=== PATIENT | female | born 1940 | race Caucasian/White ===

== ENCOUNTER 2020-03-03 14:09 | Outpatient (REF) | payer MEDICARE, OTHER, SELFPAY ==
[2020-03-03 14:50] LABS: MANUAL DIFF FLAG NO
[2020-03-03 14:52] LABS: Basophils Percent Auto 0.8 % (0-2); Eosinophils Absolute Auto 0.2 X10*3/uL (0.0-0.4); Eosinophils Percent Auto 4.6 % (0-4); Hematocrit 35.2 % (37-47); Imm Gran Abs Auto 0.02 X10*3/uL (0.00-0.03); Imm Gran Pct Auto 0.4 % (0.0-0.4); Immature Retic Fraction 12.9 % (3.0-15.9); Lymphocytes Absolute Auto 1.4 X10*3/uL (1.2-4.9); Lymphocytes Percent Auto 27.5 % (20-40); Mean Corpuscular HGB Conc 31.3 g/dl (31.0-35.0); Mean Corpuscular Hemoglobin 28.5 pg (27.0-33.0); Mean Corpuscular Volume 91.2 fL (80-98); Mean Platelet Volume 10.2 fL (9.4-12.3); Monocytes Absolute Auto 0.5 X10*3/uL (0.1-1.2); Monocytes Percent Auto 10.2 % (2-11); Neutrophils Absolute Auto 2.8 X10*3/uL (2.0-8.3); Neutrophils Percent Auto 56.5 % (45-73); Platelet Count 179 X10*3/uL (160-400); Red Blood Count 3.86 X10*6/uL (4.20-5.50); Red Cell Distribution Width 15.3 % (11.0-16.0); Retic HGB Equivalent 31.2 pg (30.0-35.0); Reticulocyte Percent 1.3 % (0.5-1.8); Reticulocytes Absolute 0.051 X10*6/uL (0.026-0.095)
[2020-03-03 15:17] LABS: Alanine Aminotransferase < 6 U/L (0-31); Albumin Level 3.6 g/dL (3.5-5.0); Alkaline Phosphatase 97 U/L (39-117); Anion Gap 12 (12-20); Aspartate Amino Transferase 11 U/L (5-31); Bilirubin Total 0.5 mg/dL (0.0-1.0); Blood Urea Nitrogen 18 mg/dL (9-16); Calcium 8.8 mg/dL (8.4-10.2); Carbon Dioxide 28 mmol/L (22-29); Chloride 105 mmol/L (96-108); Cholesterol 178 mg/dL; Estimated Glomerular Filt Rate > 60; Glucose Random 135 mg/dL (60-115); HDL Cholesterol 44 mg/dL; Iron 37 mcg/dL (30-160); LDL Cholesterol Calculated 94 mg/dl; Percent Iron Saturation 14 % (15-50); Potassium 4.1 mmol/l (3.3-5.1); Sodium 141 mmol/L (135-145); Total Iron Binding Capacity 259 mcg/dL (228-428); Total Protein 7.8 g/dL (6.5-8.0); Triglycerides 200 mg/dL; Unsaturated Iron Binding 222 ug/dL
[2020-03-03 15:23] LABS: Estimated Average Glucose 117 mg/dL; Hemoglobin A1c % 5.7 %
[2020-03-03 15:35] LABS: Ferritin 65 ng/mL (10-250); Free T4 (Free Thyroxine) 1.24 ng/dL (0.71-1.85); Thyroid Stimulating Hormone 0.93 uIU/mL (0.32-4.0); Vitamin D 25-OH Total 15.2 ng/mL (>30)
[2020-03-03 15:45] LABS: Folate 11.5 ng/mL (> or = 4.0); Vitamin B12 228 pg/mL (200-900)
== END 2020-03-03 14:10 | disposition home or self-care (01) ==
LOC: HO.LAB 14:09
PROVIDERS: PCP Internal Medicine; Visit Provider Internal Medicine
DX: E11.65 Type 2 diabetes mellitus with hyperglycemia (principal); D64.9 Anemia, unspecified; E78.00 Pure hypercholesterolemia, unspecified; I48.0 Paroxysmal atrial fibrillation
CPT/HCPCS: 36415; 80053; 80061; 82306; 82607; 82728; 82746; 83036; 83540; 84439; 84443; 85025; 85045

== ENCOUNTER 2020-05-16 20:56 | Inpatient (IN) | payer MEDICARE, OTHER, SELFPAY ==
--- NOTE | 2020-05-16 | ECG_ITS ---
Test Reason : SOB Blood Pressure : / mmHG Vent. Rate : 107 BPM Atrial Rate : 093 BPM P-R Int : 000 ms QRS Dur : 138 ms QT Int : 334 ms P-R-T Axes : 000 100 -42 degrees QTc Int : 445 ms Atrial fibrillation with rapid ventricular response Right bundle branch block T wave abnormality, consider inferior ischemia Abnormal ECG When compared with ECG of 09-SEP-2019 10:15, Vent. rate has increased BY 38 BPM Referred By: Moo Magaña Electronically Signed By:Carmelo Andrews
--- NOTE | ~2020-05-16 | XR_ITS ---
EXAMINATION: XR CHEST CLINICAL INFORMATION: Shortness of breath COMPARISON: 07/30/2018 TECHNIQUE: Frontal view of the chest was obtained. FINDINGS: Again seen is cardiomegaly. Central pulmonary vasculature remains prominent. There are increased interstitial markings compared with the prior exam and increased peribronchial cuffing. These may represent CHF with interstitial edema. However, I would suspect pleural effusions might be present which I do not see. Other findings such as infectious infiltrates may also be considered. Severe degenerative changes are once again seen in both shoulders as well as the spine. XR/XR chest 1V IMPRESSION: Cardiomegaly with prominent central pulmonary vasculature and interstitial thickening raising the question of CHF. Other causes of infiltrate such as infectious would be an alternate explanation.
[2020-05-16 21:19] VITALS: BP 160/118; BP 180/74; PULSE 106; PULSE 113; RESP 22; TEMP 37.1; O2SAT 94; O2SAT 97; BMI 34.7
[2020-05-16 21:26] VITALS: TEMP 38.8
[2020-05-16 21:30] VITALS: O2SAT 97
--- NOTE | 2020-05-16 21:32 | ED_ITS ---
HPI - General Adult General Chief complaint: Upper Respiratory Symptoms Stated complaint: SOB Time Seen by Provider: 05/16/20 21:25 Source: patient and EMS Mode of arrival: EMS Limitations: no limitations History of Present Illness HPI narrative: 80-year-old female came in by ambulance for evaluation of chills. Patient after eating her dinner cheeseburger, started feel freezing cold and chills, patient felt her forehead warm, slightly shortness of breath, no chest pain, no abdominal pain, no nausea, no vomiting, no diarrhea. Patient had 2 doses of vaccinations for COVID-19 about 2 weeks ago. Patient declined any sick contact, patient declined also any history of similar presentation in the past. Patient is known history of hyper tension/atrial fibrillation on Coumadin. Related Data Home Medications Medication Instructions Recorded Confirmed amlodipine 5 mg tablet 5 mg PO DAILY 11/27/19 03/03/20 atenolol 50 mg tablet 50 mg PO DAILY 11/27/19 03/03/20 hydroxychloroquine 200 mg tablet 200 mg PO BID 11/27/19 03/03/20 infliximab 100 mg intravenous 100 mg IV Q6W ea 11/27/19 03/03/20 solution lisinopril 40 mg tablet 40 mg PO DAILY 11/27/19 03/03/20 metformin 500 mg tablet 500 mg PO BID 11/27/19 03/03/20 methotrexate sodium 2.5 mg tablet 2.5 mg PO QWEEK 11/27/19 03/03/20 pravastatin 10 mg tablet 10 mg PO BEDTIME 11/27/19 03/03/20 sertraline 50 mg tablet 50 mg PO DAILY 11/27/19 03/03/20 Previous Rx's Medication Instructions Recorded warfarin 1 mg tablet 1 mg PO DAILY #30 tab 01/09/20 blood sugar diagnostic #250 ea 02/29/20 Allergies Allergy/AdvReac Type Severity Reaction Status Date / Time shellfish derived Allergy Unknown itchy Verified 11/27/19 11:56 procaine [From Novocain] AdvReac Unknown makes Verified 11/27/19 11:56 patient itchy,puffy Review of Systems Review of Systems: All other systems are reviewed and are negative Constitutional: Reports as per HPI and Reports no additional constitutional complaints Eyes: Reports as per HPI and Reports no additional eye complaints Reports system reviewed and no additional complaints, except as documented Cardiovascular: Reports as per HPI and Reports no additional cardiovascular c omplaints Respiratory: Reports as per HPI and Reports no additional respiratory complaints Gastrointestinal: Reports as per HPI and Reports no additional gastrointestinal complaints Genitourinary: Reports no additional female genitourinary complaints Musculoskeletal: Reports no additional musculoskeletal complaints Skin/Breast: Reports system reviewed and no additional complaints, except as docu Psychiatric: Reports no additional psychiatric complaints Endocrine: Reports no additional endocrine complaints Hematologic/Lymphatic: Reports no additional hematologic/lymphatic complaints Allergic/Immunologic: Reports no additional allergic/immunologic complaints Reports system reviewed and no additional complaints, except as documented and Reports Abnormal speech present [facility] Past Medical History Medical History Anxiety and depression Atrial fibrillation CVA (cerebral vascular accident) Hypercholesterolemia Hypertension Lumbar vertebral fracture Obesity (BMI 30-39.9) Rheumatoid arthritis TIA (transient ischemic attack) Type 2 diabetes mellitus with hyperglycemia Uterine cancer Surgical History History of appendectomy History of left knee replacement History of right knee joint replacement S/P ANTONIO-BSO Family History Family History Father Diabetes CAD (coronary artery disease) Mother Diabetes Hypertension Perforated ulcer Sister Diabetes Social History Social History Alcohol intake: never Smoking Status: Never smoker Advance Directives: No Advance Directives Information Provided: Yes Physical Exam Vital Signs: Vital Signs: Last Vital Signs Temp 101.9 F H 05/16/20 21:26 Pulse 106 H 05/16/20 21:19 Resp 22 H 05/16/20 21:19 BP 180/74 H 05/16/20 21:19 Pulse Ox 97 05/16/20 21:19 Body Mass Index 34.7 Vital signs have been reviewed as appeared to be correct. Blood pressure elevated. Heart rate is rapid. Respiration rate is elevated. With fever. Oxygen saturation normal. Appearance: Alert. Oriented X3. No acute distress. Head: Normal external exam. Normocephalic. Atraumatic. No Do signs noted. No raccoon eyes noted Eyes: PERRLA. EOMI. Conjunctiva and sclera normal. Eyelids normal. ENT: TM's Normal. Pharynx normal. Uvula midline. Moist mucous membranes. No trismus noted. No drooling noted. No muffled voice noted. Neck: Normal inspection. Neck supple. FROM. No adenopathy. Thyroid Normal. No meningeal signs. No neck mass noted. CVS: Normal heart rate and rhythm. Heart sound normal. No murmurs noted. Pulses normal throughout. Respiratory: No respiratory distress. Painless inspiration. Breath sounds normal. Mild bilateral expiratory wheezes fine basilar rales, no rhonchi noted. Chest nontender. No accessory muscle usage noted or decreased air movement noted. Abdomen: Soft and nontender. Bowel sounds normal in all 4 quadrants. No distention noted. No organomegaly noted. No visible injury noted. Back: No CVA tenderness. Full range of motion noted. Skin: Skin warm and dry. Normal skin color. Normal skin turgor. No rashes/lesions/lacerations noted. Extremities: +2 lower extremity edema. Extremities exhibit normal range of motion. Extremities nontender. Neuro: Oriented X 3. No motor deficit. No sensory deficit. Reflexes normal. Discharge Plan Discharge Prescriptions: No Action warfarin 1 mg tablet 1 mg PO DAILY Qty: 30 RF: 8 (DME) OneTouch Ultra Blue Test Strip Strip See Rx Instructions .ROUTE .MEDSUPPLY Qty: 250 RF: 3 atenolol 50 mg tablet 50 mg PO DAILY RF: 0 metformin 500 mg tablet 500 mg PO BID RF: 0 Remicade 100 mg recon soln 100 mg IV Q6W RF: 0 methotrexate sodium 2.5 mg tablet 2.5 mg PO QWEEK RF: 0 pravastatin 10 mg tablet 10 mg PO BEDTIME RF: 0 lisinopril 40 mg tablet 40 mg PO DAILY RF: 0 sertraline 50 mg tablet 50 mg PO DAILY RF: 0 hydroxychloroquine 200 mg tablet 200 mg PO BID RF: 0 amlodipine 5 mg tablet 5 mg PO DAILY RF: 0
[2020-05-16 22:00] VITALS: BP 176/89; PULSE 103; RESP 20; TEMP 38.6; O2SAT 98
--- NOTE | 2020-05-16 22:11 | PC.NURSE ---
PATIENT EKG ,PRUITT CATHETER ,BLOOD DRAW AND BLOOD CULTURE WAS DONE BY THIS PCT ,
[2020-05-16 22:12] LABS: Basophils Percent Auto 0.3 % (0-2); Eosinophils Absolute Auto 0.1 X10*3/uL (0.0-0.4); Eosinophils Percent Auto 0.6 % (0-4); Hematocrit 38.6 % (37-47); Hemoglobin 11.7 g/dl (12.0-16.0); Imm Gran Abs Auto 0.07 X10*3/uL (0.00-0.03); Imm Gran Pct Auto 0.5 % (0.0-0.4); Lymphocytes Absolute Auto 0.3 X10*3/uL (1.2-4.9); Lymphocytes Percent Auto 2.2 % (20-40); MANUAL DIFF FLAG SCAN; Mean Corpuscular HGB Conc 30.3 g/dl (31.0-35.0); Mean Corpuscular Hemoglobin 28.3 pg (27.0-33.0); Mean Corpuscular Volume 93.2 fL (80-98); Mean Platelet Volume 10.1 fL (9.4-12.3); Monocytes Absolute Auto 0.7 X10*3/uL (0.1-1.2); Monocytes Percent Auto 5.5 % (2-11); Neutrophils Absolute Auto 11.7 X10*3/uL (2.0-8.3); Neutrophils Percent Auto 90.9 % (45-73); Platelet Count 158 X10*3/uL (160-400); Red Blood Count 4.14 X10*6/uL (4.20-5.50); Red Cell Distribution Width 15.9 % (11.0-16.0); SCAN SMEAR FLAG 1; White Blood Count 12.9 X10*3/uL (4.8-10.8)
[2020-05-16 22:13] LABS: Glucose Urine UA NEG (NEG); Leukocyte Esterase Urine NEG (NEG); Nitrite Urine NEG (NEG); PH 7.5 (5.0-8.0); Specific Gravity - Urine 1.015 (1.005-1.025); Urine Blood 3+ (NEG); Urine Ketones NEG (NEG); Urine Protein NEG (NEG-TRACE)
[2020-05-16 22:16] LABS: Appearance Urine HAZY; Color Urine STRAW
[2020-05-16 22:25] LABS: Renal Epithelial Cells Urine TRACE /LPF; WBC Urine 0-2 /HPF (0-4)
[2020-05-16 22:26] LABS: Bacteria Urine 2+ /LPF
[2020-05-16 22:32] LABS: COVID-19 Test Negative (Negative); IDNOW Serial# 9DD0AD1C
[2020-05-16 22:34] LABS: SLIDE REVIEW VERIFIED
[2020-05-16] MEDS: cefTRIAXone sodium 1 GM in 0.9 % Sodium Chloride 50 ML IV (22:43)
[2020-05-16 22:44] LABS: Alanine Aminotransferase 13 U/L (0-31); Alkaline Phosphatase 120 U/L (39-117); Anion Gap 14 (12-20); Aspartate Amino Transferase 18 U/L (5-31); Bilirubin Direct 0.4 mg/dL (0.0-0.5); Bilirubin Total 0.9 mg/dL (0.0-1.0); Blood Urea Nitrogen 17 mg/dL (9-16); Calcium 8.9 mg/dL (8.4-10.2); Carbon Dioxide 26 mmol/L (22-29); Chloride 104 mmol/L (96-108); Estimated Glomerular Filt Rate > 60; Glucose Random 163 mg/dL (60-115); Lipase 34 U/L (8-78); Potassium 3.9 mmol/L (3.3-5.1); Sodium 140 mmol/L (135-145); Total Protein 8.6 g/dL (6.5-8.0)
[2020-05-16 22:47] LABS: B Type Natriuretic Peptide 298 pg/mL (<100); Troponin-I High Sensitivity 12.9 ng/L (<3.5-17.0)
--- NOTE | 2020-05-16 22:48 | PC.NURSE ---
IV ABX HUNG AND INFUSING WITHOUT DIFFICULTY. PT REPOSITIONED FOR COMFORT. VSS. AWAITING RESULTS AND MD REEVAL.
[2020-05-16 22:51] LABS: Lactic Acid 1.8 mmol/L (0.5-2.0)
[2020-05-16] MEDS: Furosemide 40 MG/4 ML VIAL IVPUSH (23:42)
[2020-05-16] MEDS: Nitroglycerin 2 % Oint 1 GM Packet 0.5 INCH TRANSDERMA (23:43)
[2020-05-17] VITALS (14 sets, daily range): BP systolic 102–138; BP diastolic 48–65; PULSE 60–100; RESP 12–20; TEMP 36.4–37.1; O2SAT 88–100
--- NOTE | 2020-05-17 00:24 | PC.NURSE ---
UNABLE TO OBTAIN MED LIST- PT DOES NOT HAVE LIST ON HER AND CANNOT RECALL ALL OF HOME MEDS.
--- NOTE | 2020-05-17 01:00 | P.HPHOSP_ITS ---
History of Present Illness Date of Service: 05/17/20 Chief Complaint: Chills and shortness of breath 80-year-old female with a past history of hypertension, diabetes AFib on Coumadin CVA, history of rheumatoid arthritis, obesity, history of perforated status post knee replacement presented to the hospital with a chief complaint of chills. Patient reports that with 2 days he has been having chills and shortness of breath and occasional cough. Presented to the hospital for further evaluation. Complains of increased shortness of breath on exertion. Denies any chest pain. Denies any numbness tingling. Review of all other systems negative except mentioned above ER course: Per ER team patient noted to have crackles on examination, chest x- ray showed findings consistent CHF possible pneumonia. Patient was given empiric antibiotics. INR pending. Initial troponin negative. EKG AFib and right bundle branch block. [facility] Medical History (Updated 05/21/20 @ 16:26 by Riccardo Page MD) (HFpEF) heart failure with preserved ejection fraction Anxiety and depression Atrial fibrillation CVA (cerebral vascular accident) Hypercholesterolemia Hypertension Lumbar vertebral fracture Obesity (BMI 30-39.9) Rheumatoid arthritis Sepsis TIA (transient ischemic attack) Type 2 diabetes mellitus with hyperglycemia Uterine cancer Family History Father Diabetes CAD (coronary artery disease) Mother Diabetes Hypertension Perforated ulcer Sister Diabetes Surgical History History of appendectomy History of left knee replacement History of right knee joint replacement S/P ANTONIO-BSO Social History Household Members: Spouse Housing: House Alcohol intake: never Smoking Status: Never smoker service: No Current occupational status: retired Meds Allergies Allergy/AdvReac Type Severity Reaction Status Date / Time shellfish derived Allergy Unknown itchy Verified 11/27/19 11:56 procaine [From Novocain] AdvReac Unknown makes Verified 11/27/19 11:56 patient itchy,puffy Active Medications: Current Medications Generic Name Dose Route Start Last Admin Trade Name Freq PRN Reason Stop Dose Admin Acetaminophen 650 mg 05/16/20 23:46 Acetaminophen 325 Mg Tablet PO Q6H PRN Pain, Mild (Pain Scale 1-3) Azithromycin 500 mg 05/17/20 01:00 Azithromycin 500 Mg Tablet PO Q24H [facility] Furosemide 40 mg 05/17/20 09:00 Furosemide 40 Mg/4 Ml Vial IVPUSH DAILY [facility] Protocol Ceftriaxone Sodium 1 gm/ 50 mls @ 100 mls/hr 05/17/20 01:00 Sodium Chloride IV Q24H [facility] Insulin Human Lispro 0 unit 05/17/20 07:30 Insulin Lispro 100 Unit/Ml 3 Ml Vial SUBCUT QIDACHS [facility] Protocol Insulin Human Lispro 0 unit 05/17/20 07:30 Insulin Lispro 100 Unit/Ml 3 Ml Vial SUBCUT QIDAS [facility] Protocol Sodium Chloride 3 ml 05/17/20 00:00 0.9 % Sodium Chloride Flush 3 Ml Syringe IVFLUSH QSHIFT [facility] Home Medications Medication Instructions Recorded Confirmed Last Taken Type atenolol 50 mg tablet 50 mg PO DAILY 11/27/19 05/18/20 Unknown History hydroxychloroquine 200 mg tablet 200 mg PO BID 11/27/19 05/18/20 05/17/20 History metformin 500 mg tablet 500 mg PO BID 11/27/19 05/18/20 Unknown History methotrexate sodium 2.5 mg tablet 2.5 mg PO QWEEK 11/27/19 05/18/20 05/17/20 History folic acid 1 mg PO DAILY 05/18/20 05/18/20 Unknown History Physical Exam Vital Signs and Narrative: Vital Signs: Last Vital Signs Temp 101.4 F H 05/16/20 22:00 Pulse 103 H 05/16/20 22:00 Resp 20 05/16/20 22:00 BP 176/89 H 05/16/20 22:00 Pulse Ox 98 05/16/20 22:00 Body Mass Index 34.7 Gen: Appears be in no acute distress; patient on supplemental oxygen. Breathing comfortably. HEENT: NCAT, Moist mucosa. Pulmonary: Course breath sounds, fair air entry; bilateral crackles at bases CVS: Normal S1-S2 Abdomen: BS+, Soft, Nontender Extremities: Warm well perfused; 1+ pitting edema Neuro: Alert and awake. Results Labs CBC and Chem 7: 05/21/20 06:28 05/21/20 06:28 Labs: Laboratory Results - last 24 hr 05/16/20 05/16/20 05/16/20 22:01 22:01 22:01 MCV MCH MCHC RDW Plt Count MPV Immature Gran % (Auto) Neut % (Auto) Lymph % (Auto) Andrew % (Auto) Eos % (Auto) Baso % (Auto) Lymph # (Auto) Andrew # (Auto) Eos # (Auto) Baso # (Auto) Abs Immat Gran (auto) Absolute Neuts (auto) Absolute Nucleated RBC Nucleated RBC % (auto) Smear Tech's Comments Anion Gap 14 Estim Creat Clear Calc 57.0 Estimated GFR > 60 Random Glucose 163 H Lactic Acid 1.8 Calcium 8.9 Total Bilirubin 0.9 Direct Bilirubin 0.4 AST 18 D ALT 13 Alkaline Phosphatase 120 H D Troponin I High Sens 12.9 B-Natriuretic Peptide 298 H Total Protein 8.6 H Albumin 4.0 Lipase 34 Urine Color Urine Appearance Urine pH Ur Specific Arnett Urine Protein Urine Glucose (UA) Urine Ketones Urine Blood Urine Nitrite Ur Leukocyte Esterase Urine RBC Urine WBC Ur Squamous Epith Cells Ur Renal Epithelial Cell Urine Bacteria COVID-19 ([facility]ORRAINE) COVID-19 Clin Com 05/16/20 05/16/20 05/16/20 22:01 22:02 22:02 MCV 93.2 MCH 28.3 MCHC 30.3 L RDW 15.9 Plt Count 158 L MPV 10.1 Immature Gran % (Auto) 0.5 H Neut % (Auto) 90.9 H Lymph % (Auto) 2.2 L Andrew % (Auto) 5.5 Eos % (Auto) 0.6 Baso % (Auto) 0.3 Lymph # (Auto) 0.3 L Andrew # (Auto) 0.7 Eos # (Auto) 0.1 Baso # (Auto) 0.0 Abs Immat Gran (auto) 0.07 H Absolute Neuts (auto) 11.7 H Absolute Nucleated RBC 0.000 Nucleated RBC % (auto) 0.0 Smear Tech's Comments VERIFIED Anion Gap Estim Creat Clear Calc Estimated GFR Random Glucose Lactic Acid Calcium Total Bilirubin Direct Bilirubin AST ALT Alkaline Phosphatase Troponin I High Sens B-Natriuretic Peptide Total Protein Albumin Lipase Urine Color STRAW Urine Appearance HAZY Urine pH 7.5 Ur Specific Arnett 1.015 Urine Protein NEG Urine Glucose (UA) NEG Urine Ketones NEG Urine Blood 3+ H Urine Nitrite NEG Ur Leukocyte Esterase NEG Urine RBC 76-150 H Urine WBC 0-2 Ur Squamous Epith Cells NONE Ur Renal Epithelial Cell TRACE Urine Bacteria 2+ COVID-19 (LORRAINE) Negative COVID-19 Clin Com See Note Imaging Radiologist's Impressions: Impressions Chest X-Ray 05/16/20 21:25 IMPRESSION: Cardiomegaly with prominent central pulmonary vasculature and interstitial thickening raising the question of CHF. Other causes of infiltrate such as infectious would be an alternate explanation. Assessment and Plan (1) CHF (congestive heart failure): Status: Inactive 80-year-old female with a past medical history of hypertension, hyperlipidemia, diabetes, AFib on Coumadin, CVA, rheumatoid arthritis, anxiety, depression, osteoarthritis status post knee replacement presented the chief complaint of chills/shortness of breath. Pneumonia: Continue ceftriaxone azithromycin. Follow up cultures. COVID-19 negative. Lactate within normal limits. Patient was mildly tachycardic and noted leukocytosis. CHF: Continue the patient on Lasix 40 IV. Daily weights and I's and O's. Cardiology consult. Echocardiogram. Negative follow-up troponin pending. ProBNP is 298. Patient is obese. History of AFib: Patient on Coumadin at home. Supratherapeutic INR: INR is 5.1 Denies any signs of bleeding. Hold Coumadin Diabetes: Insulin sliding scale. All chronic conditions including hypertension hyperlipidemia/rheumatoid arthritis; continue home medications. Medication Reconciliation: Patient unable to recall medications. Will defer to a.m. team to touch base with the patient's /PCP in the morning med reconciliation. DVT prophylaxis: Patient on Coumadin Code status: Full code
--- NOTE | 2020-05-17 01:48 | PC.NURSE ---
PT REPOSITIONED TO SIDE FOR COMFORT. VSS. AWAITING BED ASSIGNMENT FOR ADMISSION. AWARE OF PLAN OF CARE.
[2020-05-17 02:03] LABS: Prothrombin Time 61.2 SEC (10.8-13.0)
[2020-05-17 02:08] LABS: INTERNATIONAL NORM RATIO 5.1 (0.9-1.1)
[2020-05-17 02:30] LABS: Troponin-I High Sensitivity 21.5 ng/L (<3.5-17.0)
[2020-05-17] MEDS: Acetaminophen 325 MG TABLET 650 MG PO ×3 (02:46→21:29)
[2020-05-17] MEDS: Azithromycin 500 MG TABLET PO (02:46)
[2020-05-17] MEDS: 0.9 % Sodium Chloride Flush 3 ML SYRINGE IVFLUSH ×3 (02:53→16:16)
[2020-05-17 07:16] LABS: Basophils Percent Auto 0.3 % (0-2); Eosinophils Percent Auto 0.2 % (0-4); Hematocrit 31.9 % (37-47); Imm Gran Abs Auto 0.13 X10*3/uL (0.00-0.03); Imm Gran Pct Auto 0.9 % (0.0-0.4); Lymphocytes Absolute Auto 0.7 X10*3/uL (1.2-4.9); Lymphocytes Percent Auto 4.9 % (20-40); MANUAL DIFF FLAG SCAN; Mean Corpuscular HGB Conc 31.3 g/dl (31.0-35.0); Mean Corpuscular Hemoglobin 28.5 pg (27.0-33.0); Mean Corpuscular Volume 90.9 fL (80-98); Mean Platelet Volume 10.1 fL (9.4-12.3); Monocytes Absolute Auto 0.8 X10*3/uL (0.1-1.2); Monocytes Percent Auto 5.8 % (2-11); Neutrophils Absolute Auto 12.3 X10*3/uL (2.0-8.3); Neutrophils Percent Auto 87.9 % (45-73); Platelet Count 136 X10*3/uL (160-400); Red Blood Count 3.51 X10*6/uL (4.20-5.50); Red Cell Distribution Width 15.9 % (11.0-16.0); SCAN SMEAR FLAG 1
[2020-05-17 07:24] LABS: Glucose, Whole Blood 116 mg/dL (60-115)
--- NOTE | 2020-05-17 07:41 | PC.NURSE ---
pt alert and oriented x3. verbal response and eye contact appropriate for setting. pt speaks in full sentences and able to make needs known. fine crackles in lung bases bilaterally, respiratory rate is even and effort is unlabored. pt denies feeling short of breath and denies pain with respirations at this time. heart rate and sounds normal. bilateral +1 pitting edema in both ankles and feet with slight more swelling in left ankle/foot. pedal pulses present bilaterally. pt denies any pain at this time. morning POC is 116, no insulin coverage needed. pt aware of plan of care for admission. no questions or concerns at this time. call parra in reach.
[2020-05-17 07:57] LABS: Anion Gap 10 (12-20); Blood Urea Nitrogen 18 mg/dL (9-16); Calcium 8.1 mg/dL (8.4-10.2); Carbon Dioxide 31 mmol/L (22-29); Chloride 103 mmol/L (96-108); Creatinine Clr Calc Pharmacy 62.7; Estimated Glomerular Filt Rate > 60; Glucose Random 117 mg/dL (60-115); Potassium 3.6 mmol/L (3.3-5.1); Sodium 140 mmol/L (135-145)
[2020-05-17 08:01] LABS: SLIDE REVIEW VERIFIED
[2020-05-17] MEDS: Furosemide 40 MG/4 ML VIAL IVPUSH (09:20)
--- NOTE | 2020-05-17 09:20 | PC.NURSE ---
250 cc of clear yellow urine emptied from edge bag
--- NOTE | 2020-05-17 09:42 | PC.NURSE ---
PT DESAT TO 87-88% ON RA AT REST. PLACED ON 2L NC WITH RECOVERY TO 95%
--- NOTE | 2020-05-17 10:20 | PC.NURSE ---
Pts nitro patch (2% ointment, 0.5 inch) was found on her bedside table, MD was contacted to see if it should be reapplied, Dr. Negron said to d/c the nitro patch at this time. BP 111/57, HR 70. No new orders at this time.
--- NOTE | 2020-05-17 10:24 | PC.NURSE ---
pt complaining of 7/10 headache. 650mg prn Tylenol given.
--- NOTE | 2020-05-17 11:19 | HO.PM.IMPN ---
Subjective Subjective Date of Service: 05/17/20 Interval History: Short of breath, cough Cardiovascular Cardiovascular: Reports no additional cardiovascular complaints Gastrointestinal Gastrointestinal: Reports no additional gastrointestinal complaints Physical Exam Vital Signs: Vital Signs: Last Vital Signs Temp 97.6 F 05/17/20 10:07 Pulse 75 05/17/20 11:10 Resp 16 05/17/20 11:10 BP 111/57 L 05/17/20 10:07 Pulse Ox 97 05/17/20 10:07 Body Mass Index 34.7 General: lethargic O X 3, diaphoretic, weak appearing Resp: crackles CVS: S1,S2,irregular GI: soft, non tender, non distended Neuro: motor grossly weak Psych: appropriate affect Objective Data Current Medications Generic Name Dose Route Start Last Admin Trade Name Freq PRN Reason Stop Dose Admin Acetaminophen 650 mg 05/16/20 23:46 05/17/20 10:26 Acetaminophen 325 Mg Tablet PO 650 mg Q6H PRN Administration Pain, Mild (Pain Scale 1-3) Furosemide 40 mg 05/17/20 09:00 05/17/20 09:20 Furosemide 40 Mg/4 Ml Vial IVPUSH 40 mg DAILY [facility] Administration Protocol Ceftriaxone Sodium 1 gm/ 50 mls @ 100 mls/hr 05/17/20 23:00 Sodium Chloride IV Q24H [facility] Vancomycin HCl 1,000 mg/ 270 mls @ 270 mls/hr 05/17/20 11:30 Sodium Chloride IV Q12H [facility] Insulin Human Lispro 0 unit 05/17/20 07:30 05/17/20 07:24 Insulin Lispro 100 Unit/Ml 3 Ml Vial SUBCUT Not Given QIDAS [facility] Protocol Insulin Human Lispro 0 unit 05/17/20 07:30 05/17/20 07:26 Insulin Lispro 100 Unit/Ml 3 Ml Vial SUBCUT Not Given QIDACHS [facility] Protocol Pharmacy Consult 1 each 05/17/20 11:18 Consult Rx Vancomycin Dosing MISCELLANE DAILY PRN Consult order Sodium Chloride 3 ml 05/17/20 00:00 05/17/20 07:27 0.9 % Sodium Chloride Flush 3 Ml Syringe IVFLUSH 3 ml QSHIFT [facility] Administration Labs CBC & Chem 7: 05/17/20 06:55 05/17/20 06:55 Microbiology Microbiology Results: Microbiology 05/16/20 22:01 Blood - Venous Blood Culture - Preliminary Assessment and Plan (1) Sepsis: Status: Acute (2) Bacteremia: Status: Acute (3) Pneumonia: Status: Acute (4) Acute respiratory failure with hypoxia: Status: Acute Assessment and Plan: 80F presented with cough, fever, sob sepsis poa, acute hypoxic respiratory failure due to pneumonia with bacteremia and acute chf unspecified dc azithro start vanc continue rocephin follow up cultures iv lasix, echo, cardio DM insulin afib atenolol coumadin on hold due to supratherapeutic inr, no evidence of bleeding, restart when inr<3 monitor inr htn relative hypotension, hold amlodipine, lisinopril monitor RA plaquenil hold MTX, infliximab history of CVA on coumadin (to be restarted when inr<3)
--- NOTE | 2020-05-17 11:47 | PC.NURSE ---
pt's step-daughter jerome dias ([phone]) called for an updated.
[2020-05-17 12:03] LABS: Glucose, Whole Blood 99 mg/dL (60-115)
--- NOTE | 2020-05-17 13:07 | MHC.CM.PN ---
Attempted to meet with patient in regards to discharge planning. Tourist Guide currently with patient. Will attempt to meet again. Continue to monitor for d/c needs.
[2020-05-17] MEDS: atenoloL 50 MG TABLET PO (13:51)
[2020-05-17] MEDS: vancomycin HCL 1,250 MG in 0.9 % Sodium Chloride 250 ML 270 MG IV (13:51)
--- NOTE | 2020-05-17 15:46 | MHC.CM.PN ---
Met with patient in regards to discharge planning. Patient lives with her , ambulates with walker/cane and has a DESIGN CONSULTANT through [facility]. Patient does not feel any additional services will be needed at discharge. PCP verified. HCP verified to be on file. IMM explained and signed. Patient's family will transport her home when medically stable. Continue to monitor for d/c needs.
--- NOTE | 2020-05-17 15:55 | P.CONCA_ITS ---
History of Present Illness History of Present Illness Date of Service: 05/17/20 Requesting physician: Ronnie Martin Chief complaint: CHF Narrative: 80-year-old female with medical history significant for hypertension, diabetes anticoagulation, previous stroke, rheumatoid arthritis, obesity, is replacement and chronic dyspnea. She is saying that she has been short of breath 3 months and is unable to lay flat in bed and sleeps in a recliner. The last 2 days she has worsening shortness of breath, cough and chills. With these symptoms she presented to [facility]. She has been diagnosed with pneumonia. EKG showed AFib and right bundle-branch block. She has lower extremity edema. She has orthopnea. [facility] Past Medical History Medical History (Updated 05/17/20 @ 11:21 by Giles Negron MD) Anxiety and depression Atrial fibrillation CVA (cerebral vascular accident) Hypercholesterolemia Hypertension Lumbar vertebral fracture Obesity (BMI 30-39.9) Rheumatoid arthritis Sepsis TIA (transient ischemic attack) Type 2 diabetes mellitus with hyperglycemia Uterine cancer Family History Family History Father Diabetes CAD (coronary artery disease) Mother Diabetes Hypertension Perforated ulcer Sister Diabetes Surgical History Surgical History History of appendectomy History of left knee replacement History of right knee joint replacement S/P ANTONIO-BSO Social History Social History Alcohol intake: never Smoking Status: Never smoker Advance Directives: No Advance Directives Information Provided: Yes service: No Current occupational status: retired Meds Allergies Allergy/AdvReac Type Severity Reaction Status Date / Time shellfish derived Allergy Unknown itchy Verified 11/27/19 11:56 procaine [From Novocain] AdvReac Unknown makes Verified 11/27/19 11:56 patient itchy,puffy Active Medications: Current Medications Generic Name Dose Route Start Last Admin Trade Name Freq PRN Reason Stop Dose Admin Acetaminophen 650 mg 05/16/20 23:46 05/17/20 10:26 Acetaminophen 325 Mg Tablet PO 650 mg Q6H PRN Administration Pain, Mild (Pain Scale 1-3) Atenolol 50 mg 05/17/20 11:30 05/17/20 13:51 Atenolol 50 Mg Tablet PO 50 mg DAILY [facility] Administration Protocol Furosemide 40 mg 05/17/20 09:00 05/17/20 09:20 Furosemide 40 Mg/4 Ml Vial IVPUSH 40 mg DAILY [facility] Administration Protocol Hydroxychloroquine Sulfate 200 mg 05/17/20 21:00 Hydroxychloroquine Sulfate 200 Mg Tablet PO BID [facility] Ceftriaxone Sodium 1 gm/ 50 mls @ 100 mls/hr 05/17/20 23:00 Sodium Chloride IV Q24H [facility] Vancomycin HCl 1,250 mg/ 250 mls @ 270 mls/hr 05/17/20 12:00 05/17/20 13:51 Sodium Chloride IV 270 mls/hr Q24H [facility] Administration Insulin Human Lispro 0 unit 05/17/20 07:30 05/17/20 13:10 Insulin Lispro 100 Unit/Ml 3 Ml Vial SUBCUT Not Given QIDACHS [facility] Protocol Pharmacy Consult 1 each 05/17/20 11:18 Consult Rx Vancomycin Dosing MISCELLANE DAILY PRN Consult order Sodium Chloride 3 ml 05/17/20 00:00 05/17/20 07:27 0.9 % Sodium Chloride Flush 3 Ml Syringe IVFLUSH 3 ml QSHIFT [facility] Administration Home Medications Medication Instructions Recorded Confirmed Last Taken Type amlodipine 5 mg tablet 5 mg PO DAILY 11/27/19 03/03/20 Unknown History atenolol 50 mg tablet 50 mg PO DAILY 11/27/19 03/03/20 Unknown History hydroxychloroquine 200 mg tablet 200 mg PO BID 11/27/19 05/17/20 05/17/20 History infliximab 100 mg intravenous 100 mg IV Q6W ea 11/27/19 03/03/20 Unknown History solution lisinopril 40 mg tablet 40 mg PO DAILY 11/27/19 03/03/20 Unknown History metformin 500 mg tablet 500 mg PO BID 11/27/19 03/03/20 Unknown History methotrexate sodium 2.5 mg tablet 2.5 mg PO QWEEK 11/27/19 05/17/20 05/17/20 History pravastatin 10 mg tablet 10 mg PO BEDTIME 11/27/19 03/03/20 Unknown History sertraline 50 mg tablet 50 mg PO DAILY 11/27/19 03/03/20 Unknown History Physical Exam Vital Signs: Vital Signs: Last Vital Signs Temp 98.4 F 05/17/20 13:49 Pulse 63 05/17/20 13:51 Resp 12 05/17/20 13:49 BP 127/61 05/17/20 13:51 Pulse Ox 99 05/17/20 13:49 Body Mass Index 34.7 GENERAL APPEARANCE: in no acute distress. HEENT: unremarkable. HEAD: normocephalic, atraumatic. NECK/THYROID: no carotid bruit, +jugular venous distention. SKIN: no suspicious lesions, warm and dry. HEART: no murmurs, regular rate and rhythm, S1, S2 normal. LUNGS: Bibasilar crackles. ABDOMEN: normal, bowel sounds present, soft, nontender, nondistended. EXTREMITIES: no clubbing, cyanosis, or edema. PERIPHERAL PULSES: equal. NEUROLOGIC: nonfocal, alert and oriented. PSYCH: mood/affect full range. Results Labs and Meds Result diagrams: 05/17/20 06:55 05/17/20 06:55 Lab results: Laboratory Results - last 24 hr 05/16/20 05/16/20 05/16/20 22:01 22:01 22:01 WBC RBC Hgb Hct MCV MCH MCHC RDW Plt Count MPV Immature Gran % (Auto) Neut % (Auto) Lymph % (Auto) Faulk % (Auto) Eos % (Auto) Baso % (Auto) Lymph # (Auto) Faulk # (Auto) Eos # (Auto) Baso # (Auto) Abs Immat Gran (auto) Absolute Neuts (auto) Absolute Nucleated RBC Nucleated RBC % (auto) Smear Tech's Comments PT INR Sodium 140 Potassium 3.9 Chloride 104 Carbon Dioxide 26 Anion Gap 14 BUN 17 H Creatinine 0.77 Estim Creat Clear Calc 57.0 Estimated GFR > 60 POC Glucose Random Glucose 163 H Lactic Acid 1.8 Calcium 8.9 Total Bilirubin 0.9 Direct Bilirubin 0.4 AST 18 D ALT 13 Alkaline Phosphatase 120 H D Troponin I High Sens 12.9 B-Natriuretic Peptide 298 H Total Protein 8.6 H Albumin 4.0 Lipase 34 Urine Color Urine Appearance Urine pH Ur Specific [place] Urine Protein Urine Glucose (UA) Urine Ketones Urine Blood Urine Nitrite Ur Leukocyte Esterase Urine RBC Urine WBC Ur Squamous Epith Cells Ur Renal Epithelial Cell Urine Bacteria COVID-19 ([facility]) COVID-19 Clin Com 05/16/20 05/16/20 05/16/20 22:01 22:02 22:02 WBC 12.9 H RBC 4.14 L Hgb 11.7 L Hct 38.6 MCV 93.2 MCH 28.3 MCHC 30.3 L RDW 15.9 Plt Count 158 L MPV 10.1 Immature Gran % (Auto) 0.5 H Neut % (Auto) 90.9 H Lymph % (Auto) 2.2 L Faulk % (Auto) 5.5 Eos % (Auto) 0.6 Baso % (Auto) 0.3 Lymph # (Auto) 0.3 L Faulk # (Auto) 0.7 Eos # (Auto) 0.1 Baso # (Auto) 0.0 Abs Immat Gran (auto) 0.07 H Absolute Neuts (auto) 11.7 H Absolute Nucleated RBC 0.000 Nucleated RBC % (auto) 0.0 Smear Tech's Comments VERIFIED PT INR Sodium Potassium Chloride Carbon Dioxide Anion Gap BUN Creatinine Estim Creat Clear Calc Estimated GFR POC Glucose Random Glucose Lactic Acid Calcium Total Bilirubin Direct Bilirubin AST ALT Alkaline Phosphatase Troponin I High Sens B-Natriuretic Peptide Total Protein Albumin Lipase Urine Color STRAW Urine Appearance HAZY Urine pH 7.5 Ur Specific [place] 1.015 Urine Protein NEG Urine Glucose (UA) NEG Urine Ketones NEG Urine Blood 3+ H Urine Nitrite NEG Ur Leukocyte Esterase NEG Urine RBC 76-150 H Urine WBC 0-2 Ur Squamous Epith Cells NONE Ur Renal Epithelial Cell TRACE Urine Bacteria 2+ COVID-19 ([facility]) Negative COVID-19 Clin Com See Note 05/17/20 05/17/20 05/17/20 01:36 01:36 06:55 WBC 14.0 H RBC 3.51 L Hgb 10.0 L Hct 31.9 L MCV 90.9 MCH 28.5 MCHC 31.3 RDW 15.9 Plt Count 136 L MPV 10.1 Immature Gran % (Auto) 0.9 H Neut % (Auto) 87.9 H Lymph % (Auto) 4.9 L Faulk % (Auto) 5.8 Eos % (Auto) 0.2 Baso % (Auto) 0.3 Lymph # (Auto) 0.7 L Faulk # (Auto) 0.8 Eos # (Auto) 0.0 Baso # (Auto) 0.0 Abs Immat Gran (auto) 0.13 H Absolute Neuts (auto) 12.3 H Absolute Nucleated RBC 0.000 Nucleated RBC % (auto) 0.0 Smear Tech's Comments VERIFIED PT 61.2 H INR 5.1 H* Sodium Potassium Chloride Carbon Dioxide Anion Gap BUN Creatinine Estim Creat Clear Calc Estimated GFR POC Glucose Random Glucose Lactic Acid Calcium Total Bilirubin Direct Bilirubin AST ALT Alkaline Phosphatase Troponin I High Sens 21.5 H D B-Natriuretic Peptide Total Protein Albumin Lipase Urine Color Urine Appearance Urine pH Ur Specific [place] Urine Protein Urine Glucose (UA) Urine Ketones Urine Blood Urine Nitrite Ur Leukocyte Esterase Urine RBC Urine WBC Ur Squamous Epith Cells Ur Renal Epithelial Cell Urine Bacteria COVID-19 ([facility]) COVID-19 Clin Com 05/17/20 05/17/20 05/17/20 06:55 07:20 12:00 WBC RBC Hgb Hct MCV MCH MCHC RDW Plt Count MPV Immature Gran % (Auto) Neut % (Auto) Lymph % (Auto) Faulk % (Auto) Eos % (Auto) Baso % (Auto) Lymph # (Auto) Faulk # (Auto) Eos # (Auto) Baso # (Auto) Abs Immat Gran (auto) Absolute Neuts (auto) Absolute Nucleated RBC Nucleated RBC % (auto) Smear Tech's Comments PT INR Sodium 140 Potassium 3.6 Chloride 103 Carbon Dioxide 31 H Anion Gap 10 L BUN 18 H Creatinine 0.70 Estim Creat Clear Calc 62.7 Estimated GFR > 60 POC Glucose 116 H 99 Random Glucose 117 H Lactic Acid Calcium 8.1 L D Total Bilirubin Direct Bilirubin AST ALT Alkaline Phosphatase Troponin I High Sens B-Natriuretic Peptide Total Protein Albumin Lipase Urine Color Urine Appearance Urine pH Ur Specific [place] Urine Protein Urine Glucose (UA) Urine Ketones Urine Blood Urine Nitrite Ur Leukocyte Esterase Urine RBC Urine WBC Ur Squamous Epith Cells Ur Renal Epithelial Cell Urine Bacteria COVID-19 ([facility]) COVID-19 Clin Com Imaging Radiologist's impression: Impressions Chest X-Ray 05/16/20 21:25 IMPRESSION: Cardiomegaly with prominent central pulmonary vasculature and interstitial thickening raising the question of CHF. Other causes of infiltrate such as infectious would be an alternate explanation. Assessment and Plan (1) Pneumonia: Status: Acute (2) CHF (congestive heart failure): Status: Acute (3) Atrial fibrillation: Qualifiers: Atrial fibrillation type: paroxysmal Qualified Code(s): I48.0 - Paroxysmal atrial fibrillation Status: Acute 80-year-old female presenting with cough chills and worsening shortness of breath. She has been diagnosed with pneumonia and is on antibiotics. She has been experiencing approximately 3 months history of orthopnea and has been sleeping in recliner. Clinically volume overloaded. Agree with IV diuretics. She has chronic atrial fibrillation. She is on anticoagulation with Coumadin. Blood pressure control is good. She will need echocardiography on Tuesday. Thank you for allowing me to participate in the care of your patient. Please feel free to contact me if you have any questions.
[2020-05-17 16:22] LABS: Glucose, Whole Blood 96 mg/dL (60-115)
--- NOTE | 2020-05-17 17:19 | PC.NURSE ---
Pt moved into hospital bed and positioned to R lateral side. Pt is in no apparent distress, rr even and unlabored, offering no complaints. Slight redness on buttock. edge draining clear, yellow urine
[2020-05-17] MEDS: Hydroxychloroquine Sulfate 200 MG TABLET PO (21:29)
[2020-05-17 22:15] LABS: Glucose, Whole Blood 113 mg/dL (60-115)
[2020-05-17] MEDS: cefTRIAXone sodium 1 GM in 0.9 % Sodium Chloride 50 ML IV (23:03)
[2020-05-18] VITALS (8 sets, daily range): BP systolic 151–168; BP diastolic 69–86; PULSE 60–74; RESP 16–20; TEMP 36.3–36.6; O2SAT 96–99
[2020-05-18] MEDS: 0.9 % Sodium Chloride Flush 3 ML SYRINGE IVFLUSH ×4 (01:55→23:46)
[2020-05-18 07:09] LABS: MANUAL DIFF FLAG NO
[2020-05-18 07:18] LABS: Basophils Percent Auto 0.5 % (0-2); Eosinophils Absolute Auto 0.2 X10*3/uL (0.0-0.4); Eosinophils Percent Auto 3.8 % (0-4); Hematocrit 33.4 % (37-47); Hemoglobin 10.2 g/dl (12.0-16.0); Imm Gran Abs Auto 0.02 X10*3/uL (0.00-0.03); Imm Gran Pct Auto 0.4 % (0.0-0.4); Lymphocytes Percent Auto 17.2 % (20-40); Mean Corpuscular HGB Conc 30.5 g/dl (31.0-35.0); Mean Corpuscular Volume 91.8 fL (80-98); Mean Platelet Volume 10.3 fL (9.4-12.3); Monocytes Absolute Auto 0.6 X10*3/uL (0.1-1.2); Monocytes Percent Auto 11.3 % (2-11); Neutrophils Absolute Auto 3.7 X10*3/uL (2.0-8.3); Neutrophils Percent Auto 66.8 % (45-73); Platelet Count 120 X10*3/uL (160-400); Red Blood Count 3.64 X10*6/uL (4.20-5.50); Red Cell Distribution Width 15.6 % (11.0-16.0); White Blood Count 5.6 X10*3/uL (4.8-10.8)
--- NOTE | 2020-05-18 07:20 | PC.NURSE ---
pt resting in bed, on phone trying to call family. aware of plan of care and denied having any questions.
[2020-05-18 07:25] LABS: INTERNATIONAL NORM RATIO 3.5 (0.9-1.1); Prothrombin Time 41.8 SEC (10.8-13.0)
--- NOTE | 2020-05-18 07:33 | PC.NURSE ---
pt sitting up eating breakfast, pt reports poc was taken twice. no documentation of poc. poc 109
[2020-05-18 07:39] LABS: Glucose, Whole Blood 109 mg/dL (60-115)
[2020-05-18 07:51] LABS: Anion Gap 11 (12-20); Blood Urea Nitrogen 21 mg/dL (9-16); Calcium 8.9 mg/dL (8.4-10.2); Carbon Dioxide 31 mmol/L (22-29); Chloride 104 mmol/L (96-108); Creatinine Clr Calc Pharmacy 62.7; Estimated Glomerular Filt Rate > 60; Glucose Fasting 114 mg/dL (60-99); Magnesium 1.7 mg/dL (1.6-2.6); Potassium 3.8 mmol/L (3.3-5.1); Sodium 142 mmol/L (135-145)
[2020-05-18] MEDS: Hydroxychloroquine Sulfate 200 MG TABLET PO ×2 (08:24→20:21)
[2020-05-18] MEDS: atenoloL 50 MG TABLET PO (08:24)
[2020-05-18] MEDS: Furosemide 40 MG/4 ML VIAL IVPUSH (08:24)
[2020-05-18] MEDS: amLODIPine Besylate 5 MG TABLET PO (10:22)
--- NOTE | 2020-05-18 10:53 | PC.NURSE ---
lunch ordered for pt, resting comfortably in bed. aware of plan of care and denied having any questions.
--- NOTE | 2020-05-18 12:04 | P.PNCA_ITS ---
Subjective Subjective Date of Service: 05/18/20 Interval history: Breathing is improving. Blood cultures are positive for Streptococcus. Review of Systems Review of Systems Feeling better Yes all other systems are reviewed and are negative Physical Exam Vital Signs: Last Vital Signs Temp 97.8 F 05/18/20 04:00 Pulse 68 05/18/20 10:22 Resp 16 05/18/20 10:00 BP 164/74 H 05/18/20 10:22 Pulse Ox 99 05/18/20 04:00 Body Mass Index 34.7 GENERAL APPEARANCE: in no acute distress. HEENT: unremarkable. HEAD: normocephalic, atraumatic. NECK/THYROID: no carotid bruit, +jugular venous distention. SKIN: no suspicious lesions, warm and dry. HEART: no murmurs, regular rate and rhythm, S1, S2 normal. LUNGS: Bibasilar crackles. ABDOMEN: normal, bowel sounds present, soft, nontender, nondistended. EXTREMITIES: no clubbing, cyanosis, or edema. PERIPHERAL PULSES: equal. NEUROLOGIC: nonfocal, alert and oriented. PSYCH: mood/affect full range. Results Labs and Meds Result diagrams: 05/18/20 06:37 05/18/20 06:37 Lab results: Laboratory Results - last 24 hr 05/17/20 05/17/20 05/18/20 16:08 21:28 06:37 WBC 5.6 RBC 3.64 L Hgb 10.2 L Hct 33.4 L MCV 91.8 MCH 28.0 MCHC 30.5 L RDW 15.6 Plt Count 120 L MPV 10.3 Immature Gran % (Auto) 0.4 Neut % (Auto) 66.8 Lymph % (Auto) 17.2 L Crisp % (Auto) 11.3 H Eos % (Auto) 3.8 Baso % (Auto) 0.5 Lymph # (Auto) 1.0 L Crisp # (Auto) 0.6 Eos # (Auto) 0.2 Baso # (Auto) 0.0 Abs Immat Gran (auto) 0.02 Absolute Neuts (auto) 3.7 Absolute Nucleated RBC 0.000 Nucleated RBC % (auto) 0.0 PT INR Sodium Potassium Chloride Carbon Dioxide Anion Gap BUN Creatinine Estim Creat Clear Calc Estimated GFR POC Glucose 96 113 Fasting Glucose Calcium Magnesium 05/18/20 05/18/20 05/18/20 06:37 06:37 07:34 WBC RBC Hgb Hct MCV MCH MCHC RDW Plt Count MPV Immature Gran % (Auto) Neut % (Auto) Lymph % (Auto) Crisp % (Auto) Eos % (Auto) Baso % (Auto) Lymph # (Auto) Crisp # (Auto) Eos # (Auto) Baso # (Auto) Abs Immat Gran (auto) Absolute Neuts (auto) Absolute Nucleated RBC Nucleated RBC % (auto) PT 41.8 H D INR 3.5 H Sodium 142 Potassium 3.8 Chloride 104 Carbon Dioxide 31 H Anion Gap 11 L BUN 21 H Creatinine 0.70 Estim Creat Clear Calc 62.7 Estimated GFR > 60 POC Glucose 109 Fasting Glucose 114 H Calcium 8.9 D Magnesium 1.7 Progress Note: A&P Assessment and plan (1) Pneumonia: Status: Acute (2) Bacteremia: Status: Acute (3) CHF (congestive heart failure): Status: Acute Assessment and Plan: 80-year-old female with chronic atrial fibrillation on Coumadin. She is presenting with pneumonia. She has shortness of breath and orthopnea ongoing for 3 months. Clinically was volume overloaded. I am not sure if I's and O's correctly monitored or not. She is in a positive balance. She still has bibasilar crackles. I will continue 40 mg IV Lasix. If she does not improve then we may have to increase the Lasix to b.i.d.. Clinically she feels better. Her blood culture positive for group G Streptococcus. She is on antibiotics. We will echo tomorrow. Thank you for allowing me to participate in the care of your patient. Please feel free to contact me if you have any questions. Fall Risk Details Current Medications: Current Medications Generic Name Dose Route Start Last Admin Trade Name Freq PRN Reason Stop Dose Admin Acetaminophen 650 mg 05/16/20 23:46 05/17/20 21:29 Acetaminophen 325 Mg Tablet PO 650 mg Q6H PRN Administration Pain, Mild (Pain Scale 1-3) Amlodipine Besylate 5 mg 05/18/20 10:05 05/18/20 10:22 Amlodipine Besylate 5 Mg Tablet PO 5 mg DAILY [facility] Administration Protocol Atenolol 50 mg 05/17/20 11:30 05/18/20 08:24 Atenolol 50 Mg Tablet PO 50 mg DAILY [facility] Administration Protocol Furosemide 40 mg 05/17/20 09:00 05/18/20 08:24 Furosemide 40 Mg/4 Ml Vial IVPUSH 40 mg DAILY [facility] Administration Protocol Hydroxychloroquine Sulfate 200 mg 05/17/20 21:00 05/18/20 08:24 Hydroxychloroquine Sulfate 200 Mg Tablet PO 200 mg BID [facility] Administration Ceftriaxone Sodium 1 gm/ 50 mls @ 100 mls/hr 05/17/20 23:00 05/17/20 23:32 Sodium Chloride IV Infused Q24H [facility] Infusion Vancomycin HCl 1,250 mg/ 250 mls @ 270 mls/hr 05/17/20 12:00 05/17/20 15:00 Sodium Chloride IV Infused Q24H [facility] Infusion Insulin Human Lispro 0 unit 05/17/20 07:30 05/18/20 07:35 Insulin Lispro 100 Unit/Ml 3 Ml Vial SUBCUT Not Given Q[facility]ACHS [facility] Protocol Pharmacy Consult 1 each 05/17/20 11:18 Consult Rx Vancomycin Dosing MISCELLANE DAILY PRN Consult order Sodium Chloride 3 ml 05/17/20 00:00 05/18/20 07:36 0.9 % Sodium Chloride Flush 3 Ml Syringe IVFLUSH 3 ml QSHIFT [facility] Administration Time Spent With Patient Time: Total time spent is greater than 50% in coordination of care (as documented) at patient's floor/unit and/or counseling patient: Time with patient: 15 - 24 minutes
[2020-05-18 13:04] LABS: Glucose, Whole Blood 111 mg/dL (60-115)
[2020-05-18] MEDS: vancomycin HCL 1,250 MG in 0.9 % Sodium Chloride 250 ML 250 MG IV (13:50)
--- NOTE | 2020-05-18 13:53 | PC.NURSE ---
calling about med rec. pt has been admitted for almost 40 hours. call placed to pharmacy and states they cant send anyone now because there is only 2 pharmacists.
--- NOTE | 2020-05-18 14:24 | PC.NURSE ---
jerome updated about room #
--- NOTE | 2020-05-18 14:58 | HO.PM.IMPN ---
Subjective Subjective Date of Service: 05/18/20 Interval History: chf , bacteremia Review of Systems Shortness of breath, cough seems slowly improving. Denies any chest pain or palpitations. denies any fever or chills. Denies any nausea or vomiting Denies any diarrhea or abdominal pain. Physical Exam Vital Signs: Vital Signs: Last Vital Signs Temp 97.8 F 05/18/20 04:00 Pulse 68 05/18/20 10:22 Resp 16 05/18/20 10:00 BP 164/74 H 05/18/20 10:22 Pulse Ox 99 05/18/20 04:00 Body Mass Index 34.7 Physical exam: General: lethargic O X 3, somewhat sob but seems improving Resp: air entry seems improving, still has mild rales CVS: S1,S2,irregular GI: soft, non tender, non distended, bs present. Neuro: aox3 , nonfocal. Psych: appropriate affect Objective Data Current Medications Generic Name Dose Route Start Last Admin Trade Name Freq PRN Reason Stop Dose Admin Acetaminophen 650 mg 05/16/20 23:46 05/17/20 21:29 Acetaminophen 325 Mg Tablet PO 650 mg Q6H PRN Administration Pain, Mild (Pain Scale 1-3) Amlodipine Besylate 5 mg 05/18/20 10:05 05/18/20 10:22 Amlodipine Besylate 5 Mg Tablet PO 5 mg DAILY [facility] Administration Protocol Atenolol 50 mg 05/17/20 11:30 05/18/20 08:24 Atenolol 50 Mg Tablet PO 50 mg DAILY [facility] Administration Protocol Furosemide 40 mg 05/17/20 09:00 05/18/20 08:24 Furosemide 40 Mg/4 Ml Vial IVPUSH 40 mg DAILY [facility] Administration Protocol Hydroxychloroquine Sulfate 200 mg 05/17/20 21:00 05/18/20 08:24 Hydroxychloroquine Sulfate 200 Mg Tablet PO 200 mg BID [facility] Administration Ceftriaxone Sodium 1 gm/ 50 mls @ 100 mls/hr 05/17/20 23:00 05/17/20 23:32 Sodium Chloride IV Infused Q24H [facility] Infusion Vancomycin HCl 1,250 mg/ 250 mls @ 270 mls/hr 05/17/20 12:00 05/18/20 13:50 Sodium Chloride IV 250 mls/hr Q24H [facility] Administration Insulin Human Lispro 0 unit 05/17/20 07:30 05/18/20 13:05 Insulin Lispro 100 Unit/Ml 3 Ml Vial SUBCUT Not Given QIDACHS [facility] Protocol Pharmacy Consult 1 each 05/17/20 11:18 Consult Rx Vancomycin Dosing MISCELLANE DAILY PRN Consult order Sodium Chloride 3 ml 05/17/20 00:00 05/18/20 07:36 0.9 % Sodium Chloride Flush 3 Ml Syringe IVFLUSH 3 ml QSHIFT [facility] Administration Labs CBC & Chem 7: 05/18/20 06:37 05/18/20 06:37 Microbiology Microbiology Results: Microbiology 05/16/20 22:01 Blood - Venous Blood Culture - Preliminary Group g streptococcus 05/16/20 22:01 Blood - Venous Blood Culture - Preliminary No growth after 24 hours. Assessment and Plan (1) CHF (congestive heart failure): Status: Acute (2) Bacteremia: Status: Acute Assessment and Plan: 80F presented with cough, fever, sob 1.sepsis (poa) acute hypoxic respiratory failure due to pneumonia with bacteremia and acute chf unspecified bacteremia -? strep G bacteremia blood culturex1 ,2nd blood culture prelim neg intially started on vanco and ceftriaxone , will dc vanco since only strep -continue ceftraixone day2. follow up cultures 2.chf execerebation:ulclear systolic vs diastolic added echo iv lasix, echo, cardio eval Echo:in 2012 ef: 60-65% moderate lvh Modreate Mitral valve calcification. 3.DM: 110's range: Avoid insulin coverage below 200. Diabetic diet. Hemoglobin A1c. 4.afib atenolol coumadin on hold due to supratherapeutic inr(3.5), no evidence of bleeding, restart when inr<3 monitor inr 5.htn:relative hypotension, hold amlodipine, lisinopril monitor 6.RA plaquenil hold MTX, infliximab 7. history of CVA: on coumadin (to be restarted when inr<3)
[2020-05-18 16:45] LABS: Glucose, Whole Blood 135 mg/dL (60-115)
[2020-05-18] MEDS: Acetaminophen 325 MG TABLET 650 MG PO (20:21)
[2020-05-18 20:22] LABS: Glucose, Whole Blood 110 mg/dL (60-115)
[2020-05-18] MEDS: cefTRIAXone sodium 1 GM in 0.9 % Sodium Chloride 50 ML IV (23:46)
[2020-05-19] VITALS (7 sets, daily range): BP systolic 104–164; BP diastolic 55–83; PULSE 57–69; RESP 16–20; TEMP 36.3–37.1; O2SAT 93–97
[2020-05-19 06:50] LABS: Hematocrit 32.9 % (37-47); Hemoglobin 9.9 g/dl (12.0-16.0); INTERNATIONAL NORM RATIO 2.4 (0.9-1.1); Mean Corpuscular HGB Conc 30.1 g/dl (31.0-35.0); Mean Corpuscular Hemoglobin 27.9 pg (27.0-33.0); Mean Corpuscular Volume 92.7 fL (80-98); Platelet Count 122 X10*3/uL (160-400); Prothrombin Time 28.2 SEC (10.8-13.0); Red Blood Count 3.55 X10*6/uL (4.20-5.50); Red Cell Distribution Width 15.8 % (11.0-16.0); White Blood Count 5.6 X10*3/uL (4.8-10.8)
[2020-05-19 07:18] LABS: Anion Gap 10 (12-20); Blood Urea Nitrogen 21 mg/dL (9-16); Calcium 8.5 mg/dL (8.4-10.2); Carbon Dioxide 34 mmol/L (22-29); Chloride 103 mmol/L (96-108); Creatinine Clr Calc Pharmacy 68.7; Estimated Glomerular Filt Rate > 60; Glucose Random 110 mg/dL (60-115); Potassium 3.6 mmol/L (3.3-5.1); Sodium 143 mmol/L (135-145)
[2020-05-19 07:33] LABS: Estimated Average Glucose 111 mg/dL; Hemoglobin A1c % 5.5 %
--- NOTE | 2020-05-19 08:30 | CA_ITS ---
Transthoracic Echocardiogram Patient (Last, First, Middle): Yakelin Abreu E Gender: Female Date of : 1940 Age: 80 Procedure Date: 05/19/2020 Procedure Type: Transthoracic Echocardiogram Location: [facility] Height: 154.94 cm Weight: 83.46 kg BSA: 1.82 m2 Heart Rate: bpm BP: 150 / 81 mmHg Strip Roller: Referring MD: Willam Aquino MD Chain Forming Machine Operator: Scott Sandhu MD Symptoms: chf Study Quality: Fair ECG Rhythm: Atrial Fibrillation Conclusions: - 1. Normal LV systolic function with restrictive filling pattern 2. Moderately increased RV size with reduced systolic function 3. Moderate aortic stenosis 4. Severe mitral and calcification mild mitral regurgitation 5. Severely elevated right ventricular systolic pressure and right atrial pressures 6. No pericardial effusion Findings Left Ventricle Normal left ventricular size and systolic function. There is mildly increased left ventricular wall thickness. The visually estimated ejection fraction is between 60-65%. Spectral Doppler is indicative of a restrictive filling pattern. Elevated filling pressures. Evidence suggests grade III (severe) diastolic dysfunction. Right Ventricle Moderately increased right ventricular cavity size. There is mildly decreased right ventricular systolic function. Atria The left atrium is severely dilated. There is no evidence of interatrial shunt. The right atrium is severely dilated. Aortic Valve There is moderate calcification of the aortic valve. There is moderate aortic valve stenosis. The peak aortic gradient is 34 mmHg.The mean gradient is 22 mmHg. The aortic valve area is 1.20 cm2. There is no aortic valve regurgitation. Mitral Valve There is mild anterior and severe posterior mitral leaflet thickening. There is severe mitral annular calcification. There is mild mitral valve regurgitation. There is no mitral valve stenosis. Pulmonic Valve The pulmonic valve was not well visualized. Tricuspid Valve Likely normal tricuspid valve structure and function. There is mild to moderate tricuspid valve regurgitation. The right ventricular systolic pressure is 65 mmHg. Significantly elevated right atrial pressure. Severe pulmonary hypertension is present. Great Vessels All visible segments of the aorta are normal in size. The pulmonary artery was not well visualized. Venous The inferior vena cava is moderately dilated and does not collapse with inspiration. Pericardium/Pleural There is no evidence of pericardial effusion. Prior Study Comparison Changes noted compared to prior study. RV systolic pressure is significantly elevated with elevated right atrial pressures Aortic stenosis is worse Measurements 2D Linear Measurements IVSd: 1.28 0.6-0.9/0.6-1.0 cm LVIDd: 4.52 3.9-5.3/4.2-5.9 cm LVIDs: 2.76 2.0-3.6 cm LVPWd: 1.28 0.7-1.1 cm Ao Root: 3.28 2.1-3.5 cm LV Mass: 273.12 67-162/88-224 g LVOT Diam: 2.05 3.0+(-)1.3 cm Mitral Valve MV VTI: 0.46 MV Pk Samson: 1.78 MV Mn Samson: 0.79 MV Pk Grad: 12.68 MV Mn Grad: 3.39 E'Lateral: 0.10 E'Medial: 0.06 Aortic Valve AoV Pk Samson: 2.90 AoV Mn Samson: 2.23 AoV VTI: 0.72 AoV Pk Grad: 34.10 Aov Mn Grad: 21.84 HALI Cont.VTI: 1.20 LVOT LVOT Pk Samson: 0.99 LVOT Mn Samson: 0.77 LVOT VTI: 0.25 LVOT Pk Grad: 3.91 LVOT Mn Grad: 2.63 LVOT Diam: 2.05 LVOT Area: 3.29 Diastolic Function E'Medial: 0.06 E' Laterial: 0.10 Tricuspid Valve TR Pk Samson: 3.54 TR Pk Grad: 50.31 RA Press: 15.00 RVSP: 65.00 Great Vessels Aorta Ao Root-2D: 3.28 2.0-3.7 cm Pulmonary Valve PV Pk Samson: 1.02 Peak PV Grad: 4.19 Updated in Other Vendor System with Status of Final Scott Sandhu MD electronically signed on 05/19/2020 12:57:11 PM with status of Final
[2020-05-19 08:32] LABS: Glucose, Whole Blood 113 mg/dL (60-115)
[2020-05-19] MEDS: Hydroxychloroquine Sulfate 200 MG TABLET PO ×2 (08:38→21:18)
[2020-05-19] MEDS: Furosemide 40 MG/4 ML VIAL IVPUSH (08:38)
[2020-05-19] MEDS: amLODIPine Besylate 5 MG TABLET PO (08:38)
[2020-05-19] MEDS: 0.9 % Sodium Chloride Flush 3 ML SYRINGE IVFLUSH ×2 (08:38→17:06)
[2020-05-19] MEDS: atenoloL 50 MG TABLET PO (08:38)
--- NOTE | 2020-05-19 09:37 | P.CDIC_ITS ---
CDI Concurrent Query Service Date: 05/19/20 Documentation Clarification: Please clarify if you are treating a proba ble/suspected/likely or confirmed: Acute Diastolic CHF Acute Systolic CHF Acute Diastolic and Systolic CHF PLEASE DO NOT DELETE/MODIFY EXISTING CONTENT Additional information is needed in order to code to the highest accuracy and appropriate Severity of Illness (SOI). Please clarify the information noted below in your progress notes and discharge summary. Risk Factors/Clinical Indicators/Treatments 80 year old female admitted with Acute Sepsis, Acute CHF, Acute Pneumonia, Acute Respiratory Failure with Hypoxia, Supratherapeutic INR. Per MD progress note, CHF Exacerbation, unclear systolic vs diastolic No specificity documented in Cardiology consult note. CDS: Kandi Nava RN Contact Number: [phone] Please Review the information above and exercise your independent professional judgment in responding to the query. If you concur, pleas document in the PROGRESS NOTES and DISCHARGE SUMMARY. If you do not agree with the query, please document in the query above. THIS QUERY IS PART OF THE PERMANENT MEDICAL RECORD
--- NOTE | 2020-05-19 10:39 | P.PNIM_ITS ---
Subjective Subjective Date of Service: 05/19/20 Interval History: feeling better, less sob Cardiovascular Cardiovascular: Reports no additional cardiovascular complaints Gastrointestinal Gastrointestinal: Reports no additional gastrointestinal complaints Physical Exam Vital Signs: Vital Signs: Last Vital Signs Temp 98.7 F 05/19/20 08:00 Pulse 62 05/19/20 08:00 Resp 20 05/19/20 08:00 BP 104/55 L 05/19/20 08:00 Pulse Ox 93 05/19/20 08:00 Body Mass Index 34.7 General: alert O X 3, overall more energetic but still weak appearing Resp: crackles CVS: S1,S2,irregular GI: soft, non tender, non distended Neuro: motor grossly weak Psych: appropriate affect Objective Data Current Medications Generic Name Dose Route Start Last Admin Trade Name Freq PRN Reason Stop Dose Admin Acetaminophen 650 mg 05/16/20 23:46 05/18/20 20:21 Acetaminophen 325 Mg Tablet PO 650 mg Q6H PRN Administration Pain, Mild (Pain Scale 1-3) Amlodipine Besylate 5 mg 05/18/20 10:05 05/19/20 08:38 Amlodipine Besylate 5 Mg Tablet PO 5 mg DAILY KIKI Administration Protocol Atenolol 50 mg 05/17/20 11:30 05/19/20 08:38 Atenolol 50 Mg Tablet PO 50 mg DAILY [facility] Administration Protocol Furosemide 40 mg 05/17/20 09:00 05/19/20 08:38 Furosemide 40 Mg/4 Ml Vial IVPUSH 40 mg DAILY KIKI Administration Protocol Hydroxychloroquine Sulfate 200 mg 05/17/20 21:00 05/19/20 08:38 Hydroxychloroquine Sulfate 200 Mg Tablet PO 200 mg BID [facility]IKI Administration Ceftriaxone Sodium 1 gm/ 50 mls @ 100 mls/hr 05/17/20 23:00 05/19/20 00:15 Sodium Chloride IV Infused Q24H [facility] Infusion Insulin Human Lispro 0 unit 05/17/20 07:30 05/19/20 08:34 Insulin Lispro 100 Unit/Ml 3 Ml Vial SUBCUT Not Given QIDACHS [facility] Protocol Pharmacy Consult 1 each 05/17/20 11:18 Consult Rx Vancomycin Dosing MISCELLANE DAILY PRN Consult order Sodium Chloride 3 ml 05/17/20 00:00 05/19/20 08:38 0.9 % Sodium Chloride Flush 3 Ml Syringe IVFLUSH 3 ml QSHIFT [facility] Administration Labs CBC & Chem 7: 05/19/20 06:16 05/19/20 06:16 Microbiology Microbiology Results: Microbiology 05/16/20 22:01 Blood - Venous Blood Culture - Final Strep dysgalactiae ssp equisim 05/16/20 22:01 Blood - Venous Blood Culture - Preliminary No growth after 48 hours. Assessment and Plan (1) CHF (congestive heart failure): Status: Acute (2) Bacteremia: Status: Acute (3) Sepsis: Status: Acute (4) Pneumonia: Status: Acute (5) Acute respiratory failure with hypoxia: Status: Acute Assessment and Plan: 80F presented with cough, fever, sob sepsis poa, acute hypoxic respiratory failure due to pneumonia with bacteremia and acute chf unspecified (echo pending) blood cultures growing group g strep vanco dced, continue ceftriaxone IV for now continuie IV lasix, follow up echo DM insulin afib atenolol inr initialy supratherapeutic now below 3, will restart htn relative hypotension, hold amlodipine, lisinopril monitor RA plaquenil hold MTX, infliximab history of CVA on coumadin
[2020-05-19 11:23] LABS: Glucose, Whole Blood 113 mg/dL (60-115)
--- NOTE | 2020-05-19 15:50 | P.PNCA_ITS ---
Subjective Subjective Date of Service: 05/19/20 Principal diagnosis: CHF, bacteremia Interval history: Patient says she is breathing a lot better compared to when she came in. She is most bothered by the urinary catheter. She has diuresed overall of about 3 L. she continues to have some leg swelling. She continues to use oxygen. Echocardiogram shows normal LV systolic function with advanced diastolic dysfunction with RV enlargement and severely elevated RV systolic pressure and right atrial pressure. Review of Systems Constitutional: Reports no additional constitutional complaints Cardiovascular: Denies chest pain, Reports leg edema and Reports dyspnea Respiratory: Reports no additional respiratory complaints and Reports dyspnea Gastrointestinal: Reports no additional gastrointestinal complaints Genitourinary: Reports no additional female genitourinary complaints and Reports other Reports system reviewed and no additional complaints, except as documented Psychiatric: Reports no additional psychiatric complaints Endocrine: Reports no additional endocrine complaints Physical Exam Vital Signs: Last Vital Signs Temp 97.7 F 05/19/20 15:36 Pulse 67 05/19/20 15:36 Resp 19 05/19/20 15:36 BP 131/65 05/19/20 15:36 Pulse Ox 94 05/19/20 15:36 Body Mass Index 34.7 Const General: cooperative, comfortable, alert, awake and acute distress mild and respiratory Nutritional Appearance: obese Orientation/consciousness: patient oriented x3 Neck Neck: Yes trachea midline, Yes supple and Yes no JVD Resp Effort & Inspection: decreased respiratory effort Auscultation: rales and diminished lung sounds Cardio Rhythm: abnormal rhythm irregularly irregular Heart sounds: S1 normal heart sound present and Murmur heart sound present systolic mid GI Auscultation: normal bowel sounds Neuro General: patient oriented x3 Extrem General: No clubbing, No cyanosis and Yes edema Results Labs and Meds Result diagrams: 05/19/20 06:16 05/19/20 06:16 Lab results: Laboratory Results - last 24 hr 05/18/20 05/18/20 05/19/20 16:23 20:15 06:16 WBC RBC Hgb Hct MCV MCH MCHC RDW Plt Count MPV Absolute Nucleated RBC Nucleated RBC % (auto) PT 28.2 H D INR 2.4 H Sodium Potassium Chloride Carbon Dioxide Anion Gap BUN Creatinine Estim Creat Clear Calc Estimated GFR POC Glucose 135 H 110 Random Glucose Estimat Average Glucose Hemoglobin A1c % Calcium 05/19/20 05/19/20 05/19/20 06:16 06:16 06:16 WBC 5.6 RBC 3.55 L Hgb 9.9 L Hct 32.9 L MCV 92.7 MCH 27.9 MCHC 30.1 L RDW 15.8 Plt Count 122 L MPV 11.0 Absolute Nucleated RBC 0.000 Nucleated RBC % (auto) 0.0 PT INR Sodium 143 Potassium 3.6 Chloride 103 Carbon Dioxide 34 H Anion Gap 10 L BUN 21 H Creatinine 0.64 Estim Creat Clear Calc 68.7 Estimated GFR > 60 POC Glucose Random Glucose 110 Estimat Average Glucose 111 Hemoglobin A1c % 5.5 Calcium 8.5 05/19/20 05/19/20 08:07 11:14 WBC RBC Hgb Hct MCV MCH MCHC RDW Plt Count MPV Absolute Nucleated RBC Nucleated RBC % (auto) PT INR Sodium Potassium Chloride Carbon Dioxide Anion Gap BUN Creatinine Estim Creat Clear Calc Estimated GFR POC Glucose 113 113 Random Glucose Estimat Average Glucose Hemoglobin A1c % Calcium Progress Note: A&P Assessment and plan (1) CHF (congestive heart failure): Status: Acute Assessment and Plan: New onset congestive heart failure, diastolic in nature due to advanced diastolic dysfunction with atrial fibrillation and pulmonary hypertension. Clinically improving with IV diuresis. Continue IV diuresis for now. Strict intake and output chart needs to be provided. Add Aldactone 12.5 mg to her regimen. Continue to trend BMP and BNP. Continue supportive treatment for pneumonia as well as treatment of her bacteremia aggressively. (2) Atrial fibrillation: Status: Acute Assessment and Plan: Atrial fibrillation which is chronic. Currently adequately rate controlled. Continue rate control strategy. Continue anticoagulation warfarin with target INR between 2 and 3. Will follow with the patient. Fall Risk Details Current Medications: Current Medications Generic Name Dose Route Start Last Admin Trade Name Freq PRN Reason Stop Dose Admin Acetaminophen 650 mg 05/16/20 23:46 05/18/20 20:21 Acetaminophen 325 Mg Tablet PO 650 mg Q6H PRN Administration Pain, Mild (Pain Scale 1-3) Amlodipine Besylate 5 mg 05/18/20 10:05 05/19/20 08:38 Amlodipine Besylate 5 Mg Tablet PO 5 mg DAILY [facility] Administration Protocol Atenolol 50 mg 05/17/20 11:30 05/19/20 08:38 Atenolol 50 Mg Tablet PO 50 mg DAILY [facility] Administration Protocol Folic Acid 1 mg 05/20/20 09:00 Folic Acid 1 Mg Tablet PO DAILY [facility] Furosemide 40 mg 05/17/20 09:00 05/19/20 08:38 Furosemide 40 Mg/4 Ml Vial IVPUSH 40 mg DAILY [facility] Administration Protocol Hydroxychloroquine Sulfate 200 mg 05/17/20 21:00 05/19/20 08:38 Hydroxychloroquine Sulfate 200 Mg Tablet PO 200 mg BID [facility] Administration Ceftriaxone Sodium 1 gm/ 50 mls @ 100 mls/hr 05/17/20 23:00 05/19/20 00:15 Sodium Chloride IV Infused Q24H [facility] Infusion Insulin Human Lispro 0 unit 05/17/20 07:30 05/19/20 11:33 Insulin Lispro 100 Unit/Ml 3 Ml Vial SUBCUT Not Given QIDACHS [facility] Protocol Pharmacy Consult 1 each 05/17/20 11:18 Consult Rx Vancomycin Dosing MISCELLANE DAILY PRN Consult order Sodium Chloride 3 ml 05/17/20 00:00 05/19/20 08:38 0.9 % Sodium Chloride Flush 3 Ml Syringe IVFLUSH 3 ml QSHIFT [facility] Administration Warfarin Sodium 1 mg 05/20/20 09:00 Warfarin Sodium 1 Mg Tablet PO DAILY [facility] Time Spent With Patient Time: Total time spent is greater than 50% in coordination of care (as documented) at patient's floor/unit and/or counseling patient: Time with patient: 25 - 35 minutes
--- NOTE | 2020-05-19 15:59 | W.PM.IDCN ---
History of Present Illness Data of Consult Service Date: 05/19/20 Requesting physician: Giles Negron Primary Care Provider: Riccardo Page MD HPI Reason for consult: bacteremia She presents to hospital with fever and chills for a day She has no cough She has some shortness of breath but COVID negative and had vaccines two weeks ago No one else is ill Blood cultures strep dysgalactaie CXR diffuse peribronchial disease Review of Systems Review of Systems: Yes all other systems are reviewed and are negative [facility] Past Medical History Medical History Anxiety and depression Atrial fibrillation CVA (cerebral vascular accident) Hypercholesterolemia Hypertension Lumbar vertebral fracture Obesity (BMI 30-39.9) Rheumatoid arthritis Sepsis TIA (transient ischemic attack) Type 2 diabetes mellitus with hyperglycemia Uterine cancer Family History Family History Father Diabetes CAD (coronary artery disease) Mother Diabetes Hypertension Perforated ulcer Sister Diabetes Family history: reviewed and not pertinent Surgical History Surgical History History of appendectomy History of left knee replacement History of right knee joint replacement S/P ANTONIO-BSO Social History Social History Household Members: Spouse Housing: House Alcohol intake: never Smoking Status: Never smoker service: No Current occupational status: retired Meds Allergies Allergy/AdvReac Type Severity Reaction Status Date / Time shellfish derived Allergy Unknown itchy Verified 11/27/19 11:56 procaine [From Novocain] AdvReac Unknown makes Verified 11/27/19 11:56 patient itchy,puffy Active Medications: Current Medications Generic Name Dose Route Start Last Admin Trade Name Freq PRN Reason Stop Dose Admin Acetaminophen 650 mg 05/16/20 23:46 05/18/20 20:21 Acetaminophen 325 Mg Tablet PO 650 mg Q6H PRN Administration Pain, Mild (Pain Scale 1-3) Amlodipine Besylate 5 mg 05/18/20 10:05 05/19/20 08:38 Amlodipine Besylate 5 Mg Tablet PO 5 mg DAILY [facility] Administration Protocol Atenolol 50 mg 05/17/20 11:30 05/19/20 08:38 Atenolol 50 Mg Tablet PO 50 mg DAILY [facility] Administration Protocol Folic Acid 1 mg 05/20/20 09:00 Folic Acid 1 Mg Tablet PO DAILY [facility] Furosemide 40 mg 05/17/20 09:00 05/19/20 08:38 Furosemide 40 Mg/4 Ml Vial IVPUSH 40 mg DAILY [facility] Administration Protocol Hydroxychloroquine Sulfate 200 mg 05/17/20 21:00 05/19/20 08:38 Hydroxychloroquine Sulfate 200 Mg Tablet PO 200 mg BID [facility] Administration Ceftriaxone Sodium 1 gm/ 50 mls @ 100 mls/hr 05/17/20 23:00 05/19/20 00:15 Sodium Chloride IV Infused Q24H [facility] Infusion Insulin Human Lispro 0 unit 05/17/20 07:30 05/19/20 11:33 Insulin Lispro 100 Unit/Ml 3 Ml Vial SUBCUT Not Given QIDACHS [facility] Protocol Pharmacy Consult 1 each 05/17/20 11:18 Consult Rx Vancomycin Dosing MISCELLANE DAILY PRN Consult order Sodium Chloride 3 ml 05/17/20 00:00 05/19/20 08:38 0.9 % Sodium Chloride Flush 3 Ml Syringe IVFLUSH 3 ml QSHIFT [facility] Administration Warfarin Sodium 1 mg 05/20/20 09:00 Warfarin Sodium 1 Mg Tablet PO DAILY [facility] Home Medications Medication Instructions Recorded Confirmed Last Taken Type atenolol 50 mg tablet 50 mg PO DAILY 11/27/19 05/18/20 Unknown History hydroxychloroquine 200 mg tablet 200 mg PO BID 11/27/19 05/18/20 05/17/20 History metformin 500 mg tablet 500 mg PO BID 11/27/19 05/18/20 Unknown History methotrexate sodium 2.5 mg tablet 2.5 mg PO QWEEK 11/27/19 05/18/20 05/17/20 History folic acid 1 mg PO DAILY 05/18/20 05/18/20 Unknown History Physical Exam Vital Signs: Vital Signs: Last Vital Signs Temp 97.7 F 05/19/20 15:36 Pulse 67 05/19/20 15:36 Resp 19 05/19/20 15:36 BP 131/65 05/19/20 15:36 Pulse Ox 94 05/19/20 15:36 Body Mass Index 34.7 Const: General: cooperative HENMT: Head: Yes normal to inspection Mouth: Normal oral and palatal mucosa present Eyes: General: appearance normal, both eyes and all related structures Resp: Effort & Inspection: normal respiratory effort Cardio: Rate: regular rate GI: Palpation (GI): Soft to palpation and nontender : General: Yes no CVA tenderness Back/Spine/Pelvis: Back: no CVA tenderness Extrem: General: Yes normal to inspection Results Labs CBC & Chem 7: 05/19/20 06:16 05/19/20 06:16 Labs: Short CBC 05/19/20 Range/Units 06:16 WBC 5.6 (4.8-10.8) X10*3/uL Hgb 9.9 L (12.0-16.0) g/dl Hct 32.9 L (37-47) % Plt Count 122 L (160-400) X10*3/uL BMP 05/19/20 06:16 Sodium 143 Potassium 3.6 Chloride 103 Carbon Dioxide 34 H BUN 21 H Creatinine 0.64 Calcium 8.5 Microbiology Microbiology Results: Microbiology 05/16/20 22:01 Blood - Venous Blood Culture - Final Strep dysgalactiae ssp equisim 05/16/20 22:01 Blood - Venous Blood Culture - Preliminary No growth after 48 hours. Assessment and Plan (1) Pneumonia: Status: Acute (2) Bacteremia: Problem details: may be due likely due to pneumonia less likely contaminant less likely endocarditis Status: Acute Would check echo ,transthoracic Would continue Ceftriaxone Can give po Ceftin after afebrile 48 hours for total 14 days unless endocarditis suggested and then would check LEANN (3) Acute respiratory failure with hypoxia: Status: Acute
[2020-05-19 16:32] LABS: Glucose, Whole Blood 165 mg/dL (60-115)
[2020-05-19] MEDS: Insulin Lispro 100 UNIT/ML 3 ML VIAL SUBCUT (17:06)
[2020-05-19] MEDS: Acetaminophen 325 MG TABLET 650 MG PO (19:26)
[2020-05-19 20:25] LABS: Glucose, Whole Blood 119 mg/dL (60-115)
[2020-05-19] MEDS: cefTRIAXone sodium 1 GM in 0.9 % Sodium Chloride 50 ML IV (22:15)
[2020-05-20] MEDS: 0.9 % Sodium Chloride Flush 3 ML SYRINGE IVFLUSH ×4 (02:10→21:42)
[2020-05-20 03:21] VITALS: BP 155/78; PULSE 69; RESP 19; TEMP 36.4; O2SAT 97
[2020-05-20 06:38] LABS: MANUAL DIFF FLAG NO
[2020-05-20 06:57] LABS: Basophils Percent Auto 0.3 % (0-2); Eosinophils Absolute Auto 0.2 X10*3/uL (0.0-0.4); Eosinophils Percent Auto 3.5 % (0-4); Hematocrit 33.5 % (37-47); Hemoglobin 10.1 g/dl (12.0-16.0); Imm Gran Abs Auto 0.02 X10*3/uL (0.00-0.03); Imm Gran Pct Auto 0.3 % (0.0-0.4); Lymphocytes Absolute Auto 1.7 X10*3/uL (1.2-4.9); Lymphocytes Percent Auto 30.3 % (20-40); Mean Corpuscular HGB Conc 30.1 g/dl (31.0-35.0); Mean Corpuscular Hemoglobin 27.7 pg (27.0-33.0); Mean Corpuscular Volume 91.8 fL (80-98); Mean Platelet Volume 10.7 fL (9.4-12.3); Monocytes Absolute Auto 0.8 X10*3/uL (0.1-1.2); Monocytes Percent Auto 14.1 % (2-11); Neutrophils Percent Auto 51.5 % (45-73); Platelet Count 134 X10*3/uL (160-400); Red Blood Count 3.65 X10*6/uL (4.20-5.50); Red Cell Distribution Width 15.5 % (11.0-16.0); White Blood Count 5.7 X10*3/uL (4.8-10.8)
[2020-05-20 07:02] LABS: INTERNATIONAL NORM RATIO 2.1 (0.9-1.1); Prothrombin Time 25.1 SEC (10.8-13.0)
[2020-05-20 07:09] LABS: Anion Gap 12 (12-20); Blood Urea Nitrogen 22 mg/dL (9-16); Calcium 8.6 mg/dL (8.4-10.2); Carbon Dioxide 34 mmol/L (22-29); Chloride 100 mmol/L (96-108); Creatinine Clr Calc Pharmacy 63.7; Estimated Glomerular Filt Rate > 60; Glucose Fasting 102 mg/dL (60-99); Potassium 3.7 mmol/L (3.3-5.1); Sodium 142 mmol/L (135-145)
[2020-05-20 07:13] VITALS: BP 147/73; PULSE 97; RESP 18; TEMP 36.3; O2SAT 90
[2020-05-20 07:46] LABS: Glucose, Whole Blood 93 mg/dL (60-115)
[2020-05-20] MEDS: Warfarin Sodium 1 MG TABLET PO (07:56)
[2020-05-20] MEDS: Spironolactone 25 MG TABLET 12.5 MG PO (07:57)
[2020-05-20] MEDS: atenoloL 50 MG TABLET PO (07:57)
[2020-05-20] MEDS: amLODIPine Besylate 5 MG TABLET PO (07:57)
[2020-05-20] MEDS: Folic Acid 1 MG TABLET PO (07:57)
[2020-05-20] MEDS: Hydroxychloroquine Sulfate 200 MG TABLET PO ×2 (07:58→21:39)
[2020-05-20] MEDS: Furosemide 40 MG/4 ML VIAL IVPUSH (07:58)
--- NOTE | 2020-05-20 10:28 | HO.PM.IMPN ---
Subjective Subjective Date of Service: 05/20/20 Interval History: about the same as yesterday, still some shortness of breath, especially on exertion, but definite improvement from admission Cardiovascular Cardiovascular: Reports no additional cardiovascular complaints Gastrointestinal Gastrointestinal: Reports no additional gastrointestinal complaints Physical Exam Vital Signs: Vital Signs: Last Vital Signs Temp 97.3 F 05/20/20 07:13 Pulse 97 05/20/20 07:13 Resp 18 05/20/20 07:13 BP 147/73 H 05/20/20 07:13 Pulse Ox 90 L 05/20/20 07:13 Body Mass Index 34.7 General: alert O X 3, overall more energetic but still weak appearing, about the same as yesterday but less edema Resp: crackles CVS: S1,S2,irregular GI: soft, non tender, non distended Neuro: motor grossly weak Psych: appropriate affect skin: stage i buttocks (see pic) Objective Data Current Medications Generic Name Dose Route Start Last Admin Trade Name Freq PRN Reason Stop Dose Admin Acetaminophen 650 mg 05/16/20 23:46 05/19/20 19:26 Acetaminophen 325 Mg Tablet PO 650 mg Q6H PRN Administration Pain, Mild (Pain Scale 1-3) Amlodipine Besylate 5 mg 05/18/20 10:05 05/20/20 07:57 Amlodipine Besylate 5 Mg Tablet PO 5 mg DAILY [facility] Administration Protocol Atenolol 50 mg 05/17/20 11:30 05/20/20 07:57 Atenolol 50 Mg Tablet PO 50 mg DAILY [facility] Administration Protocol Folic Acid 1 mg 05/20/20 09:00 05/20/20 07:57 Folic Acid 1 Mg Tablet PO 1 mg DAILY [facility] Administration Furosemide 40 mg 05/17/20 09:00 05/20/20 07:58 Furosemide 40 Mg/4 Ml Vial IVPUSH 40 mg DAILY [facility] Administration Protocol Hydroxychloroquine Sulfate 200 mg 05/17/20 21:00 05/20/20 07:58 Hydroxychloroquine Sulfate 200 Mg Tablet PO 200 mg BID [facility] Administration Ceftriaxone Sodium 1 gm/ 50 mls @ 100 mls/hr 05/17/20 23:00 05/19/20 23:37 Sodium Chloride IV Infused Q24H [facility] Infusion Insulin Human Lispro 0 unit 05/17/20 07:30 05/20/20 07:51 Insulin Lispro 100 Unit/Ml 3 Ml Vial SUBCUT Not Given QIDACHS [facility] Protocol Pharmacy Consult 1 each 05/17/20 11:18 Consult Rx Vancomycin Dosing MISCELLANE DAILY PRN Consult order Sodium Chloride 3 ml 05/17/20 00:00 05/20/20 07:58 0.9 % Sodium Chloride Flush 3 Ml Syringe IVFLUSH 3 ml QSHIFT [facility] Administration Spironolactone 12.5 mg 05/20/20 09:00 05/20/20 07:57 Spironolactone 25 Mg Tablet PO 12.5 mg DAILY [facility] Administration Protocol Warfarin Sodium 1 mg 05/21/20 16:00 Warfarin Sodium 1 Mg Tablet PO DAILY@1600 [facility] Labs CBC & Chem 7: 05/20/20 06:16 05/20/20 06:16 Microbiology Microbiology Results: Microbiology 05/16/20 22:01 Blood - Venous Blood Culture - Final Strep dysgalactiae ssp equisim 05/16/20 22:01 Blood - Venous Blood Culture - Preliminary No growth after 48 hours. Assessment and Plan (1) CHF (congestive heart failure): Problem details: April 2020 Status: Acute (2) Bacteremia: Problem details: may be due likely due to pneumonia less likely contaminant less likely endocarditis Status: Acute (3) Sepsis: Status: Acute (4) Pneumonia: Status: Acute (5) Acute respiratory failure with hypoxia: Status: Acute Assessment and Plan: 80F presented with cough, fever, sob sepsis poa, acute hypoxic respiratory failure due to pneumonia with bacteremia and acute on chronic diastolic chf blood cultures growing group g strep continue ceftriaxone IV for now, can switch to ceftin for 2 week total on discharge continue IV lasix, added aldactone 12.5mg daily echo with normal LV function, restrictive filling pattern, grade 3 diastolic dysfunction, RV systolic dysfunction, moderate , severely increased RV and RA pressures DM insulin afib atenolol inr initialy supratherapeutic now below 3, restarted coumadin htn no longer relative hypotensive will restart amlodipine continue atenolol, aldactone monitor RA plaquenil hold MTX, infliximab history of CVA on coumadin
[2020-05-20 11:10] VITALS: BP 128/66; PULSE 85; RESP 18; TEMP 36.7; O2SAT 94
--- NOTE | 2020-05-20 11:26 | P.PNCA_ITS ---
Subjective Subjective Date of Service: 05/20/20 Principal diagnosis: CHF, bacteremia Interval history: Patient is feeling better. Has been diuresing well. Accumulated negative balance of as 6.8 L. She says that her leg edema is improving. Her breathing is improved but still short of breath. Denies any palpitations. Echocardiogram shows advanced diastolic dysfunction with severe pulmonary hypertension and significant left atrial enlargement given chronic atr ial fibrillation. Review of Systems Constitutional: Reports no additional constitutional complaints Cardiovascular: Denies chest pain, Denies palpitations and Reports dyspnea Respiratory: Reports no additional respiratory complaints and Reports dyspnea Gastrointestinal: Reports no additional gastrointestinal complaints Genitourinary: Reports no additional female genitourinary complaints Reports system reviewed and no additional complaints, except as documented Endocrine: Reports no additional endocrine complaints and Denies palpitations Hematologic/Lymphatic: Reports no additional hematologic/lymphatic complaints Physical Exam Vital Signs: Last Vital Signs Temp 98.0 F 05/20/20 11:10 Pulse 85 05/20/20 11:10 Resp 18 05/20/20 11:10 BP 128/66 05/20/20 11:10 Pulse Ox 94 05/20/20 11:10 Body Mass Index 34.7 Const General: cooperative, comfortable, alert, awake and acute distress mild and respiratory Nutritional Appearance: obese Orientation/consciousness: patient oriented x3 Neck Neck: Yes trachea midline, Yes supple and Yes JVD Resp Effort & Inspection: normal respiratory effort Auscultation: rales bilateral at the base Cardio Rhythm: abnormal rhythm irregularly irregular Heart sounds: S1 normal heart sound present, S2 normal heart sound present and Murmur heart sound present systolic mid GI Auscultation: normal bowel sounds Skin General skin exam: no rashes or lesions noted and ecchymosis Neuro General: patient oriented x3 and no focal motor deficits Extrem General: No clubbing, No cyanosis and Yes edema Results Labs and Meds Result diagrams: 05/20/20 06:16 05/20/20 06:16 Lab results: Laboratory Results - last 24 hr 05/19/20 05/19/20 05/20/20 16:08 20:19 06:16 WBC RBC Hgb Hct MCV MCH MCHC RDW Plt Count MPV Immature Gran % (Auto) Neut % (Auto) Lymph % (Auto) [place] % (Auto) Eos % (Auto) Baso % (Auto) Lymph # (Auto) [place] # (Auto) Eos # (Auto) Baso # (Auto) Abs Immat Gran (auto) Absolute Neuts (auto) Absolute Nucleated RBC Nucleated RBC % (auto) PT 25.1 H INR 2.1 H Sodium Potassium Chloride Carbon Dioxide Anion Gap BUN Creatinine Estim Creat Clear Calc Estimated GFR POC Glucose 165 H 119 H Fasting Glucose Calcium 05/20/20 05/20/20 05/20/20 06:16 06:16 07:10 WBC 5.7 RBC 3.65 L Hgb 10.1 L Hct 33.5 L MCV 91.8 MCH 27.7 MCHC 30.1 L RDW 15.5 Plt Count 134 L MPV 10.7 Immature Gran % (Auto) 0.3 Neut % (Auto) 51.5 Lymph % (Auto) 30.3 [place] % (Auto) 14.1 H Eos % (Auto) 3.5 Baso % (Auto) 0.3 Lymph # (Auto) 1.7 [place] # (Auto) 0.8 Eos # (Auto) 0.2 Baso # (Auto) 0.0 Abs Immat Gran (auto) 0.02 Absolute Neuts (auto) 3.0 Absolute Nucleated RBC 0.000 Nucleated RBC % (auto) 0.0 PT INR Sodium 142 Potassium 3.7 Chloride 100 Carbon Dioxide 34 H Anion Gap 12 BUN 22 H Creatinine 0.69 Estim Creat Clear Calc 63.7 Estimated GFR > 60 POC Glucose 93 Fasting Glucose 102 H Calcium 8.6 Progress Note: A&P Assessment and plan (1) (HFpEF) heart failure with preserved ejection fraction: Status: Acute Assessment and Plan: Heart failure preserved ejection fraction secondary to advanced diastolic dysfunction chronic atrial fibrillation with secondary pulmonary hypertension. Patient also has moderate aortic stenosis. Clinically improving but appears to be fluid overload and still has rales. Continue IV diuresis with Lasix. Aldactone was added this morning. Continue aggressive rate control. Continue strict intake and output chart. Continue to trend BMP and BNP. Heart failure education should be provided to the patient. Blood pressure is optimal at this point in time. (2) Atrial fibrillation: Status: Acute Assessment and Plan: Atrial fibrillation rate controlled. Continue rate control strategy. Continue full oral anticoagulation, currently on warfarin therapy. Maintain target INR between 2 and 3. CHADSVASc score of 7. Continue supportive care for underlying sepsis/bacteremia. Will follow with the patient. Fall Risk Details Current Medications: Current Medications Generic Name Dose Route Start Last Admin Trade Name Nelson PRN Reason Stop Dose Admin Acetaminophen 650 mg 05/16/20 23:46 05/19/20 19:26 Acetaminophen 325 Mg Tablet PO 650 mg Q6H PRN Administration Pain, Mild (Pain Scale 1-3) Amlodipine Besylate 5 mg 05/18/20 10:05 05/20/20 07:57 Amlodipine Besylate 5 Mg Tablet PO 5 mg DAILY KIKI Administration Protocol Atenolol 50 mg 05/17/20 11:30 05/20/20 07:57 Atenolol 50 Mg Tablet PO 50 mg DAILY KIKI Administration Protocol Folic Acid 1 mg 05/20/20 09:00 05/20/20 07:57 Folic Acid 1 Mg Tablet PO 1 mg DAILY KIKI Administration Furosemide 40 mg 05/17/20 09:00 05/20/20 07:58 Furosemide 40 Mg/4 Ml Vial IVPUSH 40 mg DAILY [facility] Administration Protocol Hydroxychloroquine Sulfate 200 mg 05/17/20 21:00 05/20/20 07:58 Hydroxychloroquine Sulfate 200 Mg Tablet PO 200 mg BID KIKI Administration Ceftriaxone Sodium 1 gm/ 50 mls @ 100 mls/hr 05/17/20 23:00 05/19/20 23:37 Sodium Chloride IV Infused Q24H KIKI Infusion Insulin Human Lispro 0 unit 05/17/20 07:30 05/20/20 07:51 Insulin Lispro 100 Unit/Ml 3 Ml Vial SUBCUT Not Given QIDACHS [facility] Protocol Pharmacy Consult 1 each 05/17/20 11:18 Consult Rx Vancomycin Dosing MISCELLANE DAILY PRN Consult order Sodium Chloride 3 ml 05/17/20 00:00 05/20/20 07:58 0.9 % Sodium Chloride Flush 3 Ml Syringe IVFLUSH 3 ml QSHIFT [facility] Administration Spironolactone 12.5 mg 05/20/20 09:00 05/20/20 07:57 Spironolactone 25 Mg Tablet PO 12.5 mg DAILY KIKI Administration Protocol Warfarin Sodium 1 mg 05/21/20 16:00 Warfarin Sodium 1 Mg Tablet PO DAILY@1600 KIKI Time Spent With Patient Time: Total time spent is greater than 50% in coordination of care (as documented) at patient's floor/unit and/or counseling patient: Time with patient: 25 - 35 minutes
[2020-05-20 11:41] LABS: Glucose, Whole Blood 115 mg/dL (60-115)
[2020-05-20 14:17] VITALS: BMI 34.7
[2020-05-20 15:19] VITALS: BP 115/62; PULSE 73; RESP 16; TEMP 36.3; O2SAT 93
[2020-05-20 16:25] LABS: Glucose, Whole Blood 151 mg/dL (60-115)
[2020-05-20 19:03] VITALS: BP 136/78; PULSE 70; RESP 17; TEMP 36.7; O2SAT 94
[2020-05-20 20:54] LABS: Glucose, Whole Blood 140 mg/dL (60-115)
[2020-05-20] MEDS: Acetaminophen 325 MG TABLET 650 MG PO (21:39)
[2020-05-20] MEDS: cefTRIAXone sodium 1 GM in 0.9 % Sodium Chloride 50 ML IV (22:45)
[2020-05-21] VITALS: BP 140/72; PULSE 63; RESP 18; TEMP 36.1; O2SAT 98
[2020-05-21 03:59] VITALS: BP 135/53; PULSE 62; RESP 16; TEMP 36.4; O2SAT 99
[2020-05-21] MEDS: Acetaminophen 325 MG TABLET 650 MG PO (04:06)
--- NOTE | 2020-05-21 06:18 | PC.NURSE ---
Addendum entered by Karishma Mcdaniel RN 05/21/20 06:29: Stat mag and BMP ordered Original Note: Patient had 13 beat of vtach. Pt assessed, asymptomatic. Dr. Millard notified via [employer]. No new orders at this time.
[2020-05-21 06:45] LABS: MANUAL DIFF FLAG NO
[2020-05-21 06:55] LABS: INTERNATIONAL NORM RATIO 1.8 (0.9-1.1); Prothrombin Time 21.5 SEC (10.8-13.0)
[2020-05-21 06:58] LABS: Basophils Percent Auto 0.5 % (0-2); Eosinophils Absolute Auto 0.2 X10*3/uL (0.0-0.4); Eosinophils Percent Auto 3.1 % (0-4); Hematocrit 34.3 % (37-47); Hemoglobin 10.5 g/dl (12.0-16.0); Imm Gran Abs Auto 0.03 X10*3/uL (0.00-0.03); Imm Gran Pct Auto 0.5 % (0.0-0.4); Lymphocytes Absolute Auto 1.6 X10*3/uL (1.2-4.9); Mean Corpuscular HGB Conc 30.6 g/dl (31.0-35.0); Mean Corpuscular Hemoglobin 27.8 pg (27.0-33.0); Mean Corpuscular Volume 90.7 fL (80-98); Mean Platelet Volume 10.6 fL (9.4-12.3); Monocytes Absolute Auto 0.7 X10*3/uL (0.1-1.2); Monocytes Percent Auto 11.4 % (2-11); Neutrophils Absolute Auto 3.8 X10*3/uL (2.0-8.3); Neutrophils Percent Auto 59.5 % (45-73); Platelet Count 153 X10*3/uL (160-400); Red Blood Count 3.78 X10*6/uL (4.20-5.50); Red Cell Distribution Width 15.3 % (11.0-16.0); White Blood Count 6.4 X10*3/uL (4.8-10.8)
[2020-05-21 07:23] LABS: Anion Gap 13 (12-20); Blood Urea Nitrogen 23 mg/dL (9-16); Calcium 8.6 mg/dL (8.4-10.2); Carbon Dioxide 32 mmol/L (22-29); Chloride 100 mmol/L (96-108); Creatinine Clr Calc Pharmacy 66.6; Estimated Glomerular Filt Rate > 60; Glucose Fasting 107 mg/dL (60-99); Magnesium 1.8 mg/dL (1.6-2.6); Potassium 3.9 mmol/L (3.3-5.1); Sodium 141 mmol/L (135-145)
[2020-05-21 07:24] VITALS: BP 140/73; PULSE 67; RESP 19; TEMP 36.5; O2SAT 94
[2020-05-21 07:29] LABS: Glucose, Whole Blood 103 mg/dL (60-115)
[2020-05-21 07:50] LABS: B Type Natriuretic Peptide 326 pg/mL (<100)
[2020-05-21] MEDS: atenoloL 50 MG TABLET PO (08:26)
[2020-05-21] MEDS: amLODIPine Besylate 5 MG TABLET PO (08:26)
[2020-05-21] MEDS: Spironolactone 25 MG TABLET 12.5 MG PO (08:26)
[2020-05-21] MEDS: Furosemide 40 MG/4 ML VIAL IVPUSH (08:26)
[2020-05-21] MEDS: Hydroxychloroquine Sulfate 200 MG TABLET PO (08:26)
[2020-05-21] MEDS: Folic Acid 1 MG TABLET PO (08:26)
[2020-05-21] MEDS: 0.9 % Sodium Chloride Flush 3 ML SYRINGE IVFLUSH (08:26)
--- NOTE | 2020-05-21 11:00 | P.DS_ITS ---
DS: Providers Provider Date of Service: 05/21/20 Date of admission: 05/16/20 23:45 Primary care physician: Riccardo Fletcher MD Consults: 05/17/20 00:54 Consult to Cardiology Routine Consulting Provider: Carmelo Andrews Reason for consultation: CHF 05/18/20 14:58 Consult to Infectious Diseases Routine Consulting Provider: Ayesha Peace Reason for consultation: strep grough G bacteremia Has provider been notified: No DS: Diagnosis Discharge Diagnosis (1) (HFpEF) heart failure with preserved ejection fraction: Status: Acute (2) Atrial fibrillation: Status: Acute (3) Sepsis: Status: Acute (4) Bacteremia: Status: Acute (5) Pneumonia: Status: Acute (6) Acute respiratory failure with hypoxia: Status: Acute (7) Type 2 diabetes mellitus with hyperglycemia: Status: Acute DS: Medications Discharge Medications Home Medications: Home Medications Medication Instructions Recorded Confirmed atenolol 50 mg tablet 50 mg PO DAILY 11/27/19 05/18/20 hydroxychloroquine 200 mg tablet 200 mg PO BID 11/27/19 05/18/20 metformin 500 mg tablet 500 mg PO BID 11/27/19 05/18/20 methotrexate sodium 2.5 mg tablet 2.5 mg PO QWEEK 11/27/19 05/18/20 folic acid 1 mg PO DAILY 05/18/20 05/18/20 Previous Rx's Medication Instructions Recorded warfarin 1 mg tablet 1 mg PO DAILY #30 tab 01/09/20 blood sugar diagnostic #250 ea 02/29/20 amlodipine 5 mg PO DAILY #30 tab 05/21/20 cefuroxime axetil 500 mg PO BID #18 tab 05/21/20 furosemide [Lasix] 40 mg PO QAM #30 tab 05/21/20 spironolactone 12.5 mg PO DAILY #30 tab 05/21/20 DS: Summary Hospital Course Hospital Course: Admission note HPI 80-year-old female with a past history of hypertension, diabetes AFib on Coumadin CVA, history of rheumatoid arthritis, obesity, history of perforated status post knee replacement presented to the hospital with a chief complaint of chills. Patient reports that with 2 days he has been having chills and shortness of breath and occasional cough. Presented to the hospital for further evaluation. Complains of increased shortness of breath on exertion. Denies any chest pain. Denies any numbness tingling. Review of all other systems negative except mentioned above ER course: Per ER team patient noted to have crackles on examination, chest x- ray showed findings consistent CHF possible pneumonia. Patient was given empiric antibiotics. INR pending. Initial troponin negative. EKG AFib and right bundle branch block. Hospital course Admitted to the hospital for evaluation of difficulty breathing. Found to be in acute hypoxic respiratory failure as a result of pneumonia and acute on chronic CHF exacerbation. X-ray of the chest was concerning for infiltrate along with fluid overload. Found to have elevated BNP. Treated with IV antibiotics of azithromycin and ceftriaxone. Blood cultures grew Streptococcus group G responsive to ceftriaxone. Evaluated by infectious disease specialist who recommended to finish total of 14 days of antibiotic and discharge the patient on Ceftin. She was treated as well for CHF exacerbation with IV Lasix as she was weaned off the oxygen during the hospital stay and was able to ambulate on room air with no significant complaints. Evaluated by cytology laboratory manager Dr. Sandhu who will follow her up as outpatient. Her blood pressure was noted to be on the higher end and she was started on amlodipine and spironolactone with fair response. To be followed outpatient by [facility]. To follow with Dr. Sandhu in the office. Time Spent with Patient Time attestation: Total time spent providing and/or coordinating discharge services: Discharge coordination time: Greater than 30 minutes Physical Exam Vital Signs: Vital Signs: Last Vital Signs Temp 97.7 F 05/21/20 07:24 Pulse 67 05/21/20 07:24 Resp 19 05/21/20 07:24 BP 140/73 H 05/21/20 07:24 Pulse Ox 94 05/21/20 07:24 Body Mass Index 34.7 Const: Other: Constitutional : Alert, oriented, not in distress Neck : Normal inspection, Supple Cardiovascular : RRR, S1 S2, no lower extremity edema Respiratory : Good bilateral air entry, no crackles, wheezes or rhonchi Gastrointestinal: soft, lax, Normal bowel sounds, Non tender Skin : Warm/Dry, No rash Neurological : Alert & oriented x3, No focal deficit DS: Data Data Completed and Pending Labs on day of discharge: Laboratory Results - last 24 hr 05/20/20 05/20/20 05/20/20 11:06 16:22 20:46 WBC RBC Hgb Hct MCV MCH MCHC RDW Plt Count MPV Immature Gran % (Auto) Neut % (Auto) Lymph % (Auto) [place] % (Auto) Eos % (Auto) Baso % (Auto) Lymph # (Auto) [place] # (Auto) Eos # (Auto) Baso # (Auto) Abs Immat Gran (auto) Absolute Neuts (auto) Absolute Nucleated RBC Nucleated RBC % (auto) PT INR Sodium Potassium Chloride Carbon Dioxide Anion Gap BUN Creatinine Estim Creat Clear Calc Estimated GFR POC Glucose 115 151 H 140 H Random Glucose Fasting Glucose Calcium Magnesium B-Natriuretic Peptide 05/21/20 05/21/20 05/21/20 06:28 06:28 06:28 WBC 6.4 RBC 3.78 L Hgb 10.5 L Hct 34.3 L MCV 90.7 MCH 27.8 MCHC 30.6 L RDW 15.3 Plt Count 153 L MPV 10.6 Immature Gran % (Auto) 0.5 H Neut % (Auto) 59.5 Lymph % (Auto) 25.0 [place] % (Auto) 11.4 H Eos % (Auto) 3.1 Baso % (Auto) 0.5 Lymph # (Auto) 1.6 [place] # (Auto) 0.7 Eos # (Auto) 0.2 Baso # (Auto) 0.0 Abs Immat Gran (auto) 0.03 Absolute Neuts (auto) 3.8 Absolute Nucleated RBC 0.000 Nucleated RBC % (auto) 0.0 PT 21.5 H INR 1.8 H Sodium 141 Potassium 3.9 Chloride 100 Carbon Dioxide 32 H Anion Gap 13 BUN 23 H Creatinine 0.66 Estim Creat Clear Calc 66.6 Estimated GFR > 60 POC Glucose Random Glucose Fasting Glucose 107 H Calcium 8.6 Magnesium 1.8 B-Natriuretic Peptide 05/21/20 05/21/20 05/21/20 06:28 06:28 07:22 WBC RBC Hgb Hct MCV MCH MCHC RDW Plt Count MPV Immature Gran % (Auto) Neut % (Auto) Lymph % (Auto) [place] % (Auto) Eos % (Auto) Baso % (Auto) Lymph # (Auto) [place] # (Auto) Eos # (Auto) Baso # (Auto) Abs Immat Gran (auto) Absolute Neuts (auto) Absolute Nucleated RBC Nucleated RBC % (auto) PT INR Sodium Cancelled Potassium Cancelled Chloride Cancelled Carbon Dioxide Cancelled Anion Gap Cancelled BUN Cancelled Creatinine Cancelled Estim Creat Clear Calc Cancelled Estimated GFR Cancelled POC Glucose 103 Random Glucose Cancelled Fasting Glucose Calcium Cancelled Magnesium Cancelled B-Natriuretic Peptide 326 H Preliminary micro results at discharge 05/16/20 22:01 Blood Culture - Preliminary Blood - Venous No growth after 48 hours. Discharge Plan Discharge Patient Disposition: Home Health Service Referrals: [facility] [Outside] (DISCHARGED HOME WITH NEW REFERRAL TO THE [facility] FOR NURSING FOR DIAGNOISIS SIGHN /SYMPTOM MANAGEMENT AND REINFORCEMNENT OF TEACHING , MEDICATION RECONCILATION , AND DEVELOPEMENT OF ACTION PLAN WHO TO CALL ,FOR WHAT AND WH EN PCP DR FLETCHER PATIENT INSTRUCTED TO CALL FOR POST DISCHARGE FOLLOW UP TRANSPORTATION PATIENTS PARIENT WILL SELF RESUME HER [facility] VS HAVING THE A DRAW LABS) Riccardo Fletcher MD [Primary Care Provider] - Discharge Medications: New amlodipine 5 mg Tablet 5 mg PO DAILY Qty: 30 RF: 0 spironolactone 25 mg Tablet 12.5 mg PO DAILY Qty: 30 RF: 0 cefuroxime axetil 500 mg tablet 500 mg PO BID Qty: 18 RF: 0 furosemide [Lasix] 40 mg tablet 40 mg PO QAM Qty: 30 RF: 0 Continued warfarin 1 mg tablet 1 mg PO DAILY Qty: 30 RF: 8 (DME) OneTouch Ultra Blue Test Strip Strip See Rx Instructions .ROUTE .MEDSUPPLY Qty: 250 RF: 3 folic acid 1 mg Tablet 1 mg PO DAILY RF: 0 atenolol 50 mg tablet 50 mg PO DAILY RF: 0 metformin 500 mg tablet 500 mg PO BID RF: 0 methotrexate sodium 2.5 mg tablet 2.5 mg PO QWEEK RF: 0 hydroxychloroquine 200 mg tablet 200 mg PO BID RF: 0 Discharge Orders: Discharge Order (Routine); Ordered 05/21/20 Ordered By: Terri Lopez Diet: advance to usual diet Activity on Discharge: As tolerated Stand Alone Forms: Patient Portal Discharge page Other Ambulatory Orders: Basic Metabolic Panel (Routine) Timeframe: 1 Week Facility: [facility] - Location: Laboratory Ordered By: Terri Lopez Prothrombin Time INR (Routine) Timeframe: 1 Week Facility: [facility] - Location: Laboratory Ordered By: Terri Lopez Care Plan Goals: Read below Health Concerns: Read below Plan of Treatment: You were admitted to the hospital for evaluation of difficulty breathing. Images of your chest were concerning for pneumonia and heart failure. You were treated with IV antibiotics and water pills with good response over the course of hospital stay. Your blood cultures grew bacteria called Streptococcus. Will need to finish total of 14 days of antibiotics. To continue with Ceftin for 8 more days orally after discharge. You were evaluated by cytology laboratory manager Dr. Sandhu. Started on water pills and blood pressure medications. Start amlodipine, Lasix and spironolactone as prescribed to repeat blood work next week To follow-up with Dr. Sandhu as outpatient.
--- NOTE | 2020-05-21 11:02 | MHC.CM.PN ---
NURSE CARE MANGER NOTE ELECTRONIC MEDICAL RECORD REVIEWED ALONG WITH CASE DISCUSSED WITH HOSPITALIST AND STAFF NURSE , MET WITH PATIENT SHE WILL BE DISCHARGED HOME TODAY AND WILL HAVE NEW REFERRAL TO THE [facility] FOR NURSING FOR DIAGNOSIS Assessment development of action plan of when to call ,for what , and whom to call and medication reconcilation. patient will either have the [facility] nurse draw inr labs or resumption of her [facility] cou[facility] discharge plan home with new referral to the [facility] for nursing dx assessment (see above) pcp dr virk patient to call for follow up transportation-family per discharge instructions either resumption of her [facility] coumadin clinic or the [facility] nurse will draw inr labs medicare imm updated .
--- NOTE | 2020-05-21 11:06 | W.MHC.F2F ---
Service Date Service Date: 05/21/20 Encounter Date of encounter: 05/21/20 Reasons for Services Reason for senior living: medication treatment, teach disease management and other Reason for physical therapy: home safety and mobility and therapeutic exercises Overseeing Care: Riccardo Page Homebound: Leaving the home is medically contraindicated at this time without the asist of a device and/or another person due th the listed conditions above and below. Certification: Based on the above findings, I certify that this patient is confined to the home and needs intermittent senior living care, physical therapy and/or speech therapy, or continues to need occupational therapy. The patient is under my care, and I have initiated the establishment of the plan of care. The patient will be followed by a physician who will periodically review the plan of care.
[2020-05-21 11:37] LABS: Glucose, Whole Blood 104 mg/dL (60-115)
[2020-05-21 11:50] VITALS: BP 134/71; PULSE 63; RESP 17; TEMP 37; O2SAT 95
== END 2020-05-21 13:50 | disposition home health service (06) | DRG 871 ==
LOC: HO.ED 21:20 → HO.EDOVER 05-17 00:37 → HO.S3 05-18 14:06
PROVIDERS: Internal Medicine; Admitting Provider Hospitalist; Emergency Provider Emergency Medicine; PCP Internal Medicine; Visit Provider Student in an Organized Health Care Education/Training Program
DX: A40.8 Other streptococcal sepsis (principal); J18.9 Pneumonia, unspecified organism; J96.01 Acute respiratory failure with hypoxia; I50.33 Acute on chronic diastolic (congestive) heart failure; I48.20 Chronic atrial fibrillation, unspecified; I11.0 Hypertensive heart disease with heart failure; E66.9 Obesity, unspecified; M06.9 Rheumatoid arthritis, unspecified; E11.65 Type 2 diabetes mellitus with hyperglycemia; L89.301 Pressure ulcer of unspecified buttock, stage 1; R79.1 Abnormal coagulation profile; E78.5 Hyperlipidemia, unspecified; Z68.34 Body mass index [BMI] 34.0-34.9, adult; Z86.73 Personal history of transient ischemic attack (TIA), and cerebral infarction without residual deficits; Z20.822 Contact with and (suspected) exposure to COVID-19; Z79.01 Long term (current) use of anticoagulants; Z79.84 Long term (current) use of oral hypoglycemic drugs; Z79.899 Other long term (current) drug therapy
CPT/HCPCS: 11104; 36415; 71045; 80048; 80076; 81001; 82947; 83036; 83605; 83690; 83735; 83880; 84484; 85025; 85027; 85610; 87040; 87077; 87186; 87205; 87635; 93005; 93306; 96374; 99285; J0696; J1940; J3370

== ENCOUNTER 2020-05-27 12:24 | Outpatient (REF) | payer MEDICARE, OTHER, SELFPAY ==
[2020-05-27 12:45] LABS: Prothrombin Time 77.7 SEC (10.8-13.0)
[2020-05-27 12:54] LABS: Anion Gap 15 (12-20); Blood Urea Nitrogen 33 mg/dL (9-16); Calcium 8.9 mg/dL (8.4-10.2); Carbon Dioxide 27 mmol/L (22-29); Chloride 102 mmol/L (96-108); Estimated Glomerular Filt Rate > 60; Glucose Random 110 mg/dL (60-115); Sodium 140 mmol/L (135-145)
[2020-05-27 13:16] LABS: INTERNATIONAL NORM RATIO 6.4 (0.9-1.1)
== END 2020-05-27 12:25 | disposition home or self-care (01) ==
LOC: HO.LNP 12:24
PROVIDERS: Visit Provider Internal Medicine
DX: J96.01 Acute respiratory failure with hypoxia (principal)
CPT/HCPCS: 80048; 85610

== ENCOUNTER → 2020-06-09 09:27 | Outpatient (BNVA) | payer MEDICARE, OTHER, SELFPAY | PROVIDERS: PCP Internal Medicine; Visit Provider Nurse Practitioner Family | DX: I48.0 Paroxysmal atrial fibrillation (principal); I11.0 Hypertensive heart disease with heart failure; I50.32 Chronic diastolic (congestive) heart failure; Z79.01 Long term (current) use of anticoagulants | CPT/HCPCS: 99212 ==

== ENCOUNTER 2020-07-13 12:07 | Inpatient (IN) | payer MEDICARE, OTHER, SELFPAY ==
--- NOTE | 2020-07-13 | ECG_ITS ---
Test Reason : CHEST PAIN Blood Pressure : / mmHG Vent. Rate : 090 BPM Atrial Rate : 107 BPM P-R Int : 000 ms QRS Dur : 144 ms QT Int : 438 ms P-R-T Axes : 000 095 -26 degrees QTc Int : 535 ms Atrial fibrillation Right bundle branch block T wave abnormality, consider inferior ischemia Abnormal ECG When compared with ECG of 16-MAY-2020 21:16, No significant changes seen Referred By: Generic ED Physician Electronically Signed By:CARLOS NIX
--- NOTE | ~2020-07-13 | XR_ITS ---
EXAMINATION: XR CHEST CLINICAL INFORMATION: Fever and dyspnea COMPARISON: 05/16/2020 TECHNIQUE: 2 views of the chest were obtained. FINDINGS: Stable prominence of the cardiac silhouette. Calcifications of the thoracic aorta. Prominent interstitial markings are again visualized. No large focal consolidation. No definite pleural effusion or pneumothorax. No acute osseous abnormality. Severe degenerative changes of the bilateral shoulders. Multilevel degenerative changes of the spine. XR/XR chest 2V IMPRESSION: Stable prominence of the cardiac silhouette and interstitium, that may represent mild CHF. No large focal consolidation.
--- NOTE | ~2020-07-13 | CT_ITS ---
EXAMINATION: CT ABDOMEN AND PELVIS WITH CONTRAST CLINICAL INFORMATION: Fever, left flank pain COMPARISON: 10/15/2012 TECHNIQUE: Multidetector volumetric images were obtained from the superior aspect of the liver through the pubic symphysis following administration 85 mL of Omnipaque 350 intravenous contrast. Sagittal and coronal reformatted images were obtained on the technologist's workstation. Oral contrast: No This CT examination was performed using dose optimization techniques as appropriate, variously including the following: *Automated exposure control *Adjustment of mA and/or kV according to patient size (this includes techniques or standardized protocols for targeted exams where dose is matched to indication/reason for exam; i.e. extremities or head) *Use of iterative reconstruction technique DLP: 612 mGy-cm FINDINGS: LUNG BASES: Cardiomegaly. Coronary artery calcifications. Mitral and aortic calcifications. Aortic valve calcifications. Dependent changes. LIVER, GALLBLADDER, AND BILIARY TREE: The liver is normal in size, shape, and attenuation. No focal hepatic lesion or biliary ductal dilatation is present. Cholelithiasis. No pericholecystic fluid or inflammatory change. The gallbladder wall is normal. PANCREAS: Unremarkable. SPLEEN: Increased size of an ill-defined hypodense lesion in the subcapsular lower portion of the spleen now measuring 1.5 cm. On the prior study, this was more well-defined and measuring 0.7 cm. Similar to slightly decreased splenomegaly. ADRENAL GLANDS: Stable 1.1 cm nodule probably left adrenal gland. The right adrenal gland is unremarkable. KIDNEYS AND URETERS: The kidneys are normal in size, shape, and attenuation. No hydronephrosis, hydroureter. No perinephric stranding. Decreasing size of a left lower pole cyst. Few nonobstructing right renal calculi, the largest of which measures 0.6 cm within the lower pole. Ureters are normal in course and caliber. BLADDER: Unremarkable. GASTROINTESTINAL TRACT: Diverticulosis without CT evidence of diverticulitis. The appendix was not seen; however, there are no inflammatory changes around the cecum to suggest acute appendicitis. No bowel obstruction. ABDOMINAL WALL: No significant abdominal wall hernia. LYMPH NODES: No retroperitoneal lymphadenopathy along the aorta and iliac chains bilaterally many of the lymph nodes maintaining normal morphology but are greater than 1 cm in size. VASCULAR: Atherosclerosis and tortuosity of the abdominal aorta and its branches. No abdominal aortic aneurysm. The IVC is singular and right-sided. PELVIC VISCERA: Cystectomy. OSSEOUS STRUCTURES: Chronic-appearing compression fracture L2. Degenerative changes of the spine. CT/CT abdomen pelvis w con IMPRESSION: 1. No CT evidence of acute abnormality within the abdomen or pelvis. 2. New retroperitoneal lymphadenopathy. 3. Nonobstructing right renal calculi. 4. Other chronic and nonacute findings as above.
[2020-07-13 12:09] VITALS: BP 130/61; BP 151/67; PULSE 80; PULSE 87; RESP 14; TEMP 38.7; O2SAT 97; BMI 34.9
[2020-07-13 12:24] LABS: Glucose, Whole Blood 95 mg/dL (60-115)
[2020-07-13] MEDS: Acetaminophen 325 MG TABLET 975 MG PO (13:10)
--- NOTE | 2020-07-13 13:10 | ED.FEVER ---
HPI - Fever General Chief Complaint: Fever Stated Complaint: ?uti Time Seen by Provider: 07/13/20 12:41 Source: patient and EMS Mode of arrival: EMS History of Present Illness HPI Narrative: 80-year-old female past medical history of heart failure, atrial fibrillation on Coumadin, diabetes, hypertension, hyperlipidemia, obesity, anxiety, depression presenting to the emergency department for concerns of a fever. She states over the past couple days she has felt unwell. Endorsing chills. She states she feels cold. She endorses increased urinary frequency with dysuria. She endorses shortness of breath. She does not have an associated productive cough. She also states she has intermittent left-sided chest pain that is described as a heaviness and when this pain comes on she feels short of breath. She has had this pain in the past. She endorses nausea and some episodes of diarrhea she were to eat vegetables denies associated abdominal pain. MD elicited complaint: fever Related Data Home Medications Medication Instructions Recorded Confirmed atenolol 50 mg tablet 50 mg PO DAILY 11/27/19 06/09/20 hydroxychloroquine 200 mg tablet 200 mg PO BID 11/27/19 06/09/20 metformin 500 mg tablet 500 mg PO BID 11/27/19 06/09/20 methotrexate sodium 2.5 mg tablet 2.5 mg PO QWEEK 11/27/19 06/09/20 folic acid 1 mg PO DAILY 05/18/20 06/09/20 Previous Rx's Medication Instructions Recorded blood sugar diagnostic #250 ea 02/29/20 amlodipine 5 mg PO DAILY #30 tab 05/21/20 cefuroxime axetil 500 mg PO BID #18 tab 05/21/20 furosemide [Lasix] 40 mg PO QAM #30 tab 05/21/20 spironolactone 12.5 mg PO DAILY #30 tab 05/21/20 warfarin 1 mg tablet 1 mg PO DAILY #30 tab 06/04/20 Allergies Allergy/AdvReac Type Severity Reaction Status Date / Time shellfish derived Allergy Unknown itchy Verified 06/09/20 10:21 procaine [From Novocain] AdvReac Unknown makes Verified 06/09/20 10:21 patient itchy,puffy Review of Systems Constitutional: Constitutional: Reports chills, Reports fatigue and Reports fever(s) Eyes: Eyes: Reports no additional eye complaints ENT: Denies nasal congestion and Denies sore throat Cardiovascular: Cardiovascular: Reports chest pain and Reports dyspnea Respiratory: Respiratory: Reports dyspnea Gastrointestinal: Gastrointestinal: Denies abdominal pain, Reports nausea and Denies vomiting Genitourinary: Comments: Dysuria, increased urinary frequency Musculoskeletal: Musculoskeletal: Denies back pain Neurologic: Denies confusion Psychiatric: Psychiatric: Denies confusion Endocrine: Endocrine: Reports fatigue Hematologic/Lymphatic: Hematologic/Lymphatic: Reports easy bleeding PMFSH Past Medical History Medical History (HFpEF) heart failure with preserved ejection fraction Anxiety and depression Atrial fibrillation Chronic anticoagulation CVA (cerebral vascular accident) Hypercholesterolemia Hypertension Lumbar vertebral fracture Obesity (BMI 30-39.9) Rheumatoid arthritis Sepsis TIA (transient ischemic attack) Type 2 diabetes mellitus with hyperglycemia Uterine cancer Surgical History History of appendectomy History of left knee replacement History of right knee joint replacement S/P ANTONIO-BSO Family History Family History Father Diabetes CAD (coronary artery disease) Mother Diabetes Hypertension Perforated ulcer Sister Diabetes Social History Social History Household Members: Spouse Housing: House Do you presently have visiting nurse or other home services: Yes Alcohol intake: never Patient Tobacco Use Status: Never used Tobacco Use of substances other than those prescribed or required for medical reasons: No Advance Directives: No Advance Directives Information Provided: Yes service: No Current occupational status: retired Physical Exam Vital Signs: Vital Signs: Last Vital Signs Temp 100.1 F 07/13/20 14:00 Pulse 76 07/13/20 16:00 Resp 15 07/13/20 16:00 BP 121/73 07/13/20 16:00 Pulse Ox 95 07/13/20 16:00 Body Mass Index 34.9 Const: Other: Sitting upright in the stretcher General: No confusion Orientation/consciousness: patient oriented x3 and No confusion HENMT: Head: Yes atraumatic Eyes: Pupils: Equal, round and reactive pupils present EOM: EOMs intact bilaterally Neck: Neck: Yes full ROM, Yes no meningeal signs, Yes trachea midline and Yes supple Chest: Other: No rash Chest palpation & inspection: normal inspection of the chest Resp: Effort & Inspection: able to speak in complete sentences Auscultation: clear to auscultation bilaterally Cardio: Rate: regular rate Rhythm: abnormal rhythm irregularly irregular GI: Other: Left CVA tenderness Palpation (GI): Soft to palpation Neuro: General: patient oriented x3, no meningeal signs and No confusion Cranial nerves: Yes Equal, round and reactive pupils present Extrem: Other: Peripheral edema noted, nonpitting, left lower extremity appears warm and erythematous in her tib-fib region, compartments soft, no calf tenderness, pulses intact General: Yes full ROM Psych: Appearance: grossly normal Mental Status: mental status grossly normal Course Course Course Narrative: Labs reveal elevated leukocytosis and with her symptoms concern for sepsis. IV levofloxacin was initially ordered and less than 100 cc of antibiotics when in. Her QTC is prolonged at 05:35. Levofloxacin was discontinued. IV cefepime was ordered for her pyelonephritis and left leg cellulitis. Will give her 2 g of Mag as well for her QTC prolongation. Awaiting on CT. Reevaluation(s) Reevaluation #1: CT of the abdomen does not show an acute surgical process. Her LFTs resulted that were unremarkable, total bili 1.2, AST 16, ALT 9, alk-phos 76, total protein 7.5. Her BNP was elevated at 665 with her chest x-ray showing mild CHF IV dose of Lasix was given. INR is 1.7. Lactic acid 1.2. Will plan to admit her for her left leg cellulitis and pyelonephritis.COVID negative. Will need tele monitoring. Time: 16:03 MDM - Fever MDM Narrative Medical decision making narrative: 80-year-old female presenting to the emergency department feeling on all times several days Vital significant for fever, otherwise blood pressure stable, no tachycardia Will plan for blood cultures x2. Will check basic labs to assess for leukocytosis, anemia, renal dysfunction. Will check UA for signs of infection given her dysuria and urinary frequency. Given her left CVA tenderness I am concerned for pyelonephritis with her fever, which had abdominal CT. Will check chest x-ray to RO underlying pneumonia given her report of shortness of breath. Pleural effusions could also be contributing to her shortness of breath as she does have peripheral edema and is on Lasix. Will check troponin EKG for signs of ischemia given her report of intermittent chest pain. PE is less likely as she is already anticoagulated, no tachycardia, no hypoxia. Patient is not requiring any additional respiratory support. CHF exacerbation is on the differential, we will check BNP level. Will check LFTs for hepatobiliary disease. Patient also seems to have a left lower leg cellulitis because the leg is warm and red, will treat for this as well. Her compartments are otherwise soft. No evidence of foreign bodies. No trauma to suggest underlying fracture. Lower suspicion for DVT since she is already anticoagulated and does not have calf tenderness. Will give her fever control. We will hold off on fluids since pt. has CHF and has increased risk for volume overload. Lab Data Result diagrams: 07/13/20 13:04 07/13/20 13:43 Labs: Lab Results 07/13/20 07/13/20 07/13/20 Range/Units 12:20 13:04 13:04 WBC 11.5 H (4.8-10.8) X10*3/uL RBC 4.11 L (4.20-5.50) X10*6/uL Hgb 11.9 L (12.0-16.0) g/dl Hct 37.1 (37-47) % MCV 90.3 (80-98) fL MCH 29.0 (27.0-33.0) pg MCHC 32.1 (31.0-35.0) g/dl RDW 15.7 (11.0-16.0) % Plt Count 146 L (160-400) X10*3/uL MPV 10.4 (9.4-12.3) fL Immature Gran % (Auto) 0.5 H (0.0-0.4) % Neut % (Auto) 91.2 H (45-73) % Lymph % (Auto) 3.0 L (20-40) % [place] % (Auto) 4.9 (2-11) % Eos % (Auto) 0.2 (0-4) % Baso % (Auto) 0.2 (0-2) % Lymph # (Auto) 0.3 L (1.2-4.9) X10*3/uL [place] # (Auto) 0.6 (0.1-1.2) X10*3/uL Eos # (Auto) 0.0 (0.0-0.4) X10*3/uL Baso # (Auto) 0.0 (0.0-0.2) X10*3/uL Abs Immat Gran (auto) 0.06 H (0.00-0.03) X10*3/uL Absolute Neuts (auto) 10.5 H (2.0-8.3) X10*3/uL Absolute Nucleated RBC 0.000 (0.0-0.012) X10*3/uL Nucleated RBC % (auto) 0.0 (0.0-0.2) /100WBC Smear Tech's Comments VERIFIED PT (10.8-13.0) SEC INR (0.9-1.1) Sodium (135-145) mmol/L Potassium (3.3-5.1) mmol/L Chloride (96-108) mmol/L Carbon Dioxide (22-29) mmol/L Anion Gap (12-20) BUN (9-16) mg/dL Creatinine (0.5-1.4) mg/dL Estim Creat Clear Calc Estimated GFR POC Glucose 95 (60-115) mg/dL Random Glucose (60-115) mg/dL Lactic Acid 1.2 (0.5-2.0) mmol/L Calcium (8.4-10.2) mg/dL Total Bilirubin (0.0-1.0) mg/dL Direct Bilirubin (0.0-0.5) mg/dL AST (5-31) U/L ALT (0-31) U/L Alkaline Phosphatase (39-117) U/L Troponin I High Sens (<3.5-17.0) ng/L B-Natriuretic Peptide (<100) pg/mL Total Protein (6.5-8.0) g/dL Albumin (3.5-5.0) g/dL Urine Color Urine Appearance Urine pH (5.0-8.0) Ur Specific [place] (1.005-1.025) Urine Protein (NEG-TRACE) MG/DL Urine Glucose (UA) (NEG) MG/DL Urine Ketones (NEG) MG/DL Urine Blood (NEG) Urine Nitrite (NEG) Ur Leukocyte Esterase (NEG) Urine RBC (0) /HPF Urine WBC (0-4) /HPF Ur Squamous Epith Cells /LPF Ur Renal Epithelial Cell /LPF Urine Bacteria /LPF COVID-19 ([facility]) (Negative) COVID-19 Clin Com 07/13/20 07/13/20 07/13/20 Range/Units 13:04 13:04 13:06 WBC (4.8-10.8) X10*3/uL RBC (4.20-5.50) X10*6/uL Hgb (12.0-16.0) g/dl Hct (37-47) % MCV (80-98) fL MCH (27.0-33.0) pg MCHC (31.0-35.0) g/dl RDW (11.0-16.0) % Plt Count (160-400) X10*3/uL MPV (9.4-12.3) fL Immature Gran % (Auto) (0.0-0.4) % Neut % (Auto) (45-73) % Lymph % (Auto) (20-40) % [place] % (Auto) (2-11) % Eos % (Auto) (0-4) % Baso % (Auto) (0-2) % Lymph # (Auto) (1.2-4.9) X10*3/uL [place] # (Auto) (0.1-1.2) X10*3/uL Eos # (Auto) (0.0-0.4) X10*3/uL Baso # (Auto) (0.0-0.2) X10*3/uL Abs Immat Gran (auto) (0.00-0.03) X10*3/uL Absolute Neuts (auto) (2.0-8.3) X10*3/uL Absolute Nucleated RBC (0.0-0.012) X10*3/uL Nucleated RBC % (auto) (0.0-0.2) /100WBC Smear Tech's Comments PT (10.8-13.0) SEC INR (0.9-1.1) Sodium (135-145) mmol/L Potassium (3.3-5.1) mmol/L Chloride (96-108) mmol/L Carbon Dioxide (22-29) mmol/L Anion Gap (12-20) BUN (9-16) mg/dL Creatinine (0.5-1.4) mg/dL Estim Creat Clear Calc Estimated GFR POC Glucose (60-115) mg/dL Random Glucose (60-115) mg/dL Lactic Acid (0.5-2.0) mmol/L Calcium (8.4-10.2) mg/dL Total Bilirubin (0.0-1.0) mg/dL Direct Bilirubin (0.0-0.5) mg/dL AST (5-31) U/L ALT (0-31) U/L Alkaline Phosphatase (39-117) U/L Troponin I High Sens 12.8 (<3.5-17.0) ng/L B-Natriuretic Peptide 665 H (<100) pg/mL Total Protein (6.5-8.0) g/dL Albumin (3.5-5.0) g/dL Urine Color Urine Appearance Urine pH (5.0-8.0) Ur Specific [place] (1.005-1.025) Urine Protein (NEG-TRACE) MG/DL Urine Glucose (UA) (NEG) MG/DL Urine Ketones (NEG) MG/DL Urine Blood (NEG) Urine Nitrite (NEG) Ur Leukocyte Esterase (NEG) Urine RBC (0) /HPF Urine WBC (0-4) /HPF Ur Squamous Epith Cells /LPF Ur Renal Epithelial Cell /LPF Urine Bacteria /LPF COVID-19 ([facility]) Negative (Negative) COVID-19 Clin Com See Note 07/13/20 07/13/20 07/13/20 Range/Units 13:29 13:33 13:43 WBC (4.8-10.8) X10*3/uL RBC (4.20-5.50) X10*6/uL Hgb (12.0-16.0) g/dl Hct (37-47) % MCV (80-98) fL MCH (27.0-33.0) pg MCHC (31.0-35.0) g/dl RDW (11.0-16.0) % Plt Count (160-400) X10*3/uL MPV (9.4-12.3) fL Immature Gran % (Auto) (0.0-0.4) % Neut % (Auto) (45-73) % Lymph % (Auto) (20-40) % [place] % (Auto) (2-11) % Eos % (Auto) (0-4) % Baso % (Auto) (0-2) % Lymph # (Auto) (1.2-4.9) X10*3/uL [place] # (Auto) (0.1-1.2) X10*3/uL Eos # (Auto) (0.0-0.4) X10*3/uL Baso # (Auto) (0.0-0.2) X10*3/uL Abs Immat Gran (auto) (0.00-0.03) X10*3/uL Absolute Neuts (auto) (2.0-8.3) X10*3/uL Absolute Nucleated RBC (0.0-0.012) X10*3/uL Nucleated RBC % (auto) (0.0-0.2) /100WBC Smear Tech's Comments PT 20.6 H D (10.8-13.0) SEC INR 1.7 H (0.9-1.1) Sodium 141 (135-145) mmol/L Potassium 4.5 (3.3-5.1) mmol/L Chloride 106 (96-108) mmol/L Carbon Dioxide 22 (22-29) mmol/L Anion Gap 18 (12-20) BUN 22 H (9-16) mg/dL Creatinine 0.75 (0.5-1.4) mg/dL Estim Creat Clear Calc 58.7 Estimated GFR > 60 POC Glucose (60-115) mg/dL Random Glucose 93 (60-115) mg/dL Lactic Acid (0.5-2.0) mmol/L Calcium 8.9 (8.4-10.2) mg/dL Total Bilirubin 1.2 H (0.0-1.0) mg/dL Direct Bilirubin 0.6 H (0.0-0.5) mg/dL AST 16 (5-31) U/L ALT 9 (0-31) U/L Alkaline Phosphatase 76 D (39-117) U/L Troponin I High Sens (<3.5-17.0) ng/L B-Natriuretic Peptide (<100) pg/mL Total Protein 7.5 (6.5-8.0) g/dL Albumin 3.6 (3.5-5.0) g/dL Urine Color YELLOW Urine Appearance CLEAR Urine pH 6.0 (5.0-8.0) Ur Specific [place] 1.025 (1.005-1.025) Urine Protein NEG (NEG-TRACE) MG/DL Urine Glucose (UA) NEG (NEG) MG/DL Urine Ketones 40 (NEG) MG/DL Urine Blood 2+ H (NEG) Urine Nitrite POS H (NEG) Ur Leukocyte Esterase NEG (NEG) Urine RBC 5-9 H (0) /HPF Urine WBC 5-9 H (0-4) /HPF Ur Squamous Epith Cells 1+ /LPF Ur Renal Epithelial Cell 1+ /LPF Urine Bacteria 4+ /LPF COVID-19 ([facility]) (Negative) COVID-19 Clin Com 07/13/20 Range/Units 13:43 WBC (4.8-10.8) X10*3/uL RBC (4.20-5.50) X10*6/uL Hgb (12.0-16.0) g/dl Hct (37-47) % MCV (80-98) fL MCH (27.0-33.0) pg MCHC (31.0-35.0) g/dl RDW (11.0-16.0) % Plt Count (160-400) X10*3/uL MPV (9.4-12.3) fL Immature Gran % (Auto) (0.0-0.4) % Neut % (Auto) (45-73) % Lymph % (Auto) (20-40) % [place] % (Auto) (2-11) % Eos % (Auto) (0-4) % Baso % (Auto) (0-2) % Lymph # (Auto) (1.2-4.9) X10*3/uL [place] # (Auto) (0.1-1.2) X10*3/uL Eos # (Auto) (0.0-0.4) X10*3/uL Baso # (Auto) (0.0-0.2) X10*3/uL Abs Immat Gran (auto) (0.00-0.03) X10*3/uL Absolute Neuts (auto) (2.0-8.3) X10*3/uL Absolute Nucleated RBC (0.0-0.012) X10*3/uL Nucleated RBC % (auto) (0.0-0.2) /100WBC Smear Tech's Comments PT (10.8-13.0) SEC INR (0.9-1.1) Sodium (135-145) mmol/L Potassium (3.3-5.1) mmol/L Chloride (96-108) mmol/L Carbon Dioxide (22-29) mmol/L Anion Gap (12-20) BUN (9-16) mg/dL Creatinine (0.5-1.4) mg/dL Estim Creat Clear Calc Estimated GFR POC Glucose (60-115) mg/dL Random Glucose (60-115) mg/dL Lactic Acid (0.5-2.0) mmol/L Calcium (8.4-10.2) mg/dL Total Bilirubin Cancelled (0.0-1.0) mg/dL Direct Bilirubin Cancelled (0.0-0.5) mg/dL AST Cancelled (5-31) U/L ALT Cancelled (0-31) U/L Alkaline Phosphatase Cancelled (39-117) U/L Troponin I High Sens (<3.5-17.0) ng/L B-Natriuretic Peptide (<100) pg/mL Total Protein Cancelled (6.5-8.0) g/dL Albumin Cancelled (3.5-5.0) g/dL Urine Color Urine Appearance Urine pH (5.0-8.0) Ur Specific [place] (1.005-1.025) Urine Protein (NEG-TRACE) MG/DL Urine Glucose (UA) (NEG) MG/DL Urine Ketones (NEG) MG/DL Urine Blood (NEG) Urine Nitrite (NEG) Ur Leukocyte Esterase (NEG) Urine RBC (0) /HPF Urine WBC (0-4) /HPF Ur Squamous Epith Cells /LPF Ur Renal Epithelial Cell /LPF Urine Bacteria /LPF COVID-19 ([facility]) (Negative) COVID-19 Clin Com ECG Data ECG #1: ECG interpretation date: 07/13/20 Interpretation: Atrial fibrillation, irreguarly irregular QTC prolonged 535 RBBB no STEMI Discharge Plan Discharge Clinical Impression: Acute pyelonephritis, Fever, CHF exacerbation, Cellulitis of left lower leg Patient Disposition: Admitted As Inpatient
[2020-07-13 13:14] LABS: Basophils Percent Auto 0.2 % (0-2); Eosinophils Percent Auto 0.2 % (0-4); Hematocrit 37.1 % (37-47); Hemoglobin 11.9 g/dl (12.0-16.0); Imm Gran Abs Auto 0.06 X10*3/uL (0.00-0.03); Imm Gran Pct Auto 0.5 % (0.0-0.4); Lymphocytes Absolute Auto 0.3 X10*3/uL (1.2-4.9); MANUAL DIFF FLAG SCAN; Mean Corpuscular HGB Conc 32.1 g/dl (31.0-35.0); Mean Corpuscular Volume 90.3 fL (80-98); Mean Platelet Volume 10.4 fL (9.4-12.3); Monocytes Absolute Auto 0.6 X10*3/uL (0.1-1.2); Monocytes Percent Auto 4.9 % (2-11); Neutrophils Absolute Auto 10.5 X10*3/uL (2.0-8.3); Neutrophils Percent Auto 91.2 % (45-73); Platelet Count 146 X10*3/uL (160-400); Red Blood Count 4.11 X10*6/uL (4.20-5.50); Red Cell Distribution Width 15.7 % (11.0-16.0); SCAN SMEAR FLAG 1; White Blood Count 11.5 X10*3/uL (4.8-10.8)
[2020-07-13 13:29] LABS: COVID-19 Test Negative (Negative)
[2020-07-13 13:34] LABS: Lactic Acid 1.2 mmol/L (0.5-2.0)
[2020-07-13 13:39] LABS: SLIDE REVIEW VERIFIED
[2020-07-13 13:43] LABS: Troponin-I High Sensitivity 12.8 ng/L (<3.5-17.0)
[2020-07-13 13:44] LABS: B Type Natriuretic Peptide 665 pg/mL (<100)
[2020-07-13 13:46] LABS: INTERNATIONAL NORM RATIO 1.7 (0.9-1.1); Prothrombin Time 20.6 SEC (10.8-13.0)
[2020-07-13 13:52] LABS: Glucose Urine UA NEG (NEG); Leukocyte Esterase Urine NEG (NEG); Nitrite Urine POS (NEG); Specific Gravity - Urine 1.025 (1.005-1.025); UACC Culture Trigger YES; Urine Blood 2+ (NEG); Urine Ketones 40 MG/DL (NEG); Urine Protein NEG (NEG-TRACE)
[2020-07-13 13:57] LABS: Appearance Urine CLEAR; Color Urine YELLOW
[2020-07-13 14:00] VITALS: PULSE 88; TEMP 37.8
[2020-07-13] MEDS: levoFLOXacin/D5W 750 MG/150 ML PIGGYBACK 100 MG IV (14:12)
[2020-07-13 14:29] LABS: Bacteria Urine 4+ /LPF; Renal Epithelial Cells Urine 1+ /LPF; Squamous Epithelial Cell Urine 1+ /LPF; UACC CULT YES
[2020-07-13 14:39] LABS: Alanine Aminotransferase 9 U/L (0-31); Albumin Level 3.6 g/dL (3.5-5.0); Alkaline Phosphatase 76 U/L (39-117); Anion Gap 18 (12-20); Aspartate Amino Transferase 16 U/L (5-31); Bilirubin Direct 0.6 mg/dL (0.0-0.5); Bilirubin Total 1.2 mg/dL (0.0-1.0); Blood Urea Nitrogen 22 mg/dL (9-16); Calcium 8.9 mg/dL (8.4-10.2); Carbon Dioxide 22 mmol/L (22-29); Chloride 106 mmol/L (96-108); Creatinine Clr Calc Pharmacy 58.7; Estimated Glomerular Filt Rate > 60; Glucose Random 93 mg/dL (60-115); Potassium 4.5 mmol/L (3.3-5.1); Sodium 141 mmol/L (135-145); Total Protein 7.5 g/dL (6.5-8.0)
[2020-07-13] MEDS: Furosemide 40 MG/4 ML VIAL IVPUSH (15:02)
[2020-07-13] MEDS: cefEPime HCl 2 GM in 0.9 % Sodium Chloride 50 ML IV (15:06)
[2020-07-13] MEDS: iohexoL 350 MG/ML 100 ML INFUS..BTL IV (15:38)
[2020-07-13] MEDS: Magnesium Sulfate/H2O 2 GM/50 ML PIGGYBACK IV (15:47)
[2020-07-13 16:00] VITALS: BP 121/73; PULSE 76; RESP 15; O2SAT 95
--- NOTE | 2020-07-13 16:41 | P.HPHOSP_ITS ---
History of Present Illness Date of Service: 07/13/20 <Luciana Starks NP - Last Filed: 07/13/20 16:56> Chief Complaint: fever <Luciana Starks NP - Last Filed: 07/13/20 16:56> 80-year-old woman presented to the ER with complaints of fever, flank pain, general malaise and achiness. This is been ongoing over the last 4 days. She reported some nausea, no vomiting, increased urination and diarrhea. She did report some chronic shortness of breath especially with ambulation she denied chest pain. She has history of congestive heart failure but appears euvolemic at this time. She did have a fever of 101.6, BNP 665, urinalysis positive, COVID negative, abdominal CT negative for any acute abnormality, chest x-ray shows no large focal consolidation. In the ER she received IV Levaquin, magnesium, Lasix, cefepime and Tylenol. She will be admitted for further management and treatment of acute pyelonephritis. <Luciana Starks NP - Last Filed: 07/13/20 16:56> Review of Systems Review of Systems: Denies any recent fever chills or decrease in appetite respiratory denies any shortness of breath coverage production cardiovascular denies chest pain gastrointestinal denies any dysphagia abdominal pain nausea vomiting or diarrhea genitourinary denies any dysuria frequency or hematuria musculoskeletal denies any joint pain or swelling neuropsych denies any weakness or seizures all other systems reviewed are negative <Luciana Starks NP - Last Filed: 07/13/20 16:56> [facility] Medical History: Medical History (HFpEF) heart failure with preserved ejection fraction Anxiety and depression Atrial fibrillation Chronic anticoagulation CVA (cerebral vascular accident) Hypercholesterolemia Hypertension Lumbar vertebral fracture Obesity (BMI 30-39.9) Rheumatoid arthritis Sepsis TIA (transient ischemic attack) Type 2 diabetes mellitus with hyperglycemia Uterine cancer <Luciana Starks NP - Last Filed: 07/13/20 16:56> Family History: Family History Father Diabetes CAD (coronary artery disease) Mother Diabetes Hypertension Perforated ulcer Sister Diabetes <Luciana Starks NP - Last Filed: 07/13/20 16:56> Surgical History: Surgical History History of appendectomy History of left knee replacement History of right knee joint replacement S/P ANTONIO-BSO <Luciana Starks NP - Last Filed: 07/13/20 16:56> Social History: Social History Household Members: Spouse Housing: House Do you presently have visiting nurse or other home services: Yes Alcohol intake: never Patient Tobacco Use Status: Never used Tobacco Use of substances other than those prescribed or required for medical reasons: No Advance Directives: No Advance Directives Information Provided: Yes service: No Current occupational status: retired <Luciana Starks NP - Last Filed: 07/13/20 16:56> Meds Allergies/Adverse reactions: Allergies Allergy/AdvReac Type Severity Reaction Status Date / Time shellfish derived Allergy Unknown itchy Verified 06/09/20 10:21 procaine [From Novocain] AdvReac Unknown makes Verified 06/09/20 10:21 patient itchy,puffy <Luciana Starks NP - Last Filed: 07/13/20 16:56> Active Medications: Current Medications Generic Name Dose Route Start Last Admin Trade Name Nelson PRN Reason Stop Dose Admin Magnesium Sulfate 2 gm in 50 mls @ 25 mls/hr 07/13/20 14:46 07/13/20 15:47 IV 07/13/20 16:45 25 mls/hr ONCE ONE Administration <Luciana Starks NP - Last Filed: 07/13/20 16:56> Home medications: Home Medications Medication Instructions Recorded Confirmed Last Taken Type atenolol 50 mg tablet 50 mg PO DAILY 11/27/19 07/13/20 07/12/20 History hydroxychloroquine 200 mg tablet 200 mg PO BID 11/27/19 07/13/20 07/12/20 History metformin 500 mg tablet 500 mg PO BID 11/27/19 07/13/20 07/12/20 History methotrexate sodium 2.5 mg tablet 2.5 mg PO QWEEK 11/27/19 07/13/20 05/17/20 History folic acid 1 mg PO DAILY 05/18/20 07/13/20 07/12/20 History atorvastatin 07/13/20 Unknown History <Luciana Starks NP - Last Filed: 07/13/20 16:56> Physical Exam Vital Signs and Narrative: Vital Signs: Last Vital Signs Temp 100.1 F 07/13/20 14:00 Pulse 76 07/13/20 16:00 Resp 15 07/13/20 16:00 BP 121/73 07/13/20 16:00 Pulse Ox 95 07/13/20 16:00 Body Mass Index 34.9 <Luciana Starks NP - Last Filed: 07/13/20 16:56> Appearing in no acute distress head is normocephalic atraumatic eyes pupils are PERRLA sclera is anicteric mouth throat mucous membranes are intact and moist neck is supple no lymphadenopathy, no JVD noted lung sounds are clear to auscultation heart IRIR, clear S1, S2, left leg edema, chronic, dry, wrinkled skin around ankles positive bowel sounds, abdomen is soft, nontender neuro patient is alert x3, no focal deficits <Luciana Starks NP - Last Filed: 07/13/20 16:56> Results Labs CBC and Chem 7: : 07/13/20 13:04 07/13/20 13:43 <Luciana Starks NP - Last Filed: 07/13/20 16:56> Labs: Laboratory Results - last 24 hr 07/13/20 07/13/20 07/13/20 12:20 13:04 13:04 MCV 90.3 MCH 29.0 MCHC 32.1 RDW 15.7 Plt Count 146 L MPV 10.4 Immature Gran % (Auto) 0.5 H Neut % (Auto) 91.2 H Lymph % (Auto) 3.0 L Waller % (Auto) 4.9 Eos % (Auto) 0.2 Baso % (Auto) 0.2 Lymph # (Auto) 0.3 L Waller # (Auto) 0.6 Eos # (Auto) 0.0 Baso # (Auto) 0.0 Abs Immat Gran (auto) 0.06 H Absolute Neuts (auto) 10.5 H Absolute Nucleated RBC 0.000 Nucleated RBC % (auto) 0.0 Smear Tech's Comments VERIFIED PT INR Anion Gap Estim Creat Clear Calc Estimated GFR POC Glucose 95 Random Glucose Lactic Acid 1.2 Calcium Total Bilirubin Direct Bilirubin AST ALT Alkaline Phosphatase Troponin I High Sens B-Natriuretic Peptide Total Protein Albumin Urine Color Urine Appearance Urine pH Ur Specific [place] Urine Protein Urine Glucose (UA) Urine Ketones Urine Blood Urine Nitrite Ur Leukocyte Esterase Urine RBC Urine WBC Ur Squamous Epith Cells Ur Renal Epithelial Cell Urine Bacteria COVID-19 ([facility]) COVID-19 Clin Com 07/13/20 07/13/20 07/13/20 13:04 13:04 13:06 MCV MCH MCHC RDW Plt Count MPV Immature Gran % (Auto) Neut % (Auto) Lymph % (Auto) Waller % (Auto) Eos % (Auto) Baso % (Auto) Lymph # (Auto) Waller # (Auto) Eos # (Auto) Baso # (Auto) Abs Immat Gran (auto) Absolute Neuts (auto) Absolute Nucleated RBC Nucleated RBC % (auto) Smear Tech's Comments PT INR Anion Gap Estim Creat Clear Calc Estimated GFR POC Glucose Random Glucose Lactic Acid Calcium Total Bilirubin Direct Bilirubin AST ALT Alkaline Phosphatase Troponin I High Sens 12.8 B-Natriuretic Peptide 665 H Total Protein Albumin Urine Color Urine Appearance Urine pH Ur Specific [place] Urine Protein Urine Glucose (UA) Urine Ketones Urine Blood Urine Nitrite Ur Leukocyte Esterase Urine RBC Urine WBC Ur Squamous Epith Cells Ur Renal Epithelial Cell Urine Bacteria COVID-19 ([facility]) Negative COVID-19 Clin Com See Note 07/13/20 07/13/20 07/13/20 13:29 13:33 13:43 MCV MCH MCHC RDW Plt Count MPV Immature Gran % (Auto) Neut % (Auto) Lymph % (Auto) Waller % (Auto) Eos % (Auto) Baso % (Auto) Lymph # (Auto) Waller # (Auto) Eos # (Auto) Baso # (Auto) Abs Immat Gran (auto) Absolute Neuts (auto) Absolute Nucleated RBC Nucleated RBC % (auto) Smear Tech's Comments PT 20.6 H D INR 1.7 H Anion Gap 18 Estim Creat Clear Calc 58.7 Estimated GFR > 60 POC Glucose Random Glucose 93 Lactic Acid Calcium 8.9 Total Bilirubin 1.2 H Direct Bilirubin 0.6 H AST 16 ALT 9 Alkaline Phosphatase 76 D Troponin I High Sens B-Natriuretic Peptide Total Protein 7.5 Albumin 3.6 Urine Color YELLOW Urine Appearance CLEAR Urine pH 6.0 Ur Specific [place] 1.025 Urine Protein NEG Urine Glucose (UA) NEG Urine Ketones 40 Urine Blood 2+ H Urine Nitrite POS H Ur Leukocyte Esterase NEG Urine RBC 5-9 H Urine WBC 5-9 H Ur Squamous Epith Cells 1+ Ur Renal Epithelial Cell 1+ Urine Bacteria 4+ COVID-19 ([facility]) COVID-19 Clin Com 07/13/20 13:43 MCV MCH MCHC RDW Plt Count MPV Immature Gran % (Auto) Neut % (Auto) Lymph % (Auto) Waller % (Auto) Eos % (Auto) Baso % (Auto) Lymph # (Auto) Waller # (Auto) Eos # (Auto) Baso # (Auto) Abs Immat Gran (auto) Absolute Neuts (auto) Absolute Nucleated RBC Nucleated RBC % (auto) Smear Tech's Comments PT INR Anion Gap Estim Creat Clear Calc Estimated GFR POC Glucose Random Glucose Lactic Acid Calcium Total Bilirubin Cancelled Direct Bilirubin Cancelled AST Cancelled ALT Cancelled Alkaline Phosphatase Cancelled Troponin I High Sens B-Natriuretic Peptide Total Protein Cancelled Albumin Cancelled Urine Color Urine Appearance Urine pH Ur Specific [place] Urine Protein Urine Glucose (UA) Urine Ketones Urine Blood Urine Nitrite Ur Leukocyte Esterase Urine RBC Urine WBC Ur Squamous Epith Cells Ur Renal Epithelial Cell Urine Bacteria COVID-19 ([facility]) COVID-19 Clin Com <Luciana Starks NP - Last Filed: 07/13/20 16:56> Imaging Radiologist's Impressions: Impressions Chest X-Ray 07/13/20 12:48 IMPRESSION: Stable prominence of the cardiac silhouette and interstitium, that may represent mild CHF. No large focal consolidation. Abdomen/Pelvis CT 07/13/20 12:53 IMPRESSION: 1. No CT evidence of acute abnormality within the abdomen or pelvis. 2. New retroperitoneal lymphadenopathy. 3. Nonobstructing right renal calculi. 4. Other chronic and nonacute findings as above. <Luciana Starks NP - Last Filed: 07/13/20 16:56> Assessment and Plan (1) Acute pyelonephritis: Status: Acute <Luciana Starks NP - Last Filed: 07/13/20 16:56> 80-year-old woman admitted acute pyelonephritis with fever, flank pain and nausea. No overt heart failure noted although BNP is elevated legs are dry and wrinkly. Pyelonephritis. flank pain, nausea, fever -Rocephin -follow urine culture -antiemetics as needed Heart failure with preserved ejection fraction. No overt failure noted No rales Some edema to left lower extremity with dryness and wrinkling -continue home dose of Lasix -cardiology to follow -daily weights -intake and output Atrial fibrillation. Stable heart rate. -continue warfarin and atenolol. Diarrhea. Likely secondary to UTI -Check stool studies and cdiff Pancytopenia. Chronic. Likely secondary to RA treatment Diabetes mellitus. -sliding scale -ADA diet -hold metformin for now Hypertension. Stable pressure. -continue amlodipine Rheumatoid arthritis. -on monthly infusions of Remicade and methotrexate DVT prophylaxis with warfarin Full code Attending: Dr. Loza <Luciana Starks NP - Last Filed: 07/13/20 16:56> Addendum to documentation by midlevel I saw and examined the patient and participated in the crandall portion of the E/M service. I agree with the history and exman as stated above. Patient presents with flank pain, fever and positive UA and clinical presentation c/w with acute Pyelonephritis, CT shows no abscess. BNP is moderately high, she has no sob, there is slight leg edema, no JVD. Will admit for IV antibiotics, follow cultures. and plan as mentioned above. Otherwise, I agree with assessment and plan as outlined above. <Parvez Loza MD - Last Filed: 07/13/20 17:11>
[2020-07-13 17:01] VITALS: TEMP 37.2
--- NOTE | 2020-07-13 17:46 | PC.NURSE ---
Attempted to call report, RN will call back when ready
--- NOTE | 2020-07-13 18:03 | PC.NURSE ---
rN TO RN WITH [facility]. PT BACK ON COMMODE.
[2020-07-13 18:42] VITALS: BMI 34.7
[2020-07-13] MEDS: Warfarin Sodium 3 MG TABLET PO (18:48)
[2020-07-13] MEDS: 0.9 % Sodium Chloride Flush 3 ML SYRINGE IVFLUSH (20:04)
[2020-07-13 20:41] LABS: Glucose, Whole Blood 130 mg/dL (60-115)
[2020-07-13] MEDS: Hydroxychloroquine Sulfate 200 MG TABLET PO (21:16)
[2020-07-13] MEDS: Acetaminophen 325 MG TABLET 650 MG PO (21:16)
[2020-07-13 23:36] VITALS: BP 122/58; PULSE 84; RESP 18; TEMP 36.6; O2SAT 96
[2020-07-14] VITALS (8 sets, daily range): BP systolic 105–130; BP diastolic 55–68; PULSE 56–73; RESP 18–20; TEMP 36.1–37; O2SAT 93–96; BMI 34.2
[2020-07-14] MEDS: Acetaminophen 325 MG TABLET 650 MG PO ×3 (03:48→22:24)
[2020-07-14 05:49] LABS: MANUAL DIFF FLAG NO
[2020-07-14 06:11] LABS: Basophils Percent Auto 0.3 % (0-2); Eosinophils Absolute Auto 0.1 X10*3/uL (0.0-0.4); Eosinophils Percent Auto 1.8 % (0-4); Hematocrit 32.8 % (37-47); Hemoglobin 10.5 g/dl (12.0-16.0); Imm Gran Abs Auto 0.03 X10*3/uL (0.00-0.03); Imm Gran Pct Auto 0.5 % (0.0-0.4); Lymphocytes Absolute Auto 0.8 X10*3/uL (1.2-4.9); Lymphocytes Percent Auto 13.1 % (20-40); Mean Corpuscular Hemoglobin 28.5 pg (27.0-33.0); Mean Corpuscular Volume 89.1 fL (80-98); Mean Platelet Volume 10.3 fL (9.4-12.3); Monocytes Absolute Auto 0.6 X10*3/uL (0.1-1.2); Monocytes Percent Auto 9.9 % (2-11); Neutrophils Absolute Auto 4.7 X10*3/uL (2.0-8.3); Neutrophils Percent Auto 74.4 % (45-73); Platelet Count 129 X10*3/uL (160-400); Red Blood Count 3.68 X10*6/uL (4.20-5.50); White Blood Count 6.3 X10*3/uL (4.8-10.8)
[2020-07-14 06:18] LABS: Anion Gap 15 (12-20); Blood Urea Nitrogen 24 mg/dL (9-16); Calcium 8.8 mg/dL (8.4-10.2); Carbon Dioxide 25 mmol/L (22-29); Chloride 103 mmol/L (96-108); Creatinine Clr Calc Pharmacy 51.3; Estimated Glomerular Filt Rate > 60; Glucose Random 92 mg/dL (60-115); Potassium 3.8 mmol/L (3.3-5.1); Sodium 139 mmol/L (135-145)
[2020-07-14 06:23] LABS: INTERNATIONAL NORM RATIO 2.1 (0.9-1.1); Prothrombin Time 25.6 SEC (10.8-13.0)
[2020-07-14 07:14] LABS: Glucose, Whole Blood 94 mg/dL (60-115)
[2020-07-14] MEDS: Furosemide 40 MG TABLET PO (07:50)
[2020-07-14] MEDS: amLODIPine Besylate 5 MG TABLET PO (07:50)
[2020-07-14] MEDS: Spironolactone 25 MG TABLET 12.5 MG PO (07:51)
[2020-07-14] MEDS: Hydroxychloroquine Sulfate 200 MG TABLET PO ×2 (07:51→20:41)
[2020-07-14] MEDS: 0.9 % Sodium Chloride Flush 3 ML SYRINGE IVFLUSH ×3 (07:51→20:41)
[2020-07-14] MEDS: atenoloL 50 MG TABLET PO (07:51)
[2020-07-14] MEDS: Folic Acid 1 MG TABLET PO (07:51)
--- NOTE | 2020-07-14 11:07 | PM.CNCAR ---
History of Present Illness History of Present Illness Date of Service: 07/14/20 Consult reason: congestive heart failure Chief complaint: Pyelonephritis Narrative: This is a cardiology consultation regarding congestive heart failure. She presents to the ER with fever, flank pain and some generalized malaise. She also had a mechanical fall. In this context, we have been asked to see her for cardiac standpoint. She seems to have had chronic shortness of breath, slight worsening recently. She also has chronic leg swelling. It seems she got some Lasix upon arrival and she states she urinated a lot. Otherwise she had another admission few weeks ago for respiratory failure/heart failure when she again underwent aggressive diuresis and was negative more than 6 L. Review of Systems Review of Systems: Yes all other systems are reviewed and are negative Cardiovascular: Cardiovascular: Reports as per HPI, Reports no additional cardiovascular complaints, Denies acrocyanosis, Denies cool extremities, Denies painful fingertips, Denies chest pain, Denies chest pain at rest, Denies diaphoresis, Denies syncope, Denies irregular heart rhythm, Denies claudication, Reports leg edema, Denies lightheadedness, Denies palpitations and Reports dyspnea Respiratory: Respiratory: Reports dyspnea Neurologic: Denies syncope Endocrine: Endocrine: Denies palpitations [facility] Past Medical History Medical History (HFpEF) heart failure with preserved ejection fraction Anxiety and depression Atrial fibrillation Chronic anticoagulation CVA (cerebral vascular accident) Hypercholesterolemia Hypertension Lumbar vertebral fracture Obesity (BMI 30-39.9) Rheumatoid arthritis Sepsis TIA (transient ischemic attack) Type 2 diabetes mellitus with hyperglycemia Uterine cancer Family History Family History Father Diabetes CAD (coronary artery disease) Mother Diabetes Hypertension Perforated ulcer Sister Diabetes Surgical History Surgical History History of appendectomy History of left knee replacement History of right knee joint replacement S/P ANTONIO-BSO Social History Social History Household Members: Spouse Housing: House Do you presently have visiting nurse or other home services: Yes Alcohol intake: never Patient Tobacco Use Status: Never used Tobacco Use of substances other than those prescribed or required for medical reasons: No Currently Displaying Signs/Symptoms of Drug Intoxication Withdrawal: No Have you been hit, kicked, punched, or otherwise hurt by someone within the past year? If so, by whom?: No Do you feel safe in your current relationship?: Yes Is there a partner from a previous relationship who is making you feel unsafe now?: No Are you made to feel afraid or neglected: No Advance Directives: No Advance Directives Information Provided: Yes Do you have thoughts of harming others: None Do you have a plan to hurt others: No Plan Recently lost weight without trying: Yes How much weight loss: 34pounds or more Eating poorly because of decreased appetite: No Nutrition screen score: 6 Nutrition Risks: No Nutritional Risk Patient : No : No Poor oral hygiene: No service: No Current occupational status: retired [employer] Allergies Allergy/AdvReac Type Severity Reaction Status Date / Time shellfish derived Allergy Unknown itchy Verified 06/09/20 10:21 procaine [From Novocain] AdvReac Unknown makes Verified 06/09/20 10:21 patient itchy,puffy Active Medications: Current Medications Generic Name Dose Route Start Last Admin Trade Name Freq PRN Reason Stop Dose Admin Acetaminophen 650 mg 07/13/20 17:01 07/14/20 03:48 Acetaminophen 325 Mg Tablet PO 650 mg Q6H PRN Administration Pain, Mild (Pain Scale 1-3) Amlodipine Besylate 5 mg 07/14/20 09:00 07/14/20 07:50 Amlodipine Besylate 5 Mg Tablet PO 5 mg DAILY KIKI Administration Protocol Atenolol 50 mg 07/14/20 09:00 07/14/20 07:51 Atenolol 50 Mg Tablet PO 50 mg DAILY KIKI Administration Protocol Folic Acid 1 mg 07/14/20 09:00 07/14/20 07:51 Folic Acid 1 Mg Tablet PO 1 mg DAILY KIKI Administration Furosemide 40 mg 07/14/20 09:00 07/14/20 07:50 Furosemide 40 Mg Tablet PO 40 mg DAILY KIKI Administration Protocol Hydroxychloroquine Sulfate 200 mg 07/13/20 21:00 07/14/20 07:51 Hydroxychloroquine Sulfate 200 Mg Tablet PO 200 mg BID KIKI Administration Ceftriaxone Sodium 1 gm/ 50 mls @ 100 mls/hr 07/14/20 14:00 Sodium Chloride IV Q24H KIKI Insulin Human Lispro 0 unit 07/13/20 21:00 07/14/20 07:16 Insulin Lispro 100 Unit/Ml 3 Ml Vial SUBCUT Not Given QIDACHS [facility] Protocol Ondansetron HCl 4 mg 07/13/20 17:01 Ondansetron Hcl 4 Mg/2 Ml Vial IVPUSH Q8H PRN Nausea and Vomiting Sodium Chloride 3 ml 07/14/20 00:00 07/14/20 07:51 0.9 % Sodium Chloride Flush 3 Ml Syringe IVFLUSH 3 ml QSHIFT [facility] Administration Spironolactone 12.5 mg 07/14/20 09:00 07/14/20 07:51 Spironolactone 25 Mg Tablet PO 12.5 mg DAILY [facility] Administration Protocol Warfarin Sodium 3 mg 07/13/20 18:00 07/13/20 18:48 Warfarin Sodium 3 Mg Tablet PO 3 mg DAILY@1800 [facility] Administration Home Medications Medication Instructions Recorded Confirmed Last Taken Type atenolol 50 mg tablet 50 mg PO DAILY 11/27/19 07/13/20 07/12/20 History hydroxychloroquine 200 mg tablet 200 mg PO BID 11/27/19 07/13/20 07/12/20 History metformin 500 mg tablet 500 mg PO BID 11/27/19 07/13/20 07/12/20 History methotrexate sodium 2.5 mg tablet 2.5 mg PO QWEEK 11/27/19 07/13/20 05/17/20 History folic acid 1 mg PO DAILY 05/18/20 07/13/20 07/12/20 History atorvastatin 07/13/20 Unknown History Physical Exam Vital Signs: Vital Signs: Last Vital Signs Temp 98.0 F 07/14/20 07:49 Pulse 72 07/14/20 07:51 Resp 18 07/14/20 07:49 BP 130/56 L 07/14/20 07:51 Pulse Ox 95 07/14/20 07:49 Body Mass Index 34.2 Const: General: cooperative, comfortable and no acute distress Orientation/consciousness: patient oriented x3 HENMT: Other: Unremarkable Neck: Neck: Yes normal visual inspection Chest: Chest palpation & inspection: normal inspection of the chest Resp: Other: few basal crackles Cardio: Jugular venous distension: no JVD Palpation: normal PMI Heart sounds: S1 normal heart sound present, S2 normal heart sound present, no gallops, Murmur heart sound present systolic II/ and at the right sternal border and no rubs GI: Palpation (GI): Soft to palpation Back/Spine/Pelvis: Other: unremarkable Skin: General skin exam: no rashes or lesions noted Neuro: General: patient oriented x3 Extrem: General: Yes pedal edema (1+ L>R) Psych: Mental Status: mental status grossly normal Results Labs and Meds Result diagrams: 07/14/20 05:07/14/20 05:30 Lab results: Laboratory Results - last 24 hr 07/13/20 07/13/20 07/13/20 12:20 13:04 13:04 WBC 11.5 H RBC 4.11 L Hgb 11.9 L Hct 37.1 MCV 90.3 MCH 29.0 MCHC 32.1 RDW 15.7 Plt Count 146 L MPV 10.4 Immature Gran % (Auto) 0.5 H Neut % (Auto) 91.2 H Lymph % (Auto) 3.0 L Craig % (Auto) 4.9 Eos % (Auto) 0.2 Baso % (Auto) 0.2 Lymph # (Auto) 0.3 L Craig # (Auto) 0.6 Eos # (Auto) 0.0 Baso # (Auto) 0.0 Abs Immat Gran (auto) 0.06 H Absolute Neuts (auto) 10.5 H Absolute Nucleated RBC 0.000 Nucleated RBC % (auto) 0.0 Smear Tech's Comments VERIFIED PT INR Sodium Potassium Chloride Carbon Dioxide Anion Gap BUN Creatinine Estim Creat Clear Calc Estimated GFR POC Glucose 95 Random Glucose Lactic Acid 1.2 Calcium Total Bilirubin Direct Bilirubin AST ALT Alkaline Phosphatase Troponin I High Sens B-Natriuretic Peptide Total Protein Albumin Urine Color Urine Appearance Urine pH Ur Specific [place] Urine Protein Urine Glucose (UA) Urine Ketones Urine Blood Urine Nitrite Ur Leukocyte Esterase Urine RBC Urine WBC Ur Squamous Epith Cells Ur Renal Epithelial Cell Urine Bacteria COVID-19 ([facility]) COVID-19 Clin Com 07/13/20 07/13/20 07/13/20 13:04 13:04 13:06 WBC RBC Hgb Hct MCV MCH MCHC RDW Plt Count MPV Immature Gran % (Auto) Neut % (Auto) Lymph % (Auto) Craig % (Auto) Eos % (Auto) Baso % (Auto) Lymph # (Auto) Craig # (Auto) Eos # (Auto) Baso # (Auto) Abs Immat Gran (auto) Absolute Neuts (auto) Absolute Nucleated RBC Nucleated RBC % (auto) Smear Tech's Comments PT INR Sodium Potassium Chloride Carbon Dioxide Anion Gap BUN Creatinine Estim Creat Clear Calc Estimated GFR POC Glucose Random Glucose Lactic Acid Calcium Total Bilirubin Direct Bilirubin AST ALT Alkaline Phosphatase Troponin I High Sens 12.8 B-Natriuretic Peptide 665 H Total Protein Albumin Urine Color Urine Appearance Urine pH Ur Specific [place] Urine Protein Urine Glucose (UA) Urine Ketones Urine Blood Urine Nitrite Ur Leukocyte Esterase Urine RBC Urine WBC Ur Squamous Epith Cells Ur Renal Epithelial Cell Urine Bacteria COVID-19 ([facility]) Negative COVID-[employer] See Note 07/13/20 07/13/20 07/13/20 13:29 13:33 13:43 WBC RBC Hgb Hct MCV MCH MCHC RDW Plt Count MPV Immature Gran % (Auto) Neut % (Auto) Lymph % (Auto) Craig % (Auto) Eos % (Auto) Baso % (Auto) Lymph # (Auto) Craig # (Auto) Eos # (Auto) Baso # (Auto) Abs Immat Gran (auto) Absolute Neuts (auto) Absolute Nucleated RBC Nucleated RBC % (auto) Smear Tech's Comments PT 20.6 H D INR 1.7 H Sodium 141 Potassium 4.5 Chloride 106 Carbon Dioxide 22 Anion Gap 18 BUN 22 H Creatinine 0.75 Estim Creat Clear Calc 58.7 Estimated GFR > 60 POC Glucose Random Glucose 93 Lactic Acid Calcium 8.9 Total Bilirubin 1.2 H Direct Bilirubin 0.6 H AST 16 ALT 9 Alkaline Phosphatase 76 D Troponin I High Sens B-Natriuretic Peptide Total Protein 7.5 Albumin 3.6 Urine Color YELLOW Urine Appearance CLEAR Urine pH 6.0 Ur Specific [place] 1.025 Urine Protein NEG Urine Glucose (UA) NEG Urine Ketones 40 Urine Blood 2+ H Urine Nitrite POS H Ur Leukocyte Esterase NEG Urine RBC 5-9 H Urine WBC 5-9 H Ur Squamous Epith Cells 1+ Ur Renal Epithelial Cell 1+ Urine Bacteria 4+ COVID-19 ([facility]) [employer] 07/13/20 07/13/20 07/14/20 13:43 20:34 05:30 WBC 6.3 RBC 3.68 L Hgb 10.5 L Hct 32.8 L MCV 89.1 MCH 28.5 MCHC 32.0 RDW 16.0 Plt Count 129 L MPV 10.3 Immature Gran % (Auto) 0.5 H Neut % (Auto) 74.4 H Lymph % (Auto) 13.1 L Craig % (Auto) 9.9 Eos % (Auto) 1.8 Baso % (Auto) 0.3 Lymph # (Auto) 0.8 L Craig # (Auto) 0.6 Eos # (Auto) 0.1 Baso # (Auto) 0.0 Abs Immat Gran (auto) 0.03 Absolute Neuts (auto) 4.7 Absolute Nucleated RBC 0.000 Nucleated RBC % (auto) 0.0 Smear Tech's Comments PT INR Sodium Potassium Chloride Carbon Dioxide Anion Gap BUN Creatinine Estim Creat Clear Calc Estimated GFR POC Glucose 130 H Random Glucose Lactic Acid Calcium Total Bilirubin Cancelled Direct Bilirubin Cancelled AST Cancelled ALT Cancelled Alkaline Phosphatase Cancelled Troponin I High Sens B-Natriuretic Peptide Total Protein Cancelled Albumin Cancelled Urine Color Urine Appearance Urine pH Ur Specific [place] Urine Protein Urine Glucose (UA) Urine Ketones Urine Blood Urine Nitrite Ur Leukocyte Esterase Urine RBC Urine WBC Ur Squamous Epith Cells Ur Renal Epithelial Cell Urine Bacteria COVID-19 ([facility]) COVID-19 [employer] 07/14/20 07/14/20 07/14/20 05:30 05:31 07:08 WBC RBC Hgb Hct MCV MCH MCHC RDW Plt Count MPV Immature Gran % (Auto) Neut % (Auto) Lymph % (Auto) Craig % (Auto) Eos % (Auto) Baso % (Auto) Lymph # (Auto) Craig # (Auto) Eos # (Auto) Baso # (Auto) Abs Immat Gran (auto) Absolute Neuts (auto) Absolute Nucleated RBC Nucleated RBC % (auto) Smear Tech's Comments PT 25.6 H D INR 2.1 H Sodium 139 Potassium 3.8 Chloride 103 Carbon Dioxide 25 Anion Gap 15 BUN 24 H Creatinine 0.85 Estim Creat Clear Calc 51.3 Estimated GFR > 60 POC Glucose 94 Random Glucose 92 Lactic Acid Calcium 8.8 Total Bilirubin Direct Bilirubin AST ALT Alkaline Phosphatase Troponin I High Sens B-Natriuretic Peptide Total Protein Albumin Urine Color Urine Appearance Urine pH Ur Specific [place] Urine Protein Urine Glucose (UA) Urine Ketones Urine Blood Urine Nitrite Ur Leukocyte Esterase Urine RBC Urine WBC Ur Squamous Epith Cells Ur Renal Epithelial Cell Urine Bacteria COVID-19 ([facility]) COVID-19 Clin Com ECG Attestation: I personally reviewed and interpreted this ECG as follows: Interpretation: EKG shows atrial fibrillation at 90/Min with an underlying right bundle-branch block pattern. On telemetry, she is in atrial fibrillation at about 60/Min. Imaging Radiologist's impression: Impressions Chest X-Ray 07/13/20 12:48 IMPRESSION: Stable prominence of the cardiac silhouette and interstitium, that may represent mild CHF. No large focal consolidation. Abdomen/Pelvis CT 07/13/20 12:53 IMPRESSION: 1. No CT evidence of acute abnormality within the abdomen or pelvis. 2. New retroperitoneal lymphadenopathy. 3. Nonobstructing right renal calculi. 4. Other chronic and nonacute findings as above. Assessment and Plan (1) Acute on chronic diastolic (congestive) heart failure: Status: Acute (2) Nonrheumatic aortic valve stenosis: Status: Acute (3) Pulmonary hypertension: Status: Acute (4) Persistent atrial fibrillation: Status: Acute Recent echocardiogram reviewed. LVEF 60-65%; advanced diastolic dysfunction; moderate aortic stenosis; severe mitral annular calcification; severe pulmonary hypertension. Labs reviewed. Hemoglobin is 10.5. White cells 6.3. Platelets 129. INR 2.1. BUN is 24. Creatinine 0.85. Sodium 139. Potassium 3.8. Carbon dioxide 25. High sensitivity troponins at 12.8 cardiac BNP 665 which is higher than her prior value of 326 in May. Since admission, she has already put out 2375 mL and negative -1.8L. Blood pressure seems stable. She probably had some heart failure symptoms upon arrival but mostly seems improved. Probably another dose of IV Lasix today and then switch back to p.o. tomorrow. No need for any further cardiac workup at this time. Procedures Date of Service Date of Service: 07/14/20
[2020-07-14 11:13] LABS: Glucose, Whole Blood 111 mg/dL (60-115)
--- NOTE | 2020-07-14 11:33 | P.PNIM_ITS ---
Subjective Subjective Date of Service: 07/14/20 <Luciana Starks NP - Last Filed: 07/14/20 11:39> 07/14/20 <Parvez Loza MD - Last Filed: 07/14/20 13:37> Interval History: Follow up Pyelo and CHF Still with some back pain No SOB <Luciana Starks NP - Last Filed: 07/14/20 11:39> Physical Exam Vital Signs: Vital Signs: Last Vital Signs Temp 98.0 F 07/14/20 07:49 Pulse 72 07/14/20 07:51 Resp 18 07/14/20 07:49 BP 130/56 L 07/14/20 07:51 Pulse Ox 95 07/14/20 07:49 Body Mass Index 34.2 <Luciana Starks NP - Last Filed: 07/14/20 11:39> Appearing in no acute distress lung sounds are clear to auscultation heart regular rate rhythm, clear S1, S2, right LE edema positive bowel sounds, abdomen is soft, nontender neuro patient is alert x3, no focal deficits <Luciana Starks NP - Last Filed: 07/14/20 11:39> Objective Data Current Medications Generic Name Dose Route Start Last Admin Trade Name Freq PRN Reason Stop Dose Admin Acetaminophen 650 mg 07/13/20 17:01 07/14/20 03:48 Acetaminophen 325 Mg Tablet PO 650 mg Q6H PRN Administration Pain, Mild (Pain Scale 1-3) Amlodipine Besylate 5 mg 07/14/20 09:00 07/14/20 07:50 Amlodipine Besylate 5 Mg Tablet PO 5 mg DAILY KIKI Administration Protocol Atenolol 50 mg 07/14/20 09:00 07/14/20 07:51 Atenolol 50 Mg Tablet PO 50 mg DAILY KIKI Administration Protocol Folic Acid 1 mg 07/14/20 09:00 07/14/20 07:51 Folic Acid 1 Mg Tablet PO 1 mg DAILY KIKI Administration Furosemide 40 mg 07/14/20 09:00 07/14/20 07:50 Furosemide 40 Mg Tablet PO 40 mg DAILY KIKI Administration Protocol Hydroxychloroquine Sulfate 200 mg 07/13/20 21:00 07/14/20 07:51 Hydroxychloroquine Sulfate 200 Mg Tablet PO 200 mg BID KIKI Administration Ceftriaxone Sodium 1 gm/ 50 mls @ 100 mls/hr 07/14/20 14:00 Sodium Chloride IV Q24H [facility] Insulin Human Lispro 0 unit 07/13/20 21:00 07/14/20 11:21 Insulin Lispro 100 Unit/Ml 3 Ml Vial SUBCUT Not Given QIDACHS [facility] Protocol Ondansetron HCl 4 mg 07/13/20 17:01 Ondansetron Hcl 4 Mg/2 Ml Vial IVPUSH Q8H PRN Nausea and Vomiting Sodium Chloride 3 ml 07/14/20 00:00 07/14/20 07:51 0.9 % Sodium Chloride Flush 3 Ml Syringe IVFLUSH 3 ml QSHIFT [facility] Administration Spironolactone 12.5 mg 07/14/20 09:00 07/14/20 07:51 Spironolactone 25 Mg Tablet PO 12.5 mg DAILY [facility] Administration Protocol Warfarin Sodium 3 mg 07/13/20 18:00 07/13/20 18:48 Warfarin Sodium 3 Mg Tablet PO 3 mg DAILY@1800 [facility] Administration <Luciana Starks NP - Last Filed: 07/14/20 11:39> Labs CBC & Chem 7: : 07/14/20 05:30 07/14/20 05:30 <Luciana Starks NP - Last Filed: 07/14/20 11:39> Microbiology Microbiology Results: Microbiology 07/13/20 Unknown Urine clean catch - Clean Catch Midstream Urine Culture - Preliminary Culture in progress. <Luciana Starks NP - Last Filed: 07/14/20 11:39> Assessment and Plan (1) Pulmonary hypertension: Status: Acute <Luciana Starks NP - Last Filed: 07/14/20 11:39> Assessment and Plan: 80-year-old woman admitted acute pyelonephritis with fever, flank pain and nausea. No overt heart failure noted although BNP is elevated legs are dry and wrinkly. Pyelonephritis. flank pain, nausea, fever -Rocephin -follow urine culture -antiemetics as needed Heart failure with preserved ejection fraction. No overt failure noted, No rales but BNP higher Some edema to left lower extremity with dryness and wrinkling -Add Lasix IV 40mg bid and then change to po -cardiology following -daily weights -intake and output Atrial fibrillation. Stable heart rate. -continue warfarin and atenolol. Diarrhea. Likely secondary to UTI -Check stool studies and cdiff Pancytopenia. Chronic. Likely secondary to RA treatment Diabetes mellitus. -sliding scale -ADA diet -hold metformin for now Hypertension. Stable pressure. -continue amlodipine Rheumatoid arthritis. -on monthly infusions of Remicade and methotrexate DVT prophylaxis with warfarin Full code Attending: Dr. Loza <Luciana Starks NP - Last Filed: 07/14/20 11:39> (2) Acute pyelonephritis: Status: Acute <Luciana Starks NP - Last Filed: 07/14/20 11:39> Assessment and Plan: I examined the patient and discussed treatment plan with SURGICAL PATHOLOGIST and I agree with exa, Assessment and plan as above <Parvez Loza MD - Last Filed: 07/14/20 13:37>
[2020-07-14] MEDS: cefTRIAXone sodium 1 GM in 0.9 % Sodium Chloride 50 ML IV (13:12)
--- NOTE | 2020-07-14 15:13 | MHC.CM.PN ---
CM MET WITH PT WHO REPORTS SHE LIVES AT HOME WITH HER WHO HAS EARLY STAGES OF DEMENTIA. PT REPORTS SHE LIVES ON THE FIRST FLOOR AND HE LIVES UPSTAIRS. PT STATES SHE HAS A RECORDS MANAGEMENT ASSISTANT THAT COMES IN 2X/WEEK TO DO HEAVY CLEANING. PT REPORTS BEING INDEPENDENT WITH SELF CARE. PT DENIES BEING ACTIVE WITH SERVICES OTHER THAN A RECORDS MANAGEMENT ASSISTANT, HOWEVER IT APPEARS SHE MAY BE ACTIVE WITH [facility]. AWAITING CONFIRMATION. PT STATES SHE USES A WALKER PRIMARILY, BUT SOMETIMES USES TWO CANES IF THE WALKER DOES NOT FIT IN THE SPACE SHE IS NAVIGATING. PT CONFIRMS HER PCP IS GEMINI FLETCHER AND SHE HAS A HCP ON FILE. . IMM DELIVERED CURRENT DC PLAN IS HOME WITH RESUMPTION OF SERVICES FAMILY WILL TRANSPORT
[2020-07-14 16:30] LABS: Glucose, Whole Blood 100 mg/dL (60-115)
[2020-07-14] MEDS: Warfarin Sodium 3 MG TABLET PO (17:22)
[2020-07-14 20:00] LABS: Glucose, Whole Blood 101 mg/dL (60-115)
[2020-07-15] VITALS (7 sets, daily range): BP systolic 110–131; BP diastolic 60–76; PULSE 56–82; RESP 16–19; TEMP 35.8–36.8; O2SAT 94–97; BMI 34.5
[2020-07-15 06:31] LABS: Hematocrit 33.6 % (37-47); Hemoglobin 10.8 g/dl (12.0-16.0); Mean Corpuscular HGB Conc 32.1 g/dl (31.0-35.0); Mean Corpuscular Volume 90.1 fL (80-98); Mean Platelet Volume 10.4 fL (9.4-12.3); Platelet Count 142 X10*3/uL (160-400); Red Blood Count 3.73 X10*6/uL (4.20-5.50); White Blood Count 5.4 X10*3/uL (4.8-10.8)
[2020-07-15 06:45] LABS: Anion Gap 11 (12-20); Blood Urea Nitrogen 27 mg/dL (9-16); Calcium 8.9 mg/dL (8.4-10.2); Carbon Dioxide 29 mmol/L (22-29); Chloride 105 mmol/L (96-108); Creatinine Clr Calc Pharmacy 50.3; Estimated Glomerular Filt Rate > 60; Glucose Random 106 mg/dL (60-115); Potassium 4.1 mmol/L (3.3-5.1); Sodium 141 mmol/L (135-145)
[2020-07-15 06:57] LABS: INTERNATIONAL NORM RATIO 1.8 (0.9-1.1)
[2020-07-15 07:44] LABS: Glucose, Whole Blood 97 mg/dL (60-115)
[2020-07-15] MEDS: Hydroxychloroquine Sulfate 200 MG TABLET PO ×2 (09:03→20:48)
[2020-07-15] MEDS: Spironolactone 25 MG TABLET 12.5 MG PO (09:03)
[2020-07-15] MEDS: atenoloL 50 MG TABLET PO (09:05)
[2020-07-15] MEDS: amLODIPine Besylate 5 MG TABLET PO (09:05)
[2020-07-15] MEDS: Folic Acid 1 MG TABLET PO (09:05)
[2020-07-15] MEDS: 0.9 % Sodium Chloride Flush 3 ML SYRINGE IVFLUSH ×3 (09:06→23:31)
[2020-07-15] MEDS: Furosemide 40 MG/4 ML VIAL IVPUSH (10:05)
--- NOTE | 2020-07-15 10:15 | P.PNIM_ITS ---
Subjective Subjective Date of Service: 07/15/20 <Luciana Starks NP - Last Filed: 07/15/20 10:18> 07/15/20 <Parvez Loza MD - Last Filed: 07/15/20 17:07> Interval History: Follow up Pyelo and CHF No back pain or sob oob to chair eating breakfast <Luciana Starks NP - Last Filed: 07/15/20 10:18> Physical Exam Vital Signs: Vital Signs: Last Vital Signs Temp 97.8 F 07/15/20 07:30 Pulse 59 07/15/20 09:05 Resp 16 07/15/20 07:30 BP 110/62 07/15/20 09:05 Pulse Ox 96 07/15/20 07:30 Body Mass Index 34.5 <Luciana Starks NP - Last Filed: 07/15/20 10:18> Appearing in no acute distress lung sounds are clear to auscultation heart regular rate rhythm, clear S1, S2 positive bowel sounds, abdomen is soft, nontender neuro patient is alert x3, no focal deficits <Luciana Starks NP - Last Filed: 07/15/20 10:18> Objective Data Current Medications Generic Name Dose Route Start Last Admin Trade Name Freq PRN Reason Stop Dose Admin Acetaminophen 650 mg 07/13/20 17:01 07/14/20 22:24 Acetaminophen 325 Mg Tablet PO 325 mg Q6H PRN Administration Pain, Mild (Pain Scale 1-3) Amlodipine Besylate 5 mg 07/14/20 09:00 07/15/20 09:05 Amlodipine Besylate 5 Mg Tablet PO 5 mg DAILY KIKI Administration Protocol Atenolol 50 mg 07/14/20 09:00 07/15/20 09:05 Atenolol 50 Mg Tablet PO 50 mg DAILY KIKI Administration Protocol Folic Acid 1 mg 07/14/20 09:00 07/15/20 09:05 Folic Acid 1 Mg Tablet PO 1 mg DAILY KIKI Administration Furosemide 40 mg 07/14/20 09:00 07/14/20 07:50 Furosemide 40 Mg Tablet PO 40 mg DAILY [facility]IKI Administration Protocol Hydroxychloroquine Sulfate 200 mg 07/13/20 21:00 07/15/20 09:03 Hydroxychloroquine Sulfate 200 Mg Tablet PO 200 mg BID KIKI Administration Ceftriaxone Sodium 1 gm/ 50 mls @ 100 mls/hr 07/14/20 14:00 07/14/20 14:18 Sodium Chloride IV Infused Q24H [facility] Infusion Insulin Human Lispro 0 unit 07/13/20 21:00 07/15/20 09:05 Insulin Lispro 100 Unit/Ml 3 Ml Vial SUBCUT Not Given QIDACHS [facility] Protocol Ondansetron HCl 4 mg 07/13/20 17:01 Ondansetron Hcl 4 Mg/2 Ml Vial IVPUSH Q8H PRN Nausea and Vomiting Sodium Chloride 3 ml 07/14/20 00:00 07/15/20 09:06 0.9 % Sodium Chloride Flush 3 Ml Syringe IVFLUSH 3 ml QSHIFT [facility] Administration Spironolactone 12.5 mg 07/14/20 09:00 07/15/20 09:03 Spironolactone 25 Mg Tablet PO 12.5 mg DAILY [facility] Administration Protocol Warfarin Sodium 3 mg 07/13/20 18:00 07/14/20 17:22 Warfarin Sodium 3 Mg Tablet PO 3 mg DAILY@1800 [facility] Administration <Luciana Starks NP - Last Filed: 07/15/20 10:18> Labs CBC & Chem 7: : 07/15/20 05:44 07/15/20 05:44 <Luciana Starks NP - Last Filed: 07/15/20 10:18> Microbiology Microbiology Results: Microbiology 07/13/20 Unknown Urine clean catch - Clean Catch Midstream Urine Culture - Final 07/13/20 13:33 Blood - Venous Blood Culture - Preliminary No growth after 24 hours. 07/13/20 13:04 Blood - Venous Blood Culture - Preliminary No growth after 24 hours. <Luciana Starks NP - Last Filed: 07/15/20 10:18> Assessment and Plan (1) Acute pyelonephritis: Status: Acute <Luciana Starks NP - Last Filed: 07/15/20 10:18> Assessment and Plan: 80-year-old woman admitted acute pyelonephritis with fever, flank pain and nausea. No overt heart failure noted although BNP is elevated legs are dry and wrinkly. Pyelonephritis. flank pain, nausea, fever urine cx mixed monisha blood cx neg after 24 hrs -Rocephin -antiemetics as needed Heart failure with preserved ejection fraction. No overt failure noted, No rales but BNP higher Some edema to left lower extremity with dryness and wrinkling -Add Lasix IV 40mg bid and then change to po -cardiology following -daily weights -intake and output Atrial fibrillation. Stable heart rate. -continue warfarin and atenolol. Diarrhea. Likely secondary to UTI -Check stool studies and cdiff Pancytopenia. Chronic. Likely secondary to RA treatment Diabetes mellitus. -sliding scale -ADA diet -hold metformin for now Hypertension. Stable pressure. -continue amlodipine Rheumatoid arthritis. -on monthly infusions of Remicade and methotrexate DISPO: Likely home tomorrow, PT consult DVT prophylaxis with warfarin Full code Attending: Dr. Loza <Luciana Starks NP - Last Filed: 07/15/20 10:18> I have seen and evaluated this patient. I have discussed the case and its management with the WAXER and I agree with the findings and plan as documented in the WAXER?s note. Change to oral Abx ad discharge tomorrow <Parvez Loza MD - Last Filed: 07/15/20 17:07>
[2020-07-15 11:30] LABS: Glucose, Whole Blood 120 mg/dL (60-115)
[2020-07-15] MEDS: cefTRIAXone sodium 1 GM in 0.9 % Sodium Chloride 50 ML IV (14:32)
[2020-07-15] MEDS: Acetaminophen 325 MG TABLET 650 MG PO (14:37)
[2020-07-15 16:02] LABS: Glucose, Whole Blood 95 mg/dL (60-115)
--- NOTE | 2020-07-15 18:32 | PM.DS ---
DS: Providers Provider Date of Service: 07/16/20 <JUSTEN Valles - Last Filed: 07/16/20 12:02> Date of admission: 07/13/20 17:01 <Luciana Starks NP - Last Filed: 07/15/20 19:00> Primary care physician: Riccardo Page MD <Luciana Starks NP - Last Filed: 07/15/20 19:00> Consults: 07/13/20 17:01 Consult to Cardiology Routine Consulting Provider: Alfie Jarvis Reason for consultation: ? chf Has provider been notified: No <Luciana Starks NP - Last Filed: 07/15/20 19:00> DS: Diagnosis Discharge Diagnosis (1) Acute pyelonephritis: Status: Acute <Luciana Starks NP - Last Filed: 07/15/20 19:00> (2) (HFpEF) heart failure with preserved ejection fraction: Status: Acute <Luciana Starks NP - Last Filed: 07/15/20 19:00> Problem details: May 2020 <Luciana Starks NP - Last Filed: 07/15/20 19:00> DS: Medications Discharge Medications Home Medications: Home Medications Medication Instructions Recorded Confirmed atenolol 50 mg tablet 50 mg PO DAILY 11/27/19 07/13/20 hydroxychloroquine 200 mg tablet 200 mg PO BID 11/27/19 07/13/20 metformin 500 mg tablet 500 mg PO BID 11/27/19 07/13/20 methotrexate sodium 2.5 mg tablet 2.5 mg PO QWEEK 11/27/19 07/13/20 folic acid 1 mg PO DAILY 05/18/20 07/13/20 atorvastatin 07/13/20 Previous Rx's Medication Instructions Recorded blood sugar diagnostic #250 ea 02/29/20 amlodipine 5 mg PO DAILY #30 tab 05/21/20 cefuroxime axetil 500 mg PO BID #18 tab 05/21/20 furosemide [Lasix] 40 mg PO QAM #30 tab 05/21/20 spironolactone 12.5 mg PO DAILY #30 tab 05/21/20 warfarin 1 mg tablet 1 mg PO DAILY #30 tab 06/04/20 <Luciana Starks NP - Last Filed: 07/15/20 19:00> DS: Summary Hospital Course Hospital Course: From H&P on admission 80-year-old woman presented to the ER with complaints of fever, flank pain, general malaise and achiness. This is been ongoing over the last 4 days. She reported some nausea, no vomiting, increased urination and diarrhea. She did report some chronic shortness of breath especially with ambulation she denied chest pain. She has history of congestive heart failure but appears euvolemic at this time. She did have a fever of 101.6, BNP 665, urinalysis positive, COVID negative, abdominal CT negative for any acute abnormality, chest x-ray shows no large focal consolidation. In the ER she received IV Levaquin, magnesium, Lasix, cefepime and Tylenol. She will be admitted for further management and treatment of acute pyelonephritis. Pyelonephritis. Initially treated with Rocephin, blood cx negative after 48 hours. No back pain. Will discharge home with Ceftin for total of 7 days. HFpEF. Mild exacerbation. Chronic left lower extremity edema. Treated with one dose of IV lasix. Can continue oral lasix at home. No respiratory symptoms and not requiring any supplemental oxygen. She is stable for discharge home to resume VNA services. INR on day of discharge is 1.7. Will increase dose of Coumadin to 4 mg today only. Should repeat INR on Tuesday. Further Coumadin dosing based on outcome of Tuesday's INR per coumadin clinic. New retroperitoneal lymphadenopathy incidentally seen on CT scan. Recommend outpatient follow-up with PCP for further workup as clinically indicated <Luciana Starks NP - Last Filed: 07/15/20 19:00> Time Spent with Patient Time attestation: Total time spent providing and/or coordinating discharge services: <Luciana Starks NP - Last Filed: 07/15/20 19:00> Discharge coordination time: Greater than 30 minutes <JUSTEN Valles - Last Filed: 07/16/20 12:02> Quality: Stroke Does the patient have a stroke diagnosis?: No <JUSTEN Valles - Last Filed: 07/16/20 12:02> Physical Exam Vital Signs: Vital Signs: Last Vital Signs Temp 97.7 F 07/15/20 15:42 Pulse 61 07/15/20 15:42 Resp 19 07/15/20 15:42 BP 122/76 06/01/21 15:42 Pulse Ox 94 07/15/20 15:42 Body Mass Index 34.5 <Luciana Starks NP - Last Filed: 07/15/20 19:00> Const: Nutritional Appearance: well nourished <JUSTEN Valles - Last Filed: 07/16/20 12:02> Orientation/consciousness: patient oriented x3 <JUSTEN Valles - Last Filed: 07/16/20 12:02> HENMT: Head: Yes normocephalic and Yes atraumatic <JUSTEN Valles - Last Filed: 07/16/20 12:02> Eyes: Sclerae: sclerae normal <JUSTEN Valles - Last Filed: 07/16/20 12:02> Chest: Chest palpation & inspection: normal inspection of the chest <JUSTEN Valles - Last Filed: 07/16/20 12:02> Resp: Effort & Inspection: normal respiratory effort and no respiratory distress <JUSTEN Valles - Last Filed: 07/16/20 12:02> Auscultation: clear to auscultation bilaterally <JUSTEN Valles - Last Filed: 07/16/20 12:02> Cardio: Rate: regular rate <JUSTEN Valles - Last Filed: 07/16/20 12:02> GI: Palpation (GI): Soft to palpation and nontender <JUSTEN Valles - Last Filed: 07/16/20 12:02> Neuro: General: patient oriented x3 <JUSTEN Valles - Last Filed: 07/16/20 12:02> Cranial nerves: Yes CN's II-XII intact bilaterally and Yes Bilaterally intact EOM present <JUSTEN Valles - Last Filed: 07/16/20 12:02> DS: Data Data Completed and Pending Labs on day of discharge: Laboratory Results - last 24 hr 07/14/20 07/15/20 07/15/20 19:52 05:44 05:44 WBC 5.4 RBC 3.73 L Hgb 10.8 L Hct 33.6 L MCV 90.1 MCH 29.0 MCHC 32.1 RDW 16.0 Plt Count 142 L MPV 10.4 Absolute Nucleated RBC 0.000 Nucleated RBC % (auto) 0.0 PT 21.0 H INR 1.8 H Sodium Potassium Chloride Carbon Dioxide Anion Gap BUN Creatinine Estim Creat Clear Calc Estimated GFR POC Glucose 101 Random Glucose Calcium 07/15/20 07/15/20 07/15/20 05:44 07:29 11:03 WBC RBC Hgb Hct MCV MCH MCHC RDW Plt Count MPV Absolute Nucleated RBC Nucleated RBC % (auto) PT INR Sodium 141 Potassium 4.1 Chloride 105 Carbon Dioxide 29 Anion Gap 11 L BUN 27 H Creatinine 0.87 Estim Creat Clear Calc 50.3 Estimated GFR > 60 POC Glucose 97 120 H Random Glucose 106 Calcium 8.9 07/15/20 15:48 WBC RBC Hgb Hct MCV MCH MCHC RDW Plt Count MPV Absolute Nucleated RBC Nucleated RBC % (auto) PT INR Sodium Potassium Chloride Carbon Dioxide Anion Gap BUN Creatinine Estim Creat Clear Calc Estimated GFR POC Glucose 95 Random Glucose Calcium Preliminary micro results at discharge 07/13/20 13:33 Blood Culture - Preliminary Blood - Venous No growth after 48 hours. 07/13/20 13:04 Blood Culture - Preliminary Blood - Venous No growth after 48 hours. <Luciana Starks NP - Last Filed: 07/15/20 19:00> Discharge Plan Discharge Patient Disposition: Home Health Service <Luciana Starks NP - Last Filed: 07/15/20 19:00> Discharge Diagnosis: Pyelonephritis HFpEF <Luciana Starks NP - Last Filed: 07/15/20 19:00> Pyelonephritis HFpEF <JUSTEN Valles - Last Filed: 07/16/20 12:02> Pyelonephritis HFpEF <Parvez Loza MD - Last Filed: 07/16/20 17:57> Referrals: CONG VISITING NURSE [Other] - 1 Week Po,Riccardo Oropeza MD [Primary Care Provider] - 1 Week <Luciana Starks NP - Last Filed: 07/15/20 19:00> Discharge Medications: New cefuroxime axetil 250 mg tablet 250 mg PO BID Qty: 10 RF: 0 Continued (DME) [employer] Ultra Blue Test Strip Strip See Rx Instructions .ROUTE .MEDSUPPLY Qty: 250 RF: 3 warfarin 1 mg tablet 1 mg PO DAILY Qty: 30 RF: 8 folic acid 1 mg Tablet 1 mg PO DAILY RF: 0 amlodipine 5 mg Tablet 5 mg PO DAILY Qty: 30 RF: 0 spironolactone 25 mg Tablet 12.5 mg PO DAILY Qty: 30 RF: 0 furosemide [Lasix] 40 mg tablet 40 mg PO QAM Qty: 30 RF: 0 atorvastatin RF: 0 atenolol 50 mg tablet 50 mg PO DAILY RF: 0 metformin 500 mg tablet 500 mg PO BID RF: 0 methotrexate sodium 2.5 mg tablet 2.5 mg PO QWEEK RF: 0 hydroxychloroquine 200 mg tablet 200 mg PO BID RF: 0 Discontinued cefuroxime axetil 500 mg tablet 500 mg PO BID Qty: 18 RF: 0 <Luciana Starks NP - Last Filed: 07/15/20 19:00> Discharge Orders: Discharge Order (Routine); Ordered 07/16/20 Ordered By: Allegra Desir <Luciana Starks NP - Last Filed: 07/15/20 19:00> Diet: advance to usual diet <Luciana Starks NP - Last Filed: 07/15/20 19:00> advance to usual diet <JUSTEN Valles - Last Filed: 07/16/20 12:02> advance to usual diet <Parvez Loza MD - Last Filed: 07/16/20 17:57> Activity on Discharge: As tolerated <Luciana Starks NP - Last Filed: 07/15/20 19:00> As tolerated <JUSTEN Valles - Last Filed: 07/16/20 12:02> As tolerated <Parvez Loza MD - Last Filed: 07/16/20 17:57> Stand Alone Forms: Patient Portal Discharge page <Luciana Starks NP - Last Filed: 07/15/20 19:00> Other Ambulatory Orders: Prothrombin Time INR (Routine) Timeframe: 20200718 Facility: [facility] - Location: Laboratory Ordered By: Allegra Desir <Luciana Starks NP - Last Filed: 07/15/20 19:00> Care Plan Goals: Resolution of urinary symptoms <Luciana Starks NP - Last Filed: 07/15/20 19:00> Health Concerns: Pyelonephritis HFpEF <Luciana Starks NP - Last Filed: 07/15/20 19:00> Plan of Treatment: Call to schedule Follow up with primary care provider INR today is 1.4. Take 4mg of coumadin today and get INR checked on Tuesday. Further dosing based on INR on Tuesday. Take antibiotic as prescribed. <Luciana Starks NP - Last Filed: 07/15/20 19:00> Assessment: See discharge summary I have seen and evaluated this patient. I have discussed the case and its management with the REHAB THERAPY MANAGER and I agree with the findings and plan as documented in the PA?s note. -Parvez Loza MD <Luciana Starks NP - Last Filed: 07/15/20 19:00> Discharge Date/Time: 07/16/20 13:08 <Luciana Starks NP - Last Filed: 07/15/20 19:00>
[2020-07-15] MEDS: Warfarin Sodium 3 MG TABLET PO (19:05)
[2020-07-15 19:56] LABS: Glucose, Whole Blood 128 mg/dL (60-115)
[2020-07-16] VITALS: BP 126/68; PULSE 68; RESP 18; TEMP 36.4; O2SAT 95
[2020-07-16 04:00] VITALS: BP 112/64; PULSE 70; RESP 18; TEMP 36.6; O2SAT 96
[2020-07-16 05:21] VITALS: BMI 33.9
[2020-07-16 06:00] LABS: INTERNATIONAL NORM RATIO 1.7 (0.9-1.1); Prothrombin Time 20.6 SEC (10.8-13.0)
[2020-07-16 07:30] LABS: Glucose, Whole Blood 100 mg/dL (60-115)
[2020-07-16 07:55] VITALS: BP 136/72; PULSE 59; RESP 20; TEMP 35.9; O2SAT 97
[2020-07-16] MEDS: Folic Acid 1 MG TABLET PO (09:19)
[2020-07-16] MEDS: Hydroxychloroquine Sulfate 200 MG TABLET PO (09:19)
[2020-07-16] MEDS: atenoloL 50 MG TABLET PO (09:19)
[2020-07-16] MEDS: Furosemide 40 MG TABLET PO (09:19)
[2020-07-16] MEDS: amLODIPine Besylate 5 MG TABLET PO (09:20)
[2020-07-16] MEDS: Spironolactone 25 MG TABLET 12.5 MG PO (09:20)
[2020-07-16] MEDS: 0.9 % Sodium Chloride Flush 3 ML SYRINGE IVFLUSH (09:21)
[2020-07-16 10:55] LABS: Glucose, Whole Blood 128 mg/dL (60-115)
[2020-07-16 10:57] VITALS: PULSE 73; RESP 18; TEMP 36.1; O2SAT 95
[2020-07-16 10:58] VITALS: BP 99/59
[2020-07-16 11:30] VITALS: BP 120/58; PULSE 58; RESP 20
== END 2020-07-16 13:08 | disposition home health service (06) | DRG 689 ==
LOC: HO.ED 16:30 → HO.EDOVER 17:10 → HO.IMC 17:14
PROVIDERS: Nurse Practitioner Acute Care; Physician Assistant Medical; Admitting Provider Internal Medicine; Emergency Provider Emergency Medicine Emergency Medical Services; PCP Internal Medicine; Visit Provider Internal Medicine
DX: N10 Acute pyelonephritis (principal); I50.33 Acute on chronic diastolic (congestive) heart failure; L03.116 Cellulitis of left lower limb; D61.818 Other pancytopenia; I48.19 Other persistent atrial fibrillation; I11.0 Hypertensive heart disease with heart failure; M06.9 Rheumatoid arthritis, unspecified; R59.0 Localized enlarged lymph nodes; I27.20 Pulmonary hypertension, unspecified; Z20.822 Contact with and (suspected) exposure to COVID-19; Z86.73 Personal history of transient ischemic attack (TIA), and cerebral infarction without residual deficits; Z79.01 Long term (current) use of anticoagulants; Z79.84 Long term (current) use of oral hypoglycemic drugs; Z79.899 Other long term (current) drug therapy
CPT/HCPCS: 36415; 71046; 74177; 80048; 80076; 81001; 82947; 83605; 83880; 84484; 85025; 85027; 85610; 87040; 87086; 87635; 93005; 96365; 96366; 96368; 96375; 99285; J0692; J0696; J1940; J1956; J3475; Q9967

== ENCOUNTER 2020-09-22 07:28 | Outpatient (REF) | payer MEDICARE, OTHER, SELFPAY ==
[2020-09-22 10:07] LABS: INTERNATIONAL NORM RATIO 1.9 (0.9-1.1); Prothrombin Time 22.2 SEC (9.9-13.0)
== END 2020-09-22 07:29 | disposition home or self-care (01) ==
LOC: HO.LHD 07:28
PROVIDERS: Visit Provider Internal Medicine
DX: I48.0 Paroxysmal atrial fibrillation (principal)
CPT/HCPCS: 36415; 85610

== ENCOUNTER 2020-09-29 06:34 | Outpatient (REF) | payer MEDICARE, OTHER, SELFPAY ==
[2020-09-29 11:24] LABS: INTERNATIONAL NORM RATIO 2.2 (0.9-1.1); Prothrombin Time 25.1 SEC (9.9-13.0)
== END 2020-09-29 06:35 | disposition home or self-care (01) ==
LOC: HO.LHD 06:34
PROVIDERS: Visit Provider Internal Medicine
DX: I48.0 Paroxysmal atrial fibrillation (principal)
CPT/HCPCS: 36415; 85610

== ENCOUNTER 2020-10-06 07:47 | Outpatient (REF) | payer MEDICARE, OTHER, SELFPAY ==
[2020-10-06 10:05] LABS: INTERNATIONAL NORM RATIO 1.7 (0.9-1.1); Prothrombin Time 20.1 SEC (9.9-13.0)
== END 2020-10-06 07:48 | disposition home or self-care (01) ==
LOC: HO.LHD 07:47
PROVIDERS: Visit Provider Internal Medicine
DX: I48.0 Paroxysmal atrial fibrillation (principal)
CPT/HCPCS: 36415; 85610

== ENCOUNTER 2020-10-13 00:52 | Outpatient (REF) | payer MEDICARE, OTHER, SELFPAY ==
[2020-10-13 10:50] LABS: INTERNATIONAL NORM RATIO 2.2 (0.9-1.1); Prothrombin Time 25.8 SEC (9.9-13.0)
== END 2020-10-13 00:53 | disposition home or self-care (01) ==
LOC: HO.LHD 00:52
PROVIDERS: Visit Provider Internal Medicine
DX: I48.0 Paroxysmal atrial fibrillation (principal)
CPT/HCPCS: 36415; 85610

== ENCOUNTER 2020-10-21 06:29 | Outpatient (REF) | payer MEDICARE, OTHER, SELFPAY ==
[2020-10-21 11:05] LABS: INTERNATIONAL NORM RATIO 2.6 (0.9-1.1); Prothrombin Time 30.2 SEC (9.9-13.0)
== END 2020-10-21 06:30 | disposition home or self-care (01) ==
LOC: HO.LHD 06:29
PROVIDERS: Visit Provider Internal Medicine
DX: I48.19 Other persistent atrial fibrillation (principal)
CPT/HCPCS: 36415; 85610

== ENCOUNTER 2020-10-27 08:15 | Outpatient (REF) | payer MEDICARE, OTHER, SELFPAY ==
[2020-10-27 11:05] LABS: INTERNATIONAL NORM RATIO 2.9 (0.9-1.1); Prothrombin Time 34.2 SEC (9.9-13.0)
== END 2020-10-27 08:16 | disposition home or self-care (01) ==
LOC: HO.LHD 08:15
PROVIDERS: Visit Provider Internal Medicine
DX: I48.0 Paroxysmal atrial fibrillation (principal)
CPT/HCPCS: 36415; 85610

== ENCOUNTER 2020-11-03 05:59 | Outpatient (REF) | payer MEDICARE, OTHER, SELFPAY ==
[2020-11-03 10:07] LABS: INTERNATIONAL NORM RATIO 2.9 (0.9-1.1); Prothrombin Time 33.2 SEC (9.9-13.0)
== END 2020-11-03 06:00 | disposition home or self-care (01) ==
LOC: HO.LHD 05:59
PROVIDERS: Visit Provider Internal Medicine
DX: I48.0 Paroxysmal atrial fibrillation (principal)
CPT/HCPCS: 36415; 85610

== ENCOUNTER 2020-11-05 16:55 | Emergency (ER) | payer MEDICARE, OTHER, SELFPAY ==
--- NOTE | ~2020-11-05 | US_ITS ---
EXAMINATION: US VENOUS ULTRASOUND WITH DOPPLER LOWER EXTREMITY, LEFT CLINICAL INFORMATION: Pain and edema COMPARISON: None TECHNIQUE: Ultrasound of the deep veins is performed from the hip to the calf with compression sonography and color and pulse Doppler assessment. Spectral analysis with color-flow imaging is performed. FINDINGS: There is normal venous compression and respiratory variation and augmented flow. The visualized common femoral vein, superficial femoral vein, profunda femoral vein, popliteal vein, and the trifurcation region shows no evidence of deep venous thrombosis. The left peroneal veins are not visualized. There is no significant popliteal fossa cyst. If the patient's symptoms persist, followup ultrasound in 5 days 7 days might be of value to exclude proximal propagation from a non-visualized calf vein. US/US venous duplex LE IMPRESSION: No DVT demonstrated in the left lower extremity.
--- NOTE | ~2020-11-05 | XR_ITS ---
EXAMINATION: PORTABLE CHEST 1 VIEW CLINICAL INFORMATION: LE edema, rule out chf . COMPARISON: 07/13/2020. TECHNIQUE: Portable frontal view of the chest was obtained. FINDINGS: Lungs well-expanded. Chronic appearing coarsened reticular markings are again seen bilaterally. There is central vascular prominence which is similar to prior study. Right hilar prominence is been unchanged from 2015. I cannot exclude a component of underlying pulmonary arterial hypertension. No superimposed focal infiltrate, edema, or pneumothorax. Linear scarring or atelectasis bilaterally. Right external what is prominent with vascular calcification in the aorta. Degenerative changes in the shoulders. XR/XR chest 1V IMPRESSION: Chronic appearing changes similar to recent prior studies without acute superimposed process. There is central vascular prominence but this is chronic appearing finding when compared to the studies.
[2020-11-05 17:22] VITALS: BP 168/90; PULSE 78; O2SAT 97; BMI 36.3
--- NOTE | 2020-11-05 17:30 | ED_ITS ---
HPI - Extremity Problem General Chief complaint: Extremity Problem Stated complaint: low left leg edema Time Seen by Provider: 11/05/20 17:28 Source: patient and EMS Mode of arrival: EMS Limitations: no limitations History of Present Illness HPI Narrative: 80-year-old female came in for evaluation of left lower extremity edema. Swelling in the left lower extremity started 5 days ago, declined any trauma or fall to the left lower extremity, patient started to develop blisters on the top of the left foot, de shortness of breath only with exertion which is normal for the patient. Patient declined chest pain, no fever, no chills. Patient with history of atrial fibrillation on Coumadin for anticoagulation. Patient declined recent traveling or prolonged immobilization. Related Data Home Medications Medication Instructions Recorded Confirmed atenolol 50 mg tablet 50 mg PO DAILY 11/27/19 11/05/20 hydroxychloroquine 200 mg tablet 200 mg PO BID 11/27/19 11/05/20 metformin 500 mg tablet 500 mg PO BID 11/27/19 11/05/20 methotrexate sodium 2.5 mg tablet 2.5 mg PO QWEEK 11/27/19 07/13/20 folic acid 1 mg tablet 1 mg PO DAILY 05/18/20 11/05/20 atorvastatin DAILY 07/13/20 sertraline 25 mg tablet (Zoloft) 25 mg PO DAILY 09/01/20 11/05/20 warfarin 1 mg tablet 2 mg PO DAILY 09/01/20 11/05/20 Previous Rx's Medication Instructions Recorded blood sugar diagnostic (OneTouch #250 ea 02/29/20 Ultra Blue Test Strip) amlodipine 5 mg tablet 5 mg PO DAILY #30 tab 05/21/20 furosemide 40 mg tablet (Lasix) 40 mg PO QAM #30 tab 05/21/20 spironolactone 25 mg tablet 12.5 mg PO DAILY #30 tab 05/21/20 cefuroxime axetil 250 mg tablet 250 mg PO BID #10 tab 07/15/20 Allergies Allergy/AdvReac Type Severity Reaction Status Date / Time shellfish derived Allergy Unknown itchy Verified 06/09/20 10:21 procaine [From Novocain] AdvReac Unknown makes Verified 06/09/20 10:21 patient itchy,puffy Review of Systems Review of Systems: All other systems are reviewed and are negative Constitutional: Reports as per HPI and Reports no additional constitutional complaints Eyes: Reports as per HPI and Reports no additional eye complaints Reports system reviewed and no additional complaints, except as documented Cardiovascular: Reports as per HPI and Reports no additional cardiovascular complaints Respiratory: Reports as per HPI and Reports no additional respiratory complaints Gastrointestinal: Reports as per HPI and Reports no additional gastrointestinal complaints Genitourinary: Reports no additional female genitourinary complaints Musculoskeletal: Reports no additional musculoskeletal complaints Skin/Breast: Reports system reviewed and no additional complaints, except as docu Psychiatric: Reports no additional psychiatric complaints Endocrine: Reports no additional endocrine complaints Hematologic/Lymphatic: Reports no additional hematologic/lymphatic complaints Allergic/Immunologic: Reports no additional allergic/immunologic complaints Reports system reviewed and no additional complaints, except as documented and Reports Abnormal speech present [facility] Past Medical History Medical History (HFpEF) heart failure with preserved ejection fraction Anxiety and depression Atrial fibrillation Chronic anticoagulation CVA (cerebral vascular accident) Hypercholesterolemia Hypertension Lumbar vertebral fracture Obesity (BMI 30-39.9) Rheumatoid arthritis Sepsis TIA (transient ischemic attack) Type 2 diabetes mellitus with hyperglycemia Uterine cancer Surgical History History of appendectomy History of left knee replacement History of right knee joint replacement S/P ANTONIO-BSO Family History Family History Father Diabetes CAD (coronary artery disease) Mother Diabetes Hypertension Perforated ulcer Sister Diabetes Social History Social History Household Members: Spouse Housing: House Do you presently have visiting nurse or other home services: Yes Alcohol intake: never Patient Tobacco Use Status: Never used Tobacco Advance Directives: No Advance Directives Information Provided: No service: No Current occupational status: retired Physical Exam Vital Signs: Vital Signs: Body Mass Index 36.3 Vital signs have been reviewed as appeared to be correct. Blood pressure normal. Heart rate normal. Respiration rate normal. Temperature normal. Oxygen saturation normal. Appearance: Alert. Oriented X3. No acute distress. Head: Normal external exam. Normocephalic. Atraumatic. No Do signs noted. No raccoon eyes noted Eyes: PERRLA. EOMI. Conjunctiva and sclera normal. Eyelids normal. ENT: TM's Normal. Pharynx normal. Uvula midline. Moist mucous membranes. No trismus noted. No drooling noted. No muffled voice noted. Neck: Normal inspection. Neck supple. FROM. No adenopathy. Thyroid Normal. No meningeal signs. No neck mass noted. CVS: Normal heart rate and rhythm. Heart sound normal. No murmurs noted. Pulses normal throughout. Respiratory: No respiratory distress. Painless inspiration. Breath sounds normal. No wheezes/rales/rhonchi noted. Chest nontender. No accessory muscle usage noted or decreased air movement noted. Abdomen: Soft and nontender. Bowel sounds normal in all 4 quadrants. No distention noted. No organomegaly noted. No visible injury noted. Back: No CVA tenderness. Full range of motion noted. Skin: Skin warm and dry. Normal skin color. Normal skin turgor. No rashes/lesions/lacerations noted. Extremities: Bilateral lower extremity edema,+1 on the right and +2 on the left with tenderness in the lower leg, few blisters on top of the left foot. Neuro: Oriented X 3. Cranial nerve exam: II-XII are grossly intact No motor deficit. No sensory deficit. Reflexes normal. Course Course Course Narrative: Assessment and plan. 80-year-old female came in with left leg swelling, patient had ultrasound in the emergency department no DVT, no active congestive heart failure at this point. Patient was given Lasix in the emergency department. Patient was instructed to follow up with her PCP, or return if increased shortness of breath. Patient also was offered placement to rehab but patient rather to go home for her . MDM - Extremity (Nontraumatic) Lab Data Attestation: I reviewed the patient's lab results. Result diagrams: 11/05/20 18:08 11/05/20 18:08 Labs: Lab Results 11/05/20 11/05/20 11/05/20 Range/Units 18:08 18:08 18:08 WBC 5.0 (4.8-10.8) X10*3/uL RBC 3.53 L (4.20-5.50) X10*6/uL Hgb 10.9 L (12.0-16.0) g/dl Hct 34.3 L (37-47) % MCV 97.2 (80-98) fL MCH 30.9 (27.0-33.0) pg MCHC 31.8 (31.0-35.0) g/dl RDW 14.7 (11.0-16.0) % Plt Count 151 L (160-400) X10*3/uL MPV 10.2 (9.4-12.3) fL Immature Gran % (Auto) 0.2 (0.0-0.4) % Neut % (Auto) 61.6 (45-73) % Lymph % (Auto) 24.8 (20-40) % [place] % (Auto) 9.8 (2-11) % Eos % (Auto) 3.2 (0-4) % Baso % (Auto) 0.4 (0-2) % Lymph # (Auto) 1.2 (1.2-4.9) X10*3/uL [place] # (Auto) 0.5 (0.1-1.2) X10*3/uL Eos # (Auto) 0.2 (0.0-0.4) X10*3/uL Baso # (Auto) 0.0 (0.0-0.2) X10*3/uL Abs Immat Gran (auto) 0.01 (0.00-0.03) X10*3/uL Absolute Neuts (auto) 3.1 (2.0-8.3) X10*3/uL Absolute Nucleated RBC 0.000 (0.0-0.012) X10*3/uL Nucleated RBC % (auto) 0.0 (0.0-0.2) /100WBC PT (9.9-13.0) SEC INR (0.9-1.1) APTT (24.1-38.0) SEC Sodium 142 (135-145) mmol/L Potassium 4.2 (3.3-5.1) mmol/L Chloride 107 (96-108) mmol/L Carbon Dioxide 26 (22-29) mmol/L Anion Gap 13 (12-20) BUN 15 (9-16) mg/dL Creatinine 0.72 (0.5-1.4) mg/dL Estim Creat Clear Calc 60.0 Estimated GFR > 60 Random Glucose 94 (60-115) mg/dL Calcium 9.3 (8.4-10.2) mg/dL B-Natriuretic Peptide 609 H (<100) pg/mL Urine Color Urine Appearance Urine pH (5.0-8.0) Ur Specific [place] (1.005-1.025) Urine Protein (NEG-TRACE) MG/DL Urine Glucose (UA) (NEG) MG/DL Urine Ketones (NEG) MG/DL Urine Blood (NEG) Urine Nitrite (NEG) Ur Leukocyte Esterase (NEG) Urine RBC (0) /HPF Urine WBC (0-4) /HPF Ur Squamous Epith Cells /LPF Urine Bacteria /LPF Urine Mucus /LPF 11/05/20 11/05/20 Range/Units 18:08 18:44 WBC (4.8-10.8) X10*3/uL RBC (4.20-5.50) X10*6/uL Hgb (12.0-16.0) g/dl Hct (37-47) % MCV (80-98) fL MCH (27.0-33.0) pg MCHC (31.0-35.0) g/dl RDW (11.0-16.0) % Plt Count (160-400) X10*3/uL MPV (9.4-12.3) fL Immature Gran % (Auto) (0.0-0.4) % Neut % (Auto) (45-73) % Lymph % (Auto) (20-40) % [place] % (Auto) (2-11) % Eos % (Auto) (0-4) % Baso % (Auto) (0-2) % Lymph # (Auto) (1.2-4.9) X10*3/uL [place] # (Auto) (0.1-1.2) X10*3/uL Eos # (Auto) (0.0-0.4) X10*3/uL Baso # (Auto) (0.0-0.2) X10*3/uL Abs Immat Gran (auto) (0.00-0.03) X10*3/uL Absolute Neuts (auto) (2.0-8.3) X10*3/uL Absolute Nucleated RBC (0.0-0.012) X10*3/uL Nucleated RBC % (auto) (0.0-0.2) /100WBC PT 33.0 H (9.9-13.0) SEC INR 2.8 H (0.9-1.1) APTT 50.0 H (24.1-38.0) SEC Sodium (135-145) mmol/L Potassium (3.3-5.1) mmol/L Chloride (96-108) mmol/L Carbon Dioxide (22-29) mmol/L Anion Gap (12-20) BUN (9-16) mg/dL Creatinine (0.5-1.4) mg/dL Estim Creat Clear Calc Estimated GFR Random Glucose (60-115) mg/dL Calcium (8.4-10.2) mg/dL B-Natriuretic Peptide (<100) pg/mL Urine Color YELLOW Urine Appearance CLEAR Urine pH 6.0 (5.0-8.0) Ur Specific [place] 1.020 (1.005-1.025) Urine Protein NEG (NEG-TRACE) MG/DL Urine Glucose (UA) NEG (NEG) MG/DL Urine Ketones NEG (NEG) MG/DL Urine Blood 1+ H (NEG) Urine Nitrite NEG (NEG) Ur Leukocyte Esterase NEG (NEG) Urine RBC 1-4 (0) /HPF Urine WBC 0 (0-4) /HPF Ur Squamous Epith Cells 1+ /LPF Urine Bacteria 2+ /LPF Urine Mucus 2+ /LPF Imaging Data Chest x-ray: Radiologist's impression: Chronic appearing changes similar to recent prior studies without acute superimposed process. There is central vascular prominence but this is chronic appearing finding when compared to the studies. ? Left lower extremities venous ultrasound.: Radiologist's impression: No DVT in the left lower extremity. Discharge Plan Discharge Clinical Impression: Leg edema, left Patient Disposition: Home, Self-Care Instructions: Edema (ED) Prescriptions: No [facility] (DME) OneTouch Ultra Blue Test Strip Strip See Rx Instructions .ROUTE .MEDSUPPLY Qty: 250 RF: 3 sertraline [Zoloft] 25 mg Tablet 25 mg PO DAILY RF: 0 warfarin 1 mg tablet 2 mg PO DAILY RF: 0 folic acid 1 mg Tablet 1 mg PO DAILY RF: 0 amlodipine 5 mg Tablet 5 mg PO DAILY Qty: 30 RF: 0 spironolactone 25 mg Tablet 12.5 mg PO DAILY Qty: 30 RF: 0 furosemide [Lasix] 40 mg tablet 40 mg PO QAM Qty: 30 RF: 0 atorvastatin DAILY RF: 0 cefuroxime axetil 250 mg tablet 250 mg PO BID Qty: 10 RF: 0 atenolol 50 mg tablet 50 mg PO DAILY RF: 0 metformin 500 mg tablet 500 mg PO BID RF: 0 methotrexate sodium 2.5 mg tablet 2.5 mg PO QWEEK RF: 0 hydroxychloroquine 200 mg tablet 200 mg PO BID RF: 0 Referrals: Po,Riccardo Oropeza MD [Primary Care Provider] - 2 days
[2020-11-05 18:13] LABS: MANUAL DIFF FLAG NO
--- NOTE | 2020-11-05 18:17 | PC.NURSE ---
patient arrives to with c/o LLE pain. States has been on going for 5 days. Patient A+Ox4. Labs drawn and sent. IV placed and flushed. Resting safely.
[2020-11-05 18:23] LABS: Basophils Percent Auto 0.4 % (0-2); Eosinophils Absolute Auto 0.2 X10*3/uL (0.0-0.4); Eosinophils Percent Auto 3.2 % (0-4); Hematocrit 34.3 % (37-47); Hemoglobin 10.9 g/dl (12.0-16.0); Imm Gran Abs Auto 0.01 X10*3/uL (0.00-0.03); Imm Gran Pct Auto 0.2 % (0.0-0.4); Lymphocytes Absolute Auto 1.2 X10*3/uL (1.2-4.9); Lymphocytes Percent Auto 24.8 % (20-40); Mean Corpuscular HGB Conc 31.8 g/dl (31.0-35.0); Mean Corpuscular Hemoglobin 30.9 pg (27.0-33.0); Mean Corpuscular Volume 97.2 fL (80-98); Mean Platelet Volume 10.2 fL (9.4-12.3); Monocytes Absolute Auto 0.5 X10*3/uL (0.1-1.2); Monocytes Percent Auto 9.8 % (2-11); Neutrophils Absolute Auto 3.1 X10*3/uL (2.0-8.3); Neutrophils Percent Auto 61.6 % (45-73); Platelet Count 151 X10*3/uL (160-400); Red Blood Count 3.53 X10*6/uL (4.20-5.50); Red Cell Distribution Width 14.7 % (11.0-16.0)
[2020-11-05 18:24] LABS: INTERNATIONAL NORM RATIO 2.8 (0.9-1.1)
[2020-11-05 18:34] LABS: B Type Natriuretic Peptide 609 pg/mL (<100)
[2020-11-05 18:36] LABS: Anion Gap 13 (12-20); Blood Urea Nitrogen 15 mg/dL (9-16); Calcium 9.3 mg/dL (8.4-10.2); Carbon Dioxide 26 mmol/L (22-29); Chloride 107 mmol/L (96-108); Estimated Glomerular Filt Rate > 60; Glucose Random 94 mg/dL (60-115); Potassium 4.2 mmol/L (3.3-5.1); Sodium 142 mmol/L (135-145)
[2020-11-05 18:49] LABS: Appearance Urine CLEAR; Color Urine YELLOW; Glucose Urine UA NEG (NEG); Leukocyte Esterase Urine NEG (NEG); Nitrite Urine NEG (NEG); UACC Culture Trigger NO; Urine Blood 1+ (NEG); Urine Ketones NEG (NEG); Urine Protein NEG (NEG-TRACE)
[2020-11-05 18:57] LABS: Bacteria Urine 2+ /LPF; Mucus Urine 2+ /LPF; Squamous Epithelial Cell Urine 1+ /LPF; WBC Urine 0 /HPF (0-4)
[2020-11-05] MEDS: Furosemide 20 MG TABLET PO (19:06)
--- NOTE | 2020-11-05 22:08 | MHC.CM.ED ---
CM was asked to arrange a wheelchair van for this patient for transportation back home. As paperwork was being completed, pt's arrived to drive her home. CM called [facility] to cancel the transport.
== END 2020-11-05 22:08 | disposition home or self-care (01) ==
PROVIDERS: Emergency Provider Emergency Medicine; PCP Internal Medicine
DX: R60.0 Localized edema (principal); M79.605 Pain in left leg; Z79.899 Other long term (current) drug therapy
CPT/HCPCS: 36415; 71045; 80048; 81001; 83880; 85025; 85610; 85730; 93971; 99282; 99283; 99284

== ENCOUNTER 2020-11-10 06:53 | Outpatient (REF) | payer MEDICARE, OTHER, SELFPAY ==
[2020-11-10 09:30] LABS: INTERNATIONAL NORM RATIO 2.9 (0.9-1.1); Prothrombin Time 33.6 SEC (9.9-13.0)
== END 2020-11-10 06:54 | disposition home or self-care (01) ==
LOC: HO.LHD 06:53
PROVIDERS: Visit Provider Internal Medicine
DX: I48.0 Paroxysmal atrial fibrillation (principal)
CPT/HCPCS: 36415; 85610

== ENCOUNTER 2020-11-17 08:12 | Outpatient (REF) | payer MEDICARE, OTHER, SELFPAY ==
[2020-11-17 10:32] LABS: Prothrombin Time 34.5 SEC (9.9-13.0)
[2020-11-17 11:02] LABS: Cholesterol 204 mg/dL; HDL Cholesterol 43 mg/dL; LDL Cholesterol Calculated 128 mg/dl; Triglycerides 167 mg/dL
== END 2020-11-17 08:13 | disposition home or self-care (01) ==
LOC: HO.LHD 08:12
PROVIDERS: Nurse Practitioner Family; Visit Provider Internal Medicine
DX: I48.0 Paroxysmal atrial fibrillation (principal); E78.00 Pure hypercholesterolemia, unspecified
CPT/HCPCS: 36415; 80061; 85610

== ENCOUNTER 2020-11-24 06:57 | Outpatient (REF) | payer MEDICARE, OTHER, SELFPAY ==
[2020-11-24 10:18] LABS: INTERNATIONAL NORM RATIO 3.2 (0.9-1.1); Prothrombin Time 36.8 SEC (9.9-13.0)
== END 2020-11-24 06:58 | disposition home or self-care (01) ==
LOC: HO.LHD 06:57
PROVIDERS: Visit Provider Internal Medicine
DX: I48.0 Paroxysmal atrial fibrillation (principal)
CPT/HCPCS: 36415; 85610

== ENCOUNTER 2020-12-01 08:05 | Outpatient (REF) | payer MEDICARE, OTHER, SELFPAY ==
[2020-12-01 10:41] LABS: INTERNATIONAL NORM RATIO 4.9 (0.9-1.1); Prothrombin Time 58.1 SEC (9.9-13.0)
== END 2020-12-01 08:06 | disposition home or self-care (01) ==
LOC: HO.LHD 08:05
PROVIDERS: Visit Provider Internal Medicine
DX: I48.0 Paroxysmal atrial fibrillation (principal)
CPT/HCPCS: 36415; 85610

== ENCOUNTER 2020-12-08 07:32 | Outpatient (REF) | payer MEDICARE, OTHER, SELFPAY ==
[2020-12-08 09:43] LABS: INTERNATIONAL NORM RATIO 4.5 (0.9-1.1); Prothrombin Time 53.2 SEC (9.9-13.0)
== END 2020-12-08 07:33 | disposition home or self-care (01) ==
LOC: HO.LHD 07:32
PROVIDERS: Visit Provider Internal Medicine
DX: I48.0 Paroxysmal atrial fibrillation (principal)
CPT/HCPCS: 36415; 85610

== ENCOUNTER 2020-12-15 10:38 | Outpatient (REF) | payer MEDICARE, OTHER, SELFPAY ==
[2020-12-15 11:12] LABS: INTERNATIONAL NORM RATIO 3.3 (0.9-1.1); Prothrombin Time 38.2 SEC (9.9-13.0)
== END 2020-12-15 10:39 | disposition home or self-care (01) ==
LOC: HO.LHD 10:38
PROVIDERS: Visit Provider Internal Medicine
DX: I48.0 Paroxysmal atrial fibrillation (principal)
CPT/HCPCS: 36415; 85610

== ENCOUNTER 2020-12-22 06:34 | Outpatient (REF) | payer MEDICARE, OTHER, SELFPAY ==
[2020-12-22 09:42] LABS: INTERNATIONAL NORM RATIO 3.8 (0.9-1.1); Prothrombin Time 44.1 SEC (9.9-13.0)
== END 2020-12-22 06:35 | disposition home or self-care (01) ==
LOC: HO.LHD 06:34
PROVIDERS: Visit Provider Internal Medicine
DX: I48.0 Paroxysmal atrial fibrillation (principal)
CPT/HCPCS: 36415; 85610

== ENCOUNTER 2020-12-29 07:38 | Outpatient (REF) | payer MEDICARE, OTHER, SELFPAY ==
[2020-12-29 11:56] LABS: INTERNATIONAL NORM RATIO 3.5 (0.9-1.1); Prothrombin Time 40.7 SEC (9.9-13.0)
== END 2020-12-29 07:39 | disposition home or self-care (01) ==
LOC: HO.LHD 07:38
PROVIDERS: Visit Provider Internal Medicine
DX: I48.0 Paroxysmal atrial fibrillation (principal)
CPT/HCPCS: 36415; 85610

== ENCOUNTER 2020-12-29 11:37 | Emergency (ER) | payer MEDICARE, OTHER, SELFPAY ==
--- NOTE | ~2020-12-29 | XR_ITS ---
EXAMINATION: XR HUMERUS, LEFT CLINICAL INFORMATION: Fall, trauma, pain COMPARISON: Chest radiographs 12/29/2020 TECHNIQUE: The left humerus is imaged in 3 views. FINDINGS: No fracture or anterior dislocation. No destructive process. There are degenerative changes glenohumeral joint. Acromioclavicular alignment is normal. XR/XR humerus LT IMPRESSION: No fracture.
--- NOTE | ~2020-12-29 | XR_ITS ---
EXAMINATION: XR CHEST CLINICAL INFORMATION: Fall, trauma, chest pain. COMPARISON: Chest radiographs 11/05/2020, 07/13/2020 TECHNIQUE: Sitting AP view of the chest was obtained. FINDINGS: There is mild coarsening of the bronchovascular markings similar to prior exam 11/05/2020. There is no pneumothorax, airspace consolidation, or definite effusion. The cardiac and hilar and mediastinal contours are stable. There are degenerative changes involving the thoracic spine and bilateral shoulders. XR/XR chest 1V IMPRESSION: No acute intrathoracic disease.
[2020-12-29 11:47] VITALS: BP 220/100; PULSE 56; O2SAT 99
[2020-12-29 11:56] VITALS: BP 218/91; PULSE 69; RESP 18; TEMP 36.5; O2SAT 93; BMI 35.2
--- NOTE | 2020-12-29 12:06 | ED_ITS ---
HPI - Fall General Chief Complaint: Fall Stated Complaint: L CP S/P FALL OUT OF CHAIR AT 5AM Time Seen by Provider: 12/29/20 12:04 Source: patient Mode of arrival: EMS Limitations: no limitations History of Present Illness HPI Narrative: Early this morning patient slid out of the recliner. Patient with left arm pain and left side pain since sliding out of the recliner. She is concerned that this pain is her heart and not due to slipping out of the chair. MD complaint: fall Onset (ago): hour(s) Fall from: chair Fall witnessed: no Place fall occurred: home Loss of consciousness: none Location of injury: chest Severity: mild Associated symptoms (after fall): denies Related Data Home Medications Medication Instructions Recorded Confirmed atenolol 50 mg tablet 50 mg PO DAILY 11/27/19 11/07/20 metformin 500 mg tablet 500 mg PO BID 11/27/19 11/07/20 methotrexate sodium 2.5 mg tablet 2.5 mg PO QWEEK 11/27/19 11/07/20 folic acid 1 mg tablet 1 mg PO DAILY 05/18/20 11/07/20 warfarin 1 mg tablet 2 mg PO DAILY 09/01/20 11/07/20 atorvastatin 10 mg tablet 10 mg PO DAILY 11/07/20 11/07/20 Previous Rx's Medication Instructions Recorded blood sugar diagnostic (OneTouch #250 ea 02/29/20 Ultra Blue Test Strip) spironolactone 25 mg tablet 12.5 mg PO DAILY #30 tab 05/21/20 amlodipine 5 mg tablet 5 mg PO DAILY #30 tab 11/07/20 cholecalciferol (vitamin D3) 1,250 1,250 mcg PO QWEEK 49 Days #7 cap 11/07/20 mcg (50,000 unit) capsule sertraline 50 mg tablet 50 mg PO DAILY 30 Days #30 tab 11/07/20 Allergies Allergy/AdvReac Type Severity Reaction Status Date / Time shellfish derived Allergy Unknown itchy Verified 11/07/20 15:11 procaine [From Novocain] AdvReac Unknown makes Verified 11/07/20 15:11 patient itchy,puffy Review of Systems Constitutional: Constitutional: Reports no additional constitutional complaints Eyes: Eyes: Reports no additional eye complaints ENT: Denies dizziness Cardiovascular: Cardiovascular: Reports no additional cardiovascular complaints Respiratory: Respiratory: Reports as per HPI Gastrointestinal: Gastrointestinal: Reports no additional gastrointestinal complaints Genitourinary: Genitourinary: Reports no additional female genitourinary complaints Musculoskeletal: Musculoskeletal: Reports no additional musculoskeletal complaints Integumentary/Breasts: Skin/Breast: Denies rash Neurologic: Reports system reviewed and no additional complaints, except as documented, Denies dizziness and Denies Sensory deficit (Neuro) Psychiatric: Psychiatric: Denies anxiety [facility] Past Medical History Medical History (HFpEF) heart failure with preserved ejection fraction Acute pyelonephritis Anxiety and depression Atrial fibrillation CHF exacerbation Chronic anticoagulation CVA (cerebral vascular accident) Hypercholesterolemia Hypertension Lumbar vertebral fracture Obesity (BMI 30-39.9) Pneumonia Rheumatoid arthritis Sepsis TIA (transient ischemic attack) Type 2 diabetes mellitus with hyperglycemia Uterine cancer Surgical History History of appendectomy History of colonoscopy History of left knee replacement History of right knee joint replacement S/P ANTONIO-BSO Family History Family History Father Diabetes CAD (coronary artery disease) Mother Diabetes Hypertension Perforated ulcer Sister Diabetes Social History Social History Household Members: Spouse Housing: House Do you presently have visiting nurse or other home services: Yes Alcohol intake: never Patient Tobacco Use Status: Never used Tobacco e-Cigarette/Vaping Use: Never Used Second Hand Smoke Exposure: No Advance Directives: No Advance Directives Information Provided: Yes service: No Current occupational status: retired Physical Exam Vital Signs: Vital Signs: Last Vital Signs Temp 97.7 F 12/29/20 11:56 Pulse 69 12/29/20 11:56 Resp 18 12/29/20 11:56 BP 218/91 H 12/29/20 11:56 Pulse Ox 93 12/29/20 11:56 Body Mass Index 35.2 Const: Other: elderly female , frail appearing Nutritional Appearance: obese Orientation/consciousness: oriented to person and patient oriented x3 Limitations: no limitations HENMT: Head: Yes normal to inspection Ears: external ears normal General nose exam: Normal external nose present Mouth: Normal oral and palatal mucosa present and oropharynx normal Throat: Yes posterior oropharynx normal Eyes: General: appearance normal, both eyes and all related structures Neck: Other: supple Neck: Yes normal visual inspection Chest: Other: left ribs with reproducible pain Resp: Auscultation: clear to auscultation bilaterally Cardio: Jugular venous distension: no JVD Rate: regular rate Rhythm: regular rhythm Heart sounds: S1 normal heart sound present and S2 normal heart sound present GI: Inspection: Yes normal to inspection Palpation (GI): Soft to palpation, nontender and No hepatosplenomegaly present Auscultation: normal bowel sounds : Other: rectal heme negative Skin: General skin exam: no rashes or lesions noted Neuro: General: oriented to person and patient oriented x3 Cranial nerves: Yes CN's II-XII intact bilaterally Motor exam (neuro): 5/5 motor strength present throughout Sensory Exam: No Sensory deficit (Neuro) Extrem: Other: left arm with pain to humerous and bicep, bilateral lower extemity 3+ edema chronic with chronic changes Psych: Appearance: grossly normal Course Reevaluation(s) Reevaluation #1: Patient with normal xrays, physical exam with significant pain to left arm and left chest, doubt cardiac patient with anemia prior, rectal heme negative. patient with prior anemia with HCT to 28, no evidence of active bleeding, she is on coumadin. Will dc on tylenol for her pain Time: 15:08 - Fall Lab Data Result diagrams: 12/29/20 12:55 12/29/20 12:55 Labs: Lab Results 12/29/20 12/29/20 12/29/20 Range/Units 12:55 12:55 12:55 WBC 3.3 L (4.8-10.8) X10*3/uL RBC 2.55 L (4.20-5.50) X10*6/uL Hgb 8.5 L (12.0-16.0) g/dl Hct 27.0 L (37.0-47.0) % MCV 105.9 H (80.0-98.0) fL MCH 33.3 H (27.0-33.0) pg MCHC 31.5 (31.0-35.0) g/dl RDW 21.3 H (11.0-16.0) % Plt Count 65 L (160-400) X10*3/uL MPV 10.6 (9.4-12.3) fL Immature Gran % (Auto) 0.3 (0.0-0.4) % Neut % (Auto) 58.6 (45-73) % Lymph % (Auto) 22.8 (20-40) % [place] % (Auto) 13.5 H (2-11) % Eos % (Auto) 4.5 H (0-4) % Baso % (Auto) 0.3 (0-2) % Lymph # (Auto) 0.8 L (1.2-4.9) X10*3/uL [place] # (Auto) 0.5 (0.1-1.2) X10*3/uL Eos # (Auto) 0.2 (0.0-0.4) X10*3/uL Baso # (Auto) 0.0 (0.0-0.2) X10*3/uL Abs Immat Gran (auto) 0.01 (0.00-0.03) X10*3/uL Absolute Neuts (auto) 2.0 (2.0-8.3) x10*3/uL Absolute Nucleated RBC 0.000 (0.0-0.012) X10*3/uL Nucleated RBC % (auto) 0.0 (0.0-0.2) /100WBC PT (9.9-13.0) SEC INR (0.9-1.1) Sodium 144 (135-145) mmol/L Potassium 3.8 (3.3-5.1) mmol/L Chloride 111 H (96-108) mmol/L Carbon Dioxide 23 (22-29) mmol/L Anion Gap 14 (12-20) BUN 17 H (9-16) mg/dL Creatinine 0.68 (0.5-1.4) mg/dL Estim Creat Clear Calc 62.4 Estimated GFR > 60 Random Glucose 86 (60-115) mg/dL Calcium 8.4 D (8.4-10.2) mg/dL Troponin I High Sens 8.2 (<3.5-17.0) ng/L B-Natriuretic Peptide 563 H (<100) pg/mL 12/29/20 Range/Units 14:45 WBC (4.8-10.8) X10*3/uL RBC (4.20-5.50) X10*6/uL Hgb (12.0-16.0) g/dl Hct (37.0-47.0) % MCV (80.0-98.0) fL MCH (27.0-33.0) pg MCHC (31.0-35.0) g/dl RDW (11.0-16.0) % Plt Count (160-400) X10*3/uL MPV (9.4-12.3) fL Immature Gran % (Auto) (0.0-0.4) % Neut % (Auto) (45-73) % Lymph % (Auto) (20-40) % [place] % (Auto) (2-11) % Eos % (Auto) (0-4) % Baso % (Auto) (0-2) % Lymph # (Auto) (1.2-4.9) X10*3/uL [place] # (Auto) (0.1-1.2) X10*3/uL Eos # (Auto) (0.0-0.4) X10*3/uL Baso # (Auto) (0.0-0.2) X10*3/uL Abs Immat Gran (auto) (0.00-0.03) X10*3/uL Absolute Neuts (auto) (2.0-8.3) x10*3/uL Absolute Nucleated RBC (0.0-0.012) X10*3/uL Nucleated RBC % (auto) (0.0-0.2) /100WBC PT 39.8 H (9.9-13.0) SEC INR 3.4 H (0.9-1.1) Sodium (135-145) mmol/L Potassium (3.3-5.1) mmol/L Chloride (96-108) mmol/L Carbon Dioxide (22-29) mmol/L Anion Gap (12-20) BUN (9-16) mg/dL Creatinine (0.5-1.4) mg/dL Estim Creat Clear Calc Estimated GFR Random Glucose (60-115) mg/dL Calcium (8.4-10.2) mg/dL Troponin I High Sens (<3.5-17.0) ng/L B-Natriuretic Peptide (<100) pg/mL Imaging Data Chest x-ray: Radiologist's impression: There is mild coarsening of the bronchovascular markings similar to prior exam 11/05/2020. There is no pneumothorax, airspace consolidation, or definite effusion. The cardiac and hilar and mediastinal contours are stable. There are degenerative changes involving the thoracic spine and bilateral shoulders. XR/XR chest 1V IMPRESSION: No acute intrathoracic disease. Humerus left: Radiologist's impression: FINDINGS: No fracture or anterior dislocation. No destructive process. There are degenerative changes glenohumeral joint. Acromioclavicular alignment is normal.? XR/XR humerus LT IMPRESSION: No fracture. ECG Data Attestation: I personally reviewed and interpreted this ECG as follows: Interpretation: atrial fibrillation, rate 56, RBBB, no st or twave changes Discharge Plan Discharge Clinical Impression: Chest pain Qualifiers: Chest pain type: unspecified Qualified Code(s): R07.9 - Chest pain, unspecified Arm pain Qualifiers: Laterality: left Qualified Code(s): M79.602 - Pain in left arm Patient Disposition: Home, Self-Care Instructions: Chest Wall Pain (ED), Arm Pain (ED) Additional Instructions: tylenol for pain Prescriptions: No [facility] (DME) OneTouch Ultra Blue Test Strip Strip See Rx Instructions .ROUTE .MEDSUPPLY Qty: 250 RF: 3 warfarin 1 mg tablet 2 mg PO DAILY RF: 0 folic acid 1 mg Tablet 1 mg PO DAILY RF: 0 spironolactone 25 mg Tablet 12.5 mg PO DAILY Qty: 30 RF: 0 atenolol 50 mg tablet 50 mg PO DAILY RF: 0 metformin 500 mg tablet 500 mg PO BID RF: 0 methotrexate sodium 2.5 mg tablet 2.5 mg PO QWEEK RF: 0 sertraline 50 mg tablet 50 mg PO DAILY 30 Days Qty: 30 RF: 0 amlodipine 5 mg tablet 5 mg PO DAILY Qty: 30 RF: 0 cholecalciferol (vitamin D3) 1,250 mcg (50,000 unit) capsule 1,250 mcg PO QWEEK 49 Days Qty: 7 RF: 0 atorvastatin 10 mg tablet 10 mg PO DAILY RF: 0 Referrals: Physician,Unknown J [Primary Care Provider] - 5 days
--- NOTE | 2020-12-29 12:13 | ECG_ITS ---
Test Reason : FALL Blood Pressure : / mmHG Vent. Rate : 056 BPM Atrial Rate : 000 BPM P-R Int : 000 ms QRS Dur : 142 ms QT Int : 512 ms P-R-T Axes : 000 066 -35 degrees QTc Int : 494 ms Atrial fibrillation with slow ventricular response Right bundle branch block T wave abnormality, consider inferior ischemia Abnormal ECG When compared with ECG of 13-JUL-2020 12:22, Vent. rate has decreased BY 34 BPM Referred By: Derik Santos Electronically Signed By:YVES BARRAZA MD
[2020-12-29 13:00] LABS: MANUAL DIFF FLAG NO
[2020-12-29 13:02] LABS: Basophils Percent Auto 0.3 % (0-2); Eosinophils Absolute Auto 0.2 X10*3/uL (0.0-0.4); Eosinophils Percent Auto 4.5 % (0-4); Hemoglobin 8.5 g/dl (12.0-16.0); Imm Gran Abs Auto 0.01 X10*3/uL (0.00-0.03); Imm Gran Pct Auto 0.3 % (0.0-0.4); Lymphocytes Absolute Auto 0.8 X10*3/uL (1.2-4.9); Lymphocytes Percent Auto 22.8 % (20-40); Mean Corpuscular HGB Conc 31.5 g/dl (31.0-35.0); Mean Corpuscular Hemoglobin 33.3 pg (27.0-33.0); Mean Corpuscular Volume 105.9 fL (80.0-98.0); Mean Platelet Volume 10.6 fL (9.4-12.3); Monocytes Absolute Auto 0.5 X10*3/uL (0.1-1.2); Monocytes Percent Auto 13.5 % (2-11); Neutrophils Percent Auto 58.6 % (45-73); Red Blood Count 2.55 X10*6/uL (4.20-5.50); Red Cell Distribution Width 21.3 % (11.0-16.0); White Blood Count 3.3 X10*3/uL (4.8-10.8)
[2020-12-29 13:05] LABS: Platelet Count 65 X10*3/uL (160-400)
[2020-12-29] MEDS: Acetaminophen 325 MG TABLET 650 MG PO (13:09)
[2020-12-29 13:18] LABS: Anion Gap 14 (12-20); Blood Urea Nitrogen 17 mg/dL (9-16); Calcium 8.4 mg/dL (8.4-10.2); Carbon Dioxide 23 mmol/L (22-29); Chloride 111 mmol/L (96-108); Creatinine Clr Calc Pharmacy 62.4; Estimated Glomerular Filt Rate > 60; Glucose Random 86 mg/dL (60-115); Potassium 3.8 mmol/L (3.3-5.1); Sodium 144 mmol/L (135-145)
[2020-12-29 13:27] LABS: B Type Natriuretic Peptide 563 pg/mL (<100); Troponin-I High Sensitivity 8.2 ng/L (<3.5-17.0)
[2020-12-29 14:59] LABS: INTERNATIONAL NORM RATIO 3.4 (0.9-1.1); Prothrombin Time 39.8 SEC (9.9-13.0)
== END 2020-12-29 16:14 | disposition home or self-care (01) ==
PROVIDERS: Emergency Provider Emergency Medicine
DX: M79.602 Pain in left arm (principal); R07.9 Chest pain, unspecified; I11.0 Hypertensive heart disease with heart failure; I50.30 Unspecified diastolic (congestive) heart failure; I48.91 Unspecified atrial fibrillation; E11.9 Type 2 diabetes mellitus without complications; Z86.73 Personal history of transient ischemic attack (TIA), and cerebral infarction without residual deficits; Z91.81 History of falling
CPT/HCPCS: 36415; 71045; 73060; 80048; 83880; 84484; 85025; 85610; 93005; 99283; 99285

== ENCOUNTER 2021-01-01 16:25 | Inpatient (IN) | payer MEDICARE, OTHER, SELFPAY ==
--- NOTE | ~2021-01-01 | US_ITS ---
EXAMINATION: US VENOUS ULTRASOUND WITH DOPPLER LOWER EXTREMITY, BILATERAL CLINICAL INFORMATION: Pain and edema. COMPARISON: Left lower extremity ultrasound 11/05/2020. TECHNIQUE: Ultrasound of the deep veins is performed from the hip to the calf with compression sonography and color and pulse Doppler assessment. Spectral analysis with color-flow imaging is performed. FINDINGS: RIGHT: There is normal venous compression and respiratory variation and augmented flow with the caveat of suboptimal assessment of compression within the distal femoral vein which appears however patent on color Doppler. The visualized common femoral vein, superficial femoral vein, profunda femoral vein, popliteal vein, and the trifurcation region shows no evidence of deep venous thrombosis. There is no significant popliteal fossa cyst. LEFT: There is normal venous compression and respiratory variation and augmented flow with the caveat of suboptimal assessment of compression within the distal femoral vein which appears however patent on color Doppler. The visualized common femoral vein, superficial femoral vein, profunda femoral vein, popliteal vein, and the trifurcation region shows no evidence of deep venous thrombosis. There is no significant popliteal fossa cyst. If the patient's symptoms persist, followup ultrasound in 5 days 7 days might be of value to exclude proximal propagation from a non-visualized calf vein. US/US venous duplex LE BI IMPRESSION: No DVT demonstrated in the bilateral lower extremity with the caveat of suboptimal evaluation of compressibility in the distal femoral veins bilaterally and suboptimal evaluation of the peroneal veins in the calf.
--- NOTE | ~2021-01-01 | US_ITS ---
EXAMINATION: US ABDOMEN COMPLETE CLINICAL INFORMATION: Pancytopenia. Rule out cirrhosis.. COMPARISON: CT abdomen and pelvis 07/13/2020, ultrasound 10/27/2012 TECHNIQUE: Real-time imaging of the abdominal viscera. FINDINGS: PANCREAS: Visualized pancreatic head and body are unremarkable. The distal body and tail are obscured by bowel gas. ABDOMINAL AORTA: The proximal, mid, and distal segments are normal in caliber. INFERIOR VENA CAVA: Visualized portions are normal. LIVER: Normal. The liver is normal in size. The liver contour is normal. Liver echotexture is equivocally slightly coarsened, though I suspect this is possibly secondary to technical factors. Parenchymal echogenicity is otherwise normal. No focal hepatic lesion. There is no intrahepatic biliary duct dilatation seen. GALLBLADDER: The gallbladder is physiologically distended. Multiple mobile gallstones are present. No evidence of gallbladder wall thickening or pericholecystic fluid. COMMON BILE DUCT: Normal in caliber measuring 0.3 cm in diameter. RIGHT KIDNEY: At the upper pole the right kidney there is a 1.3 x 0.9 x 1.5 cm anechoic cyst. At the midpole there is a 0.4 x 0.2 x 0.4 cm cyst. At the lower pole there is a 3 mm nonobstructing calculus. No hydronephrosis The kidney measures 11.5 cm in maximum dimension. LEFT KIDNEY: The kidney is somewhat difficult to visualize. At the lower pole there is a 1.9 x 1.5 x 2 cm simple cyst with milk of calcium. There is an additional cyst at the mid to lower pole which measures 0.7 x 0.4 x 0.8 cm. No hydronephrosis or renal calculi. The kidney measures 12.1 cm in maximum dimension. SPLEEN: The spleen is mildly enlarged and measures 13.1 cm. FREE FLUID: None. US/US abdomen complete IMPRESSION: There is mild splenomegaly. There is an equivocally coarsened appearance of the liver echotexture which is likely secondary to technical factors. No definite evidence of cirrhosis. Cholelithiasis. Bilateral simple renal cysts and a 3 mm nonobstructing calculus at the lower pole the right kidney.
--- NOTE | ~2021-01-01 | XR_ITS ---
EXAMINATION: XR CHEST CLINICAL INFORMATION: SOB. COMPARISON: Chest 01/01/2021. TECHNIQUE: Frontal view of the chest was obtained. FINDINGS: Patient is rotated to the right side. The lungs are well-expanded without acute pneumonic process. Prominent right hilar structures with end on vessels simulating nodules. The findings are similar previous study. Bilateral parahilar bronchial wall thickening is seen. Heart size is enlarged. Pulmonary vascularity is normal. Mild degenerative changes right shoulder joint. XR/XR chest 1V IMPRESSION: Mild cardiomegaly. Bilateral parahilar bronchial wall thickening likely bronchial inflammatory changes or asthma. There is no acute pneumonic process. No change from 01/01/2021
--- NOTE | ~2021-01-01 | XR_ITS ---
EXAMINATION: XR CHEST CLINICAL INFORMATION: Shortness of breath. COMPARISON: Chest radiograph dated from 12/29/2020. TECHNIQUE: AP view of the chest was obtained. FINDINGS: Unchanged appearance of the cardiomediastinal silhouette including asymmetric fullness of the right hilar region. Increased bronchovascular coarsening. No significant pleural effusion. No pneumothorax. No acute osseous findings. 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 XR/XR chest 1V IMPRESSION: Increased interstitial markings of uncertain etiology. This could be potentially artifactual related with bronchovascular crowding and differences in technique. However, bronchial wall thickening in the setting of an atypical infection or reactive airways disease could appear similarly. Correlate clinically.
[2021-01-01 16:44] VITALS: BP 149/129; BP 172/95; PULSE 60; PULSE 68; RESP 28; TEMP 36.9; O2SAT 95; O2SAT 97; BMI 36.0
--- NOTE | 2021-01-01 17:32 | ECG_ITS ---
Test Reason : SHORTNESS OF BREATH Blood Pressure : / mmHG Vent. Rate : 063 BPM Atrial Rate : 000 BPM P-R Int : 000 ms QRS Dur : 146 ms QT Int : 502 ms P-R-T Axes : 000 071 -31 degrees QTc Int : 513 ms Atrial fibrillation Right bundle branch block T wave abnormality, consider inferior ischemia Abnormal ECG When compared with ECG of 29-DEC-2020 15:10, No significant change was found Referred By: Moo Magaña Electronically Signed By:YVES BARRAZA MD
--- NOTE | 2021-01-01 17:38 | ED_ITS ---
HPI - SOB/Dyspnea General Chief Complaint: Dyspnea Stated Complaint: sob Time Seen by Provider: 01/01/21 17:18 Source: patient and EMS Mode of arrival: EMS Limitations: no limitations History of Present Illness HPI Narrative: 80-year-old female history of hypertension, diabetes, obesity, chronic AFib, aortic stenosis, diastolic congestive heart failure and pulmonary hypertension patient came in for worsening of difficulty breathing that started 2 days ago, patient is on the recliner with bilateral lower extremities elevated, patient was just discharged from the hospital 2 days ago for similar symptoms. Patient stated that the recliner right in front of the bathroom at home but she cannot walk this few steps to the bathroom because of her shortness of breath. Related Data Home Medications Medication Instructions Recorded Confirmed atenolol 50 mg tablet 50 mg PO DAILY 11/27/19 11/07/20 metformin 500 mg tablet 500 mg PO BID 11/27/19 11/07/20 methotrexate sodium 2.5 mg tablet 2.5 mg PO QWEEK 11/27/19 11/07/20 folic acid 1 mg tablet 1 mg PO DAILY 05/18/20 11/07/20 warfarin 1 mg tablet 2 mg PO DAILY 09/01/20 11/07/20 atorvastatin 10 mg tablet 10 mg PO DAILY 11/07/20 11/07/20 Previous Rx's Medication Instructions Recorded blood sugar diagnostic ([employer] #250 ea 02/29/20 Ultra Blue Test Strip) spironolactone 25 mg tablet 12.5 mg PO DAILY #30 tab 05/21/20 amlodipine 5 mg tablet 5 mg PO DAILY #30 tab 11/07/20 cholecalciferol (vitamin D3) 1,250 1,250 mcg PO QWEEK 49 Days #7 cap 11/07/20 mcg (50,000 unit) capsule sertraline 50 mg tablet 50 mg PO DAILY 30 Days #30 tab 11/07/20 Allergies Allergy/AdvReac Type Severity Reaction Status Date / Time shellfish derived Allergy Unknown itchy Verified 11/07/20 15:11 procaine [From Novocain] AdvReac Unknown makes Verified 11/07/20 15:11 patient itchy,puffy Review of Systems Review of Systems: All other systems are reviewed and are negative Constitutional: Reports as per HPI and Reports no additional constitutional complaints Eyes: Reports as per HPI and Reports no additional eye complaints Reports system reviewed and no additional complaints, except as documented Cardiovascular: Reports as per HPI and Reports no additional cardiovascular complaints Respiratory: Reports as per HPI and Reports no additional respiratory complaints Gastrointestinal: Reports as per HPI and Reports no additional gastrointestinal complaints Genitourinary: Reports no additional female genitourinary complaints Musculoskeletal: Reports no additional musculoskeletal complaints Skin/Breast: Reports system reviewed and no additional complaints, except as docu Psychiatric: Reports no additional psychiatric complaints Endocrine: Reports no additional endocrine complaints Hematologic/Lymphatic: Reports no additional hematologic/lymphatic complaints Allergic/Immunologic: Reports no additional allergic/immunologic complaints Reports system reviewed and no additional complaints, except as documented and Reports Abnormal speech present [facility] Past Medical History Medical History (HFpEF) heart failure with preserved ejection fraction Acute pyelonephritis Anxiety and depression Atrial fibrillation CHF exacerbation Chronic anticoagulation CVA (cerebral vascular accident) Hypercholesterolemia Hypertension Lumbar vertebral fracture Obesity (BMI 30-39.9) Pneumonia Rheumatoid arthritis Sepsis TIA (transient ischemic attack) Type 2 diabetes mellitus with hyperglycemia Uterine cancer Surgical History History of appendectomy History of colonoscopy History of left knee replacement History of right knee joint replacement S/P ANTONIO-BSO Family History Family History Father Diabetes CAD (coronary artery disease) Mother Diabetes Hypertension Perforated ulcer Sister Diabetes Social History Social History Household Members: Spouse Housing: House Do you presently have visiting nurse or other home services: Yes Alcohol intake: never Patient Tobacco Use Status: Never used Tobacco e-Cigarette/Vaping Use: Never Used Second Hand Smoke Exposure: No Advance Directives: Yes Advance Directives on File: Yes Advance Directives Date on File: 05/17/20 service: No Current occupational status: retired Physical Exam Vital Signs: Vital Signs: Last Vital Signs Temp 98.4 F 01/01/21 16:44 Pulse 68 01/01/21 16:44 Resp 28 H 01/01/21 16:44 BP 172/95 H 01/01/21 16:44 Pulse Ox 95 01/01/21 16:44 Body Mass Index 36.0 Vital signs have been reviewed as appeared to be correct. Blood pressure elevated, Heart rate normal. Respiration rate elevated. Temperature normal. Oxygen saturation normal. Appearance: Alert. Oriented X3. No acute distress. Head: Normal external exam. Normocephalic. Atraumatic. No Do signs noted. No raccoon eyes noted Eyes: PERRLA. EOMI. Conjunctiva and sclera normal. Eyelids normal. ENT: TM's Normal. Pharynx normal. Uvula midline. Moist mucous membranes. No trismus noted. No drooling noted. No muffled voice noted. Neck: Normal inspection. Neck supple. FROM. No adenopathy. Thyroid Normal. No meningeal signs. No neck mass noted. CVS: Normal heart rate and rhythm. Heart sound normal. No murmurs noted. Pulses normal throughout. Respiratory: No respiratory distress. Painless inspiration. Breath sounds normal. Bilateral basilar rales, Chest nontender. No accessory muscle usage noted or decreased air movement noted. Abdomen: Soft and nontender. Bowel sounds normal in all 4 quadrants. No disten tion noted. No organomegaly noted. No visible injury noted. Back: No CVA tenderness. Full range of motion noted. Skin: Skin warm and dry. Normal skin color. Normal skin turgor. No rashes/lesions/lacerations noted. Extremities: +2 lower extremity edema. Extremities exhibit normal range of mo tion. Extremities nontender. Neuro: Oriented X 3. Cranial nerve exam: II-XII are grossly intact No motor deficit. No sensory deficit. Reflexes normal. Course Course Course Narrative: Assessment and plan. 80-year-old female with history of diastolic congestive heart failure came in with worsening of symptoms of shortness of breath. Will continue with diuresis and admit the patient for further cardiology monitoring and consultation. MDM - SOB/Dyspnea Lab Data Attestation: I reviewed the patient's lab results. Result diagrams: 01/01/21 18:01/01/21 18:17 Labs: Lab Results 01/01/21 01/01/21 01/01/21 Range/Units 18:17 18:17 18:17 WBC 3.3 L (4.8-10.8) X10*3/uL RBC 2.44 L (4.20-5.50) X10*6/uL Hgb 8.5 L (12.0-16.0) g/dl Hct 25.9 L (37.0-47.0) % MCV 106.1 H (80.0-98.0) fL MCH 34.8 H (27.0-33.0) pg MCHC 32.8 (31.0-35.0) g/dl RDW 20.9 H (11.0-16.0) % Plt Count 111 L D (160-400) X10*3/uL MPV 11.1 (9.4-12.3) fL Immature Gran % (Auto) 0.9 H (0.0-0.4) % Neut % (Auto) 67.3 (45-73) % Lymph % (Auto) 23.1 (20-40) % [place] % (Auto) 4.2 (2-11) % Eos % (Auto) 3.9 (0-4) % Baso % (Auto) 0.6 (0-2) % Lymph # (Auto) 0.8 L (1.2-4.9) X10*3/uL [place] # (Auto) 0.1 (0.1-1.2) X10*3/uL Eos # (Auto) 0.1 (0.0-0.4) X10*3/uL Baso # (Auto) 0.0 (0.0-0.2) X10*3/uL Abs Immat Gran (auto) 0.03 (0.00-0.03) X10*3/uL Absolute Neuts (auto) 2.2 (2.0-8.3) x10*3/uL Absolute Nucleated RBC 0.000 (0.0-0.012) X10*3/uL Nucleated RBC % (auto) 0.0 (0.0-0.2) /100WBC Sodium 142 (135-145) mmol/L Potassium 4.1 (3.3-5.1) mmol/L Chloride 109 H (96-108) mmol/L Carbon Dioxide 26 (22-29) mmol/L Anion Gap 11 L (12-20) BUN 17 H (9-16) mg/dL Creatinine 0.69 (0.5-1.4) mg/dL Estim Creat Clear Calc 62.4 Estimated GFR > 60 Random Glucose 97 (60-115) mg/dL Calcium 8.8 (8.4-10.2) mg/dL Total Bilirubin 1.2 H (0.0-1.0) mg/dL Direct Bilirubin 0.5 (0.0-0.5) mg/dL AST 29 D (5-31) U/L ALT 19 (0-31) U/L Alkaline Phosphatase 59 D (39-117) U/L Troponin I High Sens 9.3 (<3.5-17.0) ng/L B-Natriuretic Peptide 746 H (<100) pg/mL Total Protein 6.5 (6.5-8.0) g/dL Albumin 3.6 (3.5-5.0) g/dL Lipase 16 (8-78) U/L COVID-19 ([facility]) (Negative) COVID-19 Clin Com 01/01/21 Range/Units 18:17 WBC (4.8-10.8) X10*3/uL RBC (4.20-5.50) X10*6/uL Hgb (12.0-16.0) g/dl Hct (37.0-47.0) % MCV (80.0-98.0) fL MCH (27.0-33.0) pg MCHC (31.0-35.0) g/dl RDW (11.0-16.0) % Plt Count (160-400) X10*3/uL MPV (9.4-12.3) fL Immature Gran % (Auto) (0.0-0.4) % Neut % (Auto) (45-73) % Lymph % (Auto) (20-40) % [place] % (Auto) (2-11) % Eos % (Auto) (0-4) % Baso % (Auto) (0-2) % Lymph # (Auto) (1.2-4.9) X10*3/uL [place] # (Auto) (0.1-1.2) X10*3/uL Eos # (Auto) (0.0-0.4) X10*3/uL Baso # (Auto) (0.0-0.2) X10*3/uL Abs Immat Gran (auto) (0.00-0.03) X10*3/uL Absolute Neuts (auto) (2.0-8.3) x10*3/uL Absolute Nucleated RBC (0.0-0.012) X10*3/uL Nucleated RBC % (auto) (0.0-0.2) /100WBC Sodium (135-145) mmol/L Potassium (3.3-5.1) mmol/L Chloride (96-108) mmol/L Carbon Dioxide (22-29) mmol/L Anion Gap (12-20) BUN (9-16) mg/dL Creatinine (0.5-1.4) mg/dL Estim Creat Clear Calc Estimated GFR Random Glucose (60-115) mg/dL Calcium (8.4-10.2) mg/dL Total Bilirubin (0.0-1.0) mg/dL Direct Bilirubin (0.0-0.5) mg/dL AST (5-31) U/L ALT (0-31) U/L Alkaline Phosphatase (39-117) U/L Troponin I High Sens (<3.5-17.0) ng/L B-Natriuretic Peptide (<100) pg/mL Total Protein (6.5-8.0) g/dL Albumin (3.5-5.0) g/dL Lipase (8-78) U/L COVID-19 ([facility]) Negative (Negative) COVID-19 Clin Com See Note Imaging Data Chest x-ray: Radiologist's impression: Increased interstitial markings of uncertain etiology. This could be potentially artifactual related with bronchovascular crowding and differences in technique. However, bronchial wall thickening in the setting of an atypical infection or reactive airways disease could appear similarly. Correlate clinically. ? ECG Data Attestation: I personally reviewed and interpreted this ECG as follows: Interpretation: Atrial fibrillation at 63 beats per minute, right bundle-branch block. Discharge Plan Discharge Clinical Impression: Congestive heart failure Patient Disposition: Admitted As Inpatient Prescriptions: No Action (DME) OneTouch Ultra Blue Test Strip Strip See Rx Instructions .ROUTE .MEDSUPPLY Qty: 250 RF: 3 warfarin 1 mg tablet 2 mg PO DAILY RF: 0 folic acid 1 mg Tablet 1 mg PO DAILY RF: 0 spironolactone 25 mg Tablet 12.5 mg PO DAILY Qty: 30 RF: 0 atenolol 50 mg tablet 50 mg PO DAILY RF: 0 metformin 500 mg tablet 500 mg PO BID RF: 0 methotrexate sodium 2.5 mg tablet 2.5 mg PO QWEEK RF: 0 sertraline 50 mg tablet 50 mg PO DAILY 30 Days Qty: 30 RF: 0 amlodipine 5 mg tablet 5 mg PO DAILY Qty: 30 RF: 0 cholecalciferol (vitamin D3) 1,250 mcg (50,000 unit) capsule 1,250 mcg PO QWEEK 49 Days Qty: 7 RF: 0 atorvastatin 10 mg tablet 10 mg PO DAILY RF: 0
[2021-01-01] MEDS: Furosemide 20 MG TABLET PO (18:13)
[2021-01-01 18:23] LABS: MANUAL DIFF FLAG NO
[2021-01-01 18:42] LABS: Basophils Percent Auto 0.6 % (0-2); Eosinophils Absolute Auto 0.1 X10*3/uL (0.0-0.4); Eosinophils Percent Auto 3.9 % (0-4); Hematocrit 25.9 % (37.0-47.0); Hemoglobin 8.5 g/dl (12.0-16.0); Imm Gran Abs Auto 0.03 X10*3/uL (0.00-0.03); Imm Gran Pct Auto 0.9 % (0.0-0.4); Lymphocytes Absolute Auto 0.8 X10*3/uL (1.2-4.9); Lymphocytes Percent Auto 23.1 % (20-40); Mean Corpuscular HGB Conc 32.8 g/dl (31.0-35.0); Mean Corpuscular Hemoglobin 34.8 pg (27.0-33.0); Mean Corpuscular Volume 106.1 fL (80.0-98.0); Mean Platelet Volume 11.1 fL (9.4-12.3); Monocytes Absolute Auto 0.1 X10*3/uL (0.1-1.2); Monocytes Percent Auto 4.2 % (2-11); Neutrophils Absolute Auto 2.2 x10*3/uL (2.0-8.3); Neutrophils Percent Auto 67.3 % (45-73); Platelet Count 111 X10*3/uL (160-400); Red Blood Count 2.44 X10*6/uL (4.20-5.50); Red Cell Distribution Width 20.9 % (11.0-16.0); White Blood Count 3.3 X10*3/uL (4.8-10.8)
[2021-01-01 18:44] LABS: Alanine Aminotransferase 19 U/L (0-31); Albumin Level 3.6 g/dL (3.5-5.0); Alkaline Phosphatase 59 U/L (39-117); Anion Gap 11 (12-20); Aspartate Amino Transferase 29 U/L (5-31); Bilirubin Direct 0.5 mg/dL (0.0-0.5); Bilirubin Total 1.2 mg/dL (0.0-1.0); Blood Urea Nitrogen 17 mg/dL (9-16); Calcium 8.8 mg/dL (8.4-10.2); Carbon Dioxide 26 mmol/L (22-29); Chloride 109 mmol/L (96-108); Creatinine Clr Calc Pharmacy 62.4; Estimated Glomerular Filt Rate > 60; Glucose Random 97 mg/dL (60-115); Lipase 16 U/L (8-78); Potassium 4.1 mmol/L (3.3-5.1); Sodium 142 mmol/L (135-145); Total Protein 6.5 g/dL (6.5-8.0)
[2021-01-01 18:46] LABS: B Type Natriuretic Peptide 746 pg/mL (<100); Troponin-I High Sensitivity 9.3 ng/L (<3.5-17.0)
[2021-01-01 18:51] LABS: COVID-19 Test Negative (Negative); IDNOW Serial# 9DD0AD1C
[2021-01-01 20:19] LABS: Appearance Urine CLEAR; Color Urine YELLOW; Glucose Urine UA NEG (NEG); Leukocyte Esterase Urine 1+ (NEG); Nitrite Urine POS (NEG); PH 5.5 (5.0-8.0); UACC Culture Trigger YES; Urine Blood TRACE (NEG); Urine Ketones NEG (NEG); Urine Protein TRACE MG/DL (NEG-TRACE)
[2021-01-01 20:28] LABS: Bacteria Urine 3+ /LPF; RBC Urine 0-2 /HPF (0); Squamous Epithelial Cell Urine TRACE /LPF
[2021-01-01 21:05] VITALS: BP 168/85; PULSE 83; RESP 16; TEMP 36.9; O2SAT 93
--- NOTE | 2021-01-01 21:54 | PM.IMHP ---
History of Present Illness Date of Service: 01/01/21 Chief Complaint: difficulty breathing 80-year-old female with past medical history of diastolic heart failure with preserved ejection fraction, anxiety and depression, AFib, CVA, HTN, HLD, rheumatoid arthritis, type 2 diabetes who presents to the hospital with complaints of worsening shortness of breath. Patient reports that she has been having shortness of breath for the past several days, worsened over the last 2 days, has no cough or phlegm production, has orthopnea PND, lower extremity edema for the same amount of time. She is short of breath with minimal activity/exertion. She has no fever or chills, no chest pain, no palpitations, no abdominal pain nausea or vomiting, no diarrhea constipation, no urinary symptoms. No numbness tingling or weakness. On arrival to the ED patient hemodynamically stable with no significant abnormal vitals except a slightly elevated blood pressure Labs are significant for leukopenia of 3.3, hemoglobin of 8.5 that dropped from 10.9 in October, platelets of 111 BNP of 746, troponin of 9.3, UA that is positive for nitrites, leukocyte Estrace, and some WBC Chest x-ray shows increased interstitial markings Venous duplex of bilateral lower extremity shows no DVT with the caveats of suboptimal evaluation of come past ability in the distal femoral veins. Patient will be admitted for management of CHF Review of Systems Review of Systems: Yes all other systems are reviewed and are negative [facility] Medical History (HFpEF) heart failure with preserved ejection fraction Acute pyelonephritis Anxiety and depression Atrial fibrillation CHF exacerbation Chronic anticoagulation CVA (cerebral vascular accident) Hypercholesterolemia Hypertension Lumbar vertebral fracture Obesity (BMI 30-39.9) Pneumonia Rheumatoid arthritis Sepsis TIA (transient ischemic attack) Type 2 diabetes mellitus with hyperglycemia Uterine cancer Family History Father Diabetes CAD (coronary artery disease) Mother Diabetes Hypertension Perforated ulcer Sister Diabetes Surgical History History of appendectomy History of colonoscopy History of left knee replacement History of right knee joint replacement S/P ANTONIO-BSO Social History Household Members: Spouse Housing: House Do you presently have visiting nurse or other home services: Yes Alcohol intake: never Patient Tobacco Use Status: Never used Tobacco e-Cigarette/Vaping Use: Never Used Second Hand Smoke Exposure: No Advance Directives: Yes Advance Directives on File: Yes Advance Directives Date on File: 05/17/20 service: No Current occupational status: retired Meds Allergies Allergy/AdvReac Type Severity Reaction Status Date / Time shellfish derived Allergy Unknown itchy Verified 11/07/20 15:11 procaine [From Novocain] AdvReac Unknown makes Verified 11/07/20 15:11 patient itchy,puffy Active Medications: Current Medications Pharmacy Consult (Consult Rx Perform Med Rec) 1 each MISCELLANE ONCE STA Stop: 01/01/21 21:55 Home Medications Medication Instructions Recorded Confirmed Last Taken Type atenolol 50 mg tablet 50 mg PO DAILY 11/27/19 11/07/20 11/05/20 History metformin 500 mg tablet 500 mg PO BID 11/27/19 11/07/20 11/05/20 History methotrexate sodium 2.5 mg tablet 2.5 mg PO QWEEK 11/27/19 11/07/20 05/17/20 History folic acid 1 mg tablet 1 mg PO DAILY 05/18/20 11/07/20 11/05/20 History warfarin 1 mg tablet 2 mg PO DAILY 09/01/20 11/07/20 11/05/20 History atorvastatin 10 mg tablet 10 mg PO DAILY 11/07/20 11/07/20 Unknown History furosemide 40 mg tablet 1 tab PO QAM 01/01/21 Unknown History Physical Exam Vital Signs and Narrative: Vital Signs: Last Vital Signs Temp 98.4 F 01/01/21 21:05 Pulse 83 01/01/21 21:05 Resp 16 01/01/21 21:05 BP 168/85 H 01/01/21 21:05 Pulse Ox 93 01/01/21 21:05 Body Mass Index 36.0 Const: General: cooperative and no acute distress Orientation/consciousness: patient oriented x3 Eyes: General: appearance normal, both eyes and all related structures Pupils: Equal, round and reactive pupils present Resp: Effort & Inspection: normal respiratory effort Auscultation: clear to auscultation bilaterally Cardio: Rate: regular rate Rhythm: regular rhythm GI: Palpation (GI): Soft to palpation Auscultation: normal bowel sounds Skin: Other: Has significant skin tightness in her calves General skin exam: no rashes or lesions noted Neuro: General: patient oriented x3 Cranial nerves: Yes Equal, round and reactive pupils present Cognition (Neuro): normal cognition Extrem: Other: Lower extremity 3+ pitting edema General: Yes normal to inspection Results Labs CBC and Chem 7: 01/01/21 18:17 01/01/21 18:17 Labs: Laboratory Results - last 24 hr 01/01/21 01/01/21 01/01/21 18:17 18:17 18:17 Hgb 8.5 L MCV 106.1 H MCH 34.8 H MCHC 32.8 RDW 20.9 H Plt Count 111 L D MPV 11.1 Immature Gran % (Auto) 0.9 H Neut % (Auto) 67.3 Lymph % (Auto) 23.1 [place] % (Auto) 4.2 Eos % (Auto) 3.9 Baso % (Auto) 0.6 Lymph # (Auto) 0.8 L [place] # (Auto) 0.1 Eos # (Auto) 0.1 Baso # (Auto) 0.0 Abs Immat Gran (auto) 0.03 Absolute Neuts (auto) 2.2 Absolute Nucleated RBC 0.000 Nucleated RBC % (auto) 0.0 Anion Gap 11 L Estim Creat Clear Calc 62.4 Estimated GFR > 60 Random Glucose 97 Calcium 8.8 Total Bilirubin 1.2 H Direct Bilirubin 0.5 AST 29 D ALT 19 Alkaline Phosphatase 59 D Troponin I High Sens 9.3 B-Natriuretic Peptide 746 H Total Protein 6.5 Albumin 3.6 Lipase 16 Urine Color Urine Appearance Urine pH Ur Specific [place] Urine Protein Urine Glucose (UA) Urine Ketones Urine Blood Urine Nitrite Ur Leukocyte Esterase Urine RBC Urine WBC Ur Squamous Epith Cells Urine Bacteria COVID-19 ([facility]) COVID-19 Clin Com 01/01/21 01/01/21 18:17 20:06 Hgb MCV MCH MCHC RDW Plt Count MPV Immature Gran % (Auto) Neut % (Auto) Lymph % (Auto) [place] % (Auto) Eos % (Auto) Baso % (Auto) Lymph # (Auto) [place] # (Auto) Eos # (Auto) Baso # (Auto) Abs Immat Gran (auto) Absolute Neuts (auto) Absolute Nucleated RBC Nucleated RBC % (auto) Anion Gap Estim Creat Clear Calc Estimated GFR Random Glucose Calcium Total Bilirubin Direct Bilirubin AST ALT Alkaline Phosphatase Troponin I High Sens B-Natriuretic Peptide Total Protein Albumin Lipase Urine Color YELLOW Urine Appearance CLEAR Urine pH 5.5 Ur Specific [place] 1.020 Urine Protein TRACE Urine Glucose (UA) NEG Urine Ketones NEG Urine Blood TRACE Urine Nitrite POS H Ur Leukocyte Esterase 1+ H Urine RBC 0-2 Urine WBC 1-4 Ur Squamous Epith Cells TRACE Urine Bacteria 3+ COVID-19 ([facility]) Negative COVID-19 Clin Com See Note Imaging Radiologist's Impressions: Impressions Chest X-Ray 01/01/21 17:32 IMPRESSION: Increased interstitial markings of uncertain etiology. This could be potentially artifactual related with bronchovascular crowding and differences in technique. However, bronchial wall thickening in the setting of an atypical infection or reactive airways disease could appear similarly. Correlate clinically. Assessment and Plan (1) CHF exacerbation: Status: Acute (2) Acute on chronic anemia: Status: Acute (3) UTI (urinary tract infection): Status: Acute 80-year-old female with extensive past medical history as mentioned above who presents to the hospital with complaints of difficulty breathing found to have CHF exacerbation UTI as well as acute on chronic anemia # acute CHF exacerbation - has orthopnea, PND, dyspnea, as well as lower extremity edema - chest x-ray shows interstitial markings - patient had an echo done this year that showed ejection fraction of 60-65% with grade 3 diastolic dysfunction - will start patient on IV Lasix, low-dose sodium diet, daily weight, strict I&O - cardiology consult - repeat echocardiogram # acute on chronic anemia - macrocytic - hemoglobin dropped from more than 10-8.5 - no active occult bleed - denies any melena, no hematemesis hemoptysis or hematochezia - will obtain stool occult, B12, folic acid and ferritin - threshold for transfusion hemoglobin less than 7 # UTI -asymptomatic - given her age and other comorbidities will treat with IV antibiotics - follow cultures Patient's medications need a consultation but pharmacy, patient does not know her meds, her sleeping, and pharmacy attempted but was not successful, they will attempt in the morning. Quality Stroke Does the patient have a stroke diagnosis?: No VTE Prior VTE?: No VTE Risk Level:: Medical - moderate - high VTE Device Contraindication: Treatment Not Indicated VTE Drug Contraindication: N/A - Med Ordered
[2021-01-02] VITALS (7 sets, daily range): BP systolic 125–172; BP diastolic 60–86; PULSE 61–67; RESP 18–21; TEMP 36.6–37.1; O2SAT 92–100
[2021-01-02] MEDS: 0.9 % Sodium Chloride Flush 3 ML SYRINGE IVFLUSH ×3 (01:12→21:31)
[2021-01-02] MEDS: Furosemide 40 MG/4 ML VIAL IVPUSH ×2 (01:13→12:47)
[2021-01-02] MEDS: cefTRIAXone sodium 1 GM in 0.9 % Sodium Chloride 50 ML IV (06:15)
[2021-01-02 06:52] LABS: MANUAL DIFF FLAG NO
[2021-01-02 07:01] LABS: Basophils Percent Auto 0.6 % (0-2); Eosinophils Absolute Auto 0.2 X10*3/uL (0.0-0.4); Eosinophils Percent Auto 4.6 % (0-4); Hematocrit 21.6 % (37.0-47.0); Imm Gran Abs Auto 0.02 X10*3/uL (0.00-0.03); Imm Gran Pct Auto 0.6 % (0.0-0.4); Lymphocytes Percent Auto 30.3 % (20-40); Mean Corpuscular Volume 105.4 fL (80.0-98.0); Mean Platelet Volume 11.1 fL (9.4-12.3); Monocytes Absolute Auto 0.2 X10*3/uL (0.1-1.2); Monocytes Percent Auto 5.3 % (2-11); Neutrophils Absolute Auto 1.9 x10*3/uL (2.0-8.3); Neutrophils Percent Auto 58.6 % (45-73); Platelet Count 108 X10*3/uL (160-400); Red Blood Count 2.05 X10*6/uL (4.20-5.50); Red Cell Distribution Width 20.5 % (11.0-16.0); White Blood Count 3.2 X10*3/uL (4.8-10.8)
[2021-01-02 07:15] LABS: Anion Gap 14 (12-20); Blood Urea Nitrogen 16 mg/dL (9-16); Calcium 8.6 mg/dL (8.4-10.2); Carbon Dioxide 25 mmol/L (22-29); Chloride 108 mmol/L (96-108); Creatinine Clr Calc Pharmacy 63.3; Estimated Glomerular Filt Rate > 60; Glucose Random 90 mg/dL (60-115); Potassium 3.6 mmol/L (3.3-5.1); Sodium 143 mmol/L (135-145)
[2021-01-02 07:33] LABS: Ferritin 109 ng/mL (10-250)
--- NOTE | 2021-01-02 08:30 | PHA.MEDREC ---
Pharmacy Consult ? Medication Reconciliation Pharmacy has completed the medication reconciliation. Patient is unsure of her medications, reported medications that have not been filled in a long time. Reports pulls medications out for her. She also reported has early dementia. Patient was a poor historian. And reported that methotrexate has not been filled since 2016 and another medication in 1920. He confirmed he gave her 2 mg of warfarin daily. I contacted pharmacy to get a detailed fill history. Atorvastatin has never been filled, atenolol last filled november 2019, and metformin last filled november 2019, and methotrexate last filled in april 2020. Denise Lyons, PharmD
[2021-01-02 08:47] LABS: Folate > 20.0 ng/mL (> or = 4.0); Vitamin B12 264 pg/mL (200-900)
--- NOTE | 2021-01-02 09:24 | MHC.CM.PN ---
Addendum entered by Jennifer David 01/02/21 10:37: [facility] DOES NOT OFFER SERVICES. [facility] TO BE CONTACTED TO FIND OUT WHO DOES Original Note: PATIENT LIVES WITH HER SPOUSE. SHE USES TWO CANES AND A WALKER NEEDED. HER SPOUSE AND FRIENDS PROVIDE TRANSPORT WHERE NEEDED. HCP ON FILE AND VERIFIED. SHE HAS A DIRECTOR PROSPECT ON TUESDAYS AND THURSDAYS THAT ASSISTS WITH HOME CLEANING AND CHORES MODESTO HAS SERVICES IN THE HOME 2X/WEEK FOR COUMADIN CHECKS. 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 SHE IS HOPING TO BE ABLE TO RETURN HOME AT DISCHARGE SHE PREFERS TO BE ABLE TO COME TO THE COUMADIN CLINIC HERE AT [facility] [place], IT GETS ME OUT OF THE HOUSE SHE REPORTS THAT SHE ONCE USED THE SERVICES OF OUR CLINIC AND ASKS FOR ASSISTANCE WITH POSSIBLY RE-SECURING THIS. REFERRALS PLACED TO [facility] AND [facility] TO FOLLOW. IMM 01/02 IN CHART.
--- NOTE | 2021-01-02 09:30 | MHC.CM.PN ---
PATIENT HAS BEEN VACCINATED AGAINST COVID-19 (PFIZER SERIES) FIRST DOSE WAS 03/05/20. SHE REPORTS THAT SHE AND HER SPOUSE RECEIVED THE VACCINES HERE IN THE OLD E.D. BUT DOES NOT REMEMBER THE DATE OF THE SECOND DOSE.
[2021-01-02 09:50] LABS: INTERNATIONAL NORM RATIO 4.4 (0.9-1.1); Prothrombin Time 52.1 SEC (9.9-13.0)
--- NOTE | 2021-01-02 10:32 | P.CONCA_ITS ---
History of Present Illness History of Present Illness Date of Service: 01/02/21 Requesting physician: Reyes Cee Chief complaint: CHF exacerbation Narrative: 80-year-old female with background history of hypertension, hyperlipidemia, rheumatoid arthritis, anemia, atrial fibrillation on Coumadin, pulmonary hypertension and history of history of heart failure. She is presenting for shortness of breath which is worsening. She said she was unable to walk to the bathroom in her house without getting out of breath and had to call her to help her back to bed. She also is complaining of some pressure-like feeling on the left side of chest along with left arm numbness. She has noticed to be anemic with hemoglobin of 8 compared to 10 in October. Sleeping in a recliner. Complaining of lower extremity edema. Clinically in heart failure. Elevated BNP. Blood pressures have been elevated. [facility] Past Medical History Medical History (HFpEF) heart failure with preserved ejection fraction Acute pyelonephritis Anxiety and depression Atrial fibrillation CHF exacerbation Chronic anticoagulation CVA (cerebral vascular accident) Hypercholesterolemia Hypertension Lumbar vertebral fracture Obesity (BMI 30-39.9) Pneumonia Rheumatoid arthritis Sepsis TIA (transient ischemic attack) Type 2 diabetes mellitus with hyperglycemia Uterine cancer Family History Family History Father Diabetes CAD (coronary artery disease) Mother Diabetes Hypertension Perforated ulcer Sister Diabetes Surgical History Surgical History History of appendectomy History of colonoscopy History of left knee replacement History of right knee joint replacement S/P ANTONIO-BSO Social History Social History Household Members: Spouse Housing: House Do you presently have visiting nurse or other home services: Yes Alcohol intake: never Patient Tobacco Use Status: Never used Tobacco e-Cigarette/Vaping Use: Never Used Second Hand Smoke Exposure: No Advance Directives: Yes Advance Directives on File: Yes Advance Directives Date on File: 05/17/20 service: No Current occupational status: retired Meds Allergies Allergy/AdvReac Type Severity Reaction Status Date / Time shellfish derived Allergy Unknown itchy Verified 11/07/20 15:11 procaine [From Novocain] AdvReac Unknown makes Verified 11/07/20 15:11 patient itchy,puffy Active Medications: Current Medications Acetaminophen (Acetaminophen 325 Mg Tablet) 650 mg PO Q6H PRN PRN Reason: Pain, Mild (Pain Scale 1-3) Furosemide (Furosemide 40 Mg/4 Ml Vial) 40 mg IVPUSH Q12H [facility]; Protocol Last Admin: 01/02/21 01:13 Dose: 40 mg Documented by: Ceftriaxone Sodium 1 gm/ (Sodium Chloride) 50 mls @ 100 mls/hr IV Q24H [facility] Last Infusion: 01/02/21 06:41 Dose: Infused Documented by: Ondansetron HCl (Ondansetron Hcl 4 Mg/2 Ml Vial) 4 mg IVPUSH Q8H PRN PRN Reason: Nausea and Vomiting Pharmacy Consult (Consult Rx Perform Med Rec) 1 each MISCELLANE ONCE PRN PRN Reason: Consult order Sodium Chloride (0.9 % Sodium Chloride Flush 3 Ml Syringe) 3 ml IVFLUSH QSHIFT [facility] Last Admin: 01/02/21 09:45 Dose: 3 ml Documented by: Home Medications Medication Instructions Recorded Confirmed Last Taken Type folic acid 1 mg tablet 1 mg PO DAILY 05/18/20 01/02/21 11/05/20 History warfarin 1 mg tablet 2 mg PO DAILY 09/01/20 01/02/21 11/05/20 History furosemide 40 mg tablet 1 tab PO QAM 01/01/21 01/02/21 Unknown History acetaminophen 500 mg tablet 500 mg PO BEDTIME 01/02/21 01/02/21 Unknown History cholecalciferol (vitamin D3) 1,250 1,250 mcg PO PICKARD 01/02/21 01/02/21 Unknown History mcg (50,000 unit) capsule Physical Exam Vital Signs: Vital Signs: Last Vital Signs Temp 98.4 F 01/01/21 21:05 Pulse 63 01/02/21 07:22 Resp 18 01/02/21 07:22 BP 161/72 H 01/02/21 07:22 Pulse Ox 92 01/02/21 07:22 Body Mass Index 36.0 GENERAL APPEARANCE: in no acute distress, pleasant. NECK: no carotid bruit, + jugular venous distention. SKIN: no suspicious lesions, warm and dry. HEART: Systolic murmur, irregular rate and rhythm. LUNGS: clear to auscultation bilaterally. ABDOMEN: soft, nontender. EXTREMITIES: 1+ edema. PERIPHERAL PULSES: equal. NEUROLOGIC: No gross deficits, AAO X 3 Objective Labs and Meds Result diagrams: 01/02/21 06:18 01/02/21 06:18 Lab results: Laboratory Results - last 24 hr 01/01/21 01/01/21 01/01/21 18:17 18:17 18:17 WBC 3.3 L RBC 2.44 L Hgb 8.5 L Hct 25.9 L MCV 106.1 H MCH 34.8 H MCHC 32.8 RDW 20.9 H Plt Count 111 L D MPV 11.1 Immature Gran % (Auto) 0.9 H Neut % (Auto) 67.3 Lymph % (Auto) 23.1 [place] % (Auto) 4.2 Eos % (Auto) 3.9 Baso % (Auto) 0.6 Lymph # (Auto) 0.8 L [place] # (Auto) 0.1 Eos # (Auto) 0.1 Baso # (Auto) 0.0 Abs Immat Gran (auto) 0.03 Absolute Neuts (auto) 2.2 Absolute Nucleated RBC 0.000 Nucleated RBC % (auto) 0.0 PT INR Sodium 142 Potassium 4.1 Chloride 109 H Carbon Dioxide 26 Anion Gap 11 L BUN 17 H Creatinine 0.69 Estim Creat Clear Calc 62.4 Estimated GFR > 60 Random Glucose 97 Calcium 8.8 Ferritin Total Bilirubin 1.2 H Direct Bilirubin 0.5 AST 29 D ALT 19 Alkaline Phosphatase 59 D Troponin I High Sens 9.3 B-Natriuretic Peptide 746 H Total Protein 6.5 Albumin 3.6 Lipase 16 Vitamin B12 Folate Urine Color Urine Appearance Urine pH Ur Specific [place] Urine Protein Urine Glucose (UA) Urine Ketones Urine Blood Urine Nitrite Ur Leukocyte Esterase Urine RBC Urine WBC Ur Squamous Epith Cells Urine Bacteria COVID-19 ([facility]OR[facility]INE) COVID-19 Clin Com 01/01/21 01/01/21 01/02/21 18:17 20:06 06:18 WBC 3.2 L RBC 2.05 L Hgb 8.0 L Hct 21.6 L MCV 105.4 H MCH 39.0 H MCHC 37.0 H RDW 20.5 H Plt Count 108 L MPV 11.1 Immature Gran % (Auto) 0.6 H Neut % (Auto) 58.6 Lymph % (Auto) 30.3 [place] % (Auto) 5.3 Eos % (Auto) 4.6 H Baso % (Auto) 0.6 Lymph # (Auto) 1.0 L [place] # (Auto) 0.2 Eos # (Auto) 0.2 Baso # (Auto) 0.0 Abs Immat Gran (auto) 0.02 Absolute Neuts (auto) 1.9 L Absolute Nucleated RBC 0.000 Nucleated RBC % (auto) 0.0 PT INR Sodium Potassium Chloride Carbon Dioxide Anion Gap BUN Creatinine Estim Creat Clear Calc Estimated GFR Random Glucose Calcium Ferritin Total Bilirubin Direct Bilirubin AST ALT Alkaline Phosphatase Troponin I High Sens B-Natriuretic Peptide Total Protein Albumin Lipase Vitamin B12 Folate Urine Color YELLOW Urine Appearance CLEAR Urine pH 5.5 Ur Specific [place] 1.020 Urine Protein TRACE Urine Glucose (UA) NEG Urine Ketones NEG Urine Blood TRACE Urine Nitrite POS H Ur Leukocyte Esterase 1+ H Urine RBC 0-2 Urine WBC 1-4 Ur Squamous Epith Cells TRACE Urine Bacteria 3+ COVID-19 ([place]OR[place]INE) Negative COVID-19 [employer] Com See Note 01/02/21 01/02/21 01/02/21 06:18 06:18 06:18 WBC RBC Hgb Hct MCV MCH MCHC RDW Plt Count MPV Immature Gran % (Auto) Neut % (Auto) Lymph % (Auto) [place] % (Auto) Eos % (Auto) Baso % (Auto) Lymph # (Auto) [place] # (Auto) Eos # (Auto) Baso # (Auto) Abs Immat Gran (auto) Absolute Neuts (auto) Absolute Nucleated RBC Nucleated RBC % (auto) PT INR Sodium 143 Potassium 3.6 Chloride 108 Carbon Dioxide 25 Anion Gap 14 BUN 16 Creatinine 0.68 Estim Creat Clear Calc 63.3 Estimated GFR > 60 Random Glucose 90 Calcium 8.6 Ferritin 109 Total Bilirubin Direct Bilirubin AST ALT Alkaline Phosphatase Troponin I High Sens B-Natriuretic Peptide Total Protein Albumin Lipase Vitamin B12 264 Folate > 20.0 Urine Color Urine Appearance Urine pH Ur Specific [place] Urine Protein Urine Glucose (UA) Urine Ketones Urine Blood Urine Nitrite Ur Leukocyte Esterase Urine RBC Urine WBC Ur Squamous Epith Cells Urine Bacteria COVID-19 ([facility]ORRAINE) COVID-19 Clin Com 01/02/21 09:31 WBC RBC Hgb Hct MCV MCH MCHC RDW Plt Count MPV Immature Gran % (Auto) Neut % (Auto) Lymph % (Auto) [place] % (Auto) Eos % (Auto) Baso % (Auto) Lymph # (Auto) [place] # (Auto) Eos # (Auto) Baso # (Auto) Abs Immat Gran (auto) Absolute Neuts (auto) Absolute Nucleated RBC Nucleated RBC % (auto) PT 52.1 H INR 4.4 H Sodium Potassium Chloride Carbon Dioxide Anion Gap BUN Creatinine Estim Creat Clear Calc Estimated GFR Random Glucose Calcium Ferritin Total Bilirubin Direct Bilirubin AST ALT Alkaline Phosphatase Troponin I High Sens B-Natriuretic Peptide Total Protein Albumin Lipase Vitamin B12 Folate Urine Color Urine Appearance Urine pH Ur Specific [place] Urine Protein Urine Glucose (UA) Urine Ketones Urine Blood Urine Nitrite Ur Leukocyte Esterase Urine RBC Urine WBC Ur Squamous Epith Cells Urine Bacteria COVID-19 (LORRAINE) COVID-19 Clin Com Imaging Radiologist's impression: Impressions Chest X-Ray 01/01/21 17:32 IMPRESSION: Increased interstitial markings of uncertain etiology. This could be potentially artifactual related with bronchovascular crowding and differences in technique. However, bronchial wall thickening in the setting of an atypical infection or reactive airways disease could appear similarly. Correlate clinically. Venous Duplex 01/01/21 21:54 IMPRESSION: No DVT demonstrated in the bilateral lower extremity with the caveat of suboptimal evaluation of compressibility in the distal femoral veins bilaterally and suboptimal evaluation of the peroneal veins in the calf. Assessment and Plan (1) Acute on chronic anemia: Status: Acute (2) CHF exacerbation: Status: Acute (3) Persistent atrial fibrillation: Status: Acute 80-year-old female who is presenting for shortness of breath. Clinically she is in heart failure. She was started on IV diuretics and she is in a negative balance at this point. Continue diuretics at the same dose. Blood pressure is elevated. I am resuming her amlodipine 5 mg and adding Imdur 15 mg which we can titrate to 30 if she tolerates this dose. This will help improve her filling pressures. Likely reason for exacerbation of her congestive heart failure is elevated blood pressure as well as anemia. She has a pretty high MCV appears all her cell lines are low. She may have some mild dysplastic process. If she drops further then I think she may need blood transfusion. Chest discomfort is likely due to high blood pressure and anemia. Currently biomarkers are negative. Thank you for allowing me to participate in the care of your patient. Please feel free to contact me if you have any questions. Procedures Date of Service Date of Service: 01/02/21
--- NOTE | 2021-01-02 10:46 | P.PNIM_ITS ---
Subjective Subjective Date of Service: 01/12/21 Interval History: seen and examined this AM she reports SOB and leg swelling Review of Systems negative for interval history Physical Exam Vital Signs: Vital Signs: Last Vital Signs Temp 98.4 F 01/01/21 21:05 Pulse 63 01/02/21 07:22 Resp 18 01/02/21 07:22 BP 161/72 H 01/02/21 07:22 Pulse Ox 92 01/02/21 07:22 Body Mass Index 36.0 Const: Other: General - no acute distress, appears comfortable Cardiovascular - IRR; +JVD; 1-2+ pitting edema Lungs - normal respiratory effort, clear to auscultation bilaterally, no wheezing Abdomen - soft, nontender, no rebound or guarding Extremities - bilateral pitting edema Neuro - awake and alert, no focal deficits Objective Data Active Medications Acetaminophen (Acetaminophen 325 Mg Tablet) 650 mg PO Q6H PRN PRN Reason: Pain, Mild (Pain Scale 1-3) Amlodipine Besylate (Amlodipine Besylate 5 Mg Tablet) 5 mg PO DAILY [facility]; Protocol Folic Acid (Folic Acid 1 Mg Tablet) 1 mg PO DAILY [facility] Furosemide (Furosemide 40 Mg/4 Ml Vial) 40 mg IVPUSH Q12H [facility]; Protocol Last Admin: 01/02/21 01:13 Dose: 40 mg Documented by: BALA Ceftriaxone Sodium 1 gm/ (Sodium Chloride) 50 mls @ 100 mls/hr IV Q24H [facility] Last Infusion: 01/02/21 06:41 Dose: 0 mls/hr Documented by: BALA Isosorbide Mononitrate (Isosorbide Mononitrate 30 Mg Tab.Er.24h) 15 mg PO DAILY [facility]; Protocol Ondansetron HCl (Ondansetron Hcl 4 Mg/2 Ml Vial) 4 mg IVPUSH Q8H PRN PRN Reason: Nausea and Vomiting Pharmacy Consult (Consult Rx Perform Med Rec) 1 each MISCELLANE ONCE PRN PRN Reason: Consult order Sertraline HCl (Sertraline Hcl 50 Mg Tablet) 50 mg PO DAILY [facility] Sodium Chloride (0.9 % Sodium Chloride Flush 3 Ml Syringe) 3 ml IVFLUSH QSHIFT [facility] Last Admin: 01/02/21 09:45 Dose: 3 ml Documented by: MAG Labs CBC & Chem 7: 01/08/21 06:33 01/08/21 06:33 Labs: Laboratory Results - last 24 hr 01/01/21 01/01/21 01/01/21 18:17 18:17 18:17 MCV 106.1 H MCH 34.8 H MCHC 32.8 RDW 20.9 H Plt Count 111 L D MPV 11.1 Immature Gran % (Auto) 0.9 H Neut % (Auto) 67.3 Lymph % (Auto) 23.1 [place] % (Auto) 4.2 Eos % (Auto) 3.9 Baso % (Auto) 0.6 Lymph # (Auto) 0.8 L [place] # (Auto) 0.1 Eos # (Auto) 0.1 Baso # (Auto) 0.0 Abs Immat Gran (auto) 0.03 Absolute Neuts (auto) 2.2 Absolute Nucleated RBC 0.000 Nucleated RBC % (auto) 0.0 PT INR Anion Gap 11 L Estim Creat Clear Calc 62.4 Estimated GFR > 60 Random Glucose 97 Calcium 8.8 Ferritin Total Bilirubin 1.2 H Direct Bilirubin 0.5 AST 29 D ALT 19 Alkaline Phosphatase 59 D Troponin I High Sens 9.3 B-Natriuretic Peptide 746 H Total Protein 6.5 Albumin 3.6 Lipase 16 Vitamin B12 Folate Urine Color Urine Appearance Urine pH Ur Specific [place] Urine Protein Urine Glucose (UA) Urine Ketones Urine Blood Urine Nitrite Ur Leukocyte Esterase Urine RBC Urine WBC Ur Squamous Epith Cells Urine Bacteria COVID-19 ([place]OR[place]INE) COVID-19 Clin Com 01/01/21 01/01/21 01/02/21 18:17 20:06 06:18 MCV 105.4 H MCH 39.0 H MCHC 37.0 H RDW 20.5 H Plt Count 108 L MPV 11.1 Immature Gran % (Auto) 0.6 H Neut % (Auto) 58.6 Lymph % (Auto) 30.3 [place] % (Auto) 5.3 Eos % (Auto) 4.6 H Baso % (Auto) 0.6 Lymph # (Auto) 1.0 L [place] # (Auto) 0.2 Eos # (Auto) 0.2 Baso # (Auto) 0.0 Abs Immat Gran (auto) 0.02 Absolute Neuts (auto) 1.9 L Absolute Nucleated RBC 0.000 Nucleated RBC % (auto) 0.0 PT INR Anion Gap Estim Creat Clear Calc Estimated GFR Random Glucose Calcium Ferritin Total Bilirubin Direct Bilirubin AST ALT Alkaline Phosphatase Troponin I High Sens B-Natriuretic Peptide Total Protein Albumin Lipase Vitamin B12 Folate Urine Color YELLOW Urine Appearance CLEAR Urine pH 5.5 Ur Specific [place] 1.020 Urine Protein TRACE Urine Glucose (UA) NEG Urine Ketones NEG Urine Blood TRACE Urine Nitrite POS H Ur Leukocyte Esterase 1+ H Urine RBC 0-2 Urine WBC 1-4 Ur Squamous Epith Cells TRACE Urine Bacteria 3+ COVID-19 ([place]) Negative COVID-19 Clin Com See Note 01/02/21 01/02/21 01/02/21 06:18 06:18 06:18 MCV MCH MCHC RDW Plt Count MPV Immature Gran % (Auto) Neut % (Auto) Lymph % (Auto) [place] % (Auto) Eos % (Auto) Baso % (Auto) Lymph # (Auto) [place] # (Auto) Eos # (Auto) Baso # (Auto) Abs Immat Gran (auto) Absolute Neuts (auto) Absolute Nucleated RBC Nucleated RBC % (auto) PT INR Anion Gap 14 Estim Creat Clear Calc 63.3 Estimated GFR > 60 Random Glucose 90 Calcium 8.6 Ferritin 109 Total Bilirubin Direct Bilirubin AST ALT Alkaline Phosphatase Troponin I High Sens B-Natriuretic Peptide Total Protein Albumin Lipase Vitamin B12 264 Folate > 20.0 Urine Color Urine Appearance Urine pH Ur Specific [place] Urine Protein Urine Glucose (UA) Urine Ketones Urine Blood Urine Nitrite Ur Leukocyte Esterase Urine RBC Urine WBC Ur Squamous Epith Cells Urine Bacteria COVID-19 ([place]) COVID-19 Clin Com 01/02/21 09:31 MCV MCH MCHC RDW Plt Count MPV Immature Gran % (Auto) Neut % (Auto) Lymph % (Auto) [place] % (Auto) Eos % (Auto) Baso % (Auto) Lymph # (Auto) [place] # (Auto) Eos # (Auto) Baso # (Auto) Abs Immat Gran (auto) Absolute Neuts (auto) Absolute Nucleated RBC Nucleated RBC % (auto) PT 52.1 H INR 4.4 H Anion Gap Estim Creat Clear Calc Estimated GFR Random Glucose Calcium Ferritin Total Bilirubin Direct Bilirubin AST ALT Alkaline Phosphatase Troponin I High Sens B-Natriuretic Peptide Total Protein Albumin Lipase Vitamin B12 Folate Urine Color Urine Appearance Urine pH Ur Specific [place] Urine Protein Urine Glucose (UA) Urine Ketones Urine Blood Urine Nitrite Ur Leukocyte Esterase Urine RBC Urine WBC Ur Squamous Epith Cells Urine Bacteria COVID-19 ([facility]) COVID-19 Clin Com Assessment and Plan (1) UTI (urinary tract infection): Status: Acute Assessment and Plan: 80-year-old female with extensive past medical history as mentioned above who presents to the hospital with complaints of difficulty breathing found to have CHF exacerbation UTI as well as acute on chronic anemia # acute on chronic diastolic chf IV lasix, i/o, weights, low salt diet - cardiology consult - repeat echocardiogram # acute on chronic anemia work up ordered # UTI rocephin Quality Stroke Does the patient have a stroke diagnosis?: No VTE Prior VTE?: No VTE Risk Level:: Medical - moderate - high VTE Device Contraindication: Treatment Not Indicated VTE Drug Contraindication: N/A - Med Ordered
--- NOTE | 2021-01-02 11:10 | MHC.CM.PN ---
INFO RECEIVED FROM [facility] RELIABILITY ENGINEER IS BALA ([phone]) MESSAGE LEFT FOR CALL BACK TO ASK ABOUT [facility] AND ADDITIONAL INFO THAT MAY BE NEEDED
[2021-01-02 11:35] LABS: Glucose, Whole Blood 100 mg/dL (60-115)
[2021-01-02] MEDS: Isosorbide Mononitrate 30 MG TAB.ER.24H 15 MG PO (12:47)
[2021-01-02] MEDS: amLODIPine Besylate 5 MG TABLET PO (12:47)
[2021-01-02 16:25] LABS: Glucose, Whole Blood 132 mg/dL (60-115)
[2021-01-02 20:37] LABS: Glucose, Whole Blood 115 mg/dL (60-115)
[2021-01-02] MEDS: Acetaminophen 325 MG TABLET 650 MG PO (21:31)
[2021-01-03] VITALS (8 sets, daily range): BP systolic 133–150; BP diastolic 60–76; PULSE 56–67; RESP 15–67; TEMP 36.4–37.2; O2SAT 92–96; BMI 37.5
[2021-01-03 00:58] LABS: Glucose, Whole Blood 107 mg/dL (60-115)
[2021-01-03] MEDS: Furosemide 40 MG/4 ML VIAL IVPUSH ×2 (01:35→12:03)
[2021-01-03] MEDS: cefTRIAXone sodium 1 GM in 0.9 % Sodium Chloride 50 ML IV (06:20)
[2021-01-03] MEDS: 0.9 % Sodium Chloride Flush 3 ML SYRINGE IVFLUSH (07:42)
[2021-01-03] MEDS: Isosorbide Mononitrate 30 MG TAB.ER.24H 15 MG PO (07:42)
[2021-01-03] MEDS: amLODIPine Besylate 5 MG TABLET PO (07:43)
[2021-01-03] MEDS: Folic Acid 1 MG TABLET PO (07:43)
[2021-01-03] MEDS: Sertraline HCL 50 MG TABLET PO (07:43)
[2021-01-03 07:48] LABS: Hemoglobin 7.7 g/dl (12.0-16.0); Mean Corpuscular HGB Conc 33.5 g/dl (31.0-35.0); Mean Corpuscular Hemoglobin 35.3 pg (27.0-33.0); Mean Corpuscular Volume 105.5 fL (80.0-98.0); Mean Platelet Volume 10.5 fL (9.4-12.3); Platelet Count 111 X10*3/uL (160-400); Red Blood Count 2.18 X10*6/uL (4.20-5.50); Red Cell Distribution Width 20.2 % (11.0-16.0); White Blood Count 3.6 X10*3/uL (4.8-10.8)
--- NOTE | 2021-01-03 08:29 | HO.PM.IMPN ---
Subjective Subjective Date of Service: 01/03/21 Interval History: Seen in f/u heart failure exacerbation, overall feels better, leg swelling is beter, still unable to lay down flat Review of Systems HAWKINS leg swelling Physical Exam Vital Signs: Vital Signs: Last Vital Signs Temp 98 F 01/03/21 07:00 Pulse 63 01/03/21 07:43 Resp 19 01/03/21 07:00 BP 150/67 H 01/03/21 07:43 Pulse Ox 94 01/03/21 07:00 Body Mass Index 37.5 Const: Other: General - no acute distress, appears comfortable Cardiovascular - IRR; _-JVD; 1-2+ pitting edema Lungs - normal respiratory effort, clear to auscultation bilaterally, no wheezing Abdomen - soft, nontender, no rebound or guarding Extremities - bilateral pitting edema Neuro - awake and alert, no focal deficits Objective Data Active Medications Acetaminophen (Acetaminophen 325 Mg Tablet) 650 mg PO Q6H PRN PRN Reason: Pain, Mild (Pain Scale 1-3) Last Admin: 01/02/21 21:31 Dose: 650 mg Documented by: NATASHA Amlodipine Besylate (Amlodipine Besylate 5 Mg Tablet) 5 mg PO DAILY [facility]; Protocol Last Admin: 01/03/21 07:43 Dose: 5 mg Documented by: MARCELLA Folic Acid (Folic Acid 1 Mg Tablet) 1 mg PO DAILY [facility] Last Admin: 01/03/21 07:43 Dose: 1 mg Documented by: MARCELLA Furosemide (Furosemide 40 Mg/4 Ml Vial) 40 mg IVPUSH Q12H [facility]; Protocol Last Admin: 01/03/21 01:35 Dose: 40 mg Documented by: NATASHA Ceftriaxone Sodium 1 gm/ (Sodium Chloride) 50 mls @ 100 mls/hr IV Q24H [facility] Last Infusion: 01/03/21 06:50 Dose: 0 mls/hr Documented by: NATASHA Isosorbide Mononitrate (Isosorbide Mononitrate 30 Mg Tab.Er.24h) 15 mg PO DAILY [facility]; Protocol Last Admin: 01/03/21 07:42 Dose: 15 mg Documented by: MARCELLA Ondansetron HCl (Ondansetron Hcl 4 Mg/2 Ml Vial) 4 mg IVPUSH Q8H PRN PRN Reason: Nausea and Vomiting Pharmacy Consult (Consult Rx Perform Med Rec) 1 each MISCELLANE ONCE PRN PRN Reason: Consult order Sertraline HCl (Sertraline Hcl 50 Mg Tablet) 50 mg PO DAILY [facility] Last Admin: 01/03/21 07:43 Dose: 50 mg Documented by: MARCELLA Sodium Chloride (0.9 % Sodium Chloride Flush 3 Ml Syringe) 3 ml IVFLUSH QSHIFT [facility] Last Admin: 01/03/21 07:42 Dose: 3 ml Documented by: MARCELLA Labs CBC & Chem 7: 01/03/21 07:10 01/02/21 06:18 Labs: Laboratory Results - last 24 hr 01/01/21 01/02/21 01/02/21 18:17 06:18 06:18 Hgb 8.5 L 8.0 L Hct 25.9 L 21.6 L MCV MCH MCHC RDW Plt Count MPV Absolute Nucleated RBC Nucleated RBC % (auto) PT INR POC Glucose Vitamin B12 264 Folate > 20.0 Blood Type Antibody Screen 01/02/21 01/02/21 01/02/21 09:31 11:26 15:50 Hgb Hct MCV MCH MCHC RDW Plt Count MPV Absolute Nucleated RBC Nucleated RBC % (auto) PT 52.1 H INR 4.4 H POC Glucose 100 132 H Vitamin B12 Folate Blood Type Antibody Screen 01/02/21 01/03/21 01/03/21 20:16 00:49 07:10 Hgb 7.7 L Hct 23.0 L MCV 105.5 H MCH 35.3 H MCHC 33.5 RDW 20.2 H Plt Count 111 L MPV 10.5 Absolute Nucleated RBC 0.000 Nucleated RBC % (auto) 0.0 PT INR POC Glucose 115 107 Vitamin B12 Folate Blood Type Antibody Screen 01/03/21 07:10 Hgb Hct MCV MCH MCHC RDW Plt Count MPV Absolute Nucleated RBC Nucleated RBC % (auto) PT INR POC Glucose Vitamin B12 Folate Blood Type O Positive Antibody Screen NEGATIVE Microbiology Microbiology Results: Microbiology 01/01/21 20:25 Urine Culture - Preliminary Urine clean catch - Urine gamboa top Culture in progress. Assessment and Plan (1) UTI (urinary tract infection): Status: Acute (2) Acute on chronic anemia: Status: Acute (3) CHF exacerbation: Status: Acute Assessment and Plan: 80-year-old female with extensive past medical history as mentioned above who presents to the hospital with complaints of difficulty breathing found to have CHF exacerbation UTI as well as acute on chronic anemia # acute CHF exacerbation, likely diastolic type - has orthopnea, PND, dyspnea, as well as lower extremity edema - chest x-ray shows interstitial markings - patient had an echo done this year that showed ejection fraction of 60-65% with grade 3 diastolic dysfunction - continue IV Lasix, low sodium diet, monitor ins and out - cardiology following - repeat echocardiogram # acute on chronic anemia, macrocytic with normal B12 and folate level, hematocrit has droped from 37 to 21 since August, component of GI loss needs to be ruled out as such consulting GI, check occult blood, check iron - threshold for transfusion hemoglobin less than 7 # UTI -asymptomatic - given her age and other comorbidities will treat with IV antibiotics - follow cultures HTN--BP is bit higher, continue Norvasc, increase indur to 30 AFIB rate is cotnrolled, INR is 4, hold coumadin and recheck tomorrow Quality Stroke Does the patient have a stroke diagnosis?: No VTE Prior VTE?: No VTE Risk Level:: Medical - moderate - high VTE Device Contraindication: Treatment Not Indicated VTE Drug Contraindication: N/A - Med Ordered
[2021-01-03] MEDS: Acetaminophen 325 MG TABLET 650 MG PO ×2 (10:00→21:37)
--- NOTE | 2021-01-03 11:05 | P.CNGI_ITS ---
History of Present Illness Data of Consult Service Date: 01/03/21 Requesting physician: Parvez Loza Primary Care Provider: Riccardo Page MD [facility] Reason for consult: acute on chronic anemia, suspected GIB 80 YF with history of diastolic heart failure with preserved ejection fraction, anxiety and depression, AFib, CVA, HTN, HLD, rheumatoid arthritis, type 2 diabetes seen at [facility] on 01/01/21 with worsening shortness of breath.? Pt reported that she has been having SOB with minimal activity/exertion for the past several days. Her symptoms became worse over the last 2 days. Pt denied cough or phlegm production, has orthopnea PND, lower extremity edema for the same amount of time.? Pt denied fever or chills, no chest pain, no palpitations, no abdominal pain nausea or vomiting, no diarrhea constipation, no urinary symptoms.? No numbness tingling or weakness. On arrival to the ED patient was hemodynamically stable except for a slightly elevated blood pressure Labs are significant for leukopenia of 3.3, hemoglobin of 8.5 that dropped from 10.9 in October, platelets of 111 BNP of 746, troponin of 9.3, UA that is positive for nitrites, leukocyte Estrace, and some WBC Chest x-ray shows increased interstitial markings Venous duplex of bilateral lower extremity shows no DVT with the caveats of suboptimal evaluation of come past ability in the distal femoral veins. Patient was admitted for management of CHF Patient gives a history of chronic anemia for the past several years. She complains of nocturnal heartburn and postprandial regurgitation (food goes down OK and if she coughs the food comes up into the chest) Pt admits to weight loss from 225 to 184 lbs over several months. She complains of chronic diarrhea with 3-4 loose BMs a day for several months with fecal incontinence at times. She denies black stools or rectal bleeding. Patient has difficulty sleeping and denies loud snoring or sleep apnea - she sleeps in a recliner with feet elevated Pt is on chronic anticoagulation with warfarin for chronic atrial fibrillation and denies use of nonsteroidals. Patient is lives with her and has 3 children and 32 grand and great grand kids. 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 Family hx is positive for GERD in several family members and pt denies known family history of colon polyps, colon cancer or other GI malignancies. IMAGING STUDIES: 06/2009 UGI showed a small sliding hiatal hernia. ENDOSCOPIC STUDIES: 2002 colonoscopy was performed by Dr. Musa and was negative. Exam was limited due to moderate amount of liquid stool coating the mucosa. Pt denies having an EGD in the past. Review of Systems Constitutional: Constitutional: Denies fever(s), Denies headache(s) and Reports weight loss Eyes: Eyes: Denies eye discharge and Denies irritation ENT: Reports Normal hearing present, Denies dysphagia, Denies dizziness and Denies headache(s) Cardiovascular: Cardiovascular: Denies chest pain, Reports leg edema and Reports dyspnea on exertion Respiratory: Respiratory: Denies cough, Reports dyspnea on exertion and Denies wheezing Gastrointestinal: Gastrointestinal: Denies abdominal pain, Denies change in bowel habits, Denies dysphagia, Reports heartburn and Reports diarrhea Genitourinary: Genitourinary: Denies difficulty voiding and Denies dysuria Musculoskeletal: Musculoskeletal: Denies back pain and Denies arthralgias Integumentary/Breasts: Skin/Breast: Denies pruritus, Denies rash and Denies jaundice Neurologic: Reports Normal hearing present, Denies Abnormal speech present, Denies dizziness, Denies headache(s) and Denies seizure-like activity Psychiatric: Psychiatric: Denies anxiety, Denies depression and Denies panic attacks Endocrine: Endocrine: Denies cold intolerance, Denies flushing and Denies heat intolerance Hematologic/Lymphatic: Hematologic/Lymphatic: Denies easy bleeding and Denies easy bruising Allergic/Immunologic: Allergic/Immunologic: Denies wheezing PMFSH Past Medical History Medical History (HFpEF) heart failure with preserved ejection fraction Acute pyelonephritis Anxiety and depression Atrial fibrillation CHF exacerbation Chronic anticoagulation CVA (cerebral vascular accident) Hypercholesterolemia Hypertension Lumbar vertebral fracture Obesity (BMI 30-39.9) Pneumonia Rheumatoid arthritis Sepsis TIA (transient ischemic attack) Type 2 diabetes mellitus with hyperglycemia Uterine cancer Family History Family History Father Diabetes CAD (coronary artery disease) Mother Diabetes Hypertension Perforated ulcer Sister Diabetes Surgical History Surgical History History of appendectomy History of colonoscopy History of left knee replacement History of right knee joint replacement S/P ANTONIO-O Social History Social History Household Members: Spouse Housing: House Do you presently have visiting nurse or other home services: Yes Alcohol intake: never Patient Tobacco Use Status: Never used Tobacco e-Cigarette/Vaping Use: Never Used Second Hand Smoke Exposure: No Advance Directives Date on File: 05/17/20 service: No Current occupational status: retired Meds Allergies Allergy/AdvReac Type Severity Reaction Status Date / Time shellfish derived Allergy Unknown itchy Verified 11/07/20 15:11 procaine [From Novocain] AdvReac Unknown makes Verified 11/07/20 15:11 patient itchy,puffy Active Medications: Current Medications Acetaminophen (Acetaminophen 325 Mg Tablet) 650 mg PO Q6H PRN PRN Reason: Pain, Mild (Pain Scale 1-3) Last Admin: 01/03/21 10:00 Dose: 650 mg Documented by: Amlodipine Besylate (Amlodipine Besylate 5 Mg Tablet) 5 mg PO DAILY [facility]; Protocol Last Admin: 01/03/21 07:43 Dose: 5 mg Documented by: Folic Acid (Folic Acid 1 Mg Tablet) 1 mg PO DAILY [facility] Last Admin: 01/03/21 07:43 Dose: 1 mg Documented by: Furosemide (Furosemide 40 Mg/4 Ml Vial) 40 mg IVPUSH Q12H [facility]; Protocol Last Admin: 01/03/21 01:35 Dose: 40 mg Documented by: Ceftriaxone Sodium 1 gm/ (Sodium Chloride) 50 mls @ 100 mls/hr IV Q24H [facility] Last Infusion: 01/03/21 06:50 Dose: Infused Documented by: Isosorbide Mononitrate (Isosorbide Mononitrate 30 Mg Tab.Er.24h) 15 mg PO DAILY [facility]; Protocol Last Admin: 01/03/21 07:42 Dose: 15 mg Documented by: Ondansetron HCl (Ondansetron Hcl 4 Mg/2 Ml Vial) 4 mg IVPUSH Q8H PRN PRN Reason: Nausea and Vomiting Pharmacy Consult (Consult Rx Perform Med Rec) 1 each MISCELLANE ONCE PRN PRN Reason: Consult order Sertraline HCl (Sertraline Hcl 50 Mg Tablet) 50 mg PO DAILY [facility] Last Admin: 01/03/21 07:43 Dose: 50 mg Documented by: Sodium Chloride (0.9 % Sodium Chloride Flush 3 Ml Syringe) [facility] Last Admin: 01/03/21 07:42 Dose: 3 ml Documented by: Home Medications Medication Instructions Recorded Confirmed Last Taken Type folic acid 1 mg tablet 1 mg PO DAILY 05/18/20 01/02/21 11/05/20 History warfarin 1 mg tablet 2 mg PO DAILY 09/01/20 01/02/21 11/05/20 History furosemide 40 mg tablet 1 tab PO QAM 01/01/21 01/02/21 Unknown History acetaminophen 500 mg tablet 500 mg PO BEDTIME 01/02/21 01/02/21 Unknown History cholecalciferol (vitamin D3) 1,250 1,250 mcg PO PICKARD 01/02/21 01/02/21 Unknown History mcg (50,000 unit) capsule Physical Exam Vital Signs: Vital Signs: Last Vital Signs Temp 98 F 01/03/21 07:00 Pulse 63 01/03/21 07:43 Resp 19 01/03/21 07:00 BP 150/67 H 01/03/21 07:43 Pulse Ox 94 01/03/21 07:00 Body Mass Index 37.5 Const: General: no acute distress and ill appearing Nutritional Appearance: obese Orientation/consciousness: patient oriented x3 Limitations: no limitations HENMT: Head: Yes normal to inspection Ears: hearing grossly normal bilaterally Mouth: Normal oral and palatal mucosa present Eyes: Sclerae: sclerae normal Pupils: Equal, round and reactive pupils present Neck: Neck: Yes normal visual inspection Chest: Chest palpation & inspection: normal inspection of the chest Resp: Effort & Inspection: normal respiratory effort Auscultation: rales (bibasilar rales) Cardio: Palpation: normal PMI Rate: regular rate Rhythm: abnormal rhythm (Irregularly irregular) Heart sounds: S1 normal heart sound present, S2 normal heart sound present and Murmur heart sound present (systolic murmur at LSB) GI: Palpation (GI): Soft to palpation, nontender and No hepatosplenomegaly present Auscultation: normal bowel sounds Rectal Exam - Female: deferred Skin: General skin exam: no rashes or lesions noted Neuro: General: patient oriented x3, gait normal and moves all extremities Cranial nerves: Yes Equal, round and reactive pupils present and Yes Normal hearing present Speech: No Abnormal speech present Extrem: General: Yes pedal edema (1 + edema bilaterally) Psych: Appearance: grossly normal Mental Status: mental status grossly normal Results Labs CBC & Chem 7: 01/08/21 06:33 01/08/21 06:33 Labs: Short CBC 01/03/21 Range/Units 07:10 WBC 3.6 L (4.8-10.8) X10*3/uL Hgb 7.7 L (12.0-16.0) g/dl Hct 23.0 L (37.0-47.0) % Plt Count 111 L (160-400) X10*3/uL Microbiology Microbiology Results: Microbiology 01/01/21 20:25 Urine clean catch - Urine gamboa top Urine Culture - Preliminary Culture in progress. Assessment and Plan (1) Acute on chronic anemia: Status: Acute (2) Chronic anticoagulation: Status: Acute (3) Type 2 diabetes mellitus with hyperglycemia: Qualifiers: Diabetes mellitus residential insulin use: without residential use Qualified Code(s): E11.65 - Type 2 diabetes mellitus with hyperglycemia Status: Acute 80 YF with history of diastolic heart failure with preserved ejection fraction, anxiety and depression, AFib, CVA, HTN, HLD, rheumatoid arthritis, type 2 diabetes admitted with worsening SOB due to heartfailure and acute on chr onic macrocytic anemia/pancytopenia. Pt complains of nocturnal heartburn and post prandial regurgitation. UGI in the past showed a sliding hiatal hernia. Anemia is likely multifactorial - possibly hypoproliferative BM versus Upper or Lower GI blood loss. RECOMMENDATIONS: 1. Agree with proceeding with blood transfusion 2. Stool hemoccults x 3, reticulocyte count, examination of peripheral smear, LDH, uric acid levels 3. Abdominal US to rule out cirrhosis (pt had fatty infilteration on past abd US) 3. Hematology consult. 4. If above workup is suggestive of a GI source, I will schedule her for an EGD and Colonoscopy. Procedures Date of Service Date of Service: 01/03/21
--- NOTE | 2021-01-03 12:49 | PM.PNCARD ---
Subjective Subjective Date of Service: 01/03/21 Interval history: Complaining of a severe headache today. She was started on isosorbide yesterday. Physical Exam Vital Signs: Last Vital Signs Temp 97.6 F 01/03/21 11:36 Pulse 67 01/03/21 11:36 Resp 67 H 01/03/21 11:36 BP 133/60 01/03/21 11:36 Pulse Ox 95 01/03/21 11:36 Body Mass Index 37.5 GENERAL APPEARANCE: in no acute distress, pleasant. NECK: no carotid bruit, + jugular venous distention. SKIN: no suspicious lesions, warm and dry. HEART:? Systolic murmur, irregular rate and rhythm. LUNGS: clear to auscultation bilaterally. ABDOMEN: soft, nontender. EXTREMITIES: 1+ edema. PERIPHERAL PULSES: equal. NEUROLOGIC: No gross deficits, AAO X 3 Objective Labs and Meds Result diagrams: 01/03/21 07:10 01/02/21 06:18 Lab results: Laboratory Results - last 24 hr 01/02/21 01/02/21 01/03/21 15:50 20:16 00:49 WBC RBC Hgb Hct MCV MCH MCHC RDW Plt Count MPV Absolute Nucleated RBC Nucleated RBC % (auto) POC Glucose 132 H 115 107 Blood Type Antibody Screen 01/03/21 01/03/21 07:10 07:10 WBC 3.6 L RBC 2.18 L Hgb 7.7 L Hct 23.0 L MCV 105.5 H MCH 35.3 H MCHC 33.5 RDW 20.2 H Plt Count 111 L MPV 10.5 Absolute Nucleated RBC 0.000 Nucleated RBC % (auto) 0.0 POC Glucose Blood Type O Positive Antibody Screen NEGATIVE Progress Note: A&P Assessment and plan (1) Acute on chronic anemia: Status: Acute (2) CHF exacerbation: Status: Acute Assessment and Plan: 80-year-old female who is presenting with shortness of breath. She is also complaining of exertional left arm discomfort. She was given isosorbide to help with filling pressures but it appears she is getting significant headaches with that and I think we should not continue it. She is clinically volume overloaded. Continue IV diuretics at this stage. I think she is anemic and potentially that is also playing a role in her symptoms. I think she will benefit from blood transfusion. She also is complaining of some exertional arm discomfort which can be an ischemic symptoms in her but right now due to anemia she is not even on aspirin. I think we transfuse and control blood pressure and reassess these symptoms. We will follow along with you. Fall Risk Details Current Medications: Current Medications Acetaminophen (Acetaminophen 325 Mg Tablet) 650 mg PO Q6H PRN PRN Reason: Pain, Mild (Pain Scale 1-3) Last Admin: 01/03/21 10:00 Dose: 650 mg Documented by: Amlodipine Besylate (Amlodipine Besylate 5 Mg Tablet) 5 mg PO DAILY [facility]; Protocol Last Admin: 01/03/21 07:43 Dose: 5 mg Documented by: Folic Acid (Folic Acid 1 Mg Tablet) 1 mg PO DAILY [facility] Last Admin: 01/03/21 07:43 Dose: 1 mg Documented by: Furosemide (Furosemide 40 Mg/4 Ml Vial) 40 mg IVPUSH Q12H [facility]; Protocol Last Admin: 01/03/21 12:03 Dose: 40 mg Documented by: Ceftriaxone Sodium 1 gm/ (Sodium Chloride) 50 mls @ 100 mls/hr IV Q24H [facility] Last Infusion: 01/03/21 06:50 Dose: Infused Documented by: Ondansetron HCl (Ondansetron Hcl 4 Mg/2 Ml Vial) 4 mg IVPUSH Q8H PRN PRN Reason: Nausea and Vomiting Pharmacy Consult (Consult Rx Perform Med Rec) 1 each MISCELLANE ONCE PRN PRN Reason: Consult order Sertraline HCl (Sertraline Hcl 50 Mg Tablet) 50 mg PO DAILY [facility] Last Admin: 01/03/21 07:43 Dose: 50 mg Documented by: Sodium Chloride (0.9 % Sodium Chloride Flush 3 Ml Syringe) 3 ml IVFLUSH QSHIFT [facility] Last Admin: 01/03/21 07:42 Dose: 3 ml Documented by: Time Spent With Patient Time: Total time spent is greater than 50% in coordination of care (as documented) at patient's floor/unit and/or counseling patient: Time with patient: 15 - 24 minutes Progress Note: Quality Stroke Does the patient have a stroke diagnosis?: No Procedures Date of Service Date of Service: 01/03/21
[2021-01-03 14:23] LABS: Iron 33 mcg/dL (30-160); Lactate Dehydrogenase 491 U/L (122-220); Percent Iron Saturation 13 % (15-50); Total Iron Binding Capacity 252 mcg/dL (228-428); Unsaturated Iron Binding 219 ug/dL; Uric Acid 11.6 mg/dL (2.4-5.7)
[2021-01-03 14:27] LABS: Immature Retic Fraction 4.4 % (3.0-15.9); Retic HGB Equivalent 39.4 pg (30.0-35.0); Reticulocyte Percent 0.9 % (0.5-1.8); Reticulocytes Absolute 0.019 X10*6/uL (0.026-0.095)
[2021-01-04] VITALS (11 sets, daily range): BP systolic 122–160; BP diastolic 63–82; PULSE 61–80; RESP 14–20; TEMP 36–37.2; O2SAT 91–95; BMI 37.6
[2021-01-04] MEDS: Furosemide 40 MG/4 ML VIAL IVPUSH ×2 (00:25→17:01)
[2021-01-04] MEDS: 0.9 % Sodium Chloride Flush 3 ML SYRINGE IVFLUSH ×4 (00:26→20:34)
[2021-01-04] MEDS: Acetaminophen 325 MG TABLET 650 MG PO ×2 (03:47→21:35)
[2021-01-04] MEDS: cefTRIAXone sodium 1 GM in 0.9 % Sodium Chloride 50 ML IV (05:39)
[2021-01-04] MEDS: amLODIPine Besylate 5 MG TABLET PO (07:39)
[2021-01-04] MEDS: Sertraline HCL 50 MG TABLET PO (07:39)
[2021-01-04] MEDS: Folic Acid 1 MG TABLET PO (07:39)
--- NOTE | 2021-01-04 10:26 | HO.PM.IMPN ---
Subjective Subjective Date of Service: 01/04/21 Interval History: still c/o REYES + weakness dyspnea improved but still has orthopnea no chest pain legs less swollen Review of Systems Review of Systems: Yes all other systems are reviewed and are negative Physical Exam Vital Signs: Vital Signs: Last Vital Signs Temp 98.4 F 01/04/21 08:00 Pulse 78 01/04/21 08:00 Resp 20 01/04/21 08:00 BP 135/63 01/04/21 08:00 Pulse Ox 95 01/04/21 08:00 Body Mass Index 37.6 Gen: in no acute distress HEENT: sclera anicteric, moist mucus membranes Neck: supple Lungs: clear to auscultation bilaterally Heart: regular rate and rhythm, no murmurs Abd: soft, non-tender, non-distended Ext: 1+ bilateral edema of legs Skin: warm/well-perfused Neuro: alert and oriented x3, no focal findings Psych: appropriate affect Objective Data Active Medications Acetaminophen (Acetaminophen 325 Mg Tablet) 650 mg PO Q6H PRN PRN Reason: Pain, Mild (Pain Scale 1-3) Last Admin: 01/04/21 03:47 Dose: 650 mg Documented by: NATASHA Amlodipine Besylate (Amlodipine Besylate 10 Mg Tablet) 10 mg PO DAILY [facility]; Protocol Folic Acid (Folic Acid 1 Mg Tablet) 1 mg PO DAILY [facility] Last Admin: 01/04/21 07:39 Dose: 1 mg Documented by: ANALIA Furosemide (Furosemide 40 Mg/4 Ml Vial) 40 mg IVPUSH Q12H [facility]; Protocol Last Admin: 01/04/21 00:25 Dose: 40 mg Documented by: TJ Ceftriaxone Sodium 1 gm/ (Sodium Chloride) 50 mls @ 100 mls/hr IV Q24H [facility] Last Infusion: 01/04/21 06:12 Dose: 0 mls/hr Documented by: TJ Nystatin (Nystatin Powder 15 Gm Bottle) 1 appl TOPICAL BID [facility]; Protocol Ondansetron HCl (Ondansetron Hcl 4 Mg/2 Ml Vial) 4 mg IVPUSH Q8H PRN PRN Reason: Nausea and Vomiting Pharmacy Consult (Consult Rx Perform Med Rec) 1 each MISCELLANE ONCE PRN PRN Reason: Consult order Sertraline HCl (Sertraline Hcl 50 Mg Tablet) 50 mg PO DAILY [facility] Last Admin: 01/04/21 07:39 Dose: 50 mg Documented by: ANALIA Sodium Chloride (0.9 % Sodium Chloride Flush 3 Ml Syringe) 3 ml IVFLUSH QSHIFT [facility] Last Admin: 01/04/21 07:40 Dose: 3 ml Documented by: ANALIA Labs CBC & Chem 7: 01/03/21 07:10 01/02/21 06:18 Labs: Laboratory Results - last 24 hr 01/03/21 01/03/21 01/03/21 07:10 13:51 13:51 Absolute Retic 0.019 L Percent Retic 0.9 Immature Retic Fraction 4.4 Retic Hgb Equivalent 39.4 H Uric Acid 11.6 H Iron 33 TIBC 252 % Saturation 13 L Unsat Iron Binding 219 Lactate Dehydrogenase 491 H Blood Type O Positive Antibody Screen NEGATIVE Crossmatch See Detail Crossmatch (AHG) See Detail Microbiology Microbiology Results: Microbiology 01/01/21 20:25 Urine Culture - Final Urine clean catch - Urine gamboa top Klebsiella pneumoniae Assessment and Plan (1) UTI (urinary tract infection): Status: Acute (2) Acute on chronic anemia: Status: Acute (3) CHF exacerbation: Status: Acute Assessment and Plan: hospital d#4 80yo F with HFpEF, AF on warfarin, hx CVA, HTN, HLD, obesity, RA presented with dyspnea + admitted for CHF exacerbation oned above who presents to the hospital with complaints of difficulty breathing found to have CHF exacerbation UTI as well as acute on chronic anemia # acute/chronic HFpEF - continue IV furosemide - monitor BNP, I/O (negative 3.3L thus far) - repeat TTE pending - BP control # HTN - increase amlodipine dose # AF - rate is controlled, hold warfarin for INR 4.4 # macrocytic anemia # pancytopenia - will transfuse 1u pRBCs as symptomatic; give slowly given CHF and diureses afterwards - GI consulted, FOBT pending, abd US to r/o cirrhosis pending - previously attributed to Remicade for RA - check SPEP, DESTINEY, peripheral smear # acute on chronic anemia, macrocytic with normal B12 and folate level, hematocrit has droped from 37 to 21 since August, component of GI loss needs to be ruled out as such consulting GI, check occult blood, check iron - threshold for transfusion hemoglobin less than 7 # Klebsiella pneumoniae UTI - R to ampicillin + SMX/TMP - d#3 ceftriaxone # mood disorder - sertraline # dispo - PT consult Quality Stroke Does the patient have a stroke diagnosis?: No VTE Prior VTE?: No VTE Risk Level:: Medical - moderate - high VTE Device Contraindication: Treatment Not Indicated VTE Drug Contraindication: N/A - Med Ordered
--- NOTE | 2021-01-04 11:24 | PM.PNCARD ---
Subjective Subjective Date of Service: 01/04/21 Interval history: Headache is improving after stopping isosorbide. Physical Exam Vital Signs: Last Vital Signs Temp 98.9 F 01/04/21 10:51 Pulse 61 01/04/21 10:51 Resp 18 01/04/21 10:51 BP 142/65 H 01/04/21 10:51 Pulse Ox 94 01/04/21 10:51 Body Mass Index 37.6 GENERAL APPEARANCE: in no acute distress, pleasant. NECK: no carotid bruit, + jugular venous distention. SKIN: no suspicious lesions, warm and dry. HEART:? Systolic murmur with preserved 2nd heart sound irregular rate and rhythm. LUNGS: clear to auscultation bilaterally. ABDOMEN: soft, nontender. EXTREMITIES: No significant edema.. PERIPHERAL PULSES: equal. NEUROLOGIC: No gross deficits, AAO X 3 Objective Labs and Meds Result diagrams: 01/03/21 07:10 01/02/21 06:18 Lab results: Laboratory Results - last 24 hr 01/03/21 01/03/21 01/03/21 07:10 13:51 13:51 Absolute Retic 0.019 L Percent Retic 0.9 Immature Retic Fraction 4.4 Retic Hgb Equivalent 39.4 H Uric Acid 11.6 H Iron 33 TIBC 252 % Saturation 13 L Unsat Iron Binding 219 Lactate Dehydrogenase 491 H Blood Type O Positive Antibody Screen NEGATIVE Crossmatch See Detail Crossmatch ([facility]) See Detail Progress Note: A&P Assessment and plan (1) Acute on chronic anemia: Status: Acute (2) CHF exacerbation: Status: Acute Assessment and Plan: 80-year-old female who is presenting with shortness of breath.? She is also complaining of exertional left arm discomfort.? She was given isosorbide to help with filling pressures but it appears she is getting significant headaches with that so it was discontinued. Volume status is improving. I think we will even IV diuretics today and change her to p.o. Lasix tomorrow. I think she should be on 40 mg p.o. b.i.d. Lasix from tomorrow. She has anemia and is being worked up for that. As blood pressure improves I think we should reassess her arm discomfort. She continues to have discomfort then we may have to do ischemic evaluation but with ongoing anemia she will be medically managed for now in case he is found to have coronary disease. INR was 4 on Jan 02. She needs endoscopy. She has chronic atrial fibrillation as thing best that we let her drift down on her own. Please avoid giving vitamin K. Thank you for allowing me to participate in the care of your patient. Please feel free to contact me if you have any questions. Fall Risk Details Current Medications: Current Medications Acetaminophen (Acetaminophen 325 Mg Tablet) 650 mg PO Q6H PRN PRN Reason: Pain, Mild (Pain Scale 1-3) Last Admin: 01/04/21 03:47 Dose: 650 mg Documented by: Amlodipine Besylate (Amlodipine Besylate 10 Mg Tablet) 10 mg PO DAILY [facility]IKI; Protocol Folic Acid (Folic Acid 1 Mg Tablet) 1 mg PO DAILY KIKI Last Admin: 01/04/21 07:39 Dose: 1 mg Documented by: Furosemide (Furosemide 40 Mg/4 Ml Vial) 40 mg IVPUSH Q12H [facility]; Protocol Last Admin: 01/04/21 00:25 Dose: 40 mg Documented by: Ceftriaxone Sodium 1 gm/ (Sodium Chloride) 50 mls @ 100 mls/hr IV Q24H [facility] Last Infusion: 01/04/21 06:12 Dose: Infused Documented by: Nystatin (Nystatin Powder 15 Gm Bottle) 1 appl TOPICAL BID [facility]I; Protocol Ondansetron HCl (Ondansetron Hcl 4 Mg/2 Ml Vial) 4 mg IVPUSH Q8H PRN PRN Reason: Nausea and Vomiting Pharmacy Consult (Consult Rx Perform Med Rec) 1 each MISCELLANE ONCE PRN PRN Reason: Consult order Sertraline HCl (Sertraline Hcl 50 Mg Tablet) 50 mg PO DAILY [facility] Last Admin: 01/04/21 07:39 Dose: 50 mg Documented by: Sodium Chloride (0.9 % Sodium Chloride Flush 3 Ml Syringe) 3 ml IVFLUSH QSHIFT [facility] Last Admin: 01/04/21 07:40 Dose: 3 ml Documented by: Time Spent With Patient Time: Total time spent is greater than 50% in coordination of care (as documented) at patient's floor/unit and/or counseling patient: Time with patient: 15 - 24 minutes Progress Note: Quality Stroke Does the patient have a stroke diagnosis?: No Procedures Date of Service Date of Service: 01/04/21
--- NOTE | 2021-01-04 11:39 | PM.HEMONCCN ---
Subjective - Subjective Chief complaint: pancytopenia Patient: known to practice within the last 3 years Consult date: 01/04/21 Primary Care Provider: Riccardo Page MD HPI - Consult Narrative Narrative: Yakelin Abreu is a 80 year old female well known to Dr. Eisenberg for thrombocytopenia. She has severe anemia and leucopenia and thrombocytopenia now with no sign of bleedintg. Her lMCV is elevated as is the LDG. she was recently ;found to have new retroperitoneal adenopathy. 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 She is hemodynamically stable at present. Two past bone marrow biopsies have not shown a neoplasm. Review of Systems - Constitutional Reports weakness - Cardiovascular Reports foot swelling, Reports irregular heart rhythm - Respiratory Reports dyspnea on exertion - Gastrointestinal Reports other - Neurologic Reports hearing normal, Denies abnormal speech, Denies headache(s), Denies seizure-like activity - Hematologic/Lymphatic Reports enlarged lymph nodes PMFSH Medical History: Medical History (Last Reviewed 01/02/21 @ 06:11 by Josh Millard MD) (HFpEF) heart failure with preserved ejection fraction Acute pyelonephritis Anxiety and depression Atrial fibrillation CHF exacerbation Chronic anticoagulation CVA (cerebral vascular accident) Hypercholesterolemia Hypertension Lumbar vertebral fracture Obesity (BMI 30-39.9) Pneumonia Rheumatoid arthritis Sepsis TIA (transient ischemic attack) Type 2 diabetes mellitus with hyperglycemia Uterine cancer Family History: Family History (Last Reviewed 01/02/21 @ 06:11 by Josh Millard MD) Father Diabetes CAD (coronary artery disease) Mother Diabetes Hypertension Perforated ulcer Sister Diabetes Surgical History: Surgical History (Last Reviewed 01/02/21 @ 06:11 by Josh Millard MD) History of appendectomy History of colonoscopy History of left knee replacement History of right knee joint replacement S/P ANTONIO-BSO Social History: Social History (Last Reviewed 01/02/21 @ 06:11 by Josh Millard MD) Living Situation History: Household Members: Spouse Housing: House Do you presently have visiting nurse or other home services: Yes Alcohol History: Alcohol intake: never Tobacco History: Patient Tobacco Use Status: Never used Tobacco e-Cigarette/Vaping Use: Never Used Second Hand Smoke Exposure: No Advance Directives: Advance Directives Date on File: 05/17/20 Occupation Assessmet: service: No Current occupational status: retired Home Medications and Allergies Current Medications: Current Medications Acetaminophen (Acetaminophen 325 Mg Tablet) 650 mg PO Q6H PRN PRN Reason: Pain, Mild (Pain Scale 1-3) Last Admin: 01/04/21 03:47 Dose: 650 mg Documented by: Amlodipine Besylate (Amlodipine Besylate 10 Mg Tablet) 10 mg PO DAILY [facility]; Protocol Folic Acid (Folic Acid 1 Mg Tablet) 1 mg PO DAILY [facility] Last Admin: 01/04/21 07:39 Dose: 1 mg Documented by: Furosemide (Furosemide 40 Mg/4 Ml Vial) 40 mg IVPUSH Q12H [facility]; Protocol Last Admin: 01/04/21 00:25 Dose: 40 mg Documented by: Ceftriaxone Sodium 1 gm/ (Sodium Chloride) 50 mls @ 100 mls/hr IV Q24H [facility] Last Infusion: 01/04/21 06:12 Dose: Infused Documented by: Nystatin (Nystatin Powder 15 Gm Bottle) 1 appl TOPICAL BID [facility]; Protocol Ondansetron HCl (Ondansetron Hcl 4 Mg/2 Ml Vial) 4 mg IVPUSH Q8H PRN PRN Reason: Nausea and Vomiting Pharmacy Consult (Consult Rx Perform Med Rec) 1 each MISCELLANE ONCE PRN PRN Reason: Consult order Sertraline HCl (Sertraline Hcl 50 Mg Tablet) 50 mg PO DAILY [facility] Last Admin: 01/04/21 07:39 Dose: 50 mg Documented by: Sodium Chloride (0.9 % Sodium Chloride Flush 3 Ml Syringe) 3 ml IVFLUSH QSHIFT [facility] Last Admin: 01/04/21 07:40 Dose: 3 ml Documented by: Home Medications Medication Instructions Recorded Confirmed Type folic acid 1 mg tablet 1 mg PO DAILY 05/18/20 01/02/21 History warfarin 1 mg tablet 2 mg PO DAILY 09/01/20 01/02/21 History furosemide 40 mg tablet 1 tab PO QAM 01/01/21 01/02/21 History acetaminophen 500 mg tablet 500 mg PO BEDTIME 01/02/21 01/02/21 History cholecalciferol (vitamin D3) 1,250 1,250 mcg PO PICKARD 01/02/21 01/02/21 History mcg (50,000 unit) capsule Allergies Allergy/AdvReac Type Severity Reaction Status Date / Time shellfish derived Allergy Unknown itchy Verified 11/07/20 15:11 procaine [From Novocain] AdvReac Unknown makes Verified 11/07/20 15:11 patient itchy,puffy Physical Exam Vital signs: Vital Signs Temp 98.9 F 01/04/21 10:51 Pulse 61 01/04/21 10:51 Resp 18 01/04/21 10:51 BP 142/65 H 01/04/21 10:51 Pulse Ox 94 01/04/21 10:51 Intake & Output 01/03/21 01/04/21 01/04/21 18:59 06:59 18:59 Intake Total 170 / 170 Output Total 150 / 1600 1450 / 1600 Balance -150 / -1430 -1280 / -1430 Urine Output (Average ml/kg/hr) 0.14 1.38 Intake: Intake, Oral Amount 120 / 120 Intake, IV Amount 50 / 50 cefTRIAXone sodium 1 gm In 0.9 50 / 50 % Sodium Chloride 50 ml @ 100 mls/hr IV Q24H [facility] Rx#: [id number] Output: Output, Urine Amount 150 / 1600 1450 / 1600 Other: Breakfast % Eaten 50% Lunch % Eaten 25% Urine Bedside Commode Bedside Commode Urine Color Yellow Yellow Weight 87.4 kg [place] Weight in Grams 46717 Weight 87.4 kg - Routine HEENT Exam Head: Present: normal inspection - Routine Neck Exam Present: supple - Routine Respiratory Exam Present: decreased breath sounds - Routine Cardiovascular Exam Cardiovascular: Present: irregular rhythm - Routine Abdominal Exam Present: normal bowel sounds - Routine Extremities Exam Present: pedal edema Hem/Onc Consult Result - Labs CBC & Chem 7: 01/03/21 07:10 01/02/21 06:18 Assessment and Plan Patient Active problem list reviewed?: Yes (1) Acute on chronic anemia Status: Acute - Time Spent With Patient Time Spent with Patient (in minutes): 20 Comment: I recommend transfusion of two units of red cells. Rule out bleeding. Consult Dr. Eisenberg tomorrow. Will cover this weekend.
[2021-01-04 15:14] LABS: OBS Int Ctl Valid YES; OBS1 NEGATIVE (NEGATIVE)
[2021-01-04] MEDS: Nystatin Powder 15 GM BOTTLE 1 APPL TOPICAL ×2 (17:01→20:34)
[2021-01-04 19:01] LABS: Mean Corpuscular HGB Conc 32.3 g/dl (31.0-35.0); Mean Corpuscular Hemoglobin 32.5 pg (27.0-33.0); Mean Corpuscular Volume 100.6 fL (80.0-98.0); Mean Platelet Volume 10.6 fL (9.4-12.3); NRBC Pct Auto 0.7 /100WBC (0.0-0.2); Platelet Count 127 X10*3/uL (160-400); Red Blood Count 3.08 X10*6/uL (4.20-5.50); Red Cell Distribution Width 21.8 % (11.0-16.0); White Blood Count 4.6 X10*3/uL (4.8-10.8)
[2021-01-04 19:07] LABS: INTERNATIONAL NORM RATIO 2.3 (0.9-1.1); Prothrombin Time 26.2 SEC (9.9-13.0)
[2021-01-05] VITALS (10 sets, daily range): BP systolic 117–186; BP diastolic 65–87; PULSE 65–86; RESP 17–20; TEMP 36.3–37.3; O2SAT 92–96; BMI 35.7
[2021-01-05] MEDS: Furosemide 40 MG/4 ML VIAL IVPUSH ×2 (01:07→18:22)
[2021-01-05] MEDS: cefTRIAXone sodium 1 GM in 0.9 % Sodium Chloride 50 ML IV (05:45)
[2021-01-05 07:15] LABS: Hematocrit 30.1 % (37.0-47.0); Hemoglobin 10.2 g/dl (12.0-16.0); Mean Corpuscular HGB Conc 33.9 g/dl (31.0-35.0); Mean Corpuscular Hemoglobin 34.1 pg (27.0-33.0); Mean Corpuscular Volume 100.7 fL (80.0-98.0); Mean Platelet Volume 10.3 fL (9.4-12.3); Platelet Count 130 X10*3/uL (160-400); Red Blood Count 2.99 X10*6/uL (4.20-5.50); Red Cell Distribution Width 21.7 % (11.0-16.0); White Blood Count 3.8 X10*3/uL (4.8-10.8)
[2021-01-05 07:43] LABS: B Type Natriuretic Peptide 271 pg/mL (<100)
[2021-01-05 07:45] LABS: Alanine Aminotransferase 11 U/L (0-31); Albumin Level 3.6 g/dL (3.5-5.0); Alkaline Phosphatase 61 U/L (39-117); Anion Gap 12 (12-20); Aspartate Amino Transferase 17 U/L (5-31); Blood Urea Nitrogen 14 mg/dL (9-16); Calcium 8.9 mg/dL (8.4-10.2); Carbon Dioxide 36 mmol/L (22-29); Chloride 101 mmol/L (96-108); Creatinine Clr Calc Pharmacy 61.2; Estimated Glomerular Filt Rate > 60; Glucose Random 98 mg/dL (60-115); Magnesium 1.5 mg/dL (1.6-2.6); Potassium 3.5 mmol/L (3.3-5.1); Sodium 145 mmol/L (135-145); Total Protein 6.7 g/dL (6.5-8.0)
--- NOTE | 2021-01-05 08:30 | CA_ITS ---
Transthoracic Echocardiogram Patient (Last, First, Middle): Yakelin Abreu E Gender: Female Date of : 1940 Age: 80 Procedure Date: 01/05/2021 Procedure Type: Transthoracic Echocardiogram Location: [facility] [place] Height: 152.4 cm Weight: 82.56 kg BSA: 1.79 m2 Heart Rate: bpm BP: 139 / 65 mmHg Import/Export Specialist: Referring MD: Tania Gusman MD Photo Specialist: Scott Sandhu MD Symptoms: chf Study Quality: Fair ECG Rhythm: Sinus Conclusions: - 1. Normal LV systolic function with mild LVH with elevated filling pressures 2. At least moderately dilated left atrium 3. Severe aortic stenosis 4. Moderately elevated right ventricular systolic pressure with severely elevated right atrial pressures 5. No gross pericardial effusion Findings Left Ventricle Normal left ventricular cavity size. There is mildly increased left ventricular wall thickness. The left ventricular systolic function is normal. The visually estimated ejection fraction is between 60-65%. Elevated filling pressures. E/E prime ratio is >15, consistent with elevated filling pressures. Right Ventricle Mildly increased right ventricular cavity size. There is low normal right ventricular systolic function. There is mildly increased right ventricular wall thickness. Atria The left atrium is moderately dilated. Interatrial shunt cannot be excluded. The right atrium is mildly dilated. Aortic Valve There is moderate calcification of the aortic valve. There is severe aortic valve stenosis. The peak aortic gradient is 50 mmHg.The mean gradient is 30 mmHg. The aortic valve area is 0.77 cm2. There is no aortic valve regurgitation. Calculated mean gradient of 30 mmHg, dimensionless index is 0.23. Calculated valve area 0.8 centimeters sq. Overall consistent with severe aortic stenosis, Paradoxical low-flow Mitral Valve There is moderate anterior and severe posterior mitral leaflet thickening. There is severe mitral annular calcification. There is mild mitral valve regurgitation. There is mild mitral valve stenosis. Pulmonic Valve The pulmonic valve was not well visualized. Tricuspid Valve Likely normal tricuspid valve structure and function. There is mild tricuspid valve regurgitation. Significantly elevated right atrial pressure. Moderate pulmonary hypertension is present. Great Vessels All visible segments of the aorta are normal in size. The pulmonary artery was not well visualized. Venous The inferior vena cava is moderately dilated and does not collapse with inspiration. Pericardium/Pleural There is no evidence of pericardial effusion. Prior Study Comparison Changes noted compared to prior study dated: 05/19/2020. RV systolic pressure measured on this study is lower, could be underestimated. Right atrial pressures are significantly elevated. Aortic stenosis appears to be worse Measurements 2D Linear Measurements IVSd: 1.31 0.6-0.9/0.6-1.0 cm LVIDd: 4.90 3.9-5.3/4.2-5.9 cm LVIDd Index: 2.74 2.4-3.2/2.2-3.1 cm/m2 LVIDs: 3.01 2.0-3.6 cm LVPWd: 1.31 0.7-1.1 cm Ao Root: 2.70 2.1-3.5 cm LA Diam: 4.60 2.7-3.8/3.0-4.0 cm LAIDs Index: 2.57 1.5-2.3 cm/m2 LV Mass: 319.91 67-162/88-224 g LV Mass Index: 178.72 43-95/49-115 g/m2 LVOT Diam: 2.00 3.0+(-)1.3 cm 2D Systolic Function EF 4C: 60.60 >55% EF 2C: 64.90 >55% EF BiP: 61.80 >55% Mitral Valve MV VTI: 0.41 MV Pk Samson: 1.61 MV Mn Samson: 0.90 MV Pk Grad: 10.00 MV Mn Grad: 4.00 MV Pk E: 1.41 MV Decel Time: 222.00 E'Lateral: 9.14 E'Medial: 6.53 E/E' Med: 21.60 E/E' Lat: 15.40 PHT: 65.00 MVA PHT: 3.38 MVA Continuity: 1.53 Decel Desha: 6.32 Aortic Valve AoV Pk Samson: 3.55 AoV Mn Samson: 2.58 AoV VTI: 0.81 AoV Pk Grad: 50.00 Aov Mn Grad: 30.00 HALI Cont.VTI: 0.77 LVOT LVOT Pk Samson: 0.83 LVOT Mn Samson: 0.54 LVOT VTI: 0.20 LVOT Pk Grad: 3.00 LVOT Mn Grad: 1.00 LVOT Diam: 2.00 LVOT Area: 3.14 Diastolic Function MV Pk E: 1.41 E'Medial: 6.53 E/E' Med: 21.60 E' Laterial: 9.14 E/E' Lat: 15.40 Tricuspid Valve TR Pk Samson: 2.95 TR Pk Grad: 40.00 RA Press: 15.00 RVSP: 55.00 Great Vessels Aorta Ao Root-2D: 2.70 2.0-3.7 cm Ao Asc: 3.10 2.1-3.4 cm Pulmonary Valve PV Pk Samson: 2.56 Peak PV Grad: 26.00 Updated in Other Vendor System with Status of Final Scott Sandhu MD electronically signed on 01/05/2021 4:55:36 PM with status of Final
[2021-01-05] MEDS: Folic Acid 1 MG TABLET PO (09:41)
[2021-01-05] MEDS: Sertraline HCL 50 MG TABLET PO (09:41)
[2021-01-05] MEDS: Furosemide 40 MG TABLET PO (09:41)
[2021-01-05] MEDS: amLODIPine Besylate 10 MG TABLET PO (09:41)
[2021-01-05] MEDS: Magnesium Sulfate/H2O 2 GM/50 ML PIGGYBACK IV (09:42)
[2021-01-05] MEDS: 0.9 % Sodium Chloride Flush 3 ML SYRINGE IVFLUSH ×2 (09:42→18:22)
[2021-01-05] MEDS: Nystatin Powder 15 GM BOTTLE 1 APPL TOPICAL ×2 (09:51→22:07)
--- NOTE | 2021-01-05 11:06 | PM.PNCARD ---
Subjective Subjective Date of Service: 01/05/21 Principal diagnosis: CHF,AF Interval history: Patient not having any significant left arm or precordial chest discomfort. Anemia is improved and stable. No overt bleeding. Her shortness of breath is improved. She has diuresed about 4.4 L since hospitalization. Review of Systems Constitutional: Reports no additional constitutional complaints Cardiovascular: Denies chest pain and Reports dyspnea on exertion Respiratory: Reports no additional respiratory complaints and Reports dyspnea on exertion Gastrointestinal: Reports no additional gastrointestinal complaints Genitourinary: Reports no additional female genitourinary complaints Musculoskeletal: Reports no additional musculoskeletal complaints Reports system reviewed and no additional complaints, except as documented Physical Exam Vital Signs: Last Vital Signs Temp 97.8 F 01/05/21 08:00 Pulse 86 01/05/21 08:03 Resp 20 01/05/21 08:00 BP 139/65 01/05/21 09:41 Pulse Ox 92 01/05/21 08:03 Body Mass Index 35.7 Const General: cooperative, comfortable and no acute distress Nutritional Appearance: overweight Orientation/consciousness: patient oriented x3 Neck Neck: Yes trachea midline, Yes supple and Yes no JVD Resp Effort & Inspection: normal respiratory effort Auscultation: no rales, no wheezes and diminished lung sounds Cardio Jugular venous distension: no JVD Rate: regular rate Rhythm: abnormal rhythm irregularly irregular Heart sounds: S1 normal heart sound present and Murmur heart sound present systolic late, decrescendo and crescendo GI Auscultation: normal bowel sounds Skin General skin exam: no rashes or lesions noted Neuro General: patient oriented x3 and no focal motor deficits Extrem General: Yes no clubbing, cyanosis or edema Objective Labs and Meds Result diagrams: 01/05/21 06:46 01/05/21 06:46 Lab results: Laboratory Results - last 24 hr 01/03/21 01/04/21 01/04/21 07:10 14:46 18:54 WBC 4.6 L RBC 3.08 L D Hgb 10.0 L D Hct 31.0 L D MCV 100.6 H MCH 32.5 MCHC 32.3 RDW 21.8 H Plt Count 127 L MPV 10.6 Absolute Nucleated RBC 0.030 H Nucleated RBC % (auto) 0.7 H PT INR Sodium Potassium Chloride Carbon Dioxide Anion Gap BUN Creatinine Estim Creat Clear Calc Estimated GFR Random Glucose Calcium Magnesium Total Bilirubin AST ALT Alkaline Phosphatase B-Natriuretic Peptide Total Protein Albumin Stool Occult Blood NEGATIVE Blood Type O Positive Antibody Screen NEGATIVE HERNAN, Polyspecific Positive HERNAN Work-up Crossmatch See Detail Crossmatch ([facility]) See Detail 01/04/21 01/05/21 01/05/21 18:54 06:46 06:46 WBC RBC Hgb Hct MCV MCH MCHC RDW Plt Count MPV Absolute Nucleated RBC Nucleated RBC % (auto) PT 26.2 H INR 2.3 H D Sodium 145 Potassium 3.5 Chloride 101 Carbon Dioxide 36 H Anion Gap 12 BUN 14 Creatinine 0.70 Estim Creat Clear Calc 61.2 Estimated GFR > 60 Random Glucose 98 Calcium 8.9 Magnesium 1.5 L Total Bilirubin 1.0 AST 17 D ALT 11 Alkaline Phosphatase 61 B-Natriuretic Peptide 271 H Total Protein 6.7 Albumin 3.6 Stool Occult Blood Blood Type Antibody Screen HERNAN, Polyspecific Positive HERNAN Work-up Crossmatch Crossmatch ([facility]) 01/05/21 01/05/21 06:46 06:46 WBC 3.8 L RBC 2.99 L Hgb 10.2 L Hct 30.1 L MCV 100.7 H MCH 34.1 H MCHC 33.9 RDW 21.7 H Plt Count 130 L MPV 10.3 Absolute Nucleated RBC 0.000 Nucleated RBC % (auto) 0.0 PT INR Sodium Potassium Chloride Carbon Dioxide Anion Gap BUN Creatinine Estim Creat Clear Calc Estimated GFR Random Glucose Calcium Magnesium Total Bilirubin AST ALT Alkaline Phosphatase B-Natriuretic Peptide Total Protein Albumin Stool Occult Blood Blood Type Antibody Screen HERNAN, Polyspecific NEGATIVE Positive HERNAN Work-up TNP Crossmatch Crossmatch ([facility]) Imaging Radiologist's impression: Impressions Abdomen Ultrasound 01/04/21 08:45 IMPRESSION: There is mild splenomegaly. There is an equivocally coarsened appearance of the liver echotexture which is likely secondary to technical factors. No definite evidence of cirrhosis. Cholelithiasis. Bilateral simple renal cysts and a 3 mm nonobstructing calculus at the lower pole the right kidney. Progress Note: A&P Assessment and plan (1) CHF exacerbation: Status: Acute Assessment and Plan: CHF exacerbation which appears to be doing well since diuresis and transfusion. Continue to maintain hematocrit above 30. Need for diagnosis anemia as vital to prevent recurrent anemia and recurrent hospitalization related to CHF. Agree with p.o. Lasix transition. Strict intake and output chart needs to be pursued. CHF education needs to be provided. High likelihood of underlying ischemia as well as progressive aortic stenosis. Outpatient workup will be pursued for the same. Good blood pressure control should be pursued. Currently on amlodipine therapy. Blood pressure better optimized. Would add Lopressor 25 mg b.i.d. to her regimen as well. Consider addition of Aldactone 12.5 mg to her regimen as well. (2) Persistent atrial fibrillation: Status: Acute Assessment and Plan: Persistent atrial fibrillation. Currently rate control. Start metoprolol as above. Also continue warfarin therapy with target INR between 2 and 3. (3) Nonrheumatic aortic valve stenosis: Status: Acute Assessment and Plan: Aortic stenosis which appears to be moderate to moderately severe. Follow-up echocardiogram as outpatient. Will follow as outpatient. Will plan to sign off. Will schedule follow-up patient stress test as well as repeat echocardiogram and follow up in the clinic with . Thank you for allowing me to partake in the care Fall Risk Details Current Medications: Current Medications Acetaminophen (Acetaminophen 325 Mg Tablet) 650 mg PO Q6H PRN PRN Reason: Pain, Mild (Pain Scale 1-3) Last Admin: 01/04/21 21:35 Dose: 650 mg Documented by: Amlodipine Besylate (Amlodipine Besylate 10 Mg Tablet) 10 mg PO DAILY [facility] [place]; Protocol Last Admin: 01/05/21 09:41 Dose: 10 mg Documented by: Bisacodyl (Bisacodyl 5 Mg Tablet.) 10 mg PO DAILY [facility] Folic Acid (Folic Acid 1 Mg Tablet) 1 mg PO DAILY [facility] [place] Last Admin: 01/05/21 09:41 Dose: 1 mg Documented by: Furosemide (Furosemide 40 Mg Tablet) 40 mg PO BID@0900,1800 [facility] [place]; Protocol Last Admin: 01/05/21 09:41 Dose: 40 mg Documented by: Ceftriaxone Sodium 1 gm/ (Sodium Chloride) 50 mls @ 100 mls/hr IV Q24H [facility] Last Infusion: 01/05/21 07:37 Dose: Infused Documented by: Nystatin (Nystatin Powder 15 Gm Bottle) 1 appl TOPICAL BID [facility]; Protocol Last Admin: 01/05/21 09:51 Dose: 1 appl Documented by: Ondansetron HCl (Ondansetron Hcl 4 Mg/2 Ml Vial) 4 mg IVPUSH Q8H PRN PRN Reason: Nausea and Vomiting Pharmacy Consult (Consult Rx Perform Med Rec) 1 each MISCELLANE ONCE PRN PRN Reason: Consult order Polyethylene Glycol/Electrolytes (Peg 3350/Na Sulf,Bicarb,Cl/Kcl 4,000 Ml Soln.Recon) 4,000 ml PO ONCE ONE Stop: 01/05/21 13:01 Sertraline HCl (Sertraline Hcl 50 Mg Tablet) 50 mg PO DAILY [facility] Last Admin: 01/05/21 09:41 Dose: 50 mg Documented by: Sodium Chloride (0.9 % Sodium Chloride Flush 3 Ml Syringe) 3 ml IVFLUSH QSHIFT [facility] Last Admin: 01/05/21 09:42 Dose: 3 ml Documented by: Time Spent With Patient Time: Total time spent is greater than 50% in coordination of care (as documented) at patient's floor/unit and/or counseling patient: Time with patient: 25 - 35 minutes Progress Note: Quality Stroke Does the patient have a stroke diagnosis?: No Procedures Date of Service Date of Service: 01/05/21
--- NOTE | 2021-01-05 11:59 | HO.PM.IMPN ---
Subjective Subjective Date of Service: 01/05/21 Interval History: Breathing improved Tolerated transfusion yesterday REYES resolved Gets occasional L arm discomfort and chest discomfort with activity Review of Systems Review of Systems: Yes all other systems are reviewed and are negative Physical Exam Vital Signs: Vital Signs: Last Vital Signs Temp 98.2 F 01/05/21 11:44 Pulse 73 01/05/21 11:44 Resp 19 01/05/21 11:44 BP 160/82 H 01/05/21 11:44 Pulse Ox 96 01/05/21 11:44 Body Mass Index 35.7 Gen: in no acute distress HEENT: sclera anicteric, moist mucus membranes Neck: supple Lungs: clear to auscultation bilaterally Heart: irregularly irregular, 2/6 systolic <> murmur at base Abd: soft, non-tender, non-distended Ext: 1+ bilateral edema of legs Skin: warm/well-perfused Neuro: alert and oriented x3, no focal findings Psych: appropriate affect Objective Data Active Medications Acetaminophen (Acetaminophen 325 Mg Tablet) 650 mg PO Q6H PRN PRN Reason: Pain, Mild (Pain Scale 1-3) Last Admin: 01/04/21 21:35 Dose: 650 mg Documented by: MAGDALENO Amlodipine Besylate (Amlodipine Besylate 10 Mg Tablet) 10 mg PO DAILY [facility]; Protocol Last Admin: 01/05/21 09:41 Dose: 10 mg Documented by: BRAD Bisacodyl (Bisacodyl 5 Mg Tablet.) 10 mg PO DAILY [facility] Folic Acid (Folic Acid 1 Mg Tablet) 1 mg PO DAILY [facility] Last Admin: 01/05/21 09:41 Dose: 1 mg Documented by: BRAD Furosemide (Furosemide 40 Mg Tablet) 40 mg PO BID@0900,1800 [facility]; Protocol Last Admin: 01/05/21 09:41 Dose: 40 mg Documented by: BRAD Ceftriaxone Sodium 1 gm/ (Sodium Chloride) 50 mls @ 100 mls/hr IV Q24H [facility] Last Infusion: 01/05/21 07:37 Dose: 0 mls/hr Documented by: BRAD Nystatin (Nystatin Powder 15 Gm Bottle) 1 appl TOPICAL BID [facility]; Protocol Last Admin: 01/05/21 09:51 Dose: 1 appl Documented by: BRAD Ondansetron HCl (Ondansetron Hcl 4 Mg/2 Ml Vial) 4 mg IVPUSH Q8H PRN PRN Reason: Nausea and Vomiting Pharmacy Consult (Consult Rx Perform Med Rec) 1 each MISCELLANE ONCE PRN PRN Reason: Consult order Polyethylene Glycol/Electrolytes (Peg 3350/Na Sulf,Bicarb,Cl/Kcl 4,000 Ml Soln.Recon) 4,000 ml PO ONCE ONE Stop: 01/05/21 13:01 Sertraline HCl (Sertraline Hcl 50 Mg Tablet) 50 mg PO DAILY [facility] Last Admin: 01/05/21 09:41 Dose: 50 mg Documented by: BRAD Sodium Chloride (0.9 % Sodium Chloride Flush 3 Ml Syringe) 3 ml IVFLUSH QSHIFT [facility] Last Admin: 01/05/21 09:42 Dose: 3 ml Documented by: BRAD Labs CBC & Chem 7: 01/05/21 06:46 01/05/21 06:46 Labs: Laboratory Results - last 24 hr 01/03/21 01/04/21 01/04/21 07:10 14:46 18:54 MCV 100.6 H MCH 32.5 MCHC 32.3 RDW 21.8 H Plt Count 127 L MPV 10.6 Absolute Nucleated RBC 0.030 H Nucleated RBC % (auto) 0.7 H PT INR Anion Gap Estim Creat Clear Calc Estimated GFR Random Glucose Calcium Magnesium Total Bilirubin AST ALT Alkaline Phosphatase B-Natriuretic Peptide Total Protein Albumin Stool Occult Blood NEGATIVE Blood Type O Positive Antibody Screen NEGATIVE HERNAN, Polyspecific Positive HERNAN Work-up Crossmatch See Detail Crossmatch ([facility]) See Detail 01/04/21 01/05/21 01/05/21 18:54 06:46 06:46 MCV MCH MCHC RDW Plt Count MPV Absolute Nucleated RBC Nucleated RBC % (auto) PT 26.2 H INR 2.3 H D Anion Gap 12 Estim Creat Clear Calc 61.2 Estimated GFR > 60 Random Glucose 98 Calcium 8.9 Magnesium 1.5 L Total Bilirubin 1.0 AST 17 D ALT 11 Alkaline Phosphatase 61 B-Natriuretic Peptide 271 H Total Protein 6.7 Albumin 3.6 Stool Occult Blood Blood Type Antibody Screen HERNAN, Polyspecific Positive HERNAN Work-up Crossmatch Crossmatch ([facility]) 01/05/21 01/05/21 06:46 06:46 MCV 100.7 H MCH 34.1 H MCHC 33.9 RDW 21.7 H Plt Count 130 L MPV 10.3 Absolute Nucleated RBC 0.000 Nucleated RBC % (auto) 0.0 PT INR Anion Gap Estim Creat Clear Calc Estimated GFR Random Glucose Calcium Magnesium Total Bilirubin AST ALT Alkaline Phosphatase B-Natriuretic Peptide Total Protein Albumin Stool Occult Blood Blood Type Antibody Screen HERNAN, Polyspecific NEGATIVE Positive HERNAN Work-up TNP Crossmatch Crossmatch ([facility]) Microbiology Microbiology Results: Microbiology 01/01/21 20:25 Urine Culture - Final Urine clean catch - Urine gamboa top Klebsiella pneumoniae Assessment and Plan (1) UTI (urinary tract infection): Status: Acute (2) Acute on chronic anemia: Status: Acute (3) CHF exacerbation: Status: Acute Assessment and Plan: hospital d#5 80yo F with HFpEF, AF on warfarin, hx CVA, HTN, HLD, obesity, RA presented with dyspnea + admitted for CHF exacerbation # acute/chronic HFpEF - negative 4.4L, appears close to euvolemic, change IV to PO furosemide - repeat TTE pending - BP control as be;pw # mod-sev aortic stenosis - outpt Cardiology f/u # chest discomfort - outpt ischemic workup per Cardiology # HTN - continue amlodipine, add metoprolol tartrate + spironolactone # hypoMg - replete, recheck in am # AF - metoprolol - resume warfarin, INR 2.3 today # macrocytic anemia # pancytopenia - transfused 1u pRBCs yesterday - FOBT negative - 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 pt has hx monoclonal IgM gammopathy + has retroperitoneal adenopathy. has declined LN bx in past # Klebsiella pneumoniae UTI - R to ampicillin + SMX/TMP - d#05/21 ceftriaxone # fatty liver disease - Fibrosure pending, outpt GI f/u # mood disorder - sertraline # dispo - PT consult: anticipate home with VNA in next 1-2d Quality Stroke Does the patient have a stroke diagnosis?: No VTE Prior VTE?: No VTE Risk Level:: Medical - moderate - high VTE Device Contraindication: Treatment Not Indicated VTE Drug Contraindication: N/A - Med Ordered
[2021-01-05] MEDS: Metoprolol Tartrate 25 MG TABLET PO ×2 (15:15→22:05)
[2021-01-05] MEDS: PEG 3350/Na Sulf,Bicarb,Cl/KCL 4,000 ML SOLN.RECON 4000 ML PO (15:15)
--- NOTE | 2021-01-05 16:49 | PM.HEMONCCN ---
Subjective - Subjective Chief complaint: Follow-up for: Anemia. Patient: known to practice within the last 3 years Consult date: 01/05/21 Requesting Physician: Naseem Primary Care Provider: Riccardo Page MD Medical Summary: DIAGNOSIS: ANEMIA. HPI - Consult Narrative Reason for consult: Consult for: Anemia. Narrative: Yakelin Abreu is a 80 year old lady, who presents to the hospital with complaints of worsening shortness of breath. Patient reports that she has been having shortness of breath for the past several days, worsened over the last 2 days, has no cough or phlegm production, has orthopnea PND, lower extremity edema for the same amount of time. She is short of breath with minimal activity/exertion. She has no fever or chills, no chest pain, no palpitations, no abdominal pain nausea or vomiting, no diarrhea constipation, no urinary symptoms. No numbness tingling or weakness. On arrival to the ED patient hemodynamically stable with no significant abnormal vitals except a slightly elevated blood pressure Labs are significant for leukopenia of 3.3, hemoglobin of 8.5 that dropped from 10.9 in October, platelets of 111. BNP of 746, troponin of 9.3, UA that is positive for nitrites, leukocyte Estrace, and some WBC. Chest x-ray shows increased interstitial markings Venous duplex of bilateral lower extremity shows no DVT with the caveats of suboptimal evaluation of come past ability in the distal femoral veins. Patient was admitted for management of CHF. Past medical history of: Diastolic heart failure with preserved ejection fraction. Anxiety and depression. AFib, CVA, HTN, HLD, Rheumatoid arthritis, Type 2 diabetes H/O Thrombocytopenia. She has severe anemia and leucopenia and thrombocytopenia. Now with no sign of bleedintg. Her MCV is elevated as is the LDG. She was recently ;found to have new retroperitoneal adenopathy. 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 She is hemodynamically stable at present. Two past bone marrow biopsies have not shown a neoplasm. Review of Systems - Constitutional Reports system reviewed and no additional complaints, except as documented, Reports lack of energy, Reports weakness, Reports weight loss - Eyes Reports system reviewed and no additional complaints, except as documented, Denies blurry vision - ENT Reports system reviewed and no additional complaints, except as documented - Cardiovascular Reports system reviewed and no additional complaints, except as documented, Denies chest pain at rest - Respiratory Reports no additional respiratory complaints, Denies change in phlegm color - Gastrointestinal Reports system reviewed and no additional complaints, except as documented, Reports nausea, Denies diarrhea, Denies vomiting - Genitourinary Reports no additional female genitourinary complaints, Denies abnormal periods - Musculoskeletal Reports system reviewed and no additional complaints, except as documented, Denies body aches - Integumentary/Breasts Skin/Breast: Reports no additional skin complaints, Denies bleeding lesions - Neurologic Reports system reviewed and no additional complaints, except as documented, Reports hearing normal, Reports weakness, Denies abnormal speech, Denies headache(s), Denies seizure-like activity - Psychiatric Reports system reviewed and no additional complaints, except as documented - Endocrine Reports no additional endocrine complaints - Hematologic/Lymphatic Reports system reviewed and no additional complaints, except as documented - Allergic/Immunologic Reports system reviewed and no additional complaints, except as documented Oncology Screenings - ECOG Performance Status ECOG Performance Status: 2 [facility] Medical History: Medical History (Last Reviewed 01/05/21 @ 08:03 by Renee Lorenzo, PT) (HFpEF) heart failure with preserved ejection fraction Acute pyelonephritis Anxiety and depression Atrial fibrillation CHF exacerbation Chronic anticoagulation CVA (cerebral vascular accident) Hypercholesterolemia Hypertension Lumbar vertebral fracture Obesity (BMI 30-39.9) Pneumonia Rheumatoid arthritis Sepsis TIA (transient ischemic attack) Type 2 diabetes mellitus with hyperglycemia Uterine cancer Functional capacity: uses cane/walker Patient : No Family History: Family History (Last Reviewed 01/02/21 @ 06:11 by Josh Millard MD) Father Diabetes CAD (coronary artery disease) Mother Diabetes Hypertension Perforated ulcer Sister Diabetes Surgical History: Surgical History (Last Reviewed 01/05/21 @ 08:03 by Renee Lorenzo, PT) History of appendectomy History of colonoscopy History of left knee replacement History of right knee joint replacement S/P ANTONIO-BSO Social History: Social History (Last Reviewed 01/02/21 @ 06:11 by Josh Millard MD) Living Situation History: Household Members: Spouse Housing: House Do you presently have visiting nurse or other home services: Yes Alcohol History: Alcohol intake: never Tobacco History: Patient Tobacco Use Status: Never used Tobacco e-Cigarette/Vaping Use: Never Used Second Hand Smoke Exposure: No Advance Directives: Advance Directives Date on File: 05/17/20 Occupation Assessmet: service: No Current occupational status: retired Home Medications and Allergies Current Medications: Current Medications Acetaminophen (Acetaminophen 325 Mg Tablet) 650 mg PO Q6H PRN PRN Reason: Pain, Mild (Pain Scale 1-3) Last Admin: 01/04/21 21:35 Dose: 650 mg Documented by: Amlodipine Besylate (Amlodipine Besylate 10 Mg Tablet) 10 mg PO DAILY [facility]; Protocol Last Admin: 01/05/21 09:41 Dose: 10 mg Documented by: Bisacodyl (Bisacodyl 5 Mg Tablet.Dr) 10 mg PO DAILY [facility] Folic Acid (Folic Acid 1 Mg Tablet) 1 mg PO DAILY [facility] Last Admin: 01/05/21 09:41 Dose: 1 mg Documented by: Furosemide (Furosemide 40 Mg Tablet) 40 mg PO BID@0900,1800 [facility]; Protocol Last Admin: 01/05/21 09:41 Dose: 40 mg Documented by: Ceftriaxone Sodium 1 gm/ (Sodium Chloride) 50 mls @ 100 mls/hr IV Q24H [facility] Last Infusion: 01/05/21 07:37 Dose: Infused Documented by: Metoprolol Tartrate (Metoprolol Tartrate 25 Mg Tablet) 25 mg PO BID [facility]; Protocol Last Admin: 01/05/21 15:15 Dose: 25 mg Documented by: Nystatin (Nystatin Powder 15 Gm Bottle) 1 appl TOPICAL BID [facility]; Protocol Last Admin: 01/05/21 09:51 Dose: 1 appl Documented by: Ondansetron HCl (Ondansetron Hcl 4 Mg/2 Ml Vial) 4 mg IVPUSH Q8H PRN PRN Reason: Nausea and Vomiting Pharmacy Consult (Consult Rx Perform Med Rec) 1 each MISCELLANE ONCE PRN PRN Reason: Consult order Sertraline HCl (Sertraline Hcl 50 Mg Tablet) 50 mg PO DAILY [facility] Last Admin: 01/05/21 09:41 Dose: 50 mg Documented by: Sodium Chloride (0.9 % Sodium Chloride Flush 3 Ml Syringe) 3 ml IVFLUSH QSHIFT [facility] Last Admin: 01/05/21 09:42 Dose: 3 ml Documented by: Spironolactone (Spironolactone 25 Mg Tablet) 12.5 mg PO DAILY [facility]; Protocol Warfarin Sodium (Warfarin Sodium 0.5 Mg Halftab) 1.5 mg PO DAILY@1800 [facility] Home Medications Medication Instructions Recorded Confirmed Type folic acid 1 mg tablet 1 mg PO DAILY 05/18/20 01/02/21 History warfarin 1 mg tablet 2 mg PO DAILY 09/01/20 01/02/21 History furosemide 40 mg tablet 1 tab PO QAM 01/01/21 01/02/21 History acetaminophen 500 mg tablet 500 mg PO BEDTIME 01/02/21 01/02/21 History cholecalciferol (vitamin D3) 1,250 1,250 mcg PO PICKARD 01/02/21 01/02/21 History mcg (50,000 unit) capsule Allergies Allergy/AdvReac Type Severity Reaction Status Date / Time shellfish derived Allergy Unknown itchy Verified 11/07/20 15:11 procaine [From Novocain] AdvReac Unknown makes Verified 11/07/20 15:11 patient itchy,puffy Physical Exam Vital signs: Vital Signs Temp 98.3 F 01/05/21 15:51 Pulse 65 01/05/21 15:51 Resp 18 01/05/21 15:51 BP 152/73 H 01/05/21 15:51 Pulse Ox 93 01/05/21 15:51 Intake & Output 01/04/21 01/05/21 01/05/21 18:59 06:59 18:59 Intake Total 830 / 1350 520 / 1350 340 / 340 Output Total 200 / 1300 1100 / 1300 2200 / 2200 Balance 630 / 50 -580 / 50 -1860 / -1860 Urine Output (Average ml/kg/hr) 0.19 1.10 2.21 Intake: Intake, Oral Amount 480 / 1000 520 / 1000 240 / 240 Intake (Blood Product) Amount 350 / 350 Red Blood Cells (E0336) Unit 350 / 350 [id number] Intake, IV Amount 100 / 100 Magnesium Sulfate/H2O 2 gm In 50 / 50 50 ml @ 25 mls/hr IV ONCE ONE Rx#:[id number] cefTRIAXone sodium 1 gm In 0.9 50 / 50 % Sodium Chloride 50 ml @ 100 mls/hr IV Q24H [facility] Rx#: [id number] Output: Output, Urine Amount 200 / 1300 1100 / 1300 2200 / 2200 Other: Breakfast % Eaten 100% Lunch % Eaten 100% Number of Unmeasured Voids 3 Urine Bedside Commode Bedside Commode Bedside Commode Urine Color Yellow Yellow Last Bowel Movement 01/04/21 Weight 83 kg Weight in Grams 28789 Weight 83 kg - Constitutional Present: moderate distress - Routine HEENT Exam Head: Present: normal inspection, normocephalic ENT: Present: mucous membranes moist - Routine Neck Exam Present: supple. Absent: JVD - Routine Cardiovascular Exam Cardiovascular: Present: RRR, S1, S2 - Routine Abdominal Exam Present: normal bowel sounds, soft, nontender Hem/Onc Consult Result - Labs CBC & Chem 7: 01/05/21 06:46 01/05/21 06:46 Labs: Short CBC 01/04/21 01/05/21 Range/Units 18:54 06:46 WBC 4.6 L 3.8 L (4.8-10.8) X10*3/uL Hgb 10.0 L D 10.2 L (12.0-16.0) g/dl Hct 31.0 L D 30.1 L (37.0-47.0) % Plt Count 127 L 130 L (160-400) X10*3/uL BMP 01/05/21 06:46 Sodium 145 Potassium 3.5 Chloride 101 Carbon Dioxide 36 H BUN 14 Creatinine 0.70 Calcium 8.9 Liver Function 01/05/21 Range/Units 06:46 Total Bilirubin 1.0 (0.0-1.0) mg/dL AST 17 D (5-31) U/L ALT 11 (0-31) U/L Alkaline Phosphatase 61 (39-117) U/L Albumin 3.6 (3.5-5.0) g/dL Assessment and Plan Patient Active problem list reviewed?: Yes (1) Pancytopenia Status: Acute Assessment and plan: 80 year-old lady, with history of Anemia of Chronic Disease, related to the Rheumatoid Arthritis, i.e. underlying collagen vascular disorder. In addition, she has a history of Thrombocytopenia. This is most likely related to the Remicade. Her hemoglobin was holding stable, as an outpatient. 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 CT scan of the abdomen from July 15: 1. No CT evidence of acute abnormality within the abdomen or pelvis. 2. New retroperitoneal lymphadenopathy. 3. Nonobstructing right renal calculi. 4. Other chronic and nonacute findings as above. I had discussed the findings with the patient. Gave her the option of proceeding me the lymph node biopsy. The patient preferred to follow these. She decided she would have another scan in few months time, simply for monitoring. She now presents with significant anemia. She has been evaluated by GI. PLAN: The plan is to proceed with further GI evaluation. She will have upper endoscopy and colonoscopy later today. Further plan will be made in light of the results. In the meantime she has received a couple of units of blood. She is to have repeat CT scan in 3 months time, follow-up on her adenopathy. Thank you, CC: Dr. Murray. Dr. Page. - Time Spent With Patient Time Spent with Patient (in minutes): 30
[2021-01-05] MEDS: Warfarin Sodium 0.5 MG HALFTAB 1.5 MG PO (18:20)
[2021-01-05] MEDS: Acetaminophen 325 MG TABLET 650 MG PO (22:05)
[2021-01-06] VITALS (9 sets, daily range): BP systolic 111–145; BP diastolic 60–80; PULSE 60–78; RESP 15–18; TEMP 36.5–37.1; O2SAT 91–95; BMI 36.5
[2021-01-06] MEDS: 0.9 % Sodium Chloride Flush 3 ML SYRINGE IVFLUSH ×4 (00:51→20:18)
[2021-01-06] MEDS: cefTRIAXone sodium 1 GM in 0.9 % Sodium Chloride 50 ML IV (06:32)
[2021-01-06 07:03] LABS: Anion Gap 13 (12-20); Blood Urea Nitrogen 17 mg/dL (9-16); Carbon Dioxide 33 mmol/L (22-29); Chloride 99 mmol/L (96-108); Creatinine Clr Calc Pharmacy 54.2; Estimated Glomerular Filt Rate > 60; Glucose Random 100 mg/dL (60-115); Magnesium 1.9 mg/dL (1.6-2.6); Potassium 3.6 mmol/L (3.3-5.1); Sodium 141 mmol/L (135-145)
[2021-01-06 07:11] LABS: B Type Natriuretic Peptide 260 pg/mL (<100)
--- NOTE | 2021-01-06 08:42 | MHC.CM.PN ---
at this time dc plan is home c w[facility]ec and vna. cm to cont. to follow.
[2021-01-06 08:43] LABS: INTERNATIONAL NORM RATIO 1.8 (0.9-1.1); Prothrombin Time 20.4 SEC (9.9-13.0)
[2021-01-06] MEDS: Spironolactone 25 MG TABLET 12.5 MG PO (08:53)
[2021-01-06] MEDS: Sertraline HCL 50 MG TABLET PO (08:54)
[2021-01-06] MEDS: Folic Acid 1 MG TABLET PO (08:54)
[2021-01-06] MEDS: Furosemide 40 MG/4 ML VIAL IVPUSH ×2 (08:54→18:33)
[2021-01-06] MEDS: Metoprolol Tartrate 25 MG TABLET PO ×2 (08:54→20:18)
[2021-01-06] MEDS: amLODIPine Besylate 10 MG TABLET PO (08:54)
[2021-01-06] MEDS: Nystatin Powder 15 GM BOTTLE 1 APPL TOPICAL ×2 (08:55→20:19)
--- NOTE | 2021-01-06 10:46 | HO.PM.IMPN ---
Subjective Subjective Date of Service: 01/06/21 Interval History: EGD/C-scope held due to TTE finding of plethoric IVC suggesting high RA pressures; pt placed back on IV furosemide pt states dyspnea improved but still gets dyspneic with any exertion Review of Systems Review of Systems: Yes all other systems are reviewed and are negative Physical Exam Vital Signs: Vital Signs: Last Vital Signs Temp 98.0 F 01/06/21 07:16 Pulse 78 01/06/21 10:28 Resp 18 01/06/21 07:16 BP 145/69 H 01/06/21 10:28 Pulse Ox 95 01/06/21 07:16 Body Mass Index 36.5 Gen: in no acute distress HEENT: sclera anicteric, moist mucus membranes Neck: supple Lungs: clear to auscultation bilaterally Heart: irregularly irregular, 2/6 systolic <> murmur at base Abd: soft, non-tender, non-distended Ext: 1+ bilateral edema of legs Skin: warm/well-perfused Neuro: alert and oriented x3, no focal findings Psych: appropriate affect Objective Data Active Medications Acetaminophen (Acetaminophen 325 Mg Tablet) 650 mg PO Q6H PRN PRN Reason: Pain, Mild (Pain Scale 1-3) Last Admin: 01/05/21 22:05 Dose: 650 mg Documented by: TANNA Amlodipine Besylate (Amlodipine Besylate 10 Mg Tablet) 10 mg PO DAILY [facility]; Protocol Last Admin: 01/06/21 08:54 Dose: 10 mg Documented by: JASBIR Bisacodyl (Bisacodyl 5 Mg Tablet.) 10 mg PO DAILY [facility] Folic Acid (Folic Acid 1 Mg Tablet) 1 mg PO DAILY [facility] Last Admin: 01/06/21 08:54 Dose: 1 mg Documented by: JASBIR Furosemide (Furosemide 40 Mg/4 Ml Vial) 40 mg IVPUSH BID@0900,1800 [facility]; Protocol Last Admin: 01/06/21 08:54 Dose: 40 mg Documented by: JASBIR Ceftriaxone Sodium 1 gm/ (Sodium Chloride) 50 mls @ 100 mls/hr IV Q24H [facility] Last Infusion: 01/06/21 07:40 Dose: 0 mls/hr Documented by: JASBIR Metoprolol Tartrate (Metoprolol Tartrate 25 Mg Tablet) 25 mg PO BID [facility]; Protocol Last Admin: 01/06/21 08:54 Dose: 25 mg Documented by: JASBIR Nystatin (Nystatin Powder 15 Gm Bottle) 1 appl TOPICAL BID [facility]; Protocol Last Admin: 01/06/21 08:55 Dose: 1 appl Documented by: JASBIR Ondansetron HCl (Ondansetron Hcl 4 Mg/2 Ml Vial) 4 mg IVPUSH Q8H PRN PRN Reason: Nausea and Vomiting Pharmacy Consult (Consult Rx Perform Med Rec) 1 each MISCELLANE ONCE PRN PRN Reason: Consult order Sertraline HCl (Sertraline Hcl 50 Mg Tablet) 50 mg PO DAILY [facility] Last Admin: 01/06/21 08:54 Dose: 50 mg Documented by: JASBIR Sodium Chloride (0.9 % Sodium Chloride Flush 3 Ml Syringe) 3 ml IVFLUSH QSHIFT [facility] Last Admin: 01/06/21 08:54 Dose: 3 ml Documented by: JASBIR Spironolactone (Spironolactone 25 Mg Tablet) 12.5 mg PO DAILY [facility]; Protocol Last Admin: 01/06/21 08:53 Dose: 12.5 mg Documented by: JASBIR Warfarin Sodium (Warfarin Sodium 0.5 Mg Halftab) 1.5 mg PO DAILY@1800 [facility] Last Admin: 01/05/21 18:20 Dose: 1.5 mg Documented by: BRAD Labs CBC & Chem 7: 01/05/21 06:46 01/06/21 06:18 Labs: Laboratory Results - last 24 hr 01/03/21 01/03/21 01/06/21 07:10 07:10 06:18 Smear Path Review PT INR Anion Gap 13 Estim Creat Clear Calc 54.2 Estimated GFR > 60 Random Glucose 100 Calcium 9.0 Magnesium 1.9 B-Natriuretic Peptide Crossmatch See Detail Crossmatch ([facility]) See Detail 01/06/21 01/06/21 01/06/21 06:18 08:18 08:18 Smear Path Review PT 20.4 H Cancelled INR 1.8 H Cancelled Anion Gap Estim Creat Clear Calc Estimated GFR Random Glucose Calcium Magnesium B-Natriuretic Peptide 260 H Crossmatch Crossmatch ([facility]) Echocardiogram Echocardiogram Results: TTE 01/05/21 1. Normal LV systolic function with mild LVH with elevated? ? filling pressures? 2.? At least moderately dilated left atrium? 3.? Severe aortic stenosis ? 4. Moderately elevated right ventricular systolic pressure with? severely elevated right atrial pressures ? 5.? No gross pericardial effusion? Assessment and Plan (1) UTI (urinary tract infection): Status: Acute (2) Acute on chronic anemia: Status: Acute (3) CHF exacerbation: Status: Acute Assessment and Plan: hospital d#6 80yo F with HFpEF, AF on warfarin, hx CVA, HTN, HLD, obesity, RA presented with dyspnea + admitted for CHF exacerbation # acute/chronic HFpEF - negative 4.9L, continue IV furosemide, monitor BNP/I+O and electrolytes - BP control as below # severe aortic stenosis # chest discomfort - outpatient Cardiology workup # HTN - continue amlodipine, added metoprolol tartrate + spironolactone yesterday # hypoMg - repleted # chronic AF - metoprolol - INR 1.8, increase warfarin back to home dose # macrocytic anemia # pancytopenia - transfused 1u pRBCs 01/04/21 - FOBT negative - GI evaluation with EGD/C-scope on hold pending further diuresis - 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 pt has hx monoclonal IgM gammopathy + has retroperitoneal adenopathy. has declined LN bx in past # Klebsiella pneumoniae UTI - R to ampicillin + SMX/TMP - d#06/20 ceftriaxone # fatty liver disease - Fibrosure pending, outpt GI f/u # mood disorder - sertraline # dispo - PT consult: anticipate home with VNA in next 1-2d Quality Stroke Does the patient have a stroke diagnosis?: No VTE Prior VTE?: No VTE Risk Level:: Medical - moderate - high VTE Device Contraindication: Treatment Not Indicated VTE Drug Contraindication: N/A - Med Ordered
--- NOTE | 2021-01-06 12:42 | P.PNCA_ITS ---
Subjective Subjective Date of Service: 01/06/21 Principal diagnosis: CHF,AF Interval history: Patient says she is breathing easier. No chest discomfort or arm discomfort. Hematocrit has remained stable. Echo from yesterday shows progressive aortic stenosis to severe range with elevated right atrial pressures. Review of Systems Review of Systems Yes all other systems are reviewed and are negative Physical Exam Vital Signs: Last Vital Signs Temp 98.8 F 01/06/21 11:13 Pulse 65 01/06/21 11:13 Resp 18 01/06/21 11:13 BP 111/63 01/06/21 11:13 Pulse Ox 94 01/06/21 11:13 Body Mass Index 36.5 Const General: cooperative, comfortable, alert and awake Nutritional Appearance: other (Frail elderly woman) Orientation/consciousness: patient oriented x3 Neck Neck: Yes trachea midline, Yes supple and Yes JVD Resp Effort & Inspection: normal respiratory effort Auscultation: no crackles, no rales, no wheezes and diminished lung sounds Cardio Rhythm: abnormal rhythm irregularly irregular Heart sounds: S1 normal heart sound present and Murmur heart sound present systolic late, decrescendo, crescendo and soft GI Auscultation: normal bowel sounds Neuro General: patient oriented x3 and no focal motor deficits Extrem General: Yes no clubbing, cyanosis or edema Objective Labs and Meds Result diagrams: 01/05/21 06:46 01/06/21 06:18 Lab results: Laboratory Results - last 24 hr 01/03/21 01/03/21 01/06/21 07:10 07:10 06:18 Smear Path Review PT INR Sodium 141 Potassium 3.6 Chloride 99 Carbon Dioxide 33 H Anion Gap 13 BUN 17 H Creatinine 0.80 Estim Creat Clear Calc 54.2 Estimated GFR > 60 Random Glucose 100 Calcium 9.0 Magnesium 1.9 B-Natriuretic Peptide Crossmatch See Detail Crossmatch (AHG) See Detail 01/06/21 01/06/21 01/06/21 06:18 08:18 08:18 Smear Path Review PT 20.4 H Cancelled INR 1.8 H Cancelled Sodium Potassium Chloride Carbon Dioxide Anion Gap BUN Creatinine Estim Creat Clear Calc Estimated GFR Random Glucose Calcium Magnesium B-Natriuretic Peptide 260 H Crossmatch Crossmatch (AHG) Progress Note: A&P Assessment and plan (1) CHF exacerbation: Status: Acute Assessment and Plan: Prior history of congestive heart failure and now symptoms suggestive angina as well as worsening heart failure in setting of anemia. Clinically appears to be doing better. Continue IV diuresis for 1 more day. Continue to trend BMP and BNP. Strict intake and output chart. She now is progressive aortic stenosis, contributing to her heart failure symptoms and possibly also causing angina in the setting of anemia. We discussed briefly about valve replacement, she was not very enthusiastic all interested in it. Will think about it. Continue diuretic regimen. Continue to trend BMP and replace electrolytes as needed. (2) Persistent atrial fibrillation: Status: Acute Assessment and Plan: Patient with persistent atrial fibrillation, rate controlled. Admitted with severe anemia question GI bleeding. However due to above condition, her endoscopies currently postpone. A recommended by GI as outpatient follow-up and workup. I think this is a reasonable option. If GI is okay, may resume warfarin therapy with target INR between 2 and 2.5. Will follow with you Fall Risk Details Current Medications: Current Medications Acetaminophen (Acetaminophen 325 Mg Tablet) 650 mg PO Q6H PRN PRN Reason: Pain, Mild (Pain Scale 1-3) Last Admin: 01/05/21 22:05 Dose: 650 mg Documented by: Amlodipine Besylate (Amlodipine Besylate 10 Mg Tablet) 10 mg PO DAILY [facility]; Protocol Last Admin: 01/06/21 08:54 Dose: 10 mg Documented by: Bisacodyl (Bisacodyl 5 Mg Tablet.) 10 mg PO DAILY [facility] Last Admin: 01/06/21 12:02 Dose: Not Given Documented by: Folic Acid (Folic Acid 1 Mg Tablet) 1 mg PO DAILY [facility] Last Admin: 01/06/21 08:54 Dose: 1 mg Documented by: Furosemide (Furosemide 40 Mg/4 Ml Vial) 40 mg IVPUSH BID@0900,1800 [facility]; Protocol Last Admin: 01/06/21 08:54 Dose: 40 mg Documented by: Ceftriaxone Sodium 1 gm/ (Sodium Chloride) 50 mls @ 100 mls/hr IV Q24H [facility] Last Infusion: 01/06/21 07:40 Dose: Infused Documented by: Metoprolol Tartrate (Metoprolol Tartrate 25 Mg Tablet) 25 mg PO BID [facility]; Protocol Last Admin: 01/06/21 08:54 Dose: 25 mg Documented by: Nystatin (Nystatin Powder 15 Gm Bottle) 1 appl TOPICAL BID [facility]; Protocol Last Admin: 01/06/21 08:55 Dose: 1 appl Documented by: Ondansetron HCl (Ondansetron Hcl 4 Mg/2 Ml Vial) 4 mg IVPUSH Q8H PRN PRN Reason: Nausea and Vomiting Pharmacy Consult (Consult Rx Perform Med Rec) 1 each MISCELLANE ONCE PRN PRN Reason: Consult order Sertraline HCl (Sertraline Hcl 50 Mg Tablet) 50 mg PO DAILY [facility] Last Admin: 01/06/21 08:54 Dose: 50 mg Documented by: Sodium Chloride (0.9 % Sodium Chloride Flush 3 Ml Syringe) 3 ml IVFLUSH QSHIFT [facility] Last Admin: 01/06/21 08:54 Dose: 3 ml Documented by: Spironolactone (Spironolactone 25 Mg Tablet) 12.5 mg PO DAILY [facility]; Protocol Last Admin: 01/06/21 08:53 Dose: 12.5 mg Documented by: Warfarin Sodium (Warfarin Sodium 0.5 Mg Halftab) 1.5 mg PO DAILY@1800 [facility] Last Admin: 01/05/21 18:20 Dose: 1.5 mg Documented by: Time Spent With Patient Time: Total time spent is greater than 50% in coordination of care (as documented) at patient's floor/unit and/or counseling patient: Time with patient: 15 - 24 minutes Progress Note: Quality Stroke Does the patient have a stroke diagnosis?: No Procedures Date of Service Date of Service: 01/06/21
[2021-01-06] MEDS: Acetaminophen 325 MG TABLET 650 MG PO (18:33)
[2021-01-06] MEDS: Warfarin Sodium 0.5 MG HALFTAB 1.5 MG PO (18:33)
[2021-01-07] VITALS (8 sets, daily range): BP systolic 113–148; BP diastolic 61–91; PULSE 52–77; RESP 17–20; TEMP 36.2–37.1; O2SAT 92–94; BMI 36.0
[2021-01-07] MEDS: cefTRIAXone sodium 1 GM in 0.9 % Sodium Chloride 50 ML IV (06:01)
[2021-01-07 06:55] LABS: Anion Gap 13 (12-20); Blood Urea Nitrogen 23 mg/dL (9-16); Calcium 9.3 mg/dL (8.4-10.2); Carbon Dioxide 33 mmol/L (22-29); Chloride 99 mmol/L (96-108); Creatinine Clr Calc Pharmacy 60.6; Estimated Glomerular Filt Rate > 60; Glucose Random 96 mg/dL (60-115); Hematocrit 29.7 % (37.0-47.0); Hemoglobin 10.4 g/dl (12.0-16.0); Magnesium 1.8 mg/dL (1.6-2.6); Mean Corpuscular Hemoglobin 35.9 pg (27.0-33.0); Mean Corpuscular Volume 102.4 fL (80.0-98.0); Mean Platelet Volume 10.3 fL (9.4-12.3); Platelet Count 151 X10*3/uL (160-400); Potassium 3.9 mmol/L (3.3-5.1); Red Cell Distribution Width 20.9 % (11.0-16.0); Sodium 141 mmol/L (135-145); White Blood Count 4.6 X10*3/uL (4.8-10.8)
[2021-01-07 06:58] LABS: B Type Natriuretic Peptide 301 pg/mL (<100)
[2021-01-07] MEDS: bisacodyL 5 MG TABLET.DR 10 MG PO (08:17)
[2021-01-07] MEDS: Metoprolol Tartrate 25 MG TABLET PO ×2 (08:17→19:01)
[2021-01-07] MEDS: amLODIPine Besylate 10 MG TABLET PO (08:17)
[2021-01-07] MEDS: Sertraline HCL 50 MG TABLET PO (08:17)
[2021-01-07] MEDS: Furosemide 40 MG/4 ML VIAL IVPUSH ×2 (08:18→18:59)
[2021-01-07] MEDS: Spironolactone 25 MG TABLET 12.5 MG PO (08:18)
[2021-01-07] MEDS: Cyanocobalamin (Vitamin B-12) 1,000 MCG TABLET 1000 MCG PO (08:18)
[2021-01-07] MEDS: Folic Acid 1 MG TABLET PO (08:18)
[2021-01-07] MEDS: 0.9 % Sodium Chloride Flush 3 ML SYRINGE IVFLUSH ×3 (08:19→23:25)
[2021-01-07] MEDS: Acetaminophen 325 MG TABLET 650 MG PO ×2 (08:22→19:02)
[2021-01-07] MEDS: Nystatin Powder 15 GM BOTTLE 1 APPL TOPICAL ×2 (08:25→19:03)
[2021-01-07 08:44] LABS: INTERNATIONAL NORM RATIO 1.6 (0.9-1.1); Prothrombin Time 18.2 SEC (9.9-13.0)
--- NOTE | 2021-01-07 10:45 | P.PNCA_ITS ---
Subjective Subjective Date of Service: 01/07/21 <JANIS Aguirre - Last Filed: 01/07/21 11:06> 01/07/21 <Scott Sandhu MD - Last Filed: 01/07/21 12:33> Principal diagnosis: CHF,AF <JANIS Aguirre - Last Filed: 01/07/21 11:06> Interval history: Cardiology follow up for CHF, afib. Seen at 0820. Today she reports still having sob when moving and getting up out of bed. She does add that she is Much better than admission but does not quite feel well enough to go home. No chest pains, palpitations, dizziness. Leg edema improved. <JANIS Aguirre - Last Filed: 01/07/21 11:06> Review of Systems Review of Systems as above <JANIS Aguirre - Last Filed: 01/07/21 11:06> Yes all other systems are reviewed and are negative <JANIS Aguirre - Last Filed: 01/07/21 11:06> Physical Exam Vital Signs: Last Vital Signs Temp 98.7 F 01/07/21 07:05 Pulse 67 01/07/21 09:13 Resp 20 01/07/21 07:05 BP 148/91 H 01/07/21 09:13 Pulse Ox 93 01/07/21 09:13 Body Mass Index 36.0 <JANIS Aguirre - Last Filed: 01/07/21 11:06> Const General: cooperative, no acute distress, alert and awake <JANIS Aguirre - Last Filed: 01/07/21 11:06> Orientation/consciousness: patient oriented x3 <JANIS Aguirre - Last Filed: 01/07/21 11:06> Neck Neck: Yes normal visual inspection and Yes no JVD <JANIS Aguirre - Last Filed: 01/07/21 11:06> Resp Effort & Inspection: normal respiratory effort, able to speak in complete sentences and not labored <JANIS Aguirre - Last Filed: 01/07/21 11:06> Auscultation: clear to auscultation bilaterally, rales (bases), no rhonchi and no wheezes <PREETI Aguirre - Last Filed: 01/07/21 11:06> Cardio Rate: regular rate <Zita Fajardo NP - Last Filed: 01/07/21 11:06> Rhythm: abnormal rhythm irregularly irregular <Zita Fajardo NP - Last Filed: 01/07/21 11:06> Heart sounds: S1 normal heart sound present and S2 normal heart sound present <Zita Fajardo NP - Last Filed: 01/07/21 11:06> Peripheral pulses: Peripheral pulses 2+ throughout <Zita Fajardo [facility] - Last Filed: 01/07/21 11:06> GI Inspection: Yes normal to inspection <Zita Fajardo NP - Last Filed: 01/07/21 11:06> Neuro General: patient oriented x3 <Zita Fajardo NP - Last Filed: 01/07/21 11:06> Extrem Other: +_1 lower leg edema <Zita Fajardo NP - Last Filed: 01/07/21 11:06> General: Yes normal to inspection <Zita Fajardo NP - Last Filed: 01/07/21 11:06> Objective Labs and Meds Result diagrams: : 01/07/21 06:04 01/07/21 06:04 <Zita Fajardo NP - Last Filed: 01/07/21 11:06> Lab results: Laboratory Results - last 24 hr 01/07/21 01/07/21 01/07/21 06:04 06:04 06:04 WBC 4.6 L RBC 2.90 L Hgb 10.4 L Hct 29.7 L MCV 102.4 H MCH 35.9 H MCHC 35.0 RDW 20.9 H Plt Count 151 L MPV 10.3 Absolute Nucleated RBC 0.000 Nucleated RBC % (auto) 0.0 PT 18.2 H INR 1.6 H Sodium 141 Potassium 3.9 Chloride 99 Carbon Dioxide 33 H Anion Gap 13 BUN 23 H Creatinine 0.71 Estim Creat Clear Calc 60.6 Estimated GFR > 60 Random Glucose 96 Calcium 9.3 Magnesium 1.8 B-Natriuretic Peptide 01/07/21 06:04 WBC RBC Hgb Hct MCV MCH MCHC RDW Plt Count MPV Absolute Nucleated RBC Nucleated RBC % (auto) PT INR Sodium Potassium Chloride Carbon Dioxide Anion Gap BUN Creatinine Estim Creat Clear Calc Estimated GFR Random Glucose Calcium Magnesium B-Natriuretic Peptide 301 H <JANIS Aguirre - Last Filed: 01/07/21 11:06> Progress Note: A&P Assessment and plan (1) Acute on chronic diastolic (congestive) heart failure: Status: Acute <JANIS Aguirre - Last Filed: 01/07/21 11:06> Assessment and Plan: Being treated for acute on chronic diastolic CHF which is likely related to anemia and severe . Echo done 01/05/21 shows EF 60-65%, mod dilated LA, severe , moderate increase in RVSP. Being diuresed with IV Lasix. Fluid balance neg 5.4 liters. Cr 0.71. BNP today 301, down from 746 11/18. Still reports sob with activity. Has few rales in bases and residual leg edema. Continue to diurese with IV Lasix. Strict I+O monitoring. Close monitoring of electrolyte and kidney function with electrolyte replacement as warranted. <JANIS Aguirre - Last Filed: 01/07/21 11:06> Being treated for acute on chronic diastolic CHF which is likely related to anemia and severe . Echo done 01/05/21 shows EF 60-65%, mod dilated LA, severe , moderate increase in RVSP. Being diuresed with IV Lasix. Fluid balance neg 5.4 liters. Cr 0.71. BNP today 301, down from 746 11/18. Still reports sob with activity. Has few rales in bases and residual leg edema. Continue to diurese with IV Lasix. Strict I+O monitoring. Close monitoring of electrolyte and kidney function with electrolyte replacement as warranted. Patient seen and examined. Case discussed with Zita Fajardo. Remains short of breath with activity. Continue IV diuresis as above. Continue to trend BMP and BNP. Most likely cause for her symptoms are worsening aortic stenosis is exacerbated by anemia. Will continue to follow with you <Scott Sandhu MD - Last Filed: 01/07/21 12:33> (2) Atrial fibrillation: Status: Acute <JANIS Aguirre - Last Filed: 01/07/21 11:06> Assessment and Plan: Hx of persistent afib that is treated with rate control. Tele shows afib with average rate in 60s. No report of palpitations. Continue Metoprolol. On Coumadin for anticoagulation. INR goal 2-3. INR 4.4 on admit and down to 1.6 today. Coumadin dosing as directed by hospitalist <JANIS Aguirre - Last Filed: 01/07/21 11:06> (3) Nonrheumatic aortic valve stenosis: Status: Acute <JANIS Aguirre - Last Filed: 01/07/21 11:06> Assessment and Plan: Hx of . Echo this admit showing severe , mean gradiant 30mmhg, HALI 0.77cm2. AVR has been discussed and pt unsure at this time. <JANIS Aguirre - Last Filed: 01/07/21 11:06> (4) Hypertension: Status: Acute <JANIS Aguirre - Last Filed: 01/07/21 11:06> Assessment and Plan: Mild elevation, this am 148/91. On Metoprolol, amlodipine and recieving IV lasix. Continue to follow <JANIS Aguirre - Last Filed: 01/07/21 11:06> Fall Risk Details Current Medications: Current Medications Acetaminophen (Acetaminophen 325 Mg Tablet) 650 mg PO Q6H PRN PRN Reason: Pain, Mild (Pain Scale 1-3) Last Admin: 01/07/21 08:22 Dose: 650 mg Documented by: Amlodipine Besylate (Amlodipine Besylate 10 Mg Tablet) 10 mg PO DAILY [facility]; Protocol Last Admin: 01/07/21 08:17 Dose: 10 mg Documented by: Bisacodyl (Bisacodyl 5 Mg Tablet.) 10 mg PO DAILY [facility] Last Admin: 01/07/21 08:17 Dose: 10 mg Documented by: Cyanocobalamin (Cyanocobalamin (Vitamin B-12) 1,000 Mcg Tablet) 1,000 mcg PO DAILY [facility] Last Admin: 01/07/21 08:18 Dose: 1,000 mcg Documented by: Folic Acid (Folic Acid 1 Mg Tablet) 1 mg PO DAILY [facility] Last Admin: 01/07/21 08:18 Dose: 1 mg Documented by: Furosemide (Furosemide 40 Mg/4 Ml Vial) 40 mg IVPUSH BID@0900,1800 [facility]; Protocol Last Admin: 01/07/21 08:18 Dose: 40 mg Documented by: Ceftriaxone Sodium 1 gm/ (Sodium Chloride) 50 mls @ 100 mls/hr IV Q24H [facility] Last Infusion: 01/07/21 06:47 Dose: Infused Documented by: Metoprolol Tartrate (Metoprolol Tartrate 25 Mg Tablet) 25 mg PO BID [facility]; Protocol Last Admin: 01/07/21 08:17 Dose: 25 mg Documented by: Nystatin (Nystatin Powder 15 Gm Bottle) 1 appl TOPICAL BID [facility]; Protocol Last Admin: 01/07/21 08:25 Dose: 1 appl Documented by: Ondansetron HCl (Ondansetron Hcl 4 Mg/2 Ml Vial) 4 mg IVPUSH Q8H PRN PRN Reason: Nausea and Vomiting Pharmacy Consult (Consult Rx Perform Med Rec) 1 each MISCELLANE ONCE PRN PRN Reason: Consult order Sertraline HCl (Sertraline Hcl 50 Mg Tablet) 50 mg PO DAILY [facility] Last Admin: 01/07/21 08:17 Dose: 50 mg Documented by: Sodium Chloride (0.9 % Sodium Chloride Flush 3 Ml Syringe) 3 ml IVFLUSH QSHIFT [facility] Last Admin: 01/07/21 08:19 Dose: 3 ml Documented by: Spironolactone (Spironolactone 25 Mg Tablet) 12.5 mg PO DAILY [facility]; Protocol Last Admin: 01/07/21 08:18 Dose: 12.5 mg Documented by: Warfarin Sodium (Warfarin Sodium 2 Mg Tablet) 2 mg PO DAILY@1800 [facility] <JANIS Aguirre - Last Filed: 01/07/21 11:06> Time Spent With Patient Time: Total time spent is greater than 50% in coordination of care (as documented) at patient's floor/unit and/or counseling patient: <JANIS Aguirre - Last Filed: 01/07/21 11:06> Time with patient: 25 - 35 minutes <JANIS Aguirre - Last Filed: 01/07/21 11:06> Progress Note: Quality Stroke Does the patient have a stroke diagnosis?: No <JANIS Aguirre - Last Filed: 01/07/21 11:06> Procedures Date of Service Date of Service: 01/07/21 <JANIS Aguirre - Last Filed: 01/07/21 11:06>
--- NOTE | 2021-01-07 11:02 | P.PNIM_ITS ---
Subjective Subjective Date of Service: 01/07/21 Interval History: cc: sob interval history: improved, walked around room this morning, but had significant sob Cardiovascular Cardiovascular: Reports no additional cardiovascular complaints Gastrointestinal Gastrointestinal: Reports no additional gastrointestinal complaints Physical Exam Vital Signs: Vital Signs: Last Vital Signs Temp 98.7 F 01/07/21 07:05 Pulse 67 01/07/21 09:13 Resp 20 01/07/21 07:05 BP 148/91 H 01/07/21 09:13 Pulse Ox 93 01/07/21 09:13 Body Mass Index 36.0 General: AO X 3, no acute distress Resp: basilar crackles, no accessory muscles used CVS: S1,S2,irregular ,murmur GI: soft, non tender, non distended Neuro: motor grossly intact, alert Psych: appropriate affect, appropriate insight Objective Data Active Medications Acetaminophen (Acetaminophen 325 Mg Tablet) 650 mg PO Q6H PRN PRN Reason: Pain, Mild (Pain Scale 1-3) Last Admin: 01/07/21 08:22 Dose: 650 mg Documented by: JAYME Amlodipine Besylate (Amlodipine Besylate 10 Mg Tablet) 10 mg PO DAILY [facility]; Protocol Last Admin: 01/07/21 08:17 Dose: 10 mg Documented by: JAYME Bisacodyl (Bisacodyl 5 Mg Tablet.) 10 mg PO DAILY [facility] Last Admin: 01/07/21 08:17 Dose: 10 mg Documented by: JAYME Cyanocobalamin (Cyanocobalamin (Vitamin B-12) 1,000 Mcg Tablet) 1,000 mcg PO DAILY [facility] Last Admin: 01/07/21 08:18 Dose: 1,000 mcg Documented by: JAYME Folic Acid (Folic Acid 1 Mg Tablet) 1 mg PO DAILY [facility] Last Admin: 01/07/21 08:18 Dose: 1 mg Documented by: JAYME Furosemide (Furosemide 40 Mg/4 Ml Vial) 40 mg IVPUSH BID@0900,1800 [facility]; Protocol Last Admin: 01/07/21 08:18 Dose: 40 mg Documented by: JAYME Ceftriaxone Sodium 1 gm/ (Sodium Chloride) 50 mls @ 100 mls/hr IV Q24H [facility] Last Infusion: 01/07/21 06:47 Dose: 0 mls/hr Documented by: NICOLE Metoprolol Tartrate (Metoprolol Tartrate 25 Mg Tablet) 25 mg PO BID [facility]; Protocol Last Admin: 01/07/21 08:17 Dose: 25 mg Documented by: JAYME Nystatin (Nystatin Powder 15 Gm Bottle) 1 appl TOPICAL BID [facility]; Protocol Last Admin: 01/07/21 08:25 Dose: 1 appl Documented by: JAYME Ondansetron HCl (Ondansetron Hcl 4 Mg/2 Ml Vial) 4 mg IVPUSH Q8H PRN PRN Reason: Nausea and Vomiting Pharmacy Consult (Consult Rx Perform Med Rec) 1 each MISCELLANE ONCE PRN PRN Reason: Consult order Sertraline HCl (Sertraline Hcl 50 Mg Tablet) 50 mg PO DAILY [facility] Last Admin: 01/07/21 08:17 Dose: 50 mg Documented by: JAYME Sodium Chloride (0.9 % Sodium Chloride Flush 3 Ml Syringe) 3 ml IVFLUSH QSHIFT [facility] Last Admin: 01/07/21 08:19 Dose: 3 ml Documented by: JAYME Spironolactone (Spironolactone 25 Mg Tablet) 12.5 mg PO DAILY [facility]; Protocol Last Admin: 01/07/21 08:18 Dose: 12.5 mg Documented by: JAYME Warfarin Sodium (Warfarin Sodium 2 Mg Tablet) 2 mg PO DAILY@1800 [facility] Labs CBC & Chem 7: 01/07/21 06:04 01/07/21 06:04 Labs: Laboratory Results - last 24 hr 01/07/21 01/07/21 01/07/21 06:04 06:04 06:04 MCV 102.4 H MCH 35.9 H MCHC 35.0 RDW 20.9 H Plt Count 151 L MPV 10.3 Absolute Nucleated RBC 0.000 Nucleated RBC % (auto) 0.0 PT 18.2 H INR 1.6 H Anion Gap 13 Estim Creat Clear Calc 60.6 Estimated GFR > 60 Random Glucose 96 Calcium 9.3 Magnesium 1.8 B-Natriuretic Peptide 01/07/21 06:04 MCV MCH MCHC RDW Plt Count MPV Absolute Nucleated RBC Nucleated RBC % (auto) PT INR Anion Gap Estim Creat Clear Calc Estimated GFR Random Glucose Calcium Magnesium B-Natriuretic Peptide 301 H Assessment and Plan Assessment and Plan: hospital d#7 80yo F with HFpEF, AF on warfarin, hx CVA, HTN, HLD, obesity, RA presented with dyspnea + admitted for CHF exacerbation acute/chronic HFpEF - continue IV furosemide, monitor BNP/I+O and electrolytes - cardio following severe aortic stenosis outpatient Cardiology workup HTN - continue amlodipine, added metoprolol tartrate + spironolactone 01/05 hypoMg - repleted chronic AF - metoprolol - INR 1.6, increased warfarin back to 2mg macrocytic anemia pancytopenia - transfused 1u pRBCs 01/04/21 - FOBT negative - GI evaluation with EGD/C-scope on hold pending further diuresis 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 pt has hx monoclonal IgM gammopathy + has retroperitoneal adenopathy. has declined LN bx in past boredline b12, will start supplement Klebsiella pneumoniae UTI - R to ampicillin + SMX/TMP - d#6/7 ceftriaxone fatty liver disease - Fibrosure pending, outpt GI f/u mood disorder - sertraline dispo - PT consult: anticipate home with [facility]NA in next 1-2d Quality Stroke Does the patient have a stroke diagnosis?: No VTE Prior VTE?: No VTE Risk Level:: Medical - moderate - high VTE Device Contraindication: Treatment Not Indicated VTE Drug Contraindication: N/A - Med Ordered
[2021-01-07 11:41] LABS: PES - Abn Protein Band 1 0.7 g/dL (NONE DETECTED); Prot Elec - Albumin 3.6 g/dL (3.8-4.8); Prot Elec - Alpha1 0.3 g/dL (0.2-0.3); Prot Elec - Alpha2 0.5 g/dL (0.5-0.9); Prot Elec - Beta 1 0.4 g/dL (0.4-0.6); Prot Elec - Beta 2 0.4 g/dL (0.2-0.5); Prot Elec - Gamma 1.4 g/dL (0.8-1.7); Prot Elec - Total Protein 6.6 g/dL (6.1-8.1)
[2021-01-07 16:37] LABS: Glucose, Whole Blood 137 mg/dL (60-115)
[2021-01-07] MEDS: Warfarin Sodium 2 MG TABLET PO (19:00)
[2021-01-08] VITALS (9 sets, daily range): BP systolic 100–148; BP diastolic 55–82; PULSE 60–93; RESP 18–20; TEMP 35.9–37.1; O2SAT 90–98
[2021-01-08] MEDS: cefTRIAXone sodium 1 GM in 0.9 % Sodium Chloride 50 ML IV (05:23)
[2021-01-08 07:11] LABS: Hematocrit 31.6 % (37.0-47.0); Hemoglobin 10.9 g/dl (12.0-16.0); Mean Corpuscular HGB Conc 34.5 g/dl (31.0-35.0); Mean Corpuscular Hemoglobin 35.2 pg (27.0-33.0); Mean Corpuscular Volume 101.9 fL (80.0-98.0); Mean Platelet Volume 10.5 fL (9.4-12.3); Platelet Count 167 X10*3/uL (160-400); Red Cell Distribution Width 20.6 % (11.0-16.0); White Blood Count 5.1 X10*3/uL (4.8-10.8)
[2021-01-08 07:13] LABS: INTERNATIONAL NORM RATIO 1.6 (0.9-1.1); Prothrombin Time 18.1 SEC (9.9-13.0)
[2021-01-08 07:40] LABS: B Type Natriuretic Peptide 221 pg/mL (<100)
[2021-01-08 07:45] LABS: Anion Gap 13 (12-20); Blood Urea Nitrogen 29 mg/dL (9-16); Calcium 9.2 mg/dL (8.4-10.2); Carbon Dioxide 33 mmol/L (22-29); Chloride 99 mmol/L (96-108); Creatinine Clr Calc Pharmacy 55.8; Estimated Glomerular Filt Rate > 60; Glucose Fasting 90 mg/dL (60-99); Potassium 3.8 mmol/L (3.3-5.1); Sodium 141 mmol/L (135-145)
[2021-01-08] MEDS: Spironolactone 25 MG TABLET 12.5 MG PO (08:15)
[2021-01-08] MEDS: Furosemide 40 MG/4 ML VIAL IVPUSH (08:15)
[2021-01-08] MEDS: amLODIPine Besylate 10 MG TABLET PO (08:15)
[2021-01-08] MEDS: 0.9 % Sodium Chloride Flush 3 ML SYRINGE IVFLUSH ×3 (08:16→23:18)
[2021-01-08] MEDS: Sertraline HCL 50 MG TABLET PO (08:16)
[2021-01-08] MEDS: bisacodyL 5 MG TABLET.DR 10 MG PO (08:16)
[2021-01-08] MEDS: Metoprolol Tartrate 25 MG TABLET PO (08:16)
[2021-01-08] MEDS: Cyanocobalamin (Vitamin B-12) 1,000 MCG TABLET 1000 MCG PO (08:16)
[2021-01-08] MEDS: Folic Acid 1 MG TABLET PO (08:16)
[2021-01-08] MEDS: Nystatin Powder 15 GM BOTTLE 1 APPL TOPICAL ×2 (08:17→20:41)
--- NOTE | 2021-01-08 12:14 | HO.PM.IMPN ---
Subjective Subjective Date of Service: 01/08/21 Interval History: cc: sob interval history: improved, walked around room again this morning, but had significant sob Cardiovascular Cardiovascular: Reports no additional cardiovascular complaints Gastrointestinal Gastrointestinal: Reports no additional gastrointestinal complaints Physical Exam Vital Signs: Vital Signs: Last Vital Signs Temp 97.7 F 01/08/21 11:26 Pulse 93 01/08/21 11:26 Resp 18 01/08/21 11:26 BP 148/82 H 01/08/21 11:26 Pulse Ox 92 01/08/21 11:26 Body Mass Index 36.0 General: AO X 3, no acute distress Resp:? basilar crackles, no accessory muscles used CVS: S1,S2,irregular ,murmur GI: soft, non tender, non distended Neuro:? motor grossly intact, alert Psych: appropriate affect, appropriate insight? Objective Data Active Medications Acetaminophen (Acetaminophen 325 Mg Tablet) 650 mg PO Q6H PRN PRN Reason: Pain, Mild (Pain Scale 1-3) Last Admin: 01/07/21 19:02 Dose: 650 mg Documented by: JAYME Amlodipine Besylate (Amlodipine Besylate 10 Mg Tablet) 10 mg PO DAILY [facility]; Protocol Last Admin: 01/08/21 08:15 Dose: 10 mg Documented by: RENETTA Bisacodyl (Bisacodyl 5 Mg Tablet.) 10 mg PO DAILY [facility] Last Admin: 01/08/21 08:16 Dose: 10 mg Documented by: RENETTA Cyanocobalamin (Cyanocobalamin (Vitamin B-12) 1,000 Mcg Tablet) 1,000 mcg PO DAILY [facility] Last Admin: 01/08/21 08:16 Dose: 1,000 mcg Documented by: RENETTA Folic Acid (Folic Acid 1 Mg Tablet) 1 mg PO DAILY [facility] Last Admin: 01/08/21 08:16 Dose: 1 mg Documented by: RENETTA Ceftriaxone Sodium 1 gm/ (Sodium Chloride) 50 mls @ 100 mls/hr IV Q24H [facility] Last Infusion: 01/08/21 05:56 Dose: 0 mls/hr Documented by: LAITH Metoprolol Tartrate (Metoprolol Tartrate 12.5 Mg Halftab) 12.5 mg PO BID [facility]; Protocol Nystatin (Nystatin Powder 15 Gm Bottle) 1 appl TOPICAL BID [facility]; Protocol Last Admin: 01/08/21 08:17 Dose: 1 appl Documented by: RENETTA Ondansetron HCl (Ondansetron Hcl 4 Mg/2 Ml Vial) 4 mg IVPUSH Q8H PRN PRN Reason: Nausea and Vomiting Pharmacy Consult (Consult Rx Perform Med Rec) 1 each MISCELLANE ONCE PRN PRN Reason: Consult order Sertraline HCl (Sertraline Hcl 50 Mg Tablet) 50 mg PO DAILY [facility] Last Admin: 01/08/21 08:16 Dose: 50 mg Documented by: RENETTA Sodium Chloride (0.9 % Sodium Chloride Flush 3 Ml Syringe) 3 ml IVFLUSH QSHIFT [facility] Last Admin: 01/08/21 08:16 Dose: 3 ml Documented by: RENETTA Spironolactone (Spironolactone 25 Mg Tablet) 12.5 mg PO DAILY [facility]; Protocol Last Admin: 01/08/21 08:15 Dose: 12.5 mg Documented by: RENETTA Warfarin Sodium (Warfarin Sodium 2 Mg Tablet) 2 mg PO DAILY@1800 [facility] Last Admin: 01/07/21 19:00 Dose: 2 mg Documented by: JAYME Labs CBC & Chem 7: 01/08/21 06:33 01/08/21 06:33 Labs: Laboratory Results - last 24 hr 01/07/21 01/08/21 01/08/21 16:34 06:33 06:33 MCV 101.9 H MCH 35.2 H MCHC 34.5 RDW 20.6 H Plt Count 167 MPV 10.5 Absolute Nucleated RBC 0.000 Nucleated RBC % (auto) 0.0 PT 18.1 H INR 1.6 H Anion Gap Estim Creat Clear Calc Estimated GFR POC Glucose 137 H Fasting Glucose Calcium B-Natriuretic Peptide 01/08/21 01/08/21 06:33 06:33 MCV MCH MCHC RDW Plt Count MPV Absolute Nucleated RBC Nucleated RBC % (auto) PT INR Anion Gap 13 Estim Creat Clear Calc 55.8 Estimated GFR > 60 POC Glucose Fasting Glucose 90 Calcium 9.2 B-Natriuretic Peptide 221 H Assessment and Plan (1) UTI (urinary tract infection): Status: Acute Assessment and Plan: hospital d#8 80yo F with HFpEF, AF on warfarin, hx CVA, HTN, HLD, obesity, RA presented with dyspnea + admitted for CHF exacerbation acute/chronic HFpEF - BNP improved, bun/cr ratio increased, borderline hypotensive this am, no jvd, edema improved, will hold iv lasix for now still with crackles, will check cxr - rule out atelectasis - cardio following severe aortic stenosis outpatient Cardiology workup HTN - continue amlodipine, added metoprolol tartrate + spironolactone 01/05 hypoMg - repleted chronic AF - metoprolol - INR 1.6, increase warfarin back to 2.5mg macrocytic anemia pancytopenia - transfused 1u pRBCs 01/04/21 - FOBT negative - GI evaluation with EGD/C-scope on hold pending further diuresis 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 pt has hx monoclonal IgM gammopathy + has retroperitoneal adenopathy. has declined LN bx in past boredline b12, started supplement Klebsiella pneumoniae UTI - R to ampicillin + SMX/TMP - d#7 ceftriaxone fatty liver disease - Fibrosure pending, outpt GI f/u mood disorder - sertraline dispo - PT consult: anticipate home with VNA in next 1-2d Quality Stroke Does the patient have a stroke diagnosis?: No VTE Prior VTE?: No VTE Risk Level:: Medical - moderate - high VTE Device Contraindication: Treatment Not Indicated VTE Drug Contraindication: N/A - Med Ordered
--- NOTE | 2021-01-08 12:29 | P.PNCA_ITS ---
Subjective Subjective Date of Service: 01/08/21 Principal diagnosis: CHF,AF Interval history: Patient continues to remain short of breath. She says with minimal activity like going to the commode she gets short of breath. Also has dizziness. Denies any palpitations. Heart rate remained well controlled. Blood pressure is controlled. BNP in the 200 range Review of Systems Constitutional: Reports fatigue Eyes: Reports no additional eye complaints Cardiovascular: Denies chest pain, Reports lightheadedness, Denies Loss of Consciousness, Reports dyspnea on exertion and Denies orthopnea Respiratory: Reports no additional respiratory complaints and Reports dyspnea on exertion Gastrointestinal: Reports no additional gastrointestinal complaints Genitourinary: Reports no additional female genitourinary complaints Musculoskeletal: Reports no additional musculoskeletal complaints Skin/Breast: Reports system reviewed and no additional complaints, except as docu Reports system reviewed and no additional complaints, except as documented Endocrine: Reports fatigue Physical Exam Vital Signs: Last Vital Signs Temp 97.7 F 01/08/21 11:26 Pulse 93 01/08/21 11:26 Resp 18 01/08/21 11:26 BP 148/82 H 01/08/21 11:26 Pulse Ox 92 01/08/21 11:26 Body Mass Index 36.0 Const General: cooperative, comfortable, alert, awake and in distress mild and respiratory Nutritional Appearance: overweight and other (Frail elderly woman) Orientation/consciousness: patient oriented x3 Neck Neck: Yes trachea midline, Yes supple and Yes no JVD Resp Effort & Inspection: normal respiratory effort Auscultation: crackles (Coarse at right base) Cardio Jugular venous distension: no JVD Rhythm: abnormal rhythm irregularly irregular Heart sounds: S1 normal heart sound present and Murmur heart sound present systolic late, decrescendo and crescendo Skin General skin exam: no rashes or lesions noted and ecchymosis Neuro General: patient oriented x3 and no focal motor deficits Extrem General: Yes no clubbing, cyanosis or edema Objective Labs and Meds Result diagrams: 01/08/21 06:33 01/08/21 06:33 Lab results: Laboratory Results - last 24 hr 01/07/21 01/08/21 01/08/21 16:34 06:33 06:33 WBC 5.1 RBC 3.10 L Hgb 10.9 L Hct 31.6 L MCV 101.9 H MCH 35.2 H MCHC 34.5 RDW 20.6 H Plt Count 167 MPV 10.5 Absolute Nucleated RBC 0.000 Nucleated RBC % (auto) 0.0 PT 18.1 H INR 1.6 H Sodium Potassium Chloride Carbon Dioxide Anion Gap BUN Creatinine Estim Creat Clear Calc Estimated GFR POC Glucose 137 H Fasting Glucose Calcium B-Natriuretic Peptide 01/08/21 01/08/21 06:33 06:33 WBC RBC Hgb Hct MCV MCH MCHC RDW Plt Count MPV Absolute Nucleated RBC Nucleated RBC % (auto) PT INR Sodium 141 Potassium 3.8 Chloride 99 Carbon Dioxide 33 H Anion Gap 13 BUN 29 H Creatinine 0.77 Estim Creat Clear Calc 55.8 Estimated GFR > 60 POC Glucose Fasting Glucose 90 Calcium 9.2 B-Natriuretic Peptide 221 H Progress Note: A&P Assessment and plan (1) CHF exacerbation: Status: Acute Assessment and Plan: CHF exacerbation recently due to severe anemia in the setting of underlying aortic stenosis. Also high likelihood of underlying coronary artery disease. Clinically appears today more euvolemic. BNP is significantly reduced from 800- 200. Can switch to p.o. Lasix. I suspect other cause for her shortness of breath this time appears to be may be pulmonary related question atelectasis. Would consider chest x-ray to evaluate for the same. Incentive spirometry. Continue spironolactone therapy. Continue rate control with metoprolol. May need to address for aortic stenosis is in the near future. See below. (2) Persistent atrial fibrillation: Status: Acute Assessment and Plan: Persistent atrial fibrillation, currently rate controlled. Continue rate control with Toprol. Continue full oral anticoagulation with warfarin. Target INR between 2 and 3. (3) Nonrheumatic aortic valve stenosis: Status: Acute Assessment and Plan: Aortic stenosis which appears to have worsened. She is not wanting to have any interventions performed 1 aortic stenosis. Will have to discuss this again in conjunction with the family for further treatment plan, will be done as outpatient. Continue to manage anemia and workup for anemia prior to considering coronary aortic valve intervention. Will follow with you Fall Risk Details Current Medications: Current Medications Acetaminophen (Acetaminophen 325 Mg Tablet) 650 mg PO Q6H PRN PRN Reason: Pain, Mild (Pain Scale 1-3) Last Admin: 01/07/21 19:02 Dose: 650 mg Documented by: Amlodipine Besylate (Amlodipine Besylate 10 Mg Tablet) 10 mg PO DAILY [facility]; Protocol Last Admin: 01/08/21 08:15 Dose: 10 mg Documented by: Bisacodyl (Bisacodyl 5 Mg Tablet.) 10 mg PO DAILY [facility] Last Admin: 01/08/21 08:16 Dose: 10 mg Documented by: Cyanocobalamin (Cyanocobalamin (Vitamin B-12) 1,000 Mcg Tablet) 1,000 mcg PO DAILY [facility] Last Admin: 01/08/21 08:16 Dose: 1,000 mcg Documented by: Folic Acid (Folic Acid 1 Mg Tablet) 1 mg PO DAILY [facility] Last Admin: 01/08/21 08:16 Dose: 1 mg Documented by: Ceftriaxone Sodium 1 gm/ (Sodium Chloride) 50 mls @ 100 mls/hr IV Q24H [facility] Last Infusion: 01/08/21 05:56 Dose: Infused Documented by: Metoprolol Tartrate (Metoprolol Tartrate 12.5 Mg Halftab) 12.5 mg PO BID [facility]; Protocol Nystatin (Nystatin Powder 15 Gm Bottle) 1 appl TOPICAL BID [facility]; Protocol Last Admin: 01/08/21 08:17 Dose: 1 appl Documented by: Ondansetron HCl (Ondansetron Hcl 4 Mg/2 Ml Vial) 4 mg IVPUSH Q8H PRN PRN Reason: Nausea and Vomiting Pharmacy Consult (Consult Rx Perform Med Rec) 1 each MISCELLANE ONCE PRN PRN Reason: Consult order Sertraline HCl (Sertraline Hcl 50 Mg Tablet) 50 mg PO DAILY [facility] Last Admin: 01/08/21 08:16 Dose: 50 mg Documented by: Sodium Chloride (0.9 % Sodium Chloride Flush 3 Ml Syringe) 3 ml IVFLUSH QSHIFT [facility] Last Admin: 01/08/21 08:16 Dose: 3 ml Documented by: Spironolactone (Spironolactone 25 Mg Tablet) 12.5 mg PO DAILY [facility]; Protocol Last Admin: 01/08/21 08:15 Dose: 12.5 mg Documented by: Warfarin Sodium (Warfarin Sodium 2.5 Mg Tablet) 2.5 mg PO DAILY@1800 [facility] Time Spent With Patient Time: Total time spent is greater than 50% in coordination of care (as documented) at patient's floor/unit and/or counseling patient: Time with patient: 25 - 35 minutes Progress Note: Quality Stroke Does the patient have a stroke diagnosis?: No Procedures Date of Service Date of Service: 01/08/21
[2021-01-08] MEDS: Warfarin Sodium 2.5 MG TABLET PO (17:14)
[2021-01-08] MEDS: Acetaminophen 325 MG TABLET 650 MG PO (20:40)
[2021-01-08] MEDS: Metoprolol Tartrate 12.5 MG HALFTAB PO (20:44)
[2021-01-09 03:08] VITALS: BP 105/58; PULSE 80; RESP 20; TEMP 35.9; O2SAT 94
[2021-01-09 07:08] LABS: INTERNATIONAL NORM RATIO 1.6 (0.9-1.1); Prothrombin Time 18.2 SEC (9.9-13.0)
[2021-01-09 07:26] VITALS: BP 127/69; PULSE 62; RESP 20; TEMP 36.3; O2SAT 90
[2021-01-09] MEDS: Cyanocobalamin (Vitamin B-12) 1,000 MCG TABLET 1000 MCG PO (10:23)
[2021-01-09] MEDS: Sertraline HCL 50 MG TABLET PO (10:23)
[2021-01-09] MEDS: Folic Acid 1 MG TABLET PO (10:23)
[2021-01-09] MEDS: amLODIPine Besylate 10 MG TABLET PO (10:23)
[2021-01-09] MEDS: Furosemide 40 MG TABLET PO (10:23)
[2021-01-09] MEDS: bisacodyL 5 MG TABLET.DR 10 MG PO (10:23)
[2021-01-09] MEDS: Spironolactone 25 MG TABLET 12.5 MG PO (10:24)
[2021-01-09] MEDS: Nystatin Powder 15 GM BOTTLE 1 APPL TOPICAL (10:24)
[2021-01-09] MEDS: Metoprolol Tartrate 12.5 MG HALFTAB PO (10:27)
[2021-01-09] MEDS: 0.9 % Sodium Chloride Flush 3 ML SYRINGE IVFLUSH (10:50)
--- NOTE | 2021-01-09 11:21 | PM.DS ---
DS: Providers Provider Date of Service: 01/09/21 Date of admission: 01/01/21 21:54 Primary care physician: Riccardo Page MD Consults: 01/02/21 00:25 Consult to Cardiology Routine Consulting Provider: Carmelo Andrews Reason for consultation: CHF Has provider been notified: No 01/03/21 08:28 Consult to Gastroenterology Routine Consulting Provider: Margarette Howe Reason for consultation: anemia, concern for gi bleed Has provider been notified: No 01/04/21 07:51 Consult to Hematology / Oncology Routine Consulting Provider: [facility] Oncology/Hematology Reason for consultation: pancytopenia 01/05/21 08:14 Consult to Hematology / Oncology Routine Consulting Provider: Farooq Eisenberg Reason for consultation: anemia f/u DS: Diagnosis Discharge Diagnosis (1) CHF exacerbation: Status: Acute (2) Persistent atrial fibrillation: Status: Acute (3) Nonrheumatic aortic valve stenosis: Status: Acute DS: Summary Hospital Course Hospital Course: patient was admitted for acute on chronic diastolic CHF. She was diuresed with IV Lasix, symptoms significantly improved. She does still have shortness of breath on exertion likely related to severe aortic stenosis, she will follow up outpatient for this. Her hypertension was poorly controlled, amlodipine was increased to 10 mg daily, metoprolol tartrate was added. Her chronic AFib she was continue metoprolol, her INR was subtherapeutic, Coumadin should be continued and dose adjusted appropriately. For her pancytopenia with macrocytic anemia, she was transfused 1 unit of PRBC and hemoglobin remained stable, FOBT was negative, she was seen by GI who recommended holding off on EGD / colonoscopy while inpatient, she can follow up with GI as outpatient. She was seen by Hematology Dr. Eisenberg who recommended outpatient follow-up, she was noted to have borderline B12 and was started on supplement. For her Klebsiella pneumoniae UTI she was treated with 7 days of ceftriaxone. Patient was noted to have fatty liver disease and will be undergoing FibroSure with GI as outpatient. Patient is now feeling better will be discharged home with VNA. Time Spent with Patient Time attestation: Total time spent providing and/or coordinating discharge services: Discharge coordination time: Greater than 30 minutes Quality: Stroke Does the patient have a stroke diagnosis?: No Physical Exam Vital Signs: Vital Signs: Last Vital Signs Temp 97.3 F 11/26/21 07:26 Pulse 62 01/09/21 07:26 Resp 20 01/09/21 07:26 BP 127/69 01/09/21 07:26 Pulse Ox 90 L 01/09/21 07:26 Body Mass Index 36.0 General: AO X 3, no acute distress Resp:? basilar crackles, no accessory muscles used CVS: S1,S2,irregular ,murmur GI: soft, non tender, non distended Neuro:? motor grossly intact, alert Psych: appropriate affect, appropriate insight? DS: Data Data Completed and Pending Labs on day of discharge: Laboratory Results - last 24 hr 01/09/21 06:18 PT 18.2 H INR 1.6 H Discharge Plan Discharge Patient Disposition: Home Health Service Discharge Diagnosis: chf Referrals: Po,Riccardo Oropeza MD [Primary Care Provider] - 1 Week Discharge Medications: New cyanocobalamin (vitamin B-12) [Vitamin B-12] 1,000 mcg Tablet 1,000 mcg PO DAILY Qty: 30 RF: 0 spironolactone 25 mg Tablet 12.5 mg PO DAILY Qty: 30 RF: 0 amlodipine 10 mg Tablet 10 mg PO DAILY Qty: 30 RF: 0 metoprolol tartrate 25 mg tablet 12.5 mg PO BID Qty: 60 RF: 0 Continued (DME) OneTouch Ultra Blue Test Strip Strip See Rx Instructions .ROUTE .MEDSUPPLY Qty: 250 RF: 3 warfarin 1 mg tablet 2 mg PO DAILY RF: 0 folic acid 1 mg Tablet 1 mg PO DAILY RF: 0 furosemide 40 mg tablet 1 tab PO QAM RF: 0 acetaminophen 500 mg Tablet 500 mg PO BEDTIME RF: 0 cholecalciferol (vitamin D3) 1,250 mcg (50,000 unit) capsule 1,250 mcg PO PICKARD RF: 0 sertraline 50 mg tablet 50 mg PO DAILY 30 Days Qty: 30 RF: 0 Discontinued amlodipine 5 mg tablet 5 mg PO DAILY Qty: 30 RF: 0 Discharge Orders: Discharge Order (Routine); Ordered 01/09/21 Ordered By: Giles Negron Diet: advance to usual diet Activity on Discharge: As tolerated Stand Alone Forms: Patient Portal Discharge page Care Plan Goals: Improve shortness of breath Health Concerns: CHF, severe aortic stenosis Plan of Treatment: medication changes as above, follow-up with Cardiology Assessment: see above
--- NOTE | 2021-01-09 11:55 | MHC.CM.PN ---
Patient has been medically cleared for dc to home today, with services.JOSE spoke with Jose Manuel at [facility] (Covering for Trisha today, at [phone], Ext.[phone])To inform him of today's dc.Jose Manuel indicated that [facility] services Patient.JOSE spoke with Karishma at [facility] @ [phone], and per her request, faxed dc summary to [phone](dc summary has also been uploaded into [employer]). JOSE addressed second IMM with Patient and the original has been given to her and a copy has been placed on the chart. Patient is aware of and pleased with the dc plan ( eager to get home and snuggle with the dog. )
[2021-01-09 12:00] VITALS: BP 106/56; PULSE 64; RESP 20; TEMP 36.6; O2SAT 92
--- NOTE | 2021-01-09 13:20 | PM.PNCARD ---
Subjective Subjective Date of Service: 01/09/21 Principal diagnosis: CHF,AF Interval history: Patient feeling better today. Denies palpitations. Short of breath but says improved compared to yesterday. Review of Systems Review of Systems Yes all other systems are reviewed and are negative Physical Exam Vital Signs: Last Vital Signs Temp 97.8 F 01/09/21 12:00 Pulse 64 01/09/21 12:00 Resp 20 01/09/21 12:00 BP 106/56 L 01/09/21 12:00 Pulse Ox 92 01/09/21 12:00 Body Mass Index 36.0 Const General: cooperative, comfortable, no acute distress, alert, awake and ill appearing Nutritional Appearance: obese Orientation/consciousness: patient oriented x3 Neck Neck: Yes trachea midline, Yes supple and Yes no JVD Chest Chest palpation & inspection: normal inspection of the chest Resp Effort & Inspection: normal respiratory effort Auscultation: crackles (Coarse) bilateral and diminished lung sounds Cardio Jugular venous distension: no JVD Rhythm: abnormal rhythm irregularly irregular Heart sounds: S1 normal heart sound present and Murmur heart sound present systolic late, decrescendo and crescendo Skin General skin exam: no rashes or lesions noted and ecchymosis Neuro General: patient oriented x3 and no focal motor deficits Extrem General: Yes no clubbing, cyanosis or edema Objective Labs and Meds Result diagrams: 01/08/21 06:33 01/08/21 06:33 Lab results: Laboratory Results - last 24 hr 01/09/21 06:18 PT 18.2 H INR 1.6 H Imaging Radiologist's impression: Impressions Chest X-Ray 01/08/21 14:00 IMPRESSION: Mild cardiomegaly. Bilateral parahilar bronchial wall thickening likely bronchial inflammatory changes or asthma. There is no acute pneumonic process. No change from 01/01/2021 Progress Note: A&P Assessment and plan (1) CHF exacerbation: Status: Acute Assessment and Plan: Acute CHF preceded by severe anemia most likely GI blood loss in the setting of known underlying significant aortic stenosis as well as atrial fibrillation. Likely doing well with oral diuretics and diuresis. Continue p.o. Lasix. Continue pulmonary optimization for underlying possible COPD. Oxygen desaturation study today. May discharge from cardiac perspective today if patient is willing. Outpatient follow-up with Pulmonary. Will follow up in the clinic in 7-10 days. CHF education to be provided. Additional diuretics at home if there are progressive heart failure symptoms was discussed. Anemia workup needs to be strongly pursued. (2) Persistent atrial fibrillation: Status: Acute Assessment and Plan: Persistent atrial fibrillation, currently rate controlled. Continue rate control strategy. Restarted on warfarin therapy. Target INR between 2 and 3. Follow-up GI workup for anemia to avoid recurrent hospitalization. Maintain hematocrit above 30. (3) Nonrheumatic aortic valve stenosis: Status: Acute Assessment and Plan: Aortic stenosis which seems to have progressed. Will follow up as outpatient. Need to discuss in details about potential future workup and treatment including transcatheter aortic valve replacement. Initially patient had decline. However will want to discuss more in the office. Will follow up with her as outpatient. Fall Risk Details Current Medications: Current Medications Acetaminophen (Acetaminophen 325 Mg Tablet) 650 mg PO Q6H PRN PRN Reason: Pain, Mild (Pain Scale 1-3) Last Admin: 01/08/21 20:40 Dose: 650 mg Documented by: Amlodipine Besylate (Amlodipine Besylate 10 Mg Tablet) 10 mg PO DAILY [facility]; Protocol Last Admin: 01/09/21 10:23 Dose: 10 mg Documented by: Bisacodyl (Bisacodyl 5 Mg Tablet.Dr) 10 mg PO DAILY [facility] Last Admin: 01/09/21 10:23 Dose: 10 mg Documented by: Cyanocobalamin (Cyanocobalamin (Vitamin B-12) 1,000 Mcg Tablet) 1,000 mcg PO DAILY [facility] Last Admin: 01/09/21 10:23 Dose: 1,000 mcg Documented by: Folic Acid (Folic Acid 1 Mg Tablet) 1 mg PO DAILY [facility] Last Admin: 01/09/21 10:23 Dose: 1 mg Documented by: Furosemide (Furosemide 40 Mg Tablet) 40 mg PO DAILY [facility]; Protocol Last Admin: 01/09/21 10:23 Dose: 40 mg Documented by: Metoprolol Tartrate (Metoprolol Tartrate 12.5 Mg Halftab) 12.5 mg PO BID [facility]; Protocol Last Admin: 01/09/21 10:27 Dose: 12.5 mg Documented by: Nystatin (Nystatin Powder 15 Gm Bottle) 1 appl TOPICAL BID [facility]; Protocol Last Admin: 01/09/21 10:24 Dose: 1 appl Documented by: Ondansetron HCl (Ondansetron Hcl 4 Mg/2 Ml Vial) 4 mg IVPUSH Q8H PRN PRN Reason: Nausea and Vomiting Pharmacy Consult (Consult Rx Perform Med Rec) 1 each MISCELLANE ONCE PRN PRN Reason: Consult order Sertraline HCl (Sertraline Hcl 50 Mg Tablet) 50 mg PO DAILY [facility] Last Admin: 01/09/21 10:23 Dose: 50 mg Documented by: Sodium Chloride (0.9 % Sodium Chloride Flush 3 Ml Syringe) 3 ml IVFLUSH QSHIFT [facility] Last Admin: 01/09/21 10:50 Dose: 3 ml Documented by: Spironolactone (Spironolactone 25 Mg Tablet) 12.5 mg PO DAILY [facility]; Protocol Last Admin: 01/09/21 10:24 Dose: 12.5 mg Documented by: Warfarin Sodium (Warfarin Sodium 2.5 Mg Tablet) 2.5 mg PO DAILY@1800 [facility] Last Admin: 01/08/21 17:14 Dose: 2.5 mg Documented by: Time Spent With Patient Time: Total time spent is greater than 50% in coordination of care (as documented) at patient's floor/unit and/or counseling patient: Time with patient: 25 - 35 minutes Progress Note: Quality Stroke Does the patient have a stroke diagnosis?: No Procedures Date of Service Date of Service: 01/09/21
[2021-01-09 14:52] LABS: IgA 361 mg/dL (70-320); IgG 1056 mg/dL (600-1540); IgM 803 mg/dL (50-300)
[2021-01-14 00:11] LABS: FIB-ALT 11 U/L (6-29); FIB-Alpha-2-Macroglobulin 200 mg/dL (106-279); FIB-Apolipoprotein A1 123 mg/dL (101-198); FIB-GGT 25 U/L (3-65); FIB-Haptoglobin <8 mg/dL (43-212); FIB-Total Bilirubin 0.8 mg/dL (0.2-1.2); Liver Fibrosis Score 0.82; Liver Fibrosis Stage F4; Nec Inflam Act Grade A0; Nec Inflam Act Score 0.06
[2021-01-14 00:37] LABS: Kappa, Serum 274 mg/dL (176-443); Kappa/Lambda Ratio, Serum 1.15 (1.29-2.55); Lambda, Serum 238 mg/dL (91-240)
== END 2021-01-09 16:11 | disposition home health service (06) | DRG 291 ==
LOC: HO.ED 20:12 → HO.EDOVER 22:00 → HO.IMC 01-02 07:45
PROVIDERS: Family Medicine; Internal Medicine; Internal Medicine Gastroenterology; Admitting Provider Internal Medicine; Emergency Provider Emergency Medicine; PCP Internal Medicine; Visit Provider Internal Medicine
DX: I11.0 Hypertensive heart disease with heart failure (principal); I50.33 Acute on chronic diastolic (congestive) heart failure; N39.0 Urinary tract infection, site not specified; I48.19 Other persistent atrial fibrillation; D61.818 Other pancytopenia; F39 Unspecified mood [affective] disorder; I35.0 Nonrheumatic aortic (valve) stenosis; E83.42 Hypomagnesemia; K76.0 Fatty (change of) liver, not elsewhere classified; E11.65 Type 2 diabetes mellitus with hyperglycemia; B96.1 Klebsiella pneumoniae [K. pneumoniae] as the cause of diseases classified elsewhere; D53.9 Nutritional anemia, unspecified; E78.5 Hyperlipidemia, unspecified; Z20.822 Contact with and (suspected) exposure to COVID-19; Z79.01 Long term (current) use of anticoagulants; Z79.899 Other long term (current) drug therapy
CPT/HCPCS: 36415; 71045; 73060; 76700; 80048; 80053; 80076; 81001; 81596; 82272; 82607; 82728; 82746; 82784; 82947; 83540; 83615; 83690; 83735; 83880; 83883; 84165; 84484; 84550; 85025; 85027; 85045; 85610; 86334; 86850; 86880; 86900; 86901; 86920; 86922; 87086; 87088; 87186; 87635; 93005; 93306; 93970; 97110; 97116; 97162; 99283; 99285; J0696; J1940; J3475; P9016

== ENCOUNTER 2021-01-12 12:43 | Outpatient (REF) | payer MEDICARE, OTHER, SELFPAY ==
[2021-01-12 09:28] LABS: MANUAL DIFF FLAG NO
[2021-01-12 09:35] LABS: INTERNATIONAL NORM RATIO 2.5 (0.9-1.1)
[2021-01-12 10:00] LABS: Basophils Percent Auto 0.7 % (0-2); Eosinophils Absolute Auto 0.3 X10*3/uL (0.0-0.4); Eosinophils Percent Auto 4.8 % (0-4); Hematocrit 36.4 % (37.0-47.0); Imm Gran Abs Auto 0.03 X10*3/uL (0.00-0.03); Imm Gran Pct Auto 0.5 % (0.0-0.4); Lymphocytes Absolute Auto 1.4 X10*3/uL (1.2-4.9); Lymphocytes Percent Auto 25.8 % (20-40); Mean Corpuscular Volume 102.5 fL (80.0-98.0); Mean Platelet Volume 10.8 fL (9.4-12.3); Monocytes Absolute Auto 0.9 X10*3/uL (0.1-1.2); Monocytes Percent Auto 15.6 % (2-11); Neutrophils Absolute Auto 2.9 x10*3/uL (2.0-8.3); Neutrophils Percent Auto 52.6 % (45-73); Platelet Count 215 X10*3/uL (160-400); Red Blood Count 3.55 X10*6/uL (4.20-5.50); Red Cell Distribution Width 19.1 % (11.0-16.0); White Blood Count 5.5 X10*3/uL (4.8-10.8)
[2021-01-12 10:01] LABS: Mean Corpuscular HGB Conc 30.2 g/dl (31.0-35.0)
[2021-01-12 10:05] LABS: Alanine Aminotransferase 13 U/L (0-31); Albumin Level 3.8 g/dL (3.5-5.0); Alkaline Phosphatase 73 U/L (39-117); Anion Gap 11 (12-20); Aspartate Amino Transferase 20 U/L (5-31); Bilirubin Total 0.8 mg/dL (0.0-1.0); Blood Urea Nitrogen 29 mg/dL (9-16); Calcium 9.4 mg/dL (8.4-10.2); Carbon Dioxide 31 mmol/L (22-29); Chloride 103 mmol/L (96-108); Cholesterol 178 mg/dL; Estimated Glomerular Filt Rate > 60; Glucose Random 109 mg/dL (60-115); HDL Cholesterol 35 mg/dL; LDL Cholesterol Calculated 113 mg/dl; Potassium 4.4 mmol/L (3.3-5.1); Sodium 141 mmol/L (135-145); Total Protein 7.2 g/dL (6.5-8.0); Triglycerides 150 mg/dL
[2021-01-12 10:27] LABS: Thyroid Stimulating Hormone 0.62 uIU/mL (0.32-4.0); Vitamin D 25-OH Total 48.8 ng/mL (>30)
== END 2021-01-12 12:44 | disposition home or self-care (01) ==
LOC: HO.LHD 12:43
PROVIDERS: Visit Provider Internal Medicine
DX: I48.0 Paroxysmal atrial fibrillation (principal); E78.00 Pure hypercholesterolemia, unspecified
CPT/HCPCS: 36415; 80053; 80061; 82306; 84443; 85025; 85610

== ENCOUNTER 2021-01-19 11:08 | Outpatient (REF) | payer MEDICARE, OTHER, SELFPAY ==
[2021-01-19 11:12] LABS: INTERNATIONAL NORM RATIO 1.6 (0.9-1.1); Prothrombin Time 18.4 SEC (9.9-13.0)
== END 2021-01-19 11:09 | disposition home or self-care (01) ==
LOC: HO.LHD 11:08
PROVIDERS: Visit Provider Internal Medicine
DX: I48.0 Paroxysmal atrial fibrillation (principal)
CPT/HCPCS: 36415; 85610

== ENCOUNTER 2021-01-26 07:18 | Outpatient (REF) | payer MEDICARE, OTHER, SELFPAY ==
[2021-01-26 10:43] LABS: INTERNATIONAL NORM RATIO 2.1 (0.9-1.1); Prothrombin Time 24.7 SEC (9.9-13.0)
== END 2021-01-26 07:19 | disposition home or self-care (01) ==
LOC: HO.LHD 07:18
PROVIDERS: Visit Provider Internal Medicine
DX: I48.0 Paroxysmal atrial fibrillation (principal)
CPT/HCPCS: 36415; 85610

== ENCOUNTER 2021-01-29 09:02 | Outpatient (REF) | payer MEDICARE, OTHER, SELFPAY ==
--- NOTE | ~2021-01-29 | CT_ITS ---
EXAMINATION: CT ABDOMEN AND PELVIS WITH CONTRAST CLINICAL INFORMATION: Follow-up on retroperitoneal lymphadenopathy. COMPARISON: CT abdomen and pelvis 07/13/2020 TECHNIQUE: Multidetector volumetric images were obtained from the superior aspect of the liver through the pubic symphysis following administration 85 mL of Omnipaque 350 intravenous contrast. Sagittal and coronal reformatted images were obtained on the technologist's workstation. Oral contrast: No This CT examination was performed using dose optimization techniques as appropriate, variously including the following: *Automated exposure control *Adjustment of mA and/or kV according to patient size (this includes techniques or standardized protocols for targeted exams where dose is matched to indication/reason for exam; i.e. extremities or head) *Use of iterative reconstruction technique DLP: 1024 mGy-cm FINDINGS: LUNG BASES: Mild atelectatic changes or scarring seen in the left lung base. The heart size is enlarged with mitral valve calcification. LIVER, GALLBLADDER, AND BILIARY TREE: The liver is normal in size, shape, and attenuation. No focal hepatic lesion or biliary ductal dilatation is present. There are multiple radiopaque gallstones in a contracted gallbladder. No wall thickening seen. PANCREAS: Unremarkable. SPLEEN: The spleen is normal size. There is a 1.30 cm lesion along the tip of the spleen likely a small cyst or hemangioma. ADRENAL GLANDS: Unremarkable. KIDNEYS AND URETERS: The kidneys are lobulated but normal size. There is diffuse thinning of the kidney cortex. There is a nonenhancing cyst upper pole right kidney and lower pole left kidney which appear stable. There are obstructive 2 mm radiopaque calculi mid pole right kidney and lower pole left kidney. No caliectasis or hydronephrosis seen. BLADDER: The bladder is nondistended. No bladder wall thickening seen. GASTROINTESTINAL TRACT: There is scattered stool, oral contrast, diverticuli and gas seen throughout the colon without distention. There is no diverticulitis or obstruction. The small bowel loops are normal caliber. Appendix is not visualized with certainty. ABDOMINAL WALL: No significant hernia is appreciated. LYMPH NODES: There are small para-aortic retroperitoneal lymph nodes measuring 1.7 cm and smaller, similar to previous study. VASCULAR: Unremarkable. PELVIC VISCERA: Mild arthroscopic calcification of abdominal aorta and common iliac vessels are present. OSSEOUS STRUCTURES: There are degenerative disc changes with vacuum disc phenomena L5-S1 and lower dorsal spine. There is moderate ventral spondylosis lower dorsal spine. There is mild compression fracture deformity L2 vertebra, stable. CT/CT abdomen pelvis w con IMPRESSION: Small shotty retroperitoneal lymphadenopathy is stable. Retroperitoneal lymph node measures 1.7 cm in the para-aortic space. Cholelithiasis with contracted gallbladder is stable. Colonic diverticulosis without diverticulitis and mild constipation is stable. Bilateral small 2 mm renal calculi and cysts are stable.
[2021-01-29] MEDS: iohexoL 350 MG/ML 100 ML INFUS..BTL IV (11:57)
[2021-01-29] MEDS: Barium Sulfate Oral (Mocha) 450 ML ORAL.SUSP 900 ML PO (12:00)
== END 2021-01-29 09:03 | disposition home or self-care (01) ==
LOC: HO.CT 09:02
PROVIDERS: PCP Internal Medicine; Visit Provider Internal Medicine Medical Oncology
DX: R59.9 Enlarged lymph nodes, unspecified (principal)
CPT/HCPCS: 74177; Q9967

== ENCOUNTER 2021-02-02 07:48 | Outpatient (REF) | payer MEDICARE, OTHER, SELFPAY ==
[2021-02-02 09:53] LABS: INTERNATIONAL NORM RATIO 1.2 (0.9-1.1); Prothrombin Time 13.6 SEC (9.9-13.0)
== END 2021-02-02 07:49 | disposition home or self-care (01) ==
LOC: HO.LHD 07:48
PROVIDERS: Visit Provider Internal Medicine
DX: I48.0 Paroxysmal atrial fibrillation (principal); Z79.01 Long term (current) use of anticoagulants
CPT/HCPCS: 36415; 85610

== ENCOUNTER 2021-02-09 07:26 | Outpatient (REF) | payer MEDICARE, OTHER, SELFPAY ==
[2021-02-09 09:56] LABS: INTERNATIONAL NORM RATIO 1.6 (0.9-1.1); Prothrombin Time 18.4 SEC (9.9-13.0)
== END 2021-02-09 07:27 | disposition home or self-care (01) ==
LOC: HO.LHD 07:26
PROVIDERS: Visit Provider Internal Medicine
DX: I48.0 Paroxysmal atrial fibrillation (principal)
CPT/HCPCS: 36415; 85610

== ENCOUNTER 2021-02-16 10:55 | Outpatient (REF) | payer MEDICARE, OTHER, SELFPAY ==
[2021-02-16 11:08] LABS: Appearance Urine CLEAR; Color Urine YELLOW; Glucose Urine UA NEG (NEG); Leukocyte Esterase Urine TRACE (NEG); Nitrite Urine POS (NEG); PH 5.5 (5.0-8.0); Specific Gravity - Urine 1.025 (1.005-1.025); Urine Blood TRACE (NEG); Urine Ketones NEG (NEG); Urine Protein TRACE MG/DL (NEG-TRACE)
[2021-02-16 11:09] LABS: INTERNATIONAL NORM RATIO 1.8 (0.9-1.1); Prothrombin Time 21.1 SEC (9.9-13.0)
[2021-02-16 11:13] LABS: Blood Urea Nitrogen 15 mg/dL (9-16); Chloride 108 mmol/L (96-108); Estimated Glomerular Filt Rate > 60
[2021-02-16 11:28] LABS: Bacteria Urine 4+ /LPF; RBC Urine 0-2 /HPF (0); Squamous Epithelial Cell Urine 1+ /LPF
[2021-02-16 14:06] LABS: Anion Gap 12 (12-20); Calcium 9.3 mg/dL (8.4-10.2); Carbon Dioxide 28 mmol/L (22-29); Glucose Random 131 mg/dL (60-115); Potassium 3.9 mmol/L (3.3-5.1); Sodium 144 mmol/L (135-145)
== END 2021-02-16 10:56 | disposition home or self-care (01) ==
LOC: HO.LHD 10:55
PROVIDERS: Absent Provider Student in an Organized Health Care Education/Training Program; Referring Provider Physician Assistant Medical; Visit Provider Internal Medicine
DX: I50.30 Unspecified diastolic (congestive) heart failure (principal); I48.0 Paroxysmal atrial fibrillation; I48.91 Unspecified atrial fibrillation; I48.19 Other persistent atrial fibrillation; Z79.01 Long term (current) use of anticoagulants
CPT/HCPCS: 36415; 80048; 81001; 85610

== ENCOUNTER 2021-02-23 10:33 | Outpatient (REF) | payer MEDICARE, OTHER, SELFPAY ==
[2021-02-23 10:21] LABS: INTERNATIONAL NORM RATIO 1.6 (0.9-1.1); Prothrombin Time 18.8 SEC (9.9-13.0)
== END 2021-02-23 10:34 | disposition home or self-care (01) ==
LOC: HO.LHD 10:33
PROVIDERS: Visit Provider Internal Medicine
DX: I48.0 Paroxysmal atrial fibrillation (principal)
CPT/HCPCS: 36415; 85610

== ENCOUNTER 2021-03-02 08:34 | Outpatient (REF) | payer MEDICARE, OTHER, SELFPAY ==
[2021-03-02 10:36] LABS: INTERNATIONAL NORM RATIO 1.6 (0.9-1.1); Prothrombin Time 18.1 SEC (9.9-13.0)
== END 2021-03-02 08:35 | disposition home or self-care (01) ==
LOC: HO.LHD 08:34
PROVIDERS: Visit Provider Internal Medicine
DX: I48.0 Paroxysmal atrial fibrillation (principal)
CPT/HCPCS: 36415; 85610

== ENCOUNTER 2021-03-09 11:47 | Outpatient (REF) | payer MEDICARE, OTHER, SELFPAY ==
[2021-03-09 10:29] LABS: MANUAL DIFF FLAG NO
[2021-03-09 10:39] LABS: Appearance Urine CLOUDY; Color Urine YELLOW; Glucose Urine UA NEG (NEG); Leukocyte Esterase Urine TRACE (NEG); Nitrite Urine NEG (NEG); PH 7.5 (5.0-8.0); Specific Gravity - Urine 1.015 (1.005-1.025); Urine Blood NEG (NEG); Urine Ketones NEG (NEG); Urine Protein TRACE MG/DL (NEG-TRACE)
[2021-03-09 10:45] LABS: INTERNATIONAL NORM RATIO 1.7 (0.9-1.1); Prothrombin Time 19.6 SEC (9.9-13.0)
[2021-03-09 11:09] LABS: Creatinine Urine 91.22 mg/dL; Microalbum/Creatinine Ratio Ur 121.6 ug/mg cr
[2021-03-09 11:09] LABS: Alanine Aminotransferase 12 U/L (0-31); Albumin Level 3.5 g/dL (3.5-5.0); Alkaline Phosphatase 75 U/L (39-117); Anion Gap 11 (12-20); Aspartate Amino Transferase 16 U/L (5-31); Bilirubin Total 0.8 mg/dL (0.0-1.0); Blood Urea Nitrogen 22 mg/dL (9-16); Calcium 9.1 mg/dL (8.4-10.2); Carbon Dioxide 30 mmol/L (22-29); Chloride 108 mmol/L (96-108); Estimated Glomerular Filt Rate > 60; Glucose Random 144 mg/dL (60-115); Potassium 4.1 mmol/L (3.3-5.1); Sodium 145 mmol/L (135-145); Total Protein 6.8 g/dL (6.5-8.0)
[2021-03-09 11:11] LABS: Basophils Percent Auto 0.5 % (0-2); Eosinophils Absolute Auto 0.2 X10*3/uL (0.0-0.4); Eosinophils Percent Auto 4.4 % (0-4); Hematocrit 33.5 % (37.0-47.0); Hemoglobin 10.1 g/dl (12.0-16.0); Imm Gran Abs Auto 0.01 X10*3/uL (0.00-0.03); Imm Gran Pct Auto 0.2 % (0.0-0.4); Lymphocytes Absolute Auto 0.8 X10*3/uL (1.2-4.9); Lymphocytes Percent Auto 20.4 % (20-40); Mean Corpuscular Hemoglobin 31.2 pg (27.0-33.0); Mean Corpuscular Volume 103.4 fL (80.0-98.0); Mean Platelet Volume 10.6 fL (9.4-12.3); Monocytes Absolute Auto 0.3 X10*3/uL (0.1-1.2); Monocytes Percent Auto 7.1 % (2-11); Neutrophils Absolute Auto 2.7 x10*3/uL (2.0-8.3); Neutrophils Percent Auto 67.4 % (45-73); Platelet Count 144 X10*3/uL (160-400); Red Blood Count 3.24 X10*6/uL (4.20-5.50); Red Cell Distribution Width 17.2 % (11.0-16.0); White Blood Count 4.1 X10*3/uL (4.8-10.8)
[2021-03-09 11:12] LABS: Mean Corpuscular HGB Conc 30.1 g/dl (31.0-35.0)
[2021-03-09 11:55] LABS: Bacteria Urine 4+ /LPF; Squamous Epithelial Cell Urine 2+ /LPF; Urine Talc Crystals 2+ /LPF
== END 2021-03-09 11:48 | disposition home or self-care (01) ==
LOC: HO.LHD 11:47
PROVIDERS: Internal Medicine Medical Oncology; Visit Provider Internal Medicine
DX: I48.0 Paroxysmal atrial fibrillation (principal); E11.65 Type 2 diabetes mellitus with hyperglycemia; D64.9 Anemia, unspecified
CPT/HCPCS: 36415; 80053; 81001; 82043; 85025; 85610

== ENCOUNTER 2021-03-16 08:39 | Outpatient (REF) | payer MEDICARE, OTHER, SELFPAY ==
[2021-03-16 11:52] LABS: INTERNATIONAL NORM RATIO 1.8 (0.9-1.1); Prothrombin Time 21.2 SEC (9.9-13.0)
== END 2021-03-16 08:40 | disposition home or self-care (01) ==
LOC: HO.LHD 08:39
PROVIDERS: Visit Provider Internal Medicine
DX: I48.0 Paroxysmal atrial fibrillation (principal)
CPT/HCPCS: 36415; 85610

== ENCOUNTER 2021-03-24 07:58 | Outpatient (REF) | payer MEDICARE, OTHER, SELFPAY ==
[2021-03-23 11:09] LABS: Appearance Urine HAZY; Color Urine YELLOW; Glucose Urine UA NEG (NEG); Leukocyte Esterase Urine NEG (NEG); Nitrite Urine POS (NEG); Urine Blood TRACE (NEG); Urine Ketones NEG (NEG); Urine Protein TRACE MG/DL (NEG-TRACE)
[2021-03-23 11:25] LABS: INTERNATIONAL NORM RATIO 1.7 (0.9-1.1)
[2021-03-23 11:44] LABS: Creatinine Urine 115.25 mg/dL
[2021-03-23 11:51] LABS: Urine Talc Crystals 3+ /LPF
[2021-03-23 11:52] LABS: Bacteria Urine 4+ /LPF; Squamous Epithelial Cell Urine 2+ /LPF
[2021-03-23 11:53] LABS: RBC Urine 0-2 /HPF (0); WBC Urine 0-2 /HPF (0-4)
== END 2021-03-24 07:59 | disposition home or self-care (01) ==
LOC: HO.LHD 07:58
PROVIDERS: Visit Provider Internal Medicine
DX: I48.0 Paroxysmal atrial fibrillation (principal)
CPT/HCPCS: 36415; 81001; 85610

== ENCOUNTER 2021-03-30 07:01 | Outpatient (REF) | payer MEDICARE, OTHER, SELFPAY ==
[2021-03-30 10:33] LABS: INTERNATIONAL NORM RATIO 1.6 (0.9-1.1)
[2021-03-30 10:58] LABS: Appearance Urine CLOUDY; Color Urine YELLOW; Glucose Urine UA NEG (NEG); Leukocyte Esterase Urine NEG (NEG); Nitrite Urine POS (NEG); Urine Blood NEG (NEG); Urine Ketones NEG (NEG); Urine Protein TRACE MG/DL (NEG-TRACE)
[2021-03-30 11:09] LABS: Bacteria Urine 4+ /LPF; RBC Urine 0-2 /HPF (0); Squamous Epithelial Cell Urine 1+ /LPF; Urine Talc Crystals 2+ /LPF
== END 2021-03-30 07:02 | disposition home or self-care (01) ==
LOC: HO.LHD 07:01
PROVIDERS: Visit Provider Internal Medicine
DX: I48.0 Paroxysmal atrial fibrillation (principal); N39.0 Urinary tract infection, site not specified
CPT/HCPCS: 36415; 81001; 85610

== ENCOUNTER 2021-04-06 07:54 | Outpatient (REF) | payer MEDICARE, OTHER, SELFPAY | END 2021-04-06 07:55 | disposition home or self-care (01) | LOC: HO.LHD 07:54 | PROVIDERS: Visit Provider Internal Medicine | DX: Z13.89 Encounter for screening for other disorder (principal) ==

== ENCOUNTER 2021-04-06 08:48 | Inpatient (IN) | payer MEDICARE, OTHER, SELFPAY ==
[2021-04-06] VITALS (7 sets, daily range): BP systolic 110–153; BP diastolic 46–88; PULSE 63–92; RESP 13–20; TEMP 36.6–37.3; O2SAT 97–99; BMI 42.5
--- NOTE | ~2021-04-06 | US_ITS ---
EXAMINATION: US VENOUS ULTRASOUND WITH DOPPLER LOWER EXTREMITY, BILATERAL CLINICAL INFORMATION: SOB and chest pain. Leg edema. COMPARISON: None TECHNIQUE: Ultrasound of the deep veins is performed from the hip to the calf with compression sonography and color and pulse Doppler assessment. Spectral analysis with color-flow imaging is performed. FINDINGS: RIGHT: There is normal venous compression and respiratory variation and augmented flow. The visualized common femoral vein, superficial femoral vein, profunda femoral vein, popliteal vein, and the trifurcation region shows no evidence of deep venous thrombosis. There is no significant popliteal fossa cyst. LEFT: There is normal venous compression and respiratory variation and augmented flow. The visualized common femoral vein, superficial femoral vein, profunda femoral vein, popliteal vein, and the trifurcation region shows no evidence of deep venous thrombosis. There is no significant popliteal fossa cyst. If the patient's symptoms persist, followup ultrasound in 5 days 7 days might be of value to exclude proximal propagation from a non-visualized calf vein. US/US venous duplex LE BI IMPRESSION: No DVT demonstrated in bilateral lower extremity.
--- NOTE | ~2021-04-06 | CT_ITS ---
EXAMINATION: CT ANGIOGRAM OF THE CHEST WITH AND WITHOUT CONTRAST (CT PULMONARY ANGIOGRAM FOR PE) CLINICAL INFORMATION: Reason for Exam hx of a fib INR low c sob/le edema ? pe COMPARISON: None TECHNIQUE: Prior to contrast administration, noncontrast localization images were obtained. Subsequently, multidetector volumetric imaging was performed from the thoracic inlet to below the diaphragms following the administration of 80 mL Omnipaque 350 intravenous contrast. No contrast reaction reported Sagittal, coronal, and MIP oblique sagittal reformatted images were obtained on the CT workstation, uploaded to PACS, and reviewed. This CT examination was performed using dose optimization techniques as appropriate, variously including the following: *Automated exposure control *Adjustment of mA and/or kV according to patient size (this includes techniques or standardized protocols for targeted exams where dose is matched to indication/reason for exam; i.e. extremities or head) *Use of iterative reconstruction technique Total exam dose-length product 423 mGy-cm FINDINGS: QUALITY OF STUDY/CONTRAST BOLUS: Satisfactory. PULMONARY ARTERIES: No central or segmental pulmonary emboli. THORACIC AORTA: No aneurysm or dissection. LUNG: The lungs are well-expanded with dependent atelectatic changes posterior segment right upper lobe, superior segment right lower lobe and bilateral basilar segments. No pulmonary nodule not, mass or consolidation seen. PLEURA: There is no evidence of pleural effusion or thickening. MEDIASTINUM: The heart size enlarged. There is no pericardial effusion. There are coronary artery calcifications present. Central trachea and the bronchi widely patent. There is a hypodense 2.4 cm nodule right thyroid lobe. The left thyroid lobe is unremarkable. No evidence of septal bowing or right heart strain. CHEST WALL/AXILLA: No axillary or internal mammary lymphadenopathy. OSSEOUS STRUCTURES: There is exaggerated thoracic kyphosis. The vertebral heights, alignment and disc heights is normal. There is mild ventral spondylosis. No lytic or sclerotic process. UPPER ABDOMEN: Visualized liver, spleen, pancreas and bilateral adrenal glands are unremarkable. No reflux of contrast into the hepatic veins to suggest elevated right heart pressures. CT/CT angio chest PE protocol IMPRESSION: No evidence of PE. No evidence aortic dissection or aneurysm. Mild cardiomegaly with bibasilar and right upper lobe posterior segmental dependent atelectatic changes. VTE: negative
--- NOTE | ~2021-04-06 | CT_ITS ---
EXAMINATION: XR CHEST CT BRAIN WITHOUT CONTRAST CLINICAL INFORMATION: SOB and chest pain. COMPARISON: None TECHNIQUE: Chest 2 views. 5 mm thin axial and reformatted 2 mm thin sagittal and coronal images of brain were obtained. DLP: 653 mGy-cm. FINDINGS: CHEST X-RAY: Both lungs are fairly well-expanded with increased bilateral parahilar markings likely interstitial edema or pneumonitis. Heart size enlarged. There is a soft tissue density overlying the right parahilar region. There is no pleural effusion. No gross bony abnormality seen. BRAIN: There is no acute intra-axial, extra-axial bleed, masses or midline shift. There is no acute infarction in evolution. There is no edema. The [place] to white matter differentiation is maintained normal. Bone windows reveal no calvarial abnormality. There is a small 7 mm soft tissue scalp lesion left frontal bone and a 1.5 cm right occipital lobe scalp lesion with central calcification. Differential diagnosis neurofibroma versus sebaceous cyst. Bilateral paranasal sinuses and mastoid air cells are well-aerated. CT/CT head/brain wo con IMPRESSION: Bilateral parahilar interstitial edema or pneumonitis. Prominent right parahilar soft tissue density question lesion. Mild cardiomegaly. No acute intracranial process seen. Sebaceous cyst versus neurofibroma lesions in the scalp.
--- NOTE | 2021-04-06 08:56 | ECG_ITS ---
Test Reason : SHORTNESS OF BREATH Blood Pressure : / mmHG Vent. Rate : 081 BPM Atrial Rate : 000 BPM P-R Int : 000 ms QRS Dur : 148 ms QT Int : 454 ms P-R-T Axes : 000 088 -30 degrees QTc Int : 527 ms Atrial fibrillation Right bundle branch block T wave abnormality, consider inferior ischemia Abnormal ECG When compared with ECG of 01-JAN-2021 18:07, No significant change was found Referred By: Izabela Olvera Electronically Signed By:CARLOS NIX
--- NOTE | 2021-04-06 09:30 | ED.SOB ---
HPI - SOB/Dyspnea General Chief Complaint: General Medical Stated Complaint: SUDDEN ONSET SOB,BODYACHES,CHEST PRESSURE Time Seen by Provider: 04/06/21 08:56 Source: patient and EMS Mode of arrival: EMS Limitations: no limitations History of Present Illness HPI Narrative: 80-year-old female with a PMHx of atrial fibrillation currently on warfarin reports she is taking daily as prescribed, CHF on Lasix, nonrheumatic aortic valve stenosis, diabetes type 2, pulmonary HTN, HTN, HLD, anemia, obesity, rheumatoid arthritis, anxiety, depression and urinary incontinence presenting to the ED via EMS with complaints of body aches, dizziness, headache, nasal congestion, cough, dyspnea on exertion, orthopnea, chest pressure and worsening lower extremity edema over the past 2 days. She denies any measured fevers, neck pain/stiffness, sore throat, hemoptysis, nausea/vomiting, abdominal pain, back pain, dysuria, hematuria, palpitations, calf tenderness, recent travel or sick contacts or any other symptoms complaints or concerns at this time. MD elicited complaint: shortness of breath, cough, pain with inspiration and chest pain Pertinent past history: congestive heart failure and diabetes Onset (ago): day(s) Context: occurred during exertion Timing: constant and progressively worsening Severity: moderate Exacerbating factors: lying flat, exertion, movement, coughing, inspiration and talking Relieving factors: oxygen Related Data Home Medications Medication Instructions Recorded Confirmed folic acid 1 mg tablet 1 mg PO DAILY 05/18/20 01/02/21 warfarin 1 mg tablet 2 mg PO DAILY 09/01/20 01/02/21 furosemide 40 mg tablet 1 tab PO QAM 01/01/21 01/02/21 acetaminophen 500 mg tablet 500 mg PO BEDTIME 01/02/21 01/02/21 cholecalciferol (vitamin D3) 1,250 1,250 mcg PO PICKARD 01/02/21 01/02/21 mcg (50,000 unit) capsule Previous Rx's Medication Instructions Recorded blood sugar diagnostic (OneTouch #250 ea 02/29/20 Ultra Blue Test Strip) sertraline 50 mg tablet 50 mg PO DAILY 30 Days #30 tab 11/07/20 amlodipine 10 mg tablet 10 mg PO DAILY #30 tab 01/09/21 cyanocobalamin (vitamin B-12) 1,000 mcg PO DAILY #30 tab 01/09/21 1,000 mcg tablet (Vitamin B-12) metoprolol tartrate 25 mg tablet 12.5 mg PO BID #60 tab 01/09/21 spironolactone 25 mg tablet 12.5 mg PO DAILY #30 tab 01/09/21 blood-glucose meter (OneTouch #1 ea 02/16/21 Ultra2 Meter) trazodone 50 mg tablet 25 mg PO BEDTIME PRN #90 tab 04/06/21 Allergies Allergy/AdvReac Type Severity Reaction Status Date / Time shellfish derived Allergy Unknown itchy Verified 11/07/20 15:11 procaine [From Novocain] AdvReac Unknown makes Verified 11/07/20 15:11 patient itchy,puffy Review of Systems Review of Systems: Constitutional : No Weight loss, No Fever, + Chills, No Night Sweats, + Fatigue, + Malaise ENT/Mouth : No Hearing loss, No Ear Pain, + Nasal Congestion, No Sinus Pain, No Hoarseness, No sore throat, No Rhinorrhea, No Swallowing Difficulty Eyes: No Eye Pain, No Swelling, No Redness, No Foreign Body, No Discharge, No Vision Changes Cardiovascular : + Chest Pain, + SOB, + Dyspnea on Exertion, + Orthopnea, + Edema, No Palpitations Respiratory : + Cough, No Sputum, No Wheezing, No Smoke Exposure, + Dyspnea Gastrointestinal : No Nausea, No Vomiting, No Diarrhea, No Constipation, No abdominal Pain, No Hematochezia, No Melena Genitourinary : no irregular bleeding, No Dysuria, No Urinary Frequency, No Hematuria, No Urinary Incontinence, No Urgency, No Flank Pain, No Urinary Flow Changes, No Hesitancy Musculoskeletal : No joint pain, No Myalgias, No Joint Swelling Skin : No Skin Lesions, No rash Neuro : No Weakness, No Numbness, No Paresthesias, No Loss of Consciousness, + Dizziness, + Headache Psych : No Anxiety/Panic, No Depression, No SI/HI/AH/VH, No Social Issues, Heme/Lymph: No Bruising, No Bleeding,No Lymphadenopathy Endocrine : No Polyuria, No Polydipsia, No Temperature Intolerance Yes all other systems are reviewed and are negative [facility] Past Medical History Attestation statement: The following information was validated with the patient. Medical History (HFpEF) heart failure with preserved ejection fraction Acute pyelonephritis Anxiety and depression Atrial fibrillation CHF exacerbation Chronic anticoagulation CVA (cerebral vascular accident) Hypercholesterolemia Hypertension Lumbar vertebral fracture Obesity (BMI 30-39.9) Pneumonia Rheumatoid arthritis Sepsis TIA (transient ischemic attack) Type 2 diabetes mellitus with hyperglycemia Uterine cancer Surgical History History of appendectomy History of colonoscopy History of left knee replacement History of right knee joint replacement S/P ANTONIO-BSO Family History Family History Father Diabetes CAD (coronary artery disease) Mother Diabetes Hypertension Perforated ulcer Sister Diabetes Social History Social History Household Members: Spouse Housing: House Do you presently have visiting nurse or other home services: Yes Alcohol intake: never Patient Tobacco Use Status: Never used Tobacco e-Cigarette/Vaping Use: Never Used Second Hand Smoke Exposure: No Use of substances other than those prescribed or required for medical reasons: No Advance Directives: Yes Advance Directives on File: Yes Advance Directives Date on File: 05/17/20 service: No Current occupational status: retired Physical Exam Vital Signs: Vital Signs: Last Vital Signs Temp 97.9 F 04/06/21 13:54 Pulse 74 04/06/21 13:54 Resp 17 04/06/21 13:54 BP 122/46 L 04/06/21 13:54 Pulse Ox 99 04/06/21 13:54 BMI result Body Mass Index 42.5 vital signs have been reviewed as normal and appeared to be correct. Blood pressure 153/79. Heart rate normal. Respiration rate normal. Temperature normal. Oxygen saturation 98 on 2L NC oxygen. Appearance: Alert. Oriented X3. No acute distress. Head: Normal external exam. Normocephalic. Atraumatic. Eyes: PERRLA. EOMI. Conjunctiva and sclera normal. Eyelids normal. ENT: EAC normal. TM's Normal. No septal hematoma noted. No hemotympanum noted. Pharynx normal. Uvula midline. Moist mucous membranes. No lesions/ulcerations or masses noted on the tongue. Normal voice. No trismus noted. No drooling noted. No muffled voice noted. Neck: Normal inspection. Neck supple. FROM. No adenopathy. Thyroid Normal. No tracheal deviation noted. No crepitus is noted. No meningeal signs. No neck mass noted. No signs of trauma noted. CVS: Normal heart rate and rhythm. Heart sound normal. Pulses normal throughout. No murmurs/rales/gallops. Respiratory: No respiratory distress. Painless inspiration. Breath sounds normal. No wheezes/rales/rhonchi noted. Chest nontender. No crepitus is noted. No signs of trauma noted. No accessory muscle usage noted or decreased air movement noted. No signs of trauma. Abdomen: Soft and nontender. Bowel sounds normal in all 4 quadrants. No distention noted. No organomegaly noted. No visible injury noted. Back: Full range of motion noted. Nontender. No signs of trauma. Patient neuro intact bilaterally and distally on all 4 extremities. Patient's reflexes intact bilaterally and distally on all 4 extremities. No rashes/lesion/induration/fluctuance or signs of infection noted. Skin: Skin warm and dry. Normal skin color. Normal skin turgor. No rashes/lesions/lacerations noted. Extremities: Patient has +3 lower extremity pitting edema. She reports calf tenderness bilaterally. Her bilateral lower extremities mildly erythematous. No streaking/induration/fluctuance noted. Extremities exhibit normal range of motion and nontender. Neuro: Oriented X 3. No motor deficit. No sensory deficit. Reflexes normal. Normal steady gait. No focal neuro deficits noted. CN's II-XII intact bilaterally? Vascular: + radial pulses/+ 2 distal pedal pulses/+2 dorsalis pedis b/l. Normal cap refill. No cyanosis noted to upper extremity nails and lower extremity toes nails. Course Course Course Narrative: 9am - 80-year-old female with a PMHx of atrial fibrillation currently on warfarin reports she is taking daily as prescribed, CHF on Lasix, nonrheumatic aortic valve stenosis, diabetes type 2, pulmonary HTN, HTN, HLD, anemia, obesity, rheumatoid arthritis, anxiety, depression and urinary incontinence presenting to the ED via EMS with complaints of body aches, dizziness, headache, nasal congestion, cough, dyspnea on exertion, orthopnea, chest pressure and worsening lower extremity edema over the past 2 days. She denies any measured fevers, neck pain/stiffness, sore throat, hemoptysis, nausea/vomiting, abdominal pain, back pain, dysuria, hematuria, palpitations, calf tenderness, recent travel or sick contacts or any other symptoms complaints or concerns at this time. Plan: Labs, EKG, regulatory auditor, CT scan of brain without contrast, chest x-ray, COVID swab, flu swab, UA. Provide a breathing treatment. Provide a L of IV fluids and re-evaluate. Reevaluation(s) Reevaluation #1: - labs reviewed and patient has the low white blood cell count at 3000 which is similar compared to priors/chronic. - Mild baseline anemia similar compared to prior. - PT INR 17.4/1.2 which is a little low although similar compared to prior P - anion gap 10. - Troponin 9.4. - BNP 423. - otherwise all other labs are within normal limits. - EKG shows atrial fibrillation with a ventricular rate of 81 no acute ischemic changes are noted and similar when compared to prior EKG. - therefore at this time awaiting CT scan of brain, chest x-ray results. - due to patient's BNP being only [address] of chest for possible PE and a venous duplex ultrasound of bilateral lower extremity for possible DVT then re-evaluate Time: 11:19 Reevaluation #2: - patient appears to have UTI will obtain blood cultures and lactate and provide 2 g of Rocephin and re-evaluate. Time: 12:53 Reevaluation #3: - CTA negative negative for PE. Revealed mild cardiomegaly with bibasilar and right upper lobe posterior segmental dependent atelectatic changes otherwise no other acute processes. - her repeat troponin is 8.7. - lactic acidosis 3.8 due to hypoxia and not infection or severe Sepsis she is fluid overloaded therefore will give Lasix hold off on fluids. - therefore at this time will admit for CHF exacerbation with UTI. I discussed this case with Dr. Vieyra and he is admitting at this time. Time: 14:17 MDM - SOB/Dyspnea Medical Records Attestation: I reviewed the patient's medical records. Lab Data Attestation: I reviewed the patient's lab results. Result diagrams: 04/06/21 10:33 04/06/21 10:33 Labs: Lab Results 04/06/21 04/06/21 04/06/21 Range/Units 10:33 10:33 10:33 WBC 3.0 L (4.8-10.8) X10*3/uL RBC 3.12 L (4.20-5.50) X10*6/uL Hgb 9.9 L (12.0-16.0) g/dl Hct 31.6 L (37.0-47.0) % MCV 101.3 H (80.0-98.0) fL MCH 31.7 (27.0-33.0) pg MCHC 31.3 (31.0-35.0) g/dl RDW 18.9 H (11.0-16.0) % Plt Count 184 D (160-400) X10*3/uL MPV 9.8 (9.4-12.3) fL Immature Gran % (Auto) 0.3 (0.0-0.4) % Neut % (Auto) 53.2 (45-73) % Lymph % (Auto) 22.6 (20-40) % Preston % (Auto) 17.6 H (2-11) % Eos % (Auto) 5.6 H (0-4) % Baso % (Auto) 0.7 (0-2) % Lymph # (Auto) 0.7 L (1.2-4.9) X10*3/uL Preston # (Auto) 0.5 (0.1-1.2) X10*3/uL Eos # (Auto) 0.2 (0.0-0.4) X10*3/uL Baso # (Auto) 0.0 (0.0-0.2) X10*3/uL Abs Immat Gran (auto) 0.01 (0.00-0.03) X10*3/uL Absolute Neuts (auto) 1.6 L (2.0-8.3) x10*3/uL Absolute Nucleated RBC 0.000 (0.0-0.012) X10*3/uL Nucleated RBC % (auto) 0.0 (0.0-0.2) /100WBC PT 17.4 H (9.9-13.0) SEC INR 1.5 H (0.9-1.1) Sodium 142 (135-145) mmol/L Potassium 4.3 (3.3-5.1) mmol/L Chloride 107 (96-108) mmol/L Carbon Dioxide 29 (22-29) mmol/L Anion Gap 10 L (12-20) BUN 15 (9-16) mg/dL Creatinine 0.67 (0.5-1.4) mg/dL Estim Creat Clear Calc 67.7 Estimated GFR > 60 POC Glucose (60-115) mg/dL Random Glucose 100 (60-115) mg/dL Lactic Acid (0.5-2.0) mmol/L Calcium 9.2 (8.4-10.2) mg/dL Magnesium 1.6 (1.6-2.6) mg/dL Total Bilirubin 0.9 (0.0-1.0) mg/dL AST 18 (5-31) U/L ALT 11 (0-31) U/L Alkaline Phosphatase 76 (39-117) U/L Troponin I High Sens (<3.5-17.0) ng/L B-Natriuretic Peptide (<100) pg/mL Total Protein 7.1 (6.5-8.0) g/dL Albumin 3.7 (3.5-5.0) g/dL Urine Color Urine Appearance Urine pH (5.0-8.0) Ur Specific [place] (1.005-1.025) Urine Protein (NEG-TRACE) MG/DL Urine Glucose (UA) (NEG) MG/DL Urine Ketones (NEG) MG/DL Urine Blood (NEG) Urine Nitrite (NEG) Ur Leukocyte Esterase (NEG) Urine RBC (0) /HPF Urine WBC (0-4) /HPF Ur Squamous Epith Cells /LPF Urine Bacteria /LPF COVID-19 (LORRAINE) (Negative) COVID-19 Clin Com Influenza Type A (CASIMIRO) (Negative) Influenza Type B (CASIMIRO) (Negative) Influenza A & B Note 04/06/21 04/06/21 04/06/21 Range/Units 10:33 10:33 10:33 WBC (4.8-10.8) X10*3/uL RBC (4.20-5.50) X10*6/uL Hgb (12.0-16.0) g/dl Hct (37.0-47.0) % MCV (80.0-98.0) fL MCH (27.0-33.0) pg MCHC (31.0-35.0) g/dl RDW (11.0-16.0) % Plt Count (160-400) X10*3/uL MPV (9.4-12.3) fL Immature Gran % (Auto) (0.0-0.4) % Neut % (Auto) (45-73) % Lymph % (Auto) (20-40) % Preston % (Auto) (2-11) % Eos % (Auto) (0-4) % Baso % (Auto) (0-2) % Lymph # (Auto) (1.2-4.9) X10*3/uL Preston # (Auto) (0.1-1.2) X10*3/uL Eos # (Auto) (0.0-0.4) X10*3/uL Baso # (Auto) (0.0-0.2) X10*3/uL Abs Immat Gran (auto) (0.00-0.03) X10*3/uL Absolute Neuts (auto) (2.0-8.3) x10*3/uL Absolute Nucleated RBC (0.0-0.012) X10*3/uL Nucleated RBC % (auto) (0.0-0.2) /100WBC PT (9.9-13.0) SEC INR (0.9-1.1) Sodium (135-145) mmol/L Potassium (3.3-5.1) mmol/L Chloride (96-108) mmol/L Carbon Dioxide (22-29) mmol/L Anion Gap (12-20) BUN (9-16) mg/dL Creatinine (0.5-1.4) mg/dL Estim Creat Clear Calc Estimated GFR POC Glucose (60-115) mg/dL Random Glucose (60-115) mg/dL Lactic Acid (0.5-2.0) mmol/L Calcium (8.4-10.2) mg/dL Magnesium (1.6-2.6) mg/dL Total Bilirubin (0.0-1.0) mg/dL AST (5-31) U/L ALT (0-31) U/L Alkaline Phosphatase (39-117) U/L Troponin I High Sens 9.4 (<3.5-17.0) ng/L B-Natriuretic Peptide 423 H (<100) pg/mL Total Protein (6.5-8.0) g/dL Albumin (3.5-5.0) g/dL Urine Color Urine Appearance Urine pH (5.0-8.0) Ur Specific [place] (1.005-1.025) Urine Protein (NEG-TRACE) MG/DL Urine Glucose (UA) (NEG) MG/DL Urine Ketones (NEG) MG/DL Urine Blood (NEG) Urine Nitrite (NEG) Ur Leukocyte Esterase (NEG) Urine RBC (0) /HPF Urine WBC (0-4) /HPF Ur Squamous Epith Cells /LPF Urine Bacteria /LPF COVID-19 (LORRAINE) Negative (Negative) COVID-19 Clin Com See Note Influenza Type A (CASIMIRO) Negative (Negative) Influenza Type B (CASIMIRO) Negative (Negative) Influenza A & B Note See Note 04/06/21 04/06/21 04/06/21 Range/Units 11:30 11:36 13:14 WBC (4.8-10.8) X10*3/uL RBC (4.20-5.50) X10*6/uL Hgb (12.0-16.0) g/dl Hct (37.0-47.0) % MCV (80.0-98.0) fL MCH (27.0-33.0) pg MCHC (31.0-35.0) g/dl RDW (11.0-16.0) % Plt Count (160-400) X10*3/uL MPV (9.4-12.3) fL Immature Gran % (Auto) (0.0-0.4) % Neut % (Auto) (45-73) % Lymph % (Auto) (20-40) % Preston % (Auto) (2-11) % Eos % (Auto) (0-4) % Baso % (Auto) (0-2) % Lymph # (Auto) (1.2-4.9) X10*3/uL Preston # (Auto) (0.1-1.2) X10*3/uL Eos # (Auto) (0.0-0.4) X10*3/uL Baso # (Auto) (0.0-0.2) X10*3/uL Abs Immat Gran (auto) (0.00-0.03) X10*3/uL Absolute Neuts (auto) (2.0-8.3) x10*3/uL Absolute Nucleated RBC (0.0-0.012) X10*3/uL Nucleated RBC % (auto) (0.0-0.2) /100WBC PT (9.9-13.0) SEC INR (0.9-1.1) Sodium (135-145) mmol/L Potassium (3.3-5.1) mmol/L Chloride (96-108) mmol/L Carbon Dioxide (22-29) mmol/L Anion Gap (12-20) BUN (9-16) mg/dL Creatinine (0.5-1.4) mg/dL Estim Creat Clear Calc Estimated GFR POC Glucose 114 (60-115) mg/dL Random Glucose (60-115) mg/dL Lactic Acid (0.5-2.0) mmol/L Calcium (8.4-10.2) mg/dL Magnesium (1.6-2.6) mg/dL Total Bilirubin (0.0-1.0) mg/dL AST (5-31) U/L ALT (0-31) U/L Alkaline Phosphatase (39-117) U/L Troponin I High Sens 8.7 (<3.5-17.0) ng/L B-Natriuretic Peptide (<100) pg/mL Total Protein (6.5-8.0) g/dL Albumin (3.5-5.0) g/dL Urine Color YELLOW Urine Appearance HAZY Urine pH 6.5 (5.0-8.0) Ur Specific [place] 1.015 (1.005-1.025) Urine Protein NEG (NEG-TRACE) MG/DL Urine Glucose (UA) NEG (NEG) MG/DL Urine Ketones NEG (NEG) MG/DL Urine Blood TRACE (NEG) Urine Nitrite POS H (NEG) Ur Leukocyte Esterase TRACE H (NEG) Urine RBC 1-4 (0) /HPF Urine WBC 1-4 (0-4) /HPF Ur Squamous Epith Cells 2+ /LPF Urine Bacteria 4+ /LPF COVID-19 (LORRAINE) (Negative) COVID-19 Clin Com Influenza Type A (CASIMIRO) (Negative) Influenza Type B (CASIMIRO) (Negative) Influenza A & B Note 04/06/21 Range/Units 13:14 WBC (4.8-10.8) X10*3/uL RBC (4.20-5.50) X10*6/uL Hgb (12.0-16.0) g/dl Hct (37.0-47.0) % MCV (80.0-98.0) fL MCH (27.0-33.0) pg MCHC (31.0-35.0) g/dl RDW (11.0-16.0) % Plt Count (160-400) X10*3/uL MPV (9.4-12.3) fL Immature Gran % (Auto) (0.0-0.4) % Neut % (Auto) (45-73) % Lymph % (Auto) (20-40) % Preston % (Auto) (2-11) % Eos % (Auto) (0-4) % Baso % (Auto) (0-2) % Lymph # (Auto) (1.2-4.9) X10*3/uL Preston # (Auto) (0.1-1.2) X10*3/uL Eos # (Auto) (0.0-0.4) X10*3/uL Baso # (Auto) (0.0-0.2) X10*3/uL Abs Immat Gran (auto) (0.00-0.03) X10*3/uL Absolute Neuts (auto) (2.0-8.3) x10*3/uL Absolute Nucleated RBC (0.0-0.012) X10*3/uL Nucleated RBC % (auto) (0.0-0.2) /100WBC PT (9.9-13.0) SEC INR (0.9-1.1) Sodium (135-145) mmol/L Potassium (3.3-5.1) mmol/L Chloride (96-108) mmol/L Carbon Dioxide (22-29) mmol/L Anion Gap (12-20) BUN (9-16) mg/dL Creatinine (0.5-1.4) mg/dL Estim Creat Clear Calc Estimated GFR POC Glucose (60-115) mg/dL Random Glucose (60-115) mg/dL Lactic Acid 3.8 H* (0.5-2.0) mmol/L Calcium (8.4-10.2) mg/dL Magnesium (1.6-2.6) mg/dL Total Bilirubin (0.0-1.0) mg/dL AST (5-31) U/L ALT (0-31) U/L Alkaline Phosphatase (39-117) U/L Troponin I High Sens (<3.5-17.0) ng/L B-Natriuretic Peptide (<100) pg/mL Total Protein (6.5-8.0) g/dL Albumin (3.5-5.0) g/dL Urine Color Urine Appearance Urine pH (5.0-8.0) Ur Specific [place] (1.005-1.025) Urine Protein (NEG-TRACE) MG/DL Urine Glucose (UA) (NEG) MG/DL Urine Ketones (NEG) MG/DL Urine Blood (NEG) Urine Nitrite (NEG) Ur Leukocyte Esterase (NEG) Urine RBC (0) /HPF Urine WBC (0-4) /HPF Ur Squamous Epith Cells /LPF Urine Bacteria /LPF COVID-19 (LORRAINE) (Negative) COVID-19 Clin Com Influenza Type A (CASIMIRO) (Negative) Influenza Type B (CASIMIRO) (Negative) Influenza A & B Note Imaging Data Chest x-ray and CT scan of brain without contrast: Attestation: I personally reviewed and interpreted this imaging study as follows: Radiologist's impression: FINDINGS: CHEST X-RAY: Both lungs are fairly well-expanded with increased bilateral parahilar markings likely interstitial edema or pneumonitis. Heart size enlarged. There is a soft tissue density overlying the right parahilar region. There is no pleural effusion. No gross bony abnormality seen. BRAIN: There is no acute intra-axial, extra-axial bleed, masses or midline shift. There is no acute infarction in evolution. There is no edema. The gamboa to white matter differentiation is maintained normal. Bone windows reveal no calvarial abnormality. There is a small 7 mm soft tissue scalp lesion left frontal bone and a 1.5 cm right occipital lobe scalp lesion with central calcification. Differential diagnosis neurofibroma versus sebaceous cyst. Bilateral paranasal sinuses and mastoid air cells are well-aerated. XR/XR chest 2V IMPRESSION: Bilateral parahilar interstitial edema or pneumonitis. ? Prominent right parahilar soft tissue density question lesion. ? Mild cardiomegaly. ? No acute intracranial process seen. ? Sebaceous cyst versus neurofibroma lesions in the scalp. Venous duplex ultrasound of bilateral lower extremity: Attestation: I personally reviewed and interpreted this imaging study as follows: Radiologist's impression: FINDINGS: RIGHT: There is normal venous compression and respiratory variation and augmented flow. The visualized common femoral vein, superficial femoral vein, profunda femoral vein, popliteal vein, and the trifurcation region shows no evidence of deep venous thrombosis. ? There is no significant popliteal fossa cyst. LEFT: There is normal venous compression and respiratory variation and augmented flow. The visualized common femoral vein, superficial femoral vein, profunda femoral vein, popliteal vein, and the trifurcation region shows no evidence of deep venous thrombosis. ? There is no significant popliteal fossa cyst. If the patient's symptoms persist, followup ultrasound in 5 days 7 days might be of value to exclude proximal propagation from a non-visualized calf vein. US/US venous duplex LE BI IMPRESSION: No DVT demonstrated in bilateral lower extremity. CTA chest for PE: Attestation: I personally reviewed and interpreted this imaging study as follows: Radiologist's impression: FINDINGS: QUALITY OF STUDY/CONTRAST BOLUS: Satisfactory. PULMONARY ARTERIES: No central or segmental pulmonary emboli.? THORACIC AORTA: No aneurysm or dissection. LUNG: The lungs are well-expanded with dependent atelectatic changes posterior segment right upper lobe, superior segment right lower lobe and bilateral basilar segments. No pulmonary nodule not, mass or consolidation seen. PLEURA: There is no evidence of pleural effusion or thickening. MEDIASTINUM: The heart size enlarged. There is no pericardial effusion. There are coronary artery calcifications present. Central trachea and the bronchi widely patent. There is a hypodense 2.4 cm nodule right thyroid lobe. The left thyroid lobe is unremarkable.? No evidence of septal bowing or right heart strain. CHEST WALL/AXILLA: No axillary or internal mammary lymphadenopathy. OSSEOUS STRUCTURES: There is exaggerated thoracic kyphosis. The vertebral heights, alignment and disc heights is normal. There is mild ventral spondylosis. No lytic or sclerotic process.? UPPER ABDOMEN: Visualized liver, spleen, pancreas and bilateral adrenal glands are unremarkable.? No reflux of contrast into the hepatic veins to suggest elevated right heart pressures. CT/CT angio chest PE protocol IMPRESSION: No evidence of PE. ? No evidence aortic dissection or aneurysm. ? Mild cardiomegaly with bibasilar and right upper lobe posterior segmental dependent atelectatic changes. ? VTE: negative ECG Data Attestation: I personally reviewed and interpreted this ECG as follows: ECG interpretation date: 04/06/21 ECG interpretation time: 10:43 Interpretation: Atrial fibrillation with competing junctional pacemaker with ventricular rate of 81 with right bundle-branch block with T-wave abnormalities no acute ischemic changes are noted. Similar compared to prior EKG on 01/01/2021. Critical Care Time Critical Care Time Critical Care Time: Yes Total Critical Care Time: 60 Attestation: I personally attest to this time spent taking care of the patient Discharge Plan Discharge Clinical Impression: UTI (urinary tract infection), CHF (congestive heart failure), Hypoxia Patient Disposition: Admitted As Inpatient
[2021-04-06] MEDS: Albuterol Sulfate (0.083%) 2.5 MG/3 ML VIAL.NEB 10 MG INHALE (10:04)
[2021-04-06 10:41] LABS: MANUAL DIFF FLAG NO
[2021-04-06 10:43] LABS: Basophils Percent Auto 0.7 % (0-2); Eosinophils Absolute Auto 0.2 X10*3/uL (0.0-0.4); Eosinophils Percent Auto 5.6 % (0-4); Hematocrit 31.6 % (37.0-47.0); Hemoglobin 9.9 g/dl (12.0-16.0); Imm Gran Abs Auto 0.01 X10*3/uL (0.00-0.03); Imm Gran Pct Auto 0.3 % (0.0-0.4); Lymphocytes Absolute Auto 0.7 X10*3/uL (1.2-4.9); Lymphocytes Percent Auto 22.6 % (20-40); Mean Corpuscular HGB Conc 31.3 g/dl (31.0-35.0); Mean Corpuscular Hemoglobin 31.7 pg (27.0-33.0); Mean Corpuscular Volume 101.3 fL (80.0-98.0); Mean Platelet Volume 9.8 fL (9.4-12.3); Monocytes Absolute Auto 0.5 X10*3/uL (0.1-1.2); Monocytes Percent Auto 17.6 % (2-11); Neutrophils Absolute Auto 1.6 x10*3/uL (2.0-8.3); Neutrophils Percent Auto 53.2 % (45-73); Platelet Count 184 X10*3/uL (160-400); Red Blood Count 3.12 X10*6/uL (4.20-5.50); Red Cell Distribution Width 18.9 % (11.0-16.0)
[2021-04-06 10:49] LABS: INTERNATIONAL NORM RATIO 1.5 (0.9-1.1); Prothrombin Time 17.4 SEC (9.9-13.0)
[2021-04-06 10:59] LABS: Alanine Aminotransferase 11 U/L (0-31); Albumin Level 3.7 g/dL (3.5-5.0); Alkaline Phosphatase 76 U/L (39-117); Anion Gap 10 (12-20); Aspartate Amino Transferase 18 U/L (5-31); Bilirubin Total 0.9 mg/dL (0.0-1.0); Blood Urea Nitrogen 15 mg/dL (9-16); Calcium 9.2 mg/dL (8.4-10.2); Carbon Dioxide 29 mmol/L (22-29); Chloride 107 mmol/L (96-108); Creatinine Clr Calc Pharmacy 67.7; Estimated Glomerular Filt Rate > 60; Glucose Random 100 mg/dL (60-115); Magnesium 1.6 mg/dL (1.6-2.6); Potassium 4.3 mmol/L (3.3-5.1); Sodium 142 mmol/L (135-145); Total Protein 7.1 g/dL (6.5-8.0)
[2021-04-06 11:01] LABS: COVID-19 Test Negative (Negative); IDNOW Serial# 55D5AD1C; Influenza A Negative (Negative); Influenza B2 Negative (Negative)
[2021-04-06 11:03] LABS: B Type Natriuretic Peptide 423 pg/mL (<100); Troponin-I High Sensitivity 9.4 ng/L (<3.5-17.0)
[2021-04-06 11:39] LABS: Appearance Urine HAZY; Color Urine YELLOW; Glucose Urine UA NEG (NEG); Leukocyte Esterase Urine TRACE (NEG); Nitrite Urine POS (NEG); PH 6.5 (5.0-8.0); Specific Gravity - Urine 1.015 (1.005-1.025); UACC Culture Trigger YES; Urine Blood TRACE (NEG); Urine Ketones NEG (NEG); Urine Protein NEG (NEG-TRACE)
--- NOTE | 2021-04-06 11:40 | PC.NURSE ---
pt desast to 88-89% on ra with head of bed down. hob up 93-94%on r/a. pt placed on at 2l/m via n/c, 02 sat 97%. aware.
[2021-04-06 11:44] LABS: Glucose, Whole Blood 114 mg/dL (60-115)
[2021-04-06] MEDS: iohexoL 350 MG/ML 100 ML INFUS..BTL IV (12:45)
[2021-04-06 13:26] LABS: Bacteria Urine 4+ /LPF; Squamous Epithelial Cell Urine 2+ /LPF
[2021-04-06 13:37] LABS: Lactic Acid 3.8 mmol/L (0.5-2.0)
[2021-04-06 13:42] LABS: Troponin-I High Sensitivity 8.7 ng/L (<3.5-17.0)
[2021-04-06] MEDS: cefTRIAXone sodium 2 GM in 0.9 % Sodium Chloride 50 ML IV (13:53)
--- NOTE | 2021-04-06 15:03 | P.HPHOSP_ITS ---
History of Present Illness Date of Service: 04/06/21 Chief Complaint: sob 80-year-old female with past medical history of chronic diastolic CHF with severe aortic stenosis and pulmonary hypertension presented with 1 day of shortness of breath. Patient states that she was feeling well on day prior to presentation. At 01:00 on day of presentation patient was doing laundry and began to feel extremely short of breath. She tried to rest but shortness of breath did not resolve so she called EMS. Patient does note worsening lower extremity edema over the past month, she reports having to sleep in her recliner. Denies chest pain, fever, chills, cough. In ED noted to be hypoxic on room air to 88%. CTA was unremarkable. Review of Systems Review of Systems: Constitutional: Denies fever, denies Chills Eyes: denies blurry vision ENT: denies sore throat CVS: denies chest pain Respiratory: dyspnea GI: no abdominal pain : denies dysuria MSK: denies neck pain Skin: denies rash Neuro: denies specific motor weakness Psych: denies suicidal ideation Endocrine: denies heat/cold intolerance Hematologic: denies easy bleeding Allergy: denies hives [facility] Medical History (HFpEF) heart failure with preserved ejection fraction Acute pyelonephritis Anxiety and depression Atrial fibrillation CHF exacerbation Chronic anticoagulation CVA (cerebral vascular accident) Hypercholesterolemia Hypertension Lumbar vertebral fracture Obesity (BMI 30-39.9) Pneumonia Rheumatoid arthritis Sepsis TIA (transient ischemic attack) Type 2 diabetes mellitus with hyperglycemia Uterine cancer Family History Father Diabetes CAD (coronary artery disease) Mother Diabetes Hypertension Perforated ulcer Sister Diabetes Surgical History History of appendectomy History of colonoscopy History of left knee replacement History of right knee joint replacement S/P ANTONIO-BSO Social History Household Members: Spouse Housing: House Do you presently have visiting nurse or other home services: Yes Alcohol intake: never Patient Tobacco Use Status: Never used Tobacco e-Cigarette/Vaping Use: Never Used Second Hand Smoke Exposure: No Use of substances other than those prescribed or required for medical reasons: No Advance Directives: Yes Advance Directives on File: Yes Advance Directives Date on File: 05/17/20 service: No Current occupational status: retired Meds Allergies Allergy/AdvReac Type Severity Reaction Status Date / Time shellfish derived Allergy Unknown itchy Verified 11/07/20 15:11 procaine [From Novocain] AdvReac Unknown makes Verified 11/07/20 15:11 patient itchy,puffy Active Medications: Current Medications Furosemide (Furosemide 40 Mg/4 Ml Vial) 40 mg IVPUSH BID@0900,1800 PENDING SALE TO [facility]; Protocol Ceftriaxone Sodium 1 gm/ (Sodium Chloride) 50 mls @ 100 mls/hr IV Q24H PENDING SALE TO [facility] Pharmacy Consult (Consult Rx Perform Med Rec) 1 each MISCELLANE ONCE PRN PRN Reason: Consult order Sodium Chloride (0.9 % Sodium Chloride Flush 3 Ml Syringe) 3 ml IVFLUSH QSHIFT PENDING SALE TO [facility] Home Medications Medication Instructions Recorded Confirmed Last Taken Type folic acid 1 mg tablet 1 mg PO DAILY 05/18/20 01/02/21 11/05/20 History warfarin 1 mg tablet 2 mg PO DAILY 09/01/20 01/02/21 11/05/20 History furosemide 40 mg tablet 1 tab PO QAM 01/01/21 01/02/21 Unknown History acetaminophen 500 mg tablet 500 mg PO BEDTIME 01/02/21 01/02/21 Unknown History cholecalciferol (vitamin D3) 1,250 1,250 mcg PO PICKARD 01/02/21 01/02/21 Unknown History mcg (50,000 unit) capsule Physical Exam Vital Signs and Narrative: Vital Signs: Last Vital Signs Temp 97.9 F 04/06/21 13:54 Pulse 74 04/06/21 13:54 Resp 17 04/06/21 13:54 BP 122/46 L 04/06/21 13:54 Pulse Ox 99 04/06/21 13:54 BMI result Body Mass Index 42.5 General: dyspneic HEENT: atraumatic Neck: normal to visual inspection CVS: S1, S2, RRR, murmur Resp: diminished Chest: non tender GI: soft, non tender, non distended : no CVA tenderness Skin: no rashes Extremities: 2+ bilateral edema Neuro: Oriented X3, grossly intact Psych: cooperative Results Labs CBC and Chem 7: 04/06/21 10:33 04/06/21 10:33 Labs: Laboratory Results - last 24 hr 04/06/21 04/06/21 04/06/21 10:33 10:33 10:33 MCV 101.3 H MCH 31.7 MCHC 31.3 RDW 18.9 H Plt Count 184 D MPV 9.8 Immature Gran % (Auto) 0.3 Neut % (Auto) 53.2 Lymph % (Auto) 22.6 [place] % (Auto) 17.6 H Eos % (Auto) 5.6 H Baso % (Auto) 0.7 Lymph # (Auto) 0.7 L [place] # (Auto) 0.5 Eos # (Auto) 0.2 Baso # (Auto) 0.0 Abs Immat Gran (auto) 0.01 Absolute Neuts (auto) 1.6 L Absolute Nucleated RBC 0.000 Nucleated RBC % (auto) 0.0 PT 17.4 H INR 1.5 H Anion Gap 10 L Estim Creat Clear Calc 67.7 Estimated GFR > 60 POC Glucose Random Glucose 100 Lactic Acid Calcium 9.2 Magnesium 1.6 Total Bilirubin 0.9 AST 18 ALT 11 Alkaline Phosphatase 76 B-Natriuretic Peptide Total Protein 7.1 Albumin 3.7 Urine Color Urine Appearance Urine pH Ur Specific [place] Urine Protein Urine Glucose (UA) Urine Ketones Urine Blood Urine Nitrite Ur Leukocyte Esterase Urine RBC Urine WBC Ur Squamous Epith Cells Urine Bacteria COVID-19 (LORRAINE) COVID-19 Clin Com Influenza Type A (CASIMIRO) Influenza Type B (CASIMIRO) Influenza A & B Note 04/06/21 04/06/21 04/06/21 10:33 10:33 10:33 MCV MCH MCHC RDW Plt Count MPV Immature Gran % (Auto) Neut % (Auto) Lymph % (Auto) [place] % (Auto) Eos % (Auto) Baso % (Auto) Lymph # (Auto) [place] # (Auto) Eos # (Auto) Baso # (Auto) Abs Immat Gran (auto) Absolute Neuts (auto) Absolute Nucleated RBC Nucleated RBC % (auto) PT INR Anion Gap Estim Creat Clear Calc Estimated GFR POC Glucose Random Glucose Lactic Acid Calcium Magnesium Total Bilirubin AST ALT Alkaline Phosphatase B-Natriuretic Peptide 423 H Total Protein Albumin Urine Color Urine Appearance Urine pH Ur Specific [place] Urine Protein Urine Glucose (UA) Urine Ketones Urine Blood Urine Nitrite Ur Leukocyte Esterase Urine RBC Urine WBC Ur Squamous Epith Cells Urine Bacteria COVID-19 (LORRAINE) Negative COVID-19 Clin Com See Note Influenza Type A (CASIMIRO) Negative Influenza Type B (CASIMIRO) Negative Influenza A & B Note See Note 04/06/21 04/06/21 04/06/21 11:30 11:36 13:14 MCV MCH MCHC RDW Plt Count MPV Immature Gran % (Auto) Neut % (Auto) Lymph % (Auto) [place] % (Auto) Eos % (Auto) Baso % (Auto) Lymph # (Auto) [place] # (Auto) Eos # (Auto) Baso # (Auto) Abs Immat Gran (auto) Absolute Neuts (auto) Absolute Nucleated RBC Nucleated RBC % (auto) PT INR Anion Gap Estim Creat Clear Calc Estimated GFR POC Glucose 114 Random Glucose Lactic Acid 3.8 H* Calcium Magnesium Total Bilirubin AST ALT Alkaline Phosphatase B-Natriuretic Peptide Total Protein Albumin Urine Color YELLOW Urine Appearance HAZY Urine pH 6.5 Ur Specific [place] 1.015 Urine Protein NEG Urine Glucose (UA) NEG Urine Ketones NEG Urine Blood TRACE Urine Nitrite POS H Ur Leukocyte Esterase TRACE H Urine RBC 1-4 Urine WBC 1-4 Ur Squamous Epith Cells 2+ Urine Bacteria 4+ COVID-19 (LORRAINE) COVID-19 Clin Com Influenza Type A (CASIMIRO) Influenza Type B (CASIMIRO) Influenza A & B Note Imaging Radiologist's Impressions: Impressions Chest X-Ray 04/06/21 09:10 IMPRESSION: Bilateral parahilar interstitial edema or pneumonitis. Prominent right parahilar soft tissue density question lesion. Mild cardiomegaly. No acute intracranial process seen. Sebaceous cyst versus neurofibroma lesions in the scalp. Head CT 04/06/21 10:05 IMPRESSION: Bilateral parahilar interstitial edema or pneumonitis. Prominent right parahilar soft tissue density question lesion. Mild cardiomegaly. No acute intracranial process seen. Sebaceous cyst versus neurofibroma lesions in the scalp. Venous Duplex 04/06/21 12:06 IMPRESSION: No DVT demonstrated in bilateral lower extremity. Chest CTA 04/06/21 12:51 IMPRESSION: No evidence of PE. No evidence aortic dissection or aneurysm. Mild cardiomegaly with bibasilar and right upper lobe posterior segmental dependent atelectatic changes. VTE: negative Assessment and Plan (1) Pancytopenia: Status: Acute Plan 80F presented with sob Acute hypoxic respiratory failure secondary to acute on chronic CHF with preserved ejection fraction and severe aortic stenosis IV Lasix, Cardiology eval Monitor electrolytes Bacteriuria Patient unreliable historian Will empirically treat with ceftriaxone, follow-up cultures Pancytopenia Multifactorial, has splenomegaly with lymph nodes is following with Hematology as outpatient B12 deficiency-continue supplement Chronic atrial fibrillation Coumadin and metoprolol Monitor INR Hypertension Lopressor, Aldactone, amlodipine Mood disorder Sertraline Full code Quality Stroke Does the patient have a stroke diagnosis?: No VTE Prior VTE?: No VTE Risk Level:: Medical - moderate - high VTE Device Contraindication: Treatment Not Indicated VTE Drug Contraindication: N/A - Med Ordered
--- NOTE | 2021-04-06 15:15 | PHA.MEDREC ---
Pharmacy Consult ? Medication Reconciliation Pharmacy has completed the medication reconciliation. Spoke to Dr. Negron, updated med rec based on old claim history/discharge summary from 01/09. Patient doesnt know her medication, pt wansn't 100% sure and reported patient doesnt take medications every day. did say her warfarin dose was 1 mg Dulce NascimentoD
[2021-04-06 15:20] LABS: Reflex Lactate? Lactic Acid Added
[2021-04-06 16:06] LABS: ~Lactic Acid-LAB USE ONLY 3.5 mmol/L (0.5-2.0)
[2021-04-06] MEDS: 0.9 % Sodium Chloride Flush 3 ML SYRINGE IVFLUSH (16:08)
[2021-04-06] MEDS: Furosemide 20 MG/2 ML VIAL IVPUSH (16:08)
--- NOTE | 2021-04-06 17:31 | PC.NURSE ---
pt saturated in urine. all linen changed. pt redressed and repositioned.
[2021-04-06 17:40] LABS: Reflex Lactate? 2 Y
[2021-04-06] MEDS: Furosemide 40 MG/4 ML VIAL IVPUSH (18:02)
[2021-04-06 18:13] LABS: ~Lactic Acid-LAB USE ONLY 2.8 mmol/L (0.5-2.0)
[2021-04-07 00:35] VITALS: BP 140/58; PULSE 72; RESP 16; TEMP 36.8; O2SAT 98
[2021-04-07 03:05] VITALS: BMI 37.8
[2021-04-07 04:00] VITALS: BP 146/69; PULSE 70; RESP 16; TEMP 36.5; O2SAT 97
--- NOTE | 2021-04-07 04:21 | PC.NURSE ---
Patient arrived from main ER to [facility], bed 3 at approx 0035. Patient alert and pleasant and cooperative. Patient denies pain, dyspnea on exertion, orthopnea - head of bed elevated. Kept on 2 liters nasal canula for comfort, 94% on room air. Patient up to commode x2 - 1 assist. High fall risk precaution in place - call parra within reach.
--- NOTE | 2021-04-07 04:26 | PC.NURSE ---
PATIENT WAS ASSISTED TO BEDSIDE COMMODE,PATIENT VOIDED 200 ML
[2021-04-07 06:34] LABS: Hematocrit 27.5 % (37.0-47.0); Hemoglobin 9.4 g/dl (12.0-16.0); Mean Corpuscular HGB Conc 34.2 g/dl (31.0-35.0); Mean Corpuscular Hemoglobin 35.9 pg (27.0-33.0); Mean Platelet Volume 10.4 fL (9.4-12.3); Platelet Count 186 X10*3/uL (160-400); Red Blood Count 2.62 X10*6/uL (4.20-5.50); White Blood Count 3.8 X10*3/uL (4.8-10.8)
[2021-04-07 07:12] LABS: Anion Gap 11 (12-20); Blood Urea Nitrogen 14 mg/dL (9-16); Calcium 9.2 mg/dL (8.4-10.2); Carbon Dioxide 31 mmol/L (22-29); Chloride 104 mmol/L (96-108); Creatinine Clr Calc Pharmacy 59.7; Estimated Glomerular Filt Rate > 60; Glucose Fasting 88 mg/dL (60-99); Magnesium 1.5 mg/dL (1.6-2.6); Potassium 4.1 mmol/L (3.3-5.1); Sodium 142 mmol/L (135-145)
[2021-04-07 07:48] LABS: Glucose, Whole Blood 105 mg/dL (60-115)
[2021-04-07 08:20] VITALS: BP 124/62; PULSE 73; RESP 16; O2SAT 98
[2021-04-07 08:27] VITALS: BP 124/62; PULSE 81; RESP 16; TEMP 37.2; O2SAT 94
--- NOTE | 2021-04-07 09:52 | P.CONCA_ITS ---
History of Present Illness History of Present Illness Date of Service: 04/07/21 Chief complaint: chf Narrative: This is a cardiology consultation regarding shortness of breath. Patient has a background of persistent atrial fibrillation. She also has a history of severe aortic stenosis. However, she does not seem to have any regular cardiology follow-up. She has been seen a lot as inpatient but states she does not really see any operator cavity pump as an outpatient. There is 1 office note from nurse practitioner from last year but nothing since then. Patient states that she is here because of increasing shortness of breath. She states that she does have shortness of breath at baseline but has been getting worse recently and hence she came to the ER. She was apparently found to be slightly hypoxic. Because of significant past cardiac history, she has been admitted for further evaluation. Review of Systems Review of Systems: Yes all other systems are reviewed and are negative Cardiovascular: Cardiovascular: Reports as per HPI, Reports no additional cardiovascular complaints, Denies acrocyanosis, Denies cool extremities, Denies chest pain, Denies diaphoresis, Denies syncope, Denies claudication, Denies leg edema, Denies lightheadedness, Denies palpitations and Reports dyspnea Respiratory: Respiratory: Reports dyspnea Neurologic: Denies syncope Endocrine: Endocrine: Denies palpitations [facility] Past Medical History Medical History (HFpEF) heart failure with preserved ejection fraction Acute pyelonephritis Anxiety and depression Atrial fibrillation CHF exacerbation Chronic anticoagulation CVA (cerebral vascular accident) Hypercholesterolemia Hypertension Lumbar vertebral fracture Obesity (BMI 30-39.9) Pneumonia Rheumatoid arthritis Sepsis TIA (transient ischemic attack) Type 2 diabetes mellitus with hyperglycemia Uterine cancer Family History Family History Father Diabetes CAD (coronary artery disease) Mother Diabetes Hypertension Perforated ulcer Sister Diabetes Surgical History Surgical History History of appendectomy History of colonoscopy History of left knee replacement History of right knee joint replacement S/P ANTONIO-BSO Social History Social History Household Members: Spouse Housing: House Do you presently have visiting nurse or other home services: Yes Alcohol intake: never Patient Tobacco Use Status: Never used Tobacco e-Cigarette/Vaping Use: Never Used Second Hand Smoke Exposure: No Use of substances other than those prescribed or required for medical reasons: No Advance Directives: Yes Advance Directives on File: Yes Advance Directives Date on File: 05/17/20 service: No Current occupational status: retired Meds Allergies Allergy/AdvReac Type Severity Reaction Status Date / Time shellfish derived Allergy Unknown itchy Verified 11/07/20 15:11 procaine [From Novocain] AdvReac Unknown makes Verified 11/07/20 15:11 patient itchy,puffy Active Medications: Current Medications Amlodipine Besylate (Amlodipine Besylate 10 Mg Tablet) 10 mg PO DAILY [facility]; Protocol Cyanocobalamin (Cyanocobalamin (Vitamin B-12) 1,000 Mcg Tablet) 1,000 mcg PO DAILY [facility] Folic Acid (Folic Acid 1 Mg Tablet) 1 mg PO DAILY [facility] Furosemide (Furosemide 40 Mg/4 Ml Vial) 40 mg IVPUSH BID@0900,1800 [facility]; Protocol Last Admin: 04/06/21 18:02 Dose: 40 mg Documented by: Ceftriaxone Sodium 1 gm/ (Sodium Chloride) 50 mls @ 100 mls/hr IV Q24H [facility] Magnesium Sulfate (Magnesium Sulfate/H2o) 2 gm in 50 mls @ 25 mls/hr IV ONCE ONE Stop: 04/07/21 10:29 Metoprolol Tartrate (Metoprolol Tartrate 12.5 Mg Halftab) 12.5 mg PO BID [facility]; Protocol Pharmacy Consult (Consult Rx Perform Med Rec) 1 each MISCELLANE ONCE PRN PRN Reason: Consult order Sertraline HCl (Sertraline Hcl 50 Mg Tablet) 50 mg PO DAILY [facility] Sodium Chloride (0.9 % Sodium Chloride Flush 3 Ml Syringe) 3 ml IVFLUSH QSHIFT [facility] Last Admin: 04/07/21 08:11 Dose: Not Given Documented by: Spironolactone (Spironolactone 25 Mg Tablet) 12.5 mg PO DAILY [facility]; Protocol Trazodone HCl (Trazodone Hcl 25 Mg Halftab) 25 mg PO BEDTIME PRN PRN Reason: sleep Warfarin Sodium (Warfarin Sodium 1 Mg Tablet) 1 mg PO DAILY@1800 [facility] Home Medications Medication Instructions Recorded Confirmed Last Taken Type folic acid 1 mg tablet 1 mg PO DAILY 05/18/20 04/06/21 11/05/20 History warfarin 1 mg tablet 1 mg PO DAILY 09/01/20 04/06/21 11/05/20 History furosemide 40 mg tablet 1 tab PO DAILY 01/01/21 04/06/21 Unknown History acetaminophen 500 mg tablet 500 mg PO BEDTIME 01/02/21 04/06/21 Unknown History cholecalciferol (vitamin D3) 1,250 1,250 mcg PO PICKARD 01/02/21 04/06/21 Unknown History mcg (50,000 unit) capsule Physical Exam Vital Signs: Vital Signs: Last Vital Signs Temp 98.9 F 04/07/21 08:27 Pulse 81 04/07/21 08:27 Resp 16 04/07/21 08:27 BP 124/62 04/07/21 08:27 Pulse Ox 94 04/07/21 08:27 BMI result Body Mass Index 37.8 Const: General: comfortable HENMT: Other: Unremarkable Neck: Neck: Yes normal visual inspection Chest: Chest palpation & inspection: normal inspection of the chest Resp: Other: crackles+ Cardio: Other: soft S2 Palpation: normal PMI Heart sounds: S1 normal heart sound present, no gallops, Murmur heart sound present (2/6 SHARAN aortic area) and no rubs GI: Palpation (GI): Soft to palpation Back/Spine/Pelvis: Other: unremarkable Skin: Lesions: other Neuro: General: other Extrem: Other: 1-2+ edema General: Yes other Psych: Mental Status: other Objective Labs and Meds Result diagrams: 04/07/21 05:32 04/07/21 05:32 Lab results: Laboratory Results - last 24 hr 04/06/21 04/06/21 04/06/21 10:33 10:33 10:33 WBC 3.0 L RBC 3.12 L Hgb 9.9 L Hct 31.6 L MCV 101.3 H MCH 31.7 MCHC 31.3 RDW 18.9 H Plt Count 184 D MPV 9.8 Immature Gran % (Auto) 0.3 Neut % (Auto) 53.2 Lymph % (Auto) 22.6 [place] % (Auto) 17.6 H Eos % (Auto) 5.6 H Baso % (Auto) 0.7 Lymph # (Auto) 0.7 L [place] # (Auto) 0.5 Eos # (Auto) 0.2 Baso # (Auto) 0.0 Abs Immat Gran (auto) 0.01 Absolute Neuts (auto) 1.6 L Absolute Nucleated RBC 0.000 Nucleated RBC % (auto) 0.0 PT 17.4 H INR 1.5 H Sodium 142 Potassium 4.3 Chloride 107 Carbon Dioxide 29 Anion Gap 10 L BUN 15 Creatinine 0.67 Estim Creat Clear Calc 67.7 Estimated GFR > 60 POC Glucose Random Glucose 100 Fasting Glucose Lactic Acid Lactic Acid F/U @ 2Hr Lactic Acid F/U @ 4Hr Calcium 9.2 Magnesium 1.6 Total Bilirubin 0.9 AST 18 ALT 11 Alkaline Phosphatase 76 Troponin I High Sens B-Natriuretic Peptide Total Protein 7.1 Albumin 3.7 Urine Color Urine Appearance Urine pH Ur Specific [place] Urine Protein Urine Glucose (UA) Urine Ketones Urine Blood Urine Nitrite Ur Leukocyte Esterase Urine RBC Urine WBC Ur Squamous Epith Cells Urine Bacteria COVID-19 (LORRAINE) COVID-19 Clin Com Influenza Type A (CASIMIRO) Influenza Type B (CASIMIRO) Influenza A & B Note 04/06/21 04/06/21 04/06/21 10:33 10:33 10:33 WBC RBC Hgb Hct MCV MCH MCHC RDW Plt Count MPV Immature Gran % (Auto) Neut % (Auto) Lymph % (Auto) [place] % (Auto) Eos % (Auto) Baso % (Auto) Lymph # (Auto) [place] # (Auto) Eos # (Auto) Baso # (Auto) Abs Immat Gran (auto) Absolute Neuts (auto) Absolute Nucleated RBC Nucleated RBC % (auto) PT INR Sodium Potassium Chloride Carbon Dioxide Anion Gap BUN Creatinine Estim Creat Clear Calc Estimated GFR POC Glucose Random Glucose Fasting Glucose Lactic Acid Lactic Acid F/U @ 2Hr Lactic Acid F/U @ 4Hr Calcium Magnesium Total Bilirubin AST ALT Alkaline Phosphatase Troponin I High Sens 9.4 B-Natriuretic Peptide 423 H Total Protein Albumin Urine Color Urine Appearance Urine pH Ur Specific [place] Urine Protein Urine Glucose (UA) Urine Ketones Urine Blood Urine Nitrite Ur Leukocyte Esterase Urine RBC Urine WBC Ur Squamous Epith Cells Urine Bacteria COVID-19 (LORRAINE) Negative COVID-19 Clin Com See Note Influenza Type A (CASIMIRO) Negative Influenza Type B (CASIMIRO) Negative Influenza A & B Note See Note 04/06/21 04/06/21 04/06/21 11:30 11:36 13:14 WBC RBC Hgb Hct MCV MCH MCHC RDW Plt Count MPV Immature Gran % (Auto) Neut % (Auto) Lymph % (Auto) [place] % (Auto) Eos % (Auto) Baso % (Auto) Lymph # (Auto) [place] # (Auto) Eos # (Auto) Baso # (Auto) Abs Immat Gran (auto) Absolute Neuts (auto) Absolute Nucleated RBC Nucleated RBC % (auto) PT INR Sodium Potassium Chloride Carbon Dioxide Anion Gap BUN Creatinine Estim Creat Clear Calc Estimated GFR POC Glucose 114 Random Glucose Fasting Glucose Lactic Acid Lactic Acid F/U @ 2Hr Lactic Acid F/U @ 4Hr Calcium Magnesium Total Bilirubin AST ALT Alkaline Phosphatase Troponin I High Sens 8.7 B-Natriuretic Peptide Total Protein Albumin Urine Color YELLOW Urine Appearance HAZY Urine pH 6.5 Ur Specific [place] 1.015 Urine Protein NEG Urine Glucose (UA) NEG Urine Ketones NEG Urine Blood TRACE Urine Nitrite POS H Ur Leukocyte Esterase TRACE H Urine RBC 1-4 Urine WBC 1-4 Ur Squamous Epith Cells 2+ Urine Bacteria 4+ COVID-19 (LORRAINE) COVID-19 Clin Com Influenza Type A (CASIMIRO) Influenza Type B (CASIMIRO) Influenza A & B Note 04/06/21 04/06/21 04/06/21 13:14 15:35 17:55 WBC RBC Hgb Hct MCV MCH MCHC RDW Plt Count MPV Immature Gran % (Auto) Neut % (Auto) Lymph % (Auto) [place] % (Auto) Eos % (Auto) Baso % (Auto) Lymph # (Auto) [place] # (Auto) Eos # (Auto) Baso # (Auto) Abs Immat Gran (auto) Absolute Neuts (auto) Absolute Nucleated RBC Nucleated RBC % (auto) PT INR Sodium Potassium Chloride Carbon Dioxide Anion Gap BUN Creatinine Estim Creat Clear Calc Estimated GFR POC Glucose Random Glucose Fasting Glucose Lactic Acid 3.8 H* Lactic Acid F/U @ 2Hr 3.5 H* Lactic Acid F/U @ 4Hr 2.8 H* Calcium Magnesium Total Bilirubin AST ALT Alkaline Phosphatase Troponin I High Sens B-Natriuretic Peptide Total Protein Albumin Urine Color Urine Appearance Urine pH Ur Specific [place] Urine Protein Urine Glucose (UA) Urine Ketones Urine Blood Urine Nitrite Ur Leukocyte Esterase Urine RBC Urine WBC Ur Squamous Epith Cells Urine Bacteria COVID-19 (LORRAINE) COVID-19 Clin Com Influenza Type A (CASIMIRO) Influenza Type B (CASIMIRO) Influenza A & B Note 04/07/21 04/07/21 04/07/21 05:32 05:32 07:27 WBC 3.8 L RBC 2.62 L Hgb 9.4 L Hct 27.5 L MCV 105.0 H MCH 35.9 H MCHC 34.2 RDW 19.0 H Plt Count 186 MPV 10.4 Immature Gran % (Auto) Neut % (Auto) Lymph % (Auto) [place] % (Auto) Eos % (Auto) Baso % (Auto) Lymph # (Auto) [place] # (Auto) Eos # (Auto) Baso # (Auto) Abs Immat Gran (auto) Absolute Neuts (auto) Absolute Nucleated RBC 0.000 Nucleated RBC % (auto) 0.0 PT INR Sodium 142 Potassium 4.1 Chloride 104 Carbon Dioxide 31 H Anion Gap 11 L BUN 14 Creatinine 0.71 Estim Creat Clear Calc 59.7 Estimated GFR > 60 POC Glucose 105 Random Glucose Fasting Glucose 88 Lactic Acid Lactic Acid F/U @ 2Hr Lactic Acid F/U @ 4Hr Calcium 9.2 Magnesium 1.5 L Total Bilirubin AST ALT Alkaline Phosphatase Troponin I High Sens B-Natriuretic Peptide Total Protein Albumin Urine Color Urine Appearance Urine pH Ur Specific [place] Urine Protein Urine Glucose (UA) Urine Ketones Urine Blood Urine Nitrite Ur Leukocyte Esterase Urine RBC Urine WBC Ur Squamous Epith Cells Urine Bacteria COVID-19 (LORRAINE) COVID-19 Clin Com Influenza Type A (CASIMIRO) Influenza Type B (CASIMIRO) Influenza A & B Note ECG Interpretation: EKG with atrial fibrillation at 81/Min with right bundle-branch block pattern. Inverted T-waves in the inferior leads as well as anterior leads. Have been noticed before. Imaging Radiologist's impression: Impressions Chest X-Ray 04/06/21 09:10 IMPRESSION: Bilateral parahilar interstitial edema or pneumonitis. Prominent right parahilar soft tissue density question lesion. Mild cardiomegaly. No acute intracranial process seen. Sebaceous cyst versus neurofibroma lesions in the scalp. Head CT 04/06/21 10:05 IMPRESSION: Bilateral parahilar interstitial edema or pneumonitis. Prominent right parahilar soft tissue density question lesion. Mild cardiomegaly. No acute intracranial process seen. Sebaceous cyst versus neurofibroma lesions in the scalp. Venous Duplex 04/06/21 12:06 IMPRESSION: No DVT demonstrated in bilateral lower extremity. Chest CTA 04/06/21 12:51 IMPRESSION: No evidence of PE. No evidence aortic dissection or aneurysm. Mild cardiomegaly with bibasilar and right upper lobe posterior segmental dependent atelectatic changes. VTE: negative Assessment and Plan (1) Acute on chronic diastolic (congestive) heart failure: Status: Acute (2) Nonrheumatic aortic valve stenosis: Status: Acute (3) Persistent atrial fibrillation: Status: Acute (4) Pulmonary hypertension: Status: Acute Plan Echocardiogram from last November reviewed. LVEF 60-65%. Paradoxical, low-flow severe aortic stenosis with a valve area of 0.77 sq cm and mean gradient of 30 mm Hg. There is also moderate pulmonary hypertension. Unremarkable troponins in this admission. Cardiac BNP 423. At this time, agree with empiric diuretics. Otherwise, with regard to the aortic stenosis itself, not clear if she understands this much at all. Ideally, will need further workup towards TAVR. Likely as outpatient. Procedures Date of Service Date of Service: 04/07/21
--- NOTE | 2021-04-07 10:37 | CA_ITS ---
Transthoracic Echocardiogram Patient (Last, First, Middle): Yakelin Abreu E Gender: Female Date of : 1940 Age: 80 Procedure Date: 04/07/2021 Procedure Type: Transthoracic Echocardiogram Location: ER Height: 149.86 cm Weight: 84.82 kg BSA: 1.79 m2 Heart Rate: bpm BP: 124 / 62 mmHg Passenger Rate Clerk: Referring MD: Alfie Jarvis MD Symptoms: Aortic stenosis, CHF Study Quality: Fair ECG Rhythm: Atrial Fibrillation Conclusions: - The left ventricular systolic function is normal. The calculated ejection fraction is 61% by biplane method. - Overall, low gradient, low flow severe aortic stenosis. - There is moderate mitral annular calcification. Mean gradient across the mitral valve 4mmHg at 88/min; cannot exclude mild mitral stenosis. - Moderate pulmonary hypertension is present. Findings Left Ventricle Normal left ventricular cavity size. There is severely increased left ventricular wall thickness. The left ventricular systolic function is normal. The calculated ejection fraction is 61% by biplane method. There is no evidence of regional wall motion abnormalities. E/E prime ratio is >15, consistent with elevated filling pressures. Evidence suggests grade I (mild) diastolic dysfunction. Right Ventricle Moderately increased right ventricular cavity size. There is normal right ventricular systolic function. Atria The left atrium is severely dilated. The right atrium is likely dilated. Aortic Valve There is moderate calcification of the aortic valve. The peak aortic velocity is 3.38 m/s with a calculated peak gradient of 46 mmHg. The mean gradient is 28 mmHg. The aortic valve area is 0.71 cm2. Dimensionless index 0.22. Stroke volume index 29ml. Overall, low gradient, low flow severe aortic stenosis. Mitral Valve There is moderate mitral annular calcification. There is trace mitral valve regurgitation. Mean gradient across the mitral valve 4mmHg at 88/min; cannot exclude mild mitral stenosis. Pulmonic Valve The pulmonic valve was not well visualized. Tricuspid Valve There is mild tricuspid valve regurgitation. The right ventricular systolic pressure is 54 mmHg. Moderate pulmonary hypertension is present. Great Vessels The aortic annulus, sinuses of valsalva, and asc aorta are normal in size. Venous The inferior vena cava is mildly dilated and collapses less than 50% with inspiration. Pericardium/Pleural There is no evidence of pericardial effusion. Prior Study Comparison No significant change compared to prior study dated: 01/05/2021. Measurements 2D Linear Measurements IVSd: 1.46 0.6-0.9/0.6-1.0 cm LVIDd: 4.69 3.9-5.3/4.2-5.9 cm LVIDd Index: 2.62 2.4-3.2/2.2-3.1 cm/m2 LVIDs: 3.23 2.0-3.6 cm LVPWd: 1.49 0.7-1.1 cm Ao Root: 2.70 2.1-3.5 cm LA Diam: 4.60 2.7-3.8/3.0-4.0 cm LAIDs Index: 2.57 1.5-2.3 cm/m2 LV Mass: 356.49 67-162/88-224 g LV Mass Index: 199.16 43-95/49-115 g/m2 LVOT Diam: 2.00 3.0+(-)1.3 cm 2D Systolic Function EF 4C: 65.60 >55% EF 2C: 56.80 >55% EF BiP: 60.90 >55% Mitral Valve MV VTI: 0.33 MV Pk Samson: 1.52 MV Mn Sams[place]: 0.86 MV Pk Grad: 9.00 MV Mn Grad: 4.00 MV Pk E: 1.38 MV Decel Time: 336.00 E'Lateral: 11.50 E'Medial: 6.64 E/E' Med: 20.80 E/E' Lat: 12.00 PHT: 98.00 MVA PHT: 2.24 MVA Continuity: 1.60 Decel [place]: 4.10 Aortic Valve AoV Pk Sams[place]: 3.38 AoV Mn [place]: 2.46 AoV VTI: 0.74 AoV Pk Grad: 46.00 Aov Mn Grad: 28.00 HALI Cont.VTI: 0.71 LVOT LVOT Pk [place]: 0.72 LVOT Mn [place]: 0.49 LVOT VTI: 0.17 LVOT Pk Grad: 2.00 LVOT Mn Grad: 1.00 LVOT Diam: 2.00 LVOT Area: 3.14 Diastolic Function MV Pk E: 1.38 E'Medial: 6.64 E/E' Med: 20.80 E' Laterial: 11.50 E/E' Lat: 12.00 Tricuspid Valve TR Pk Samson: 3.14 TR Pk Grad: 39.00 RA Press: 15.00 RVSP: 54.00 Great Vessels Aorta Ao Root-2D: 2.70 2.0-3.7 cm Ao Asc: 3.20 2.1-3.4 cm Pulmonary Valve PV Pk Samson: 0.95 Peak PV Grad: 4.00 Updated in Other Vendor System with Status of Final Alfie Jarvis MD electronically signed on 04/07/2021 4:55:32 PM with status of Final
[2021-04-07] MEDS: amLODIPine Besylate 10 MG TABLET PO (10:42)
[2021-04-07] MEDS: Furosemide 40 MG/4 ML VIAL IVPUSH ×2 (10:43→17:59)
[2021-04-07] MEDS: Folic Acid 1 MG TABLET PO (10:43)
[2021-04-07] MEDS: Metoprolol Tartrate 12.5 MG HALFTAB PO ×2 (10:43→20:50)
[2021-04-07] MEDS: Sertraline HCL 50 MG TABLET PO (10:43)
[2021-04-07] MEDS: Cyanocobalamin (Vitamin B-12) 1,000 MCG TABLET 1000 MCG PO (10:43)
[2021-04-07] MEDS: Spironolactone 25 MG TABLET 12.5 MG PO (10:44)
[2021-04-07] MEDS: Magnesium Sulfate/H2O 2 GM/50 ML PIGGYBACK IV (10:47)
--- NOTE | 2021-04-07 10:49 | P.CDIC_ITS ---
CDI Concurrent Query Documentation Clarification: PHYSICIAN'S DOCUMENTATION REQUEST Date of Query: 04/07/21 1050 Patient Name: Yakelin Abreu Admit Date: 04/06/21 Dear Doctor, A review of the medical record indicates additional documentation may be needed. Please review below and update the documentation accordingly. Risk Factors/Clinical Indicators/Treatments Lab findings: magnesium 1.5 L Magnesium sulfate 1x Based on the above, could you clarify in the Progress Notes the appropriate diagnosis, if significant, that supports the above abnormalities and additional evaluation, monitoring, and/or treatment rendered: * Hypomagnesemia or other etiology of lab findings * Labs indicate a diagnosis of (please specify) * Other (please specify) * Unable to determine Use of terms such as suspected, likely, concern for, or probable (associated with a specific diagnosis that is being evaluated, monitored, or treated as if it exists) are acceptable and can be coded in the inpatient setting, when docu mented at the time of discharge. Thank you, Kathleen Barreto [facility], CDIS Extension: [phone] Please use your independent medical judgment in providing your response. THIS QUERY IS PART OF THE PERMANENT MEDICAL RECORD Provider Response: Other Other Diagnosis: hypomagnesemia
--- NOTE | 2021-04-07 10:51 | HO.PM.IMPN ---
Subjective Subjective Date of Service: 04/07/21 Interval History: cc: sob interval history: a little bit better, still very sob, some improvement in le edema Cardiovascular Cardiovascular: Reports no additional cardiovascular complaints Gastrointestinal Gastrointestinal: Reports no additional gastrointestinal complaints Physical Exam Vital Signs: Vital Signs: Last Vital Signs Temp 98.9 F 04/07/21 08:27 Pulse 81 04/07/21 08:27 Resp 16 04/07/21 08:27 BP 124/62 04/07/21 08:27 Pulse Ox 94 04/07/21 08:27 BMI result Body Mass Index 37.8 General: AO X 3, was sitting at end of bed tripodding Resp: diminished bilateral, accessory muscles used CVS: S1,S2, irregular, murmur, 1-2+ bilateral edema (improved from yesterday) GI: soft, non tender, non distended Neuro: motor grossly intact, alert Psych: appropriate affect, appropriate insight Objective Data Active Medications Amlodipine Besylate (Amlodipine Besylate 10 Mg Tablet) 10 mg PO DAILY [facility]; Protocol Last Admin: 04/07/21 10:42 Dose: 10 mg Documented by: CHEVY Cyanocobalamin (Cyanocobalamin (Vitamin B-12) 1,000 Mcg Tablet) 1,000 mcg PO DAILY [facility] Last Admin: 04/07/21 10:43 Dose: 1,000 mcg Documented by: CHEVY Folic Acid (Folic Acid 1 Mg Tablet) 1 mg PO DAILY [facility] Last Admin: 04/07/21 10:43 Dose: 1 mg Documented by: CHEVY Furosemide (Furosemide 40 Mg/4 Ml Vial) 40 mg IVPUSH BID@0900,1800 [facility]; Protocol Last Admin: 04/07/21 10:43 Dose: 40 mg Documented by: CHEVY Ceftriaxone Sodium 1 gm/ (Sodium Chloride) 50 mls @ 100 mls/hr IV Q24H [facility] Metoprolol Tartrate (Metoprolol Tartrate 12.5 Mg Halftab) 12.5 mg PO BID [facility]; Protocol Last Admin: 04/07/21 10:43 Dose: 12.5 mg Documented by: CHEVY Pharmacy Consult (Consult Rx Perform Med Rec) 1 each MISCELLANE ONCE PRN PRN Reason: Consult order Sertraline HCl (Sertraline Hcl 50 Mg Tablet) 50 mg PO DAILY [facility] Last Admin: 04/07/21 10:43 Dose: 50 mg Documented by: CHEVY Sodium Chloride (0.9 % Sodium Chloride Flush 3 Ml Syringe) 3 ml IVFLUSH QSHIFT [facility] Last Admin: 04/07/21 08:11 Dose: Not Given Documented by: CHEVY Non-Admin Reason: IV Running Spironolactone (Spironolactone 25 Mg Tablet) 12.5 mg PO DAILY [facility]; Protocol Last Admin: 04/07/21 10:44 Dose: 12.5 mg Documented by: CHEVY Trazodone HCl (Trazodone Hcl 25 Mg Halftab) 25 mg PO BEDTIME PRN PRN Reason: sleep Warfarin Sodium (Warfarin Sodium 1 Mg Tablet) 1 mg PO DAILY@1800 [facility] Labs CBC & Chem 7: 04/07/21 05:32 04/07/21 05:32 Labs: Laboratory Results - last 24 hr 04/06/21 04/06/21 04/06/21 10:33 10:33 10:33 MCV MCH MCHC RDW Plt Count MPV Absolute Nucleated RBC Nucleated RBC % (auto) Anion Gap 10 L Estim Creat Clear Calc 67.7 Estimated GFR > 60 POC Glucose Random Glucose 100 Fasting Glucose Lactic Acid Lactic Acid F/U @ 2Hr Lactic Acid F/U @ 4Hr Calcium 9.2 Magnesium 1.6 Total Bilirubin 0.9 AST 18 ALT 11 Alkaline Phosphatase 76 B-Natriuretic Peptide 423 H Total Protein 7.1 Albumin 3.7 Urine Color Urine Appearance Urine pH Ur Specific [place] Urine Protein Urine Glucose (UA) Urine Ketones Urine Blood Urine Nitrite Ur Leukocyte Esterase Urine RBC Urine WBC Ur Squamous Epith Cells Urine Bacteria COVID-19 ([facility]) COVID-19 Clin Com Influenza Type A (CASIMIRO) Negative Influenza Type B (CASIMIRO) Negative Influenza A & B Note See Note 04/06/21 04/06/21 04/06/21 10:33 11:30 11:36 MCV MCH MCHC RDW Plt Count MPV Absolute Nucleated RBC Nucleated RBC % (auto) Anion Gap Estim Creat Clear Calc Estimated GFR POC Glucose 114 Random Glucose Fasting Glucose Lactic Acid Lactic Acid F/U @ 2Hr Lactic Acid F/U @ 4Hr Calcium Magnesium Total Bilirubin AST ALT Alkaline Phosphatase B-Natriuretic Peptide Total Protein Albumin Urine Color YELLOW Urine Appearance HAZY Urine pH 6.5 Ur Specific [place] 1.015 Urine Protein NEG Urine Glucose (UA) NEG Urine Ketones NEG Urine Blood TRACE Urine Nitrite POS H Ur Leukocyte Esterase TRACE H Urine RBC 1-4 Urine WBC 1-4 Ur Squamous Epith Cells 2+ Urine Bacteria 4+ COVID-19 ([facility]ORRAINE) Negative COVID-19 Clin Com See Note Influenza Type A (CASIMIRO) Influenza Type B (CASIMIRO) Influenza A & B Note 04/06/21 04/06/21 04/06/21 13:14 15:35 17:55 MCV MCH MCHC RDW Plt Count MPV Absolute Nucleated RBC Nucleated RBC % (auto) Anion Gap Estim Creat Clear Calc Estimated GFR POC Glucose Random Glucose Fasting Glucose Lactic Acid 3.8 H* Lactic Acid F/U @ 2Hr 3.5 H* Lactic Acid F/U @ 4Hr 2.8 H* Calcium Magnesium Total Bilirubin AST ALT Alkaline Phosphatase B-Natriuretic Peptide Total Protein Albumin Urine Color Urine Appearance Urine pH Ur Specific [place] Urine Protein Urine Glucose (UA) Urine Ketones Urine Blood Urine Nitrite Ur Leukocyte Esterase Urine RBC Urine WBC Ur Squamous Epith Cells Urine Bacteria COVID-19 ([facility]INE) COVID-19 Clin Com Influenza Type A (CASIMIRO) Influenza Type B (CASIMIRO) Influenza A & B Note 04/07/21 04/07/21 04/07/21 05:32 05:32 07:27 MCV 105.0 H MCH 35.9 H MCHC 34.2 RDW 19.0 H Plt Count 186 MPV 10.4 Absolute Nucleated RBC 0.000 Nucleated RBC % (auto) 0.0 Anion Gap 11 L Estim Creat Clear Calc 59.7 Estimated GFR > 60 POC Glucose 105 Random Glucose Fasting Glucose 88 Lactic Acid Lactic Acid F/U @ 2Hr Lactic Acid F/U @ 4Hr Calcium 9.2 Magnesium 1.5 L Total Bilirubin AST ALT Alkaline Phosphatase B-Natriuretic Peptide Total Protein Albumin Urine Color Urine Appearance Urine pH Ur Specific [place] Urine Protein Urine Glucose (UA) Urine Ketones Urine Blood Urine Nitrite Ur Leukocyte Esterase Urine RBC Urine WBC Ur Squamous Epith Cells Urine Bacteria COVID-19 ([facility]INE) COVID-19 Clin Com Influenza Type A (CASIMIRO) Influenza Type B (CASIMIRO) Influenza A & B Note Microbiology Microbiology Results: Microbiology 04/06/21 00:00 Urine Culture - Preliminary Urine clean catch - Urine gamboa top Gram negative beata Assessment and Plan (1) Congestive heart failure: Status: Acute Plan 80F presented with sob Acute hypoxic respiratory failure secondary to acute on chronic CHF with preserved ejection fraction, moderate pulm htn, and severe aortic stenosis IV Lasix Monitor electrolytes cardio appreciated, likely needs outpatient follow up for TAVR Bacturia Patient unreliable historian - possible UTI Will empirically treat with ceftriaxone, follow-up cultures - GNR in urine Pancytopenia Multifactorial, has splenomegaly with retroperitoneal lymph nodes is following with Hematology as outpatient B12 deficiency- continue supplement Chronic atrial fibrillation Coumadin and metoprolol Monitor INR, currently subtherapeutic - 1.5 Hypertension Lopressor, Aldactone, amlodipine Mood disorder Sertraline Full code Quality Stroke Does the patient have a stroke diagnosis?: No VTE Prior VTE?: No VTE Risk Level:: Medical - moderate - high VTE Device Contraindication: Treatment Not Indicated VTE Drug Contraindication: N/A - Med Ordered
--- NOTE | 2021-04-07 11:10 | PC.NURSE ---
Pt A&Ox3, no complaints of pain or SOB at this time. Pt ambulated with stand by assist. Medicated as per MAR orders, pt not happy about getting IV lasix because of the urinary frequency, explained why she gets it and why it is some important at this time. Pt NSR on monitor, call parra within reach, sitting in recliner at this time. Will continue to monitor.
[2021-04-07 12:37] LABS: Glucose, Whole Blood 107 mg/dL (60-115)
[2021-04-07 14:13] VITALS: BP 113/52; PULSE 70; RESP 18; TEMP 36.8; O2SAT 92
[2021-04-07] MEDS: Acetaminophen 325 MG TABLET 650 MG PO ×2 (14:43→20:50)
[2021-04-07] MEDS: cefTRIAXone sodium 1 GM in 0.9 % Sodium Chloride 50 ML IV (14:43)
[2021-04-07] MEDS: Warfarin Sodium 1 MG TABLET PO (17:59)
[2021-04-07 18:24] LABS: Glucose, Whole Blood 96 mg/dL (60-115)
[2021-04-07 18:49] VITALS: BP 130/71; PULSE 64; RESP 17; O2SAT 93
[2021-04-08] VITALS (7 sets, daily range): BP systolic 109–143; BP diastolic 57–72; PULSE 54–78; RESP 14–20; TEMP 36.8–37.1; O2SAT 90–96
--- NOTE | 2021-04-08 00:31 | PC.NURSE ---
Assist patient onto commode.
[2021-04-08 04:44] LABS: Hematocrit 31.8 % (37.0-47.0); Hemoglobin 10.5 g/dl (12.0-16.0); Mean Corpuscular Hemoglobin 33.8 pg (27.0-33.0); Mean Corpuscular Volume 102.3 fL (80.0-98.0); Platelet Count 207 X10*3/uL (160-400); Red Blood Count 3.11 X10*6/uL (4.20-5.50); Red Cell Distribution Width 19.7 % (11.0-16.0); White Blood Count 4.8 X10*3/uL (4.8-10.8)
[2021-04-08 04:50] LABS: INTERNATIONAL NORM RATIO 1.4 (0.9-1.1); Prothrombin Time 16.3 SEC (9.9-13.0)
[2021-04-08 05:10] LABS: Anion Gap 16 (12-20); Blood Urea Nitrogen 18 mg/dL (9-16); Calcium 9.6 mg/dL (8.4-10.2); Carbon Dioxide 28 mmol/L (22-29); Chloride 99 mmol/L (96-108); Creatinine Clr Calc Pharmacy 55.1; Estimated Glomerular Filt Rate > 60; Glucose Fasting 110 mg/dL (60-99); Magnesium 1.9 mg/dL (1.6-2.6); Potassium 4.1 mmol/L (3.3-5.1); Sodium 139 mmol/L (135-145)
[2021-04-08 05:17] LABS: B Type Natriuretic Peptide 440 pg/mL (<100)
--- NOTE | 2021-04-08 06:14 | PC.NURSE ---
This RN assumed care at 1900. Patient in and out of bed throughout the night, compliant with medication, able to make needs known. Will continue to monitor
[2021-04-08 08:10] LABS: Glucose, Whole Blood 116 mg/dL (60-115)
[2021-04-08] MEDS: Metoprolol Tartrate 12.5 MG HALFTAB PO ×2 (08:45→19:53)
[2021-04-08] MEDS: amLODIPine Besylate 10 MG TABLET PO (08:45)
[2021-04-08] MEDS: Sertraline HCL 50 MG TABLET PO (08:45)
[2021-04-08] MEDS: Folic Acid 1 MG TABLET PO (08:45)
[2021-04-08] MEDS: Spironolactone 25 MG TABLET 12.5 MG PO (08:45)
[2021-04-08] MEDS: Cyanocobalamin (Vitamin B-12) 1,000 MCG TABLET 1000 MCG PO (08:45)
--- NOTE | 2021-04-08 08:59 | PC.NURSE ---
Pt A&Ox3, Lungs dimisnihed in the bases, HR in the 70's on the monitor. No complaints of pain at this time. O2 sat checked, 95% on room air. Medicated as per MAR orders including IV lasix, pt is aware. Report given to Thi. Call parra within reach. Will continue to monitor.
--- NOTE | 2021-04-08 09:32 | P.PNCA_ITS ---
Subjective Subjective Date of Service: 04/08/21 Interval history: she states that she is feeling Ok. No new complaints. Review of Systems Review of Systems Yes all other systems are reviewed and are negative Cardiovascular: Reports as per HPI, Reports no additional cardiovascular complaints, Denies acrocyanosis, Denies cool extremities, Denies chest pain, Denies diaphoresis, Denies syncope, Denies claudication, Denies leg edema, Denies lightheadedness, Denies palpitations and Reports dyspnea Respiratory: Reports dyspnea Denies syncope Endocrine: Denies palpitations Physical Exam Vital Signs: Last Vital Signs Temp 98.8 F 04/08/21 07:25 Pulse 69 04/08/21 07:25 Resp 16 04/08/21 07:25 BP 136/65 04/08/21 07:25 Pulse Ox 95 04/08/21 08:49 BMI result Body Mass Index 37.8 Const General: comfortable HENMT Other: Unremarkable Neck Neck: Yes normal visual inspection Chest Chest palpation & inspection: normal inspection of the chest Resp Other: inspiratory crackles+ Cardio Other: soft S2 Palpation: normal PMI Heart sounds: S1 normal heart sound present, no gallops, Murmur heart sound present (2/6 SHARAN aortic area) and no rubs GI Palpation (GI): Soft to palpation Back/Spine/Pelvis Other: unremarkable Skin Lesions: other Neuro General: other Extrem Other: 1-2+ edema General: Yes other Psych Mental Status: other Objective Labs and Meds Result diagrams: 04/08/21 04:17 04/08/21 04:17 Lab results: Laboratory Results - last 24 hr 04/07/21 04/07/21 04/08/21 12:26 17:58 04:17 WBC RBC Hgb Hct MCV MCH MCHC RDW Plt Count MPV Absolute Nucleated RBC Nucleated RBC % (auto) PT 16.3 H INR 1.4 H Sodium Potassium Chloride Carbon Dioxide Anion Gap BUN Creatinine Estim Creat Clear Calc Estimated GFR POC Glucose 107 96 Fasting Glucose Calcium Magnesium B-Natriuretic Peptide 04/08/21 04/08/21 04/08/21 04:17 04:17 04:17 WBC 4.8 RBC 3.11 L Hgb 10.5 L Hct 31.8 L MCV 102.3 H MCH 33.8 H MCHC 33.0 RDW 19.7 H Plt Count 207 MPV 10.0 Absolute Nucleated RBC 0.000 Nucleated RBC % (auto) 0.0 PT INR Sodium 139 Potassium 4.1 Chloride 99 Carbon Dioxide 28 Anion Gap 16 BUN 18 H Creatinine 0.77 Estim Creat Clear Calc 55.1 Estimated GFR > 60 POC Glucose Fasting Glucose 110 H Calcium 9.6 Magnesium 1.9 B-Natriuretic Peptide 440 H 04/08/21 08:06 WBC RBC Hgb Hct MCV MCH MCHC RDW Plt Count MPV Absolute Nucleated RBC Nucleated RBC % (auto) PT INR Sodium Potassium Chloride Carbon Dioxide Anion Gap BUN Creatinine Estim Creat Clear Calc Estimated GFR POC Glucose 116 H Fasting Glucose Calcium Magnesium B-Natriuretic Peptide Progress Note: A&P Assessment and plan (1) Acute on chronic diastolic (congestive) heart failure: Status: Acute (2) Nonrheumatic aortic valve stenosis: Status: Acute (3) Persistent atrial fibrillation: Status: Acute (4) Pulmonary hypertension: Status: Acute Plan Echocardiogram completed as today with preserved LVEF of 61%. Mean gradient a cross aortic valve was 28 mm Hg with a calculated valve area of 0.7 sq cm. Dimensionless index was 0.22. Stroke volume index was diminished. Overall suggestive of low gradient low-flow severe aortic stenosis. This is somewhat similar to the study from few months ago. Unremarkable troponins in this admission. Cardiac BNP 423. Discussed with patient regarding findings on the echocardiogram and treatment options including a diagnostic catheterization and workup towards TAVR. She seems to possibly understand but it does not appear that she has much of support at home as the is also quite ill and children do not live nearby. Hence at this time we will diurese her and then probably need to get input from director social service regarding transport extra for further care including office a ppointments, catheterization extra. Atrial fibrillation seems rate controlled and she is also on anticoagulation. Discussed with Dr. Lopez. Fall Risk Details Current Medications: Current Medications Acetaminophen (Acetaminophen 325 Mg Tablet) 650 mg PO Q6H PRN PRN Reason: mild pain Last Admin: 04/07/21 20:50 Dose: 650 mg Documented by: Amlodipine Besylate (Amlodipine Besylate 10 Mg Tablet) 10 mg PO DAILY [facility]; Protocol Last Admin: 04/08/21 08:45 Dose: 10 mg Documented by: Cyanocobalamin (Cyanocobalamin (Vitamin B-12) 1,000 Mcg Tablet) 1,000 mcg PO DAILY [facility] Last Admin: 04/08/21 08:45 Dose: 1,000 mcg Documented by: Folic Acid (Folic Acid 1 Mg Tablet) 1 mg PO DAILY [facility] Last Admin: 04/08/21 08:45 Dose: 1 mg Documented by: Furosemide (Furosemide 40 Mg/4 Ml Vial) 40 mg IVPUSH BID@0900,1800 [facility]; Protocol Last Admin: 04/07/21 17:59 Dose: 40 mg Documented by: Ceftriaxone Sodium 1 gm/ (Sodium Chloride) 50 mls @ 100 mls/hr IV Q24H [facility] Last Infusion: 04/07/21 16:58 Dose: Infused Documented by: Metoprolol Tartrate (Metoprolol Tartrate 12.5 Mg Halftab) 12.5 mg PO BID [facility]; Protocol Last Admin: 04/08/21 08:45 Dose: 12.5 mg Documented by: Pharmacy Consult (Consult Rx Perform Med Rec) 1 each MISCELLANE ONCE PRN PRN Reason: Consult order Sertraline HCl (Sertraline Hcl 50 Mg Tablet) 50 mg PO DAILY [facility] Last Admin: 04/08/21 08:45 Dose: 50 mg Documented by: Sodium Chloride (0.9 % Sodium Chloride Flush 3 Ml Syringe) 3 ml IVFLUSH QSHIFT [facility] Last Admin: 04/08/21 01:17 Dose: Not Given Documented by: Spironolactone (Spironolactone 25 Mg Tablet) 12.5 mg PO DAILY [facility]; Protocol Last Admin: 04/08/21 08:45 Dose: 12.5 mg Documented by: Trazodone HCl (Trazodone Hcl 25 Mg Halftab) 25 mg PO BEDTIME PRN PRN Reason: sleep Warfarin Sodium (Warfarin Sodium 1 Mg Tablet) 1 mg PO DAILY@1800 [facility] Last Admin: 04/07/21 17:59 Dose: 1 mg Documented by: Time Spent With Patient Time: Total time spent is greater than 50% in coordination of care (as documented) at patient's floor/unit and/or counseling patient: Time with patient: less than 15 minutes Progress Note: Quality Stroke Does the patient have a stroke diagnosis?: No Procedures Date of Service Date of Service: 04/08/21
[2021-04-08] MEDS: 0.9 % Sodium Chloride Flush 3 ML SYRINGE IVFLUSH ×3 (09:40→19:54)
[2021-04-08] MEDS: Furosemide 40 MG/4 ML VIAL IVPUSH ×2 (09:40→17:23)
--- NOTE | 2021-04-08 10:58 | HO.PM.IMPN ---
Subjective Subjective Date of Service: 04/08/21 Interval History: the patient was seen and evaluated this morning Laying in bed, feels some improvement since yesterday Denies any fever, chills or chest pain No reported other overnight events. Systemic review: No fever, chills or weakness No chest pain, palpitation dyspnea on exertion, edema No abdominal pain, nausea or vomiting No urinary symptoms No any rash or wounds Physical Exam Vital Signs: Vital Signs: Last Vital Signs Temp 98.3 F 04/08/21 10:16 Pulse 66 04/08/21 10:16 Resp 20 04/08/21 10:16 BP 109/59 L 04/08/21 10:16 Pulse Ox 96 04/08/21 10:16 BMI result Body Mass Index 37.8 Const: Other: Constitutional : Alert, oriented, not in distress Neck : Normal inspection, Supple Cardiovascular : RRR, S1 S2, systolic murmur, +1 bilateral lower extremity edema Respiratory : Good bilateral air entry, basal bilateral fine crackles, wheezes or rhonchi Gastrointestinal: soft, lax, Normal bowel sounds, Non tender Skin : Warm, Dry Neurological : Alert & oriented x3, No focal deficit Objective Data Active Medications Acetaminophen (Acetaminophen 325 Mg Tablet) 650 mg PO Q6H PRN PRN Reason: mild pain Last Admin: 04/07/21 20:50 Dose: 650 mg Documented by: AKIKO Amlodipine Besylate (Amlodipine Besylate 10 Mg Tablet) 10 mg PO DAILY [facility]; Protocol Last Admin: 04/08/21 08:45 Dose: 10 mg Documented by: CHEVY Cyanocobalamin (Cyanocobalamin (Vitamin B-12) 1,000 Mcg Tablet) 1,000 mcg PO DAILY [facility] Last Admin: 04/08/21 08:45 Dose: 1,000 mcg Documented by: CHEVY Folic Acid (Folic Acid 1 Mg Tablet) 1 mg PO DAILY [facility] Last Admin: 04/08/21 08:45 Dose: 1 mg Documented by: UNA-NAN Furosemide (Furosemide 40 Mg/4 Ml Vial) 40 mg IVPUSH BID@0900,1800 [facility]; Protocol Last Admin: 04/08/21 09:40 Dose: 40 mg Documented by: UNA-NAN Ceftriaxone Sodium 1 gm/ (Sodium Chloride) 50 mls @ 100 mls/hr IV Q24H [facility] Last Infusion: 04/07/21 16:58 Dose: 0 mls/hr Documented by: CHEVY Metoprolol Tartrate (Metoprolol Tartrate 12.5 Mg Halftab) 12.5 mg PO BID [facility]; Protocol Last Admin: 04/08/21 08:45 Dose: 12.5 mg Documented by: CHEVY Pharmacy Consult (Consult Rx Perform Med Rec) 1 each MISCELLANE ONCE PRN PRN Reason: Consult order Sertraline HCl (Sertraline Hcl 50 Mg Tablet) 50 mg PO DAILY [facility] Last Admin: 04/08/21 08:45 Dose: 50 mg Documented by: CHEVY Sodium Chloride (0.9 % Sodium Chloride Flush 3 Ml Syringe) 3 ml IVFLUSH QSHIFT [facility] Last Admin: 04/08/21 09:40 Dose: 3 ml Documented by: CHEVY Spironolactone (Spironolactone 25 Mg Tablet) 12.5 mg PO DAILY [facility]; Protocol Last Admin: 04/08/21 08:45 Dose: 12.5 mg Documented by: CHEVY Trazodone HCl (Trazodone Hcl 25 Mg Halftab) 25 mg PO BEDTIME PRN PRN Reason: sleep Warfarin Sodium (Warfarin Sodium 1 Mg Tablet) 1 mg PO DAILY@1800 [facility] Last Admin: 04/07/21 17:59 Dose: 1 mg Documented by: CHEVY Labs CBC & Chem 7: 04/08/21 04:17 04/08/21 04:17 Labs: Laboratory Results - last 24 hr 04/07/21 04/07/21 04/08/21 12:26 17:58 04:17 MCV MCH MCHC RDW Plt Count MPV Absolute Nucleated RBC Nucleated RBC % (auto) PT 16.3 H INR 1.4 H Anion Gap Estim Creat Clear Calc Estimated GFR POC Glucose 107 96 Fasting Glucose Calcium Magnesium B-Natriuretic Peptide 04/08/21 04/08/21 04/08/21 04:17 04:17 04:17 MCV 102.3 H MCH 33.8 H MCHC 33.0 RDW 19.7 H Plt Count 207 MPV 10.0 Absolute Nucleated RBC 0.000 Nucleated RBC % (auto) 0.0 PT INR Anion Gap 16 Estim Creat Clear Calc 55.1 Estimated GFR > 60 POC Glucose Fasting Glucose 110 H Calcium 9.6 Magnesium 1.9 B-Natriuretic Peptide 440 H 04/08/21 08:06 MCV MCH MCHC RDW Plt Count MPV Absolute Nucleated RBC Nucleated RBC % (auto) PT INR Anion Gap Estim Creat Clear Calc Estimated GFR POC Glucose 116 H Fasting Glucose Calcium Magnesium B-Natriuretic Peptide Microbiology Microbiology Results: Microbiology 04/06/21 00:00 Urine Culture - Final Urine clean catch - Urine gamboa top Enterobacter aerogenes 04/06/21 13:14 Blood Culture - Preliminary Blood - Venous No growth after 24 hours. 04/06/21 13:14 Blood Culture - Preliminary Blood - Venous No growth after 24 hours. Assessment and Plan (1) CHF exacerbation: Status: Acute (2) UTI (urinary tract infection): Status: Acute (3) Pancytopenia: Status: Acute Plan 80F presented with sob Acute hypoxic respiratory failure secondary to acute on chronic CHF with preserved ejection fraction moderate pulm htn, and severe aortic stenosis improving continue IV Lasix Monitor electrolytes cardio appreciated, likely needs outpatient follow up for TAVR UTI treat with ceftriaxone, follow-up cultures - GNR in urine Pancytopenia Multifactorial, has splenomegaly with retroperitoneal lymph nodes is following with Hematology as outpatient B12 deficiency- continue supplement Chronic atrial fibrillation Coumadin and metoprolol Monitor INR, currently subtherapeutic - 1.4 Hypertension Lopressor, Aldactone, amlodipine Mood disorder Sertraline Full code Quality Stroke Does the patient have a stroke diagnosis?: No VTE Prior VTE?: No VTE Risk Level:: Medical - moderate - high VTE Device Contraindication: Treatment Not Indicated VTE Drug Contraindication: N/A - Med Ordered
[2021-04-08] MEDS: cefTRIAXone sodium 1 GM in 0.9 % Sodium Chloride 50 ML IV (14:24)
[2021-04-08 15:53] LABS: Glucose, Whole Blood 113 mg/dL (60-115)
[2021-04-08] MEDS: Warfarin Sodium 1 MG TABLET PO (17:23)
[2021-04-08 19:49] LABS: Glucose, Whole Blood 166 mg/dL (60-115)
[2021-04-08] MEDS: Acetaminophen 325 MG TABLET 650 MG PO (23:31)
[2021-04-09] VITALS (7 sets, daily range): BP systolic 97–144; BP diastolic 52–71; PULSE 63–94; RESP 16–20; TEMP 35.8–37; O2SAT 93–95
[2021-04-09 06:20] LABS: Hematocrit 32.3 % (37.0-47.0); Hemoglobin 10.5 g/dl (12.0-16.0); Mean Corpuscular HGB Conc 32.5 g/dl (31.0-35.0); Mean Corpuscular Hemoglobin 32.5 pg (27.0-33.0); Platelet Count 184 X10*3/uL (160-400); Red Blood Count 3.23 X10*6/uL (4.20-5.50); Red Cell Distribution Width 19.2 % (11.0-16.0); White Blood Count 4.4 X10*3/uL (4.8-10.8)
[2021-04-09 06:33] LABS: INTERNATIONAL NORM RATIO 1.5 (0.9-1.1); Prothrombin Time 16.7 SEC (9.9-13.0)
[2021-04-09 06:41] LABS: Anion Gap 13 (12-20); Blood Urea Nitrogen 21 mg/dL (9-16); Calcium 9.2 mg/dL (8.4-10.2); Carbon Dioxide 32 mmol/L (22-29); Chloride 98 mmol/L (96-108); Creatinine Clr Calc Pharmacy 58.1; Estimated Glomerular Filt Rate > 60; Glucose Random 103 mg/dL (60-115); Potassium 3.8 mmol/L (3.3-5.1); Sodium 139 mmol/L (135-145)
[2021-04-09 07:06] LABS: Glucose, Whole Blood 105 mg/dL (60-115)
[2021-04-09 09:02] LABS: B Type Natriuretic Peptide 359 pg/mL (<100)
[2021-04-09] MEDS: 0.9 % Sodium Chloride Flush 3 ML SYRINGE IVFLUSH ×2 (09:06→17:33)
[2021-04-09] MEDS: Folic Acid 1 MG TABLET PO (09:06)
[2021-04-09] MEDS: Metoprolol Tartrate 12.5 MG HALFTAB PO ×2 (09:07→20:08)
[2021-04-09] MEDS: Spironolactone 25 MG TABLET 12.5 MG PO (09:07)
[2021-04-09] MEDS: Cyanocobalamin (Vitamin B-12) 1,000 MCG TABLET 1000 MCG PO (09:07)
[2021-04-09] MEDS: Sertraline HCL 50 MG TABLET PO (09:07)
[2021-04-09] MEDS: amLODIPine Besylate 10 MG TABLET PO (09:07)
[2021-04-09] MEDS: Furosemide 40 MG/4 ML VIAL IVPUSH ×2 (09:09→17:30)
--- NOTE | 2021-04-09 10:47 | HO.PM.IMPN ---
Subjective Subjective Date of Service: 04/09/21 Interval History: The patient was seen and evaluated this morning Laying in bed, feels some improvement since yesterdayBut still having dyspnea upon ambulation and edema BNP still 350 Denies any fever, chills or chest pain No reported other overnight events. Systemic review: No fever, chills or weakness No chest pain, palpitation dyspnea on exertion, edema No abdominal pain, nausea or vomiting No urinary symptoms No any rash or wounds Physical Exam Vital Signs: Vital Signs: Last Vital Signs Temp 96.9 F 04/09/21 07:31 Pulse 75 04/09/21 10:05 Resp 20 04/09/21 07:31 BP 130/71 04/09/21 10:05 Pulse Ox 95 04/09/21 10:05 BMI result Body Mass Index 37.8 Const: Other: Constitutional : Alert, oriented, not in distress Neck : Normal inspection, Supple Cardiovascular : RRR, S1 S2, systolic murmur, +1 bilateral lower extremity edema Respiratory : Good bilateral air entry, basal bilateral fine crackles, wheezes or rhonchi Gastrointestinal: soft, lax, Normal bowel sounds, Non tender Skin : Warm, Dry Neurological : Alert & oriented x3, No focal deficit Objective Data Active Medications Acetaminophen (Acetaminophen 325 Mg Tablet) 650 mg PO Q6H PRN PRN Reason: mild pain Last Admin: 04/08/21 23:31 Dose: 650 mg Documented by: FILIBERTO Amlodipine Besylate (Amlodipine Besylate 10 Mg Tablet) 10 mg PO DAILY [facility]; Protocol Last Admin: 04/09/21 09:07 Dose: 10 mg Documented by: JUAN Cyanocobalamin (Cyanocobalamin (Vitamin B-12) 1,000 Mcg Tablet) 1,000 mcg PO DAILY [facility] Last Admin: 04/09/21 09:07 Dose: 1,000 mcg Documented by: JUAN Folic Acid (Folic Acid 1 Mg Tablet) 1 mg PO DAILY [facility] Last Admin: 04/09/21 09:06 Dose: 1 mg Documented by: JUAN Furosemide (Furosemide 40 Mg/4 Ml Vial) 40 mg IVPUSH BID@0900,1800 [facility]; Protocol Last Admin: 04/09/21 09:09 Dose: 40 mg Documented by: JUAN Ceftriaxone Sodium 1 gm/ (Sodium Chloride) 50 mls @ 100 mls/hr IV Q24H [facility] Last Infusion: 04/08/21 14:53 Dose: 0 mls/hr Documented by: EMILIA Insulin Human Lispro (Insulin Lispro 100 Unit/Ml 3 Ml Vial) 0 unit SUBCUT QIDACHS [facility]; Protocol Last Admin: 04/09/21 07:40 Dose: Not Given Documented by: JUAN Non-Admin Reason: bs 105 Metoprolol Tartrate (Metoprolol Tartrate 12.5 Mg Halftab) 12.5 mg PO BID [facility]; Protocol Last Admin: 04/09/21 09:07 Dose: 12.5 mg Documented by: JUAN Pharmacy Consult (Consult Rx Perform Med Rec) 1 each MISCELLANE ONCE PRN PRN Reason: Consult order Sertraline HCl (Sertraline Hcl 50 Mg Tablet) 50 mg PO DAILY [facility] Last Admin: 04/09/21 09:07 Dose: 50 mg Documented by: JUAN Sodium Chloride (0.9 % Sodium Chloride Flush 3 Ml Syringe) 3 ml IVFLUSH QSHIFT [facility] Last Admin: 04/09/21 09:06 Dose: 3 ml Documented by: JUAN Spironolactone (Spironolactone 25 Mg Tablet) 12.5 mg PO DAILY [facility]; Protocol Last Admin: 04/09/21 09:07 Dose: 12.5 mg Documented by: JUAN Trazodone HCl (Trazodone Hcl 25 Mg Halftab) 25 mg PO BEDTIME PRN PRN Reason: sleep Warfarin Sodium (Warfarin Sodium 2 Mg Tablet) 2 mg PO DAILY@1800 [facility] Labs CBC & Chem 7: 04/09/21 06:05 04/09/21 06:05 Labs: Laboratory Results - last 24 hr 04/08/21 04/08/21 04/09/21 15:16 19:19 06:05 MCV MCH MCHC RDW Plt Count MPV Absolute Nucleated RBC Nucleated RBC % (auto) PT 16.7 H INR 1.5 H Anion Gap Estim Creat Clear Calc Estimated GFR POC Glucose 113 166 H Random Glucose Calcium B-Natriuretic Peptide 04/09/21 04/09/21 04/09/21 06:05 06:05 06:05 MCV 100.0 H MCH 32.5 MCHC 32.5 RDW 19.2 H Plt Count 184 MPV 10.0 Absolute Nucleated RBC 0.000 Nucleated RBC % (auto) 0.0 PT INR Anion Gap 13 Estim Creat Clear Calc 58.1 Estimated GFR > 60 POC Glucose Random Glucose 103 Calcium 9.2 B-Natriuretic Peptide 359 H 04/09/21 06:59 MCV MCH MCHC RDW Plt Count MPV Absolute Nucleated RBC Nucleated RBC % (auto) PT INR Anion Gap Estim Creat Clear Calc Estimated GFR POC Glucose 105 Random Glucose Calcium B-Natriuretic Peptide Microbiology Microbiology Results: Microbiology 04/06/21 13:14 Blood Culture - Preliminary Blood - Venous No growth after 48 hours. 04/06/21 13:14 Blood Culture - Preliminary Blood - Venous No growth after 48 hours. 04/06/21 00:00 Urine Culture - Final Urine clean catch - Urine gamboa top Enterobacter aerogenes Assessment and Plan (1) Pancytopenia: Status: Acute (2) Acute on chronic anemia: Status: Acute (3) UTI (urinary tract infection): Status: Acute (4) CHF exacerbation: Status: Acute Plan 80F presented with sob Acute hypoxic respiratory failure, resolved secondary to acute on chronic CHF with preserved ejection fraction moderate pulm htn, and severe aortic stenosis improving continue IV Lasix Monitor electrolytes cardio appreciated, likely needs outpatient follow up for TAVR UTI treat with ceftriaxone follow-up cultures - Enterobacter in urine sensitive to ceftriaxone Pancytopenia Multifactorial, has splenomegaly with retroperitoneal lymph nodes is following with Hematology as outpatient B12 deficiency- continue supplement Chronic atrial fibrillation Coumadin and metoprolol Monitor INR, currently subtherapeutic - 1.5 increase warfarin to 2 mg today Hypertension Lopressor, Aldactone, amlodipine Mood disorder Sertraline Full code Quality Stroke Does the patient have a stroke diagnosis?: No VTE Prior VTE?: No VTE Risk Level:: Medical - moderate - high VTE Device Contraindication: Treatment Not Indicated VTE Drug Contraindication: N/A - Med Ordered
[2021-04-09 10:54] LABS: Glucose, Whole Blood 147 mg/dL (60-115)
--- NOTE | 2021-04-09 11:31 | PM.PNCARD ---
Subjective Subjective Date of Service: 04/09/21 Interval history: Feels better. But still gets short of breath with activity. Review of Systems Review of Systems Yes all other systems are reviewed and are negative Cardiovascular: Reports as per HPI, Reports no additional cardiovascular complaints, Denies acrocyanosis, Denies cool extremities, Denies chest pain, Denies diaphoresis, Denies syncope, Denies claudication, Denies leg edema, Denies lightheadedness, Denies palpitations and Reports dyspnea Respiratory: Reports dyspnea Denies syncope Endocrine: Denies palpitations Physical Exam Vital Signs: Last Vital Signs Temp 96.5 F L 04/09/21 11:07 Pulse 68 04/09/21 11:07 Resp 20 04/09/21 11:07 BP 97/52 L 04/09/21 11:07 Pulse Ox 94 04/09/21 11:07 BMI result Body Mass Index 37.8 Const General: comfortable HENMT Other: Unremarkable Neck Neck: Yes normal visual inspection Chest Chest palpation & inspection: normal inspection of the chest Resp Other: inspiratory crackles+ Cardio Other: soft S2 Palpation: normal PMI Heart sounds: S1 normal heart sound present, no gallops, Murmur heart sound present (2/6 SHARAN aortic area) and no rubs GI Palpation (GI): Soft to palpation Back/Spine/Pelvis Other: unremarkable Skin Lesions: other Neuro General: other Extrem Other: 1-2+ edema General: Yes other Psych Mental Status: other Objective Labs and Meds Result diagrams: 04/09/21 06:05 04/09/21 06:05 Lab results: Laboratory Results - last 24 hr 04/08/21 04/08/21 04/09/21 15:16 19:19 06:05 WBC RBC Hgb Hct MCV MCH MCHC RDW Plt Count MPV Absolute Nucleated RBC Nucleated RBC % (auto) PT 16.7 H INR 1.5 H Sodium Potassium Chloride Carbon Dioxide Anion Gap BUN Creatinine Estim Creat Clear Calc Estimated GFR POC Glucose 113 166 H Random Glucose Calcium B-Natriuretic Peptide 04/09/21 04/09/21 04/09/21 06:05 06:05 06:05 WBC 4.4 L RBC 3.23 L Hgb 10.5 L Hct 32.3 L MCV 100.0 H MCH 32.5 MCHC 32.5 RDW 19.2 H Plt Count 184 MPV 10.0 Absolute Nucleated RBC 0.000 Nucleated RBC % (auto) 0.0 PT INR Sodium 139 Potassium 3.8 Chloride 98 Carbon Dioxide 32 H Anion Gap 13 BUN 21 H Creatinine 0.73 Estim Creat Clear Calc 58.1 Estimated GFR > 60 POC Glucose Random Glucose 103 Calcium 9.2 B-Natriuretic Peptide 359 H 04/09/21 04/09/21 06:59 10:49 WBC RBC Hgb Hct MCV MCH MCHC RDW Plt Count MPV Absolute Nucleated RBC Nucleated RBC % (auto) PT INR Sodium Potassium Chloride Carbon Dioxide Anion Gap BUN Creatinine Estim Creat Clear Calc Estimated GFR POC Glucose 105 147 H Random Glucose Calcium B-Natriuretic Peptide Progress Note: A&P Assessment and plan (1) Acute on chronic diastolic (congestive) heart failure: Status: Acute (2) Nonrheumatic aortic valve stenosis: Status: Acute (3) Persistent atrial fibrillation: Status: Acute (4) Pulmonary hypertension: Status: Acute Plan Echocardiogram with preserved LVEF of 61%. Mean gradient across aortic valve was 28 mm Hg with a calculated valve area of 0.7 sq cm. Dimensionless index was 0.22. Stroke volume index was diminished. Overall suggestive of low gradient low-flow severe aortic stenosis. This is somewhat similar to the study from few months ago. Unremarkable troponins in this admission. Cardiac BNP 423. Discussed with patient regarding findings on the echocardiogram and treatment options including a diagnostic catheterization and workup towards TAVR. She seems to possibly understand but it does not appear that she has much of support at home as the is also quite ill and children do not live nearby. For now diurese. Atrial fibrillation seems rate controlled and she is also on anticoagulation. Will try to arrange office appt soon and address above issues. Discussed with Dr. Lopez. Fall Risk Details Current Medications: Current Medications Acetaminophen (Acetaminophen 325 Mg Tablet) 650 mg PO Q6H PRN PRN Reason: mild pain Last Admin: 04/08/21 23:31 Dose: 650 mg Documented by: Amlodipine Besylate (Amlodipine Besylate 10 Mg Tablet) 10 mg PO DAILY [facility]; Protocol Last Admin: 04/09/21 09:07 Dose: 10 mg Documented by: Cyanocobalamin (Cyanocobalamin (Vitamin B-12) 1,000 Mcg Tablet) 1,000 mcg PO DAILY [facility] Last Admin: 04/09/21 09:07 Dose: 1,000 mcg Documented by: Folic Acid (Folic Acid 1 Mg Tablet) 1 mg PO DAILY [facility] Last Admin: 04/09/21 09:06 Dose: 1 mg Documented by: Furosemide (Furosemide 40 Mg/4 Ml Vial) 40 mg IVPUSH BID@0900,1800 [facility]; Protocol Last Admin: 04/09/21 09:09 Dose: 40 mg Documented by: Ceftriaxone Sodium 1 gm/ (Sodium Chloride) 50 mls @ 100 mls/hr IV Q24H [facility] Last Infusion: 04/08/21 14:53 Dose: Infused Documented by: Insulin Human Lispro (Insulin Lispro 100 Unit/Ml 3 Ml Vial) 0 unit SUBCUT QIDACHS [facility]; Protocol Last Admin: 04/09/21 11:19 Dose: Not Given Documented by: Metoprolol Tartrate (Metoprolol Tartrate 12.5 Mg Halftab) 12.5 mg PO BID [facility]; Protocol Last Admin: 04/09/21 09:07 Dose: 12.5 mg Documented by: Pharmacy Consult (Consult Rx Perform Med Rec) 1 each MISCELLANE ONCE PRN PRN Reason: Consult order Sertraline HCl (Sertraline Hcl 50 Mg Tablet) 50 mg PO DAILY [facility] Last Admin: 04/09/21 09:07 Dose: 50 mg Documented by: Sodium Chloride (0.9 % Sodium Chloride Flush 3 Ml Syringe) [facility] Last Admin: 04/09/21 09:06 Dose: 3 ml Documented by: Spironolactone (Spironolactone 25 Mg Tablet) 12.5 mg PO DAILY [facility]; Protocol Last Admin: 04/09/21 09:07 Dose: 12.5 mg Documented by: Trazodone HCl (Trazodone Hcl 25 Mg Halftab) 25 mg PO BEDTIME PRN PRN Reason: sleep Warfarin Sodium (Warfarin Sodium 2 Mg Tablet) 2 mg PO DAILY@1800 [facility] Time Spent With Patient Time: Total time spent is greater than 50% in coordination of care (as documented) at patient's floor/unit and/or counseling patient: Time with patient: less than 15 minutes Progress Note: Quality Stroke Does the patient have a stroke diagnosis?: No Procedures Date of Service Date of Service: 04/09/21
[2021-04-09] MEDS: cefTRIAXone sodium 1 GM in 0.9 % Sodium Chloride 50 ML IV (14:22)
[2021-04-09 16:24] LABS: Glucose, Whole Blood 159 mg/dL (60-115)
[2021-04-09] MEDS: Insulin Lispro 100 UNIT/ML 3 ML VIAL SUBCUT (17:32)
[2021-04-09] MEDS: Warfarin Sodium 2 MG TABLET PO (17:34)
[2021-04-09] MEDS: traZODone HCL 25 MG HALFTAB PO (20:08)
[2021-04-09] MEDS: Acetaminophen 325 MG TABLET 650 MG PO (20:09)
[2021-04-09 20:30] LABS: Glucose, Whole Blood 131 mg/dL (60-115)
[2021-04-10 04:00] VITALS: BP 125/71; PULSE 71; RESP 18; TEMP 36.7; O2SAT 92
[2021-04-10 07:00] LABS: INTERNATIONAL NORM RATIO 1.4 (0.9-1.1); Prothrombin Time 15.8 SEC (9.9-13.0)
[2021-04-10 07:02] LABS: Anion Gap 13 (12-20); Blood Urea Nitrogen 24 mg/dL (9-16); Calcium 9.4 mg/dL (8.4-10.2); Carbon Dioxide 32 mmol/L (22-29); Chloride 98 mmol/L (96-108); Creatinine Clr Calc Pharmacy 57.3; Estimated Glomerular Filt Rate > 60; Glucose Random 109 mg/dL (60-115); Potassium 3.8 mmol/L (3.3-5.1); Sodium 139 mmol/L (135-145)
[2021-04-10 07:06] LABS: B Type Natriuretic Peptide 291 pg/mL (<100)
[2021-04-10 07:35] LABS: Glucose, Whole Blood 108 mg/dL (60-115)
[2021-04-10 08:00] VITALS: BP 125/73; PULSE 69; RESP 20; TEMP 36; O2SAT 93
[2021-04-10] MEDS: Metoprolol Tartrate 12.5 MG HALFTAB PO (08:28)
[2021-04-10] MEDS: Sertraline HCL 50 MG TABLET PO (08:28)
[2021-04-10] MEDS: amLODIPine Besylate 10 MG TABLET PO (08:29)
[2021-04-10] MEDS: Folic Acid 1 MG TABLET PO (08:29)
[2021-04-10] MEDS: Cyanocobalamin (Vitamin B-12) 1,000 MCG TABLET 1000 MCG PO (08:29)
[2021-04-10] MEDS: Spironolactone 25 MG TABLET 12.5 MG PO (08:29)
[2021-04-10] MEDS: Furosemide 40 MG/4 ML VIAL IVPUSH (08:31)
[2021-04-10] MEDS: 0.9 % Sodium Chloride Flush 3 ML SYRINGE IVFLUSH (08:31)
[2021-04-10 10:14] VITALS: BP 125/73; PULSE 69; O2SAT 93
--- NOTE | 2021-04-10 10:46 | PM.DS ---
DS: Providers Provider Date of Service: 04/10/21 Date of admission: 04/06/21 14:59 Primary care physician: Riccardo Page MD Consults: 04/06/21 14:52 Consult to Cardiology Routine Consulting Provider: Alfie Jarvis Reason for consultation: chf, DS: Diagnosis Discharge Diagnosis (1) Acute on chronic diastolic (congestive) heart failure: Status: Acute (2) Nonrheumatic aortic valve stenosis: Status: Acute (3) Pulmonary hypertension: Status: Acute (4) Pancytopenia: Status: Acute (5) UTI (urinary tract infection): Status: Acute DS: Summary Hospital Course Hospital Course: Admission note HPI 80-year-old female with past medical history of chronic diastolic CHF with severe aortic stenosis and pulmonary hypertension presented with 1 day of shortness of breath.? Patient states that she was feeling well on day prior to presentation.? At 01:00 on day of presentation patient was doing laundry and began to feel extremely short of breath.? She tried to rest but shortness of breath did not resolve so she called EMS.? Patient does note worsening lower extremity edema over the past month, she reports having to sleep in her recliner.? Denies chest pain, fever, chills, cough.? In ED noted to be hypoxic on room air to 88%.? CTA was unremarkable. Hospital course The patient was admitted to the hospital for evaluation of acute hypoxic respiratory failure secondary to acute on chronic CHF exacerbation as a result of severe aortic stenosis and moderate pulmonary hypertension that was evaluated by Cardiology team and treated with IV Lasix with good response as she was weaned off the oxygen. Cardiology recommended follow-up as outpatient for possible surgical intervention for TAVR. She was noted to have a UTI with urine growing sensitive in 0 bacteriuria. Received ceftriaxone and will be discharged on Ceftin. Time Spent with Patient Time attestation: Total time spent providing and/or coordinating discharge services: Discharge coordination time: Greater than 30 minutes Quality: Stroke Does the patient have a stroke diagnosis?: No Physical Exam Vital Signs: Vital Signs: Last Vital Signs Temp 96.8 F 04/10/21 08:00 Pulse 69 04/10/21 10:14 Resp 20 04/10/21 08:00 BP 125/73 04/10/21 10:14 Pulse Ox 93 04/10/21 10:14 BMI result Body Mass Index 37.8 Const: Other: Constitutional : Alert, oriented, not in distress Neck : Normal inspection, Supple Cardiovascular : RRR, S1 S2, systolic murmur, trace bilateral lower extremity edema Respiratory : Good bilateral air entry, basal bilateral fine crackles, wheezes or rhonchi Gastrointestinal: soft, lax, Normal bowel sounds, Non tender Skin : Warm, Dry Neurological : Alert & oriented x3, No focal deficit DS: Data Data Completed and Pending Completed studies during hospitalization [Text1]: Procedures Transfusion of Nonautologous Red Blood Cells into Peripheral Vein, Percutaneous Approach (01/01/21) Labs on day of discharge: Laboratory Results - last 24 hr 04/09/21 04/09/21 04/09/21 10:49 15:57 20:16 PT INR Sodium Potassium Chloride Carbon Dioxide Anion Gap BUN Creatinine Estim Creat Clear Calc Estimated GFR POC Glucose 147 H 159 H 131 H Random Glucose Calcium B-Natriuretic Peptide 04/10/21 04/10/21 04/10/21 06:17 06:17 06:17 PT 15.8 H INR 1.4 H Sodium 139 Potassium 3.8 Chloride 98 Carbon Dioxide 32 H Anion Gap 13 BUN 24 H Creatinine 0.74 Estim Creat Clear Calc 57.3 Estimated GFR > 60 POC Glucose Random Glucose 109 Calcium 9.4 B-Natriuretic Peptide 291 H 04/10/21 07:31 PT INR Sodium Potassium Chloride Carbon Dioxide Anion Gap BUN Creatinine Estim Creat Clear Calc Estimated GFR POC Glucose 108 Random Glucose Calcium B-Natriuretic Peptide Preliminary micro results at discharge 04/06/21 13:14 Blood Culture - Preliminary Blood - Venous No growth after 48 hours. 04/06/21 13:14 Blood Culture - Preliminary Blood - Venous No growth after 48 hours. Discharge Plan Discharge Patient Disposition: Home Health Service Discharge Diagnosis: Heart failure exacerbation Referrals: Riccardo Page MD [Primary Care Provider] - 1 Week Discharge Medications: New cefuroxime axetil 250 mg tablet 250 mg PO BID Qty: 4 0RF Continued (DME) OneTouch Ultra Blue Test Strip Strip See Rx Instructions .ROUTE .MEDSUPPLY Qty: 250 3RF Rx Instructions: Twice a day (DME) blood-glucose meter [OneTouch Ultra2 Meter] Kit See Rx Instructions .ROUTE .MEDSUPPLY Qty: 1 0RF Rx Instructions: As directed check the blood sugar once a day trazodone 50 mg tablet 25 mg PO BEDTIME PRN (Reason: sleep) Qty: 90 1RF warfarin 1 mg tablet 1 mg PO DAILY 0RF folic acid 1 mg Tablet 1 mg PO DAILY 0RF furosemide 40 mg tablet 1 tab PO DAILY 0RF acetaminophen 500 mg Tablet 500 mg PO BEDTIME 0RF cholecalciferol (vitamin D3) 1,250 mcg (50,000 unit) capsule 1,250 mcg PO PICKARD 0RF cyanocobalamin (vitamin B-12) [Vitamin B-12] 1,000 mcg Tablet 1,000 mcg PO DAILY Qty: 30 0RF spironolactone 25 mg Tablet 12.5 mg PO DAILY Qty: 30 0RF Protocol: Hold for SBP< HOLD for SBP < : 90 amlodipine 10 mg Tablet 10 mg PO DAILY Qty: 30 0RF Protocol: Hold for SBP< HOLD for SBP < : 90 metoprolol tartrate 25 mg tablet 12.5 mg PO BID Qty: 60 0RF sertraline 50 mg tablet 50 mg PO DAILY 30 Days Qty: 30 0RF Discharge Orders: Discharge Order (Routine); Ordered 04/10/21 Ordered By: Terri Lopez Diet: advance to usual diet Activity on Discharge: As tolerated Stand Alone Forms: Patient Portal Discharge page Care Plan Goals: Read below Health Concerns: Read below Plan of Treatment: Read below Assessment: You were admitted to the hospital for treatment of heart failure exacerbation. Evaluated by Cardiology team and received IV Lasix with good response. You were noted to have urinary tract infection treated with IV antibiotics. 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
--- NOTE | 2021-04-10 11:22 | MHC.CM.PN ---
PT CLEARED TO DC HOME TODAY WITH [facility] TO TRANSPORT [facility] WAS CONTACTED VIA T/C ([phone]) THEY DID NOT RESPOND IN ALLSCRIPTS. THEY WERE INFORMED OF PTS DC AND CONFIRMED PT IS ACTIVE AND THEY ARE ABLE TO RESUME SERVICES. PTS DC SUMMARY FAXED TO THEM AT [phone]
[2021-04-10 11:29] LABS: Glucose, Whole Blood 105 mg/dL (60-115)
[2021-04-10 12:00] VITALS: BP 117/52; PULSE 66; RESP 18; TEMP 37; O2SAT 93
--- NOTE | 2021-04-10 12:14 | P.PNCA_ITS ---
Subjective Subjective Date of Service: 04/10/21 Interval history: No symptoms at rest; short of breath with activity. Review of Systems Review of Systems Yes all other systems are reviewed and are negative Cardiovascular: Reports as per HPI, Reports no additional cardiovascular complaints, Denies acrocyanosis, Denies cool extremities, Denies chest pain, Denies diaphoresis, Denies syncope, Denies claudication, Denies leg edema, Denies lightheadedness, Denies palpitations and Reports dyspnea Respiratory: Reports dyspnea Denies syncope Endocrine: Denies palpitations Physical Exam Vital Signs: Last Vital Signs Temp 96.8 F 04/10/21 08:00 Pulse 69 04/10/21 10:14 Resp 20 04/10/21 08:00 BP 125/73 04/10/21 10:14 Pulse Ox 93 04/10/21 10:14 BMI result Body Mass Index 37.8 Const General: comfortable HENMT Other: Unremarkable Neck Neck: Yes normal visual inspection Chest Chest palpation & inspection: normal inspection of the chest Resp Other: inspiratory crackles+ Cardio Other: soft S2 Palpation: normal PMI Heart sounds: S1 normal heart sound present, no gallops, Murmur heart sound present (2/6 SHARAN aortic area) and no rubs GI Palpation (GI): Soft to palpation Back/Spine/Pelvis Other: unremarkable Skin Lesions: other Neuro General: other Extrem Other: 1-2+ edema General: Yes other Psych Mental Status: other Objective Labs and Meds Result diagrams: 04/09/21 06:05 04/10/21 06:17 Lab results: Laboratory Results - last 24 hr 04/09/21 04/09/21 04/10/21 15:57 20:16 06:17 PT 15.8 H INR 1.4 H Sodium Potassium Chloride Carbon Dioxide Anion Gap BUN Creatinine Estim Creat Clear Calc Estimated GFR POC Glucose 159 H 131 H Random Glucose Calcium B-Natriuretic Peptide 04/10/21 04/10/21 04/10/21 06:17 06:17 07:31 PT INR Sodium 139 Potassium 3.8 Chloride 98 Carbon Dioxide 32 H Anion Gap 13 BUN 24 H Creatinine 0.74 Estim Creat Clear Calc 57.3 Estimated GFR > 60 POC Glucose 108 Random Glucose 109 Calcium 9.4 B-Natriuretic Peptide 291 H 04/10/21 11:25 PT INR Sodium Potassium Chloride Carbon Dioxide Anion Gap BUN Creatinine Estim Creat Clear Calc Estimated GFR POC Glucose 105 Random Glucose Calcium B-Natriuretic Peptide Progress Note: A&P Assessment and plan (1) Acute on chronic diastolic (congestive) heart failure: Status: Acute (2) Nonrheumatic aortic valve stenosis: Status: Acute (3) Persistent atrial fibrillation: Status: Acute (4) Pulmonary hypertension: Status: Acute Plan Echocardiogram with preserved LVEF of 61%. Mean gradient across aortic valve was 28 mm Hg with a calculated valve area of 0.7 sq cm. Dimensionless index was 0.22. Stroke volume index was diminished. Overall suggestive of low gradient low-flow severe aortic stenosis. This is somewhat similar to the study from few months ago. Unremarkable troponins in this admission. Cardiac BNP 423. Discussed with patient regarding findings on the echocardiogram and treatment options including a diagnostic catheterization and workup towards TAVR. To be arranged through office. Empiric diuresis in hospital. Atrial fibrillation seems rate controlled and she is also on anticoagulation. Fall Risk Details Current Medications: Current Medications Acetaminophen (Acetaminophen 325 Mg Tablet) 650 mg PO Q6H PRN PRN Reason: mild pain Last Admin: 04/09/21 20:09 Dose: 650 mg Documented by: Amlodipine Besylate (Amlodipine Besylate 10 Mg Tablet) 10 mg PO DAILY [facility]; Protocol Last Admin: 04/10/21 08:29 Dose: 10 mg Documented by: Cyanocobalamin (Cyanocobalamin (Vitamin B-12) 1,000 Mcg Tablet) 1,000 mcg PO D AILY [facility] Last Admin: 04/10/21 08:29 Dose: 1,000 mcg Documented by: Folic Acid (Folic Acid 1 Mg Tablet) 1 mg PO DAILY [facility] Last Admin: 04/10/21 08:29 Dose: 1 mg Documented by: Furosemide (Furosemide 40 Mg/4 Ml Vial) 40 mg IVPUSH BID@0900,1800 [facility]; Protocol Last Admin: 04/10/21 08:31 Dose: 40 mg Documented by: Ceftriaxone Sodium 1 gm/ (Sodium Chloride) 50 mls @ 100 mls/hr IV Q24H [facility] Last Infusion: 04/09/21 15:21 Dose: Infused Documented by: Insulin Human Lispro (Insulin Lispro 100 Unit/Ml 3 Ml Vial) 0 unit SUBCUT QIDACHS [facility]; Protocol Last Admin: 04/10/21 11:33 Dose: Not Given Documented by: Metoprolol Tartrate (Metoprolol Tartrate 12.5 Mg Halftab) 12.5 mg PO BID [facility]; Protocol Last Admin: 04/10/21 08:28 Dose: 12.5 mg Documented by: Pharmacy Consult (Consult Rx Perform Med Rec) 1 each MISCELLANE ONCE PRN PRN Reason: Consult order Sertraline HCl (Sertraline Hcl 50 Mg Tablet) 50 mg PO DAILY [facility] Last Admin: 04/10/21 08:28 Dose: 50 mg Documented by: Sodium Chloride (0.9 % Sodium Chloride Flush 3 Ml Syringe) 3 ml IVFLUSH QSHIFT [facility] Last Admin: 04/10/21 08:31 Dose: 3 ml Documented by: Spironolactone (Spironolactone 25 Mg Tablet) 12.5 mg PO DAILY [facility]; Protocol Last Admin: 04/10/21 08:29 Dose: 12.5 mg Documented by: Trazodone HCl (Trazodone Hcl 25 Mg Halftab) 25 mg PO BEDTIME PRN PRN Reason: sleep Last Admin: 04/09/21 20:08 Dose: 25 mg Documented by: Warfarin Sodium (Warfarin Sodium 2 Mg Tablet) 2 mg PO DAILY@1800 [facility] Last Admin: 04/09/21 17:34 Dose: 2 mg Documented by: Time Spent With Patient Time: Total time spent is greater than 50% in coordination of care (as documented) at patient's floor/unit and/or counseling patient: Time with patient: less than 15 minutes Progress Note: Quality Stroke Does the patient have a stroke diagnosis?: No Procedures Date of Service Date of Service: 04/10/21
== END 2021-04-10 15:33 | disposition home health service (06) | DRG 291 ==
LOC: HO.ED 14:34 → HO.EDOVER 15:15 → HO.IMC 04-08 07:50
PROVIDERS: Physician Assistant Medical; Admitting Provider Internal Medicine; Emergency Provider Emergency Medicine; PCP Internal Medicine; Visit Provider Student in an Organized Health Care Education/Training Program
DX: I11.0 Hypertensive heart disease with heart failure (principal); I50.33 Acute on chronic diastolic (congestive) heart failure; J96.01 Acute respiratory failure with hypoxia; D61.818 Other pancytopenia; N39.0 Urinary tract infection, site not specified; I48.19 Other persistent atrial fibrillation; F39 Unspecified mood [affective] disorder; R79.1 Abnormal coagulation profile; E83.42 Hypomagnesemia; I35.0 Nonrheumatic aortic (valve) stenosis; I27.20 Pulmonary hypertension, unspecified; Z20.822 Contact with and (suspected) exposure to COVID-19; Z79.01 Long term (current) use of anticoagulants; Z79.899 Other long term (current) drug therapy
CPT/HCPCS: 36415; 70450; 71046; 71275; 80048; 80053; 81001; 81003; 82947; 83605; 83735; 83880; 84484; 85025; 85027; 85610; 87040; 87086; 87088; 87186; 87502; 87635; 93005; 93306; 93970; 94640; 94644; 96365; 96375; 97110; 97116; 97162; 99285; 99291; J0696; J1940; J3475; Q9967

== ENCOUNTER 2021-04-13 07:22 | Outpatient (REF) | payer MEDICARE, OTHER, SELFPAY ==
[2021-04-13 11:07] LABS: MANUAL DIFF FLAG NO
[2021-04-13 11:18] LABS: INTERNATIONAL NORM RATIO 1.4 (0.9-1.1); Prothrombin Time 15.5 SEC (9.9-13.0)
[2021-04-13 11:50] LABS: Alanine Aminotransferase 11 U/L (0-31); Albumin Level 3.9 g/dL (3.5-5.0); Alkaline Phosphatase 76 U/L (39-117); Anion Gap 14 (12-20); Aspartate Amino Transferase 23 U/L (5-31); Blood Urea Nitrogen 34 mg/dL (9-16); Calcium 9.6 mg/dL (8.4-10.2); Carbon Dioxide 31 mmol/L (22-29); Chloride 99 mmol/L (96-108); Estimated Glomerular Filt Rate > 60; Glucose Random 105 mg/dL (60-115); Potassium 4.4 mmol/L (3.3-5.1); Sodium 140 mmol/L (135-145); Total Protein 7.6 g/dL (6.5-8.0)
[2021-04-13 11:51] LABS: Basophils Absolute Auto 0.1 X10*3/uL (0.0-0.2); Basophils Percent Auto 1.3 % (0-2); Eosinophils Absolute Auto 0.2 X10*3/uL (0.0-0.4); Eosinophils Percent Auto 4.6 % (0-4); Hematocrit 36.3 % (37.0-47.0); Hemoglobin 11.2 g/dl (12.0-16.0); Imm Gran Abs Auto 0.02 X10*3/uL (0.00-0.03); Imm Gran Pct Auto 0.4 % (0.0-0.4); Lymphocytes Percent Auto 20.7 % (20-40); Mean Corpuscular HGB Conc 30.9 g/dl (31.0-35.0); Mean Corpuscular Hemoglobin 31.2 pg (27.0-33.0); Mean Corpuscular Volume 101.1 fL (80.0-98.0); Mean Platelet Volume 10.8 fL (9.4-12.3); Monocytes Absolute Auto 0.6 X10*3/uL (0.1-1.2); Monocytes Percent Auto 12.6 % (2-11); Neutrophils Absolute Auto 2.9 x10*3/uL (2.0-8.3); Neutrophils Percent Auto 60.4 % (45-73); Platelet Count 199 X10*3/uL (160-400); Red Blood Count 3.59 X10*6/uL (4.20-5.50); Red Cell Distribution Width 18.2 % (11.0-16.0); White Blood Count 4.8 X10*3/uL (4.8-10.8)
== END 2021-04-13 07:23 | disposition home or self-care (01) ==
LOC: HO.LHD 07:22
PROVIDERS: Internal Medicine Medical Oncology; Visit Provider Internal Medicine
DX: I48.0 Paroxysmal atrial fibrillation (principal); D64.9 Anemia, unspecified
CPT/HCPCS: 36415; 80053; 85025; 85610

== ENCOUNTER 2021-04-20 14:42 | Outpatient (REF) | payer MEDICARE, OTHER, SELFPAY ==
[2021-04-20 12:14] LABS: INTERNATIONAL NORM RATIO 1.3 (0.9-1.1); Prothrombin Time 15.4 SEC (9.9-13.0)
[2021-04-20 13:08] LABS: Appearance Urine HAZY; Color Urine YELLOW; Glucose Urine UA NEG (NEG); Leukocyte Esterase Urine NEG (NEG); Nitrite Urine NEG (NEG); PH 5.5 (5.0-8.0); Specific Gravity - Urine >= 1.030 (1.005-1.025); Urine Blood 2+ (NEG); Urine Ketones NEG (NEG); Urine Protein TRACE MG/DL (NEG-TRACE)
[2021-04-20 13:47] LABS: Bacteria Urine TRACE /LPF; Renal Epithelial Cells Urine 1+ /LPF; Squamous Epithelial Cell Urine 2+ /LPF
== END 2021-04-20 14:43 | disposition home or self-care (01) ==
LOC: HO.LHD 14:42
PROVIDERS: Visit Provider Internal Medicine
DX: I48.0 Paroxysmal atrial fibrillation (principal); N39.0 Urinary tract infection, site not specified
CPT/HCPCS: 36415; 81001; 85610

== ENCOUNTER 2021-05-04 | Outpatient (REF) | payer MEDICARE, OTHER, SELFPAY ==
[2021-05-04 12:26] LABS: INTERNATIONAL NORM RATIO 1.3 (0.9-1.1); Prothrombin Time 15.2 SEC (9.9-13.0)
== END 2021-05-04 00:01 ==
LOC: HO.LHD
PROVIDERS: Visit Provider Internal Medicine
DX: I48.0 Paroxysmal atrial fibrillation (principal)
CPT/HCPCS: 36415; 85610

== ENCOUNTER 2021-05-11 11:27 | Outpatient (REF) | payer MEDICARE, OTHER, SELFPAY ==
[2021-05-11 10:47] LABS: INTERNATIONAL NORM RATIO 1.4 (0.9-1.1); Prothrombin Time 16.2 SEC (9.9-13.0)
[2021-05-11 11:05] LABS: Appearance Urine HAZY; Color Urine YELLOW; Glucose Urine UA NEG (NEG); Leukocyte Esterase Urine NEG (NEG); Nitrite Urine POS (NEG); Specific Gravity - Urine 1.025 (1.005-1.025); Urine Blood TRACE (NEG); Urine Ketones NEG (NEG); Urine Protein NEG (NEG-TRACE)
[2021-05-11 11:14] LABS: Bacteria Urine 4+ /LPF; RBC Urine 0-2 /HPF (0); Squamous Epithelial Cell Urine 1+ /LPF; Urine Talc Crystals 1+ /LPF; WBC Urine 0-2 /HPF (0-4)
== END 2021-05-11 11:28 | disposition home or self-care (01) ==
LOC: HO.LHD 11:27
PROVIDERS: Visit Provider Internal Medicine
DX: I48.0 Paroxysmal atrial fibrillation (principal)
CPT/HCPCS: 36415; 81001; 85610

== ENCOUNTER 2021-05-18 08:45 | Outpatient (REF) | payer MEDICARE, OTHER, SELFPAY ==
[2021-05-18 13:06] LABS: INTERNATIONAL NORM RATIO 1.5 (0.9-1.1); Prothrombin Time 17.7 SEC (9.9-13.0)
== END 2021-05-18 08:46 | disposition home or self-care (01) ==
LOC: HO.LHD 08:45
PROVIDERS: Visit Provider Internal Medicine
DX: I48.0 Paroxysmal atrial fibrillation (principal)
CPT/HCPCS: 36415; 85610

== ENCOUNTER → 2021-05-19 12:51 | Outpatient (BNVA) | payer MEDICARE, OTHER, SELFPAY | PROVIDERS: PCP Internal Medicine; Referring Provider Internal Medicine; Visit Provider Internal Medicine | DX: I35.0 Nonrheumatic aortic (valve) stenosis (principal); I48.19 Other persistent atrial fibrillation; I50.32 Chronic diastolic (congestive) heart failure | CPT/HCPCS: 99212 ==

== ENCOUNTER 2021-05-25 11:59 | Outpatient (REF) | payer MEDICARE, OTHER, SELFPAY ==
[2021-05-25 10:35] LABS: INTERNATIONAL NORM RATIO 1.5 (0.9-1.1); Prothrombin Time 16.6 SEC (9.9-13.0)
[2021-05-25 10:47] LABS: Anion Gap 13 (12-20); Blood Urea Nitrogen 18 mg/dL (9-16); Calcium 9.3 mg/dL (8.4-10.2); Carbon Dioxide 27 mmol/L (22-29); Chloride 109 mmol/L (96-108); Estimated Glomerular Filt Rate > 60; Glucose Random 89 mg/dL (60-115); Sodium 145 mmol/L (135-145)
[2021-05-25 10:51] LABS: Hematocrit 34.3 % (37.0-47.0); Hemoglobin 10.6 g/dl (12.0-16.0); Mean Corpuscular HGB Conc 30.9 g/dl (31.0-35.0); Mean Corpuscular Hemoglobin 32.1 pg (27.0-33.0); Mean Corpuscular Volume 103.9 fL (80.0-98.0); Mean Platelet Volume 10.7 fL (9.4-12.3); Platelet Count 127 X10*3/uL (160-400); White Blood Count 3.2 X10*3/uL (4.8-10.8)
[2021-05-25 11:17] LABS: Appearance Urine HAZY; Color Urine YELLOW; Glucose Urine UA NEG (NEG); Leukocyte Esterase Urine NEG (NEG); Nitrite Urine POS (NEG); PH 5.5 (5.0-8.0); Specific Gravity - Urine >= 1.030 (1.005-1.025); Urine Blood 2+ (NEG); Urine Ketones NEG (NEG); Urine Protein 1+ MG/DL (NEG-TRACE)
[2021-05-25 11:34] LABS: Bacteria Urine 3+ /LPF; Squamous Epithelial Cell Urine 2+ /LPF
== END 2021-05-25 12:00 | disposition home or self-care (01) ==
LOC: HO.LHD 11:59
PROVIDERS: Absent Provider Internal Medicine; Visit Provider Internal Medicine
DX: I48.0 Paroxysmal atrial fibrillation (principal); I35.0 Nonrheumatic aortic (valve) stenosis
CPT/HCPCS: 36415; 80048; 81001; 85027; 85610

== ENCOUNTER 2021-05-27 09:24 | Outpatient (REF) | payer MEDICARE, OTHER, SELFPAY | END 2021-05-27 09:25 | disposition home or self-care (01) | LOC: HO.LAB 09:24 | PROVIDERS: PCP Internal Medicine; Visit Provider Internal Medicine | DX: Z13.89 Encounter for screening for other disorder (principal) ==

== ENCOUNTER 2021-06-01 07:07 | Outpatient (REF) | payer MEDICARE, OTHER, SELFPAY ==
[2021-06-01 11:56] LABS: INTERNATIONAL NORM RATIO 1.5 (0.9-1.1); Prothrombin Time 16.6 SEC (9.9-13.0)
[2021-06-01 12:03] LABS: Appearance Urine HAZY; Color Urine YELLOW; Glucose Urine UA NEG (NEG); Leukocyte Esterase Urine NEG (NEG); Nitrite Urine POS (NEG); Specific Gravity - Urine 1.025 (1.005-1.025); Urine Blood TRACE (NEG); Urine Ketones NEG (NEG); Urine Protein 1+ MG/DL (NEG-TRACE)
[2021-06-01 12:15] LABS: Squamous Epithelial Cell Urine 1+ /LPF
[2021-06-01 12:16] LABS: Bacteria Urine 2+ /LPF; Mucus Urine 1+ /LPF
== END 2021-06-01 07:08 | disposition home or self-care (01) ==
LOC: HO.LHD 07:07
PROVIDERS: Visit Provider Internal Medicine
DX: I48.0 Paroxysmal atrial fibrillation (principal)
CPT/HCPCS: 36415; 81001; 85610

== ENCOUNTER → 2021-06-23 14:05 | Outpatient (BNVA) | payer MEDICARE, OTHER, SELFPAY | PROVIDERS: PCP Internal Medicine; Referring Provider Internal Medicine; Visit Provider Internal Medicine | DX: I48.19 Other persistent atrial fibrillation (principal); I50.32 Chronic diastolic (congestive) heart failure; Z95.2 Presence of prosthetic heart valve | CPT/HCPCS: 93005; 99212 ==

== ENCOUNTER 2021-08-21 09:52 | Emergency (ER) | payer MEDICARE, OTHER, SELFPAY ==
--- NOTE | ~2021-08-21 | CT_ITS ---
EXAMINATION: CT HEAD WITHOUT CONTRAST CLINICAL INFORMATION: Head strike, on anticoagulants. COMPARISON: Head CT scan dated 04/06/2021. TECHNIQUE: Contiguous axial imaging was performed from the skull base to vertex without intravenous administration of contrast. Coronal and sagittal reformatted images were obtained. This CT examination was performed using dose optimization techniques as appropriate, variously including the following: *Automated exposure control *Adjustment of mA and/or kV according to patient size (this includes techniques or standardized protocols for targeted exams where dose is matched to indication/reason for exam; i.e. extremities or head) *Use of iterative reconstruction technique DLP: 639.78 mGy-cm FINDINGS: There is mild widening of the cortical sulci and associated ventriculomegaly. The lateral ventricles are symmetrical. Mild periventricular microvascular changes are seen. The third and fourth ventricles are in their normal midline position. The basilar and prepontine cisterns are unremarkable. There is no acute intra or extracerebral abnormality. There is no mass effect or midline shift. Sections through the bony calvarium are unremarkable. The orbits are intact. The paranasal sinuses are clear. The mastoid air cells are clear. Coarsely calcified subcutaneous nodules are again noted in the left posterior parietal region and right occipital region without significant change. CT/CT head/brain wo con IMPRESSION: No acute intracranial pathology.
--- NOTE | ~2021-08-21 | XR_ITS ---
EXAMINATION: XR HUMERUS, LEFT CLINICAL INFORMATION: Left pain status post fall. COMPARISON: Left humerus radiographs dated 12/29/2020. TECHNIQUE: AP and lateral views of the left humerus. FINDINGS: Moderate left glenohumeral degenerative joint changes are seen with joint space narrowing, periarticular sclerosis and marginal osteophyte formation along the inferior margin. The left humerus is intact. There is no acute fracture or dislocation. The left elbow is intact. The soft tissues are unremarkable. XR/XR humerus LT IMPRESSION: Moderate left glenohumeral degenerative joint changes appear increased in the previous study. No acute fracture.
--- NOTE | ~2021-08-21 | XR_ITS ---
EXAMINATION: CR X-RAY LEFT FEMUR, TIBIA/FIBULA, ANKLE, FOOT CLINICAL INFORMATION: Pain status post fall. COMPARISON: Pelvic radiographs dated 09/09/2019. TECHNIQUE: 2 views of the left femur, 2 views of the left tibia/fibula, 3 views of the left ankle and 3 views of the left foot were obtained. FINDINGS: There is no acute fracture or dislocation. The patient is status post left knee arthroplasty without hardware abnormality. The ankle joint and mortise are intact with mild degenerative changes. The tarsal bones are normally aligned. There is a small plantar calcaneal spur. Mild intertarsal degenerative joint changes are seen. Mild first metatarsophalangeal and interphalangeal degenerative joint changes are seen as well. Moderate soft tissue swelling surrounds the left ankle and foot. Moderate to severe atherosclerosis is noted. XR/XR tibia fibula LT 2V IMPRESSION: Mild to moderate soft tissue swelling most pronounced in the left ankle and foot with degenerative joint changes. No overt fracture or left knee hardware abnormality. Moderate to severe atherosclerosis.
--- NOTE | ~2021-08-21 | XR_ITS ---
EXAMINATION: CR X-RAY LEFT FEMUR, TIBIA/FIBULA, ANKLE, FOOT CLINICAL INFORMATION: Pain status post fall. COMPARISON: Pelvic radiographs dated 09/09/2019. TECHNIQUE: 2 views of the left femur, 2 views of the left tibia/fibula, 3 views of the left ankle and 3 views of the left foot were obtained. FINDINGS: There is no acute fracture or dislocation. The patient is status post left knee arthroplasty without hardware abnormality. The ankle joint and mortise are intact with mild degenerative changes. The tarsal bones are normally aligned. There is a small plantar calcaneal spur. Mild intertarsal degenerative joint changes are seen. Mild first metatarsophalangeal and interphalangeal degenerative joint changes are seen as well. Moderate soft tissue swelling surrounds the left ankle and foot. Moderate to severe atherosclerosis is noted. XR/XR foot LT 2V IMPRESSION: Mild to moderate soft tissue swelling most pronounced in the left ankle and foot with degenerative joint changes. No overt fracture or left knee hardware abnormality. Moderate to severe atherosclerosis.
--- NOTE | ~2021-08-21 | CT_ITS ---
EXAMINATION: CT CHEST, ABDOMEN AND PELVIS WITHOUT CONTRAST CLINICAL INFORMATION: Reason for Exam fall, head strike, anticoag use COMPARISON: CT of the chest done on 04/06/2021. CT of the abdomen and pelvis done on 01/29/2021. TECHNIQUE: Multidetector volumetric imaging was performed from the thoracic inlet through the pubic symphysis without intravenous contrast. Oral contrast: No Sagittal and coronal reformatted images were obtained on the technologist workstation. This CT examination was performed using dose optimization techniques as appropriate, variously including the following: *Automated exposure control. *Adjustment of mA and/or kV according to patient size (this includes techniques or standardized protocols for targeted exams where dose is matched to indication/reason for exam; i.e. extremities or head). *Use of iterative reconstruction technique. Total exam dose-length product 1375 mGy-cm FINDINGS: LUNG: No focal consolidation, nodules or masses. PLEURA: No pleural effusion or pneumothorax. MEDIASTINUM: The heart is moderately enlarged but stable since 04/06/2021. No pericardial effusion. No hilar or mediastinal lymphadenopathy. There is no mediastinal hematoma present. VASCULAR: Diffuse atherosclerotic disease of the aorta and is branches without aneurysm formation, unchanged. CHEST WALL/AXILLA: No axillary or internal mammary lymphadenopathy. LIVER, GALLBLADDER AND BILIARY TREE: The liver is normal in size, shape, and attenuation. No focal hepatic lesion or biliary ductal dilatation is present. Multiple calcified gallstones are present. No evidence of any gallbladder wall thickening or pericholecystic fluid. PANCREAS: Normal; no mass or surrounding fluid. SPLEEN: Normal size. No focal lesion. ADRENAL GLANDS: Normal; no mass. KIDNEYS AND URETERS: Bilateral multiple radiopaque nonobstructing sub-5 mm calculi are present. No evidence of any urinary tract obstruction. No perinephric stranding. GASTROINTESTINAL TRACT: Stomach and small bowel non-dilated. No colonic wall thickening or pericolonic inflammatory changes. Nonvisualized appendix without any inflammatory changes around the cecum. ABDOMINAL WALL: No significant hernia is appreciated. LYMPHOVASCULAR STRUCTURES: Atherosclerotic disease of the aorta and is branches without aneurysm formation. BLADDER: No focal mass or wall thickening seen. No bladder calculi. PELVIC VISCERA: There is no pelvic mass present. No evidence of any free fluid and/or free air. OSSEOUS STRUCTURES: Persistent stable severe compression fracture of mid to anterior part of L2 vertebral body, unchanged since 01/29/2021. Marked diffuse osteopenia. CT/CT abdomen pelvis wo con IMPRESSION: 1. No CT evidence of any intrathoracic or intra-abdominal/pelvic soft tissue hematoma identified. Evaluation for solid visceral injury on this nonenhanced study, as you know, is technically limited. 2. No significant interval change since most recent prior CT of the chest dated 04/06/2021. 3. The CT of the abdomen and pelvis is remarkable for presence of cholelithiasis, bilateral renal calculi and persistent stable severe compression fracture of L2 vertebral body, unchanged since 01/29/2021.
--- NOTE | ~2021-08-21 | XR_ITS ---
EXAMINATION: CR X-RAY LEFT FEMUR, TIBIA/FIBULA, ANKLE, FOOT CLINICAL INFORMATION: Pain status post fall. COMPARISON: Pelvic radiographs dated 09/09/2019. TECHNIQUE: 2 views of the left femur, 2 views of the left tibia/fibula, 3 views of the left ankle and 3 views of the left foot were obtained. FINDINGS: There is no acute fracture or dislocation. The patient is status post left knee arthroplasty without hardware abnormality. The ankle joint and mortise are intact with mild degenerative changes. The tarsal bones are normally aligned. There is a small plantar calcaneal spur. Mild intertarsal degenerative joint changes are seen. Mild first metatarsophalangeal and interphalangeal degenerative joint changes are seen as well. Moderate soft tissue swelling surrounds the left ankle and foot. Moderate to severe atherosclerosis is noted. XR/XR ankle LT 2V IMPRESSION: Mild to moderate soft tissue swelling most pronounced in the left ankle and foot with degenerative joint changes. No overt fracture or left knee hardware abnormality. Moderate to severe atherosclerosis.
--- NOTE | ~2021-08-21 | XR_ITS ---
EXAMINATION: CR X-RAY LEFT FEMUR, TIBIA/FIBULA, ANKLE, FOOT CLINICAL INFORMATION: Pain status post fall. COMPARISON: Pelvic radiographs dated 09/09/2019. TECHNIQUE: 2 views of the left femur, 2 views of the left tibia/fibula, 3 views of the left ankle and 3 views of the left foot were obtained. FINDINGS: There is no acute fracture or dislocation. The patient is status post left knee arthroplasty without hardware abnormality. The ankle joint and mortise are intact with mild degenerative changes. The tarsal bones are normally aligned. There is a small plantar calcaneal spur. Mild intertarsal degenerative joint changes are seen. Mild first metatarsophalangeal and interphalangeal degenerative joint changes are seen as well. Moderate soft tissue swelling surrounds the left ankle and foot. Moderate to severe atherosclerosis is noted. XR/XR femur LT 2V IMPRESSION: Mild to moderate soft tissue swelling most pronounced in the left ankle and foot with degenerative joint changes. No overt fracture or left knee hardware abnormality. Moderate to severe atherosclerosis.
[2021-08-21 10:01] VITALS: BP 151/84; BP 164/75; PULSE 65; PULSE 67; RESP 14; O2SAT 97; BMI 36.6
--- NOTE | 2021-08-21 10:05 | ED.GENADULT ---
HPI - General Adult General Chief complaint: Fall Stated complaint: FALL LAST NIGHT,+HS,REFUSED COLLAR Time Seen by Provider: 08/21/21 10:05 Source: patient and EMS Mode of arrival: EMS Limitations: no limitations History of Present Illness HPI narrative: Patient is a 81 year old female presenting to the emergency department today with left sided pain after a fall yesterday. Patient states that last night, she fell and hit her head and her left side and now she is having pain. Patient denies any loss of consciousness with the fall. Patient denies any dizziness, lightheadedness, abdominal pain, nausea, vomiting, fever, chills, blurry vision, double vision, loss of vision, chest pain, difficulty breathing, shortness of breath, back pain, night sweats, pain with urination, increased urinary frequency, increased urinary urgency, blood in her urine or stool, syncope or a near syncopal episode, recent trauma or falls, bowel incontinence, bladder incontinence, bowel retention, bladder retention, or any other complaints at this time. Onset (ago): day(s) (1) Severity: mild Severity scale (1-10): 1 Quality: dull Pain Consistency: constant Relieving factors: none Exacerbating factors: none Associated symptoms: denies other symptoms Treatments prior to arrival: none Related Data Home Medications Medication Instructions Recorded Confirmed folic acid 1 mg tablet 1 mg PO DAILY 05/18/20 06/23/21 aspirin 81 mg tablet,delayed 81 mg PO DAILY 06/23/21 06/23/21 release methotrexate sodium 2.5 mg tablet 25 mg PO QWEEK 06/23/21 06/23/21 Previous Rx's Medication Instructions Recorded blood sugar diagnostic #250 ea 07/29/21 blood-glucose meter (OneTouch #1 ea 07/29/21 Ultra2 Meter) polyethylene glycol 3350 17 17 g PO DAILY PRN constipation 07/29/21 gram/dose oral powder (Miralax) #119 grams sennosides 8.6 mg-docusate sodium 2 tab-cap PO DAILY PRN 07/29/21 50 mg tablet (Senna with Docusate constipation #30 tabs Sodium) warfarin 2 mg tablet 2 mg PO DAILY 90 days #90 tabs 08/04/21 cholecalciferol (vitamin D3) 50 50 mcg PO DAILY 90 days #90 caps 08/12/21 mcg (2,000 unit) capsule cyanocobalamin (vitamin B-12) 1,000 mcg PO DAILY #90 tabs 08/12/21 1,000 mcg tablet (Vitamin B-12) furosemide 40 mg tablet 40 mg PO DAILY #90 tabs 08/12/21 metoprolol tartrate 25 mg tablet 12.5 mg PO BID 90 days #90 tabs 08/12/21 potassium chloride 20 mEq 20 meq PO DAILY 90 days #90 tabs 08/12/21 tablet,extended release simvastatin 20 mg tablet 20 mg PO DAILY 90 days #90 tabs 08/12/21 spironolactone 25 mg tablet 12.5 mg PO DAILY 90 days #45 tabs 08/12/21 trazodone 50 mg tablet 25 mg PO BEDTIME PRN sleep 90 days 08/12/21 #90 tabs Allergies Allergy/AdvReac Type Severity Reaction Status Date / Time shellfish derived Allergy Unknown itchy Verified 07/29/21 15:11 procaine [From Novocain] AdvReac Unknown makes Verified 07/29/21 15:11 patient itchy,puffy Review of Systems Constitutional: Constitutional: Reports no additional constitutional complaints, Denies chills, Denies fever(s) and Denies night sweats Eyes: Eyes: Reports no additional eye complaints, Denies blurry vision, Denies change in vision, Denies diplopia, Denies eye discharge, Denies loss of vision and Denies eye pain ENT: Denies dizziness Cardiovascular: Cardiovascular: Reports no additional cardiovascular complaints, Denies chest pain, Denies lightheadedness, Denies Loss of Consciousness and Denies dyspnea Respiratory: Respiratory: Reports no additional respiratory complaints and Denies dyspnea Gastrointestinal: Gastrointestinal: Reports no additional gastrointestinal complaints, Denies abdominal pain, Denies melena, Denies hematochezia, Denies change in bowel habits and Denies change in stool character Genitourinary: Genitourinary: Denies hematuria, Denies urinary frequency, Denies dysuria, Denies urinary incontinence, Denies urinary hesitancy and Denies urinary urgency Musculoskeletal: Musculoskeletal: Reports no additional musculoskeletal complaints, Denies numbness and Denies tingling Comments: generalized pain to the left side of the body Neurologic: Denies dizziness, Denies loss of vision, Denies numbness and Denies tingling Psychiatric: Psychiatric: Reports no additional psychiatric complaints Endocrine: Endocrine: Reports no additional endocrine complaints Hematologic/Lymphatic: Hematologic/Lymphatic: Reports no additional hematologic/lymphatic complaints Allergic/Immunologic: Allergic/Immunologic: Reports no additional allergic/immunologic complaints PMFSH Past Medical History Attestation statement: The following information was validated with the patient. Source: old records reviewed Medical History (HFpEF) heart failure with preserved ejection fraction Acute pyelonephritis Anxiety and depression Atrial fibrillation CHF exacerbation Chronic anticoagulation Congestive heart failure CVA (cerebral vascular accident) Hypercholesterolemia Hypertension Lumbar vertebral fracture Nonrheumatic aortic valve stenosis Obesity (BMI 30-39.9) Pancytopenia Persistent atrial fibrillation Pneumonia Pulmonary hypertension Rheumatoid arthritis Sepsis TIA (transient ischemic attack) Type 2 diabetes mellitus with hyperglycemia Uterine cancer Surgical History History of appendectomy History of colonoscopy History of left knee replacement History of right knee joint replacement History of transcatheter aortic valve replacement (TAVR) (~06/19/21) S/P ANTONIO-BSO Family History Family History Father Diabetes CAD (coronary artery disease) Mother Diabetes Hypertension Perforated ulcer Sister Diabetes Social History Social History Household Members: Spouse Housing: House Do you presently have visiting nurse or other home services: No Alcohol intake: never Patient Tobacco Use Status: Never used Tobacco e-Cigarette/Vaping Use: Never Used Second Hand Smoke Exposure: No Advance Directives: Yes Advance Directives on File: Yes Advance Directives Date on File: 05/17/20 service: No Current occupational status: retired Cognitive needs: Yes (cane, walker) Hearing needs: No Vision needs: Yes (glasses) Physical Exam ED Vital Signs: Vital Signs - 24 hr 08/21/21 10:01 Pulse Rate 67 Respiratory Rate 14 Blood Pressure 164/75 H Pulse Oximetry 97 Oxygen Delivery Method Room Air BMI result Body Mass Index 36.6 Const General: cooperative, no acute distress, alert and awake Nutritional Appearance: well nourished Orientation/consciousness: patient oriented x3 Limitations: no limitations HENMT Head: Yes normal to inspection and Yes atraumatic Ears: hearing grossly normal bilaterally and external ears normal General nose exam: Normal external nose present, no nasal discharge noted and no epistaxis Face and sinus: Yes normal facial exam, No abrasion and No laceration Mouth: Normal oral and palatal mucosa present, no drooling and no muffled voice Eyes General: appearance normal, both eyes and all related structures Periorbital: periorbital findings normal Eyelids: Yes eyelids normal Conjunctivae: conjunctivae normal Pupils: Equal, round and reactive pupils present EOM: EOMs intact bilaterally Neck Neck: Yes normal visual inspection, Yes full ROM and Yes no lymphadenopathy Chest Chest palpation & inspection: normal inspection of the chest Resp Effort & Inspection: normal respiratory effort and able to speak in complete sentences Auscultation: clear to auscultation bilaterally Cardio Rate: regular rate Rhythm: regular rhythm GI Inspection: Yes normal to inspection Neuro General: patient oriented x3 and moves all extremities Cranial nerves: Yes Equal, round and reactive pupils present Cognition (Neuro): normal cognition Motor exam (neuro): 5/5 motor strength present throughout Sensory Exam: Normal double simultaneous stimulation for sensation Coordination: [id number] test normal Extrem General: Yes normal to inspection, Yes full ROM and Yes capillary refill normal Psych Appearance: grossly normal Mental Status: mental status grossly normal Affect: normal affect Attitude: cooperative Thought process: Normal thought process present Thought content: Normal thought content present Insight: Good insight present (Psych) Medical Decision Making [facility] Narrative Medical decision making narrative: Patient is a 81 year old female presenting to the emergency department today after a fall. Patient's physical exam was unremarkable. Patient's blood work was unremarkable. Patient's left humerus, femur, tib/fib, ankle, and foot x-rays showed no acute process. Patient's head, chest, and abdominal CTs showed no acute process. I explained my physical exam findings as well as all test results to the patient. I answered all questions asked by the patient. I stressed the importance of the patient taking her medication as prescribed. I stressed the importance of the patient following up with her primary care provider. I stressed the importance of the patient returning to the emergency department immediately if her symptoms were to worsen or if she were to develop any dizziness, shortness of breath, difficulty breathing, chest pain, blurry vision, loss of vision, nausea, vomiting, abdominal pain, fever, chills, back pain, or any other complaints. Patient verbalized agreement and understanding with this treatment plan and discharge. Differential Diagnosis Differential Diagnosis: fall, left sided pain Medical Records Medical records reviewed: Yes I reviewed the patient's medical records. Lab Data Lab results reviewed: Yes I reviewed the patient's lab results. Result diagrams: 08/21/21 10:16 08/21/21 10:16 Labs: Lab Results 08/21/21 08/21/21 08/21/21 Range/Units 10:16 10:16 10:16 WBC 4.6 L (4.8-10.8) X10*3/uL RBC 3.54 L (4.20-5.50) X10*6/uL Hgb 10.2 L (12.0-16.0) g/dl Hct 33.7 L (37.0-47.0) % MCV 95.2 (80.0-98.0) fL MCH 28.8 (27.0-33.0) pg MCHC 30.3 L (31.0-35.0) g/dl RDW 14.3 (11.0-16.0) % Plt Count 142 L (160-400) X10*3/uL MPV 9.5 (9.4-12.3) fL Immature Gran % (Auto) 0.4 (0.0-0.4) % Neut % (Auto) 62.6 (45-73) % Lymph % (Auto) 21.9 (20-40) % [place] % (Auto) 10.8 (2-11) % Eos % (Auto) 3.9 (0-4) % Baso % (Auto) 0.4 (0-2) % Lymph # (Auto) 1.0 L (1.2-4.9) X10*3/uL [place] # (Auto) 0.5 (0.1-1.2) X10*3/uL Eos # (Auto) 0.2 (0.0-0.4) X10*3/uL Baso # (Auto) 0.0 (0.0-0.2) X10*3/uL Abs Immat Gran (auto) 0.02 (0.00-0.03) X10*3/uL Absolute Neuts (auto) 2.9 (2.0-8.3) x10*3/uL Absolute Nucleated RBC 0.000 (0.0-0.012) X10*3/uL Nucleated RBC % (auto) 0.0 (0.0-0.2) /100WBC PT 15.3 H (10.0-13.1) SEC INR 1.3 H (0.9-1.1) APTT 37.6 (24.1-38.0) SEC Sodium 141 (135-145) mmol/L Potassium 4.7 (3.3-5.1) mmol/L Chloride 104 (96-108) mmol/L Carbon Dioxide 31 H (22-29) mmol/L Anion Gap 11 L (12-20) BUN 24 H (9-16) mg/dL Creatinine 0.80 (0.5-1.4) mg/dL Estim Creat Clear Calc 53.4 Estimated GFR > 60 Random Glucose 109 (60-115) mg/dL Calcium 9.1 (8.4-10.2) mg/dL Magnesium 1.9 (1.6-2.6) mg/dL Total Bilirubin 0.3 (0.0-1.0) mg/dL AST 20 (5-31) U/L ALT 8 (0-31) U/L Alkaline Phosphatase 93 D (39-117) U/L Total Protein 7.6 (6.5-8.0) g/dL Albumin 3.4 L (3.5-5.0) g/dL Imaging Data Left femur, tib/fib, ankle, foot x-rays: Attestation: I personally reviewed and interpreted this imaging study as follows: My impression: No acute fracture. Radiologist's impression: EXAMINATION: CR X-RAY LEFT FEMUR, TIBIA/FIBULA, ANKLE, FOOT CLINICAL INFORMATION: Pain status post fall. COMPARISON: Pelvic radiographs dated 09/09/2019.? TECHNIQUE: 2 views of the left femur, 2 views of the left tibia/fibula, 3 views of the left ankle and 3 views of the left foot were obtained.? FINDINGS: There is no acute fracture or dislocation. The patient is status post left knee arthroplasty without hardware abnormality. The ankle joint and mortise are intact with mild degenerative changes. The tarsal bones are normally aligned. There is a small plantar calcaneal spur. Mild intertarsal degenerative joint changes are seen. Mild first metatarsophalangeal and interphalangeal degenerative joint changes are seen as well. Moderate soft tissue swelling surrounds the left ankle and foot. Moderate to severe atherosclerosis is noted.? XR/XR tibia fibula LT 2V IMPRESSION: Mild to moderate soft tissue swelling most pronounced in the left ankle and foot with degenerative joint changes. No overt fracture or left knee hardware abnormality. Moderate to severe atherosclerosis. Dictated By: Joshua Goldberg MD Signed By: Electronically signed by Joshua Goldberg MD 08/21/21 1234 Left humerus x-ray: Attestation: I personally reviewed and interpreted this imaging study as follows: My impression: No acute process. Radiologist's impression: EXAMINATION: XR HUMERUS, LEFT CLINICAL INFORMATION: Left pain status post fall.? COMPARISON: Left humerus radiographs dated 12/29/2020.? TECHNIQUE: AP and lateral views of the left humerus. FINDINGS: Moderate left glenohumeral degenerative joint changes are seen with joint space narrowing, periarticular sclerosis and marginal osteophyte formation along the inferior margin. The left humerus is intact. There is no acute fracture or dislocation. The left elbow is intact. The soft tissues are unremarkable.? XR/XR humerus LT IMPRESSION: Moderate left glenohumeral degenerative joint changes appear increased in the previous study. No acute fracture. Dictated By: Joshua Goldberg MD Signed By: Electronically signed by Joshua Goldberg MD 08/21/[address] scan - head: Attestation: I personally reviewed and interpreted this imaging study as follows: My impression: No acute process. Radiologist's impression: EXAMINATION: CT HEAD WITHOUT CONTRAST CLINICAL INFORMATION: Head strike, on anticoagulants.? COMPARISON: Head CT scan dated 04/06/2021. TECHNIQUE: Contiguous axial imaging was performed from the skull base to vertex without intravenous administration of contrast. Coronal and sagittal reformatted images were obtained. This CT examination was performed using dose optimization techniques as appropriate, variously including the following: *Automated exposure control *Adjustment of mA and/or kV according to patient size (this includes techniques or standardized protocols for targeted exams where dose is matched to indication/reason for exam; i.e. extremities or head) *Use of iterative reconstruction technique DLP: 639.78 mGy-cm FINDINGS: There is mild widening of the cortical sulci and associated ventriculomegaly. The lateral ventricles are symmetrical. Mild periventricular microvascular changes are seen. The third and fourth ventricles are in their normal midline position. The basilar and prepontine cisterns are unremarkable. There is no acute intra or extracerebral abnormality. There is no mass effect or midline shift. Sections through the bony calvarium are unremarkable. The orbits are intact. The paranasal sinuses are clear. The mastoid air cells are clear. Coarsely calcified subcutaneous nodules are again noted in the left posterior parietal region and right occipital region without significant change. CT/CT head/brain wo con IMPRESSION: No acute intracranial pathology. Dictated By: Joshua Goldberg MD Signed By: Electronically signed by Joshua Goldberg MD 08/21/[address] chest, abdomen, and pelvis: Attestation: I personally reviewed and interpreted this imaging study as follows: My impression: No acute fractures. Radiologist's impression: EXAMINATION: CT CHEST, ABDOMEN AND PELVIS WITHOUT CONTRAST CLINICAL INFORMATION: Reason for Exam fall, head strike, anticoag use COMPARISON: CT of the chest done on 04/06/2021. CT of the abdomen and pelvis done on 01/29/2021. TECHNIQUE: Multidetector volumetric imaging was performed from the thoracic inlet through the pubic symphysis without intravenous contrast. Oral contrast: No Sagittal and coronal reformatted images were obtained on the technologist workstation. This CT examination was performed using dose optimization techniques as appropriate, variously including the following: *Automated exposure control. *Adjustment of mA and/or kV according to patient size (this includes techniques or standardized protocols for targeted exams where dose is matched to indication/reason for exam; i.e. extremities or head). *Use of iterative reconstruction technique. Total exam dose-length product 1375 mGy-cm FINDINGS: LUNG: No focal consolidation, nodules or masses. PLEURA: No pleural effusion or pneumothorax. MEDIASTINUM: The heart is moderately enlarged but stable since 04/06/2021. No pericardial effusion.? No hilar or mediastinal lymphadenopathy. There is no mediastinal hematoma present. VASCULAR: Diffuse atherosclerotic disease of the aorta and is branches without aneurysm formation, unchanged. CHEST WALL/AXILLA: No axillary or internal mammary lymphadenopathy. LIVER, GALLBLADDER AND BILIARY TREE: The liver is normal in size, shape, and attenuation. No focal hepatic lesion or biliary ductal dilatation is present. Multiple calcified gallstones are present. No evidence of any gallbladder wall thickening or pericholecystic fluid.? PANCREAS: Normal; no mass or surrounding fluid.? SPLEEN: Normal size.? No focal lesion.? ADRENAL GLANDS: Normal; no mass.? KIDNEYS AND URETERS: Bilateral multiple radiopaque nonobstructing sub-5 mm calculi are present. No evidence of any urinary tract obstruction. No perinephric stranding. GASTROINTESTINAL TRACT: Stomach and small bowel non-dilated.? No colonic wall thickening or pericolonic inflammatory changes. Nonvisualized appendix without any inflammatory changes around the cecum. ABDOMINAL WALL: No significant hernia is appreciated.? LYMPHOVASCULAR STRUCTURES: Atherosclerotic disease of the aorta and is branches without aneurysm formation.? BLADDER: No focal mass or wall thickening seen.? No bladder calculi.? PELVIC VISCERA: There is no pelvic mass present. No evidence of any free fluid and/or free air. OSSEOUS STRUCTURES: Persistent stable severe compression fracture of mid to anterior part of L2 vertebral body, unchanged since 01/29/2021. Marked diffuse osteopenia.? CT/CT chest wo con IMPRESSION: ? 1. No CT evidence of any intrathoracic or intra-abdominal/pelvic soft tissue hematoma identified. Evaluation for solid visceral injury on this nonenhanced study, as you know, is technically limited. 2. No significant interval change since most recent prior CT of the chest dated 04/06/2021. 3. The CT of the abdomen and pelvis is remarkable for presence of cholelithiasis, bilateral renal calculi and persistent stable severe compression fracture of L2 vertebral body, unchanged since 01/29/2021. Dictated By: Liliana Dawson MD Signed By: Electronically signed by Liliana Dawson MD 08/21/21 2920 Discharge Plan Discharge Clinical Impression: Fall Patient Disposition: Home, Self-Care Instructions: Fall Prevention for Older Adults (ED) Additional Instructions: Follow up with your primary care provider. Return to the emergency department immediately if your symptoms worsen or if you develop any dizziness, shortness of breath, difficulty breathing, chest pain, blurry vision, loss of vision, nausea, vomiting, abdominal pain, fever, chills, back pain, or any other complaints. Prescriptions: No Action warfarin 2 mg tablet 2 mg PO DAILY 90 Days Qty: 90 0RF Rx Instructions: or as directed cholecalciferol (vitamin D3) 50 mcg (2,000 unit) capsule 50 mcg PO DAILY 90 Days Qty: 90 3RF cyanocobalamin (vitamin B-12) [Vitamin B-12] 1,000 mcg tablet 1,000 mcg PO DAILY Qty: 90 3RF furosemide 40 mg tablet 40 mg PO DAILY Qty: 90 3RF metoprolol tartrate 25 mg tablet 12.5 mg PO BID 90 Days Qty: 90 2RF simvastatin 20 mg tablet 20 mg PO DAILY 90 Days Qty: 90 2RF spironolactone 25 mg tablet 12.5 mg PO DAILY 90 Days Qty: 45 3RF Protocol: Hold for SBP< HOLD for SBP < : 90 trazodone 50 mg tablet 25 mg PO BEDTIME PRN (Reason: sleep) 90 Days Qty: 90 1RF potassium chloride 20 mEq tablet extended release 20 meq PO DAILY 90 Days Qty: 90 0RF folic acid 1 mg Tablet 1 mg PO DAILY sennosides-docusate sodium [Senna with Docusate Sodium] 8.6-50 mg tablet 2 tab-cap PO DAILY PRN (Reason: constipation) Qty: 30 0RF polyethylene glycol 3350 [Miralax] 17 gram/dose powder 17 g PO DAILY PRN (Reason: constipation) Qty: 119 0RF (DME) blood-glucose meter [OneTouch Ultra2 Meter] Kit See Rx Instructions .ROUTE .MEDSUPPLY Qty: 1 0RF Rx Instructions: As directed check the blood sugar once a day (DME) OneTouch Ultra Blue Test Strip Strip See Rx Instructions .ROUTE .MEDSUPPLY Qty: 250 3RF Rx Instructions: Twice a day aspirin 81 mg tablet,delayed release (DR/EC) 81 mg PO DAILY methotrexate sodium 2.5 mg tablet 25 mg PO QWEEK Referrals: Camilo,Riccardo Oropeza MD [Primary Care Provider] - (Follow up with your primary care provider. ) Interventions: ED Discharge Assessment Last Done: 08/21/21 13:58 Discharge Date/Time: 08/21/21 13:59 Print Language: Bruneian
[2021-08-21 10:21] LABS: MANUAL DIFF FLAG NO
[2021-08-21 10:24] LABS: Basophils Percent Auto 0.4 % (0-2); Eosinophils Absolute Auto 0.2 X10*3/uL (0.0-0.4); Eosinophils Percent Auto 3.9 % (0-4); Hematocrit 33.7 % (37.0-47.0); Hemoglobin 10.2 g/dl (12.0-16.0); Imm Gran Abs Auto 0.02 X10*3/uL (0.00-0.03); Imm Gran Pct Auto 0.4 % (0.0-0.4); Lymphocytes Percent Auto 21.9 % (20-40); Mean Corpuscular HGB Conc 30.3 g/dl (31.0-35.0); Mean Corpuscular Hemoglobin 28.8 pg (27.0-33.0); Mean Corpuscular Volume 95.2 fL (80.0-98.0); Mean Platelet Volume 9.5 fL (9.4-12.3); Monocytes Absolute Auto 0.5 X10*3/uL (0.1-1.2); Monocytes Percent Auto 10.8 % (2-11); Neutrophils Absolute Auto 2.9 x10*3/uL (2.0-8.3); Neutrophils Percent Auto 62.6 % (45-73); Platelet Count 142 X10*3/uL (160-400); Red Blood Count 3.54 X10*6/uL (4.20-5.50); Red Cell Distribution Width 14.3 % (11.0-16.0); White Blood Count 4.6 X10*3/uL (4.8-10.8)
[2021-08-21 10:34] LABS: INTERNATIONAL NORM RATIO 1.3 (0.9-1.1); Prothrombin Time 15.3 SEC (10.0-13.1)
[2021-08-21 10:37] LABS: Partial Thromboplastin Time 37.6 SEC (24.1-38.0)
[2021-08-21 10:45] LABS: Alanine Aminotransferase 8 U/L (0-31); Albumin Level 3.4 g/dL (3.5-5.0); Alkaline Phosphatase 93 U/L (39-117); Anion Gap 11 (12-20); Aspartate Amino Transferase 20 U/L (5-31); Bilirubin Total 0.3 mg/dL (0.0-1.0); Blood Urea Nitrogen 24 mg/dL (9-16); Calcium 9.1 mg/dL (8.4-10.2); Carbon Dioxide 31 mmol/L (22-29); Chloride 104 mmol/L (96-108); Creatinine Clr Calc Pharmacy 53.4; Estimated Glomerular Filt Rate > 60; Glucose Random 109 mg/dL (60-115); Magnesium 1.9 mg/dL (1.6-2.6); Potassium 4.7 mmol/L (3.3-5.1); Sodium 141 mmol/L (135-145); Total Protein 7.6 g/dL (6.5-8.0)
== END 2021-08-21 13:59 | disposition home or self-care (01) ==
PROVIDERS: Physician Assistant Medical; Emergency Provider Emergency Medicine; PCP Internal Medicine
DX: Z04.89 Encounter for examination and observation for other specified reasons (principal); Z91.81 History of falling; E11.9 Type 2 diabetes mellitus without complications; I11.0 Hypertensive heart disease with heart failure; I50.9 Heart failure, unspecified; I48.19 Other persistent atrial fibrillation; Z79.01 Long term (current) use of anticoagulants
CPT/HCPCS: 36415; 70450; 71250; 73060; 73552; 73590; 73600; 73620; 74176; 80053; 83735; 85025; 85610; 85730; 99282; 99284

== ENCOUNTER 2021-09-02 02:52 | Observation (INO) | payer MEDICARE, OTHER, SELFPAY ==
[2021-09-02 03:19] VITALS: BP 165/82; PULSE 89; RESP 16; TEMP 36.7; O2SAT 97
[2021-09-02 03:37] VITALS: BP 165/82; BP 170/90; PULSE 87; PULSE 89; RESP 15; TEMP 36.6; O2SAT 97; O2SAT 99; BMI 35.3
--- NOTE | 2021-09-02 04:29 | ED.GENADULT ---
HPI - General Adult General Chief complaint: Extremity Problem Stated complaint: leg pain Time Seen by Provider: 09/02/21 04:03 Source: patient and EMS Mode of arrival: EMS Limitations: no limitations History of Present Illness HPI narrative: Patient comes to the emergency room complaining of sudden onset of lower extremities painful rash patient states that she did not have any trauma. Patient developed a rash that started 2 days ago. Patient states that now she has the same rash in her upper extremities. Patient denies any medications. However, just before the rash started, patient changed pharmacy. Patient states that she used to take medications from [facility], never had any issues. Does not have any new medications, but they are packed by any pharmacy. Patient denies fever chills, no itching, no chest pain or shortness of breath. Patient states she is compliant with her medication. Related Data Home Medications Medication Instructions Recorded Confirmed methotrexate sodium 2.5 mg tablet 25 mg PO QWEEK 06/23/21 06/23/21 Previous Rx's Medication Instructions Recorded blood sugar diagnostic #250 ea 07/29/21 blood-glucose meter (OneTouch #1 ea 07/29/21 Ultra2 Meter kit) warfarin 2 mg tablet 2 mg PO DAILY 90 days #90 tabs 08/04/21 cholecalciferol (vitamin D3) 50 50 mcg PO DAILY 90 days #90 caps 08/12/21 mcg (2,000 unit) capsule cyanocobalamin (vitamin B-12) 1,000 mcg PO DAILY #90 tabs 08/12/21 1,000 mcg tablet (Vitamin B-12) furosemide 40 mg tablet 40 mg PO DAILY #90 tabs 08/12/21 metoprolol tartrate 25 mg tablet 12.5 mg PO BID 90 days #90 tabs 08/12/21 potassium chloride 20 mEq 20 meq PO DAILY 90 days #90 tabs 08/12/21 tablet,extended release simvastatin 20 mg tablet 20 mg PO DAILY 90 days #90 tabs 08/12/21 spironolactone 25 mg tablet 12.5 mg PO DAILY 90 days #45 tabs 08/12/21 trazodone 50 mg tablet 25 mg PO BEDTIME PRN sleep 90 days 08/12/21 #90 tabs aspirin 81 mg tablet,delayed 81 mg PO DAILY #90 tabs 08/21/21 release folic acid 1 mg tablet 1 mg PO DAILY 90 days #90 tabs 08/21/21 polyethylene glycol 3350 17 17 g PO DAILY PRN constipation 08/21/21 gram/dose oral powder (Miralax) #119 grams sennosides 8.6 mg-docusate sodium 2 tab-cap PO DAILY PRN 08/21/21 50 mg tablet (Senna with Docusate constipation 90 days #180 tabs Sodium) Allergies Allergy/AdvReac Type Severity Reaction Status Date / Time shellfish derived Allergy Unknown itchy Verified 07/29/21 15:11 procaine [From Novocain] AdvReac Unknown makes Verified 07/29/21 15:11 patient itchy,puffy Review of Systems Review of Systems: Constitutional : No Weight loss, No Fever, No Chills, No Night Sweats, No Fatigue, No Malaise ENT/Mouth : No Hearing loss, No Ear Pain, No Nasal Congestion, No Sinus Pain, No Hoarseness, No sore throat, No Rhinorrhea, No Swallowing Difficulty Eyes: No Eye Pain, No Swelling, No Redness, No Foreign Body, No Discharge, No Vision Changes Cardiovascular : No Chest Pain, No SOB, No Dyspnea on Exertion, No Orthopnea, No Edema, No Palpitations Respiratory : No Cough, No Sputum, No Wheezing, No Smoke Exposure, No Dyspnea Gastrointestinal : No Nausea, No Vomiting, No Diarrhea, No Constipation, No abdominal Pain, No Hematochezia, No Melena Genitourinary : no irregular bleeding, No Dysuria, No Urinary Frequency, No Hematuria, No Urinary Incontinence, No Urgency, No Flank Pain, No Urinary Flow Changes, No Hesitancy Musculoskeletal : Complaining of lower extremity pain and rash that is painful, not itchy Skin : See musculoskeletal above Neuro : No Weakness, No Numbness, No Paresthesias, No Loss of Consciousness, No Dizziness, No Headache Psych : No Anxiety/Panic, No Depression, No SI/HI/AH/VH, No Social Issues, Heme/Lymph: No Bruising, No Bleeding,No Lymphadenopathy Endocrine : No Polyuria, No Polydipsia, No Temperature Intolerance PMFSH Past Medical History Medical History (HFpEF) heart failure with preserved ejection fraction Acute pyelonephritis Anxiety and depression Atrial fibrillation CHF exacerbation Chronic anticoagulation Congestive heart failure CVA (cerebral vascular accident) Hypercholesterolemia Hypertension Lumbar vertebral fracture Nonrheumatic aortic valve stenosis Obesity (BMI 30-39.9) Pancytopenia Persistent atrial fibrillation Pneumonia Pulmonary hypertension Rheumatoid arthritis Sepsis TIA (transient ischemic attack) Type 2 diabetes mellitus with hyperglycemia Uterine cancer Surgical History History of appendectomy History of colonoscopy History of left knee replacement History of right knee joint replacement History of transcatheter aortic valve replacement (TAVR) (~06/19/21) S/P ANTONIO-BSO Family History Family History Father Diabetes CAD (coronary artery disease) Mother Diabetes Hypertension Perforated ulcer Sister Diabetes Social History Social History Household Members: Spouse Housing: House Do you presently have visiting nurse or other home services: No Alcohol intake: never Patient Tobacco Use Status: Never used Tobacco e-Cigarette/Vaping Use: Never Used Second Hand Smoke Exposure: No Use of substances other than those prescribed or required for medical reasons: No Advance Directives: Yes Advance Directives on File: Yes Advance Directives Date on File: 08/31/21 service: No Current occupational status: retired Cognitive needs: Yes (cane, walker) Hearing needs: No Vision needs: Yes (glasses) Physical Exam ED Vital Signs: Vital Signs - 24 hr 09/02/21 03:19 09/02/21 03:37 Temperature 98.0 F 98 F Pulse Rate 89 89 Respiratory Rate 16 15 Blood Pressure 165/82 H 165/82 H Pulse Oximetry 97 97 Oxygen Delivery Method Room Air Room Air BMI result Body Mass Index 35.3 Const Other: Appearance: Alert. Oriented X3. No acute distress. Eyes: Pupils equal, round and reactive to light. ENT: Pharynx normal. Neck: Normal inspection. Neck supple. No lymph nodes noted. No crepitus CVS: Normal heart rate and rhythm. Pulses normal. Normal S1 and S2 Respiratory: No respiratory distress. Breath sounds normal. No Wheezing. No rales Abdomen: Soft and nontender. No rigidity. No distention. Skin: Skin warm and dry. Patient has a vasculitis like rash, see pictures below Extremities: No lower extremity edema. Neuro: Oriented X 3. No motor deficit. No sensory deficit. Moving all extremities. No slurred speech. CN 2 through 12 grossly intact Psych: calm, cooperative, normal affect Course Course Course Narrative: All Of patient's labs are pending. Patient seems to have vasculitis. Etiology unclear at this time. Patient does have history of autoimmune disease such as rheumatoid arthritis. Patient was given 125 mg of Solu-Medrol and p.o. oxycodone for pain. Patient's platelets are slightly decreased, 155. Patient has chronic anemia, hemoglobin 9.8. I discussed the patient with Dr. Martin, patient being admitted Medical Decision Making Lab Data Result diagrams: 09/02/21 04:31 09/02/21 04:31 Labs: Lab Results 09/02/21 09/02/21 09/02/21 Range/Units 04:31 04:31 04:31 WBC 6.3 (4.8-10.8) X10*3/uL RBC 3.43 L (4.20-5.50) X10*6/uL Hgb 9.8 L (12.0-16.0) g/dl Hct 31.1 L (37.0-47.0) % MCV 90.7 (80.0-98.0) fL MCH 28.6 (27.0-33.0) pg MCHC 31.5 (31.0-35.0) g/dl RDW 14.5 (11.0-16.0) % Plt Count 155 L (160-400) X10*3/uL MPV 10.3 (9.4-12.3) fL Immature Gran % (Auto) 0.5 H (0.0-0.4) % Neut % (Auto) 72.4 (45-73) % Lymph % (Auto) 17.1 L (20-40) % Warrick % (Auto) 7.0 (2-11) % Eos % (Auto) 2.7 (0-4) % Baso % (Auto) 0.3 (0-2) % Lymph # (Auto) 1.1 L (1.2-4.9) X10*3/uL Warrick # (Auto) 0.4 (0.1-1.2) X10*3/uL Eos # (Auto) 0.2 (0.0-0.4) X10*3/uL Baso # (Auto) 0.0 (0.0-0.2) X10*3/uL Abs Immat Gran (auto) 0.03 (0.00-0.03) X10*3/uL Absolute Neuts (auto) 4.6 (2.0-8.3) x10*3/uL Absolute Nucleated RBC 0.000 (0.0-0.012) X10*3/uL Nucleated RBC % (auto) 0.0 (0.0-0.2) /100WBC PT 30.7 H (10.0-13.1) SEC INR 2.6 H (0.9-1.1) APTT 44.4 H (24.1-38.0) SEC Sodium 140 (135-145) mmol/L Potassium 3.5 D (3.3-5.1) mmol/L Chloride 104 (96-108) mmol/L Carbon Dioxide 27 (22-29) mmol/L Anion Gap 13 (12-20) BUN 31 H (9-16) mg/dL Creatinine 0.82 (0.5-1.4) mg/dL Estim Creat Clear Calc 51.0 Estimated GFR > 60 Random Glucose 117 H (60-115) mg/dL Calcium 8.6 (8.4-10.2) mg/dL Magnesium 1.6 (1.6-2.6) mg/dL Total Bilirubin 1.2 H (0.0-1.0) mg/dL Direct Bilirubin 0.5 (0.0-0.5) mg/dL AST 19 (5-31) U/L ALT 7 (0-31) U/L Alkaline Phosphatase 73 D (39-117) U/L Troponin I High Sens (<3.5-17.0) ng/L C-Reactive Protein 6.17 H (< or = 0.50) mg/dL Total Protein 7.4 (6.5-8.0) g/dL Albumin 3.2 L (3.5-5.0) g/dL COVID-19 ([facility]) (Negative) COVID-19 Clin Com 09/02/21 09/02/21 Range/Units 04:31 04:31 WBC (4.8-10.8) X10*3/uL RBC (4.20-5.50) X10*6/uL Hgb (12.0-16.0) g/dl Hct (37.0-47.0) % MCV (80.0-98.0) fL MCH (27.0-33.0) pg MCHC (31.0-35.0) g/dl RDW (11.0-16.0) % Plt Count (160-400) X10*3/uL MPV (9.4-12.3) fL Immature Gran % (Auto) (0.0-0.4) % Neut % (Auto) (45-73) % Lymph % (Auto) (20-40) % Warrick % (Auto) (2-11) % Eos % (Auto) (0-4) % Baso % (Auto) (0-2) % Lymph # (Auto) (1.2-4.9) X10*3/uL Warrick # (Auto) (0.1-1.2) X10*3/uL Eos # (Auto) (0.0-0.4) X10*3/uL Baso # (Auto) (0.0-0.2) X10*3/uL Abs Immat Gran (auto) (0.00-0.03) X10*3/uL Absolute Neuts (auto) (2.0-8.3) x10*3/uL Absolute Nucleated RBC (0.0-0.012) X10*3/uL Nucleated RBC % (auto) (0.0-0.2) /100WBC PT (10.0-13.1) SEC INR (0.9-1.1) APTT (24.1-38.0) SEC Sodium (135-145) mmol/L Potassium (3.3-5.1) mmol/L Chloride (96-108) mmol/L Carbon Dioxide (22-29) mmol/L Anion Gap (12-20) BUN (9-16) mg/dL Creatinine (0.5-1.4) mg/dL Estim Creat Clear Calc Estimated GFR Random Glucose (60-115) mg/dL Calcium (8.4-10.2) mg/dL Magnesium (1.6-2.6) mg/dL Total Bilirubin (0.0-1.0) mg/dL Direct Bilirubin (0.0-0.5) mg/dL AST (5-31) U/L ALT (0-31) U/L Alkaline Phosphatase (39-117) U/L Troponin I High Sens 17.4 H D (<3.5-17.0) ng/L C-Reactive Protein (< or = 0.50) mg/dL Total Protein (6.5-8.0) g/dL Albumin (3.5-5.0) g/dL COVID-19 ([facility]) Negative (Negative) COVID-19 Clin Com See Note Discharge Plan Discharge Clinical Impression: Vasculitis Patient Disposition: Admitted As Inpatient Prescriptions: No Action warfarin 2 mg tablet 2 mg PO DAILY 90 Days Qty: 90 0RF Rx Instructions: or as directed cholecalciferol (vitamin D3) 50 mcg (2,000 unit) capsule 50 mcg PO DAILY 90 Days Qty: 90 3RF cyanocobalamin (vitamin B-12) [Vitamin B-12] 1,000 mcg tablet 1,000 mcg PO DAILY Qty: 90 3RF furosemide 40 mg tablet 40 mg PO DAILY Qty: 90 3RF metoprolol tartrate 25 mg tablet 12.5 mg PO BID 90 Days Qty: 90 2RF simvastatin 20 mg tablet 20 mg PO DAILY 90 Days Qty: 90 2RF spironolactone 25 mg tablet 12.5 mg PO DAILY 90 Days Qty: 45 3RF Protocol: Hold for SBP< HOLD for SBP < : 90 trazodone 50 mg tablet 25 mg PO BEDTIME PRN (Reason: sleep) 90 Days Qty: 90 1RF potassium chloride 20 mEq tablet extended release 20 meq PO DAILY 90 Days Qty: 90 0RF aspirin 81 mg tablet,delayed release (DR/EC) 81 mg PO DAILY Qty: 90 3RF folic acid 1 mg tablet 1 mg PO DAILY 90 Days Qty: 90 3RF polyethylene glycol 3350 [Miralax] 17 gram/dose powder 17 g PO DAILY PRN (Reason: constipation) Qty: 119 0RF sennosides-docusate sodium [Senna with Docusate Sodium] 8.6-50 mg tablet 2 tab-cap PO DAILY PRN (Reason: constipation) 90 Days Qty: 180 0RF (DME) blood-glucose meter [[employer] Ultra2 Meter] Kit See Rx Instructions .ROUTE .MEDSUPPLY Qty: 1 0RF Rx Instructions: As directed check the blood sugar once a day (DME) OneTouch Ultra Blue Test Strip Strip See Rx Instructions .ROUTE .MEDSUPPLY Qty: 250 3RF Rx Instructions: Twice a day methotrexate sodium 2.5 mg tablet 25 mg PO QWEEK
[2021-09-02 04:42] LABS: MANUAL DIFF FLAG NO
[2021-09-02 04:43] LABS: Basophils Percent Auto 0.3 % (0-2); Eosinophils Absolute Auto 0.2 X10*3/uL (0.0-0.4); Eosinophils Percent Auto 2.7 % (0-4); Hematocrit 31.1 % (37.0-47.0); Hemoglobin 9.8 g/dl (12.0-16.0); Imm Gran Abs Auto 0.03 X10*3/uL (0.00-0.03); Imm Gran Pct Auto 0.5 % (0.0-0.4); Lymphocytes Absolute Auto 1.1 X10*3/uL (1.2-4.9); Lymphocytes Percent Auto 17.1 % (20-40); Mean Corpuscular HGB Conc 31.5 g/dl (31.0-35.0); Mean Corpuscular Hemoglobin 28.6 pg (27.0-33.0); Mean Corpuscular Volume 90.7 fL (80.0-98.0); Mean Platelet Volume 10.3 fL (9.4-12.3); Monocytes Absolute Auto 0.4 X10*3/uL (0.1-1.2); Neutrophils Absolute Auto 4.6 x10*3/uL (2.0-8.3); Neutrophils Percent Auto 72.4 % (45-73); Platelet Count 155 X10*3/uL (160-400); Red Blood Count 3.43 X10*6/uL (4.20-5.50); Red Cell Distribution Width 14.5 % (11.0-16.0); White Blood Count 6.3 X10*3/uL (4.8-10.8)
[2021-09-02] MEDS: methylPREDNISolone Sod Succ 125 MG/2 ML VIAL IVPUSH (04:47)
[2021-09-02] MEDS: oxyCODONE HCl Immed Release 5 MG TABLET PO (04:47)
[2021-09-02 04:52] LABS: INTERNATIONAL NORM RATIO 2.6 (0.9-1.1); Prothrombin Time 30.7 SEC (10.0-13.1)
[2021-09-02 04:55] LABS: Partial Thromboplastin Time 44.4 SEC (24.1-38.0)
[2021-09-02 04:57] LABS: COVID-19 Test Negative (Negative)
[2021-09-02 05:02] LABS: Troponin-I High Sensitivity 17.4 ng/L (<3.5-17.0)
--- NOTE | 2021-09-02 05:11 | ECG_ITS ---
Test Reason : weakness Blood Pressure : / mmHG Vent. Rate : 071 BPM Atrial Rate : 000 BPM P-R Int : 000 ms QRS Dur : 144 ms QT Int : 460 ms P-R-T Axes : 000 086 -47 degrees QTc Int : 499 ms Atrial fibrillation Right bundle branch block T wave abnormality, consider inferolateral ischemia Abnormal ECG When compared with ECG of 06-APR-2021 10:43, T wave inversion now evident in Lateral leads Referred By: oLr Rodas Electronically Signed By:Carmelo Andrews
[2021-09-02 05:15] LABS: Alanine Aminotransferase 7 U/L (0-31); Albumin Level 3.2 g/dL (3.5-5.0); Alkaline Phosphatase 73 U/L (39-117); Anion Gap 13 (12-20); Aspartate Amino Transferase 19 U/L (5-31); Bilirubin Direct 0.5 mg/dL (0.0-0.5); Bilirubin Total 1.2 mg/dL (0.0-1.0); Blood Urea Nitrogen 31 mg/dL (9-16); C Reactive Protein 6.17 mg/dL (< or = 0.50); Calcium 8.6 mg/dL (8.4-10.2); Carbon Dioxide 27 mmol/L (22-29); Chloride 104 mmol/L (96-108); Estimated Glomerular Filt Rate > 60; Glucose Random 117 mg/dL (60-115); Magnesium 1.6 mg/dL (1.6-2.6); Potassium 3.5 mmol/L (3.3-5.1); Sodium 140 mmol/L (135-145); Total Protein 7.4 g/dL (6.5-8.0)
[2021-09-02 05:38] LABS: Erythrocyte Sedimentation Rate 97 MM/HR (0-20)
--- NOTE | 2021-09-02 08:52 | PHA.MEDREC ---
Pharmacy Consult ? Medication Reconciliation Pharmacy has completed the medication reconciliation. [facility]s [facility] Per patient, she has a visiting nurse who takes INR every other day. The most current dose is 2mg. Patient fluctuates between 1 and 2 tablets (2 and 4 mg). Thanks Henrique
[2021-09-02 09:07] VITALS: BP 138/74; PULSE 87; RESP 20; TEMP 36.5; O2SAT 96
--- NOTE | 2021-09-02 09:27 | P.HPHOSP_ITS ---
History of Present Illness Date of Service: 09/02/21 Chief Complaint: foot pain This is an 81 year old female with a PMH of RA on methotrexate, HFpEF, s/p TAVR, PAF on coumadin who presents to the hospital with complaints of painful rash on the right foot which began several days ago. The patient reports a mult itude of symptoms for the last several days including fevers and chills, some nausea without vomiting. She reports no chest pain or shortness of breath. She denies any symptoms of frequency/urgency/dysuria. She reports no new medications, however she does report that her pharmacies have changed in the interim. Upon arrival to the ED, she was noted to have a significant rash on the RLE with some lesions on the lower back as well. She reports that the pain has subsided after being given treatment in the ED (Solu-medrol/oxycodone). Work up in the ED showed an elevated ESR (97), CRP, mildly low platelet count of 155. She was given a dose of IV solu-medrol 125mg, oxycodone 5 and admission was requested for suspected vasculitis. Review of Systems Review of Systems: negative except HPI [facility] Medical History (HFpEF) heart failure with preserved ejection fraction Acute pyelonephritis Anxiety and depression Atrial fibrillation CHF exacerbation Chronic anticoagulation Congestive heart failure CVA (cerebral vascular accident) Hypercholesterolemia Hypertension Lumbar vertebral fracture Nonrheumatic aortic valve stenosis Obesity (BMI 30-39.9) Pancytopenia Persistent atrial fibrillation Pneumonia Pulmonary hypertension Rheumatoid arthritis Sepsis TIA (transient ischemic attack) Type 2 diabetes mellitus with hyperglycemia Uterine cancer Family History Father Diabetes CAD (coronary artery disease) Mother Diabetes Hypertension Perforated ulcer Sister Diabetes Surgical History History of appendectomy History of colonoscopy History of left knee replacement History of right knee joint replacement History of transcatheter aortic valve replacement (TAVR) (~06/19/21) S/P ANTONIO-BSO Social History Household Members: Spouse Housing: House Do you presently have visiting nurse or other home services: No Alcohol intake: never Patient Tobacco Use Status: Never used Tobacco e-Cigarette/Vaping Use: Never Used Second Hand Smoke Exposure: No Use of substances other than those prescribed or required for medical reasons: No Advance Directives: Yes Advance Directives on File: Yes Advance Directives Date on File: 08/31/21 service: No Current occupational status: retired Cognitive needs: Yes (cane, walker) Hearing needs: No Vision needs: Yes (glasses) Meds Allergies Allergy/AdvReac Type Severity Reaction Status Date / Time shellfish derived Allergy Unknown itchy Verified 07/29/21 15:11 procaine [From Novocain] AdvReac Unknown makes Verified 07/29/21 15:11 patient itchy,puffy Active Medications: Current Medications Acetaminophen (Acetaminophen 325 Mg Tablet) 650 mg PO Q6H PRN PRN Reason: Pain, Mild (Pain Scale 1-3) Pharmacy Consult (Consult Rx Other Drug Dosing) 1 each MISCELLANE DAILY PRN PRN Reason: Consult order Sodium Chloride (0.9 % Sodium Chloride Flush 3 Ml Syringe) 3 ml IVFLUSH [facility] Home Medications Medication Instructions Recorded Confirmed Last Taken Type methotrexate sodium 2.5 mg tablet 25 mg PO QWEEK 06/23/21 09/02/21 09/01/21 History Physical Exam Vital Signs and Narrative: Vital Signs: Last Vital Signs Temp 98 F 09/02/21 03:37 Pulse 89 09/02/21 03:37 Resp 15 09/02/21 03:37 BP 165/82 H 09/02/21 03:37 Pulse Ox 97 09/02/21 03:37 O2 Del Method 09/02/21 03:37 BMI result Body Mass Index 35.3 Const: Other: Constitutional - Awake and Alert, No apparent distress Eyes - PERRLA, EOMI Cardiovascular - S1S2, IRR Respiratory - Normal lung expansion, Normal respiratory effort, No respiratory distress, CTA bilaterally Gastrointestinal - NT / ND; +BS; No rebound or guarding - No CVA tenderness Extremities - no calf tenderness bilaterally, no swelling Musculoskeletal - Normal inspection, normal ROM Skin - see picutres below Neurological - Alert & oriented x3, No focal deficit Psychological - Appropriate affect Results Labs CBC and Chem 7: 09/02/21 04:31 09/02/21 04:31 Labs: Laboratory Results - last 24 hr 0709/02/21 09/02/21 04:31 04:31 04:31 MCV 90.7 MCH 28.6 MCHC 31.5 RDW 14.5 Plt Count 155 L MPV 10.3 Immature Gran % (Auto) 0.5 H Neut % (Auto) 72.4 Lymph % (Auto) 17.1 L [place] % (Auto) 7.0 Eos % (Auto) 2.7 Baso % (Auto) 0.3 Lymph # (Auto) 1.1 L [place] # (Auto) 0.4 Eos # (Auto) 0.2 Baso # (Auto) 0.0 Abs Immat Gran (auto) 0.03 Absolute Neuts (auto) 4.6 Absolute Nucleated RBC 0.000 Nucleated RBC % (auto) 0.0 ESR PT 30.7 H INR 2.6 H APTT 44.4 H Anion Gap 13 Estim Creat Clear Calc 51.0 Estimated GFR > 60 Random Glucose 117 H Calcium 8.6 Magnesium 1.6 Total Bilirubin 1.2 H Direct Bilirubin 0.5 AST 19 ALT 7 Alkaline Phosphatase 73 D Troponin I High Sens C-Reactive Protein 6.17 H Total Protein 7.4 Albumin 3.2 L COVID-19 (LORRAINE) COVID-19 [employer] 09/02/21 09/02/21 09/02/21 04:31 04:31 04:31 MCV MCH MCHC RDW Plt Count MPV Immature Gran % (Auto) Neut % (Auto) Lymph % (Auto) [place] % (Auto) Eos % (Auto) Baso % (Auto) Lymph # (Auto) [place] # (Auto) Eos # (Auto) Baso # (Auto) Abs Immat Gran (auto) Absolute Neuts (auto) Absolute Nucleated RBC Nucleated RBC % (auto) ESR 97 H PT INR APTT Anion Gap Estim Creat Clear Calc Estimated GFR Random Glucose Calcium Magnesium Total Bilirubin Direct Bilirubin AST ALT Alkaline Phosphatase Troponin I High Sens 17.4 H D C-Reactive Protein Total Protein Albumin COVID-19 ([place]OR[place]INE) Negative COVID-19 Clin Com See Note Assessment and Plan (1) Vasculitis: Status: Acute Plan This is an 81 year old female with a PMH of RA on methotrexate, HFpEF, s/p TAVR, PAF on coumadin who presents to the hospital with complaints of painful rash on the right foot which began several days ago. Her presentation is concern ing for vasculitis. She will be admitted for further treatment. 1. Suspected vasculitis labs ordered (Hep B/C serologies, Complement levels, RF, IVANA, anti dsDNA, cryoglubulins, ACNA, HIV) given solu-medrol 125 this AM, will start prednisone tomorrow likely needs rheum referral, she does have a history of RA, so question is this is related 2. Elevated trop-I repeat now to eval for delta no chest pain reported; EKG shows t-wave inversions in lateral tito, appear present on prior EKG as well 3. Persistent A. Fib continue metoprolol + coumadin 4. Chronic HFpEF/ s/p TAVR continue diretics and baseline meds Full Code DVT pptx -- coumadin Quality Stroke Does the patient have a stroke diagnosis?: No VTE Prior VTE?: No VTE Risk Level:: Medical - moderate - high VTE Device Contraindication: Treatment Not Indicated VTE Drug Contraindication: N/A - Med Ordered
[2021-09-02 09:41] LABS: Glucose, Whole Blood 197 mg/dL (60-115)
[2021-09-02 11:37] LABS: Rheumatoid Factor < 15.0 IU/mL (<15.0)
[2021-09-02 12:29] LABS: HBsAGNum1 0.19 S/CO (0.00-0.99); HIV AB/AG Nonreactive (Nonreactive); Hepatitis A Antibody IgM 0.18 Index (0-0.79); Hepatitis B Core Antibody Nonreactive (Nonreactive); Hepatitis B Surface Antigen Negative (Negative); ~HepC Num1 0.08 S/CO (0.00-0.79); ~Hepatitis A Antibody IgM Nonreactive (Nonreactive); ~Hepatitis B Surface Antibody NONREACTIVE (Nonreactive); ~Hepatitis C Antibody Nonreactive (Nonreactive)
[2021-09-02] MEDS: Aspirin Enteric Coated 81 MG TABLET.DR PO (13:09)
[2021-09-02] MEDS: Metoprolol Tartrate 12.5 MG HALFTAB PO ×2 (13:10→23:37)
[2021-09-02 13:14] LABS: HIV Num 1 0.06 S/CO (0.00-0.99)
[2021-09-02 15:46] VITALS: BP 147/76; PULSE 100; RESP 17; O2SAT 92
[2021-09-02] MEDS: Warfarin Sodium 2 MG TABLET PO (18:21)
[2021-09-02] MEDS: Acetaminophen 325 MG TABLET 650 MG PO (20:02)
[2021-09-02 23:33] VITALS: BP 140/64; PULSE 64; RESP 18; TEMP 36.1; O2SAT 93
--- NOTE | 2021-09-03 02:35 | ECG_ITS ---
Test Reason : CHEST PAIN Blood Pressure : / mmHG Vent. Rate : 065 BPM Atrial Rate : 000 BPM P-R Int : 000 ms QRS Dur : 142 ms QT Int : 490 ms P-R-T Axes : 000 056 -44 degrees QTc Int : 509 ms Atrial fibrillation Right bundle branch block T wave abnormality, consider inferior ischemia Abnormal ECG When compared with ECG of 02-SEP-2021 05:53, No significant change was found Referred By: Lor Rodas Electronically Signed By:Carmelo Andrews
[2021-09-03] MEDS: Acetaminophen 325 MG TABLET 650 MG PO ×2 (03:19→20:43)
[2021-09-03] MEDS: traZODone HCL 25 MG HALFTAB PO ×2 (03:19→20:43)
--- NOTE | 2021-09-03 04:34 | PC.NURSE ---
I assumed nursing care of Yakelin at 1900. Since that time she has been resting quietly on stretcher in 22H. Yakelin is aware that she is admitted to the hospital due to suspected vasculitis and is awaiting a bed assignment. Yakelin has been sleeping, wakes to verbal stimuli at which time she is oriented x 3. She makes eye contact with staff is able to adequately verbalize her needs. She has requested Tylenol on two occasions to help induce sleep. Respirations are non-labored, room air sat's WNL, RR WNL. We will continue to monitor Yakelin.
[2021-09-03 05:13] LABS: MANUAL DIFF FLAG NO
[2021-09-03 05:14] LABS: Basophils Percent Auto 0.2 % (0-2); Hemoglobin 9.3 g/dl (12.0-16.0); Imm Gran Abs Auto 0.03 X10*3/uL (0.00-0.03); Imm Gran Pct Auto 0.5 % (0.0-0.4); Lymphocytes Absolute Auto 0.6 X10*3/uL (1.2-4.9); Lymphocytes Percent Auto 8.9 % (20-40); Mean Corpuscular HGB Conc 32.1 g/dl (31.0-35.0); Mean Corpuscular Hemoglobin 29.3 pg (27.0-33.0); Mean Corpuscular Volume 91.5 fL (80.0-98.0); Mean Platelet Volume 10.6 fL (9.4-12.3); Monocytes Absolute Auto 0.4 X10*3/uL (0.1-1.2); Monocytes Percent Auto 5.5 % (2-11); Neutrophils Absolute Auto 5.6 x10*3/uL (2.0-8.3); Neutrophils Percent Auto 84.9 % (45-73); Platelet Count 130 X10*3/uL (160-400); Red Blood Count 3.17 X10*6/uL (4.20-5.50); Red Cell Distribution Width 13.7 % (11.0-16.0); White Blood Count 6.5 X10*3/uL (4.8-10.8)
[2021-09-03 05:18] LABS: INTERNATIONAL NORM RATIO 2.9 (0.9-1.1); Prothrombin Time 34.5 SEC (10.0-13.1)
[2021-09-03 05:32] LABS: Anion Gap 10 (12-20); Blood Urea Nitrogen 30 mg/dL (9-16); Calcium 8.4 mg/dL (8.4-10.2); Carbon Dioxide 27 mmol/L (22-29); Chloride 103 mmol/L (96-108); Creatinine Clr Calc Pharmacy 55.1; Estimated Glomerular Filt Rate > 60; Glucose Random 167 mg/dL (60-115); Potassium 3.9 mmol/L (3.3-5.1); Sodium 136 mmol/L (135-145)
[2021-09-03 06:19] VITALS: BP 135/88; PULSE 72; RESP 16; TEMP 36.3; O2SAT 95
--- NOTE | 2021-09-03 07:00 | CA_ITS ---
Transthoracic Echocardiogram Patient (Last, First, Middle): Yakelin Abreu E Gender: Female Date of : 1940 Age: 81 Procedure Date: 09/03/2021 Procedure Type: Transthoracic Echocardiogram Location: ER Height: 157.48 cm Weight: 82.1 kg BSA: 1.83 m2 Heart Rate: 69 bpm BP: 138 / 74 mmHg Box Finisher: SB Referring MD: Reyes Cee MD Symptoms: painful/palpable/purpura, AVR, to eval for endocar Study Quality: Adequate/Contrast ECG Rhythm: Atrial Fibrillation Conclusions: - Normal left ventricular cavity size. There is mildly increased left ventricular wall thickness. The left ventricular systolic function is hyperdynamic. The visually estimated ejection fraction is >70%. - Normal right ventricular cavity size. There is moderately decreased right ventricular systolic function. - The left atrium is severely dilated. - The peak aortic velocity is 2.33 m/s. The mean gradient is 12 mmHg. There is a TAVR valve in aortic position. There is trace paravalvular aortic insufficiency. - Significantly elevated right atrial pressure. Mild pulmonary hypertension is present. Findings Procedure Information Contrast agent, definity, is being given per protocol without apparent complications. Left Ventricle Normal left ventricular cavity size. There is mildly increased left ventricular wall thickness. The left ventricular systolic function is hyperdynamic. The visually estimated ejection fraction is >70%. There is a flattened septum in systole and diastole consistent with right ventricular pressure and volume overload. Diastolic function is indeterminate on the basis of available data. There is severe septal asymmetric hypertrophy. Right Ventricle Normal right ventricular cavity size. There is moderately decreased right ventricular systolic function. Atria The left atrium is severely dilated. There is no evidence of interatrial shunt by color Doppler. The right atrium is mildly dilated. Aortic Valve The peak aortic velocity is 2.33 m/s. The mean gradient is 12 mmHg. There is a TAVR valve in aortic position. There is trace paravalvular aortic insufficiency. Mitral Valve There is severe mitral annular calcification. There is trace mitral valve regurgitation. There is no mitral valve stenosis. Mild gradient across the mitral valve noted again due to severe mitral annular calcification. Pulmonic Valve Normal pulmonic valve structure and function. There is trace pulmonic valve regurgitation. Tricuspid Valve Normal tricuspid valve structure and function. There is trace tricuspid valve regurgitation. Significantly elevated right atrial pressure. Mild pulmonary hypertension is present. Great Vessels All visible segments of the aorta are normal in size. The visualized portions of the pulmonary artery and branches are normal. Venous The inferior vena cava is dilated and collapses less than 50% with inspiration. Pericardium/Pleural There is no evidence of pericardial effusion. Prior Study Comparison Changes noted compared to prior study dated: 04/07/2021. RV function moderately reduced. Measurements 2D Linear Measurements IVSd: 1.37 0.6-0.9/0.6-1.0 cm LVIDd: 4.75 3.9-5.3/4.2-5.9 cm LVIDd Index: 2.60 2.4-3.2/2.2-3.1 cm/m2 LVIDs: 2.80 2.0-3.6 cm LVPWd: 0.98 0.7-1.1 cm LA Diam: 4.30 2.7-3.8/3.0-4.0 cm LAIDs Index: 2.35 1.5-2.3 cm/m2 LV Mass: 261.24 67-162/88-224 g LV Mass Index: 142.75 43-95/49-115 g/m2 LVOT Diam: 2.20 3.0+(-)1.3 cm 2D Systolic Function EF 4C: 74.80 >55% EF 2C: 84.80 >55% EF BiP: 80.50 >55% Mitral Valve MV VTI: 0.42 MV Pk Samson: 1.70 MV Mn Samson: 0.93 MV Pk Grad: 12.00 MV Mn Grad: 4.00 MVA Continuity: 1.49 Aortic Valve AoV Pk Samson: 2.33 AoV Mn Samson: 1.61 AoV VTI: 0.50 AoV Pk Grad: 22.00 Aov Mn Grad: 12.00 HALI Cont.VTI: 1.24 LVOT LVOT Pk Samson: 0.83 LVOT Mn Samson: 0.55 LVOT VTI: 0.16 LVOT Pk Grad: 3.00 LVOT Mn Grad: 2.00 LVOT Diam: 2.20 LVOT Area: 3.80 Right Ventricle TAPSE (mm): 13.90 TVS' Samson: 7.80 Tricuspid Valve TR Pk Samson: 2.59 TR Pk Grad: 27.00 RA Press: 15.00 RVSP: 42.00 Great Vessels Aorta Ao Asc: 3.10 2.1-3.4 cm Pulmonary Valve PV Pk Samson: 0.85 Peak PV Grad: 3.00 Updated in Other Vendor System with Status of Final Carmelo Andrews MD electronically signed on 09/03/2021 12:17:08 PM with status of Final
[2021-09-03] MEDS: Spironolactone 25 MG TABLET 12.5 MG PO (09:42)
[2021-09-03] MEDS: Potassium Chloride ER 20 MEQ TAB.ER.PRT PO (09:42)
[2021-09-03] MEDS: Metoprolol Tartrate 12.5 MG HALFTAB PO ×2 (09:42→20:43)
--- NOTE | 2021-09-03 09:44 | P.CONGS_ITS ---
History of Present Illness Consult details Consult date: 09/03/21 Narrative: 81F referred for a skin biopsy. She says she has had a rash on her right leg and right foot for over a week now. She describes pain on these areas. She has hx of RA, and is on Coumadin after TAVR. She has a hx of CHF with diastolic dysfunction Review of Systems Constitutional: Constitutional: Denies chills and Denies fever(s) Cardiovascular: Cardiovascular: Denies chest pain, Denies dyspnea and Reports dyspnea on exertion Respiratory: Respiratory: Denies cough, Denies dyspnea and Reports dyspnea on exertion Gastrointestinal: Gastrointestinal: Denies hematochezia and Denies change in bowel habits Genitourinary: Genitourinary: Denies hematuria Musculoskeletal: Musculoskeletal: Denies back pain and Denies limited range of motion Neurologic: Denies focal weakness and Denies convulsions Psychiatric: Psychiatric: Denies depression and Denies mood swings [facility] Past Medical History Medical History (Updated 09/03/21 @ 09:47 by Clement Urias MD) (HFpEF) heart failure with preserved ejection fraction Acute pyelonephritis Anxiety and depression Atrial fibrillation CHF exacerbation Chronic anticoagulation Congestive heart failure CVA (cerebral vascular accident) Hypercholesterolemia Hypertension Lumbar vertebral fracture Nonrheumatic aortic valve stenosis Obesity (BMI 30-39.9) Pancytopenia Persistent atrial fibrillation Pneumonia Pulmonary hypertension Rash Rheumatoid arthritis Sepsis TIA (transient ischemic attack) Type 2 diabetes mellitus with hyperglycemia Uterine cancer Family History Family History Father Diabetes CAD (coronary artery disease) Mother Diabetes Hypertension Perforated ulcer Sister Diabetes Surgical History Surgical History History of appendectomy History of colonoscopy History of left knee replacement History of right knee joint replacement History of transcatheter aortic valve replacement (TAVR) (~06/19/21) S/P ANTONIO-BSO Social History Social History Household Members: Spouse Housing: House Do you presently have visiting nurse or other home services: No Alcohol intake: never Patient Tobacco Use Status: Never used Tobacco e-Cigarette/Vaping Use: Never Used Second Hand Smoke Exposure: No Use of substances other than those prescribed or required for medical reasons: No Advance Directives: Yes Advance Directives on File: Yes Advance Directives Date on File: 08/31/21 service: No Current occupational status: retired Cognitive needs: Yes (cane, walker) Hearing needs: No Vision needs: Yes (glasses) Meds Allergies Allergy/AdvReac Type Severity Reaction Status Date / Time shellfish derived Allergy Unknown itchy Verified 07/29/21 15:11 procaine [From Novocain] AdvReac Unknown makes Verified 07/29/21 15:11 patient itchy,puffy Active Medications: Current Medications Acetaminophen (Acetaminophen 325 Mg Tablet) 650 mg PO Q6H PRN PRN Reason: Pain, Mild (Pain Scale 1-3) Last Admin: 09/03/21 03:19 Dose: 650 mg Aspirin (Aspirin Enteric Coated 81 Mg Tablet.Dr) 81 mg PO DAILY [facility] Last Admin: 09/02/21 13:09 Dose: 81 mg Atorvastatin Calcium (Atorvastatin Calcium 10 Mg Tablet) 10 mg PO BEDTIME [facility] Folic Acid (Folic Acid 1 Mg Tablet) 1 mg PO DAILY [facility] Furosemide (Furosemide 40 Mg Tablet) 40 mg PO DAILY [facility]; Protocol Metoprolol Tartrate (Metoprolol Tartrate 12.5 Mg Halftab) 12.5 mg PO BID [facility]; Protocol Last Admin: 09/02/21 23:37 Dose: 12.5 mg Pharmacy Consult (Consult Rx Other Drug Dosing) 1 each MISCELLANE DAILY PRN PRN Reason: Consult order Polyethylene Glycol (Polyethylene Glycol 3350 17 Gm Powd.Pack) 17 gm PO DAILY PRN PRN Reason: constipation Potassium Chloride (Potassium Chloride Er 20 Meq Tab.Er.Prt) 20 meq PO DAILY [facility] Prednisone (Prednisone 20 Mg Tablet) 60 mg PO DAILY [facility] Senna/Docusate Sodium (Sennosides/Docusate Sodium Tablet) 2 tab PO DAILY PRN PRN Reason: constipation Sodium Chloride (0.9 % Sodium Chloride Flush 3 Ml Syringe) 3 ml IVFLUSH QSHIFT [facility] Last Admin: 09/03/21 00:40 Dose: Not Given Spironolactone (Spironolactone 25 Mg Tablet) 12.5 mg PO DAILY [facility]; Protocol Trazodone HCl (Trazodone Hcl 25 Mg Halftab) 25 mg PO BEDTIME PRN PRN Reason: sleep Last Admin: 09/03/21 03:19 Dose: 25 mg Vitamin D (Cholecalciferol (Vitamin D3) 25 Mcg Tablet) 50 mcg PO DAILY [facility] Warfarin Sodium (Warfarin Sodium 2 Mg Tablet) 2 mg PO DAILY@1800 [facility] Last Admin: 09/02/21 18:21 Dose: 2 mg Home Medications Medication Instructions Recorded Confirmed Last Taken Type methotrexate sodium 2.5 mg tablet 25 mg PO QWEEK 06/23/21 09/02/21 09/01/21 History Physical Exam Vital Signs: Vital Signs: Last Vital Signs Temp 97.4 F 09/03/21 06:19 Pulse 72 09/03/21 06:19 Resp 16 09/03/21 06:19 BP 135/88 09/03/21 06:19 Pulse Ox 95 09/03/21 06:19 O2 Del Method 09/03/21 06:19 BMI result Body Mass Index 35.3 Const: General: comfortable and no acute distress Orientation/consciousness: patient oriented x3 Neck: Neck: Yes no lymphadenopathy Resp: Auscultation: clear to auscultation bilaterally Cardio: Rhythm: regular rhythm GI: Palpation (GI): Soft to palpation, nontender and no guarding Neuro: General: patient oriented x3 Extrem: Other: macular rash, right lower leg and foot Results Labs Result diagrams: 09/03/21 04:59 09/03/21 04:59 Labs: Abnormal lab results 09/03/21 09/03/21 09/03/21 Range/Units 04:59 04:59 04:59 RBC 3.17 L (4.20-5.50) X10*6/uL Hgb 9.3 L (12.0-16.0) g/dl Hct 29.0 L (37.0-47.0) % Plt Count 130 L (160-400) X10*3/uL Immature Gran % (Auto) 0.5 H (0.0-0.4) % Neut % (Auto) 84.9 H (45-73) % Lymph % (Auto) 8.9 L (20-40) % Lymph # (Auto) 0.6 L (1.2-4.9) X10*3/uL PT 34.5 H (10.0-13.1) SEC INR 2.9 H (0.9-1.1) Anion Gap 10 L (12-20) BUN 30 H (9-16) mg/dL Random Glucose 167 H (60-115) mg/dL Short CBC 09/03/21 Range/Units 04:59 WBC 6.5 (4.8-10.8) X10*3/uL Hgb 9.3 L (12.0-16.0) g/dl Hct 29.0 L (37.0-47.0) % Plt Count 130 L (160-400) X10*3/uL [facility] 09/03/21 04:59 Sodium 136 Potassium 3.9 Chloride 103 Carbon Dioxide 27 BUN 30 H Creatinine 0.76 Calcium 8.4 All other labs normal. Assessment and Plan (1) Rash: Status: Acute Plan I have been requested to do a skin biopsy for her rash on the right lower leg. I explained to her the technique of punch biopsy. I explained to her the risks, benefits and alternatives. She has given consent. An area of the right lower lleg with the rash was prepped. Lidocaine 1% was used for local anesthesia. I used a punch biopsy to remove a sample of the skin and subcutaneous tissue. there was good hemostasis. Dressings were applied. She tolerated the procedure well. Procedures Date of Service Date of Service: 09/03/21
[2021-09-03] MEDS: predniSONE 20 MG TABLET 60 MG PO (09:45)
[2021-09-03] MEDS: Aspirin Enteric Coated 81 MG TABLET.DR PO (09:45)
[2021-09-03] MEDS: Cholecalciferol (Vitamin D3) 25 MCG TABLET 50 MCG PO (09:46)
[2021-09-03] MEDS: Furosemide 40 MG TABLET PO (09:47)
[2021-09-03] MEDS: 0.9 % Sodium Chloride Flush 3 ML SYRINGE IVFLUSH ×2 (09:48→19:38)
[2021-09-03] MEDS: Folic Acid 1 MG TABLET PO (09:48)
[2021-09-03 09:49] VITALS: BP 147/62; PULSE 65; RESP 16; O2SAT 96
--- NOTE | 2021-09-03 11:03 | P.PNIM_ITS ---
Subjective Subjective Date of Service: 09/03/21 Interval History: cc: foot pain and rash interval history: less itching and pain Cardiovascular Cardiovascular: Reports no additional cardiovascular complaints Respiratory Respiratory: Reports no additional respiratory complaints Physical Exam Vital Signs: Vital Signs: Last Vital Signs Temp 97.4 F 09/03/21 06:19 Pulse 65 09/03/21 09:49 Resp 16 09/03/21 09:49 BP 147/62 H 09/03/21 09:49 Pulse Ox 96 09/03/21 09:49 O2 Del Method 09/03/21 09:49 BMI result Body Mass Index 35.3 General: AO X 3, no acute distress Resp: CTA bilateral, no accessory muscles used CVS: S1,S2,RRR, murmur GI: soft, non tender, non distended Neuro: motor grossly intact, alert Psych: appropriate affect, appropriate insight skin: palpable purpura, tender, ankles, petechia on upper extremities Objective Data Active Medications Acetaminophen (Acetaminophen 325 Mg Tablet) 650 mg PO Q6H PRN PRN Reason: Pain, Mild (Pain Scale 1-3) Last Admin: 09/03/21 03:19 Dose: 650 mg Documented By: BALA Aspirin (Aspirin Enteric Coated 81 Mg Tablet.Dr) 81 mg PO DAILY [facility] Last Admin: 09/03/21 09:45 Dose: 81 mg Documented By: MICHELLE Atorvastatin Calcium (Atorvastatin Calcium 10 Mg Tablet) 10 mg PO BEDTIME [facility] Folic Acid (Folic Acid 1 Mg Tablet) 1 mg PO DAILY [facility] Last Admin: 09/03/21 09:48 Dose: 1 mg Documented By: MICHELLE Furosemide (Furosemide 40 Mg Tablet) 40 mg PO DAILY [facility]; Protocol Last Admin: 09/03/21 09:47 Dose: 40 mg Documented By: MICHELLE Metoprolol Tartrate (Metoprolol Tartrate 12.5 Mg Halftab) 12.5 mg PO BID [facility]; Protocol Last Admin: 09/03/21 09:42 Dose: 12.5 mg Documented By: MICHELLE Pharmacy Consult (Consult Rx Other Drug Dosing) 1 each MISCELLANE DAILY PRN PRN Reason: Consult order Polyethylene Glycol (Polyethylene Glycol 3350 17 Gm Powd.Pack) 17 gm PO DAILY PRN PRN Reason: constipation Potassium Chloride (Potassium Chloride Er 20 Meq Tab.Er.Prt) 20 meq PO DAILY [facility] Last Admin: 09/03/21 09:42 Dose: 20 meq Documented By: MICHELLE Prednisone (Prednisone 20 Mg Tablet) 60 mg PO DAILY [facility] Last Admin: 09/03/21 09:45 Dose: 60 mg Documented By: MICHELLE Senna/Docusate Sodium (Sennosides/Docusate Sodium Tablet) 2 tab PO DAILY PRN PRN Reason: constipation Sodium Chloride (0.9 % Sodium Chloride Flush 3 Ml Syringe) 3 ml IVFLUSH QSHIFT [facility] Last Admin: 09/03/21 09:48 Dose: 3 ml Documented By: MICHELLE Spironolactone (Spironolactone 25 Mg Tablet) 12.5 mg PO DAILY [facility]; Protocol Last Admin: 09/03/21 09:42 Dose: 12.5 mg Documented By: MICHELLE Trazodone HCl (Trazodone Hcl 25 Mg Halftab) 25 mg PO BEDTIME PRN PRN Reason: sleep Last Admin: 09/03/21 03:19 Dose: 25 mg Documented By: BALA Vitamin D (Cholecalciferol (Vitamin D3) 25 Mcg Tablet) 50 mcg PO DAILY [facility] Last Admin: 09/03/21 09:46 Dose: 50 mcg Documented By: MICHELLE Warfarin Sodium (Warfarin Sodium 2 Mg Tablet) 2 mg PO DAILY@1800 [facility] Last Admin: 09/02/21 18:21 Dose: 2 mg Documented By: CHEVY Labs CBC & Chem 7: 09/03/21 04:59 09/03/21 04:59 Labs: Laboratory Results - last 24 hr 09/02/21 09/02/21 09/03/21 11:03 11:03 04:59 MCV 91.5 MCH 29.3 MCHC 32.1 RDW 13.7 Plt Count 130 L MPV 10.6 Immature Gran % (Auto) 0.5 H Neut % (Auto) 84.9 H Lymph % (Auto) 8.9 L [place] % (Auto) 5.5 Eos % (Auto) 0.0 Baso % (Auto) 0.2 Lymph # (Auto) 0.6 L [place] # (Auto) 0.4 Eos # (Auto) 0.0 Baso # (Auto) 0.0 Abs Immat Gran (auto) 0.03 Absolute Neuts (auto) 5.6 Absolute Nucleated RBC 0.000 Nucleated RBC % (auto) 0.0 PT INR Anion Gap Estim Creat Clear Calc Estimated GFR Random Glucose Calcium Rheumatoid Factor < 15.0 Hepatitis A IgM Ab Nonreactive Hep Bs Antigen Negative Hep Bs Antibody NONREACTIVE Hep B Core Total Ab Nonreactive Hepatitis C Ab (EIA) Nonreactive HIV 1&2 Ab/P24 Ag 4thGn Nonreactive 09/03/21 09/03/21 04:59 04:59 MCV MCH MCHC RDW Plt Count MPV Immature Gran % (Auto) Neut % (Auto) Lymph % (Auto) [place] % (Auto) Eos % (Auto) Baso % (Auto) Lymph # (Auto) [place] # (Auto) Eos # (Auto) Baso # (Auto) Abs Immat Gran (auto) Absolute Neuts (auto) Absolute Nucleated RBC Nucleated RBC % (auto) PT 34.5 H INR 2.9 H Anion Gap 10 L Estim Creat Clear Calc 55.1 Estimated GFR > 60 Random Glucose 167 H Calcium 8.4 Rheumatoid Factor Hepatitis A IgM Ab Hep Bs Antigen Hep Bs Antibody Hep B Core Total Ab Hepatitis C Ab (EIA) HIV 1&2 Ab/P24 Ag 4thGn Assessment and Plan (1) Rash: Status: Acute Plan 81F presented with painful rash and fevers suspected vasculitis in setting of RA prednisone s/p biopsy - follow up path follow up rheum as outpatient elevated trop hisotry of CAD follow up echo asa, coumadin chronic afib metoprolol, coumadin hfpef, continue lasix dvt prophylaxis - coumadin full code reason for continued hospitalization: monitoring for improvement of vasculitis on steroids Quality Stroke Does the patient have a stroke diagnosis?: No VTE Prior VTE?: No VTE Risk Level:: Medical - moderate - high VTE Device Contraindication: Treatment Not Indicated VTE Drug Contraindication: N/A - Med Ordered
--- NOTE | 2021-09-03 15:21 | MHC.CM.PN ---
Patient lives in a 2 family house on the first floor, with her and she uses both a cane and a walker to assist with mobility. Patient has [facility] from [facility] and she is active with [facility]. Home with resumption of said services is the goal and CM has initiated and will follow for dc planning. PCP is Dr. Riccardo Page and Patient has received Moderna/Covid vax X2and Pfizer X1.
[2021-09-03 16:00] VITALS: BP 170/82; PULSE 65; RESP 19; TEMP 36.6; O2SAT 95
[2021-09-03] MEDS: Warfarin Sodium 2 MG TABLET PO (16:58)
--- NOTE | 2021-09-03 18:00 | PC.NURSE ---
Pt arrived to unit in a wheel chair , pt screaming and yelling and demanding people to get out of her house , pt refusing to get out of wheelchair . security called for aggression. Pt non re-directable . at bedside . Nursing distribution center supervisor aware . new order for IM Zyprexa. This RN sat with pt and pt calmed down . pt still refusing to go in room , pt confused and also refusing to eat dinner , sitter at pt side for safety .
[2021-09-03 19:20] VITALS: BP 176/75; PULSE 64; RESP 19; TEMP 36.8; O2SAT 95
[2021-09-03] MEDS: OLANZapine 10 MG VIAL 5 MG IM (20:06)
[2021-09-03] MEDS: Atorvastatin Calcium 10 MG TABLET PO (20:43)
[2021-09-03 23:32] VITALS: BP 194/64; PULSE 63; RESP 17; TEMP 36.3; O2SAT 96
--- NOTE | 2021-09-04 02:33 | PC.NURSE ---
around 1945 pt became very agitated, pt was confused about where she was, stating she was in her house and wanted us out of it, wanting to go downstairs to her kitchen, pt was unable to be re-directed, she got aggressive with staff and started hitting, yelling and calling this RN and the sitter bitch . IM zyprexa given at 2006 with good effect, pt calmed down and was less agitated.
[2021-09-04] MEDS: Acetaminophen 325 MG TABLET 650 MG PO (03:46)
[2021-09-04 03:50] VITALS: BP 150/73; PULSE 80; RESP 18; TEMP 36.8; O2SAT 96
[2021-09-04 05:55] LABS: Hematocrit 32.5 % (37.0-47.0); Hemoglobin 10.2 g/dl (12.0-16.0); Mean Corpuscular HGB Conc 31.4 g/dl (31.0-35.0); Mean Corpuscular Hemoglobin 28.3 pg (27.0-33.0); Mean Corpuscular Volume 90.3 fL (80.0-98.0); Mean Platelet Volume 10.3 fL (9.4-12.3); Platelet Count 143 X10*3/uL (160-400); Red Cell Distribution Width 14.1 % (11.0-16.0); White Blood Count 8.1 X10*3/uL (4.8-10.8)
[2021-09-04 06:01] LABS: INTERNATIONAL NORM RATIO 3.5 (0.9-1.1)
[2021-09-04 06:08] LABS: Anion Gap 14 (12-20); Blood Urea Nitrogen 39 mg/dL (9-16); Calcium 9.2 mg/dL (8.4-10.2); Carbon Dioxide 27 mmol/L (22-29); Chloride 103 mmol/L (96-108); Estimated Glomerular Filt Rate 56; Glucose Fasting 178 mg/dL (60-99); Potassium 4.2 mmol/L (3.3-5.1); Sodium 140 mmol/L (135-145)
[2021-09-04 07:37] VITALS: BP 198/90; PULSE 70; RESP 14; TEMP 36.5; O2SAT 96
[2021-09-04] MEDS: Cholecalciferol (Vitamin D3) 25 MCG TABLET 50 MCG PO (07:55)
[2021-09-04] MEDS: Potassium Chloride ER 20 MEQ TAB.ER.PRT PO (07:55)
[2021-09-04] MEDS: Aspirin Enteric Coated 81 MG TABLET.DR PO (07:55)
[2021-09-04] MEDS: Metoprolol Tartrate 12.5 MG HALFTAB PO (07:55)
[2021-09-04] MEDS: Folic Acid 1 MG TABLET PO (07:56)
[2021-09-04] MEDS: predniSONE 20 MG TABLET 60 MG PO (07:56)
[2021-09-04] MEDS: Spironolactone 25 MG TABLET 12.5 MG PO (07:56)
[2021-09-04] MEDS: Furosemide 40 MG TABLET PO (07:56)
[2021-09-04] MEDS: 0.9 % Sodium Chloride Flush 3 ML SYRINGE IVFLUSH (07:57)
--- NOTE | 2021-09-04 10:55 | PM.DS ---
DS: Providers Provider Date of Service: 09/04/21 Date of admission: 09/02/21 09:07 Primary care physician: None Physician Consults: 09/02/21 15:24 Consult to General Surgery Routine Consulting Provider: Clement Urias Reason for consultation: presents with purpura, concern for vasculitis, need biopsy, on coumadin DS: Diagnosis Discharge Diagnosis (1) Rash: Status: Acute DS: Summary Hospital Course Hospital Course: from initial hpi: Chief Complaint: foot pain This is an 81 year old female with a PMH of RA on methotrexate, HFpEF, s/p TAVR, PAF on coumadin who presents to the hospital with complaints of painful rash on the right foot which began several days ago. The patient reports a multitude of symptoms for the last several days including fevers and chills, some nausea without vomiting. She reports no chest pain or shortness of breath. She denies any symptoms of frequency/urgency/dysuria. She reports no new medications, however she does report that her pharmacies have changed in the interim. Upon arrival to the ED, she was noted to have a significant rash on the RLE with some lesions on the lower? back as well. She reports that the pain has subsided after being given treatment in the ED (Solu-medrol/oxycodone). Work up in the ED showed an elevated ESR (97), CRP, mildly low platelet count of 155. She was given a dose of IV solu-medrol 125mg, oxycodone 5 and admission was requested for suspected vasculitis. hospital course: Patient was admitted for rash which was suspected of being vasculitis in the setting of rheumatoid arthritis. She was started on prednisone. 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 She did note improvement in her symptoms with the steroids, she will continue on prednisone 60 mg daily and follow up with Rheumatology for further treatment. Endocarditis was felt to be unlikely due to negative blood cultures and echo. Course was complicated by hospital delirium, she was given 1 dose of Zyprexa and symptoms improved. For coronary disease showed continue aspirin and Coumadin, for chronic atrial fibrillation show continue metoprolol and Coumadin. For her heart failure with preserved ejection fraction she will continue Lasix. Time Spent with Patient Time attestation: Total time spent providing and/or coordinating discharge services: Discharge coordination time: Greater than 30 minutes Quality: Safe Use of Opioids Does Pt have an Active Cancer Diagnosis on the Problem List?: No Quality: Stroke Does the patient have a stroke diagnosis?: No Physical Exam Vital Signs: Vital Signs: Last Vital Signs Temp 97.7 F 09/04/21 07:37 Pulse 70 09/04/21 07:37 Resp 14 09/04/21 07:37 BP 198/90 H 09/04/21 07:37 Pulse Ox 96 09/04/21 07:37 O2 Del Method 09/04/21 07:37 BMI result Body Mass Index 35.3 General: AO X 3, no acute distress Resp: CTA bilateral, no accessory muscles used CVS: S1,S2,RRR, murmur GI: soft, non tender, non distended Neuro: motor grossly intact, alert Psych: appropriate affect, impaired insight skin: palpable purpura, tender, ankles, petechia on upper extremities DS: Data Data Completed and Pending Completed studies during hospitalization [Text1]: Procedures Transfusion of Nonautologous Red Blood Cells into Peripheral Vein, Percutaneous Approach (01/01/21) Pending studies at discharge: Pending at discharge 09/03/21 09:43 Surgical [PTH] Routine Labs on day of discharge: Laboratory Results - last 24 hr 09/04/21 09/04/21 09/04/21 05:32 05:32 05:32 WBC 8.1 RBC 3.60 L Hgb 10.2 L Hct 32.5 L MCV 90.3 MCH 28.3 MCHC 31.4 RDW 14.1 Plt Count 143 L MPV 10.3 Absolute Nucleated RBC 0.000 Nucleated RBC % (auto) 0.0 PT 42.0 H INR 3.5 H Sodium 140 Potassium 4.2 Chloride 103 Carbon Dioxide 27 Anion Gap 14 BUN 39 H Creatinine 0.95 Estim Creat Clear Calc 44.0 Estimated GFR 56 Fasting Glucose 178 H Calcium 9.2 D Preliminary micro results at discharge 09/02/21 13:44 Blood Culture - Preliminary Blood - Venous No growth after 24 hours. 09/02/21 13:49 Blood Culture - Preliminary Blood - Venous No growth after 24 hours. Discharge Plan Discharge Patient Disposition: Home, Self-Care Discharge Diagnosis: vasculitis presumed Referrals: Physician,None [Primary Care Provider] - 1 Week Anthony Kwon MD [Physician] - 1 Week (suspected vasculitis) Discharge Medications: New prednisone 20 mg Tablet 60 mg PO DAILY Qty: 7 0RF Continued warfarin 2 mg tablet 2 mg PO DAILY 90 Days Qty: 90 0RF Rx Instructions: or as directed cholecalciferol (vitamin D3) 50 mcg (2,000 unit) capsule 50 mcg PO DAILY 90 Days Qty: 90 3RF furosemide 40 mg tablet 40 mg PO DAILY Qty: 90 3RF metoprolol tartrate 25 mg tablet 12.5 mg PO BID 90 Days Qty: 90 2RF simvastatin 20 mg tablet 20 mg PO DAILY 90 Days Qty: 90 2RF spironolactone 25 mg tablet 12.5 mg PO DAILY 90 Days Qty: 45 3RF Protocol: Hold for SBP< HOLD for SBP < : 90 trazodone 50 mg tablet 25 mg PO BEDTIME PRN (Reason: sleep) 90 Days Qty: 90 1RF potassium chloride 20 mEq tablet extended release 20 meq PO DAILY 90 Days Qty: 90 0RF aspirin 81 mg tablet,delayed release (DR/EC) 81 mg PO DAILY Qty: 90 3RF folic acid 1 mg tablet 1 mg PO DAILY 90 Days Qty: 90 3RF polyethylene glycol 3350 [Miralax] 17 gram/dose powder 17 g PO DAILY PRN (Reason: constipation) Qty: 119 0RF sennosides-docusate sodium [Senna with Docusate Sodium] 8.6-50 mg tablet 2 tab-cap PO DAILY PRN (Reason: constipation) 90 Days Qty: 180 0RF (DME) blood-glucose meter [OneTouch Ultra2 Meter] Kit See Rx Instructions .ROUTE .MEDSUPPLY Qty: 1 0RF Rx Instructions: As directed check the blood sugar once a day (DME) blood sugar diagnostic Strip See Rx Instructions .ROUTE .MEDSUPPLY Qty: 250 3RF Rx Instructions: Twice a day methotrexate sodium 2.5 mg tablet 25 mg PO QWEEK Discharge Orders: Discharge Order (Routine); Ordered 09/04/21 Ordered By: Giles Negron Diet: Advance to usual diet Activity on Discharge: As tolerated Stand Alone Forms: Patient Portal Discharge page Care Plan Goals: work up and treat skin rash Health Concerns: possible vasculitis Plan of Treatment: prednisone, follow up with rheumatology and pathology results Assessment: see above
--- NOTE | 2021-09-04 11:30 | MHC.CM.PN ---
Patient has been medically cleared for discharge today. Discharge to Home with resumption of home services. Family informed of discharge, Emily, daughter will provide transportation. Nurse has been informed of time patient will be pick-up.
[2021-09-04 11:40] VITALS: BP 148/67; PULSE 58; RESP 18; TEMP 36.4; O2SAT 96
[2021-09-04 14:33] LABS: Complement C3 139 mg/dL
[2021-09-04 20:02] LABS: Myeloperoxidase Antibody <1.0 AI; Proteinase 3 PR3 Antibodies <1.0 AI
[2021-09-06 14:26] LABS: Complement Total CH50 >60 U/mL (31-60)
[2021-09-07 13:43] LABS: Anti DNA DS Antibody <1 IU/mL
[2021-09-07 15:02] LABS: Anti Nuclear Antibody Screen NEGATIVE (NEGATIVE)
[2021-09-08 23:13] LABS: Smooth Muscle Antibody <20 U (<20)
[2021-09-11 17:30] LABS: Cryoglobulin, Qual NONE DETECTED ((NDT))
== END 2021-09-04 14:03 | disposition home or self-care (01) ==
LOC: HO.ED 05:25 → HO.EDOVER 09:15 → HO.S3 09-03 12:30
PROVIDERS: Admitting Provider Family Medicine; Emergency Provider Emergency Medicine; PCP Internal Medicine; Visit Provider Internal Medicine
DX: M31.0 Hypersensitivity angiitis (principal); D69.2 Other nonthrombocytopenic purpura; M06.9 Rheumatoid arthritis, unspecified; R41.0 Disorientation, unspecified; M79.662 Pain in left lower leg; M79.661 Pain in right lower leg; D69.1 Qualitative platelet defects; R77.8 Other specified abnormalities of plasma proteins; D64.9 Anemia, unspecified; R11.0 Nausea; Z20.822 Contact with and (suspected) exposure to COVID-19; E11.9 Type 2 diabetes mellitus without complications; I11.0 Hypertensive heart disease with heart failure; I50.32 Chronic diastolic (congestive) heart failure; E78.5 Hyperlipidemia, unspecified; F41.8 Other specified anxiety disorders; I48.19 Other persistent atrial fibrillation; E66.9 Obesity, unspecified; Z68.35 Body mass index [BMI] 35.0-35.9, adult; Z95.2 Presence of prosthetic heart valve; Z96.653 Presence of artificial knee joint, bilateral; Z87.01 Personal history of pneumonia (recurrent); Z86.73 Personal history of transient ischemic attack (TIA), and cerebral infarction without residual deficits; Z85.42 Personal history of malignant neoplasm of other parts of uterus; Z79.02 Long term (current) use of antithrombotics/antiplatelets; Z79.01 Long term (current) use of anticoagulants; Z79.82 Long term (current) use of aspirin; Z79.899 Other long term (current) drug therapy
CPT/HCPCS: 11104; 36415; 80048; 80076; 82595; 82947; 83735; 84484; 85025; 85027; 85610; 85652; 85730; 86015; 86021; 86038; 86039; 86140; 86160; 86162; 86225; 86431; 86704; 86706; 86709; 86803; 87040; 87340; 87389; 87635; 88305; 88312; 93005; 93306; 96372; 96374; 99218; 99285; J2930; Q9957

== ENCOUNTER → 2021-09-08 09:05 | Outpatient (REF) | payer MEDICARE, OTHER, SELFPAY | LOC: HO.CARD 09:05 | PROVIDERS: PCP Internal Medicine; Visit Provider Internal Medicine Interventional Cardiology | DX: Z13.89 Encounter for screening for other disorder (principal) ==

== ENCOUNTER 2021-09-13 21:16 | Emergency (ER) | payer MEDICARE, OTHER, SELFPAY ==
--- NOTE | ~2021-09-13 | XR_ITS ---
EXAMINATION: XR ANKLE, RIGHT CLINICAL INFORMATION: Heel wound COMPARISON: None TECHNIQUE: AP, lateral, and mortise views of the right ankle. FINDINGS: Soft tissue wound overlying the posterior calcaneal tuberosity. No underlying osseous erosive or destructive change. No periostitis. No fracture or dislocation. Mild ankle joint osteoarthritis with subchondral sclerosis and small osteophytes. Ankle mortise is congruent and intact. No ankle joint effusion. Additional osteoarthritic changes at the Chopart joint and midfoot. Extensive vascular and dermal calcifications. XR/XR ankle RT min 3V IMPRESSION: 1. No acute osseous injury or radiographic evidence of advanced osteomyelitis. 2. No tracking soft tissue gas. 3. Osteoarthritic changes at the ankle and Chopart joint.
--- NOTE | 2021-09-13 21:41 | ED_ITS ---
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 patient discharged on prednisone comes back as pain in the heel area is getting worse for last few days although rash on the foot is getting better no pus discharge no fever no chills Related Data Home Medications Medication Instructions Recorded Confirmed methotrexate sodium 2.5 mg tablet 25 mg PO QWEEK 06/23/21 09/02/21 Previous Rx's Medication Instructions Recorded blood sugar diagnostic #250 ea 07/29/21 blood-glucose meter (OneTouch #1 ea 07/29/21 Ultra2 Meter kit) warfarin 2 mg tablet 2 mg PO DAILY 90 days #90 tabs 08/04/21 cholecalciferol (vitamin D3) 50 50 mcg PO DAILY 90 days #90 caps 08/12/21 mcg (2,000 unit) capsule furosemide 40 mg tablet 40 mg PO DAILY #90 tabs 08/12/21 metoprolol tartrate 25 mg tablet 12.5 mg PO BID 90 days #90 tabs 08/12/21 potassium chloride 20 mEq 20 meq PO DAILY 90 days #90 tabs 08/12/21 tablet,extended release simvastatin 20 mg tablet 20 mg PO DAILY 90 days #90 tabs 08/12/21 spironolactone 25 mg tablet 12.5 mg PO DAILY 90 days #45 tabs 08/12/21 trazodone 50 mg tablet 25 mg PO BEDTIME PRN sleep 90 days 08/12/21 #90 tabs aspirin 81 mg tablet,delayed 81 mg PO DAILY #90 tabs 08/21/21 release folic acid 1 mg tablet 1 mg PO DAILY 90 days #90 tabs 08/21/21 polyethylene glycol 3350 17 17 g PO DAILY PRN constipation 08/21/21 gram/dose oral powder (Miralax) #119 grams sennosides 8.6 mg-docusate sodium 2 tab-cap PO DAILY PRN 08/21/21 50 mg tablet (Senna with Docusate constipation 90 days #180 tabs Sodium) prednisone 20 mg tablet 60 mg PO DAILY #7 tabs 09/04/21 Hospital bed #1 ea 09/09/21 doxycycline hyclate 100 mg tablet 100 mg PO BID #20 tabs 09/13/21 prednisone 10 mg tablets in a dose 10 mg PO DAILY #35 ea 09/13/21 pack Allergies Allergy/AdvReac Type Severity Reaction Status Date / Time shellfish derived Allergy Unknown itchy Verified 09/13/21 21:44 procaine [From Novocain] AdvReac Unknown makes Verified 09/13/21 21:44 patient itchy,puffy Review of Systems Review of Systems: Yes all other systems are reviewed and are negative [facility] Past Medical History Medical History (HFpEF) heart failure with preserved ejection fraction Acute pyelonephritis Anxiety and depression Atrial fibrillation CHF exacerbation Chronic anticoagulation Congestive heart failure CVA (cerebral vascular accident) Hypercholesterolemia Hypertension Lumbar vertebral fracture Nonrheumatic aortic valve stenosis Obesity (BMI 30-39.9) Pancytopenia Persistent atrial fibrillation Pneumonia Pulmonary hypertension Rash Rheumatoid arthritis Sepsis TIA (transient ischemic attack) Type 2 diabetes mellitus with hyperglycemia Uterine cancer Surgical History History of appendectomy History of colonoscopy History of left knee replacement History of right knee joint replacement History of transcatheter aortic valve replacement (TAVR) (~06/19/21) S/P ANTONIO-BSO Family History Family History Father Diabetes CAD (coronary artery disease) Mother Diabetes Hypertension Perforated ulcer Sister Diabetes Social History Social History Household Members: Spouse Housing: House Do you presently have visiting nurse or other home services: No Alcohol intake: never Patient Tobacco Use Status: Never used Tobacco e-Cigarette/Vaping Use: Never Used Second Hand Smoke Exposure: No Advance Directives: Yes Advance Directives on File: Yes Advance Directives Date on File: 08/31/21 service: No Current occupational status: retired Cognitive needs: Yes (cane, walker) Hearing needs: No Vision needs: Yes (glasses) Physical Exam Vital Signs: Vital Signs: Last Vital Signs Temp 97.4 F 09/13/21 22:40 Pulse 72 09/14/21 00:00 Resp 16 09/13/21 22:40 BP 121/57 L 09/14/21 00:00 Pulse Ox 98 09/13/21 22:40 O2 Del Method 09/13/21 22:40 BMI result Body Mass Index 33.9 Appearance: Alert. Oriented X3. No acute distress. ENT: Pharynx normal. Oral Mucosa moist Neck: Normal inspection. Neck supple. CVS: Normal heart rate and rhythm. Pulses normal. Respiratory: No respiratory distress. Equal air entry bilateral, no wheezing/rales/rhonchi Abdomen: Soft and nontender. Bowel sounds are present, no mass palpable, no CVA tenderness Neuro: Oriented X 3. No motor deficit. Extrem: Other: MDM - Wound/Laceration MDM Narrative Medical decision making narrative: Patient vasculitis right foot with surrounding inflammation mild cellulitis will discharge patient home on doxycycline. Patient received a course of 10 days prednisone is still has elevated CRP and sed rate will continue lower dose of prednisone for next 1 month. Will discharge patient home on prednisone and doxycycline Lab Data Attestation: I reviewed the patient's lab results. Result diagrams: 09/13/21 22:33 09/13/21 22:31 Labs: Lab Results 09/13/21 09/13/21 09/13/21 Range/Units 22:31 22:31 22:31 WBC (4.8-10.8) X10*3/uL RBC (4.20-5.50) X10*6/uL Hgb (12.0-16.0) g/dl Hct (37.0-47.0) % MCV (80.0-98.0) fL MCH (27.0-33.0) pg MCHC (31.0-35.0) g/dl RDW (11.0-16.0) % Plt Count (160-400) X10*3/uL MPV (9.4-12.3) fL Immature Gran % (Auto) (0.0-0.4) % Neut % (Auto) (45-73) % Lymph % (Auto) (20-40) % Mercer % (Auto) (2-11) % Eos % (Auto) (0-4) % Baso % (Auto) (0-2) % Lymph # (Auto) (1.2-4.9) X10*3/uL Mercer # (Auto) (0.1-1.2) X10*3/uL Eos # (Auto) (0.0-0.4) X10*3/uL Baso # (Auto) (0.0-0.2) X10*3/uL Abs Immat Gran (auto) (0.00-0.03) X10*3/uL Absolute Neuts (auto) (2.0-8.3) x10*3/uL Absolute Nucleated RBC (0.0-0.012) X10*3/uL Nucleated RBC % (auto) (0.0-0.2) /100WBC ESR 44 H (0-20) MM/HR PT (10.0-13.1) SEC INR (0.9-1.1) Sodium 140 (135-145) mmol/L Potassium 3.8 (3.3-5.1) mmol/L Chloride 101 (96-108) mmol/L Carbon Dioxide 28 (22-29) mmol/L Anion Gap 15 (12-20) BUN 33 H (9-16) mg/dL Creatinine 0.80 (0.5-1.4) mg/dL Estim Creat Clear Calc 51.2 Estimated GFR > 60 Random Glucose 140 H (60-115) mg/dL Lactic Acid (0.5-2.0) mmol/L Calcium 8.4 D (8.4-10.2) mg/dL Total Bilirubin 1.2 H (0.0-1.0) mg/dL AST 16 (5-31) U/L ALT 16 (0-31) U/L Alkaline Phosphatase 83 (39-117) U/L C-Reactive Protein 8.00 H (< or = 0.50) mg/dL Total Protein 6.2 L (6.5-8.0) g/dL Albumin 3.1 L (3.5-5.0) g/dL COVID-19 ([facility]) (Negative) COVID-19 Clin Com 09/13/21 09/13/21 09/13/21 Range/Units 22:32 22:32 22:32 WBC (4.8-10.8) X10*3/uL RBC (4.20-5.50) X10*6/uL Hgb (12.0-16.0) g/dl Hct (37.0-47.0) % MCV (80.0-98.0) fL MCH (27.0-33.0) pg MCHC (31.0-35.0) g/dl RDW (11.0-16.0) % Plt Count (160-400) X10*3/uL MPV (9.4-12.3) fL Immature Gran % (Auto) (0.0-0.4) % Neut % (Auto) (45-73) % Lymph % (Auto) (20-40) % Mercer % (Auto) (2-11) % Eos % (Auto) (0-4) % Baso % (Auto) (0-2) % Lymph # (Auto) (1.2-4.9) X10*3/uL Mercer # (Auto) (0.1-1.2) X10*3/uL Eos # (Auto) (0.0-0.4) X10*3/uL Baso # (Auto) (0.0-0.2) X10*3/uL Abs Immat Gran (auto) (0.00-0.03) X10*3/uL Absolute Neuts (auto) (2.0-8.3) x10*3/uL Absolute Nucleated RBC (0.0-0.012) X10*3/uL Nucleated RBC % (auto) (0.0-0.2) /100WBC ESR (0-20) MM/HR PT 28.4 H (10.0-13.1) SEC INR 2.4 H (0.9-1.1) Sodium (135-145) mmol/L Potassium (3.3-5.1) mmol/L Chloride (96-108) mmol/L Carbon Dioxide (22-29) mmol/L Anion Gap (12-20) BUN (9-16) mg/dL Creatinine (0.5-1.4) mg/dL Estim Creat Clear Calc Estimated GFR Random Glucose (60-115) mg/dL Lactic Acid 0.9 (0.5-2.0) mmol/L Calcium (8.4-10.2) mg/dL Total Bilirubin (0.0-1.0) mg/dL AST (5-31) U/L ALT (0-31) U/L Alkaline Phosphatase (39-117) U/L C-Reactive Protein (< or = 0.50) mg/dL Total Protein (6.5-8.0) g/dL Albumin (3.5-5.0) g/dL COVID-19 ([facility]) Negative (Negative) COVID-19 Clin Com See Note 09/13/21 Range/Units 22:33 WBC 10.7 (4.8-10.8) X10*3/uL RBC 3.72 L (4.20-5.50) X10*6/uL Hgb 10.7 L (12.0-16.0) g/dl Hct 34.2 L (37.0-47.0) % MCV 91.9 (80.0-98.0) fL MCH 28.8 (27.0-33.0) pg MCHC 31.3 (31.0-35.0) g/dl RDW 15.4 (11.0-16.0) % Plt Count 114 L (160-400) X10*3/uL MPV 10.7 (9.4-12.3) fL Immature Gran % (Auto) 1.2 H (0.0-0.4) % Neut % (Auto) 70.4 (45-73) % Lymph % (Auto) 16.6 L (20-40) % Mercer % (Auto) 9.6 (2-11) % Eos % (Auto) 2.1 (0-4) % Baso % (Auto) 0.1 (0-2) % Lymph # (Auto) 1.8 (1.2-4.9) X10*3/uL Mercer # (Auto) 1.0 (0.1-1.2) X10*3/uL Eos # (Auto) 0.2 (0.0-0.4) X10*3/uL Baso # (Auto) 0.0 (0.0-0.2) X10*3/uL Abs Immat Gran (auto) 0.13 H (0.00-0.03) X10*3/uL Absolute Neuts (auto) 7.5 (2.0-8.3) x10*3/uL Absolute Nucleated RBC 0.000 (0.0-0.012) X10*3/uL Nucleated RBC % (auto) 0.0 (0.0-0.2) /100WBC ESR (0-20) MM/HR PT (10.0-13.1) SEC INR (0.9-1.1) Sodium (135-145) mmol/L Potassium (3.3-5.1) mmol/L Chloride (96-108) mmol/L Carbon Dioxide (22-29) mmol/L Anion Gap (12-20) BUN (9-16) mg/dL Creatinine (0.5-1.4) mg/dL Estim Creat Clear Calc Estimated GFR Random Glucose (60-115) mg/dL Lactic Acid (0.5-2.0) mmol/L Calcium (8.4-10.2) mg/dL Total Bilirubin (0.0-1.0) mg/dL AST (5-31) U/L ALT (0-31) U/L Alkaline Phosphatase (39-117) U/L C-Reactive Protein (< or = 0.50) mg/dL Total Protein (6.5-8.0) g/dL Albumin (3.5-5.0) g/dL COVID-19 ([facility]) (Negative) COVID-19 Clin Com Discharge Plan Discharge Clinical Impression: Vasculitis, Cellulitis Patient Disposition: Home, Self-Care Instructions: Cellulitis (ED) Additional Instructions: Local care as advised You have a rash from vasculitis take antibiotics and prednisone as prescribed for surrounding infection Follow-up with your PCP if not better Prescriptions: New doxycycline hyclate 100 mg tablet 100 mg PO BID Qty: 20 0RF prednisone 10 mg tablets,dose pack 10 mg PO DAILY Qty: 35 0RF Rx Instructions: Take 2 tablets a day for 5 days then decrease to 1 tablet a day until finish No Action warfarin 2 mg tablet 2 mg PO DAILY 90 Days Qty: 90 0RF Rx Instructions: or as directed cholecalciferol (vitamin D3) 50 mcg (2,000 unit) capsule 50 mcg PO DAILY 90 Days Qty: 90 3RF furosemide 40 mg tablet 40 mg PO DAILY Qty: 90 3RF metoprolol tartrate 25 mg tablet 12.5 mg PO BID 90 Days Qty: 90 2RF simvastatin 20 mg tablet 20 mg PO DAILY 90 Days Qty: 90 2RF spironolactone 25 mg tablet 12.5 mg PO DAILY 90 Days Qty: 45 3RF Protocol: Hold for SBP< HOLD for SBP < : 90 trazodone 50 mg tablet 25 mg PO BEDTIME PRN (Reason: sleep) 90 Days Qty: 90 1RF potassium chloride 20 mEq tablet extended release 20 meq PO DAILY 90 Days Qty: 90 0RF aspirin 81 mg tablet,delayed release (DR/EC) 81 mg PO DAILY Qty: 90 3RF folic acid 1 mg tablet 1 mg PO DAILY 90 Days Qty: 90 3RF polyethylene glycol 3350 [Miralax] 17 gram/dose powder 17 g PO DAILY PRN (Reason: constipation) Qty: 119 0RF sennosides-docusate sodium [Senna with Docusate Sodium] 8.6-50 mg tablet 2 tab-cap PO DAILY PRN (Reason: constipation) 90 Days Qty: 180 0RF (DME) Hospital bed See Rx Instructions .Route .MEDSUPPLY Qty: 1 0RF Rx Instructions: As directed prednisone 20 mg Tablet 60 mg PO DAILY Qty: 7 0RF (DME) blood-glucose meter [OneTouch Ultra2 Meter] Kit See Rx Instructions .ROUTE .MEDSUPPLY Qty: 1 0RF Rx Instructions: As directed check the blood sugar once a day (DME) blood sugar diagnostic Strip See Rx Instructions .ROUTE .MEDSUPPLY Qty: 250 3RF Rx Instructions: Twice a day methotrexate sodium 2.5 mg tablet 25 mg PO QWEEK
[2021-09-13 21:44] VITALS: BP 128/84; BP 152/73; PULSE 59; PULSE 71; RESP 18; TEMP 36.7; O2SAT 100; O2SAT 95; BMI 33.9
--- NOTE | 2021-09-13 21:57 | PC.NURSE ---
patient came in had to use bed hartman ,voided large amount ,spinning doffer INTO HOSPITAL ATTIRE .
[2021-09-13 22:40] VITALS: BP 136/54; PULSE 64; RESP 16; TEMP 36.3; O2SAT 98
[2021-09-13 22:42] LABS: MANUAL DIFF FLAG NO
[2021-09-13 22:44] LABS: Basophils Percent Auto 0.1 % (0-2); Eosinophils Absolute Auto 0.2 X10*3/uL (0.0-0.4); Eosinophils Percent Auto 2.1 % (0-4); Hematocrit 34.2 % (37.0-47.0); Hemoglobin 10.7 g/dl (12.0-16.0); Imm Gran Abs Auto 0.13 X10*3/uL (0.00-0.03); Imm Gran Pct Auto 1.2 % (0.0-0.4); Lymphocytes Absolute Auto 1.8 X10*3/uL (1.2-4.9); Lymphocytes Percent Auto 16.6 % (20-40); Mean Corpuscular HGB Conc 31.3 g/dl (31.0-35.0); Mean Corpuscular Hemoglobin 28.8 pg (27.0-33.0); Mean Corpuscular Volume 91.9 fL (80.0-98.0); Mean Platelet Volume 10.7 fL (9.4-12.3); Monocytes Percent Auto 9.6 % (2-11); Neutrophils Absolute Auto 7.5 x10*3/uL (2.0-8.3); Neutrophils Percent Auto 70.4 % (45-73); Platelet Count 114 X10*3/uL (160-400); Red Blood Count 3.72 X10*6/uL (4.20-5.50); Red Cell Distribution Width 15.4 % (11.0-16.0); White Blood Count 10.7 X10*3/uL (4.8-10.8)
[2021-09-13 22:51] LABS: INTERNATIONAL NORM RATIO 2.4 (0.9-1.1); Prothrombin Time 28.4 SEC (10.0-13.1)
[2021-09-13 22:55] LABS: Lactic Acid 0.9 mmol/L (0.5-2.0)
[2021-09-13 22:57] LABS: COVID-19 Test Negative (Negative); IDNOW Serial# 16C4AD1C
[2021-09-13 23:01] LABS: Alanine Aminotransferase 16 U/L (0-31); Albumin Level 3.1 g/dL (3.5-5.0); Alkaline Phosphatase 83 U/L (39-117); Anion Gap 15 (12-20); Aspartate Amino Transferase 16 U/L (5-31); Bilirubin Total 1.2 mg/dL (0.0-1.0); Blood Urea Nitrogen 33 mg/dL (9-16); Calcium 8.4 mg/dL (8.4-10.2); Carbon Dioxide 28 mmol/L (22-29); Chloride 101 mmol/L (96-108); Creatinine Clr Calc Pharmacy 51.2; Estimated Glomerular Filt Rate > 60; Glucose Random 140 mg/dL (60-115); Potassium 3.8 mmol/L (3.3-5.1); Sodium 140 mmol/L (135-145); Total Protein 6.2 g/dL (6.5-8.0)
[2021-09-13 23:23] LABS: Erythrocyte Sedimentation Rate 44 MM/HR (0-20)
--- NOTE | 2021-09-13 23:52 | PC.NURSE ---
spoke jocelynn Diaz, will be coming from [facility] to p/u pt.
[2021-09-14] VITALS: BP 121/57; PULSE 72
--- NOTE | 2021-09-14 00:02 | PC.NURSE ---
vss, medicated per provider order.
[2021-09-14] MEDS: predniSONE 20 MG TABLET 40 MG PO (00:18)
== END 2021-09-14 01:39 | disposition home or self-care (01) ==
PROVIDERS: Emergency Provider Internal Medicine; PCP Internal Medicine
DX: L95.9 Vasculitis limited to the skin, unspecified (principal); L03.115 Cellulitis of right lower limb; M06.9 Rheumatoid arthritis, unspecified; M25.571 Pain in right ankle and joints of right foot; Z20.822 Contact with and (suspected) exposure to COVID-19; Z79.899 Other long term (current) drug therapy
CPT/HCPCS: 36415; 73610; 80053; 83605; 85025; 85610; 85652; 86140; 87040; 87635; 99283

== ENCOUNTER 2021-12-18 08:58 | Emergency (ER) | payer MEDICARE, OTHER, SELFPAY ==
[2021-12-18 09:07] VITALS: BP 150/80; PULSE 68; O2SAT 98
[2021-12-18 09:08] VITALS: BP 151/71; PULSE 80; RESP 12; TEMP 36.6; O2SAT 96
--- NOTE | 2021-12-18 09:08 | ED_ITS ---
HPI - Animal Bite General Chief Complaint: Allergic Reaction Stated Complaint: BEE STING R MIDDLE FINGER,NUMB @ SITE,NO SWELLING Time Seen by Provider: 12/18/21 09:00 Source: patient and old records reviewed Mode of arrival: EMS Limitations: no limitations History of Present Illness HPI narrative: 81 yo female with hx of DM, PAF, TAVR, CHF, HTN, HLD, anxiety on coumadin here with c/o yellow jacket stinging her R middle finger at the tip 30 min ago. Has had anxiety since. No other symptoms. EMS reports normal VS. patient feels very anxious MD complaint: other (yellow jacket bite) Onset (ago): minute(s) (30) Animal: other (yellow jacket) Description of animal: wild animal Mechanism: other (sting) Location: other (R middle finger tip) Pain description: dull Context: unprovoked Associated symptoms: none Related Data Home Medications Medication Instructions Recorded Confirmed methotrexate sodium 10 mg tablet 20 mg PO QWEEK 11/10/21 11/10/21 Previous Rx's Medication Instructions Recorded blood sugar diagnostic #250 ea 07/29/21 blood-glucose meter (OneTouch #1 ea 07/29/21 Ultra2 Meter kit) cholecalciferol (vitamin D3) 50 50 mcg PO DAILY 90 days #90 caps 08/12/21 mcg (2,000 unit) capsule furosemide 40 mg tablet 40 mg PO DAILY #90 tabs 08/12/21 metoprolol tartrate 25 mg tablet 12.5 mg PO BID 90 days #90 tabs 08/12/21 potassium chloride 20 mEq 20 meq PO DAILY 90 days #90 tabs 08/12/21 tablet,extended release simvastatin 20 mg tablet 20 mg PO DAILY 90 days #90 tabs 08/12/21 trazodone 50 mg tablet 25 mg PO BEDTIME PRN sleep 90 days 08/12/21 #90 tabs aspirin 81 mg tablet,delayed 81 mg PO DAILY #90 tabs 08/21/21 release folic acid 1 mg tablet 1 mg PO DAILY 90 days #90 tabs 08/21/21 polyethylene glycol 3350 17 17 g PO DAILY PRN constipation 08/21/21 gram/dose oral powder (Miralax) #119 grams sennosides 8.6 mg-docusate sodium 2 tab-cap PO DAILY PRN 08/21/21 50 mg tablet (Senna with Docusate constipation 90 days #180 tabs Sodium) Hospital bed #1 ea 09/16/21 warfarin 3 mg tablet 3 mg PO .QOD 90 days #45 tabs 11/20/21 warfarin 4 mg tablet 4 mg PO .QOD #45 tabs 11/20/21 nystatin 100,000 unit/gram topical 1 appl topical BID #30 grams 11/27/21 cream warfarin 1 mg tablet 3 mg PO DAILY #300 tabs 12/01/21 sertraline 25 mg tablet (Zoloft) 25 mg PO DAILY #30 tabs 12/08/21 Allergies Allergy/AdvReac Type Severity Reaction Status Date / Time shellfish derived Allergy Unknown itchy Verified 11/10/21 14:25 procaine [From Novocain] AdvReac Unknown makes Verified 11/10/21 14:25 patient itchy,puffy Review of Systems Review of Systems: Constitutional : No Fever, No Chills, Cardiovascular : No Chest Pain, No SOB Respiratory : No Dyspnea Gastrointestinal : No abdominal pain Musculoskeletal : No Joint Swelling Skin : No rash, positive skin puncture Neuro : No Weakness, No Numbness Psych : pos anxiety PMFSH Past Medical History Attestation statement: The following information was validated with the patient. Source: old records reviewed Medical History (HFpEF) heart failure with preserved ejection fraction Acute pyelonephritis Anxiety and depression Atrial fibrillation CHF exacerbation Chronic anticoagulation Congestive heart failure CVA (cerebral vascular accident) Hypercholesterolemia Hypertension Lumbar vertebral fracture Nonrheumatic aortic valve stenosis Obesity (BMI 30-39.9) Pancytopenia Persistent atrial fibrillation Pneumonia Pulmonary hypertension Rash Rheumatoid arthritis Sepsis TIA (transient ischemic attack) Type 2 diabetes mellitus with hyperglycemia Uterine cancer Surgical History History of appendectomy History of colonoscopy History of left knee replacement History of right knee joint replacement History of transcatheter aortic valve replacement (TAVR) (~06/19/21) S/P ANTONIO-BSO Family History Family History Father Diabetes CAD (coronary artery disease) Mother Diabetes Hypertension Perforated ulcer Sister Diabetes Social History Social History Household Members: Spouse Housing: House Do you presently have visiting nurse or other home services: No Alcohol intake: never Patient Tobacco Use Status: Never used Tobacco e-Cigarette/Vaping Use: Never Used Second Hand Smoke Exposure: No Advance Directives: Yes Advance Directives on File: Yes Advance Directives Date on File: 08/31/21 service: No Current occupational status: retired Cognitive needs: Yes (cane, walker) Hearing needs: No Vision needs: Yes (glasses) Physical Exam ED Vital Signs: Vital Signs - 24 hr 12/18/21 09:08 12/18/21 09:10 Temperature 97.8 F Pulse Rate 80 73 Respiratory Rate 12 18 Blood Pressure 151/71 H 151/71 H Pulse Oximetry 96 97 Oxygen Delivery Method Room Air Room Air BMI result Body Mass Index 34.9 Appearance: Alert. Oriented X3. No acute distress. Anxious Eyes: Pupils equal, round and reactive to light. ENT: Pharynx normal. no swelling Neck: Normal inspection. Neck supple. CVS: Normal heart rate and rhythm. Pulses normal. Respiratory: No respiratory distress. Breath sounds normal. no stridor Abdomen: Soft and nontender. Skin: Skin warm and dry. Normal skin color. Normal skin turgor. R middle tip of finger small red dot noted otherwise no swelling and normal appearance no hives Extremities: bilateral 1+ pitting lower extremity edema. Neuro: Oriented X 3. No motor deficit. No sensory deficit. Course Course Course Narrative: I believe nausea if from anxiety and not anaphylaxis observed 1 hour post sting no symptoms at site, stable for DC MDM - Animal Bite MDM Narrative Medical decision making narrative: 81 yo female with hx of DM, PAF, TAVR, CHF, HTN, HLD, anxiety on coumadin here with c/o yellow jacket stinging her R middle finger at this time - no signs of allergy or infection. Will observe feels anxiety and some nausea. Dispo per results and observation. Discharge Plan Discharge Clinical Impression: Yellow jacket sting Qualifiers: Encounter type: initial encounter Injury intent: accidental or unintentional Qu alified Code(s): T63.461A - Toxic effect of venom of wasps, accidental (unintentional), initial encounter Patient Disposition: Home, Self-Care Instructions: Insect Bite or Sting (ED) Additional Instructions: return to ED for any worsening symptoms or concerns monitor for increased redness, swelling, yellow drainage, fevers Prescriptions: No Action cholecalciferol (vitamin D3) 50 mcg (2,000 unit) capsule 50 mcg PO DAILY 90 Days Qty: 90 3RF furosemide 40 mg tablet 40 mg PO DAILY Qty: 90 3RF metoprolol tartrate 25 mg tablet 12.5 mg PO BID 90 Days Qty: 90 2RF simvastatin 20 mg tablet 20 mg PO DAILY 90 Days Qty: 90 2RF trazodone 50 mg tablet 25 mg PO BEDTIME PRN (Reason: sleep) 90 Days Qty: 90 1RF potassium chloride 20 mEq tablet extended release 20 meq PO DAILY 90 Days Qty: 90 0RF aspirin 81 mg tablet,delayed release (DR/EC) 81 mg PO DAILY Qty: 90 3RF folic acid 1 mg tablet 1 mg PO DAILY 90 Days Qty: 90 3RF polyethylene glycol 3350 [Miralax] 17 gram/dose powder 17 g PO DAILY PRN (Reason: constipation) Qty: 119 0RF sennosides-docusate sodium [Senna with Docusate Sodium] 8.6-50 mg tablet 2 tab-cap PO DAILY PRN (Reason: constipation) 90 Days Qty: 180 0RF (DME) Hospital bed See Rx Instructions .Route .MEDSUPPLY Qty: 1 0RF Rx Instructions: As directed warfarin 4 mg tablet 4 mg PO .QOD Qty: 45 3RF Rx Instructions: or as directed warfarin 3 mg tablet 3 mg PO .QOD 90 Days Qty: 45 1RF Rx Instructions: or as directed nystatin 100,000 unit/gram cream 1 appl topical BID Qty: 30 1RF warfarin 1 mg tablet 3 mg PO DAILY Qty: 300 1RF Rx Instructions: or as directed sertraline [Zoloft] 25 mg tablet 25 mg PO DAILY Qty: 30 2RF methotrexate sodium 10 mg tablet 20 mg PO QWEEK (DME) blood-glucose meter [[employer] Ultra2 Meter] Kit See Rx Instructions .ROUTE .MEDSUPPLY Qty: 1 0RF Rx Instructions: As directed check the blood sugar once a day ([facility] blood sugar diagnostic Strip See Rx Instructions .ROUTE .MEDSUPPLY Qty: 250 3RF Rx Instructions: Twice a day
[2021-12-18 09:10] VITALS: BP 151/71; PULSE 73; RESP 18; O2SAT 97; BMI 34.9
[2021-12-18] MEDS: Ondansetron ODT 4 MG TAB.RAPDIS TRANSLINGU (09:17)
--- NOTE | 2021-12-18 10:53 | MHC.CM.ED ---
Spoke with patient's daughter, Emily, about transportation home for patient. Patient's son, Brandin will transport patient home. Dr Jacque castañeda.
[2021-12-18 11:04] VITALS: BP 151/70; PULSE 81; RESP 14; TEMP 36.7; O2SAT 95
== END 2021-12-18 11:20 | disposition home or self-care (01) ==
PROVIDERS: Emergency Provider Emergency Medicine; PCP Internal Medicine
DX: M79.644 Pain in right finger(s) (principal); I10 Essential (primary) hypertension; F41.9 Anxiety disorder, unspecified; Z79.01 Long term (current) use of anticoagulants; Z79.899 Other long term (current) drug therapy
CPT/HCPCS: 99283

== ENCOUNTER 2021-12-28 09:20 | Emergency (ER) | payer MEDICARE, OTHER, SELFPAY ==
--- NOTE | ~2021-12-28 | XR_ITS ---
EXAMINATION: XR CHEST CLINICAL INFORMATION: Shortness of breath COMPARISON: Chest radiographs 04/06/2021, 01/08/2021; CT chest noncontrast 08/21/2021 TECHNIQUE: Portable upright AP x2 views of the chest are obtained. FINDINGS: There is mild cardiomegaly and prior TAVR graft seen. There is even distribution pulmonary vascularity which may suggest mild elevated pulmonary venous pressures. There are no curly lines and no lobar or segmental airspace consolidation or groundglass opacity. No effusion. The hilar and mediastinal contours and bony structures are similar to prior exams. XR/XR chest 1V IMPRESSION: 1. Mild cardiomegaly. Even distribution pulmonary vascularity which may suggest mild elevated pulmonary venous pressures. 2. No Dylon B lines, airspace consolidation, groundglass opacity, or effusion.
[2021-12-28 09:25] VITALS: BP 132/51; BP 180/97; PULSE 80; PULSE 83; RESP 16; TEMP 36.4; O2SAT 97; BMI 38.7
--- NOTE | 2021-12-28 10:15 | ECG_ITS ---
Test Reason : sob Blood Pressure : / mmHG Vent. Rate : 073 BPM Atrial Rate : 000 BPM P-R Int : 000 ms QRS Dur : 136 ms QT Int : 448 ms P-R-T Axes : 000 089 -21 degrees QTc Int : 493 ms Atrial fibrillation Right bundle branch block T wave abnormality, consider inferior ischemia Abnormal ECG When compared with ECG of 03-SEP-2021 02:38, No significant change was found Referred By: Joann Higgins Electronically Signed By:YVES BARRAZA MD
--- NOTE | 2021-12-28 10:30 | PC.NURSE ---
pt colt under breasts and groin area red and excoriated. md aware.
[2021-12-28 10:47] VITALS: BP 144/55; PULSE 80; RESP 22; TEMP 36.9; O2SAT 96
--- NOTE | 2021-12-28 10:52 | PC.NURSE ---
pt a/o x 4 no sob/melissa noted speaks in full sentences. lungs - cta. abd soft and n/t, bx + x 4 quads. pt aware of plan of care. c-collar applied by ems in place. heplock # 20 to r ac. pt states that she has l mastectomey, no b/p's.
--- NOTE | 2021-12-28 10:54 | PC.NURSE ---
pt is a/o x 4 no sob/melissa noted lungs -cta. speaks in full sentences. heart sounds - irregular. abd soft and non-tender. bs + x 4 quads. pt aware of plan of care. pt c/o 5/1o headache. md aware.
[2021-12-28 11:18] LABS: MANUAL DIFF FLAG NO
[2021-12-28 11:21] LABS: Basophils Percent Auto 0.6 % (0-2); Carbon Monoxide Refer to POC result; Eosinophils Absolute Auto 0.1 X10*3/uL (0.0-0.4); Eosinophils Percent Auto 1.3 % (0-4); Hematocrit 32.5 % (37.0-47.0); Hemoglobin 9.8 g/dl (12.0-16.0); Imm Gran Abs Auto 0.02 X10*3/uL (0.00-0.03); Imm Gran Pct Auto 0.3 % (0.0-0.4); Lymphocytes Absolute Auto 0.7 X10*3/uL (1.2-4.9); Lymphocytes Percent Auto 11.9 % (20-40); Mean Corpuscular HGB Conc 30.2 g/dl (31.0-35.0); Mean Corpuscular Hemoglobin 28.9 pg (27.0-33.0); Mean Corpuscular Volume 95.9 fL (80.0-98.0); Mean Platelet Volume 10.2 fL (9.4-12.3); Monocytes Absolute Auto 0.7 X10*3/uL (0.1-1.2); Monocytes Percent Auto 11.2 % (2-11); Neutrophils Absolute Auto 4.7 x10*3/uL (2.0-8.3); Neutrophils Percent Auto 74.7 % (45-73); Platelet Count 194 X10*3/uL (160-400); Red Blood Count 3.39 X10*6/uL (4.20-5.50); Red Cell Distribution Width 14.4 % (11.0-16.0); White Blood Count 6.2 X10*3/uL (4.8-10.8)
--- NOTE | 2021-12-28 11:31 | ED_ITS ---
HPI - SOB/Dyspnea General Chief Complaint: Dyspnea Stated Complaint: SOB 95% RA Time Seen by Provider: 12/28/21 09:25 History of Present Illness HPI Narrative: Patient is an 81-year-old female with a history of congestive heart failure. History of pulmonary hypertension. Patient presents today as there is no heat inside her house he feels cold. She feels slightly short of breath. Patient denies any diaphoresis. No fever no chills. No cough no congestion or upper respiratory symptoms. No diaphoresis. Baseline not on oxygen. Patient is on anticoagulation. Patient uses a pellet stove at home. Now have some diffuse body ache and some headache along with the shortness of breath. Related Data Home Medications Medication Instructions Recorded Confirmed methotrexate sodium 10 mg tablet 20 mg PO QWEEK 11/10/21 11/10/21 Previous Rx's Medication Instructions Recorded blood sugar diagnostic #250 ea 07/29/21 blood-glucose meter (OneTouch #1 ea 07/29/21 Ultra2 Meter kit) cholecalciferol (vitamin D3) 50 50 mcg PO DAILY 90 days #90 caps 08/12/21 mcg (2,000 unit) capsule furosemide 40 mg tablet 40 mg PO DAILY #90 tabs 08/12/21 metoprolol tartrate 25 mg tablet 12.5 mg PO BID 90 days #90 tabs 08/12/21 potassium chloride 20 mEq 20 meq PO DAILY 90 days #90 tabs 08/12/21 tablet,extended release simvastatin 20 mg tablet 20 mg PO DAILY 90 days #90 tabs 08/12/21 trazodone 50 mg tablet 25 mg PO BEDTIME PRN sleep 90 days 08/12/21 #90 tabs aspirin 81 mg tablet,delayed 81 mg PO DAILY #90 tabs 08/21/21 release folic acid 1 mg tablet 1 mg PO DAILY 90 days #90 tabs 08/21/21 polyethylene glycol 3350 17 17 g PO DAILY PRN constipation 08/21/21 gram/dose oral powder (Miralax) #119 grams sennosides 8.6 mg-docusate sodium 2 tab-cap PO DAILY PRN 08/21/21 50 mg tablet (Senna with Docusate constipation 90 days #180 tabs Sodium) Hospital bed #1 ea 09/16/21 warfarin 3 mg tablet 3 mg PO .QOD 90 days #45 tabs 10/07/22 warfarin 4 mg tablet 4 mg PO .QOD #45 tabs 11/20/21 warfarin 1 mg tablet 3 mg PO DAILY #300 tabs 12/01/21 sertraline 25 mg tablet (Zoloft) 25 mg PO DAILY #30 tabs 12/08/21 nystatin 100,000 unit/gram topical 1 appl topical BID #30 grams 12/24/21 cream nystatin 100,000 unit/gram topical 1 appl topical TID #5 tubes 12/24/21 ointment Allergies Allergy/AdvReac Type Severity Reaction Status Date / Time shellfish derived Allergy Unknown itchy Verified 11/10/21 14:25 procaine [From Novocain] AdvReac Unknown makes Verified 11/10/21 14:25 patient itchy,puffy Review of Systems Review of Systems: Positive generalized malaise weakness Yes all other systems are reviewed and are negative [facility] Past Medical History Medical History (HFpEF) heart failure with preserved ejection fraction Acute pyelonephritis Anxiety and depression Atrial fibrillation CHF exacerbation Chronic anticoagulation Congestive heart failure CVA (cerebral vascular accident) Hypercholesterolemia Hypertension Lumbar vertebral fracture Nonrheumatic aortic valve stenosis Obesity (BMI 30-39.9) Pancytopenia Persistent atrial fibrillation Pneumonia Pulmonary hypertension Rash Rheumatoid arthritis Sepsis TIA (transient ischemic attack) Type 2 diabetes mellitus with hyperglycemia Uterine cancer Surgical History History of appendectomy History of colonoscopy History of left knee replacement History of right knee joint replacement History of transcatheter aortic valve replacement (TAVR) (~06/19/21) S/P ANTONIO-BSO Family History Family History Father Diabetes CAD (coronary artery disease) Mother Diabetes Hypertension Perforated ulcer Sister Diabetes Social History Social History Household Members: Spouse Housing: House Do you presently have visiting nurse or other home services: No Alcohol intake: never Patient Tobacco Use Status: Never used Tobacco Smoked in Last 30 Days: No e-Cigarette/Vaping Use: Never Used Second Hand Smoke Exposure: No Use of substances other than those prescribed or required for medical reasons: No Advance Directives: Yes Advance Directives on File: Yes Advance Directives Date on File: 08/31/21 service: No Current occupational status: retired Cognitive needs: Yes (cane, walker) Hearing needs: No Vision needs: Yes (glasses) Physical Exam Vital Signs: Vital Signs: Last Vital Signs Temp 98.5 F 12/28/21 10:47 Pulse 67 12/28/21 14:35 Resp 20 12/28/21 14:35 BP 136/55 L 12/28/21 12:57 Pulse Ox 94 12/28/21 14:35 O2 Del Method 12/28/21 14:35 BMI result Body Mass Index 38.7 Appearance: Alert. Oriented X3. No acute distress. Eyes: Pupils equal, round and reactive to light. ENT: Pharynx normal. Neck: Normal inspection. Neck supple. No lymph nodes noted. No crepitus CVS: Normal heart rate and rhythm. Pulses normal. Normal S1 and S2 Respiratory: No respiratory distress. Breath sounds normal. No Wheezing. No rales Abdomen: Soft and nontender. No rigidity. No distention. good BS x4 Skin: Skin warm and dry. Normal skin color. Normal skin turgor. Extremities: No lower extremity edema. Neurovascular intact to all extremities. No Lacerations. No Rash Neuro: Oriented X 3. No motor deficit. No sensory deficit. Moving all extermities. No slurred speech Medications Administered Discontinued Medications Generic Name Dose Route Start Last Admin Trade Name Everetteq PRN Reason Stop Dose Admin Acetaminophen 975 mg 12/28/21 12:50 12/28/21 12:54 Acetaminophen 325 Mg Tablet PO 12/28/21 12:51 975 mg ONCE ONE Administration MDM - SOB/Dyspnea MDM Narrative Medical decision making narrative: Patient afebrile here in the emergency department. EKG showed an atrial fibrillation pattern heart rate is 70 there is a right bundle-branch block. There is no acute ST segment elevation. Patient's carbon monoxide level was 3%. No evidence for carbon monoxide poisoning. X-ray consistent with congestive heart failure but is not changed from prior. Patient's O2 sats 95% on room air. Patient's hemoglobin is 9.8 which is baseline. Patient's kidney function is normal. Well-appearing. Patient refused ambulate. On daughter's arrival patient claims she can not walk with no distress now wants to leave. Patient's case discussed with case management. Will optimize care for patient. Attempted to ambulate patient with physical therapy but patient refused. She is in stable condition with discharge home. Differential Diagnosis Differential diagnosis: Likely acute exacerbation of chronic obstructive airways disease Medical Records Attestation: I reviewed the patient's medical records. Lab Data Attestation: I reviewed the patient's lab results. Result diagrams: 12/28/21 11:11 12/28/21 11:11 Labs: Lab Results 12/28/21 12/28/21 12/28/21 Range/Units 11:03 11:11 11:11 WBC 6.2 (4.8-10.8) X10*3/uL RBC 3.39 L (4.20-5.50) X10*6/uL Hgb 9.8 L (12.0-16.0) g/dl Hct 32.5 L (37.0-47.0) % MCV 95.9 (80.0-98.0) fL MCH 28.9 (27.0-33.0) pg MCHC 30.2 L (31.0-35.0) g/dl RDW 14.4 (11.0-16.0) % Plt Count 194 (160-400) X10*3/uL MPV 10.2 (9.4-12.3) fL Immature Gran % (Auto) 0.3 (0.0-0.4) % Neut % (Auto) 74.7 H (45-73) % Lymph % (Auto) 11.9 L (20-40) % [place] % (Auto) 11.2 H (2-11) % Eos % (Auto) 1.3 (0-4) % Baso % (Auto) 0.6 (0-2) % Lymph # (Auto) 0.7 L (1.2-4.9) X10*3/uL [place] # (Auto) 0.7 (0.1-1.2) X10*3/uL Eos # (Auto) 0.1 (0.0-0.4) X10*3/uL Baso # (Auto) 0.0 (0.0-0.2) X10*3/uL Abs Immat Gran (auto) 0.02 (0.00-0.03) X10*3/uL Absolute Neuts (auto) 4.7 (2.0-8.3) x10*3/uL Absolute Nucleated RBC 0.000 (0.0-0.012) X10*3/uL Nucleated RBC % (auto) 0.0 (0.0-0.2) /100WBC PT (10.0-13.1) SEC INR (0.9-1.1) Carboxyhemoglobin % % Sodium 142 (135-145) mmol/L Potassium 4.8 (3.3-5.1) mmol/L Chloride 104 (96-108) mmol/L Carbon Dioxide 26 (22-29) mmol/L Anion Gap 17 (12-20) BUN 17 H (9-16) mg/dL Creatinine 0.73 (0.5-1.4) mg/dL Estim Creat Clear Calc 58.0 Estimated GFR > 60 POC Glucose (60-115) mg/dL Random Glucose 120 H (60-115) mg/dL Calcium 9.3 D (8.4-10.2) mg/dL Troponin I High Sens (<3.5-17.0) ng/L B-Natriuretic Peptide (<100) pg/mL Influenza Type A (PCR) NEGATIVE (Negative) Influenza Type B (PCR) NEGATIVE (Negative) RSV RNA Qual (PCR) NEGATIVE (Negative) SARS-CoV-2 RNA (RT-PCR) NEGATIVE (Negative) 12/28/21 12/28/21 12/28/21 Range/Units 11:11 11:11 11:16 WBC (4.8-10.8) X10*3/uL RBC (4.20-5.50) X10*6/uL Hgb (12.0-16.0) g/dl Hct (37.0-47.0) % MCV (80.0-98.0) fL MCH (27.0-33.0) pg MCHC (31.0-35.0) g/dl RDW (11.0-16.0) % Plt Count (160-400) X10*3/uL MPV (9.4-12.3) fL Immature Gran % (Auto) (0.0-0.4) % Neut % (Auto) (45-73) % Lymph % (Auto) (20-40) % [place] % (Auto) (2-11) % Eos % (Auto) (0-4) % Baso % (Auto) (0-2) % Lymph # (Auto) (1.2-4.9) X10*3/uL [place] # (Auto) (0.1-1.2) X10*3/uL Eos # (Auto) (0.0-0.4) X10*3/uL Baso # (Auto) (0.0-0.2) X10*3/uL Abs Immat Gran (auto) (0.00-0.03) X10*3/uL Absolute Neuts (auto) (2.0-8.3) x10*3/uL Absolute Nucleated RBC (0.0-0.012) X10*3/uL Nucleated RBC % (auto) (0.0-0.2) /100WBC PT (10.0-13.1) SEC INR (0.9-1.1) Carboxyhemoglobin % 3.0 % Sodium (135-145) mmol/L Potassium (3.3-5.1) mmol/L Chloride (96-108) mmol/L Carbon Dioxide (22-29) mmol/L Anion Gap (12-20) BUN (9-16) mg/dL Creatinine (0.5-1.4) mg/dL Estim Creat Clear Calc Estimated GFR POC Glucose (60-115) mg/dL Random Glucose (60-115) mg/dL Calcium (8.4-10.2) mg/dL Troponin I High Sens 11.3 (<3.5-17.0) ng/L B-Natriuretic Peptide 410 H (<100) pg/mL Influenza Type A (PCR) (Negative) Influenza Type B (PCR) (Negative) RSV RNA Qual (PCR) (Negative) SARS-CoV-2 RNA (RT-PCR) (Negative) 12/28/21 12/28/21 Range/Units 12:52 14:23 WBC (4.8-10.8) X10*3/uL RBC (4.20-5.50) X10*6/uL Hgb (12.0-16.0) g/dl Hct (37.0-47.0) % MCV (80.0-98.0) fL MCH (27.0-33.0) pg MCHC (31.0-35.0) g/dl RDW (11.0-16.0) % Plt Count (160-400) X10*3/uL MPV (9.4-12.3) fL Immature Gran % (Auto) (0.0-0.4) % Neut % (Auto) (45-73) % Lymph % (Auto) (20-40) % [place] % (Auto) (2-11) % Eos % (Auto) (0-4) % Baso % (Auto) (0-2) % Lymph # (Auto) (1.2-4.9) X10*3/uL [place] # (Auto) (0.1-1.2) X10*3/uL Eos # (Auto) (0.0-0.4) X10*3/uL Baso # (Auto) (0.0-0.2) X10*3/uL Abs Immat Gran (auto) (0.00-0.03) X10*3/uL Absolute Neuts (auto) (2.0-8.3) x10*3/uL Absolute Nucleated RBC (0.0-0.012) X10*3/uL Nucleated RBC % (auto) (0.0-0.2) /100WBC PT 49.7 H (10.0-13.1) SEC INR 4.1 H D (0.9-1.1) Carboxyhemoglobin % % Sodium (135-145) mmol/L Potassium (3.3-5.1) mmol/L Chloride (96-108) mmol/L Carbon Dioxide (22-29) mmol/L Anion Gap (12-20) BUN (9-16) mg/dL Creatinine (0.5-1.4) mg/dL Estim Creat Clear Calc Estimated GFR POC Glucose 113 (60-115) mg/dL Random Glucose (60-115) mg/dL Calcium (8.4-10.2) mg/dL Troponin I High Sens (<3.5-17.0) ng/L B-Natriuretic Peptide (<100) pg/mL Influenza Type A (PCR) (Negative) Influenza Type B (PCR) (Negative) RSV RNA Qual (PCR) (Negative) SARS-CoV-2 RNA (RT-PCR) (Negative) Discharge Plan Discharge Clinical Impression: Weakness Patient Disposition: Home, Self-Care Instructions: Weakness (ED) Prescriptions: No Action cholecalciferol (vitamin D3) 50 mcg (2,000 unit) capsule 50 mcg PO DAILY 90 Days Qty: 90 3RF furosemide 40 mg tablet 40 mg PO DAILY Qty: 90 3RF metoprolol tartrate 25 mg tablet 12.5 mg PO BID 90 Days Qty: 90 2RF simvastatin 20 mg tablet 20 mg PO DAILY 90 Days Qty: 90 2RF trazodone 50 mg tablet 25 mg PO BEDTIME PRN (Reason: sleep) 90 Days Qty: 90 1RF potassium chloride 20 mEq tablet extended release 20 meq PO DAILY 90 Days Qty: 90 0RF aspirin 81 mg tablet,delayed release (DR/EC) 81 mg PO DAILY Qty: 90 3RF folic acid 1 mg tablet 1 mg PO DAILY 90 Days Qty: 90 3RF polyethylene glycol 3350 [Miralax] 17 gram/dose powder 17 g PO DAILY PRN (Reason: constipation) Qty: 119 0RF sennosides-docusate sodium [Senna with Docusate Sodium] 8.6-50 mg tablet 2 tab-cap PO DAILY PRN (Reason: constipation) 90 Days Qty: 180 0RF (DME) Hospital bed See Rx Instructions .Route .MEDSUPPLY Qty: 1 0RF Rx Instructions: As directed warfarin 4 mg tablet 4 mg PO .QOD Qty: 45 3RF Rx Instructions: or as directed warfarin 3 mg tablet 3 mg PO .QOD 90 Days Qty: 45 1RF Rx Instructions: or as directed warfarin 1 mg tablet 3 mg PO DAILY Qty: 300 1RF Rx Instructions: or as directed sertraline [Zoloft] 25 mg tablet 25 mg PO DAILY Qty: 30 2RF nystatin 100,000 unit/gram ointment 1 appl topical TID Qty: 5 1RF nystatin 100,000 unit/gram cream 1 appl topical BID Qty: 30 1RF methotrexate sodium 10 mg tablet 20 mg PO QWEEK (DME) blood-glucose meter [OneTouch Ultra2 Meter] Kit See Rx Instructions .ROUTE .MEDSUPPLY Qty: 1 0RF Rx Instructions: As directed check the blood sugar once a day (DME) blood sugar diagnostic Strip See Rx Instructions .ROUTE .MEDSUPPLY Qty: 250 3RF Rx Instructions: Twice a day Referrals: Po,Lorenver O, MD [Primary Care Provider] -
[2021-12-28 11:50] LABS: Anion Gap 17 (12-20); Blood Urea Nitrogen 17 mg/dL (9-16); Calcium 9.3 mg/dL (8.4-10.2); Carbon Dioxide 26 mmol/L (22-29); Chloride 104 mmol/L (96-108); Estimated Glomerular Filt Rate > 60; Glucose Random 120 mg/dL (60-115); Potassium 4.8 mmol/L (3.3-5.1); Sodium 142 mmol/L (135-145)
[2021-12-28 11:52] LABS: B Type Natriuretic Peptide 410 pg/mL (<100); Troponin-I High Sensitivity 11.3 ng/L (<3.5-17.0)
[2021-12-28 12:06] LABS: Influenza A PCR NEGATIVE (Negative); Influenza B PCR NEGATIVE (Negative); Resp Syncy Virus RNA Qual PCR NEGATIVE (Negative); SARS COV2 PCR INHOUSE NEGATIVE (Negative)
[2021-12-28] MEDS: Acetaminophen 325 MG TABLET 975 MG PO (12:54)
[2021-12-28 12:56] LABS: Glucose, Whole Blood 113 mg/dL (60-115)
[2021-12-28 12:57] VITALS: BP 136/55; PULSE 74; RESP 14; O2SAT 96
--- NOTE | 2021-12-28 12:58 | PC.NURSE ---
Pt resting in bed, states she feels like her sugar is low. Leta, PCT checked POC, was 133. This RN explained to the pt that this is an acceptable POC. Pt states no, it is not a great sugar, I'm starving and I'm low. . Pt was provided with diet kaylie starr, saltines and applesuace.
--- NOTE | 2021-12-28 14:15 | MHC.CM.ED ---
Received case management consult from Dr Higgins. Patient came to the ER due to weakness. Patient told Dr Higgins she doesn't have heat in the home. Work up essentially negative. T/W spoke with patient's step-daughter, Emily, via telephone at [phone]. Patient lives with her and is active with [facility]. Patient has heat in the home. Patient will refuse to go to [facility] if offered. Emily will be in the ER around 3pm. T/W will meet with patient and Emily at that time to verify discharge plan, but anticipate patient will return home with and resumption of [facility]. Alyssa CARTY and Dr Higgins aware. Continue to monitor for d/c needs.
[2021-12-28 14:35] VITALS: PULSE 67; RESP 20; O2SAT 94
[2021-12-28 14:38] LABS: INTERNATIONAL NORM RATIO 4.1 (0.9-1.1); Prothrombin Time 49.7 SEC (10.0-13.1)
--- NOTE | 2021-12-28 15:41 | MHC.CM.ED ---
Patient's step daughter, Emily, bedside. Met with patient and Emily. Patient feels she can safely go home with resumption of services. Patient feels she will be able to ambulate. Patient, Alyssa Diaz RN and Dr Higgins aware. Continue to monitor for d/c needs.
== END 2021-12-28 16:06 | disposition home or self-care (01) ==
PROVIDERS: Emergency Provider Emergency Medicine Emergency Medical Services; PCP Internal Medicine
DX: R53.1 Weakness (principal); R06.02 Shortness of breath; Z20.822 Contact with and (suspected) exposure to COVID-19; I11.0 Hypertensive heart disease with heart failure; I50.30 Unspecified diastolic (congestive) heart failure; E11.9 Type 2 diabetes mellitus without complications; E78.00 Pure hypercholesterolemia, unspecified; I48.19 Other persistent atrial fibrillation; E66.9 Obesity, unspecified; Z68.38 Body mass index [BMI] 38.0-38.9, adult; Z95.2 Presence of prosthetic heart valve; Z79.01 Long term (current) use of anticoagulants; Z79.02 Long term (current) use of antithrombotics/antiplatelets; Z79.82 Long term (current) use of aspirin; Z79.899 Other long term (current) drug therapy
CPT/HCPCS: 0241U; 36415; 71045; 80048; 82375; 82947; 83880; 84484; 85025; 85610; 93005; 97162; 99284; 99285

== ENCOUNTER 2022-01-11 11:23 | Emergency (ER) | payer MEDICARE, OTHER, SELFPAY ==
--- NOTE | ~2022-01-11 | US_ITS ---
EXAMINATION: US VENOUS ULTRASOUND WITH DOPPLER LOWER EXTREMITY, LEFT CLINICAL INFORMATION: Left lower extremity swelling. COMPARISON: None TECHNIQUE: Ultrasound of the deep veins is performed from the hip to the calf with compression sonography and color and pulse Doppler assessment. Spectral analysis with color-flow imaging is performed. FINDINGS: There is normal venous compression and respiratory variation and augmented flow. The visualized common femoral vein, superficial femoral vein, profunda femoral vein, popliteal vein, and the trifurcation region shows no evidence of deep venous thrombosis. No left popliteal cyst. Mild to moderate subcutaneous edema in the left calf. US/US venous duplex LE LT IMPRESSION: No evidence for deep venous thrombosis in the visualized veins of the left lower extremity. Mild to moderate subcutaneous edema in the left calf.
--- NOTE | ~2022-01-11 | XR_ITS ---
EXAMINATION: XR CHEST CLINICAL INFORMATION: Chest pain COMPARISON: Previous chest x-ray most recent December 2013 TECHNIQUE: Frontal view of the chest was obtained. FINDINGS: The cardiac silhouette is enlarged but stable. There is an aortic valve stent graft. There is pulmonary venous redistribution. The lungs are otherwise clear. No pleural effusion or pneumothorax. Degenerative changes of the spine and shoulders. XR/XR chest 1V IMPRESSION: Enlarged cardiac silhouette and pulmonary venous redistribution.
[2022-01-11 11:50] VITALS: BMI 31.7
[2022-01-11 11:56] VITALS: BP 167/56; PULSE 77; RESP 19; TEMP 36.5; O2SAT 97
--- NOTE | 2022-01-11 12:14 | ED_ITS ---
HPI - Chest Pain General Chief Complaint: Chest Pain Stated Complaint: CP X'S 20 MIN PER EMS Time Seen by Provider: 01/11/22 11:59 Source: patient Mode of arrival: ambulatory Limitations: no limitations History of Present Illness HPI narrative: 81 yo female w/ PMHx significant for CAD s/p stent placement 6 mos ago, DM, HTN, hyperlipidemia, CHF, and a-fib on Coumadin presents to the ED c/o sudden onset substernal chest tgightness x1 hr. Describes pain as heaviness w/ radiation to the right shoulder. Patient was given ASA and sublingual nitroglycerin by EMS, now reports symptomatic improvement. She endorses associated SOB, worse w/ laying flat and on exertion, and worsening pedal edema. Denies fever, headache, dizziness, abd pain, n/v/d, or urinary symptoms. Reports that she has been taking daily medications as prescribed. Reports PO food and water intake per her normal baseline. MD complaint: chest heaviness Pertinent past history: coronary artery disease Onset (ago): hour(s) (1) Timing of current episode: constant (improving) Prior episodes: Yes Onset: during rest Pain location: substernal Pain radiation: right arm Severity: mild Pain scale (0-10): 3 Quality: heaviness Relieving factors: other (aspirin) Exacerbating factors: nothing Associated symptoms: nausea and dyspnea Treatment prior to arrival: aspirin and nitroglycerin Risk Factors Coronary artery disease risk factors: diabetes, hyperlipidemia and hypertension Related Data Home Medications Medication Instructions Recorded Confirmed methotrexate sodium 10 mg tablet 20 mg PO QWEEK 11/10/21 11/10/21 Previous Rx's Medication Instructions Recorded blood sugar diagnostic #250 ea 07/29/21 blood-glucose meter (OneTouch #1 ea 07/29/21 Ultra2 Meter kit) cholecalciferol (vitamin D3) 50 50 mcg PO DAILY 90 days #90 caps 08/12/21 mcg (2,000 unit) capsule potassium chloride 20 mEq 20 meq PO DAILY 90 days #90 tabs 08/12/21 tablet,extended release simvastatin 20 mg tablet 20 mg PO DAILY 90 days #90 tabs 08/12/21 trazodone 50 mg tablet 25 mg PO BEDTIME PRN sleep 90 days 08/12/21 #90 tabs aspirin 81 mg tablet,delayed 81 mg PO DAILY #90 tabs 08/21/21 release folic acid 1 mg tablet 1 mg PO DAILY 90 days #90 tabs 08/21/21 polyethylene glycol 3350 17 17 g PO DAILY PRN constipation 08/21/21 gram/dose oral powder (Miralax) #119 grams sennosides 8.6 mg-docusate sodium 2 tab-cap PO DAILY PRN 08/21/21 50 mg tablet (Senna with Docusate constipation 90 days #180 tabs Sodium) Hospital bed #1 ea 09/16/21 warfarin 3 mg tablet 3 mg PO .QOD 90 days #45 tabs 11/20/21 warfarin 4 mg tablet 4 mg PO .QOD #45 tabs 11/20/21 warfarin 1 mg tablet 3 mg PO DAILY #300 tabs 12/01/21 sertraline 25 mg tablet (Zoloft) 25 mg PO DAILY #30 tabs 12/08/21 nystatin 100,000 unit/gram topical 1 appl topical BID #30 grams 12/24/21 cream nystatin 100,000 unit/gram topical 1 appl topical TID #5 tubes 12/24/21 ointment furosemide 40 mg tablet 40 mg PO DAILY #90 tabs 12/31/21 metoprolol tartrate 25 mg tablet 12.5 mg PO BID 90 days #90 tabs 12/31/21 Allergies Allergy/AdvReac Type Severity Reaction Status Date / Time shellfish derived Allergy Unknown itchy Verified 11/10/21 14:25 procaine [From Novocain] AdvReac Unknown makes Verified 11/10/21 14:25 patient itchy,puffy Review of Systems Review of Systems: Constitutional: No Fever, No Chills, No Night Sweats, No Fatigue, No Malaise ENT/Mouth: No Ear Pain, No Nasal Congestion Eyes: No Eye Pain, No Swelling, No Redness, No Vision Changes Cardiovascular: + Chest Pain, + SOB, + Dyspnea on Exertion, + Orthopnea, + Edema, No Palpitations Respiratory: No Cough, No Sputum, No Wheezing Gastrointestinal: No Nausea, No Vomiting, No Diarrhea, No Constipation, No Abdominal pain Genitourinary: No irregular bleeding, No Dysuria, No Urinary Frequency, No Hematuria Musculoskeletal: + joint and muscle pain per baseline Skin: No Skin Lesions, No rash Neuro: No Weakness, No Numbness, No Dizziness, No Headache Yes all other systems are reviewed and are negative Constitutional: Constitutional: Reports as per HPI PMFSH Past Medical History Attestation statement: The following information was validated with the patient. Medical History (HFpEF) heart failure with preserved ejection fraction Acute pyelonephritis Anxiety and depression Atrial fibrillation CHF exacerbation Chronic anticoagulation Congestive heart failure CVA (cerebral vascular accident) Hypercholesterolemia Hypertension Lumbar vertebral fracture Nonrheumatic aortic valve stenosis Obesity (BMI 30-39.9) Pancytopenia Persistent atrial fibrillation Pneumonia Pulmonary hypertension Rash Rheumatoid arthritis Sepsis TIA (transient ischemic attack) Type 2 diabetes mellitus with hyperglycemia Uterine cancer Surgical History History of appendectomy History of colonoscopy History of left knee replacement History of right knee joint replacement History of transcatheter aortic valve replacement (TAVR) (~06/19/21) S/P ANTONIO-BSO Family History Family History Father Diabetes CAD (coronary artery disease) Mother Diabetes Hypertension Perforated ulcer Sister Diabetes Social History Social History Household Members: Spouse Housing: House Do you presently have visiting nurse or other home services: No Alcohol intake: never Patient Tobacco Use Status: Never used Tobacco e-Cigarette/Vaping Use: Never Used Second Hand Smoke Exposure: No Advance Directives: Yes Advance Directives on File: Yes Advance Directives Date on File: 08/31/21 service: No Current occupational status: retired Cognitive needs: Yes (cane, walker) Hearing needs: No Vision needs: Yes (glasses) Physical Exam Vital Signs: Vital Signs: Last Vital Signs Temp 97.8 F 01/11/22 14:35 Pulse 72 01/11/22 14:35 Resp 25 H 01/11/22 14:35 BP 158/62 H 01/11/22 14:35 Pulse Ox 95 01/11/22 14:35 O2 Del Method 01/11/22 14:35 BMI result Body Mass Index 31.7 Const: General: cooperative and no acute distress Orientation/consciou sness: patient oriented x3 Limitations: no limitations HEENT: Head: Yes normal to inspection Ears: hearing grossly normal bilaterally General nose exam: Normal external nose present Face and sinus: Yes normal facial exam Throat: Yes posterior oropharynx normal Eyes: General: appearance normal, both eyes and all related structures EOM: EOMs intact bilaterally Neck: Neck: Yes normal visual inspection, Yes trachea midline and Yes no JVD Chest: Chest palpation & inspection: normal inspection of the chest Resp: Effort & Inspection: able to speak in complete sentences, no audible wheezes and no cough Auscultation: no crackles, no rales, no wheezes and diminished lung sounds (mildly diminished bibasilarly) Cardio: Jugular venous distension: no JVD Rate: regular rate Rhythm: regular rhythm Heart sounds: S1 normal heart sound present and S2 normal heart sound present Peripheral pulses: Peripheral pulses 2+ throughout GI: Inspection: Yes normal to inspection Palpation (GI): Soft to palpation, not firm, nontender, no guarding and not rigid : General: Yes no CVA tenderness Back/Spine/Pelvis: Back: no CVA tenderness Skin: General skin exam: no rashes or lesions noted Rashes: no rashes Wounds: no wounds Neuro: General: patient oriented x3, tone normal and moves all extremities Extrem: Other: LE pedal edema mildly > LLE Right upper extremity: normal to inspection Left upper extremity: normal to inspection Right lower extremity: edema (lower leg/ankle) Details: pitting and 2+ Left lower extremity: edema (lower leg/ankle with mild erythema and warmth) Details: pitting and 2+ Course Course Course Narrative: -1443--mild leukopenia at 4.7. H&H at patient's baseline. INR therapeutic. Troponin 11.5 (elevated priors) > will obtain 3 hour repeat. -BNP chronically elevated XR chest 1V IMPRESSION: Enlarged cardiac silhouette and pulmonary venous redistribution. > appears to be patient's baseline > will give additional 40 mg dose of IV Lasix while in the ED -1638--repeat troponin without rise, mi unlikely US venous duplex LE LT IMPRESSION: No evidence for deep venous thrombosis in the visualized veins of the left lower extremity. ? Mild to moderate subcutaneous edema in the left calf. >> will discharge patient with Keflex for early suspected cellulitis to left lower extremity. will ambulate patient with pulse ox > patient maintain saturations of 96-97% on RA with exertion. Patient would like to be discharged home. Results discussed with patient including worrisome signs and symptoms and strict return precautions, and when to return to the em ergency department. They verbalized understanding and feel safe for discharge at this time. Medications Administered Discontinued Medications Generic Name Dose Route Start Last Admin Trade Name Nelson PRN Reason Stop Dose Admin Furosemide 40 mg 01/11/22 14:46 01/11/22 15:07 Furosemide 40 Mg/4 Ml Vial IVPUSH 01/11/22 14:47 40 mg ONCE ONE Administration Protocol MDM - Chest Pain MDM Narrative Medical decision making narrative: 81 yo female w/ PMHx significant for CAD s/p stent placement 6 mos ago, DM, HTN, hyperlipidemia, CHF, and a-fib on Coumadin presents to the ED c/o sudden onset substernal chest tgightness x1 hr. On exam vital signs stable, reports symptomatic improvement, lungs with diminished breath sounds bibasilar, abdomen soft/nontender, bilateral pitting edema noted slightly greater on the left with mild erythema and warmth. Concern for ACS vs CHF vs pneumonia vs viral syndrome vs ?DVT vs cellulitis. Lower suspicion for PE as patient is anticoagulated Plan: EKG, labs, CXR, venous duplex ultrasound, re-evaluate Medical Records Data Attestation: I reviewed the patient's medical records. Lab Data Attestation: I reviewed the patient's lab results. Result diagrams: 01/11/22 13:54 01/11/22 13:54 Labs: Lab Results 01/11/22 01/11/22 01/11/22 Range/Units 13:49 13:54 13:54 WBC 4.7 L (4.8-10.8) X10*3/uL RBC 3.32 L (4.20-5.50) X10*6/uL Hgb 9.4 L (12.0-16.0) g/dl Hct 30.8 L (37.0-47.0) % MCV 92.8 (80.0-98.0) fL MCH 28.3 (27.0-33.0) pg MCHC 30.5 L (31.0-35.0) g/dl RDW 14.8 (11.0-16.0) % Plt Count 179 (160-400) X10*3/uL MPV 10.3 (9.4-12.3) fL Immature Gran % (Auto) 0.4 (0.0-0.4) % Neut % (Auto) 68.8 (45-73) % Lymph % (Auto) 17.2 L (20-40) % Meagher % (Auto) 9.6 (2-11) % Eos % (Auto) 3.2 (0-4) % Baso % (Auto) 0.8 (0-2) % Lymph # (Auto) 0.8 L (1.2-4.9) X10*3/uL Meagher # (Auto) 0.5 (0.1-1.2) X10*3/uL Eos # (Auto) 0.2 (0.0-0.4) X10*3/uL Baso # (Auto) 0.0 (0.0-0.2) X10*3/uL Abs Immat Gran (auto) 0.02 (0.00-0.03) X10*3/uL Absolute Neuts (auto) 3.2 (2.0-8.3) x10*3/uL Absolute Nucleated RBC 0.000 (0.0-0.012) X10*3/uL Nucleated RBC % (auto) 0.0 (0.0-0.2) /100WBC PT (10.0-13.1) SEC INR (0.9-1.1) Sodium 139 (135-145) mmol/L Potassium 4.3 (3.3-5.1) mmol/L Chloride 104 (96-108) mmol/L Carbon Dioxide 26 (22-29) mmol/L Anion Gap 13 (12-20) BUN 15 (9-16) mg/dL Creatinine 0.70 (0.5-1.4) mg/dL Estim Creat Clear Calc 66.0 Estimated GFR > 60 Random Glucose 97 (60-115) mg/dL Calcium 9.4 (8.4-10.2) mg/dL Magnesium 1.7 (1.6-2.6) mg/dL Total Bilirubin 0.8 (0.0-1.0) mg/dL Direct Bilirubin 0.4 (0.0-0.5) mg/dL AST 15 (5-31) U/L ALT < 6 (0-31) U/L Alkaline Phosphatase 80 (39-117) U/L Troponin I High Sens (<3.5-17.0) ng/L B-Natriuretic Peptide (<100) pg/mL Total Protein 7.1 (6.5-8.0) g/dL Albumin 3.0 L (3.5-5.0) g/dL Influenza Type A (PCR) NEGATIVE (Negative) Influenza Type B (PCR) NEGATIVE (Negative) RSV RNA Qual (PCR) NEGATIVE (Negative) SARS-CoV-2 RNA (RT-PCR) NEGATIVE (Negative) 01/11/22 01/11/22 01/11/22 Range/Units 13:54 13:54 13:54 WBC (4.8-10.8) X10*3/uL RBC (4.20-5.50) X10*6/uL Hgb (12.0-16.0) g/dl Hct (37.0-47.0) % MCV (80.0-98.0) fL MCH (27.0-33.0) pg MCHC (31.0-35.0) g/dl RDW (11.0-16.0) % Plt Count (160-400) X10*3/uL MPV (9.4-12.3) fL Immature Gran % (Auto) (0.0-0.4) % Neut % (Auto) (45-73) % Lymph % (Auto) (20-40) % Meagher % (Auto) (2-11) % Eos % (Auto) (0-4) % Baso % (Auto) (0-2) % Lymph # (Auto) (1.2-4.9) X10*3/uL Meagher # (Auto) (0.1-1.2) X10*3/uL Eos # (Auto) (0.0-0.4) X10*3/uL Baso # (Auto) (0.0-0.2) X10*3/uL Abs Immat Gran (auto) (0.00-0.03) X10*3/uL Absolute Neuts (auto) (2.0-8.3) x10*3/uL Absolute Nucleated RBC (0.0-0.012) X10*3/uL Nucleated RBC % (auto) (0.0-0.2) /100WBC PT 30.9 H (10.0-13.1) SEC INR 2.6 H (0.9-1.1) Sodium (135-145) mmol/L Potassium (3.3-5.1) mmol/L Chloride (96-108) mmol/L Carbon Dioxide (22-29) mmol/L Anion Gap (12-20) BUN (9-16) mg/dL Creatinine (0.5-1.4) mg/dL Estim Creat Clear Calc Estimated GFR Random Glucose (60-115) mg/dL Calcium (8.4-10.2) mg/dL Magnesium (1.6-2.6) mg/dL Total Bilirubin (0.0-1.0) mg/dL Direct Bilirubin (0.0-0.5) mg/dL AST (5-31) U/L ALT (0-31) U/L Alkaline Phosphatase (39-117) U/L Troponin I High Sens 11.5 (<3.5-17.0) ng/L B-Natriuretic Peptide 353 H (<100) pg/mL Total Protein (6.5-8.0) g/dL Albumin (3.5-5.0) g/dL Influenza Type A (PCR) (Negative) Influenza Type B (PCR) (Negative) RSV RNA Qual (PCR) (Negative) SARS-CoV-2 RNA (RT-PCR) (Negative) 01/11/22 Range/Units 15:05 WBC (4.8-10.8) X10*3/uL RBC (4.20-5.50) X10*6/uL Hgb (12.0-16.0) g/dl Hct (37.0-47.0) % MCV (80.0-98.0) fL MCH (27.0-33.0) pg MCHC (31.0-35.0) g/dl RDW (11.0-16.0) % Plt Count (160-400) X10*3/uL MPV (9.4-12.3) fL Immature Gran % (Auto) (0.0-0.4) % Neut % (Auto) (45-73) % Lymph % (Auto) (20-40) % Meagher % (Auto) (2-11) % Eos % (Auto) (0-4) % Baso % (Auto) (0-2) % Lymph # (Auto) (1.2-4.9) X10*3/uL Meagher # (Auto) (0.1-1.2) X10*3/uL Eos # (Auto) (0.0-0.4) X10*3/uL Baso # (Auto) (0.0-0.2) X10*3/uL Abs Immat Gran (auto) (0.00-0.03) X10*3/uL Absolute Neuts (auto) (2.0-8.3) x10*3/uL Absolute Nucleated RBC (0.0-0.012) X10*3/uL Nucleated RBC % (auto) (0.0-0.2) /100WBC PT (10.0-13.1) SEC INR (0.9-1.1) Sodium (135-145) mmol/L Potassium (3.3-5.1) mmol/L Chloride (96-108) mmol/L Carbon Dioxide (22-29) mmol/L Anion Gap (12-20) BUN (9-16) mg/dL Creatinine (0.5-1.4) mg/dL Estim Creat Clear Calc Estimated GFR Random Glucose (60-115) mg/dL Calcium (8.4-10.2) mg/dL Magnesium (1.6-2.6) mg/dL Total Bilirubin (0.0-1.0) mg/dL Direct Bilirubin (0.0-0.5) mg/dL AST (5-31) U/L ALT (0-31) U/L Alkaline Phosphatase (39-117) U/L Troponin I High Sens 10.9 (<3.5-17.0) ng/L B-Natriuretic Peptide (<100) pg/mL Total Protein (6.5-8.0) g/dL Albumin (3.5-5.0) g/dL Influenza Type A (PCR) (Negative) Influenza Type B (PCR) (Negative) RSV RNA Qual (PCR) (Negative) SARS-CoV-2 RNA (RT-PCR) (Negative) Discharge Plan Discharge Clinical Impression: Congestive heart failure (CHF), Cellulitis Patient Disposition: Still a Patient Prescriptions: No Action cholecalciferol (vitamin D3) 50 mcg (2,000 unit) capsule 50 mcg PO DAILY 90 Days Qty: 90 3RF simvastatin 20 mg tablet 20 mg PO DAILY 90 Days Qty: 90 2RF trazodone 50 mg tablet 25 mg PO BEDTIME PRN (Reason: sleep) 90 Days Qty: 90 1RF potassium chloride 20 mEq tablet extended release 20 meq PO DAILY 90 Days Qty: 90 0RF aspirin 81 mg tablet,delayed release (DR/EC) 81 mg PO DAILY Qty: 90 3RF folic acid 1 mg tablet 1 mg PO DAILY 90 Days Qty: 90 3RF polyethylene glycol 3350 [Miralax] 17 gram/dose powder 17 g PO DAILY PRN (Reason: constipation) Qty: 119 0RF sennosides-docusate sodium [Senna with Docusate Sodium] 8.6-50 mg tablet 2 tab-cap PO DAILY PRN (Reason: constipation) 90 Days Qty: 180 0RF (DME) Hospital bed See Rx Instructions .Route .MEDSUPPLY Qty: 1 0RF Rx Instructions: As directed warfarin 4 mg tablet 4 mg PO .QOD Qty: 45 3RF Rx Instructions: or as directed warfarin 3 mg tablet 3 mg PO .QOD 90 Days Qty: 45 1RF Rx Instructions: or as directed warfarin 1 mg tablet 3 mg PO DAILY Qty: 300 1RF Rx Instructions: or as directed sertraline [Zoloft] 25 mg tablet 25 mg PO DAILY Qty: 30 2RF nystatin 100,000 unit/gram ointment 1 appl topical TID Qty: 5 1RF nystatin 100,000 unit/gram cream 1 appl topical BID Qty: 30 1RF furosemide 40 mg tablet 40 mg PO DAILY Qty: 90 3RF metoprolol tartrate 25 mg tablet 12.5 mg PO BID 90 Days Qty: 90 2RF methotrexate sodium 10 mg tablet 20 mg PO QWEEK (DME) blood-glucose meter [OneTouch Ultra2 Meter] Kit See Rx Instructions .ROUTE .MEDSUPPLY Qty: 1 0RF Rx Instructions: As directed check the blood sugar once a day (DME) blood sugar diagnostic Strip See Rx Instructions .ROUTE .MEDSUPPLY Qty: 250 3RF Rx Instructions: Twice a day
--- NOTE | 2022-01-11 12:35 | ECG_ITS ---
Test Reason : CP Blood Pressure : / mmHG Vent. Rate : 073 BPM Atrial Rate : 000 BPM P-R Int : 000 ms QRS Dur : 138 ms QT Int : 472 ms P-R-T Axes : 000 086 -31 degrees QTc Int : 519 ms Atrial fibrillation Right bundle branch block T wave abnormality, consider inferior ischemia Abnormal ECG When compared with ECG of 28-DEC-2021 10:42, No significant change was found Referred By: Marianna Mahan Electronically Signed By:YVES BARRAZA MD
[2022-01-11 14:02] LABS: MANUAL DIFF FLAG NO
[2022-01-11 14:03] LABS: Basophils Percent Auto 0.8 % (0-2); Eosinophils Absolute Auto 0.2 X10*3/uL (0.0-0.4); Eosinophils Percent Auto 3.2 % (0-4); Hematocrit 30.8 % (37.0-47.0); Hemoglobin 9.4 g/dl (12.0-16.0); Imm Gran Abs Auto 0.02 X10*3/uL (0.00-0.03); Imm Gran Pct Auto 0.4 % (0.0-0.4); Lymphocytes Absolute Auto 0.8 X10*3/uL (1.2-4.9); Lymphocytes Percent Auto 17.2 % (20-40); Mean Corpuscular HGB Conc 30.5 g/dl (31.0-35.0); Mean Corpuscular Hemoglobin 28.3 pg (27.0-33.0); Mean Corpuscular Volume 92.8 fL (80.0-98.0); Mean Platelet Volume 10.3 fL (9.4-12.3); Monocytes Absolute Auto 0.5 X10*3/uL (0.1-1.2); Monocytes Percent Auto 9.6 % (2-11); Neutrophils Absolute Auto 3.2 x10*3/uL (2.0-8.3); Neutrophils Percent Auto 68.8 % (45-73); Platelet Count 179 X10*3/uL (160-400); Red Blood Count 3.32 X10*6/uL (4.20-5.50); Red Cell Distribution Width 14.8 % (11.0-16.0); White Blood Count 4.7 X10*3/uL (4.8-10.8)
[2022-01-11 14:10] LABS: INTERNATIONAL NORM RATIO 2.6 (0.9-1.1); Prothrombin Time 30.9 SEC (10.0-13.1)
[2022-01-11 14:21] LABS: Alanine Aminotransferase < 6 U/L (0-31); Alkaline Phosphatase 80 U/L (39-117); Anion Gap 13 (12-20); Aspartate Amino Transferase 15 U/L (5-31); Bilirubin Direct 0.4 mg/dL (0.0-0.5); Bilirubin Total 0.8 mg/dL (0.0-1.0); Blood Urea Nitrogen 15 mg/dL (9-16); Calcium 9.4 mg/dL (8.4-10.2); Carbon Dioxide 26 mmol/L (22-29); Chloride 104 mmol/L (96-108); Estimated Glomerular Filt Rate > 60; Glucose Random 97 mg/dL (60-115); Magnesium 1.7 mg/dL (1.6-2.6); Potassium 4.3 mmol/L (3.3-5.1); Sodium 139 mmol/L (135-145); Total Protein 7.1 g/dL (6.5-8.0)
[2022-01-11 14:24] LABS: B Type Natriuretic Peptide 353 pg/mL (<100)
[2022-01-11 14:28] LABS: Troponin-I High Sensitivity 11.5 ng/L (<3.5-17.0)
[2022-01-11 14:35] VITALS: BP 158/62; PULSE 72; RESP 25; TEMP 36.6; O2SAT 95
[2022-01-11 14:46] LABS: Influenza A PCR NEGATIVE (Negative); Influenza B PCR NEGATIVE (Negative); Resp Syncy Virus RNA Qual PCR NEGATIVE (Negative); SARS COV2 PCR INHOUSE NEGATIVE (Negative)
[2022-01-11] MEDS: Furosemide 40 MG/4 ML VIAL IVPUSH (15:07)
--- NOTE | 2022-01-11 15:18 | PC.NURSE ---
PT a&ox3, states CP started this AM, reports pain was constant 10/24. Currently denies CP. Med given as documented.
[2022-01-11 15:42] LABS: Troponin-I High Sensitivity 10.9 ng/L (<3.5-17.0)
--- NOTE | 2022-01-11 17:04 | PC.NURSE ---
Addendum entered by Lexi Wilson RN 01/11/22 17:22: patient ambulated on room air not on 2L and was at 97% Original Note: patient ambulated with tech and walker, pt was 97% on 2L nc, hr 92, provider notified by tech
--- NOTE | 2022-01-11 18:00 | PC.NURSE ---
PT medically cleared for d/c. Emily (step daughter [phone]) was notified to picker packer patient. Per Emily she had to call someone for a vehicle and would return call for update. PT aware of plan.
--- NOTE | 2022-01-11 18:20 | PC.NURSE ---
Per Emily, son will be patient home.
== END 2022-01-11 18:42 | disposition home or self-care (01) ==
PROVIDERS: Physician Assistant; Emergency Provider Emergency Medicine; PCP Internal Medicine
DX: L03.116 Cellulitis of left lower limb (principal); I11.0 Hypertensive heart disease with heart failure; I50.9 Heart failure, unspecified; R60.0 Localized edema; Z20.822 Contact with and (suspected) exposure to COVID-19; E11.9 Type 2 diabetes mellitus without complications; E78.5 Hyperlipidemia, unspecified; I48.91 Unspecified atrial fibrillation; Z79.01 Long term (current) use of anticoagulants; Z79.82 Long term (current) use of aspirin; Z79.02 Long term (current) use of antithrombotics/antiplatelets; Z79.899 Other long term (current) drug therapy
CPT/HCPCS: 0241U; 36415; 71045; 80048; 80076; 83735; 83880; 84484; 85025; 85610; 93005; 93971; 96374; 99284; J1940

== ENCOUNTER 2022-01-13 04:55 | Emergency (ER) | payer MEDICARE, OTHER, SELFPAY ==
[2022-01-13] VITALS (8 sets, daily range): BP systolic 137–163; BP diastolic 52–83; PULSE 72–92; RESP 12–16; TEMP 37–37.7; O2SAT 90–96; BMI 35.7
--- NOTE | ~2022-01-13 | CT_ITS ---
EXAMINATION: CT ABDOMEN AND PELVIS WITHOUT CONTRAST CLINICAL INFORMATION: Left groin pain COMPARISON: 08/21/2021 TECHNIQUE: Multidetector volumetric imaging was performed from the superior aspect of the liver through the pubic symphysis. Sagittal and coronal reformatted images were obtained on the technologist's workstation. This CT examination was performed using dose optimization techniques as appropriate, variously including the following: *Automated exposure control *Adjustment of mA and/or kV according to patient size (this includes techniques or standardized protocols for targeted exams where dose is matched to indication/reason for exam; i.e. extremities or head) *Use of iterative reconstruction technique DLP: 930 mGy-cm FINDINGS: LUNG BASES: The visualized lung bases demonstrate mild atelectasis. Cardiomegaly noted. LIVER, GALLBLADDER, AND BILIARY TREE: The liver is normal in size, shape, and attenuation. No focal hepatic lesion or biliary ductal dilatation is identified. Cholelithiasis is noted without appreciable gallbladder wall thickening or surrounding inflammation. PANCREAS: Partial fatty atrophy noted. SPLEEN: Unremarkable. ADRENAL GLANDS: Unremarkable. KIDNEYS AND URETERS: Several bilateral renal calculi are noted measuring up to 5 mm. There is a 4 mm calculus in the mid right ureter with mild hydronephrosis. No left-sided hydronephrosis. Suspected small milk of calcium cyst in the lower left kidney. BLADDER: Unremarkable. GASTROINTESTINAL TRACT: No evidence of bowel obstruction or significant wall thickening. Colonic diverticulosis is noted. No free fluid or free air is seen. ABDOMINAL WALL: No significant hernia is appreciated. LYMPH NODES: Scattered mesenteric and retroperitoneal lymph nodes are present, some of which are borderline enlarged in the pelvis, overall similar to prior. VASCULAR: Scattered atherosclerotic calcifications. PELVIC VISCERA: Status post hysterectomy. OSSEOUS STRUCTURES: Redemonstrated L2 compression deformity. Multilevel degenerative changes noted in the spine. CT/CT abdomen pelvis wo IV con IMPRESSION: 1. Mid right ureteral calculus measuring 4 mm with mild hydronephrosis. 2. Several bilateral renal calculi. 3. Cholelithiasis. 4. Cardiomegaly.
--- NOTE | ~2022-01-13 | XR_ITS ---
EXAMINATION: XR CHEST CLINICAL INFORMATION: Shortness of breath COMPARISON: 01/11/2022 TECHNIQUE: Frontal view of the chest was obtained. FINDINGS: There is mild cardiomegaly with TAVR in place. Prominent pulmonary arteries suggesting pulmonary hypertension. There is no evidence of CHF. No infiltrates or effusions are seen. Severe degenerative changes are again noted in both shoulders as well as in the spine. XR/XR chest 1V IMPRESSION: No acute intrathoracic disease. Enlarged pulmonary arteries suggesting pulmonary hypertension.
[2022-01-13] MEDS: HYDROmorphone HCl 1 MG/ML SYRINGE IM (05:15)
--- NOTE | 2022-01-13 07:39 | PC.NURSE ---
SEE PAPER DOCUMENTATION FOR TRIAGE, PT RESTING COMFORTABLY ON STRETCHER, STATES 3/10 PAIN LEVEL AT THIS TIME
--- NOTE | 2022-01-13 08:16 | ED_ITS ---
HPI - Extremity Problem General Time Seen by Provider: 01/13/22 05:03 <Rajeev Pinto MD - Last Filed: 01/13/22 17:09> Source: patient <Rajeev Pinto MD - Last Filed: 01/13/22 17:09> Mode of arrival: EMS <Rajeev Pinto MD - Last Filed: 01/13/22 17:09> Limitations: no limitations <Rajeev Pinto MD - Last Filed: 01/13/22 17:09> History of Present Illness HPI Narrative: Patient seen here yesterday for chest pain workup was negative also had left leg venous Doppler which was negative for DVT comes here for pain in the left groin and left leg area which happened after she reached home. Patient denies any fall, no leg swelling noticed no abdominal pain or distension no nausea vomiting /fever <Rajeev Pinto MD - Last Filed: 01/13/22 17:09> Related Data Home medications: Home Medications Medication Instructions Recorded Confirmed methotrexate sodium 10 mg tablet 20 mg PO QWEEK 11/10/21 01/13/22 warfarin 1 mg tablet 1 mg PO Q2D 01/13/22 01/13/22 warfarin 1 mg tablet 2 tab PO Q2D 01/13/22 01/13/22 Previous Rx's Medication Instructions Recorded blood sugar diagnostic #250 ea 07/29/21 blood-glucose meter (OneTouch #1 ea 07/29/21 Ultra2 Meter kit) cholecalciferol (vitamin D3) 50 50 mcg PO DAILY 90 days #90 caps 08/12/21 mcg (2,000 unit) capsule simvastatin 20 mg tablet 20 mg PO DAILY 90 days #90 tabs 08/12/21 folic acid 1 mg tablet 1 mg PO DAILY 90 days #90 tabs 08/21/21 Hospital bed #1 ea 09/16/21 warfarin 3 mg tablet 3 mg PO .QOD 90 days #45 tabs 11/20/21 warfarin 4 mg tablet 4 mg PO .QOD #45 tabs 11/20/21 sertraline 25 mg tablet (Zoloft) 25 mg PO DAILY #30 tabs 12/08/21 furosemide 40 mg tablet 40 mg PO DAILY #90 tabs 12/31/21 metoprolol tartrate 25 mg tablet 12.5 mg PO BID 90 days #90 tabs 12/31/21 tramadol 50 mg tablet 50 mg PO Q6H PRN pain #20 tabs 01/13/22 <Rajeev Pinto MD - Last Filed: 01/13/22 17:09> Allergies/Adverse reactions: Allergies Allergy/AdvReac Type Severity Reaction Status Date / Time shellfish derived Allergy Unknown itchy Verified 11/10/21 14:25 procaine [From Novocain] AdvReac Unknown makes Verified 11/10/21 14:25 patient itchy,puffy <Rajeev Pinto MD - Last Filed: 01/13/22 17:09> Review of Systems Review of Systems: Yes all other systems are reviewed and are negative <Rajeev Pinto MD - Last Filed: 01/13/22 17:09> [facility] Past Medical History Medical History: Medical History (HFpEF) heart failure with preserved ejection fraction Acute pyelonephritis Anxiety and depression Atrial fibrillation CHF exacerbation Chronic anticoagulation Congestive heart failure CVA (cerebral vascular accident) Hypercholesterolemia Hypertension Lumbar vertebral fracture Nonrheumatic aortic valve stenosis Obesity (BMI 30-39.9) Pancytopenia Persistent atrial fibrillation Pneumonia Pulmonary hypertension Rash Rheumatoid arthritis Sepsis TIA (transient ischemic attack) Type 2 diabetes mellitus with hyperglycemia Uterine cancer <Rajeev Pinto MD - Last Filed: 01/13/22 17:09> Surgical History: Surgical History History of appendectomy History of colonoscopy History of left knee replacement History of right knee joint replacement History of transcatheter aortic valve replacement (TAVR) (~06/19/21) S/P ANTONIO-BSO <Rajeev Pinto MD - Last Filed: 01/13/22 17:09> Family History Family History: Family History Father Diabetes CAD (coronary artery disease) Mother Diabetes Hypertension Perforated ulcer Sister Diabetes <Rajeev Pinto MD - Last Filed: 01/13/22 17:09> Social History Social History: Social History Household Members: Spouse Housing: House Do you presently have visiting nurse or other home services: No Alcohol intake: never Patient Tobacco Use Status: Never used Tobacco e-Cigarette/Vaping Use: Never Used Second Hand Smoke Exposure: No Advance Directives: Yes Advance Directives on File: Yes Advance Directives Date on File: 08/31/21 service: No Current occupational status: retired Cognitive needs: Yes (cane, walker) Hearing needs: No Vision needs: Yes (glasses) <Rajeev Pinto MD - Last Filed: 01/13/22 17:09> Physical Exam Vital Signs: Vital Signs: Last Vital Signs Pulse 85 01/13/22 15:50 Resp 12 01/13/22 14:38 BP 145/52 H 01/13/22 15:50 Pulse Ox 96 01/13/22 10:02 O2 Del Method 01/13/22 10:02 BMI result Body Mass Index 35.7 <Rajeev Pinto MD - Last Filed: 01/13/22 17:09> Vital Signs: Last Vital Signs Pulse 85 01/13/22 15:50 Resp 12 01/13/22 14:38 BP 145/52 H 01/13/22 15:50 Pulse Ox 96 01/13/22 10:02 O2 Del Method 01/13/22 10:02 BMI result Body Mass Index 35.7 <JUSTEN Larose - Last Filed: 01/13/22 15:56> Appearance: Alert. Oriented X3. No acute distress. Eyes: PERRLA, No Nystagmus ENT: Pharynx normal. Oral Mucosa moist Neck: Normal inspection. Neck supple. CVS: Normal heart rate and rhythm. Pulses normal. Respiratory: No respiratory distress. Equal air entry bilateral, no w heezing/rales/rhonchi Abdomen: Soft and nontender. Bowel sounds are present, no mass palpable, no CVA tenderness Skin: Skin warm and dry. Normal skin color. Normal skin turgor. Extremities: No lower extremity edema. No calf tenderness diffuse muscular tenderness in groin area no deformity neurovascular intact pain increases on adduction and flexion of the left thigh Neuro: Oriented X 3. No motor deficit. No sensory deficit.No cerebellar signs , cranial nerves II-XII intact <Rajeev Pinto MD - Last Filed: 01/13/22 17:09> Course Course Course Narrative: 01/13/22--10:44 physician observation continued. Labs reviewed, CT revealed 4 mm mid right ureter calculus with mild hydro. Patient unable to ambulate secondary to pain. physical therapy evaluated patient recommended short-term rehab. Will consult Urology, Dr. Rios and obtain UA > case discussed with Urology, Dr. Rios. Patient's pain is on the opposite side of kidney stone. Stone should pass on its own. On re-evaluation patient reports 4/10 pain. Will continue with case management placement for STR <JUSTEN Larose - Last Filed: 01/13/22 15:56> Medications Administered Generic Name Dose Route Start Last Admin Trade Name Freq PRN Reason Stop Dose Admin Atorvastatin Calcium 10 mg 01/13/22 16:30 01/13/22 16:35 Atorvastatin Calcium 10 Mg Tablet PO 10 mg DAILY KIKI Administration Folic Acid 1 mg 01/13/22 16:15 01/13/22 16:35 Folic Acid 1 Mg Tablet PO 1 mg DAILY KIKI Administration Furosemide 40 mg 01/13/22 16:15 01/13/22 16:35 Furosemide 40 Mg Tablet PO 40 mg DAILY KIKI Administration Protocol Oxycodone HCl 5 mg 01/13/22 16:04 01/13/22 16:35 Oxycodone Hcl Immed Release 5 Mg Tablet PO 5 mg Q6H PRN Administration Pain, Moderate (Pain Scale 4-6 Sertraline HCl 25 mg 01/13/22 16:15 01/13/22 16:35 Sertraline Hcl 25 Mg Tablet PO 25 mg DAILY KIKI Administration Vitamin D 50 mcg 01/13/22 16:15 01/13/22 16:35 Cholecalciferol (Vitamin D3) 25 Mcg Tablet PO 50 mcg DAILY KIKI Administration Warfarin Sodium 2 mg 01/13/22 18:00 01/13/22 16:36 Warfarin Sodium 2 Mg Tablet PO 2 mg Q48H KIKI Administration Discontinued Medications Generic Name Dose Route Start Last Admin Trade Name Freq PRN Reason Stop Dose Admin Hydromorphone HCl 1 mg 01/13/22 05:00 01/13/22 05:15 Hydromorphone Hcl 1 Mg/Ml Syringe IM 01/13/22 05:01 1 mg ONCE ONE Administration Tamsulosin HCl 0.4 mg 01/13/22 10:42 01/13/22 11:32 Tamsulosin Hcl 0.4 Mg Capsule PO 01/13/22 10:43 0.4 mg ONCE ONE Administration <Rajeev Pinto MD - Last Filed: 01/13/22 17:09> Medications Administered Generic Name Dose Route Start Last Admin Trade Name Nelson PRN Reason Stop Dose Admin Atorvastatin Calcium 10 mg 01/13/22 16:30 01/13/22 16:35 Atorvastatin Calcium 10 Mg Tablet PO 10 mg DAILY KIKI Administration Folic Acid 1 mg 01/13/22 16:15 01/13/22 16:35 Folic Acid 1 Mg Tablet PO 1 mg DAILY KIKI Administration Furosemide 40 mg 01/13/22 16:15 01/13/22 16:35 Furosemide 40 Mg Tablet PO 40 mg DAILY KIKI Administration Protocol Oxycodone HCl 5 mg 01/13/22 16:04 01/13/22 16:35 Oxycodone Hcl Immed Release 5 Mg Tablet PO 5 mg Q6H PRN Administration Pain, Moderate (Pain Scale 4-6 Sertraline HCl 25 mg 01/13/22 16:15 01/13/22 16:35 Sertraline Hcl 25 Mg Tablet PO 25 mg DAILY KIKI Administration Vitamin D 50 mcg 01/13/22 16:15 01/13/22 16:35 Cholecalciferol (Vitamin D3) 25 Mcg Tablet PO 50 mcg DAILY KIKI Administration Warfarin Sodium 2 mg 01/13/22 18:00 01/13/22 16:36 Warfarin Sodium 2 Mg Tablet PO 2 mg Q48H KIKI Administration Discontinued Medications Generic Name Dose Route Start Last Admin Trade Name Nelson PRN Reason Stop Dose Admin Hydromorphone HCl 1 mg 01/13/22 05:00 01/13/22 05:15 Hydromorphone Hcl 1 Mg/Ml Syringe IM 01/13/22 05:01 1 mg ONCE ONE Administration Tamsulosin HCl 0.4 mg 01/13/22 10:42 01/13/22 11:32 Tamsulosin Hcl 0.4 Mg Capsule PO 01/13/22 10:43 0.4 mg ONCE ONE Administration <JUSTEN Larose - Last Filed: 01/13/22 15:56> MDM - Extremity (Nontraumatic) MDM Narrative Medical decision making narrative: Patient's left groin pain clinically groin strain CT scan of the abdomen pelvis done negative for any fracture showed 4 mm right ureteric stone with mild hydronephrosis patient does not have any pain in the right side , patient had stable labs yesterday patient unable to ambulate of her own without support, will get case management involved Patient urine showed wbc's without any bacteria or nitrites patient is symptomatic likely chronic colonization patient previous urine culture were negative <Rajeev Pinto MD - Last Filed: 01/13/22 17:09> Lab Data Attestation: I reviewed the patient's lab results. <Rajeev Pinto MD - Last Filed: 01/13/22 17:09> Labs: Lab Results 01/13/22 01/13/22 01/13/22 Range/Units 10:09 11: 11:39 POC Glucose 130 H (60-115) mg/dL Urine Color Yellow Urine Appearance Clear Urine pH 7.5 (5.0-9.0) Ur Specific [place] 1.020 (1.005-1.025) Urine Protein 30 (1+) H (Neg-Trace) mg/dL Urine Glucose (UA) Negative (Negative) mg/dL Urine Ketones Negative (Negative) mg/dL Urine Blood Negative (Negative) Urine Nitrite Negative (Negative) Ur Leukocyte Esterase Small (1+) H (Negative) Urine RBC 6-10 H (0-2) /HPF Urine WBC 21-50 H (0-5) /HPF Ur Squamous Epith Cells 3-5 (0-2) /HPF Urine Bacteria None Seen (None Seen) Hyaline Casts 0-2 (0-2) /LPF COVID-19 (LOR[place]INE) Negative (Negative) COVID-19 Clin Com See Note <Rajeev Pinto MD - Last Filed: 01/13/22 17:09> Lab Results 01/13/22 01/13/22 01/13/22 Range/Units 10:09 11: 11:39 POC Glucose 130 H (60-115) mg/dL Urine Color Yellow Urine Appearance Clear Urine pH 7.5 (5.0-9.0) Ur Specific [place] 1.020 (1.005-1.025) Urine Protein 30 (1+) H (Neg-Trace) mg/dL Urine Glucose (UA) Negative (Negative) mg/dL Urine Ketones Negative (Negative) mg/dL Urine Blood Negative (Negative) Urine Nitrite Negative (Negative) Ur Leukocyte Esterase Small (1+) H (Negative) Urine RBC 6-10 H (0-2) /HPF Urine WBC 21-50 H (0-5) /HPF Ur Squamous Epith Cells 3-5 (0-2) /HPF Urine Bacteria None Seen (None Seen) Hyaline Casts 0-2 (0-2) /LPF COVID-19 ([place]ORRAINE) Negative (Negative) COVID-19 Clin Com See Note <JUSTEN Larose - Last Filed: 01/13/22 15:56> Discharge Plan Discharge Clinical Impression: Strain of groin, Calculi, ureter <Rajeev Pinto MD - Last Filed: 01/13/22 17:09> Patient Disposition: Still a Patient <Rajeev Pinto MD - Last Filed: 01/13/22 17:09> Instructions: Groin Strain (ED) <Rajeev Pinto MD - Last Filed: 01/13/22 17:09> Additional Instructions: Take pain medication as prescribed and follow with PCP <Rajeev Pinto MD - Last Filed: 01/13/22 17:09> Prescriptions: New tramadol 50 mg tablet 50 mg PO Q6H PRN (Reason: pain) Qty: 20 0RF No Action cholecalciferol (vitamin D3) 50 mcg (2,000 unit) capsule 50 mcg PO DAILY 90 Days Qty: 90 3RF simvastatin 20 mg tablet 20 mg PO DAILY 90 Days Qty: 90 2RF folic acid 1 mg tablet 1 mg PO DAILY 90 Days Qty: 90 3RF (DME) Hospital bed See Rx Instructions .Route .MEDSUPPLY Qty: 1 0RF Rx Instructions: As directed warfarin 4 mg tablet 4 mg PO .QOD Qty: 45 3RF Rx Instructions: or as directed warfarin 3 mg tablet 3 mg PO .QOD 90 Days Qty: 45 1RF Rx Instructions: or as directed sertraline [Zoloft] 25 mg tablet 25 mg PO DAILY Qty: 30 2RF furosemide 40 mg tablet 40 mg PO DAILY Qty: 90 3RF metoprolol tartrate 25 mg tablet 12.5 mg PO BID 90 Days Qty: 90 2RF warfarin 1 mg tablet 2 tab PO Q2D warfarin 1 mg tablet 1 mg PO Q2D Rx Instructions: or as directed methotrexate sodium 10 mg tablet 20 mg PO QWEEK (DME) blood-glucose meter [OneTouch Ultra2 Meter] Kit See Rx Instructions .ROUTE .MEDSUPPLY Qty: 1 0RF Rx Instructions: As directed check the blood sugar once a day (DME) blood sugar diagnostic Strip See Rx Instructions .ROUTE .MEDSUPPLY Qty: 250 3RF Rx Instructions: Twice a day <Rajeev Pinto MD - Last Filed: 01/13/22 17:09>
--- NOTE | 2022-01-13 08:33 | PC.NURSE ---
attempt to amb pt with walker, pt unable to transfer self without assist, could barely walk with walker, provider aware. Will order PT/CM
[2022-01-13 10:30] LABS: COVID-19 Test Negative (Negative); IDNOW Serial# 9DB6401D
[2022-01-13] MEDS: Tamsulosin HCL 0.4 MG CAPSULE PO (11:32)
[2022-01-13 11:36] LABS: Appearance Urine Clear; Color Urine Yellow; Glucose Urine UA Negative (Negative); Leukocyte Esterase Urine Small (1+) (Negative); Nitrite Urine Negative (Negative); PH 7.5 (5.0-9.0); UMIC TRIGGER UACC YES; Urine Blood Negative (Negative); Urine Ketones Negative (Negative); Urine Protein 30 (1+) mg/dL (Neg-Trace)
[2022-01-13 11:42] LABS: Glucose, Whole Blood 130 mg/dL (60-115)
[2022-01-13 11:50] LABS: Bacteria Urine None Seen (None Seen); Hyaline Casts Urine 0-2 /LPF (0-2); UACC Culture Trigger YES; WBC Urine 21-50 /HPF (0-5)
--- NOTE | 2022-01-13 12:13 | PHA.MEDREC ---
Pharmacy Consult ? Medication Reconciliation Pharmacy has completed the medication reconciliation.
--- NOTE | 2022-01-13 12:16 | MHC.CM.ED ---
Received case management consult overnight from Dr Pinto. Patient came to the ER due to groin pain. Work up was negative at that time. Physical therapy eval completed. Short term rehab is recommended. Patient is well known to case management. T/W spoke with patient's step-daughter Emily via telephone at [phone]. Emily feels patient may need STR. T/w will meet with patient. However, abd CT indiciates hydronephrosis and multiple renal stones. Marianna CAMPUZANO aware. Will obtain UA and consult Dr Rios. Continue to monitor for d/c needs.
[2022-01-13] MEDS: oxyCODONE HCl Immed Release 5 MG TABLET PO (16:35)
[2022-01-13] MEDS: Folic Acid 1 MG TABLET PO (16:35)
[2022-01-13] MEDS: Furosemide 40 MG TABLET PO (16:35)
[2022-01-13] MEDS: Sertraline HCL 25 MG TABLET PO (16:35)
[2022-01-13] MEDS: Atorvastatin Calcium 10 MG TABLET PO (16:35)
[2022-01-13] MEDS: Cholecalciferol (Vitamin D3) 25 MCG TABLET 50 MCG PO (16:35)
[2022-01-13] MEDS: Warfarin Sodium 2 MG TABLET PO (16:36)
--- NOTE | 2022-01-13 17:13 | P.CNUR_ITS ---
History of Present Illness Consult details Consult date: 01/13/22 Narrative: CC: Right ureteric stone This is an 81 year old female patient who present to the ER with groin pain. Upon assessment of the patient she reports she came to the ER for chest pain however it appears she was here on 01/11 for chest pains and noted to have cellulitis of the leg and was given antibiotics and discharged home. 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 Urology consulted for right mid uteric stone on CT however patient denies flank pain, urinary urgency and or frequency. Will initate flomax and short course of prednisone. Will reassess patient tomorrow for possible OR stent placement. Imaging: CT KIDNEYS AND URETERS: Several bilateral renal calculi are noted measuring up to 5 mm. There is a 4 mm calculus in the mid right ureter with mild hydronephrosis. No left-sided hydronephrosis. Suspected small milk of calcium cyst in the lower left kidney. Labs: WBC 4.7, Cr 0.7, UA negative Review of Systems Constitutional: Constitutional: Reports as per HPI Genitourinary: Genitourinary: Denies difficulty voiding, Denies flank pain and Denies urinary urgency [facility] Past Medical History Medical History (HFpEF) heart failure with preserved ejection fraction Acute pyelonephritis Anxiety and depression Atrial fibrillation CHF exacerbation Chronic anticoagulation Congestive heart failure CVA (cerebral vascular accident) Hypercholesterolemia Hypertension Lumbar vertebral fracture Nonrheumatic aortic valve stenosis Obesity (BMI 30-39.9) Pancytopenia Persistent atrial fibrillation Pneumonia Pulmonary hypertension Rash Rheumatoid arthritis Sepsis TIA (transient ischemic attack) Type 2 diabetes mellitus with hyperglycemia Uterine cancer Family History Family History Father Diabetes CAD (coronary artery disease) Mother Diabetes Hypertension Perforated ulcer Sister Diabetes Surgical History Surgical History History of appendectomy History of colonoscopy History of left knee replacement History of right knee joint replacement History of transcatheter aortic valve replacement (TAVR) (~06/19/21) S/P ANTONIO-BSO Social History Social History Household Members: Spouse Housing: House Do you presently have visiting nurse or other home services: No Alcohol intake: never Patient Tobacco Use Status: Never used Tobacco e-Cigarette/Vaping Use: Never Used Second Hand Smoke Exposure: No Advance Directives: Yes Advance Directives on File: Yes Advance Directives Date on File: 08/31/21 service: No Current occupational status: retired Cognitive needs: Yes (cane, walker) Hearing needs: No Vision needs: Yes (glasses) Meds Allergies Allergy/AdvReac Type Severity Reaction Status Date / Time shellfish derived Allergy Unknown itchy Verified 11/10/21 14:25 procaine [From Novocain] AdvReac Unknown makes Verified 11/10/21 14:25 patient itchy,puffy Active Medications: Current Medications Atorvastatin Calcium (Atorvastatin Calcium 10 Mg Tablet) 10 mg PO DAILY [facility] Last Admin: 01/13/22 16:35 Dose: 10 mg Folic Acid (Folic Acid 1 Mg Tablet) 1 mg PO DAILY [facility] Last Admin: 01/13/22 16:35 Dose: 1 mg Furosemide (Furosemide 40 Mg Tablet) 40 mg PO DAILY [facility]; Protocol Last Admin: 01/13/22 16:35 Dose: 40 mg Metoprolol Tartrate (Metoprolol Tartrate 12.5 Mg Halftab) 12.5 mg PO BID [facility]; Protocol Non-Formulary Medication (Methotrexate Sodium) 20 mg PO QWEEK [facility] Oxycodone HCl (Oxycodone Hcl Immed Release 5 Mg Tablet) 5 mg PO Q6H PRN PRN Reason: Pain, Moderate (Pain Scale 4-6 Last Admin: 01/13/22 16:35 Dose: 5 mg Pharmacy Consult (Consult Rx Perform Med Rec) 1 each MISCELLANE ONCE PRN PRN Reason: Consult order Sertraline HCl (Sertraline Hcl 25 Mg Tablet) 25 mg PO DAILY [facility] Last Admin: 01/13/22 16:35 Dose: 25 mg Vitamin D (Cholecalciferol (Vitamin D3) 25 Mcg Tablet) 50 mcg PO DAILY [facility] Last Admin: 01/13/22 16:35 Dose: 50 mcg Warfarin Sodium (Warfarin Sodium 1 Mg Tablet) 1 mg PO Q48H [facility] Warfarin Sodium (Warfarin Sodium 2 Mg Tablet) 2 mg PO Q48H [facility] Last Admin: 01/13/22 16:36 Dose: 2 mg Home Medications Medication Instructions Recorded Confirmed Last Taken Type methotrexate sodium 10 mg tablet 20 mg PO QWEEK 11/10/21 01/13/22 01/12/22 History warfarin 1 mg tablet 1 mg PO Q2D 01/13/22 01/13/22 01/12/22 History warfarin 1 mg tablet 2 tab PO Q2D 01/13/22 01/13/22 01/11/22 History Physical Exam Vital Signs: Vital Signs: Last Vital Signs Pulse 85 01/13/22 15:50 Resp 12 01/13/22 14:38 BP 145/52 H 01/13/22 15:50 Pulse Ox 96 01/13/22 10:02 O2 Del Method 01/13/22 10:02 BMI result Body Mass Index 35.7 Results Labs Labs: Abnormal lab results 01/13/22 01/13/22 Range/Units 11: 11:39 POC Glucose 130 H (60-115) mg/dL Urine Protein 30 (1+) H (Neg-Trace) mg/dL Ur Leukocyte Esterase Small (1+) H (Negative) Urine RBC 6-10 H (0-2) /HPF Urine WBC 21-50 H (0-5) /HPF Urine 01/13/22 Range/Units 11:22 Urine Color Yellow Urine Appearance Clear Urine pH 7.5 (5.0-9.0) Ur Specific [place] 1.020 (1.005-1.025) Urine Protein 30 (1+) H (Neg-Trace) mg/dL Urine Glucose (UA) Negative (Negative) mg/dL All other labs normal. Imaging Abdomen CT scan report/results: report reviewed and image reviewed Assessment and Plan (1) Calculi, ureter: Status: Acute Plan as noted above. Procedures Date of Service Date of Service: 01/13/22
[2022-01-13 17:31] LABS: INTERNATIONAL NORM RATIO 2.5 (0.9-1.1); Prothrombin Time 30.2 SEC (10.0-13.1)
--- NOTE | 2022-01-13 17:55 | MHC.CM.ED ---
CM met with patient regarding discharge planning. PT recommends STR. Pt very teary, doesn't want to go, but knows she needs too. Says she cannot care for herself and needs rehab one minute and the next she says she needs to be home for her . is able to care for himself, but doesn't hear well. Pt is agreeable, reluctantly for referrals for STR, but does not want to go to [facility]. Will referral locally. Message left with step daughter, Emily Mathis ([phone]). Pt lives with . No DME. Has services with [facility] and [facility]. Fully vaccinated. Moderna x3 and Pfizer x1. PCP is Dr. Page. HCP on file. HCP/ Cody Abreu ([phone]). D/C plan: STR. Will need transportation. CM will follow for d/c planning.
--- NOTE | 2022-01-13 20:02 | PC.NURSE ---
2000 rounding done ,vs taken ,patient ate 75 % of meals ,drank 360 ml fluids ,purewick in place ,call parra within reach .
[2022-01-13] MEDS: Metoprolol Tartrate 12.5 MG HALFTAB PO (21:32)
--- NOTE | 2022-01-13 22:15 | PC.NURSE ---
2200 rounding done pt awake ,vs taken pt call parra within reach .
[2022-01-14 06:26] VITALS: BP 143/59; PULSE 78; RESP 16; TEMP 36.9; O2SAT 90
[2022-01-14 07:10] VITALS: BP 152/70; PULSE 79; RESP 20; O2SAT 92
[2022-01-14 07:28] LABS: Glucose, Whole Blood 110 mg/dL (60-115)
[2022-01-14 07:58] LABS: INTERNATIONAL NORM RATIO 2.3 (0.9-1.1); Prothrombin Time 27.6 SEC (10.0-13.1)
[2022-01-14 08:40] VITALS: BP 142/49; PULSE 78; RESP 20; TEMP 37.9; O2SAT 91
[2022-01-14] MEDS: Furosemide 40 MG TABLET PO (09:32)
[2022-01-14] MEDS: Cholecalciferol (Vitamin D3) 25 MCG TABLET 50 MCG PO (09:32)
[2022-01-14] MEDS: oxyCODONE HCl Immed Release 5 MG TABLET PO (09:32)
[2022-01-14] MEDS: Acetaminophen 325 MG TABLET 975 MG PO (09:32)
[2022-01-14] MEDS: Atorvastatin Calcium 10 MG TABLET PO (09:33)
[2022-01-14] MEDS: Sertraline HCL 25 MG TABLET PO (09:33)
[2022-01-14] MEDS: Tamsulosin HCL 0.4 MG CAPSULE PO (09:33)
[2022-01-14] MEDS: Folic Acid 1 MG TABLET PO (09:33)
[2022-01-14] MEDS: Metoprolol Tartrate 12.5 MG HALFTAB PO (09:35)
[2022-01-14 09:36] LABS: Appearance Urine Clear; Color Urine Yellow; Glucose Urine UA Negative (Negative); Leukocyte Esterase Urine Trace (Negative); Nitrite Urine Negative (Negative); PH 6.5 (5.0-9.0); Specific Gravity - Urine 1.015 (1.005-1.025); UMIC TRIGGER UACC YES; Urine Blood Negative (Negative); Urine Ketones Negative (Negative); Urine Protein Negative (Neg-Trace)
--- NOTE | 2022-01-14 09:36 | PC.NURSE ---
unable to scan metoprolol 12.5 mg in APR. med verified with second Nurse García CARTY
--- NOTE | 2022-01-14 09:50 | MHC.CM.ED ---
Patient remains in ER. Received notification from Tanya CARTY that patient will potentially be admitted. Continue to monitor for d/c needs.
[2022-01-14 09:55] LABS: Bacteria Urine None Seen (None Seen); Hyaline Casts Urine 0-2 /LPF (0-2); RBC Urine 0-2 /HPF (0-2); Squamous Epithelial Cell Urine 0-2 /HPF (0-2); WBC Urine 0-5 /HPF (0-5)
[2022-01-14 11:45] VITALS: BP 130/59; PULSE 79; RESP 18; TEMP 37.7; O2SAT 94
--- NOTE | 2022-01-14 12:54 | MHC.CM.ED ---
Addendum entered by Jane Hopkins 01/14/22 14:41: [facility] is able to offer a bed. Patient can leave after 330pm. Patient accepts bed. David BERNABE booked for 5pm. [facility] with chart. Patient, Candida CARTY and Shelbi CAMPUZANO aware. Patient's step daughter, Aria made aware via telephone. Original Note: Patient remains in ER. Received notification from Shelbi CAMPUZANO that patient will not be admitted. Met with patient in regards to discharge planning. [facility], [facility], [facility], and [facility] are willing to offer a bed. Patient has been to [facility] in the past and requested referral be made there. Referral made via [facility]. Continue to monitor for d/c needs.
[2022-01-14 15:54] VITALS: PULSE 74; RESP 16; TEMP 36.4; O2SAT 97
== END 2022-01-14 17:34 | disposition skilled nursing facility (03) ==
PROVIDERS: Physician Assistant; Emergency Provider Internal Medicine; PCP Internal Medicine
DX: N13.2 Hydronephrosis with renal and ureteral calculous obstruction (principal); S39.011A Strain of muscle, fascia and tendon of abdomen, initial encounter; X50.1XXA Overexertion from prolonged static or awkward postures, initial encounter; R50.9 Fever, unspecified; Z20.822 Contact with and (suspected) exposure to COVID-19; I48.91 Unspecified atrial fibrillation; I11.0 Hypertensive heart disease with heart failure; I50.9 Heart failure, unspecified; Z79.02 Long term (current) use of antithrombotics/antiplatelets; Z86.73 Personal history of transient ischemic attack (TIA), and cerebral infarction without residual deficits; Y93.9 Activity, unspecified; Y92.9 Unspecified place or not applicable; Y99.9 Unspecified external cause status
CPT/HCPCS: 36415; 51701; 71045; 74176; 81001; 82947; 85610; 87086; 87635; 97162; 99284; 99285; J1170

== ENCOUNTER 2022-01-28 16:13 | Emergency (ER) | payer MEDICARE, OTHER, SELFPAY ==
[2022-01-28 16:39] VITALS: BP 173/76; PULSE 90; RESP 16; TEMP 36.8; O2SAT 98; BMI 34.0
--- NOTE | 2022-01-28 16:52 | ED_ITS ---
HPI - General Adult General Chief complaint: General Medical Stated complaint: Flu Like Symptoms Time Seen by Provider: 01/28/22 16:40 Source: patient Mode of arrival: EMS Limitations: no limitations History of Present Illness HPI narrative: Patient with history of rheumatoid arthritis on methotrexate, HFpEF, status post TAVR, PAF on Coumadin, just came home from rehab 3 days ago been feeling very weak ,overall weakness with slight nausea no abdominal pain no fever no chills no cough patient refusing to go to intermediate no urinary complaints Related Data Home Medications Medication Instructions Recorded Confirmed methotrexate sodium 10 mg tablet 20 mg PO QWEEK 11/10/21 01/28/22 warfarin 1 mg tablet 1 mg PO Q2D 01/13/22 01/28/22 warfarin 1 mg tablet 2 tab PO Q2D 01/13/22 01/28/22 Previous Rx's Medication Instructions Recorded blood sugar diagnostic #250 ea 07/29/21 blood-glucose meter (OneTouch #1 ea 07/29/21 Ultra2 Meter kit) cholecalciferol (vitamin D3) 50 50 mcg PO DAILY 90 days #90 caps 08/12/21 mcg (2,000 unit) capsule simvastatin 20 mg tablet 20 mg PO DAILY 90 days #90 tabs 08/12/21 folic acid 1 mg tablet 1 mg PO DAILY 90 days #90 tabs 08/21/21 Hospital bed #1 ea 09/16/21 sertraline 25 mg tablet (Zoloft) 25 mg PO DAILY #30 tabs 12/08/21 furosemide 40 mg tablet 40 mg PO DAILY #90 tabs 12/31/21 metoprolol tartrate 25 mg tablet 12.5 mg PO BID 90 days #90 tabs 12/31/21 Allergies Allergy/AdvReac Type Severity Reaction Status Date / Time shellfish derived Allergy Unknown itchy Verified 11/10/21 14:25 procaine [From Novocain] AdvReac Unknown makes Verified 11/10/21 14:25 patient itchy,puffy Review of Systems Review of Systems: Yes all other systems are reviewed and are negative [facility] Past Medical History Medical History (HFpEF) heart failure with preserved ejection fraction Acute pyelonephritis Anxiety and depression Atrial fibrillation CHF exacerbation Chronic anticoagulation Congestive heart failure CVA (cerebral vascular accident) Hypercholesterolemia Hypertension Lumbar vertebral fracture Nonrheumatic aortic valve stenosis Obesity (BMI 30-39.9) Pancytopenia Persistent atrial fibrillation Pneumonia Pulmonary hypertension Rash Rheumatoid arthritis Sepsis TIA (transient ischemic attack) Type 2 diabetes mellitus with hyperglycemia Uterine cancer Surgical History History of appendectomy History of colonoscopy History of left knee replacement History of right knee joint replacement History of transcatheter aortic valve replacement (TAVR) (~06/19/21) S/P ANTONIO-BSO Family History Family History Father Diabetes CAD (coronary artery disease) Mother Diabetes Hypertension Perforated ulcer Sister Diabetes Social History Social History Household Members: Spouse Housing: House Do you presently have visiting nurse or other home services: No Alcohol intake: never Patient Tobacco Use Status: Never used Tobacco e-Cigarette/Vaping Use: Never Used Second Hand Smoke Exposure: No Advance Directives: Yes Advance Directives on File: Yes Advance Directives Date on File: 08/31/21 service: No Current occupational status: retired Cognitive needs: Yes (cane, walker) Hearing needs: No Vision needs: Yes (glasses) Physical Exam ED Vital Signs: Vital Signs - 24 hr 01/28/22 16:39 01/28/22 19:24 Temperature 98.3 F 98.2 F Pulse Rate 90 106 H Respiratory Rate 16 16 Blood Pressure 173/76 H 131/49 L Pulse Oximetry 98 94 Oxygen Delivery Method Room Air Room Air BMI result Body Mass Index 34.0 Appearance: Alert. Oriented X3. No acute distress. Eyes: PERRLA, No Nystagmus ENT: Pharynx normal. Oral Mucosa moist Neck: Normal inspection. Neck supple. CVS: Normal heart rate and rhythm. Pulses normal. Systolic ejection murmur Respiratory: No respiratory distress. Equal air entry bilateral, no wheezing/rales/rhonchi Abdomen: Soft and nontender. Bowel sounds are present, no mass palpable, no CVA tenderness Skin: Skin warm and dry. Normal skin color. Normal skin turgor. Extremities: ++ lower extremity edema. No calf tenderness Neuro: Oriented X 3. No motor deficit. No sensory deficit.No cerebellar signs , cranial nerves II-XII intact Course Course Course Narrative: Patient unsteady while ambulating using walker but still wants to go home does not want to go to intermediate. Will consult case management in a.m. for possible care at home Medications Administered Discontinued Medications Generic Name Dose Route Start Last Admin Trade Name Nelson PRN Reason Stop Dose Admin Acetaminophen 650 mg 01/28/22 20:20 01/28/22 20:41 Acetaminophen 325 Mg Tablet PO 01/28/22 20:21 650 mg ONCE ONE Administration Sodium Chloride 1,000 mls @ 999 mls/hr 01/28/22 16:41 01/28/22 18:05 Ns IV 01/28/22 17:41 Infused .Q1H1M ONE Infusion Ondansetron HCl 4 mg 01/28/22 17:00 01/28/22 17:10 Ondansetron Hcl 4 Mg/2 Ml Vial IVPUSH 01/28/22 17:01 4 mg ONCE ONE Administration Medical Decision Making Medical Decision Making [facility] Narrative: Patient with multiple comorbid condition unsteady on her feet with poor home situation been to rehab still unable to manage at home refusing to go to intermediate will consult case management. Lab Data [facility] Lab Attestation statement: I reviewed the patient's lab results. Result Diagrams: 01/28/22 18:22 01/28/22 18:22 Labs: Lab Results 01/28/22 01/28/22 01/28/22 Range/Units 18:22 18:22 18:22 WBC 12.1 H (4.8-10.8) X10*3/uL RBC 3.51 L (4.20-5.50) X10*6/uL Hgb 9.7 L (12.0-16.0) g/dl Hct 31.4 L (37.0-47.0) % MCV 89.5 (80.0-98.0) fL MCH 27.6 (27.0-33.0) pg MCHC 30.9 L (31.0-35.0) g/dl RDW 15.4 (11.0-16.0) % Plt Count 120 L D (160-400) X10*3/uL MPV 10.1 (9.4-12.3) fL Immature Gran % (Auto) 0.5 H (0.0-0.4) % Neut % (Auto) 81.5 H (45-73) % Lymph % (Auto) 10.7 L (20-40) % [place] % (Auto) 6.1 (2-11) % Eos % (Auto) 1.0 (0-4) % Baso % (Auto) 0.2 (0-2) % Lymph # (Auto) 1.3 (1.2-4.9) X10*3/uL [place] # (Auto) 0.7 (0.1-1.2) X10*3/uL Eos # (Auto) 0.1 (0.0-0.4) X10*3/uL Baso # (Auto) 0.0 (0.0-0.2) X10*3/uL Abs Immat Gran (auto) 0.06 H (0.00-0.03) X10*3/uL Absolute Neuts (auto) 9.9 H (2.0-8.3) x10*3/uL Absolute Nucleated RBC 0.000 (0.0-0.012) X10*3/uL Nucleated RBC % (auto) 0.0 (0.0-0.2) /100WBC PT (10.0-13.1) SEC INR (0.9-1.1) Sodium 139 (135-145) mmol/L Potassium 4.6 (3.3-5.1) mmol/L Chloride 106 (96-108) mmol/L Carbon Dioxide 27 (22-29) mmol/L Anion Gap 11 L (12-20) BUN 18 H (9-16) mg/dL Creatinine 0.69 (0.5-1.4) mg/dL Estim Creat Clear Calc 59.4 Estimated GFR > 60 POC Glucose (60-115) mg/dL Random Glucose 100 (60-115) mg/dL Calcium 8.6 D (8.4-10.2) mg/dL Total Bilirubin 0.8 (0.0-1.0) mg/dL AST 19 (5-31) U/L ALT 12 (0-31) U/L Alkaline Phosphatase 88 (39-117) U/L Total Protein 6.0 L (6.5-8.0) g/dL Albumin 3.0 L (3.5-5.0) g/dL Influenza Type A (PCR) NEGATIVE (Negative) Influenza Type B (PCR) NEGATIVE (Negative) RSV RNA Qual (PCR) NEGATIVE (Negative) SARS-CoV-2 RNA (RT-PCR) NEGATIVE (Negative) 01/28/22 01/29/22 Range/Units 21:33 00:04 WBC (4.8-10.8) X10*3/uL RBC (4.20-5.50) X10*6/uL Hgb (12.0-16.0) g/dl Hct (37.0-47.0) % MCV (80.0-98.0) fL MCH (27.0-33.0) pg MCHC (31.0-35.0) g/dl RDW (11.0-16.0) % Plt Count (160-400) X10*3/uL MPV (9.4-12.3) fL Immature Gran % (Auto) (0.0-0.4) % Neut % (Auto) (45-73) % Lymph % (Auto) (20-40) % [place] % (Auto) (2-11) % Eos % (Auto) (0-4) % Baso % (Auto) (0-2) % Lymph # (Auto) (1.2-4.9) X10*3/uL [place] # (Auto) (0.1-1.2) X10*3/uL Eos # (Auto) (0.0-0.4) X10*3/uL Baso # (Auto) (0.0-0.2) X10*3/uL Abs Immat Gran (auto) (0.00-0.03) X10*3/uL Absolute Neuts (auto) (2.0-8.3) x10*3/uL Absolute Nucleated RBC (0.0-0.012) X10*3/uL Nucleated RBC % (auto) (0.0-0.2) /100WBC PT 22.7 H (10.0-13.1) SEC INR 1.9 H (0.9-1.1) Sodium (135-145) mmol/L Potassium (3.3-5.1) mmol/L Chloride (96-108) mmol/L Carbon Dioxide (22-29) mmol/L Anion Gap (12-20) BUN (9-16) mg/dL Creatinine (0.5-1.4) mg/dL Estim Creat Clear Calc Estimated GFR POC Glucose 142 H (60-115) mg/dL Random Glucose (60-115) mg/dL Calcium (8.4-10.2) mg/dL Total Bilirubin (0.0-1.0) mg/dL AST (5-31) U/L ALT (0-31) U/L Alkaline Phosphatase (39-117) U/L Total Protein (6.5-8.0) g/dL Albumin (3.5-5.0) g/dL Influenza Type A (PCR) (Negative) Influenza Type B (PCR) (Negative) RSV RNA Qual (PCR) (Negative) SARS-CoV-2 RNA (RT-PCR) (Negative) Discharge Plan Discharge Clinical Impression: Weakness Patient Disposition: Still a Patient Prescriptions: No Action cholecalciferol (vitamin D3) 50 mcg (2,000 unit) capsule 50 mcg PO DAILY 90 Days Qty: 90 3RF simvastatin 20 mg tablet 20 mg PO DAILY 90 Days Qty: 90 2RF folic acid 1 mg tablet 1 mg PO DAILY 90 Days Qty: 90 3RF (DME) Hospital bed See Rx Instructions .Route .MEDSUPPLY Qty: 1 0RF Rx Instructions: As directed sertraline [Zoloft] 25 mg tablet 25 mg PO DAILY Qty: 30 2RF furosemide 40 mg tablet 40 mg PO DAILY Qty: 90 3RF metoprolol tartrate 25 mg tablet 12.5 mg PO BID 90 Days Qty: 90 2RF warfarin 1 mg tablet 2 tab PO Q2D warfarin 1 mg tablet 1 mg PO Q2D Rx Instructions: or as directed methotrexate sodium 10 mg tablet 20 mg PO QWEEK [place] blood-glucose [place] [OneTouch Ultra2 Meter] Kit See Rx Instructions .ROUTE .MEDSUPPLY Qty: 1 0RF Rx Instructions: As directed check the blood sugar once a day [place] blood sugar diagnostic Strip See Rx Instructions .ROUTE .MEDSUPPLY Qty: 250 3RF Rx Instructions: Twice a day
[2022-01-28] MEDS: 0.9 % Sodium Chloride 1,000 ML 999 ML IV (17:10)
[2022-01-28] MEDS: ondansetron HCL 4 MG/2 ML VIAL IVPUSH (17:10)
[2022-01-28 18:27] LABS: MANUAL DIFF FLAG NO
[2022-01-28 18:35] LABS: Basophils Percent Auto 0.2 % (0-2); Eosinophils Absolute Auto 0.1 X10*3/uL (0.0-0.4); Hematocrit 31.4 % (37.0-47.0); Hemoglobin 9.7 g/dl (12.0-16.0); Imm Gran Abs Auto 0.06 X10*3/uL (0.00-0.03); Imm Gran Pct Auto 0.5 % (0.0-0.4); Lymphocytes Absolute Auto 1.3 X10*3/uL (1.2-4.9); Lymphocytes Percent Auto 10.7 % (20-40); Mean Corpuscular HGB Conc 30.9 g/dl (31.0-35.0); Mean Corpuscular Hemoglobin 27.6 pg (27.0-33.0); Mean Corpuscular Volume 89.5 fL (80.0-98.0); Mean Platelet Volume 10.1 fL (9.4-12.3); Monocytes Absolute Auto 0.7 X10*3/uL (0.1-1.2); Monocytes Percent Auto 6.1 % (2-11); Neutrophils Absolute Auto 9.9 x10*3/uL (2.0-8.3); Neutrophils Percent Auto 81.5 % (45-73); Platelet Count 120 X10*3/uL (160-400); Red Blood Count 3.51 X10*6/uL (4.20-5.50); Red Cell Distribution Width 15.4 % (11.0-16.0); White Blood Count 12.1 X10*3/uL (4.8-10.8)
[2022-01-28 18:43] LABS: Alanine Aminotransferase 12 U/L (0-31); Alkaline Phosphatase 88 U/L (39-117); Anion Gap 11 (12-20); Aspartate Amino Transferase 19 U/L (5-31); Bilirubin Total 0.8 mg/dL (0.0-1.0); Blood Urea Nitrogen 18 mg/dL (9-16); Calcium 8.6 mg/dL (8.4-10.2); Carbon Dioxide 27 mmol/L (22-29); Chloride 106 mmol/L (96-108); Creatinine Clr Calc Pharmacy 59.4; Estimated Glomerular Filt Rate > 60; Glucose Random 100 mg/dL (60-115); Potassium 4.6 mmol/L (3.3-5.1); Sodium 139 mmol/L (135-145)
[2022-01-28 19:07] LABS: Influenza A PCR NEGATIVE (Negative); Influenza B PCR NEGATIVE (Negative); Resp Syncy Virus RNA Qual PCR NEGATIVE (Negative); SARS COV2 PCR INHOUSE NEGATIVE (Negative)
[2022-01-28 19:24] VITALS: BP 131/49; PULSE 106; RESP 16; TEMP 36.8; O2SAT 94
[2022-01-28] MEDS: Acetaminophen 325 MG TABLET 650 MG PO (20:41)
--- NOTE | 2022-01-28 20:45 | PC.NURSE ---
Assumed care of pt. at 1900. Pt. resting in bed at this time. Pt. reports having a headache at 09/23. Medicated with acetaminophen per MD. Pt. states that she is feeling much better since arriving.
[2022-01-28 21:38] LABS: Glucose, Whole Blood 142 mg/dL (60-115)
--- NOTE | 2022-01-28 22:58 | MHC.EDTECH ---
pt was given a sandwich and pudding with cranberry juice and kaylie starr
--- NOTE | 2022-01-28 23:20 | PC.NURSE ---
Pt. was trialed with walker for ambulation. Pt. still experiencing weakness and unable to ambulate out of her room. Will re-evaulate in the morning. Pt. just had a recent stay in [facility]. Pt. reports living at home with her who has recently been diagnosed with dementia.
[2022-01-29 00:18] LABS: INTERNATIONAL NORM RATIO 1.9 (0.9-1.1); Prothrombin Time 22.7 SEC (10.0-13.1)
--- NOTE | 2022-01-29 01:07 | PC.NURSE ---
Med rec complete. Pt. reports alternating between 1 and 2mg of warfarin. Pt. reported not taking warfarin today and that her next dose would be due at 0800 and she would take the 1mg today. Talked to pharmacy about which dose to enter for the morning. Overnight pharmacy will leave a note for the in-house pharmacy as the hospital policy is to schedule warfarin for 1800. In house pharmacy will then make the final decision on when they will order the warfarin. Pt. PT/INR was drawn this evening.
[2022-01-29 06:32] VITALS: BP 117/52; PULSE 78; RESP 16; TEMP 36.9
--- NOTE | 2022-01-29 06:34 | PC.NURSE ---
Emily, pt''s step-dtr called in to check on pt. Emily reported that pt's spouse doesn't have dementia as pt. claims. Emily reported being concerned about pt. being somewhat confused at home. Emily also reports that pt. isn't taking home medications as she is supposed to and having an excess of medications at home that haven't been taken. Family is questioning medication compliance. Emily also states that dtr, Cecy can be called for further information. Both Emily and Cecy are listed as contacts in pt's account.
[2022-01-29] MEDS: Acetaminophen 325 MG TABLET 975 MG PO (06:47)
--- NOTE | 2022-01-29 06:57 | PC.NURSE ---
Pt. awake, sitting up in bed, reports having a headache at a 5/10. Medicated with tylenol. Pt. states she didn't urinate throughout the night and denies needing to go now.
[2022-01-29 07:03] VITALS: BP 119/48; PULSE 62; RESP 14; TEMP 36.8; O2SAT 96
[2022-01-29 07:06] LABS: Glucose, Whole Blood 103 mg/dL (60-115)
--- NOTE | 2022-01-29 08:18 | PC.NURSE ---
bladder scan showed 229ml of urine. got patient up to commode to void, did well with 2 assist; per tech she voided at least 300ml of dark urine.
[2022-01-29 08:19] LABS: Appearance Urine Clear; Color Urine Yellow; Glucose Urine UA Negative (Negative); Leukocyte Esterase Urine Small (1+) (Negative); Nitrite Urine Negative (Negative); UMIC TRIGGER UACC YES; Urine Blood Negative (Negative); Urine Ketones Negative (Negative); Urine Protein Trace mg/dL (Neg-Trace)
[2022-01-29 08:29] LABS: Bacteria Urine None Seen (None Seen); Hyaline Casts Urine 0-2 /LPF (0-2); RBC Urine 0-2 /HPF (0-2); Squamous Epithelial Cell Urine 0-2 /HPF (0-2); UACC Culture Trigger YES
[2022-01-29] MEDS: Cholecalciferol (Vitamin D3) 25 MCG TABLET 50 MCG PO (08:40)
[2022-01-29] MEDS: Sertraline HCL 25 MG TABLET PO (08:40)
[2022-01-29] MEDS: Folic Acid 1 MG TABLET PO (08:40)
[2022-01-29] MEDS: Atorvastatin Calcium 10 MG TABLET PO (08:40)
[2022-01-29] MEDS: Furosemide 40 MG TABLET PO (08:40)
[2022-01-29] MEDS: Metoprolol Tartrate 12.5 MG HALFTAB PO (09:08)
[2022-01-29 09:36] VITALS: BP 119/48; PULSE 62; O2SAT 96
[2022-01-29 09:54] VITALS: BP 121/51; PULSE 73; RESP 14; TEMP 36.6; O2SAT 94
[2022-01-29 11:34] VITALS: BP 145/53; PULSE 72; RESP 14; TEMP 36.6; O2SAT 95
[2022-01-29 11:36] LABS: Glucose, Whole Blood 113 mg/dL (60-115)
--- NOTE | 2022-01-29 11:39 | MHC.CM.ED ---
Received case management consult overnight from Dr Pinto. Patient came to the ER due to weakness and flu like symptoms. Work up essentially negative. Physical therapy eval completed. Home therapy is recommended. Patient is well-known to case management for frequent ER visits. Patient was recently discharged from [facility]. Patient is active with [facility]. Spoke with patient's step-daughter, Emily. Emily has to take her father to a doctor's appointment. After that she has to return to work and will not be able to transport patient home from the ER. Emily agreeable to [facility] transport home when patient's , Cody has returned from his doctors appointment. Emily will contact when she brings her father home. Continue to monitor for d/c needs.
--- NOTE | 2022-01-29 12:05 | MHC.CM.ED ---
Cody is home from his doctor's appointment. David BERNABE booked for 1pm. Patient, Emily step daughter, La RN and Shelbi CAMPUZANO aware. Continue to monitor for d/c needs.
== END 2022-01-29 13:34 | disposition home or self-care (01) ==
PROVIDERS: Emergency Provider Internal Medicine; PCP Internal Medicine
DX: N39.0 Urinary tract infection, site not specified (principal); M79.10 Myalgia, unspecified site; R50.9 Fever, unspecified; R05.9 Cough, unspecified; R53.1 Weakness; R26.2 Difficulty in walking, not elsewhere classified; Z20.822 Contact with and (suspected) exposure to COVID-19; Z79.899 Other long term (current) drug therapy
CPT/HCPCS: 0241U; 36415; 51798; 80053; 81001; 82947; 85025; 85610; 87086; 96361; 96374; 97162; 99285; J2405

== ENCOUNTER 2022-06-07 12:34 | Emergency (ER) | payer MEDICARE, OTHER, SELFPAY ==
--- NOTE | ~2022-06-07 | CT_ITS ---
EXAMINATION: Head and cervical spine CT without IV contrast CLINICAL INFORMATION: Head trauma. Fall. COMPARISON: Previous cervical spine CT most recent August [address] most recent August 2021 TECHNIQUE: Axial images through the head and cervical spine without IV contrast. Sagittal and coronal reconstructions on the technologist workstation were performed. This CT examination was performed using dose optimization techniques as appropriate, variously including the following: *Automated exposure control *Adjustment of mA and/or kV according to patient size (this includes techniques or standardized protocols for targeted exams where dose is matched to indication/reason for exam; i.e. extremities or head) *Use of iterative reconstruction technique DLP 8 3 8 mg/cm FINDINGS: Head CT: There is no evidence of an extra-axial collection. There is no evidence of intra or extra-axial hemorrhage. The ventricles and extra-axial CSF spaces are prominent suggestive of mild generalized atrophy. There is nonspecific periventricular white matter disease. No mass, mass effect or infarct is seen. Review of bone windows is normal. No skull fracture. Visualized paranasal sinuses, mastoid air cells and middle ears are clear. Bilateral stable scalp lesions. Cervical spine CT: Bone alignment is normal. No fracture or dislocation. Degenerative spondylosis and degenerative disc disease at C2-C3 C3-C4 C5-C6 and C6-C7. Degenerative changes of the C1 dens articulation. Medial course of both carotid arteries. Right thyroid nodule. This is not completely imaged. This measures 1.7 cm and does not appear appreciably changed from 2020. Prevertebral soft tissues are otherwise normal. Peripheral or subpleural density in the superior segment of the left lower lobe near the pleural fissure axial image 55 series 4. This is similar to August [address]/CT cervical spine wo IV con IMPRESSION: Head CT: No acute findings Cervical spine: Degenerative changes. No fracture or dislocation.
--- NOTE | 2022-06-07 12:40 | ED_ITS ---
HPI - Fall General Chief Complaint: Fall Stated Complaint: FALL W/HEAD INJ,+THINNERS PER EMS Time Seen by Provider: 06/07/22 12:34 Source: patient, EMS and old records reviewed Mode of arrival: EMS Limitations: no limitations History of Present Illness HPI Narrative: 82 yo female with history of HFpEF, afib on Coumadin, aortic stenosis s/p aortic valve replacement, anxiety/depression, RA on MTX, HTN, HLD presents to the ER from home via EMS for evaluation of a mechanical fall with head strike. She states she was in her bathroom with her walker when she went to sit on the toilet she missed and fell onto her bottom and hit her head on the shower. She did not lose consciousness. She used [employer] to call 911. She reports some mild bilateral neck pain but denies headache. No other injuries or complaints on arrival. She declined a cervical collar. MD complaint: fall Onset (ago): minute(s) Fall from: standing Fall witnessed: no Place fall occurred: home Loss of consciousness: none Prolonged down time: no Symptoms prior to fall: none Context: tripped/slipped Location of injury: head Severity: mild Severity scale (1-10): 3 Quality: aching Associated symptoms (after fall): neck pain Related Data Home Medications Medication Instructions Recorded Confirmed methotrexate sodium 10 mg tablet 20 mg PO QWEEK 11/10/21 01/28/22 warfarin 1 mg tablet 1 mg PO Q2D 01/13/22 01/28/22 warfarin 1 mg tablet 2 tab PO Q2D 01/13/22 01/28/22 Previous Rx's Medication Instructions Recorded blood sugar diagnostic #250 ea 07/29/21 blood-glucose meter (OneTouch #1 ea 07/29/21 Ultra2 Meter kit) cholecalciferol (vitamin D3) 50 50 mcg PO DAILY 90 days #90 caps 08/12/21 mcg (2,000 unit) capsule simvastatin 20 mg tablet 20 mg PO DAILY 90 days #90 tabs 08/12/21 folic acid 1 mg tablet 1 mg PO DAILY 90 days #90 tabs 08/21/21 Hospital bed #1 ea 09/16/21 sertraline 25 mg tablet (Zoloft) 25 mg PO DAILY #30 tabs 12/08/21 furosemide 40 mg tablet 40 mg PO DAILY #90 tabs 12/31/21 metoprolol tartrate 25 mg tablet 12.5 mg PO BID 90 days #90 tabs 12/31/21 cefuroxime axetil 250 mg tablet 250 mg PO BID 7 days #14 tabs 01/29/22 enoxaparin 80 mg/0.8 mL 80 mg (0.8 mL) subcut Q12H #8 mL 04/28/22 subcutaneous syringe (Lovenox) rivaroxaban 20 mg tablet (Xarelto) 20 mg PO DAILY #30 tabs 05/06/22 Allergies Allergy/AdvReac Type Severity Reaction Status Date / Time shellfish derived Allergy Unknown itchy Verified 11/10/21 14:25 procaine [From Novocain] AdvReac Unknown makes Verified 11/10/21 14:25 patient itchy,puffy Review of Systems Review of Systems: Yes all other systems are reviewed and are negative [facility] Past Medical History Medical History (HFpEF) heart failure with preserved ejection fraction Acute pyelonephritis Anxiety and depression Atrial fibrillation CHF exacerbation Chronic anticoagulation Congestive heart failure CVA (cerebral vascular accident) Hypercholesterolemia Hypertension Lumbar vertebral fracture Nonrheumatic aortic valve stenosis Obesity (BMI 30-39.9) Pancytopenia Persistent atrial fibrillation Pneumonia Pulmonary hypertension Rash Rheumatoid arthritis Sepsis TIA (transient ischemic attack) Type 2 diabetes mellitus with hyperglycemia Uterine cancer Surgical History History of appendectomy History of colonoscopy History of left knee replacement History of right knee joint replacement History of transcatheter aortic valve replacement (TAVR) (~06/19/21) S/P ANTONIO-BSO Family History Family History Father Diabetes CAD (coronary artery disease) Mother Diabetes Hypertension Perforated ulcer Sister Diabetes Social History Social History Household Members: Spouse Housing: House Do you presently have visiting nurse or other home services: No Alcohol intake: never Patient Tobacco Use Status: Never used Tobacco Smoked in Last 30 Days: No e-Cigarette/Vaping Use: Never Used Second Hand Smoke Exposure: No Use of substances other than those prescribed or required for medical reasons: No Advance Directives: Yes Advance Directives on File: Yes Advance Directives Date on File: 08/31/21 service: No Current occupational status: retired Cognitive needs: Yes (cane, walker) Hearing needs: No Vision needs: Yes (glasses) Physical Exam Vital Signs: Vital Signs: Last Vital Signs Temp 98.4 F 06/07/22 14:23 Pulse 69 06/07/22 14:23 Resp 18 06/07/22 14:23 BP 182/76 H 06/07/22 14:23 Pulse Ox 97 06/07/22 14:23 O2 Del Method Room Air 06/07/22 14:23 BMI result Body Mass Index 31.3 Appearance: Alert. Oriented X3. No acute distress. Head: normocephalic, atraumatic. Eyes: Pupils equal, round and reactive to light. ENT: Pharynx normal. No tonsillar swelling or exudate. Neck: Normal inspection. Neck supple. Soft tissue tenderness bilaterally, no midline tenderness, normal ROM CVS: Normal heart rate and rhythm. Pulses normal. Respiratory: No respiratory distress. Breath sounds normal. Abdomen: Soft and nontender. +BS x4 Skin: Skin warm and dry. Normal skin color. Normal skin turgor. No rashes. Extremities: No lower extremity edema. No joint swelling. Neuro/psych: Oriented X 3. No motor deficit. No sensory deficit. CN II-XII intact. Normal speech and cognition. Course Reevaluation(s) Reevaluation #1: CT head and neck unremarkable. Pending PT evaluation. Will place patient in physician observation a this time pending PT evaluation. Time: 16:23 Medical Decision Making Medical Decision Making [facility] Narrative: 82 yo female presents to the ER for evaluation of mechanical fall in the bathroom today w/ headstrike, no LOC. c/o neck pain, has soft tissue tenderness but no midline tenderness. CT head/neck without acute traumatic injuries. PT consulted for evaluation - patient recently required acute rehab. Differential Diagnosis Differential Diagnoses: The differential diagnosis associated with the presentation includes concussion without LOC, closed head injury, cervical strain, doubt ICH/SAH, doubt traumatic neck injury Lab Data [facility] Lab Attestation statement: I reviewed the patient's lab results. 06/07/22 13:21 06/07/22 13:21 Labs: Lab Results 04/24/23 04/24/23 04/24/23 Range/Units 13:21 13:21 13:21 WBC 5.0 (4.8-10.8) X10*3/uL RBC 3.54 L (4.20-5.50) X10*6/uL Hgb 9.7 L (12.0-16.0) g/dl Hct 32.5 L (37.0-47.0) % MCV 91.8 (80.0-98.0) fL MCH 27.4 (27.0-33.0) pg MCHC 29.8 L (31.0-35.0) g/dl RDW 18.4 H (11.0-16.0) % Plt Count 188 D (160-400) X10*3/uL MPV 10.3 (9.4-12.3) fL Immature Gran % (Auto) 0.6 H (0.0-0.4) % Neut % (Auto) 71.4 (45-73) % Lymph % (Auto) 13.3 L (20-40) % [place] % (Auto) 10.3 (2-11) % Eos % (Auto) 3.4 (0-4) % Baso % (Auto) 1.0 (0-2) % Lymph # (Auto) 0.7 L (1.2-4.9) X10*3/uL [place] # (Auto) 0.5 (0.1-1.2) X10*3/uL Eos # (Auto) 0.2 (0.0-0.4) X10*3/uL Baso # (Auto) 0.1 (0.0-0.2) X10*3/uL Abs Immat Gran (auto) 0.03 (0.00-0.03) X10*3/uL Absolute Neuts (auto) 3.5 (2.0-8.3) x10*3/uL Absolute Nucleated RBC 0.000 (0.0-0.012) X10*3/uL Nucleated RBC % (auto) 0.0 (0.0-0.2) /100WBC PT 17.4 H (10.0-13.1) SEC INR 1.5 H (0.9-1.1) APTT 35.7 (26.0-36.4) SEC Sodium 141 (135-145) mmol/L Potassium 4.2 (3.3-5.1) mmol/L Chloride 103 (96-108) mmol/L Carbon Dioxide 30 H (22-29) mmol/L Anion Gap 12 (12-20) BUN 14 (9-16) mg/dL Creatinine 0.78 (0.5-1.4) mg/dL Estim Creat Clear Calc 47.4 Estimated GFR > 60 Random Glucose 118 H (60-115) mg/dL Calcium 8.9 (8.4-10.2) mg/dL Total Bilirubin 1.3 H (0.0-1.0) mg/dL Direct Bilirubin 0.5 (0.0-0.5) mg/dL AST 18 (5-31) U/L ALT 6 (0-31) U/L Alkaline Phosphatase 132 H (39-117) U/L Total Protein 7.1 (6.5-8.0) g/dL Albumin 3.4 L (3.5-5.0) g/dL Independent Interpretation I performed an independent interpretation of an: CT Scan Interpretation: CT without acute bleed or stroke Radiology Impression Discussion of test interpretation with radiology: I have reviewed the radiol ogist's reading. Radiologist Impression: ?CT/CT head/brain wo IV con IMPRESSION: Head CT: No acute findings ? Cervical spine: Degenerative changes. No fracture or dislocation. Independent Historian Clinical information obtained from an independent historian. History obtained from or confirmed by: EMS External Record Review External record reviewed: Office record, Outpatient record, Prior outpatient labs and Prior outpatient radiology Prescription Management I considered prescription management with: Pain Medication Chronic Conditions Patient?s care impacted by: Hypertension and Other (afib on anticoagulation) Critical Care Time Critical Care Time Critical Care Time: No Discharge Plan Discharge Clinical Impression: Accident due to mechanical fall without injury Patient Disposition: Still a Patient Instructions: Fall Prevention for Older Adults (ED) Additional Instructions: Your CT scans did not show any traumatic injuries. Your coumadin level (INR) was low at 1.5. Prescriptions: No Action cholecalciferol (vitamin D3) 50 mcg (2,000 unit) capsule 50 mcg PO DAILY 90 Days Qty: 90 3RF simvastatin 20 mg tablet 20 mg PO DAILY 90 Days Qty: 90 2RF folic acid 1 mg tablet 1 mg PO DAILY 90 Days Qty: 90 3RF (DME) Hospital bed See Rx Instructions .Route .MEDSUPPLY Qty: 1 0RF Rx Instructions: As directed sertraline [Zoloft] 25 mg tablet 25 mg PO DAILY Qty: 30 2RF furosemide 40 mg tablet 40 mg PO DAILY Qty: 90 3RF metoprolol tartrate 25 mg tablet 12.5 mg PO BID 90 Days Qty: 90 2RF enoxaparin [Lovenox] 80 mg/0.8 mL syringe 80 mg subcut Q12H Qty: 8 1RF Xarelto 20 mg tablet 20 mg PO DAILY Qty: 30 2RF Rx Instructions: must administer with evening meal warfarin 1 mg tablet 2 tab PO Q2D warfarin 1 mg tablet 1 mg PO Q2D Rx Instructions: or as directed cefuroxime axetil 250 mg tablet 250 mg PO BID 7 Days Qty: 14 0RF methotrexate sodium 10 mg tablet 20 mg PO QWEEK (DME) blood-glucose meter [OneTouch Ultra2 Meter] Kit See Rx Instructions .ROUTE .MEDSUPPLY Qty: 1 0RF Rx Instructions: As directed check the blood sugar once a day [place] [place] blood sugar diagnostic Strip See Rx Instructions .ROUTE .MEDSUPPLY Qty: 250 3RF Rx Instructions: Twice a day Referrals: Po,Riccardo Oropeza MD [Primary Care Provider] -
[2022-06-07 12:45] VITALS: BP 174/62; BP 199/108; PULSE 51; PULSE 69; RESP 18; O2SAT 96; O2SAT 99; BMI 31.3
[2022-06-07 12:53] VITALS: TEMP 36.7
--- NOTE | 2022-06-07 13:01 | PC.NURSE ---
pt coming from home after a fall. she reports tripping in her bathroom, hitting the back of her head. no lac, ecchimosis. reporting 3/10 discomfort. alert and oriented otherwise. reports being on warfaring for a.fib
[2022-06-07 13:29] LABS: MANUAL DIFF FLAG NO
[2022-06-07 13:32] LABS: Basophils Absolute Auto 0.1 X10*3/uL (0.0-0.2); Eosinophils Absolute Auto 0.2 X10*3/uL (0.0-0.4); Eosinophils Percent Auto 3.4 % (0-4); Hematocrit 32.5 % (37.0-47.0); Hemoglobin 9.7 g/dl (12.0-16.0); Imm Gran Abs Auto 0.03 X10*3/uL (0.00-0.03); Imm Gran Pct Auto 0.6 % (0.0-0.4); Lymphocytes Absolute Auto 0.7 X10*3/uL (1.2-4.9); Lymphocytes Percent Auto 13.3 % (20-40); Mean Corpuscular HGB Conc 29.8 g/dl (31.0-35.0); Mean Corpuscular Hemoglobin 27.4 pg (27.0-33.0); Mean Corpuscular Volume 91.8 fL (80.0-98.0); Mean Platelet Volume 10.3 fL (9.4-12.3); Monocytes Absolute Auto 0.5 X10*3/uL (0.1-1.2); Monocytes Percent Auto 10.3 % (2-11); Neutrophils Absolute Auto 3.5 x10*3/uL (2.0-8.3); Neutrophils Percent Auto 71.4 % (45-73); Platelet Count 188 X10*3/uL (160-400); Red Blood Count 3.54 X10*6/uL (4.20-5.50); Red Cell Distribution Width 18.4 % (11.0-16.0)
[2022-06-07 13:46] LABS: INTERNATIONAL NORM RATIO 1.5 (0.9-1.1); Prothrombin Time 17.4 SEC (10.0-13.1)
[2022-06-07 13:47] LABS: Alanine Aminotransferase 6 U/L (0-31); Albumin Level 3.4 g/dL (3.5-5.0); Alkaline Phosphatase 132 U/L (39-117); Anion Gap 12 (12-20); Aspartate Amino Transferase 18 U/L (5-31); Bilirubin Direct 0.5 mg/dL (0.0-0.5); Bilirubin Total 1.3 mg/dL (0.0-1.0); Blood Urea Nitrogen 14 mg/dL (9-16); Calcium 8.9 mg/dL (8.4-10.2); Carbon Dioxide 30 mmol/L (22-29); Chloride 103 mmol/L (96-108); Creatinine Clr Calc Pharmacy 47.4; Estimated Glomerular Filt Rate > 60; Glucose Random 118 mg/dL (60-115); Potassium 4.2 mmol/L (3.3-5.1); Sodium 141 mmol/L (135-145); Total Protein 7.1 g/dL (6.5-8.0)
[2022-06-07 13:48] LABS: Partial Thromboplastin Time 35.7 SEC (26.0-36.4)
[2022-06-07 14:23] VITALS: BP 182/76; PULSE 69; RESP 18; TEMP 36.9; O2SAT 97
[2022-06-07 16:17] VITALS: BP 182/76; PULSE 69; O2SAT 97
--- NOTE | 2022-06-07 17:55 | MHC.CM.ED ---
CM met with patient. PT is recommending home PT. Pt is medically cleared. Pt is A&Ox4. Lives with and dog. HCP on file. Uses a cane/walker. Has PROTECTION CONSULTANT services from [facility] 2 days/week/4 hours/day. Her also has PROTECTION CONSULTANT from [facility] twice a week. Pt currently has [facility] and tells CM they are coming to her home tomorrow. Pt feels safe at home and is happy to go home. CM will call her step daughter to pick her up. Referral to [facility] to continue with Home PT. Uploaded current PT evaluation. D/C plan: Home with current PT services.
== END 2022-06-07 17:48 | disposition home or self-care (01) ==
PROVIDERS: Physician Assistant; Emergency Provider Emergency Medicine; PCP Internal Medicine
DX: M54.2 Cervicalgia (principal); Z91.81 History of falling; E11.9 Type 2 diabetes mellitus without complications; I11.0 Hypertensive heart disease with heart failure; I50.32 Chronic diastolic (congestive) heart failure; E78.00 Pure hypercholesterolemia, unspecified; I48.19 Other persistent atrial fibrillation; Z95.2 Presence of prosthetic heart valve; Z79.01 Long term (current) use of anticoagulants
CPT/HCPCS: 36415; 70450; 72125; 80048; 80076; 85025; 85610; 85730; 97161; 99284

== ENCOUNTER 2022-09-01 09:59 | Outpatient (AMB) | payer MEDICARE, OTHER, SELFPAY ==
--- NOTE | 2022-09-01 10:32 | MHC.OFFVISCO ---
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 Allergies shellfish derived Allergy (Unknown, Verified 09/01/22 10:05) itchy procaine [From Novocain] Adverse Reaction (Unknown, Verified 09/01/22 10:05) makes patient itchy,puffy Medication List - Last Reconciled 09/01/22 by Marisol Joiner RN blood sugar diagnostic Twice a day blood-glucose meter (RatePointTouch Ultra2 Meter kit) As directed check the blood sugar once a day cholecalciferol (vitamin D3) 50 mcg PO DAILY 90 days folic acid 1 mg PO DAILY 90 days furosemide 40 mg PO DAILY [Hospital bed As directed] [hospital mattress As directed] methotrexate sodium 20 mg PO QWEEK metoprolol tartrate 12.5 mg (1/2 x 25 mg) PO BID 90 days sertraline (Zoloft) 25 mg PO DAILY simvastatin 20 mg PO DAILY 90 days warfarin 2 mg (2 x 1 mg) PO DAILY Is last menstrual period known: No Post menopausal: Yes Patient : No Nursing Note INR 1.9-?? out of therapeutic range Medications and supplements reviewed Patient status: pt longstanding warfarin usage- new admit to acs. Medications or supplements: reviewed Diet: appetite is good Denies any signs and symptoms of bleeding or clotting or unusual bruising Bleeding, bruising, clotting discussed including s/s Nutritional guidance given: food list provided and reviewed with pt, no greens today, have a red today Dose: pt states taking 2mg daily, instructed to take 3mg today then cont 2mg daily F/U INR Date : 1 week? Patient verbalizing understanding of instructions given. pt prev patient at [facility]. pt on warfarin for afib educational material provided and reviewed with pt. pt med list reviewed and pmh reviewed. pt to acs in wheelchair, states able to amb short distances with walker. pt inpatient at [facility] and pt states to snf for rehab today or tomm. pt to acs by pvta which she arranges. pt states last poc inr by vna approx 2-3 weeks ago was 2.0. 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 Illness/Depression: Yes (anxiety and depression) Is last menstrual period known: No Post menopausal: Yes Patient : No Surgeries: c-sections, bilat knee replacements, dental extractions Anti-Coag. Education Record Teaching Recipient: Patient What is the easiest way to learn: Reading, Listening, Demonstration and Education Packet Barriers to Learning Identified: Physical Physical: Memory and Mobility List any additional concerns (family/financial etc.): recent hospitalization- going to rehab today Significant other who can be involved in Teaching Process when Indicated: chinyere Sam If Barriers are identified, describe method to overcome: pt uses pvta for acs appt Research Chief Engineer Required: No Readiness To Learn: Good Teaching Methods: Discussion, Handout and Teach Back Response to Teaching: Reinforcement Needed Re-Education needs: Reinforce Content Education Intervention/Brief Description of Teaching 1. Able to state reason for taking Warfarin: Yes 2. Able to state Pain Management techniques: Yes 3. Able to state action of Warfarin.: Yes Able to state current dose, pill color, how and when Warfarin to be taken: Yes Able to identify signs of bleeding &/or clotting: Yes 4. Able to identify need to keep diet consistent in regard to vitamin K intake: Yes Able to state restriction on alcohol: Yes 5. Able to state need for compliance with PT/INR testing: Yes Describes rationale for carrying ID and wearing Medic Alert bracelet: Yes Patient instructed to monitor for excess bruising or signs/symptoms of clotting or bleeding: Yes 6. Able to state that there are drugs that interact with Warfin: Yes 7. Able to state the need to seek medical attention when illness/injury occur.: Yes Describes the need to avoid activities with high risk of injury: Yes 8. Able to state duration of treatment: Yes 9. Demonstrates understanding of notifying all providers of pending dental surgical, or other invasive procedures: Yes 10. Able to state Home Care instructions Questionnaires HAS-BLED Does the patient had uncontrolled Hypertension?: No Does the patient have renal disease?: No Does the patient have liver disease?: No Does the patient have a history of stroke?: No Has the patient had major bleeding or predisposition to bleeding?: No Does the patient have labile INRs?: Yes Is the patient over 65 years of age?: Yes Is the patient on medications that gives them a predisposition to bleeding?: Yes Does the patient use alcohol?: Yes HAS-BLED Score: 4 CHADSVASC Age: 75 or over Gender: Female Does the patient have a history of CHF?: Yes Does the patient have a history of Hypertension?: Yes Does the patient have a history of Stroke/TIA/Thromboembolism?: Yes Does the patient have a history of Vascular Disease (prior FL, PAD or aortic plaque)?: No Does the patient have a history of Diabetes?: Yes CHADS VACS Score: 8 Sha Prediction Score Rsk VTE Active Cancer: No Previous VTE, excluding superficial vein thrombosis: No Reduced mobility: Yes Already known Thrombophilic Condition: No With-in last month Trauma and/or Surgery: No Elderly 70 year or older: Yes Heart and/or Respiratory Failure: Yes Acute Myocardial infarction and/or Ischemic Stroke: No Acute Infection and/or Rheumatologic Disorder: Yes Obesity (BMI 30 or greater): Yes Ongoing Hormonal Treatment: No Score: 7 Sha Score less than 4; Low Risk of VTE Sha Score 4 or greater; High Risk of VTE Coding Level of Care Code New Patient Level 2 Diagnoses Current use of anticoagulant therapy Z79.01 Results AMB INR Fingerstick AMB INR Fingerstick 1.9 Last Edit by Marisol Joiner RN on 09/01/22 10:58 Assessment & Plan Assessment & Plan (1) Current use of anticoagulant therapy: Code(s): 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 Category: Medical Orders: Orders AMB INR Today Z79.01 - [facility]FP (current) use of anticoagulants Medications: Changed From warfarin or as directed 1 mg PO Q2D 30 tabs 0RF I48.0 - Paroxysmal atrial fibrillation, I48.19 - Other persistent atrial fibrillation, 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, Z95.2 - Presence of prosthetic heart valve To warfarin or as directed 2 mg See Protocol PO DAILY 30 tabs 0RF I48.0 - Paroxysmal atrial fibrillation, I48.19 - Other persistent atrial fibrillation, 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
[2022-09-01 10:57] LABS: Prothrombin Time Whole Bld POC 23.1 sec (11.1-13.5); ~PT, ~INR - Anti Coag Clinic 1.9 (0.9-1.1)
== END 2022-09-01 11:25 | disposition home or self-care (01) ==
LOC: HO.ACS 09:59
PROVIDERS: PCP Internal Medicine; Visit Provider Internal Medicine
DX: Z79.01 Long term (current) use of anticoagulants (principal)

== ENCOUNTER → 2022-09-01 09:59 | Outpatient (BNVA) | payer MEDICARE, OTHER, SELFPAY | PROVIDERS: PCP Internal Medicine; Visit Provider Internal Medicine | DX: I48.19 Other persistent atrial fibrillation (principal); Z79.01 Long term (current) use of anticoagulants; Z51.81 Encounter for therapeutic drug level monitoring | CPT/HCPCS: 85610; 99202 ==

== ENCOUNTER 2022-09-08 09:37 | Outpatient (AMB) | payer MEDICARE, OTHER, SELFPAY ==
[2022-09-08 09:44] LABS: Prothrombin Time Whole Bld POC 23.7 sec (11.1-13.5)
--- NOTE | 2022-09-08 09:55 | MHC.OFFVISCO ---
Intake Intake Visit Reasons: Anticoagulation Allergies shellfish derived Allergy (Unknown, Verified 09/08/22 09:39) itchy procaine [From Novocain] Adverse Reaction (Unknown, Verified 09/08/22 09:39) makes patient itchy,puffy Medication List - Last Reconciled 09/08/22 by Katherine Segura RN blood sugar diagnostic Twice a day blood-glucose meter (OneTouch Ultra2 Meter kit) As directed check the blood sugar once a day cholecalciferol (vitamin D3) 50 mcg PO DAILY 90 days folic acid 1 mg PO DAILY 90 days furosemide 40 mg PO DAILY [Hospital bed As directed] [hospital mattress As directed] methotrexate sodium 20 mg PO QWEEK metoprolol tartrate 12.5 mg (1/2 x 25 mg) PO BID 90 days sertraline (Zoloft) 25 mg PO DAILY simvastatin 20 mg PO DAILY 90 days warfarin 2 mg See Protocol PO DAILY Nursing Note NO CP,SOB,DIET/MED CHANGES,FALLS OR SX OF BLEEDING. INCREASE WEEKLY DOSE SLIGHTLY AND FOLLOW-UP IN 1 WEEK. GOOD UNDERSTANDING OF DOSIBNG INSTR. 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
== END 2022-09-08 09:58 | disposition home or self-care (01) ==
LOC: HO.ACS 09:37
PROVIDERS: PCP Internal Medicine; Visit Provider Internal Medicine
DX: Z79.01 Long term (current) use of anticoagulants (principal)

== ENCOUNTER → 2022-09-08 09:37 | Outpatient (BNVA) | payer MEDICARE, OTHER, SELFPAY | PROVIDERS: PCP Internal Medicine; Visit Provider Internal Medicine | DX: I48.0 Paroxysmal atrial fibrillation (principal); Z79.01 Long term (current) use of anticoagulants; Z51.81 Encounter for therapeutic drug level monitoring | CPT/HCPCS: 85610; 99211 ==

== ENCOUNTER 2022-09-15 10:09 | Outpatient (AMB) | payer MEDICARE, OTHER, SELFPAY ==
[2022-09-15 10:19] LABS: Prothrombin Time Whole Bld POC 26.9 sec (11.1-13.5); ~PT, ~INR - Anti Coag Clinic 2.2 (0.9-1.1)
--- NOTE | 2022-09-15 10:25 | MHC.OFFVISCO ---
Intake Intake Visit Reasons: Anticoagulation Allergies shellfish derived Allergy (Unknown, Verified 09/15/22 10:10) itchy procaine [From Novocain] Adverse Reaction (Unknown, Verified 09/15/22 10:10) makes patient itchy,puffy Medication List - Last Reconciled 09/15/22 by Tammy Baltazar RN blood sugar diagnostic Twice a day blood-glucose meter (OneTouch Ultra2 Meter kit) As directed check the blood sugar once a day cholecalciferol (vitamin D3) 50 mcg PO DAILY folic acid 1 mg PO DAILY furosemide 40 mg PO DAILY [Hospital bed As directed] [hospital mattress As directed] methotrexate sodium mg PO metoprolol tartrate 12.5 mg (1/2 x 25 mg) PO BID 90 days sertraline (Zoloft) 25 mg PO DAILY simvastatin 20 mg PO DAILY warfarin 2 mg See Protocol PO DAILY Nursing Note INR: 2.2 in therapeutic range Medications and supplements reviewed No changes in health, diet, medications, or supplements, Denies any signs and symptoms of bleeding or bruising or clotting. Bleeding, bruising, clotting discussed CHRONIC EDEMA IN EFFECTED LEG DISCUSSED ANKLE PUMPS TO HELP WITH EDEMA AND ROM EXERCISES THROUGH OUT THE DAY, ENC TO DISCUSS WITH MD ALSO Nutritional guidance given Dose: 3MG X 1 DAY/ 2MG X 6 DAYS F/U INR: 2 WEEKS Patient verbalizes understanding of instructions given DAUGHTER CALLED WITH PT RESULTS AND DOSING - AND NEXT APPT Anti-Coag Initial Assessment Social Hx Patient Tobacco Use Status: Never used Tobacco alcohol intake: current Alcohol intake frequency: other (very rarely) Cardiovascular Hx: HTN, CHF, Arrhythmias and Other (aortic valve replacement, afib, arotic valve stenosis) Lung Disease HX: Other (pulmonary hypertension) Endocrine Hx: Diabetes Musculoskeletal Hx: Arthritis (rheumatiod ) Blood Disorder Hx: Anemia and Hyperlipidemia GI Hx: Other (constipation) Hx: Other (urinary incont, dysuria, hx ureteral calculus) Neurological Hx: Stroke/TIA (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
== END 2022-09-15 10:38 | disposition home or self-care (01) ==
LOC: HO.ACS 10:09
PROVIDERS: PCP Internal Medicine; Visit Provider Internal Medicine
DX: Z79.01 Long term (current) use of anticoagulants (principal)

== ENCOUNTER → 2022-09-15 10:09 | Outpatient (BNVA) | payer MEDICARE, OTHER, SELFPAY | PROVIDERS: PCP Internal Medicine; Visit Provider Internal Medicine | DX: I48.19 Other persistent atrial fibrillation (principal); Z79.01 Long term (current) use of anticoagulants; Z51.81 Encounter for therapeutic drug level monitoring | CPT/HCPCS: 85610; 99211 ==

== ENCOUNTER 2022-09-25 02:39 | Inpatient (IN) | payer MEDICARE, OTHER, SELFPAY ==
[2022-09-25] VITALS (10 sets, daily range): BP systolic 108–199; BP diastolic 56–86; PULSE 65–80; RESP 15–22; TEMP -13.1–37; O2SAT 91–98; BMI 33.2
--- NOTE | ~2022-09-25 | XR_ITS ---
EXAMINATION: XR CHEST CLINICAL INFORMATION: Shortness of breath. COMPARISON: 09/25/2022 chest radiographs. TECHNIQUE: Frontal view of the chest was obtained. FINDINGS: The lungs are clear. The heart shows an aortic valve prosthesis in place. The mediastinal structures are unremarkable. Severe glenohumeral degenerative joint changes are seen. XR/XR chest 1V IMPRESSION: No acute cardiopulmonary process.
--- NOTE | ~2022-09-25 | XR_ITS ---
EXAMINATION: XR HIP, LEFT CLINICAL INFORMATION: Pain COMPARISON: None available. TECHNIQUE: Two views of the left hip. FINDINGS: No fracture. Alignment is anatomic. Hip joint space is maintained. Soft tissues are unremarkable. XR/XR hip LT min 2V IMPRESSION: No significant abnormality identified.
--- NOTE | ~2022-09-25 | XR_ITS ---
EXAMINATION: XR CHEST CLINICAL INFORMATION: Chest pain COMPARISON: 01/14/2022 TECHNIQUE: 2 views of the chest were obtained. FINDINGS: The lung volumes are low. The cardiomediastinal silhouette is stable. There is pulmonary vascular congestion. There is no focal consolidation or pleural fusion. There is bilateral glenohumeral degenerative change. The soft tissues are unremarkable XR/XR chest 2V IMPRESSION: Pulmonary vascular congestion which was seen previously. No focal consolidation or pleural effusion.
[2022-09-25 02:58] LABS: Glucose, Whole Blood 118 mg/dL (60-115)
[2022-09-25 03:41] LABS: MANUAL DIFF FLAG NO
[2022-09-25 03:42] LABS: Basophils Percent Auto 0.4 % (0-2); Eosinophils Absolute Auto 0.3 X10*3/uL (0.0-0.4); Eosinophils Percent Auto 3.7 % (0-4); Hematocrit 33.8 % (37.0-47.0); Hemoglobin 10.3 g/dl (12.0-16.0); Imm Gran Abs Auto 0.03 X10*3/uL (0.00-0.03); Imm Gran Pct Auto 0.4 % (0.0-0.4); Lymphocytes Absolute Auto 1.1 X10*3/uL (1.2-4.9); Lymphocytes Percent Auto 13.4 % (20-40); Mean Corpuscular HGB Conc 30.5 g/dl (31.0-35.0); Mean Corpuscular Hemoglobin 28.5 pg (27.0-33.0); Mean Corpuscular Volume 93.4 fL (80.0-98.0); Mean Platelet Volume 10.1 fL (9.4-12.3); Monocytes Absolute Auto 0.8 X10*3/uL (0.1-1.2); Monocytes Percent Auto 9.7 % (2-11); Neutrophils Absolute Auto 5.8 x10*3/uL (2.0-8.3); Neutrophils Percent Auto 72.4 % (45-73); Platelet Count 191 X10*3/uL (160-400); Red Blood Count 3.62 X10*6/uL (4.20-5.50); Red Cell Distribution Width 15.2 % (11.0-16.0); White Blood Count 7.9 X10*3/uL (4.8-10.8)
[2022-09-25 03:56] LABS: Alanine Aminotransferase < 5 U/L (0-31); Albumin Level 3.4 g/dL (3.5-5.0); Alkaline Phosphatase 111 U/L (39-117); Anion Gap 14 (12-20); Aspartate Amino Transferase 12 U/L (5-31); Blood Urea Nitrogen 17 mg/dL (9-16); Calcium 9.6 mg/dL (8.4-10.2); Carbon Dioxide 29 mmol/L (22-29); Chloride 103 mmol/L (96-108); Creatinine Clr Calc Pharmacy 53.7; Estimated Glomerular Filt Rate > 60; Glucose Random 118 mg/dL (60-115); Potassium 4.2 mmol/L (3.3-5.1); Sodium 142 mmol/L (135-145); Total Protein 8.1 g/dL (6.5-8.0)
[2022-09-25 04:04] LABS: Troponin-I High Sensitivity 13.4 ng/L (<3.5-17.0)
--- NOTE | 2022-09-25 04:46 | ED.GENADULT ---
HPI - General Adult General Chief complaint: General Medical Stated complaint: Weakness/ Heavy Chest Pain Time Seen by Provider: 09/25/22 04:15 Source: patient Mode of arrival: EMS Limitations: no limitations History of Present Illness HPI narrative: Patient comes to the emergency room complaining of acute on chronic swelling of the left lower extremity and unable to sit up. Patient states that she has had multiple episodes over the years of left lower extremity swelling. Patient has had ultrasounds in the past, last and December of 2021, negative for DVT. Patient states that she has no calf pain, only feels that her skin is tight and looks more red than usual. Patient states that she is feeling too weak and was unable to get up from the recliner. Patient had the phone by her and called 911 Related Data Home Medications Medication Instructions Recorded Confirmed acetaminophen 500 mg capsule 1,000 mg PO Q6H PRN Pain 09/15/22 11/25/22 warfarin 1 mg tablet 2 mg PO SUMOTUTHFRSA@1800 09/25/22 12/08/22 warfarin 1 mg tablet 3 mg PO WE@1800 09/25/22 12/08/22 Previous Rx's Medication Instructions Recorded blood sugar diagnostic #250 ea 07/29/21 blood-glucose meter (OneTouch #1 ea 07/29/21 Ultra2 Meter kit) Hospital bed #1 ea 09/16/21 metoprolol tartrate 25 mg tablet 12.5 mg (1/2 x 25 mg) PO BID 90 07/26/22 days #90 tabs hospital mattress #1 ea 08/10/22 oxycodone 5 mg tablet 2.5 mg (1/2 x 5 mg) PO BID PRN 10/07/22 pain (scale score 7-10) #10 tabs furosemide 40 mg tablet 40 mg PO BID 90 days #180 tabs 11/22/22 blood sugar diagnostic (OneTouch #100 ea 12/01/22 Ultra Test strips) blood-glucose meter #1 ea 12/01/22 lancets #100 ea 12/01/22 cholecalciferol (vitamin D3) 50 50 mcg PO DAILY #90 caps 12/08/22 mcg (2,000 unit) capsule folic acid 1 mg tablet 1 mg PO DAILY #90 tabs 12/08/22 sertraline 25 mg tablet (Zoloft) 25 mg PO DAILY #90 tabs 12/08/22 simvastatin 20 mg tablet 20 mg PO DAILY #90 tabs 12/08/22 Allergies Allergy/AdvReac Type Severity Reaction Status Date / Time shellfish derived Allergy Unknown itchy Verified 12/08/22 09:59 procaine [From Novocain] AdvReac Unknown makes Verified 12/08/22 09:59 patient itchy,puffy Review of Systems Review of Systems: Constitutional : No Weight loss, No Fever, No Chills, No Night Sweats, complaining of weakness, unable to stand by herself ENT/Mouth : No Hearing loss, No Ear Pain, No Nasal Congestion, No Sinus Pain, No Hoarseness, No sore throat, No Rhinorrhea, No Swallowing Difficulty Eyes: No Eye Pain, No Swelling, No Redness, No Foreign Body, No Discharge, No Vision Changes Cardiovascular : No Chest Pain, No SOB, No Dyspnea on Exertion, No Orthopnea, No Edema, No Palpitations Respiratory : No Cough, No Sputum, No Wheezing, No Smoke Exposure, No Dyspnea Gastrointestinal : No Nausea, No Vomiting, No Diarrhea, No Constipation, No abdominal Pain, No Hematochezia, No Melena Genitourinary : no irregular bleeding, No Dysuria, No Urinary Frequency, No Hematuria, No Urinary Incontinence, No Urgency, No Flank Pain, No Urinary Flow Changes, No Hesitancy Musculoskeletal : No joint pain, No Myalgias, No Joint Swelling Skin : Complaining of redness in the left lower extremity Neuro : No Weakness, No Numbness, No Paresthesias, No Loss of Consciousness, No Dizziness, No Headache Psych : No Anxiety/Panic, No Depression, No SI/HI/AH/VH, No Social Issues, Heme/Lymph: No Bruising, No Bleeding,No Lymphadenopathy Endocrine : No Polyuria, No Polydipsia, No Temperature Intolerance PMFSH Past Medical History Medical History Chronic hypoxemic respiratory failure Rash Constipation Impaired mobility and ADLs Pulmonary hypertension Chronic diastolic (congestive) heart failure Pancytopenia Congestive heart failure Persistent atrial fibrillation Pulmonary hypertension Nonrheumatic aortic valve stenosis CHF exacerbation Acute pyelonephritis Chronic anticoagulation Pneumonia (HFpEF) heart failure with preserved ejection fraction Sepsis Lumbar vertebral fracture CVA (cerebral vascular accident) TIA (transient ischemic attack) Uterine cancer Anxiety and depression Obesity (BMI 30-39.9) Rheumatoid arthritis Hypercholesterolemia Hypertension Atrial fibrillation Type 2 diabetes mellitus with hyperglycemia Surgical History Status post transcatheter aortic valve replacement History of transcatheter aortic valve replacement (TAVR) (~06/19/21) History of colonoscopy History of appendectomy History of right knee joint replacement History of left knee replacement S/P ANTONIO-BSO Family History Family History Father Diabetes CAD (coronary artery disease) Mother Diabetes Hypertension Perforated ulcer Sister Diabetes Social History Social History Household Members: Significant Other Housing: Group Home Housing Other:: lives with spouse Do you presently have visiting nurse or other home services: No Alcohol intake: never Patient Tobacco Use Status: Never used Tobacco e-Cigarette/Vaping Use: Never Used Second Hand Smoke Exposure: No Advance Directives Date on File: 09/03/21 service: No Current occupational status: retired 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[employer], [employer] Current occupational exposures/hazards: No Cognitive needs: Yes (cane, walker) Hearing needs: No Vision needs: Yes (glasses) Physical Exam ED Vital Signs: Vital Signs - 24 hr 09/25/22 02:40 09/25/22 03:44 09/25/22 05:22 Temperature 98.6 F 98.2 F 97.7 F Pulse Rate 74 79 76 Respiratory Rate 15 17 18 Blood Pressure 199/69 H 157/56 H 158/68 H Pulse Oximetry 96 93 93 Oxygen Delivery Method Room Air Room Air Room Air 09/25/22 08:28 Temperature 8.4 F L Pulse Rate 69 Respiratory Rate 21 H Blood Pressure 131/64 Pulse Oximetry 93 Oxygen Delivery Method Room Air BMI result Body Mass Index 33.2 Medications Administered Discontinued Medications Generic Name Dose Route Start Last Admin Trade Name Freq PRN Reason Stop Dose Admin Acetaminophen 975 mg 09/25/22 04:32 09/25/22 05:14 Acetaminophen 325 Mg Tablet PO 09/25/22 04:33 975 mg ONCE ONE Administration Acetaminophen 650 mg 09/25/22 12:48 09/29/22 05:20 Acetaminophen 325 Mg Tablet PO 650 mg Q6H PRN Administration Pain, Mild (Pain Scale 1-3) Albuterol Sulfate 2.5 mg 09/27/22 12:00 09/27/22 11:49 Albuterol Sulfate (0.083%) 2.5 Mg/3 Ml Vial.Neb INHALE 2.5 mg RQ4H WHILE AWAKE KIKI Administration Amlodipine Besylate 5 mg 09/25/22 16:50 09/29/22 09:18 Amlodipine Besylate 5 Mg Tablet PO 5 mg DAILY KIKI Administration Protocol Atorvastatin Calcium 10 mg 09/25/22 21:00 09/28/22 21:44 Atorvastatin Calcium 10 Mg Tablet PO 10 mg BEDTIME KIKI Administration Cephalexin HCl 500 mg 09/25/22 04:51 09/25/22 05:14 Cephalexin 500 Mg Capsule PO 09/25/22 04:52 500 mg ONCE ONE Administration Doxycycline Monohydrate 100 mg 09/25/22 04:53 09/25/22 05:14 Doxycycline Monohydrate 100 Mg Capsule PO 09/25/22 04:54 100 mg ONCE ONE Administration Folic Acid 1 mg 09/25/22 13:00 09/29/22 09:08 Folic Acid 1 Mg Tablet PO Not Given DAILY KIKI Furosemide 40 mg 09/25/22 13:00 09/28/22 09:27 Furosemide 40 Mg Tablet PO 40 mg DAILY KIKI Administration Protocol Furosemide 40 mg 09/27/22 11:24 09/27/22 11:32 Furosemide 40 Mg/4 Ml Vial IVPUSH 09/27/22 11:25 40 mg STAT STA Administration Protocol Furosemide 20 mg 09/28/22 18:00 09/29/22 09:06 Furosemide 20 Mg/2 Ml Vial IVPUSH 20 mg BID@0900,1800 KIKI Administration Protocol Ceftriaxone Sodium 1 gm/ 50 mls @ 100 mls/hr 09/25/22 09:12 09/25/22 10:18 Sodium Chloride IV 09/25/22 09:41 Infused ONCE ONE Infusion Sodium Chloride 1,000 mls @ 999 mls/hr 09/25/22 10:14 09/25/22 13:03 Ns IV 09/25/22 11:14 Infused .Q1H1M STA Infusion Ceftriaxone Sodium 1 gm/ 50 mls @ 100 mls/hr 09/26/22 09:00 09/29/22 10:15 Sodium Chloride IV Infused Q24H KIKI Infusion Metoprolol Tartrate 12.5 mg 09/25/22 13:00 09/29/22 09:18 Metoprolol Tartrate 12.5 Mg Halftab PO 12.5 mg BID [facility] Administration Protocol Multi-Ingred Cream/Lotion/Oil/Oint 1 appl 09/25/22 21:00 09/29/22 07:00 Mineral Oil/Petrolatum,White 106 Gm Tube TOPICAL Not Given BEDTIME [facility] Protocol Sertraline HCl 25 mg 09/25/22 13:00 09/29/22 09:18 Sertraline Hcl 25 Mg Tablet PO 25 mg DAILY [facility] Administration Sodium Chloride 3 ml 09/25/22 16:00 09/29/22 09:08 0.9 % Sodium Chloride Flush 3 Ml Syringe IVFLUSH 3 ml QSHIFT [facility] Administration Tramadol HCl 50 mg 09/25/22 22:04 09/25/22 22:43 Tramadol Hcl 50 Mg Tablet PO 09/25/22 22:05 50 mg ONCE ONE Administration Vitamin D 50 mcg 09/25/22 13:00 09/29/22 09:08 Cholecalciferol (Vitamin D3) 25 Mcg Tablet PO Not Given DAILY [facility] Warfarin Sodium 2 mg 09/25/22 18:00 09/25/22 17:34 Warfarin Sodium 2 Mg Tablet PO 2 mg SUMOTUTHFRSA@1800 [facility] Administration Warfarin Sodium 3 mg 09/26/22 18:00 09/26/22 17:35 Warfarin Sodium 3 Mg Tablet PO 3 mg DAILY@1800 [facility] Administration Warfarin Sodium 5 mg 09/27/22 18:00 09/27/22 17:33 Warfarin Sodium 5 Mg Tablet PO 09/27/22 18:01 5 mg ONCE@1800 ONE Administration Warfarin Sodium 5 mg 09/28/22 18:00 09/28/22 17:41 Warfarin Sodium 5 Mg Tablet PO 5 mg DAILY@1800 [facility] Administration Medical Decision Making Medical Decision Making [facility] Narrative: -patient has mild cellulitis, given Keflex and doxycycline p.o. -CT scan of the hip shows no significant abnormality -chest x-ray: No abnormality -UA pending -patient cannot get up, states she is too weak, PT case management pending 928: I assumed care of this patient from my colleague, Dr. Lor Rodas at 07:00 hours. I obtained the following history: 82-year-old female who states that she is not been eating for 3 days. She states that she was too weak to get up and feed herself she states she has been drinking orange juice. She states she felt hot and cold at home and had chills but did not take a temperature. She states that she has been constipated. She states that she is very weak, very fatigued and unable to stand secondary to her weakness. She states that she is incontinent of urine and she did notice that her urine was dark, she does not complain of dysuria. Patient states that her , stand just got home from rehab and she states that she was unable to care for him secondary to her weakness. My interpretation patient's laboratory evaluation is as follows: WBC was normal 7900, H&H consistent with mild chronic anemia 10 and 33. BUN elevated 17. Glucose elevated 118. Urinalysis was positive for nitrates and leukocyte esterase. Microscopic revealed 0-2 RBCs 21-50 WBCs, 3 squamous cells, 4+ bacteria. At this time a concerned the patient's weakness is secondary to a urinary tract infection. Patient did receive cephalexin and doxycycline orally for cellulitis. I ordered ceftriaxone 1 g IV. I will discuss admission with the covering hospitalist. Differential Diagnosis Differential Diagnoses: The differential diagnosis associated with the presentation includes 0929: Differential diagnosis includes but is not limited to Lab Data 09/26/22 06:07 09/26/22 06:07 Labs: Lab Results 09/25/22 09/25/22 09/25/22 Range/Units 02:54 03:37 05:28 WBC 7.9 (4.8-10.8) X10*3/uL RBC 3.62 L (4.20-5.50) X10*6/uL Hgb 10.3 L (12.0-16.0) g/dl Hct 33.8 L (37.0-47.0) % MCV 93.4 (80.0-98.0) fL MCH 28.5 (27.0-33.0) pg MCHC 30.5 L (31.0-35.0) g/dl RDW 15.2 (11.0-16.0) % Plt Count 191 (160-400) X10*3/uL MPV 10.1 (9.4-12.3) fL Immature Gran % (Auto) 0.4 (0.0-0.4) % Neut % (Auto) 72.4 (45-73) % Lymph % (Auto) 13.4 L (20-40) % [place] % (Auto) 9.7 (2-11) % Eos % (Auto) 3.7 (0-4) % Baso % (Auto) 0.4 (0-2) % Lymph # (Auto) 1.1 L (1.2-4.9) X10*3/uL [place] # (Auto) 0.8 (0.1-1.2) X10*3/uL Eos # (Auto) 0.3 (0.0-0.4) X10*3/uL Baso # (Auto) 0.0 (0.0-0.2) X10*3/uL Abs Immat Gran (auto) 0.03 (0.00-0.03) X10*3/uL Absolute Neuts (auto) 5.8 (2.0-8.3) x10*3/uL Absolute Nucleated RBC 0.000 (0.0-0.012) X10*3/uL Nucleated RBC % (auto) 0.0 (0.0-0.2) /100WBC PT 18.1 H (11.1-13.3) SEC INR 1.5 H (0.9-1.1) Sodium 142 (135-145) mmol/L Potassium 4.2 (3.3-5.1) mmol/L Chloride 103 (96-108) mmol/L Carbon Dioxide 29 (22-29) mmol/L Anion Gap 14 (12-20) BUN 17 H (9-16) mg/dL Creatinine 0.74 (0.5-1.4) mg/dL Estim Creat Clear Calc 53.7 Estimated GFR > 60 POC Glucose 118 H (60-115) mg/dL Random Glucose 118 H (60-115) mg/dL Calcium 9.6 D (8.4-10.2) mg/dL Total Bilirubin 1.0 (0.0-1.0) mg/dL AST 12 (5-31) U/L ALT < 5 (0-31) U/L Alkaline Phosphatase 111 (39-117) U/L Troponin I High Sens 13.4 (<3.5-17.0) ng/L Total Protein 8.1 H (6.5-8.0) g/dL Albumin 3.4 L (3.5-5.0) g/dL Urine Color Urine Appearance Urine pH (5.0-9.0) Ur Specific [place] (1.005-1.025) Urine Protein (Neg-Trace) mg/dL Urine Glucose (UA) (Negative) mg/dL Urine Ketones (Negative) mg/dL Urine Blood (Negative) Urine Nitrite (Negative) Ur Leukocyte Esterase (Negative) Urine RBC (0-2) /HPF Urine WBC (0-5) /HPF Ur Squamous Epith Cells (0-2) /HPF Urine Bacteria (None Seen) Hyaline Casts (0-2) /LPF 09/25/22 Range/Units 07:01 WBC (4.8-10.8) X10*3/uL RBC (4.20-5.50) X10*6/uL Hgb (12.0-16.0) g/dl Hct (37.0-47.0) % MCV (80.0-98.0) fL MCH (27.0-33.0) pg MCHC (31.0-35.0) g/dl RDW (11.0-16.0) % Plt Count (160-400) X10*3/uL MPV (9.4-12.3) fL Immature Gran % (Auto) (0.0-0.4) % Neut % (Auto) (45-73) % Lymph % (Auto) (20-40) % [place] % (Auto) (2-11) % Eos % (Auto) (0-4) % Baso % (Auto) (0-2) % Lymph # (Auto) (1.2-4.9) X10*3/uL [place] # (Auto) (0.1-1.2) X10*3/uL Eos # (Auto) (0.0-0.4) X10*3/uL Baso # (Auto) (0.0-0.2) X10*3/uL Abs Immat Gran (auto) (0.00-0.03) X10*3/uL Absolute Neuts (auto) (2.0-8.3) x10*3/uL Absolute Nucleated RBC (0.0-0.012) X10*3/uL Nucleated RBC % (auto) (0.0-0.2) /100WBC PT (11.1-13.3) SEC INR (0.9-1.1) Sodium (135-145) mmol/L Potassium (3.3-5.1) mmol/L Chloride (96-108) mmol/L Carbon Dioxide (22-29) mmol/L Anion Gap (12-20) BUN (9-16) mg/dL Creatinine (0.5-1.4) mg/dL Estim Creat Clear Calc Estimated GFR POC Glucose (60-115) mg/dL Random Glucose (60-115) mg/dL Calcium (8.4-10.2) mg/dL Total Bilirubin (0.0-1.0) mg/dL AST (5-31) U/L ALT (0-31) U/L Alkaline Phosphatase (39-117) U/L Troponin I High Sens (<3.5-17.0) ng/L Total Protein (6.5-8.0) g/dL Albumin (3.5-5.0) g/dL Urine Color Yellow Urine Appearance Cloudy Urine pH 7.0 (5.0-9.0) Ur Specific [place] 1.020 (1.005-1.025) Urine Protein 30 (1+) H (Neg-Trace) mg/dL Urine Glucose (UA) Negative (Negative) mg/dL Urine Ketones Negative (Negative) mg/dL Urine Blood Negative (Negative) Urine Nitrite Positive H (Negative) Ur Leukocyte Esterase Moderate (2+) H (Negative) Urine RBC 0-2 (0-2) /HPF Urine WBC 21-50 H (0-5) /HPF Ur Squamous Epith Cells 3-5 (0-2) /HPF Urine Bacteria 4+ (None Seen) Hyaline Casts 0-2 (0-2) /LPF Discharge Plan Discharge Clinical Impression: UTI (urinary tract infection) Patient Disposition: Admitted As Inpatient Interventions: Admission Worksheet (ED) Last Done: 09/25/22 14:37 Discharge Date/Time: 09/25/22 14:37
[2022-09-25] MEDS: Doxycycline Monohydrate 100 MG CAPSULE PO (05:14)
[2022-09-25] MEDS: cephALEXin 500 MG CAPSULE PO (05:14)
[2022-09-25] MEDS: Acetaminophen 325 MG TABLET 975 MG PO (05:14)
[2022-09-25 05:38] LABS: INTERNATIONAL NORM RATIO 1.5 (0.9-1.1); Prothrombin Time 18.1 SEC (11.1-13.3)
[2022-09-25 07:24] LABS: Appearance Urine Cloudy; Color Urine Yellow; Glucose Urine UA Negative (Negative); Leukocyte Esterase Urine Moderate (2+) (Negative); Nitrite Urine Positive (Negative); UMIC TRIGGER UACC YES; Urine Blood Negative (Negative); Urine Ketones Negative (Negative); Urine Protein 30 (1+) mg/dL (Neg-Trace)
[2022-09-25 07:29] LABS: Bacteria Urine 4+ (None Seen); Hyaline Casts Urine 0-2 /LPF (0-2); RBC Urine 0-2 /HPF (0-2); UACC Culture Trigger YES; WBC Urine 21-50 /HPF (0-5)
--- NOTE | 2022-09-25 07:49 | PC.NURSE ---
Alert and oriented, denies pain or discomfort. VSs, nsr on monitor
--- NOTE | 2022-09-25 08:23 | ECG_ITS ---
Test Reason : CHEST PAIN Blood Pressure : / mmHG Vent. Rate : 069 BPM Atrial Rate : 000 BPM P-R Int : 000 ms QRS Dur : 146 ms QT Int : 504 ms P-R-T Axes : 000 095 -24 degrees QTc Int : 540 ms Atrial fibrillation Right bundle branch block T wave abnormality, consider inferior ischemia Abnormal ECG When compared with ECG of 11-JAN-2022 12:57, No significant change was found Referred By: Cesar Gill Electronically Signed By:CYRIL ART MD
--- NOTE | 2022-09-25 08:42 | MHC.CM.PN ---
CM MET WITH PT AT BEDSIDE IN ED. PT LIVES WITH SPOUSE IN A 2 FAMILY HOME ON THE FIRST FLOOR. SPOUSE IS UNABLE TO ASSIST HER HE IS JUST OURT OF REHAB. PT IS NOT CURRENTLY ACTIVE WITH A [facility] BUT HAS BEEN WITH [facility] IN THE NEAR PAST AND IS FIRST CHOICE SHOULD P.T. REC HOME SERVICES. PT HAS [employer] SPECIALIST HELP THROUGH [facility] 3X/WEEK FOR 2-3 HOURS. +HCP ON FILE +COVID [facility] X2 CM WILL AWAIT P.T. EVAL AND FOLLOW FOR DC NEEDS/PLAN.
[2022-09-25] MEDS: cefTRIAXone sodium 1 GM in 0.9 % Sodium Chloride 50 ML IV (09:34)
--- NOTE | 2022-09-25 10:02 | PHA.MEDREC ---
Pharmacy Consult ? Medication Reconciliation Pharmacy has completed the medication reconciliation. Spoke to patient and pharmacy to confirm meds.
[2022-09-25] MEDS: 0.9 % Sodium Chloride 1,000 ML 999 ML IV (10:19)
--- NOTE | 2022-09-25 11:19 | P.HPHOSP_ITS ---
History of Present Illness Date of Service: 09/25/22 <JUSTEN Mcnamara - Last Filed: 09/25/22 13:28> Attending physician on admission: Glen Ozuna <JUSTEN Mcnamara - Last Filed: 09/25/22 13:28> Chief Complaint: Left lower leg swelling and redness <JUSTEN Mcnamara - Last Filed: 09/25/22 13:28> Pt is an 82-year-old female with a PMH significant for?HFpEF, aortic stenosis s/p TAVR, persistent AFib on warfarin, rheumatoid arthritis, hx of CVA, remote hx ovarian cancer, HTN, and HLD who presents to the ED with?generalized weakness and inability to stand earlier today. The patient sleeps in a recliner at baseline, and today when she attempted to stand with her walker was unable to do so. Patient rested for another hour before attempting to stand again, failed again. She is incontinent of urine at baseline butreports increased urinary frequency with dark-colored urine. Patient has a recent history of admissions both here and at [facility] with subsequent discharges to rehab. Patient lives with her who was recently hospitalized here and discharged from rehab two nights prior on night. She says he is now in worse condition than her. Has some limited family support and visits by home health aide 3 times a week for house cleaning and meal preparation. Patient reports decreased appetite and not eating anything except for or juice and crackers for the past 3 days. Also report chronic lower leg edema, worse on the left. Chronic SOB. No fever, chills, nausea, vomiting, diarrhea. In the ED patient was afebrile but tachypneic up to 22 and hypertensive of 199/69, satting at 98% O2 on RA. Labs were significant for subtherapeutic INR at 1.5 and initial troponin 13.4., otherwise unremarkable. Electrolytes WNL. Hepatic function and renal function baseline. UA positive for UTI. CXR showed no focal consolidation or pleural effusion but redemonstrated pulmonary vascular congestion. Left hip x-ray found no significant abnormalities. EKG demonstrated atrial fibrillation with nonspecific T-wave abnormalities with a slow questions were questions. Pt was treated with acetaminophen, cephalexin, doxy, ceftriaxone, and IVF. Pt will be admitted to the hospital for generalized weakness and deconditioning in the setting of UTI. <JUSTEN Mcnamara - Last Filed: 09/25/22 13:28> Pt is an 82-year-old female with a PMH significant for?HFpEF, aortic stenosis s/p TAVR, persistent AFib on warfarin, rheumatoid arthritis, hx of CVA, remote hx ovarian cancer, HTN, and HLD who presents to the ED with?generalized weakness and inability to stand earlier today. The patient sleeps in a recliner at baseline, and today when she attempted to stand with her walker was unable to do so. Patient rested for another hour before attempting to stand again, failed again. She is incontinent of urine at baseline but reports increased urinary frequency with dark-colored urine. Patient has a recent history of admissions both here and at [facility] with subsequent discharges to rehab. Patient lives with her who was recently hospitalized here and discharged from rehab two nights prior on night. She says he is now in worse condition than her. Has some limited family support and visits by home health aide 3 times a week for house cleaning and meal preparation. Patient reports decreased appetite and not eating anything except for or juice and crackers for the past 3 days. Also report chronic lower leg edema, worse on the left. Chronic SOB. No fever, chills, nausea, vomiting, diarrhea. In the ED patient was afebrile but tachypneic up to 22 and hypertensive of 199/69, satting at 98% O2 on RA. Labs were significant for subtherapeutic INR at 1.5 and initial troponin 13.4., otherwise unremarkable. Electrolytes WNL. Hepa tic function and renal function baseline. UA positive for UTI. CXR showed no focal consolidation or pleural effusion but redemonstrated pulmonary vascular congestion. Left hip x-ray found no significant abnormalities. EKG demonstrated atrial fibrillation with nonspecific T-wave abnormalities with a slow questions were questions. Pt was treated with acetaminophen, cephalexin, doxy, ceftriaxone, and IVF. Pt will be admitted to the hospital for generalized weakness and deconditioning in the setting of UTI. <Glen Ozuna DO - Last Filed: 09/25/22 13:36> Review of Systems Review of Systems: Generalized weakness, fatigue Polyuria Anorexia Chronic lower leg edema Chronic SOB No fever, chills, nausea, vomiting, diarrhea <JUSTEN Mcnamara - Last Filed: 09/25/22 13:28> Yes all other systems are reviewed and are negative <JUSTEN Mcnamara - Last Filed: 09/25/22 13:28> [facility] Medical History: Medical History (HFpEF) heart failure with preserved ejection fraction Acute pyelonephritis Anxiety and depression Atrial fibrillation CHF exacerbation Chronic anticoagulation Congestive heart failure CVA (cerebral vascular accident) Hypercholesterolemia Hypertension Lumbar vertebral fracture Nonrheumatic aortic valve stenosis Obesity (BMI 30-39.9) Pancytopenia Persistent atrial fibrillation Pneumonia Pulmonary hypertension Rash Rheumatoid arthritis Sepsis TIA (transient ischemic attack) Type 2 diabetes mellitus with hyperglycemia Uterine cancer <JUSTEN Mcnamara - Last Filed: 09/25/22 13:28> Family History: Family History Father Diabetes CAD (coronary artery disease) Mother Diabetes Hypertension Perforated ulcer Sister Diabetes <JUSTEN Mcnamara - Last Filed: 09/25/22 13:28> Surgical History: Surgical History History of appendectomy History of colonoscopy History of left knee replacement History of right knee joint replacement History of transcatheter aortic valve replacement (TAVR) (~06/19/21) S/P ANTONIO-BSO <JUSTEN Mcnamara - Last Filed: 09/25/22 13:28> Social History: Social History Household Members: Spouse Housing: House Housing Other:: lives with spouse Do you presently have visiting nurse or other home services: No Alcohol intake: current Alcohol intake frequency: other (very rarely) Patient Tobacco Use Status: Never used Tobacco e-Cigarette/Vaping Use: Never Used Second Hand Smoke Exposure: No Advance Directives: Yes Advance Directives on File: Yes Advance Directives Date on File: 09/03/21 service: No Current occupational status: retired 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, [employer] Current occupational exposures/hazards: No Cognitive needs: Yes (cane, walker) Hearing needs: No Vision needs: Yes (glasses) <JUSTEN Mcnamara - Last Filed: 09/25/22 13:28> Meds Allergies/Adverse reactions: Allergies Allergy/AdvReac Type Severity Reaction Status Date / Time shellfish derived Allergy Unknown itchy Verified 09/25/22 03:06 procaine [From Novocain] AdvReac Unknown makes Verified 09/25/22 03:06 patient itchy,puffy <JUSTEN Mcnamara - Last Filed: 09/25/22 13:28> Active Medications: Current Medications Pharmacy Consult (Consult Rx Perform Med Rec) 1 each MISCELLANE ONCE PRN PRN Reason: Consult order <JUSTEN Mcnamara - Last Filed: 09/25/22 13:28> Home medications: Home Medications Medication Instructions Recorded Confirmed Last Taken Type acetaminophen 500 mg capsule 1,000 mg PO Q6H PRN Pain 09/15/22 09/25/22 09/23/22 History simvastatin 20 mg tablet 20 mg PO BEDTIME 09/25/22 09/25/22 09/23/22 History warfarin 1 mg tablet 2 mg PO SUMOTUTHFRSA@1800 09/25/22 09/25/22 09/23/22 History warfarin 1 mg tablet 3 mg PO WE@1800 09/25/22 09/25/22 09/22/22 History <JUSTEN Mcnamara - Last Filed: 09/25/22 13:28> Physical Exam Vital Signs and Narrative: Vital Signs: Last Vital Signs Temp 8.4 F L 09/25/22 08:28 Pulse 72 09/25/22 10:20 Resp 22 H 09/25/22 10:20 BP 132/66 09/25/22 10:20 Pulse Ox 98 09/25/22 10:20 O2 Del Method Room Air 09/25/22 10:20 BMI result Body Mass Index 33.2 <JUSTEN Mcnamara - Last Filed: 09/25/22 13:28> Constitutional: Alert, in no acute distress. Mental Status: Oriented to person, place and time. Eyes: Pupils are equal, round, and reactive to light. Ear, Nose, and Throat: Oropharynx clear, mucous membranes moist. Ears and nose without deformities. Trachea midline. Respiratory: Clear to auscultation bilaterally. No wheezing, rales, or rhonchi. Cardiovascular: Irregularly irregular rhythm. No murmurs, rubs, or gallops. Gastrointestinal: Abdomen soft, non-tender, non-distended. Normal bowel sounds. Neurologic: Cranial nerves II-XII are grossly intact bilaterally. No focal neurological deficits. Moves all extremities spontaneously. Skin: Mild erythema lower left leg. Musculoskeletal: Diminished strength of legs bilaterally, 2/5. Extremities: Bilateral lower leg edema, left worse than right. Psychiatric: Normal mood and affect. <JUSTEN Mcnamara - Last Filed: 09/25/22 13:28> Results Labs CBC and Chem 7: 09/25/22 03:37 09/25/22 03:37 <JUSTEN Mcnamara - Last Filed: 09/25/22 13:28> Labs: Laboratory Results - last 24 hr 09/25/22 09/25/22 09/25/22 02:54 03:37 03:37 MCV 93.4 MCH 28.5 MCHC 30.5 L RDW 15.2 Plt Count 191 MPV 10.1 Immature Gran % (Auto) 0.4 Neut % (Auto) 72.4 Lymph % (Auto) 13.4 L [place] % (Auto) 9.7 Eos % (Auto) 3.7 Baso % (Auto) 0.4 Lymph # (Auto) 1.1 L [place] # (Auto) 0.8 Eos # (Auto) 0.3 Baso # (Auto) 0.0 Abs Immat Gran (auto) 0.03 Absolute Neuts (auto) 5.8 Absolute Nucleated RBC 0.000 Nucleated RBC % (auto) 0.0 PT INR Anion Gap 14 Estim Creat Clear Calc 53.7 Estimated GFR > 60 POC Glucose 118 H Random Glucose 118 H Calcium 9.6 D Total Bilirubin 1.0 AST 12 ALT < 5 Alkaline Phosphatase 111 Total Protein 8.1 H Albumin 3.4 L Urine Color Urine Appearance Urine pH Ur Specific [place] Urine Protein Urine Glucose (UA) Urine Ketones Urine Blood Urine Nitrite Ur Leukocyte Esterase Urine RBC Urine WBC Ur Squamous Epith Cells Urine Bacteria Hyaline Casts 09/25/22 09/25/22 05:28 07:01 MCV MCH MCHC RDW Plt Count MPV Immature Gran % (Auto) Neut % (Auto) Lymph % (Auto) [place] % (Auto) Eos % (Auto) Baso % (Auto) Lymph # (Auto) [place] # (Auto) Eos # (Auto) Baso # (Auto) Abs Immat Gran (auto) Absolute Neuts (auto) Absolute Nucleated RBC Nucleated RBC % (auto) PT 18.1 H INR 1.5 H Anion Gap Estim Creat Clear Calc Estimated GFR POC Glucose Random Glucose Calcium Total Bilirubin AST ALT Alkaline Phosphatase Total Protein Albumin Urine Color Yellow Urine Appearance Cloudy Urine pH 7.0 Ur Specific [place] 1.020 Urine Protein 30 (1+) H Urine Glucose (UA) Negative Urine Ketones Negative Urine Blood Negative Urine Nitrite Positive H Ur Leukocyte Esterase Moderate (2+) H Urine RBC 0-2 Urine WBC 21-50 H Ur Squamous Epith Cells 3-5 Urine Bacteria 4+ Hyaline Casts 0-2 <JUSTEN Mcnamara - Last Filed: 09/25/22 13:28> Imaging Radiologist's Impressions: Impressions Chest X-Ray 09/25/22 03:33 IMPRESSION: Pulmonary vascular congestion which was seen previously. No focal consolidation or pleural effusion. Hip X-Ray 09/25/22 03:33 IMPRESSION: No significant abnormality identified. <JUSTEN Mcnamara - Last Filed: 09/25/22 13:28> Assessment and Plan (1) UTI (urinary tract infection): Status: Inactive <JUSTEN Mcnamara - Last Filed: 09/25/22 13:28> (2) Generalized weakness: Status: Acute <JUSTEN Mcnamara - Last Filed: 09/25/22 13:28> Pt is an 82-year-old female with a PMH significant for?HFpEF, aortic stenosis s/p TAVR, persistent AFib on warfarin, rheumatoid arthritis, hx of CVA, remote hx ovarian cancer, HTN, and HLD who presents to the ED with?generalized weakness and inability to stand earlier today. Pt will be admitted to the hospital for generalized weakness and deconditioning in the setting of UTI. UTI UA positive for UTI, pt with polyuria Ceftriaxone, started 09/25/2022 Generalized weakness PT evaluation Question of lower left leg cellulitis Patient with mild erythema of lower left leg Pt given cephalexin and doxycycline in the ED Most likely venous stasis dermatitis, cellulitis less likely Will hold off on additional antibiotics for now Eucerin applied to lower legs bilaterally Subtherapeutic INR INR 1.5 Pt missed warfarin dose yesterday Continue warfarin Monitor INR Hx of HFpEF Does not appear to be in acute exacerbation Continue furosemide HLD Continue statin Mood disorder Continue sertraline Full Code Attending:?Dr. DVT Prophylaxis: Lovenox Pt will require a hospitalization of at least two nights for treatment of?genera lized weakness in the setting of UTI with IV antibiotics and PT. <JUSTEN Mcnamara - Last Filed: 09/25/22 13:28> Time Spent With Patient Time: Total time managing care of this patient today ____ minutes. <JUSTEN Mcnamara - Last Filed: 09/25/22 13:28> Quality Stroke Does the patient have a stroke diagnosis?: No <JUSTEN Mcnamara - Last Filed: 09/25/22 13:28> VTE Prior VTE?: No <JUSTEN Mcnamara - Last Filed: 09/25/22 13:28> VTE Risk Level:: Medical - moderate - high <JUSTEN Mcnamara - Last Filed: 09/25/22 13:28> VTE Device Contraindication: Treatment Not Indicated <JUSTEN Mcnamara - Last Filed: 09/25/22 13:28> VTE Drug Contraindication: N/A - Med Ordered <JUSTEN Mcnamara - Last Filed: 09/25/22 13:28>
[2022-09-25] MEDS: Sertraline HCL 25 MG TABLET PO (13:45)
[2022-09-25] MEDS: Cholecalciferol (Vitamin D3) 25 MCG TABLET 50 MCG PO (13:45)
[2022-09-25] MEDS: Furosemide 40 MG TABLET PO (13:45)
[2022-09-25] MEDS: Folic Acid 1 MG TABLET PO (13:45)
[2022-09-25] MEDS: Metoprolol Tartrate 12.5 MG HALFTAB PO ×2 (13:45→20:16)
--- NOTE | 2022-09-25 13:50 | PC.NURSE ---
pt a&ox4, vss, medicated per MAR, pt verbalizing need to urinate - 1 assist to bedside commode , PT at bedside for eval. pt pending bed assignment.
--- NOTE | 2022-09-25 14:12 | PC.NURSE ---
attempted to call in report to [facility], penelope sent to RN.
--- NOTE | 2022-09-25 14:30 | PC.NURSE ---
RN-RN report [place] [facility]
--- NOTE | 2022-09-25 16:33 | MHC.CM.PN ---
IMM delivered to patient in room. CM to follow.
[2022-09-25] MEDS: amLODIPine Besylate 5 MG TABLET PO (16:55)
[2022-09-25] MEDS: 0.9 % Sodium Chloride Flush 3 ML SYRINGE IVFLUSH ×2 (16:57→20:16)
[2022-09-25] MEDS: Warfarin Sodium 2 MG TABLET PO (17:34)
[2022-09-25] MEDS: Atorvastatin Calcium 10 MG TABLET PO (20:16)
[2022-09-25] MEDS: Acetaminophen 325 MG TABLET 650 MG PO (20:17)
[2022-09-25] MEDS: traMADoL HCL 50 MG TABLET PO (22:43)
--- NOTE | 2022-09-25 23:07 | PC.NURSE ---
Pt seen on bed complaining of generalized pain, PT was given PRN tylenol, 2 hours after Pt asked for more pain meds because her pain level increased to 6. Dr. Millard was notified.
[2022-09-26 03:51] VITALS: BP 138/65; PULSE 67; RESP 18; TEMP 36.6; O2SAT 93
[2022-09-26 07:17] LABS: INTERNATIONAL NORM RATIO 1.4 (0.9-1.1); Prothrombin Time 16.9 SEC (11.1-13.3)
[2022-09-26 07:20] LABS: Hemoglobin 9.7 g/dl (12.0-16.0); Mean Corpuscular HGB Conc 30.3 g/dl (31.0-35.0); Mean Corpuscular Hemoglobin 28.5 pg (27.0-33.0); Mean Corpuscular Volume 94.1 fL (80.0-98.0); Mean Platelet Volume 10.8 fL (9.4-12.3); Platelet Count 182 X10*3/uL (160-400); Red Cell Distribution Width 15.3 % (11.0-16.0); White Blood Count 5.5 X10*3/uL (4.8-10.8)
[2022-09-26 07:39] VITALS: BP 154/72; PULSE 75; RESP 20; TEMP 36.6; O2SAT 97
[2022-09-26 07:45] LABS: Anion Gap 11 (12-20); Blood Urea Nitrogen 17 mg/dL (9-16); Calcium 9.4 mg/dL (8.4-10.2); Carbon Dioxide 30 mmol/L (22-29); Chloride 103 mmol/L (96-108); Creatinine Clr Calc Pharmacy 56.9; Estimated Glomerular Filt Rate > 60; Glucose Random 93 mg/dL (60-115); Sodium 140 mmol/L (135-145)
[2022-09-26] MEDS: 0.9 % Sodium Chloride Flush 3 ML SYRINGE IVFLUSH ×3 (08:33→19:49)
[2022-09-26] MEDS: cefTRIAXone sodium 1 GM in 0.9 % Sodium Chloride 50 ML IV (08:35)
[2022-09-26] MEDS: Sertraline HCL 25 MG TABLET PO (08:35)
[2022-09-26] MEDS: Folic Acid 1 MG TABLET PO (08:35)
[2022-09-26] MEDS: Furosemide 40 MG TABLET PO (08:35)
[2022-09-26] MEDS: amLODIPine Besylate 5 MG TABLET PO (08:35)
[2022-09-26] MEDS: Cholecalciferol (Vitamin D3) 25 MCG TABLET 50 MCG PO (08:35)
[2022-09-26] MEDS: Metoprolol Tartrate 12.5 MG HALFTAB PO ×2 (08:35→19:49)
--- NOTE | 2022-09-26 12:01 | HO.PM.IMPN ---
Subjective Subjective Date of Service: 09/26/22 Interval History: Follow-up for patient with generalized weakness and deconditioning in the setting of UTI Patient reports no acute events overnight States she is feeling better, not as weak Denies dysuria Patient has been out of bed to the bathroom and back Continues to need assistance for transfer and ambulation Review of Systems Improving weakness, shortness of breath with exertion Polyuria No dysuria Denies chest pain/pressure, palpitations Denies leg pain No fever, chills Review of Systems: Yes all other systems are reviewed and are negative Physical Exam Vital Signs: Vital Signs: Last Vital Signs Temp 97.9 F 09/26/22 07:39 Pulse 75 09/26/22 07:39 Resp 20 09/26/22 07:39 BP 154/72 H 09/26/22 07:39 Pulse Ox 97 09/26/22 07:39 O2 Del Method Room Air 09/26/22 07:39 BMI result Body Mass Index 33.2 General: AOx3, no acute distress Resp: CTA bilaterally CVS: S1, S2, irregularly irregular rhythm GI: +BS, NT, no distention Skin: No rash Neuro: Cranial nerves II-XII grossly intact bilaterally. Motor grossly intact bilaterally Extremities: Nonpitting bilateral edema. Psych: Appropriate affect Objective Data Active Medications Acetaminophen (Acetaminophen 325 Mg Tablet) 650 mg PO Q6H PRN PRN Reason: Pain, Mild (Pain Scale 1-3) Last Admin: 09/25/22 20:17 Dose: 650 mg Documented By: WILLIAM Amlodipine Besylate (Amlodipine Besylate 5 Mg Tablet) 5 mg PO DAILY [facility]; Protocol Last Admin: 09/26/22 08:35 Dose: 5 mg Documented By: DAVID Atorvastatin Calcium (Atorvastatin Calcium 10 Mg Tablet) 10 mg PO BEDTIME [facility] Last Admin: 09/25/22 20:16 Dose: 10 mg Documented By: WILLIAM Docusate Sodium (Docusate Sodium 100 Mg Capsule) 100 mg PO DAILY PRN PRN Reason: Constipation Folic Acid (Folic Acid 1 Mg Tablet) 1 mg PO DAILY [facility] Last Admin: 09/26/22 08:35 Dose: 1 mg Documented By: DAVID Furosemide (Furosemide 40 Mg Tablet) 40 mg PO DAILY [facility]; Protocol Last Admin: 09/26/22 08:35 Dose: 40 mg Documented By: DAVID Ceftriaxone Sodium 1 gm/ (Sodium Chloride) 50 mls @ 100 mls/hr IV Q24H [facility] Last Infusion: 09/26/22 09:22 Dose: 0 mls/hr Documented By: DAVID Metoprolol Tartrate (Metoprolol Tartrate 12.5 Mg Halftab) 12.5 mg PO BID [facility]; Protocol Last Admin: 09/26/22 08:35 Dose: 12.5 mg Documented By: DAVID Multi-Ingred Cream/Lotion/Oil/Oint (Mineral Oil/Petrolatum,White 106 Gm Tube) 1 appl TOPICAL BEDTIME [facility]; Protocol Last Admin: 09/25/22 21:49 Dose: Not Given Documented By: DMITRY Non-Admin Reason: Med Not Available Ondansetron HCl (Ondansetron Hcl 4 Mg/2 Ml Vial) 4 mg IVPUSH Q8H PRN PRN Reason: Nausea and Vomiting Pharmacy Consult (Consult Rx Perform Med Rec) 1 each MISCELLANE ONCE PRN PRN Reason: Consult order Sertraline HCl (Sertraline Hcl 25 Mg Tablet) 25 mg PO DAILY [facility] Last Admin: 09/26/22 08:35 Dose: 25 mg Documented By: DAVID Sodium Chloride (0.9 % Sodium Chloride Flush 3 Ml Syringe) 3 ml IVFLUSH QSHIFT [facility] Last Admin: 09/26/22 08:33 Dose: 3 ml Documented By: DAVID Vitamin D (Cholecalciferol (Vitamin D3) 25 Mcg Tablet) 50 mcg PO DAILY [facility] Last Admin: 09/26/22 08:35 Dose: 50 mcg Documented By: DAVID Warfarin Sodium (Warfarin Sodium 2 Mg Tablet) 2 mg PO SUMOTUTHFRSA@1800 [facility] Last Admin: 09/25/22 17:34 Dose: 2 mg Documented By: DAVID Warfarin Sodium (Warfarin Sodium 3 Mg Tablet) 3 mg PO WE@1800 [facility] Labs 09/26/22 06:07 09/26/22 06:07 Labs: Laboratory Results - last 24 hr 09/26/22 09/26/22 09/26/22 06:07 06:07 06:07 MCV 94.1 MCH 28.5 MCHC 30.3 L RDW 15.3 Plt Count 182 MPV 10.8 Absolute Nucleated RBC 0.000 Nucleated RBC % (auto) 0.0 PT 16.9 H INR 1.4 H Anion Gap 11 L Estim Creat Clear Calc 56.9 Estimated GFR > 60 Random Glucose 93 Calcium 9.4 Microbiology Microbiology Results: Microbiology 09/25/22 Unknown Urine Culture - Preliminary Urine Catheterized - Straight Catheter Culture in progress. Assessment and Plan (1) UTI (urinary tract infection): Status: Acute (2) Generalized weakness: Status: Acute Plan Pt is an 82-year-old female with a PMH significant for?HFpEF, aortic stenosis s/p TAVR, persistent AFib on warfarin, rheumatoid arthritis, hx of CVA, remote hx ovarian cancer, HTN, and HLD who presents to the ED with?generalized weakness and inability to stand up at home.?UA was positive for UTI and pt admitted to the hospital for generalized weakness and deconditioning in the setting of UTI. UTI UA positive for UTI, pt with polyuria Continue ceftriaxone, started 09/25/2022 Generalized weakness Feeling better today, has ambulated with assistance PT evaluation Question of lower left leg cellulitis Patient presented with mild erythema of lower left leg Pt given cephalexin and doxycycline in the ED Most likely venous stasis dermatitis, cellulitis less likely Erythema improved with Eucerin Continue Eucerin to lower legs bilaterally Subtherapeutic INR INR 1.5 at presentation, today 1.4 Pt missed warfarin dose on Tuesday Will change warfarin to 3mg qd for now Monitor INR daily Hx of HFpEF Does not appear to be in acute exacerbation Continue furosemide HLD Continue statin Mood disorder Continue sertraline Pt will require continued hospitalization for treating UTI with IV antibiotics and getting PT evaluation for safe disposition home.? Time Spent With Patient Time: Total time managing care of this patient today ____ minutes. Quality Stroke Does the patient have a stroke diagnosis?: No VTE Prior VTE?: No VTE Risk Level:: Medical - moderate - high VTE Device Contraindication: Treatment Not Indicated VTE Drug Contraindication: N/A - Med Ordered
[2022-09-26 14:48] VITALS: BP 135/64; PULSE 62; RESP 20; TEMP 36.3; O2SAT 94
[2022-09-26] MEDS: Warfarin Sodium 3 MG TABLET PO (17:35)
[2022-09-26 19:32] VITALS: BP 142/69; PULSE 76; RESP 18; TEMP 36.4; O2SAT 96
[2022-09-26] MEDS: Acetaminophen 325 MG TABLET 650 MG PO (19:48)
[2022-09-26] MEDS: Atorvastatin Calcium 10 MG TABLET PO (19:49)
[2022-09-26 21:06] LABS: Glucose, Whole Blood 135 mg/dL (60-115)
--- NOTE | 2022-09-27 | ECG_ITS ---
Test Reason : chest pain Blood Pressure : / mmHG Vent. Rate : 063 BPM Atrial Rate : 000 BPM P-R Int : 000 ms QRS Dur : 146 ms QT Int : 512 ms P-R-T Axes : 000 107 -36 degrees QTc Int : 523 ms Atrial fibrillation Right bundle branch block T wave abnormality, consider inferior ischemia Abnormal ECG When compared with ECG of 25-SEP-2022 03:09, No significant change was found Referred By: Luciana Starks Electronically Signed By:CYRIL ART MD
[2022-09-27 03:34] VITALS: BP 124/65; PULSE 62; RESP 16; TEMP 36.6; O2SAT 93
[2022-09-27 07:16] VITALS: BP 160/67; PULSE 67; RESP 17; TEMP 36.2; O2SAT 93
[2022-09-27 07:22] LABS: INTERNATIONAL NORM RATIO 1.4 (0.9-1.1); Prothrombin Time 17.5 SEC (11.1-13.3)
[2022-09-27 10:07] LABS: B Type Natriuretic Peptide 553 pg/mL (<100)
[2022-09-27] MEDS: Acetaminophen 325 MG TABLET 650 MG PO ×2 (10:10→20:08)
[2022-09-27] MEDS: Metoprolol Tartrate 12.5 MG HALFTAB PO ×2 (10:10→20:09)
[2022-09-27] MEDS: Furosemide 40 MG TABLET PO (10:10)
[2022-09-27] MEDS: Cholecalciferol (Vitamin D3) 25 MCG TABLET 50 MCG PO (10:10)
[2022-09-27] MEDS: amLODIPine Besylate 5 MG TABLET PO (10:10)
[2022-09-27] MEDS: Sertraline HCL 25 MG TABLET PO (10:11)
[2022-09-27] MEDS: Folic Acid 1 MG TABLET PO (10:11)
[2022-09-27] MEDS: cefTRIAXone sodium 1 GM in 0.9 % Sodium Chloride 50 ML IV (10:12)
[2022-09-27] MEDS: 0.9 % Sodium Chloride Flush 3 ML SYRINGE IVFLUSH ×3 (10:12→20:09)
--- NOTE | 2022-09-27 11:08 | MHC.CM.PN ---
CM MET WITH PT TO DISCUSS DC PLANNING PT IS AWARE STR IS BEING RECOMMENDED HOWEVER REPORTS THERE IS NO ONE TO CARE FOR HER SHE SAYS SHE DOES NOT KNOW WHO IS WITH HIM NOW BUT HE HAS A PARKER THAT COMES IN SHE SAYS HE AND THE PARKER DO NOT GET ALONG WELL PT UNABLE TO DECIDE ON DCP TODAY SHE DID REQUEST TO END DISCUSSION SHE WAS FEELING SOB HOSPITALIST AND RN INFORMED [facility] [place]
--- NOTE | 2022-09-27 11:25 | P.PNIM_ITS ---
Subjective Subjective Date of Service: 09/27/22 Interval History: Follow-up for patient with generalized weakness and deconditioning in the setting of UTI Patient reports no acute events overnight States she is feeling better, not as weak reports sob and chest heaviness Review of Systems Review of Systems: Yes all other systems are reviewed and are negative Physical Exam Vital Signs: Vital Signs: Last Vital Signs Temp 97.2 F 09/27/22 07:16 Pulse 67 09/27/22 07:16 Resp 17 09/27/22 07:16 BP 160/67 H 09/27/22 07:16 Pulse Ox 93 09/27/22 07:16 O2 Del Method Room Air 09/27/22 07:16 BMI result Body Mass Index 33.2 Appearing in no acute distress lung sounds are clear to auscultation heart regular rate rhythm, clear S1, S2 positive bowel sounds, abdomen is soft, nontender neuro patient is alert x3, no focal deficits Objective Data Active Medications Acetaminophen (Acetaminophen 325 Mg Tablet) 650 mg PO Q6H PRN PRN Reason: Pain, Mild (Pain Scale 1-3) Last Admin: 09/27/22 10:10 Dose: 650 mg Documented By: SACHIN Amlodipine Besylate (Amlodipine Besylate 5 Mg Tablet) 5 mg PO DAILY [facility]; Protocol Last Admin: 09/27/22 10:10 Dose: 5 mg Documented By: SACHIN Atorvastatin Calcium (Atorvastatin Calcium 10 Mg Tablet) 10 mg PO BEDTIME KIKI Last Admin: 09/26/22 19:49 Dose: 10 mg Documented By: LEIGHA Docusate Sodium (Docusate Sodium 100 Mg Capsule) 100 mg PO DAILY PRN PRN Reason: Constipation Folic Acid (Folic Acid 1 Mg Tablet) 1 mg PO DAILY KIKI Last Admin: 09/27/22 10:11 Dose: 1 mg Documented By: SACHIN Furosemide (Furosemide 40 Mg Tablet) 40 mg PO DAILY [facility]IKI; Protocol Last Admin: 09/27/22 10:10 Dose: 40 mg Documented By: SACHIN Furosemide (Furosemide 40 Mg/4 Ml Vial) 40 mg IVPUSH STAT STA; Protocol Stop: 09/27/22 11:25 Ceftriaxone Sodium 1 gm/ (Sodium Chloride) 50 mls @ 100 mls/hr IV Q24H KIKI Last Admin: 09/27/22 10:12 Dose: 100 mls/hr Documented By: SACHIN Metoprolol Tartrate (Metoprolol Tartrate 12.5 Mg Halftab) 12.5 mg PO BID [facility]; Protocol Last Admin: 09/27/22 10:10 Dose: 12.5 mg Documented By: SACHIN Multi-Ingred Cream/Lotion/Oil/Oint (Mineral Oil/Petrolatum,White 106 Gm Tube) 1 appl TOPICAL BEDTIME [facility]; Protocol Last Admin: 09/26/22 19:56 Dose: Not Given Documented By: LEIGHA Non-Admin Reason: Med Not Available Ondansetron HCl (Ondansetron Hcl 4 Mg/2 Ml Vial) 4 mg IVPUSH Q8H PRN PRN Reason: Nausea and Vomiting Pharmacy Consult (Consult Rx Perform Med Rec) 1 each MISCELLANE ONCE PRN PRN Reason: Consult order Sertraline HCl (Sertraline Hcl 25 Mg Tablet) 25 mg PO DAILY [facility] Last Admin: 09/27/22 10:11 Dose: 25 mg Documented By: SACHIN Sodium Chloride (0.9 % Sodium Chloride Flush 3 Ml Syringe) 3 ml IVFLUSH QSHIFT [facility] Last Admin: 09/27/22 10:12 Dose: 3 ml Documented By: SACHIN Vitamin D (Cholecalciferol (Vitamin D3) 25 Mcg Tablet) 50 mcg PO DAILY [facility] Last Admin: 09/27/22 10:10 Dose: 50 mcg Documented By: SACHIN Warfarin Sodium (Warfarin Sodium 3 Mg Tablet) 3 mg PO DAILY@1800 [facility] Last Admin: 09/26/22 17:35 Dose: 3 mg Documented By: DAVID Warfarin Sodium (Warfarin Sodium 5 Mg Tablet) 5 mg PO ONCE@1800 ONE Stop: 09/27/22 18:01 Labs 09/26/22 06:07 09/26/22 06:07 Labs: Laboratory Results - last 24 hr 09/26/22 09/27/22 09/27/22 21:01 06:31 09:40 PT 17.5 H INR 1.4 H POC Glucose 135 H B-Natriuretic Peptide 553 H Microbiology Microbiology Results: Microbiology 09/25/22 Unknown Urine Culture - Preliminary Urine Catheterized - Straight Catheter Gram negative beata Proteus species Assessment and Plan (1) UTI (urinary tract infection): Status: Acute (2) Generalized weakness: Status: Acute Plan Pt is an 82-year-old female with a PMH significant for?HFpEF, aortic stenosis s/p TAVR, persistent AFib on warfarin, rheumatoid arthritis, hx of CVA, remote hx ovarian cancer, HTN, and HLD who presents to the ED with?generalized weakness and inability to stand up at home.?UA was positive for UTI and pt admitted to the hospital for generalized weakness and deconditioning in the setting of UTI. GNR, proteus UTI Continue ceftriaxone, started 09/25/2022 follow final cx Shortness of breath with chest heaviness cxr neg for acute abnormality elevated BNP 553 EKG no change from previous Troponin 11.4 one dose of IV lasix with good effect Chronic venous stasis dermatitis No cellulitis Left lower extremity May use them only and creams Subtherapeutic INR INR 1.4 increased warfarin dose to 5 mg today Recheck INR in the morning Hx of HFpEF Does not appear to be in acute exacerbation Continue oral furosemide HLD Continue statin Mood disorder Continue sertraline DVT prophylaxis with warfarin Full code Attending Dr. Cee Pt will require continued hospitalization for treating UTI with IV antibiotics and getting PT evaluation for safe disposition home.? Time Spent With Patient Time: Total time managing care of this patient today ____ minutes. Quality Stroke Does the patient have a stroke diagnosis?: No VTE Prior VTE?: No VTE Risk Level:: Medical - moderate - high VTE Device Contraindication: Treatment Not Indicated VTE Drug Contraindication: N/A - Med Ordered
[2022-09-27] MEDS: Furosemide 40 MG/4 ML VIAL IVPUSH (11:32)
[2022-09-27 11:49] VITALS: PULSE 61; RESP 18; O2SAT 95
[2022-09-27] MEDS: Albuterol Sulfate (0.083%) 2.5 MG/3 ML VIAL.NEB INHALE (11:49)
[2022-09-27 12:32] LABS: Troponin-I High Sensitivity 11.4 ng/L (<3.5-17.0)
[2022-09-27 12:36] VITALS: PULSE 61
[2022-09-27 16:00] VITALS: BP 111/53; PULSE 77; RESP 17; TEMP 36.9; O2SAT 92
[2022-09-27 16:14] LABS: Glucose, Whole Blood 155 mg/dL (60-115)
[2022-09-27] MEDS: Warfarin Sodium 5 MG TABLET PO (17:33)
[2022-09-27 19:49] VITALS: BP 141/60; PULSE 83; RESP 17; TEMP 35.9; O2SAT 95
[2022-09-27] MEDS: Atorvastatin Calcium 10 MG TABLET PO (20:09)
[2022-09-28 03:24] VITALS: BP 162/72; PULSE 75; RESP 20; TEMP 36.6; O2SAT 95
[2022-09-28] MEDS: Acetaminophen 325 MG TABLET 650 MG PO ×2 (04:58→21:44)
--- NOTE | 2022-09-28 07:00 | CA_ITS ---
Transthoracic Echocardiogram Patient (Last, First, Middle): Yakelin Abreu E Gender: Female Date of : 1940 Age: 82 Procedure Date: 09/28/2022 Procedure Type: Transthoracic Echocardiogram Location: [facility] – [place] Height: 152.4 cm Weight: 76.66 kg BSA: 1.74 m2 Heart Rate: 68 bpm BP: 127 / 58 mmHg Sports Umpire: SB Referring MD: Luciana Starks NP Topper Packer: Scott Sandhu MD Symptoms: hypoxia, HFpEF Study Quality: Adequate w contrast ECG Rhythm: Atrial Fibrillation Conclusions: - 1. Normal LV ejection fraction of 60 65% with mild LVH with elevated filling pressures 2. Moderately reduced RV systolic function by TAPSE 3. Severely enlarged left atrium 4. Bioprosthetic aortic valve present with mean gradient of 19 mmHg which is increased compared to prior study with trivial aortic regurgitation 5. Moderate to severe elevation right ventricular systolic pressure with significantly elevated right atrial pressures Findings Procedure Information Contrast agent, definity, is being given per protocol without apparent complications. The quality of the study was technically difficult. The study quality is limited by the patients inability to tolerate the test. Left Ventricle Normal left ventricular size and systolic function. There is mildly increased left ventricular wall thickness. The visually estimated ejection fraction is between 60-65%. There is no evidence of regional wall motion abnormalities. Diastolic function is indeterminate on the basis of available data. Elevated filling pressures. Right Ventricle The right ventricle was not well visualized. There is moderately decreased right ventricular systolic function. Atria The left atrium is severely dilated. Interatrial shunt cannot be excluded. The right atrium was not well visualized. Aortic Valve A bioprosthetic aortic valve is present. The aortic valve was not well visualized. The mean gradient is 19 mmHg. the bioprosthetic valve appears to be well seated without abnormal rocking motion Mitral Valve There is mild anterior and severe posterior mitral leaflet thickening. There is severe mitral annular calcification. There is no mitral valve stenosis. Pulmonic Valve The pulmonic valve was not well visualized. Tricuspid Valve There is mild tricuspid valve regurgitation. Significantly elevated right atrial pressure. Moderate to severe pulmonary hypertension is present. Great Vessels The aorta was not well visualized. The pulmonary artery was not well visualized. Venous The inferior vena cava is moderately dilated and does not collapse with inspiration. Pericardium/Pleural The pericardium was not well visualized. Prior Study Comparison Changes noted compared to prior study dated: 09/03/2021. the mean gradient across bioprosthetic valve is increased from 12 mm to 19 mm. Measurements 2D Linear Measurements IVSd: 1.40 0.6-0.9/0.6-1.0 cm LVIDd: 5.40 3.9-5.3/4.2-5.9 cm LVIDd Index: 3.10 2.4-3.2/2.2-3.1 cm/m2 LVIDs: 3.00 2.0-3.6 cm LVPWd: 1.20 0.7-1.1 cm LA Diam: 5.00 2.7-3.8/3.0-4.0 cm LAIDs Index: 2.87 1.5-2.3 cm/m2 LV Mass: 368.72 67-162/88-224 g LV Mass Index: 211.91 43-95/49-115 g/m2 LVOT Diam: 2.20 3.0+(-)1.3 cm 2D Systolic Function EF 4C: 70.50 >55% EF 2C: 61.10 >55% EF BiP: 65.70 >55% Mitral Valve MV VTI: 0.39 MV Pk Samson: 1.84 MV Mn Samson: 1.07 MV Pk Grad: 14.00 MV Mn Grad: 6.00 MV Pk E: 1.68 MV Decel Time: 214.00 E'Lateral: 5.91 E/E' Lat: 28.40 MVA Continuity: 2.06 Aortic Valve AoV Pk Samson: 2.83 AoV Mn Samson: 2.01 AoV VTI: 0.66 AoV Pk Grad: 32.00 Aov Mn Grad: 19.00 HALI Cont.VTI: 1.22 LVOT LVOT Pk Samson: 0.85 LVOT Mn Samson: 0.60 LVOT VTI: 0.21 LVOT Pk Grad: 3.00 LVOT Mn Grad: 2.00 LVOT Diam: 2.20 LVOT Area: 3.80 Diastolic Function MV Pk E: 1.68 E' Laterial: 5.91 E/E' Lat: 28.40 Right Ventricle TAPSE (mm): 12.60 TVS' Samson: 8.20 Tricuspid Valve TR Pk Samson: 3.51 TR Pk Grad: 49.00 RA Press: 15.00 RVSP: 64.00 Great Vessels Aorta Ao Asc: 3.10 2.1-3.4 cm Pulmonary Valve PV Pk Samson: 0.70 Peak PV Grad: 2.00 Updated in Other Vendor System with Status of Final Scott Sandhu MD electronically signed on 09/28/2022 4:07:40 PM with status of Final
[2022-09-28 07:45] VITALS: BP 144/63; PULSE 67; RESP 16; TEMP 36.4; O2SAT 97
[2022-09-28 08:51] LABS: INTERNATIONAL NORM RATIO 1.6 (0.9-1.1); Prothrombin Time 19.8 SEC (11.1-13.3)
[2022-09-28] MEDS: Cholecalciferol (Vitamin D3) 25 MCG TABLET 50 MCG PO (09:27)
[2022-09-28] MEDS: Folic Acid 1 MG TABLET PO (09:27)
[2022-09-28] MEDS: amLODIPine Besylate 5 MG TABLET PO (09:27)
[2022-09-28] MEDS: Furosemide 40 MG TABLET PO (09:27)
[2022-09-28] MEDS: Metoprolol Tartrate 12.5 MG HALFTAB PO ×2 (09:27→21:44)
[2022-09-28] MEDS: Sertraline HCL 25 MG TABLET PO (09:27)
[2022-09-28] MEDS: 0.9 % Sodium Chloride Flush 3 ML SYRINGE IVFLUSH ×3 (09:27→21:45)
[2022-09-28] MEDS: cefTRIAXone sodium 1 GM in 0.9 % Sodium Chloride 50 ML IV (09:28)
[2022-09-28 10:31] LABS: B Type Natriuretic Peptide 326 pg/mL (<100)
[2022-09-28 11:20] VITALS: BP 127/58; PULSE 56; RESP 16; TEMP 36.6; O2SAT 95
[2022-09-28 11:56] VITALS: O2SAT 86
--- NOTE | 2022-09-28 12:38 | MHC.CM.PN ---
Addendum entered by Kendra Daly 09/28/22 12:47: Per MD, pts D/C is cancelled at this time due to pt needing an Echo and labs drawn/monitored due to low INR. CM will continue to follow for D/C. Original Note: Pt medically cleared for D/C to [facility] for STR, transportation booked vi [facility] at 5pm today.
--- NOTE | 2022-09-28 12:42 | P.PNIM_ITS ---
Subjective Subjective Date of Service: 09/28/22 Interval History: Follow-up for patient with generalized weakness and deconditioning in the setting of UTI Patient reports no acute events overnight States she is feeling better, not as weak reports sob Review of Systems Review of Systems: Yes all other systems are reviewed and are negative Physical Exam Vital Signs: Vital Signs: Last Vital Signs Temp 97.8 F 09/28/22 11:20 Pulse 56 09/28/22 11:20 Resp 16 09/28/22 11:20 BP 127/58 L 09/28/22 11:20 Pulse Ox 86 L 09/28/22 11:56 O2 Del Method Nasal Cannula 09/28/22 11:20 O2 Flow Rate 2 09/28/22 11:20 BMI result Body Mass Index 33.2 Appearing in no acute distress lung sounds are clear to auscultation heart regular rate rhythm, clear S1, S2 positive bowel sounds, abdomen is soft, nontender neuro patient is alert x3, no focal deficits Objective Data Active Medications Acetaminophen (Acetaminophen 325 Mg Tablet) 650 mg PO Q6H PRN PRN Reason: Pain, Mild (Pain Scale 1-3) Last Admin: 09/28/22 04:58 Dose: 650 mg Documented By: VAZQUEZ Amlodipine Besylate (Amlodipine Besylate 5 Mg Tablet) 5 mg PO DAILY [facility]; Protocol Last Admin: 09/28/22 09:27 Dose: 5 mg Documented By: ANAT Atorvastatin Calcium (Atorvastatin Calcium 10 Mg Tablet) 10 mg PO BEDTIME [facility] Last Admin: 09/27/22 20:09 Dose: 10 mg Documented By: VAZQUEZ Docusate Sodium (Docusate Sodium 100 Mg Capsule) 100 mg PO DAILY PRN PRN Reason: Constipation Folic Acid (Folic Acid 1 Mg Tablet) 1 mg PO DAILY [facility] Last Admin: 09/28/22 09:27 Dose: 1 mg Documented By: ANAT Furosemide (Furosemide 40 Mg Tablet) 40 mg PO DAILY [facility]; Protocol Last Admin: 09/28/22 09:27 Dose: 40 mg Documented By: ANAT Furosemide (Furosemide 20 Mg/2 Ml Vial) 20 mg IVPUSH BID@0900,1800 [facility]; Protocol Ceftriaxone Sodium 1 gm/ (Sodium Chloride) 50 mls @ 100 mls/hr IV Q24H [facility] Last Infusion: 09/28/22 12:20 Dose: 0 mls/hr Documented By: ANAT Metoprolol Tartrate (Metoprolol Tartrate 12.5 Mg Halftab) 12.5 mg PO BID [facility]; Protocol Last Admin: 09/28/22 09:27 Dose: 12.5 mg Documented By: ANAT Multi-Ingred Cream/Lotion/Oil/Oint (Mineral Oil/Petrolatum,White 106 Gm Tube) 1 appl TOPICAL BEDTIME [facility]; Protocol Last Admin: 09/28/22 00:17 Dose: Not Given Documented By: VAZQUEZ Non-Admin Reason: not available Ondansetron HCl (Ondansetron Hcl 4 Mg/2 Ml Vial) 4 mg IVPUSH Q8H PRN PRN Reason: Nausea and Vomiting Pharmacy Consult (Consult Rx Perform Med Rec) 1 each MISCELLANE ONCE PRN PRN Reason: Consult order Sertraline HCl (Sertraline Hcl 25 Mg Tablet) 25 mg PO DAILY [facility] Last Admin: 09/28/22 09:27 Dose: 25 mg Documented By: ANAT Sodium Chloride (0.9 % Sodium Chloride Flush 3 Ml Syringe) 3 ml IVFLUSH QSHIFT [facility] Last Admin: 09/28/22 09:27 Dose: 3 ml Documented By: ANAT Vitamin D (Cholecalciferol (Vitamin D3) 25 Mcg Tablet) 50 mcg PO DAILY [facility] Last Admin: 09/28/22 09:27 Dose: 50 mcg Documented By: ANAT Warfarin Sodium (Warfarin Sodium 5 Mg Tablet) 5 mg PO DAILY@1800 [facility] Labs 09/26/22 06:07 09/26/22 06:07 Labs: Laboratory Results - last 24 hr 09/27/22 09/28/22 09/28/22 15:33 07:35 07:35 PT 19.8 H INR 1.6 H POC Glucose 155 H B-Natriuretic Peptide 326 H Microbiology Microbiology Results: Microbiology 09/25/22 Unknown Urine Culture - Final Urine Catheterized - Straight Catheter Escherichia coli Proteus mirabilis Assessment and Plan (1) UTI (urinary tract infection): Status: Acute (2) Generalized weakness: Status: Acute Plan Pt is an 82-year-old female with a PMH significant for?HFpEF, aortic stenosis s/p TAVR, persistent AFib on warfarin, rheumatoid arthritis, hx of CVA, remote hx ovarian cancer, HTN, and HLD who presents to the ED with?generalized weakness and inability to stand up at home.?UA was positive for UTI and pt admitted to the hospital for generalized weakness and deconditioning in the setting of UTI. Hx of HFpEF Does not appear to be in overt failure but still sob cxr negative for acute abnormality EKG similar to previous Trop 11.4 get echo lasix 20mg IV BID check BNP in the am ecoli, proteus UTI Continue ceftriaxone, started 09/25/2022 Chronic venous stasis dermatitis No cellulitis Left lower extremity May use them only and creams Subtherapeutic INR INR 1.6 increased warfarin dose to 5 mg daily for now Recheck INR in the morning HLD Continue statin Mood disorder Continue sertraline DVT prophylaxis with warfarin Full code Attending Dr. Coleman [facility] when medically clear Pt will require continued hospitalization for treating UTI with IV antibiotics and getting PT evaluation for safe disposition home.? Time Spent With Patient Time: Total time managing care of this patient today ____ minutes. Quality Stroke Does the patient have a stroke diagnosis?: No VTE Prior VTE?: No VTE Risk Level:: Medical - moderate - high VTE Device Contraindication: Treatment Not Indicated VTE Drug Contraindication: N/A - Med Ordered
[2022-09-28 15:52] VITALS: BP 150/69; PULSE 61; RESP 18; TEMP 35.9; O2SAT 93
[2022-09-28] MEDS: Furosemide 20 MG/2 ML VIAL IVPUSH (17:41)
[2022-09-28] MEDS: Warfarin Sodium 5 MG TABLET PO (17:41)
[2022-09-28 20:00] VITALS: BP 164/71; PULSE 67; RESP 18; TEMP 35.8; O2SAT 93
[2022-09-28] MEDS: Atorvastatin Calcium 10 MG TABLET PO (21:44)
[2022-09-29 03:39] VITALS: BP 146/65; PULSE 62; RESP 20; TEMP 36.4; O2SAT 94
[2022-09-29] MEDS: Acetaminophen 325 MG TABLET 650 MG PO (05:20)
[2022-09-29 07:17] LABS: INTERNATIONAL NORM RATIO 2.1 (0.9-1.1); Prothrombin Time 26.1 SEC (11.1-13.3)
--- NOTE | 2022-09-29 07:30 | P.DS_ITS ---
DS: Providers Provider Date of Service: 09/29/22 Date of admission: 09/25/22 12:48 Primary care physician: Riccardo Page MD DS: Diagnosis Discharge Diagnosis (1) UTI (urinary tract infection): Status: Acute (2) Generalized weakness: Status: Acute DS: Summary Hospital Course Hospital Course: History and physical as per admitting provider. Pt is an 82-year-old female with a PMH significant for?HFpEF, aortic stenosis s/p TAVR, persistent AFib on warfarin, rheumatoid arthritis, hx of CVA, remote hx ovarian cancer, HTN, and HLD who presents to the ED with?generalized weakness and inability to stand earlier today.? The patient sleeps in a recliner at baseline, and today when she attempted to stand with her walker was unable to do so.? Patient rested for another hour before attempting to stand again, failed again. She is incontinent of urine at baseline butreports increased urinary frequency with dark-colored urine.? Patient has a recent history of admissions both here and at [facility] with subsequent discharges to rehab.? Patient lives with her who was recently hospitalized here and discharged from rehab two nights prior on night. She says he is now in worse condition than her. Has some limited family support and visits by home health aide 3 times a week for house cleaning and meal preparation.? Patient reports decreased appetite and not eating anything except for or juice and crackers for the past 3 days. Also report chronic lower leg edema, worse on the left. Chronic SOB.? No fever, chills, nausea, vomiting, diarrhea. In the ED patient was afebrile but tachypneic up to 22 and hypertensive of 199/69, satting at 98% O2 on RA. Labs were significant for subtherapeutic INR at 1.5 and initial troponin 13.4., otherwise unremarkable.? Electrolytes WNL.? Hepatic function and renal function baseline. UA positive for UTI.? CXR showed no focal consolidation or pleural effusion but redemonstrated pulmonary vascular congestion.? Left hip x-ray found no significant abnormalities. EKG demonstrated atrial fibrillation with nonspecific T-wave abnormalities with a slow questions were questions. Pt was treated with acetaminophen, cephalexin, doxy, ceftriaxone, and IVF. Pt will be admitted to [facility] for generalized weakness and deconditioning in the setting of UTI. 82-year-old woman treated for E coli/Proteus UTI with IV Rocephin. Urinary symptoms of frequency subsided. Appetite increased. Patient will be discharged on 3 more days of Ceftin.. She also had some episodes of shortness of breath and chest heaviness. EKG was similar from previous did not show any acute abnormalities, she was treated with IV Lasix 20 mg b.i.d with down trend to BNP., troponin was flat at 11.4. Echocardiogram with preserved EF of 60-65% with mild LVH and elevated filling pressures with known history of pulmonary hypertension. Chest x-ray did not show any acute cardiopulmonary abnormalities and she has been on 2 L nasal cannula which she can continue at the rehab. She was noted to have a subtherapeutic INR with lowest reading of 1.4, her warfarin was increased to 5 mg daily with good effect, new reading 2.1. She may continue her pre-admission dose. Chronic venous stasis dermatitis. No cellulitis. may use emollient creams as needed HLD. Continue statin Mood disorder. Continue sertraline Time Spent with Patient Time attestation: Total time managing care of this patient today ____ minutes. Discharge coordination time: Greater than 30 minutes Quality: Safe Use of Opioids Does Pt have an Active Cancer Diagnosis on the Problem List?: No Quality: Stroke Does the patient have a stroke diagnosis?: No Physical Exam Vital Signs: Vital Signs: Last Vital Signs Temp 97.6 F 09/29/22 03:39 Pulse 62 09/29/22 03:39 Resp 20 09/29/22 03:39 BP 146/65 H 09/29/22 03:39 Pulse Ox 94 09/29/22 03:39 O2 Del Method Nasal Cannula 09/29/22 03:39 O2 Flow Rate 1 09/29/22 03:39 BMI result Body Mass Index 33.2 Appearing in no acute distress head is normocephalic atraumatic eyes pupils are PERRLA sclera is anicteric mouth throat mucous membranes are intact and moist neck is supple no lymphadenopathy, no JVD noted lung sounds are clear to auscultation heart regular rate rhythm, clear S1, S2 positive bowel sounds, abdomen is soft, nontender neuro patient is alert x3, no focal deficits DS: Data Data Completed and Pending Completed studies during hospitalization [Text1]: Procedures Transfusion of Nonautologous Red Blood Cells into Peripheral Vein, Percutaneous Approach (01/01/21) Labs on day of discharge: Laboratory Results - last 24 hr 09/28/22 09/28/22 09/29/22 07:35 07:35 06:38 PT 19.8 H 26.1 H D INR 1.6 H 2.1 H B-Natriuretic Peptide 326 H Discharge Plan Discharge Anticipated Discharge Date/Time: 09/29/22 10:26 Patient Disposition: Xfer Inpatient Rehab Fac Discharge Diagnosis: E coli, Proteus UTI Chronic venous stasis dermatitis Subtherapeutic INR Referrals: [facility] [Outside] - 1 Week Po,Riccardo Oropeza MD [Primary Care Provider] - 1 Week Discharge Medications: New amlodipine 5 mg Tablet 5 mg PO DAILY Qty: 30 0RF Protocol: Hold for SBP< HOLD for SBP < : 90 cefuroxime axetil 250 mg tablet 250 mg PO BID Qty: 6 0RF Continued ([facility] [place] Hospital bed See Rx Instructions .Route .MEDSUPPLY Qty: 1 0RF Rx Instructions: As directed furosemide 40 mg tablet 40 mg PO DAILY Qty: 90 3RF metoprolol tartrate 25 mg tablet 12.5 mg PO BID 90 Days Qty: 90 2RF sertraline [Zoloft] 25 mg tablet 25 mg PO DAILY Qty: 30 2RF ([facility] [facility] See Rx Instructions .Route .MEDSUPPLY Qty: 1 0RF Rx Instructions: As directed folic acid 1 mg tablet 1 mg PO DAILY Qty: 28 0RF cholecalciferol (vitamin D3) 50 mcg (2,000 unit) capsule 50 mcg PO DAILY Qty: 28 0RF warfarin 1 mg tablet 3 mg PO WE@1800 warfarin 1 mg tablet 2 mg PO SUMOTUTHFRSA@1800 Protocol: Dose Management Condition: Tuesday (Week One) Dose/Route: 2 mg Instruction: 2 x 1 mg tablets Condition: Tuesday Dose/Route: 2 mg Instruction: 2 x 1 mg tablets Condition: Tuesday Dose/Route: 2 mg Instruction: 2 x 1 mg tablets Condition: Tuesday Dose/Route: 3 mg Instruction: 3 x 1 mg tablets Condition: Dose/Route: 2 mg Instruction: 2 x 1 mg tablets Condition: Tuesday Dose/Route: 2 mg Instruction: 2 x 1 mg tablets Condition: Tuesday Dose/Route: 2 mg Instruction: 2 x 1 mg tablets Condition: Tuesday (Week Two) Dose/Route: 2 mg Instruction: 2 x 1 mg tablets Condition: Tuesday Dose/Route: 2 mg Instruction: 2 x 1 mg tablets Condition: Tuesday Dose/Route: 2 mg Instruction: 2 x 1 mg tablets Condition: Tuesday Dose/Route: 3 mg Instruction: 3 x 1 mg tablets Condition: Dose/Route: 2 mg Instruction: 2 x 1 mg tablets Condition: Tuesday Dose/Route: 2 mg Instruction: 2 x 1 mg tablets Condition: Tuesday Dose/Route: 2 mg Instruction: 2 x 1 mg tablets Protocol Text: Adjustment Start Date: Tuesday09/15/22 INR Value: 2.2 INR Date: 09/15/22 Recheck Date: 09/29/22 Additional Instructions: EAT A MIX OF FRUITS AND VEGETABLES Rx Instructions: or as directed simvastatin 20 mg tablet 20 mg PO BEDTIME (DME) blood-glucose meter [[employer] Ultra2 Meter] Kit See Rx Instructions .ROUTE .MEDSUPPLY Qty: 1 0RF Rx Instructions: As directed check the blood sugar once a day (DME) blood sugar diagnostic Strip See Rx Instructions .ROUTE .MEDSUPPLY Qty: 250 3RF Rx Instructions: Twice a day acetaminophen 500 mg capsule 1,000 mg PO Q6H PRN (Reason: Pain) Discharge Orders: Discharge Order (Routine); Ordered 09/29/22 Ordered By: Luciana Starks Diet: Advance to usual diet Activity on Discharge: As tolerated Stand Alone Forms: Patient Portal Discharge page Care Plan Goals: Complete resolution of symptoms Health Concerns: E coli, Proteus UTI Chronic venous stasis dermatitis Subtherapeutic INR Plan of Treatment: Follow-up with primary care provider as needed Take all medications as prescribed Assessment: See discharge summary
[2022-09-29 07:46] VITALS: BP 131/65; PULSE 63; RESP 20; TEMP 36.2; O2SAT 96
[2022-09-29 07:46] LABS: B Type Natriuretic Peptide 243 pg/mL (<100)
--- NOTE | 2022-09-29 08:46 | P.PNIM_ITS ---
Subjective Subjective Date of Service: 09/29/22 Interval History: Follow-up for patient with generalized weakness and deconditioning in the setting of UTI Patient reports no acute events overnight States she is feeling better, not as weak reports sob Review of Systems Review of Systems: Yes all other systems are reviewed and are negative Physical Exam Vital Signs: Vital Signs: Last Vital Signs Temp 97.2 F 09/29/22 07:46 Pulse 63 09/29/22 07:46 Resp 20 09/29/22 07:46 BP 131/65 09/29/22 07:46 Pulse Ox 96 09/29/22 07:46 O2 Del Method Nasal Cannula 09/29/22 07:46 O2 Flow Rate 2 09/29/22 07:46 BMI result Body Mass Index 33.2 Objective Data Active Medications Acetaminophen (Acetaminophen 325 Mg Tablet) 650 mg PO Q6H PRN PRN Reason: Pain, Mild (Pain Scale 1-3) Last Admin: 09/29/22 05:20 Dose: 650 mg Documented By: SHAQUILLE Amlodipine Besylate (Amlodipine Besylate 5 Mg Tablet) 5 mg PO DAILY [facility]; Protocol Last Admin: 09/28/22 09:27 Dose: 5 mg Documented By: ANAT Atorvastatin Calcium (Atorvastatin Calcium 10 Mg Tablet) 10 mg PO BEDTIME KIKI Last Admin: 09/28/22 21:44 Dose: 10 mg Documented By: VAZQUEZ Docusate Sodium (Docusate Sodium 100 Mg Capsule) 100 mg PO DAILY PRN PRN Reason: Constipation Folic Acid (Folic Acid 1 Mg Tablet) 1 mg PO DAILY [facility] Last Admin: 09/28/22 09:27 Dose: 1 mg Documented By: ANAT Furosemide (Furosemide 40 Mg Tablet) 40 mg PO DAILY [facility]; Protocol Last Admin: 09/28/22 09:27 Dose: 40 mg Documented By: ANAT Furosemide (Furosemide 20 Mg/2 Ml Vial) 20 mg IVPUSH BID@0900,1800 [facility]; Protocol Last Admin: 09/28/22 17:41 Dose: 20 mg Documented By: ANAT Ceftriaxone Sodium 1 gm/ (Sodium Chloride) 50 mls @ 100 mls/hr IV Q24H [facility] Last Infusion: 09/28/22 12:20 Dose: 0 mls/hr Documented By: ANAT Metoprolol Tartrate (Metoprolol Tartrate 12.5 Mg Halftab) 12.5 mg PO BID [facility]; Protocol Last Admin: 09/28/22 21:44 Dose: 12.5 mg Documented By: VAZQUEZ Multi-Ingred Cream/Lotion/Oil/Oint (Mineral Oil/Petrolatum,White 106 Gm Tube) 1 appl TOPICAL BEDTIME [facility]; Protocol Last Admin: 09/29/22 07:00 Dose: Not Given Documented By: VAZQUEZ Non-Admin Reason: Med Not Available Ondansetron HCl (Ondansetron Hcl 4 Mg/2 Ml Vial) 4 mg IVPUSH Q8H PRN PRN Reason: Nausea and Vomiting Pharmacy Consult (Consult Rx Perform Med Rec) 1 each MISCELLANE ONCE PRN PRN Reason: Consult order Sertraline HCl (Sertraline Hcl 25 Mg Tablet) 25 mg PO DAILY [facility] Last Admin: 09/28/22 09:27 Dose: 25 mg Documented By: ANAT Sodium Chloride (0.9 % Sodium Chloride Flush 3 Ml Syringe) 3 ml IVFLUSH QSHIFT [facility] Last Admin: 09/28/22 21:45 Dose: 3 ml Documented By: VAZQUEZ Vitamin D (Cholecalciferol (Vitamin D3) 25 Mcg Tablet) 50 mcg PO DAILY [facility] Last Admin: 09/28/22 09:27 Dose: 50 mcg Documented By: ANAT Warfarin Sodium (Warfarin Sodium 5 Mg Tablet) 5 mg PO DAILY@1800 [facility] Last Admin: 09/28/22 17:41 Dose: 5 mg Documented By: ANAT Labs 09/26/22 06:07 09/26/22 06:07 Labs: Laboratory Results - last 24 hr 09/28/22 09/28/22 09/29/22 07:35 07:35 06:38 PT 19.8 H 26.1 H D INR 1.6 H 2.1 H B-Natriuretic Peptide 326 H 09/29/22 06:38 PT INR B-Natriuretic Peptide 243 H Microbiology Microbiology Results: Microbiology 09/25/22 Unknown Urine Culture - Final Urine Catheterized - Straight Catheter Escherichia coli Proteus mirabilis Assessment and Plan (1) UTI (urinary tract infection): Status: Acute (2) Generalized weakness: Status: Acute Plan Pt is an 82-year-old female with a PMH significant for?HFpEF, aortic stenosis s/p TAVR, persistent AFib on warfarin, rheumatoid arthritis, hx of CVA, remote hx ovarian cancer, HTN, and HLD who presents to the ED with?generalized weakness and inability to stand up at home.?UA was positive for UTI and pt admitted to the hospital for generalized weakness and deconditioning in the setting of UTI. Hx of HFpEF Does not appear to be in overt failure but still sob cxr negative for acute abnormality EKG similar to previous Trop 11.4 get echo lasix 20mg IV BID check BNP in the am ecoli, proteus UTI Continue ceftriaxone, started 09/25/2022 Chronic venous stasis dermatitis No cellulitis Left lower extremity May use them only and creams Subtherapeutic INR. resolved INR 2.1 increased warfarin dose to 5 mg daily for now HLD Continue statin Mood disorder Continue sertraline DVT prophylaxis with warfarin Full code Attending Dr. Coleman [facility] STR when medically clear Pt will require continued hospitalization for treating UTI with IV antibiotics and getting PT evaluation for safe disposition home.? Time Spent With Patient Time: Total time managing care of this patient today ____ minutes. Quality Stroke Does the patient have a stroke diagnosis?: No VTE Prior VTE?: No VTE Risk Level:: Medical - moderate - high VTE Device Contraindication: Treatment Not Indicated VTE Drug Contraindication: N/A - Med Ordered
[2022-09-29] MEDS: Furosemide 20 MG/2 ML VIAL IVPUSH (09:06)
[2022-09-29] MEDS: 0.9 % Sodium Chloride Flush 3 ML SYRINGE IVFLUSH (09:08)
[2022-09-29] MEDS: cefTRIAXone sodium 1 GM in 0.9 % Sodium Chloride 50 ML IV (09:14)
[2022-09-29] MEDS: Metoprolol Tartrate 12.5 MG HALFTAB PO (09:18)
[2022-09-29] MEDS: Sertraline HCL 25 MG TABLET PO (09:18)
[2022-09-29] MEDS: amLODIPine Besylate 5 MG TABLET PO (09:18)
[2022-09-29 10:13] VITALS: BP 131/65; PULSE 63; O2SAT 96
--- NOTE | 2022-09-29 13:42 | MHC.CM.PN ---
Pt is medically cleared for D/C to [facility] for STR. Transportation booked via [facility].
--- NOTE | 2023-03-20 14:08 | ED.GENADULT ---
HPI - General Adult General Chief complaint: General Medical Stated complaint: Weakness/ Heavy Chest Pain Time Seen by Provider: 09/25/22 04:15 Source: patient Mode of arrival: EMS Limitations: no limitations Related Data Home Medications Medication Instructions Recorded Confirmed acetaminophen 500 mg capsule 1,000 mg PO Q6H PRN Pain 09/15/22 11/25/22 Previous Rx's Medication Instructions Recorded blood sugar diagnostic #250 ea 07/29/21 blood-glucose meter (OneTouch #1 ea 07/29/21 Ultra2 Meter kit) Hospital bed #1 ea 09/16/21 metoprolol tartrate 25 mg tablet 12.5 mg (1/2 x 25 mg) PO BID 90 07/26/22 days #90 tabs hospital mattress #1 ea 08/10/22 oxycodone 5 mg tablet 2.5 mg (1/2 x 5 mg) PO BID PRN 10/07/22 pain (scale score 7-10) #10 tabs furosemide 40 mg tablet 40 mg PO BID 90 days #180 tabs 11/22/22 blood sugar diagnostic (OneTouch #100 ea 12/01/22 Ultra Test strips) blood-glucose meter #1 ea 12/01/22 lancets #100 ea 12/01/22 cholecalciferol (vitamin D3) 50 50 mcg PO DAILY #90 caps 12/08/22 mcg (2,000 unit) capsule folic acid 1 mg tablet 1 mg PO DAILY #90 tabs 12/08/22 simvastatin 20 mg tablet 20 mg PO DAILY #90 tabs 12/08/22 warfarin 1 mg tablet 2 mg PO SUMOTUTHFRSA@1800 #100 tabs 02/11/23 warfarin 1 mg tablet 3 mg PO WE@1800 #60 tabs 02/11/23 sertraline 25 mg tablet (Zoloft) 25 mg PO DAILY #90 tabs 03/07/23 INR strips ACELIS #60 ea 03/11/23 prothrombin time test strips #48 ea 03/11/23 Allergies Allergy/AdvReac Type Severity Reaction Status Date / Time shellfish derived Allergy Unknown itchy Verified 01/25/23 05:21 procaine [From Novocain] AdvReac Unknown makes Verified 01/25/23 05:21 patient itchy,puffy PMFSH Past Medical History Medical History (Updated 03/11/23 @ 08:49 by Jeannie Willard RN) Persistent atrial fibrillation Chronic hypoxemic respiratory failure Rash Constipation Impaired mobility and ADLs Pulmonary hypertension Chronic diastolic (congestive) heart failure Pancytopenia Congestive heart failure Pulmonary hypertension Nonrheumatic aortic valve stenosis CHF exacerbation Acute pyelonephritis Chronic anticoagulation Pneumonia (HFpEF) heart failure with preserved ejection fraction Sepsis Lumbar vertebral fracture CVA (cerebral vascular accident) TIA (transient ischemic attack) Uterine cancer Anxiety and depression Obesity (BMI 30-39.9) Rheumatoid arthritis Hypercholesterolemia Hypertension Atrial fibrillation Type 2 diabetes mellitus with hyperglycemia Surgical History Status post transcatheter aortic valve replacement History of transcatheter aortic valve replacement (TAVR) (~06/19/21) History of colonoscopy History of appendectomy History of right knee joint replacement History of left knee replacement S/P ANTONIO-BSO Family History Family History Father Diabetes CAD (coronary artery disease) Mother Diabetes Hypertension Perforated ulcer Sister Diabetes Social History Social History Household Members: Significant Other Housing: Halfway Housing Other:: lives with spouse Do you presently have visiting nurse or other home services: No Alcohol intake: never Comment: 1:1 sitter Patient Tobacco Use Status: Never used Tobacco e-Cigarette/Vaping Use: Never Used Second Hand Smoke Exposure: No Advance Directives Date on File: 09/03/21 service: No Current occupational status: retired 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[employer], 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 [employer] Current occupational exposures/hazards: No Cognitive needs: Yes (cane, walker) Hearing needs: No Vision needs: Yes (glasses) Physical Exam ED Vital Signs: BMI result Body Mass Index 33.2 Medications Administered Discontinued Medications Generic Name Dose Route Start Last Admin Trade Name Freq PRN Reason Stop Dose Admin Acetaminophen 975 mg 09/25/22 04:32 09/25/22 05:14 Acetaminophen 325 Mg Tablet PO 09/25/22 04:33 975 mg ONCE ONE Administration Acetaminophen 650 mg 09/25/22 12:48 09/29/22 05:20 Acetaminophen 325 Mg Tablet PO 650 mg Q6H PRN Administration Pain, Mild (Pain Scale 1-3) Albuterol Sulfate 2.5 mg 09/27/22 12:00 09/27/22 11:49 Albuterol Sulfate (0.083%) 2.5 Mg/3 Ml Vial.Neb INHALE 2.5 mg RQ4H WHILE AWAKE KIKI Administration Amlodipine Besylate 5 mg 09/25/22 16:50 09/29/22 09:18 Amlodipine Besylate 5 Mg Tablet PO 5 mg DAILY KIKI Administration Protocol Atorvastatin Calcium 10 mg 09/25/22 21:00 09/28/22 21:44 Atorvastatin Calcium 10 Mg Tablet PO 10 mg BEDTIME KIKI Administration Cephalexin HCl 500 mg 09/25/22 04:51 09/25/22 05:14 Cephalexin 500 Mg Capsule PO 09/25/22 04:52 500 mg ONCE ONE Administration Doxycycline Monohydrate 100 mg 09/25/22 04:53 09/25/22 05:14 Doxycycline Monohydrate 100 Mg Capsule PO 09/25/22 04:54 100 mg ONCE ONE Administration Folic Acid 1 mg 09/25/22 13:00 09/29/22 09:08 Folic Acid 1 Mg Tablet PO Not Given DAILY KIKI Furosemide 40 mg 09/25/22 13:00 09/28/22 09:27 Furosemide 40 Mg Tablet PO 40 mg DAILY KIKI Administration Protocol Furosemide 40 mg 09/27/22 11:24 09/27/22 11:32 Furosemide 40 Mg/4 Ml Vial IVPUSH 09/27/22 11:25 40 mg STAT STA Administration Protocol Furosemide 20 mg 09/28/22 18:00 09/29/22 09:06 Furosemide 20 Mg/2 Ml Vial IVPUSH 20 mg BID@0900,1800 KIKI Administration Protocol Ceftriaxone Sodium 1 gm/ 50 mls @ 100 mls/hr 09/25/22 09:12 09/25/22 10:18 Sodium Chloride IV 09/25/22 09:41 Infused ONCE ONE Infusion Sodium Chloride 1,000 mls @ 999 mls/hr 09/25/22 10:14 09/25/22 13:03 Ns IV 09/25/22 11:14 Infused .Q1H1M STA Infusion Ceftriaxone Sodium 1 gm/ 50 mls @ 100 mls/hr 09/26/22 09:00 09/29/22 10:15 Sodium Chloride IV Infused Q24H KIKI Infusion Metoprolol Tartrate 12.5 mg 09/25/22 13:00 09/29/22 09:18 Metoprolol Tartrate 12.5 Mg Halftab PO 12.5 mg BID [facility] Administration Protocol Multi-Ingred Cream/Lotion/Oil/Oint 1 appl 09/25/22 21:00 09/29/22 07:00 Mineral Oil/Petrolatum,White 106 Gm Tube TOPICAL Not Given BEDTIME [facility] Protocol Sertraline HCl 25 mg 09/25/22 13:00 09/29/22 09:18 Sertraline Hcl 25 Mg Tablet PO 25 mg DAILY [facility] Administration Sodium Chloride 3 ml 09/25/22 16:00 09/29/22 09:08 0.9 % Sodium Chloride Flush 3 Ml Syringe IVFLUSH 3 ml QSHIFT [facility] Administration Tramadol HCl 50 mg 09/25/22 22:04 09/25/22 22:43 Tramadol Hcl 50 Mg Tablet PO 09/25/22 22:05 50 mg ONCE ONE Administration Vitamin D 50 mcg 09/25/22 13:00 09/29/22 09:08 Cholecalciferol (Vitamin D3) 25 Mcg Tablet PO Not Given DAILY [facility] Warfarin Sodium 2 mg 09/25/22 18:00 09/25/22 17:34 Warfarin Sodium 2 Mg Tablet PO 2 mg SUMOTUTHFRSA@1800 [facility] Administration Warfarin Sodium 3 mg 09/26/22 18:00 09/26/22 17:35 Warfarin Sodium 3 Mg Tablet PO 3 mg DAILY@1800 [facility] Administration Warfarin Sodium 5 mg 09/27/22 18:00 09/27/22 17:33 Warfarin Sodium 5 Mg Tablet PO 09/27/22 18:01 5 mg ONCE@1800 ONE Administration Warfarin Sodium 5 mg 09/28/22 18:00 09/28/22 17:41 Warfarin Sodium 5 Mg Tablet PO 5 mg DAILY@1800 [facility] Administration Medical Decision Making Lab Data 09/26/22 06:07 09/26/22 06:07 Labs: Lab Results 09/25/22 09/25/22 09/25/22 Range/Units 02:54 03:37 05:28 WBC 7.9 (4.8-10.8) X10*3/uL RBC 3.62 L (4.20-5.50) X10*6/uL Hgb 10.3 L (12.0-16.0) g/dl Hct 33.8 L (37.0-47.0) % MCV 93.4 (80.0-98.0) fL MCH 28.5 (27.0-33.0) pg MCHC 30.5 L (31.0-35.0) g/dl RDW 15.2 (11.0-16.0) % Plt Count 191 (160-400) X10*3/uL MPV 10.1 (9.4-12.3) fL Immature Gran % (Auto) 0.4 (0.0-0.4) % Neut % (Auto) 72.4 (45-73) % Lymph % (Auto) 13.4 L (20-40) % [place] % (Auto) 9.7 (2-11) % Eos % (Auto) 3.7 (0-4) % Baso % (Auto) 0.4 (0-2) % Lymph # (Auto) 1.1 L (1.2-4.9) X10*3/uL [place] # (Auto) 0.8 (0.1-1.2) X10*3/uL Eos # (Auto) 0.3 (0.0-0.4) X10*3/uL Baso # (Auto) 0.0 (0.0-0.2) X10*3/uL Abs Immat Gran (auto) 0.03 (0.00-0.03) X10*3/uL Absolute Neuts (auto) 5.8 (2.0-8.3) x10*3/uL Absolute Nucleated RBC 0.000 (0.0-0.012) X10*3/uL Nucleated RBC % (auto) 0.0 (0.0-0.2) /100WBC PT 18.1 H (11.1-13.3) SEC INR 1.5 H (0.9-1.1) Sodium 142 (135-145) mmol/L Potassium 4.2 (3.3-5.1) mmol/L Chloride 103 (96-108) mmol/L Carbon Dioxide 29 (22-29) mmol/L Anion Gap 14 (12-20) BUN 17 H (9-16) mg/dL Creatinine 0.74 (0.5-1.4) mg/dL Estim Creat Clear Calc 53.7 Estimated GFR > 60 POC Glucose 118 H (60-115) mg/dL Random Glucose 118 H (60-115) mg/dL Calcium 9.6 D (8.4-10.2) mg/dL Total Bilirubin 1.0 (0.0-1.0) mg/dL AST 12 (5-31) U/L ALT < 5 (0-31) U/L Alkaline Phosphatase 111 (39-117) U/L Troponin I High Sens 13.4 (<3.5-17.0) ng/L Total Protein 8.1 H (6.5-8.0) g/dL Albumin 3.4 L (3.5-5.0) g/dL Urine Color Urine Appearance Urine pH (5.0-9.0) Ur Specific [place] (1.005-1.025) Urine Protein (Neg-Trace) mg/dL Urine Glucose (UA) (Negative) mg/dL Urine Ketones (Negative) mg/dL Urine Blood (Negative) Urine Nitrite (Negative) Ur Leukocyte Esterase (Negative) Urine RBC (0-2) /HPF Urine WBC (0-5) /HPF Ur Squamous Epith Cells (0-2) /HPF Urine Bacteria (None Seen) Hyaline Casts (0-2) /LPF 09/25/22 Range/Units 07:01 WBC (4.8-10.8) X10*3/uL RBC (4.20-5.50) X10*6/uL Hgb (12.0-16.0) g/dl Hct (37.0-47.0) % MCV (80.0-98.0) fL MCH (27.0-33.0) pg MCHC (31.0-35.0) g/dl RDW (11.0-16.0) % Plt Count (160-400) X10*3/uL MPV (9.4-12.3) fL Immature Gran % (Auto) (0.0-0.4) % Neut % (Auto) (45-73) % Lymph % (Auto) (20-40) % [place] % (Auto) (2-11) % Eos % (Auto) (0-4) % Baso % (Auto) (0-2) % Lymph # (Auto) (1.2-4.9) X10*3/uL [place] # (Auto) (0.1-1.2) X10*3/uL Eos # (Auto) (0.0-0.4) X10*3/uL Baso # (Auto) (0.0-0.2) X10*3/uL Abs Immat Gran (auto) (0.00-0.03) X10*3/uL Absolute Neuts (auto) (2.0-8.3) x10*3/uL Absolute Nucleated RBC (0.0-0.012) X10*3/uL Nucleated RBC % (auto) (0.0-0.2) /100WBC PT (11.1-13.3) SEC INR (0.9-1.1) Sodium (135-145) mmol/L Potassium (3.3-5.1) mmol/L Chloride (96-108) mmol/L Carbon Dioxide (22-29) mmol/L Anion Gap (12-20) BUN (9-16) mg/dL Creatinine (0.5-1.4) mg/dL Estim Creat Clear Calc Estimated GFR POC Glucose (60-115) mg/dL Random Glucose (60-115) mg/dL Calcium (8.4-10.2) mg/dL Total Bilirubin (0.0-1.0) mg/dL AST (5-31) U/L ALT (0-31) U/L Alkaline Phosphatase (39-117) U/L Troponin I High Sens (<3.5-17.0) ng/L Total Protein (6.5-8.0) g/dL Albumin (3.5-5.0) g/dL Urine Color Yellow Urine Appearance Cloudy Urine pH 7.0 (5.0-9.0) Ur Specific [place] 1.020 (1.005-1.025) Urine Protein 30 (1+) H (Neg-Trace) mg/dL Urine Glucose (UA) Negative (Negative) mg/dL Urine Ketones Negative (Negative) mg/dL Urine Blood Negative (Negative) Urine Nitrite Positive H (Negative) Ur Leukocyte Esterase Moderate (2+) H (Negative) Urine RBC 0-2 (0-2) /HPF Urine WBC 21-50 H (0-5) /HPF Ur Squamous Epith Cells 3-5 (0-2) /HPF Urine Bacteria 4+ (None Seen) Hyaline Casts 0-2 (0-2) /LPF Discharge Plan Discharge Clinical Impression: UTI (urinary tract infection) Patient Disposition: Admitted As Inpatient Interventions: Admission Worksheet (ED) Last Done: 09/25/22 14:37 Discharge Date/Time: 09/25/22 14:37
== END 2022-09-29 13:54 | DRG 690 ==
LOC: HO.ED 09:08 → HO.EDOVER 13:18 → HO.IMC 13:58
PROVIDERS: Emergency Medicine; Admitting Provider Student in an Organized Health Care Education/Training Program; Emergency Provider Emergency Medicine Emergency Medical Services; PCP Internal Medicine; Visit Provider Nurse Practitioner Acute Care
DX: N39.0 Urinary tract infection, site not specified (principal); I50.32 Chronic diastolic (congestive) heart failure; I48.19 Other persistent atrial fibrillation; E11.9 Type 2 diabetes mellitus without complications; I11.0 Hypertensive heart disease with heart failure; F39 Unspecified mood [affective] disorder; E78.5 Hyperlipidemia, unspecified; R79.1 Abnormal coagulation profile; M06.9 Rheumatoid arthritis, unspecified; I87.2 Venous insufficiency (chronic) (peripheral); B96.20 Unspecified Escherichia coli [E. coli] as the cause of diseases classified elsewhere; B96.4 Proteus (mirabilis) (morganii) as the cause of diseases classified elsewhere; Z86.73 Personal history of transient ischemic attack (TIA), and cerebral infarction without residual deficits; Z85.43 Personal history of malignant neoplasm of ovary; Z79.01 Long term (current) use of anticoagulants; Z95.2 Presence of prosthetic heart valve; Z79.899 Other long term (current) drug therapy
CPT/HCPCS: 36415; 71045; 71046; 73502; 80048; 80053; 81001; 82947; 83880; 84484; 85025; 85027; 85610; 87086; 87088; 87186; 93005; 93306; 94640; 97116; 97161; 99285; J0696; J1940; Q9957

== ENCOUNTER → 2022-09-25 08:23 | Outpatient (BNV) | payer MEDICARE, OTHER, SELFPAY | PROVIDERS: Admitting Provider Student in an Organized Health Care Education/Training Program; Emergency Provider Emergency Medicine Emergency Medical Services; PCP Internal Medicine; Visit Provider Internal Medicine Cardiovascular Disease | DX: I48.91 Unspecified atrial fibrillation (principal) | CPT/HCPCS: 93010 ==

== ENCOUNTER 2022-09-25 12:48 | Outpatient (BNV) | payer MEDICARE, OTHER, SELFPAY | END 2022-09-27 11:15 | PROVIDERS: Admitting Provider Student in an Organized Health Care Education/Training Program; Emergency Provider Emergency Medicine Emergency Medical Services; PCP Internal Medicine; Visit Provider Internal Medicine Cardiovascular Disease | DX: I48.91 Unspecified atrial fibrillation (principal) | CPT/HCPCS: 93010 ==

== ENCOUNTER 2022-09-25 12:48 | Outpatient (BNV) | payer MEDICARE, OTHER, SELFPAY | END 2022-09-28 07:00 | PROVIDERS: Admitting Provider Student in an Organized Health Care Education/Training Program; Emergency Provider Emergency Medicine Emergency Medical Services; PCP Internal Medicine; Visit Provider Internal Medicine Cardiovascular Disease | DX: I27.20 Pulmonary hypertension, unspecified (principal); I34.81 Nonrheumatic mitral (valve) annulus calcification; Z95.2 Presence of prosthetic heart valve | CPT/HCPCS: 93306 ==

== ENCOUNTER → 2022-09-25 12:48 | Outpatient (BNV) | payer MEDICARE, OTHER, SELFPAY | PROVIDERS: Admitting Provider Student in an Organized Health Care Education/Training Program; Emergency Provider Emergency Medicine Emergency Medical Services; PCP Internal Medicine; Visit Provider Student in an Organized Health Care Education/Training Program | DX: N39.0 Urinary tract infection, site not specified (principal); R53.1 Weakness | CPT/HCPCS: 99223; 99232; 99239 ==

== ENCOUNTER 2022-10-02 16:46 | Inpatient (IN) | payer MEDICARE, OTHER, SELFPAY ==
--- NOTE | ~2022-10-02 | CT_ITS ---
EXAMINATION: CT ABDOMEN AND PELVIS WITH CONTRAST CLINICAL INFORMATION: Pain. COMPARISON: CT of the abdomen and pelvis done on 01/13/2022 and 01/29/2021. TECHNIQUE: Multidetector volumetric images were obtained from the superior aspect of the liver through the pubic symphysis following administration 85 mL of Omnipaque 350 intravenous contrast. Sagittal and coronal reformatted images were obtained on the technologist's workstation. Oral contrast: No This CT examination was performed using dose optimization techniques as appropriate, variously including the following: *Automated exposure control *Adjustment of mA and/or kV according to patient size (this includes techniques or standardized protocols for targeted exams where dose is matched to indication/reason for exam; i.e. extremities or head) *Use of iterative reconstruction technique DLP: 948 mGy-cm FINDINGS: LUNG BASES: Bibasilar airspace disease likely represent hypoventilatory changes, new since prior study. Moderate to severe cardiomegaly, unchanged. Postop changes of TAVR. LIVER, GALLBLADDER, AND BILIARY TREE: The liver shows subtle surface irregularity, may represent diffuse liver disease without evidence of any superimposed discrete focal lesion. Portal vein is patent. Multiple calcified gallstones without wall thickening or pericholecystic fluid. Biliary tree is decompressed. PANCREAS: Unremarkable. SPLEEN: Abnormal. Subcapsular hypodensity present along the anterior aspect of the mid part of the spleen, measures approximately 3.8 x 2.6 cm (209:4), new since 01/29/2021 and 01/13/2022. Additional subcapsular hypodensity seen along the posterior inferior outer cortex of the spleen measuring approximately 1.6 cm appear stable since 01/29/2021. ADRENAL GLANDS: Unremarkable. KIDNEYS AND URETERS: Nonobstructing bilateral subcentimeter radiopaque renal calculi are present within the inferior calyces, better visualized on prior noncontrast CT study done on 01/13/2022. Previously documented right ureteric calculus is no longer reproduced. BLADDER: Unremarkable. GASTROINTESTINAL TRACT: Small sliding hiatal hernia. The stomach, small and large bowel loops are decompressed. Significant fecal residual within the large bowel. ABDOMINAL WALL: No significant hernia is appreciated. LYMPH NODES: Solitary solitary bilateral external iliac (right greater than left) lymphadenopathy with maximum short axis dimension of 1.1 cm (584:4). VASCULAR: Calcific atherosclerotic disease of the aorta without aneurysm formation. PELVIC VISCERA: There is no pelvic mass present. No evidence of any free fluid and/or free air. OSSEOUS STRUCTURES: Persistent stable severe compression fracture of mid to anterior part of L2 vertebral body and moderate to severe diffuse osteopenia and multilevel moderate degenerative spondylosis, stable since 01/13/2022. CT/CT abdomen pelvis w IV con IMPRESSION: 1. Bilateral nonobstructing radiopaque calculi, better visualized on prior noncontrast study done on 01/13/2022. Previously documented right distal ureteric calculus is not reproduced in the current study. 2. Interval development of subcapsular 3.8 x 2.6 cm hypodense lesion along the anterior aspect of the mid part of the spleen, may represent splenic infarction versus laceration in this patient has any history of recent trauma. A second smaller subcapsular hypodense lesion appears stable since 01/29/2021. 3. The liver shows subtle surface nodularity, may represent underlying chronic diffuse liver disease. Please correlate clinically. 4. Bibasilar airspace disease at both lung bases likely represent hypoventilatory changes. 5. Moderate to severe cardiomegaly. 6. Solitary bilateral external iliac (right greater than left) lymphadenopathy with maximum short axis dimension of 1.1 cm. 7. Persistent stable severe compression fracture at mid to anterior part of L2 vertebral body with moderate to severe diffuse osteopenia and superimposed multilevel moderate degenerative spondylosis, unchanged since 01/13/2022. 8. Diffuse calcific atherosclerotic disease of the aorta and its branches. Fleischner guidelines were followed.
--- NOTE | ~2022-10-02 | CT_ITS ---
EXAMINATION: CT ABDOMEN AND PELVIS WITH CONTRAST CLINICAL INFORMATION: COMPARISON: Previous CT scans most recent 10/02/2022 TECHNIQUE: Multidetector volumetric images were obtained from the superior aspect of the liver through the pubic symphysis following administration 85 mL of Omnipaque 350 intravenous contrast. Sagittal and coronal reformatted images were obtained on the technologist's workstation. Oral contrast: Yes This CT examination was performed using dose optimization techniques as appropriate, variously including the following: *Automated exposure control *Adjustment of mA and/or kV according to patient size (this includes techniques or standardized protocols for targeted exams where dose is matched to indication/reason for exam; i.e. extremities or head) *Use of iterative reconstruction technique DLP: 713 mGy-cm FINDINGS: LUNG BASES: The heart is enlarged. There is an aortic valve stent graft. There is bilateral lower lobe subsegmental atelectasis and trace pleural effusions, left greater than right. LIVER, GALLBLADDER, AND BILIARY TREE: The liver is low in attenuation suggestive of fatty infiltration. Question mild cirrhotic changes of the liver. Gallstones. No biliary duct dilatation. PANCREAS: Atrophic changes. SPLEEN: Spleen is slightly enlarged measuring 14 cm in length. There is a wedge-shaped peripheral area in the anterior spleen measuring 2.5 x 3.2 cm. Similar to previous recent exam 10/02/2022. Differential would include infarcts and changes related to trauma. There is a 1 cm low-attenuation lesion in the inferior spleen axial image 38 series 3. This is similar to previous old contrast-enhanced CT and and probably represents a small benign hemangioma. No ascites adjacent to the spleen is seen. ADRENAL GLANDS: Unremarkable. KIDNEYS AND URETERS: Small bilateral renal stones. Areas of cortical thinning or scarring. Question small centimeter cyst in the lower pole of the left kidney. No imaging follow-up recommended. No hydronephrosis, ureteral dilatation or ureteral stone. BLADDER: Unremarkable. GASTROINTESTINAL TRACT: Severe constipation. Diverticulosis. Small and large bowel is otherwise normal. Normal stomach. ABDOMINAL WALL: No significant hernia is appreciated. LYMPH NODES: Stable upper normal-size pelvic retroperitoneal lymph nodes. No enlarged lymph nodes. No ascites. VASCULAR: Atherosclerotic disease. No aneurysm. PELVIC VISCERA: The uterus appears to have been removed. No pelvic mass. OSSEOUS STRUCTURES: Old L2 compression fracture unchanged. Osteopenia and degenerative changes of the spine and hip joints. CT/CT abdomen pelvis w IV con IMPRESSION: Slightly enlarged spleen. Stable wedge-shaped low-attenuation peripheral lesion in the anterior spleen probably representing an infarct from recent exam 10/02/2022.. Differential would include changes related to trauma. Stable 1 cm inferior splenic lesion probably representing a benign hemangioma. Question mild cirrhotic changes of the liver. Gallstones. Bilateral renal stones. Diverticulosis. Fleischner guidelines were followed.
--- NOTE | ~2022-10-02 | XR_ITS ---
EXAMINATION: XR CHEST CLINICAL INFORMATION: Shortness of breath. COMPARISON: Chest radiograph done on 09/27/2022. TECHNIQUE: Frontal view of the chest was obtained. FINDINGS: Mild pulmonary venous congestion is present. Postop changes of TAVR is noted. No evidence of any pleural effusion or pneumothorax. Persistent right infrahilar asymmetric soft tissue fullness, for indeterminate etiology. The visualized upper abdomen is unremarkable. XR/XR chest 1V IMPRESSION: 1. Mild pulmonary venous congestion. 2. Persistent right infrahilar asymmetric soft tissue fullness, indeterminate etiology.
[2022-10-02 16:53] VITALS: BP 138/53; BP 140/52; PULSE 54; PULSE 59; RESP 18; TEMP 36.8; O2SAT 96; BMI 33.4
--- NOTE | 2022-10-02 17:11 | ECG_ITS ---
Test Reason : CHEST PAIN Blood Pressure : / mmHG Vent. Rate : 055 BPM Atrial Rate : 000 BPM P-R Int : 000 ms QRS Dur : 148 ms QT Int : 540 ms P-R-T Axes : 000 091 -33 degrees QTc Int : 516 ms Atrial fibrillation with slow ventricular response Right bundle branch block T wave abnormality, consider inferior ischemia Abnormal ECG When compared with ECG of 27-SEP-2022 11:15, T wave inversion more evident in Anterior leads Referred By: Tony Brian Electronically Signed By:JESÚS TAYLOR
--- NOTE | 2022-10-02 17:39 | ED_ITS ---
HPI - Abdominal Pain General Chief Complaint: Abdominal Pain Stated Complaint: L sided abd pain x4hrs from SNF Time Seen by Provider: 10/02/22 17:01 Source: patient Mode of arrival: EMS Limitations: no limitations History of Present Illness HPI narrative: 82 year old female with past medical history of heart failure with preserved ejection fraction, atrial fibrillation, diabetes, hypertension, hypercholesterolemia, and TAVR presents to the ED with CC of left side abdominal pain that radiates to left arm. Pain started today around 12:30pm, shortly after eating a hamburger. Pain is intermittent, but is sharp and occurs simultaneously. Admits to shortness of breath, but denies chest pain. Denies fever, nausea, vomiting, constipation, diarrhea, and hematochezia. Denies ever experiencing these symptoms in the past. Reports surgical history of 3 sections. Of note, patient was discharged facility 3 days ago for UTI MD elicited complaint: abdominal pain Related Data Home Medications Medication Instructions Recorded Confirmed acetaminophen 500 mg capsule 1,000 mg PO Q6H PRN Pain 09/15/22 09/25/22 simvastatin 20 mg tablet 20 mg PO BEDTIME 09/25/22 09/25/22 warfarin 1 mg tablet 2 mg PO SUMOTUTHFRSA@1800 09/25/22 09/25/22 warfarin 1 mg tablet 3 mg PO WE@1800 09/25/22 09/25/22 Previous Rx's Medication Instructions Recorded blood sugar diagnostic #250 ea 07/29/21 blood-glucose meter (OneTouch #1 ea 07/29/21 Ultra2 Meter kit) Hospital bed #1 ea 09/16/21 furosemide 40 mg tablet 40 mg PO DAILY #90 tabs 12/31/21 metoprolol tartrate 25 mg tablet 12.5 mg PO BID 90 days #90 tabs 07/26/22 sertraline 25 mg tablet (Zoloft) 25 mg PO DAILY #30 tabs 07/26/22 hospital mattress #1 ea 08/10/22 cholecalciferol (vitamin D3) 50 50 mcg PO DAILY #28 caps 09/17/22 mcg (2,000 unit) capsule folic acid 1 mg tablet 1 mg PO DAILY #28 tabs 09/17/22 amlodipine 5 mg tablet 5 mg PO DAILY #30 tabs 09/29/22 cefuroxime axetil 250 mg tablet 250 mg PO BID #6 tabs 09/29/22 Allergies Allergy/AdvReac Type Severity Reaction Status Date / Time shellfish derived Allergy Unknown itchy Verified 09/25/22 03:06 procaine [From Novocain] AdvReac Unknown makes Verified 09/25/22 03:06 patient itchy,puffy Review of Systems Constitutional: Reports as per HPI, Denies chills and Denies fever(s) Cardiovascular: Denies chest pain, Denies leg edema, Reports radiating jaw, neck or arm pain (left arm) and Reports dyspnea Respiratory: Denies cough and Reports dyspnea Gastrointestinal: Reports abdominal pain (Left sided pain), Denies hematochezia, Denies change in bowel habits, Denies diarrhea, Denies nausea and Denies vomiting Genitourinary: Denies hematuria and Denies dysuria Musculoskeletal: Denies arthralgias and Denies muscle weakness Denies focal weakness and Denies Sensory deficit (Neuro) [facility] Past Medical History Medical History (HFpEF) heart failure with preserved ejection fraction Acute pyelonephritis Anxiety and depression Atrial fibrillation CHF exacerbation Chronic anticoagulation Congestive heart failure CVA (cerebral vascular accident) Hypercholesterolemia Hypertension Lumbar vertebral fracture Nonrheumatic aortic valve stenosis Obesity (BMI 30-39.9) Pancytopenia Persistent atrial fibrillation Pneumonia Pulmonary hypertension Rash Rheumatoid arthritis Sepsis TIA (transient ischemic attack) Type 2 diabetes mellitus with hyperglycemia Uterine cancer Surgical History History of appendectomy History of colonoscopy History of left knee replacement History of right knee joint replacement History of transcatheter aortic valve replacement (TAVR) (~06/19/21) S/P ANTONIO-BSO Family History Family History Father Diabetes CAD (coronary artery disease) Mother Diabetes Hypertension Perforated ulcer Sister Diabetes Social History Social History Household Members: Significant Other Housing: House Housing Other:: lives with spouse Do you presently have visiting nurse or other home services: No Alcohol intake: never Patient Tobacco Use Status: Never used Tobacco Smoked in Last 30 Days: No e-Cigarette/Vaping Use: Never Used Second Hand Smoke Exposure: No Use of substances other than those prescribed or required for medical reasons: No Advance Directives: Yes Advance Directives on File: Yes Advance Directives Date on File: 09/03/21 service: No Current occupational status: retired 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[employer], [employer] Current occupational exposures/hazards: No Cognitive needs: Yes (cane, walker) Hearing needs: No Vision needs: Yes (glasses) Physical Exam ED Vital Signs: Vital Signs - 24 hr 10/02/22 16:53 10/02/22 18:13 Temperature 98.3 F Pulse Rate 54 61 Respiratory Rate 18 13 Blood Pressure 140/52 H 150/61 H Pulse Oximetry 96 96 Oxygen Delivery Method Nasal Cannula Nasal Cannula Oxygen Flow Rate 2.5 BMI result Body Mass Index 33.4 Const General: healthy appearing and no acute distress Orientation/consciousness: patient oriented x3 Chest Chest palpation & inspection: normal inspection of the chest Resp Effort & Inspection: normal respiratory effort, able to speak in complete sentences, not labored and no nasal flaring Auscultation: clear to auscultation bilaterally Cardio Rate: regular rate Rhythm: regular rhythm GI Inspection: Yes normal to inspection, No abdominal wall ecchymosis and No distended Palpation (GI): Soft to palpation, Tenderness to palpation present (GI) in the LLQ and Guarding due to palpation present (GI) in the LLQ and in the LUQ General: No no CVA tenderness Back/Spine/Pelvis Back: No no CVA tenderness Skin General skin exam: no rashes or lesions noted Neuro General: patient oriented x3 and no focal motor deficits Sensory Exam: No Sensory deficit (Neuro) Course Reevaluation(s) Reevaluation #1: Patient's CT scan shows a splenic subscapular lesion concerning for infarct versus laceration. I did speak with the radiologist, as the patient's INR is 4.9. It could be a subacute hematoma but not an active bleed. The patient is still quite tender left upper quadrant. We will give vitamin K, 5 mg. Patient urine under some morphine and will discuss with the hospitalist for admission Time: 21:03 Reevaluation #2: Discussed with the general surgeon, Dr. Meek who recommends admission to the medical service, controlling of the INR and he will see the patient the morning. The patient admitted to the services of Dr. Yu Time: 21:30 Medical Decision Making Medical Decision Making MDM Narrative: 82-year-old female with complicated past medical history for evaluation of severe abdominal pain after eating. Her pain is an 8/10. She is tender and guarding on exam. Therefore CT scan abdomen pelvis was ordered. EKG shows AFib with bradycardia right bundle-branch block. No change when compared to previous from 09/27/2022 Differential Diagnosis Differential Diagnoses: The differential diagnosis associated with the presentation includes Diverticulitis Nephrolithiasis STEMI UTI Pancreatitis Constipation Enteritis bowel perforation less likely Lab Data 10/02/22 18:01 10/02/22 18:01 Labs: Lab Results 10/02/22 10/02/22 10/02/22 Range/Units 18:01 18:01 18:01 WBC 6.4 (4.8-10.8) X10*3/uL RBC 3.47 L (4.20-5.50) X10*6/uL Hgb 10.5 L (12.0-16.0) g/dl Hct 32.6 L (37.0-47.0) % MCV 93.9 (80.0-98.0) fL MCH 30.3 (27.0-33.0) pg MCHC 32.2 (31.0-35.0) g/dl RDW 15.1 (11.0-16.0) % Plt Count 190 (160-400) X10*3/uL MPV 10.7 (9.4-12.3) fL Immature Gran % (Auto) 0.5 H (0.0-0.4) % Neut % (Auto) 67.1 (45-73) % Lymph % (Auto) 19.2 L (20-40) % Talbot % (Auto) 9.0 (2-11) % Eos % (Auto) 3.4 (0-4) % Baso % (Auto) 0.8 (0-2) % Lymph # (Auto) 1.2 (1.2-4.9) X10*3/uL Talbot # (Auto) 0.6 (0.1-1.2) X10*3/uL Eos # (Auto) 0.2 (0.0-0.4) X10*3/uL Baso # (Auto) 0.1 (0.0-0.2) X10*3/uL Abs Immat Gran (auto) 0.03 (0.00-0.03) X10*3/uL Absolute Neuts (auto) 4.3 (2.0-8.3) x10*3/uL Absolute Nucleated RBC 0.000 (0.0-0.012) X10*3/uL Nucleated RBC % (auto) 0.0 (0.0-0.2) /100WBC PT (11.1-13.3) SEC INR (0.9-1.1) APTT (26.0-36.4) SEC Sodium 140 (135-145) mmol/L Potassium 4.2 (3.3-5.1) mmol/L Chloride 101 (96-108) mmol/L Carbon Dioxide 31 H (22-29) mmol/L Anion Gap 12 (12-20) BUN 33 H (9-16) mg/dL Creatinine 0.81 (0.5-1.4) mg/dL Estim Creat Clear Calc 49.2 Estimated GFR > 60 Random Glucose 110 (60-115) mg/dL Calcium 9.7 (8.4-10.2) mg/dL Total Bilirubin 0.4 (0.0-1.0) mg/dL AST 18 (5-31) U/L ALT 8 (0-31) U/L Alkaline Phosphatase 102 (39-117) U/L Troponin I High Sens 16.4 (<3.5-17.0) ng/L Total Protein 7.5 (6.5-8.0) g/dL Albumin 3.2 L (3.5-5.0) g/dL Lipase 24 (8-78) U/L 10/02/22 Range/Units 18:02 WBC (4.8-10.8) X10*3/uL RBC (4.20-5.50) X10*6/uL Hgb (12.0-16.0) g/dl Hct (37.0-47.0) % MCV (80.0-98.0) fL MCH (27.0-33.0) pg MCHC (31.0-35.0) g/dl RDW (11.0-16.0) % Plt Count (160-400) X10*3/uL MPV (9.4-12.3) fL Immature Gran % (Auto) (0.0-0.4) % Neut % (Auto) (45-73) % Lymph % (Auto) (20-40) % Talbot % (Auto) (2-11) % Eos % (Auto) (0-4) % Baso % (Auto) (0-2) % Lymph # (Auto) (1.2-4.9) X10*3/uL Talbot # (Auto) (0.1-1.2) X10*3/uL Eos # (Auto) (0.0-0.4) X10*3/uL Baso # (Auto) (0.0-0.2) X10*3/uL Abs Immat Gran (auto) (0.00-0.03) X10*3/uL Absolute Neuts (auto) (2.0-8.3) x10*3/uL Absolute Nucleated RBC (0.0-0.012) X10*3/uL Nucleated RBC % (auto) (0.0-0.2) /100WBC PT 59.3 H D (11.1-13.3) SEC INR 4.9 H D (0.9-1.1) APTT 50.4 H D (26.0-36.4) SEC Sodium (135-145) mmol/L Potassium (3.3-5.1) mmol/L Chloride (96-108) mmol/L Carbon Dioxide (22-29) mmol/L Anion Gap (12-20) BUN (9-16) mg/dL Creatinine (0.5-1.4) mg/dL Estim Creat Clear Calc Estimated GFR Random Glucose (60-115) mg/dL Calcium (8.4-10.2) mg/dL Total Bilirubin (0.0-1.0) mg/dL AST (5-31) U/L ALT (0-31) U/L Alkaline Phosphatase (39-117) U/L Troponin I High Sens (<3.5-17.0) ng/L Total Protein (6.5-8.0) g/dL Albumin (3.5-5.0) g/dL Lipase (8-78) U/L Medications Administered Discontinued Medications Generic Name Dose Route Start Last Admin Trade Name Freq PRN Reason Stop Dose Admin Iohexol 100 ml 10/02/22 19:14 10/02/22 19:15 Iohexol 350 Mg/Ml 100 Ml Infus..Btl IV 10/02/22 19:15 85 ml ONCE ONE Administration Morphine Sulfate 4 mg 10/02/22 18:21 10/02/22 18:37 Morphine Sulfate 4 Mg/Ml Cartridge IVPUSH 10/02/22 18:22 4 mg ONCE ONE Administration Protocol Morphine Sulfate 4 mg 10/02/22 21:02 10/02/22 21:23 Morphine Sulfate 4 Mg/Ml Cartridge IVPUSH 10/02/22 21:03 4 mg ONCE ONE Administration Protocol Ondansetron HCl 4 mg 10/02/22 18:21 10/02/22 18:37 Ondansetron Hcl 4 Mg/2 Ml Vial IVPUSH 10/02/22 18:22 4 mg ONCE ONE Administration Phytonadione 5 mg 10/02/22 20:50 10/02/22 21:23 Phytonadione (Vit K1) Oral 10 Mg/Ml Ampul PO 10/02/22 20:51 5 mg ONCE ONE Administration Discharge Plan Discharge Clinical Impression: Abdominal pain, Lesion of spleen Patient Disposition: Admitted As Inpatient Prescriptions: No Action (DME) Hospital bed See Rx Instructions .Route .MEDSUPPLY Qty: 1 0RF Rx Instructions: As directed furosemide 40 mg tablet 40 mg PO DAILY Qty: 90 3RF metoprolol tartrate 25 mg tablet 12.5 mg PO BID 90 Days Qty: 90 2RF sertraline [Zoloft] 25 mg tablet 25 mg PO DAILY Qty: 30 2RF (DME) [facility] See Rx Instructions .Route .MEDSUPPLY Qty: 1 0RF Rx Instructions: As directed folic acid 1 mg tablet 1 mg PO DAILY Qty: 28 0RF cholecalciferol (vitamin D3) 50 mcg (2,000 unit) capsule 50 mcg PO DAILY Qty: 28 0RF warfarin 1 mg tablet 3 mg PO WE@1800 warfarin 1 mg tablet 2 mg PO SUMOTUTHFRSA@1800 Protocol: Dose Management Condition: Tuesday (Week One) Dose/Route: 2 mg Instruction: 2 x 1 mg tablets Condition: Tuesday Dose/Route: 2 mg Instruction: 2 x 1 mg tablets Condition: Tuesday Dose/Route: 2 mg Instruction: 2 x 1 mg tablets Condition: Tuesday Dose/Route: 3 mg Instruction: 3 x 1 mg tablets Condition: Dose/Route: 2 mg Instruction: 2 x 1 mg tablets Condition: Tuesday Dose/Route: 2 mg Instruction: 2 x 1 mg tablets Condition: Tuesday Dose/Route: 2 mg Instruction: 2 x 1 mg tablets Condition: Tuesday (Week Two) Dose/Route: 2 mg Instruction: 2 x 1 mg tablets Condition: Tuesday Dose/Route: 2 mg Instruction: 2 x 1 mg tablets Condition: Tuesday Dose/Route: 2 mg Instruction: 2 x 1 mg tablets Condition: Tuesday Dose/Route: 3 mg Instruction: 3 x 1 mg tablets Condition: Dose/Route: 2 mg Instruction: 2 x 1 mg tablets Condition: Tuesday Dose/Route: 2 mg Instruction: 2 x 1 mg tablets Condition: Tuesday Dose/Route: 2 mg Instruction: 2 x 1 mg tablets Protocol Text: Adjustment Start Date: Tuesday09/15/22 INR Value: 2.2 INR Date: 09/15/22 Recheck Date: 09/29/22 Additional Instructions: EAT A MIX OF FRUITS AND VEGETABLES Rx Instructions: or as directed simvastatin 20 mg tablet 20 mg PO BEDTIME amlodipine 5 mg Tablet 5 mg PO DAILY Qty: 30 0RF Protocol: Hold for SBP< HOLD for SBP < : 90 cefuroxime axetil 250 mg tablet 250 mg PO BID Qty: 6 0RF (DME) blood-glucose meter [OneTouch Ultra2 Meter] Kit See Rx Instructions .ROUTE .MEDSUPPLY Qty: 1 0RF Rx Instructions: As directed check the blood sugar once a day (DME) blood sugar diagnostic Strip See Rx Instructions .ROUTE .MEDSUPPLY Qty: 250 3RF Rx Instructions: Twice a day acetaminophen 500 mg capsule 1,000 mg PO Q6H PRN (Reason: Pain)
[2022-10-02 18:13] VITALS: BP 150/61; PULSE 61; RESP 13; O2SAT 96
[2022-10-02 18:13] LABS: MANUAL DIFF FLAG NO
[2022-10-02 18:27] LABS: Alanine Aminotransferase 8 U/L (0-31); Albumin Level 3.2 g/dL (3.5-5.0); Alkaline Phosphatase 102 U/L (39-117); Anion Gap 12 (12-20); Aspartate Amino Transferase 18 U/L (5-31); Bilirubin Total 0.4 mg/dL (0.0-1.0); Blood Urea Nitrogen 33 mg/dL (9-16); Calcium 9.7 mg/dL (8.4-10.2); Carbon Dioxide 31 mmol/L (22-29); Chloride 101 mmol/L (96-108); Creatinine Clr Calc Pharmacy 49.2; Estimated Glomerular Filt Rate > 60; Glucose Random 110 mg/dL (60-115); Lipase 24 U/L (8-78); Potassium 4.2 mmol/L (3.3-5.1); Sodium 140 mmol/L (135-145); Total Protein 7.5 g/dL (6.5-8.0)
[2022-10-02 18:34] LABS: Troponin-I High Sensitivity 16.4 ng/L (<3.5-17.0)
[2022-10-02 18:37] LABS: INTERNATIONAL NORM RATIO 4.9 (0.9-1.1); Prothrombin Time 59.3 SEC (11.1-13.3)
[2022-10-02] MEDS: ondansetron HCL 4 MG/2 ML VIAL IVPUSH (18:37)
[2022-10-02] MEDS: Morphine Sulfate 4 MG/ML CARTRIDGE IVPUSH ×2 (18:37→21:23)
[2022-10-02 18:40] LABS: Partial Thromboplastin Time 50.4 SEC (26.0-36.4)
[2022-10-02 18:41] LABS: Basophils Absolute Auto 0.1 X10*3/uL (0.0-0.2); Basophils Percent Auto 0.8 % (0-2); Eosinophils Absolute Auto 0.2 X10*3/uL (0.0-0.4); Eosinophils Percent Auto 3.4 % (0-4); Hematocrit 32.6 % (37.0-47.0); Hemoglobin 10.5 g/dl (12.0-16.0); Imm Gran Abs Auto 0.03 X10*3/uL (0.00-0.03); Imm Gran Pct Auto 0.5 % (0.0-0.4); Lymphocytes Absolute Auto 1.2 X10*3/uL (1.2-4.9); Lymphocytes Percent Auto 19.2 % (20-40); Mean Corpuscular HGB Conc 32.2 g/dl (31.0-35.0); Mean Corpuscular Hemoglobin 30.3 pg (27.0-33.0); Mean Corpuscular Volume 93.9 fL (80.0-98.0); Mean Platelet Volume 10.7 fL (9.4-12.3); Monocytes Absolute Auto 0.6 X10*3/uL (0.1-1.2); Neutrophils Absolute Auto 4.3 x10*3/uL (2.0-8.3); Neutrophils Percent Auto 67.1 % (45-73); Platelet Count 190 X10*3/uL (160-400); Red Blood Count 3.47 X10*6/uL (4.20-5.50); Red Cell Distribution Width 15.1 % (11.0-16.0); White Blood Count 6.4 X10*3/uL (4.8-10.8)
[2022-10-02] MEDS: iohexoL 350 MG/ML 100 ML INFUS..BTL IV (19:15)
[2022-10-02] MEDS: Phytonadione (Vit K1) Oral 10 MG/ML AMPUL 5 MG PO (21:23)
--- NOTE | 2022-10-02 21:49 | P.HPHOSP_ITS ---
History of Present Illness Date of Service: 10/02/22 Attending physician on admission: Rik Yu Chief Complaint: abd pain 82-year-old female with history of heart failure with preserved ejection fraction, chronic hypoxic respiratory failure on 2 L supplemental O2 as needed, persistent atrial fibrillation anticoagulated with Coumadin, anxiety depression, history of CVA, hyperlipidemia, rheumatoid arthritis, pulmonary hypertension, [id number]-aegkwllyc type 2 diabetes, and history of uterine cancer s/p total hysterectomy presents to the ED earlier today from [facility] where she resides for evaluation of sudden-onset left upper quadrant pain that occurred about 20 minutes after eating dinner comprised of kelley and potato chips. She describes the pain as severe and radiated to left arm. She also had headache at that time. Denies any associated fevers, chills, nausea, vomiting, diarrhea, constipation, urinary symptoms, shortness of breath, palpitations, chest pain. On arrival to the ED, vital stable, no acute hypoxia or hypotension. There is no leukocytosis. There is stable normocytic anemia with H/H 10.5/32.6%. PTT 59.3, INR 4.9. Troponin 16.4. Chest x-ray showed mild pulmonary venous congestion and persistent right infrahilar asymmetric soft tissue fullness. CT the abdomen/pelvis showed interval development of subcapsular 3.8 x 2.6 cm hypodense lesion along the anterior aspect of the mid part of the spleen possibly representing splenic infarction versus laceration, No extravasation, among other findings. ED discussed case with General surgery recommending admission to manage INR and for pain management. In the ED, she received a total of 8 mg IV morphine, 5 mg vitamin K, and 4 mg ondansetron. She denies any trauma. Review of Systems Review of Systems: General: No fevers, malaise, unintentional weight loss Cardiovascular: No chest pain, palpitations, or leg edema Respiratory: No shortness of breath, wheezing, cough GI: +LUQ pain. No nausea, vomiting, diarrhea, constipation, melena, hematochezia : No dysuria, hematuria, increased urinary frequency, decreased urinary output MSK: No myalgia, back pain Neuro: No weakness, paresthesias. +headache Skin: No rashes or lesions [facility] Medical History (HFpEF) heart failure with preserved ejection fraction Acute pyelonephritis Anxiety and depression Atrial fibrillation CHF exacerbation Chronic anticoagulation Chronic hypoxemic respiratory failure Congestive heart failure CVA (cerebral vascular accident) Hypercholesterolemia Hypertension Lumbar vertebral fracture Nonrheumatic aortic valve stenosis Obesity (BMI 30-39.9) Pancytopenia Persistent atrial fibrillation Pneumonia Pulmonary hypertension Rash Rheumatoid arthritis Sepsis TIA (transient ischemic attack) Type 2 diabetes mellitus with hyperglycemia Uterine cancer Family History Father Diabetes CAD (coronary artery disease) Mother Diabetes Hypertension Perforated ulcer Sister Diabetes Surgical History History of appendectomy History of colonoscopy History of left knee replacement History of right knee joint replacement History of transcatheter aortic valve replacement (TAVR) (~06/19/21) S/P ANTONIO-BSO Social History Household Members: Significant Other Housing: House Housing Other:: lives with spouse Do you presently have visiting nurse or other home services: No Alcohol intake: never Patient Tobacco Use Status: Never used Tobacco Smoked in Last 30 Days: No e-Cigarette/Vaping Use: Never Used Second Hand Smoke Exposure: No Use of substances other than those prescribed or required for medical reasons: No Advance Directives: Yes Advance Directives on File: Yes Advance Directives Date on File: 09/03/21 service: No Current occupational status: retired 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[employer], [employer] Current occupational exposures/hazards: No Cognitive needs: Yes (cane, walker) Hearing needs: No Vision needs: Yes (glasses) Meds Allergies Allergy/AdvReac Type Severity Reaction Status Date / Time shellfish derived Allergy Unknown itchy Verified 09/25/22 03:06 procaine [From Novocain] AdvReac Unknown makes Verified 09/25/22 03:06 patient itchy,puffy Active Medications: Current Medications Sodium Chloride (0.9 % Sodium Chloride Flush 3 Ml Syringe) [facility] Medications Medication Instructions Recorded Confirmed Last Taken Type acetaminophen 500 mg capsule 1,000 mg PO Q6H PRN Pain 09/15/22 09/25/22 09/23/22 History simvastatin 20 mg tablet 20 mg PO BEDTIME 09/25/22 09/25/22 09/23/22 History warfarin 1 mg tablet 2 mg PO ALCIRA@1800 09/25/22 09/25/22 09/23/22 History warfarin 1 mg tablet 3 mg PO WE@1800 09/25/22 09/25/22 09/22/22 History Physical Exam Vital Signs and Narrative: Vital Signs: Last Vital Signs Temp 98.3 F 10/02/22 16:53 Pulse 61 10/02/22 18:13 Resp 13 10/02/22 18:13 BP 150/61 H 10/02/22 18:13 Pulse Ox 96 10/02/22 18:13 O2 Del Method Nasal Cannula 10/02/22 18:13 O2 Flow Rate 2.5 10/02/22 18:13 Oxygen Flow Rate 2 10/02/22 16:53 BMI result Body Mass Index 33.4 Constitutional - Awake and Alert, No apparent distress Eyes - PERRLA, EOMI Cardiovascular - S1S2, RRR, No edema Respiratory - Normal lung expansion, Normal respiratory effort, No respiratory distress, CTA bilaterally Gastrointestinal - severe left sided abd pain with voluntary guarding. ND; +BS; No rebound Extremities - no calf tenderness bilaterally, no swelling Skin - Warm/Dry Neurological - Alert & oriented x3 Psychological - Appropriate affect Results Labs 10/02/22 18:01 10/02/22 18:01 Labs: Laboratory Results - last 24 hr 10/02/22 10/02/22 10/02/22 18:01 18:01 18:02 MCV 93.9 MCH 30.3 MCHC 32.2 RDW 15.1 Plt Count 190 MPV 10.7 Immature Gran % (Auto) 0.5 H Neut % (Auto) 67.1 Lymph % (Auto) 19.2 L Hamilton % (Auto) 9.0 Eos % (Auto) 3.4 Baso % (Auto) 0.8 Lymph # (Auto) 1.2 Hamilton # (Auto) 0.6 Eos # (Auto) 0.2 Baso # (Auto) 0.1 Abs Immat Gran (auto) 0.03 Absolute Neuts (auto) 4.3 Absolute Nucleated RBC 0.000 Nucleated RBC % (auto) 0.0 PT 59.3 H D INR 4.9 H D APTT 50.4 H D Anion Gap 12 Estim Creat Clear Calc 49.2 Estimated GFR > 60 Random Glucose 110 Calcium 9.7 Total Bilirubin 0.4 AST 18 ALT 8 Alkaline Phosphatase 102 Total Protein 7.5 Albumin 3.2 L Lipase 24 Imaging Radiologist's Impressions: Impressions Chest X-Ray 10/02/22 17:40 IMPRESSION: 1. Mild pulmonary venous congestion. 2. Persistent right infrahilar asymmetric soft tissue fullness, indeterminate etiology. Abdomen/Pelvis CT 10/02/22 19:18 IMPRESSION: 1. Bilateral nonobstructing radiopaque calculi, better visualized on prior noncontrast study done on 01/13/2022. Previously documented right distal ureteric calculus is not reproduced in the current study. 2. Interval development of subcapsular 3.8 x 2.6 cm hypodense lesion along the anterior aspect of the mid part of the spleen, may represent splenic infarction versus laceration in this patient has any history of recent trauma. A second smaller subcapsular hypodense lesion appears stable since 01/29/2021. 3. The liver shows subtle surface nodularity, may represent underlying chronic diffuse liver disease. Please correlate clinically. 4. Bibasilar airspace disease at both lung bases likely represent hypoventilatory changes. 5. Moderate to severe cardiomegaly. 6. Solitary bilateral external iliac (right greater than left) lymphadenopathy with maximum short axis dimension of 1.1 cm. 7. Persistent stable severe compression fracture at mid to anterior part of L2 vertebral body with moderate to severe diffuse osteopenia and superimposed multilevel moderate degenerative spondylosis, unchanged since 01/13/2022. 8. Diffuse calcific atherosclerotic disease of the aorta and its branches. Fleischner guidelines were followed. Assessment and Plan (1) Abdominal pain: Status: Acute (2) Lesion of spleen: Status: Acute Plan 82-year-old female with history of heart failure with preserved ejection fracti on, chronic hypoxic respiratory failure on 2 L supplemental O2 as needed, persistent atrial fibrillation anticoagulated with Coumadin, anxiety depression, history of CVA, hyperlipidemia, rheumatoid arthritis, pulmonary hypertension, [id number]-[id number] type 2 diabetes, and history of uterine cancer s/p total hysterectomy to be observed for enlarging splenic lesion with elevated INR. #Splenic hematoma -CT abd/pelvis shows interval development of subcapsular 3.8 x 2.6 cm hyperdense lesion along the anterior aspect of the mid part of the spleen possibly representing infarction versus laceration. No extrication. Pt denies trauma -INR supratherapeutic at 4.9, hold Coumadin -per General surgery, admit for INR normalization and pain management -morphine p.r.n. for severe pain -general surgery consult -follow INR, CBC # supratherapeutic INR -INR 4.9, reports compliance with Coumadin (lives at [facility]) -given 5 mg vitamin K in the ED -follow INR, CBC # persistent atrial fibrillation-rate controlled -hold Coumadin as above -continue metoprolol # heart failure preserved ejection fraction -no acute exacerbation -continue oral diuretics # hypertension -blood pressure reasonably controlled -continue home antihypertensives # HLD -continue statin DVT prophylaxis- SCPs DNR/DNI per MOLST form Time Spent With Patient Time: Total time managing care of this patient today ____ minutes. Quality Stroke Does the patient have a stroke diagnosis?: No VTE Prior VTE?: No VTE Risk Level:: Medical - moderate - high VTE Device Contraindication: N/A - Device Ordered VTE Drug Contraindication: Treatment Not Indicated
--- NOTE | 2022-10-02 22:50 | PC.NURSE ---
Report given to RN Shakira in overflow, pt will be moved to bed 7
[2022-10-03] MEDS: 0.9 % Sodium Chloride Flush 3 ML SYRINGE IVFLUSH ×4 (00:53→20:20)
[2022-10-03] MEDS: Morphine Sulfate 2 MG/ML CARTRIDGE IVPUSH ×4 (05:18→23:23)
[2022-10-03 05:28] VITALS: BP 141/68; PULSE 71; RESP 18; TEMP 36.6; O2SAT 94
[2022-10-03 05:37] LABS: MANUAL DIFF FLAG NO
[2022-10-03 05:40] LABS: Basophils Absolute Auto 0.1 X10*3/uL (0.0-0.2); Basophils Percent Auto 0.9 % (0-2); Eosinophils Absolute Auto 0.2 X10*3/uL (0.0-0.4); Eosinophils Percent Auto 3.5 % (0-4); Hematocrit 34.9 % (37.0-47.0); Hemoglobin 10.7 g/dl (12.0-16.0); Imm Gran Abs Auto 0.03 X10*3/uL (0.00-0.03); Imm Gran Pct Auto 0.5 % (0.0-0.4); Lymphocytes Percent Auto 15.4 % (20-40); Mean Corpuscular HGB Conc 30.7 g/dl (31.0-35.0); Mean Corpuscular Hemoglobin 28.8 pg (27.0-33.0); Mean Corpuscular Volume 93.8 fL (80.0-98.0); Mean Platelet Volume 10.7 fL (9.4-12.3); Monocytes Absolute Auto 0.7 X10*3/uL (0.1-1.2); Monocytes Percent Auto 10.8 % (2-11); Neutrophils Absolute Auto 4.5 x10*3/uL (2.0-8.3); Neutrophils Percent Auto 68.9 % (45-73); Platelet Count 175 X10*3/uL (160-400); Red Blood Count 3.72 X10*6/uL (4.20-5.50); White Blood Count 6.6 X10*3/uL (4.8-10.8)
[2022-10-03 05:47] LABS: INTERNATIONAL NORM RATIO 3.3 (0.9-1.1); Prothrombin Time 40.7 SEC (11.1-13.3)
[2022-10-03 06:04] LABS: Anion Gap 14 (12-20); Blood Urea Nitrogen 30 mg/dL (9-16); Carbon Dioxide 28 mmol/L (22-29); Chloride 101 mmol/L (96-108); Creatinine Clr Calc Pharmacy 52.4; Estimated Glomerular Filt Rate > 60; Glucose Random 108 mg/dL (60-115); Potassium 4.5 mmol/L (3.3-5.1); Sodium 138 mmol/L (135-145)
--- NOTE | 2022-10-03 06:20 | PC.NURSE ---
PT ARRIVED AFTER 12 MN VIA STRETCHER. ALERT X3 SKIN INTACT some redness to buttocks, reposition for comfort. medicated with morphine 2 mg for pain pt fell to sleep not able to obtain urine spec.
--- NOTE | 2022-10-03 07:05 | PM.CNGS ---
History of Present Illness Consult details Consult date: 10/03/22 Reason for consult: abdominal pain Narrative: The patient is an 82-year-old woman who has a AVR placed via transcatheter replacement and is anticoagulated presenting with vague abdominal pain found to have a splenic infarct. The patient resides in a correction and states that her abdominal pain and left arm pain started 2 weeks ago after placement of a stent in her neck. While she insists the procedure was done here at [facility], I am unable to locate any records to corroborate her story. She notes that the left arm pain and left upper quadrant/left abdominal pain continued to worsen and she was brought to the emergency room last night. She continues to note pain, but is also interested in eating breakfast and placed in order while I was at bedside examining her. She notes that her difficulty breathing is at its baseline but that the abdominal pain is sometimes significant taking her breath away. She asked me to contact her daughter Cecy at [phone] to explain and update Cecy. By telephone, the patient's daughter notes that the patient has been going to both [facility] for interventional vascular procedures and [facility] for infusions. She notes that the last vascular procedure at [facility] was more than 2 weeks ago and possibly 2 months ago. Review of Systems Review of Systems: Yes all other systems are reviewed and are negative Constitutional: Constitutional: Reports as per [facility] Past Medical History Medical History (HFpEF) heart failure with preserved ejection fraction Acute pyelonephritis Anxiety and depression Atrial fibrillation CHF exacerbation Chronic anticoagulation Chronic hypoxemic respiratory failure Congestive heart failure CVA (cerebral vascular accident) Hypercholesterolemia Hypertension Lumbar vertebral fracture Nonrheumatic aortic valve stenosis Obesity (BMI 30-39.9) Pancytopenia Persistent atrial fibrillation Pneumonia Pulmonary hypertension Rash Rheumatoid arthritis Sepsis TIA (transient ischemic attack) Type 2 diabetes mellitus with hyperglycemia Uterine cancer Family History Family History Father Diabetes CAD (coronary artery disease) Mother Diabetes Hypertension Perforated ulcer Sister Diabetes Surgical History Surgical History History of appendectomy History of colonoscopy History of left knee replacement History of right knee joint replacement History of transcatheter aortic valve replacement (TAVR) (~06/19/21) S/P ANTONIOLEIDY Social History Social History Household Members: Significant Other Housing: House Housing Other:: lives with spouse Do you presently have visiting nurse or other home services: No Alcohol intake: never Patient Tobacco Use Status: Never used Tobacco Smoked in Last 30 Days: No e-Cigarette/Vaping Use: Never Used Second Hand Smoke Exposure: No Use of substances other than those prescribed or required for medical reasons: No Advance Directives: Yes Advance Directives on File: Yes Advance Directives Date on File: 09/03/21 service: No Current occupational status: retired 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[employer], 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 [employer] Current occupational exposures/hazards: No Cognitive needs: Yes (cane, walker) Hearing needs: No Vision needs: Yes (glasses) Meds Allergies Allergy/AdvReac Type Severity Reaction Status Date / Time shellfish derived Allergy Unknown itchy Verified 09/25/22 03:06 procaine [From Novocain] AdvReac Unknown makes Verified 09/25/22 03:06 patient itchy,puffy Active Medications: Current Medications Morphine Sulfate (Morphine Sulfate 2 Mg/Ml Cartridge) 2 mg IVPUSH Q4H PRN; Protocol PRN Reason: Pain, Severe (Pain Scale 7-10) Last Admin: 10/03/22 05:18 Dose: 2 mg Pharmacy Consult (Consult Rx Perform Med Rec) 1 each MISCELLANE ONCE PRN PRN Reason: Consult order Sodium Chloride (0.9 % Sodium Chloride Flush 3 Ml Syringe) 3 ml IVFLUSH [facility] Last Admin: 10/03/22 00:53 Dose: 3 ml Home Medications Medication Instructions Recorded Confirmed Last Taken Type acetaminophen 500 mg capsule 1,000 mg PO Q6H PRN Pain 09/15/22 10/03/22 09/23/22 History simvastatin 20 mg tablet 20 mg PO BEDTIME 09/25/22 10/03/22 09/23/22 History warfarin 1 mg tablet 2 mg PO SUMOTUTHFRSA@1800 09/25/22 10/03/22 09/23/22 History warfarin 1 mg tablet 3 mg PO WE@1800 09/25/22 10/03/22 09/22/22 History Physical Exam Vital Signs: Vital Signs: Last Vital Signs Temp 97.9 F 10/03/22 05:28 Pulse 71 10/03/22 05:28 Resp 18 10/03/22 05:28 BP 141/68 H 10/03/22 05:28 Pulse Ox 94 10/03/22 05:28 O2 Del Method Nasal Cannula 10/03/22 05:28 O2 Flow Rate 2 10/03/22 05:28 Oxygen Flow Rate 2 10/02/22 16:53 BMI result Body Mass Index 33.4 The patient is non-toxic & in good spirits NC/AT, PERRLA, EOMI Mood, affect & judgment all appear appropriate Sclera anicteric conjunctiva pink and moist Oropharynx is clear with no aphthous ulcers, Mallampati class 4, mucous membranes moist Neck is supple with no masses, adenopathy or bruits Heart is regular, normal S1-S2 no rubs or murmurs Lungs are clear and equal anteriorly with no audible wheezing, rubs or dullness to percussion Abdomen is obese with LUQ/left-sided tenderness and well-healed scars with no demonstrable hernias. No HSM is noted but the patient does have mild peritoneal irritation to percussion in her left upper quadrant. Rectal exam is deferred Skin has decreased turgor as to be expected with her age and is free of rashes Extremities free of cyanosis clubbing edema Results Labs 10/03/22 05:33 10/03/22 05:33 Labs: Abnormal lab results 10/02/22 10/02/22 10/02/22 Range/Units 18:01 18:01 18:02 RBC 3.47 L (4.20-5.50) X10*6/uL Hgb 10.5 L (12.0-16.0) g/dl Hct 32.6 L (37.0-47.0) % MCHC (31.0-35.0) g/dl Immature Gran % (Auto) 0.5 H (0.0-0.4) % Lymph % (Auto) 19.2 L (20-40) % Lymph # (Auto) (1.2-4.9) X10*3/uL PT 59.3 H D (11.1-13.3) SEC INR 4.9 H D (0.9-1.1) APTT 50.4 H D (26.0-36.4) SEC Carbon Dioxide 31 H (22-29) mmol/L BUN 33 H (9-16) mg/dL Albumin 3.2 L (3.5-5.0) g/dL 10/03/22 10/03/22 10/03/22 Range/Units 05:33 05:33 05:33 RBC 3.72 L (4.20-5.50) X10*6/uL Hgb 10.7 L (12.0-16.0) g/dl Hct 34.9 L (37.0-47.0) % MCHC 30.7 L (31.0-35.0) g/dl Immature Gran % (Auto) 0.5 H (0.0-0.4) % Lymph % (Auto) 15.4 L (20-40) % Lymph # (Auto) 1.0 L (1.2-4.9) X10*3/uL PT 40.7 H D (11.1-13.3) SEC INR 3.3 H (0.9-1.1) APTT (26.0-36.4) SEC Carbon Dioxide (22-29) mmol/L BUN 30 H (9-16) mg/dL Albumin (3.5-5.0) g/dL Short CBC 10/02/22 10/03/22 Range/Units 18:01 05:33 WBC 6.4 6.6 (4.8-10.8) X10*3/uL Hgb 10.5 L 10.7 L (12.0-16.0) g/dl Hct 32.6 L 34.9 L (37.0-47.0) % Plt Count 190 175 (160-400) X10*3/uL BMP 10/02/22 10/03/22 18:01 05:33 Sodium 140 138 Potassium 4.2 4.5 Chloride 101 101 Carbon Dioxide 31 H 28 BUN 33 H 30 H Creatinine 0.81 0.76 Calcium 9.7 10.0 Liver Function 10/02/22 Range/Units 18:01 Total Bilirubin 0.4 (0.0-1.0) mg/dL AST 18 (5-31) U/L ALT 8 (0-31) U/L Alkaline Phosphatase 102 (39-117) U/L Albumin 3.2 L (3.5-5.0) g/dL All other labs normal. Imaging Abdomen CT scan report/results: report reviewed and image reviewed CT scan - pelvis: report reviewed and image reviewed Assessment and Plan (1) Lesion of spleen: Status: Acute (2) Generalized weakness: Status: Acute (3) Current use of anticoagulant therapy: Status: Acute Plan Would address underlying coagulopathy and consult Cardiology for echo Splenic infarct are usually secondary to an embolic source. If possible, interventional radiology/interventional vascular procedure records from [facility] may help. Patient's daughter is unaware of the patient reporting left upper quadrant or left arm pain following the last interventional procedure but notes that she lives in [place] and only communicates with her mom by phone. Consider vascular surgery input and cardiology input Splenectomy is usually reserved for spontaneous rupture with hemoperitoneum which is unlikely. It is reasonable to continue some sort of anticoagulant that is reversible at this time. Antibiotics or typically endorsed to theoretically decrease the risk of splenic abscess. Will continue to follow with you. Time Spent With Patient Time: Total time managing care of this patient today ____ minutes. Procedures Date of Service Date of Service: 10/03/22
[2022-10-03 07:24] LABS: Appearance Urine Clear; Color Urine Yellow; Glucose Urine UA Negative (Negative); Leukocyte Esterase Urine Negative (Negative); Nitrite Urine Negative (Negative); Specific Gravity - Urine >= 1.030 (1.005-1.025); Urine Blood Negative (Negative); Urine Ketones Negative (Negative); Urine Protein Trace mg/dL (Neg-Trace)
[2022-10-03 07:27] LABS: Bacteria Urine None Seen (None Seen); Hyaline Casts Urine 0-2 /LPF (0-2); RBC Urine 0-2 /HPF (0-2); WBC Urine 0-5 /HPF (0-5)
--- NOTE | 2022-10-03 07:47 | PC.NURSE ---
Dr. breen at bedside pt is aware of plan of care.
[2022-10-03 07:55] LABS: Glucose, Whole Blood 102 mg/dL (60-115)
--- NOTE | 2022-10-03 08:55 | PHA.MEDREC ---
Pharmacy Consult ? Medication Reconciliation Pharmacy has completed the medication reconciliation. Spoke to patient said she hasnt taken anything in weeks
--- NOTE | 2022-10-03 10:30 | PC.NURSE ---
PT A/O NO SOB/SLOAN NOTED . PLEASANT, SPEAKS IN FULL SENTENCES. PT C/O 08/23 ABD PAIN. PT MED WITH MORPHINE 2MG IVP X 1.
--- NOTE | 2022-10-03 13:27 | HO.PM.IMPN ---
Subjective Subjective Date of Service: 10/03/22 Interval History: patient awake alert, finished all her breakfast denies nausea, vomiting, complaining of left upper quadrant abdominal pain but feels better after IV morphine, denies diarrhea, no lightheadedness, no dizziness, no chest pain, no shortness of breath.. Review of Systems All other system reviewed and negative. Physical Exam Vital Signs: Vital Signs: Last Vital Signs Temp 97.9 F 10/03/22 05:28 Pulse 71 10/03/22 05:28 Resp 18 10/03/22 05:28 BP 141/68 H 10/03/22 05:28 Pulse Ox 94 10/03/22 05:28 O2 Del Method Nasal Cannula 10/03/22 05:28 O2 Flow Rate 2 10/03/22 05:28 Oxygen Flow Rate 2 10/02/22 16:53 BMI result Body Mass Index 33.4 Const: Other: General awake alert, resting comfortably in no acute distress. Neck supple no JVD. CVS regular rate rhythm, Respiratory lungs clear to auscultation, no respiratory distress, no wheeze, no rhonchi. Gastrointestinal abdomen soft, obese, left upper quadrant tenderness to palpation, bowel sounds audible, no rigidity. Extremities no edema. Neuro nonfocal ,moving all 4 extremity speech clear. Skin no rash psych appropriate affect Objective Data Active Medications Morphine Sulfate (Morphine Sulfate 2 Mg/Ml Cartridge) 2 mg IVPUSH Q4H PRN; Protocol PRN Reason: Pain, Severe (Pain Scale 7-10) Last Admin: 10/03/22 10:00 Dose: 2 mg Documented By: HARVEY Pharmacy Consult (Consult Rx Perform Med Rec) 1 each MISCELLANE ONCE PRN PRN Reason: Consult order Sodium Chloride (0.9 % Sodium Chloride Flush 3 Ml Syringe) 3 ml IVFLUSH QSHIFT [facility] Last Admin: 10/03/22 09:48 Dose: 3 ml Documented By: HARVEY Labs 10/03/22 05:33 10/03/22 05:33 Labs: Laboratory Results - last 24 hr 10/02/22 10/02/22 10/02/22 18:01 18:01 18:02 MCV 93.9 MCH 30.3 MCHC 32.2 RDW 15.1 Plt Count 190 MPV 10.7 Immature Gran % (Auto) 0.5 H Neut % (Auto) 67.1 Lymph % (Auto) 19.2 L Worth % (Auto) 9.0 Eos % (Auto) 3.4 Baso % (Auto) 0.8 Lymph # (Auto) 1.2 Worth # (Auto) 0.6 Eos # (Auto) 0.2 Baso # (Auto) 0.1 Abs Immat Gran (auto) 0.03 Absolute Neuts (auto) 4.3 Absolute Nucleated RBC 0.000 Nucleated RBC % (auto) 0.0 PT 59.3 H D INR 4.9 H D APTT 50.4 H D Anion Gap 12 Estim Creat Clear Calc 49.2 Estimated GFR > 60 POC Glucose Random Glucose 110 Calcium 9.7 Total Bilirubin 0.4 AST 18 ALT 8 Alkaline Phosphatase 102 Total Protein 7.5 Albumin 3.2 L Lipase 24 Urine Color Urine Appearance Urine pH Ur Specific [place]born Urine Protein Urine Glucose (UA) Urine Ketones Urine Blood Urine Nitrite Ur Leukocyte Esterase Urine RBC Urine WBC Ur Squamous Epith Cells Urine Bacteria Hyaline Casts 10/03/22 10/03/22 10/03/22 05:33 05:33 05:33 MCV 93.8 MCH 28.8 MCHC 30.7 L RDW 15.0 Plt Count 175 MPV 10.7 Immature Gran % (Auto) 0.5 H Neut % (Auto) 68.9 Lymph % (Auto) 15.4 L Worth % (Auto) 10.8 Eos % (Auto) 3.5 Baso % (Auto) 0.9 Lymph # (Auto) 1.0 L Worth # (Auto) 0.7 Eos # (Auto) 0.2 Baso # (Auto) 0.1 Abs Immat Gran (auto) 0.03 Absolute Neuts (auto) 4.5 Absolute Nucleated RBC 0.000 Nucleated RBC % (auto) 0.0 PT 40.7 H D INR 3.3 H APTT Anion Gap 14 Estim Creat Clear Calc 52.4 Estimated GFR > 60 POC Glucose Random Glucose 108 Calcium 10.0 Total Bilirubin AST ALT Alkaline Phosphatase Total Protein Albumin Lipase Urine Color Urine Appearance Urine pH Ur Specific [place]born Urine Protein Urine Glucose (UA) Urine Ketones Urine Blood Urine Nitrite Ur Leukocyte Esterase Urine RBC Urine WBC Ur Squamous Epith Cells Urine Bacteria Hyaline Casts 10/03/22 10/03/22 06:55 07:51 MCV MCH MCHC RDW Plt Count MPV Immature Gran % (Auto) Neut % (Auto) Lymph % (Auto) Worth % (Auto) Eos % (Auto) Baso % (Auto) Lymph # (Auto) Worth # (Auto) Eos # (Auto) Baso # (Auto) Abs Immat Gran (auto) Absolute Neuts (auto) Absolute Nucleated RBC Nucleated RBC % (auto) PT INR APTT Anion Gap Estim Creat Clear Calc Estimated GFR POC Glucose 102 Random Glucose Calcium Total Bilirubin AST ALT Alkaline Phosphatase Total Protein Albumin Lipase Urine Color Yellow Urine Appearance Clear Urine pH 5.0 Ur Specific Sanborn >= 1.030 H Urine Protein Trace Urine Glucose (UA) Negative Urine Ketones Negative Urine Blood Negative Urine Nitrite Negative Ur Leukocyte Esterase Negative Urine RBC 0-2 Urine WBC 0-5 Ur Squamous Epith Cells 6-10 Urine Bacteria None Seen Hyaline Casts 0-2 Assessment and Plan (1) Abdominal pain: Status: Acute (2) Lesion of spleen: Status: Acute Plan 82-year-old female with history of heart failure with preserved ejection fraction, chronic hypoxic respiratory failure on 2 L supplemental O2 as needed, persistent atrial fibrillation anticoagulated with Coumadin, anxiety depression, history of CVA, hyperlipidemia, rheumatoid arthritis, pulmonary hypertension, [id number] type 2 diabetes, and history of uterine cancer s/p total hysterectomy to be observed for enlarging splenic lesion with elevated INR. #Splenic Lesion likley hematoma/ question infarction. abdominal pain better, tolerating diet - CT abd/pelvis shows interval development of subcapsular 3.8 x 2.6 cm hyperdense lesion along the anterior aspect of the mid part of the spleen possibly representing infarction versus laceration, no trauma? - elevated INR 4.9, Coumadin held INR trended down to 3.3 - seen by General surgery, due to concern for infarction they recommend vascular surgery and Cardiology consultation and echocardiogram as well as prophylactic IV antibiotic and anticoagulation - will follow surgical recommendation - continue morphine p.r.n. for severe pain, add Tylenol, follow PT INR and CBC closely, follow clinical course # supratherapeutic INR -INR 4.9, reports compliance with Coumadin ([facility] at [facility]) -s/p 5 mg vitamin K in the ED, INR down to 3.3 continue to hold Coumadin -follow INR, CBC # persistent atrial fibrillation-rate controlled -hold Coumadin as above -continue metoprolol # heart failure preserved ejection fraction -no acute exacerbation, hold diuretics today on Lasix 40 mg daily # hypertension -blood pressure reasonably controlled, continue amlodipine, metoprolol -continue home antihypertensives # HLD - on Zocor 20 mg daily, will change to Lipitor 10 mg DVT prophylaxis- SCPs DNR/DNI per [facility] [[email or web address]] form will change to inpatient, patient will need continued hospitalization for splenic lesion requiring expert opinion and further workup and IV antibiotics Time Spent With Patient Time: Total time managing care of this patient today ____ minutes. Quality Stroke Does the patient have a stroke diagnosis?: No VTE Prior VTE?: No VTE Risk Level:: Medical - moderate - high VTE Device Contraindication: N/A - Device Ordered VTE Drug Contraindication: Treatment Not Indicated
[2022-10-03] MEDS: cefTRIAXone sodium 1 GM in 0.9 % Sodium Chloride 50 ML IV (14:13)
[2022-10-03] MEDS: Acetaminophen 325 MG TABLET 650 MG PO ×2 (14:14→20:19)
[2022-10-03 14:26] VITALS: BP 133/51; PULSE 68; RESP 19; TEMP 36.9; O2SAT 96
--- NOTE | 2022-10-03 14:31 | PC.NURSE ---
called for report the rn is at lunch.
[2022-10-03 16:05] VITALS: BP 111/56; PULSE 55; RESP 18; TEMP 36.6; O2SAT 95
[2022-10-03 16:36] LABS: Glucose, Whole Blood 123 mg/dL (60-115)
[2022-10-03 19:33] VITALS: BP 129/61; PULSE 63; RESP 17; TEMP 36.6; O2SAT 96
[2022-10-03] MEDS: Metoprolol Tartrate 12.5 MG HALFTAB PO (20:19)
[2022-10-03 20:31] LABS: Glucose, Whole Blood 149 mg/dL (60-115)
[2022-10-04 00:25] VITALS: RESP 16
[2022-10-04 02:59] VITALS: BP 103/51; PULSE 84; RESP 18; TEMP 36.1; O2SAT 94
[2022-10-04 05:44] LABS: Hematocrit 29.7 % (37.0-47.0); Mean Corpuscular HGB Conc 30.3 g/dl (31.0-35.0); Mean Corpuscular Hemoglobin 27.8 pg (27.0-33.0); Mean Corpuscular Volume 91.7 fL (80.0-98.0); Mean Platelet Volume 10.3 fL (9.4-12.3); Platelet Count 179 X10*3/uL (160-400); Red Blood Count 3.24 X10*6/uL (4.20-5.50); Red Cell Distribution Width 14.9 % (11.0-16.0); White Blood Count 7.4 X10*3/uL (4.8-10.8)
[2022-10-04 05:59] LABS: Anion Gap 12 (12-20); Blood Urea Nitrogen 35 mg/dL (9-16); Calcium 9.2 mg/dL (8.4-10.2); Carbon Dioxide 30 mmol/L (22-29); Chloride 100 mmol/L (96-108); Estimated Glomerular Filt Rate > 60; Glucose Random 118 mg/dL (60-115); Potassium 4.7 mmol/L (3.3-5.1); Sodium 137 mmol/L (135-145)
[2022-10-04 06:33] LABS: INTERNATIONAL NORM RATIO 1.8 (0.9-1.1); Prothrombin Time 21.3 SEC (11.1-13.3)
[2022-10-04 07:34] VITALS: BP 120/60; PULSE 55; RESP 18; TEMP 36.7; O2SAT 96
--- NOTE | 2022-10-04 07:37 | PM.PNGS ---
Subjective Subjective Date of Service: 10/04/22 Patient reports: feels better and still having pain Interval history: The patient reports possible improvement in her abdominal pain and notes that is certainly not worse. She was sleeping when I evaluated her and easily arousable. She denies any localizing neurologic symptoms, difficulty breathing, shortness of breath. Physical Exam Vital Signs: Vital Signs: Last Vital Signs Temp 98.1 F 10/04/22 07:34 Pulse 55 10/04/22 07:34 Resp 18 10/04/22 07:34 BP 120/60 10/04/22 07:34 Pulse Ox 96 10/04/22 07:34 O2 Del Method Nasal Cannula 10/04/22 07:34 O2 Flow Rate 3 10/04/22 07:34 Oxygen Flow Rate 2 10/02/22 16:53 BMI result Body Mass Index 33.4 On exam she is nontoxic She is in no acute respiratory distress Her abdominal pain is a little less tender today. There is no pain to percussion as there was yesterday. There is no evidence of right or left lower quadrant pain suggestive of hemoperitoneum and there is no diffuse abdominal pain or peritoneal sign. Objective Data Active Medications Acetaminophen (Acetaminophen 325 Mg Tablet) 650 mg PO Q6H PRN PRN Reason: Pain, Mild (Pain Scale 1-3) Last Admin: 10/03/22 20:19 Dose: 650 mg Documented By: HOLLY Amlodipine Besylate (Amlodipine Besylate 5 Mg Tablet) 5 mg PO DAILY [facility]; Protocol Atorvastatin Calcium (Atorvastatin Calcium 10 Mg Tablet) 10 mg PO DAILY [facility] Folic Acid (Folic Acid 1 Mg Tablet) 1 mg PO DAILY [facility] Ceftriaxone Sodium 1 gm/ (Sodium Chloride) 50 mls @ 100 mls/hr IV Q24H [facility] Last Infusion: 10/03/22 15:01 Dose: 0 mls/hr Documented By: HARVEY Metoprolol Tartrate (Metoprolol Tartrate 12.5 Mg Halftab) 12.5 mg PO BID [facility]; Protocol Last Admin: 10/03/22 20:19 Dose: 12.5 mg Documented By: HOLLY Morphine Sulfate (Morphine Sulfate 2 Mg/Ml Cartridge) 2 mg IVPUSH Q4H PRN; Protocol PRN Reason: Pain, Severe (Pain Scale 7-10) Last Admin: 10/03/22 23:23 Dose: 2 mg Documented By: HOLLY Pharmacy Consult (Consult Rx Perform Med Rec) 1 each MISCELLANE ONCE PRN PRN Reason: Consult order Sertraline HCl (Sertraline Hcl 25 Mg Tablet) 25 mg PO DAILY [facility] Sodium Chloride (0.9 % Sodium Chloride Flush 3 Ml Syringe) 3 ml IVFLUSH QSHIFT [facility] Last Admin: 10/03/22 20:20 Dose: 3 ml Documented By: HOLLY Vitamin D (Cholecalciferol (Vitamin D3) 25 Mcg Tablet) 50 mcg PO DAILY [facility] Labs 10/04/22 05:27 10/04/22 05:27 Labs: Laboratory Results - last 24 hr 10/03/22 10/03/22 10/03/22 07:51 16:30 20:16 MCV MCH MCHC RDW Plt Count MPV Absolute Nucleated RBC Nucleated RBC % (auto) PT INR Anion Gap Estim Creat Clear Calc Estimated GFR POC Glucose 102 123 H 149 H Random Glucose Calcium 10/04/22 10/04/22 10/04/22 05:27 05:27 05:27 MCV 91.7 MCH 27.8 MCHC 30.3 L RDW 14.9 Plt Count 179 MPV 10.3 Absolute Nucleated RBC 0.000 Nucleated RBC % (auto) 0.0 PT 21.3 H D INR 1.8 H Anion Gap 12 Estim Creat Clear Calc 48.0 Estimated GFR > 60 POC Glucose Random Glucose 118 H Calcium 9.2 D Procedures Date of Service Date of Service: 10/04/22 Progress Note: A&P Assessment and plan (1) Lesion of spleen: Status: Acute (2) UTI (urinary tract infection): Status: Acute (3) Current use of anticoagulant therapy: Status: Acute (4) Abdominal pain: Status: Acute (5) Pulmonary hypertension: Status: Acute (6) Status post transcatheter aortic valve replacement: Status: Acute (7) Chronic diastolic (congestive) heart failure: Status: Acute (8) Persistent atrial fibrillation: Status: Acute (9) (HFpEF) heart failure with preserved ejection fraction: Status: Acute Plan There is a slight drift to the patient's hemoglobin, but she is persistently had anemia in her prior visits going back several years. She is having no severe abdominal pain to suggest hemoperitoneum. While she endorse acute onset of pain following a procedure, there are no recorded procedures to corroborate the story and the patient's daughter did not recall the patient ever mentioning left arm and abdominal pain. Given this, the patient may have an interest splenic hematoma or subcapsular hematoma related to over anticoagulation. Continue to trend her exam and labs. May need a repeat CT with IV contrast in the next few days but this can be considered at a later time. I should be contacted if she has severe abdominal pain or if her hemoglobin continues to fall. Will continue to follow Time Spent With Patient Time: Total time managing care of this patient today ____ minutes. Quality Stroke Does the patient have a stroke diagnosis?: No VTE Prior VTE?: No VTE Risk Level:: Medical - moderate - high VTE Device Contraindication: N/A - Device Ordered VTE Drug Contraindication: Treatment Not Indicated
[2022-10-04 07:40] LABS: Glucose, Whole Blood 99 mg/dL (60-115)
[2022-10-04] MEDS: 0.9 % Sodium Chloride Flush 3 ML SYRINGE IVFLUSH ×3 (08:03→20:13)
[2022-10-04] MEDS: Atorvastatin Calcium 10 MG TABLET PO (08:04)
[2022-10-04] MEDS: amLODIPine Besylate 5 MG TABLET PO (08:04)
[2022-10-04] MEDS: Folic Acid 1 MG TABLET PO (08:04)
[2022-10-04] MEDS: Cholecalciferol (Vitamin D3) 25 MCG TABLET 50 MCG PO (08:04)
[2022-10-04] MEDS: Sertraline HCL 25 MG TABLET PO (08:06)
[2022-10-04 11:13] LABS: Glucose, Whole Blood 112 mg/dL (60-115)
--- NOTE | 2022-10-04 11:21 | MHC.CLN ---
NUTRITION PATIENT WITH NO TEETH, NO DENTURES. DIET CONSISTENCY=REGULAR. REPORTED TO THIS DEVELOPMENT DIRECTOR THAT SHE DOES NOT HAVE A PROBLEM CHEWING REGULAR FOOD. MAY NEED ASSISTANCE CUTTING UP FOOD.
[2022-10-04] MEDS: Morphine Sulfate 2 MG/ML CARTRIDGE IVPUSH ×2 (12:51→20:12)
--- NOTE | 2022-10-04 12:54 | P.PNIM_ITS ---
Subjective Subjective Date of Service: 10/04/22 Interval History: feeling better less left upper quadrant abdominal pain, denies fever, no chills, tolerating diet, no vomiting, no diarrhea, no headache lightheadedness or dizziness no other acute issues overnight. Review of Systems All other system reviewed and negative. Physical Exam Vital Signs: Vital Signs: Last Vital Signs Temp 98.1 F 10/04/22 07:34 Pulse 55 10/04/22 07:34 Resp 18 10/04/22 07:34 BP 120/60 10/04/22 07:34 Pulse Ox 96 10/04/22 07:34 O2 Del Method Nasal Cannula 10/04/22 07:34 O2 Flow Rate 3 10/04/22 07:34 Oxygen Flow Rate 2 10/02/22 16:53 BMI result Body Mass Index 33.4 Const: Other: General? awake alert, resting comfortably in no acute distress.? Neck? supple no JVD. CVS? regular rate rhythm, Respiratory lungs clear to auscultation, no respiratory distress, no wheeze, no rhonchi. Gastrointestinal abdomen soft,? obese, left upper quadrant tender to palpation, no guarding, bowel sounds audible,? no rigidity. Extremities no? edema. Neuro nonfocal ,moving all 4 extremity speech clear. Skin no rash psych appropriate affect Objective Data Active Medications Acetaminophen (Acetaminophen 325 Mg Tablet) 650 mg PO Q6H PRN PRN Reason: Pain, Mild (Pain Scale 1-3) Last Admin: 10/03/22 20:19 Dose: 650 mg Documented By: JOSEORALB Amlodipine Besylate (Amlodipine Besylate 5 Mg Tablet) 5 mg PO DAILY [facility]LY [facility]; Pro tocol Last Admin: 10/04/22 08:04 Dose: 5 mg Documented By: PENG Atorvastatin Calcium (Atorvastatin Calcium 10 Mg Tablet) 10 mg PO DAILY [facility] Last Admin: 10/04/22 08:04 Dose: 10 mg Documented By: PENG Folic Acid (Folic Acid 1 Mg Tablet) 1 mg PO DAILY [facility] Last Admin: 10/04/22 08:04 Dose: 1 mg Documented By: PENG Ceftriaxone Sodium 1 gm/ (Sodium Chloride) 50 mls @ 100 mls/hr IV Q24H [facility] Last Infusion: 10/03/22 15:01 Dose: 0 mls/hr Documented By: HO.SCOC Metoprolol Tartrate (Metoprolol Tartrate 12.5 Mg Halftab) 12.5 mg PO BID [facility]; Protocol Last Admin: 10/04/22 08:04 Dose: Not Given Documented By: PENG Non-Admin Reason: Decreased Heart Rate Morphine Sulfate (Morphine Sulfate 2 Mg/Ml Cartridge) 2 mg IVPUSH Q4H PRN; Protocol PRN Reason: Pain, Severe (Pain Scale 7-10) Last Admin: 10/04/22 12:51 Dose: 2 mg Documented By: PENG Pharmacy Consult (Consult Rx Perform Med Rec) 1 each MISCELLANE ONCE PRN PRN Reason: Consult order Sertraline HCl (Sertraline Hcl 25 Mg Tablet) 25 mg PO DAILY [facility] Last Admin: 10/04/22 08:06 Dose: 25 mg Documented By: PENG Sodium Chloride (0.9 % Sodium Chloride Flush 3 Ml Syringe) 3 ml IVFLUSH QSHIFT [facility] Last Admin: 10/04/22 08:03 Dose: 3 ml Documented By: PENG Vitamin D (Cholecalciferol (Vitamin D3) 25 Mcg Tablet) 50 mcg PO DAILY [facility] Last Admin: 10/04/22 08:04 Dose: 50 mcg Documented By: PENG Labs 10/04/22 05:27 10/04/22 05:27 Labs: Laboratory Results - last 24 hr 10/03/22 10/03/22 10/04/22 16:30 20:16 05:27 MCV 91.7 MCH 27.8 MCHC 30.3 L RDW 14.9 Plt Count 179 MPV 10.3 Absolute Nucleated RBC 0.000 Nucleated RBC % (auto) 0.0 PT INR Anion Gap Estim Creat Clear Calc Estimated GFR POC Glucose 123 H 149 H Random Glucose Calcium 10/04/22 10/04/22 10/04/22 05:27 05:27 07:33 MCV MCH MCHC RDW Plt Count MPV Absolute Nucleated RBC Nucleated RBC % (auto) PT 21.3 H D INR 1.8 H Anion Gap 12 Estim Creat Clear Calc 48.0 Estimated GFR > 60 POC Glucose 99 Random Glucose 118 H Calcium 9.2 D 10/04/22 11:09 MCV MCH MCHC RDW Plt Count MPV Absolute Nucleated RBC Nucleated RBC % (auto) PT INR Anion Gap Estim Creat Clear Calc Estimated GFR POC Glucose 112 Random Glucose Calcium Assessment and Plan (1) Abdominal pain: Status: Acute (2) Lesion of spleen: Status: Acute Plan 82-year-old female with history of heart failure with preserved ejection fraction, chronic hypoxic respiratory failure on 2 L supplemental O2 as needed, persistent atrial fibrillation anticoagulated with Coumadin, anxiety depression, history of CVA, hyperlipidemia, rheumatoid arthritis, pulmonary hypertension, [id number] type 2 diabetes, and history of uterine cancer s/p total hysterectomy to be observed for enlarging splenic lesion with elevated INR. #Splenic Lesion most likely is splenic or subcapsular hematoma related to anticoagulation. abdominal pain better, tolerating diet - CT abd/pelvis shows interval development of subcapsular 3.8 x 2.6 cm hyperdense lesion along the anterior aspect of the mid part of the spleen possibly representing infarction versus laceration, no trauma? - elevated INR 4.9, on arrival improved to 1.8 no other sites of bleeding noted continue to hold Coumadin - less likely infarction will DC echo and cardiology consult, DC IV antibiotics - continue morphine p.r.n. for severe pain, and Tylenol hematocrit dropped but stable close to have baseline will follow CBC # supratherapeutic INR -INR 4.9, reports compliance with Coumadin (lives at [facility]) -s/p 5 mg vitamin K in the ED, INR down to 1.8 continue to hold Coumadin -follow INR, CBC # persistent atrial fibrillation-rate controlled -hold Coumadin as above -continue metoprolol # heart failure preserved ejection fraction -no acute exacerbation, hold diuretics on Lasix 40 mg daily, BP soft appears euvolemic follow clinical course # hypertension -blood pressure reasonably controlled, continue amlodipine, and metoprolol, diuretics on hold as above # HLD - on Zocor 20 mg daily, will change to Lipitor 10 mg DVT prophylaxis- SCPs DNR/DNI per [facility]OL[facility] form patient will need continued hospitalization for splenic lesion requiring close monitoring of CBC and INR Time Spent With Patient Time: Total time managing care of this patient today ____ minutes. Quality Stroke Does the patient have a stroke diagnosis?: No VTE Prior VTE?: No VTE Risk Level:: Medical - moderate - high VTE Device Contraindication: N/A - Device Ordered VTE Drug Contraindication: Treatment Not Indicated
--- NOTE | 2022-10-04 13:16 | MHC.CM.PN ---
[facility] return[facility] g when dcd she will need bls transport back
[2022-10-04 13:32] LABS: INTERNATIONAL NORM RATIO 1.7 (0.9-1.1); Prothrombin Time 20.4 SEC (11.1-13.3)
--- NOTE | 2022-10-04 14:01 | P.CONGS_ITS ---
History of Present Illness Consult details Consult date: 10/04/22 Reason for consult: other (Splenic infarct) Narrative: Very pleasant 82-year-old female presents for hospital evaluation regarding abdominal pain. Upon workup she was noted to actually have an INR as high as 4.9. She had unrelenting abdominal pain. She had undergone subsequent CT scan. There was a question of a splenic infarct verses trauma. Upon examination and workup she reports improvement of her abdominal pain she now presents for vascular evaluation. Review of Systems Review of Systems: Yes all other systems are reviewed and are negative Constitutional: Constitutional: Reports no additional constitutional complaints ENT: Reports Normal hearing present Cardiovascular: Cardiovascular: Denies chest pain, Denies chest pain at rest, Denies chest pain with activity and Denies pedal edema Respiratory: Respiratory: Denies cough Gastrointestinal: Gastrointestinal: Denies abdominal pain Musculoskeletal: Musculoskeletal: Denies abnormal gait, Denies muscle cramps and Denies radiating pain into limb Integumentary/Breasts: Skin/Breast: Denies skin ulcer and Denies wounds Neurologic: Reports Normal hearing present and Denies abnormal gait Psychiatric: Psychiatric: Reports no additional psychiatric complaints [facility] Past Medical History Medical History (Updated 10/04/22 @ 14:08 by Mateo Corado MD) (HFpEF) heart failure with preserved ejection fraction Acute pyelonephritis Anxiety and depression Atrial fibrillation CHF exacerbation Chronic anticoagulation Chronic hypoxemic respiratory failure Congestive heart failure CVA (cerebral vascular accident) Hypercholesterolemia Hypertension Lumbar vertebral fracture Nonrheumatic aortic valve stenosis Obesity (BMI 30-39.9) Pancytopenia Persistent atrial fibrillation Pneumonia Pulmonary hypertension Rash Rheumatoid arthritis Sepsis TIA (transient ischemic attack) Type 2 diabetes mellitus with hyperglycemia Uterine cancer Family History Family History Father Diabetes CAD (coronary artery disease) Mother Diabetes Hypertension Perforated ulcer Sister Diabetes Surgical History Surgical History (Updated 10/03/22 @ 14:34 by Parvez Loza MD) History of appendectomy History of colonoscopy History of left knee replacement History of right knee joint replacement History of transcatheter aortic valve replacement (TAVR) (~06/19/21) S/P ANTONIO-BSO Social History Social History Household Members: Significant Other Housing: Detention Housing Other:: lives with spouse Do you presently have visiting nurse or other home services: No Alcohol intake: never Patient Tobacco Use Status: Never used Tobacco Smoked in Last 30 Days: No e-Cigarette/Vaping Use: Never Used Second Hand Smoke Exposure: No Use of substances other than those prescribed or required for medical reasons: No Currently Displaying Signs/Symptoms of Drug Intoxication Withdrawal: No Have you been hit, kicked, punched, or otherwise hurt by someone within the past year? If so, by whom?: No Do you feel safe in your current relationship?: Yes Is there a partner from a previous relationship who is making you feel unsafe now?: No Are you made to feel afraid or neglected: No Advance Directives: Yes Advance Directives on File: Yes Advance Directives Date on File: 09/03/21 Do you have thoughts of harming others: None Do you have a plan to hurt others: No Plan Recently lost weight without trying: No Eating poorly because of decreased appetite: Yes Nutrition Risks: Dental problems Patient : No : No Poor oral hygiene: No (pt has no teeth) service: No Current occupational status: retired 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 Current occupational exposures/hazards: No Cognitive needs: Yes (cane, walker) Hearing needs: No Vision needs: Yes (glasses) Meds Allergies Allergy/AdvReac Type Severity Reaction Status Date / Time shellfish derived Allergy Unknown itchy Verified 09/25/22 03:06 procaine [From Novocain] AdvReac Unknown makes Verified 09/25/22 03:06 patient itchy,puffy Active Medications: Current Medications Acetaminophen (Acetaminophen 325 Mg Tablet) 650 mg PO Q6H PRN PRN Reason: Pain, Mild (Pain Scale 1-3) Last Admin: 10/03/22 20:19 Dose: 650 mg Amlodipine Besylate (Amlodipine Besylate 5 Mg Tablet) 5 mg PO DAILY REPLACED BY [facility]; Protocol Last Admin: 10/04/22 08:04 Dose: 5 mg Atorvastatin Calcium (Atorvastatin Calcium 10 Mg Tablet) 10 mg PO DAILY REPLACED BY [facility] Last Admin: 10/04/22 08:04 Dose: 10 mg Folic Acid (Folic Acid 1 Mg Tablet) 1 mg PO DAILY REPLACED BY [facility] Last Admin: 10/04/22 08:04 Dose: 1 mg Metoprolol Tartrate (Metoprolol Tartrate 12.5 Mg Halftab) 12.5 mg PO BID REPLACED BY [facility]; Protocol Last Admin: 10/04/22 08:04 Dose: Not Given Morphine Sulfate (Morphine Sulfate 2 Mg/Ml Cartridge) 2 mg IVPUSH Q4H PRN; Prot ocol PRN Reason: Pain, Severe (Pain Scale 7-10) Last Admin: 10/04/22 12:51 Dose: 2 mg Sertraline HCl (Sertraline Hcl 25 Mg Tablet) 25 mg PO DAILY REPLACED BY [facility] Last Admin: 10/04/22 08:06 Dose: 25 mg Sodium Chloride (0.9 % Sodium Chloride Flush 3 Ml Syringe) 3 ml IVFLUSH QSHIFT REPLACED BY [facility] Last Admin: 10/04/22 08:03 Dose: 3 ml Vitamin D (Cholecalciferol (Vitamin D3) 25 Mcg Tablet) 50 mcg PO DAILY REPLACED BY [facility] Last Admin: 10/04/22 08:04 Dose: 50 mcg Home Medications Medication Instructions Recorded Confirmed Last Taken Type acetaminophen 500 mg capsule 1,000 mg PO Q6H PRN Pain 09/15/22 10/03/22 09/23/22 History simvastatin 20 mg tablet 20 mg PO BEDTIME 09/25/22 10/03/22 09/23/22 History warfarin 1 mg tablet 2 mg PO SUMOTUTHFRSA@1800 09/25/22 10/03/22 09/23/22 History warfarin 1 mg tablet 3 mg PO WE@1800 09/25/22 10/03/22 09/22/22 History Physical Exam Vital Signs: Vital Signs: Last Vital Signs Temp 98.1 F 10/04/22 07:34 Pulse 55 10/04/22 07:34 Resp 18 10/04/22 07:34 BP 120/60 10/04/22 07:34 Pulse Ox 96 10/04/22 07:34 O2 Del Method Nasal Cannula 10/04/22 07:34 O2 Flow Rate 3 10/04/22 07:34 Oxygen Flow Rate 2 10/02/22 16:53 BMI result Body Mass Index 33.4 Const: General: cooperative, healthy appearing and comfortable Orientation/consciousness: oriented to person, oriented to place and oriented to time HEENT: Head: Yes normal to inspection Neck: Neck: Yes normal visual inspection Carotids: no bruits Chest: Chest palpation & inspection: normal inspection of the chest Resp: Effort & Inspection: normal respiratory effort and able to speak in complete sentences Auscultation: clear to auscultation bilaterally, no crackles, no rales, no rhonchi and no wheezes Cardio: Rate: regular rate Rhythm: regular rhythm Heart sounds: S1 normal heart sound present and S2 normal heart sound present Bruits: no carotid bruits Peripheral pulses: Peripheral pulses 2+ throughout GI: Other: Mild abdominal discomfort left upper quadrant Inspection: Yes normal to inspection Skin: Wounds: no wounds Hair: normal Neuro: General: oriented to person, oriented to place and oriented to time Cranial nerves: Yes CN's II-XII intact bilaterally and Yes Normal hearing present Cognition (Neuro): normal cognition Motor exam (neuro): 5/5 motor strength present throughout Extrem: Other: venous exam: No significant superficial varicosities or spider telangiectasias, minimal edema General: No clubbing, No cyanosis and No edema Psych: Appearance: grossly normal Mental Status: mental status grossly normal Speech and movement: Normal speech and movement present Results Labs 10/04/22 05:27 10/04/22 05:27 Labs: Abnormal lab results 10/03/22 10/03/22 10/04/22 Range/Units 16:30 20:16 05:27 RBC 3.24 L (4.20-5.50) X10*6/uL Hgb 9.0 L (12.0-16.0) g/dl Hct 29.7 L (37.0-47.0) % MCHC 30.3 L (31.0-35.0) g/dl PT (11.1-13.3) SEC INR (0.9-1.1) Carbon Dioxide (22-29) mmol/L BUN (9-16) mg/dL POC Glucose 123 H 149 H (60-115) mg/dL Random Glucose (60-115) mg/dL 10/04/22 10/04/22 10/04/22 Range/Units 05:27 05:27 13:18 RBC (4.20-5.50) X10*6/uL Hgb (12.0-16.0) g/dl Hct (37.0-47.0) % MCHC (31.0-35.0) g/dl PT 21.3 H D 20.4 H (11.1-13.3) SEC INR 1.8 H 1.7 H (0.9-1.1) Carbon Dioxide 30 H (22-29) mmol/L BUN 35 H (9-16) mg/dL POC Glucose (60-115) mg/dL Random Glucose 118 H (60-115) mg/dL Short CBC 10/04/22 Range/Units 05:27 WBC 7.4 (4.8-10.8) X10*3/uL Hgb 9.0 L (12.0-16.0) g/dl Hct 29.7 L (37.0-47.0) % Plt Count 179 (160-400) X10*3/uL BMP 10/04/22 05:27 Sodium 137 Potassium 4.7 Chloride 100 Carbon Dioxide 30 H BUN 35 H Creatinine 0.83 Calcium 9.2 D Urine 10/03/22 Range/Units 06:55 Urine Color Yellow Urine Appearance Clear Urine pH 5.0 (5.0-9.0) Ur Specific [place] >= 1.030 H (1.005-1.025) Urine Protein Trace (Neg-Trace) mg/dL Urine Glucose (UA) Negative (Negative) mg/dL All other labs normal. Imaging Additional studies: CT scan from 10/02/2022 was reviewed do appreciate left upper quadrant splenic contusion. Assessment and Plan (1) Spleen hematoma: Status: Acute Plan In short patient has a splenic hematoma. Her INR appears to be better controlled. In addition her abdominal pain appears to be improving. At the current time would manage conservatively. Would like to have INR within therapeutic range of 2-3. In addition should abdominal pain worsen would recommend repeat CT scan. At the current time no interventions are indicated. Thank you for allowing us to assist in her care we will follow with you. Time Spent With Patient Time: Total time managing care of this patient today ____ minutes. Procedures Date of Service Date of Service: 10/04/22
[2022-10-04 15:15] VITALS: BP 138/63; PULSE 69; RESP 20; TEMP 36.9; O2SAT 95
[2022-10-04 16:23] LABS: Glucose, Whole Blood 113 mg/dL (60-115)
[2022-10-04] MEDS: ALPRAZolam 0.25 MG TABLET PO (16:52)
[2022-10-04 19:29] VITALS: BP 120/55; PULSE 83; RESP 14; TEMP 36.9; O2SAT 95
[2022-10-04 19:51] LABS: Glucose, Whole Blood 151 mg/dL (60-115)
[2022-10-04] MEDS: Metoprolol Tartrate 12.5 MG HALFTAB PO (20:13)
[2022-10-04 21:01] VITALS: RESP 16
[2022-10-05 03:21] VITALS: BP 133/78; PULSE 84; RESP 16; TEMP 36.6; O2SAT 93
[2022-10-05 06:07] LABS: Hematocrit 29.4 % (37.0-47.0); Hemoglobin 9.1 g/dl (12.0-16.0); Mean Corpuscular Hemoglobin 28.2 pg (27.0-33.0); Platelet Count 170 X10*3/uL (160-400); Red Blood Count 3.23 X10*6/uL (4.20-5.50); Red Cell Distribution Width 14.7 % (11.0-16.0); White Blood Count 7.1 X10*3/uL (4.8-10.8)
[2022-10-05 07:23] VITALS: BP 145/65; PULSE 64; RESP 18; TEMP 36.2; O2SAT 92
[2022-10-05 07:39] LABS: Glucose, Whole Blood 106 mg/dL (60-115)
[2022-10-05] MEDS: Atorvastatin Calcium 10 MG TABLET PO (08:11)
[2022-10-05] MEDS: Sertraline HCL 25 MG TABLET PO (08:11)
[2022-10-05] MEDS: amLODIPine Besylate 5 MG TABLET PO (08:11)
[2022-10-05] MEDS: Cholecalciferol (Vitamin D3) 25 MCG TABLET 50 MCG PO (08:11)
[2022-10-05] MEDS: Folic Acid 1 MG TABLET PO (08:11)
[2022-10-05] MEDS: Metoprolol Tartrate 12.5 MG HALFTAB PO ×2 (08:11→20:44)
[2022-10-05] MEDS: 0.9 % Sodium Chloride Flush 3 ML SYRINGE IVFLUSH ×3 (08:12→19:47)
--- NOTE | 2022-10-05 08:26 | PM.PNGS ---
Subjective Subjective Date of Service: 10/05/22 Patient reports: no new complaints, feels better and still having pain Interval history: The patient is seen while she is eating breakfast. She notes that she feels better and denies any difficulty breathing, shortness of breath or new problems. She does note that she still has left-sided abdominal pain in asked if it would improve with an operation, I briefly discuss the inherent risks and that there is no acute need to operate. Physical Exam Vital Signs: Vital Signs: Last Vital Signs Temp 97.1 F 10/05/22 07:23 Pulse 64 10/05/22 07:23 Resp 18 10/05/22 07:23 BP 145/65 H 10/05/22 07:23 Pulse Ox 92 10/05/22 07:23 O2 Del Method Nasal Cannula 10/05/22 07:23 O2 Flow Rate 2 10/05/22 07:23 Oxygen Flow Rate 2 10/02/22 16:53 BMI result Body Mass Index 33.4 On exam she is nontoxic She is having no respiratory distress She is anicteric Her abdomen is unchanged from yesterday she has continued left-sided pain plus or minus peritoneal irritation to percussion but she does not have diffuse peritonitis concerning for hemoperitoneum Objective Data Active Medications Acetaminophen (Acetaminophen 325 Mg Tablet) 650 mg PO Q6H PRN PRN Reason: Pain, Mild (Pain Scale 1-3) Last Admin: 10/03/22 20:19 Dose: 650 mg Documented By: HOLLY Amlodipine Besylate (Amlodipine Besylate 5 Mg Tablet) 5 mg PO DAILY [facility]; Protocol Last Admin: 10/05/22 08:11 Dose: 5 mg Documented By: ISAURO Atorvastatin Calcium (Atorvastatin Calcium 10 Mg Tablet) 10 mg PO DAILY [facility] Last Admin: 10/05/22 08:11 Dose: 10 mg Documented By: ISAURO Folic Acid (Folic Acid 1 Mg Tablet) 1 mg PO DAILY [facility] Last Admin: 10/05/22 08:11 Dose: 1 mg Documented By: ISAURO Metoprolol Tartrate (Metoprolol Tartrate 12.5 Mg Halftab) 12.5 mg PO BID [facility]; Protocol Last Admin: 10/05/22 08:11 Dose: 12.5 mg Documented By: ISAURO Morphine Sulfate (Morphine Sulfate 2 Mg/Ml Cartridge) 2 mg IVPUSH Q4H PRN; Protocol PRN Reason: Pain, Severe (Pain Scale 7-10) Last Admin: 10/04/22 20:12 Dose: 2 mg Documented By: JOSEORALB Sertraline HCl (Sertraline Hcl 25 Mg Tablet) 25 mg PO DAILY [facility] Last Admin: 10/05/22 08:11 Dose: 25 mg Documented By: ISAURO Sodium Chloride (0.9 % Sodium Chloride Flush 3 Ml Syringe) 3 ml IVFLUSH QSHIFT [facility] Last Admin: 10/05/22 08:12 Dose: 3 ml Documented By: ISAURO Vitamin D (Cholecalciferol (Vitamin D3) 25 Mcg Tablet) 50 mcg PO DAILY [facility] Last Admin: 10/05/22 08:11 Dose: 50 mcg Documented By: ISAURO Labs 10/05/22 05:53 10/04/22 05:27 Labs: Laboratory Results - last 24 hr 10/04/22 10/04/22 10/04/22 11:09 13:18 16:09 MCV MCH MCHC RDW Plt Count MPV Absolute Nucleated RBC Nucleated RBC % (auto) PT 20.4 H INR 1.7 H POC Glucose 112 113 10/04/22 10/05/22 10/05/22 19:44 05:53 07:18 MCV 91.0 MCH 28.2 MCHC 31.0 RDW 14.7 Plt Count 170 MPV 10.0 Absolute Nucleated RBC 0.000 Nucleated RBC % (auto) 0.0 PT INR POC Glucose 151 H 106 Procedures Date of Service Date of Service: 10/05/22 Progress Note: A&P Assessment and plan (1) Lesion of spleen: Status: Acute (2) Spleen hematoma: Status: Acute (3) Abdominal pain: Status: Acute (4) Current use of anticoagulant therapy: Status: Acute (5) Constipation: Status: Acute (6) Pulmonary hypertension: Status: Acute (7) Status post transcatheter aortic valve replacement: Status: Acute (8) Chronic diastolic (congestive) heart failure: Status: Acute (9) Persistent atrial fibrillation: Status: Acute Plan The patient likely experienced some sort of interest splenic bleed due to being hypercoagulable rather than an actual infarct since there is no recent procedure that would have sent emboli to the spleen. Her hemoglobin has been stable, but given that she is an unreliable patient, a repeat CT of the abdomen with IV contrast either later today or tomorrow would be endorsed to better evaluate any progression of pathology prior to discharge. Will continue to follow. Please contact me with questions. Time Spent With Patient Time: Total time managing care of this patient today ____ minutes. Quality Stroke Does the patient have a stroke diagnosis?: No VTE Prior VTE?: No VTE Risk Level:: Medical - moderate - high VTE Device Contraindication: N/A - Device Ordered VTE Drug Contraindication: Treatment Not Indicated
--- NOTE | 2022-10-05 10:24 | HO.VASCPN ---
Subjective Subjective Date of Service: 10/05/22 Patient reports: no new complaints and feels better Interval history: Very pleasant 82-year-old female for follow-up regarding questionable splenic hematoma. Abdominal pain seems to have significantly improved over the last 2 days. Today denies any significant pain. Tolerating a diet. In general appears to be improving. Physical Exam Vital Signs: Vital Signs: Last Vital Signs Temp 97.1 F 10/05/22 07:23 Pulse 64 10/05/22 07:23 Resp 18 10/05/22 07:23 BP 145/65 H 10/05/22 07:23 Pulse Ox 92 10/05/22 07:23 O2 Del Method Nasal Cannula 10/05/22 07:23 O2 Flow Rate 2 10/05/22 07:23 Oxygen Flow Rate 2 10/02/22 16:53 BMI result Body Mass Index 33.4 Const: General: cooperative, healthy appearing and no acute distress Orientation/consciousness: oriented to person, oriented to place and oriented to time HEENT: Head: Yes normal to inspection Neck: Carotids: no bruits Chest: Chest palpation & inspection: normal inspection of the chest Resp: Effort & Inspection: normal respiratory effort and able to speak in complete sentences Auscultation: clear to auscultation bilaterally Cardio: Rate: regular rate Heart sounds: S1 normal heart sound present and S2 normal heart sound present GI: Inspection: Yes normal to inspection Skin: General skin exam: no rashes or lesions noted Wounds: no wounds Neuro: General: oriented to person, oriented to place, oriented to time and CN's II-XI intact bilaterally Extrem: General: Yes normal to inspection, Yes full ROM and Yes no clubbing, cyanosis or edema Psych: Appearance: grossly normal and well kempt Speech and movement: Normal speech and movement present Affect: normal affect Progress Note: A&P Assessment and plan (1) Spleen hematoma: Status: Acute Assessment and Plan: In short patient is doing well in terms what I believe is a splenic hematoma. Abdominal pain seems to be resolving. Stable from my perspective for discharge. Would hold off on any anticoagulants for about 2 weeks. Can follow up with us on an as-needed basis. Thank you for allowing us to assist in her care Time Spent With Patient Time: Total time managing care of this patient today ____ minutes. Procedures Date of Service Date of Service: 10/05/22 Quality Stroke Does the patient have a stroke diagnosis?: No VTE Prior VTE?: No VTE Risk Level:: Medical - moderate - high VTE Device Contraindication: N/A - Device Ordered VTE Drug Contraindication: Treatment Not Indicated
[2022-10-05 11:19] LABS: Glucose, Whole Blood 130 mg/dL (60-115)
[2022-10-05 13:58] VITALS: BP 145/65; PULSE 64; O2SAT 92
--- NOTE | 2022-10-05 14:04 | HO.PM.IMPN ---
Subjective Subjective Date of Service: 10/05/22 Interval History: resting comfortably, left upper quadrant abdominal pain is improving, denies nausea, vomiting, diarrhea denies fever, no chills, denies chest pain, no shortness of breath, no other acute issues overnight. Review of Systems all other system reviewed and negative Physical Exam Vital Signs: Vital Signs: Last Vital Signs Temp 97.1 F 10/05/22 07:23 Pulse 64 10/05/22 07:23 Resp 18 10/05/22 07:23 BP 145/65 H 10/05/22 07:23 Pulse Ox 92 10/05/22 07:23 O2 Del Method Nasal Cannula 10/05/22 07:23 O2 Flow Rate 2 10/05/22 07:23 Oxygen Flow Rate 2 10/02/22 16:53 BMI result Body Mass Index 33.4 Const: Other: General? awake alert, resting comfortably in no acute distress.? Neck? supple no JVD. CVS? regular rate rhythm, Respiratory lungs clear to auscultation, no respiratory distress, no wheeze, no rhonchi. Gastrointestinal abdomen soft,? obese, left upper quadrant tender to palpation, no guarding, bowel sounds audible,? no rigidity. Extremities no? edema. Neuro nonfocal ,moving all 4 extremity speech clear. Skin no rash psych appropriate affect Objective Data Active Medications Acetaminophen (Acetaminophen 325 Mg Tablet) 650 mg PO Q6H PRN PRN Reason: Pain, Mild (Pain Scale 1-3) Last Admin: 10/03/22 20:19 Dose: 650 mg Documented By: JOSEORALB Amlodipine Besylate (Amlodipine Besylate 5 Mg Tablet) 5 mg PO DAILY [facility]; Protocol Last Admin: 10/05/22 08:11 Dose: 5 mg Documented By: ISAURO Atorvastatin Calcium (Atorvastatin Calcium 10 Mg Tablet) 10 mg PO DAILY [facility] Last Admin: 10/05/22 08:11 Dose: 10 mg Documented By: ISAURO Folic Acid (Folic Acid 1 Mg Tablet) 1 mg PO DAILY [facility] Last Admin: 10/05/22 08:11 Dose: 1 mg Documented By: ISAURO Metoprolol Tartrate (Metoprolol Tartrate 12.5 Mg Halftab) 12.5 mg PO BID [facility]; Protocol Last Admin: 10/05/22 08:11 Dose: 12.5 mg Documented By: ISAURO Morphine Sulfate (Morphine Sulfate 2 Mg/Ml Cartridge) 2 mg IVPUSH Q4H PRN; Protocol PRN Reason: Pain, Severe (Pain Scale 7-10) Last Admin: 10/04/22 20:12 Dose: 2 mg Documented By: OZORALB Sertraline HCl (Sertraline Hcl 25 Mg Tablet) 25 mg PO DAILY [facility] Last Admin: 10/05/22 08:11 Dose: 25 mg Documented By: ISAURO Sodium Chloride (0.9 % Sodium Chloride Flush 3 Ml Syringe) 3 ml IVFLUSH QSHIFT [facility] Last Admin: 10/05/22 08:12 Dose: 3 ml Documented By: ISAURO Vitamin D (Cholecalciferol (Vitamin D3) 25 Mcg Tablet) 50 mcg PO DAILY [facility] Last Admin: 10/05/22 08:11 Dose: 50 mcg Documented By: ISAURO Labs 10/05/22 05:53 10/04/22 05:27 Labs: Laboratory Results - last 24 hr 10/04/22 10/04/22 10/05/22 16:09 19:44 05:53 MCV 91.0 MCH 28.2 MCHC 31.0 RDW 14.7 Plt Count 170 MPV 10.0 Absolute Nucleated RBC 0.000 Nucleated RBC % (auto) 0.0 POC Glucose 113 151 H 10/05/22 10/05/22 07:18 11:05 MCV MCH MCHC RDW Plt Count MPV Absolute Nucleated RBC Nucleated RBC % (auto) POC Glucose 106 130 H Assessment and Plan (1) Abdominal pain: Status: Acute (2) Lesion of spleen: Status: Acute Plan 82-year-old female with history of heart failure with preserved ejection fraction, chronic hypoxic respiratory failure on 2 L supplemental O2 as needed, persistent atrial fibrillation anticoagulated with Coumadin, anxiety depression, history of CVA, hyperlipidemia, rheumatoid arthritis, pulmonary hypertension, [id number] type 2 diabetes, and history of uterine cancer s/p total hysterectomy to be observed for enlarging splenic lesion with elevated INR. #Splenic Lesion most likely splenic or subcapsular hematoma related to anticoagulation. abdominal pain improving, tolerating diet, - CT abd/pelvis shows interval development of subcapsular 3.8 x 2.6 cm hyperdense lesion along the anterior aspect of the mid part of the spleen possibly representing infarction versus laceration, no trauma? - elevated INR 4.9, on arrival improved to 1.7 no other sites of bleeding noted continue to hold Coumadin x 2 weeks - less likely infarction - continue morphine p.r.n. for severe pain, and will schedule Tylenol and oxycodone hematocrit dropped but stable close to have baseline will follow CBC being followed by General surgery Dr. Meek he recommend repeat CT abdomen for follow-up, also being followed by vascular surgery Dr. Corado no vascular intervention recommended. Will obtain PT evaluation prior to return to rehab facility # supratherapeutic INR -INR 4.9, reports compliance with Coumadin (lives at [facility]) -s/p 5 mg vitamin K in the ED, INR down to 1.7 continue to hold Coumadin x 2 weeks # persistent atrial fibrillation-rate controlled -hold Coumadin as above -continue metoprolol # heart failure preserved ejection fraction -no acute exacerbation, hold diuretics on Lasix 40 mg daily, # hypertension -blood pressure reasonably controlled, continue amlodipine, and metoprolol, diuretics on hold as above # HLD - on Zocor 20 mg daily, will change to Lipitor 10 mg DVT prophylaxis- SCPs DNR/DNI per [facility] form patient will need continued hospitalization for splenic lesion requiring close monitoring of CBC and INR Time Spent With Patient Time: Total time managing care of this patient today ____ minutes. Quality Stroke Does the patient have a stroke diagnosis?: No VTE Prior VTE?: No VTE Risk Level:: Medical - moderate - high VTE Device Contraindication: N/A - Device Ordered VTE Drug Contraindication: Treatment Not Indicated
[2022-10-05] MEDS: Acetaminophen 325 MG TABLET 650 MG PO ×2 (14:26→20:44)
[2022-10-05 15:52] VITALS: BP 130/60; PULSE 58; RESP 18; TEMP 36; O2SAT 96
[2022-10-05 16:10] LABS: Glucose, Whole Blood 125 mg/dL (60-115)
[2022-10-05] MEDS: Morphine Sulfate 2 MG/ML CARTRIDGE IVPUSH (19:46)
[2022-10-05 20:00] VITALS: BP 131/62; PULSE 50; RESP 20; TEMP 36; O2SAT 94
[2022-10-05] MEDS: oxyCODONE HCl Immed Release 5 MG TABLET 2.5 MG PO (20:44)
[2022-10-05 20:53] LABS: Glucose, Whole Blood 116 mg/dL (60-115)
[2022-10-06 03:16] VITALS: BP 141/63; PULSE 75; RESP 16; TEMP 36.3; O2SAT 95
[2022-10-06 05:59] LABS: Hematocrit 31.2 % (37.0-47.0); Hemoglobin 9.7 g/dl (12.0-16.0); Mean Corpuscular HGB Conc 31.1 g/dl (31.0-35.0); Mean Corpuscular Hemoglobin 28.4 pg (27.0-33.0); Mean Corpuscular Volume 91.2 fL (80.0-98.0); Mean Platelet Volume 10.7 fL (9.4-12.3); Platelet Count 184 X10*3/uL (160-400); Red Blood Count 3.42 X10*6/uL (4.20-5.50); Red Cell Distribution Width 14.6 % (11.0-16.0)
[2022-10-06 06:55] LABS: INTERNATIONAL NORM RATIO 1.6 (0.9-1.1); Prothrombin Time 19.2 SEC (11.1-13.3)
--- NOTE | 2022-10-06 07:10 | P.PNGS_ITS ---
Subjective Subjective Date of Service: 10/06/22 Patient reports: feels better, tolerating a regular diet and flatus Interval history: The patient is resting comfortably. She reports her abdominal pain is improved but notes that she has significant left ear pain that is been impacting her ability to sleep. She otherwise denies chest pain, difficulty breathing, n ausea, vomiting, shortness of breath. Physical Exam Vital Signs: Vital Signs: Last Vital Signs Temp 97.3 F 10/06/22 03:16 Pulse 75 10/06/22 03:16 Resp 16 10/06/22 03:16 BP 141/63 H 10/06/22 03:16 Pulse Ox 95 10/06/22 03:16 O2 Del Method Nasal Cannula 10/06/22 03:16 O2 Flow Rate 2 10/06/22 03:16 Oxygen Flow Rate 2 10/02/22 16:53 BMI result Body Mass Index 33.4 On exam she is nontoxic She is in no acute respiratory distress Her abdomen is improved from yesterday with no peritoneal irritation to percussion and no tenderness. No diffuse abdominal pain/peritonitis is present on today's exam and I do not appreciate any hernias. Objective Data Active Medications Acetaminophen (Acetaminophen 325 Mg Tablet) 650 mg PO TID [facility] Last Admin: 10/05/22 20:44 Dose: 650 mg Documented By: FERNANDA Amlodipine Besylate (Amlodipine Besylate 5 Mg Tablet) 5 mg PO DAILY [facility]; Protocol Last Admin: 10/05/22 08:11 Dose: 5 mg Documented By: ISAURO Atorvastatin Calcium (Atorvastatin Calcium 10 Mg Tablet) 10 mg PO DAILY [facility] Last Admin: 10/05/22 08:11 Dose: 10 mg Documented By: ISAURO Folic Acid (Folic Acid 1 Mg Tablet) 1 mg PO DAILY [facility] Last Admin: 10/05/22 08:11 Dose: 1 mg Documented By: ISAURO Metoprolol Tartrate (Metoprolol Tartrate 12.5 Mg Halftab) 12.5 mg PO BID [facility]; Protocol Last Admin: 10/05/22 20:44 Dose: 12.5 mg Documented By: FERNANDA Morphine Sulfate (Morphine Sulfate 2 Mg/Ml Cartridge) 2 mg IVPUSH Q4H PRN; Protocol PRN Reason: Pain, Severe (Pain Scale 7-10) Last Admin: 10/05/22 19:46 Dose: 2 mg Documented By: FERNANDA Oxycodone HCl (Oxycodone Hcl Immed Release 5 Mg Tablet) 2.5 mg PO BID [facility] Last Admin: 10/05/22 20:44 Dose: 2.5 mg Documented By: FERNANDA Sertraline HCl (Sertraline Hcl 25 Mg Tablet) 25 mg PO DAILY [facility] Last Admin: 10/05/22 08:11 Dose: 25 mg Documented By: ISAURO Sodium Chloride (0.9 % Sodium Chloride Flush 3 Ml Syringe) 3 ml IVFLUSH QSHIFT [facility] Last Admin: 10/05/22 19:47 Dose: 3 ml Documented By: FERNANDA Vitamin D (Cholecalciferol (Vitamin D3) 25 Mcg Tablet) 50 mcg PO DAILY [facility] Last Admin: 10/05/22 08:11 Dose: 50 mcg Documented By: ISAURO Labs 10/06/22 05:22 10/04/22 05:27 Labs: Laboratory Results - last 24 hr 10/05/22 10/05/22 10/05/22 07:18 11:05 16:06 MCV MCH MCHC RDW Plt Count MPV Absolute Nucleated RBC Nucleated RBC % (auto) PT INR POC Glucose 106 130 H 125 H 10/05/22 10/06/22 10/06/22 20:48 05:22 05:22 MCV 91.2 MCH 28.4 MCHC 31.1 RDW 14.6 Plt Count 184 MPV 10.7 Absolute Nucleated RBC 0.000 Nucleated RBC % (auto) 0.0 PT 19.2 H INR 1.6 H POC Glucose [address] scan - abdomen: My impression: CT abdomen and pelvis with IV contrast to reassess the spleen is complete; official reading is pending, however in my interpretation, there is no hemo peritoneum, free air nor significant change from the admitting CT. Please note the patient does have a heavy stool burden in her colon. Radiologist's impression: Pending Procedures Date of Service Date of Service: 10/06/22 Progress Note: A&P Assessment and plan (1) Spleen hematoma: Status: Acute (2) Abdominal pain: Status: Acute (3) UTI (urinary tract infection): Status: Acute (4) Generalized weakness: Status: Acute (5) Current use of anticoagulant therapy: Status: Acute (6) Impaired mobility and ADLs: Status: Acute (7) Pulmonary hypertension: Status: Acute (8) Status post transcatheter aortic valve replacement: Status: Acute (9) Chronic diastolic (congestive) heart failure: Status: Acute (10) Persistent atrial fibrillation: Status: Acute Plan Check repeat CT abdomen and pelvis with IV contrast this morning. It was ordered yesterday by me Hemoglobin has remained stable and abdominal exam is improved. Would encourage discussion with Cardiology regarding anticoagulation and patient's risk for embolic stroke. While anticoagulation is typically held as long as possible, if the patient has significant risk, anticoagulation may need to be balanced with splenic hematoma. Addendum In my review of the CT scan in comparison with the admitting CT, there is no significant change; there is certainly no free air free fluid, however a fair: The stool burden is noted in the patient may benefit from a bowel regiment. CT/CT abdomen pelvis w IV con IMPRESSION: Slightly enlarged spleen. Stable wedge-shaped low-attenuation peripheral lesion in the anterior spleen probably representing an infarct from recent exam 10/02/2022.. Differential would include changes related to trauma. Stable 1 cm inferior splenic lesion probably representing a benign hemangioma. Question mild cirrhotic changes of the liver. Gallstones. Bilateral renal stones. Diverticulosis. Time Spent With Patient Time: Total time managing care of this patient today ____ minutes. Quality Stroke Does the patient have a stroke diagnosis?: No VTE Prior VTE?: No VTE Risk Level:: Medical - moderate - high VTE Device Contraindication: N/A - Device Ordered VTE Drug Contraindication: Treatment Not Indicated
[2022-10-06 07:20] VITALS: BP 165/72; PULSE 70; RESP 16; TEMP 36.3; O2SAT 96
[2022-10-06 07:40] LABS: Glucose, Whole Blood 118 mg/dL (60-115)
[2022-10-06] MEDS: Folic Acid 1 MG TABLET PO (08:02)
[2022-10-06] MEDS: Atorvastatin Calcium 10 MG TABLET PO (08:02)
[2022-10-06] MEDS: Metoprolol Tartrate 12.5 MG HALFTAB PO ×2 (08:02→20:24)
[2022-10-06] MEDS: Acetaminophen 325 MG TABLET 650 MG PO ×3 (08:02→20:24)
[2022-10-06] MEDS: oxyCODONE HCl Immed Release 5 MG TABLET 2.5 MG PO ×2 (08:02→20:25)
[2022-10-06] MEDS: amLODIPine Besylate 5 MG TABLET PO (08:02)
[2022-10-06] MEDS: Cholecalciferol (Vitamin D3) 25 MCG TABLET 50 MCG PO (08:02)
[2022-10-06] MEDS: Sertraline HCL 25 MG TABLET PO (08:02)
[2022-10-06] MEDS: 0.9 % Sodium Chloride Flush 3 ML SYRINGE IVFLUSH ×3 (08:04→20:24)
[2022-10-06 11:15] LABS: Glucose, Whole Blood 119 mg/dL (60-115)
[2022-10-06] MEDS: iohexoL 350 MG/ML 100 ML INFUS..BTL 85 ML IV (12:27)
[2022-10-06 14:14] VITALS: BP 165/72; PULSE 70; O2SAT 96
[2022-10-06 15:38] VITALS: BP 129/58; PULSE 59; RESP 20; TEMP 36; O2SAT 95
[2022-10-06 16:04] LABS: Glucose, Whole Blood 123 mg/dL (60-115)
[2022-10-06 19:23] VITALS: BP 110/58; PULSE 62; RESP 20; TEMP 36.2; O2SAT 96
[2022-10-06 19:25] VITALS: O2SAT 96
[2022-10-06 20:17] LABS: Glucose, Whole Blood 131 mg/dL (60-115)
[2022-10-07 04:00] VITALS: BP 137/65; PULSE 54; RESP 18; TEMP 36.1; O2SAT 97
[2022-10-07 07:02] VITALS: BP 129/60; PULSE 66; RESP 18; TEMP 36.1; O2SAT 96
--- NOTE | 2022-10-07 07:25 | PM.PNGS ---
Subjective Subjective Date of Service: 10/07/22 Patient reports: no new complaints, feels better, flatus and bowel movement Interval history: The patient reports that she has no abdominal pain but does have left ear pain and is now complaining of leg pain. She denies any chest pain, difficulty breathing or shortness of breath Physical Exam Vital Signs: Vital Signs: Last Vital Signs Temp 96.9 F 10/07/22 07:02 Pulse 66 10/07/22 07:02 Resp 18 10/07/22 07:02 BP 129/60 10/07/22 07:02 Pulse Ox 96 10/07/22 07:02 O2 Del Method Nasal Cannula 10/07/22 07:02 O2 Flow Rate 2 10/07/22 07:02 Oxygen Flow Rate 2 10/02/22 16:53 BMI result Body Mass Index 33.4 On exam she is nontoxic She is in no acute respiratory distress Her abdomen has minimal left-sided tenderness and no diffuse peritoneal sign Her left leg is soft and warm. There is no tenderness in the calf and there is no erythema Objective Data Active Medications Acetaminophen (Acetaminophen 325 Mg Tablet) 650 mg PO TID [facility] Last Admin: 10/06/22 20:24 Dose: 650 mg Documented By: FERNANDA Amlodipine Besylate (Amlodipine Besylate 5 Mg Tablet) 5 mg PO DAILY [facility]; Protocol Last Admin: 10/06/22 08:02 Dose: 5 mg Documented By: ISAURO Atorvastatin Calcium (Atorvastatin Calcium 10 Mg Tablet) 10 mg PO DAILY [facility] Last Admin: 10/06/22 08:02 Dose: 10 mg Documented By: ISAURO Folic Acid (Folic Acid 1 Mg Tablet) 1 mg PO DAILY [facility] Last Admin: 10/06/22 08:02 Dose: 1 mg Documented By: ISAURO Metoprolol Tartrate (Metoprolol Tartrate 12.5 Mg Halftab) 12.5 mg PO BID [facility]; Protocol Last Admin: 10/06/22 20:24 Dose: 12.5 mg Documented By: FERNANDA Morphine Sulfate (Morphine Sulfate 2 Mg/Ml Cartridge) 2 mg IVPUSH Q4H PRN; Protocol PRN Reason: Pain, Severe (Pain Scale 7-10) Last Admin: 10/05/22 19:46 Dose: 2 mg Documented By: FERNANDA Oxycodone HCl (Oxycodone Hcl Immed Release 5 Mg Tablet) 2.5 mg PO BID [facility] Last Admin: 10/06/22 20:25 Dose: 2.5 mg Documented By: FERNANDA Sertraline HCl (Sertraline Hcl 25 Mg Tablet) 25 mg PO DAILY [facility] Last Admin: 10/06/22 08:02 Dose: 25 mg Documented By: ISAURO Sodium Chloride (0.9 % Sodium Chloride Flush 3 Ml Syringe) 3 ml IVFLUSH QSHIFT [facility] Last Admin: 10/06/22 20:24 Dose: 3 ml Documented By: FERNANDA Vitamin D (Cholecalciferol (Vitamin D3) 25 Mcg Tablet) 50 mcg PO DAILY [facility] Last Admin: 10/06/22 08:02 Dose: 50 mcg Documented By: ISAURO Labs 10/06/22 05:22 10/04/22 05:27 Labs: Laboratory Results - last 24 hr 10/06/22 10/06/22 10/06/22 07:25 11:05 16:00 POC Glucose 118 H 119 H 123 H 10/06/22 20:09 POC Glucose 131 H 10/07/2022 labs are pending Procedures Date of Service Date of Service: 10/07/22 Progress Note: A&P Assessment and plan (1) Spleen hematoma: Status: Acute (2) Abdominal pain: Status: Acute (3) Lesion of spleen: Status: Acute (4) Current use of anticoagulant therapy: Status: Acute (5) Pulmonary hypertension: Status: Acute (6) Status post transcatheter aortic valve replacement: Status: Acute (7) Chronic diastolic (congestive) heart failure: Status: Acute (8) Persistent atrial fibrillation: Status: Acute Plan The patient is surgically stable at this time. Again recommend discussion regarding the patient's embolic risk. We typically try to keep the patient off of a blood thinner as long as possible in this situation, but if cardiology feels an embolic event outweighs the risks of anticoagulation which could contribute to hematoma rupture or bleeding, this needs to be considered. I will be away until 10/11/2022 at 07:00. Please call the on-call surgeon if there are any acute changes that need to be re-evaluated. Time Spent With Patient Time: Total time managing care of this patient today ____ minutes. Quality Stroke Does the patient have a stroke diagnosis?: No VTE Prior VTE?: No VTE Risk Level:: Medical - moderate - high VTE Device Contraindication: N/A - Device Ordered VTE Drug Contraindication: Treatment Not Indicated
[2022-10-07 07:32] LABS: Glucose, Whole Blood 93 mg/dL (60-115)
[2022-10-07] MEDS: Metoprolol Tartrate 12.5 MG HALFTAB PO (07:59)
[2022-10-07] MEDS: Atorvastatin Calcium 10 MG TABLET PO (07:59)
[2022-10-07] MEDS: Acetaminophen 325 MG TABLET 650 MG PO ×2 (07:59→14:02)
[2022-10-07] MEDS: amLODIPine Besylate 5 MG TABLET PO (07:59)
[2022-10-07] MEDS: Cholecalciferol (Vitamin D3) 25 MCG TABLET 50 MCG PO (08:00)
[2022-10-07] MEDS: Folic Acid 1 MG TABLET PO (08:00)
[2022-10-07] MEDS: oxyCODONE HCl Immed Release 5 MG TABLET 2.5 MG PO (08:00)
[2022-10-07] MEDS: Sertraline HCL 25 MG TABLET PO (08:00)
[2022-10-07] MEDS: 0.9 % Sodium Chloride Flush 3 ML SYRINGE IVFLUSH ×2 (08:06→15:04)
[2022-10-07 11:09] LABS: Glucose, Whole Blood 128 mg/dL (60-115)
[2022-10-07 13:44] VITALS: BP 129/60; PULSE 66; O2SAT 96
--- NOTE | 2022-10-07 15:17 | PM.DS ---
DS: Providers Provider Date of Service: 10/07/22 Date of admission: 10/03/22 13:40 Date of discharge: 10/07/22 Primary care physician: MING NAQVI Consults: 10/02/22 21:21 Consult to General Surgery Stat Consulting Provider: [facility] General Surgeons Reason for consultation: spleinc infarct vs hematoma Has provider been notified: Yes 10/03/22 13:33 Consult to Vascular Surgery Routine Consulting Provider: [facility] Vascular Services Reason for consultation: splenic infarct Has provider been notified: No Attending physician on discharge: Reyes Cee Discharging clinician: Allegra Desir DS: Diagnosis Discharge Diagnosis (1) Spleen hematoma: Status: Acute (2) Abdominal pain: Status: Acute (3) Lesion of spleen: Status: Acute (4) Current use of anticoagulant therapy: Status: Acute (5) Pulmonary hypertension: Status: Acute (6) Status post transcatheter aortic valve replacement: Status: Acute (7) Chronic diastolic (congestive) heart failure: Status: Acute (8) Persistent atrial fibrillation: Status: Acute DS: Summary Hospital Course Hospital Course: From H&P on the day of admission 82-year-old female with history of heart failure with preserved ejection fraction, chronic hypoxic respiratory failure on 2 L supplemental O2 as needed, persistent atrial fibrillation anticoagulated with Coumadin, anxiety depression, history of CVA, hyperlipidemia, rheumatoid arthritis, pulmonary hypertension, mlr-rrudezb-vscctutym type 2 diabetes, and history of uterine cancer s/p total hysterectomy presents to the ED earlier today from [facility] where she resides for evaluation of sudden-onset left upper quadrant pain that occurred about 20 minutes after eating dinner comprised of kelley and potato chips.? She describes the pain as severe and radiated to left arm.? She also had headache at that time.? Denies any associated fevers, chills, nausea, vomiting, diarrhea, constipation, urinary symptoms, shortness of breath, palpitations, chest pain.? On arrival to the ED, vital stable, no acute hypoxia or hypotension.? There is no leukocytosis.? There is stable normocytic anemia with H/H 10.5/32.6%.? PTT 59.3, INR 4.9.? Troponin 16.4.? Chest x-ray showed mild pulmonary venous congestion and persistent right infrahilar asymmetric soft tissue fullness.? CT the abdomen/pelvis showed interval development of subcapsular 3.8 x 2.6 cm hypodense lesion along the anterior aspect of the mid part of the spleen possibly representing splenic infarction versus laceration, No extravasation, among other findings.? ED discussed case with General surgery recommending admission to manage INR and for pain management.? In the ED, she received a total of 8 mg IV morphine, 5 mg vitamin K, and 4 mg ondansetron.? She denies any trauma. Splenic Lesion? most likely splenic or subcapsular hematoma related to anticoagulation/supratherapeutic INR. seen by general surgery and vascular surgery, no surgical intervention required. Repeat CT abdomen showed stable changes. H/H has remained stable. ? Abdominal pain improving, tolerating diet, has not received IV pain medication in two days. Per surgery recommend to hold AC for two weeks. PT recommend return to [facility]. supratherapeutic INR INR 4.9 on arrival. Received 5 mg vitamin K in the ED, INR down to 1.6. continue to hold Coumadin x 2 weeks persistent atrial fibrillation-rate controlled-hold Coumadin as above continue metoprolol heart failure preserved ejection fraction no acute exacerbation hypertension blood pressure reasonably controlled, continue amlodipine, and metoprolol chronic respiratory failure on 2L supplemental oxygen, continue as needed. Time Spent with Patient Time attestation: Total time managing care of this patient today ____ minutes. Discharge coordination time: Greater than 30 minutes Quality: Safe Use of Opioids Does Pt have an Active Cancer Diagnosis on the Problem List?: No Quality: Stroke Does the patient have a stroke diagnosis?: No Physical Exam Vital Signs: Vital Signs: Last Vital Signs Temp 96.9 F 10/07/22 07:02 Pulse 66 10/07/22 13:44 Resp 18 10/07/22 07:02 BP 129/60 10/07/22 13:44 Pulse Ox 96 10/07/22 13:44 O2 Del Method Nasal Cannula 10/07/22 07:02 O2 Flow Rate 2 10/07/22 07:02 Oxygen Flow Rate 2 10/02/22 16:53 BMI result Body Mass Index 33.4 Const: General: cooperative, comfortable, no acute distress, alert and awake Nutritional Appearance: average body habitus Orientation/consciousness: patient oriented x3 Resp: Effort & Inspection: normal respiratory effort, able to speak in complete sentences, no respiratory distress and no use of accessory muscles Cardio: Rate: regular rate GI: Inspection: No distended Palpation (GI): Soft to palpation and nontender Neuro: Other: grossly nonfocal General: patient oriented x3 and moves all extremities DS: Data Data Completed and Pending Completed studies during hospitalization [Text1]: Procedures Transfusion of Nonautologous Red Blood Cells into Peripheral Vein, Percutaneous Approach (01/01/21) Labs on day of discharge: Laboratory Results - last 24 hr 10/06/22 10/06/22 10/07/22 16:00 20:09 07:06 POC Glucose 123 H 131 H 93 10/07/22 11:01 POC Glucose 128 H Discharge Plan Discharge Anticipated Discharge Date/Time: 10/07/22 15:28 Patient Disposition: er SNF Discharge Diagnosis: splenic lesion likely representing splenic hematoma supratherapeutic INR persistent atrial fibrillation Referrals: [facility] [Outside] - 1 Week (RETURN TO [facility] FOR RESUMPTION OF CARE) MING NAQVI [Primary Care Provider] - 1 Week Discharge Medications: New oxycodone 5 mg tablet 2.5 mg PO BID PRN (Reason: pain (scale score 7-10)) Qty: 10 0RF Rx Instructions: Partial Fill upon patient request. Continued furosemide 40 mg tablet 40 mg PO DAILY Qty: 90 3RF metoprolol tartrate 25 mg tablet 12.5 mg PO BID 90 Days Qty: 90 2RF sertraline [Zoloft] 25 mg tablet 25 mg PO DAILY Qty: 30 2RF folic acid 1 mg tablet 1 mg PO DAILY Qty: 28 0RF cholecalciferol (vitamin D3) 50 mcg (2,000 unit) capsule 50 mcg PO DAILY Qty: 28 0RF simvastatin 20 mg tablet 20 mg PO BEDTIME amlodipine 5 mg Tablet 5 mg PO DAILY Qty: 30 0RF Protocol: Hold for SBP< HOLD for SBP < : 90 acetaminophen 500 mg capsule 1,000 mg PO Q6H PRN (Reason: Pain) Held warfarin 1 mg tablet 3 mg PO WE@1800 Hold Instructions: hold for two weeks, consider resuming 10/16. needs PCP eval warfarin 1 mg tablet 2 mg PO SUMOTUTHFRSA@1800 Hold Instructions: hold for splenic hematoma Protocol: Dose Management Condition: Tuesday (Week One) Dose/Route: 2 mg Instruction: 2 x 1 mg tablets Condition: Tuesday Dose/Route: 2 mg Instruction: 2 x 1 mg tablets Condition: Tuesday Dose/Route: 2 mg Instruction: 2 x 1 mg tablets Condition: Tuesday Dose/Route: 3 mg Instruction: 3 x 1 mg tablets Condition: Dose/Route: 2 mg Instruction: 2 x 1 mg tablets Condition: Tuesday Dose/Route: 2 mg Instruction: 2 x 1 mg tablets Condition: Tuesday Dose/Route: 2 mg Instruction: 2 x 1 mg tablets Condition: Tuesday (Week Two) Dose/Route: 2 mg Instruction: 2 x 1 mg tablets Condition: Tuesday Dose/Route: 2 mg Instruction: 2 x 1 mg tablets Condition: Tuesday Dose/Route: 2 mg Instruction: 2 x 1 mg tablets Condition: Tuesday Dose/Route: 3 mg Instruction: 3 x 1 mg tablets Condition: Dose/Route: 2 mg Instruction: 2 x 1 mg tablets Condition: Tuesday Dose/Route: 2 mg Instruction: 2 x 1 mg tablets Condition: Tuesday Dose/Route: 2 mg Instruction: 2 x 1 mg tablets Protocol Text: Adjustment Start Date: Tuesday09/15/22 INR Value: 2.2 INR Date: 09/15/22 Recheck Date: 09/29/22 Additional Instructions: EAT A MIX OF FRUITS AND VEGETABLES Rx Instructions: or as directed Discontinued cefuroxime axetil 250 mg tablet 250 mg PO BID Qty: 6 0RF No Action (DME) Hospital bed See Rx Instructions .Route .MEDSUPPLY Qty: 1 0RF Rx Instructions: As directed (DME) hospital mattress See Rx Instructions .Route .MEDSUPPLY Qty: 1 0RF Rx Instructions: As directed (DME) blood-glucose meter [OneTouch Ultra2 Meter] Kit See Rx Instructions .ROUTE .MEDSUPPLY Qty: 1 0RF Rx Instructions: As directed check the blood sugar once a day (DME) blood sugar diagnostic Strip See Rx Instructions .ROUTE .MEDSUPPLY Qty: 250 3RF Rx Instructions: Twice a day Discharge Orders: Discharge Order (Routine); Ordered 10/07/22 Ordered By: Allegra Desir Activity on Discharge: As tolerated Stand Alone Forms: Patient Portal Discharge page Care Plan Goals: see below Health Concerns: probable splenic hematoma atrial fibrillation Plan of Treatment: recommend to hold AC (coumadin) for two weeks, held on 10/02 recommend follow up with PCP prior to resuming coumadin Assessment: see discharge summary
--- NOTE | 2022-10-07 15:42 | MHC.CM.PN ---
Addendum entered by Paris Goldsmith 10/07/22 16:18: CM WAS UNABLE TO REACH HCP/SPOUSE VIA TELEPHONE. PT REQUESTED CM NOTIFY STEP-DAUGHTER JAMIL THAT SHE WOULD BE TRANSFERRING BACK TO [facility]. CM CALLED JAMIL AND SHE WILL NOTIFY HER FATHER OF HER RETURN TO SNF. Original Note: DP: PT HAS BEEN MEDICALLY CLEARED FOR DC BACK TO [facility] AT [facility]. CENTER NOTIFIED VIA [facility] AND SPOKE WITH [facility] IN ADMISSIONS. RN NOTIFIED. BLS TRANSPORT BOOKED FOR 4:30 PM [facility]IA [facility].
[2022-10-07 15:50] VITALS: BP 122/57; PULSE 56; RESP 20; TEMP 36.2; O2SAT 97
[2022-10-07 16:18] LABS: Glucose, Whole Blood 120 mg/dL (60-115)
== END 2022-10-07 16:48 | disposition skilled nursing facility (03) | DRG 813 ==
LOC: HO.ED 21:30 → HO.EDOVER 21:53 → HO.S3 10-03 14:15
PROVIDERS: Hospitalist; Internal Medicine; Physician Assistant; Admitting Provider Physician Assistant; Emergency Provider Emergency Medicine; PCP Emergency Medicine; Visit Provider Physician Assistant Medical
DX: D68.32 Hemorrhagic disorder due to extrinsic circulating anticoagulants (principal); I48.19 Other persistent atrial fibrillation; I50.32 Chronic diastolic (congestive) heart failure; J96.11 Chronic respiratory failure with hypoxia; D73.5 Infarction of spleen; I11.0 Hypertensive heart disease with heart failure; T45.515A Adverse effect of anticoagulants, initial encounter; I27.20 Pulmonary hypertension, unspecified; E78.00 Pure hypercholesterolemia, unspecified; Z66 Do not resuscitate; D64.9 Anemia, unspecified; M06.9 Rheumatoid arthritis, unspecified; Z95.2 Presence of prosthetic heart valve; Z99.81 Dependence on supplemental oxygen; Z79.01 Long term (current) use of anticoagulants; Z79.899 Other long term (current) drug therapy
CPT/HCPCS: 36415; 71045; 74177; 80048; 80053; 81001; 82947; 83690; 84484; 85025; 85027; 85610; 85730; 93005; 97110; 97116; 97162; 99221; 99285; J0696; J2270; J2405; Q9967

== ENCOUNTER → 2022-10-02 21:46 | Outpatient (BNV) | payer MEDICARE, OTHER, SELFPAY | PROVIDERS: Admitting Provider Physician Assistant; Emergency Provider Emergency Medicine; PCP Emergency Medicine; Visit Provider Physician Assistant | DX: I27.20 Pulmonary hypertension, unspecified (principal); Z79.01 Long term (current) use of anticoagulants; I50.32 Chronic diastolic (congestive) heart failure; I48.19 Other persistent atrial fibrillation; S36.029A Unspecified contusion of spleen, initial encounter; R10.9 Unspecified abdominal pain; D73.89 Other diseases of spleen; Z95.2 Presence of prosthetic heart valve | CPT/HCPCS: 99223; 99233; 99239 ==

== ENCOUNTER → 2022-10-02 21:46 | Outpatient (BNV) | payer MEDICARE, OTHER, SELFPAY | PROVIDERS: Admitting Provider Physician Assistant; Emergency Provider Emergency Medicine; PCP Emergency Medicine; Visit Provider Surgery | DX: S36.029A Unspecified contusion of spleen, initial encounter (principal); R10.9 Unspecified abdominal pain; D73.89 Other diseases of spleen; Z79.01 Long term (current) use of anticoagulants; I27.20 Pulmonary hypertension, unspecified; Z95.2 Presence of prosthetic heart valve; I50.32 Chronic diastolic (congestive) heart failure; I48.19 Other persistent atrial fibrillation | CPT/HCPCS: 99222; 99231; 99232 ==

== ENCOUNTER → 2022-10-03 13:40 | Outpatient (BNV) | payer MEDICARE, OTHER, SELFPAY | PROVIDERS: Admitting Provider Physician Assistant; Emergency Provider Emergency Medicine; PCP Emergency Medicine; Visit Provider Surgery Vascular Surgery | DX: S36.029A Unspecified contusion of spleen, initial encounter (principal); Z79.01 Long term (current) use of anticoagulants | CPT/HCPCS: 99221; 99231 ==

== ENCOUNTER 2022-11-09 02:46 | Emergency (ER) | payer MEDICARE, OTHER, SELFPAY ==
[2022-11-09] VITALS (8 sets, daily range): BP systolic 128–160; BP diastolic 49–90; PULSE 62–105; RESP 16–20; TEMP 36.3–37; O2SAT 93–96; BMI 33.7
--- NOTE | ~2022-11-09 | XR_ITS ---
EXAMINATION: XR FEMUR, LEFT CLINICAL INFORMATION: Pain COMPARISON: 08/21/2021 TECHNIQUE: AP and lateral views of the left femur were obtained. FINDINGS: Alignment at the hip is anatomic, and the joint space is relatively well-maintained. No acute fracture is seen. Vascular calcification is present. Status post total knee arthroplasty, which appears in anatomic alignment on these views. XR/XR femur LT 2V IMPRESSION: No acute findings in the left femur.
--- NOTE | ~2022-11-09 | CT_ITS ---
EXAMINATION: CT ABDOMEN AND PELVIS WITH CONTRAST CLINICAL INFORMATION: Abdominal pain. Nausea and vomiting. COMPARISON: None available. TECHNIQUE: Multidetector volumetric images were obtained from the superior aspect of the liver through the pubic symphysis following administration 85 mL of Omnipaque 350 intravenous contrast. Sagittal and coronal reformatted images were obtained on the technologist's workstation. Oral contrast: No This CT examination was performed using dose optimization techniques as appropriate, variously including the following: *Automated exposure control *Adjustment of mA and/or kV according to patient size (this includes techniques or standardized protocols for targeted exams where dose is matched to indication/reason for exam; i.e. extremities or head) *Use of iterative reconstruction technique DLP: 776 mGy-cm FINDINGS: LUNG BASES: The visualized lung bases are unremarkable. LIVER, GALLBLADDER, AND BILIARY TREE: The liver is irregular in contour. No focal liver lesions are seen. There is no intrahepatic biliary duct dilatation. Numerous gallstones are noted. PANCREAS: Unremarkable. SPLEEN: There is a nonspecific 1.5 cm hypodensity mid left spleen. Spleen is mildly enlarged measuring up to 15 cm. ADRENAL GLANDS: Unremarkable. KIDNEYS AND URETERS: The kidneys are normal in size, shape, and attenuation. There is a 4 mm nonobstructing calculus lower pole left kidney and three 3 to 4 mm calculi lower pole right kidney. There is scarring inferior left kidney and superior right kidney. There is no hydronephrosis. BLADDER: Unremarkable. GASTROINTESTINAL TRACT: Prominent fluid-filled small bowel loops throughout. There are a few diverticula of the distal descending/proximal sigmoid colon without diverticulitis. The appendix is within normal limits. ABDOMINAL WALL: No significant hernia is appreciated. LYMPH NODES: Normal. VASCULAR: Unremarkable. PELVIC VISCERA: Unremarkable. OSSEOUS STRUCTURES: There is significant L2 compression fracture which was seen previously. CT/CT abdomen pelvis w IV con IMPRESSION: Prominent fluid-filled small bowel loops is nonspecific but may be seen with a mild enteritis. Cholelithiasis. Irregular liver contour possibly hepatocellular disease. Mild splenomegaly. Nonobstructing renal calculi. Diverticula of the distal descending/proximal sigmoid colon without diverticulitis. Fleischner guidelines were followed.
--- NOTE | ~2022-11-09 | US_ITS ---
EXAMINATION: US VENOUS ULTRASOUND WITH DOPPLER LOWER EXTREMITY, LEFT CLINICAL INFORMATION: Pain and swelling left leg COMPARISON: 01/11/2022 TECHNIQUE: Ultrasound of the deep veins is performed from the hip to the calf with compression sonography and color and pulse Doppler assessment. Spectral analysis with color-flow imaging is performed. FINDINGS: There is normal venous compression and respiratory variation and augmented flow. The visualized common femoral vein, superficial femoral vein, profunda femoral vein, popliteal vein, and the trifurcation region shows no evidence of deep venous thrombosis. There is no significant popliteal fossa cyst. If the patient's symptoms persist, followup ultrasound in 5 days 7 days might be of value to exclude proximal propagation from a non-visualized calf vein. US/US venous duplex LE LT IMPRESSION: No DVT demonstrated in the left lower extremity.
[2022-11-09] MEDS: Acetaminophen 325 MG TABLET 650 MG PO (03:25)
[2022-11-09 03:34] LABS: Basophils Percent Auto 0.4 % (0-2); Eosinophils Absolute Auto 0.3 X10*3/uL (0.0-0.4); Eosinophils Percent Auto 3.5 % (0-4); Hematocrit 31.7 % (37.0-47.0); Hemoglobin 9.7 g/dl (12.0-16.0); Imm Gran Abs Auto 0.03 X10*3/uL (0.00-0.03); Imm Gran Pct Auto 0.4 % (0.0-0.4); Lymphocytes Absolute Auto 0.9 X10*3/uL (1.2-4.9); Lymphocytes Percent Auto 11.3 % (20-40); MANUAL DIFF FLAG NO; Mean Corpuscular HGB Conc 30.6 g/dl (31.0-35.0); Mean Corpuscular Hemoglobin 27.7 pg (27.0-33.0); Mean Corpuscular Volume 90.6 fL (80.0-98.0); Mean Platelet Volume 9.8 fL (9.4-12.3); Monocytes Absolute Auto 0.8 X10*3/uL (0.1-1.2); Monocytes Percent Auto 10.8 % (2-11); Neutrophils Absolute Auto 5.7 x10*3/uL (2.0-8.3); Neutrophils Percent Auto 73.6 % (45-73); Platelet Count 200 X10*3/uL (160-400); Red Cell Distribution Width 16.8 % (11.0-16.0); White Blood Count 7.7 X10*3/uL (4.8-10.8)
[2022-11-09 03:58] LABS: Anion Gap 15 (12-20); Blood Urea Nitrogen 19 mg/dL (9-16); Carbon Dioxide 25 mmol/L (22-29); Chloride 106 mmol/L (96-108); Creatinine Clr Calc Pharmacy 52.1; Estimated Glomerular Filt Rate > 60; Glucose Random 201 mg/dL (60-115); Magnesium 1.9 mg/dL (1.6-2.6); Potassium 3.3 mmol/L (3.3-5.1); Sodium 143 mmol/L (135-145)
--- NOTE | 2022-11-09 04:33 | ED_ITS ---
HPI - Extremity Problem General Chief complaint: Extremity Problem Stated complaint: leg and left hip pain Time Seen by Provider: 11/09/22 03:02 Source: patient and old records reviewed Mode of arrival: EMS Limitations: no limitations History of Present Illness HPI Narrative: 82 yo female with PMH of PAF was on afib and it seems her PCP wants her to resume after a recent fall, anxiety, depression, obesity, RA, HLD, HTN, anemia, DM, aortic stenosis here with c/o jsut getting out of rehab in [place] after fall and head injury was staying at a place in [place]. She was at home today when she went to get up and felt a shooting pain in L buttock into left thigh down the leg. NO trauma or falls no numbness/weakness no b/b incontinence no saddle anesthesia. She has had sciatica before and it reminds her of this. 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 Consistency: intermittent Location: left and lower extremity Quality: stabbing Radiation: distal Relieving factors: immobilization Exacerbating factors: weight bearing and walking Associated symptoms: denies other symptoms Related Data Home Medications Medication Instructions Recorded Confirmed acetaminophen 500 mg capsule 1,000 mg PO Q6H PRN Pain 09/15/22 10/03/22 warfarin 1 mg tablet 2 mg PO SUMOTUTHFRSA@1800 09/25/22 10/03/22 warfarin 1 mg tablet 3 mg PO WE@1800 09/25/22 10/03/22 Previous Rx's Medication Instructions Recorded blood sugar diagnostic #250 ea 07/29/21 blood-glucose meter (OneTouch #1 ea 07/29/21 Ultra2 Meter kit) Hospital bed #1 ea 09/16/21 furosemide 40 mg tablet 40 mg PO DAILY #90 tabs 12/31/21 metoprolol tartrate 25 mg tablet 12.5 mg (1/2 x 25 mg) PO BID 90 07/26/22 days #90 tabs hospital mattress #1 ea 08/10/22 amlodipine 5 mg tablet 5 mg PO DAILY #30 tabs 09/29/22 oxycodone 5 mg tablet 2.5 mg (1/2 x 5 mg) PO BID PRN 10/07/22 pain (scale score 7-10) #10 tabs cholecalciferol (vitamin D3) 50 50 mcg PO DAILY #28 caps 08/25/23 mcg (2,000 unit) capsule folic acid 1 mg tablet 1 mg PO DAILY #28 tabs 10/08/22 sertraline 25 mg tablet (Zoloft) 25 mg PO DAILY #30 tabs 10/08/22 simvastatin 20 mg tablet 20 mg PO DAILY #28 tabs 10/08/22 Allergies Allergy/AdvReac Type Severity Reaction Status Date / Time shellfish derived Allergy Unknown itchy Verified 09/25/22 03:06 procaine [From Novocain] AdvReac Unknown makes Verified 09/25/22 03:06 patient itchy,puffy Review of Systems 2 Review of Systems: Constitutional : No Weight loss, No Fever, No Chills, ENT/Mouth : No Hearing loss, No Ear Pain, No Nasal Congestion, No Sinus Pain, No Hoarseness, No sore throat, No Rhinorrhea, No Swallowing Difficulty Cardiovascular : No Chest Pain, No SOB Respiratory : No Cough, No Dyspnea Gastrointestinal : No Nausea, No Vomiting, No Diarrhea, No abdominal Pain, No Hematochezia, No Melena Genitourinary : No Dysuria, No Urinary Frequency, No Hematuria, No Urinary Incontinence, Musculoskeletal : positive back pain Skin : No Skin Lesions, No rash Neuro : No Weakness, No Numbness, No Paresthesias, no loss of bowel or bladder incontinence, no saddle anesthesia All other systems reviewed and are negative [facility] Past Medical History Attestation statement: The following information was validated with the patient. Medical History Chronic hypoxemic respiratory failure Rash Constipation Impaired mobility and ADLs Pulmonary hypertension Chronic diastolic (congestive) heart failure Pancytopenia Congestive heart failure Persistent atrial fibrillation Pulmonary hypertension Nonrheumatic aortic valve stenosis CHF exacerbation Acute pyelonephritis Chronic anticoagulation Pneumonia (HFpEF) heart failure with preserved ejection fraction Sepsis Lumbar vertebral fracture CVA (cerebral vascular accident) TIA (transient ischemic attack) Uterine cancer Anxiety and depression Obesity (BMI 30-39.9) Rheumatoid arthritis Hypercholesterolemia Hypertension Atrial fibrillation Type 2 diabetes mellitus with hyperglycemia Surgical History Status post transcatheter aortic valve replacement History of transcatheter aortic valve replacement (TAVR) (~06/19/21) History of colonoscopy History of appendectomy History of right knee joint replacement History of left knee replacement S/P ANTONIO-BSO Family History Family History Father Diabetes CAD (coronary artery disease) Mother Diabetes Hypertension Perforated ulcer Sister Diabetes Social History Social History Household Members: Significant Other Housing: [facility] Housing Other:: lives with spouse Do you presently have visiting nurse or other home services: No Alcohol intake: never Patient Tobacco Use Status: Never used Tobacco Smoked in Last 30 Days: No e-Cigarette/Vaping Use: Never Used Second Hand Smoke Exposure: No Use of substances other than those prescribed or required for medical reasons: No Advance Directives: Yes Advance Directives on File: Yes Advance Directives Date on File: 09/03/21 service: No Current occupational status: retired 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 Oriented X3. No acute distress. Eyes: Pupils equal, round and reactive to light. ENT: Pharynx normal. Neck: Normal inspection. Neck supple. CVS: Normal heart rate and rhythm. Pulses normal. Respiratory: No respiratory distress. Breath sounds normal. Abdomen: Soft and nontender. Skin: Skin warm and dry. Normal skin color. Normal skin turgor. Extremities: No lower extremity edema. ttp mid thigh but no mass or deformity distal NV intact no ttp along the hip region Neuro: Oriented X 3. No motor deficit. No sensory deficit. Course Course Course Narrative: Patient placed in physician observation at 649am. The indication for observation is that the patient needs more time to see PT and CM for safe disposition. At this time the patient is well developed well nourished, lungs clear, CV RRR, abd nontender, neuro is intact. Medications Administered Discontinued Medications Generic Name Dose Route Start Last Admin Trade Name Nelson PRN Reason Stop Dose Admin Acetaminophen 650 mg 11/09/22 03:03 11/09/22 03:25 Acetaminophen 325 Mg Tablet PO 11/09/22 03:04 650 mg ONCE ONE Administration Medical Decision Making Medical Decision Making [facility] Narrative: 82 yo female with PMH of PAF was on afib and it seems her PCP wants her to resume after a recent fall, anxiety, depression, obesity, RA, HLD, HTN, anemia, DM, aortic stenosis here with c/o L leg pain from buttock after getting up with b/b incontinence no saddle anesthesia no trauma reported. At this time labs, xray of femur given ttp, US to rule out DVT possible PT. Differential Diagnosis Differential Diagnoses: The differential diagnosis associated with the presentation includes strain, sciatica, lyte abnormality, DVT Admission/Observation Consideration of admission/observation: Escalation of care including admission/observation considered possible observation for PT Lab Data [facility] Lab Attestation statement: I reviewed the patient's lab results. 11/09/22 03:29 11/09/22 03:29 Labs: Lab Results 11/09/22 Range/Units 03:29 WBC 7.7 (4.8-10.8) X10*3/uL RBC 3.50 L (4.20-5.50) X10*6/uL Hgb 9.7 L (12.0-16.0) g/dl Hct 31.7 L (37.0-47.0) % MCV 90.6 (80.0-98.0) fL MCH 27.7 (27.0-33.0) pg MCHC 30.6 L (31.0-35.0) g/dl RDW 16.8 H (11.0-16.0) % Plt Count 200 (160-400) X10*3/uL MPV 9.8 (9.4-12.3) fL Immature Gran % (Auto) 0.4 (0.0-0.4) % Neut % (Auto) 73.6 H (45-73) % Lymph % (Auto) 11.3 L (20-40) % Morrow % (Auto) 10.8 (2-11) % Eos % (Auto) 3.5 (0-4) % Baso % (Auto) 0.4 (0-2) % Lymph # (Auto) 0.9 L (1.2-4.9) X10*3/uL Morrow # (Auto) 0.8 (0.1-1.2) X10*3/uL Eos # (Auto) 0.3 (0.0-0.4) X10*3/uL Baso # (Auto) 0.0 (0.0-0.2) X10*3/uL Abs Immat Gran (auto) 0.03 (0.00-0.03) X10*3/uL Absolute Neuts (auto) 5.7 (2.0-8.3) x10*3/uL Absolute Nucleated RBC 0.000 (0.0-0.012) X10*3/uL Nucleated RBC % (auto) 0.0 (0.0-0.2) /100WBC Sodium 143 (135-145) mmol/L Potassium 3.3 D (3.3-5.1) mmol/L Chloride 106 (96-108) mmol/L Carbon Dioxide 25 (22-29) mmol/L Anion Gap 15 (12-20) BUN 19 H (9-16) mg/dL Creatinine 0.77 (0.5-1.4) mg/dL Estim Creat Clear Calc 52.1 Estimated GFR > 60 Random Glucose 201 H (60-115) mg/dL Calcium 9.0 (8.4-10.2) mg/dL Magnesium 1.9 (1.6-2.6) mg/dL Independent Interpretation I performed an independent interpretation of an: Plain X-Ray (no fracture) and Ultrasound (no DVT) Radiology Impression Discussion of test interpretation with radiology: I have reviewed the radiologist's reading. Independent Historian Clinical information obtained from an independent historian. History obtained from or confirmed by: EMS External Record Review External record reviewed: Inpatient record Discharge Plan Discharge Clinical Impression: Sciatica Qualifiers: Laterality: left Qualified Code(s): M54.32 - Sciatica, left side Patient Disposition: Still a Patient Prescriptions: No Action (DME) Hospital bed See Rx Instructions .Route .MEDSUPPLY Qty: 1 0RF Rx Instructions: As directed furosemide 40 mg tablet 40 mg PO DAILY Qty: 90 3RF metoprolol tartrate 25 mg tablet 12.5 mg PO BID 90 Days Qty: 90 2RF ([facility] See Rx Instructions .Route .MEDSUPPLY Qty: 1 0RF Rx Instructions: As directed sertraline [Zoloft] 25 mg tablet 25 mg PO DAILY Qty: 30 0RF folic acid 1 mg tablet 1 mg PO DAILY Qty: 28 0RF simvastatin 20 mg tablet 20 mg PO DAILY Qty: 28 0RF cholecalciferol (vitamin D3) 50 mcg (2,000 unit) capsule 50 mcg PO DAILY Qty: 28 0RF oxycodone 5 mg tablet 2.5 mg PO BID PRN (Reason: pain (scale score 7-10)) Qty: 10 0RF Rx Instructions: Partial Fill upon patient request. warfarin 1 mg tablet 3 mg PO WE@1800 Hold Instructions: hold for two weeks, consider resuming 10/16. needs PCP eval warfarin 1 mg tablet 2 mg PO SUMOTUTHFRSA@1800 Hold Instructions: hold for splenic hematoma Protocol: Dose Management Condition: Tuesday (Week One) Dose/Route: 2 mg Instruction: 2 x 1 mg tablets Condition: Tuesday Dose/Route: 2 mg Instruction: 2 x 1 mg tablets Condition: Tuesday Dose/Route: 2 mg Instruction: 2 x 1 mg tablets Condition: Tuesday Dose/Route: 3 mg Instruction: 3 x 1 mg tablets Condition: Dose/Route: 2 mg Instruction: 2 x 1 mg tablets Condition: Tuesday Dose/Route: 2 mg Instruction: 2 x 1 mg tablets Condition: Tuesday Dose/Route: 2 mg Instruction: 2 x 1 mg tablets Condition: Tuesday (Week Two) Dose/Route: 2 mg Instruction: 2 x 1 mg tablets Condition: Tuesday Dose/Route: 2 mg Instruction: 2 x 1 mg tablets Condition: Tuesday Dose/Route: 2 mg Instruction: 2 x 1 mg tablets Condition: Tuesday Dose/Route: 3 mg Instruction: 3 x 1 mg tablets Condition: Dose/Route: 2 mg Instruction: 2 x 1 mg tablets Condition: Tuesday Dose/Route: 2 mg Instruction: 2 x 1 mg tablets Condition: Tuesday Dose/Route: 2 mg Instruction: 2 x 1 mg tablets Protocol Text: Adjustment Start Date: Tuesday09/15/22 INR Value: 2.2 INR Date: 09/15/22 Recheck Date: 09/29/22 Additional Instructions: EAT A MIX OF FRUITS AND VEGETABLES Rx Instructions: or as directed amlodipine 5 mg Tablet 5 mg PO DAILY Qty: 30 0RF Protocol: Hold for SBP< HOLD for SBP < : 90 (DME) blood-glucose meter [OneTouch Ultra2 Meter] Kit See Rx Instructions .ROUTE .MEDSUPPLY Qty: 1 0RF Rx Instructions: As directed check the blood sugar once a day (DME) blood sugar diagnostic Strip See Rx Instructions .ROUTE .MEDSUPPLY Qty: 250 3RF Rx Instructions: Twice a day acetaminophen 500 mg capsule 1,000 mg PO Q6H PRN (Reason: Pain)
--- NOTE | 2022-11-09 06:22 | MHC.EDTECH ---
Ambulated with patient Per MD. Patient stated she walks with a walker at home. Tech went and got a [facility] walker to assist the patient, as well as a gait belt. Patient tolerated it well, No Complaints of being lite head or pain. But would stop every 15-30 steps to catch her breath. we walked from RM 14 to RM19, and back to her room.
--- NOTE | 2022-11-09 10:41 | PC.NURSE ---
patient linens changed, patient stood at the side of bed with walker. patient sat up and ate breakfast this morning
--- NOTE | 2022-11-09 12:15 | MHC.CM.ED ---
Addendum entered by Jane Hopkins 11/09/22 16:37: Received notification that patient is experiencing vomiting. More testing has been ordered. [facility] put on hold at this time. Patient's daughter Emily made aware via telephone. Emily will let her dad know. Original Note: Received case management consult early this morning. Patient came to the ER around 3:30am due to left leg/hip pain. Work up essentially negative. Physical therapy eval completed. Home services are recommended. Patient is well known to due to multiple ER visits. T/W attempted to meet with patient in regards to discharge planning. Nursing care currently being provided. Spoke with patient's stepdaughter, Emily, via telephone at [phone]. Emily was not aware that patient was in ER. Information provided about visit. Patient was at [facility] for STR and was discharged home at 11/04 with [facility]. Patient's daughter, Marisol, was involved in the discharge plan from [facility]. Emily is not able to assist transport patient home today because she is working 2 of her jobs today. Emily agreeable to S transport. Spoke with Marisol via telephone at [phone]. Marisol lives in [place]. She was not aware that her mother was brought to the emergency room. Work up and findings discussed. Marisol agreeable to patient being transferred home with resumption of [facility]. [facility] booked for 330pm. Attempted to notify Jesus Manuel via telephone at [phone]. Jesus Manuel is very hard of hearing. Was able to verify he understood that patient would be transported home around 330pm. [facility] made aware. Patient, Shree CARTY and Marianna CAMPUZANO aware. Continue to monitor for d/c needs.
--- NOTE | 2022-11-09 12:45 | PC.NURSE ---
PT WITH SUPERVISED TRANSFER TO BEDSIDE COMMODE. SHE WAS STEADY AND OFFERS NO COMPLAINTS, PLAN IS FOR TRANSFER HOME AROUND 1530.
--- NOTE | 2022-11-09 13:35 | PC.NURSE ---
patient sitting up in bed eating lunch, shows no signs of distress.
--- NOTE | 2022-11-09 15:33 | PC.NURSE ---
patient asked to use bedside commode, patient sat up and felt nauseas and sob, patient had incident of small amount of vomiting. Zofran sub lingual given to patient to try and subside nausea and vomiting.
[2022-11-09] MEDS: Ondansetron ODT 4 MG TAB.RAPDIS TRANSLINGU (15:53)
--- NOTE | 2022-11-09 15:53 | PC.NURSE ---
patient had second episode of vomiting, small amount of bile. provider aware, CT scan and new orders provded
[2022-11-09] MEDS: iohexoL 350 MG/ML 100 ML INFUS..BTL 85 ML IV (16:21)
[2022-11-09 16:27] LABS: Alanine Aminotransferase < 5 U/L (0-31); Albumin Level 3.3 g/dL (3.5-5.0); Alkaline Phosphatase 109 U/L (39-117); Aspartate Amino Transferase 14 U/L (5-31); Bilirubin Direct 0.3 mg/dL (0.0-0.5); Bilirubin Total 0.6 mg/dL (0.0-1.0); Lipase 16 U/L (8-78); Total Protein 7.7 g/dL (6.5-8.0)
[2022-11-09 17:34] LABS: COVID-19 Test Negative (Negative); IDNOW Serial# 08D9AD1C
--- NOTE | 2022-11-09 17:34 | PC.NURSE ---
patient resting in bed, states she took a nap. patient states she still has an upset stomach and is attempting to rest.
--- NOTE | 2022-11-09 17:42 | PC.NURSE ---
pt was napping, she states she still has abd pain. CT resulted, awaiting provider for disposition. no further vomiting. she continues to decline rehab placement vs discharge home.
== END 2022-11-09 21:43 | disposition home or self-care (01) ==
PROVIDERS: Physician Assistant; Emergency Provider Emergency Medicine; PCP Internal Medicine
DX: M54.32 Sciatica, left side (principal); R10.2 Pelvic and perineal pain; M79.605 Pain in left leg; R60.0 Localized edema; R26.81 Unsteadiness on feet; Z20.822 Contact with and (suspected) exposure to COVID-19; Z20.828 Contact with and (suspected) exposure to other viral communicable diseases; Z79.899 Other long term (current) drug therapy
CPT/HCPCS: 36415; 73552; 74177; 80048; 80076; 83690; 83735; 85025; 87635; 93971; 97162; 99284; Q9967

== ENCOUNTER → 2022-11-17 14:00 | Outpatient (BNVA) | payer MEDICARE, OTHER, SELFPAY | PROVIDERS: PCP Internal Medicine; Visit Provider Internal Medicine ==

== ENCOUNTER → 2022-11-25 12:03 | Outpatient (BNVA) | payer MEDICARE, OTHER, SELFPAY | PROVIDERS: PCP Internal Medicine; Visit Provider Internal Medicine ==

== ENCOUNTER → 2022-12-01 12:03 | Outpatient (BNVA) | payer MEDICARE, OTHER, SELFPAY | PROVIDERS: PCP Internal Medicine; Visit Provider Internal Medicine ==

== ENCOUNTER → 2022-12-08 10:02 | Outpatient (BNVA) | payer MEDICARE, OTHER, SELFPAY | PROVIDERS: PCP Internal Medicine; Visit Provider Internal Medicine | DX: Z79.01 Long term (current) use of anticoagulants (principal) ==

== ENCOUNTER → 2022-12-15 10:27 | Outpatient (BNVA) | payer MEDICARE, OTHER, SELFPAY | PROVIDERS: PCP Internal Medicine; Visit Provider Internal Medicine ==

== ENCOUNTER → 2022-12-29 12:00 | Outpatient (BNVA) | payer MEDICARE, OTHER, SELFPAY | PROVIDERS: PCP Internal Medicine; Visit Provider Internal Medicine ==

== ENCOUNTER 2023-01-25 05:07 | Emergency (ER) | payer MEDICARE, OTHER, SELFPAY ==
[2023-01-25 05:21] VITALS: BP 168/82; PULSE 67; O2SAT 98; BMI 26.8
[2023-01-25 05:27] VITALS: BP 168/67; PULSE 61; RESP 18; TEMP 36.6; O2SAT 96
--- NOTE | 2023-01-25 05:54 | PC.NURSE ---
Per EMS patient has pellet stove that went out overnight. Patient reports being very cold and having bilateral 6/10 foot pain radiating up to her knees burning in nature. Pt has +1 pitting edema to LLE, pedal pulses present, feet warm, no evidence of frostbite. Pt's VSS, normothermic. MD at bedside to assess patient, awaiting new orders at this time.
--- NOTE | 2023-01-25 06:20 | ED.GENADULT ---
HPI - General Adult General Chief complaint: Extremity Problem Stated complaint: Bilateral Leg coldness Time Seen by Provider: 01/25/23 05:23 Source: patient Mode of arrival: EMS Limitations: no limitations History of Present Illness HPI narrative: Patient with history of diabetes, AFib on Coumadin, anxiety comes here as her pellet stove and and she was feeling cold in her feet. When she arrived her legs were feeling fine . Patient . Feet just felt coldinside with burning sensations Related Data Home Medications Medication Instructions Recorded Confirmed acetaminophen 500 mg capsule 1,000 mg PO Q6H PRN Pain 09/15/22 11/25/22 warfarin 1 mg tablet 2 mg PO SUMOTUTHFRSA@1800 09/25/22 12/29/22 warfarin 1 mg tablet 3 mg PO WE@1800 09/25/22 12/29/22 Previous Rx's Medication Instructions Recorded blood sugar diagnostic #250 ea 07/29/21 blood-glucose meter (OneTouch #1 ea 07/29/21 Ultra2 Meter kit) Hospital bed #1 ea 09/16/21 metoprolol tartrate 25 mg tablet 12.5 mg (1/2 x 25 mg) PO BID 90 07/26/22 days #90 tabs hospital mattress #1 ea 08/10/22 oxycodone 5 mg tablet 2.5 mg (1/2 x 5 mg) PO BID PRN 10/07/22 pain (scale score 7-10) #10 tabs furosemide 40 mg tablet 40 mg PO BID 90 days #180 tabs 11/22/22 blood sugar diagnostic (OneTouch #100 ea 12/01/22 Ultra Test strips) blood-glucose meter #1 ea 12/01/22 lancets #100 ea 12/01/22 cholecalciferol (vitamin D3) 50 50 mcg PO DAILY #90 caps 12/08/22 mcg (2,000 unit) capsule folic acid 1 mg tablet 1 mg PO DAILY #90 tabs 12/08/22 sertraline 25 mg tablet (Zoloft) 25 mg PO DAILY #90 tabs 12/08/22 simvastatin 20 mg tablet 20 mg PO DAILY #90 tabs 12/08/22 Allergies Allergy/AdvReac Type Severity Reaction Status Date / Time shellfish derived Allergy Unknown itchy Verified 01/25/23 05:21 procaine [From Novocain] AdvReac Unknown makes Verified 01/25/23 05:21 patient itchy,puffy Review of Systems Review of Systems: Yes all other systems are reviewed and are negative [facility] Past Medical History Medical History Chronic hypoxemic respiratory failure Rash Constipation Impaired mobility and ADLs Pulmonary hypertension Chronic diastolic (congestive) heart failure Pancytopenia Congestive heart failure Persistent atrial fibrillation Pulmonary hypertension Nonrheumatic aortic valve stenosis CHF exacerbation Acute pyelonephritis Chronic anticoagulation Pneumonia (HFpEF) heart failure with preserved ejection fraction Sepsis Lumbar vertebral fracture CVA (cerebral vascular accident) TIA (transient ischemic attack) Uterine cancer Anxiety and depression Obesity (BMI 30-39.9) Rheumatoid arthritis Hypercholesterolemia Hypertension Atrial fibrillation Type 2 diabetes mellitus with hyperglycemia Surgical History Status post transcatheter aortic valve replacement History of transcatheter aortic valve replacement (TAVR) (~06/19/21) History of colonoscopy History of appendectomy History of right knee joint replacement History of left knee replacement S/P ANTONIO-BSO Family History Family History Father Diabetes CAD (coronary artery disease) Mother Diabetes Hypertension Perforated ulcer Sister Diabetes Social History Social History Household Members: Significant Other Housing: Residential Housing Other:: lives with spouse Do you presently have visiting nurse or other home services: No Alcohol intake: never Comment: 1:1 sitter Patient Tobacco Use Status: Never used Tobacco Smoked in Last 30 Days: No e-Cigarette/Vaping Use: Never Used Second Hand Smoke Exposure: No Use of substances other than those prescribed or required for medical reasons: No Advance Directives: Yes Advance Directives on File: Yes Advance Directives Date on File: 09/03/21 service: No Current occupational status: retired 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 Oriented X3. No acute distress. Eyes: PERRLA, No Nystagmus ENT: Pharynx normal. Oral Mucosa moist Neck: Normal inspection. Neck supple. CVS: Normal heart rate and rhythm. Pulses normal. Respiratory: No respiratory distress. Equal air entry bilateral, no wheezing/rales/rhonchi Abdomen: Soft and nontender. Bowel sounds are present, no mass palpable, no CVA tenderness Skin: Skin warm and dry. Normal skin color. Normal skin turgor Extremities: No lower extremity edema. No calf tenderness, neurovascular intact. Normal temperature to touch in lower extremities trace leg edema Neuro: Oriented X 3. No motor deficit. No sensory deficit.No cerebellar signs , cranial nerves II-XII intact Medical Decision Making Medical Decision Making [facility] Narrative: Patient's social issues does not want to go to rehab or skilled nursing will be able to take care of her heater today discharge patient back home Lab Data [facility] Lab Attestation statement: I reviewed the patient's lab results. Labs: Lab Results 01/25/23 Range/Units 06:29 POC Glucose 120 H (60-115) mg/dL Discharge Plan Discharge Clinical Impression: Cold extremities Patient Disposition: Home, Self-Care Instructions: Paresthesia (ED) Additional Instructions: Keep your feet warm, wear socks Taking medication as prescribed Keep your house warm Prescriptions: No Action (DME) Hospital bed See Rx Instructions .Route .MEDSUPPLY Qty: 1 0RF Rx Instructions: As directed metoprolol tartrate 25 mg tablet 12.5 mg PO BID 90 Days Qty: 90 2RF (DME) hospital mattress See Rx Instructions .Route .MEDSUPPLY Qty: 1 0RF Rx Instructions: As directed furosemide 40 mg tablet 40 mg PO BID 90 Days Qty: 180 3RF Rx Instructions: or as directed (DME) blood-glucose meter Kit See Rx Instructions .ROUTE .MEDSUPPLY Qty: 1 0RF Rx Instructions: As directed check the blood sugar once a day (DME) OneTouch Ultra Test Strip See Rx Instructions .ROUTE .MEDSUPPLY Qty: 100 3RF Rx Instructions: As directed check the blood sugar once a day (DME) lancets Misc See Rx Instructions .ROUTE .MEDSUPPLY Qty: 100 0RF Rx Instructions: As directed check the blood sugar once a day sertraline [Zoloft] 25 mg tablet 25 mg PO DAILY Qty: 90 0RF folic acid 1 mg tablet 1 mg PO DAILY Qty: 90 3RF cholecalciferol (vitamin D3) 50 mcg (2,000 unit) capsule 50 mcg PO DAILY Qty: 90 2RF simvastatin 20 mg tablet 20 mg PO DAILY Qty: 90 3RF oxycodone 5 mg tablet 2.5 mg PO BID PRN (Reason: pain (scale score 7-10)) Qty: 10 0RF Rx Instructions: Partial Fill upon patient request. warfarin 1 mg tablet 3 mg PO WE@1800 Hold Instructions: hold for two weeks, consider resuming 10/16. needs PCP eval Protocol: Dose Management Condition: Tuesday (Week One) Dose/Route: 2 mg Instruction: 2 x 1 mg tablets Condition: Tuesday Dose/Route: 2 mg Instruction: 2 x 1 mg tablets Condition: Tuesday Dose/Route: 2 mg Instruction: 2 x 1 mg tablets Condition: Tuesday Dose/Route: 2 mg Instruction: 2 x 1 mg tablets Condition: Dose/Route: 3 mg Instruction: 3 x 1 mg tablets Condition: Tuesday Dose/Route: 2 mg Instruction: 2 x 1 mg tablets Condition: Tuesday Dose/Route: 2 mg Instruction: 2 x 1 mg tablets Condition: Tuesday (Week Two) Dose/Route: 2 mg Instruction: 2 x 1 mg tablets Condition: Tuesday Dose/Route: 2 mg Instruction: 2 x 1 mg tablets Condition: Tuesday Dose/Route: 2 mg Instruction: 2 x 1 mg tablets Condition: Tuesday Dose/Route: 2 mg Instruction: 2 x 1 mg tablets Condition: Dose/Route: 3 mg Instruction: 3 x 1 mg tablets Condition: Tuesday Dose/Route: 2 mg Instruction: 2 x 1 mg tablets Condition: Tuesday Dose/Route: 2 mg Instruction: 2 x 1 mg tablets Protocol Text: Adjustment Start Date: Tuesday12/29/22 INR Value: 2.5 INR Date: 12/29/22 Recheck Date: 01/13/23 warfarin 1 mg tablet 2 mg PO SUMOTUTHFRSA@1800 Hold Instructions: hold for splenic hematoma Protocol: Dose Management Condition: Tuesday (Week One) Dose/Route: 2 mg Instruction: 2 x 1 mg tablets Condition: Tuesday Dose/Route: 2 mg Instruction: 2 x 1 mg tablets Condition: Tuesday Dose/Route: 2 mg Instruction: 2 x 1 mg tablets Condition: Tuesday Dose/Route: 2 mg Instruction: 2 x 1 mg tablets Condition: Dose/Route: 3 mg Instruction: 3 x 1 mg tablets Condition: Tuesday Dose/Route: 2 mg Instruction: 2 x 1 mg tablets Condition: Tuesday Dose/Route: 2 mg Instruction: 2 x 1 mg tablets Condition: Tuesday (Week Two) Dose/Route: 2 mg Instruction: 2 x 1 mg tablets Condition: Tuesday Dose/Route: 2 mg Instruction: 2 x 1 mg tablets Condition: Tuesday Dose/Route: 2 mg Instruction: 2 x 1 mg tablets Condition: Tuesday Dose/Route: 2 mg Instruction: 2 x 1 mg tablets Condition: Dose/Route: 3 mg Instruction: 3 x 1 mg tablets Condition: Tuesday Dose/Route: 2 mg Instruction: 2 x 1 mg tablets Condition: Tuesday Dose/Route: 2 mg Instruction: 2 x 1 mg tablets Protocol Text: Adjustment Start Date: Tuesday12/29/22 INR Value: 2.5 INR Date: 12/29/22 Recheck Date: 01/13/23 Rx Instructions: or as directed (DME) blood-glucose meter [OneTouch Ultra2 Meter] Kit See Rx Instructions .ROUTE .MEDSUPPLY Qty: 1 0RF Rx Instructions: As directed check the blood sugar once a day (DME) blood sugar diagnostic Strip See Rx Instructions .ROUTE .MEDSUPPLY Qty: 250 3RF Rx Instructions: Twice a day acetaminophen 500 mg capsule 1,000 mg PO Q6H PRN (Reason: Pain)
[2023-01-25 06:33] LABS: Glucose, Whole Blood 120 mg/dL (60-115)
--- NOTE | 2023-01-25 06:33 | PC.NURSE ---
[id number], patient given saltines and gingerale per MD/ patient request
[2023-01-25 09:53] VITALS: BP 134/77; PULSE 76; RESP 18; O2SAT 96
--- NOTE | 2023-01-25 09:54 | PC.NURSE ---
ate breakfast, incontinent of urine and cleaned and changed, skin wpd, alert, pleasant, assist x 1 to wheelchair and assist x 2 [address] with daughter
== END 2023-01-25 09:56 | disposition home or self-care (01) ==
PROVIDERS: Emergency Provider Internal Medicine
DX: R20.2 Paresthesia of skin (principal); I48.91 Unspecified atrial fibrillation; Z79.01 Long term (current) use of anticoagulants; Z79.899 Other long term (current) drug therapy
CPT/HCPCS: 82947; 99282; 99284

== ENCOUNTER 2023-05-05 17:52 | Inpatient (IN) | payer MEDICARE, OTHER, SELFPAY ==
--- NOTE | ~2023-05-05 | XR_ITS ---
EXAMINATION: XR CHEST CLINICAL INFORMATION: SOB COMPARISON: Chest 10/02/2022. CT chest 08/21/2021 TECHNIQUE: Frontal view of the chest was obtained. FINDINGS: The lungs are well-expanded and clear of acute pneumonic process. Heart size is enlarged with aortic valve prosthesis. There is a prominent right hilar density similar previous study more obvious on the present exam. No gross bony abnormality seen. XR/XR chest 1V IMPRESSION: 1. Prominent right hilar density similar to previous study. Prominent right pulmonary artery was seen on previous CT chest exam 08/21/2021. 2. No acute pneumonic process seen. 3. Mild cardiomegaly with aortic valve prosthesis in place.
--- NOTE | 2023-05-05 18:07 | ECG_ITS ---
Test Reason : SOB Blood Pressure : / mmHG Vent. Rate : 057 BPM Atrial Rate : 000 BPM P-R Int : 000 ms QRS Dur : 152 ms QT Int : 490 ms P-R-T Axes : 000 072 -30 degrees QTc Int : 476 ms Atrial fibrillation with slow ventricular response Right bundle branch block T wave abnormality, consider inferior ischemia Abnormal ECG When compared with ECG of 02-OCT-2022 17:55, No significant change was found Referred By: Moo Magaña Electronically Signed By:CARLOS NIX
--- NOTE | 2023-05-05 18:08 | ED.SOB ---
HPI - SOB/Dyspnea General Chief Complaint: Dyspnea Stated Complaint: Diff Breathinhg Time Seen by Provider: 05/05/23 17:58 Source: patient and EMS Mode of arrival: EMS Limitations: no limitations History of Present Illness HPI Narrative: 82-year-old female with history of CHF with preserved ejection fraction, chronic hypoxic respiratory failure on 2 L of supplemental oxygen p.r.n., AFib on Coumadin, anxiety, depression, CVA, hyperlipidemia, pulmonary hypertension, DM, s/p hysterectomy secondary to uterine CA. Came in by ambulance for evaluation of shortness of breath started since yesterday, dyspnea is mostly with exertion, patient did not sleep last night due to dyspnea normally sleeps on a recliner, with chronic swelling of lower extremities left more than right that patient noticed it is worsening over the past 2 days. takes daily Lasix 40 mg, and Coumadin for atrial fibrillation, and metoprolol. During transporting by EMS to the hospital patient had a mid chest pain with no radiation that resolved on arrival to the ED. Related Data Home Medications Medication Instructions Recorded Confirmed acetaminophen 500 mg capsule 1,000 mg PO Q6H PRN Pain 09/15/22 11/25/22 Previous Rx's Medication Instructions Recorded blood sugar diagnostic #250 ea 07/29/21 blood-glucose meter (OneTouch #1 ea 07/29/21 Ultra2 Meter kit) Hospital bed #1 ea 09/16/21 metoprolol tartrate 25 mg tablet 12.5 mg (1/2 x 25 mg) PO BID 90 07/26/22 days #90 tabs hospital mattress #1 ea 08/10/22 oxycodone 5 mg tablet 2.5 mg (1/2 x 5 mg) PO BID PRN 10/07/22 pain (scale score 7-10) #10 tabs furosemide 40 mg tablet 40 mg PO BID 90 days #180 tabs 11/22/22 blood sugar diagnostic (OneTouch #100 ea 12/01/22 Ultra Test strips) blood-glucose meter #1 ea 12/01/22 lancets #100 ea 12/01/22 cholecalciferol (vitamin D3) 50 50 mcg PO DAILY #90 caps 12/08/22 mcg (2,000 unit) capsule folic acid 1 mg tablet 1 mg PO DAILY #90 tabs 12/08/22 simvastatin 20 mg tablet 20 mg PO DAILY #90 tabs 12/08/22 warfarin 1 mg tablet 2 mg PO KYRATMANJUFRSA@1800 #100 tabs 02/11/23 warfarin 1 mg tablet 3 mg PO WE@1800 #60 tabs 02/11/23 sertraline 25 mg tablet (Zoloft) 25 mg PO DAILY #90 tabs 03/07/23 INR strips ACELIS #60 ea 03/11/23 prothrombin time test strips #48 ea 03/11/23 Allergies Allergy/AdvReac Type Severity Reaction Status Date / Time shellfish derived Allergy Unknown itchy Verified 05/05/23 18:21 procaine [From Novocain] AdvReac Unknown makes Verified 05/05/23 18:21 patient itchy,puffy Review of Systems Review of Systems: All other systems are reviewed and are negative Constitutional: Reports as per HPI and Reports no additional constitutional complaints Eyes: Reports as per HPI and Reports no additional eye complaints Reports system reviewed and no additional complaints, except as documented Cardiovascular: Reports as per HPI and Reports no additional cardiovascular complaints Respiratory: Reports as per HPI and Reports no additional respiratory complaints Gastrointestinal: Reports as per HPI and Reports no additional gastrointestinal complaints Genitourinary: Reports no additional female genitourinary complaints Musculoskeletal: Reports no additional musculoskeletal complaints Skin/Breast: Reports system reviewed and no additional complaints, except as docu Psychiatric: Reports no additional psychiatric complaints Endocrine: Reports no additional endocrine complaints Hematologic/Lymphatic: Reports no additional hematologic/lymphatic complaints Allergic/Immunologic: Reports no additional allergic/immunologic complaints Reports system reviewed and no additional complaints, except as documented and Reports Abnormal speech present [facility] Past Medical History Medical History Persistent atrial fibrillation Chronic hypoxemic respiratory failure Rash Constipation Impaired mobility and ADLs Pulmonary hypertension Chronic diastolic (congestive) heart failure Pancytopenia Congestive heart failure Pulmonary hypertension Nonrheumatic aortic valve stenosis CHF exacerbation Acute pyelonephritis Chronic anticoagulation Pneumonia (HFpEF) heart failure with preserved ejection fraction Sepsis Lumbar vertebral fracture CVA (cerebral vascular accident) TIA (transient ischemic attack) Uterine cancer Anxiety and depression Obesity (BMI 30-39.9) Rheumatoid arthritis Hypercholesterolemia Hypertension Atrial fibrillation Type 2 diabetes mellitus with hyperglycemia Surgical History Status post transcatheter aortic valve replacement History of transcatheter aortic valve replacement (TAVR) (~06/19/21) History of colonoscopy History of appendectomy History of right knee joint replacement History of left knee replacement S/P ANTONIO-BSO Family History Family History Father Diabetes CAD (coronary artery disease) Mother Diabetes Hypertension Perforated ulcer Sister Diabetes Social History Social History Household Members: Significant Other Housing: Shelter Housing Other:: lives with spouse Do you presently have visiting nurse or other home services: No Alcohol intake: never Comment: 1:1 sitter Patient Tobacco Use Status: Never used Tobacco Smoked in Last 30 Days: No e-Cigarette/Vaping Use: Never Used Second Hand Smoke Exposure: No Use of substances other than those prescribed or required for medical reasons: No Advance Directives: Yes Advance Directives on File: Yes Advance Directives Date on File: 09/03/21 service: No Current occupational status: retired 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 Current occupational exposures/hazards: No Cognitive needs: Yes (cane, walker) Hearing needs: No Vision needs: Yes (glasses) Physical Exam Vital Signs: Vital Signs: Last Vital Signs Temp 98.1 F 05/05/23 19:03 Pulse 60 05/05/23 19:03 Resp 20 05/05/23 19:03 BP 136/46 L 05/05/23 19:03 Pulse Ox 97 05/05/23 19:03 O2 Del Method Room Air 05/05/23 19:03 BMI result Body Mass Index 33.3 Vital signs have been reviewed and appear to be correct. Blood pressure elevated. Heart rate normal. Respiratory rate normal. Temperature normal. Oxygen saturation normal. Appearance: Alert. Oriented X3. No acute distress. Head: Normal external exam. Normocephalic. Atraumatic. No Do signs noted. No raccoon eyes noted Eyes: PERRLA. EOMI. Conjunctiva and sclera normal. Eyelids normal. ENT: TM's Normal. Pharynx normal. Uvula midline. Moist mucous membranes. No trismus noted. No drooling noted. No muffled voice noted. Neck: Normal inspection. Neck supple. FROM. No adenopathy. Thyroid Normal. No meningeal signs. No neck mass noted. CVS: Normal heart rate and rhythm. Heart sound normal. No murmurs noted. Pulses normal throughout. Respiratory: No respiratory distress. Painless inspiration. Breath sounds normal. Bilateral fine rales to both lung field, Chest nontender. No accessory muscle usage noted or decreased air movement noted. Abdomen: Soft and nontender. Bowel sounds normal in all 4 quadrants. No distention noted. No organomegaly noted. No visible injury noted. Back: No CVA tenderness. Full range of motion noted. Skin: Skin warm and dry. Normal skin color. Normal skin turgor. No rashes/lesions/lacerations noted. Extremities: +2 lower extremity edema. Extremities exhibit normal range of motion. Extremities nontender. Neuro: Oriented X 3. Cranial nerve exam: II-XII are grossly intact No motor deficit. No sensory deficit. Reflexes normal. Course Reevaluation(s) Reevaluation #1: Exertional dyspnea with PND, exam is consistent with congestive heart failure received Lasix/nitro in the ED with improvement of patient's symptoms. Will admit for further diuresis and cardiac monitoring. INR is subtherapeutic patient admitted to not taking her Coumadin tonight will give 2 mg p.o. in the ED. Time: 20:12 Medications Administered Discontinued Medications Generic Name Dose Route Start Last Admin Trade Name Freq PRN Reason Stop Dose Admin Furosemide 40 mg 05/05/23 18:07 05/05/23 18:41 Furosemide 40 Mg/4 Ml Vial IVPUSH 05/05/23 18:08 40 mg ONCE ONE Administration Protocol Nitroglycerin 0.5 inch 05/05/23 18:07 05/05/23 18:41 Nitroglycerin 2 % Oint 1 Gm Packet TRANSDERMA 05/05/23 18:08 0.5 inch ONCE ONE Administration Medical Decision Making Differential Diagnosis Differential Diagnoses: The differential diagnosis associated with the presentation includes (CHF, pneumonia, pleural effusion, pneumothorax, ACS, AFib with RVR, hypercoagulability, electrolyte derangement, severe anemia.) Admission/Observation Consideration of admission/observation: Escalation of care including admission/observation considered Consult Healthcare Provider Management of the patient was discussed with: Hospitalist (Dr. Pradhan) Lab Data MDM Lab Attestation statement: I reviewed the patient's lab results. 05/05/23 18:33 05/05/23 18:33 Labs: Lab Results 03/21/24 03/21/24 Range/Units 18:32 18:33 WBC 5.5 (4.8-10.8) X10*3/uL RBC 3.64 L (4.20-5.50) X10*6/uL Hgb 9.9 L (12.0-16.0) g/dl Hct 32.2 L (37.0-47.0) % MCV 88.5 (80.0-98.0) fL MCH 27.2 (27.0-33.0) pg MCHC 30.7 L (31.0-35.0) g/dl RDW 15.7 (11.0-16.0) % Plt Count 173 (160-400) X10*3/uL MPV 9.6 (9.4-12.3) fL Immature Gran % (Auto) 0.2 (0.0-0.4) % Neut % (Auto) 70.9 (45-73) % Lymph % (Auto) 17.2 L (20-40) % [place] % (Auto) 8.1 (2-11) % Eos % (Auto) 2.9 (0-4) % Baso % (Auto) 0.7 (0-2) % Lymph # (Auto) 1.0 L (1.2-4.9) X10*3/uL [place] # (Auto) 0.5 (0.1-1.2) X10*3/uL Eos # (Auto) 0.2 (0.0-0.4) X10*3/uL Baso # (Auto) 0.0 (0.0-0.2) X10*3/uL Abs Immat Gran (auto) 0.01 (0.00-0.03) X10*3/uL Absolute Neuts (auto) 3.9 (2.0-8.3) x10*3/uL Absolute Nucleated RBC 0.000 (0.0-0.012) X10*3/uL Nucleated RBC % (auto) 0.0 (0.0-0.2) /100WBC PT 18.1 H (11.1-13.3) SEC INR 1.5 H (0.9-1.1) APTT 31.4 (26.0-36.8) SEC Sodium 144 (135-145) mmol/L Potassium 3.4 (3.3-5.1) mmol/L Chloride 102 (96-108) mmol/L Carbon Dioxide 33 H (22-29) mmol/L Anion Gap 12 (12-20) BUN 24 H (9-16) mg/dL Creatinine 0.75 (0.5-1.4) mg/dL Estim Creat Clear Calc 52.2 Estimated GFR > 60 Random Glucose 165 H (60-115) mg/dL Calcium 9.1 (8.4-10.2) mg/dL Total Bilirubin 0.5 (0.0-1.0) mg/dL Direct Bilirubin 0.3 (0.0-0.5) mg/dL AST 10 (5-31) U/L ALT < 5 (0-31) U/L Alkaline Phosphatase 115 (39-117) U/L Troponin I High Sens 11.5 (<3.5-17.0) ng/L B-Natriuretic Peptide 306 H (<100) pg/mL Total Protein 7.5 (6.5-8.0) g/dL Albumin 3.0 L (3.5-5.0) g/dL Lipase 19 (8-78) U/L Influenza Type A (PCR) NEGATIVE (Negative) Influenza Type B (PCR) NEGATIVE (Negative) RSV RNA Qual (PCR) NEGATIVE (Negative) SARS-CoV-2 RNA (RT-PCR) NEGATIVE (Negative) Independent Interpretation I performed an independent interpretation of an: Plain X-Ray (Chest:1. Prominent right hilar density similar to previous study. Prominent right pulmonary artery was seen on previous CT chest exam 08/21/2021. 2. No acute pneumonic process seen. 3. Mild cardiomegaly with aortic valve prosthesis in place. ) Radiology Impression Discussion of test interpretation with radiology: I have reviewed the radiologist's reading. Chronic Conditions Patient?s care impacted by: Hypertension and Other (CHF, atrial fibrillation.) Discharge Plan Discharge Clinical Impression: Congestive heart failure, Subtherapeutic international normalized ratio (INR) Patient Disposition: Admitted As Inpatient
[2023-05-05 18:14] VITALS: BP 147/60; BP 159/68; PULSE 71; PULSE 83; RESP 21; TEMP 36.6; O2SAT 96; O2SAT 98; BMI 33.3
[2023-05-05 18:39] LABS: MANUAL DIFF FLAG NO
[2023-05-05 18:40] LABS: Basophils Percent Auto 0.7 % (0-2); Eosinophils Absolute Auto 0.2 X10*3/uL (0.0-0.4); Eosinophils Percent Auto 2.9 % (0-4); Hematocrit 32.2 % (37.0-47.0); Hemoglobin 9.9 g/dl (12.0-16.0); Imm Gran Abs Auto 0.01 X10*3/uL (0.00-0.03); Imm Gran Pct Auto 0.2 % (0.0-0.4); Lymphocytes Percent Auto 17.2 % (20-40); Mean Corpuscular HGB Conc 30.7 g/dl (31.0-35.0); Mean Corpuscular Hemoglobin 27.2 pg (27.0-33.0); Mean Corpuscular Volume 88.5 fL (80.0-98.0); Mean Platelet Volume 9.6 fL (9.4-12.3); Monocytes Absolute Auto 0.5 X10*3/uL (0.1-1.2); Monocytes Percent Auto 8.1 % (2-11); Neutrophils Absolute Auto 3.9 x10*3/uL (2.0-8.3); Neutrophils Percent Auto 70.9 % (45-73); Platelet Count 173 X10*3/uL (160-400); Red Blood Count 3.64 X10*6/uL (4.20-5.50); Red Cell Distribution Width 15.7 % (11.0-16.0); White Blood Count 5.5 X10*3/uL (4.8-10.8)
[2023-05-05] MEDS: Furosemide 40 MG/4 ML VIAL IVPUSH (18:41)
[2023-05-05] MEDS: Nitroglycerin 2 % Oint 1 GM Packet 0.5 INCH TRANSDERMA (18:41)
[2023-05-05 18:52] LABS: Partial Thromboplastin Time 31.4 SEC (26.0-36.8)
[2023-05-05 18:55] LABS: Alanine Aminotransferase < 5 U/L (0-31); Alkaline Phosphatase 115 U/L (39-117); Anion Gap 12 (12-20); Aspartate Amino Transferase 10 U/L (5-31); Bilirubin Direct 0.3 mg/dL (0.0-0.5); Bilirubin Total 0.5 mg/dL (0.0-1.0); Blood Urea Nitrogen 24 mg/dL (9-16); Calcium 9.1 mg/dL (8.4-10.2); Carbon Dioxide 33 mmol/L (22-29); Chloride 102 mmol/L (96-108); Creatinine Clr Calc Pharmacy 52.2; Estimated Glomerular Filt Rate > 60; Glucose Random 165 mg/dL (60-115); Lipase 19 U/L (8-78); Potassium 3.4 mmol/L (3.3-5.1); Sodium 144 mmol/L (135-145); Total Protein 7.5 g/dL (6.5-8.0)
[2023-05-05 19:00] LABS: B Type Natriuretic Peptide 306 pg/mL (<100)
[2023-05-05 19:01] LABS: Troponin-I High Sensitivity 11.5 ng/L (<3.5-17.0)
[2023-05-05 19:03] VITALS: BP 136/46; PULSE 60; RESP 20; TEMP 36.7; O2SAT 97
--- NOTE | 2023-05-05 19:05 | PC.NURSE ---
this rn assumed care of pt. pt resting in stretcher, no acute distress noted. vss. pt sating 96% room air. pt normal sinus on tele 65-68bpm. pt lung sounds clear bilaterally. denies SOB and chest pain.
[2023-05-05 19:16] LABS: Influenza A PCR NEGATIVE (Negative); Influenza B PCR NEGATIVE (Negative); Resp Syncy Virus RNA Qual PCR NEGATIVE (Negative); SARS COV2 PCR INHOUSE NEGATIVE (Negative)
[2023-05-05 20:26] LABS: INTERNATIONAL NORM RATIO 1.5 (0.9-1.1); Prothrombin Time 18.1 SEC (11.1-13.3)
[2023-05-05 20:46] VITALS: BP 125/48; PULSE 71; RESP 17; TEMP 36.9; O2SAT 95
--- NOTE | 2023-05-05 20:57 | PHA.MEDREC ---
Pharmacy Consult ? Medication Reconciliation Pharmacy has completed the medication reconciliation. Patient reported medications. Reports the pee pill she takes three time a day. Report doctor took her off sertraline, but then told her she could take it again. Denise Lyons, PharmD
--- NOTE | 2023-05-05 21:32 | PM.IMHP ---
History of Present Illness Date of Service: 05/05/23 Attending physician on admission: Fallon Almeida Chief Complaint: SOB, HAWKINS Pt is an 83-year-old female with a PMH significant for?HFpEF, chronic hypoxic respiratory failure on prn home O2, pulmonary hypotension, persistent AFib on Coumadin, hx of CVA, aortic valve replacement, HLD, RA, ljp-ogajyzl-nauynzxko type 2 diabetes, hx of uterine cancer s/p total hysterectomy, and anxiety and depression who presents to the ED for evaluation of sudden onset SOB and left-sided chest pain. 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 She sleeps in a recliner and last night found she could not sleep or get comfortable. Today patient was talking to a friend and reported suddenly experiencing shortness of breath and difficulty speaking. Denies HAWKINS. At the same time also had left-sided, non radiating sharp chest pain/pressure that lasted approximately 1-1/2 hours. called EMT who brought her to ED for further evaluation. Patient reports still experiencing shortness of breath. Chronic cough approximately baseline. Has chronic lower leg edema with left leg always greater than right; reports increased swelling in left lower ankle and foot that she noticed today. Denies fever, chills, nausea, vomiting, abdominal pain. In the ED pt was tachypneic up to 21, with slightly soft BP of 125/48. Labs were significant for BUN 24, albumin 3.0, and BNP elevated at 306. Leukocytosis. Stable normocytic anemia 9.9/32.2. No significant electrolyte abnormalities. Initial troponin 11.5. Tested negative for influenza, RSV, COVID. CXR showed prominent right hilar density, similar to previous. Mild cardiomegaly with no acute pneumonic process seen. EKG demonstrated AFib with slow ventricular response, RBBB and T-wave inversions in inferior leads, similar to previous. Pt was treated with furosemide 40 mg IV and nitroglycerin transdermal patch. Pt will be admitted to the hospital under observation for treatment and further evaluation of SOB possibly secondary to acute CHF exacerbation. Review of Systems Review of Systems: SOB, difficulty breathing Increasing left lower leg edema Left-sided chest pain/pressure No fever, chills, N/V/D, abd pain [facility] Medical History Persistent atrial fibrillation Chronic hypoxemic respiratory failure Rash Constipation Impaired mobility and ADLs Pulmonary hypertension Chronic diastolic (congestive) heart failure Pancytopenia Congestive heart failure Pulmonary hypertension Nonrheumatic aortic valve stenosis CHF exacerbation Acute pyelonephritis Chronic anticoagulation Pneumonia (HFpEF) heart failure with preserved ejection fraction Sepsis Lumbar vertebral fracture CVA (cerebral vascular accident) TIA (transient ischemic attack) Uterine cancer Anxiety and depression Obesity (BMI 30-39.9) Rheumatoid arthritis Hypercholesterolemia Hypertension Atrial fibrillation Type 2 diabetes mellitus with hyperglycemia Family History Father Diabetes CAD (coronary artery disease) Mother Diabetes Hypertension Perforated ulcer Sister Diabetes Surgical History Status post transcatheter aortic valve replacement History of transcatheter aortic valve replacement (TAVR) (~06/19/21) History of colonoscopy History of appendectomy History of right knee joint replacement History of left knee replacement S/P ANTONIO-BSO Social History Household Members: Significant Other Housing: Skilled Nursing Housing Other:: lives with spouse Do you presently have visiting nurse or other home services: No Alcohol intake: never Comment: 1:1 sitter Patient Tobacco Use Status: Never used Tobacco Smoked in Last 30 Days: No e-Cigarette/Vaping Use: Never Used Second Hand Smoke Exposure: No Use of substances other than those prescribed or required for medical reasons: No Advance Directives: Yes Advance Directives on File: Yes Advance Directives Date on File: 09/03/21 service: No Current occupational status: retired 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[employer], [employer] Current occupational exposures/hazards: No Cognitive needs: Yes (cane, walker) Hearing needs: No Vision needs: Yes (glasses) Meds Allergies Allergy/AdvReac Type Severity Reaction Status Date / Time shellfish derived Allergy Unknown itchy Verified 05/05/23 18:21 procaine [From Novocain] AdvReac Unknown makes Verified 05/05/23 18:21 patient itchy,puffy Home Medications Medication Instructions Recorded Confirmed Last Taken Type acetaminophen 500 mg capsule 500 mg PO Q6H PRN Pain 09/15/22 05/05/23 09/23/22 History acetaminophen 500 mg tablet 500 mg PO BEDTIME 05/05/23 05/05/23 Unknown History cholecalciferol (vitamin D3) 125 125 mcg PO PICKARD 05/05/23 05/05/23 Unknown History mcg (5,000 unit) tablet furosemide 40 mg tablet 40 mg PO TID 05/05/23 05/05/23 Unknown History warfarin 1 mg tablet 2 mg PO DAILY@1800 05/05/23 05/05/23 Unknown History Physical Exam Vital Signs and Narrative: Vital Signs: Last Vital Signs Temp 98.4 F 05/05/23 20:46 Pulse 71 05/05/23 20:46 Resp 17 05/05/23 20:46 BP 125/48 L 05/05/23 20:46 Pulse Ox 95 05/05/23 20:46 O2 Del Method Room Air 05/05/23 20:46 BMI result Body Mass Index 33.3 Constitutional: Alert, in no acute distress. Mental Status: Oriented to person, place and time. Eyes: Pupils are equal, round, and reactive to light. Ear, Nose, and Throat: Oropharynx clear, mucous membranes moist. Ears and nose without deformities. Trachea midline. Respiratory: Clear to auscultation bilaterally. No wheezing, rales, or rhonchi. Speaking in full sentences though occasionally pausing in between. Some increased work of breathing. Cardiovascular: Irregularly irregular rhythm. Gastrointestinal: Abdomen soft, non-tender, non-distended. Normal bowel sounds. Neurologic: Cranial nerves II-XII are grossly intact bilaterally. No focal neurological deficits. Moves all extremities spontaneously. Skin: Warm, dry. Musculoskeletal: No cyanosis or clubbing. Extremities: 1+ pitting right lower leg edema. 2+ pitting left lower leg edema. Psychiatric: Normal mood and affect. Results Labs 05/05/23 18:33 05/05/23 18:33 Labs: Laboratory Results - last 24 hr 05/05/23 05/05/23 18:32 18:33 MCV 88.5 MCH 27.2 MCHC 30.7 L RDW 15.7 Plt Count 173 MPV 9.6 Immature Gran % (Auto) 0.2 Neut % (Auto) 70.9 Lymph % (Auto) 17.2 L [place] % (Auto) 8.1 Eos % (Auto) 2.9 Baso % (Auto) 0.7 Lymph # (Auto) 1.0 L [place] # (Auto) 0.5 Eos # (Auto) 0.2 Baso # (Auto) 0.0 Abs Immat Gran (auto) 0.01 Absolute Neuts (auto) 3.9 Absolute Nucleated RBC 0.000 Nucleated RBC % (auto) 0.0 PT 18.1 H INR 1.5 H APTT 31.4 Anion Gap 12 Estim Creat Clear Calc 52.2 Estimated GFR > 60 Random Glucose 165 H Calcium 9.1 Total Bilirubin 0.5 Direct Bilirubin 0.3 AST 10 ALT < 5 Alkaline Phosphatase 115 Troponin I High Sens 11.5 B-Natriuretic Peptide 306 H Total Protein 7.5 Albumin 3.0 L Lipase 19 Influenza Type A (PCR) NEGATIVE Influenza Type B (PCR) NEGATIVE RSV RNA Qual (PCR) NEGATIVE SARS-CoV-2 RNA (RT-PCR) NEGATIVE Imaging Radiologist's Impressions: Impressions Chest X-Ray 05/05/23 18:26 IMPRESSION: 1. Prominent right hilar density similar to previous study. Prominent right pulmonary artery was seen on previous CT chest exam 08/21/2021. 2. No acute pneumonic process seen. 3. Mild cardiomegaly with aortic valve prosthesis in place. Assessment and Plan (1) Shortness of breath: Status: Acute Plan Pt is an 83-year-old female with a PMH significant for?HFpEF, chronic hypoxic respiratory failure on prn home O2, pulmonary hypotension, persistent AFib on Coumadin, hx of CVA, aortic valve replacement, HLD, RA, bcp-pubdmyf-hwchhcluc type 2 diabetes, hx of uterine cancer s/p total hysterectomy, and anxiety and depression who presents to the ED for evaluation of sudden onset SOB and left-sided chest pain. Pt will be admitted to the hospital under observation for treatment and further evaluation of SOB possibly secondary to acute CHF exacerbation. Shortness of breath Patient with sudden SOB, difficulty breathing, and increased lower leg edema particularly in left ankle/foot since this morning Possibly secondary to HFpEF exacerbation, though BNP around baseline and no CHF evidence on X-Ray Pt given Lasix in ED Will treat with Lasix 40mg IV bid Echocardiogram Will get D-dimer Follow lytes, MG, I/O Daily weights, low-salt diet Monitor on telemetry Chest pain/pressure Pt experienced SOB and shartp, non-radiating left-sided chest pressure for 1 1/2 hours Initial tropoin 11.5, EKG without significant ischemic changes from prior Will check second troponin Monitor on telemetry Persistent AFib INR subtherapeutic at 1.5 Continue Coumadin, monitor INR Continue metoprolol HLD Continue statin Anxiety/depression Continue home meds DNR/DNI, verified with pt Attending:?Dr. Pradhan DVT Prophylaxis: On Coumadin Patient will be admitted to the hospital under observation for treatment and further evaluation of shortness of breath and difficulty breathing possibly secondary to CHF exacerbation. Quality Stroke Does the patient have a stroke diagnosis?: No VTE Prior VTE?: No VTE Risk Level:: Medical - moderate - high VTE Device Contraindication: Treatment Not Indicated VTE Drug Contraindication: N/A - Med Ordered
[2023-05-05] MEDS: Warfarin Sodium 2 MG TABLET PO (21:47)
--- NOTE | 2023-05-05 21:52 | PC.NURSE ---
Pt medicated per mar, pt tolerated well with water.
[2023-05-05 23:41] LABS: D Dimer High Sensitivity 403 NG/ML
[2023-05-05 23:59] LABS: Troponin-I High Sensitivity 13.5 ng/L (<3.5-17.0)
[2023-05-06] VITALS (8 sets, daily range): BP systolic 127–166; BP diastolic 53–88; PULSE 59–78; RESP 14–21; TEMP 36.8; O2SAT 88–99
[2023-05-06] MEDS: 0.9 % Sodium Chloride Flush 3 ML SYRINGE IVFLUSH ×4 (00:59→20:03)
--- NOTE | 2023-05-06 01:05 | PC.NURSE ---
pt given blankets per request at this time, respirations even and unlabored. no acute distress noted.
[2023-05-06] MEDS: Acetaminophen 325 MG TABLET 650 MG PO ×3 (03:27→18:35)
--- NOTE | 2023-05-06 03:34 | PC.NURSE ---
pt medicated per mar for 3/10 body pain, tolerated well with water.
--- NOTE | 2023-05-06 05:30 | PC.NURSE ---
pt placed in hospital bed for comfort at this time. pt reports pain is better.
[2023-05-06 05:52] LABS: INTERNATIONAL NORM RATIO 1.5 (0.9-1.1); Prothrombin Time 18.5 SEC (11.1-13.3)
[2023-05-06 05:55] LABS: Anion Gap 14 (12-20); Blood Urea Nitrogen 21 mg/dL (9-16); Calcium 8.9 mg/dL (8.4-10.2); Carbon Dioxide 30 mmol/L (22-29); Chloride 102 mmol/L (96-108); Creatinine Clr Calc Pharmacy 50.8; Estimated Glomerular Filt Rate > 60; Glucose Random 108 mg/dL (60-115); Potassium 3.5 mmol/L (3.3-5.1); Sodium 142 mmol/L (135-145)
--- NOTE | 2023-05-06 07:00 | CA_ITS ---
Transthoracic Echocardiogram Patient (Last, First, Middle): Yakelin Abreu E Gender: Female Date of : 1940 Age: 83 Procedure Date: 05/06/2023 Procedure Type: Transthoracic Echocardiogram Location: ER Height: 152.4 cm Weight: 77.11 kg BSA: 1.74 m2 Heart Rate: bpm BP: 137 / 56 mmHg Technical Solution Architect: Referring MD: Cristofer CAMPUZANO Symptoms: SOB, ?CHF exacerbation Study Quality: Fair ECG Rhythm: Atrial Fibrillation Conclusions: - The left ventricular systolic function is normal. The calculated ejection fraction is 66% by biplane method. - The left atrium is severely dilated. - A bioprosthetic aortic valve is present. The prosthetic aortic valve appears to be functioning normally. - There is severe mitral annular calcification. Suspect some degree of calcific mitral stenosis. Findings Left Ventricle Normal left ventricular cavity size. There is severely increased left ventricular wall thickness. The left ventricular systolic function is normal. The calculated ejection fraction is 66% by biplane method. There is no evidence of regional wall motion abnormalities. Diastolic function is indeterminate on the basis of available data. Right Ventricle Normal right ventricular cavity size. There is low normal right ventricular systolic function. Atria The left atrium is severely dilated. The right atrium is moderately dilated. Aortic Valve A bioprosthetic aortic valve is present. The prosthetic aortic valve appears to be functioning normally. Trace para-valvular regurgitation. Mitral Valve There is severe mitral annular calcification. There is no mitral valve regurgitation. Suspect some degree of calcific mitral stenosis. Pulmonic Valve The pulmonic valve is likely normal. Tricuspid Valve There is mild tricuspid valve regurgitation. There is no evidence of pulmonary hypertension. Great Vessels The asc aorta is normal in size. Venous The inferior vena cava is mildly dilated and collapses greater than 50% with inspiration. Pericardium/Pleural There is a trivial pericardial effusion. Prior Study Comparison Changes noted compared to prior study dated: 09/28/2022. Improved RVSP. Measurements 2D Linear Measurements IVSd: 1.56 0.6-0.9/0.6-1.0 cm LVIDd: 4.19 3.9-5.3/4.2-5.9 cm LVIDd Index: 2.41 2.4-3.2/2.2-3.1 cm/m2 LVIDs: 2.52 2.0-3.6 cm LVPWd: 1.58 0.7-1.1 cm LA Diam: 5.50 2.7-3.8/3.0-4.0 cm LAIDs Index: 3.16 1.5-2.3 cm/m2 LV Mass: 333.08 67-162/88-224 g LV Mass Index: 191.43 43-95/49-115 g/m2 LVOT Diam: 2.10 3.0+(-)1.3 cm 2D Systolic Function EF 4C: 72.90 >55% EF 2C: 60.80 >55% EF BiP: 66.20 >55% Mitral Valve MV VTI: 0.50 MV Pk Samson: 1.88 MV Mn Samson: 0.81 MV Pk Grad: 14.00 MV Mn Grad: 4.00 MV Pk E: 1.50 MV Decel Time: 323.00 E'Lateral: 8.81 E'Medial: 5.87 E/E' Med: 25.60 E/E' Lat: 17.00 PHT: 95.00 MVA PHT: 2.32 MVA Continuity: 1.44 Decel Frontier: 4.65 Aortic Valve AoV Pk Samson: 2.50 AoV Mn Samson: 1.72 AoV VTI: 0.47 AoV Pk Grad: 25.00 Aov Mn Grad: 14.00 HALI Cont.VTI: 1.54 LVOT LVOT Pk Samson: 0.91 LVOT Mn Samson: 0.60 LVOT VTI: 0.21 LVOT Pk Grad: 3.00 LVOT Mn Grad: 2.00 LVOT Diam: 2.10 LVOT Area: 3.46 Diastolic Function MV Pk E: 1.50 E'Medial: 5.87 E/E' Med: 25.60 E' Laterial: 8.81 E/E' Lat: 17.00 Right Ventricle TAPSE (mm): 19.10 TVS' Samson: 9.03 Tricuspid Valve TR Pk Samson: 2.79 TR Pk Grad: 31.00 Great Vessels Aorta Sinus of Valsalva: 3.10 2.0-3.5 cm Ao Asc: 3.70 2.1-3.4 cm Pulmonary Valve PV Pk Samson: 0.91 Peak PV Grad: 3.00 Updated in Other Vendor System with Status of Final Alfie Jarvis MD electronically signed on 05/07/2023 11:51:35 AM with status of Final
[2023-05-06] MEDS: Sertraline HCL 25 MG TABLET PO (09:14)
[2023-05-06] MEDS: Furosemide 40 MG/4 ML VIAL IVPUSH ×2 (09:14→18:36)
[2023-05-06] MEDS: Atorvastatin Calcium 10 MG TABLET PO (09:14)
[2023-05-06] MEDS: Metoprolol Tartrate 12.5 MG HALFTAB PO ×2 (09:14→20:01)
[2023-05-06] MEDS: ondansetron HCL 4 MG/2 ML VIAL IVPUSH (09:15)
--- NOTE | 2023-05-06 16:41 | HO.PM.IMPN ---
Subjective Subjective Date of Service: 05/06/23 Interval History: chf excerebation Review of Systems Patient still short of breath with minimal exertion, has leg edema, has some nausea. Finish Physical Exam Vital Signs: Vital Signs: Last Vital Signs Temp 98.3 F 05/06/23 06:20 Pulse 59 05/06/23 11:32 Resp 19 05/06/23 11:32 BP 143/54 H 05/06/23 11:32 Pulse Ox 92 05/06/23 11:32 O2 Del Method Room Air 05/06/23 11:32 BMI result Body Mass Index 33.3 Appearance: Alert.? Oriented X3.? sob cvs: rrr, [id number] . res: clear to auscultation ,no rhonchii or wheezing abd: no rebound or guarding ,nt, bs present. ext pulses present , no cyanosis ,2+ edema neuro: axo3 , nonfocal. Objective Data Active Medications Acetaminophen (Acetaminophen 325 Mg Tablet) 650 mg PO Q6H PRN PRN Reason: Pain, Mild (Pain Scale 1-3) Last Admin: 05/06/23 11:32 Dose: 650 mg Documented By: MAG Atorvastatin Calcium (Atorvastatin Calcium 10 Mg Tablet) 10 mg PO DAILY [facility] Last Admin: 05/06/23 09:14 Dose: 10 mg Documented By: MAG Benzonatate (Benzonatate 100 Mg Capsule) 100 mg PO TID PRN PRN Reason: Cough Furosemide (Furosemide 40 Mg/4 Ml Vial) 40 mg IVPUSH BID@0900,1800 [facility]; Protocol Last Admin: 05/06/23 09:14 Dose: 40 mg Documented By: MAG Guaifenesin (Guaifenesin 100 Mg/5 Ml Liquid) 5 ml PO Q4H [facility] Last Admin: 05/06/23 15:46 Dose: Not Given Documented By: MAG Non-Admin Reason: Patient Refused Melatonin (Melatonin 3 Mg Tablet) 6 mg PO BEDTIME PRN PRN Reason: Insomnia Metoprolol Tartrate (Metoprolol Tartrate 12.5 Mg Halftab) 12.5 mg PO BID [facility]; Protocol Last Admin: 05/06/23 09:14 Dose: 12.5 mg Documented By: MAG Ondansetron HCl (Ondansetron Hcl 4 Mg/2 Ml Vial) 4 mg IVPUSH Q8H PRN PRN Reason: Nausea and Vomiting Sertraline HCl (Sertraline Hcl 25 Mg Tablet) 25 mg PO DAILY [facility] Last Admin: 05/06/23 09:14 Dose: 25 mg Documented By: MAG Sodium Chloride (0.9 % Sodium Chloride Flush 3 Ml Syringe) 3 ml IVFLUSH QSHIFT [facility] Last Admin: 05/06/23 09:15 Dose: 3 ml Documented By: MAG Warfarin Sodium (Warfarin Sodium 2 Mg Tablet) 2 mg PO DAILY@1800 [facility] Labs 05/05/23 18:33 05/06/23 05:18 Labs: Laboratory Results - last 24 hr 05/05/23 05/05/23 05/05/23 18:32 18:33 23:26 MCV 88.5 MCH 27.2 MCHC 30.7 L RDW 15.7 Plt Count 173 MPV 9.6 Immature Gran % (Auto) 0.2 Neut % (Auto) 70.9 Lymph % (Auto) 17.2 L [place] % (Auto) 8.1 Eos % (Auto) 2.9 Baso % (Auto) 0.7 Lymph # (Auto) 1.0 L [place] # (Auto) 0.5 Eos # (Auto) 0.2 Baso # (Auto) 0.0 Abs Immat Gran (auto) 0.01 Absolute Neuts (auto) 3.9 Absolute Nucleated RBC 0.000 Nucleated RBC % (auto) 0.0 PT 18.1 H INR 1.5 H APTT 31.4 D-Dimer High Sensitivty 403 Anion Gap 12 Estim Creat Clear Calc 52.2 Estimated GFR > 60 Random Glucose 165 H Calcium 9.1 Total Bilirubin 0.5 Direct Bilirubin 0.3 AST 10 ALT < 5 Alkaline Phosphatase 115 Troponin I High Sens 11.5 13.5 B-Natriuretic Peptide 306 H Total Protein 7.5 Albumin 3.0 L Lipase 19 Influenza Type A (PCR) NEGATIVE Influenza Type B (PCR) NEGATIVE RSV RNA Qual (PCR) NEGATIVE SARS-CoV-2 RNA (RT-PCR) NEGATIVE 05/06/23 05:18 MCV MCH MCHC RDW Plt Count MPV Immature Gran % (Auto) Neut % (Auto) Lymph % (Auto) [place] % (Auto) Eos % (Auto) Baso % (Auto) Lymph # (Auto) [place] # (Auto) Eos # (Auto) Baso # (Auto) Abs Immat Gran (auto) Absolute Neuts (auto) Absolute Nucleated RBC Nucleated RBC % (auto) PT 18.5 H INR 1.5 H APTT D-Dimer High Sensitivty Anion Gap 14 Estim Creat Clear Calc 50.8 Estimated GFR > 60 Random Glucose 108 Calcium 8.9 Total Bilirubin Direct Bilirubin AST ALT Alkaline Phosphatase Troponin I High Sens B-Natriuretic Peptide Total Protein Albumin Lipase Influenza Type A (PCR) Influenza Type B (PCR) RSV RNA Qual (PCR) SARS-CoV-2 RNA (RT-PCR) Assessment and Plan (1) Shortness of breath: Status: Acute (2) Subtherapeutic international normalized ratio (INR): Status: Acute Plan 83-year-old female with a PMH significant for?HFpEF, chronic hypoxic respiratory failure on prn home O2, pulmonary hypotension, persistent AFib on Coumadin, hx of CVA, aortic valve replacement, HLD, RA, [id number] type 2 diabetes, hx of uterine cancer s/p total hysterectomy, and anxiety and depression who presents to the ED for evaluation of sudden onset SOB and left-sided chest pain. Pt will be admitted to the hospital under observation for treatment and further evaluation of SOB possibly secondary to acute CHF exacerbation. Possibly secondary to HFpEF exacerbation Patient with sudden SOB, difficulty breathing, and increased lower leg edema particularly in left ankle/foot since this morning BNP around baseline and no CHF evidence on X-Ray denies any chest pain trops neg Echocardiogram Follow lytes, MG, I/O neg 2.2 liter Daily weights, low-salt diet plan: Monitor on telemetry,continue iv lasix 40 mg bid Persistent AFib INR subtherapeutic at 1.5 Continue Coumadin,added additional 1 mg warfarin, monitor INR Continue metoprolol HLD Continue statin Anxiety/depression Continue home meds DNR/DNI, verified with pt DVT Prophylaxis: On Coumadin hospitalisation need for possible chf excerebatio-need iv diuresis , renal function/electrolytes as well as i/o monitering ,further evaluation of shortness of breath and difficulty breathing possibly secondary to CHF exacerbation Quality Stroke Does the patient have a stroke diagnosis?: No VTE Prior VTE?: No VTE Risk Level:: Medical - moderate - high VTE Device Contraindication: Treatment Not Indicated VTE Drug Contraindication: N/A - Med Ordered
[2023-05-06] MEDS: Omeprazole 20 MG CAPSULE.DR PO (18:35)
--- NOTE | 2023-05-06 18:39 | PC.NURSE ---
O2 NOTED TO BE AT 88% STARTED ON 2L NC
[2023-05-06] MEDS: Warfarin Sodium 1 MG TABLET PO (20:00)
[2023-05-06] MEDS: Warfarin Sodium 2 MG TABLET PO (20:01)
[2023-05-07] VITALS (8 sets, daily range): BP systolic 117–160; BP diastolic 37–72; PULSE 65–83; RESP 16–20; TEMP 36.2–36.9; O2SAT 91–95
[2023-05-07] MEDS: Acetaminophen 325 MG TABLET 650 MG PO ×2 (04:04→23:15)
[2023-05-07] MEDS: Omeprazole 20 MG CAPSULE.DR PO ×2 (04:04→17:09)
[2023-05-07 07:07] LABS: INTERNATIONAL NORM RATIO 1.6 (0.9-1.1); Prothrombin Time 19.4 SEC (11.1-13.3)
[2023-05-07 07:15] LABS: Anion Gap 16 (12-20); Blood Urea Nitrogen 20 mg/dL (9-16); Calcium 9.3 mg/dL (8.4-10.2); Carbon Dioxide 31 mmol/L (22-29); Chloride 99 mmol/L (96-108); Estimated Glomerular Filt Rate > 60; Glucose Random 111 mg/dL (60-115); Potassium 3.6 mmol/L (3.3-5.1); Sodium 142 mmol/L (135-145)
[2023-05-07] MEDS: Sertraline HCL 25 MG TABLET PO (10:00)
[2023-05-07] MEDS: Atorvastatin Calcium 10 MG TABLET PO (10:00)
[2023-05-07] MEDS: Metoprolol Tartrate 12.5 MG HALFTAB PO ×2 (10:00→21:09)
[2023-05-07] MEDS: Furosemide 40 MG/4 ML VIAL IVPUSH ×2 (10:00→17:10)
[2023-05-07] MEDS: 0.9 % Sodium Chloride Flush 3 ML SYRINGE IVFLUSH ×3 (10:00→21:10)
--- NOTE | 2023-05-07 12:22 | P.PNIM_ITS ---
Subjective Subjective Date of Service: 05/07/23 Interval History: chf execerbation Review of Systems sob with minimum excersion has 2+ leg swellin no fevers Physical Exam 2 Vital Signs: Vital Signs: Last Vital Signs Temp 97.2 F 05/07/23 11:49 Pulse 74 05/07/23 11:49 Resp 16 05/07/23 11:49 BP 129/64 05/07/23 11:49 Pulse Ox 95 05/07/23 11:49 O2 Del Method Room Air 05/07/23 11:49 O2 Flow Rate 2 05/07/23 00:00 BMI result Body Mass Index 33.3 Appearance: Alert.? Oriented X3.? sob cvs: rrr, [id number] . res: clear to auscultation ,no rhonchii or wheezing abd: no rebound or guarding ,nt, bs present. ext pulses present , no cyanosis ,2+ edema neuro: axo3 , nonfocal. Objective Data Active Medications Acetaminophen (Acetaminophen 325 Mg Tablet) 650 mg PO Q6H PRN PRN Reason: Pain, Mild (Pain Scale 1-3) Last Admin: 05/07/23 04:04 Dose: 650 mg Documented By: CARLOS ALBERTO Atorvastatin Calcium (Atorvastatin Calcium 10 Mg Tablet) 10 mg PO DAILY [facility] Last Admin: 05/07/23 10:00 Dose: 10 mg Documented By: DIALLO Benzonatate (Benzonatate 100 Mg Capsule) 100 mg PO TID PRN PRN Reason: Cough Furosemide (Furosemide 40 Mg/4 Ml Vial) 40 mg IVPUSH BID@0900,1800 [facility]; Protocol Last Admin: 05/07/23 10:00 Dose: 40 mg Documented By: DIALLO Guaifenesin (Guaifenesin 100 Mg/5 Ml Liquid) 5 ml PO Q4H [facility] Last Admin: 05/07/23 09:56 Dose: Not Given Documented By: DIALLO Non-Admin Reason: Patient Refused Melatonin (Melatonin 3 Mg Tablet) 6 mg PO BEDTIME PRN PRN Reason: Insomnia Metoprolol Tartrate (Metoprolol Tartrate 12.5 Mg Halftab) 12.5 mg PO BID [facility]; Protocol Last Admin: 05/07/23 10:00 Dose: 12.5 mg Documented By: DIALLO Omeprazole (Omeprazole 20 Mg Capsule.) 20 mg PO BID@0630,1630 [facility] Last Admin: 05/07/23 04:04 Dose: 20 mg Documented By: CARLOS ALBERTO Ondansetron HCl (Ondansetron Hcl 4 Mg/2 Ml Vial) 4 mg IVPUSH Q8H PRN PRN Reason: Nausea and Vomiting Sertraline HCl (Sertraline Hcl 25 Mg Tablet) 25 mg PO DAILY [facility] Last Admin: 05/07/23 10:00 Dose: 25 mg Documented By: DIALLO Sodium Chloride (0.9 % Sodium Chloride Flush 3 Ml Syringe) 3 ml IVFLUSH QSHIFT [facility] Last Admin: 05/07/23 10:00 Dose: 3 ml Documented By: DIALLO Warfarin Sodium (Warfarin Sodium 3 Mg Tablet) 3 mg PO DAILY@1800 [facility] Labs 05/05/23 18:33 05/07/23 06:18 Labs: Laboratory Results - last 24 hr 05/07/23 05/07/23 05/07/23 06:18 06:18 06:18 Hold Purple Top SEE NOTE PT 19.4 H Cancelled INR 1.6 H Cancelled Anion Gap Cancelled Estim Creat Clear Calc Estimated GFR Random Glucose Calcium 05/07/23 05/07/23 05/07/23 06:18 06:18 06:18 Hold Purple Top PT INR Anion Gap 16 Estim Creat Clear Calc Cancelled 49.0 Estimated GFR Cancelled > 60 Random Glucose Cancelled Calcium 05/07/23 05/07/23 06:18 06:18 Hold Purple Top PT INR Anion Gap Estim Creat Clear Calc Estimated GFR Random Glucose 111 Calcium Cancelled 9.3 Assessment and Plan (1) Shortness of breath: Status: Acute (2) Subtherapeutic international normalized ratio (INR): Status: Acute Plan 83-year-old female with a PMH significant for?HFpEF, chronic hypoxic respiratory failure on prn home O2, pulmonary hypotension, persistent AFib on Coumadin, hx of CVA, aortic valve replacement, HLD, RA, [id number] type 2 diabetes, hx of uterine cancer s/p total hysterectomy, and anxiety and depression who presents to the ED for evaluation of sudden onset SOB and left- sided chest pain. Pt will be admitted to the hospital under observation for treatment and further evaluation of SOB possibly secondary to acute CHF exacerbation. Possibly secondary to HFpEF exacerbation Patient with sudden SOB, difficulty breathing, and increased lower leg edema particularly in left ankle/foot since this morning BNP around baseline and no CHF evidence on X-Ray denies any chest pain trops neg Echocardiogram Follow lytes, MG, I/O neg 2.55 liter Daily weights, low-salt diet plan: Monitor on telemetry,continue iv lasix 40 mg bid Persistent AFib INR subtherapeutic at 1.6 adjusted Coumadin to 3 mg po daily,monitor INR Continue metoprolol HLD Continue statin Anxiety/depression Continue home meds DNR/DNI, verified with pt DVT Prophylaxis: On Coumadin hospitalisation need for possible chf excerebatio-need iv diuresis , renal function/electrolytes as well as i/o monitering ,further evaluation of shortness of breath and difficulty breathing possibly secondary to CHF exacerbation,also monitering for subtherapeutic inr. Quality Stroke Does the patient have a stroke diagnosis?: No VTE Prior VTE?: No VTE Risk Level:: Medical - moderate - high VTE Device Contraindication: Treatment Not Indicated VTE Drug Contraindication: N/A - Med Ordered
--- NOTE | 2023-05-07 15:05 | MHC.CM.PN ---
IMM 05/07/23, Pt lives with her , Cody, who is her HCP and this in on file. She has services in the home from [facility] which include M[employer] and [employer], for both herself and her . She is active with [facility]. PCP confirmed: Po. She uses a walker, and has a shower bench at home for medical equipment. Info to be sent to [facility] to follow and assist with DC plan. Pt will need assistance with transportation home.
[2023-05-07 16:22] LABS: Appearance Urine Turbid; Color Urine Yellow; Glucose Urine UA Negative (Negative); Leukocyte Esterase Urine Moderate (2+) (Negative); Nitrite Urine Negative (Negative); Specific Gravity - Urine 1.015 (1.005-1.025); UMIC TRIGGER UACC YES; Urine Blood Negative (Negative); Urine Ketones Negative (Negative); Urine Protein Trace mg/dL (Neg-Trace)
[2023-05-07 16:40] LABS: Bacteria Urine 4+ (None Seen); Other Crystals Urine Present; RBC Urine 0-2 /HPF (0-2); UACC Culture Trigger YES
[2023-05-07] MEDS: Warfarin Sodium 3 MG TABLET PO (17:09)
[2023-05-08 03:29] VITALS: BP 116/55; PULSE 78; RESP 18; TEMP 36.4; O2SAT 92
[2023-05-08] MEDS: Omeprazole 20 MG CAPSULE.DR PO ×2 (06:05→16:39)
[2023-05-08 06:32] LABS: INTERNATIONAL NORM RATIO 1.8 (0.9-1.1); Prothrombin Time 22.3 SEC (11.1-13.3)
[2023-05-08 06:56] LABS: Anion Gap 10 (12-20); Blood Urea Nitrogen 29 mg/dL (9-16); Calcium 9.2 mg/dL (8.4-10.2); Carbon Dioxide 35 mmol/L (22-29); Chloride 99 mmol/L (96-108); Creatinine Clr Calc Pharmacy 42.1; Estimated Glomerular Filt Rate 58; Glucose Random 112 mg/dL (60-115); Potassium 3.6 mmol/L (3.3-5.1); Sodium 140 mmol/L (135-145)
[2023-05-08 07:15] VITALS: BP 133/57; PULSE 72; RESP 20; TEMP 36.8; O2SAT 94
[2023-05-08] MEDS: Furosemide 40 MG TABLET PO ×2 (07:43→16:39)
[2023-05-08] MEDS: 0.9 % Sodium Chloride Flush 3 ML SYRINGE IVFLUSH ×2 (07:43→16:39)
[2023-05-08] MEDS: Sertraline HCL 25 MG TABLET PO (07:43)
[2023-05-08] MEDS: Metoprolol Tartrate 12.5 MG HALFTAB PO ×2 (07:43→20:15)
[2023-05-08] MEDS: Atorvastatin Calcium 10 MG TABLET PO (07:43)
[2023-05-08] MEDS: cefuroxime axetiL 250 MG TABLET PO ×2 (10:25→20:14)
[2023-05-08 10:58] VITALS: BP 124/76; PULSE 62; RESP 20; TEMP 36.5; O2SAT 94
--- NOTE | 2023-05-08 11:47 | P.PNIM_ITS ---
Subjective Subjective Date of Service: 05/08/23 Interval History: chf execerbation Review of Systems sob somwhat improving has 2+ leg swellin generlaised weak Physical Exam 2 Vital Signs: Vital Signs: Last Vital Signs Temp 97.7 F 05/08/23 10:58 Pulse 62 05/08/23 10:58 Resp 20 05/08/23 10:58 BP 124/76 05/08/23 10:58 Pulse Ox 94 05/08/23 10:58 O2 Del Method Room Air 05/08/23 10:58 O2 Flow Rate 2 05/07/23 00:00 BMI result Body Mass Index 33.3 Appearance: Alert.? Oriented X3.? sob cvs: rrr, [id number] . res: clear to auscultation ,no rhonchii or wheezing abd: no rebound or guarding ,nt, bs present. ext pulses present , no cyanosis ,2+ edema neuro: axo3 , nonfocal. Objective Data Active Medications Acetaminophen (Acetaminophen 325 Mg Tablet) 650 mg PO Q6H PRN PRN Reason: Pain, Mild (Pain Scale 1-3) Last Admin: 05/07/23 23:15 Dose: 650 mg Documented By: GERMAN Atorvastatin Calcium (Atorvastatin Calcium 10 Mg Tablet) 10 mg PO DAILY [facility] Last Admin: 05/08/23 07:43 Dose: 10 mg Documented By: DIALLO Benzonatate (Benzonatate 100 Mg Capsule) 100 mg PO TID PRN PRN Reason: Cough Cefuroxime Axetil (Cefuroxime Axetil 250 Mg Tablet) 250 mg PO Q12H [facility] Last Admin: 05/08/23 10:25 Dose: 250 mg Documented By: DIALLO Furosemide (Furosemide 40 Mg Tablet) 40 mg PO BID@0900,1800 [facility]; Protocol Last Admin: 05/08/23 07:43 Dose: 40 mg Documented By: DIALLO Guaifenesin (Guaifenesin 100 Mg/5 Ml Liquid) 5 ml PO Q4H [facility] Last Admin: 05/08/23 07:43 Dose: Not Given Documented By: DIALLO Non-Admin Reason: Patient Refused Melatonin (Melatonin 3 Mg Tablet) 6 mg PO BEDTIME PRN PRN Reason: Insomnia Metoprolol Tartrate (Metoprolol Tartrate 12.5 Mg Halftab) 12.5 mg PO BID [facility]; Protocol Last Admin: 05/08/23 07:43 Dose: 12.5 mg Documented By: DIALLO Omeprazole (Omeprazole 20 Mg Johnathon.) 20 mg PO BID@0630,1630 [facility] Last Admin: 05/08/23 06:05 Dose: 20 mg Documented By: CARLOS ALBERTO Ondansetron HCl (Ondansetron Hcl 4 Mg/2 Ml Vial) 4 mg IVPUSH Q8H PRN PRN Reason: Nausea and Vomiting Sertraline HCl (Sertraline Hcl 25 Mg Tablet) 25 mg PO DAILY [facility] Last Admin: 05/08/23 07:43 Dose: 25 mg Documented By: DIALLO Sodium Chloride (0.9 % Sodium Chloride Flush 3 Ml Syringe) 3 ml IVFLUSH QSHIFT [facility] Last Admin: 05/08/23 07:43 Dose: 3 ml Documented By: DIALLO Warfarin Sodium (Warfarin Sodium 3 Mg Tablet) 3 mg PO DAILY@1800 [facility] Last Admin: 05/07/23 17:09 Dose: 3 mg Documented By: DIALLO Labs 05/05/23 18:33 05/08/23 06:04 Labs: Laboratory Results - last 24 hr 05/07/23 05/08/23 15:50 06:04 Hold Purple Top SEE NOTE PT 22.3 H INR 1.8 H Anion Gap 10 L Estim Creat Clear Calc 42.1 Estimated GFR 58 Random Glucose 112 Calcium 9.2 Urine Color Yellow Urine Appearance Turbid Urine pH 8.0 Ur Specific [place] 1.015 Urine Protein Trace Urine Glucose (UA) Negative Urine Ketones Negative Urine Blood Negative Urine Nitrite Negative Ur Leukocyte Esterase Moderate (2+) H Urine RBC 0-2 Urine WBC 11-20 Ur Squamous Epith Cells 3-5 Other Crystals Present Urine Bacteria 4+ Hyaline Casts 11-20 Microbiology Microbiology Results: Microbiology 05/07/23 Unknown Urine Culture - Preliminary Urine clean catch - Urine gamboa top Gram negative beata Streptococcus viridans group Assessment and Plan (1) Subtherapeutic international normalized ratio (INR): Status: Acute (2) Congestive heart failure: Status: Acute Plan 83-year-old female with a PMH significant for?HFpEF, chronic hypoxic respiratory failure on prn home O2, pulmonary hypotension, persistent AFib on Coumadin, hx of CVA, aortic valve replacement, HLD, RA, [id number] type 2 diabetes, hx of uterine cancer s/p total hysterectomy, and anxiety and depression who presents to the ED for evaluation of sudden onset SOB and left- sided chest pain. Pt will be admitted to the hospital under observation for treatment and further evaluation of SOB possibly secondary to acute CHF exacerbation. Possibly secondary to HFpEF exacerbation Patient with sudden SOB, difficulty breathing, and increased lower leg edema particularly in left ankle/foot since this morning BNP around baseline and no CHF evidence on X-Ray denies any chest pain trops neg Echocardiogram Follow lytes, MG, I/O neg 2.5 liter Daily weights, low-salt diet plan: Monitor on telemetry,continue iv lasix 40 mg bid, will consider po lasix if feels better by tomorrow. Persistent AFib INR subtherapeutic at 1.8 continue Coumadin to 3 mg po daily,monitor INR Continue metoprolol HLD Continue statin Anxiety/depression Continue home meds Generlaised weak: Pt eval DNR/DNI, verified with pt DVT Prophylaxis: On Coumadin hospitalisation need for possible chf excerebatio-need iv diuresis , renal function/electrolytes as well as i/o monitering ,further evaluation of shortness of breath and difficulty breathing possibly secondary to CHF exacerbation,also monitering for subtherapeutic inr.generalsied weak- need Pt eval. Quality Stroke Does the patient have a stroke diagnosis?: No VTE Prior VTE?: No VTE Risk Level:: Medical - moderate - high VTE Device Contraindication: Treatment Not Indicated VTE Drug Contraindication: N/A - Med Ordered
--- NOTE | 2023-05-08 13:28 | P.DS_ITS ---
DS: Providers Provider Date of Service: 05/09/23 Date of admission: 05/06/23 15:09 Date of discharge: 05/09/23 Primary care physician: Riccardo Page MD Attending physician on discharge: Willam Aquino Discharging clinician: Willam Aquino DS: Diagnosis Discharge Diagnosis (1) Subtherapeutic international normalized ratio (INR): Status: Acute (2) Congestive heart failure: Status: Acute DS: Summary Hospital Course Hospital Course: date of service and discharge : 05/09/23. 83-year-old female with a PMH significant for?HFpEF, chronic hypoxic respiratory failure on prn home O2, pulmonary hypotension, persistent AFib on Coumadin, hx of CVA, aortic valve replacement, HLD, RA, [id number] type 2 diabetes, hx of uterine cancer s/p total hysterectomy, and anxiety and depression who presents to the ED for evaluation of sudden onset SOB and left- sided chest pain. 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 She sleeps in a recliner and last night found she could not sleep or get comfortable. Today patient was talking to a friend and reported suddenly experiencing shortness of breath and difficulty speaking. Denies HAWKINS. At the same time also had left-sided, non radiating sharp chest pain/pressure that lasted approximately 1-1/2 hours. called EMT who brought her to ED for further evaluation. Patient reports still experiencing shortness of breath. Chronic cough approximately baseline. Has chronic lower leg edema with left leg always greater than right; reports increased swelling in left lower ankle and foot that she noticed today. Denies fever, chills, nausea, vomiting, abdominal pain. In the ED pt was tachypneic up to 21, with slightly soft BP of 125/48. Labs were significant for BUN 24, albumin 3.0, and BNP elevated at 306. Leukocytosis. Stable normocytic anemia 9.9/32.2. No significant electrolyte abnormalities. Initial troponin 11.5. Tested negative for influenza, RSV, COVID. CXR showed prominent right hilar density, similar to previous. Mild cardiomegaly with no acute pneumonic process seen. EKG demonstrated AFib with slow ventricular response, RBBB and T-wave inversions in inferior leads, similar to previous. Pt was treated with furosemide 40 mg IV and nitroglycerin transdermal patch. Pt will be admitted to the hospital under observation for treatment and further evaluation of SOB possibly secondary to acute CHF exacerbation. Hospital course: Patient was admitted to the hospital because shortness of breath and some chest tightness, also leg swelling: Patient was admitted for acute hypoxemic respiratiry failure due to CHF exacerbation, troponin negative, BNP elevated : Started on IV diuretics, I&O monitored, was on supplement oxygen(sats were in 88% range intially ): Patient diuresed 2.5 L negative. Shortness of breath improving ,also leg swelling also improving. Off oxygen, Patient was switched to p.o. Lasix. Patient was given CHF education, monitor renal function electrolytes out patiently History of persistent AFib: INR is subtherapeutic today's 1.8, patient warfarin adjusted to 3 mg daily, monitor INR outpatient . Patient is generalized weak also has CHF exacerbation resolving: Seen by PT recommended home PT, patient will be going home with VNA and PT if agrees. plan: CHF education given Continue home Lasix 40 mg t.i.d. If weight gain 2 lb or more in a week consider out patiently Lasix adjustment and follow-up with PCP and Cardiology outpatient. Monitor renal function and electrolytes out patiently as well as INR as above. Above management discussed with the patient detail and she understand in agreement with the plan, time spent 40 minute. Time Attestation Total time managing care of this patient today: 40 mintues. Discharge Coordination Time (in mins): 40 min Quality: Safe Use of Opioids Does Pt have an Active Cancer Diagnosis on the Problem List?: No Quality: Stroke Does the patient have a stroke diagnosis?: No Physical Exam Vital Signs: Vital Signs: Last Vital BMI result Body Mass Index 33.3 vitals from 05/09/23 reviewed ,seems stable. Appearance: Alert.? Oriented X3.? cvs: rrr, [id number] , no murmur res: clear to auscultation ,no rhonchii or wheezing abd: no rebound or guarding ,nt, bs present. ext pulses present , no cyanosis ,trace edema . neuro: axo3 , nonfocal. DS: Data Data Completed and Pending Completed studies during hospitalization [Text1]: Procedures Transfusion of Nonautologous Red Blood Cells into Peripheral Vein, Percutaneous Approach (01/01/21) Labs on day of discharge: Laboratory Results - last 24 hr 05/07/23 05/08/23 15:50 06:04 Hold Purple Top SEE NOTE PT 22.3 H INR 1.8 H Sodium 140 Potassium 3.6 Chloride 99 Carbon Dioxide 35 H Anion Gap 10 L BUN 29 H Creatinine 0.93 Estim Creat Clear Calc 42.1 Estimated GFR 58 Random Glucose 112 Calcium 9.2 Urine Color Yellow Urine Appearance Turbid Urine pH 8.0 Ur Specific Healy 1.015 Urine Protein Trace Urine Glucose (UA) Negative Urine Ketones Negative Urine Blood Negative Urine Nitrite Negative Ur Leukocyte Esterase Moderate (2+) H Urine RBC 0-2 Urine WBC 11-20 Ur Squamous Epith Cells 3-5 Other Crystals Present Urine Bacteria 4+ Hyaline Casts 11-20 Preliminary micro results at discharge 05/07/23 Unknown Urine Culture - Preliminary Urine clean catch - Urine gamboa top Gram negative beata Streptococcus viridans group Imaging Chest x-ray: Radiologist's impression: ITS Impressions Chest X-Ray 05/05/23 18:26 IMPRESSION: 1. Prominent right hilar density similar to previous study. Prominent right pulmonary artery was seen on previous CT chest exam 08/21/2021. 2. No acute pneumonic process seen. 3. Mild cardiomegaly with aortic valve prosthesis in place. Discharge Plan Discharge Anticipated Discharge Date/Time: 05/08/23 13:20 Patient Disposition: Home Health Service Discharge Diagnosis: chf ,subtherapeutic inr Referrals: Po,Riccardo Oropeza MD [Primary Care Provider] - 1 Week Discharge Medications: New warfarin [Jantoven] 3 mg Tablet 3 mg PO DAILY@1800 Qty: 30 0RF Continued ([facility] [place]) Hospital bed See Rx Instructions .Route .MEDSUPPLY Qty: 1 0RF Rx Instructions: As directed metoprolol tartrate 25 mg tablet 12.5 mg PO BID 90 Days Qty: 90 2RF ([facility] [place]) hospital mattress See Rx Instructions .Route .MEDSUPPLY Qty: 1 0RF Rx Instructions: As directed ([facility] [place]) blood-glucose meter Kit See Rx Instructions .ROUTE .MEDSUPPLY Qty: 1 0RF Rx Instructions: As directed check the blood sugar once a day ([facility] [place]) OneTouch Ultra Test Strip See Rx Instructions .ROUTE .MEDSUPPLY Qty: 100 3RF Rx Instructions: As directed check the blood sugar once a day (DME) lancets Misc See Rx Instructions .ROUTE .MEDSUPPLY Qty: 100 0RF Rx Instructions: As directed check the blood sugar once a day simvastatin 20 mg tablet 20 mg PO DAILY Qty: 90 3RF sertraline [Zoloft] 25 mg tablet 25 mg PO DAILY Qty: 90 0RF (DME) prothrombin time test strips Strip See Rx Instructions .Route Qty: 48 12RF Rx Instructions: As directed (DME) INR strips ACELIS See Rx Instructions .Route .MEDSUPPLY Qty: 60 12RF Rx Instructions: As directed acetaminophen 500 mg Tablet 500 mg PO BEDTIME cholecalciferol (vitamin D3) 125 mcg (5,000 unit) Tablet 125 mcg PO PICKARD furosemide 40 mg tablet 40 mg PO TID Rx Instructions: or as directed (DME) blood-glucose meter [[employer] Ultra2 Meter] Kit See Rx Instructions .ROUTE .MEDSUPPLY Qty: 1 0RF Rx Instructions: As directed check the blood sugar once a day (DME) blood sugar diagnostic Strip See Rx Instructions .ROUTE .MEDSUPPLY Qty: 250 3RF Rx Instructions: Twice a day acetaminophen 500 mg capsule 500 mg PO Q6H PRN (Reason: Pain) Discontinued warfarin 1 mg tablet 2 mg PO DAILY@1800 Protocol: Dose Management Condition: Tuesday (Week One) Dose/Route: 2 mg Instruction: 2 x 1 mg tablets Condition: Tuesday Dose/Route: 2 mg Instruction: 2 x 1 mg tablets Condition: Tuesday Dose/Route: 2 mg Instruction: 2 x 1 mg tablets Condition: Tuesday Dose/Route: 2 mg Instruction: 2 x 1 mg tablets Condition: Dose/Route: 3 mg Instruction: 3 x 1 mg tablets Condition: Tuesday Dose/Route: 2 mg Instruction: 2 x 1 mg tablets Condition: Tuesday Dose/Route: 2 mg Instruction: 2 x 1 mg tablets Condition: Tuesday (Week Two) Dose/Route: 2 mg Instruction: 2 x 1 mg tablets Condition: Tuesday Dose/Route: 2 mg Instruction: 2 x 1 mg tablets Condition: Tuesday Dose/Route: 2 mg Instruction: 2 x 1 mg tablets Condition: Tuesday Dose/Route: 2 mg Instruction: 2 x 1 mg tablets Condition: Dose/Route: 3 mg Instruction: 3 x 1 mg tablets Condition: Tuesday Dose/Route: 2 mg Instruction: 2 x 1 mg tablets Condition: Tuesday Dose/Route: 2 mg Instruction: 2 x 1 mg tablets Protocol Text: Adjustment Start Date: Tuesday12/29/22 INR Value: 2.5 INR Date: 12/29/22 Recheck Date: 01/13/23 Rx Instructions: or as directed Discharge Orders: Discharge Order (Routine); Ordered 05/09/23 Ordered By: Willam Aquino Diet: Advance to usual diet Activity on Discharge: As tolerated Stand Alone Forms: Patient Portal Discharge page Other Ambulatory Orders: Prothrombin Time INR (Routine) Timeframe: 1 Week Facility: [facility] - Location: Laboratory Ordered By: Willam Aquino Care Plan Goals: Patient was admitted to the hospital because shortness of breath and some chest tightness, also leg swelling: Patient was admitted for CHF exacerbation, troponin negative, BNP elevated : Started on IV diuretics: Patient diuresed 2.5 L negative. Shortness of breath improving ,also leg swelling also improving. Patient was switched to p.o. Lasix. Patient was given CHF education, monitor renal function electrolytes out patiently History of persistent AFib: INR is subtherapeutic today's 1.8, patient warfarin adjusted to 3 mg daily, monitor INR outpatient . Patient is generalized weak also has CHF exacerbation resolving: Seen by PT recommended home PT, patient has VNA and will add PT if agrees. Health Concerns: As above. Plan of Treatment: CHF education given Continue home Lasix 40 mg t.i.d. If weight gain 2 lb or more in a week consider out patiently Lasix adjustment and follow-up with PCP and Cardiology outpatient. Monitor renal function and electrolytes out patiently as well as INR as above. Assessment: As above. Patient Instructions: Heart Failure (DC)
[2023-05-08] MEDS: Acetaminophen 325 MG TABLET 650 MG PO ×2 (13:43→22:21)
[2023-05-08 16:00] VITALS: BP 138/61; PULSE 78; RESP 20; TEMP 36.7; O2SAT 92
[2023-05-08] MEDS: Warfarin Sodium 3 MG TABLET PO (16:39)
[2023-05-08 19:24] VITALS: BP 116/62; PULSE 65; RESP 18; TEMP 36.6; O2SAT 95
[2023-05-08] MEDS: guaiFENesin 100 MG/5 ML LIQUID PO (20:14)
[2023-05-08] MEDS: Melatonin 3 MG TABLET 6 MG PO (22:21)
[2023-05-08 23:56] VITALS: BP 111/50; PULSE 83; RESP 18; TEMP 37.1; O2SAT 92
[2023-05-09] MEDS: 0.9 % Sodium Chloride Flush 3 ML SYRINGE IVFLUSH ×2 (00:11→09:43)
[2023-05-09] MEDS: guaiFENesin 100 MG/5 ML LIQUID PO ×2 (00:20→06:03)
[2023-05-09 03:46] VITALS: BP 140/60; PULSE 51; RESP 20; TEMP 37; O2SAT 93
[2023-05-09] MEDS: Omeprazole 20 MG CAPSULE.DR PO (06:03)
[2023-05-09] MEDS: Acetaminophen 325 MG TABLET 650 MG PO (06:04)
[2023-05-09 07:23] VITALS: BP 134/60; PULSE 98; RESP 18; TEMP 36.9; O2SAT 91
[2023-05-09 07:50] LABS: INTERNATIONAL NORM RATIO 2.5 (0.9-1.1); Prothrombin Time 29.9 SEC (11.1-13.3)
[2023-05-09] MEDS: Furosemide 40 MG TABLET PO ×2 (09:42)
[2023-05-09] MEDS: Sertraline HCL 25 MG TABLET PO (09:43)
[2023-05-09] MEDS: cefuroxime axetiL 250 MG TABLET PO (09:43)
[2023-05-09] MEDS: Metoprolol Tartrate 12.5 MG HALFTAB PO (09:43)
[2023-05-09] MEDS: Atorvastatin Calcium 10 MG TABLET PO (09:43)
--- NOTE | 2023-05-09 10:32 | P.F2F_ITS ---
Service Date Service Date: 05/09/23 Encounter Date of encounter: 05/09/23 Encounter: chf execerebation, Reasons for Services Signs and symptoms assessed: Shortness of breath or chest pain Reason for long-term: CV/CP assess and/or care, medication management, medication treatment and teach disease management Reason for physical therapy: home safety and mobility, therapeutic exercises, restore joint function, gait/transfer training, assess need for DME, ADL training, energy conservation and other MD Overseeing Care: Riccardo Page Homebound: Leaving the home is medically contraindicated at this time without the asist of a device and/or another person due th the listed conditions above and below. Reason homebound: weakness related to hospital stay Homebound supporting statement: Patient is generalized weak has multiple comorbidities including CHF exacerbation-need help go to appointments, lab draws, CHF education as well as home PT need. Certification: Based on the above findings, I certify that this patient is confined to the home and needs intermittent long-term care, physical therapy and/or speech therapy, or continues to need occupational therapy. The patient is under my care, and I have initiated the establishment of the plan of care. The patient will be followed by a physician who will periodically review the plan of care. Time Spent With Patient Time: Total time managing care of this patient today ____ minutes.
[2023-05-09 11:12] VITALS: BP 120/59; PULSE 74; RESP 18; TEMP 36.7; O2SAT 91
--- NOTE | 2023-05-09 13:56 | MHC.CM.PN ---
Pt is medically cleared for D/C home with yaneth CHRISTOPHER pt to be transported via ambulance at 2:30pm. Pts daughter Emily will meet ambulance at pts house to ensure she is able to get into the home. It came to this CM's attention that pts had been brought to the ED today and was not at home to help get her in as originally planned. Pt aware and in agreement with D/C plan.
== END 2023-05-09 14:53 | disposition home health service (06) | DRG 291 ==
LOC: HO.ED 20:29 → HO.EDOVER 23:08 → HO.IMC 05-06 17:52
PROVIDERS: Admitting Provider Student in an Organized Health Care Education/Training Program; Emergency Provider Emergency Medicine; PCP Internal Medicine; Visit Provider Internal Medicine
DX: I11.0 Hypertensive heart disease with heart failure (principal); I50.33 Acute on chronic diastolic (congestive) heart failure; I48.19 Other persistent atrial fibrillation; J96.11 Chronic respiratory failure with hypoxia; E78.5 Hyperlipidemia, unspecified; F41.9 Anxiety disorder, unspecified; F32.A Depression, unspecified; Z66 Do not resuscitate; D64.9 Anemia, unspecified; I27.20 Pulmonary hypertension, unspecified; R79.1 Abnormal coagulation profile; M06.9 Rheumatoid arthritis, unspecified; Z20.822 Contact with and (suspected) exposure to COVID-19; Z99.81 Dependence on supplemental oxygen; Z95.2 Presence of prosthetic heart valve; Z79.01 Long term (current) use of anticoagulants; Z79.899 Other long term (current) drug therapy
CPT/HCPCS: 0241U; 36415; 71045; 73521; 73560; 73600; 80048; 80076; 81001; 81003; 82947; 83605; 83690; 83735; 83880; 84484; 85025; 85379; 85610; 85730; 87040; 87086; 87088; 87186; 93005; 93306; 97161; 97162; 99222; 99285; J0696; J1940; J2405; Q9957

== ENCOUNTER → 2023-05-05 18:07 | Outpatient (BNV) | payer MEDICARE, OTHER, SELFPAY | PROVIDERS: Admitting Provider Student in an Organized Health Care Education/Training Program; Emergency Provider Emergency Medicine; PCP Internal Medicine; Visit Provider Internal Medicine | DX: R06.02 Shortness of breath (principal) | CPT/HCPCS: 93010 ==

== ENCOUNTER → 2023-05-06 07:00 | Outpatient (BNV) | payer MEDICARE, OTHER, SELFPAY | PROVIDERS: Admitting Provider Student in an Organized Health Care Education/Training Program; Emergency Provider Emergency Medicine; PCP Internal Medicine; Visit Provider Internal Medicine | DX: I34.81 Nonrheumatic mitral (valve) annulus calcification (principal); Z95.3 Presence of xenogenic heart valve | CPT/HCPCS: 93306 ==

== ENCOUNTER → 2023-05-06 15:09 | Outpatient (BNV) | payer MEDICARE, OTHER, SELFPAY | PROVIDERS: Admitting Provider Student in an Organized Health Care Education/Training Program; Emergency Provider Emergency Medicine; PCP Internal Medicine; Visit Provider Internal Medicine | DX: R06.02 Shortness of breath (principal); R79.1 Abnormal coagulation profile | CPT/HCPCS: 99222; 99231; 99232; 99239; G0180 ==

== ENCOUNTER 2023-05-10 12:49 | Inpatient (IN) | payer MEDICARE, OTHER, SELFPAY ==
[2023-05-10] VITALS (7 sets, daily range): BP systolic 125–168; BP diastolic 61–78; PULSE 64–81; RESP 15–20; TEMP 36.7–38; O2SAT 90–99; BMI 35.7
--- NOTE | ~2023-05-10 | XR_ITS ---
EXAMINATION: XR KNEE, LEFT CLINICAL INFORMATION: Pain. COMPARISON: None available. TECHNIQUE: Two views of the left knee. FINDINGS: Decreased bone mineralization. Total knee arthroplasty. No evidence of periprosthetic fractures or hardware complication. No fracture or subluxation. No joint effusion. Scattered vascular calcifications. XR/XR knee LT 2V IMPRESSION: 1. Total knee arthroplasty without evidence of hardware complication. 2. No fracture or malalignment.
--- NOTE | ~2023-05-10 | XR_ITS ---
EXAMINATION: XR ANKLE, LEFT CLINICAL INFORMATION: Fall, pain. COMPARISON: Radiograph left ankle 08/21/2021. TECHNIQUE: AP, lateral, and mortise views of the left ankle. FINDINGS: Very limited examination secondary to decreased bone mineralization, advanced degenerative arthrosis and significant soft tissue swelling. However, accounting for these limitations, no discrete displaced fractures or subluxations are seen. Severe multifocal joint space narrowing with bony productive changes and subcortical sclerosis. Extensive soft tissue swelling. Severe vascular calcifications. XR/XR ankle LT 2V IMPRESSION: Very limited examination secondary to decreased bone mineralization, advanced degenerative arthrosis and soft tissue swelling. However, no discrete displaced fractures or subluxations are seen. If the patient has persistent pain or a diminished ability to bear weight on short-term follow-up, consider obtaining an MRI without contrast to exclude a radiographically occult fracture.
--- NOTE | ~2023-05-10 | XR_ITS ---
EXAMINATION: XR CHEST CLINICAL INFORMATION: Cough. Shortness of breath. COMPARISON: 05/10/2023 TECHNIQUE: Frontal view of the chest was obtained. FINDINGS: Suspected left lower lobe consolidation with obscuration of the left hemidiaphragm. No pleural effusion. Cardiomediastinal contour is stable. Aortic valve stent is in place. Asymmetric widening of the right acromioclavicular joint is unchanged. Marked degenerative changes of bilateral shoulders. XR/XR chest 1V IMPRESSION: Suspected left lower lobe consolidation. Advise clinical correlation and short-term follow follow-up imaging.
--- NOTE | ~2023-05-10 | XR_ITS ---
EXAMINATION: XR BILATERAL HIPS WITH AP PELVIS CLINICAL INFORMATION: Fall, pain. COMPARISON: CT abdomen/pelvis 11/09/2022. TECHNIQUE: AP view of the pelvis and single views of each hip were obtained. FINDINGS: Decreased bone mineralization. No fractures or subluxation. Femoral heads are well-seated in their respective acetabula. Pubic symphysis is maintained. Pelvic ring is maintained. 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 Partially seen intramedullary beata overlying the distal right femoral shaft. Scattered moderate to severe vascular calcifications. XR/XR hip BI w PEL1V IMPRESSION: 1. No acute fractures or subluxation. 2. 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 If the patient has persistent pain or a diminished ability to bear weight on short-term follow-up, consider obtaining an MRI of the pelvis without contrast to exclude a radiographically occult fracture.
--- NOTE | ~2023-05-10 | XR_ITS ---
EXAMINATION: XR CHEST CLINICAL INFORMATION: Cough and fevers. COMPARISON: Chest 05/05/2023 TECHNIQUE: Frontal view of the chest was obtained. FINDINGS: There is moderate cardiomegaly with prominent right hilar density similar to previous study. Increased vascular markings seen in both lungs There is aortic valve stent in place. Lungs are expanded and clear acute pneumonic process. No gross bony abnormality. XR/XR chest 1V IMPRESSION: 1. Cardiomegaly with mild pulmonary vascular congestion suspected. No change from 05/05/2023. No change in right hilar density from previous study 2. Aortic valve stent in place.
--- NOTE | 2023-05-10 13:11 | PHA.MEDREC ---
Pharmacy Consult ? Medication Reconciliation Pharmacy has completed the medication reconciliation. Patient just discharge yesterday 05/09/23, from inpatient. Utilized discharge summary for med rec. Pily MartinD
--- NOTE | 2023-05-10 13:33 | ECG_ITS ---
Test Reason : chest tightness Blood Pressure : / mmHG Vent. Rate : 081 BPM Atrial Rate : 000 BPM P-R Int : 000 ms QRS Dur : 152 ms QT Int : 446 ms P-R-T Axes : 000 100 -33 degrees QTc Int : 518 ms Atrial fibrillation Right bundle branch block T wave abnormality, consider inferior ischemia Abnormal ECG When compared with ECG of 05-MAY-2023 18:25, No significant change was found Referred By: Sharmaine Santillan Electronically Signed By:Carmleo Andrews
[2023-05-10 13:39] LABS: Glucose, Whole Blood 105 mg/dL (60-115)
[2023-05-10 14:09] LABS: MANUAL DIFF FLAG NO
[2023-05-10 14:12] LABS: Basophils Percent Auto 0.3 % (0-2); Eosinophils Percent Auto 0.6 % (0-4); Hematocrit 31.3 % (37.0-47.0); Hemoglobin 9.8 g/dl (12.0-16.0); Imm Gran Abs Auto 0.01 X10*3/uL (0.00-0.03); Imm Gran Pct Auto 0.3 % (0.0-0.4); Lymphocytes Absolute Auto 0.5 X10*3/uL (1.2-4.9); Lymphocytes Percent Auto 13.9 % (20-40); Mean Corpuscular HGB Conc 31.3 g/dl (31.0-35.0); Mean Corpuscular Hemoglobin 27.4 pg (27.0-33.0); Mean Corpuscular Volume 87.4 fL (80.0-98.0); Mean Platelet Volume 9.3 fL (9.4-12.3); Monocytes Absolute Auto 0.5 X10*3/uL (0.1-1.2); Monocytes Percent Auto 14.5 % (2-11); Neutrophils Absolute Auto 2.3 x10*3/uL (2.0-8.3); Neutrophils Percent Auto 70.4 % (45-73); Platelet Count 140 X10*3/uL (160-400); Red Blood Count 3.58 X10*6/uL (4.20-5.50); Red Cell Distribution Width 15.8 % (11.0-16.0); White Blood Count 3.2 X10*3/uL (4.8-10.8)
[2023-05-10 14:16] LABS: INTERNATIONAL NORM RATIO 2.1 (0.9-1.1); Prothrombin Time 25.9 SEC (11.1-13.3)
[2023-05-10 14:21] LABS: Lactic Acid 0.9 mmol/L (0.5-2.0)
[2023-05-10 14:31] LABS: B Type Natriuretic Peptide 347 pg/mL (<100)
[2023-05-10 14:32] LABS: Troponin-I High Sensitivity 20.8 ng/L (<3.5-17.0)
[2023-05-10] MEDS: Acetaminophen 325 MG TABLET 650 MG PO ×2 (14:32→22:50)
[2023-05-10] MEDS: cefTRIAXone sodium 1 GM in 0.9 % Sodium Chloride 50 ML IV (14:32)
[2023-05-10 14:34] LABS: Alanine Aminotransferase 5 U/L (0-31); Albumin Level 3.2 g/dL (3.5-5.0); Alkaline Phosphatase 94 U/L (39-117); Anion Gap 16 (12-20); Aspartate Amino Transferase 13 U/L (5-31); Bilirubin Direct 0.3 mg/dL (0.0-0.5); Bilirubin Total 0.6 mg/dL (0.0-1.0); Blood Urea Nitrogen 24 mg/dL (9-16); Calcium 9.2 mg/dL (8.4-10.2); Carbon Dioxide 32 mmol/L (22-29); Chloride 95 mmol/L (96-108); Creatinine Clr Calc Pharmacy 48.8; Estimated Glomerular Filt Rate > 60; Glucose Random 108 mg/dL (60-115); Magnesium 1.9 mg/dL (1.6-2.6); Potassium 3.5 mmol/L (3.3-5.1); Sodium 139 mmol/L (135-145); Total Protein 7.8 g/dL (6.5-8.0)
--- NOTE | 2023-05-10 14:37 | ED_ITS ---
HPI - General Adult General Chief complaint: General Medical Stated complaint: SOB Time Seen by Provider: 05/10/23 13:07 Source: patient and old records reviewed Mode of arrival: EMS Limitations: no limitations History of Present Illness HPI narrative: 83 yo female with PMH of bilateral leg edema, CHF, afib on coumadin, DM2, RA, HLD, HTN, anxiety and depression here with c/o chills, leg rash, dyspnea chest tightness, cough with sputum production. She reports symptoms started this AM. She just left the hospital yesterday. She took no medications at home. No sick family members. Sats 90-91% on RA. EMS gave nitro no change in symptoms per patient still has cough and chills. MD complaint: leg rash, dyspnea, cough, chills Onset (ago): day(s) (this AM) Location: chest, left and lower extremity Radiation: non-radiation Severity: moderate Quality: dull Pain Consistency: intermittent Relieving factors: none Exacerbating factors: other (cough, movement) Associated symptoms: cough, fever/chills, headaches, loss of appetite, malaise, shortness of breath and weakness Treatments prior to arrival: other (nitro paste) Related Data Home Medications Medication Instructions Recorded Confirmed acetaminophen 500 mg capsule 500 mg PO Q6H PRN Pain 09/15/22 05/10/23 acetaminophen 500 mg tablet 500 mg PO BEDTIME 05/05/23 05/10/23 cholecalciferol (vitamin D3) 125 125 mcg PO PICKARD 05/05/23 05/10/23 mcg (5,000 unit) tablet furosemide 40 mg tablet 40 mg PO TID 05/05/23 05/10/23 Previous Rx's Medication Instructions Recorded blood sugar diagnostic #250 ea 07/29/21 blood-glucose meter (OneTouch #1 ea 07/29/21 Ultra2 Meter kit) Hospital bed #1 ea 09/16/21 metoprolol tartrate 25 mg tablet 12.5 mg (1/2 x 25 mg) PO BID 90 07/26/22 days #90 tabs hospital mattress #1 ea 08/10/22 blood sugar diagnostic (OneTouch #100 ea 12/01/22 Ultra Test strips) blood-glucose meter #1 ea 12/01/22 lancets #100 ea 12/01/22 simvastatin 20 mg tablet 20 mg PO DAILY #90 tabs 12/08/22 sertraline 25 mg tablet (Zoloft) 25 mg PO DAILY #90 tabs 03/07/23 INR strips ACELIS #60 ea 03/11/23 prothrombin time test strips #48 ea 03/11/23 warfarin 3 mg tablet (Jantoven) 3 mg PO DAILY@1800 #30 tabs 05/08/23 Allergies Allergy/AdvReac Type Severity Reaction Status Date / Time shellfish derived Allergy Unknown itchy Verified 05/05/23 18:21 procaine [From Novocain] AdvReac Unknown makes Verified 05/05/23 18:21 patient itchy,puffy Review of Systems 2 Review of Systems: Constitutional : No Fever, pos Chills ENT/Mouth : No sore throat, No Rhinorrhea, No Swallowing Difficulty Eyes: No Eye Pain, No Swelling, No Redness Cardiovascular : No Chest Pain, positive SOB, No Orthopnea, positive Edema Respiratory : pos Cough, No Sputum, No Wheezing, positive dyspnea Gastrointestinal : No Nausea, No Vomiting, No Diarrhea, No abdominal Pain, No Hematochezia, No Melena Genitourinary : No Dysuria, No Urinary Frequency, No Hematuria Musculoskeletal : No joint pain, No Myalgias Skin : No Skin Lesions, pos rash Neuro : No Weakness, No Numbness, No Dizziness, No Headache Psych : No Anxiety/Panic, No Depression Heme/Lymph: No Bruising, No Lymphadenopathy Endocrine : No Polyuria, No Polydipsia All other systems reviewed and are negative PMFSH Past Medical History Attestation statement: The following information was validated with the patient. Source: old records reviewed Medical History Persistent atrial fibrillation Chronic hypoxemic respiratory failure Rash Constipation Impaired mobility and ADLs Pulmonary hypertension Chronic diastolic (congestive) heart failure Pancytopenia Congestive heart failure Pulmonary hypertension Nonrheumatic aortic valve stenosis CHF exacerbation Acute pyelonephritis Chronic anticoagulation Pneumonia (HFpEF) heart failure with preserved ejection fraction Sepsis Lumbar vertebral fracture CVA (cerebral vascular accident) TIA (transient ischemic attack) Uterine cancer Anxiety and depression Obesity (BMI 30-39.9) Rheumatoid arthritis Hypercholesterolemia Hypertension Atrial fibrillation Type 2 diabetes mellitus with hyperglycemia Surgical History Status post transcatheter aortic valve replacement History of transcatheter aortic valve replacement (TAVR) (~06/19/21) History of colonoscopy History of appendectomy History of right knee joint replacement History of left knee replacement S/P ANTONIO-BSO Family History Family History Father Diabetes CAD (coronary artery disease) Mother Diabetes Hypertension Perforated ulcer Sister Diabetes Social History Social History Household Members: Significant Other Housing: House Housing Other:: lives with spouse Do you presently have visiting nurse or other home services: Yes Alcohol intake: never Comment: 1:1 sitter Patient Tobacco Use Status: Never used Tobacco Smoked in Last 30 Days: No e-Cigarette/Vaping Use: Never Used Second Hand Smoke Exposure: No Use of substances other than those prescribed or required for medical reasons: No Advance Directives: Yes Advance Directives on File: Yes Advance Directives Date on File: 09/03/21 service: No Current occupational status: retired 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 Oriented X3. No acute distress. Eyes: Pupils equal, round and reactive to light. ENT: Pharynx normal. Neck: Normal inspection. Neck supple. CVS: Normal heart rate and rhythm. Pulses normal. Respiratory: No respiratory distress. Breath sounds rales both bases Abdomen: Soft and nontender. Skin: Skin warm and dry. Normal skin color. Normal skin turgor. Extremities: 1+ pitting lower extremity edema. Left leg is red and hot to touch and painful no crepitus no abscess felt Neuro: Oriented X 3. No motor deficit. No sensory deficit. Medications Administered Discontinued Medications Generic Name Dose Route Start Last Admin Trade Name Freq PRN Reason Stop Dose Admin Acetaminophen 650 mg 05/10/23 13:49 05/10/23 14:32 Acetaminophen 325 Mg Tablet PO 05/10/23 13:50 650 mg ONCE ONE Administration Ceftriaxone Sodium 1 gm/ 50 mls @ 100 mls/hr 05/10/23 13:49 05/10/23 14:32 Sodium Chloride IV 05/10/23 14:18 100 mls/hr ONCE ONE Administration Medical Decision Making Medical Decision Making [facility] Narrative: 83 yo female with PMH of bilateral leg edema, CHF, afib on coumadin, DM2, RA, HLD, HTN, anxiety and depression here with c/o dyspnea, fevers, left leg redness and pain concerning for cellulitis all of her symptoms started today denies sick contacts - at this time will need labs cultures, IV ceftriaxone, CXR and viral panel she is slightly hypoxic - BNP and CXR ordered may need IV lasix. Reports compliance with coumadin doubt VTE. Has no CP to suggest ACS. Differential Diagnosis Differential Diagnoses: The differential diagnosis associated with the presentation includes cellulitis, viral syndrome, pneumonia Admission/Observation Consideration of admission/observation: Escalation of care including admission/observation considered admit for IV antibiotics for L leg celluitis NV intact doubt DVT started on tamiflu - 90-91% doing well on 2L NC IV lasix ordered Consult Healthcare Provider Management of the patient was discussed with: Hospitalist (will admit) Lab Data [facility] Lab Attestation statement: I reviewed the patient's lab results. 05/10/23 14:03 05/10/23 14:03 Labs: Lab Results 05/10/23 05/10/23 Range/Units 13:35 14:03 WBC 3.2 L (4.8-10.8) X10*3/uL RBC 3.58 L (4.20-5.50) X10*6/uL Hgb 9.8 L (12.0-16.0) g/dl Hct 31.3 L (37.0-47.0) % MCV 87.4 (80.0-98.0) fL MCH 27.4 (27.0-33.0) pg MCHC 31.3 (31.0-35.0) g/dl RDW 15.8 (11.0-16.0) % Plt Count 140 L (160-400) X10*3/uL MPV 9.3 L (9.4-12.3) fL Immature Gran % (Auto) 0.3 (0.0-0.4) % Neut % (Auto) 70.4 (45-73) % Lymph % (Auto) 13.9 L (20-40) % [place] % (Auto) 14.5 H (2-11) % Eos % (Auto) 0.6 (0-4) % Baso % (Auto) 0.3 (0-2) % Lymph # (Auto) 0.5 L (1.2-4.9) X10*3/uL [place] # (Auto) 0.5 (0.1-1.2) X10*3/uL Eos # (Auto) 0.0 (0.0-0.4) X10*3/uL Baso # (Auto) 0.0 (0.0-0.2) X10*3/uL Abs Immat Gran (auto) 0.01 (0.00-0.03) X10*3/uL Absolute Neuts (auto) 2.3 (2.0-8.3) x10*3/uL Absolute Nucleated RBC 0.000 (0.0-0.012) X10*3/uL Nucleated RBC % (auto) 0.0 (0.0-0.2) /100WBC PT 25.9 H (11.1-13.3) SEC INR 2.1 H (0.9-1.1) Sodium 139 (135-145) mmol/L Potassium 3.5 (3.3-5.1) mmol/L Chloride 95 L (96-108) mmol/L Carbon Dioxide 32 H (22-29) mmol/L Anion Gap 16 (12-20) BUN 24 H (9-16) mg/dL Creatinine 0.80 (0.5-1.4) mg/dL Estim Creat Clear Calc 48.8 Estimated GFR > 60 POC Glucose 105 (60-115) mg/dL Random Glucose 108 (60-115) mg/dL Lactic Acid 0.9 (0.5-2.0) mmol/L Calcium 9.2 (8.4-10.2) mg/dL Magnesium 1.9 (1.6-2.6) mg/dL Total Bilirubin 0.6 (0.0-1.0) mg/dL Direct Bilirubin 0.3 (0.0-0.5) mg/dL AST 13 (5-31) U/L ALT 5 (0-31) U/L Alkaline Phosphatase 94 (39-117) U/L Troponin I High Sens 20.8 H D (<3.5-17.0) ng/L B-Natriuretic Peptide 347 H (<100) pg/mL Total Protein 7.8 (6.5-8.0) g/dL Albumin 3.2 L (3.5-5.0) g/dL Influenza Type A (PCR) POSITIVE A (Negative) Influenza Type B (PCR) NEGATIVE (Negative) RSV RNA Qual (PCR) NEGATIVE (Negative) SARS-CoV-2 RNA (RT-PCR) NEGATIVE (Negative) Independent Interpretation I performed an independent interpretation of an: EKG and Plain X-Ray (edema noted) Interpretation: Rate: 81 Rhythm: afib [place]: right Normal P waves. Normal WANG. RBBB ST T wave : no TIANA inverted t waves V1-V3 along with inf leads qTC: 518 prior studies: no acute change The study has been interpreted contemporaneously by me. . Radiology Impression Discussion of test interpretation with radiology: I have reviewed the radiologist's reading. Independent Historian Clinical information obtained from an independent historian. History obtained from or confirmed by: EMS External Record Review External record reviewed: Inpatient record Discharge Plan Discharge Clinical Impression: Influenza A Cellulitis Qualifiers: Site of cellulitis: extremity Site of cellulitis of extremity: lower extremity Laterality: left Qualified Code(s): L03.116 - Cellulitis of left lower limb CHF (congestive heart failure) Qualifiers: Heart failure type: unspecified Heart failure chronicity: acute on chronic Q ualified Code(s): I50.9 - Heart failure, unspecified Patient Disposition: Admitted As Inpatient Prescriptions: No Action (DME) Hospital bed See Rx Instructions .Route .MEDSUPPLY Qty: 1 0RF Rx Instructions: As directed metoprolol tartrate 25 mg tablet 12.5 mg PO BID 90 Days Qty: 90 2RF ([facility]) hospital mattress See Rx Instructions .Route .MEDSUPPLY Qty: 1 0RF Rx Instructions: As directed ([facility]) blood-glucose meter Kit See Rx Instructions .ROUTE .MEDSUPPLY Qty: 1 0RF Rx Instructions: As directed check the blood sugar once a day ([facility]) OneTouch Ultra Test Strip See Rx Instructions .ROUTE .MEDSUPPLY Qty: 100 3RF Rx Instructions: As directed check the blood sugar once a day (DME) lancets Misc See Rx Instructions .ROUTE .MEDSUPPLY Qty: 100 0RF Rx Instructions: As directed check the blood sugar once a day simvastatin 20 mg tablet 20 mg PO DAILY Qty: 90 3RF sertraline [Zoloft] 25 mg tablet 25 mg PO DAILY Qty: 90 0RF (DME) prothrombin time test strips Strip See Rx Instructions .Route Qty: 48 12RF Rx Instructions: As directed (DME) INR strips ACELIS See Rx Instructions .Route .MEDSUPPLY Qty: 60 12RF Rx Instructions: As directed acetaminophen 500 mg Tablet 500 mg PO BEDTIME cholecalciferol (vitamin D3) 125 mcg (5,000 unit) Tablet 125 mcg PO PICKARD furosemide 40 mg tablet 40 mg PO TID Rx Instructions: or as directed warfarin [Jantoven] 3 mg Tablet 3 mg PO DAILY@1800 Qty: 30 0RF (DME) blood-glucose meter [OneTouch Ultra2 Meter] Kit See Rx Instructions .ROUTE .MEDSUPPLY Qty: 1 0RF Rx Instructions: As directed check the blood sugar once a day (DME) blood sugar diagnostic Strip See Rx Instructions .ROUTE .MEDSUPPLY Qty: 250 3RF Rx Instructions: Twice a day acetaminophen 500 mg capsule 500 mg PO Q6H PRN (Reason: Pain)
[2023-05-10 14:46] LABS: Influenza A PCR POSITIVE (Negative); Influenza B PCR NEGATIVE (Negative); Resp Syncy Virus RNA Qual PCR NEGATIVE (Negative); SARS COV2 PCR INHOUSE NEGATIVE (Negative)
--- NOTE | 2023-05-10 15:24 | PC.NURSE ---
nitropaste 1iinch d/c'd per dr. cabral.
[2023-05-10] MEDS: Oseltamivir Phosphate 75 MG CAPSULE PO (16:00)
[2023-05-10] MEDS: Furosemide 20 MG/2 ML VIAL IVPUSH (16:00)
--- NOTE | 2023-05-10 16:02 | P.HPHOSP_ITS ---
History of Present Illness Date of Service: 05/10/23 Chief Complaint: Shortness of breath Pt is an 83-year-old female with a PMH significant for?HFpEF, chronic hypoxic respiratory failure on prn home O2, pulmonary hypERtension, persistent AFib on Coumadin, hx of CVA, aortic valve replacement, HLD, RA, [id number] type 2 diabetes, hx of uterine cancer s/p total hysterectomy, and anxiety and depression who presents to the ED with shortness of breath. She was admitted to the hospital from 05/04 to 05/07 for management of CHF. She went home for less than 24 hours. She woke up this morning short of breath and having fever and chills. Work up has revealed positive influenza and heart failure. She is given IV Lasix and Tamiflu. She feels more comfortable now. She lives at home with who is currently hospitalized. Review of Systems 2 Review of Systems: Gen: +chills and fever Resp: n+ sob, + cough CV: no chest, _ [place], + leg edema GI: No n/v, no abd pain Neuro: No confusion Yes all other systems are reviewed and are negative [facility] Medical History Influenza A Persistent atrial fibrillation Chronic hypoxemic respiratory failure Rash Constipation Impaired mobility and ADLs Pulmonary hypertension Chronic diastolic (congestive) heart failure Pancytopenia Congestive heart failure Pulmonary hypertension Nonrheumatic aortic valve stenosis CHF exacerbation Acute pyelonephritis Chronic anticoagulation Pneumonia (HFpEF) heart failure with preserved ejection fraction Sepsis Lumbar vertebral fracture CVA (cerebral vascular accident) TIA (transient ischemic attack) Uterine cancer Anxiety and depression Obesity (BMI 30-39.9) Rheumatoid arthritis Hypercholesterolemia Hypertension Atrial fibrillation Type 2 diabetes mellitus with hyperglycemia Family History Father Diabetes CAD (coronary artery disease) Mother Diabetes Hypertension Perforated ulcer Sister Diabetes Surgical History Status post transcatheter aortic valve replacement History of transcatheter aortic valve replacement (TAVR) (~06/19/21) History of colonoscopy History of appendectomy History of right knee joint replacement History of left knee replacement S/P ANTONIO-BSO Social History Household Members: Spouse Housing: House Housing Other:: lives with spouse Do you presently have visiting nurse or other home services: Yes Alcohol intake: never Comment: 1:1 sitter Patient Tobacco Use Status: Never used Tobacco Smoked in Last 30 Days: No e-Cigarette/Vaping Use: Never Used Patient Interested in Nicotine Replacement: No Patient Given Instructions on How to Stop Smoking: No Second Hand Smoke Exposure: No Use of substances other than those prescribed or required for medical reasons: No Currently Displaying Signs/Symptoms of Drug Intoxication Withdrawal: No Have you been hit, kicked, punched, or otherwise hurt by someone within the past year? If so, by whom?: No Do you feel safe in your current relationship?: Yes Is there a partner from a previous relationship who is making you feel unsafe now?: No Are you made to feel afraid or neglected: No Advance Directives: Yes Advance Directives on File: Yes Advance Directives Date on File: 09/03/21 Do you have thoughts of harming others: None Recently lost weight without trying: Unsure How much weight loss: Unsure Eating poorly because of decreased appetite: Yes Nutrition screen score: 5 Nutrition Risks: Poor intake 0-25% >4 days Patient : No : No Poor oral hygiene: No service: No Current occupational status: retired 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, [employer] Current occupational exposures/hazards: No Cognitive needs: Yes (cane, walker) Hearing needs: No Vision needs: Yes (glasses) Meds Allergies Allergy/AdvReac Type Severity Reaction Status Date / Time shellfish derived Allergy Unknown itchy Verified 05/05/23 18:21 procaine [From Novocain] AdvReac Unknown makes Verified 05/05/23 18:21 patient itchy,puffy Home Medications Medication Instructions Recorded Confirmed Last Taken Type acetaminophen 500 mg capsule 500 mg PO Q6H PRN Pain 09/15/22 05/10/23 09/23/22 History acetaminophen 500 mg tablet 500 mg PO BEDTIME 05/05/23 05/10/23 Unknown History cholecalciferol (vitamin D3) 125 125 mcg PO PICKARD 05/05/23 05/10/23 Unknown History mcg (5,000 unit) tablet furosemide 40 mg tablet 40 mg PO TID 05/05/23 05/10/23 Unknown History Physical Exam 2 Vital Signs and Narrative: Vital Signs: Last Vital Signs Temp 98.7 F 05/10/23 14:38 Pulse 77 05/10/23 14:38 Resp 18 05/10/23 14:38 BP 161/61 H 05/10/23 14:38 Pulse Ox 97 05/10/23 14:38 O2 Del Method Nasal Cannula 05/10/23 14:38 O2 Flow Rate 1 05/10/23 14:38 BMI result Body Mass Index 35.7 Const: Other: Constitutional: Alert, in no distress, overweight. Mental Status: Oriented to person, place and time. Eyes: Pupils are equal, round and reactive to light. Ear, Nose and Throat: Oropharynx clear, mucous membranes moist. Ears and nose without deformities. Trachea midline. Respiratory: Clear to auscultation. No wheezing, rales or rhonchi. Cardiovascular: S1 S2 regular. No murmurs, rubs or gallops, 2+ leg edeam billaer Gastrointestinal: Abdomen soft, non-tender, non-distended. Normal bowel sounds.? Neurologic: Cranial nerves II-XII grossly intact. No focal neurological deficits. Moves all extremities spontaneously.? Skin: No rashes or lesions.? Musculoskeletal: No cyanosis or clubbing. Psychiatric: Normal mood and affect? Results Labs 05/10/23 14:03 05/11/23 06:34 Labs: Laboratory Results - last 24 hr 05/10/23 05/10/23 13:35 14:03 MCV 87.4 MCH 27.4 MCHC 31.3 RDW 15.8 Plt Count 140 L MPV 9.3 L Immature Gran % (Auto) 0.3 Neut % (Auto) 70.4 Lymph % (Auto) 13.9 L [place] % (Auto) 14.5 H Eos % (Auto) 0.6 Baso % (Auto) 0.3 Lymph # (Auto) 0.5 L [place] # (Auto) 0.5 Eos # (Auto) 0.0 Baso # (Auto) 0.0 Abs Immat Gran (auto) 0.01 Absolute Neuts (auto) 2.3 Absolute Nucleated RBC 0.000 Nucleated RBC % (auto) 0.0 PT 25.9 H INR 2.1 H Anion Gap 16 Estim Creat Clear Calc 48.8 Estimated GFR > 60 POC Glucose 105 Random Glucose 108 Lactic Acid 0.9 Calcium 9.2 Magnesium 1.9 Total Bilirubin 0.6 Direct Bilirubin 0.3 AST 13 ALT 5 Alkaline Phosphatase 94 Troponin I High Sens 20.8 H D B-Natriuretic Peptide 347 H Total Protein 7.8 Albumin 3.2 L Influenza Type A (PCR) POSITIVE A Influenza Type B (PCR) NEGATIVE RSV RNA Qual (PCR) NEGATIVE SARS-CoV-2 RNA (RT-PCR) NEGATIVE Imaging Radiologist's Impressions: Impressions Chest X-Ray 05/10/23 14:32 IMPRESSION: 1. Cardiomegaly with mild pulmonary vascular congestion suspected. No change from 05/05/2023. No change in right hilar density from previous study 2. Aortic valve stent in place. Assessment and Plan (1) Influenza A: Status: Acute (2) CHF (congestive heart failure): Qualifiers: Heart failure chronicity: acute on chronic Heart failure type: u nspecified Qualified Code(s): I50.9 - Heart failure, unspecified Status: Acute (3) Shortness of breath: Status: Acute Plan Pt is an 83-year-old female with a PMH significant for?HFpEF, chronic hypoxic respiratory failure on prn home O2, pulmonary hypotension, persistent AFib on Coumadin, hx of CVA, aortic valve replacement, HLD, RA, [id number] type 2 diabetes, hx of uterine cancer s/p total hysterectomy, and anxiety and depression here with acute respiratory failure due to unresolved heart failure and newly diagnosed influenza Acute hypoxic respiratory failure d/t heart failure and influenza -Treat underlying issues, O2 Influeanza--symptomatic treatment and Tamiflu for 5 days, resp isolation UTI--Urine culture from last hospitalization showed, Ecoli and strep viridan, sensitive to Ceftriaxone, started in ED and to be continued for 5 more days Acute on chronic HFpEF--restart IV diuretics and monitor I/O, low salt, monitor weight, continue metoprolol Persistent AFib, rate controlled on metoprolol and continue coumadin for stroke prevention, INR therapeutic Mild increasae in troponin likley from type 2 injury from flu and chf--repeat trop HLD Continue statin Anxiety/depression Continue home meds Type 2 diabetes without Hyperglycemia--Sliding scale insulin DVT Prophylaxis: On Coumadin Admission for at least 2 midnights for management of acute resp failure due to flu and heart failure PT eval before discharge DNR/DNI, verified with pt Quality Stroke Does the patient have a stroke diagnosis?: No VTE Prior VTE?: No VTE Risk Level:: Medical - moderate - high VTE Device Contraindication: Treatment Not Indicated VTE Drug Contraindication: N/A - Med Ordered
[2023-05-10 18:06] LABS: Glucose, Whole Blood 97 mg/dL (60-115)
[2023-05-10] MEDS: Warfarin Sodium 3 MG TABLET PO (18:29)
[2023-05-10 18:35] LABS: Appearance Urine Clear; Color Urine Yellow; Glucose Urine UA Negative (Negative); Leukocyte Esterase Urine Negative (Negative); Nitrite Urine Negative (Negative); Urine Blood Negative (Negative); Urine Ketones Negative (Negative); Urine Protein Trace mg/dL (Neg-Trace)
[2023-05-10 21:25] LABS: Glucose, Whole Blood 90 mg/dL (60-115)
[2023-05-10] MEDS: Melatonin 3 MG TABLET PO (22:44)
[2023-05-10] MEDS: Metoprolol Tartrate 12.5 MG HALFTAB PO (22:44)
[2023-05-10] MEDS: Benzonatate 100 MG CAPSULE 200 MG PO (22:44)
[2023-05-10] MEDS: 0.9 % Sodium Chloride Flush 3 ML SYRINGE IVFLUSH (22:45)
[2023-05-11] VITALS (7 sets, daily range): BP systolic 111–167; BP diastolic 53–60; PULSE 58–70; RESP 18–20; TEMP 36.2–36.8; O2SAT 94–99
[2023-05-11] MEDS: Acetaminophen 325 MG TABLET 650 MG PO ×3 (06:18→22:34)
[2023-05-11 07:20] LABS: Glucose, Whole Blood 124 mg/dL (60-115)
[2023-05-11 07:22] LABS: Anion Gap 9 (12-20); Blood Urea Nitrogen 22 mg/dL (9-16); Calcium 8.8 mg/dL (8.4-10.2); Carbon Dioxide 35 mmol/L (22-29); Chloride 99 mmol/L (96-108); Creatinine Clr Calc Pharmacy 44.9; Estimated Glomerular Filt Rate > 60; Glucose Random 109 mg/dL (60-115); Potassium 3.3 mmol/L (3.3-5.1); Sodium 140 mmol/L (135-145)
[2023-05-11 07:25] LABS: INTERNATIONAL NORM RATIO 2.3 (0.9-1.1); Prothrombin Time 27.6 SEC (11.1-13.3)
[2023-05-11] MEDS: 0.9 % Sodium Chloride Flush 3 ML SYRINGE IVFLUSH ×3 (09:02→21:45)
[2023-05-11] MEDS: Furosemide 40 MG/4 ML VIAL IVPUSH ×2 (09:02→17:28)
[2023-05-11] MEDS: Metoprolol Tartrate 12.5 MG HALFTAB PO ×2 (09:03→21:45)
[2023-05-11] MEDS: Oseltamivir Phosphate 30 MG CAPSULE PO ×2 (09:04→21:44)
[2023-05-11] MEDS: Sertraline HCL 25 MG TABLET PO (09:04)
[2023-05-11] MEDS: Atorvastatin Calcium 10 MG TABLET PO (09:04)
--- NOTE | 2023-05-11 10:46 | P.PNIM_ITS ---
Subjective Subjective Date of Service: 05/11/23 Interval History: f/u on shortness of breath due to influenza, she is feeling better today, no fever and shortness of breath is better. Physical Exam 2 Vital Signs: Vital Signs: Last Vital Signs Temp 97.1 F 05/11/23 07:39 Pulse 59 05/11/23 08:17 Resp 20 05/11/23 07:39 BP 132/57 L 05/11/23 08:17 Pulse Ox 98 05/11/23 08:17 O2 Del Method Nasal Cannula 05/11/23 07:39 O2 Flow Rate 3 05/11/23 07:39 BMI result Body Mass Index 35.7 Const: Other: General: AO X 3, no acute distress Resp: CTA bilateral CVS: S1,S2, Irregularly irregular, 1+ leg edema GI: +BS, NT, no distention Skin: No rash Neuro: motor grossly intact Psych: appropriate affect Objective Data Active Medications Acetaminophen (Acetaminophen 325 Mg Tablet) 650 mg PO Q6H PRN PRN Reason: Pain, Mild (Pain Scale 1-3) Last Admin: 05/10/23 22:50 Dose: 650 mg Documented By: GINGER Al Hydroxide/Mg Hydroxide (Magnesium Hydrox/Alum Hydrox 30 Ml Oral.Susp) 30 ml PO Q4H PRN PRN Reason: Heartburn/Nausea Atorvastatin Calcium (Atorvastatin Calcium 10 Mg Tablet) 10 mg PO DAILY [facility] Last Admin: 05/11/23 09:04 Dose: 10 mg Documented By: EARL Benzonatate (Benzonatate 100 Mg Capsule) 200 mg PO TID PRN PRN Reason: Cough Last Admin: 05/10/23 22:44 Dose: 200 mg Documented By: GINGER Dextrose (Dextrose 50 % 25 Gm/50 Ml Syringe) 25 gm IVPUSH Q15M PRN; Protocol PRN Reason: per Hypoglycemia Standing Ord. Furosemide (Furosemide 40 Mg/4 Ml Vial) 40 mg IVPUSH BID@0900,1800 [facility]; Protocol Last Admin: 05/11/23 09:02 Dose: 40 mg Documented By: EARL Glucose (Glucose Gel 15 Gm Gel..Gram.) 15 gm PO Q15M PRN; Protocol PRN Reason: per Hypoglycemia Standing Ord. Ceftriaxone Sodium 1 gm/ (Sodium Chloride) 50 mls @ 100 mls/hr IV Q24H [facility] Stop: 05/15/23 15:29 Insulin Human Lispro (Insulin Lispro 100 Unit/Ml 3 Ml Vial) 0 unit SUBCUT QIDACHS [facility]; Protocol Last Admin: 05/11/23 07:28 Dose: Not Given Documented By: EARL Non-Admin Reason: No Insulin Coverage Magnesium Hydroxide (Milk Of Magnesia 30 Ml Oral.Susp) 30 ml PO DAILY PRN PRN Reason: Constipation Melatonin (Melatonin 3 Mg Tablet) 3 mg PO BEDTIME PRN PRN Reason: Insomnia Last Admin: 05/10/23 22:44 Dose: 3 mg Documented By: GINGER Metoprolol Tartrate (Metoprolol Tartrate 12.5 Mg Halftab) 12.5 mg PO BID [facility]; Protocol Last Admin: 05/11/23 09:03 Dose: 12.5 mg Documented By: EARL Ondansetron HCl (Ondansetron Hcl 4 Mg/2 Ml Vial) 4 mg IVPUSH Q8H PRN PRN Reason: Nausea and Vomiting Oseltamivir Phosphate (Oseltamivir Phosphate 30 Mg Capsule) 30 mg PO BID [facility] Stop: 05/15/23 09:01 Last Admin: 05/11/23 09:04 Dose: 30 mg Documented By: EARL Sertraline HCl (Sertraline Hcl 25 Mg Tablet) 25 mg PO DAILY [facility] Last Admin: 05/11/23 09:04 Dose: 25 mg Documented By: EARL Sodium Chloride (0.9 % Sodium Chloride Flush 3 Ml Syringe) [facility] Last Admin: 05/11/23 09:02 Dose: 3 ml Documented By: EARL Vitamin D (Cholecalciferol (Vitamin D3) 25 Mcg Tablet) 125 mcg PO [facility] Warfarin Sodium (Warfarin Sodium 3 Mg Tablet) 3 mg PO DAILY@1800 [facility] Last Admin: 05/10/23 18:29 Dose: 3 mg Documented By: ELEANOR Labs 05/10/23 14:03 05/11/23 06:34 Labs: Laboratory Results - last 24 hr 05/10/23 05/10/23 05/10/23 13:35 14:03 17:52 MCV 87.4 MCH 27.4 MCHC 31.3 RDW 15.8 Plt Count 140 L MPV 9.3 L Immature Gran % (Auto) 0.3 Neut % (Auto) 70.4 Lymph % (Auto) 13.9 L [place] % (Auto) 14.5 H Eos % (Auto) 0.6 Baso % (Auto) 0.3 Lymph # (Auto) 0.5 L [place] # (Auto) 0.5 Eos # (Auto) 0.0 Baso # (Auto) 0.0 Abs Immat Gran (auto) 0.01 Absolute Neuts (auto) 2.3 Absolute Nucleated RBC 0.000 Nucleated RBC % (auto) 0.0 Hold Purple Top PT 25.9 H INR 2.1 H Anion Gap 16 Estim Creat Clear Calc 48.8 Estimated GFR > 60 POC Glucose 105 Random Glucose 108 Lactic Acid 0.9 Calcium 9.2 Magnesium 1.9 Total Bilirubin 0.6 Direct Bilirubin 0.3 AST 13 ALT 5 Alkaline Phosphatase 94 Troponin I High Sens 20.8 H D B-Natriuretic Peptide 347 H Total Protein 7.8 Albumin 3.2 L Urine Color Yellow Urine Appearance Clear Urine pH 6.0 Ur Specific [place] 1.020 Urine Protein Trace Urine Glucose (UA) Negative Urine Ketones Negative Urine Blood Negative Urine Nitrite Negative Ur Leukocyte Esterase Negative Influenza Type A (PCR) POSITIVE A Influenza Type B (PCR) NEGATIVE RSV RNA Qual (PCR) NEGATIVE SARS-CoV-2 RNA (RT-PCR) NEGATIVE 05/10/23 05/10/23 05/11/23 17:58 21:15 06:34 MCV MCH MCHC RDW Plt Count MPV Immature Gran % (Auto) Neut % (Auto) Lymph % (Auto) [place] % (Auto) Eos % (Auto) Baso % (Auto) Lymph # (Auto) [place] # (Auto) Eos # (Auto) Baso # (Auto) Abs Immat Gran (auto) Absolute Neuts (auto) Absolute Nucleated RBC Nucleated RBC % (auto) Hold Purple Top PT 27.6 H INR 2.3 H Anion Gap 9 L Estim Creat Clear Calc 44.9 Estimated GFR > 60 POC Glucose 97 90 Random Glucose 109 Lactic Acid Calcium 8.8 Magnesium Total Bilirubin Direct Bilirubin AST ALT Alkaline Phosphatase Troponin I High Sens B-Natriuretic Peptide Total Protein Albumin Urine Color Urine Appearance Urine pH Ur Specific [place] Urine Protein Urine Glucose (UA) Urine Ketones Urine Blood Urine Nitrite Ur Leukocyte Esterase Influenza Type A (PCR) Influenza Type B (PCR) RSV RNA Qual (PCR) SARS-CoV-2 RNA (RT-PCR) 05/11/23 05/11/23 06:58 07:13 MCV MCH MCHC RDW Plt Count MPV Immature Gran % (Auto) Neut % (Auto) Lymph % (Auto) [place] % (Auto) Eos % (Auto) Baso % (Auto) Lymph # (Auto) [place] # (Auto) Eos # (Auto) Baso # (Auto) Abs Immat Gran (auto) Absolute Neuts (auto) Absolute Nucleated RBC Nucleated RBC % (auto) Hold Purple Top SEE NOTE PT INR Anion Gap Estim Creat Clear Calc Estimated GFR POC Glucose 124 H Random Glucose Lactic Acid Calcium Magnesium Total Bilirubin Direct Bilirubin AST ALT Alkaline Phosphatase Troponin I High Sens B-Natriuretic Peptide Total Protein Albumin Urine Color Urine Appearance Urine pH Ur Specific [place] Urine Protein Urine Glucose (UA) Urine Ketones Urine Blood Urine Nitrite Ur Leukocyte Esterase Influenza Type A (PCR) Influenza Type B (PCR) RSV RNA Qual (PCR) SARS-CoV-2 RNA (RT-PCR) Assessment and Plan (1) Influenza A: Status: Acute (2) CHF (congestive heart failure): Status: Acute Plan Pt is an 83-year-old female with a PMH significant for?HFpEF, chronic hypoxic respiratory failure on prn home O2, pulmonary hypotension, persistent AFib on Coumadin, hx of CVA, aortic valve replacement, HLD, RA, [id number] type 2 diabetes, hx of uterine cancer s/p total hysterectomy, and anxiety and depression here with acute respiratory failure due to unresolved heart failure and newly diagnosed influenza Acute hypoxic respiratory failure d/t heart failure and influenza -Treat underlying issues, O2 and wean as colette Influeanza--symptomatic treatment and Tamiflu for 5 days, resp isolation UTI--Urine culture from last hospitalization showed, Ecoli and strep viridan, sensitive to Ceftriaxone, started in ED on 05/09 and to be continued for 5 more days Acute on chronic HFpEF--restart IV diuretics and monitor I/O, low salt, monitor weight, continue metoprolol Persistent AFib, rate controlled on metoprolol and continue coumadin for stroke prevention, INR therapeutic Mild increasae in troponin likley from type 2 injury from flu and chf--repeat trop HLD Continue statin Anxiety/depression Continue home meds Type 2 diabetes without Hyperglycemia--Sliding scale insulin DVT Prophylaxis: On Coumadin Admission for at least 2 midnights for management of acute resp failure due to flu and heart failure PT recommends home with services when ready DNR/DNI, verified with pt Quality Stroke Does the patient have a stroke diagnosis?: No VTE Prior VTE?: No VTE Risk Level:: Medical - moderate - high VTE Device Contraindication: Treatment Not Indicated VTE Drug Contraindication: N/A - Med Ordered
--- NOTE | 2023-05-11 11:06 | MHC.CM.PN ---
IMM 05/10. Pt was readmitted, she lives at home with her /HCP (who is also currently hospitalized). Pt uses a walker, and has a shower bench. Pt will need assistance with transport home. HCP on file and verified. DCP: Return home with new NA services. PCP: Dr. Gu Po
[2023-05-11 11:56] LABS: Glucose, Whole Blood 121 mg/dL (60-115)
[2023-05-11] MEDS: cefTRIAXone sodium 1 GM in 0.9 % Sodium Chloride 50 ML IV (15:09)
--- NOTE | 2023-05-11 15:38 | HO.WOUND ---
Wound Consult: Initial 83yr old?[place] admitted [place] [facility] [place] - See progress notes and H&P for detailed history.? Wound consult placed for BLE and Coccyx.? Patient agreeable to assessment and photo documentation.? Bilateral Legs assessed - evidence of previsou swelling - dry skin noted - no wounds noted at this time. Bilateral Heels assessed for intact blanchable redness patient reports tenderness - foam dressings applied and off loaded with pillows. bilateral buttock and posterior thighs and sacrum assessed for red pink light purple intact tissue - remains blanchable throughout - light purple coloring indicative of chronic moisture - recommend barrier cream and to off load pressure and frequent checks for incontinence care needs. Sacrum, Coccyx, Bilateral Buttock and Posterior thigh / ischial area Left Heel Right Heel Recommendations: 1. Turn and Reposition every 2 hours and as needed for patient comfort.? Use pillows or wedges to support off loading positions. 2. Off Load all bony prominences with use of pillows and heel boots if needed.? Apply Preventative foams where needed. ? 3. Monitor for incontinence and moisture control, use barrier creams when needed for prevention and treatment. 4. Provide adequate and supplemental nutrition.? 5. Order low air loss mattress. 6. Maintain blood glucose levels per Providers order. 7. Bilateral Heels - Apply foam dressing peel back and assess Q shift - change every 3 days and PRN. Off Load pressure with use of pillows. 8. Sacrum, Buttock and Perineal area - Cleanse with Ph balance wash dry well. Apply barrier cream to affected area, reapply after incontinence episodes. Re-consult wound care Nurse for wound deterioration or wound changes.
[2023-05-11 16:01] LABS: Glucose, Whole Blood 133 mg/dL (60-115)
[2023-05-11] MEDS: ondansetron HCL 4 MG/2 ML VIAL IVPUSH (16:22)
[2023-05-11] MEDS: Warfarin Sodium 3 MG TABLET PO (17:29)
[2023-05-11] MEDS: Melatonin 3 MG TABLET PO (21:45)
[2023-05-11 22:15] LABS: Glucose, Whole Blood 109 mg/dL (60-115)
[2023-05-12 04:00] VITALS: BP 147/68; PULSE 64; RESP 20; TEMP 36.2; O2SAT 95
[2023-05-12] MEDS: Acetaminophen 325 MG TABLET 650 MG PO ×3 (06:09→21:07)
[2023-05-12] MEDS: Benzonatate 100 MG CAPSULE 200 MG PO ×2 (06:09→21:06)
[2023-05-12 07:10] LABS: Glucose, Whole Blood 92 mg/dL (60-115)
[2023-05-12 07:16] LABS: INTERNATIONAL NORM RATIO 2.4 (0.9-1.1); Prothrombin Time 29.7 SEC (11.1-13.3)
[2023-05-12 07:23] LABS: Anion Gap 14 (12-20); Blood Urea Nitrogen 26 mg/dL (9-16); Calcium 8.5 mg/dL (8.4-10.2); Carbon Dioxide 33 mmol/L (22-29); Chloride 100 mmol/L (96-108); Creatinine Clr Calc Pharmacy 46.4; Estimated Glomerular Filt Rate > 60; Glucose Random 83 mg/dL (60-115); Potassium 3.5 mmol/L (3.3-5.1); Sodium 143 mmol/L (135-145)
[2023-05-12 07:54] VITALS: BP 139/68; PULSE 54; RESP 20; TEMP 36.3; O2SAT 96
[2023-05-12] MEDS: Oseltamivir Phosphate 30 MG CAPSULE PO ×2 (08:36→21:07)
[2023-05-12] MEDS: Atorvastatin Calcium 10 MG TABLET PO (08:36)
[2023-05-12] MEDS: Sertraline HCL 25 MG TABLET PO (08:36)
[2023-05-12] MEDS: Furosemide 40 MG/4 ML VIAL IVPUSH ×2 (08:36→17:04)
[2023-05-12] MEDS: Metoprolol Tartrate 12.5 MG HALFTAB PO ×2 (08:36→21:07)
[2023-05-12] MEDS: 0.9 % Sodium Chloride Flush 3 ML SYRINGE IVFLUSH ×3 (08:37→21:07)
[2023-05-12 11:01] LABS: Glucose, Whole Blood 117 mg/dL (60-115)
[2023-05-12 11:19] VITALS: BP 128/55; PULSE 59; RESP 20; TEMP 36.7; O2SAT 97
--- NOTE | 2023-05-12 11:27 | HO.PM.IMPN ---
Subjective Subjective Date of Service: 05/12/23 Interval History: f/u on shortness of breath due to influenza, her breathing is about the some, she is now complaining left ankle pain, radiating to the hip and further states that she slipped from a recliner the other day and only started having pain today.. She did fine with PT yesterday, and transfer Physical Exam Vital Signs: Vital Signs: Last Vital Signs Temp 98.0 F 05/12/23 11:19 Pulse 59 05/12/23 11:19 Resp 20 05/12/23 11:19 BP 128/55 L 05/12/23 11:19 Pulse Ox 97 05/12/23 11:19 O2 Del Method Room Air 05/12/23 11:19 O2 Flow Rate 3 05/12/23 07:54 BMI result Body Mass Index 35.7 Const: Other: General: AO X 3, no acute distress Resp: rales colt CVS: S1,S2, Irregularly irregular, 1+ leg edema GI: +BS, NT, no distention Skin: No rash Neuro: motor grossly intact Psych: appropriate affect Objective Data Active Medications Acetaminophen (Acetaminophen 325 Mg Tablet) 650 mg PO Q6H PRN PRN Reason: Pain, Mild (Pain Scale 1-3) Last Admin: 05/12/23 06:09 Dose: 650 mg Documented By: TAJ Al Hydroxide/Mg Hydroxide (Magnesium Hydrox/Alum Hydrox 30 Ml Oral.Susp) 30 ml PO Q4H PRN PRN Reason: Heartburn/Nausea Atorvastatin Calcium (Atorvastatin Calcium 10 Mg Tablet) 10 mg PO DAILY [facility] Last Admin: 05/12/23 08:36 Dose: 10 mg Documented By: EARL Benzonatate (Benzonatate 100 Mg Capsule) 200 mg PO TID PRN PRN Reason: Cough Last Admin: 05/12/23 06:09 Dose: 200 mg Documented By: TAJ Dextrose (Dextrose 50 % 25 Gm/50 Ml Syringe) 25 gm IVPUSH Q15M PRN; Protocol PRN Reason: per Hypoglycemia Standing Ord. Furosemide (Furosemide 40 Mg/4 Ml Vial) 40 mg IVPUSH BID@0900,1800 [facility]; Protocol Last Admin: 05/12/23 08:36 Dose: 40 mg Documented By: EARL Glucose (Glucose Gel 15 Gm Gel..Gram.) 15 gm PO Q15M PRN; Protocol PRN Reason: per Hypoglycemia Standing Ord. Ceftriaxone Sodium 1 gm/ (Sodium Chloride) 50 mls @ 100 mls/hr IV Q24H [facility] Stop: 05/15/23 15:29 Last Infusion: 05/11/23 16:23 Dose: Infused Documented By: EARL Insulin Human Lispro (Insulin Lispro 100 Unit/Ml 3 Ml Vial) 0 unit SUBCUT QIDACHS [facility]; Protocol Last Admin: 05/12/23 11:10 Dose: Not Given Documented By: EARL Non-Admin Reason: No Insulin Coverage Magnesium Hydroxide (Milk Of Magnesia 30 Ml Oral.Susp) 30 ml PO DAILY PRN PRN Reason: Constipation Melatonin (Melatonin 3 Mg Tablet) 3 mg PO BEDTIME PRN PRN Reason: Insomnia Last Admin: 05/11/23 21:45 Dose: 3 mg Documented By: TAJ Metoprolol Tartrate (Metoprolol Tartrate 12.5 Mg Halftab) 12.5 mg PO BID [facility]; Protocol Last Admin: 05/12/23 08:36 Dose: 12.5 mg Documented By: EARL Ondansetron HCl (Ondansetron Hcl 4 Mg/2 Ml Vial) 4 mg IVPUSH Q8H PRN PRN Reason: Nausea and Vomiting Last Admin: 05/11/23 16:22 Dose: 4 mg Documented By: EARL Oseltamivir Phosphate (Oseltamivir Phosphate 30 Mg Capsule) 30 mg PO BID [facility] Stop: 05/15/23 09:01 Last Admin: 05/12/23 08:36 Dose: 30 mg Documented By: EARL Sertraline HCl (Sertraline Hcl 25 Mg Tablet) 25 mg PO DAILY [facility] Last Admin: 05/12/23 08:36 Dose: 25 mg Documented By: EARL Sodium Chloride (0.9 % Sodium Chloride Flush 3 Ml Syringe) [address] [facility] Last Admin: 05/12/23 08:37 Dose: 3 ml Documented By: EARL Vitamin D (Cholecalciferol (Vitamin D3) 25 Mcg Tablet) 125 mcg PO [place] [facility] Warfarin Sodium (Warfarin Sodium 3 Mg Tablet) 3 mg PO DAILY@1800 [facility] Last Admin: 05/11/23 17:29 Dose: 3 mg Documented By: EARL Labs 05/10/23 14:03 05/12/23 05:40 Labs: Laboratory Results - last 24 hr 05/11/23 05/11/23 05/11/23 11:50 15:57 21:25 Hold Purple Top PT INR Anion Gap Estim Creat Clear Calc Estimated GFR POC Glucose 121 H 133 H 109 Random Glucose Calcium 05/12/23 05/12/23 05/12/23 05:40 07:06 10:57 Hold Purple Top SEE NOTE PT 29.7 H INR 2.4 H Anion Gap 14 Estim Creat Clear Calc 46.4 Estimated GFR > 60 POC Glucose 92 117 H Random Glucose 83 Calcium 8.5 Microbiology Microbiology Results: Microbiology 05/10/23 14:05 Blood Culture - Preliminary Blood - Venous No growth after 24 hours. 05/10/23 14:03 Blood Culture - Preliminary Blood - Venous No growth after 24 hours. Assessment and Plan (1) Influenza A: Status: Acute (2) CHF (congestive heart failure): Status: Acute Plan Pt is an 83-year-old female with a PMH significant for?HFpEF, chronic hypoxic respiratory failure on prn home O2, pulmonary hypotension, persistent AFib on Coumadin, hx of CVA, aortic valve replacement, HLD, RA, [id number] type 2 diabetes, hx of uterine cancer s/p total hysterectomy, and anxiety and depression here with acute respiratory failure due to unresolved heart failure and newly diagnosed influenza Acute hypoxic respiratory failure d/t heart failure and influenza -Treat underlying issues, O2 and wean as colette Influeanza--symptomatic treatment and Tamiflu for 5 days, resp isolation UTI--Urine culture from last hospitalization showed, Ecoli and strep viridan, sensitive to Ceftriaxone, started in ED on 05/09 and to be continued for 5 more days Acute on chronic HFpEF--continue IV diuretics and monitor I/O, low salt, monitor weight, continue metoprolol. Change to PO Lasix tomorrow Persistent AFib, rate controlled on metoprolol and continue coumadin for stroke prevention, INR therapeutic Mild increasae in troponin likley from type 2 injury from flu and chf--repeat trop HLD Continue statin Anxiety/depression Continue home meds Type 2 diabetes without Hyperglycemia--Sliding scale insulin Ankle, hip pain,--Xray, DVT Prophylaxis: On Coumadin Admission for at least 2 midnights for management of acute resp failure due to flu and heart failure PT to reassess DNR/DNI, verified with pt Quality Stroke Does the patient have a stroke diagnosis?: No VTE Prior VTE?: No VTE Risk Level:: Medical - moderate - high VTE Device Contraindication: Treatment Not Indicated VTE Drug Contraindication: N/A - Med Ordered
[2023-05-12] MEDS: cefTRIAXone sodium 1 GM in 0.9 % Sodium Chloride 50 ML IV (15:05)
[2023-05-12 15:11] VITALS: BP 140/65; PULSE 58; RESP 18; TEMP 36.8; O2SAT 99
[2023-05-12 15:40] LABS: Glucose, Whole Blood 169 mg/dL (60-115)
[2023-05-12] MEDS: Insulin Lispro 100 UNIT/ML 3 ML VIAL SUBCUT (17:04)
[2023-05-12] MEDS: Warfarin Sodium 3 MG TABLET PO (17:32)
[2023-05-12 18:52] VITALS: BP 150/67; PULSE 56; RESP 18; TEMP 36; O2SAT 99
[2023-05-12 19:53] LABS: Glucose, Whole Blood 86 mg/dL (60-115)
[2023-05-12] MEDS: Melatonin 3 MG TABLET PO (21:06)
[2023-05-12 23:26] VITALS: BP 149/64; PULSE 75; RESP 18; TEMP 36.4; O2SAT 97
[2023-05-13 03:22] VITALS: BP 141/71; PULSE 65; RESP 18; TEMP 36; O2SAT 98
[2023-05-13] MEDS: Acetaminophen 325 MG TABLET 650 MG PO ×3 (04:25→20:57)
[2023-05-13 06:00] VITALS: BMI 35.0
[2023-05-13 06:56] LABS: Glucose, Whole Blood 87 mg/dL (60-115)
[2023-05-13 07:20] VITALS: BP 139/63; PULSE 66; RESP 20; TEMP 36.3; O2SAT 96
[2023-05-13 07:22] LABS: INTERNATIONAL NORM RATIO 2.7 (0.9-1.1); Prothrombin Time 32.5 SEC (11.1-13.3)
[2023-05-13 07:39] LABS: Anion Gap 10 (12-20); Blood Urea Nitrogen 28 mg/dL (9-16); Calcium 8.8 mg/dL (8.4-10.2); Carbon Dioxide 37 mmol/L (22-29); Chloride 98 mmol/L (96-108); Creatinine Clr Calc Pharmacy 50.7; Estimated Glomerular Filt Rate > 60; Glucose Random 89 mg/dL (60-115); Potassium 3.9 mmol/L (3.3-5.1); Sodium 141 mmol/L (135-145)
[2023-05-13] MEDS: Sertraline HCL 25 MG TABLET PO (08:21)
[2023-05-13] MEDS: Furosemide 40 MG/4 ML VIAL IVPUSH ×2 (08:21→17:38)
[2023-05-13] MEDS: Atorvastatin Calcium 10 MG TABLET PO (08:21)
[2023-05-13] MEDS: Metoprolol Tartrate 12.5 MG HALFTAB PO ×2 (08:21→20:30)
[2023-05-13] MEDS: Oseltamivir Phosphate 30 MG CAPSULE PO ×2 (08:21→20:30)
[2023-05-13 08:48] VITALS: BP 139/63; PULSE 66; O2SAT 96
[2023-05-13 10:53] VITALS: BP 125/61; PULSE 65; RESP 20; TEMP 36.3; O2SAT 97
[2023-05-13 11:10] LABS: Glucose, Whole Blood 151 mg/dL (60-115)
[2023-05-13] MEDS: Insulin Lispro 100 UNIT/ML 3 ML VIAL SUBCUT (11:22)
--- NOTE | 2023-05-13 11:38 | P.DS_ITS ---
DS: Providers Provider Date of Service: 05/16/23 Date of admission: 05/10/23 16:35 Primary care physician: Riccardo Page MD Consults: 05/11/23 04:37 Consult to Wound Care Routine Reason for consultation: discoloration to BLE, and discoloration to coccyx DS: Diagnosis Discharge Diagnosis (1) Influenza A: Status: Acute (2) CHF (congestive heart failure): Status: Acute DS: Summary Hospital Course Hospital Course: admission HPI Chief Complaint: Shortness of breath Pt is an 83-year-old female with a PMH significant for HFpEF, chronic hypoxic respiratory failure on prn home O2, pulmonary hypERtension, persistent AFib on Coumadin, hx of CVA, aortic valve replacement, HLD, RA, [id number] type 2 diabetes, hx of uterine cancer s/p total hysterectomy, and anxiety and depression who presents to the ED with shortness of breath. She was admitted to the hospital from 05/04 to 05/07 for management of CHF. She went home for less than 24 hours. She woke up this morning short of breath and having fever and chills. Work up has revealed positive influenza and heart failure. She is given IV Lasix and Tamiflu. She feels more comfortable now. She lives at home with who is currently hospitalized. hospital course; patient presented to the hospital less than 24 hours after discharge following treatment for heart failure. She presented back with shortness of breath and fever and found to have influenza and evidence of residual CHF. Additionally, she was noted to have urinary tract infection based on a culture during the prior hospitalization. She was admitted and treated with IV antibiotics for the urinary tract infection. For the influenza she was treated with bronchodilators and Tamiflu oxygen. CHF was treated with IV Lasix. She no longer has fever and her breathing is comfortable. She reports that she has slipped out of recliner before coming to the hospital and was having some left ankle pain. X-ray of the ankle the knee and hip were unremarkable. Physical therapy saw her initially and recommended return to home with VNA services a on re-evaluation the patient was recommended for short term rehab and is now agreable. It is of note that she has completed course of antibiotics for UTI and Tamiflu for influenza, she presently has no fever, WBC within normal. CXR today ? LL infiltrate maybe residual from influeza, and has completed 5 days of Abx, no fever and normal WBC no further treatment Time Attestation Discharge Coordination Time (in mins): 45 minute Quality: Safe Use of Opioids Does Pt have an Active Cancer Diagnosis on the Problem List?: No Quality: Stroke Does the patient have a stroke diagnosis?: No Physical Exam Vital Signs: Vital Signs: Selected Entries 05/16/23 11:28 Temperature 97.1 F Pulse Rate 68 Respiratory Rate 20 Blood Pressure 142/71 H Pulse Oximetry 98 Oxygen Delivery Me thod Nasal Cannula Oxygen Flow Rate 3 General: AO X 3, no acute distress Resp: CTA bilateral CVS: S1,S2,RRR GI: +BS, NT, no distention Skin: No rash Neuro: motor grossly intact Psych: appropriate affect DS: Data Data Completed and Pending Completed studies during hospitalization [Text1]: Procedures Transfusion of Nonautologous Red Blood Cells into Peripheral Vein, Percutaneous Approach (01/01/21) Labs on day of discharge: Laboratory Results - last 24 hr 05/12/23 05/12/23 05/13/23 15:31 19:49 06:52 Hold Purple Top SEE NOTE PT 32.5 H INR 2.7 H Sodium 141 Potassium 3.9 Chloride 98 Carbon Dioxide 37 H Anion Gap 10 L BUN 28 H Creatinine 0.76 Estim Creat Clear Calc 50.7 Estimated GFR > 60 POC Glucose 169 H 86 87 Random Glucose 89 Calcium 8.8 05/13/23 11:06 Hold Purple Top PT INR Sodium Potassium Chloride Carbon Dioxide Anion Gap BUN Creatinine Estim Creat Clear Calc Estimated GFR POC Glucose 151 H Random Glucose Calcium Preliminary micro results at discharge 05/10/23 14:05 Blood Culture - Preliminary Blood - Venous No growth after 48 hours. 05/10/23 14:03 Blood Culture - Preliminary Blood - Venous No growth after 48 hours. Discharge Plan Discharge Anticipated Discharge Date/Time: 05/13/23 11:43 Patient Disposition: Xfer SNF Discharge Diagnosis: Influenza, UTI, heart failure Referrals: [facility] [Outside] - 1 Week Po,Riccardo Oropeza MD [Primary Care Provider] - 1 Week Discharge Medications: Continued (DME) Hospital bed See Rx Instructions .Route .MEDSUPPLY Qty: 1 0RF Rx Instructions: As directed metoprolol tartrate 25 mg tablet 12.5 mg PO BID 90 Days Qty: 90 2RF (DME) hospital mattress See Rx Instructions .Route .MEDSUPPLY Qty: 1 0RF Rx Instructions: As directed (DME) blood-glucose meter Kit See Rx Instructions .ROUTE .MEDSUPPLY Qty: 1 0RF Rx Instructions: As directed check the blood sugar once a day (DME) OneTouch Ultra Test Strip See Rx Instructions .ROUTE .MEDSUPPLY Qty: 100 3RF Rx Instructions: As directed check the blood sugar once a day (DME) lancets Misc See Rx Instructions .ROUTE .MEDSUPPLY Qty: 100 0RF Rx Instructions: As directed check the blood sugar once a day simvastatin 20 mg tablet 20 mg PO DAILY Qty: 90 3RF sertraline [Zoloft] 25 mg tablet 25 mg PO DAILY Qty: 90 0RF (DME) prothrombin time test strips Strip See Rx Instructions .Route Qty: 48 12RF Rx Instructions: As directed (DME) INR strips ACELIS See Rx Instructions .Route .MEDSUPPLY Qty: 60 12RF Rx Instructions: As directed acetaminophen 500 mg Tablet 500 mg PO BEDTIME cholecalciferol (vitamin D3) 125 mcg (5,000 unit) Tablet 125 mcg PO PICKARD warfarin [Jantoven] 3 mg Tablet 3 mg PO DAILY@1800 Qty: 30 0RF (DME) blood-glucose meter [OneTouch Ultra2 Meter] Kit See Rx Instructions .ROUTE .MEDSUPPLY Qty: 1 0RF Rx Instructions: As directed check the blood sugar once a day (DME) blood sugar diagnostic Strip See Rx Instructions .ROUTE .MEDSUPPLY Qty: 250 3RF Rx Instructions: Twice a day acetaminophen 500 mg capsule 500 mg PO Q6H PRN (Reason: Pain) Changed furosemide 40 mg tablet 40 mg PO DAILY Qty: 30 0RF Rx Instructions: or as directed Discharge Orders: Discharge Order (Routine); Ordered 05/13/23 Ordered By: [facility] Diet: Diabetic diet Activity on Discharge: As tolerated Stand Alone Forms: Patient Portal Discharge page Care Plan Goals: recovering from influenza and UTI. Health Concerns: influenza UTI high failure Plan of Treatment: You are to participate in rehab Assessment: see above
--- NOTE | 2023-05-13 14:49 | PC.RT ---
Order for RT home oxygen eval noted. Pt was placed on RA at rest in room from 2lpm n/c x 10 minutes. Beginning spo2 92%/ HR 58. Pt ambulated with walker and [employer] at side x 20 feet to door. Noted spo2 on ra 80%, rr 27, inc WOB noted. O2 was placed at 4 lpm, pt was able to rest and recover in 2-3 mins. Pt returned to bed on 4 lpm, repositioned by [employer] and weaned to 2 lpm n/c by RT. Dr. Loza made aware
[2023-05-13 15:56] VITALS: BP 144/65; PULSE 86; RESP 20; TEMP 36.2; O2SAT 98
--- NOTE | 2023-05-13 15:57 | MHC.CM.PN ---
Addendum entered by Kendra Daly 05/13/23 16:25: Call received from Emily who states pts Cecy is going to call Yakelin to discuss rehab with her, they will let us know rehab options after they talk with her. Original Note: Pt was going to D/C home today with yaneth Branden LINDAA, but pt was unable to be weaned from O2. This CM called pts step daughter Emily to inform. Pt would benefit from going to STR prior to discharging home. Pts family will discuss together and with Yakelin. Emily mentioned that [facility] would not be an option as Yakelin had a terrible experience there.
[2023-05-13 16:08] LABS: Glucose, Whole Blood 111 mg/dL (60-115)
--- NOTE | 2023-05-13 16:13 | P.PNIM_ITS ---
Subjective Subjective Date of Service: 05/14/23 Interval History: f/u on uti, influenza and heart failure. Her symptoms are far better, yet she desaturates easily with minimal effort Physical Exam 2 Vital Signs: Vital Signs: Last Vital Signs Temp 97.2 F 05/13/23 15:56 Pulse 86 05/13/23 15:56 Resp 20 05/13/23 15:56 BP 144/65 H 05/13/23 15:56 Pulse Ox 98 05/13/23 15:56 O2 Del Method Nasal Cannula 05/13/23 15:56 O2 Flow Rate 2 05/13/23 15:56 BMI result Body Mass Index 35.0 Objective Data Active Medications Acetaminophen (Acetaminophen 325 Mg Tablet) 650 mg PO Q6H PRN PRN Reason: Pain, Mild (Pain Scale 1-3) Last Admin: 05/13/23 15:36 Dose: 650 mg Documented By: RUSS Al Hydroxide/Mg Hydroxide (Magnesium Hydrox/Alum Hydrox 30 Ml Oral.Susp) 30 ml PO Q4H PRN PRN Reason: Heartburn/Nausea Atorvastatin Calcium (Atorvastatin Calcium 10 Mg Tablet) 10 mg PO DAILY [facility] Last Admin: 05/13/23 08:21 Dose: 10 mg Documented By: ANJEL Benzonatate (Benzonatate 100 Mg Capsule) 200 mg PO TID PRN PRN Reason: Cough Last Admin: 05/12/23 21:06 Dose: 200 mg Documented By: UNA-AGGIE Dextrose (Dextrose 50 % 25 Gm/50 Ml Syringe) 25 gm IVPUSH Q15M PRN; Protocol PRN Reason: per Hypoglycemia Standing Ord. Furosemide (Furosemide 40 Mg/4 Ml Vial) 40 mg IVPUSH BID@0900,1800 [facility]; Protocol Last Admin: 05/13/23 08:21 Dose: 40 mg Documented By: ANJEL Glucose (Glucose Gel 15 Gm Gel..Gram.) 15 gm PO Q15M PRN; Protocol PRN Reason: per Hypoglycemia Standing Ord. Ceftriaxone Sodium 1 gm/ (Sodium Chloride) 50 mls @ 100 mls/hr IV Q24H KIKI Stop: 05/15/23 15:29 Last Admin: 05/13/23 11:56 Dose: Not Given Documented By: ANJEL Non-Admin Reason: pt being d/c'ed home around 1400 Insulin Human Lispro (Insulin Lispro 100 Unit/Ml 3 Ml Vial) 0 unit SUBCUT QIDACHS [facility]; Protocol Last Admin: 05/13/23 11:22 Dose: 2 unit Documented By: ANJEL Magnesium Hydroxide (Milk Of Magnesia 30 Ml Oral.Susp) 30 ml PO DAILY PRN PRN Reason: Constipation Melatonin (Melatonin 3 Mg Tablet) 3 mg PO BEDTIME PRN PRN Reason: Insomnia Last Admin: 05/12/23 21:06 Dose: 3 mg Documented By: QUIANA Metoprolol Tartrate (Metoprolol Tartrate 12.5 Mg Halftab) 12.5 mg PO BID [facility]; Protocol Last Admin: 05/13/23 08:21 Dose: 12.5 mg Documented By: ANJEL Ondansetron HCl (Ondansetron Hcl 4 Mg/2 Ml Vial) 4 mg IVPUSH Q8H PRN PRN Reason: Nausea and Vomiting Last Admin: 05/11/23 16:22 Dose: 4 mg Documented By: EARL Oseltamivir Phosphate (Oseltamivir Phosphate 30 Mg Capsule) 30 mg PO BID [facility] Stop: 05/15/23 09:01 Last Admin: 05/13/23 08:21 Dose: 30 mg Documented By: ANJEL Sertraline HCl (Sertraline Hcl 25 Mg Tablet) 25 mg PO DAILY [facility] Last Admin: 05/13/23 08:21 Dose: 25 mg Documented By: ANJEL Sodium Chloride (0.9 % Sodium Chloride Flush 3 Ml Syringe) [facility] Last Admin: 05/13/23 13:25 Dose: Not Given Documented By: ANJEL Non-Admin Reason: See Note Vitamin D (Cholecalciferol (Vitamin D3) 25 Mcg Tablet) 125 mcg PO PICKARD [facility] Warfarin Sodium (Warfarin Sodium 3 Mg Tablet) 3 mg PO DAILY@1800 [facility] Last Admin: 05/12/23 17:32 Dose: 3 mg Documented By: EARL Labs 05/10/23 14:03 05/13/23 06:52 Labs: Laboratory Results - last 24 hr 05/12/23 05/13/23 05/13/23 19:49 06:52 11:06 Hold Purple Top SEE NOTE PT 32.5 H INR 2.7 H Anion Gap 10 L Estim Creat Clear Calc 50.7 Estimated GFR > 60 POC Glucose 86 87 151 H Random Glucose 89 Calcium 8.8 05/13/23 15:55 Hold Purple Top PT INR Anion Gap Estim Creat Clear Calc Estimated GFR POC Glucose 111 Random Glucose Calcium Microbiology Microbiology Results: Microbiology 05/10/23 14:05 Blood Culture - Preliminary Blood - Venous No growth after 48 hours. 05/10/23 14:03 Blood Culture - Preliminary Blood - Venous No growth after 48 hours. Assessment and Plan (1) Influenza A: Status: Acute (2) CHF (congestive heart failure): Status: Acute Plan Pt is an 83-year-old female with a PMH significant for?HFpEF, chronic hypoxic respiratory failure not on home O2, pulmonary hypertension, persistent AFib on Coumadin, hx of CVA, aortic valve replacement, HLD, RA, [id number] type 2 diabetes, hx of uterine cancer s/p total hysterectomy, and anxiety and depression here with acute respiratory failure due to unresolved heart failure and newly diagnosed influenza Acute hypoxic respiratory failure d/t heart failure and influenza -Treat underlying issues, O2 and wean as colette -home O2 eval Influeanza--symptomatic treatment and Tamiflu for 5 days, resp isolation UTI--Urine culture from last hospitalization showed, Ecoli and strep viridan, sensitive to Ceftriaxone, started in ED on 05/09 and to be continued for 5 more days Acute on chronic HFpEF--continue IV diuretics and monitor I/O, low salt, monitor weight, continue metoprolol. Change to PO Lasix tomorrow Persistent AFib, rate controlled on metoprolol and continue coumadin for stroke prevention, INR therapeutic Mild increasae in troponin likley from type 2 injury from flu and chf--repeat trop HLD Continue statin Anxiety/depression Continue home meds Type 2 diabetes without Hyperglycemia--Sliding scale insulin Ankle, hip pain,--Xrays no fracture DVT Prophylaxis: On Coumadin PT to reassess need for inpt: safe dispo, she is declining rehab, but we don't think it is safe for her to be home and likely to b readmitted DNR/DNI, verified with pt Quality Stroke Does the patient have a stroke diagnosis?: No VTE Prior VTE?: No VTE Risk Level:: Medical - moderate - high VTE Device Contraindication: Treatment Not Indicated VTE Drug Contraindication: N/A - Med Ordered
[2023-05-13] MEDS: Warfarin Sodium 3 MG TABLET PO (17:38)
[2023-05-13 20:00] VITALS: BP 134/61; PULSE 53; RESP 24; TEMP 36.6; O2SAT 97
[2023-05-13 20:31] LABS: Glucose, Whole Blood 136 mg/dL (60-115)
[2023-05-13] MEDS: Melatonin 3 MG TABLET PO (20:57)
[2023-05-13] MEDS: Benzonatate 100 MG CAPSULE 200 MG PO (20:57)
[2023-05-14] MEDS: 0.9 % Sodium Chloride Flush 3 ML SYRINGE IVFLUSH ×2 (00:52→08:47)
[2023-05-14 04:00] VITALS: BP 150/74; PULSE 68; RESP 20; TEMP 36.7; O2SAT 97
[2023-05-14 05:35] VITALS: BMI 34.4
[2023-05-14] MEDS: Acetaminophen 325 MG TABLET 650 MG PO ×3 (05:49→21:12)
[2023-05-14] MEDS: Benzonatate 100 MG CAPSULE 200 MG PO ×2 (05:49→13:20)
[2023-05-14 07:17] LABS: INTERNATIONAL NORM RATIO 3.3 (0.9-1.1)
[2023-05-14 08:00] VITALS: BP 176/79; PULSE 56; RESP 19; TEMP 36.7; O2SAT 99
[2023-05-14 08:04] LABS: Glucose, Whole Blood 104 mg/dL (60-115)
[2023-05-14] MEDS: Furosemide 40 MG/4 ML VIAL IVPUSH (08:47)
[2023-05-14] MEDS: Sertraline HCL 25 MG TABLET PO (10:06)
[2023-05-14] MEDS: Metoprolol Tartrate 12.5 MG HALFTAB PO ×2 (10:06→21:12)
[2023-05-14] MEDS: Atorvastatin Calcium 10 MG TABLET PO (10:06)
[2023-05-14] MEDS: Oseltamivir Phosphate 30 MG CAPSULE PO ×2 (10:06→21:13)
--- NOTE | 2023-05-14 11:05 | HO.PM.IMPN ---
Subjective Subjective Date of Service: 05/14/23 Interval History: f/u on uti, influenza and heart failure. Her symptoms are better, still on O2 She is still insisting on going home despite recommendation for rehab Physical Exam Vital Signs: Vital Signs: Last Vital Signs Temp 98.0 F 05/14/23 08:00 Pulse 56 05/14/23 08:00 Resp 19 05/14/23 08:00 BP 176/79 H 05/14/23 08:00 Pulse Ox 99 05/14/23 08:00 O2 Del Method Nasal Cannula 05/14/23 08:00 O2 Flow Rate 2 05/14/23 04:00 BMI result Body Mass Index 34.4 General: AO X 3, no acute distress Resp: CTA bilateral CVS: S1,S2,RRR, no leg edema at all GI: +BS, NT, no distention Skin: No rash Neuro: motor grossly intact Psych: appropriate affect Objective Data Active Medications Acetaminophen (Acetaminophen 325 Mg Tablet) 650 mg PO Q6H PRN PRN Reason: Pain, Mild (Pain Scale 1-3) Last Admin: 05/14/23 05:49 Dose: 650 mg Documented By: NICOLE Al Hydroxide/Mg Hydroxide (Magnesium Hydrox/Alum Hydrox 30 Ml Oral.Susp) 30 ml PO Q4H PRN PRN Reason: Heartburn/Nausea Atorvastatin Calcium (Atorvastatin Calcium 10 Mg Tablet) 10 mg PO DAILY [facility] Last Admin: 05/14/23 10:06 Dose: 10 mg Documented By: JASBIR Benzonatate (Benzonatate 100 Mg Capsule) 200 mg PO TID PRN PRN Reason: Cough Last Admin: 05/14/23 05:49 Dose: 200 mg Documented By: NICOLE Dextrose (Dextrose 50 % 25 Gm/50 Ml Syringe) 25 gm IVPUSH Q15M PRN; Protocol PRN Reason: per Hypoglycemia Standing Ord. Furosemide (Furosemide 40 Mg/4 Ml Vial) 40 mg IVPUSH BID@0900,1800 [facility]; Protocol Last Admin: 05/14/23 08:47 Dose: 40 mg Documented By: JASBIR Glucose (Glucose Gel 15 Gm Gel..Gram.) 15 gm PO Q15M PRN; Protocol PRN Reason: per Hypoglycemia Standing Ord. Ceftriaxone Sodium 1 gm/ (Sodium Chloride) 50 mls @ 100 mls/hr IV Q24H KIKI Stop: 05/15/23 15:29 Last Admin: 05/13/23 11:56 Dose: Not Given Documented By: ANJEL Non-Admin Reason: pt being d/c'ed home around 1400 Insulin Human Lispro (Insulin Lispro 100 Unit/Ml 3 Ml Vial) 0 unit SUBCUT QIDACHS [facility]; Protocol Last Admin: 05/14/23 08:10 Dose: Not Given Documented By: JASBIR Non-Admin Reason: No Insulin Coverage Magnesium Hydroxide (Milk Of Magnesia 30 Ml Oral.Susp) 30 ml PO DAILY PRN PRN Reason: Constipation Melatonin (Melatonin 3 Mg Tablet) 3 mg PO BEDTIME PRN PRN Reason: Insomnia Last Admin: 05/13/23 20:57 Dose: 3 mg Documented By: RUSS Metoprolol Tartrate (Metoprolol Tartrate 12.5 Mg Halftab) 12.5 mg PO BID [facility]; Protocol Last Admin: 05/14/23 10:06 Dose: 12.5 mg Documented By: JASBIR Ondansetron HCl (Ondansetron Hcl 4 Mg/2 Ml Vial) 4 mg IVPUSH Q8H PRN PRN Reason: Nausea and Vomiting Last Admin: 05/11/23 16:22 Dose: 4 mg Documented By: EARL Oseltamivir Phosphate (Oseltamivir Phosphate 30 Mg Capsule) 30 mg PO BID [facility] Stop: 05/15/23 09:01 Last Admin: 05/14/23 10:06 Dose: 30 mg Documented By: JASBIR Sertraline HCl (Sertraline Hcl 25 Mg Tablet) 25 mg PO DAILY [facility] Last Admin: 05/14/23 10:06 Dose: 25 mg Documented By: JASBIR Sodium Chloride (0.9 % Sodium Chloride Flush 3 Ml Syringe) 3 ml IVFLUSH QSHIFT [facility] Last Admin: 05/14/23 08:47 Dose: 3 ml Documented By: JASBIR Vitamin D (Cholecalciferol (Vitamin D3) 25 Mcg Tablet) 125 mcg PO PICKARD [facility] Warfarin Sodium (Warfarin Sodium 3 Mg Tablet) 3 mg PO DAILY@1800 [facility] Last Admin: 05/13/23 17:38 Dose: 3 mg Documented By: RUSS Labs 05/10/23 14:03 05/13/23 06:52 Labs: Laboratory Results - last 24 hr 0305/13/23 05/13/23 11:06 15:55 20:26 Hold Purple Top PT INR POC Glucose 151 H 111 136 H 05/14/23 05/14/23 06:10 07:47 Hold Purple Top SEE NOTE PT 40.0 H D INR 3.3 H POC Glucose 104 Assessment and Plan (1) Influenza A: Status: Acute (2) CHF (congestive heart failure): Status: Acute Plan Pt is an 83-year-old female with a PMH significant for?HFpEF, chronic hypoxic respiratory failure not on home O2, pulmonary hypertension, persistent AFib on Coumadin, hx of CVA, aortic valve replacement, HLD, RA, [id number] type 2 diabetes, hx of uterine cancer s/p total hysterectomy, and anxiety and depression here with acute respiratory failure due to unresolved heart failure and newly diagnosed influenza Acute hypoxic respiratory failure d/t heart failure and influenza -Treat underlying issues, O2 and wean as colette -home O2 eval Influeanza--symptomatic treatment and Tamiflu for 5 days, resp isolation UTI--Urine culture from last hospitalization showed, Ecoli and strep viridan, sensitive to Ceftriaxone, started in ED on 05/09 and to be continued for 5 more days Acute on chronic HFpEF--continue IV diuretics and monitor I/O, low salt, monitor weight, continue metoprolol. Change to PO Lasix today, check BMP Persistent AFib, rate controlled on metoprolol and continue coumadin for stroke prevention, INR is high, hold coumadin today Mild increasae in troponin likley from type 2 injury from flu and chf--repeat trop HLD Continue statin Anxiety/depression Continue home meds Type 2 diabetes without Hyperglycemia--Sliding scale insulin Ankle, hip pain,--Xrays no fracture DVT Prophylaxis: On Coumadin She is very decondition from recent multiple hospitalization , continue to recommend STR need for inpt: safe dispo, she is declining rehab, but we don't think it is safe for her to be home and likely to b readmitted DNR/DNI, verified with pt Quality Stroke Does the patient have a stroke diagnosis?: No VTE Prior VTE?: No VTE Risk Level:: Medical - moderate - high VTE Device Contraindication: Treatment Not Indicated VTE Drug Contraindication: N/A - Med Ordered
[2023-05-14 11:24] LABS: MANUAL DIFF FLAG NO
[2023-05-14 11:31] LABS: Basophils Percent Auto 0.2 % (0-2); Eosinophils Absolute Auto 0.2 X10*3/uL (0.0-0.4); Eosinophils Percent Auto 4.6 % (0-4); Hematocrit 29.1 % (37.0-47.0); Hemoglobin 9.4 g/dl (12.0-16.0); Imm Gran Abs Auto 0.01 X10*3/uL (0.00-0.03); Imm Gran Pct Auto 0.2 % (0.0-0.4); Lymphocytes Absolute Auto 1.1 X10*3/uL (1.2-4.9); Lymphocytes Percent Auto 22.8 % (20-40); Mean Corpuscular HGB Conc 32.3 g/dl (31.0-35.0); Mean Corpuscular Volume 89.8 fL (80.0-98.0); Mean Platelet Volume 10.3 fL (9.4-12.3); Monocytes Absolute Auto 0.4 X10*3/uL (0.1-1.2); Monocytes Percent Auto 8.7 % (2-11); Neutrophils Absolute Auto 2.9 x10*3/uL (2.0-8.3); Neutrophils Percent Auto 63.5 % (45-73); Platelet Count 130 X10*3/uL (160-400); Red Blood Count 3.24 X10*6/uL (4.20-5.50); Red Cell Distribution Width 15.5 % (11.0-16.0); White Blood Count 4.6 X10*3/uL (4.8-10.8)
[2023-05-14 11:35] LABS: Glucose, Whole Blood 114 mg/dL (60-115)
[2023-05-14 11:36] VITALS: BP 129/58; PULSE 57; RESP 19; TEMP 36.7; O2SAT 97
--- NOTE | 2023-05-14 11:55 | MHC.CM.PN ---
Per MD's request, JOSE called Daughter/Cecy @ [phone] to inquire if any decisions were reached regarding Patient/family's SNF choices but JOSE was only able to leave a detailed message. JOSE awaits a return call and will continue to follow.
[2023-05-14 12:32] LABS: Anion Gap 10 (12-20); Blood Urea Nitrogen 24 mg/dL (9-16); Carbon Dioxide 38 mmol/L (22-29); Chloride 97 mmol/L (96-108); Creatinine Clr Calc Pharmacy 55.3; Estimated Glomerular Filt Rate > 60; Glucose Random 108 mg/dL (60-115); Potassium 3.9 mmol/L (3.3-5.1); Sodium 141 mmol/L (135-145)
[2023-05-14] MEDS: cefTRIAXone sodium 1 GM in 0.9 % Sodium Chloride 50 ML IV (13:50)
[2023-05-14 16:00] VITALS: BP 142/65; PULSE 61; RESP 16; TEMP 36.7; O2SAT 98
[2023-05-14 16:13] LABS: Glucose, Whole Blood 114 mg/dL (60-115)
[2023-05-14 20:31] LABS: Glucose, Whole Blood 96 mg/dL (60-115)
[2023-05-14] MEDS: Melatonin 3 MG TABLET PO (21:16)
[2023-05-15 03:08] VITALS: BP 137/62; PULSE 59; RESP 20; TEMP 36.1; O2SAT 97
[2023-05-15] MEDS: traMADoL HCL 50 MG TABLET 25 MG PO (03:10)
[2023-05-15] MEDS: Acetaminophen 325 MG TABLET 650 MG PO ×2 (04:03→21:24)
[2023-05-15] MEDS: Benzonatate 100 MG CAPSULE 200 MG PO ×2 (04:04→18:07)
[2023-05-15 05:39] VITALS: BMI 35.2
[2023-05-15 07:12] LABS: INTERNATIONAL NORM RATIO 3.6 (0.9-1.1); Prothrombin Time 44.4 SEC (11.1-13.3)
[2023-05-15 07:33] VITALS: BP 135/64; PULSE 60; RESP 20; TEMP 36.1; O2SAT 99
[2023-05-15 07:46] LABS: Glucose, Whole Blood 94 mg/dL (60-115)
--- NOTE | 2023-05-15 09:08 | P.PNIM_ITS ---
Subjective Subjective Date of Service: 05/15/23 Interval History: f/u on uti, influenza and heart failure. Overall improve, however deconditioned Physical Exam 2 Vital Signs: Vital Signs: Last Vital Signs Temp 96.9 F 05/15/23 07:33 Pulse 60 05/15/23 07:33 Resp 20 05/15/23 07:33 BP 135/64 05/15/23 07:33 Pulse Ox 99 05/15/23 07:33 O2 Del Method Nasal Cannula 05/15/23 07:33 O2 Flow Rate 2 05/15/23 07:33 BMI result Body Mass Index 35.2 Const: Other: General: AO X 3, no acute distress Resp: rales colt CVS: S1,S2, Irregularly irregular, wrinkles/no edema GI: +BS, NT, no distention Skin: No rash Neuro: motor grossly intact Psych: appropriate affect Objective Data Active Medications Acetaminophen (Acetaminophen 325 Mg Tablet) 650 mg PO Q6H PRN PRN Reason: Pain, Mild (Pain Scale 1-3) Last Admin: 05/15/23 04:03 Dose: 650 mg Documented By: SHAQUILLE Al Hydroxide/Mg Hydroxide (Magnesium Hydrox/Alum Hydrox 30 Ml Oral.Susp) 30 ml PO Q4H PRN PRN Reason: Heartburn/Nausea Atorvastatin Calcium (Atorvastatin Calcium 10 Mg Tablet) 10 mg PO DAILY [facility] Last Admin: 05/14/23 10:06 Dose: 10 mg Documented By: JASBIR Benzonatate (Benzonatate 100 Mg Capsule) 200 mg PO TID PRN PRN Reason: Cough Last Admin: 05/15/23 04:04 Dose: 200 mg Documented By: SHAQUILLE Dextrose (Dextrose 50 % 25 Gm/50 Ml Syringe) 25 gm IVPUSH Q15M PRN; Protocol PRN Reason: per Hypoglycemia Standing Ord. Furosemide (Furosemide 40 Mg Tablet) 40 mg PO DAILY KIKI; Protocol Glucose (Glucose Gel 15 Gm Gel..Gram.) 15 gm PO Q15M PRN; Protocol PRN Reason: per Hypoglycemia Standing Ord. Ceftriaxone Sodium 1 gm/ (Sodium Chloride) 50 mls @ 100 mls/hr IV Q24H KIKI Stop: 05/15/23 15:29 Last Infusion: 05/14/23 14:21 Dose: Infused Documented By: JASBIR Insulin Human Lispro (Insulin Lispro 100 Unit/Ml 3 Ml Vial) 0 unit SUBCUT QIDACHS [facility]; Protocol Last Admin: 05/15/23 08:26 Dose: Not Given Documented By: BETITO Non-Admin Reason: No Insulin Coverage Magnesium Hydroxide (Milk Of Magnesia 30 Ml Oral.Susp) 30 ml PO DAILY PRN PRN Reason: Constipation Melatonin (Melatonin 3 Mg Tablet) 3 mg PO BEDTIME PRN PRN Reason: Insomnia Last Admin: 05/14/23 21:16 Dose: 3 mg Documented By: SHAQUILLE Metoprolol Tartrate (Metoprolol Tartrate 12.5 Mg Halftab) 12.5 mg PO BID [facility]; Protocol Last Admin: 05/14/23 21:12 Dose: 12.5 mg Documented By: SHAQUILLE Ondansetron HCl (Ondansetron Hcl 4 Mg/2 Ml Vial) 4 mg IVPUSH Q8H PRN PRN Reason: Nausea and Vomiting Last Admin: 05/11/23 16:22 Dose: 4 mg Documented By: EARL Sertraline HCl (Sertraline Hcl 25 Mg Tablet) 25 mg PO DAILY [facility] Last Admin: 05/14/23 10:06 Dose: 25 mg Documented By: JASBIR Sodium Chloride (0.9 % Sodium Chloride Flush 3 Ml Syringe) 3 ml IVFLUSH QSHIFT [facility] Last Admin: 05/15/23 03:11 Dose: Not Given Documented By: SHAQUILLE Non-Admin Reason: No Access Vitamin D (Cholecalciferol (Vitamin D3) 25 Mcg Tablet) 125 mcg PO [facility] Warfarin Sodium (Warfarin Sodium 3 Mg Tablet) 3 mg PO DAILY@1800 [facility] Last Admin: 05/13/23 17:38 Dose: 3 mg Documented By: RUSS Labs 05/14/23 06:10 05/14/23 11:41 Labs: Laboratory Results - last 24 hr 05/14/23 05/14/23 05/14/23 06:10 11:14 11:41 MCV 89.8 MCH 29.0 MCHC 32.3 RDW 15.5 Plt Count 130 L MPV 10.3 Immature Gran % (Auto) 0.2 Neut % (Auto) 63.5 Lymph % (Auto) 22.8 [place] % (Auto) 8.7 Eos % (Auto) 4.6 H Baso % (Auto) 0.2 Lymph # (Auto) 1.1 L [place] # (Auto) 0.4 Eos # (Auto) 0.2 Baso # (Auto) 0.0 Abs Immat Gran (auto) 0.01 Absolute Neuts (auto) 2.9 Absolute Nucleated RBC 0.000 Nucleated RBC % (auto) 0.0 Hold Purple Top PT INR Anion Gap 10 L Estim Creat Clear Calc 55.3 Estimated GFR > 60 POC Glucose 114 Random Glucose 108 Calcium 9.0 05/14/23 05/14/23 05/15/23 16:08 20:26 05:54 MCV MCH MCHC RDW Plt Count MPV Immature Gran % (Auto) Neut % (Auto) Lymph % (Auto) [place] % (Auto) Eos % (Auto) Baso % (Auto) Lymph # (Auto) [place] # (Auto) Eos # (Auto) Baso # (Auto) Abs Immat Gran (auto) Absolute Neuts (auto) Absolute Nucleated RBC Nucleated RBC % (auto) Hold Purple Top SEE NOTE PT 44.4 H INR 3.6 H Anion Gap Estim Creat Clear Calc Estimated GFR POC Glucose 114 96 Random Glucose Calcium 05/15/23 07:37 MCV MCH MCHC RDW Plt Count MPV Immature Gran % (Auto) Neut % (Auto) Lymph % (Auto) [place] % (Auto) Eos % (Auto) Baso % (Auto) Lymph # (Auto) [place] # (Auto) Eos # (Auto) Baso # (Auto) Abs Immat Gran (auto) Absolute Neuts (auto) Absolute Nucleated RBC Nucleated RBC % (auto) Hold Purple Top PT INR Anion Gap Estim Creat Clear Calc Estimated GFR POC Glucose 94 Random Glucose Calcium Assessment and Plan (1) Influenza A: Status: Acute (2) CHF (congestive heart failure): Status: Acute Plan Pt is an 83-year-old female with a PMH significant for?HFpEF, chronic hypoxic respiratory failure not on home O2, pulmonary hypertension, persistent AFib on Coumadin, hx of CVA, aortic valve replacement, HLD, RA, tgc-fbestmy-xhoaawmom type 2 diabetes, hx of uterine cancer s/p total hysterectomy, and anxiety and depression here with acute respiratory failure due to unresolved heart failure and newly diagnosed influenza Acute hypoxic respiratory failure d/t heart failure and influenza -Treat underlying issues, O2 and wean as colette -reassess for home O2 Influeanza--No symptoms, has completed 5 days of Tamiflu UTI--Urine culture from last hospitalization showed, Ecoli and strep viridan, sensitive to Ceftriaxone, started in ED on 05/09, stop after today Acute on chronic HFpEF-- now euvolemic, stopped IV Lasix, restart PO tomorrow. Persistent AFib, rate controlled on metoprolol and continue coumadin for stroke prevention, INR is high, hold coumadin today Mild increasae in troponin likley from type 2 injury from flu and chf--repeat trop HLD Continue statin Anxiety/depression Continue home meds Type 2 diabetes without Hyperglycemia--Sliding scale insulin Ankle, hip pain,--Xrays no fracture DVT Prophylaxis: On Coumadin She is very deconditioned from recent hospitalization and current hospitalization,, and I think she will do better at rehab and avoid another readmission, family (daughter) is trying to convince her need for inpt: safe dispo, she is declining rehab, but we don't think it is safe for her to be home and likely to b readmitted DNR/DNI, verified with pt Quality Stroke Does the patient have a stroke diagnosis?: No VTE Prior VTE?: No VTE Risk Level:: Medical - moderate - high VTE Device Contraindication: Treatment Not Indicated VTE Drug Contraindication: N/A - Med Ordered
[2023-05-15 10:29] VITALS: BP 127/62; PULSE 58; RESP 20; TEMP 36.3; O2SAT 97
[2023-05-15] MEDS: Sertraline HCL 25 MG TABLET PO (10:39)
[2023-05-15] MEDS: Oseltamivir Phosphate 30 MG CAPSULE PO (10:39)
[2023-05-15] MEDS: Atorvastatin Calcium 10 MG TABLET PO (10:40)
[2023-05-15] MEDS: Metoprolol Tartrate 12.5 MG HALFTAB PO ×2 (10:40→21:24)
[2023-05-15 10:41] LABS: Glucose, Whole Blood 140 mg/dL (60-115)
[2023-05-15] MEDS: Cholecalciferol (Vitamin D3) 25 MCG TABLET 125 MCG PO (10:42)
[2023-05-15] MEDS: 0.9 % Sodium Chloride Flush 3 ML SYRINGE IVFLUSH (10:46)
[2023-05-15] MEDS: cefTRIAXone sodium 1 GM in 0.9 % Sodium Chloride 50 ML IV (15:12)
[2023-05-15 15:28] VITALS: BP 140/62; PULSE 53; RESP 20; TEMP 36.8; O2SAT 97
[2023-05-15 16:07] LABS: Glucose, Whole Blood 112 mg/dL (60-115)
[2023-05-15 19:45] VITALS: BP 148/67; PULSE 67; RESP 18; TEMP 36.7; O2SAT 97
[2023-05-15 20:39] LABS: Glucose, Whole Blood 108 mg/dL (60-115)
[2023-05-15] MEDS: Melatonin 3 MG TABLET PO (21:25)
[2023-05-15 23:38] VITALS: BP 144/67; PULSE 66; RESP 18; TEMP 37.1; O2SAT 97
[2023-05-16] MEDS: 0.9 % Sodium Chloride Flush 3 ML SYRINGE IVFLUSH ×2 (00:26→09:22)
[2023-05-16 03:30] VITALS: BP 122/59; PULSE 53; RESP 20; TEMP 36.6; O2SAT 98
[2023-05-16] MEDS: Benzonatate 100 MG CAPSULE 200 MG PO (05:37)
[2023-05-16] MEDS: Acetaminophen 325 MG TABLET 650 MG PO ×2 (05:38→11:41)
[2023-05-16 06:00] VITALS: BMI 34.8
[2023-05-16 06:49] LABS: INTERNATIONAL NORM RATIO 3.6 (0.9-1.1); Prothrombin Time 43.6 SEC (11.1-13.3)
[2023-05-16 07:49] LABS: Glucose, Whole Blood 114 mg/dL (60-115)
[2023-05-16 08:00] VITALS: BP 89/40; PULSE 67; RESP 20; TEMP 36.3; O2SAT 98
--- NOTE | 2023-05-16 08:24 | MHC.CM.PN ---
Addendum entered by Kendra Daly 05/16/23 09:45: Multiple local bed offers received for STR, call placed to Emily to discuss, voicemail left, awaiting return call. Original Note: Call received from pts daughter Emily, per Emily the family agrees that STR is the best plan for Yakelin. Emily states that it is ok for us to place local STR referrals as they do not have any preferences, only preference is to not include [facility]. Local STR referrals placed in [facility].
[2023-05-16 08:59] VITALS: BP 118/58
[2023-05-16] MEDS: Atorvastatin Calcium 10 MG TABLET PO (09:20)
[2023-05-16] MEDS: Metoprolol Tartrate 12.5 MG HALFTAB PO (09:20)
[2023-05-16] MEDS: Sertraline HCL 25 MG TABLET PO (09:20)
[2023-05-16 09:26] VITALS: BP 118/58
[2023-05-16 09:27] LABS: Anion Gap 12 (12-20); Blood Urea Nitrogen 28 mg/dL (9-16); Carbon Dioxide 37 mmol/L (22-29); Chloride 97 mmol/L (96-108); Creatinine Clr Calc Pharmacy 57.4; Estimated Glomerular Filt Rate > 60; Glucose Random 86 mg/dL (60-115); Potassium 3.9 mmol/L (3.3-5.1); Sodium 142 mmol/L (135-145)
[2023-05-16 11:12] VITALS: BP 118/58
[2023-05-16 11:19] LABS: Glucose, Whole Blood 131 mg/dL (60-115)
[2023-05-16 11:28] VITALS: BP 142/71; PULSE 68; RESP 20; TEMP 36.2; O2SAT 98
--- NOTE | 2023-05-16 11:49 | MHC.CM.PN ---
Second IMM given 05/15. Pt is medically cleared for D/C to STR. This CM spoke with pts daughter Emily to review STR bed offers. Per Emily, [facility] would be the best in terms of location, and her dad had been there in the past and had a good experience. This CM met with pt to address IMM with her and discuss her going to [facility]. Per pt, she does not want to go to STR, but she admits that she cannot manage at home right now. Pt aware and in agreement with going to [facility] today at 1pm via BLS/David.
[2023-05-16 12:15] LABS: MANUAL DIFF FLAG NO
[2023-05-16 12:33] LABS: Anion Gap 11 (12-20); Blood Urea Nitrogen 26 mg/dL (9-16); Calcium 9.1 mg/dL (8.4-10.2); Carbon Dioxide 37 mmol/L (22-29); Chloride 97 mmol/L (96-108); Creatinine Clr Calc Pharmacy 56.5; Estimated Glomerular Filt Rate > 60; Glucose Random 103 mg/dL (60-115); Potassium 4.4 mmol/L (3.3-5.1); Sodium 141 mmol/L (135-145)
[2023-05-16 12:35] LABS: Basophils Percent Auto 0.4 % (0-2); Eosinophils Absolute Auto 0.1 X10*3/uL (0.0-0.4); Eosinophils Percent Auto 2.5 % (0-4); Hematocrit 25.7 % (37.0-47.0); Hemoglobin 9.5 g/dl (12.0-16.0); Imm Gran Abs Auto 0.01 X10*3/uL (0.00-0.03); Imm Gran Pct Auto 0.2 % (0.0-0.4); Lymphocytes Absolute Auto 1.1 X10*3/uL (1.2-4.9); Lymphocytes Percent Auto 20.5 % (20-40); Mean Corpuscular Hemoglobin 34.3 pg (27.0-33.0); Mean Corpuscular Volume 92.8 fL (80.0-98.0); Mean Platelet Volume 11.3 fL (9.4-12.3); Monocytes Absolute Auto 0.4 X10*3/uL (0.1-1.2); Neutrophils Absolute Auto 3.8 x10*3/uL (2.0-8.3); Neutrophils Percent Auto 68.4 % (45-73); Platelet Count 158 X10*3/uL (160-400); Red Blood Count 2.77 X10*6/uL (4.20-5.50); White Blood Count 5.5 X10*3/uL (4.8-10.8)
--- NOTE | 2023-05-16 15:02 | P.DS_ITS ---
DS: Providers Provider Date of Service: 05/16/23 Date of admission: 05/10/23 16:35 Primary care physician: Riccardo Page MD Consults: 05/11/23 04:37 Consult to Wound Care Routine Reason for consultation: discoloration to BLE, and discoloration to coccyx DS: Diagnosis Discharge Diagnosis (1) Influenza A: Status: Acute (2) CHF (congestive heart failure): Status: Acute DS: Summary Hospital Course Hospital Course: admission HPI Chief Complaint: Shortness of breath Pt is an 83-year-old female with a PMH significant for HFpEF, chronic hypoxic respiratory failure on prn home O2, pulmonary hypERtension, persistent AFib on Coumadin, hx of CVA, aortic valve replacement, HLD, RA, dei-ynbhucl-tzwacredg type 2 diabetes, hx of uterine cancer s/p total hysterectomy, and anxiety and depression who presents to the ED with shortness of breath. She was admitted to the hospital from 05/04 to 05/07 for management of CHF. She went home for less than 24 hours. She woke up this morning short of breath and having fever and chills. Work up has revealed positive influenza and heart failure. She is given IV Lasix and Tamiflu. She feels more comfortable now. She lives at home with who is currently hospitalized. hospital course; patient presented to the hospital less than 24 hours after discharge following treatment for heart failure. She presented back with shortness of breath and fever and found to have influenza and evidence of residual CHF. Additionally, she was noted to have urinary tract infection based on a culture during the prior hospitalization. She was admitted and treated with IV antibiotics for the urinary tract infection. For the influenza she was treated with bronchodilators and Tamiflu oxygen. CHF was treated with IV Lasix. She no longer has fever and her breathing is comfortable. She reports that she has slipped out of recliner before coming to the hospital and was having some left ankle pain. X-ray of the ankle the knee and hip were unremarkable. Physical therapy saw her initially and recommended return to home with VNA services a on re-evaluation the patient was recommended for short term rehab and is now agreable. It is of note that she has completed course of antibiotics for UTI and Tamiflu for influenza, she presently has no fever, WBC within normal. CXR today ? LL infiltrate maybe residual from influeza, and has completed 5 days of Abx, no fever and normal WBC no further treatment To Short term rehab for less than 30 days Time Attestation Discharge Coordination Time (in mins): 50 Quality: Safe Use of Opioids Does Pt have an Active Cancer Diagnosis on the Problem List?: No Quality: Stroke Does the patient have a stroke diagnosis?: No Physical Exam Vital Signs: Vital Signs: Last Vital Signs Temp 97.1 F 05/16/23 11:28 Pulse 68 05/16/23 11:28 Resp 20 05/16/23 11:28 BP 142/71 H 05/16/23 11:28 Pulse Ox 98 05/16/23 11:28 O2 Del Method Nasal Cannula 05/16/23 11:28 O2 Flow Rate 3 05/16/23 11:28 BMI result Body Mass Index 34.8 DS: Data Data Completed and Pending Completed studies during hospitalization [Text1]: Procedures Transfusion of Nonautologous Red Blood Cells into Peripheral Vein, Percutaneous Approach (01/01/21) Labs on day of discharge: Laboratory Results - last 24 hr 05/15/23 05/15/23 05/15/23 05:54 15:32 20:30 WBC RBC Hgb Hct MCV MCH MCHC RDW Plt Count MPV Immature Gran % (Auto) Neut % (Auto) Lymph % (Auto) [place]ar % (Auto) Eos % (Auto) Baso % (Auto) Lymph # (Auto) [place] # (Auto) Eos # (Auto) Baso # (Auto) Abs Immat Gran (auto) Absolute Neuts (auto) Absolute Nucleated RBC Nucleated RBC % (auto) Hold Purple Top PT INR Sodium 142 Potassium 3.9 Chloride 97 Carbon Dioxide 37 H Anion Gap 12 BUN 28 H Creatinine 0.67 Estim Creat Clear Calc 57.4 Estimated GFR > 60 POC Glucose 112 108 Random Glucose 86 Calcium 9.0 Hold Yellow Top 05/16/23 05/16/23 05/16/23 06:14 07:36 11:09 WBC 5.5 RBC 2.77 L Hgb 9.5 L Hct 25.7 L MCV 92.8 MCH 34.3 H MCHC 37.0 H RDW 16.0 Plt Count 158 L MPV 11.3 Immature Gran % (Auto) 0.2 Neut % (Auto) 68.4 Lymph % (Auto) 20.5 [place] % (Auto) 8.0 Eos % (Auto) 2.5 Baso % (Auto) 0.4 Lymph # (Auto) 1.1 L [place] # (Auto) 0.4 Eos # (Auto) 0.1 Baso # (Auto) 0.0 Abs Immat Gran (auto) 0.01 Absolute Neuts (auto) 3.8 Absolute Nucleated RBC 0.000 Nucleated RBC % (auto) 0.0 Hold Purple Top SEE NOTE PT 43.6 H INR 3.6 H Sodium 141 Potassium 4.4 Chloride 97 Carbon Dioxide 37 H Anion Gap 11 L BUN 26 H Creatinine 0.68 Estim Creat Clear Calc 56.5 Estimated GFR > 60 POC Glucose 114 131 H Random Glucose 103 Calcium 9.1 Hold Yellow Top See Note Discharge Plan Discharge Anticipated Discharge Date/Time: 05/13/23 11:43 Patient Disposition: Xfer SNF Discharge Diagnosis: Influenza, UTI, heart failure Referrals: [facility] [Outside] - 1 Week Po,Riccardo Oropeza MD [Primary Care Provider] - 1 Week Discharge Medications: Continued ([facility]) Hospital bed See Rx Instructions .Route .MEDSUPPLY Qty: 1 0RF Rx Instructions: As directed metoprolol tartrate 25 mg tablet 12.5 mg PO BID 90 Days Qty: 90 2RF ([facility]) hospital mattress See Rx Instructions .Route .MEDSUPPLY Qty: 1 0RF Rx Instructions: As directed ([facility]) blood-glucose meter Kit See Rx Instructions .ROUTE .MEDSUPPLY Qty: 1 0RF Rx Instructions: As directed check the blood sugar once a day ([facility]) OneTouch Ultra Test Strip See Rx Instructions .ROUTE .MEDSUPPLY Qty: 100 3RF Rx Instructions: As directed check the blood sugar once a day ([facility]) lancets Misc See Rx Instructions .ROUTE .MEDSUPPLY Qty: 100 0RF Rx Instructions: As directed check the blood sugar once a day simvastatin 20 mg tablet 20 mg PO DAILY Qty: 90 3RF sertraline [Zoloft] 25 mg tablet 25 mg PO DAILY Qty: 90 0RF ([facility]) prothrombin time test strips Strip See Rx Instructions .Route Qty: 48 12RF Rx Instructions: As directed ([facility]) INR strips ACELIS See Rx Instructions .Route .MEDSUPPLY Qty: 60 12RF Rx Instructions: As directed acetaminophen 500 mg Tablet 500 mg PO BEDTIME cholecalciferol (vitamin D3) 125 mcg (5,000 unit) Tablet 125 mcg PO PICKARD warfarin [Jantoven] 3 mg Tablet 3 mg PO DAILY@1800 Qty: 30 0RF (DME) blood-glucose meter [OneTouch Ultra2 Meter] Kit See Rx Instructions .ROUTE .MEDSUPPLY Qty: 1 0RF Rx Instructions: As directed check the blood sugar once a day (DME) blood sugar diagnostic Strip See Rx Instructions .ROUTE .MEDSUPPLY Qty: 250 3RF Rx Instructions: Twice a day acetaminophen 500 mg capsule 500 mg PO Q6H PRN (Reason: Pain) Changed furosemide 40 mg tablet 40 mg PO DAILY Qty: 30 0RF Rx Instructions: or as directed Discharge Orders: Discharge Order (Routine); Ordered 05/13/23 Ordered By: Parvez Loza Diet: Diabetic diet Activity on Discharge: As tolerated Stand Alone Forms: Patient Portal Discharge page Care Plan Goals: recovering from influenza and UTI. Health Concerns: influenza you have completed Tamiflu UTI--completed antibitiocs high failure--Heart continue Lasix at 40 mg daily, monitor water intake no more 1200 cc dequan To Short term rehab for less than 30 days Plan of Treatment: You are to participate in rehab Assessment: see above
[2023-05-16 16:02] LABS: Glucose, Whole Blood 106 mg/dL (60-115)
== END 2023-05-16 16:47 | disposition skilled nursing facility (03) | DRG 193 ==
LOC: HO.ED 15:23 → HO.EDOVER 16:41 → HO.IMC 19:32
PROVIDERS: Admitting Provider Internal Medicine; Emergency Provider Emergency Medicine; PCP Internal Medicine; Visit Provider Internal Medicine
DX: J10.1 Influenza due to other identified influenza virus with other respiratory manifestations (principal); I50.33 Acute on chronic diastolic (congestive) heart failure; J96.21 Acute and chronic respiratory failure with hypoxia; I48.19 Other persistent atrial fibrillation; N39.0 Urinary tract infection, site not specified; I11.0 Hypertensive heart disease with heart failure; Z66 Do not resuscitate; E11.9 Type 2 diabetes mellitus without complications; E78.5 Hyperlipidemia, unspecified; F32.A Depression, unspecified; F41.9 Anxiety disorder, unspecified; I27.20 Pulmonary hypertension, unspecified; M06.9 Rheumatoid arthritis, unspecified; Z99.81 Dependence on supplemental oxygen; Z95.2 Presence of prosthetic heart valve; Z79.01 Long term (current) use of anticoagulants; Z79.899 Other long term (current) drug therapy
CPT/HCPCS: 0241U; 36415; 71045; 73521; 73560; 73600; 80048; 80076; 81003; 82947; 83605; 83735; 83880; 84484; 85025; 85610; 87040; 93005; 97162; 99285; J0696; J1940; J2405

== ENCOUNTER → 2023-05-10 13:33 | Outpatient (BNV) | payer MEDICARE, OTHER, SELFPAY | PROVIDERS: Admitting Provider Internal Medicine; Emergency Provider Emergency Medicine; PCP Internal Medicine; Visit Provider Internal Medicine Cardiovascular Disease | DX: I48.91 Unspecified atrial fibrillation (principal) | CPT/HCPCS: 93010 ==

== ENCOUNTER → 2023-05-10 16:35 | Outpatient (BNV) | payer MEDICARE, OTHER, SELFPAY | PROVIDERS: Admitting Provider Internal Medicine; Emergency Provider Emergency Medicine; PCP Internal Medicine; Visit Provider Internal Medicine | DX: J10.1 Influenza due to other identified influenza virus with other respiratory manifestations (principal); I50.9 Heart failure, unspecified | CPT/HCPCS: 99223; 99232; 99239 ==

== ENCOUNTER 2023-06-26 16:08 | Emergency (ER) | payer MEDICARE, OTHER, SELFPAY ==
--- NOTE | ~2023-06-26 | XR_ITS ---
EXAMINATION: PORTABLE CHEST 1 VIEW CLINICAL INFORMATION: cough. COMPARISON: 05/16/2023. TECHNIQUE: Portable frontal view of the chest was obtained. FINDINGS: Mild asymmetric elevation of the right hemidiaphragm is again seen. There is central vascular prominence without overt edema when compared to the prior study. No significant effusion or pneumothorax. Cardiac silhouette is enlarged with vascular calcification aorta. TAVR stent is present. Degenerative changes in the shoulders and spine. XR/XR chest 1V IMPRESSION: Chronic appearing changes similar to the prior study. There is central vascular prominence but no overt edema when compared to the prior study.
--- NOTE | ~2023-06-26 | US_ITS ---
EXAMINATION: US VENOUS ULTRASOUND WITH DOPPLER LOWER EXTREMITY, BILATERAL CLINICAL INFORMATION: Pain COMPARISON: Left lower extremity duplex on 11/09/22 TECHNIQUE: Ultrasound of the deep veins is performed from the hip to the calf with compression sonography and color and pulse Doppler assessment. Spectral analysis with color-flow imaging is performed. FINDINGS: RIGHT: There is normal venous compression and respiratory variation and augmented flow. The visualized common femoral vein, superficial femoral vein, profunda femoral vein, popliteal vein, and the trifurcation region shows no evidence of deep venous thrombosis. There is no significant popliteal fossa cyst. Calf edema. LEFT: There is normal venous compression and respiratory variation and augmented flow. The visualized common femoral vein, superficial femoral vein, profunda femoral vein, popliteal vein, and the trifurcation region shows no evidence of deep venous thrombosis. There is no significant popliteal fossa cyst. Calf edema. If the patient's symptoms persist, followup ultrasound in 5 days 7 days might be of value to exclude proximal propagation from a non-visualized calf vein. US/US venous duplex LE BI IMPRESSION: No DVT demonstrated in the bilateral lower extremity.
[2023-06-26 16:20] VITALS: BP 138/88; BP 151/64; PULSE 103; PULSE 67; RESP 18; TEMP 36.7; O2SAT 94; O2SAT 95; BMI 32.5
--- NOTE | 2023-06-26 16:25 | ECG_ITS ---
Test Reason : WEAKNESS Blood Pressure : / mmHG Vent. Rate : 067 BPM Atrial Rate : 000 BPM P-R Int : 000 ms QRS Dur : 150 ms QT Int : 528 ms P-R-T Axes : 000 075 -31 degrees QTc Int : 557 ms Atrial fibrillation Right bundle branch block T wave abnormality, consider inferior ischemia Abnormal ECG When compared with ECG of 10-MAY-2023 13:32, No significant change was found Referred By: Generic ED Physician Electronically Signed By:CYRIL ART MD
[2023-06-26 16:51] LABS: MANUAL DIFF FLAG NO
[2023-06-26 16:58] LABS: Basophils Percent Auto 0.6 % (0-2); Eosinophils Absolute Auto 0.2 X10*3/uL (0.0-0.4); Eosinophils Percent Auto 3.2 % (0-4); Hematocrit 31.5 % (37.0-47.0); Hemoglobin 9.6 g/dl (12.0-16.0); Imm Gran Abs Auto 0.03 X10*3/uL (0.00-0.03); Imm Gran Pct Auto 0.4 % (0.0-0.4); Lymphocytes Absolute Auto 1.1 X10*3/uL (1.2-4.9); Lymphocytes Percent Auto 15.8 % (20-40); Mean Corpuscular HGB Conc 30.5 g/dl (31.0-35.0); Mean Corpuscular Volume 88.7 fL (80.0-98.0); Mean Platelet Volume 9.8 fL (9.4-12.3); Monocytes Absolute Auto 0.7 X10*3/uL (0.1-1.2); Monocytes Percent Auto 10.5 % (2-11); Neutrophils Absolute Auto 4.9 x10*3/uL (2.0-8.3); Neutrophils Percent Auto 69.5 % (45-73); Platelet Count 199 X10*3/uL (160-400); Red Blood Count 3.55 X10*6/uL (4.20-5.50); Red Cell Distribution Width 16.7 % (11.0-16.0); White Blood Count 7.1 X10*3/uL (4.8-10.8)
[2023-06-26 17:06] LABS: Alanine Aminotransferase 10 U/L (0-31); Albumin Level 3.4 g/dL (3.5-5.0); Alkaline Phosphatase 113 U/L (39-117); Anion Gap 19 (12-20); Aspartate Amino Transferase 23 U/L (5-31); Bilirubin Total 0.5 mg/dL (0.0-1.0); Blood Urea Nitrogen 29 mg/dL (9-16); Calcium 9.4 mg/dL (8.4-10.2); Carbon Dioxide 28 mmol/L (22-29); Chloride 100 mmol/L (96-108); Estimated Glomerular Filt Rate 58; Glucose Random 111 mg/dL (60-115); Potassium 3.6 mmol/L (3.3-5.1); Sodium 143 mmol/L (135-145); Total Protein 8.5 g/dL (6.5-8.0)
[2023-06-26 17:12] LABS: Troponin-I High Sensitivity 22.8 ng/L (<3.5-17.0)
[2023-06-26 17:29] LABS: Influenza A PCR NEGATIVE (Negative); Influenza B PCR NEGATIVE (Negative); Resp Syncy Virus RNA Qual PCR NEGATIVE (Negative); SARS COV2 PCR INHOUSE NEGATIVE (Negative)
[2023-06-26 18:33] VITALS: BP 141/59; PULSE 56; RESP 15; TEMP 36.5; O2SAT 88
--- NOTE | 2023-06-26 18:37 | PC.NURSE ---
pt desat to 88% - placed pt on 2L oxymask at this time. Jose Manuel CAMPUZANO made aware.
--- NOTE | 2023-06-26 19:39 | ED.GENADULT ---
HPI - General Adult General Chief complaint: Weakness Stated complaint: leg pain Time Seen by Provider: 06/26/23 17:46 Source: patient, RN notes reviewed and old records reviewed Mode of arrival: EMS Limitations: no limitations History of Present Illness HPI narrative: 83-year-old female with past medical history significant for congestive heart failure, AFib maintained on Coumadin, left leg edema, type 2 diabetes, obesity, rheumatoid arthritis, hypertension presents for evaluation of weakness. Patient reports that she was discharged home from rehab 2 days ago. She reports having increased cough in the last couple of days leading up to her discharge. She states that her cough and shortness of breath have worsened since going home 2 days ago She states that she was unable to get out of her recliner today due to weakness. She denies any fevers, chills. She does state that her cough is productive of green sputum. Denies any chest pain, abdominal pain, nausea vomiting Related Data Home Medications ?Medication ?Instructions ?Recorded ?Confirmed acetaminophen 500 mg capsule 500 mg PO Q6H PRN Pain 09/15/22 05/10/23 acetaminophen 500 mg tablet 500 mg PO BEDTIME 05/05/23 05/10/23 cholecalciferol (vitamin D3) 125 125 mcg PO PICKARD 05/05/23 05/10/23 mcg (5,000 unit) tablet Previous Rx's ?Medication ?Instructions ?Recorded blood sugar diagnostic #250 ea 07/29/21 blood-glucose meter (OneTouch #1 ea 07/29/21 Ultra2 Meter kit) Hospital bed #1 ea 09/16/21 metoprolol tartrate 25 mg tablet 12.5 mg (1/2 x 25 mg) PO BID 90 07/26/22 days #90 tabs hospital mattress #1 ea 08/10/22 blood sugar diagnostic (OneTouch #100 ea 12/01/22 Ultra Test strips) blood-glucose meter #1 ea 12/01/22 lancets #100 ea 12/01/22 simvastatin 20 mg tablet 20 mg PO DAILY #90 tabs 12/08/22 sertraline 25 mg tablet (Zoloft) 25 mg PO DAILY #90 tabs 03/07/23 INR strips ACELIS #60 ea 03/11/23 prothrombin time test strips #48 ea 03/11/23 warfarin 3 mg tablet (Jantoven) 3 mg PO DAILY@1800 #30 tabs 05/08/23 furosemide 40 mg tablet 40 mg PO DAILY #30 tabs 05/16/23 Allergies Allergy/AdvReac Type Severity Reaction Status Date / Time shellfish derived Allergy Unknown itchy Verified 06/26/23 16:23 procaine [From Novocain] AdvReac Unknown makes Verified 06/26/23 16:23 patient itchy,puffy Review of Systems Constitutional: Constitutional: Denies body ache(s), Denies chills, Denies fever(s), Reports malaise and Reports weakness Eyes: Eyes: Denies blurry vision ENT: Denies sore throat Cardiovascular: Cardiovascular: Denies chest pain and Reports dyspnea Respiratory: Respiratory: Reports change in phlegm color, Reports chest congestion, Reports cough and Reports dyspnea Gastrointestinal: Gastrointestinal: Denies abdominal pain, Denies nausea and Denies vomiting Musculoskeletal: Musculoskeletal: Denies back pain Integumentary/Breasts: Skin/Breast: Denies rash Neurologic: Reports weakness PMFSH Past Medical History Medical History Influenza A Persistent atrial fibrillation Chronic hypoxemic respiratory failure Rash Constipation Impaired mobility and ADLs Pulmonary hypertension Chronic diastolic (congestive) heart failure Pancytopenia Congestive heart failure Pulmonary hypertension Nonrheumatic aortic valve stenosis CHF exacerbation Acute pyelonephritis Chronic anticoagulation Pneumonia (HFpEF) heart failure with preserved ejection fraction Sepsis Lumbar vertebral fracture CVA (cerebral vascular accident) TIA (transient ischemic attack) Uterine cancer Anxiety and depression Obesity (BMI 30-39.9) Rheumatoid arthritis Hypercholesterolemia Hypertension Atrial fibrillation Type 2 diabetes mellitus with hyperglycemia Surgical History Status post transcatheter aortic valve replacement History of transcatheter aortic valve replacement (TAVR) (~06/19/21) History of colonoscopy History of appendectomy History of right knee joint replacement History of left knee replacement S/P ANTONIO-BSO Family History Family History Father Diabetes CAD (coronary artery disease) Mother Diabetes Hypertension Perforated ulcer Sister Diabetes Social History Social History Household Members: Spouse Housing: House Housing Other:: lives with spouse Do you presently have visiting nurse or other home services: Yes Alcohol intake: never Comment: 1:1 sitter Patient Tobacco Use Status: Never used Tobacco Smoked in Last 30 Days: No e-Cigarette/Vaping Use: Never Used Second Hand Smoke Exposure: No Use of substances other than those prescribed or required for medical reasons: No Advance Directives: Yes Advance Directives on File: Yes Advance Directives Date on File: 09/03/21 Do you have a plan to hurt others: No Plan service: No Current occupational status: retired 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[employer], [place] Current occupational exposures/hazards: No Cognitive needs: Yes (cane, walker) Hearing needs: No Vision needs: Yes (glasses) Physical Exam ED Vital Signs: Vital Signs - 24 hr 06/26/23 16:20 06/26/23 18:33 06/26/23 20:14 Temperature 98.1 F 97.7 F 97.3 F Pulse Rate 67 56 62 Respiratory Rate 18 15 18 Blood Pressure 151/64 H 141/59 H 168/66 H Pulse Oximetry 94 88 L 98 Oxygen Delivery Method Room Air Room Air Oxymask Oxygen Flow Rate 2 06/26/23 21:05 06/26/23 22:29 06/26/23 22:43 Temperature 98.0 F Pulse Rate 54 52 Respiratory Rate 18 14 Blood Pressure 177/69 H 182/68 H 154/57 H Pulse Oximetry 98 98 Oxygen Delivery Method Oxymask Oxymask Oxygen Flow Rate 2 2 06/27/23 02:20 06/27/23 05:57 06/27/23 07:17 Temperature 98.0 F 98.1 F Pulse Rate 65 77 85 Respiratory Rate 17 21 H Blood Pressure 167/61 H 175/62 H Pulse Oximetry 95 96 97 Oxygen Delivery Method Oxymask Nasal Cannula Oxygen Flow Rate 2 1 06/27/23 08:00 Temperature Pulse Rate 85 Respiratory Rate 18 Blood Pressure Pulse Oximetry 97 Oxygen Delivery Method Room Air Oxygen Flow Rate BMI result Body Mass Index 32.5 Const General: healthy appearing, comfortable, no acute distress, alert and awake Nutritional Appearance: well nourished Orientation/consciousness: patient oriented x3 HENMT Head: Yes normocephalic and Yes atraumatic Eyes Eyelids: Yes eyelids normal Conjunctivae: conjunctivae normal Sclerae: sclerae normal Corneas: corneas normal Pupils: Equal, round and reactive pupils present EOM: EOMs intact bilaterally Neck Neck: Yes full ROM Resp Other: Diminished breath sounds bilaterally, but otherwise clear to auscultation Effort & Inspection: normal respiratory effort, able to speak in complete sentences and not labored Auscultation: clear to auscultation bilaterally Cardio Other: 2-3+ bilateral pitting edema, left greater than right Rate: not tachycardic Rhythm: abnormal rhythm irregularly irregular GI Inspection: No distended Palpation (GI): Soft to palpation, not firm, nontender, no guarding and not rigid Skin General skin exam: elasticity normal Neuro General: patient oriented x3 Cranial nerves: Yes Equal, round and reactive pupils present and Yes Bilaterally intact EOM present Cognition (Neuro): normal cognition Course Course Course Narrative: 06/27/23 08:36 Physician observation continued, no overnight events reported by nursing. Patient complaining of hacking cough and requesting cough medicine, benzonatate ordered. PT/CM evaluations pending. 06/27/23 11:14 Per Jane from , patient will be going to [facility] via BLS at 14:00. Observation care revealed that patient does not meet medical necessity for hospitalization. Final disposition discussed with patient. The patient completed observation care at 14:00, total time in observation care was 15 hours. Reevaluation(s) Reevaluation #1: Patient's medical workup largely unremarkable, she would have 1 brief episode of hypoxia to 88% while she was sleeping. She was placed on p.r.n. oxygen. I will give her a dose of Lasix 40 mg IV. Patient's INR is critical at 5 0., she is not bleeding. Plan to hold Coumadin Time: 20:37 Reevaluation #2: Patient resting comfortably, she is too weak to be discharged home if she can not stand her own. Plan for physical therapy evaluation and case management in involvement. Physician observation started. Patient did test positive for UTI, she will be given Ceftin b.i.d. x5 days. This was started in the ER Time: 23:43 Medications Administered Generic Name Dose Route Start Last Admin Trade Name Freq PRN Reason Stop Dose Admin Cefuroxime Axetil 250 mg 06/27/23 00:15 06/27/23 08:58 Cefuroxime Axetil 250 Mg Tablet PO 07/01/23 09:01 250 mg BID KIKI Administration Discontinued Medications Generic Name Dose Route Start Last Admin Trade Name Nelson PRN Reason Stop Dose Admin Benzonatate 100 mg 06/27/23 04:29 06/27/23 04:34 Benzonatate 100 Mg Capsule PO 06/27/23 04:30 100 mg ONCE ONE Administration Benzonatate 100 mg 06/27/23 08:38 06/27/23 08:58 Benzonatate 100 Mg Capsule PO 06/27/23 08:39 100 mg ONCE ONE Administration Furosemide 40 mg 06/26/23 20:37 06/26/23 21:05 Furosemide 40 Mg/4 Ml Vial IVPUSH 06/26/23 20:38 40 mg STAT STA Administration Protocol Medical Decision Making Medical Decision Making [facility] Narrative: 83-year-old female presents for evaluation of weakness and shortness of breath. Patient reports her symptoms have started to worsen last couple of days. She has a long history of congestive heart failure. She does not have a history of COPD. Her lungs are clear to auscultation but diminished. Patient's chest x-ray shows chronic appearing changes. There is central vascular prominence but no overt edema or pleural effusions compared to previous studies. Patient is quite comfortable appearing. She has no leukocytosis. She does have a chronic anemia which is consistent with her baseline. There is no left shift. Patient's electrolytes are within normal limits, her troponin is slightly elevated 22.8 which is consistent with a rate was in April of 2023. She has no chest pain. Differential Diagnosis Differential Diagnoses: The differential diagnosis associated with the presentation includes Failure to thrive CHF Weakness DVT Dependent edema Pneumonia Admission/Observation Consideration of admission/observation: Escalation of care including admission/observation considered Consider observation due to leg swelling and shortness of breath the patient does not have overt signs of CHF on x-ray Lab Data [facility] Lab Attestation statement: I reviewed the patient's lab results. See above 06/26/23 16:47 06/26/23 16:47 Labs: Lab Results 06/26/23 06/26/23 06/26/23 Range/Units 16:43 16:47 20:54 WBC 7.1 (4.8-10.8) X10*3/uL RBC 3.55 L D (4.20-5.50) X10*6/uL Hgb 9.6 L (12.0-16.0) g/dl Hct 31.5 L D (37.0-47.0) % MCV 88.7 (80.0-98.0) fL MCH 27.0 (27.0-33.0) pg MCHC 30.5 L (31.0-35.0) g/dl RDW 16.7 H (11.0-16.0) % Plt Count 199 D (160-400) X10*3/uL MPV 9.8 (9.4-12.3) fL Immature Gran % (Auto) 0.4 (0.0-0.4) % Neut % (Auto) 69.5 (45-73) % Lymph % (Auto) 15.8 L (20-40) % [place] % (Auto) 10.5 (2-11) % Eos % (Auto) 3.2 (0-4) % Baso % (Auto) 0.6 (0-2) % Lymph # (Auto) 1.1 L (1.2-4.9) X10*3/uL [place] # (Auto) 0.7 (0.1-1.2) X10*3/uL Eos # (Auto) 0.2 (0.0-0.4) X10*3/uL Baso # (Auto) 0.0 (0.0-0.2) X10*3/uL Abs Immat Gran (auto) 0.03 (0.00-0.03) X10*3/uL Absolute Neuts (auto) 4.9 (2.0-8.3) x10*3/uL Absolute Nucleated RBC 0.000 (0.0-0.012) X10*3/uL Nucleated RBC % (auto) 0.0 (0.0-0.2) /100WBC PT 60.9 H D (11.1-13.3) SEC INR 5.0 H* (0.9-1.1) Sodium 143 (135-145) mmol/L Potassium 3.6 (3.3-5.1) mmol/L Chloride 100 (96-108) mmol/L Carbon Dioxide 28 (22-29) mmol/L Anion Gap 19 (12-20) BUN 29 H (9-16) mg/dL Creatinine 0.92 (0.5-1.4) mg/dL Estim Creat Clear Calc 42.0 Estimated GFR 58 Random Glucose 111 (60-115) mg/dL Calcium 9.4 (8.4-10.2) mg/dL Total Bilirubin 0.5 (0.0-1.0) mg/dL AST 23 (5-31) U/L ALT 10 (0-31) U/L Alkaline Phosphatase 113 (39-117) U/L Troponin I High Sens 22.8 H (<3.5-17.0) ng/L B-Natriuretic Peptide 343 H (<100) pg/mL Total Protein 8.5 H (6.5-8.0) g/dL Albumin 3.4 L (3.5-5.0) g/dL Urine Color Urine Appearance Urine pH (5.0-9.0) Ur Specific [place] (1.005-1.025) Urine Protein (Neg-Trace) mg/dL Urine Glucose (UA) (Negative) mg/dL Urine Ketones (Negative) mg/dL Urine Blood (Negative) Urine Nitrite (Negative) Ur Leukocyte Esterase (Negative) Urine RBC (0-2) /HPF Urine WBC (0-5) /HPF Ur Squamous Epith Cells (0-2) /HPF Urine Bacteria (None Seen) Hyaline Casts (0-2) /LPF Influenza Type A (PCR) NEGATIVE (Negative) Influenza Type B (PCR) NEGATIVE (Negative) RSV RNA Qual (PCR) NEGATIVE (Negative) SARS-CoV-2 RNA (RT-PCR) NEGATIVE (Negative) 06/26/23 Range/Units 23:30 WBC (4.8-10.8) X10*3/uL RBC (4.20-5.50) X10*6/uL Hgb (12.0-16.0) g/dl Hct (37.0-47.0) % MCV (80.0-98.0) fL MCH (27.0-33.0) pg MCHC (31.0-35.0) g/dl RDW (11.0-16.0) % Plt Count (160-400) X10*3/uL MPV (9.4-12.3) fL Immature Gran % (Auto) (0.0-0.4) % Neut % (Auto) (45-73) % Lymph % (Auto) (20-40) % [place] % (Auto) (2-11) % Eos % (Auto) (0-4) % Baso % (Auto) (0-2) % Lymph # (Auto) (1.2-4.9) X10*3/uL [place] # (Auto) (0.1-1.2) X10*3/uL Eos # (Auto) (0.0-0.4) X10*3/uL Baso # (Auto) (0.0-0.2) X10*3/uL Abs Immat Gran (auto) (0.00-0.03) X10*3/uL Absolute Neuts (auto) (2.0-8.3) x10*3/uL Absolute Nucleated RBC (0.0-0.012) X10*3/uL Nucleated RBC % (auto) (0.0-0.2) /100WBC PT (11.1-13.3) SEC INR (0.9-1.1) Sodium (135-145) mmol/L Potassium (3.3-5.1) mmol/L Chloride (96-108) mmol/L Carbon Dioxide (22-29) mmol/L Anion Gap (12-20) BUN (9-16) mg/dL Creatinine (0.5-1.4) mg/dL Estim Creat Clear Calc Estimated GFR Random Glucose (60-115) mg/dL Calcium (8.4-10.2) mg/dL Total Bilirubin (0.0-1.0) mg/dL AST (5-31) U/L ALT (0-31) U/L Alkaline Phosphatase (39-117) U/L Troponin I High Sens (<3.5-17.0) ng/L B-Natriuretic Peptide (<100) pg/mL Total Protein (6.5-8.0) g/dL Albumin (3.5-5.0) g/dL Urine Color Yellow Urine Appearance Cloudy Urine pH 5.5 (5.0-9.0) Ur Specific [place] 1.015 (1.005-1.025) Urine Protein Negative (Neg-Trace) mg/dL Urine Glucose (UA) Negative (Negative) mg/dL Urine Ketones Negative (Negative) mg/dL Urine Blood Negative (Negative) Urine Nitrite Positive H (Negative) Ur Leukocyte Esterase Large (3+) H (Negative) Urine RBC 0-2 (0-2) /HPF Urine WBC >50 H (0-5) /HPF Ur Squamous Epith Cells 6-10 (0-2) /HPF Urine Bacteria 4+ (None Seen) Hyaline Casts 3-5 (0-2) /LPF Influenza Type A (PCR) (Negative) Influenza Type B (PCR) (Negative) RSV RNA Qual (PCR) (Negative) SARS-CoV-2 RNA (RT-PCR) (Negative) Independent Interpretation I performed an independent interpretation of an: Plain X-Ray (No pleural effusions) Radiology Impression Discussion of test interpretation with radiology: I have reviewed the radiologist's reading. Radiologist Impression: IMPRESSION: Chronic appearing changes similar to the prior study. There is central vascular prominence but no overt edema when compared to the prior study. Discharge Plan Discharge Clinical Impression: Adult failure to thrive, Congestive heart failure, Acute UTI Patient Disposition: Still a Patient Prescriptions: No Action (DME) Hospital bed See Rx Instructions .Route .MEDSUPPLY Qty: 1 0RF Rx Instructions: As directed metoprolol tartrate 25 mg tablet 12.5 mg PO BID 90 Days Qty: 90 2RF (DME) hospital mattre See Rx Instructions .Route .MEDSUPPLY Qty: 1 0RF Rx Instructions: As directed ([facility] [place] blood-glucose meter Kit See Rx Instructions .ROUTE .MEDSUPPLY Qty: 1 0RF Rx Instructions: As directed check the blood sugar once a day (DME) OneTouch Ultra Test Strip See Rx Instructions .ROUTE .MEDSUPPLY Qty: 100 3RF Rx Instructions: As directed check the blood sugar once a day (DME) lancets Misc See Rx Instructions .ROUTE .MEDSUPPLY Qty: 100 0RF Rx Instructions: As directed check the blood sugar once a day simvastatin 20 mg tablet 20 mg PO DAILY Qty: 90 3RF sertraline [Zoloft] 25 mg tablet 25 mg PO DAILY Qty: 90 0RF (DME) prothrombin time test strips Strip See Rx Instructions .Route Qty: 48 12RF Rx Instructions: As directed (DME) INR strips ACELIS See Rx Instructions .Route .MEDSUPPLY Qty: 60 12RF Rx Instructions: As directed acetaminophen 500 mg Tablet 500 mg PO BEDTIME cholecalciferol (vitamin D3) 125 mcg (5,000 unit) Tablet 125 mcg PO PICKARD warfarin [Jantoven] 3 mg Tablet 3 mg PO DAILY@1800 Qty: 30 0RF furosemide 40 mg tablet 40 mg PO DAILY Qty: 30 0RF Rx Instructions: or as directed (DME) blood-glucose meter [[employer] Ultra2 Meter] Kit See Rx Instructions .ROUTE .MEDSUPPLY Qty: 1 0RF Rx Instructions: As directed check the blood sugar once a day (DME) blood sugar diagnostic Strip See Rx Instructions .ROUTE .MEDSUPPLY Qty: 250 3RF Rx Instructions: Twice a day acetaminophen 500 mg capsule 500 mg PO Q6H PRN (Reason: Pain) Referrals: [facility] [Outside] Print Language: Monegasque
[2023-06-26 20:14] VITALS: BP 168/66; PULSE 62; RESP 18; TEMP 36.3; O2SAT 98
[2023-06-26 20:29] LABS: B Type Natriuretic Peptide 343 pg/mL (<100)
[2023-06-26 21:05] VITALS: BP 177/69
[2023-06-26] MEDS: Furosemide 40 MG/4 ML VIAL IVPUSH (21:05)
[2023-06-26 21:09] LABS: Prothrombin Time 60.9 SEC (11.1-13.3)
--- NOTE | 2023-06-26 21:14 | MHC.EDTECH ---
Nurse is at bedside with Tech Venkatack was place Plan of care is ongoing
[2023-06-26 22:29] VITALS: BP 182/68; PULSE 54; RESP 18; TEMP 36.7; O2SAT 98
--- NOTE | 2023-06-26 22:30 | PC.NURSE ---
BP 182/68, P 54-61, O2 Sat 98% on oxymask at 2 LPM. Jose Manuel, ED provider informed of elevated BP, no new orders at this time.
[2023-06-26 22:43] VITALS: BP 154/57; PULSE 52; RESP 14; O2SAT 98
--- NOTE | 2023-06-26 23:42 | PC.NURSE ---
Patient requesting to take off oxymask, saturating 95-97% RA.
[2023-06-26 23:43] LABS: Appearance Urine Cloudy; Color Urine Yellow; Glucose Urine UA Negative (Negative); Leukocyte Esterase Urine Large (3+) (Negative); Nitrite Urine Positive (Negative); PH 5.5 (5.0-9.0); Specific Gravity - Urine 1.015 (1.005-1.025); UMIC TRIGGER UACC YES; Urine Blood Negative (Negative); Urine Ketones Negative (Negative); Urine Protein Negative (Neg-Trace)
[2023-06-27 00:03] LABS: Bacteria Urine 4+ (None Seen); RBC Urine 0-2 /HPF (0-2); UACC Culture Trigger YES; WBC Urine >50 /HPF (0-5)
[2023-06-27] MEDS: cefuroxime axetiL 250 MG TABLET PO ×2 (01:24→08:58)
--- NOTE | 2023-06-27 01:26 | PC.NURSE ---
O2 Sat 88-89% RA, Oxymask reapplied at 2 LPM, saturating 97-99%.
[2023-06-27 02:20] VITALS: BP 167/61; PULSE 65; RESP 17; TEMP 36.7; O2SAT 95
[2023-06-27] MEDS: Benzonatate 100 MG CAPSULE PO ×2 (04:34→08:58)
[2023-06-27 05:57] VITALS: BP 175/62; PULSE 77; RESP 21; TEMP 36.7; O2SAT 96
--- NOTE | 2023-06-27 07:06 | PC.NURSE ---
BP 183/78, P 74, O2 Sat 97% on O2 at [address] Higgins informed, no new orders at this time.
[2023-06-27 07:17] VITALS: PULSE 85; O2SAT 97
[2023-06-27 08:00] VITALS: PULSE 85; RESP 18; O2SAT 97
--- NOTE | 2023-06-27 08:59 | PC.NURSE ---
sating 97% on 1 l NC, o2 removed to trial titration
--- NOTE | 2023-06-27 09:56 | MHC.CM.ED ---
Addendum entered by Jane Hopkins 06/27/23 10:49: [facility] is able to offer a bed. David BERANBE booked for 2pm. Patient, Vanna RN and Kendra BARRIENTOS aware. Left voicemail for step-daughter, Emily. Original Note: Received case management consult overnight. Patient came to the ER due to leg pain. Patient received IV lasix. Otherwise, work up essentially negative. Physical therapy eval completed. Short term rehab is recommended. Attempted to meet with patient in regards to discahrge planning. Nursing care currently being provided. Spoke with patient's step-daughter, Emily, via telephone at [phone]. Emily verifies patient was discharged from [facility] on 06/23. Branden VAZQUEZ has seen patient 1 time since d/c. There are a lot of family dynamics in their family. It appears patient's daughter, Cecy, picked patient up from rehab. Patient was having difficulty breathing while ambulating so Emily and patient's son, Brandin, were questioning if patient was actually safe to d/c. Cecy felt patient was. Emily requesting referral to [facility]. Also requested T/W speak to Brandin. Attempted to speak to Brandin, via telephone at [phone]. Left message requesting return telephone call. Referral made to [facility]. Continue to monitor for d/c needs.
--- NOTE | 2023-06-27 13:10 | PC.NURSE ---
Multiple attempts to give report to [facility] unsuccessful
[2023-06-27 13:25] VITALS: BP 170/63; PULSE 71; RESP 16; TEMP 36.5; O2SAT 98
[2023-06-27 13:33] VITALS: BP 170/63; PULSE 71; RESP 16; TEMP 36.5; O2SAT 98
== END 2023-06-27 15:53 ==
PROVIDERS: Physician Assistant; Emergency Provider Emergency Medicine; PCP Internal Medicine
DX: N39.0 Urinary tract infection, site not specified (principal); R53.1 Weakness; R62.7 Adult failure to thrive; R60.0 Localized edema; E11.9 Type 2 diabetes mellitus without complications; I50.9 Heart failure, unspecified; I48.91 Unspecified atrial fibrillation; R05.9 Cough, unspecified; R26.81 Unsteadiness on feet; R06.02 Shortness of breath; Z11.52 Encounter for screening for COVID-19; Z20.822 Contact with and (suspected) exposure to COVID-19; Z79.01 Long term (current) use of anticoagulants; Z79.899 Other long term (current) drug therapy
CPT/HCPCS: 0241U; 36415; 71045; 80053; 81001; 83880; 84484; 85025; 85610; 87086; 87088; 87186; 93005; 93970; 96374; 97161; 99285; J1940

== ENCOUNTER → 2023-06-26 16:25 | Outpatient (BNV) | payer MEDICARE, OTHER, SELFPAY | PROVIDERS: Emergency Provider Emergency Medicine; Visit Provider Internal Medicine Cardiovascular Disease | DX: I48.91 Unspecified atrial fibrillation (principal) | CPT/HCPCS: 93010 ==

== ENCOUNTER 2023-09-29 11:23 | Inpatient (IN) | payer MEDICARE, OTHER, SELFPAY ==
[2023-09-29] VITALS (12 sets, daily range): BP systolic 102–126; BP diastolic 31–74; PULSE 71–86; RESP 16–24; TEMP 36.6–37.4; O2SAT 89–100; BMI 31.5
--- NOTE | ~2023-09-29 | US_ITS ---
EXAMINATION: US VENOUS ULTRASOUND WITH DOPPLER LOWER EXTREMITY, LEFT CLINICAL INFORMATION: Follow-up left femoral DVT COMPARISON: Prior ultrasound exams most recent June 2023 TECHNIQUE: Ultrasound of the deep veins is performed from the hip to the calf with compression sonography and color and pulse Doppler assessment. Spectral analysis with color-flow imaging is performed. FINDINGS: Exam is incomplete as the patient could not tolerate compression beginning at the level of the popliteal vein There is normal venous compression and respiratory variation and augmented flow. The visualized common femoral vein, superficial femoral vein, profunda femoral vein, and popliteal vein There is no significant popliteal fossa cyst. If the patient's symptoms persist, followup ultrasound in 5 days 7 days might be of value to exclude proximal propagation from a non-visualized calf vein. US/US venous duplex LE LT IMPRESSION: No DVT demonstrated in the left lower extremity. Exam is limited to the level of the popliteal vein. Patient could not tolerate examination of the calf veins
--- NOTE | ~2023-09-29 | CT_ITS ---
EXAMINATION: CT gi bleed abd pel wo/w IVcon CLINICAL INFORMATION: epigastric pain bright red stool COMPARISON: CT abdomen/pelvis 11/09/2022. TECHNIQUE: Multiphase multidetector volumetric imaging was performed through the abdomen and pelvis pre and post 85 mL of Omnipaque 350 intravenous contrast. Sagittal and coronal reformatted images were obtained on the technologist's workstation. Axial MIP volume rendering provided. This CT examination was performed using dose optimization techniques as appropriate, variously including the following: * Automated exposure control * Adjustment of mA and/or kV according to patient size (this includes techniques or standardized protocols for targeted exams where dose is matched to indication/reason for exam; i.e. extremities or head) Use of iterative reconstruction technique DLP: 1984 mGy-cm FINDINGS: CHEST: VISUALIZED CHEST: Right lower lobe calcified granulomas. No suspicious pulmonary nodule. Bibasilar atelectasis/fibrosis. No pleural effusion. Cardiomegaly without pericardial effusion. TAVR in place. Bulky mitral valve calcifications. Coronary arterial calcifications noted. LIVER, GALLBLADDER, BILIARY TREE: Diffusely heterogeneous liver attenuation can be seen with hepatocellular disease.. No suspicious focal hepatic lesion or biliary ductal dilatation is present. Cholelithiasis without gallbladder wall thickening or pericholecystic stranding. PANCREAS: Normal; no mass or surrounding fluid. SPLEEN: Mild splenomegaly measuring up to 12.5 cm maximum craniocaudal dimension (improved from 15 cm previously), with extensive arterial calcifications. Ill-defined hypodense lower pole lesion measuring approximately 1.5 cm (series #13 and coronal image 76). Lateral wedge-shaped scarring is favored to represent sequela of prior infarct. ADRENAL GLANDS: Normal; no mass. KIDNEYS AND URETERS: Multifocal cortical scarring again seen bilaterally. Symmetric nephrograms. Nonobstructing 0.3 and 0.4 cm right renal calculi. Left renal lower pole nonobstructing 0.3 cm calculus. No hydronephrosis or hydroureter. Bilateral low density lesions likely represent cysts. BLADDER: No focal mass or wall thickening seen. No bladder calculi. PELVIC VISCERA: Uterus is atrophic versus surgically absent. GASTROINTESTINAL TRACT: The lateral wall of the descending colon is out of [id number]. No visualized contrast extravasation to suggest active gastrointestinal bleeding. Moderate scattered colonic diverticulosis without evidence of acute diverticulitis. The colon and small bowel are nondilated. The appendix is unremarkable. PERITONEAL SPACE: No significant free air or free fluid identified. ABDOMINAL WALL: No significant hernia is appreciated. LYMPHOVASCULAR STRUCTURES: Lymph nodes: Retroperitoneal and bilateral iliac chain lymphadenopathy increased in size from prior, including a right-sided node measuring up to 1.6 cm in short axis (series #16 axial image 144), a left-sided now measuring up to 1.6 cm in short axis (axial image 125) and a retroperitoneal lymph node measuring up to 1.2 cm in short axis (axial image 113). Vascular: The aorta is nonaneurysmal with moderate scattered atheromatous calcifications. OSSEOUS STRUCTURES: No acute or suspicious osseous abnormality. Redemonstration of L2 compression deformity. Moderate multilevel thoracolumbar spondylosis. CT/CT gi bleed abd pel wo/w IVcon IMPRESSION: 1. No visualized contrast extravasation to suggest active gastrointestinal bleeding, though the lateral wall of the descending colon is out of [id number]. 2. Moderate scattered colonic diverticulosis without evidence of acute diverticulitis. 3. Retroperitoneal and bilateral iliac chain lymphadenopathy increased in size from prior. 4. Mild splenomegaly, decreased from prior. 5. Heterogeneous liver attenuation, which can be seen with hepatocellular disease. 6. Cholelithiasis without evidence for acute cholecystitis. 7. Bilateral nonobstructing renal calculi.
--- NOTE | ~2023-09-29 | US_ITS ---
EXAMINATION: US VENOUS ULTRASOUND WITH DOPPLER LOWER EXTREMITY, LEFT CLINICAL INFORMATION: Follow-up left femoral DVT. COMPARISON: Venous ultrasonography 10/01/2023. Venous ultrasonography bilateral lower extremity 06/26/2023. TECHNIQUE: Ultrasound of the deep veins is performed from the hip to the calf with compression sonography and color and pulse Doppler assessment. Spectral analysis with color-flow imaging is performed. FINDINGS: There is normal venous compression and respiratory variation and augmented flow. The visualized common femoral vein, superficial femoral vein, profunda femoral vein, popliteal vein, and the trifurcation region shows no evidence of deep venous thrombosis. There is no significant popliteal fossa cyst. If the patient's symptoms persist, followup ultrasound in 5 days 7 days might be of value to exclude proximal propagation from a non-visualized calf vein. US/US venous duplex LE LT IMPRESSION: No DVT demonstrated in the left lower extremity.
--- NOTE | ~2023-09-29 | XR_ITS ---
EXAMINATION: XR CHEST CLINICAL INFORMATION: SOB and chest pain. COMPARISON: Chest 06/26/2023 TECHNIQUE: Frontal view of the chest was obtained. FINDINGS: The lungs are expanded and clear of acute pneumonic process. Heart size is enlarged. Pulmonary vascularity is normal. There are mild degenerative changes in bilateral shoulder joints. XR/XR chest 1V IMPRESSION: Mild cardiomegaly otherwise no acute process seen.
--- NOTE | 2023-09-29 11:34 | ECG_ITS ---
Test Reason : CP Blood Pressure : / mmHG Vent. Rate : 068 BPM Atrial Rate : 000 BPM P-R Int : 000 ms QRS Dur : 148 ms QT Int : 484 ms P-R-T Axes : 000 051 -29 degrees QTc Int : 514 ms Atrial fibrillation Right bundle branch block T wave abnormality, consider inferolateral ischemia Abnormal ECG When compared with ECG of 26-JUN-2023 16:35, No significant change was found Referred By: Generic ED Physician Electronically Signed By:JESÚS TAYLOR
--- NOTE | 2023-09-29 11:41 | ED_ITS ---
HPI - GI Bleed General Chief complaint: GI Bleed Stated complaint: ABD PAIN,TARRY STOLS?GI BLEED Time Seen by Provider: 09/29/23 11:38 Source: patient Limitations: other (The patient lacks insight as to why she is) History of Present Illness ED Provider: Dr. Cesar Gill HPI Narrative: 83-year-old female with a history of rheumatoid arthritis, chronic atrial fibrillation on Eliquis hypertension, diabetes, CVA, prosthetic heart valve secondary to aortic stenosis-TAVR 06/2023, anxiety, depression, obesity, hyperlipidemia, chronic diastolic congestive heart failure with preserved EF, DVT who presents emergency department for evaluation of dark tarry stools times 3 days and upper abdominal pain. The patient lacks insight as to why she was here in this information was obtained from the nursing note. Note also states the patient's Eliquis was stopped 2 days prior. Patient is a DNR, DNI and do not transfer to hospital. Related Data Home Medications ?Medication ?Instructions ?Recorded ?Confirmed acetaminophen 500 mg capsule 500 mg PO Q6H PRN Pain 09/15/22 09/29/23 acetaminophen 500 mg tablet 500 mg PO BEDTIME 05/05/23 09/29/23 apixaban 5 mg tablet (Eliquis) 5 mg PO BID 09/29/23 09/29/23 bisacodyl 10 mg rectal suppository 10 mg TX DAILY PRN Constipation 09/29/23 09/29/23 ferrous sulfate 325 mg (65 mg 325 mg PO MOWEFR 09/29/23 09/29/23 iron) tablet furosemide 20 mg tablet 60 mg PO DAILY 09/29/23 09/29/23 glucagon HCl 1 mg solution for 1 mg subcut Q20M PRN Hypoglycemia 09/29/23 09/29/23 injection (Glucagon (HCl) Emergency Kit) guaifenesin 100 mg/5 mL oral liquid 200 mg PO Q6H PRN Cough 09/29/23 09/29/23 ipratropium 0.5 mg-albuterol 3 mg 3 ml inhalation BID 09/29/23 09/29/23 (2.5 mg base)/3 mL nebulization soln ipratropium 0.5 mg-albuterol 3 mg 3 ml inhalation Q6H PRN Shortness 09/29/23 09/29/23 (2.5 mg base)/3 mL nebulization Of Breath Or Wheezing soln magnesium hydroxide 400 mg/5 mL 30 ml PO DAILY PRN Constipation 09/29/23 09/29/23 oral suspension (Milk of Magnesia) methotrexate sodium 2.5 mg tablet 20 mg PO PICKARD 09/29/23 09/29/23 oxycodone 5 mg tablet 2.5 mg PO Q8H PRN Pain 09/29/23 09/29/23 sertraline 25 mg tablet (Zoloft) 50 mg PO DAILY 09/29/23 09/29/23 simvastatin 20 mg tablet 20 mg PO BEDTIME 09/29/23 09/29/23 sodium phosphates 19 gram-7 118 ml TX DAILY PRN Constipation 09/29/23 09/29/23 gram/118 mL enema (Fleet Enema) Previous Rx's ?Medication ?Instructions ?Recorded blood sugar diagnostic #250 ea 07/29/21 blood-glucose meter (OneTouch #1 ea 07/29/21 Ultra2 Meter kit) Hospital bed #1 ea 09/16/21 metoprolol tartrate 25 mg tablet 12.5 mg (1/2 x 25 mg) PO BID 90 07/26/22 days #90 tabs [facility] mattress #1 ea 08/10/22 blood sugar diagnostic (OneTouch #100 ea 12/01/22 Ultra Test strips) blood-glucose meter #1 ea 12/01/22 lancets #100 ea 12/01/22 INR strips ACELIS #60 ea 03/11/23 prothrombin time test strips #48 ea 03/11/23 Allergies Allergy/AdvReac Type Severity Reaction Status Date / Time shellfish derived Allergy Unknown itchy Verified 09/29/23 11:51 procaine [From Novocain] AdvReac Unknown makes Verified 09/29/23 11:51 patient itchy,puffy Review of Systems 2 Review of Systems: Yes all other systems are reviewed and are negative [facility] Past Medical History [facility] Narrative: Social history: Patient is a resident of [facility] Medical History CHF (congestive heart failure) Influenza A Persistent atrial fibrillation Chronic hypoxemic respiratory failure Rash Constipation Impaired mobility and ADLs Pulmonary hypertension Chronic diastolic (congestive) heart failure Pancytopenia Congestive heart failure Pulmonary hypertension Nonrheumatic aortic valve stenosis CHF exacerbation Acute pyelonephritis Chronic anticoagulation Pneumonia (HFpEF) heart failure with preserved ejection fraction Sepsis Lumbar vertebral fracture CVA (cerebral vascular accident) TIA (transient ischemic attack) Uterine cancer Anxiety and depression Obesity (BMI 30-39.9) Rheumatoid arthritis Hypercholesterolemia Hypertension Atrial fibrillation Type 2 diabetes mellitus with hyperglycemia Surgical History Status post transcatheter aortic valve replacement History of transcatheter aortic valve replacement (TAVR) (~06/19/21) History of colonoscopy History of appendectomy History of right knee joint replacement History of left knee replacement S/P ANTONIO-BSO Family History Family History Father Diabetes CAD (coronary artery disease) Mother Diabetes Hypertension Perforated ulcer Sister Diabetes Social History Social History Household Members: Spouse Housing: House Housing Other:: lives with spouse Do you presently have visiting nurse or other home services: Yes Alcohol intake: never Comment: 1:1 sitter Patient Tobacco Use Status: Never used Tobacco Smoked in Last 30 Days: No e-Cigarette/Vaping Use: Never Used Second Hand Smoke Exposure: No Use of substances other than those prescribed or required for medical reasons: No Advance Directives: Yes Advance Directives on File: Yes Advance Directives Date on File: 09/03/21 Do you have a plan to hurt others: No Plan Nutrition Risks: No Nutritional Risk service: No Current occupational status: retired 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 [employer] Current occupational exposures/hazards: No Cognitive needs: Yes (cane, walker) Hearing needs: No Vision needs: Yes (glasses) Physical Exam 2 Vital Signs: Vital Signs: Last Vital Signs Temp 97.8 F 09/29/23 20:09 Pulse 75 09/29/23 20:09 Resp 19 09/29/23 20:09 BP 113/55 L 09/29/23 20:09 Pulse Ox 96 09/29/23 16:19 O2 Del Method Nasal Cannula 09/29/23 16:19 O2 Flow Rate 2 09/29/23 16:19 BMI result Body Mass Index 31.5 Vital signs revealed an elevated respiratory rate of 22 otherwise unremarkable Exam: General: Awake, alert in no distress, patient lacks insight as to why she is here in the emergency department. She does not appear to be in distress Head: Normocephalic, atraumatic EENT: PERRL, Lids normal, sclera normal, conjunctiva normal, nose normal , ears normal, throat without erythema or exudates Neck: Supple, no adenopathy Lung: breath sounds symmetric, no wheezing, rales or rhonchi Chest: symmetric movement, nontender Heart: regular rate and rhythm, normal S1, S2 no murmurs or rubs Abdomen: soft, moderate epigastric tenderness and mild diffuse tenderness, no rebound, no voluntary or involuntary guarding nondistended, normal bowel sounds Rectal: Sphincter tone is normal, patient's stool is black and also is dark red. Back: no vertebral tenderness, no CVAT Extremities: no deformities, moves all extremities symmetrically Neuro: Awake, alert, oriented to person, lacks insight as to why she is here,, normal speech, cranial nerves intact, moves all extremities symmetrically Psych: Pleasant, cooperative Medications Administered Discontinued Medications Generic Name Dose Route Start Last Admin Trade Name Everetteq PRN Reason Stop Dose Admin Sodium Chloride 100 mls @ 100 mls/hr 09/29/23 12:08 09/29/23 17:00 Ns IV 09/29/23 13:07 Infused ONCE ONE Infusion Sodium Chloride 100 mls @ 100 mls/hr 09/29/23 12:08 09/29/23 21:00 Ns IV 09/29/23 13:07 Infused ONCE ONE Infusion Iohexol 100 ml 09/29/23 13:58 09/29/23 13:58 Iohexol 350 Mg/Ml 100 Ml Infus..Btl IV 09/29/23 13:59 80 ml ONCE ONE Administration Pantoprazole Sodium 80 mg 09/29/23 12:05 09/29/23 12:26 Pantoprazole Sodium 40 Mg/10 Ml Vial IVPUSH 09/29/23 12:06 80 mg ONCE ONE Administration Medical Decision Making Medical Decision Making MDM Narrative: 83-year-old female with a history of rheumatoid arthritis, chronic atrial fibrillation on Eliquis hypertension, diabetes, CVA, 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 Vital signs were normal. Physical examination revealed moderate epigastric tenderness as well as diffuse abdominal tenderness. Rectal exam revealed dark black stool with dark red stool as well. Differential diagnosis: ?Includes but is not limited to upper GI bleed, lower GI bleed, ischemic bowel, diverticular bleed, anemia, electrolyte abnormalities Following evaluation was ordered: CBC, BMP, liver panel, lipase, PT/INR PTT, occult stool testing, CT GI bleed abdomen pelvis with and without IV contrast Patient was initially treated with the following: Protonix 80 mg IV, IV insert, cardiac monitoring, pulse oximetry monitoring Course: 12:14 My interpretation patient's laboratory evaluation as follows: Patient had a critical H&H of 5.0116.7 and also an elevated lactic acid of 2.8. These values are consistent with GI bleed possibly ischemic bowel as well. Patient last H&H on 06/26/2023 was 7.6 and 31.5. I ordered 2 units of packed red blood cells to be transfused each over 2 hours. BUN was elevated 51 with a normal creatinine 0.88-this is highly suggestive of an upper GI bleed. LFTs were normal. I will discuss admission with the covering hospitalist and he raised issues with the patient's MOLST- do not hospitalize status and the issues with the patient healthcare proxy not being determined. He requested that I get a case management consult to assist with these issues. 15:37 Following information was obtained from our casework specialist. The patient is not competent to make decisions and her healthcare proxy was her . The patient's is now not capable of making his own decision for himself and his own healthcare proxy has been invoked. The patient's care facility has been working on getting a new guardian for the patient but this has not been accomplished yet. According to our casework specialist who states that the next of kin can not be invoked as the healthcare proxy at this time but the next of kin can make decision for this hospitalization if the next of kin agrees. I did speak to the patient's daughter, Marisol Abreu, regarding making decision for this hospitalization. Marisol agreed to be the decision maker for this hospitalization. She did agree with blood transfusions and hospitalization. She states she will make decisions based on any plan presented to her while the patient is hospitalized. Marisol can be reached at . I asked registration to update the patient's record and to make Cecy the primary contact I did discuss the situation with Dr. Ozuna and the patient will be admitted for further treatment Admission/Observation Consideration of admission/observation: Escalation of care including admission/observation considered Consult Healthcare Provider Management of the patient was discussed with: Hospitalist Lab Data MDM Lab Attestation statement: I reviewed the patient's lab results. 09/29/23 11:45 09/29/23 11:45 Labs: Lab Results 09/29/23 09/29/23 09/29/23 Range/Units 11:45 11:53 11:56 WBC 7.8 (4.8-10.8) X10*3/uL RBC 1.96 L D (4.20-5.50) X10*6/uL Hgb 5.0 L* D (12.0-16.0) g/dl Hct 16.7 L* D (37.0-47.0) % MCV 85.2 (80.0-98.0) fL MCH 25.5 L (27.0-33.0) pg MCHC 29.9 L (31.0-35.0) g/dl RDW 19.7 H (11.0-16.0) % Plt Count 214 (160-400) X10*3/uL MPV 9.9 (9.4-12.3) fL Immature Gran % (Auto) 0.8 H (0.0-0.4) % Neut % (Auto) 72.0 (45-73) % Lymph % (Auto) 13.2 L (20-40) % [place] % (Auto) 10.9 (2-11) % Eos % (Auto) 2.7 (0-4) % Baso % (Auto) 0.4 (0-2) % Lymph # (Auto) 1.0 L (1.2-4.9) X10*3/uL [place] # (Auto) 0.9 (0.1-1.2) X10*3/uL Eos # (Auto) 0.2 (0.0-0.4) X10*3/uL Baso # (Auto) 0.0 (0.0-0.2) X10*3/uL Abs Immat Gran (auto) 0.06 H (0.00-0.03) X10*3/uL Absolute Neuts (auto) 5.6 (2.0-8.3) x10*3/uL Absolute Nucleated RBC 0.000 (0.0-0.012) X10*3/uL Nucleated RBC % (auto) 0.0 (0.0-0.2) /100WBC PT 21.2 H D (11.1-13.3) SEC INR 1.7 H D (0.9-1.1) APTT 34.6 Cancelled (26.0-36.8) SEC Sodium 141 (135-145) mmol/L Potassium 4.2 (3.3-5.1) mmol/L Chloride 105 (96-108) mmol/L Carbon Dioxide 29 (22-29) mmol/L Anion Gap 11 L (12-20) BUN 51 H (9-16) mg/dL Creatinine 0.88 (0.5-1.4) mg/dL Estim Creat Clear Calc 41.4 Estimated GFR > 60 Random Glucose 124 H (60-115) mg/dL Lactic Acid 2.8 H* (0.5-2.0) mmol/L Lactic Acid F/U @ 2Hr (0.5-2.0) mmol/L Calcium 8.1 L D (8.4-10.2) mg/dL Total Bilirubin 0.3 (0.0-1.0) mg/dL Direct Bilirubin 0.2 (0.0-0.5) mg/dL AST 13 (5-31) U/L ALT 6 (0-31) U/L Alkaline Phosphatase 75 (39-117) U/L Total Protein 6.8 (6.5-8.0) g/dL Albumin 2.7 L (3.5-5.0) g/dL Lipase 16 (8-78) U/L Stool Occult Blood POSITIVE (NEGATIVE) Blood Type O Positive Antibody Screen NEGATIVE Crossmatch See Detail Crossmatch ([facility]) See Detail 09/29/23 Range/Units 14:54 WBC (4.8-10.8) X10*3/uL RBC (4.20-5.50) X10*6/uL Hgb (12.0-16.0) g/dl Hct (37.0-47.0) % MCV (80.0-98.0) fL MCH (27.0-33.0) pg MCHC (31.0-35.0) g/dl RDW (11.0-16.0) % Plt Count (160-400) X10*3/uL MPV (9.4-12.3) fL Immature Gran % (Auto) (0.0-0.4) % Neut % (Auto) (45-73) % Lymph % (Auto) (20-40) % [place] % (Auto) (2-11) % Eos % (Auto) (0-4) % Baso % (Auto) (0-2) % Lymph # (Auto) (1.2-4.9) X10*3/uL [place] # (Auto) (0.1-1.2) X10*3/uL Eos # (Auto) (0.0-0.4) X10*3/uL Baso # (Auto) (0.0-0.2) X10*3/uL Abs Immat Gran (auto) (0.00-0.03) X10*3/uL Absolute Neuts (auto) (2.0-8.3) x10*3/uL Absolute Nucleated RBC (0.0-0.012) X10*3/uL Nucleated RBC % (auto) (0.0-0.2) /100WBC PT (11.1-13.3) SEC INR (0.9-1.1) APTT (26.0-36.8) SEC Sodium (135-145) mmol/L Potassium (3.3-5.1) mmol/L Chloride (96-108) mmol/L Carbon Dioxide (22-29) mmol/L Anion Gap (12-20) BUN (9-16) mg/dL Creatinine (0.5-1.4) mg/dL Estim Creat Clear Calc Estimated GFR Random Glucose (60-115) mg/dL Lactic Acid (0.5-2.0) mmol/L Lactic Acid F/U @ 2Hr 1.7 (0.5-2.0) mmol/L Calcium (8.4-10.2) mg/dL Total Bilirubin (0.0-1.0) mg/dL Direct Bilirubin (0.0-0.5) mg/dL AST (5-31) U/L ALT (0-31) U/L Alkaline Phosphatase (39-117) U/L Total Protein (6.5-8.0) g/dL Albumin (3.5-5.0) g/dL Lipase (8-78) U/L Stool Occult Blood (NEGATIVE) Blood Type Antibody Screen Crossmatch Crossmatch ([facility]) Independent Interpretation I performed an independent interpretation of an: EKG Interpretation: My independent interpretation patient's 12 EKG done at 11:55 hours is as follows: Atrial fibrillation with a rate of 65, prolonged QRS duration of 148 milliseconds, prolonged QTC of 514 milliseconds, right bundle-branch block, no ST segment elevation, inverted T-waves 3, AVF, V1 through V4, no ST segment elevation, no ST segment depression EKG dated 06/26/2023 there were no significant changes, the right bundle-branch block and T-wave abnormalities were present on the previous EKG. Radiology Impression Discussion of test interpretation with radiology: I have reviewed the radiologist's reading. Radiologist Impression: CT gi bleed abd pel wo/w IVcon IMPRESSION: 1. No visualized contrast extravasation to suggest active gastrointestinal bleeding, though the lateral wall of the descending colon is out of [id number]. 2. Moderate scattered colonic diverticulosis without evidence of acute diverticulitis. 3. Retroperitoneal and bilateral iliac chain lymphadenopathy increased in size from prior. 4. Mild splenomegaly, decreased from prior. 5. Heterogeneous liver attenuation, which can be seen with hepatocellular disease. 6. Cholelithiasis without evidence for acute cholecystitis. 7. Bilateral nonobstructing renal calculi. Dictated By: Dorothy iRley Independent Historian Clinical information obtained from an independent historian. History obtained from or confirmed by: Other (Daughter) External Record Review External record reviewed: Inpatient record Chronic Conditions Patient?s care impacted by: Diabetes and Other (Atrial fibrillation, congestive heart failure) Critical Care Time Critical Care Time Critical Care Time: Yes Total Critical Care Time: 80 Attestation: Critical Care: The patient was critically ill with a high probability of imminent or life threatening deterioration. I spent greater than 30 minutes of discontinuous time evaluating the patient,delivering critical care at the bedside, discussing and evaluating pertinent data with consultants. Critical care time does not include time spent performing separately billable procedures or teaching. Total time spent performing critical care was 80 minutes. Discharge Plan Discharge Clinical Impression: Acute GI bleeding, Anemia Patient Disposition: Admitted As Inpatient
--- NOTE | 2023-09-29 11:52 | PC.NURSE ---
Rectal exam with MD Jairo alonso +
[2023-09-29 11:56] LABS: MANUAL DIFF FLAG NO
--- NOTE | 2023-09-29 11:58 | PC.NURSE ---
[facility], patient has been bleeding rectally x 2 days, eliquis has been held x 2 days, facility just got a call from their lab services for a critical H&H of 4.8/16.1. Patient is alert but forgetful, has HCP proxy invoked, HCP is her whom is also a resident there. also has HCP invoke, so facility has been starting to get guardianship for patient.
[2023-09-29 12:05] LABS: Basophils Percent Auto 0.4 % (0-2); Eosinophils Absolute Auto 0.2 X10*3/uL (0.0-0.4); Eosinophils Percent Auto 2.7 % (0-4); Imm Gran Abs Auto 0.06 X10*3/uL (0.00-0.03); Imm Gran Pct Auto 0.8 % (0.0-0.4); Lymphocytes Percent Auto 13.2 % (20-40); Mean Corpuscular HGB Conc 29.9 g/dl (31.0-35.0); Mean Corpuscular Hemoglobin 25.5 pg (27.0-33.0); Mean Corpuscular Volume 85.2 fL (80.0-98.0); Mean Platelet Volume 9.9 fL (9.4-12.3); Monocytes Absolute Auto 0.9 X10*3/uL (0.1-1.2); Monocytes Percent Auto 10.9 % (2-11); Neutrophils Absolute Auto 5.6 x10*3/uL (2.0-8.3); Platelet Count 214 X10*3/uL (160-400); Red Blood Count 1.96 X10*6/uL (4.20-5.50); Red Cell Distribution Width 19.7 % (11.0-16.0)
[2023-09-29 12:06] LABS: OBS Int Ctl Valid YES; OBS1 POSITIVE (NEGATIVE)
[2023-09-29 12:11] LABS: Hematocrit 16.7 % (37.0-47.0)
[2023-09-29 12:12] LABS: White Blood Count 7.8 X10*3/uL (4.8-10.8)
[2023-09-29 12:12] LABS: Lactic Acid 2.8 mmol/L (0.5-2.0)
[2023-09-29 12:14] LABS: Alanine Aminotransferase 6 U/L (0-31); Albumin Level 2.7 g/dL (3.5-5.0); Alkaline Phosphatase 75 U/L (39-117); Anion Gap 11 (12-20); Aspartate Amino Transferase 13 U/L (5-31); Bilirubin Direct 0.2 mg/dL (0.0-0.5); Bilirubin Total 0.3 mg/dL (0.0-1.0); Blood Urea Nitrogen 51 mg/dL (9-16); Calcium 8.1 mg/dL (8.4-10.2); Carbon Dioxide 29 mmol/L (22-29); Chloride 105 mmol/L (96-108); Creatinine Clr Calc Pharmacy 41.4; Estimated Glomerular Filt Rate > 60; Glucose Random 124 mg/dL (60-115); Lipase 16 U/L (8-78); Potassium 4.2 mmol/L (3.3-5.1); Sodium 141 mmol/L (135-145); Total Protein 6.8 g/dL (6.5-8.0)
[2023-09-29] MEDS: Pantoprazole Sodium 40 MG/10 ML VIAL 80 MG IVPUSH (12:26)
[2023-09-29 12:27] LABS: INTERNATIONAL NORM RATIO 1.7 (0.9-1.1); Prothrombin Time 21.2 SEC (11.1-13.3)
[2023-09-29 12:30] LABS: Partial Thromboplastin Time 34.6 SEC (26.0-36.8)
[2023-09-29 13:55] LABS: Reflex Lactate? Lactic Acid Added
[2023-09-29] MEDS: iohexoL 350 MG/ML 100 ML INFUS..BTL IV (13:58)
[2023-09-29 15:17] LABS: ~Lactic Acid-LAB USE ONLY 1.7 mmol/L (0.5-2.0)
--- NOTE | 2023-09-29 16:12 | P.HPHOSP_ITS ---
History of Present Illness Date of Service: 09/29/23 Chief Complaint: anemia 83F PMH hfpef, chronic hypoxic respiratory failure on 2L home o2, pulm hypertension, chronic afib, history of cva, history of AVR, rhuematoid arthritis, dm, history of DVT, mood disorder, history of uterine cancer, presented with blood in stool. several episodes over last few days, dark, tarry, a/w epigastric pain. eliquis was stopped in care home 2 days ptp. in ED hgb 5. cT abd pending. Review of Systems 2 Review of Systems: Yes all other systems are reviewed and are negative [facility] Medical History CHF (congestive heart failure) Influenza A Persistent atrial fibrillation Chronic hypoxemic respiratory failure Rash Constipation Impaired mobility and ADLs Pulmonary hypertension Chronic diastolic (congestive) heart failure Pancytopenia Congestive heart failure Pulmonary hypertension Nonrheumatic aortic valve stenosis CHF exacerbation Acute pyelonephritis Chronic anticoagulation Pneumonia (HFpEF) heart failure with preserved ejection fraction Sepsis Lumbar vertebral fracture CVA (cerebral vascular accident) TIA (transient ischemic attack) Uterine cancer Anxiety and depression Obesity (BMI 30-39.9) Rheumatoid arthritis Hypercholesterolemia Hypertension Atrial fibrillation Type 2 diabetes mellitus with hyperglycemia Family History Father Diabetes CAD (coronary artery disease) Mother Diabetes Hypertension Perforated ulcer Sister Diabetes Surgical History Status post transcatheter aortic valve replacement History of transcatheter aortic valve replacement (TAVR) (~06/19/21) History of colonoscopy History of appendectomy History of right knee joint replacement History of left knee replacement S/P ANTONIO-BSO Social History Household Members: Spouse Housing: House Housing Other:: lives with spouse Do you presently have visiting nurse or other home services: Yes Alcohol intake: never Comment: 1:1 sitter Patient Tobacco Use Status: Never used Tobacco Smoked in Last 30 Days: No e-Cigarette/Vaping Use: Never Used Second Hand Smoke Exposure: No Use of substances other than those prescribed or required for medical reasons: No Advance Directives: Yes Advance Directives on File: Yes Advance Directives Date on File: 09/03/21 Do you have a plan to hurt others: No Plan service: No Current occupational status: retired 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[employer], [employer] Current occupational exposures/hazards: No Cognitive needs: Yes (cane, walker) Hearing needs: No Vision needs: Yes (glasses) Meds Allergies Allergy/AdvReac Type Severity Reaction Status Date / Time shellfish derived Allergy Unknown itchy Verified 09/29/23 11:51 procaine [From Novocain] AdvReac Unknown makes Verified 09/29/23 11:51 patient itchy,puffy Active Medications: Current Medications Acetaminophen (Acetaminophen 325 Mg Tablet) 650 mg PO Q6H PRN PRN Reason: Pain, Mild (Pain Scale 1-3), fever or headache Calcium Carbonate (Calcium Carbonate 750 Mg Tab.Chew) 750 mg PO Q4H PRN PRN Reason: Heartburn Magnesium Hydroxide (Milk Of Magnesia 30 Ml Oral.Susp) 30 ml PO DAILY PRN PRN Reason: Constipation Melatonin (Melatonin 3 Mg Tablet) 6 mg PO BEDTIME PRN PRN Reason: Insomnia Pantoprazole Sodium (Pantoprazole Sodium 40 Mg/10 Ml Vial) 40 mg IVPUSH BID@0630,1630 [facility] Sodium Chloride (0.9 % Sodium Chloride Flush 3 Ml Syringe) 3 ml IVFLUSH QSHIFT [facility] Home Medications ?Medication ?Instructions ?Recorded ?Confirmed ?Last Taken ?Type acetaminophen 500 mg capsule 500 mg PO Q6H PRN Pain 09/15/22 05/10/23 09/23/22 History acetaminophen 500 mg tablet 500 mg PO BEDTIME 05/05/23 05/10/23 Unknown History cholecalciferol (vitamin D3) 125 125 mcg PO PICKARD 05/05/23 05/10/23 Unknown History mcg (5,000 unit) tablet Physical Exam 2 Vital Signs and Narrative: Vital Signs: Last Vital Signs Temp 97.9 F 09/29/23 14:41 Pulse 75 09/29/23 14:41 Resp 20 09/29/23 14:41 BP 111/43 L 09/29/23 14:41 Pulse Ox 100 09/29/23 12:42 O2 Del Method Nasal Cannula 09/29/23 12:42 O2 Flow Rate 2 09/29/23 12:42 BMI result Body Mass Index 31.5 alert oriented to pesron and place, pale, no acute distress, frail appearing lungs clear, able to give simple history on topic, but poor insight and tangental. Results Labs 09/29/23 11:45 09/29/23 11:45 Labs: Laboratory Results - last 24 hr 09/29/23 09/29/23 09/29/23 11:45 11:53 11:56 MCV 85.2 MCH 25.5 L MCHC 29.9 L RDW 19.7 H Plt Count 214 MPV 9.9 Immature Gran % (Auto) 0.8 H Neut % (Auto) 72.0 Lymph % (Auto) 13.2 L [place] % (Auto) 10.9 Eos % (Auto) 2.7 Baso % (Auto) 0.4 Lymph # (Auto) 1.0 L [place] # (Auto) 0.9 Eos # (Auto) 0.2 Baso # (Auto) 0.0 Abs Immat Gran (auto) 0.06 H Absolute Neuts (auto) 5.6 Absolute Nucleated RBC 0.000 Nucleated RBC % (auto) 0.0 PT 21.2 H D INR 1.7 H D APTT 34.6 Cancelled Anion Gap 11 L Estim Creat Clear Calc 41.4 Estimated GFR > 60 Random Glucose 124 H Lactic Acid 2.8 H* Lactic Acid F/U @ 2Hr Calcium 8.1 L D Total Bilirubin 0.3 Direct Bilirubin 0.2 AST 13 ALT 6 Alkaline Phosphatase 75 Total Protein 6.8 Albumin 2.7 L Lipase 16 Stool Occult Blood POSITIVE Blood Type O Positive Antibody Screen NEGATIVE Crossmatch See Detail Crossmatch ([facility]) See Detail 09/29/23 14:54 MCV MCH MCHC RDW Plt Count MPV Immature Gran % (Auto) Neut % (Auto) Lymph % (Auto) [place] % (Auto) Eos % (Auto) Baso % (Auto) Lymph # (Auto) [place] # (Auto) Eos # (Auto) Baso # (Auto) Abs Immat Gran (auto) Absolute Neuts (auto) Absolute Nucleated RBC Nucleated RBC % (auto) PT INR APTT Anion Gap Estim Creat Clear Calc Estimated GFR Random Glucose Lactic Acid Lactic Acid F/U @ 2Hr 1.7 Calcium Total Bilirubin Direct Bilirubin AST ALT Alkaline Phosphatase Total Protein Albumin Lipase Stool Occult Blood Blood Type Antibody Screen Crossmatch Crossmatch ([facility]) Assessment and Plan (1) Persistent atrial fibrillation: Status: Acute Plan 83F PMH hfpef, chronic hypoxic respiratory failure on 2L home o2, pulm hypertension, chronic afib, history of cva, history of AVR, rhuematoid arthritis, dm, history of DVT, mood disorder, history of uterine cancer, presented with blood in stool Acute blood loss anemia Due to GI bleed inpatient on Eliquis Hold Eliquis, IV ppi, follow-up GI, monitor CBC, transfusing 2 units in ED Follow-up CT abdomen Chronic hypoxic respiratory failure secondary to pulmonary hypertension and chronic diastolic CHF Stable Chronic atrial fibrillation, history of CVA, history of DVT Holding Eliquis DVT prophylaxis-mechanical due to GI bleed DNR/DNI Patient with severe anemia requiring transfusions and close monitoring due to ongoing GI bleed therefore expected require at least 2 midnights inpatient Quality Stroke Does the patient have a stroke diagnosis?: No VTE Prior VTE?: Yes VTE Risk Level:: Medical - moderate - high VTE Device Contraindication: N/A - Device Ordered VTE Drug Contraindication: Treatment Not Tolerated
--- NOTE | 2023-09-29 16:16 | MHC.CM.ED ---
Patient came to the ER due to GI bleed. Received notification from Dr Gill and Dr Ozuna that patient is [facility]. Has an invoked HCP that is her . Per facility, 's HCP is also invoked. T/W verified this information with [employer] reimbursement liaison. Patient's only HCP agent is her , Cody. Facility is working with Customer Development Representative Jackelin Angelelle to obtain a guardianship. There is no proposed guardian at this time. There is no court date scheduled at this time. Per Paris Childers CM director plan of care can be determined by next of kin. T/W spoke with patient's step-daughter, Emily. Emily is requesting to be the plan of care be directed by patient's daughter, Marisol. Marisol can be reached via telephone at [phone]. Patient's son, Brandin, can be reached via telephone at [phone]. Dr Gill spoke with [facility]. [facility] is willing to take on this role. Dr Ozuna aware and will admit patient. Anticipate patient will return to [facility] when medically stable. Continue to monitor for d/c needs.
--- NOTE | 2023-09-29 20:52 | PHA.MEDREC ---
Addendum entered by Finn Bales RPh 09/29/23 21:03: MED REC CHECKED BY [facility] Original Note: Pharmacy Consult ? Medication Reconciliation Pharmacy has completed the medication reconciliation. Utilized claims and med list from [facility] to confirm meds.
--- NOTE | 2023-09-29 21:12 | PC.NURSE ---
Patient has completed infusion of 2 units PRBCs, tolerated well, redraw ordered in AM. Patient on clears until midnight, VS stable, purewick in placed, continues to intermittently complain about bed/can be tearful at times, responds to redirection well.
[2023-09-29] MEDS: Melatonin 3 MG TABLET 6 MG PO (22:29)
[2023-09-29] MEDS: Acetaminophen 325 MG TABLET 650 MG PO (22:29)
[2023-09-30] VITALS (12 sets, daily range): BP systolic 120–171; BP diastolic 67–89; PULSE 68–90; RESP 15–22; TEMP 36.5–37.1; O2SAT 95–99
--- NOTE | 2023-09-30 00:45 | PC.NURSE ---
pt called rn reporting she is soiled. purewick displaced and urinary incontinence noted. bed linen/gown changed gasper care provided. pt helped to reposition in bed. now resting comfortably. call parra within reach.
--- NOTE | 2023-09-30 01:19 | PC.NURSE ---
pt now resting comfortably in stretcher with eyes closed resp even and unlabored. call parra within reach.
--- NOTE | 2023-09-30 05:04 | PC.NURSE ---
pt incontinent of urine gasper care provided bed linen changed pt repositioned and warm blanket given. call parra within reach. no BM during this RN shift, pt denies pain.
[2023-09-30] MEDS: Pantoprazole Sodium 40 MG/10 ML VIAL IVPUSH ×2 (06:38→16:54)
[2023-09-30 06:45] LABS: Mean Corpuscular HGB Conc 31.4 g/dl (31.0-35.0); Mean Corpuscular Hemoglobin 26.8 pg (27.0-33.0); Mean Corpuscular Volume 85.6 fL (80.0-98.0); Mean Platelet Volume 10.1 fL (9.4-12.3); Platelet Count 191 X10*3/uL (160-400); Red Blood Count 2.57 X10*6/uL (4.20-5.50); Red Cell Distribution Width 17.7 % (11.0-16.0); White Blood Count 7.3 X10*3/uL (4.8-10.8)
[2023-09-30 06:59] LABS: Hemoglobin 6.9 g/dl (12.0-16.0)
[2023-09-30 07:06] LABS: Anion Gap 12 (12-20); Blood Urea Nitrogen 45 mg/dL (9-16); Calcium 8.6 mg/dL (8.4-10.2); Carbon Dioxide 26 mmol/L (22-29); Chloride 107 mmol/L (96-108); Creatinine Clr Calc Pharmacy 42.8; Estimated Glomerular Filt Rate > 60; Glucose Fasting 105 mg/dL (60-99); Potassium 4.1 mmol/L (3.3-5.1); Sodium 141 mmol/L (135-145)
--- NOTE | 2023-09-30 08:55 | MHC.CM.PN ---
cm attempted to meet w/pt however pt still in ed, cm to revisit.
[2023-09-30] MEDS: Acetaminophen 325 MG TABLET 650 MG PO ×2 (08:56→21:38)
--- NOTE | 2023-09-30 09:02 | HO.PM.IMPN ---
Subjective Subjective Date of Service: 09/30/23 Interval History: no further complaints Physical Exam Vital Signs: Vital Signs: Last Vital Signs Temp 97.8 F 09/30/23 08:22 Pulse 78 09/30/23 08:22 Resp 15 09/30/23 08:22 BP 129/69 09/30/23 08:22 Pulse Ox 99 09/30/23 08:22 O2 Del Method Nasal Cannula 09/30/23 08:22 O2 Flow Rate 2 09/30/23 08:22 BMI result Body Mass Index 31.5 General: AO X 2, no acute distress Resp: CTA bilateral, no accessory muscles used CVS: S1,S2,RRR GI: soft, non tender, non distended Neuro: motor grossly intact, alert Objective Data Active Medications Acetaminophen (Acetaminophen 325 Mg Tablet) 650 mg PO Q6H PRN PRN Reason: Pain, Mild (Pain Scale 1-3), fever or headache Last Admin: 09/30/23 08:56 Dose: 650 mg Documented By: WILLIE Calcium Carbonate (Calcium Carbonate 750 Mg Tab.Chew) 750 mg PO Q4H PRN PRN Reason: Heartburn Magnesium Hydroxide (Milk Of Magnesia 30 Ml Oral.Susp) 30 ml PO DAILY PRN PRN Reason: Constipation Melatonin (Melatonin 3 Mg Tablet) 6 mg PO BEDTIME PRN PRN Reason: Insomnia Last Admin: 09/29/23 22:29 Dose: 6 mg Documented By: ZACHARY Pantoprazole Sodium (Pantoprazole Sodium 40 Mg/10 Ml Vial) 40 mg IVPUSH BID@0630,1630 [facility] Last Admin: 09/30/23 06:38 Dose: 40 mg Documented By: RAISA Sodium Chloride (0.9 % Sodium Chloride Flush 3 Ml Syringe) 3 ml IVFLUSH QSHIFT [facility] Last Admin: 09/30/23 01:18 Dose: Not Given Documented By: RAISA Non-Admin Reason: Patient Asleep Labs 09/30/23 06:04 09/30/23 06:04 Labs: Laboratory Results - last 24 hr 09/29/23 09/29/23 09/29/23 11:45 11:53 11:56 MCV 85.2 MCH 25.5 L MCHC 29.9 L RDW 19.7 H Plt Count 214 MPV 9.9 Immature Gran % (Auto) 0.8 H Neut % (Auto) 72.0 Lymph % (Auto) 13.2 L Page % (Auto) 10.9 Eos % (Auto) 2.7 Baso % (Auto) 0.4 Lymph # (Auto) 1.0 L Page # (Auto) 0.9 Eos # (Auto) 0.2 Baso # (Auto) 0.0 Abs Immat Gran (auto) 0.06 H Absolute Neuts (auto) 5.6 Absolute Nucleated RBC 0.000 Nucleated RBC % (auto) 0.0 PT 21.2 H D INR 1.7 H D APTT 34.6 Cancelled Anion Gap 11 L Estim Creat Clear Calc 41.4 Estimated GFR > 60 Random Glucose 124 H Fasting Glucose Lactic Acid 2.8 H* Lactic Acid F/U @ 2Hr Calcium 8.1 L D Total Bilirubin 0.3 Direct Bilirubin 0.2 AST 13 ALT 6 Alkaline Phosphatase 75 Total Protein 6.8 Albumin 2.7 L Lipase 16 Stool Occult Blood POSITIVE Blood Type O Positive Antibody Screen NEGATIVE Crossmatch See Detail Crossmatch ([facility]) See Detail 09/29/23 09/30/23 14:54 06:04 MCV 85.6 MCH 26.8 L MCHC 31.4 RDW 17.7 H Plt Count 191 MPV 10.1 Immature Gran % (Auto) Neut % (Auto) Lymph % (Auto) Page % (Auto) Eos % (Auto) Baso % (Auto) Lymph # (Auto) Page # (Auto) Eos # (Auto) Baso # (Auto) Abs Immat Gran (auto) Absolute Neuts (auto) Absolute Nucleated RBC 0.000 Nucleated RBC % (auto) 0.0 PT INR APTT Anion Gap 12 Estim Creat Clear Calc 42.8 Estimated GFR > 60 Random Glucose Fasting Glucose 105 H Lactic Acid Lactic Acid F/U @ 2Hr 1.7 Calcium 8.6 D Total Bilirubin Direct Bilirubin AST ALT Alkaline Phosphatase Total Protein Albumin Lipase Stool Occult Blood Blood Type Antibody Screen Crossmatch Crossmatch ([facility]) Assessment and Plan (1) Acute GI bleeding: Status: Acute Plan 83F PMH hfpef, chronic hypoxic respiratory failure on 2L home o2, pulm hypertension, chronic afib, history of cva, history of AVR, rhuematoid arthritis, dm, history of DVT, mood disorder, history of uterine cancer, presented with blood in stool Acute blood loss anemia Due to GI bleed in patient on Eliquis Holding Eliquis, IV ppi, follow-up GI, monitor CBC - improved appropriately after 2 units prbc on 09/29/23, now 6.9 will transfuse additional 1 unit today Chronic hypoxic respiratory failure secondary to pulmonary hypertension and chronic diastolic CHF Stable Chronic atrial fibrillation, history of CVA, history of DVT Holding Eliquis DVT prophylaxis-mechanical due to GI bleed DNR/DNI reason for continued hospitalization:transfusing, iv ppi, close monitoring for bleed Quality Stroke Does the patient have a stroke diagnosis?: No VTE Prior VTE?: Yes VTE Risk Level:: Medical - moderate - high VTE Device Contraindication: N/A - Device Ordered VTE Drug Contraindication: Treatment Not Tolerated
--- NOTE | 2023-09-30 10:14 | P.CNGI_ITS ---
History of Present Illness Data of Consult Service Date: 09/30/23 Requesting physician: Giles Negron Primary Care Provider: Rui Paz MD HPI Reason for consult: Anemia This is an 83y.o F with PMH of preserved ejection fraction, anxiety and depression, AFib, CVA, HTN, HLD, rheumatoid arthritis, type 2 diabetes, remote hx of ovarian ca who was brought to the hospital for ? melena GI consulted for possible GI bleeding. History was obtained from the chart due to patient's mental status. Reportedly, patient has had 2 days of black stools with reported abdominal pain. Subsequently, her blood thinner was stopped at the [facility] ago. Of note, her MOLST form has not transfer to hospital, but she was sent to the hospital for further evaluation and was found to have initial hemoglobin of 5. Her stool occult test was positive. She has had total of 3 units transfused since her arrival to the hospital. On collateral information from the nursing staff, patient has not complained of any abdominal pain. No bowel movements witnessed in the hospital. She has been started on IV Protonix b.i.d.. At bedside, patient strongly requests to be fed. Medical record from [facility] was also reviewed. She was discharged on 09/15 from [facility] after admission for heart failure exacerbation as well as L leg DVT - Coumadin was switched to Eliquis. CT abdomen and pelvis reviewed. Patient has had longstanding pelvic adenopathy. Most recent biopsy from [facility] reviewed, benign. Review of Systems 2 Review of Systems: Limited ROS obtained due to mental status PMFSH Past Medical History Medical History CHF (congestive heart failure) Influenza A Persistent atrial fibrillation Chronic hypoxemic respiratory failure Rash Constipation Impaired mobility and ADLs Pulmonary hypertension Chronic diastolic (congestive) heart failure Pancytopenia Congestive heart failure Pulmonary hypertension Nonrheumatic aortic valve stenosis CHF exacerbation Acute pyelonephritis Chronic anticoagulation Pneumonia (HFpEF) heart failure with preserved ejection fraction Sepsis Lumbar vertebral fracture CVA (cerebral vascular accident) TIA (transient ischemic attack) Uterine cancer Anxiety and depression Obesity (BMI 30-39.9) Rheumatoid arthritis Hypercholesterolemia Hypertension Atrial fibrillation Type 2 diabetes mellitus with hyperglycemia Family History Family History Father Diabetes CAD (coronary artery disease) Mother Diabetes Hypertension Perforated ulcer Sister Diabetes Surgical History Surgical History Status post transcatheter aortic valve replacement History of transcatheter aortic valve replacement (TAVR) (~06/19/21) History of colonoscopy History of appendectomy History of right knee joint replacement History of left knee replacement S/P ANTONIO-BSO Social History Social History Household Members: Other Housing: Group Home Housing Other:: lives with spouse Do you presently have visiting nurse or other home services: Yes Alcohol intake: never Comment: 1:1 sitter Patient Tobacco Use Status: Never used Tobacco Smoked in Last 30 Days: No e-Cigarette/Vaping Use: Never Used Second Hand Smoke Exposure: No Use of substances other than those prescribed or required for medical reasons: No Have you been hit, kicked, punched, or otherwise hurt by someone within the past year? 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 [employer] Current occupational exposures/hazards: No Cognitive needs: Yes (cane, walker) Hearing needs: No Vision needs: Yes (glasses) Meds Allergies Allergy/AdvReac Type Severity Reaction Status Date / Time shellfish derived Allergy Unknown itchy Verified 09/29/23 11:51 procaine [From Novocain] AdvReac Unknown makes Verified 09/29/23 11:51 patient itchy,puffy Active Medications: Current Medications Acetaminophen (Acetaminophen 325 Mg Tablet) 650 mg PO Q6H PRN PRN Reason: Pain, Mild (Pain Scale 1-3), fever or headache Last Admin: 09/30/23 08:56 Dose: 650 mg Albuterol/Ipratropium (Albuterol/Iprat 2.5/0.5mg 3 Ml Ampul.Neb) 3 ml INHALE BID [facility] Atorvastatin Calcium (Atorvastatin Calcium 10 Mg Tablet) 10 mg PO DAILY [facility] Calcium Carbonate (Calcium Carbonate 750 Mg Tab.Chew) 750 mg PO Q4H PRN PRN Reason: Heartburn Furosemide (Furosemide 20 Mg Tablet) 60 mg PO DAILY [facility]; Protocol Magnesium Hydroxide (Milk Of Magnesia 30 Ml Oral.Susp) 30 ml PO DAILY PRN PRN Reason: Constipation Melatonin (Melatonin 3 Mg Tablet) 6 mg PO BEDTIME PRN PRN Reason: Insomnia Last Admin: 09/29/23 22:29 Dose: 6 mg Metoprolol Tartrate (Metoprolol Tartrate 12.5 Mg Halftab) 12.5 mg PO BID [facility]; Protocol Pantoprazole Sodium (Pantoprazole Sodium 40 Mg/10 Ml Vial) 40 mg IVPUSH BID@0630,1630 [facility] Last Admin: 09/30/23 06:38 Dose: 40 mg Sertraline HCl (Sertraline Hcl 50 Mg Tablet) 50 mg PO DAILY [facility] Sodium Chloride (0.9 % Sodium Chloride Flush 3 Ml Syringe) 3 ml IVFLUSH QSHIFT [facility] Last Admin: 09/30/23 09:47 Dose: Not Given Home Medications ?Medication ?Instructions ?Recorded ?Confirmed ?Last Taken ?Type acetaminophen 500 mg capsule 500 mg PO Q6H PRN Pain 09/15/22 09/29/23 09/23/22 History acetaminophen 500 mg tablet 500 mg PO BEDTIME 05/05/23 09/29/23 Unknown History apixaban 5 mg tablet (Eliquis) 5 mg PO BID 09/29/23 09/29/23 Unknown History bisacodyl 10 mg rectal suppository 10 mg NC DAILY PRN Constipation 09/29/23 09/29/23 Unknown History ferrous sulfate 325 mg (65 mg 325 mg PO MOWEFR 09/29/23 09/29/23 Unknown History iron) tablet furosemide 20 mg tablet 60 mg PO DAILY 09/29/23 09/29/23 Unknown History glucagon HCl 1 mg solution for 1 mg subcut Q20M PRN Hypoglycemia 09/29/23 09/29/23 Unknown History injection (Glucagon (HCl) Emergency Kit) guaifenesin 100 mg/5 mL oral liquid 200 mg PO Q6H PRN Cough 09/29/23 09/29/23 Unknown History ipratropium 0.5 mg-albuterol 3 mg 3 ml inhalation BID 09/29/23 09/29/23 Unknown History (2.5 mg base)/3 mL nebulization soln ipratropium 0.5 mg-albuterol 3 mg 3 ml inhalation Q6H PRN Shortness 09/29/23 09/29/23 Unknown History (2.5 mg base)/3 mL nebulization Of Breath Or Wheezing soln magnesium hydroxide 400 mg/5 mL 30 ml PO DAILY PRN Constipation 09/29/23 09/29/23 Unknown History oral suspension (Milk of Magnesia) methotrexate sodium 2.5 mg tablet 20 mg PO PICKARD 09/29/23 09/29/23 Unknown History oxycodone 5 mg tablet 2.5 mg PO Q8H PRN Pain 09/29/23 09/29/23 Unknown History sertraline 25 mg tablet (Zoloft) 50 mg PO DAILY 09/29/23 09/29/23 Unknown History simvastatin 20 mg tablet 20 mg PO BEDTIME 09/29/23 09/29/23 Unknown History sodium phosphates 19 gram-7 118 ml NC DAILY PRN Constipation 09/29/23 09/29/23 Unknown History gram/118 mL enema (Fleet Enema) Physical Exam 2 Vital Signs: Vital Signs: Last Vital Signs Temp 97.7 F 09/30/23 10:00 Pulse 75 09/30/23 10:00 Resp 16 09/30/23 10:00 BP 171/78 H 09/30/23 10:00 Pulse Ox 98 09/30/23 10:00 O2 Del Method Nasal Cannula 09/30/23 10:00 O2 Flow Rate 2 09/30/23 10:00 BMI result Body Mass Index 31.5 Frail, elderly female Pale appearing abdomen soft, nontender, nondistended Rectal exam brown stool L ankle swelling noted Results Labs 09/30/23 06:04 09/30/23 06:04 Labs: Short CBC 09/29/23 09/30/23 Range/Units 11:45 06:04 WBC 7.8 7.3 (4.8-10.8) X10*3/uL Hgb 5.0 L* D 6.9 L* D (12.0-16.0) g/dl Hct 16.7 L* D 22.0 L D (37.0-47.0) % Plt Count 214 191 (160-400) X10*3/uL BMP 09/29/23 09/30/23 11:45 06:04 Sodium 141 141 Potassium 4.2 4.1 Chloride 105 107 Carbon Dioxide 29 26 BUN 51 H 45 H Creatinine 0.88 0.85 Calcium 8.1 L D 8.6 D Liver Function 09/29/23 Range/Units 11:45 Total Bilirubin 0.3 (0.0-1.0) mg/dL Direct Bilirubin 0.2 (0.0-0.5) mg/dL AST 13 (5-31) U/L ALT 6 (0-31) U/L Alkaline Phosphatase 75 (39-117) U/L Albumin 2.7 L (3.5-5.0) g/dL Assessment and Plan (1) Anemia: Status: Acute (2) Congestive heart failure: Status: Acute (3) Persistent atrial fibrillation: Status: Acute (4) Leg edema, left: Status: Acute (5) DVT (deep venous thrombosis): Status: Acute Plan No evidence of overt GI hemorrhage at the time of evaluation. Differentials include esophagitis/gastritis/duodenitis, AVM, PUD. Currently appears to be well controlled with interruption of anticoagulation and initiation of IV PPI. Appears that patient was recently switched to Eliquis for DVT despite taking Coumadin, for possible Coumadin failure and therefore will likely need some form of anticoagulation resumed. Therefore may need EGD this admission. HCP/guardianship is uncertain currently since reportedly her /previous HCP is not able to make medical decisions. Her goals of care are also unclear as despite DNR/DNI/DNH status pt has had multiple admissions to [facility] and [facility] since the beginning of 2023. Plan: - Ok to feed pt - liquids today and advance tmrw if CBC stable - Cont IV PPI - If CBC declines, will need clarification on who her HCP/guardian is, so that consent for EGD may be obtained. Pt HDS currently and therefore no indication for emergent EGD. - Consider repeat duplex to ascertain resumption of anticoagulation vs IVC filter Thank you for allowing me to participate in her care. Please do not hesitate to reach out for any questions or concerns. Procedures Date of Service Date of Service: 09/30/23
[2023-09-30] MEDS: Atorvastatin Calcium 10 MG TABLET PO (11:50)
--- NOTE | 2023-09-30 15:18 | MHC.CM.PN ---
IMM 09/30/23 DELIVERED TO PT'S DTR BRUNA AT [phone], PER DISCUSSION COPY EMAILED TO [email or web address], BRUNA REPORTS PT IS LTC AT [facility] WHO REPORT PT IS A BED HOLD, PT TYPICALLY IN WC OR IN BED, PLAN IS FOR PT TO RETURN TO [facility] ONCE MEDICALLY CLEARED, CM WILL CONT TO FOLLOW DC NEEDS.
[2023-09-30] MEDS: 0.9 % Sodium Chloride Flush 3 ML SYRINGE IVFLUSH ×2 (16:54→21:39)
[2023-09-30] MEDS: Albuterol/Iprat 2.5/0.5MG 3 ML AMPUL.NEB INHALE (18:51)
[2023-09-30] MEDS: Metoprolol Tartrate 12.5 MG HALFTAB PO (21:38)
[2023-10-01] VITALS (7 sets, daily range): BP systolic 111–140; BP diastolic 56–68; PULSE 57–81; RESP 18–20; TEMP 36.3–36.9; O2SAT 94–99
[2023-10-01] MEDS: Pantoprazole Sodium 40 MG/10 ML VIAL IVPUSH ×2 (06:31→15:55)
[2023-10-01 07:40] LABS: Hematocrit 21.2 % (37.0-47.0); Hemoglobin 7.8 g/dl (12.0-16.0); Mean Corpuscular HGB Conc 36.8 g/dl (31.0-35.0); Mean Corpuscular Hemoglobin 35.3 pg (27.0-33.0); Mean Corpuscular Volume 95.9 fL (80.0-98.0); Mean Platelet Volume 10.2 fL (9.4-12.3); Platelet Count 170 X10*3/uL (160-400); Red Blood Count 2.21 X10*6/uL (4.20-5.50); Red Cell Distribution Width 19.1 % (11.0-16.0)
[2023-10-01 07:50] LABS: Anion Gap 13 (12-20); Blood Urea Nitrogen 32 mg/dL (9-16); Calcium 8.7 mg/dL (8.4-10.2); Carbon Dioxide 25 mmol/L (22-29); Chloride 109 mmol/L (96-108); Creatinine Clr Calc Pharmacy 46.8; Estimated Glomerular Filt Rate > 60; Glucose Fasting 97 mg/dL (60-99); Potassium 4.1 mmol/L (3.3-5.1); Sodium 143 mmol/L (135-145)
[2023-10-01] MEDS: Albuterol/Iprat 2.5/0.5MG 3 ML AMPUL.NEB INHALE ×2 (07:57→19:38)
[2023-10-01] MEDS: Atorvastatin Calcium 10 MG TABLET PO (08:50)
[2023-10-01] MEDS: Metoprolol Tartrate 12.5 MG HALFTAB PO ×2 (08:50→21:54)
[2023-10-01] MEDS: 0.9 % Sodium Chloride Flush 3 ML SYRINGE IVFLUSH ×3 (08:50→21:55)
[2023-10-01] MEDS: Furosemide 20 MG TABLET 60 MG PO (08:50)
[2023-10-01] MEDS: Sertraline HCL 50 MG TABLET PO (08:50)
--- NOTE | 2023-10-01 10:04 | P.PNIM_ITS ---
Subjective Subjective Date of Service: 10/01/23 Interval History: no further complaints Physical Exam 2 Vital Signs: Vital Signs: Last Vital Signs Temp 97.4 F 10/01/23 07:55 Pulse 66 10/01/23 08:00 Resp 18 10/01/23 08:00 BP 140/68 H 10/01/23 07:55 Pulse Ox 99 10/01/23 07:55 O2 Del Method Nasal Cannula 10/01/23 07:55 O2 Flow Rate 2 10/01/23 07:55 BMI result Body Mass Index 31.5 Frail, elderly female Pale appearing abdomen soft, nontender, nondistended Rectal exam brown stool L ankle swelling noted Objective Data Active Medications Acetaminophen (Acetaminophen 325 Mg Tablet) 650 mg PO Q6H PRN PRN Reason: Pain, Mild (Pain Scale 1-3), fever or headache Last Admin: 09/30/23 21:38 Dose: 650 mg Documented By: [place] Albuterol/Ipratropium (Albuterol/Iprat 2.5/0.5mg 3 Ml Ampul.Neb) 3 ml INHALE BID [facility] Last Admin: 10/01/23 07:57 Dose: 3 ml Documented By: MARVIN Atorvastatin Calcium (Atorvastatin Calcium 10 Mg Tablet) 10 mg PO DAILY [facility] Last Admin: 10/01/23 08:50 Dose: 10 mg Documented By: CRISTY Calcium Carbonate (Calcium Carbonate 750 Mg Tab.Chew) 750 mg PO Q4H PRN PRN Reason: Heartburn Furosemide (Furosemide 20 Mg Tablet) 60 mg PO DAILY [facility]; Protocol Last Admin: 10/01/23 08:50 Dose: 60 mg Documented By: CRISTY Magnesium Hydroxide (Milk Of Magnesia 30 Ml Oral.Susp) 30 ml PO DAILY PRN PRN Reason: Constipation Melatonin (Melatonin 3 Mg Tablet) 6 mg PO BEDTIME PRN PRN Reason: Insomnia Last Admin: 09/29/23 22:29 Dose: 6 mg Documented By: ZACHARY Metoprolol Tartrate (Metoprolol Tartrate 12.5 Mg Halftab) 12.5 mg PO BID [facility]; Protocol Last Admin: 10/01/23 08:50 Dose: 12.5 mg Documented By: CRISTY Pantoprazole Sodium (Pantoprazole Sodium 40 Mg/10 Ml Vial) 40 mg IVPUSH BID@0630,1630 [facility] Last Admin: 10/01/23 06:31 Dose: 40 mg Documented By: [place] Sertraline HCl (Sertraline Hcl 50 Mg Tablet) 50 mg PO DAILY [facility] Last Admin: 10/01/23 08:50 Dose: 50 mg Documented By: CRISTY Sodium Chloride (0.9 % Sodium Chloride Flush 3 Ml Syringe) 3 ml IVFLUSH QSHIFT [facility] Last Admin: 10/01/23 08:50 Dose: 3 ml Documented By: CRISTY Labs 10/01/23 06:09 10/01/23 06:00 Labs: Laboratory Results - last 24 hr 09/29/23 10/01/23 10/01/23 11:45 06:00 06:09 MCV 95.9 D MCH 35.3 H MCHC 36.8 H RDW 19.1 H Plt Count 170 MPV 10.2 Absolute Nucleated RBC 0.000 Nucleated RBC % (auto) 0.0 Anion Gap 13 Estim Creat Clear Calc 46.8 Estimated GFR > 60 Fasting Glucose 97 Calcium 8.7 Crossmatch (AHG) See Detail Assessment and Plan (1) Acute GI bleeding: Status: Acute Plan 83F PMH hfpef, chronic hypoxic respiratory failure on 2L home o2, pulm hypertension, chronic afib, history of cva, history of AVR, rhuematoid arthritis, dm, history of DVT, mood disorder, history of uterine cancer, presented with blood in stool Acute blood loss anemia Due to GI bleed in patient on Eliquis Holding Eliquis, IV ppi day 3, monitor CBC - improved appropriately after 3 units prbc Chronic hypoxic respiratory failure secondary to pulmonary hypertension and chronic diastolic CHF Stable recent left femoral and popliteal vein DVT (09/09/23) follow up repeat US to determine risk/ need for ivc filter Chronic atrial fibrillation, history of CVA Holding Eliquis DVT prophylaxis-mechanical due to GI bleed DNR/DNI reason for continued hospitalization:iv ppi, close monitoring for bleed Quality Stroke Does the patient have a stroke diagnosis?: No VTE Prior VTE?: Yes VTE Risk Level:: Medical - moderate - high VTE Device Contraindication: N/A - Device Ordered VTE Drug Contraindication: Treatment Not Tolerated
[2023-10-01] MEDS: Acetaminophen 325 MG TABLET 650 MG PO (13:54)
[2023-10-01] MEDS: Melatonin 3 MG TABLET 6 MG PO (21:53)
[2023-10-01] MEDS: traMADoL HCL 50 MG TABLET 25 MG PO (22:41)
[2023-10-02] VITALS (9 sets, daily range): BP systolic 100–131; BP diastolic 52–74; PULSE 50–94; RESP 18–20; TEMP 36.1–36.7; O2SAT 88–100
[2023-10-02] MEDS: Morphine Sulfate Immed Release 15 MG TABLET PO (01:31)
[2023-10-02] MEDS: Pantoprazole Sodium 40 MG/10 ML VIAL IVPUSH ×2 (06:19→16:20)
[2023-10-02 07:01] LABS: Hematocrit 23.2 % (37.0-47.0); Hemoglobin 7.1 g/dl (12.0-16.0); Mean Corpuscular HGB Conc 30.6 g/dl (31.0-35.0); Mean Corpuscular Hemoglobin 27.8 pg (27.0-33.0); Platelet Count 180 X10*3/uL (160-400); Red Blood Count 2.55 X10*6/uL (4.20-5.50); Red Cell Distribution Width 20.1 % (11.0-16.0); White Blood Count 6.6 X10*3/uL (4.8-10.8)
[2023-10-02 07:07] LABS: Anion Gap 13 (12-20); Blood Urea Nitrogen 31 mg/dL (9-16); Calcium 8.4 mg/dL (8.4-10.2); Carbon Dioxide 28 mmol/L (22-29); Chloride 107 mmol/L (96-108); Creatinine Clr Calc Pharmacy 43.4; Estimated Glomerular Filt Rate > 60; Glucose Fasting 98 mg/dL (60-99); Potassium 3.8 mmol/L (3.3-5.1); Sodium 144 mmol/L (135-145)
[2023-10-02] MEDS: Albuterol/Iprat 2.5/0.5MG 3 ML AMPUL.NEB INHALE ×2 (08:07→18:51)
[2023-10-02] MEDS: Metoprolol Tartrate 12.5 MG HALFTAB PO ×2 (08:10→20:55)
[2023-10-02] MEDS: Atorvastatin Calcium 10 MG TABLET PO (08:10)
[2023-10-02] MEDS: Sertraline HCL 50 MG TABLET PO (08:10)
[2023-10-02] MEDS: Furosemide 20 MG TABLET 60 MG PO (08:10)
[2023-10-02] MEDS: 0.9 % Sodium Chloride Flush 3 ML SYRINGE IVFLUSH ×3 (08:18→20:54)
--- NOTE | 2023-10-02 16:42 | HO.PM.IMPN ---
Subjective Subjective Date of Service: 10/02/23 Interval History: Patient reports she feels ?pretty good? but ?over stuffed? from the food Has no acute medical complaints Denies hematochezia or melena, reports last bowel movement a day or 2 ago No lightheadedness or dizziness Physical Exam Vital Signs: Vital Signs: Last Vital Signs Temp 98.0 F 10/02/23 15:10 Pulse 50 10/02/23 15:10 Resp 20 10/02/23 15:10 BP 127/61 10/02/23 15:10 Pulse Ox 95 10/02/23 15:10 O2 Del Method Room Air 10/02/23 15:10 O2 Flow Rate 2 10/02/23 07:18 BMI result Body Mass Index 31.5 General: AOx2, no acute distress Resp: CTA bilaterally CVS: Irregularly irregular rhythm GI: +BS, NT, no distention Skin: Warm, dry Neuro: Cranial nerves II-XII grossly intact bilaterally. Motor grossly intact bilaterally Extremities: No edema Psych: Pleasantly confused Objective Data Active Medications Acetaminophen (Acetaminophen 325 Mg Tablet) 650 mg PO Q6H PRN PRN Reason: Pain, Mild (Pain Scale 1-3), fever or headache Last Admin: 10/01/23 13:54 Dose: 650 mg Documented By: CRISTY Albuterol/Ipratropium (Albuterol/Iprat 2.5/0.5mg 3 Ml Ampul.Neb) 3 ml INHALE BID [facility] Last Admin: 10/02/23 08:07 Dose: 3 ml Documented By: MARVIN Atorvastatin Calcium (Atorvastatin Calcium 10 Mg Tablet) 10 mg PO DAILY [facility] Last Admin: 10/02/23 08:10 Dose: 10 mg Documented By: JESUS Calcium Carbonate (Calcium Carbonate 750 Mg Tab.Chew) 750 mg PO Q4H PRN PRN Reason: Heartburn Furosemide (Furosemide 20 Mg Tablet) 60 mg PO DAILY [facility]; Protocol Last Admin: 10/02/23 08:10 Dose: 60 mg Documented By: JESUS Magnesium Hydroxide (Milk Of Magnesia 30 Ml Oral.Susp) 30 ml PO DAILY PRN PRN Reason: Constipation Melatonin (Melatonin 3 Mg Tablet) 6 mg PO BEDTIME PRN PRN Reason: Insomnia Last Admin: 10/01/23 21:53 Dose: 6 mg Documented By: JUDSON Metoprolol Tartrate (Metoprolol Tartrate 12.5 Mg Halftab) 12.5 mg PO BID [facility]; Protocol Last Admin: 10/02/23 08:10 Dose: 12.5 mg Documented By: JESUS Pantoprazole Sodium (Pantoprazole Sodium 40 Mg/10 Ml Vial) 40 mg IVPUSH BID@0630,1630 [facility] Last Admin: 10/02/23 16:20 Dose: 40 mg Documented By: JESUS Sertraline HCl (Sertraline Hcl 50 Mg Tablet) 50 mg PO DAILY [facility] Last Admin: 10/02/23 08:10 Dose: 50 mg Documented By: JESUS Sodium Chloride (0.9 % Sodium Chloride Flush 3 Ml Syringe) 3 ml IVFLUSH QSHIFT [facility] Last Admin: 10/02/23 16:20 Dose: 3 ml Documented By: JESUS Labs 10/02/23 06:31 10/02/23 06:31 Labs: Laboratory Results - last 24 hr 10/02/23 06:31 MCV 91.0 MCH 27.8 MCHC 30.6 L RDW 20.1 H Plt Count 180 MPV 10.0 Absolute Nucleated RBC 0.000 Nucleated RBC % (auto) 0.0 Anion Gap 13 Estim Creat Clear Calc 43.4 Estimated GFR > 60 Fasting Glucose 98 Calcium 8.4 Assessment and Plan (1) Acute GI bleeding: Status: Acute Plan 83F PMH hfpef, chronic hypoxic respiratory failure on 2L home o2, pulm hypertension, chronic afib, history of cva, history of AVR, rhuematoid arthritis, dm, history of DVT, mood disorder, history of uterine cancer, presented with blood in stool Acute blood loss anemia Due to GI bleed in patient on Eliquis Initial hemoglobin of 5, stool occult test was positive Transfused a total of 3 units since arrival to the hospital H&H relatively stable but close to transfusion threshold: 7.1/23.2 Continued Pronotix IV b.i.d., day 4 Will make NPO past midnight for possible EGD in the morning Pt's HCP situation unclear as her HCP is her who recently has his HCP invoked; will jack need physician consent if H&H drops in the morning Hold Eliquis Monitor CBC closely, transfuse as necessary Chronic hypoxic respiratory failure secondary to pulmonary hypertension chronic diastolic CHF Stable, not in acute exacerbation Recent left femoral and popliteal vein DVT on 09/09/2023 Repeat U/S limited due to patient intolerance to level of popliteal vein, but did not demonstrate DVT in left lower extremity Likely not a candidate for IVC filter follow up repeat US to determine risk/ need for ivc filter Chronic atrial fibrillation, history of CVA Holding Eliquis DVT prophylaxis-mechanical due to GI bleed DNR/DNI Attending: Dr. Wilson Reason for continued hospitalization: need for iv PPI, close monitoring of CBC for acute GI bleed Quality Stroke Does the patient have a stroke diagnosis?: No VTE Prior VTE?: Yes VTE Risk Level:: Medical - moderate - high VTE Device Contraindication: N/A - Device Ordered VTE Drug Contraindication: Treatment Not Tolerated
[2023-10-03] VITALS (8 sets, daily range): BP systolic 104–125; BP diastolic 51–60; PULSE 60–74; RESP 18–20; TEMP 36.3–36.8; O2SAT 92–97
[2023-10-03] MEDS: Acetaminophen 325 MG TABLET 650 MG PO ×3 (03:29→20:30)
[2023-10-03] MEDS: Pantoprazole Sodium 40 MG/10 ML VIAL IVPUSH (06:28)
[2023-10-03 06:32] LABS: Hematocrit 23.3 % (37.0-47.0); Hemoglobin 7.1 g/dl (12.0-16.0); Mean Corpuscular HGB Conc 30.5 g/dl (31.0-35.0); Mean Corpuscular Volume 91.7 fL (80.0-98.0); Mean Platelet Volume 9.9 fL (9.4-12.3); Platelet Count 206 X10*3/uL (160-400); Red Blood Count 2.54 X10*6/uL (4.20-5.50); Red Cell Distribution Width 19.9 % (11.0-16.0); White Blood Count 7.8 X10*3/uL (4.8-10.8)
[2023-10-03] MEDS: Albuterol/Iprat 2.5/0.5MG 3 ML AMPUL.NEB INHALE ×2 (07:30→18:43)
[2023-10-03] MEDS: Atorvastatin Calcium 10 MG TABLET PO (09:56)
[2023-10-03] MEDS: 0.9 % Sodium Chloride Flush 3 ML SYRINGE IVFLUSH ×4 (09:56→23:54)
[2023-10-03] MEDS: Sertraline HCL 50 MG TABLET PO (09:56)
[2023-10-03] MEDS: Furosemide 20 MG TABLET 60 MG PO (09:57)
[2023-10-03] MEDS: Metoprolol Tartrate 12.5 MG HALFTAB PO ×2 (09:57→20:30)
--- NOTE | 2023-10-03 14:29 | MHC.CM.PN ---
EMR REVIEWED, PER HOSPITALIST PT NEEDS EGD, CM HAS SENT CONTACT INFO FOR PT'S DTR BRUNA [phone] SHE IS CURRENTLY THE CONTACT FOR PT, PLAN CONT'S TO BE FOR PT TO RETURN TO LTC AT [facility] ONCE MEDICALLY CLEARED, CM WILL CONT TO FOLLOW DC NEEDS.
--- NOTE | 2023-10-03 17:46 | P.PNIM_ITS ---
Subjective Subjective Date of Service: 10/03/23 Interval History: No acute events overnight Reports bowel movement yesterday, though did not look for hematochezia or melena Denies lightheadedness or dizziness No acute medical complaints Physical Exam 2 Vital Signs: Vital Signs: Last Vital Signs Temp 97.6 F 10/03/23 15:47 Pulse 74 10/03/23 15:47 Resp 18 10/03/23 15:47 BP 113/56 L 10/03/23 15:47 Pulse Ox 96 10/03/23 15:47 O2 Del Method Room Air 10/03/23 15:47 O2 Flow Rate 2 10/02/23 07:18 BMI result Body Mass Index 31.5 General: AOx2, no acute distress Resp: CTA bilaterally CVS: Irregularly irregular rhythm GI: +BS, NT, no distention Skin: Warm, dry Neuro: Cranial nerves II-XII grossly intact bilaterally. Motor grossly intact bilaterally Extremities: No edema Psych: Pleasantly confused Objective Data Active Medications Acetaminophen (Acetaminophen 325 Mg Tablet) 650 mg PO Q6H PRN PRN Reason: Pain, Mild (Pain Scale 1-3), fever or headache Last Admin: 10/03/23 11:52 Dose: 650 mg Documented By: GAYATRI Albuterol/Ipratropium (Albuterol/Iprat 2.5/0.5mg 3 Ml Ampul.Neb) 3 ml INHALE BID [facility] Last Admin: 10/03/23 07:30 Dose: 3 ml Documented By: MAGNO Atorvastatin Calcium (Atorvastatin Calcium 10 Mg Tablet) 10 mg PO DAILY [facility] Last Admin: 10/03/23 09:56 Dose: 10 mg Documented By: DIALLO Calcium Carbonate (Calcium Carbonate 750 Mg Tab.Chew) 750 mg PO Q4H PRN PRN Reason: Heartburn Furosemide (Furosemide 20 Mg Tablet) 60 mg PO DAILY [facility]; Protocol Last Admin: 10/03/23 09:57 Dose: 60 mg Documented By: DIALLO Magnesium Hydroxide (Milk Of Magnesia 30 Ml Oral.Susp) 30 ml PO DAILY PRN PRN Reason: Constipation Melatonin (Melatonin 3 Mg Tablet) 6 mg PO BEDTIME PRN PRN Reason: Insomnia Last Admin: 10/01/23 21:53 Dose: 6 mg Documented By: JUDSON Metoprolol Tartrate (Metoprolol Tartrate 12.5 Mg Halftab) 12.5 mg PO BID [facility]; Protocol Last Admin: 10/03/23 09:57 Dose: 12.5 mg Documented By: DIALOL Sertraline HCl (Sertraline Hcl 50 Mg Tablet) 50 mg PO DAILY [facility] Last Admin: 10/03/23 09:56 Dose: 50 mg Documented By: DIALLO Sodium Chloride (0.9 % Sodium Chloride Flush 3 Ml Syringe) 3 ml IVFLUSH QSHIFT [facility] Last Admin: 10/03/23 16:43 Dose: 3 ml Documented By: DIALLO Labs 10/03/23 05:55 10/02/23 06:31 Labs: Laboratory Results - last 24 hr 09/29/23 10/03/23 11:45 05:55 MCV 91.7 MCH 28.0 MCHC 30.5 L RDW 19.9 H Plt Count 206 MPV 9.9 Absolute Nucleated RBC 0.000 Nucleated RBC % (auto) 0.0 Crossmatch (AHG) See Detail Assessment and Plan (1) Acute GI bleeding: Status: Acute Plan 83F PMH hfpef, chronic hypoxic respiratory failure on 2L home o2, pulm hypertension, chronic afib, history of cva, history of AVR, rhuematoid arthritis, dm, history of DVT, mood disorder, history of uterine cancer, presented with blood in stool Acute blood loss anemia Due to GI bleed in patient on Eliquis Initial hemoglobin of 5, stool occult test was positive Transfused a total of 3 units since arrival to the hospital H&H relatively stable but close to transfusion threshold: 7.1/23.3 today, stable from yesterday 7.1/23.2 Continued Pronotix IV b.i.d., day 5 Will make NPO past midnight for possible EGD in the morning Pt's HCP situation unclear as her HCP is her who recently has his HCP invoked; will likely need physician consent if H&H drops in the morning Hold Eliquis Monitor CBC closely, transfuse as necessary Chronic hypoxic respiratory failure secondary to pulmonary hypertension chronic diastolic CHF Stable, not in acute exacerbation Recent left femoral and popliteal vein DVT on 09/09/2023 Repeat U/S limited due to patient intolerance to level of popliteal vein, but did not demonstrate DVT in left lower extremity Will repeat doppler to re-evaluate for DVT Follow up repeat US to determine risk/need for ivc filter Chronic atrial fibrillation, history of CVA Holding Eliquis DVT prophylaxis-mechanical due to GI bleed DNR/DNI Attending: Dr. Wilson Reason for continued hospitalization: need for iv PPI, close monitoring of CBC for acute GI bleed, possible EGD or IVC Quality Stroke Does the patient have a stroke diagnosis?: No VTE Prior VTE?: Yes VTE Risk Level:: Medical - moderate - high VTE Device Contraindication: N/A - Device Ordered VTE Drug Contraindication: Treatment Not Tolerated
--- NOTE | 2023-10-03 19:32 | PM.EVENT ---
Event Note Date of Service: 10/03/23 Event Note: Went to see patient to discuss repeat left lower extremity Doppler, and found patient sitting in chair looking pale, tachypneic, and with shallow breathing. Patient reported feeling quite unwell with left-sided chest pressure. Patient also complaining of shortness of breath. Concern for acute blood loss anemia versus PE. BP 106/53, heart rate 57, and satting at 95% on RA. We will get CBC, BMP, BNP, and CXR. Time Spent With Patient Time: Total time managing care of this patient today ____ minutes.
[2023-10-03 19:44] LABS: Hematocrit 24.5 % (37.0-47.0); Hemoglobin 7.4 g/dl (12.0-16.0); Mean Corpuscular HGB Conc 30.2 g/dl (31.0-35.0); Mean Corpuscular Hemoglobin 27.4 pg (27.0-33.0); Mean Corpuscular Volume 90.7 fL (80.0-98.0); Mean Platelet Volume 9.9 fL (9.4-12.3); Platelet Count 223 X10*3/uL (160-400); Red Cell Distribution Width 20.5 % (11.0-16.0); White Blood Count 7.4 X10*3/uL (4.8-10.8)
[2023-10-03 19:52] LABS: Anion Gap 13 (12-20); Blood Urea Nitrogen 32 mg/dL (9-16); Calcium 8.5 mg/dL (8.4-10.2); Carbon Dioxide 28 mmol/L (22-29); Chloride 103 mmol/L (96-108); Estimated Glomerular Filt Rate > 60; Glucose Random 163 mg/dL (60-115); Potassium 3.8 mmol/L (3.3-5.1); Sodium 140 mmol/L (135-145)
[2023-10-03 20:00] LABS: B Type Natriuretic Peptide 604 pg/mL (<100)
[2023-10-03 20:01] LABS: Troponin-I High Sensitivity 13.3 ng/L (<3.5-17.0)
[2023-10-03 20:43] LABS: VBG Base Excess 7.6 mmol/L; VBG HCO3 29 mmol/L (22-26); VBG pCO2 31 mmHg; VBG pH 7.58 (7.32-7.43); VBG pO2 61 mmHg
[2023-10-03 20:43] LABS: Venous Blood Gas Refer to POC result
[2023-10-03] MEDS: Morphine Sulfate 2 MG/ML CARTRIDGE 1 MG IVPUSH (23:53)
[2023-10-04] VITALS (9 sets, daily range): BP systolic 116–145; BP diastolic 56–68; PULSE 71–80; RESP 20; TEMP 36.5–36.8; O2SAT 95–98; BMI 31.2
[2023-10-04] MEDS: Albuterol/Iprat 2.5/0.5MG 3 ML AMPUL.NEB INHALE ×3 (02:26→19:39)
--- NOTE | 2023-10-04 05:42 | PC.NURSE ---
Patient is alert and oriented to self only, she follows all commands at this time. Patient was complaining of CP ,SOB and increased leg pain at chagne of shift MD saw her at the bedside and ordered and CXR,labs and Ultrasound. Patient complained of not being able to breath although she was sating in the mid 90s on RA. MD was notified and updraft treatment was ordered and administered by RT , patient was reposition in bed . Yakelin was given morphine for her increased leg pain with good effect. Pt is currently in bed vitals are stable, HOB elevated patient is on 2L n/c for comfort call parra present.
[2023-10-04 06:35] LABS: Hemoglobin 7.2 g/dl (12.0-16.0); Mean Corpuscular Hemoglobin 27.7 pg (27.0-33.0); Mean Corpuscular Volume 92.3 fL (80.0-98.0); Mean Platelet Volume 9.8 fL (9.4-12.3); Platelet Count 192 X10*3/uL (160-400); Red Cell Distribution Width 19.9 % (11.0-16.0); White Blood Count 6.9 X10*3/uL (4.8-10.8)
[2023-10-04] MEDS: Furosemide 20 MG TABLET 60 MG PO (10:29)
[2023-10-04] MEDS: Atorvastatin Calcium 10 MG TABLET PO (10:30)
[2023-10-04] MEDS: Metoprolol Tartrate 12.5 MG HALFTAB PO ×2 (10:30→21:40)
[2023-10-04] MEDS: Sertraline HCL 50 MG TABLET PO (10:30)
[2023-10-04] MEDS: 0.9 % Sodium Chloride Flush 3 ML SYRINGE IVFLUSH (10:30)
--- NOTE | 2023-10-04 11:44 | P.PNGI_ITS ---
Subjective Subjective Date of Service: 10/04/23 Interval History: Pt seen at bedside. Sitting up in chair, having lunch. Does not report abd pain, N,V. Critical Care Time (minutes): 0 Physical Exam 2 Vital Signs: Vital Signs: Last Vital Signs Temp 98.4 F 10/05/23 11:11 Pulse 80 10/05/23 11:11 Resp 18 10/05/23 11:11 BP 126/56 L 10/05/23 11:11 Pulse Ox 95 10/05/23 11:11 O2 Del Method Room Air 10/05/23 11:11 O2 Flow Rate 2 10/05/23 07:33 BMI result Body Mass Index 31.2 NAD ABd soft, nontender Objective Data Labs 10/05/23 06:30 10/03/23 19:28 Labs: Laboratory Results - last 24 hr 10/04/23 10/05/23 10/05/23 18:02 01:49 06:30 WBC 9.9 9.9 RBC 2.83 L 2.75 L Hgb 8.0 L 7.6 L Hct 26.0 L 25.1 L MCV 91.9 91.3 MCH 28.3 27.6 MCHC 30.8 L 30.3 L RDW 19.9 H 19.9 H Plt Count 222 198 MPV 10.0 9.9 Absolute Nucleated RBC 0.000 0.000 Nucleated RBC % (auto) 0.0 0.0 PT 17.7 H 19.2 H INR 1.5 H 1.6 H aPTT Heparin Protocol 34.8 L 49.7 L D 83.8 H D Procedures Date of Service Date of Service: 10/05/23 Progress Note: A&P Assessment and plan (1) DVT (deep venous thrombosis): Status: Acute (2) Anemia: Status: Acute (3) Acute GI bleeding: Status: Acute (4) Persistent atrial fibrillation: Status: Acute Plan At this time, GIB appears to have been self limited and controlled with medical therapy alone. Likely 2/2 esophagitis vs gastritis vs duodenitis vs PUD. Reviewed with pt's daughter Marisol over the phone and with shared decision making she elects to resume anticoagulation for now and hold off on EGD unless Yakelin demonstrates rebleeding. Plan: - Switch protonix to PO BID - Start IV heparin vs S/C lovenox - Watch CBC BID - If counts stable over 24h, ok to resume PO anticoagulation. CHoice of agent per hospitalist team and pt's fam preference. - If counts decline, Marisol would like to be contacted re EGD vs discontinuation of anticoagulation altogether - Pls also discontinue NPO orders as discussed on 09/29. Late entry, pt seen and evaluated on 10/03. Time Spent With Patient Time: Total time managing care of this patient today ____ minutes. Quality Stroke Does the patient have a stroke diagnosis?: No VTE Prior VTE?: Yes VTE Risk Level:: Medical - moderate - high VTE Device Contraindication: N/A - Device Ordered VTE Drug Contraindication: Treatment Not Tolerated
--- NOTE | 2023-10-04 16:45 | HO.PM.IMPN ---
Subjective Subjective Date of Service: 10/04/23 Interval History: Acute blood loss anemia Review of Systems no new bleed no nausea or vomiting Physical Exam Vital Signs: Vital Signs: Last Vital Signs Temp 98.3 F 10/04/23 16:00 Pulse 72 10/04/23 16:00 Resp 20 10/04/23 16:00 BP 131/58 L 10/04/23 16:00 Pulse Ox 95 10/04/23 16:00 O2 Del Method Nasal Cannula 10/04/23 16:00 O2 Flow Rate 2 10/04/23 16:00 BMI result Body Mass Index 31.5 General: AOx2, no acute distress Pulm: air entry seems fair ,minimal dimished at bases. CVS: Irregularly irregular rhythm GI: +BS, NT, no distention Skin: Warm, dry Neuro: Cranial nerves II-XII grossly intact bilaterally. Motor grossly intact bilaterally Extremities: No edema Psych: Pleasantly confused Objective Data Active Medications Acetaminophen (Acetaminophen 325 Mg Tablet) 650 mg PO Q6H PRN PRN Reason: Pain, Mild (Pain Scale 1-3), fever or headache Last Admin: 10/03/23 20:30 Dose: 650 mg Documented By: NORY Albuterol/Ipratropium (Albuterol/Iprat 2.5/0.5mg 3 Ml Ampul.Neb) 3 ml INHALE BID [facility] Last Admin: 10/04/23 08:02 Dose: 3 ml Documented By: MAZIN Atorvastatin Calcium (Atorvastatin Calcium 10 Mg Tablet) 10 mg PO DAILY [facility] Last Admin: 10/04/23 10:30 Dose: 10 mg Documented By: ANAT Calcium Carbonate (Calcium Carbonate 750 Mg Tab.Chew) 750 mg PO Q4H PRN PRN Reason: Heartburn Furosemide (Furosemide 20 Mg Tablet) 60 mg PO DAILY [facility]; Protocol Last Admin: 10/04/23 10:29 Dose: 60 mg Documented By: ANAT Magnesium Hydroxide (Milk Of Magnesia 30 Ml Oral.Susp) 30 ml PO DAILY PRN PRN Reason: Constipation Melatonin (Melatonin 3 Mg Tablet) 6 mg PO BEDTIME PRN PRN Reason: Insomnia Last Admin: 10/01/23 21:53 Dose: 6 mg Documented By: JUDSON Metoprolol Tartrate (Metoprolol Tartrate 12.5 Mg Halftab) 12.5 mg PO BID [facility]; Protocol Last Admin: 10/04/23 10:30 Dose: 12.5 mg Documented By: ANAT Morphine Sulfate (Morphine Sulfate 2 Mg/Ml Cartridge) 1 mg IVPUSH Q6H PRN; Protocol PRN Reason: Pain, Severe (Pain Scale 7-10) Last Admin: 10/03/23 23:53 Dose: 1 mg Documented By: NOYR Sertraline HCl (Sertraline Hcl 50 Mg Tablet) 50 mg PO DAILY [facility] Last Admin: 10/04/23 10:30 Dose: 50 mg Documented By: ANAT Sodium Chloride (0.9 % Sodium Chloride Flush 3 Ml Syringe) 3 ml IVFLUSH QSHIFT [facility] Last Admin: 10/04/23 10:30 Dose: 3 ml Documented By: ANAT Labs 10/04/23 06:04 10/03/23 19:28 Labs: Laboratory Results - last 24 hr 10/03/23 10/03/23 10/03/23 19:28 20:25 20:40 MCV 90.7 MCH 27.4 MCHC 30.2 L RDW 20.5 H Plt Count 223 MPV 9.9 Absolute Nucleated RBC 0.000 Nucleated RBC % (auto) 0.0 Hold Purple Top SEE NOTE VBG pH 7.58 H VBG pCO2 31 VBG pO2 61 VBG HCO3 29 H VBG O2 Saturation 92.0 VBG Base Excess 7.6 Anion Gap 13 Estim Creat Clear Calc 41.0 Estimated GFR > 60 Random Glucose 163 H Calcium 8.5 Troponin I High Sens 13.3 B-Natriuretic Peptide 604 H 10/04/23 06:04 MCV 92.3 MCH 27.7 MCHC 30.0 L RDW 19.9 H Plt Count 192 MPV 9.8 Absolute Nucleated RBC 0.000 Nucleated RBC % (auto) 0.0 Hold Purple Top VBG pH VBG pCO2 VBG pO2 VBG HCO3 VBG O2 Saturation VBG Base Excess Anion Gap Estim Creat Clear Calc Estimated GFR Random Glucose Calcium Troponin I High Sens B-Natriuretic Peptide Assessment and Plan (1) DVT (deep venous thrombosis): Status: Acute (2) Acute GI bleeding: Status: Acute Assessment and Plan: 83F PMH hfpef, chronic hypoxic respiratory failure on 2L home o2, pulm hypertension, chronic afib, history of cva, history of AVR, rhuematoid arthritis, dm, history of DVT, mood disorder, history of uterine cancer, presented with blood in stool Acute blood loss anemia Due to GI bleed in patient on Eliquis Initial hemoglobin of 5, stool occult test was positive Transfused a total of 3 units (during this amdit sofar) H&H relatively stable but close to transfusion threshold: 7.2 /24 range Continued Pronotix IV b.i.d. Hold Eliquis Pt's HCP situation unclear as her HCP is her who recently has his HCP invoked; will likely need physician consent if H&H drops in the morning Gi followup -continue above ,also rec -add iv heparin drip (Gi d/w patient family Daughter Marisol), ptt/pt per protocol,cbc bid. Chronic hypoxic respiratory failure secondary to pulmonary hypertension chronic diastolic CHF Stable, not in acute exacerbation Recent left femoral and popliteal vein DVT on 09/09/2023 U/S limited due to patient intolerance to level of popliteal vein, but did not demonstrate DVT in left lower extremity Will repeat dvt studies negative Chronic atrial fibrillation, history of CVA Holding Eliquis, on heparin drip as above . DVT prophylaxis-mechanical due to GI bleed. DNR/DNI Reason for continued hospitalization: need for iv PPI, close monitoring of CBC for acute GI bleed, possible EGD or IVC Quality Stroke Does the patient have a stroke diagnosis?: No VTE Prior VTE?: Yes VTE Risk Level:: Medical - moderate - high VTE Device Contraindication: N/A - Device Ordered VTE Drug Contraindication: Treatment Not Tolerated
[2023-10-04 18:19] LABS: Mean Corpuscular HGB Conc 30.8 g/dl (31.0-35.0); Mean Corpuscular Hemoglobin 28.3 pg (27.0-33.0); Mean Corpuscular Volume 91.9 fL (80.0-98.0); Platelet Count 222 X10*3/uL (160-400); Red Blood Count 2.83 X10*6/uL (4.20-5.50); Red Cell Distribution Width 19.9 % (11.0-16.0); White Blood Count 9.9 X10*3/uL (4.8-10.8)
[2023-10-04 18:25] LABS: INTERNATIONAL NORM RATIO 1.5 (0.9-1.1); Prothrombin Time 17.7 SEC (11.1-13.3)
[2023-10-04 18:27] LABS: PTT Heparin Drip 34.8 SEC (53-77.9)
[2023-10-04] MEDS: Melatonin 3 MG TABLET 6 MG PO (19:16)
[2023-10-04] MEDS: Morphine Sulfate 2 MG/ML CARTRIDGE 1 MG IVPUSH (19:21)
[2023-10-04] MEDS: Heparin Sodium,Porcine/1/2NS 25,000 UNIT/250 ML IV.SOLN 8.4 UNIT IVCONT (19:35)
[2023-10-05] VITALS (9 sets, daily range): BP systolic 112–146; BP diastolic 54–68; PULSE 67–81; RESP 18–20; TEMP 36.1–37.6; O2SAT 95–100
[2023-10-05 02:04] LABS: PTT Heparin Drip 49.7 SEC (53-77.9)
[2023-10-05] MEDS: Heparin Sodium,Porcine 5,000 UNIT/ML VIAL 2800 UNIT IVPUSH (02:47)
[2023-10-05 06:39] LABS: Hematocrit 25.1 % (37.0-47.0); Hemoglobin 7.6 g/dl (12.0-16.0); Mean Corpuscular HGB Conc 30.3 g/dl (31.0-35.0); Mean Corpuscular Hemoglobin 27.6 pg (27.0-33.0); Mean Corpuscular Volume 91.3 fL (80.0-98.0); Mean Platelet Volume 9.9 fL (9.4-12.3); Platelet Count 198 X10*3/uL (160-400); Red Blood Count 2.75 X10*6/uL (4.20-5.50); Red Cell Distribution Width 19.9 % (11.0-16.0); White Blood Count 9.9 X10*3/uL (4.8-10.8)
[2023-10-05 07:06] LABS: INTERNATIONAL NORM RATIO 1.6 (0.9-1.1); Prothrombin Time 19.2 SEC (11.1-13.3)
[2023-10-05 07:08] LABS: PTT Heparin Drip 83.8 SEC (53-77.9)
[2023-10-05] MEDS: Albuterol/Iprat 2.5/0.5MG 3 ML AMPUL.NEB INHALE ×2 (07:35→19:41)
[2023-10-05] MEDS: Metoprolol Tartrate 12.5 MG HALFTAB PO ×2 (08:29→20:50)
[2023-10-05] MEDS: 0.9 % Sodium Chloride Flush 3 ML SYRINGE IVFLUSH ×3 (08:29→20:52)
[2023-10-05] MEDS: Atorvastatin Calcium 10 MG TABLET PO (08:30)
[2023-10-05] MEDS: Sertraline HCL 50 MG TABLET PO (08:30)
[2023-10-05] MEDS: Furosemide 20 MG TABLET 60 MG PO (09:35)
[2023-10-05 12:53] LABS: INTERNATIONAL NORM RATIO 1.5 (0.9-1.1); Prothrombin Time 18.7 SEC (11.1-13.3)
[2023-10-05 12:56] LABS: PTT Heparin Drip 34.2 SEC (53-77.9)
[2023-10-05] MEDS: Enoxaparin Sodium 80 MG/0.8 ML SYRINGE 70 MG SUBCUT (13:15)
--- NOTE | 2023-10-05 15:17 | HO.PM.IMPN ---
Subjective Subjective Date of Service: 10/05/23 Interval History: Acute blood loss anemia Review of Systems no gross bleeding overnight seems similar . Physical Exam Vital Signs: Vital Signs: Last Vital Signs Temp 98.4 F 10/05/23 11:11 Pulse 80 10/05/23 11:11 Resp 18 10/05/23 11:11 BP 126/56 L 10/05/23 11:11 Pulse Ox 95 10/05/23 11:11 O2 Del Method Room Air 10/05/23 11:11 O2 Flow Rate 2 10/05/23 07:33 BMI result Body Mass Index 31.2 General: AOx2, no acute distress Pulm: air entry seems fair ,minimal dimished at bases. CVS: Irregularly irregular rhythm GI: +BS, NT, no distention Skin: Warm, dry Neuro: Cranial nerves II-XII grossly intact bilaterally. Motor grossly intact bilaterally Extremities: No edema Psych: Pleasantly confused Objective Data Active Medications Acetaminophen (Acetaminophen 325 Mg Tablet) 650 mg PO Q6H PRN PRN Reason: Pain, Mild (Pain Scale 1-3), fever or headache Last Admin: 10/03/23 20:30 Dose: 650 mg Documented By: NORY Albuterol/Ipratropium (Albuterol/Iprat 2.5/0.5mg 3 Ml Ampul.Neb) 3 ml INHALE BID [facility] Last Admin: 10/05/23 07:35 Dose: 3 ml Documented By: MAGNO Atorvastatin Calcium (Atorvastatin Calcium 10 Mg Tablet) 10 mg PO DAILY [facility] Last Admin: 10/05/23 08:30 Dose: 10 mg Documented By: ANAT Calcium Carbonate (Calcium Carbonate 750 Mg Tab.Chew) 750 mg PO Q4H PRN PRN Reason: Heartburn Enoxaparin Sodium (Enoxaparin Sodium 80 Mg/0.8 Ml Syringe) 70 mg SUBCUT Q12H [facility] Furosemide (Furosemide 20 Mg Tablet) 60 mg PO DAILY [facility]; Protocol Last Admin: 10/05/23 09:35 Dose: 60 mg Documented By: ANAT Magnesium Hydroxide (Milk Of Magnesia 30 Ml Oral.Susp) 30 ml PO DAILY PRN PRN Reason: Constipation Melatonin (Melatonin 3 Mg Tablet) 6 mg PO BEDTIME PRN PRN Reason: Insomnia Last Admin: 10/04/23 19:16 Dose: 6 mg Documented By: ANAT Metoprolol Tartrate (Metoprolol Tartrate 12.5 Mg Halftab) 12.5 mg PO BID [facility]; Protocol Last Admin: 10/05/23 08:29 Dose: 12.5 mg Documented By: ANAT Morphine Sulfate (Morphine Sulfate 2 Mg/Ml Cartridge) 1 mg IVPUSH Q6H PRN; Protocol PRN Reason: Pain, Severe (Pain Scale 7-10) Last Admin: 10/04/23 19:21 Dose: 1 mg Documented By: ANAT Sertraline HCl (Sertraline Hcl 50 Mg Tablet) 50 mg PO DAILY [facility] Last Admin: 10/05/23 08:30 Dose: 50 mg Documented By: ANAT Sodium Chloride (0.9 % Sodium Chloride Flush 3 Ml Syringe) 3 ml IVFLUSH QSHIFT [facility] Last Admin: 10/05/23 08:29 Dose: 3 ml Documented By: ANAT Labs 10/05/23 06:30 10/03/23 19:28 Labs: Laboratory Results - last 24 hr 10/04/23 10/05/23 10/05/23 18:02 01:49 06:30 MCV 91.9 91.3 MCH 28.3 27.6 MCHC 30.8 L 30.3 L RDW 19.9 H 19.9 H Plt Count 222 198 MPV 10.0 9.9 Absolute Nucleated RBC 0.000 0.000 Nucleated RBC % (auto) 0.0 0.0 PT 17.7 H 19.2 H INR 1.5 H 1.6 H aPTT Heparin Protocol 34.8 L 49.7 L D 83.8 H D 10/05/23 12:22 MCV MCH MCHC RDW Plt Count MPV Absolute Nucleated RBC Nucleated RBC % (auto) PT 18.7 H INR 1.5 H aPTT Heparin Protocol 34.2 L D Assessment and Plan (1) DVT (deep venous thrombosis): Status: Acute (2) Acute GI bleeding: Status: Acute Assessment and Plan: 83F PMH hfpef, chronic hypoxic respiratory failure on 2L home o2, pulm hypertension, chronic afib, history of cva, history of AVR, rhuematoid arthritis, dm, history of DVT, mood disorder, history of uterine cancer, presented with blood in stool Acute blood loss anemia Due to GI bleed in patient on Eliquis Initial hemoglobin of 5, stool occult test was positive Transfused a total of 3 units (during this amdit sofar) H&H relatively stable but close to transfusion threshold: 7.6 /25 range Continued Pronotix IV b.i.d. Hold Eliquis Pt's HCP situation unclear as her HCP is her who recently has his HCP invoked; will likely need physician consent if H&H drops in the morning Gi followup -continue above ,h/h is improving to 7.6/25.1,heparin switched to lovenox. Chronic hypoxic respiratory failure secondary to pulmonary hypertension chronic diastolic CHF Stable, not in acute exacerbation Recent left femoral and popliteal vein DVT on 09/09/2023 U/S limited due to patient intolerance to level of popliteal vein, but did not demonstrate DVT in left lower extremity repeat dvt studies negative Chronic atrial fibrillation, history of CVA Holding Eliquis, on lovenox. DVT prophylaxis-mechanical due to GI bleed. DNR/DNI Reason for continued hospitalization: need for iv PPI, close monitoring of CBC for acute GI bleed, possible EGD if bleeds. Quality Stroke Does the patient have a stroke diagnosis?: No VTE Prior VTE?: Yes VTE Risk Level:: Medical - moderate - high VTE Device Contraindication: N/A - Device Ordered VTE Drug Contraindication: Treatment Not Tolerated
[2023-10-05] MEDS: Melatonin 3 MG TABLET 6 MG PO (20:50)
[2023-10-05 21:32] LABS: Hematocrit 22.2 % (37.0-47.0); Mean Corpuscular HGB Conc 31.1 g/dl (31.0-35.0); Mean Corpuscular Hemoglobin 27.7 pg (27.0-33.0); Mean Corpuscular Volume 89.2 fL (80.0-98.0); Mean Platelet Volume 9.9 fL (9.4-12.3); Platelet Count 197 X10*3/uL (160-400); Red Blood Count 2.49 X10*6/uL (4.20-5.50); Red Cell Distribution Width 19.6 % (11.0-16.0); White Blood Count 7.9 X10*3/uL (4.8-10.8)
[2023-10-05 21:36] LABS: Hemoglobin 6.9 g/dl (12.0-16.0)
--- NOTE | 2023-10-05 21:44 | PM.EVENT ---
Event Note Date of Service: 10/05/23 Event Note: Hemoglobin 6.9. Ordered prbc and will hold lovenox Time Spent With Patient Time: Total time managing care of this patient today ____ minutes.
[2023-10-06] VITALS (14 sets, daily range): BP systolic 106–158; BP diastolic 54–70; PULSE 59–69; RESP 16–20; TEMP 36.1–36.4; O2SAT 92–100
[2023-10-06] MEDS: Albuterol/Iprat 2.5/0.5MG 3 ML AMPUL.NEB INHALE ×2 (07:32→20:41)
[2023-10-06] MEDS: Metoprolol Tartrate 12.5 MG HALFTAB PO ×2 (08:33→21:19)
[2023-10-06] MEDS: Atorvastatin Calcium 10 MG TABLET PO (08:33)
[2023-10-06] MEDS: Furosemide 20 MG TABLET 60 MG PO (08:33)
[2023-10-06] MEDS: Sertraline HCL 50 MG TABLET PO (08:33)
[2023-10-06] MEDS: 0.9 % Sodium Chloride Flush 3 ML SYRINGE IVFLUSH ×2 (08:34→17:03)
[2023-10-06 08:52] LABS: Hematocrit 25.9 % (37.0-47.0); Hemoglobin 8.2 g/dl (12.0-16.0)
--- NOTE | 2023-10-06 15:51 | P.PNGI_ITS ---
Subjective Subjective Date of Service: 10/06/23 Interval History: Pt seen at bedside. Endorses hunger. Does not report abd pain, N,V. Critical Care Time (minutes): 0 Physical Exam 2 Vital Signs: Vital Signs: Last Vital Signs Temp 97.6 F 10/06/23 15:15 Pulse 66 10/06/23 15:15 Resp 18 10/06/23 15:15 BP 146/65 H 10/06/23 15:15 Pulse Ox 92 10/06/23 15:15 O2 Del Method Nasal Cannula 10/06/23 15:15 O2 Flow Rate 1 10/06/23 15:15 BMI result Body Mass Index 31.2 NAD Pale appearing Abd soft, nontender Objective Data Labs 10/06/23 08:05 10/03/23 19:28 Labs: Laboratory Results - last 24 hr 10/05/23 10/05/23 10/06/23 21:16 22:03 08:05 WBC 7.9 RBC 2.49 L Hgb 6.9 L* 8.2 L Hct 22.2 L 25.9 L MCV 89.2 MCH 27.7 MCHC 31.1 RDW 19.6 H Plt Count 197 MPV 9.9 Absolute Nucleated RBC 0.000 Nucleated RBC % (auto) 0.0 Blood Type O Positive Antibody Screen NEGATIVE Crossmatch (AHG) See Detail Procedures Date of Service Date of Service: 10/06/23 Progress Note: A&P Assessment and plan (1) DVT (deep venous thrombosis): Status: Acute (2) Anemia: Status: Acute (3) Acute GI bleeding: Status: Acute (4) Persistent atrial fibrillation: Status: Acute Plan Given ongoing concerns for GIB, will book her for EGD for tmrw tentatively after discussion with her daughter. Anticoagulation has already been stopped by primary team. Cont PPI BID Tranfuse as needed for Hb <7 Liquids ok for today, NPO past midnight Time Spent With Patient Time: Total time managing care of this patient today ____ minutes. Quality Stroke Does the patient have a stroke diagnosis?: No VTE Prior VTE?: Yes VTE Risk Level:: Medical - moderate - high VTE Device Contraindication: N/A - Device Ordered VTE Drug Contraindication: Treatment Not Tolerated
--- NOTE | 2023-10-06 17:01 | HO.PM.IMPN ---
Subjective Subjective Date of Service: 10/06/23 Interval History: anemia Review of Systems no abd pain or new gross bleeding Physical Exam Vital Signs: Vital Signs: Last Vital Signs Temp 97.6 F 10/06/23 15:15 Pulse 66 10/06/23 15:15 Resp 18 10/06/23 15:15 BP 146/65 H 10/06/23 15:15 Pulse Ox 92 10/06/23 15:15 O2 Del Method Nasal Cannula 10/06/23 15:15 O2 Flow Rate 1 10/06/23 15:15 BMI result Body Mass Index 31.2 General: AOx2, no acute distress Pulm: air entry seems fair ,minimal dimished at bases. CVS: Irregularly irregular rhythm GI: +BS, NT, no distention Skin: Warm, dry Neuro: Cranial nerves II-XII grossly intact bilaterally. Motor grossly intact bilaterally Extremities: No edema Psych: Pleasantly confused Objective Data Active Medications Acetaminophen (Acetaminophen 325 Mg Tablet) 650 mg PO Q6H PRN PRN Reason: Pain, Mild (Pain Scale 1-3), fever or headache Last Admin: 10/03/23 20:30 Dose: 650 mg Documented By: NORY Albuterol/Ipratropium (Albuterol/Iprat 2.5/0.5mg 3 Ml Ampul.Neb) 3 ml INHALE BID [facility] Last Admin: 10/06/23 07:32 Dose: 3 ml Documented By: FRANSICO Atorvastatin Calcium (Atorvastatin Calcium 10 Mg Tablet) 10 mg PO DAILY [facility] Last Admin: 10/06/23 08:33 Dose: 10 mg Documented By: JENNY Calcium Carbonate (Calcium Carbonate 750 Mg Tab.Chew) 750 mg PO Q4H PRN PRN Reason: Heartburn Furosemide (Furosemide 20 Mg Tablet) 60 mg PO DAILY [facility]; Protocol Last Admin: 10/06/23 08:33 Dose: 60 mg Documented By: JENNY Magnesium Hydroxide (Milk Of Magnesia 30 Ml Oral.Susp) 30 ml PO DAILY PRN PRN Reason: Constipation Melatonin (Melatonin 3 Mg Tablet) 6 mg PO BEDTIME PRN PRN Reason: Insomnia Last Admin: 10/05/23 20:50 Dose: 6 mg Documented By: JAY Metoprolol Tartrate (Metoprolol Tartrate 12.5 Mg Halftab) 12.5 mg PO BID [facility]; Protocol Last Admin: 10/06/23 08:33 Dose: 12.5 mg Documented By: JENNY Morphine Sulfate (Morphine Sulfate 2 Mg/Ml Cartridge) 1 mg IVPUSH Q6H PRN; Protocol PRN Reason: Pain, Severe (Pain Scale 7-10) Last Admin: 10/04/23 19:21 Dose: 1 mg Documented By: ANAT Sertraline HCl (Sertraline Hcl 50 Mg Tablet) 50 mg PO DAILY [facility] Last Admin: 10/06/23 08:33 Dose: 50 mg Documented By: JENNY Sodium Chloride (0.9 % Sodium Chloride Flush 3 Ml Syringe) 3 ml IVFLUSH QSHIFT [facility] Last Admin: 10/06/23 08:34 Dose: 3 ml Documented By: JENNY Labs 10/06/23 08:05 10/03/23 19:28 Labs: Laboratory Results - last 24 hr 10/05/23 10/05/23 21:16 22:03 MCV 89.2 MCH 27.7 MCHC 31.1 RDW 19.6 H Plt Count 197 MPV 9.9 Absolute Nucleated RBC 0.000 Nucleated RBC % (auto) 0.0 Blood Type O Positive Antibody Screen NEGATIVE Crossmatch (AHG) See Detail Assessment and Plan (1) DVT (deep venous thrombosis): Status: Acute (2) Acute GI bleeding: Status: Acute Assessment and Plan: 83F PMH hfpef, chronic hypoxic respiratory failure on 2L home o2, pulm hypertension, chronic afib, history of cva, history of AVR, rhuematoid arthritis, dm, history of DVT, mood disorder, history of uterine cancer, presented with blood in stool Acute blood loss anemia Due to GI bleed in patient on Eliquis Initial hemoglobin of 5, stool occult test was positive Transfused a total of 3 units (during this amdit sofar) H&H relatively stable but close to transfusion threshold: 7.6 /25 range Continued Pronotix IV b.i.d.,Hold Eliquis,h/h trending down on lovenox , give 1 prbc (10/05/23) h/h is 8 today Gi follwoup Chronic hypoxic respiratory failure secondary to pulmonary hypertension chronic diastolic CHF Stable, not in acute exacerbation Recent left femoral and popliteal vein DVT on 09/09/2023 U/S limited due to patient intolerance to level of popliteal vein, but did not demonstrate DVT in left lower extremity repeat dvt studies negative Chronic atrial fibrillation, history of CVA Holding Eliquis, on lovenox. DVT prophylaxis-mechanical due to GI bleed. DNR/DNI Reason for continued hospitalization: need for iv PPI, close monitoring of CBC for acute GI bleed, possible EGD if bleeds. Quality Stroke Does the patient have a stroke diagnosis?: No VTE Prior VTE?: Yes VTE Risk Level:: Medical - moderate - high VTE Device Contraindication: N/A - Device Ordered VTE Drug Contraindication: Treatment Not Tolerated
[2023-10-06] MEDS: Melatonin 3 MG TABLET 6 MG PO (21:20)
[2023-10-06] MEDS: Acetaminophen 325 MG TABLET 650 MG PO (21:20)
[2023-10-07] VITALS (13 sets, daily range): BP systolic 99–161; BP diastolic 43–67; PULSE 56–82; RESP 12–20; TEMP 36.1–36.6; O2SAT 90–100
[2023-10-07] MEDS: 0.9 % Sodium Chloride Flush 3 ML SYRINGE IVFLUSH ×2 (02:34→18:01)
[2023-10-07] MEDS: Morphine Sulfate 2 MG/ML CARTRIDGE 1 MG IVPUSH (03:55)
[2023-10-07] MEDS: Albuterol/Iprat 2.5/0.5MG 3 ML AMPUL.NEB INHALE ×2 (07:21→19:24)
[2023-10-07] MEDS: Metoprolol Tartrate 12.5 MG HALFTAB PO ×2 (08:31→20:16)
[2023-10-07] MEDS: Sertraline HCL 50 MG TABLET PO (08:31)
[2023-10-07] MEDS: Atorvastatin Calcium 10 MG TABLET PO (08:31)
[2023-10-07] MEDS: Lactated Ringers 1,000 ML 80 ML IVCONT (08:31)
[2023-10-07 08:37] LABS: Hematocrit 26.4 % (37.0-47.0); Hemoglobin 8.3 g/dl (12.0-16.0)
--- NOTE | 2023-10-07 12:03 | P.CONAN_ITS ---
HPI - Anesthesia Eval Consult details Narrative: 83 yo female patient on anticoagulants for afib and recent DVT. ? GI bleed. For EGD PMFSH Active Problems Active Problems: All Active Problems DVT (deep venous thrombosis) (Acute) Anemia (Acute) Acute GI bleeding (Acute) S/p 4 units PRBC since admission Hct today 10/07/23 26.4 Influenza A (Acute) Shortness of breath (Acute) Subtherapeutic international normalized ratio (INR) (Acute) Congestive heart failure (Acute) BMP 604 on 10/03/23. Patient has been on lasix. Breathing comfortably today 10/07/23. O2 sats 98% (2L NC) Persistent atrial fibrillation (Acute) Spleen hematoma (Acute) Right ureteral calculus (Acute) Hospital discharge follow-up (Acute) Rash (Acute) Vasculitis (Acute) Anxiety (Acute) Nonrheumatic aortic valve stenosis (Acute) Leg edema, left (Acute) Adult general medical exam (Acute) Low vitamin D level (Acute) Chronic anticoagulation (Acute) Dysuria (Acute) Atrial fibrillation (Acute) Type 2 diabetes mellitus with hyperglycemia (Acute) Anemia (Acute) Urinary incontinence (Acute) Anxiety and depression (Acute) Obesity (BMI 30-39.9) (Acute) Rheumatoid arthritis (Acute) Hypercholesterolemia (Acute) Hypertension (Acute) Past Medical History Medical History CHF (congestive heart failure) Influenza A Persistent atrial fibrillation Chronic hypoxemic respiratory failure Rash Constipation Impaired mobility and ADLs Pulmonary hypertension Chronic diastolic (congestive) heart failure Pancytopenia Congestive heart failure Pulmonary hypertension Nonrheumatic aortic valve stenosis CHF exacerbation Acute pyelonephritis Chronic anticoagulation Pneumonia (HFpEF) heart failure with preserved ejection fraction Sepsis Lumbar vertebral fracture CVA (cerebral vascular accident) TIA (transient ischemic attack) Uterine cancer Anxiety and depression Obesity (BMI 30-39.9) Rheumatoid arthritis Hypercholesterolemia Hypertension Atrial fibrillation Type 2 diabetes mellitus with hyperglycemia Family History Family History Father Diabetes CAD (coronary artery disease) Mother Diabetes Hypertension Perforated ulcer Sister Diabetes Family history of problems with anesthesia: No Surgical History Surgical History Status post transcatheter aortic valve replacement History of transcatheter aortic valve replacement (TAVR) (~06/19/21) History of colonoscopy History of appendectomy History of right knee joint replacement History of left knee replacement S/P ANTONIO-BSO History of Problems with Anesthesia: No Social History Social History Household Members: Other Housing: Prison Housing Other:: lives with spouse Do you presently have visiting nurse or other home services: Yes Alcohol intake: never Comment: 1:1 sitter Patient Tobacco Use Status: Never used Tobacco Smoked in Last 30 Days: No e-Cigarette/Vaping Use: Never Used Second Hand Smoke Exposure: No Use of substances other than those prescribed or required for medical reasons: No Currently Displaying Signs/Symptoms of Drug Intoxication Withdrawal: No Have you been hit, kicked, punched, or otherwise hurt by someone within the past year? 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[employer], 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 [employer] Current occupational exposures/hazards: No Cognitive needs: Yes (cane, walker) Hearing needs: No Vision needs: Yes (glasses) Meds Allergies Allergy/AdvReac Type Severity Reaction Status Date / Time shellfish derived Allergy Unknown itchy Verified 09/29/23 11:51 procaine [From Novocain] AdvReac Unknown makes Verified 09/29/23 11:51 patient itchy,puffy Active Medications: Current Medications Acetaminophen (Acetaminophen 325 Mg Tablet) 650 mg PO Q6H PRN PRN Reason: Pain, Mild (Pain Scale 1-3), fever or headache Last Admin: 10/06/23 21:20 Dose: 650 mg Albuterol/Ipratropium (Albuterol/Iprat 2.5/0.5mg 3 Ml Ampul.Neb) 3 ml INHALE BID KIKI Last Admin: 10/07/23 07:21 Dose: 3 ml Atorvastatin Calcium (Atorvastatin Calcium 10 Mg Tablet) 10 mg PO DAILY [facility] Last Admin: 10/07/23 08:31 Dose: 10 mg Calcium Carbonate (Calcium Carbonate 750 Mg Tab.Chew) 750 mg PO Q4H PRN PRN Reason: Heartburn Lactated Ringer's (Lr) 1,000 mls @ 80 mls/hr IVCONT .[id number] [facility] Last Admin: 10/07/23 08:31 Dose: 80 mls/hr Magnesium Hydroxide (Milk Of Magnesia 30 Ml Oral.Susp) 30 ml PO DAILY PRN PRN Reason: Constipation Melatonin (Melatonin 3 Mg Tablet) 6 mg PO BEDTIME PRN PRN Reason: Insomnia Last Admin: 10/06/23 21:20 Dose: 6 mg Metoprolol Tartrate (Metoprolol Tartrate 12.5 Mg Halftab) 12.5 mg PO BID [facility]; Protocol Last Admin: 10/07/23 08:31 Dose: 12.5 mg Morphine Sulfate (Morphine Sulfate 2 Mg/Ml Cartridge) 1 mg IVPUSH Q6H PRN; Protocol PRN Reason: Pain, Severe (Pain Scale 7-10) Last Admin: 10/07/23 03:55 Dose: 1 mg Sertraline HCl (Sertraline Hcl 50 Mg Tablet) 50 mg PO DAILY [facility] Last Admin: 10/07/23 08:31 Dose: 50 mg Sodium Chloride (0.9 % Sodium Chloride Flush 3 Ml Syringe) 3 ml IVFLUSH QSHIFT [facility] Last Admin: 10/07/23 08:31 Dose: Not Given Home Medications ?Medication ?Instructions ?Recorded ?Confirmed ?Last Taken ?Type acetaminophen 500 mg capsule 500 mg PO Q6H PRN Pain 09/15/22 09/29/23 09/23/22 History acetaminophen 500 mg tablet 500 mg PO BEDTIME 05/05/23 09/29/23 Unknown History apixaban 5 mg tablet (Eliquis) 5 mg PO BID 09/29/23 09/29/23 Unknown History bisacodyl 10 mg rectal suppository [address] DAILY PRN Constipation 09/29/23 09/29/23 Unknown History ferrous sulfate 325 mg (65 mg 325 mg PO MOWEFR 09/29/23 09/29/23 Unknown History iron) tablet furosemide 20 mg tablet 60 mg PO DAILY 09/29/23 09/29/23 Unknown History glucagon HCl 1 mg solution for 1 mg subcut Q20M PRN Hypoglycemia 09/29/23 09/29/23 Unknown History injection (Glucagon (HCl) Emergency Kit) guaifenesin 100 mg/5 mL oral liquid 200 mg PO Q6H PRN Cough 09/29/23 09/29/23 Unknown History ipratropium 0.5 mg-albuterol 3 mg 3 ml inhalation BID 09/29/23 09/29/23 Unknown History (2.5 mg base)/3 mL nebulization soln ipratropium 0.5 mg-albuterol 3 mg 3 ml inhalation Q6H PRN Shortness 09/29/23 09/29/23 Unknown History (2.5 mg base)/3 mL nebulization Of Breath Or Wheezing soln magnesium hydroxide 400 mg/5 mL 30 ml PO DAILY PRN Constipation 09/29/23 09/29/23 Unknown History oral suspension (Milk of Magnesia) methotrexate sodium 2.5 mg tablet 20 mg PO PICKARD 09/29/23 09/29/23 Unknown History oxycodone 5 mg tablet 2.5 mg PO Q8H PRN Pain 09/29/23 09/29/23 Unknown History sertraline 25 mg tablet (Zoloft) 50 mg PO DAILY 09/29/23 09/29/23 Unknown History simvastatin 20 mg tablet 20 mg PO BEDTIME 09/29/23 09/29/23 Unknown History sodium phosphates 19 gram-[address] DAILY PRN Constipation 09/29/23 09/29/23 Unknown History gram/118 mL enema (Fleet Enema) Exam Height,Weight and Vital Signs: Height 4 ft 11 in Weight 70 kg Last Vital Signs Temp 97.9 F 10/07/23 13:10 Pulse 60 10/07/23 13:10 Resp 18 10/07/23 13:10 BP 132/54 10/07/23 13:10 Pulse Ox 99 10/07/23 13:10 O2 Del Method Nasal Cannula 10/07/23 13:10 O2 Flow Rate 2 10/07/23 13:10 Pertinent Lab Results Pertinent Lab Results: Laboratory Tests 09/29/23 09/29/23 09/29/23 11:45 11:53 11:56 WBC 7.8 RBC 1.96 L D Hgb 5.0 L* D Hct 16.7 L* D MCV 85.2 MCH 25.5 L MCHC 29.9 L RDW 19.7 H Plt Count 214 MPV 9.9 Immature Gran % (Auto) 0.8 H Neut % (Auto) 72.0 Lymph % (Auto) 13.2 L [place] % (Auto) 10.9 Eos % (Auto) 2.7 Baso % (Auto) 0.4 Lymph # (Auto) 1.0 L [place] # (Auto) 0.9 Eos # (Auto) 0.2 Baso # (Auto) 0.0 Abs Immat Gran (auto) 0.06 H Absolute Neuts (auto) 5.6 Absolute Nucleated RBC 0.000 Nucleated RBC % (auto) 0.0 Hold Purple Top PT 21.2 H D INR 1.7 H D APTT 34.6 Cancelled aPTT Heparin Protocol VBG pH VBG pCO2 VBG pO2 VBG HCO3 VBG O2 Saturation VBG Base Excess Sodium 141 Potassium 4.2 Chloride 105 Carbon Dioxide 29 Anion Gap 11 L BUN 51 H Creatinine 0.88 Estim Creat Clear Calc 41.4 Estimated GFR > 60 Random Glucose 124 H Fasting Glucose Lactic Acid 2.8 H* Lactic Acid F/U @ 2Hr Calcium 8.1 L D Total Bilirubin 0.3 Direct Bilirubin 0.2 AST 13 ALT 6 Alkaline Phosphatase 75 Troponin I High Sens B-Natriuretic Peptide Total Protein 6.8 Albumin 2.7 L Lipase 16 Stool Occult Blood POSITIVE Blood Type O Positive Antibody Screen NEGATIVE Crossmatch See Detail Crossmatch ([facility]) See Detail 09/29/23 09/30/23 10/01/23 14:54 06:04 06:00 WBC 7.3 RBC 2.57 L D Hgb 6.9 L* D Hct 22.0 L D MCV 85.6 MCH 26.8 L MCHC 31.4 RDW 17.7 H Plt Count 191 MPV 10.1 Immature Gran % (Auto) Neut % (Auto) Lymph % (Auto) [place] % (Auto) Eos % (Auto) Baso % (Auto) Lymph # (Auto) [place] # (Auto) Eos # (Auto) Baso # (Auto) Abs Immat Gran (auto) Absolute Neuts (auto) Absolute Nucleated RBC 0.000 Nucleated RBC % (auto) 0.0 Hold Purple Top PT INR APTT aPTT Heparin Protocol VBG pH VBG pCO2 VBG pO2 VBG HCO3 VBG O2 Saturation VBG Base Excess Sodium 141 143 Potassium 4.1 4.1 Chloride 107 109 H Carbon Dioxide 26 25 Anion Gap 12 13 BUN 45 H 32 H Creatinine 0.85 0.78 Estim Creat Clear Calc 42.8 46.8 Estimated GFR > 60 > 60 Random Glucose Fasting Glucose 105 H 97 Lactic Acid Lactic Acid F/U @ 2Hr 1.7 Calcium 8.6 D 8.7 Total Bilirubin Direct Bilirubin AST ALT Alkaline Phosphatase Troponin I High Sens B-Natriuretic Peptide Total Protein Albumin Lipase Stool Occult Blood Blood Type Antibody Screen Crossmatch Crossmatch ([facility]) 10/01/23 10/02/23 10/03/23 06:09 06:31 05:55 WBC 6.0 6.6 7.8 RBC 2.21 L 2.55 L 2.54 L Hgb 7.8 L 7.1 L 7.1 L Hct 21.2 L 23.2 L 23.3 L MCV 95.9 D 91.0 91.7 MCH 35.3 H 27.8 28.0 MCHC 36.8 H 30.6 L 30.5 L RDW 19.1 H 20.1 H 19.9 H Plt Count 170 180 206 MPV 10.2 10.0 9.9 Immature Gran % (Auto) Neut % (Auto) Lymph % (Auto) [place] % (Auto) Eos % (Auto) Baso % (Auto) Lymph # (Auto) [place] # (Auto) Eos # (Auto) Baso # (Auto) Abs Immat Gran (auto) Absolute Neuts (auto) Absolute Nucleated RBC 0.000 0.000 0.000 Nucleated RBC % (auto) 0.0 0.0 0.0 Hold Purple Top PT INR APTT aPTT Heparin Protocol VBG pH VBG pCO2 VBG pO2 VBG HCO3 VBG O2 Saturation VBG Base Excess Sodium 144 Potassium 3.8 Chloride 107 Carbon Dioxide 28 Anion Gap 13 BUN 31 H Creatinine 0.84 Estim Creat Clear Calc 43.4 Estimated GFR > 60 Random Glucose Fasting Glucose 98 Lactic Acid Lactic Acid F/U @ 2Hr Calcium 8.4 Total Bilirubin Direct Bilirubin AST ALT Alkaline Phosphatase Troponin I High Sens B-Natriuretic Peptide Total Protein Albumin Lipase Stool Occult Blood Blood Type Antibody Screen Crossmatch Crossmatch ([facility]) 10/03/23 10/03/23 10/03/23 19:28 20:25 20:40 WBC 7.4 RBC 2.70 L Hgb 7.4 L Hct 24.5 L MCV 90.7 MCH 27.4 MCHC 30.2 L RDW 20.5 H Plt Count 223 MPV 9.9 Immature Gran % (Auto) Neut % (Auto) Lymph % (Auto) [place] % (Auto) Eos % (Auto) Baso % (Auto) Lymph # (Auto) [place] # (Auto) Eos # (Auto) Baso # (Auto) Abs Immat Gran (auto) Absolute Neuts (auto) Absolute Nucleated RBC 0.000 Nucleated RBC % (auto) 0.0 Hold Purple Top SEE NOTE PT INR APTT aPTT Heparin Protocol VBG pH 7.58 H VBG pCO2 31 VBG pO2 61 VBG HCO3 29 H VBG O2 Saturation 92.0 VBG Base Excess 7.6 Sodium 140 Potassium 3.8 Chloride 103 Carbon Dioxide 28 Anion Gap 13 BUN 32 H Creatinine 0.89 Estim Creat Clear Calc 41.0 Estimated GFR > 60 Random Glucose 163 H Fasting Glucose Lactic Acid Lactic Acid F/U @ 2Hr Calcium 8.5 Total Bilirubin Direct Bilirubin AST ALT Alkaline Phosphatase Troponin I High Sens 13.3 B-Natriuretic Peptide 604 H Total Protein Albumin Lipase Stool Occult Blood Blood Type Antibody Screen Crossmatch Crossmatch ([facility]) 10/04/23 10/04/23 10/05/23 06:04 18:02 01:49 WBC 6.9 9.9 RBC 2.60 L 2.83 L Hgb 7.2 L 8.0 L Hct 24.0 L 26.0 L MCV 92.3 91.9 MCH 27.7 28.3 MCHC 30.0 L 30.8 L RDW 19.9 H 19.9 H Plt Count 192 222 MPV 9.8 10.0 Immature Gran % (Auto) Neut % (Auto) Lymph % (Auto) [place] % (Auto) Eos % (Auto) Baso % (Auto) Lymph # (Auto) [place] # (Auto) Eos # (Auto) Baso # (Auto) Abs Immat Gran (auto) Absolute Neuts (auto) Absolute Nucleated RBC 0.000 0.000 Nucleated RBC % (auto) 0.0 0.0 Hold Purple Top PT 17.7 H INR 1.5 H APTT aPTT Heparin Protocol 34.8 L 49.7 L D VBG pH VBG pCO2 VBG pO2 VBG HCO3 VBG O2 Saturation VBG Base Excess Sodium Potassium Chloride Carbon Dioxide Anion Gap BUN Creatinine Estim Creat Clear Calc Estimated GFR Random Glucose Fasting Glucose Lactic Acid Lactic Acid F/U @ 2Hr Calcium Total Bilirubin Direct Bilirubin AST ALT Alkaline Phosphatase Troponin I High Sens B-Natriuretic Peptide Total Protein Albumin Lipase Stool Occult Blood Blood Type Antibody Screen Crossmatch Crossmatch ([facility]) 10/05/23 10/05/23 10/05/23 06:30 12:22 21:16 WBC 9.9 7.9 RBC 2.75 L 2.49 L Hgb 7.6 L 6.9 L* Hct 25.1 L 22.2 L MCV 91.3 89.2 MCH 27.6 27.7 MCHC 30.3 L 31.1 RDW 19.9 H 19.6 H Plt Count 198 197 MPV 9.9 9.9 Immature Gran % (Auto) Neut % (Auto) Lymph % (Auto) [place] % (Auto) Eos % (Auto) Baso % (Auto) Lymph # (Auto) [place] # (Auto) Eos # (Auto) Baso # (Auto) Abs Immat Gran (auto) Absolute Neuts (auto) Absolute Nucleated RBC 0.000 0.000 Nucleated RBC % (auto) 0.0 0.0 Hold Purple Top PT 19.2 H 18.7 H INR 1.6 H 1.5 H APTT aPTT Heparin Protocol 83.8 H D 34.2 L D VBG pH VBG pCO2 VBG pO2 VBG HCO3 VBG O2 Saturation VBG Base Excess Sodium Potassium Chloride Carbon Dioxide Anion Gap BUN Creatinine Estim Creat Clear Calc Estimated GFR Random Glucose Fasting Glucose Lactic Acid Lactic Acid F/U @ 2Hr Calcium Total Bilirubin Direct Bilirubin AST ALT Alkaline Phosphatase Troponin I High Sens B-Natriuretic Peptide Total Protein Albumin Lipase Stool Occult Blood Blood Type Antibody Screen Crossmatch Crossmatch ([facility]) 10/05/23 10/06/23 10/07/23 22:03 08:05 08:16 WBC RBC Hgb 8.2 L 8.3 L Hct 25.9 L 26.4 L MCV MCH MCHC RDW Plt Count MPV Immature Gran % (Auto) Neut % (Auto) Lymph % (Auto) [place] % (Auto) Eos % (Auto) Baso % (Auto) Lymph # (Auto) [place] # (Auto) Eos # (Auto) Baso # (Auto) Abs Immat Gran (auto) Absolute Neuts (auto) Absolute Nucleated RBC Nucleated RBC % (auto) Hold Purple Top PT INR APTT aPTT Heparin Protocol VBG pH VBG pCO2 VBG pO2 VBG HCO3 VBG O2 Saturation VBG Base Excess Sodium Potassium Chloride Carbon Dioxide Anion Gap BUN Creatinine Estim Creat Clear Calc Estimated GFR Random Glucose Fasting Glucose Lactic Acid Lactic Acid F/U @ 2Hr Calcium Total Bilirubin Direct Bilirubin AST ALT Alkaline Phosphatase Troponin I High Sens B-Natriuretic Peptide Total Protein Albumin Lipase Stool Occult Blood Blood Type O Positive Antibody Screen NEGATIVE Crossmatch Crossmatch ([facility]) See Detail Airway Mallampati Class: II TM Dist: >3cm Neck ROM: Full Loose/Missing/Broken Teeth: Yes (Edentulous) Heart: Irregularly irregular Lungs: CTAB Assessment and Plan Assessment Anesthesia Assessment: Anesthesia Plan Discussed and Chart Reviewed Final Anesthetic Review Family History of Problems with Anesthesia: No History of Problems with Anesthesia: No NPO: Yes ASA Class: IV Final Preanesthetic Review: No Changes in Pt Med Stat, Meds/Allgs Chart Reviewed, Consent Obtained/Reviewed and Anes Risks/Benef Reviewed Patient Risk: High Procedure Risk: Low Assessment/Block/Sedation in SS: Assess/Block/Sedation-SS Anesthetic Plan Anesthetic Plan: MAC: and TIVA Disposition: Standard PACU and Inp. Admit - IMC
--- NOTE | 2023-10-07 12:08 | MHC.CM.PN ---
EMR REVIEWED, [facility], PER HOSPITALIST PLAN FOR PT TO HAVE EGD TODAY AND LIKELY DC OVER W/E, CM WILL CONT TO FOLLOW DC NEEDS.
[2023-10-07] MEDS: Lactated Ringers 1,000 ML 100 ML IVCONT (13:10)
--- NOTE | 2023-10-07 13:29 | PC.NURSE ---
1300 - Answers documented are from patient and daughter via telephone as could answer. Dr. Cabrera reviewed all labs and reports and stated okay for patient to have procedure today. no interventions. No POC required, patient does not take any medications for diabetes. LCTA.
--- NOTE | 2023-10-07 13:47 | P.OP_ITS ---
Operative Note Operative Note Date of Service: 10/07/23 Narrative: Procedure: Esophagogastroduodenoscopy Endoscopist: Coral Novak MD Indication: Anemia, GIB Anesthesia Provider: Valentin Archer CRNA Anesthesia Type: MAC ?? EGD Procedure:?? The procedure, indications, preparation and potential complications were reviewed with the patient;s next of kin daughter Marisol, who indicated understanding and gave informed consent over the phone to proceed. A physical exam was performed. The endoscope was introduced through the mouth, and advanced to the second part of duodenum. The mucosa was carefully examined on slow withdrawal of the endoscope. The patient tolerated the procedure well. There were no immediate complications.? ? EGD Findings:? * Esophagus:? Normal mucosa noted in the entire esophagus. The Z line was at 36 cm. The diaphragmatic pain she was at 40 cm. There was a small hiatal he rnia. * Stomach:? Erythema, erosions scant heme was noted especially in the cardia and fundus of the stomach. Retroflexion was performed in the cardia that showed Hill grade 3 hiatal hernia. Random cold forceps gastric biopsies were taken to rule out H Pylori infection. * Duodenum:? Normal mucosa was noted in the whole of the examined duodenum. Cold forcep biopsies were taken from duodenal bulb and second portion of the duodenum to rule out celiac sprue. ? EGD Impressions:? * Hiatal hernia * Gastritis (biopsy) * Normal duodenum (biopsy) ?? Recommendations:?? * Follow biopsy results. Our office will call or send a letter with results within 7-10 days. * Cont omeprazole 20 BID x 8 weeks and then once daily as long as pt on anticoagulation. * Ok to resume anticoagulation. * Avoid NSAIDs. Above has been reviewed with the patient's daughter.
--- NOTE | 2023-10-07 17:37 | P.PNIM_ITS ---
Subjective Subjective Date of Service: 10/07/23 Interval History: anemia Review of Systems denies any abd pain or any gross bleeding Physical Exam 2 Vital Signs: Vital Signs: Last Vital Signs Temp 97.5 F 10/07/23 15:00 Pulse 74 10/07/23 15:00 Resp 18 10/07/23 15:00 BP 121/65 10/07/23 15:00 Pulse Ox 97 10/07/23 15:00 O2 Del Method Room Air 10/07/23 15:00 O2 Flow Rate 2 10/07/23 14:02 Oxygen Flow Rate 2 10/07/23 13:02 BMI result Body Mass Index 31.2 Appearance: awake ,alert , not indistress? cvs: rrr, [id number] , no murmur res: clear to auscultation ,no rhonchii or wheezing abd: no rebound or guarding ,nt, bs present. ext pulses present , no cyanosis . neuro: axo3 , nonfocal. Objective Data Active Medications Acetaminophen (Acetaminophen 325 Mg Tablet) 650 mg PO Q6H PRN PRN Reason: Pain, Mild (Pain Scale 1-3), fever or headache Last Admin: 10/06/23 21:20 Dose: 650 mg Documented By: SUNDAY Albuterol/Ipratropium (Albuterol/Iprat 2.5/0.5mg 3 Ml Ampul.Neb) 3 ml INHALE BID [facility] Last Admin: 10/07/23 07:21 Dose: 3 ml Documented By: MAGNO Atorvastatin Calcium (Atorvastatin Calcium 10 Mg Tablet) 10 mg PO DAILY [facility] Last Admin: 10/07/23 08:31 Dose: 10 mg Documented By: YOAV Calcium Carbonate (Calcium Carbonate 750 Mg Tab.Chew) 750 mg PO Q4H PRN PRN Reason: Heartburn Lactated Ringer's (Lr) 1,000 mls @ 100 mls/hr IVCONT .Q10H [facility] Last Admin: 10/07/23 13:10 Dose: 100 mls/hr Documented By: YOCASTA Magnesium Hydroxide (Milk Of Magnesia 30 Ml Oral.Susp) 30 ml PO DAILY PRN PRN Reason: Constipation Melatonin (Melatonin 3 Mg Tablet) 6 mg PO BEDTIME PRN PRN Reason: Insomnia Last Admin: 10/06/23 21:20 Dose: 6 mg Documented By: SUNDAY Metoprolol Tartrate (Metoprolol Tartrate 12.5 Mg Halftab) 12.5 mg PO BID [facility]; Protocol Last Admin: 10/07/23 08:31 Dose: 12.5 mg Documented By: YOAV Ondansetron HCl (Ondansetron Hcl 4 Mg/2 Ml Vial) 4 mg IVPUSH ONCE PRN PRN Reason: Nausea and Vomiting Stop: 10/07/23 19:03 Sertraline HCl (Sertraline Hcl 50 Mg Tablet) 50 mg PO DAILY [facility] Last Admin: 10/07/23 08:31 Dose: 50 mg Documented By: YOAV Sodium Chloride (0.9 % Sodium Chloride Flush 3 Ml Syringe) 3 ml IVFLUSH QSHIFT [facility] Last Admin: 10/07/23 08:31 Dose: Not Given Documented By: YOAV Non-Admin Reason: IV Running Labs 10/07/23 08:16 10/03/23 19:28 Assessment and Plan (1) DVT (deep venous thrombosis): Status: Acute (2) Acute GI bleeding: Status: Acute Assessment and Plan: 83F PMH hfpef, chronic hypoxic respiratory failure on 2L home o2, pulm hypertension, chronic afib, history of cva, history of AVR, rhuematoid arthritis, dm, history of DVT, mood disorder, history of uterine cancer, presented with blood in stool Acute blood loss anemia Due to GI bleed in patient on Eliquis Initial hemoglobin of 5, stool occult test was positive Transfused a total of 3 units (during this amdit sofar) H&H relatively stable but close to transfusion threshold: 7.6 /25 range Continued Pronotix IV b.i.d.,Hold Eliquis,h/h trending down on lovenox , give 1 prbc (10/05/23) h/h is 8 today Gi follwoup Chronic hypoxic respiratory failure secondary to pulmonary hypertension chronic diastolic CHF Stable, not in acute exacerbation Recent left femoral and popliteal vein DVT on 09/09/2023 U/S limited due to patient intolerance to level of popliteal vein, but did not demonstrate DVT in left lower extremity repeat dvt studies negative Chronic atrial fibrillation, history of CVA Holding Eliquis, on lovenox. DVT prophylaxis-mechanical due to GI bleed. DNR/DNI Reason for continued hospitalization: need for iv PPI, close monitoring of CBC for acute GI bleed, possible EGD if bleeds. Quality Stroke Does the patient have a stroke diagnosis?: No VTE Prior VTE?: Yes VTE Risk Level:: Medical - moderate - high VTE Device Contraindication: N/A - Device Ordered VTE Drug Contraindication: Treatment Not Tolerated
[2023-10-07] MEDS: Enoxaparin Sodium 80 MG/0.8 ML SYRINGE 70 MG SUBCUT (18:00)
[2023-10-07] MEDS: Acetaminophen 325 MG TABLET 650 MG PO (20:17)
[2023-10-07] MEDS: Melatonin 3 MG TABLET 6 MG PO (20:18)
[2023-10-08] VITALS (10 sets, daily range): BP systolic 116–140; BP diastolic 54–61; PULSE 60–88; RESP 18–20; TEMP 35.9–37.1; O2SAT 10–99
[2023-10-08] MEDS: 0.9 % Sodium Chloride Flush 3 ML SYRINGE IVFLUSH ×3 (00:25→15:02)
[2023-10-08] MEDS: Enoxaparin Sodium 80 MG/0.8 ML SYRINGE 70 MG SUBCUT ×2 (05:11→18:53)
[2023-10-08] MEDS: Albuterol/Iprat 2.5/0.5MG 3 ML AMPUL.NEB INHALE ×2 (08:01→19:32)
[2023-10-08 08:17] LABS: Hematocrit 25.6 % (37.0-47.0); Hemoglobin 7.8 g/dl (12.0-16.0)
[2023-10-08 08:18] LABS: Hematocrit 25.3 % (37.0-47.0); Hemoglobin 7.8 g/dl (12.0-16.0)
[2023-10-08] MEDS: Sertraline HCL 50 MG TABLET PO (08:28)
[2023-10-08] MEDS: Atorvastatin Calcium 10 MG TABLET PO (08:28)
[2023-10-08] MEDS: Metoprolol Tartrate 12.5 MG HALFTAB PO ×2 (08:28→21:18)
--- NOTE | 2023-10-08 10:12 | HO.POSTANES ---
Post Anesthesia Evaluation Post Anesthesia Evaluation Date of Service: 10/08/23 Vital Signs: Vital Signs Temp Pulse Resp BP Pulse Ox O2 Del Method O2 Flow Rate 10/08/23 08:01 61 20 10/08/23 07:24 96.8 F 61 20 118/56 L 95 Nasal Cannula 2 10/08/23 04:00 99 Nasal Cannula 2 10/08/23 03:21 97.5 F 60 18 140/61 H 99 Nasal Cannula 2 10/08/23 00:00 96 Room Air 10/07/23 23:06 98 F 56 18 124/59 L 96 Nasal Cannula 2 Anesthesia: Monitored Mental Status: Awake Pain Control: Satisfactory Nausea/Vomiting: None Hydration: Adequate Anesthesia-Related Issues: No Anes. Related Issues
--- NOTE | 2023-10-08 13:21 | HO.PM.IMPN ---
Subjective Subjective Date of Service: 10/08/23 Interval History: anemia Review of Systems denies any abd pain or any gross bleeding Physical Exam Vital Signs: Vital Signs: Last Vital Signs Temp 98.8 F 10/08/23 11:09 Pulse 70 10/08/23 11:09 Resp 18 10/08/23 11:09 BP 116/54 L 10/08/23 11:09 Pulse Ox 96 10/08/23 11:09 O2 Del Method Nasal Cannula 10/08/23 11:09 O2 Flow Rate 2 10/08/23 11:09 Oxygen Flow Rate 2 10/07/23 13:02 BMI result Body Mass Index 31.2 Appearance: awake ,alert , not indistress? cvs: rrr, [id number] , no murmur res: clear to auscultation ,no rhonchii or wheezing abd: no rebound or guarding ,nt, bs present. ext pulses present , no cyanosis . neuro: axo3 , nonfocal. Objective Data Active Medications Acetaminophen (Acetaminophen 325 Mg Tablet) 650 mg PO Q6H PRN PRN Reason: Pain, Mild (Pain Scale 1-3), fever or headache Last Admin: 10/07/23 20:17 Dose: 650 mg Documented By: SUNDAY Albuterol/Ipratropium (Albuterol/Iprat 2.5/0.5mg 3 Ml Ampul.Neb) 3 ml INHALE BID [facility] Last Admin: 10/08/23 08:01 Dose: 3 ml Documented By: MAGNO Atorvastatin Calcium (Atorvastatin Calcium 10 Mg Tablet) 10 mg PO DAILY [facility] Last Admin: 10/08/23 08:28 Dose: 10 mg Documented By: CHERISE Calcium Carbonate (Calcium Carbonate 750 Mg Tab.Chew) 750 mg PO Q4H PRN PRN Reason: Heartburn Enoxaparin Sodium (Enoxaparin Sodium 80 Mg/0.8 Ml Syringe) 70 mg SUBCUT Q12H [facility] Last Admin: 10/08/23 05:11 Dose: 70 mg Documented By: SUNDAY Magnesium Hydroxide (Milk Of Magnesia 30 Ml Oral.Susp) 30 ml PO DAILY PRN PRN Reason: Constipation Melatonin (Melatonin 3 Mg Tablet) 6 mg PO BEDTIME PRN PRN Reason: Insomnia Last Admin: 10/07/23 20:18 Dose: 6 mg Documented By: SUNDAY Metoprolol Tartrate (Metoprolol Tartrate 12.5 Mg Halftab) 12.5 mg PO BID [facility]; Protocol Last Admin: 10/08/23 08:28 Dose: 12.5 mg Documented By: CHERISE Sertraline HCl (Sertraline Hcl 50 Mg Tablet) 50 mg PO DAILY [facility] Last Admin: 10/08/23 08:28 Dose: 50 mg Documented By: CHERISE Sodium Chloride (0.9 % Sodium Chloride Flush 3 Ml Syringe) 3 ml IVFLUSH QSHIFT [facility] Last Admin: 10/08/23 08:29 Dose: 3 ml Documented By: CHERISE Labs 10/08/23 07:59 10/03/23 19:28 Assessment and Plan (1) Anemia: Status: Acute (2) Acute GI bleeding: Status: Acute Assessment and Plan: 83F PMH hfpef, chronic hypoxic respiratory failure on 2L home o2, pulm hypertension, chronic afib, history of cva, history of AVR, rhuematoid arthritis, dm, history of DVT, mood disorder, history of uterine cancer, presented with blood in stool Acute blood loss anemia Due to GI bleed in patient on Eliquis Initial hemoglobin of 5, stool occult test was positive Transfused a total of 4 units (during this amdit sofar) s/p egd-possible gastritis (acute) switched to po ppi gi recomended to start AC moniter h/h for another day Gi followup Chronic hypoxic respiratory failure secondary to pulmonary hypertension chronic diastolic CHF Stable, not in acute exacerbation Recent left femoral and popliteal vein DVT on 09/09/2023 U/S limited due to patient intolerance to level of popliteal vein, but did not demonstrate DVT in left lower extremity repeat dvt studies negative Chronic atrial fibrillation, history of CVA Holding Eliquis, on lovenox. DVT prophylaxis-mechanical due to GI bleed. DNR/DNI Reason for continued hospitalization: anemia on AC -need h/h moniterin for 24 hrs for discharge planning . Quality Stroke Does the patient have a stroke diagnosis?: No VTE Prior VTE?: Yes VTE Risk Level:: Medical - moderate - high VTE Device Contraindication: N/A - Device Ordered VTE Drug Contraindication: Treatment Not Tolerated
[2023-10-08] MEDS: Milk of Magnesia 30 ML ORAL.SUSP PO (14:16)
[2023-10-08] MEDS: Acetaminophen 325 MG TABLET 650 MG PO ×2 (15:01→21:17)
[2023-10-08] MEDS: Melatonin 3 MG TABLET 6 MG PO (21:17)
[2023-10-09] VITALS (10 sets, daily range): BP systolic 104–141; BP diastolic 48–74; PULSE 50–93; RESP 15–20; TEMP 35.9–36.4; O2SAT 95–98
[2023-10-09] MEDS: 0.9 % Sodium Chloride Flush 3 ML SYRINGE IVFLUSH ×4 (00:46→19:59)
[2023-10-09] MEDS: Enoxaparin Sodium 80 MG/0.8 ML SYRINGE 70 MG SUBCUT ×2 (05:47→17:57)
--- NOTE | 2023-10-09 06:24 | PC.NURSE ---
Assumed care of patient since 184. Patient remains asleep throughout the night. No events reported. VSS. Assisted with incontinence care, turning and repositioning.Lovenox 70 mg subc. given for VTE prophylaxis. No signs of distress noted.
[2023-10-09 06:28] LABS: Hematocrit 26.8 % (37.0-47.0); Mean Corpuscular HGB Conc 29.9 g/dl (31.0-35.0); Mean Corpuscular Hemoglobin 27.3 pg (27.0-33.0); Mean Corpuscular Volume 91.5 fL (80.0-98.0); Mean Platelet Volume 10.2 fL (9.4-12.3); Platelet Count 207 X10*3/uL (160-400); Red Blood Count 2.93 X10*6/uL (4.20-5.50); Red Cell Distribution Width 18.7 % (11.0-16.0); White Blood Count 4.4 X10*3/uL (4.8-10.8)
[2023-10-09] MEDS: Albuterol/Iprat 2.5/0.5MG 3 ML AMPUL.NEB INHALE ×2 (07:28→20:13)
[2023-10-09] MEDS: Metoprolol Tartrate 12.5 MG HALFTAB PO ×2 (08:09→20:00)
[2023-10-09] MEDS: Atorvastatin Calcium 10 MG TABLET PO (08:14)
[2023-10-09] MEDS: Sertraline HCL 50 MG TABLET PO (08:14)
--- NOTE | 2023-10-09 13:48 | P.PNIM_ITS ---
Subjective Subjective Date of Service: 10/09/23 Interval History: anemia , dvt ,afib Review of Systems no new episode of gross bleed denies any new c/o, Physical Exam 2 Vital Signs: Vital Signs: Last Vital Signs Temp 97.4 F 10/09/23 11:05 Pulse 90 10/09/23 11:05 Resp 18 10/09/23 11:05 BP 104/61 10/09/23 11:05 Pulse Ox 97 10/09/23 11:54 O2 Del Method Nasal Cannula 10/09/23 11:54 O2 Flow Rate 1 10/09/23 11:05 Oxygen Flow Rate 1 10/09/23 11:54 BMI result Body Mass Index 31.2 Appearance: awake ,alert , not indistress? cvs: rrr, [id number] , no murmur res: clear to auscultation ,no rhonchii or wheezing abd: no rebound or guarding ,nt, bs present. ext pulses present , no cyanosis . neuro: axo3 , nonfocal. Objective Data Active Medications Acetaminophen (Acetaminophen 325 Mg Tablet) 650 mg PO Q6H PRN PRN Reason: Pain, Mild (Pain Scale 1-3), fever or headache Last Admin: 10/08/23 21:17 Dose: 650 mg Documented By: SUNDAY Albuterol/Ipratropium (Albuterol/Iprat 2.5/0.5mg 3 Ml Ampul.Neb) 3 ml INHALE BID [facility] Last Admin: 10/09/23 07:28 Dose: 3 ml Documented By: MAGNO Atorvastatin Calcium (Atorvastatin Calcium 10 Mg Tablet) 10 mg PO DAILY [facility] Last Admin: 10/09/23 08:14 Dose: 10 mg Documented By: CHERISE Calcium Carbonate (Calcium Carbonate 750 Mg Tab.Chew) 750 mg PO Q4H PRN PRN Reason: Heartburn Enoxaparin Sodium (Enoxaparin Sodium 80 Mg/0.8 Ml Syringe) 70 mg SUBCUT Q12H [facility] Last Admin: 10/09/23 05:47 Dose: 70 mg Documented By: SUNDAY Magnesium Hydroxide (Milk Of Magnesia 30 Ml Oral.Susp) 30 ml PO DAILY PRN PRN Reason: Constipation Last Admin: 10/08/23 14:16 Dose: 30 ml Documented By: CHERISE Melatonin (Melatonin 3 Mg Tablet) 6 mg PO BEDTIME PRN PRN Reason: Insomnia Last Admin: 10/08/23 21:17 Dose: 6 mg Documented By: SUNDAY Metoprolol Tartrate (Metoprolol Tartrate 12.5 Mg Halftab) 12.5 mg PO BID [facility]; Protocol Last Admin: 10/09/23 08:09 Dose: 12.5 mg Documented By: CHERISE Sertraline HCl (Sertraline Hcl 50 Mg Tablet) 50 mg PO DAILY [facility] Last Admin: 10/09/23 08:14 Dose: 50 mg Documented By: CHERISE Sodium Chloride (0.9 % Sodium Chloride Flush 3 Ml Syringe) 3 ml IVFLUSH QSHIFT [facility] Last Admin: 10/09/23 08:10 Dose: 3 ml Documented By: CHERISE Labs 10/09/23 05:40 10/03/23 19:28 Labs: Laboratory Results - last 24 hr 10/09/23 05:40 MCV 91.5 MCH 27.3 MCHC 29.9 L RDW 18.7 H Plt Count 207 MPV 10.2 Absolute Nucleated RBC 0.000 Nucleated RBC % (auto) 0.0 Assessment and Plan (1) Anemia: Status: Acute (2) Acute GI bleeding: Status: Acute Assessment and Plan: 83F PMH hfpef, chronic hypoxic respiratory failure on 2L home o2, pulm hypertension, chronic afib, history of cva, history of AVR, rhuematoid arthritis, dm, history of DVT, mood disorder, history of uterine cancer, presented with blood in stool Acute blood loss anemia Due to GI bleed in patient on Eliquis Initial hemoglobin of 5, stool occult test was positive Transfused a total of 4 units (during this amdit sofar) s/p egd-possible gastritis (acute) switched to po ppi gi recomended to start AC moniter h/h for 1 day Gi followup Chronic hypoxic respiratory failure secondary to pulmonary hypertension chronic diastolic CHF Stable, not in acute exacerbation Recent left femoral and popliteal vein DVT on 09/09/2023 U/S limited due to patient intolerance to level of popliteal vein, but did not demonstrate DVT in left lower extremity repeat dvt studies negative Chronic atrial fibrillation, history of CVA Holding Eliquis, on lovenox. DVT prophylaxis-mechanical due to GI bleed. DNR/DNI Reason for continued hospitalization: anemia on AC -need h/h moniterin if h/h stays stable in am then will plan discharge. Quality Stroke Does the patient have a stroke diagnosis?: No VTE Prior VTE?: Yes VTE Risk Level:: Medical - moderate - high VTE Device Contraindication: N/A - Device Ordered VTE Drug Contraindication: Treatment Not Tolerated
[2023-10-09] MEDS: Milk of Magnesia 30 ML ORAL.SUSP PO (15:20)
[2023-10-10] MEDS: Acetaminophen 325 MG TABLET 650 MG PO (01:09)
[2023-10-10 03:17] VITALS: BP 131/56; PULSE 70; RESP 20; TEMP 37; O2SAT 94
[2023-10-10] MEDS: Enoxaparin Sodium 80 MG/0.8 ML SYRINGE 70 MG SUBCUT (05:14)
[2023-10-10 07:15] VITALS: BP 138/64; PULSE 65; RESP 17; TEMP 36.3; O2SAT 98
[2023-10-10 07:46] VITALS: PULSE 69; RESP 16; O2SAT 99
[2023-10-10] MEDS: Albuterol/Iprat 2.5/0.5MG 3 ML AMPUL.NEB INHALE (07:46)
[2023-10-10 08:10] LABS: Hematocrit 28.2 % (37.0-47.0); Hemoglobin 8.5 g/dl (12.0-16.0)
[2023-10-10] MEDS: 0.9 % Sodium Chloride Flush 3 ML SYRINGE IVFLUSH (08:27)
[2023-10-10] MEDS: Metoprolol Tartrate 12.5 MG HALFTAB PO (08:27)
[2023-10-10] MEDS: Docusate Sodium 100 MG CAPSULE PO (08:27)
[2023-10-10] MEDS: Atorvastatin Calcium 10 MG TABLET PO (08:27)
[2023-10-10] MEDS: Sertraline HCL 50 MG TABLET PO (08:27)
[2023-10-10 11:53] VITALS: BP 114/56; PULSE 76; RESP 19; TEMP 36.6; O2SAT 95
--- NOTE | 2023-10-10 13:12 | PM.DS ---
DS: Providers Provider Date of Service: 10/10/23 Date of admission: 09/29/23 16:09 Date of discharge: 10/10/23 Primary care physician: Rui Paz MD Admitting clinician: Giles Negron Attending physician on admission: Giles Negron Consults: 09/29/23 15:53 Consult to Gastroenterology Routine Consulting Provider: Coral Novak Reason for consultation: gi bleed Attending physician on discharge: Willam Aquino Discharging clinician: Willam Aquino DS: Diagnosis Discharge Diagnosis (1) Anemia: Status: Acute (2) Acute GI bleeding: Status: Acute DS: Summary Hospital Course Hospital Course: 83F PMH hfpef, chronic hypoxic respiratory failure on 2L home o2, pulm hypertension, chronic afib, history of cva, history of AVR, rhuematoid arthritis, dm, history of DVT, mood disorder, history of uterine cancer, presented with blood in stool. several episodes over last few days, dark, tarry, a/w epigastric pain. eliquis was stopped in group home 2 days ptp. in ED hgb 5. cT abd pending. hospital course: Patient was admitted for acute blood loss anemia was initially thought to have secondary to GI bleed: Patient Eliquis was placed on hold, patient got total 4 RBC during this admission, ppi, ct abd (please see imaging section for detail ct abd and imaging done during this admisison)negative for gross bleeding,seen by GI: GI discussed the case with patient's daughter and EGD was subsequently done-which shows gastritis and recommended to start anticoagulation: Patient is maintaining H&H around 8. GI recommended to continue PPI b.i.d., continue iron tabs. Continue H&H monitoring Q weekly for at least next 2 week, follow-up with GI outpatient for further workup if needed. Chronic hypoxic respiratory failure secondary to pulmonary hypertension chronic diastolic CHF-stable, not in acute exacerbation. Recent left femoral and popliteal vein DVT on 09/09/2023: dvt studies [place] [facility] [place].discussed with heamtology -needs AC. hx of cva /afib ch: on lovenox . plan: continue lovenox moniter cbc , follow up GI outpatient. Consider outpatient hematology evaluation Above management discussed with patient and her daughter, assessment plan coordination time spent 40 minute. Time Attestation Total time managing care of this patient today: 40 mintues. Discharge Coordination Time (in mins): 40 min Quality: Safe Use of Opioids Does Pt have an Active Cancer Diagnosis on the Problem List?: No Quality: Stroke Does the patient have a stroke diagnosis?: No Physical Exam Vital Signs: Vital Signs: Last Vital Signs Temp 97.8 F 10/10/23 11:53 Pulse 76 10/10/23 11:53 Resp 19 10/10/23 11:53 BP 114/56 L 10/10/23 11:53 Pulse Ox 95 10/10/23 11:53 O2 Del Method Room Air 10/10/23 12:53 O2 Flow Rate 2 10/10/23 07:15 Oxygen Flow Rate 92 10/10/23 12:53 BMI result Body Mass Index 31.2 Appearance: awake ,alert , seems at baseline . cvs: rrr, [id number] , no murmur res: clear to auscultation ,no rhonchii or wheezing abd: no rebound or guarding ,nt, bs present. ext pulses present , no cyanosis . neuro: axo3 , nonfocal. DS: Data Data Completed and Pending Completed studies during hospitalization [Text1]: Procedures Transfusion of Nonautologous Red Blood Cells into Peripheral Vein, Percutaneous Approach (01/01/21) Pending studies at discharge: Pending at discharge 10/07/23 13:38 Surgical [PTH] Routine Labs on day of discharge: Laboratory Results - last 24 hr 10/10/23 07:54 Hgb 8.5 L Hct 28.2 L Imaging Chest x-ray: Radiologist's impression: ITS Impressions Abdomen/Pelvis CT 09/29/23 13:50 IMPRESSION: 1. No visualized contrast extravasation to suggest active gastrointestinal bleeding, though the lateral wall of the descending colon is out of [id number]. 2. Moderate scattered colonic diverticulosis without evidence of acute diverticulitis. 3. Retroperitoneal and bilateral iliac chain lymphadenopathy increased in size from prior. 4. Mild splenomegaly, decreased from prior. 5. Heterogeneous liver attenuation, which can be seen with hepatocellular disease. 6. Cholelithiasis without evidence for acute cholecystitis. 7. Bilateral nonobstructing renal calculi. Venous Duplex 10/01/23 13:46 IMPRESSION: No DVT demonstrated in the left lower extremity. Exam is limited to the level of the popliteal vein. Patient could not tolerate examination of the calf veins Chest X-Ray 10/03/23 19:35 IMPRESSION: Mild cardiomegaly otherwise no acute process seen. Venous Duplex 10/03/23 21:18 IMPRESSION: No DVT demonstrated in the left lower extremity. Discharge Plan Discharge Anticipated Discharge Date/Time: 10/10/23 11:56 Patient Disposition: Xfer SNF Discharge Diagnosis: anemia ,dvt hx recent ,ch afib Referrals: [facility] [Outside] - 1 Day (RESUMPTION OF DIRECTOR OF ANNUAL GIVING CARE) Rui Paz MD [Primary Care Provider] - 1 Week Discharge Medications: New omeprazole 20 mg capsule,delayed release(DR/EC) 20 mg PO BID Qty: 30 0RF enoxaparin 80 mg/0.8 mL Syringe 70 mg subcut Q12H Qty: 1 0RF Continued ([facility] [place]) Hospital bed See Rx Instructions .Route .MEDSUPPLY Qty: 1 0RF Rx Instructions: As directed metoprolol tartrate 25 mg tablet 12.5 mg PO BID 90 Days Qty: 90 2RF ([facility] [place]) hospital mattress See Rx Instructions .Route .MEDSUPPLY Qty: 1 0RF Rx Instructions: As directed ([facility] [place]) blood-glucose meter Kit See Rx Instructions .ROUTE .MEDSUPPLY Qty: 1 0RF Rx Instructions: As directed check the blood sugar once a day ([facility] [place]) OneTouch Ultra Test Strip See Rx Instructions .ROUTE .MEDSUPPLY Qty: 100 3RF Rx Instructions: As directed check the blood sugar once a day ([facility] [place]) lancets Misc See Rx Instructions .ROUTE .MEDSUPPLY Qty: 100 0RF Rx Instructions: As directed check the blood sugar once a day ([facility] [place]) prothrombin time test strips Strip See Rx Instructions .Route Qty: 48 12RF Rx Instructions: As directed ([facility] [place]) INR strips ACELIS See Rx Instructions .Route .MEDSUPPLY Qty: 60 12RF Rx Instructions: As directed acetaminophen 500 mg Tablet 500 mg PO BEDTIME ipratropium-albuterol 0.5 mg-3 mg(2.5 mg base)/3 mL solution for nebulization 3 ml inhalation Q6H PRN (Reason: Shortness Of Breath Or Wheezing) ipratropium-albuterol 0.5 mg-3 mg(2.5 mg base)/3 mL solution for nebulization 3 ml inhalation BID guaifenesin 100 mg/5 mL Liquid 200 mg PO Q6H PRN (Reason: Cough) magnesium hydroxide [Milk of Magnesia] 400 mg/5 mL Suspension 30 ml PO DAILY PRN (Reason: Constipation) methotrexate sodium 2.5 mg tablet 20 mg PO PICKARD bisacodyl 10 mg Suppository 10 mg AR DAILY PRN (Reason: Constipation) ferrous sulfate 325 mg (65 mg iron) Tablet 325 mg PO MOWEFR Fleet Enema 19-7 gram/118 mL Enema 118 ml AR DAILY PRN (Reason: Constipation) furosemide 20 mg tablet 60 mg PO DAILY oxycodone 5 mg tablet 2.5 mg PO Q8H PRN (Reason: Pain) glucagon HCl [Glucagon (HCl) Emergency Kit] 1 mg Recon Soln 1 mg SUBCUT Q20M PRN (Reason: Hypoglycemia) Rx Instructions: until target blood sugar attained simvastatin 20 mg tablet 20 mg PO BEDTIME sertraline [Zoloft] 25 mg tablet 50 mg PO DAILY (DME) blood-glucose meter [[employer] Ultra2 Meter] Kit See Rx Instructions .ROUTE .MEDSUPPLY Qty: 1 0RF Rx Instructions: As directed check the blood sugar once a day (DME) blood sugar diagnostic Strip See Rx Instructions .ROUTE .MEDSUPPLY Qty: 250 3RF Rx Instructions: Twice a day acetaminophen 500 mg capsule 500 mg PO Q6H PRN (Reason: Pain) Discontinued Eliquis 5 mg tablet 5 mg PO BID Discharge Orders: Discharge Order (Routine); Ordered 10/10/23 Ordered By: Willam Aquino Diet: Advance to usual diet Activity on Discharge: As tolerated Stand Alone Forms: Patient Portal Discharge page Print Language: Estonian Care Plan Goals: Patient was admitted for acute blood loss anemia was initially thought to have secondary to GI bleed: Patient Eliquis was placed on hold, patient got total 4 RBC during this admission, ppi, seen by GI: GI discussed the case with patient's daughter and EGD was subsequently done-which shows gastritis and recommended to start anticoagulation: Patient is maintaining H&H around 8. GI recommended to continue PPI b.i.d., continue iron tabs. Continue H&H monitoring Q weekly for at least next 2 week, follow-up with GI outpatient for further workup if needed. Chronic hypoxic respiratory failure secondary to pulmonary hypertension chronic diastolic CHF-stable, not in acute exacerbation. Recent left femoral and popliteal vein DVT on 09/09/2023: dvt studies [place] [facility] [place].discussed with heamtology -needs AC. hx of cva /afib ch: on lovenox . moniter cbc , follow up GI outpatient. Health Concerns: moniter cbc , follow up GI outpatient. consider outpatient follow up hematology follow up with PCP. Plan of Treatment: as above. Assessment: as above.
--- NOTE | 2023-10-20 07:54 | P.CDIM_ITS ---
PROVIDER RESPONSE TEXT: To clarify, the appropriate diagnosis supported by the clinical indicators: No, GIB is not related to / associated with / due to Eliquis QUERY TEXT: PHYSICIAN'S DOCUMENTATION REQUEST Date of Query: 10/18/2023 06:50 AM EDT Patient Name: Yakelin Abreu Admit Date: 09/29/2023 Dear Willam Aquino MD, A review of the medical record indicates additional documentation may be needed. Please review below and update the documentation accordingly. Documentation includes the conditions of GIB and Eliquis use. Clinical Indicators: Per Discharge Summary 10/10/23: admitted for acute blood loss anemia was initially thought to have secondary to GI bleed: Patient Joleen rodolfo was placed on hold, patient got total 4 RBC during this admission, ppi Please clarify the relationship between these conditions: Yes, GIB is related to / associated with / due to Eliquis No, GIB is not related to / associated with / due to Eliquis Other (explain) Clinically unable to determine (explain) Thank you, Kandi Nava RN Use of terms such as suspected, likely, concern for, or probable (associated with a specific diagnosi s that is being evaluated, monitored, or treated as if it exists) are acceptable and can be coded in the inpatient se tting, when documented at the time of discharge. Please use your independent medical judgment in providing your response. THIS QUERY IS PART OF THE PERMANENT MEDICAL RECORD
== END 2023-10-10 15:13 | disposition skilled nursing facility (03) | DRG 378 ==
LOC: HO.ED 18:53 → HO.EDOVER 19:23 → HO.IMC 09-30 07:41
PROVIDERS: Internal Medicine; Student in an Organized Health Care Education/Training Program; Admitting Provider Internal Medicine; Emergency Provider Emergency Medicine Emergency Medical Services; PCP Internal Medicine; Visit Provider Internal Medicine
PROC: 0DJ08ZZ Inspection of Upper Intestinal Tract, Via Natural or Artificial Opening Endoscopic (ICD-10-PCS; CPT 43235; principal; 2023-10-07 13:00)
DX: K29.01 Acute gastritis with bleeding (principal); D62 Acute posthemorrhagic anemia; I48.19 Other persistent atrial fibrillation; I50.32 Chronic diastolic (congestive) heart failure; J96.11 Chronic respiratory failure with hypoxia; K44.9 Diaphragmatic hernia without obstruction or gangrene; E11.9 Type 2 diabetes mellitus without complications; Z66 Do not resuscitate; M06.9 Rheumatoid arthritis, unspecified; Z86.73 Personal history of transient ischemic attack (TIA), and cerebral infarction without residual deficits; I27.20 Pulmonary hypertension, unspecified; Z85.42 Personal history of malignant neoplasm of other parts of uterus; Z99.81 Dependence on supplemental oxygen; Z95.2 Presence of prosthetic heart valve; Z86.718 Personal history of other venous thrombosis and embolism; Z79.01 Long term (current) use of anticoagulants; Z79.631 Long term (current) use of antimetabolite agent; Z79.899 Other long term (current) drug therapy
CPT/HCPCS: 36415; 71045; 74178; 80048; 80076; 82272; 82803; 83605; 83690; 83880; 84484; 85014; 85018; 85025; 85027; 85610; 85730; 86850; 86900; 86901; 86920; 86922; 88305; 88313; 88342; 92950; 93005; 93971; 94640; 99285; J1644; J1650; J2270; J2470; J2704; J7120; P9016; Q9967

== ENCOUNTER → 2023-09-29 13:00 | Outpatient (BNV) | payer MEDICARE, OTHER, SELFPAY | PROVIDERS: Emergency Provider Emergency Medicine Emergency Medical Services; PCP Internal Medicine; Visit Provider Internal Medicine | DX: I82.402 Acute embolism and thrombosis of unspecified deep veins of left lower extremity (principal); K92.2 Gastrointestinal hemorrhage, unspecified | CPT/HCPCS: 99223; 99231; 99232; 99239; 99499 ==

== ENCOUNTER → 2023-09-29 16:09 | Outpatient (BNV) | payer MEDICARE, OTHER, SELFPAY | PROVIDERS: Admitting Provider Internal Medicine; Emergency Provider Emergency Medicine Emergency Medical Services; PCP Internal Medicine; Visit Provider Internal Medicine | DX: K92.2 Gastrointestinal hemorrhage, unspecified (principal) | CPT/HCPCS: 43239; 99223; 99232; 99233 ==

== ENCOUNTER → 2023-10-20 15:02 | Outpatient (RCR) | payer MEDICARE, OTHER, SELFPAY ==
[2020-03-03 14:53] VITALS: BP 132/70; PULSE 80; RESP 14; TEMP 37.1; O2SAT 96; BMI 35.4
--- NOTE | 2020-03-03 14:58 | P.PNHO_ITS ---
Medical Summary - Medical Summary Date of Service: 03/03/20 Chief complaint: Follow-up for: Anemia. Thrombocytopenia. Medical Summary: DIAGNOSIS: 1. Thrombocytopenia 2. Anemia 3. Rheumatoid arthritis 4. Anemia of chronic disease. Interval History Interval history: This is a pleasant 79-year-old lady, here for a follow-up visit. Overall she is stable however she tells me that she was admitted to the hospital. She has a H/O rheumatoid arthritis. She gets Remicade at [facility] under the care of Dr. Lopez. She has had a few falls. It mostly happens when she is using liquid soap in the shower. She slips. She has a service dog. If anything happens the dog runs to [place], her . If a stranger comes in the dog barks like crazy. Her energy level is not that good, however she forces herself to keep going. 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 She is knitting and crochetting. She has a [employer] 3 times a week. I did offer to increase that however she does not wish to at this time. Denies chest pain nor shortness of breath. No abdominal pain, nausea vomiting diarrhea, no gross blood in the stools. She enjoys a good appetite, her weight is stable. She is in good spirits. Rest of the review systems is unremarkable. Review of Systems - Constitutional Reports no additional constitutional complaints - Eyes Reports no additional eye complaints - ENT Reports no additional ear, nose, mouth, and throat complaints - Cardiovascular Reports no additional cardiovascular complaints - Respiratory Reports no additional respiratory complaints - Gastrointestinal Reports no additional gastrointestinal complaints - Genitourinary Reports no additional female genitourinary complaints - Musculoskeletal Reports no additional musculoskeletal complaints - Integumentary/Breasts Skin/Breast: Reports no additional skin complaints - Neurologic Reports no additional neurologic complaints - Psychiatric Reports no additional psychiatric complaints - Endocrine Reports no additional endocrine complaints - Hematologic/Lymphatic Reports no additional hematologic/lymphatic complaints - Allergic/Immunologic Reports no additional allergic/immunologic complaints [facility] Medical History: Medical History (Last Updated 02/27/20 @ 17:54 by Riccardo Page MD) Anxiety and depression Atrial fibrillation CVA (cerebral vascular accident) Hypercholesterolemia Hypertension Lumbar vertebral fracture Obesity (BMI 30-39.9) Rheumatoid arthritis TIA (transient ischemic attack) Type 2 diabetes mellitus with hyperglycemia Uterine cancer Functional capacity: uses cane/walker Patient : No Family History: Family History (Last Updated 11/27/19 @ 08:03 by CHRISTY Dinh) Father Diabetes CAD (coronary artery disease) Mother Diabetes Hypertension Perforated ulcer Sister Diabetes Surgical History: Surgical History (Last Updated 11/26/19 @ 19:05 by Riccardo Page MD) History of appendectomy History of left knee replacement History of right knee joint replacement S/P ANTONIO-BSO Home Medications and Allergies Home Medications Medication Instructions Recorded Confirmed Type amlodipine 5 mg tablet 5 mg PO DAILY 11/27/19 03/03/20 History atenolol 50 mg tablet 50 mg PO DAILY 11/27/19 03/03/20 History hydroxychloroquine 200 mg tablet 200 mg PO BID 11/27/19 03/03/20 History infliximab 100 mg intravenous 100 mg IV Q6W ea 11/27/19 03/03/20 History solution lisinopril 40 mg tablet 40 mg PO DAILY 11/27/19 03/03/20 History metformin 500 mg tablet 500 mg PO BID 11/27/19 03/03/20 History methotrexate sodium 2.5 mg tablet 2.5 mg PO QWEEK 11/27/19 03/03/20 History pravastatin 10 mg tablet 10 mg PO BEDTIME 11/27/19 03/03/20 History sertraline 50 mg tablet 50 mg PO DAILY 11/27/19 03/03/20 History Allergies Allergy/AdvReac Type Severity Reaction Status Date / Time shellfish derived Allergy Unknown itchy Verified 11/27/19 11:56 procaine [From Novocain] AdvReac Unknown makes Verified 11/27/19 11:56 patient itchy,puffy Exam Vital signs: Vital Signs Temp 98.7 F 03/03/20 14:53 Pulse 80 03/03/20 14:53 Resp 14 03/03/20 14:53 BP 132/70 03/03/20 14:53 Pulse Ox 96 03/03/20 14:53 Intake & Output 03/02/20 03/03/20 03/03/20 18:59 06:59 18:59 Other: Weight 85.1 kg Weight 85.1 kg Body Mass Index 35.4 - Constitutional Present: no acute distress - Routine HEENT Exam Head: Present: normal inspection Eye: Present: normal appearance ENT: Present: mucous membranes moist - Routine Neck Exam Present: full ROM - Routine Respiratory Exam Present: CTAB - Routine Cardiovascular Exam Cardiovascular: Present: RRR, S1, S2 - Routine Abdominal Exam Present: soft, nontender - Routine Rectal Exam Patient deferred: digital exam - Routine Extremities Exam Present: nontender - Routine Back/Spine/Pelvis Exam Back/Spine: Present: full ROM - Routine Skin Exam Present: intact - Routine Neurological Exam Present: alert, oriented X3 - Routine Psychiatric Exam Present: normal affect Progress Note: A/P (1) Anemia Status: Acute Assessment and plan: CBC: WBC 5, Hgb 11, Hct 35.2, Plt 179. CMP:Lytes: wnl, glu 135,BUN 18, Fretted Instruments Inspector.0.70. LFTs 0.4/97/11/<6. Iron Profile: 37/259/14/65. 79 year-old lady, with history of Anemia of Chronic Disease, related to the Rheumatoid Arthritis, i.e. underlying collagen vascular disorder. In addition, she has a history of Thrombocytopenia. This is most likely related to the Remicade. Her hemoglobin is holding stable. 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 PLAN: I offered to arrange for more help at home however she declined. The plan is to continue to follow her along. She will return in 6 months for a followup visit. She will continue to followup with Dr. Murray in the interim. Thank you, CC: Dr. Murray. Dr. Page. - Time Spent With Patient Total time spent is greater than 50% in coordination of care (as documented) at patient's floor/unit and/or counseling patient: 25 - 35 minutes
[2020-09-01 12:58] VITALS: BMI 36.1
[2020-09-01 12:59] VITALS: BP 137/79; PULSE 67; RESP 18; TEMP 37; O2SAT 94
[2020-09-01 13:02] LABS: MANUAL DIFF FLAG NO
[2020-09-01 13:08] LABS: Basophils Percent Auto 0.4 % (0-2); Eosinophils Absolute Auto 0.2 X10*3/uL (0.0-0.4); Eosinophils Percent Auto 4.6 % (0-4); Hematocrit 37.2 % (37-47); Hemoglobin 11.6 g/dl (12.0-16.0); Imm Gran Abs Auto 0.01 X10*3/uL (0.00-0.03); Imm Gran Pct Auto 0.2 % (0.0-0.4); Lymphocytes Absolute Auto 1.1 X10*3/uL (1.2-4.9); Lymphocytes Percent Auto 23.1 % (20-40); Mean Corpuscular HGB Conc 31.2 g/dl (31.0-35.0); Mean Corpuscular Hemoglobin 30.1 pg (27.0-33.0); Mean Corpuscular Volume 96.4 fL (80-98); Mean Platelet Volume 10.1 fL (9.4-12.3); Monocytes Absolute Auto 0.5 X10*3/uL (0.1-1.2); Monocytes Percent Auto 10.7 % (2-11); Neutrophils Absolute Auto 2.9 X10*3/uL (2.0-8.3); Platelet Count 153 X10*3/uL (160-400); Red Blood Count 3.86 X10*6/uL (4.20-5.50); Red Cell Distribution Width 15.6 % (11.0-16.0); White Blood Count 4.8 X10*3/uL (4.8-10.8)
--- NOTE | 2020-09-01 13:14 | PM.HEMONCPN ---
Medical Summary - Medical Summary Date of Service: 09/01/20 Chief complaint: Follow-up for: Anemia. Medical Summary: DIAGNOSIS: 1. Thrombocytopenia 2. Anemia 3. Rheumatoid arthritis 4. Anemia of chronic disease. Interval History Interval history: This is a pleasant 80 year-old lady, here for a follow-up visit. Overall she is stable however she tells me that she was admitted to the hospital, back on July 15. Hospital course: 80-year-old woman presented to the ER with complaints of fever, flank pain, general malaise and achiness. This had been ongoing over the last 4 days. She reported some nausea, no vomiting, increased urination and diarrhea. She did report some chronic shortness of breath especially with ambulation she denied chest pain. She has history of congestive heart failure but appears euvolemic at this time. She did have a fever of 101.6, BNP 665, urinalysis positive, COVID negative. Abdominal CT negative for any acute abnormality, chest x-ray shows no large focal consolidation. In the ER she received IV Levaquin, magnesium, Lasix, cefepime and Tylenol. She was admitted for further management of acute pyelonephritis. Pyelonephritis. Initially treated with Rocephin, blood cx negative after 48 hours. No back pain. Will discharge home with Ceftin for total of 7 days. HFpEF. Mild exacerbation. Chronic left lower extremity edema. Treated with one dose of IV lasix. Can continue oral lasix at home. No respiratory symptoms and not requiring any supplemental oxygen. She is stable for discharge home to resume VNA services. INR on day of discharge is 1.7. Will increase dose of Coumadin to 4 mg today only. Should repeat INR on Tuesday. Further Coumadin dosing based on outcome of Tuesday's INR per coumadin clinic. New retroperitoneal lymphadenopathy incidentally seen on CT scan. Recommend outpatient follow-up with PCP for further workup as clinically indicated Denies chest pain nor shortness of breath. No abdominal pain, nausea vomiting diarrhea, no gross blood in the stools. She enjoys a good appetite, her weight is stable. She has a H/O rheumatoid arthritis. She gets Remicade at [facility] under the care of Dr. Lopez. She has a service dog. If anything happens the dog runs to [place], her . If a stranger comes in the dog barks like crazy. Her energy level is not that good, however she forces herself to keep going. 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 She is knitting and crochetting. 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 I did offer to increase that however she does not wish to at this time. She is in good spirits. Rest of the review systems is unremarkable. Review of Systems - Constitutional Reports no additional constitutional complaints - Eyes Reports no additional eye complaints - ENT Reports no additional ear, nose, mouth, and throat complaints - Cardiovascular Reports no additional cardiovascular complaints - Respiratory Reports no additional respiratory complaints - Gastrointestinal Reports no additional gastrointestinal complaints - Genitourinary Reports no additional female genitourinary complaints - Musculoskeletal Reports no additional musculoskeletal complaints - Integumentary/Breasts Skin/Breast: Reports no additional skin complaints - Neurologic Reports no additional neurologic complaints - Psychiatric Reports no additional psychiatric complaints - Endocrine Reports no additional endocrine complaints - Hematologic/Lymphatic Reports no additional hematologic/lymphatic complaints - Allergic/Immunologic Reports no additional allergic/immunologic complaints [facility] Medical History: Medical History (Last Reviewed 09/01/20 @ 13:14 by Aminah Morales RN) (HFpEF) heart failure with preserved ejection fraction Anxiety and depression Atrial fibrillation Chronic anticoagulation CVA (cerebral vascular accident) Hypercholesterolemia Hypertension Lumbar vertebral fracture Obesity (BMI 30-39.9) Rheumatoid arthritis Sepsis TIA (transient ischemic attack) Type 2 diabetes mellitus with hyperglycemia Uterine cancer Functional capacity: uses cane/walker Patient : No Family History: Family History (Last Reviewed 09/01/20 @ 13:14 by Aminah Morales RN) Father Diabetes CAD (coronary artery disease) Mother Diabetes Hypertension Perforated ulcer Sister Diabetes Surgical History: Surgical History (Last Reviewed 09/01/20 @ 13:14 by Aminah Morales RN) History of appendectomy History of left knee replacement History of right knee joint replacement S/P ANTONIO-BSO Social History: Social History (Last Reviewed 09/01/20 @ 13:14 by Aminah Morales RN) Living Situation History: Household Members: Spouse Housing: House Do you presently have visiting nurse or other home services: Yes Alcohol History: Alcohol intake: never Tobacco History: Patient Tobacco Use Status: Never used Tobacco Nutrition Assessment: Patient : No Occupation Assessmet: service: No Current occupational status: retired Oncology Screenings - ECOG Performance Status ECOG Performance Status: 2 Home Medications and Allergies Home Medications Medication Instructions Recorded Confirmed Type atenolol 50 mg tablet 50 mg PO DAILY 11/27/19 07/13/20 History hydroxychloroquine 200 mg tablet 200 mg PO BID 11/27/19 07/13/20 History metformin 500 mg tablet 500 mg PO BID 11/27/19 07/13/20 History methotrexate sodium 2.5 mg tablet 2.5 mg PO QWEEK 11/27/19 07/13/20 History folic acid 1 mg PO DAILY 05/18/20 09/01/20 History atorvastatin DAILY 07/13/20 History sertraline [Zoloft] 25 mg PO DAILY 09/01/20 09/01/20 History warfarin 2 mg PO DAILY 09/01/20 09/01/20 History Allergies Allergy/AdvReac Type Severity Reaction Status Date / Time shellfish derived Allergy Unknown itchy Verified 06/09/20 10:21 procaine [From Novocain] AdvReac Unknown makes Verified 06/09/20 10:21 patient itchy,puffy Exam Vital signs: Vital Signs Temp 98.6 F 09/01/20 12:59 Pulse 67 09/01/20 12:59 Resp 18 09/01/20 12:59 BP 137/79 09/01/20 12:59 Pulse Ox 94 09/01/20 12:59 Intake & Output 08/31/20 09/01/20 09/01/20 18:59 06:59 18:59 Other: Weight 86.6 kg [place] Weight in Grams 10170 Weight 86.6 kg Body Mass Index 36.1 - Constitutional Present: no acute distress - Routine HEENT Exam Head: Present: normal inspection Eye: Present: normal appearance ENT: Present: mucous membranes moist - Routine Neck Exam Present: full ROM - Routine Respiratory Exam Present: CTAB - Routine Cardiovascular Exam Cardiovascular: Present: RRR, S1, S2 - Routine Abdominal Exam Present: soft, nontender - Routine Rectal Exam Patient deferred: digital exam - Routine Extremities Exam Present: nontender - Routine Back/Spine/Pelvis Exam Back/Spine: Present: full ROM - Routine Skin Exam Present: intact - Routine Neurological Exam Present: alert, oriented X3 - Routine Psychiatric Exam Present: normal affect Data - Labs CBC & Chem 7: 09/01/20 12:50 09/01/20 12:50 Labs: 09/01/20 12:50 Complete Blood Count Auto Diff Routine Laboratory Last Values WBC 4.8 X10*3/uL (4.8-10.8) 09/01/20 12:50 RBC 3.86 X10*6/uL (4.20-5.50) L 09/01/20 12:50 Hgb 11.6 g/dl (12.0-16.0) L 09/01/20 12:50 Hct 37.2 % (37-47) 09/01/20 12:50 MCV 96.4 fL (80-98) 09/01/20 12:50 MCH 30.1 pg (27.0-33.0) 09/01/20 12:50 MCHC 31.2 g/dl (31.0-35.0) 09/01/20 12:50 RDW 15.6 % (11.0-16.0) 09/01/20 12:50 Plt Count 153 X10*3/uL (160-400) L 09/01/20 12:50 MPV 10.1 fL (9.4-12.3) 09/01/20 12:50 Immature Gran % (Auto) 0.2 % (0.0-0.4) 09/01/20 12:50 Neut % (Auto) 61.0 % (45-73) 09/01/20 12:50 Lymph % (Auto) 23.1 % (20-40) 09/01/20 12:50 Archuleta % (Auto) 10.7 % (2-11) 09/01/20 12:50 Eos % (Auto) 4.6 % (0-4) H 09/01/20 12:50 Baso % (Auto) 0.4 % (0-2) 09/01/20 12:50 Lymph # (Auto) 1.1 X10*3/uL (1.2-4.9) L 09/01/20 12:50 Archuleta # (Auto) 0.5 X10*3/uL (0.1-1.2) 09/01/20 12:50 Eos # (Auto) 0.2 X10*3/uL (0.0-0.4) 09/01/20 12:50 Baso # (Auto) 0.0 X10*3/uL (0.0-0.2) 09/01/20 12:50 Abs Immat Gran (auto) 0.01 X10*3/uL (0.00-0.03) 09/01/20 12:50 Absolute Neuts (auto) 2.9 X10*3/uL (2.0-8.3) 09/01/20 12:50 Absolute Nucleated RBC 0.000 X10*3/uL (0.0-0.012) 09/01/20 12:50 Nucleated RBC % (auto) 0.0 /100WBC (0.0-0.2) 09/01/20 12:50 Progress Note: A/P (1) Anemia Status: Acute Assessment and plan: CBC: WBC 5, Hgb 11, Hct 35.2, Plt 179. CMP:Lytes: wnl, glu 135,BUN 18, Prepared Foods Supervisor.0.70. LFTs 0.4/97/11/<6. Iron Profile: 37/259/14/65. 80 year-old lady, with history of Anemia of Chronic Disease, related to the Rheumatoid Arthritis, i.e. underlying collagen vascular disorder. In addition, she has a history of Thrombocytopenia. This is most likely related to the Remicade. Her hemoglobin is holding stable. 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 CT scan of the abdomen from July 15, upon admission: 1. No CT evidence of acute abnormality within the abdomen or pelvis. 2. New retroperitoneal lymphadenopathy. 3. Nonobstructing right renal calculi. 4. Other chronic and nonacute findings as above. I discussed the findings with the patient. Gave her the option of proceeding me the lymph node biopsy. The patient prefers to follow these. She would like another scan in a few months time, simply for monitoring. PLAN: I offered to arrange for more help at home however she declined. The plan is to continue to follow her along. Will repeat CT scan in 3 months time. She will return in 6 months for a followup visit. She will continue to followup with Dr. Murray in the interim. Thank you, CC: Dr. Murray. Dr. Page. - Time Spent With Patient Time Spent with Patient (in minutes): 30
[2020-09-01 13:55] LABS: Alanine Aminotransferase 10 U/L (0-31); Albumin Level 3.9 g/dL (3.5-5.0); Alkaline Phosphatase 101 U/L (39-117); Anion Gap 11 (12-20); Aspartate Amino Transferase 18 U/L (5-31); Bilirubin Total 0.7 mg/dL (0.0-1.0); Blood Urea Nitrogen 16 mg/dL (9-16); Calcium 8.9 mg/dL (8.4-10.2); Carbon Dioxide 27 mmol/L (22-29); Chloride 109 mmol/L (96-108); Creatinine Clr Calc Pharmacy 60.6; Estimated Glomerular Filt Rate > 60; Glucose Random 73 mg/dL (60-115); Potassium 4.2 mmol/L (3.3-5.1); Sodium 143 mmol/L (135-145); Total Protein 7.5 g/dL (6.5-8.0)
[2020-09-01 14:03] LABS: Ferritin 46 ng/mL (10-250)
--- NOTE | 2020-09-01 15:37 | MHC.HEMONC ---
Exam with Dr Eisenberg. Her was present. Labs obtained and reviewed with patient. Medications/Clinical Summary updated by this RN. Patient reports that she is recovering from her recent hospital stay and is feeling ok. She reports that she has a follow up with Dr Murray next Tuesday. Follow up with Dr Eisenberg scheduled for 03/05/2021.
--- NOTE | 2020-12-05 13:35 | MHC.HEMONC ---
Order for CT of abdomen given to Adonis for entering into OF.
--- NOTE | 2021-03-06 12:30 | MHC.HEMONC ---
Pt did not arrive for scheduled f/u visit yesterday, but her Cody arrived for his, informed this nurse that caring for this pt, his , has been increasingly difficult w/ her Alzheimer's dementia. Pt's met w/ Dr. 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 Nurse called [facility], was transferred to pt's caseworker protective services, Matt Valdivia, left a VM explaining situation, requesting pt be reevaluated for increased freq and amount of services, left CB#.
--- NOTE | 2021-09-02 13:18 | HO.HEMONCSCH ---
LM reminding pt of f/u apt for 09/03/21
--- NOTE | 2021-09-02 13:29 | HE.ONCSEC ---
PATIENT'S DAUGHTER JAMIL CALLED BACK STATING SHE NEEDS TO CANCEL MOTHER'S APPT DUE TO HER/OR PT ( SHE DID NOT SPECIFY ) HAVING A COURT MEETING TOMORROW WHICH IS THE SAME DAY APPT . SHE ALSO STATED SHE WOULD LIKE TO HAVE HER MOTHER AND FATHER TO HAVE THEIR APPT AT THE SAME TIME ( PATIENT STATES THAT DR SEES THEM AT THE SAME TIME ) . I WILL CANCEL PATIENTS APPT FOR NOW & I WILL ASK ABOUT HOW SHE WANTS TO GO ABOUT THE APPTS . I WILL CALL THE PATIENT'S DAUGHTER TO INFORM HER I WILL CANCEL APPT AND SOON I GET A RESPONSE FROM I WILL CALL HER BACK REGARDING APPT.
--- NOTE | 2021-09-02 14:07 | HE.ONCSEC ---
LEFT PATIENT'S DAUGHTER A VOICEMAIL IN REGARDS TO THE APPT I WILL CALL AGAIN IN AN HOUR .
--- NOTE | 2021-09-02 15:50 | HE.ONCSEC ---
LEFT PATIENT'S DAUGHTER A SECOND VOICEMAIL INFORMING PATIENT THAT I CANCELED MOTHER'S APPT PER HER REQUEST AND TO PLEASE CALL BACK TO RESCHEDULE .
--- NOTE | 2021-09-03 10:34 | HE.ONCSEC ---
I ASKED ABOUT PATIENT AND IF SHE WOULD LIKE ME TO BOOK HER AND HER ( PER PATIENT & PATIENT'S DAUGHTER'S REQUEST ) TO BE BOOKED THE SAME DAY AND SAID YES . PATIENT'S IS BOOKED 10/02/21 @ 1:20PM AND PATIENT IS ON THE SAME DAY AT 1:40PM . I CALLED AND NOTIFIED THE DAUGHTER OF THIS AND SHE CONFIRMED APPT .
== END | disposition home or self-care (01) ==
LOC: HO.ONC 03-03 14:34
PROVIDERS: PCP Internal Medicine; Visit Provider Internal Medicine Medical Oncology
DX: D69.6 Thrombocytopenia, unspecified (principal); M06.9 Rheumatoid arthritis, unspecified; D63.8 Anemia in other chronic diseases classified elsewhere
CPT/HCPCS: 36415; 80053; 82728; 85025; 99214

== ENCOUNTER 2023-11-02 22:10 | Emergency (ER) | payer MEDICARE, OTHER, SELFPAY ==
--- NOTE | 2023-11-02 | ECG_ITS ---
Test Reason : CHEST PAIN Blood Pressure : / mmHG Vent. Rate : 075 BPM Atrial Rate : 000 BPM P-R Int : 000 ms QRS Dur : 154 ms QT Int : 476 ms P-R-T Axes : 000 099 -50 degrees QTc Int : 531 ms Atrial fibrillation Right bundle branch block T wave abnormality, consider inferolateral ischemia Abnormal ECG When compared with ECG of 29-SEP-2023 11:55, No significant change was found Referred By: Generic ED Physician Electronically Signed By:JESÚS TAYLOR
--- NOTE | ~2023-11-02 | XR_ITS ---
EXAMINATION: XR CHEST CLINICAL INFORMATION: Pain. COMPARISON: October 03, 2023. TECHNIQUE: 2 views of the chest were obtained. FINDINGS: The lung volumes are low limiting evaluation. The cardiomediastinal silhouette is stable. There is pulmonary vascular congestion. There appears to be atelectasis or scarring at the left lung base. The lungs are otherwise clear. There is bilateral glenohumeral degenerative change. XR/XR chest 2V IMPRESSION: Pulmonary vascular congestion. Atelectasis or scarring at the left lung base. Bilateral glenohumeral degenerative change. Electronically signed by: Medardo Sneed MD 11/03/2023 01:04 AM EDT
[2023-11-02 22:23] VITALS: BP 106/56; PULSE 89; O2SAT 98
[2023-11-02 22:25] VITALS: BP 111/44; PULSE 66; RESP 20; TEMP 37.3; O2SAT 97; BMI 30.3
[2023-11-02 22:55] LABS: MANUAL DIFF FLAG NO
[2023-11-02 22:58] LABS: Basophils Percent Auto 0.3 % (0-2); Eosinophils Absolute Auto 0.2 X10*3/uL (0.0-0.4); Eosinophils Percent Auto 3.4 % (0-4); Hematocrit 25.4 % (37.0-47.0); Hemoglobin 7.8 g/dl (12.0-16.0); Imm Gran Abs Auto 0.03 X10*3/uL (0.00-0.03); Imm Gran Pct Auto 0.4 % (0.0-0.4); Lymphocytes Absolute Auto 0.6 X10*3/uL (1.2-4.9); Lymphocytes Percent Auto 8.7 % (20-40); Mean Corpuscular HGB Conc 30.7 g/dl (31.0-35.0); Mean Corpuscular Hemoglobin 26.9 pg (27.0-33.0); Mean Corpuscular Volume 87.6 fL (80.0-98.0); Monocytes Absolute Auto 0.1 X10*3/uL (0.1-1.2); Neutrophils Percent Auto 86.2 % (45-73); Platelet Count 259 X10*3/uL (160-400); Red Cell Distribution Width 19.3 % (11.0-16.0)
--- NOTE | 2023-11-02 23:02 | ED.GENADULT ---
HPI - General Adult General Chief complaint: General Medical Stated complaint: L sided chest pain, L shoulder/arm pain Time Seen by Provider: 11/02/23 22:48 Source: patient History of Present Illness HPI narrative: Patient is an 83-year-old female presenting to emergency department via EMS coming from [facility]. Patient has been experiencing pain to the diffuse left chest and left shoulder pain. Onset is unclear but she states that this happens when she experiences palpitations. At the current moment she denies having pain to her left chest but does endorse pain to the left shoulder. It is made worse with movement of the arm. She also reports having pain in her lower abdomen. She states that some of the nurses ?no had a give the injection so it does hurt?, referring to her Lovenox injections. She denies associated nausea vomiting or diarrhea. On review of her medical records from facility she had a recent hospitalization 10/18/2023 for acute decompensated heart failure preserved ejection fraction, and initial BNP of 5800, CT of the chest without evidence of PE dissection or aneurysm, echo obtained revealed LVEF 60-65% transitioned to furosemide 60 mg daily. Two days ago she had a 3 lb weight increase she received an additional dose of Lasix which brought her weight back down to baseline. She had a hospitalization at the end of September for upper GI bleed and severe anemia EGD revealing gastritis her Eliquis which she was started on for DVT of the left lower extremity was transitioned to Lovenox and she received multiple transfusions. Serum labs outpatient revealing hemoglobin 7.6 last weeks, back up to 8. Related Data Home Medications ?Medication ?Instructions ?Recorded ?Confirmed acetaminophen 500 mg capsule 500 mg PO Q6H PRN Pain 09/15/22 09/29/23 acetaminophen 500 mg tablet 500 mg PO BEDTIME 05/05/23 09/29/23 bisacodyl 10 mg rectal suppository 10 mg RI DAILY PRN Constipation 09/29/23 09/29/23 ferrous sulfate 325 mg (65 mg 325 mg PO MOWEFR 09/29/23 09/29/23 iron) tablet furosemide 20 mg tablet 60 mg PO DAILY 09/29/23 09/29/23 glucagon HCl 1 mg solution for 1 mg subcut Q20M PRN Hypoglycemia 09/29/23 09/29/23 injection (Glucagon (HCl) Emergency Kit) guaifenesin 100 mg/5 mL oral liquid 200 mg PO Q6H PRN Cough 09/29/23 09/29/23 ipratropium 0.5 mg-albuterol 3 mg 3 ml inhalation BID 09/29/23 09/29/23 (2.5 mg base)/3 mL nebulization soln ipratropium 0.5 mg-albuterol 3 mg 3 ml inhalation Q6H PRN Shortness 09/29/23 09/29/23 (2.5 mg base)/3 mL nebulization Of Breath Or Wheezing soln magnesium hydroxide 400 mg/5 mL 30 ml PO DAILY PRN Constipation 09/29/23 09/29/23 oral suspension (Milk of Magnesia) methotrexate sodium 2.5 mg tablet 20 mg PO PICKARD 09/29/23 09/29/23 oxycodone 5 mg tablet 2.5 mg PO Q8H PRN Pain 09/29/23 09/29/23 sertraline 25 mg tablet (Zoloft) 50 mg PO DAILY 09/29/23 09/29/23 simvastatin 20 mg tablet 20 mg PO BEDTIME 09/29/23 09/29/23 sodium phosphates 19 gram-7 118 ml RI DAILY PRN Constipation 09/29/23 09/29/23 gram/118 mL enema (Fleet Enema) Previous Rx's ?Medication ?Instructions ?Recorded blood sugar diagnostic #250 ea 07/29/21 blood-glucose meter (OneTouch #1 ea 07/29/21 Ultra2 Meter kit) Hospital bed #1 ea 09/16/21 metoprolol tartrate 25 mg tablet 12.5 mg (1/2 x 25 mg) PO BID 90 07/26/22 days #90 tabs [facility] mattress #1 ea 08/10/22 blood sugar diagnostic (OneTouch #100 ea 12/01/22 Ultra Test strips) blood-glucose meter #1 ea 12/01/22 lancets #100 ea 12/01/22 INR strips ACELIS #60 ea 03/11/23 prothrombin time test strips #48 ea 03/11/23 enoxaparin 80 mg/0.8 mL 70 mg (0.7 mL) subcut Q12H #1 mL 10/10/23 subcutaneous syringe omeprazole 20 mg capsule,delayed 20 mg PO BID #30 caps 10/10/23 release Allergies Allergy/AdvReac Type Severity Reaction Status Date / Time shellfish derived Allergy Unknown itchy Verified 11/02/23 22:44 procaine [From Novocain] AdvReac Unknown makes Verified 11/02/23 22:44 patient itchy,puffy Review of Systems Review of Systems: Yes all other systems are reviewed and are negative [facility] Past Medical History Attestation statement: The following information was validated with the patient. Source: old records reviewed Medical History CHF (congestive heart failure) Influenza A Persistent atrial fibrillation Chronic hypoxemic respiratory failure Rash Constipation Impaired mobility and ADLs Pulmonary hypertension Chronic diastolic (congestive) heart failure Pancytopenia Congestive heart failure Pulmonary hypertension Nonrheumatic aortic valve stenosis CHF exacerbation Acute pyelonephritis Chronic anticoagulation Pneumonia (HFpEF) heart failure with preserved ejection fraction Sepsis Lumbar vertebral fracture CVA (cerebral vascular accident) TIA (transient ischemic attack) Uterine cancer Anxiety and depression Obesity (BMI 30-39.9) Rheumatoid arthritis Hypercholesterolemia Hypertension Atrial fibrillation Type 2 diabetes mellitus with hyperglycemia Surgical History Status post transcatheter aortic valve replacement History of transcatheter aortic valve replacement (TAVR) (~06/19/21) History of colonoscopy History of appendectomy History of right knee joint replacement History of left knee replacement S/P ANTONIO-BSO Family History Family History Father Diabetes CAD (coronary artery disease) Mother Diabetes Hypertension Perforated ulcer Sister Diabetes Social History Social History Household Members: Other Housing: Snf Housing Other:: lives with spouse Do you presently have visiting nurse or other home services: Yes Alcohol intake: never Comment: 1:1 sitter Patient Tobacco Use Status: Former Tobacco user Smoked in Last 30 Days: No e-Cigarette/Vaping Use: Never Used Second Hand Smoke Exposure: No Use of substances other than those prescribed or required for medical reasons: No Advance Directives: Yes Advance Directives on File: Yes Advance Directives Date on File: 09/03/21 service: No Current occupational status: retired 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 No acute distress.?Normal affect. Eyes: Pupils equal, round and reactive to light.? ENT: Pharynx normal.?? Neck: Normal inspection.? Neck supple.?? CVS: Heart sounds normal. Normal heart rate and rhythm.? Pulses normal.?? Respiratory: No respiratory distress.? Lung sounds with rales bilaterally Abdomen: Soft with diffuse mild tenderness across the lower abdomen with ecchymosis likely consistent with her Lovenox injection sites. In the left lower quadrant there is a palpable induration I suspect a localized reaction/abdominal wall hematoma from Lovenox injections measuring 5 cm-2 cm has no tenderness of hand deep palpation of the abdomen.. Normoactive bowel sounds. No pulsatile mass.?? Skin: Skin warm and dry.? Normal skin color.? Extremities: Edema to bilateral lower extremity Neuro: Moves all extremities spontaneously. Sensation intact bilaterally. No focal neuro deficits. Course Reevaluation(s) Reevaluation #1: Pulmonary vascular congestion on CXR comparable to prior without pleural effusions or overt edema. Suspect pain to left shoulder likely due to osteoarthritis. Remains in no respiratory distress. Received acetaminophen for left shoulder pain with improvement. Medications Administered Discontinued Medications Generic Name Dose Route Start Last Admin Trade Name Freq PRN Reason Stop Dose Admin Acetaminophen 975 mg 11/02/23 23:57 11/03/23 00:34 Acetaminophen 325 Mg Tablet PO 11/02/23 23:58 975 mg ONCE ONE Administration Medical Decision Making Medical Decision Making MDM Narrative: Patient is an 83-year-old female with past medical history of heart failure with preserved EF, atrial fibrillation, DVT on anticoagulants with Lovenox, prosthetic heart valve secondary to aortic stenosis-TAVR 06/2023 CVA, hypertension, hyperlipidemia, pulmonary hypertension, RA, TIA, GIB presenting today for evaluation of recent chest pain and left shoulder pain as per HPI. At the time my evaluation denies having chest pain but does admit to persistent shoulder pain. Will obtain CBC to evaluate for leukocytosis/ anemia, CMP and lipase to evaluate for abnormal electrolytes /abnormal renal function/ abnormal hepatic/biliary function, EKG and troponin to evaluate for ischemia/ACS. Chest x-ray to evaluate for consolidation/ infiltrate/ mass/ pulmonary congestion and Urinalysis. Differential Diagnosis Differential Diagnoses: The differential diagnosis associated with the presentation includes (ACS, pneumonia, osteoarthritis of the shoulder, CHF exacerbation, anemia) Admission/Observation Consideration of admission/observation: Escalation of care including admission/observation considered Lab Data MDM Lab Attestation statement: I reviewed the patient's lab results. CBC is without leukocytosis, microcytic anemia with hemoglobin 7.8 and hematocrit 25.4, no thrombocytopenia. No electrolyte derangement. BUN chronically elevated, consistent with baseline, creatinine within normal range. BNP 363 appears consistent with prior levels. High sensitive troponin 12.9 11/02/23 22:50 11/02/23 22:50 Labs: Lab Results 11/02/23 Range/Units 22:50 WBC 7.0 (4.8-10.8) X10*3/uL RBC 2.90 L (4.20-5.50) X10*6/uL Hgb 7.8 L (12.0-16.0) g/dl Hct 25.4 L (37.0-47.0) % MCV 87.6 (80.0-98.0) fL MCH 26.9 L (27.0-33.0) pg MCHC 30.7 L (31.0-35.0) g/dl RDW 19.3 H (11.0-16.0) % Plt Count 259 D (160-400) X10*3/uL MPV 10.0 (9.4-12.3) fL Immature Gran % (Auto) 0.4 (0.0-0.4) % Neut % (Auto) 86.2 H (45-73) % Lymph % (Auto) 8.7 L (20-40) % [place] % (Auto) 1.0 L (2-11) % Eos % (Auto) 3.4 (0-4) % Baso % (Auto) 0.3 (0-2) % Lymph # (Auto) 0.6 L (1.2-4.9) X10*3/uL [place] # (Auto) 0.1 (0.1-1.2) X10*3/uL Eos # (Auto) 0.2 (0.0-0.4) X10*3/uL Baso # (Auto) 0.0 (0.0-0.2) X10*3/uL Abs Immat Gran (auto) 0.03 (0.00-0.03) X10*3/uL Absolute Neuts (auto) 6.0 (2.0-8.3) x10*3/uL Absolute Nucleated RBC 0.000 (0.0-0.012) X10*3/uL Nucleated RBC % (auto) 0.0 (0.0-0.2) /100WBC Sodium 140 (135-145) mmol/L Potassium 3.5 (3.3-5.1) mmol/L Chloride 100 (96-108) mmol/L Carbon Dioxide 31 H (22-29) mmol/L Anion Gap 13 (12-20) BUN 29 H (9-16) mg/dL Creatinine 0.74 (0.5-1.4) mg/dL Estim Creat Clear Calc 50.3 Estimated GFR > 60 Random Glucose 120 H (60-115) mg/dL Calcium 8.6 (8.4-10.2) mg/dL Total Bilirubin 0.5 (0.0-1.0) mg/dL AST 19 (5-31) U/L ALT 7 (0-31) U/L Alkaline Phosphatase 90 (39-117) U/L Troponin I High Sens 12.9 (<3.5-17.0) ng/L B-Natriuretic Peptide 363 H (<100) pg/mL Total Protein 6.6 (6.5-8.0) g/dL Albumin 2.6 L (3.5-5.0) g/dL Independent Interpretation I performed an independent interpretation of an: EKG and Plain X-Ray (Pulmonary vascular congestion is appears consistent to prior CXR. No hypoxia, no dyspnea) Interpretation: Rate: 75 Rhythm:? Atrial fibrillation, right BBB?? ST T wave :??No ST elevation, no ST depression qTC: 431 prior studies: 09/29/2023; appears unchanged? The study has been interpreted contemporaneously by me. Radiology Impression Discussion of test interpretation with radiology: I have reviewed the radiologist's reading. Radiologist Impression: XR/XR chest 2V IMPRESSION: Pulmonary vascular congestion. Atelectasis or scarring at the left lung base. Bilateral glenohumeral degenerative change. Independent Historian Clinical information obtained from an independent historian. History obtained from or confirmed by: EMS External Record Review External record reviewed: Outpatient record Discharge Plan Discharge Clinical Impression: Osteoarthritis of left shoulder Patient Disposition: [facility] Transfer Details: [facility] Additional Instructions: Chest x-ray and BNP not consistent with acute CHF exacerbation. Troponin and EKG not consistent with ACS. Imaging reveals degenerative arthritis of the bilateral glenohumeral joints. Assure rotation of the Lovenox injection sites, avoiding the indurated area that is tender. Prescriptions: No Action (DME) Hospital bed See Rx Instructions .Route .MEDSUPPLY Qty: 1 0RF Rx Instructions: As directed metoprolol tartrate 25 mg tablet 12.5 mg PO BID 90 Days Qty: 90 2RF (DME) hospital mattress See Rx Instructions .Route .MEDSUPPLY Qty: 1 0RF Rx Instructions: As directed ([facility]) blood-glucose meter Kit See Rx Instructions .ROUTE .MEDSUPPLY Qty: 1 0RF Rx Instructions: As directed check the blood sugar once a day ([facility]) OneTouch Ultra Test Strip See Rx Instructions .ROUTE .MEDSUPPLY Qty: 100 3RF Rx Instructions: As directed check the blood sugar once a day (DME) lancets Misc See Rx Instructions .ROUTE .MEDSUPPLY Qty: 100 0RF Rx Instructions: As directed check the blood sugar once a day (DME) prothrombin time test strips Strip See Rx Instructions .Route Qty: 48 12RF Rx Instructions: As directed (DME) INR strips ACELIS See Rx Instructions .Route .MEDSUPPLY Qty: 60 12RF Rx Instructions: As directed acetaminophen 500 mg Tablet 500 mg PO BEDTIME ipratropium-albuterol 0.5 mg-3 mg(2.5 mg base)/3 mL solution for nebulization 3 ml inhalation Q6H PRN (Reason: Shortness Of Breath Or Wheezing) ipratropium-albuterol 0.5 mg-3 mg(2.5 mg base)/3 mL solution for nebulization 3 ml inhalation BID guaifenesin 100 mg/5 mL Liquid 200 mg PO Q6H PRN (Reason: Cough) magnesium hydroxide [Milk of Magnesia] 400 mg/5 mL Suspension 30 ml PO DAILY PRN (Reason: Constipation) methotrexate sodium 2.5 mg tablet 20 mg PO PICKARD bisacodyl 10 mg Suppository 10 mg RI DAILY PRN (Reason: Constipation) ferrous sulfate 325 mg (65 mg iron) Tablet 325 mg PO MOWEFR Fleet Enema 19-7 gram/118 mL Enema 118 ml RI DAILY PRN (Reason: Constipation) furosemide 20 mg tablet 60 mg PO DAILY oxycodone 5 mg tablet 2.5 mg PO Q8H PRN (Reason: Pain) glucagon HCl [Glucagon (HCl) Emergency Kit] 1 mg Recon Soln 1 mg SUBCUT Q20M PRN (Reason: Hypoglycemia) Rx Instructions: until target blood sugar attained simvastatin 20 mg tablet 20 mg PO BEDTIME sertraline [Zoloft] 25 mg tablet 50 mg PO DAILY enoxaparin 80 mg/0.8 mL Syringe 70 mg subcut Q12H Qty: 1 0RF omeprazole 20 mg capsule,delayed release(DR/EC) 20 mg PO BID Qty: 30 0RF (DME) blood-glucose meter [OneTouch Ultra2 Meter] Kit See Rx Instructions .ROUTE .MEDSUPPLY Qty: 1 0RF Rx Instructions: As directed check the blood sugar once a day (DME) blood sugar diagnostic Strip See Rx Instructions .ROUTE .MEDSUPPLY Qty: 250 3RF Rx Instructions: Twice a day acetaminophen 500 mg capsule 500 mg PO Q6H PRN (Reason: Pain) Print Language: Pashto
[2023-11-02 23:10] LABS: Alanine Aminotransferase 7 U/L (0-31); Albumin Level 2.6 g/dL (3.5-5.0); Alkaline Phosphatase 90 U/L (39-117); Anion Gap 13 (12-20); Aspartate Amino Transferase 19 U/L (5-31); Bilirubin Total 0.5 mg/dL (0.0-1.0); Blood Urea Nitrogen 29 mg/dL (9-16); Calcium 8.6 mg/dL (8.4-10.2); Carbon Dioxide 31 mmol/L (22-29); Chloride 100 mmol/L (96-108); Creatinine Clr Calc Pharmacy 50.3; Estimated Glomerular Filt Rate > 60; Glucose Random 120 mg/dL (60-115); Potassium 3.5 mmol/L (3.3-5.1); Sodium 140 mmol/L (135-145); Total Protein 6.6 g/dL (6.5-8.0)
[2023-11-02 23:16] LABS: B Type Natriuretic Peptide 363 pg/mL (<100); Troponin-I High Sensitivity 12.9 ng/L (<3.5-17.0)
[2023-11-03] VITALS: BP 108/43; PULSE 66; RESP 20; TEMP 36.8; O2SAT 98
[2023-11-03] MEDS: Acetaminophen 325 MG TABLET 975 MG PO (00:34)
[2023-11-03 01:43] VITALS: BP 92/46; PULSE 67; RESP 23; TEMP 36.9; O2SAT 98
[2023-11-03 03:38] VITALS: BP 96/58; PULSE 68; RESP 20; TEMP 36.7; O2SAT 97
--- NOTE | 2023-11-03 03:41 | PC.NURSE ---
Report given to Max at [facility], Pt will be transported back to via ambulance, Pt aware of plan.
== END 2023-11-03 03:50 ==
PROVIDERS: Emergency Provider Emergency Medicine
DX: M25.512 Pain in left shoulder (principal); R07.89 Other chest pain; R06.02 Shortness of breath; Z79.899 Other long term (current) drug therapy; Z87.891 Personal history of nicotine dependence
CPT/HCPCS: 36415; 71046; 80053; 83880; 84484; 85025; 93005; 99283; 99284